=== PATIENT | female | born 1985 | race Caucasian/White ===

== ENCOUNTER 2023-04-07 09:56 | Outpatient (OUT) | payer OTHER, SELFPAY ==
[2023-04-07 11:02] LABS: Anion Gap 13.4; BUN Creatinine Ratio 9.9; Carbon Dioxide 24.7 mmol/L (21.0-32.0); Chloride 103 mmol/L (98-107); Estimated GFR (African America >60 (>=60); Estimated GFR (Non-African Ame >60 (>=60); Free T3 2.96 pg/mL (2.18-3.98); Glucose 131 mg/dL (74-106); Potassium 4.1 mmol/L (3.5-5.1); Sodium 137 mmol/L (136-145); Thyroid Stimulating Hormone 2.016 uIU/mL (0.358-3.740)
[2023-04-07 12:05] LABS: Free T4 0.93 ng/dL (0.76-1.46)
[2023-04-13 00:08] LABS: Metanephrine, Pl 24.5 pg/mL (0.0-88.0); Normetanephrine, Pl 54.8 pg/mL (0.0-210.1)
== END 2023-04-07 09:57 ==
PROVIDERS: PCP Nurse Practitioner Family; Visit Provider Internal Medicine
DX: E05.90 Thyrotoxicosis, unspecified without thyrotoxic crisis or storm (principal); R94.6 Abnormal results of thyroid function studies; R61 Generalized hyperhidrosis; R53.83 Other fatigue
CPT/HCPCS: 36415; 80048; 83519; 83835; 84439; 84443; 84481

== ENCOUNTER 2023-04-08 09:46 | Outpatient (REF) | payer OTHER, SELFPAY ==
[2023-04-08 12:29] LABS: Creatinine Urine Random 36.05 mg/dL (20.00-300.00)
[2023-04-08 12:38] LABS: Creatinine 24 Hour Urine 558.78 mg/24 hr (800.00-1800.00); Total Volume 24 Hour Urine 1550 mL/24hr
== END 2023-04-08 09:47 ==
LOC: LAB 09:46
PROVIDERS: PCP Nurse Practitioner Family; Visit Provider Nurse Practitioner Family
DX: E05.90 Thyrotoxicosis, unspecified without thyrotoxic crisis or storm (principal); R94.6 Abnormal results of thyroid function studies; R61 Generalized hyperhidrosis; R53.83 Other fatigue
CPT/HCPCS: 36415; 82570; 83497

== ENCOUNTER 2023-07-05 19:48 | Emergency (ER) | payer OTHER, SELFPAY ==
[2023-07-05 19:52] VITALS: BP 129/81; PULSE 79; RESP 16; TEMP 36.7; O2SAT 98; BMI 35.9
--- NOTE | 2023-07-05 20:07 | ECG_ITS ---
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
--- NOTE | 2023-07-05 20:08 | ED_ITS ---
HPI - General Adult General Chief complaint: Extremity Injury, Upper Stated complaint: upper pain Time Seen by Provider: 07/05/23 19:52 Source: patient Mode of arrival: walk-in History of Present Illness HPI narrative: patient is a 38-year-old female who presents to the emergency department for the evaluation of discomfort in the left upper and lateral breast. She states she noticed after getting out of the bathtub tonight that the skin to the left upper and outer breast felt like a wire and she feels the skin is puckered of the breast. She has not had any redness, swelling, drainage. No fevers or vomiting. She states the pain extends through the breast, onto the muscle of the chest. 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 no medications taken prior to arrival. She denies any significant pain. Related Data Previous Rx's Medication Instructions Recorded ketorolac 10 mg tablet 10 mg PO TID PRN pain #10 tabs 07/05/23 Allergies Allergy/AdvReac Type Severity Reaction Status Date / Time adhesive tape Allergy Severe Verified 07/05/23 19:58 Review of Systems ROS Constitutional Denies: fever or chills Ears, nose, mouth, and throat Denies: throat pain Cardiovascular Denies: chest pain Respiratory Denies: shortness of breath or cough Gastrointestinal Denies: nausea or vomiting Musculoskeletal Denies: neck pain Integumentary/Breast Denies: rash Endocrine Denies: excessive urination Hematologic/Lymphatic Denies: easy bruising Exam Narrative Exam Narrative: Gen.: Awake, alert, in no distress Head: Normocephalic, atraumatic ENT: Moist mucous membranes Respiratory: No respiratory distress; left breast examined with no erythema, induration. No palpable masses or visible puckering of the skin. No tenderness to palpation, no rashes or color change noted under the left breast on the chest wall. Extremities: Moves extremities equally Psych: Normal mood and affect Neuro: No focal neuro deficit Skin: Warm, dry, intact Constitutional Vital Signs, click to edit/add: Last Vital Signs Temp 98.0 F 07/05/23 19:52 Pulse 79 07/05/23 19:52 Resp 16 07/05/23 19:52 BP 129/81 07/05/23 19:52 Pulse Ox 98 07/05/23 19:52 O2 Del Method Room Air 07/05/23 19:52 Course Vital Signs Vital signs: Vital Signs Temperature 98.0 F 07/05/23 19:52 Pulse Rate 79 07/05/23 19:52 Respiratory Rate 16 07/05/23 19:52 Blood Pressure 129/81 07/05/23 19:52 Pulse Oximetry 98 07/05/23 19:52 Oxygen Delivery Method Room Air 07/05/23 19:52 Temperature 98.0 F 07/05/23 19:52 Pulse Rate 79 07/05/23 19:52 Respiratory Rate 16 07/05/23 19:52 Blood Pressure 129/81 07/05/23 19:52 Pulse Oximetry 98 07/05/23 19:52 Oxygen Delivery Method Room Air 07/05/23 19:52 Medical Decision Making MDM Narrative Medical decision making narrative: patient with unremarkable EKG and lab work. Examination of breast tissue with no evidence of puckering or mastitis at this time. As patient was diagnosed with mondor's disease in the past similarly, I will start her on anti-inflammatories in case she has developed a superficial thrombophlebitis. She was made aware that if she continues to have abnormal sensation or puckering of the left breast, she needs close follow-up with her PCP her mechanical unit repairer to have a mammogram performed. Return to the Emergency Room if symptoms change or worsen Medical Records Medical records reviewed: Yes I reviewed the patient's medical records Lab Data Lab results reviewed: Yes I reviewed the patient's lab results Labs: Lab Results 07/05/23 Range/Units 20:14 WBC 9.5 (4.0-11.0) 10^3/uL RBC 4.77 (4.20-5.40) 10^6/uL Hgb 13.9 (12.0-16.0) g/dL Hct 41.0 (36.0-48.0) % MCV 86.0 (81.0-99.0) fL MCH 29.1 (26.7-34.0) pg MCHC 33.9 (29.9-35.2) g/dL RDW 12.8 (11.0-15.0) % Plt Count 224 (150-450) 10^3/uL MPV 10.5 (9.5-13.5) fL Neut % (Auto) 51.9 (43.0-75.0) % Lymph % (Auto) 40.5 (20.5-60.0) % [place] % (Auto) 5.9 (1.7-12.0) % Eos % (Auto) 1.1 (0.9-7.0) % Baso % (Auto) 0.4 (0.2-2.0) % Neut # (Auto) 4.9 (1.4-6.5) 10^3/uL Lymph # (Auto) 3.8 (1.2-3.8) 10^3/uL [place] # (Auto) 0.6 (0.3-0.8) 10^3/uL Eos # (Auto) 0.1 (0.0-0.7) 10^3/uL Baso # (Auto) 0.0 (0.0-0.1) 10^3/uL Abs Immat Gran (auto) 0.02 (0.00-0.03) 10^3/uL Imm/Tot Granulo (auto) 0.2 (0.0-0.5) % Sodium 140 (136-145) mmol/L Potassium 3.7 (3.5-5.1) mmol/L Chloride 104 (98-107) mmol/L Carbon Dioxide 24.0 (21.0-32.0) mmol/L Anion Gap 15.7 BUN 12.0 (7.0-18.0) mg/dL Creatinine 0.84 (0.55-1.02) mg/dL Est GFR ( Amer) >60 (>=60) Est GFR (Non-Af Amer) >60 (>=60) BUN/Creatinine Ratio 14.3 Glucose 115 H (74-106) mg/dL Calcium 9.4 (8.5-10.1) mg/dL Total Bilirubin 0.3 (0.2-1.0) mg/dL AST 14 L (15-37) U/L ALT 34 (14-59) U/L Alkaline Phosphatase 90 (46-116) U/L Troponin I High Sens <4.0 L (4.0-51.3) pg/mL Total Protein 7.2 (6.4-8.2) g/dL Albumin 3.8 (3.4-5.0) g/dL Globulin 3.4 g/dL Albumin/Globulin Ratio 1.1 ECG Data Attestation: I personally reviewed and interpreted this ECG as follows: (normal sinus rhythm at a rate of seventy-eight, no acute ST elevation or ectopy. EKG reviewed by attending physician) Discharge Plan Discharge Chief Complaint: Extremity Injury, Upper Clinical Impression: Breast pain, left Patient Disposition: Home, Self-Care Time of Disposition Decision: 21:06 Condition: Good Prescriptions / Home Meds: New ketorolac 10 mg tablet 10 mg PO TID PRN (Reason: pain) Qty: 10 0RF Additional Instructions: Take antiinflammatories and follow up with your PCP or mechanical unit repairer Stand Alone Forms: Portal Instructions Referrals: CONCHITA ORTIZ [Primary Care Provider] - 1 week Discharge Date/Time: 07/05/23 21:18
--- NOTE | 2023-07-05 20:09 | PC.NURSE ---
pt presents to ED because pt states 10 years ago she had something called mondors but was at the time so they didn't do anything to treat it. pt states that today she felt a wire like feeling across the left side of the left breast, and pt states it looks similar to when she had mondors. pt doesn't have yearly mammograms done. no bruising, swelling, or redness noted to the left breast.
[2023-07-05 20:25] LABS: Basophils Percent Auto 0.4 % (0.2-2.0); Eosinophils Absolute Auto 0.1 10^3/uL (0.0-0.7); Eosinophils Percent Auto 1.1 % (0.9-7.0); Hemoglobin 13.9 g/dL (12.0-16.0); Immature Granulocytes Abs Auto 0.02 10^3/uL (0.00-0.03); Immature Granulocytes Pct Auto 0.2 % (0.0-0.5); Lymphocytes Absolute Auto 3.8 10^3/uL (1.2-3.8); Lymphocytes Percent Auto 40.5 % (20.5-60.0); Mean Corpuscular HGB Conc 33.9 g/dL (29.9-35.2); Mean Corpuscular Hemoglobin 29.1 pg (26.7-34.0); Mean Platelet Volume 10.5 fL (9.5-13.5); Monocytes Absolute Auto 0.6 10^3/uL (0.3-0.8); Monocytes Percent Auto 5.9 % (1.7-12.0); Neutrophils Absolute Auto 4.9 10^3/uL (1.4-6.5); Neutrophils Percent Auto 51.9 % (43.0-75.0); Platelet Count 224 10^3/uL (150-450); Red Blood Count 4.77 10^6/uL (4.20-5.40); Red Cell Distribution Width 12.8 % (11.0-15.0); White Blood Count 9.5 10^3/uL (4.0-11.0)
[2023-07-05 20:52] LABS: Alanine Aminotransferase 34 U/L (14-59); Albumin Globulin Ratio 1.1; Albumin Level 3.8 g/dL (3.4-5.0); Alkaline Phosphatase 90 U/L (46-116); Anion Gap 15.7; Aspartate Amino Transferase 14 U/L (15-37); BUN Creatinine Ratio 14.3; Bilirubin Total 0.3 mg/dL (0.2-1.0); Calcium 9.4 mg/dL (8.5-10.1); Chloride 104 mmol/L (98-107); Estimated GFR (African America >60 (>=60); Estimated GFR (Non-African Ame >60 (>=60); Globulin 3.4 g/dL; Glucose 115 mg/dL (74-106); Potassium 3.7 mmol/L (3.5-5.1); Sodium 140 mmol/L (136-145); Total Protein 7.2 g/dL (6.4-8.2); Troponin I High Sensitivity <4.0 pg/mL (4.0-51.3)
== END 2023-07-05 21:18 | disposition home or self-care (01) ==
PROVIDERS: Physician Assistant; Emergency Provider Internal Medicine; PCP Nurse Practitioner Family
DX: N64.4 Mastodynia (principal); Z90.710 Acquired absence of both cervix and uterus; I80.8 Phlebitis and thrombophlebitis of other sites
CPT/HCPCS: 36415; 80053; 84484; 85025; 93005; 99284

== ENCOUNTER 2023-07-11 08:56 | Outpatient (OUT) | payer OTHER, SELFPAY ==
--- NOTE | 2023-07-11 09:08 | US_ITS ---
Patient: NOBLE CASTILLO Exam Date: 07/11/2023 : 1985 Gender:F Ordering : CONCHITA ORTIZ Admission #: [id number] Family : Order #: [id number] CLICK HERE TO VIEW EXAM RADIOLOGY REPORT PROCEDURE: US BREAST LT LIMITED COMPARISON: None. INDICATIONS: Mass Of Upper Outer Quadrant Of Left Breast N63.21 TECHNIQUE: Breast ultrasound was performed, with evaluation focusing only on specific areas of concern. FINDINGS: DIAGNOSTIC CATEGORY 0--INCOMPLETE: NEED ADDITIONAL IMAGING EVALUATION. Ultrasound of the left breast demonstrates normal fibroglandular tissue. Identified in the lower outer quadrant just below the skin surface is a 2.0 x 0.2 cm oval irregular area of hypo echogenicity without definitive color flow. This could represent a dilated duct. Bilateral diagnostic mammogram is recommended for further evaluation RECOMMENDATIONS: ADDITIONAL MAMMOGRAPHIC VIEWS REQUIRED: BILATERAL BREASTS - diagnostic mammogram PLEASE NOTE: A NORMAL ULTRASOUND EXAMINATION DOES NOT EXCLUDE THE POSSIBILITY OF BREAST CANCER. A CLINICALLY SUSPICIOUS PALPABLE LUMP SHOULD BE BIOPSIED. Dictated by: Kit Samuels MD on 07/11/2023 at 10:41 Approved by: Kit Samuels MD on 07/11/2023 at 10:43
== END 2023-07-11 08:57 | disposition home or self-care (01) ==
LOC: US 08:56
PROVIDERS: PCP Nurse Practitioner Family; Visit Provider Nurse Practitioner Family
DX: N63.21 Unspecified lump in the left breast, upper outer quadrant (principal)
CPT/HCPCS: 76642

== ENCOUNTER 2023-07-13 10:45 | Outpatient (OUT) | payer OTHER, SELFPAY ==
--- NOTE | 2023-07-13 | MM_ITS ---
Patient: NOBLE CASTILLO Exam Date: 07/13/2023 : 1985 Gender:F Ordering : CONCHITA ORTIZ Admission #: [id number] Family : Order #: [id number] CLICK HERE TO VIEW EXAM RADIOLOGY REPORT PROCEDURE: MM TOMOSYNTHESIS DIAGNOSTIC BI COMPARISON: US BREAST LT LIMITED, 07/11/2023. INDICATIONS: Breast Mass Calculator Name NCI Breast Cancer Risk Assessment Tool 5 Year Breast Cancer Risk 0.40% Lifetime Breast Cancer Risk 9.20% Personal Breast Cancer No Personal Ovarian Cancer No Treatments None Family Cancers Mother with cervical cancer at age 35; Mother with lung cancer at age 53; Aunt-maternal with cervical cancer at age ~35. LOCATION: The [facility] BREAST COMPOSITION: Scattered areas fibroglandular density. FINDINGS: DIAGNOSTIC CATEGORY 2--BENIGN FINDING: Scattered benign-appearing calcifications are present. Scattered benign-appearing lymph nodes are present. RIGHT BREAST: No significant suspicious finding. LEFT BREAST: No significant suspicious finding. No mammographic abnormality to correspond to the patient's palpable abnormality demarcated with a triangle marker lower outer quadrant, anterior breast. Previous ultrasound demonstrated no abnormality in this region. Further evaluation should be based on clinical and physical exam. RECOMMENDATIONS: CLINICAL EVALUATION. PLEASE NOTE: A NORMAL MAMMOGRAM DOES NOT EXCLUDE THE POSSIBILITY OF BREAST CANCER. A CLINICALLY SUSPICIOUS PALPABLE LUMP SHOULD BE BIOPSIED. Dictated by: Kit Samuels MD on 07/13/2023 at 11:29 Approved by: Kit Samuels MD on 07/13/2023 at 11:36
== END 2023-07-13 10:46 | disposition home or self-care (01) ==
LOC: MAMMO 10:45
PROVIDERS: PCP Nurse Practitioner Family; Visit Provider Nurse Practitioner Family
DX: N63.21 Unspecified lump in the left breast, upper outer quadrant (principal)
CPT/HCPCS: 77066; G0279

== ENCOUNTER 2023-07-23 15:36 | Emergency (ER) | payer OTHER, SELFPAY ==
[2023-07-23 15:41] VITALS: BP 127/74; PULSE 74; RESP 16; TEMP 36.6; O2SAT 97; BMI 36.0
--- NOTE | 2023-07-23 15:49 | ED.FEMALEGU1 ---
HPI - Female Genitourinary General Chief complaint: Urogenital-Female Stated complaint: YEAST INFECTION Time Seen by Provider: 07/23/23 15:36 Source: patient Mode of arrival: walk-in History of Present Illness HPI Narrative: patient is a 38-year-old female who presents to the emergency department for yeast infection. She states that she finished doxycycline earlier this week and developed irritation and discharge of the vaginal area. She has had similar yeast infections in the past. She states typically clears up with Monistat, she has tried this twice without improvement. She is not concern for STD exposure. She denies fevers, chills, nausea, vomiting, abdominal pain. No urinary symptoms. Related Data Previous Rx's Medication Instructions Recorded ketorolac 10 mg tablet 10 mg PO TID PRN pain #10 tabs 07/05/23 fluconazole 150 mg tablet 150 mg PO DAILY 2 days #2 tabs 07/23/23 (Diflucan) Allergies Allergy/AdvReac Type Severity Reaction Status Date / Time adhesive tape Allergy Severe Verified 07/05/23 19:58 Review of Systems ROS Constitutional Denies: fever or chills Cardiovascular Denies: chest pain Respiratory Denies: shortness of breath or cough Gastrointestinal Denies: abdominal pain, nausea or vomiting Musculoskeletal Denies: back pain Integumentary/Breast Denies: rash Hematologic/Lymphatic Denies: easy bruising Exam Narrative Exam Narrative: Gen.: Awake, alert, in no distress Head: Normocephalic, atraumatic ENT: Moist mucous membranes Respiratory: No respiratory distress Gastrointestinal: Abdomen is soft, nondistended and nontender to palpation Extremities: Moves extremities equally Psych: Normal mood and affect Neuro: No focal neuro deficit Skin: Warm, dry, intact Constitutional Vital Signs, click to edit/add: Last Vital Signs Temp 97.8 F 07/23/23 15:41 Pulse 74 07/23/23 15:41 Resp 16 07/23/23 15:41 BP 127/74 07/23/23 15:41 Pulse Ox 97 07/23/23 15:41 O2 Del Method Room Air 07/23/23 15:41 Course Vital Signs Vital signs: Vital Signs Temperature 97.8 F 07/23/23 15:41 Pulse Rate 74 07/23/23 15:41 Respiratory Rate 16 07/23/23 15:41 Blood Pressure 127/74 07/23/23 15:41 Pulse Oximetry 97 07/23/23 15:41 Oxygen Delivery Method Room Air 07/23/23 15:41 Temperature 97.8 F 07/23/23 15:41 Pulse Rate 74 07/23/23 15:41 Respiratory Rate 16 07/23/23 15:41 Blood Pressure 127/74 07/23/23 15:41 Pulse Oximetry 97 07/23/23 15:41 Oxygen Delivery Method Room Air 07/23/23 15:41 MDM - Female Genitourinary MDM Narrative Medical decision making narrative: patient treated based on clinical history, Diflucan given in the Emergency Room patient will be prescribed an additional two days of Diflucan. Follow-up with PCP and return to the Emergency Room if symptoms change or worsen Medical Records Attestation: I reviewed the patient's medical records. Discharge Plan Discharge Chief Complaint: Urogenital-Female Clinical Impression: Candidiasis of vagina Patient Disposition: Home, Self-Care Time of Disposition Decision: 15:48 Condition: Good Prescriptions / Home Meds: New fluconazole [Diflucan] 150 mg tablet 150 mg PO DAILY 2 Days Qty: 2 0RF Rx Instructions: administer on day 1 of therapy No Action ketorolac 10 mg tablet 10 mg PO TID PRN (Reason: pain) Qty: 10 0RF Instructions: Yeast Infection (ED) Stand Alone Forms: Portal Instructions Referrals: CONCHITA ORTIZ [Primary Care Provider] - 1 week
[2023-07-23] MEDS: FLUCONAZOLE 150 MG TABLET PO (15:56)
[2023-07-23 16:01] VITALS: BP 109/70; PULSE 76; RESP 16; O2SAT 99
== END 2023-07-23 16:04 | disposition home or self-care (01) ==
PROVIDERS: Emergency Provider Emergency Medicine; PCP Nurse Practitioner Family
DX: B37.31 Acute candidiasis of vulva and vagina (principal)
CPT/HCPCS: 99283

== ENCOUNTER 2023-09-28 10:21 | Outpatient (OUT) | payer OTHER, SELFPAY ==
--- NOTE | 2023-09-28 | XR_ITS ---
The [address] [address] Patient Name: NOBLE CASTILLO MRN: [facility]:[id number] date: 1985 Sex: F Assigned Patient Location: [facility] Current Patient Location: Accession/Order Number: [id number] Exam Date: 09/28/2023 10:28 Report Date: 09/30/2023 09:58 At the request of: FABIENNE WALL Procedure: XR foot AIDA min 3V STUDY: XR foot AIDA min 3V, [id number] HISTORY: BILATERAL FOOT PAIN COMPARISON: Bilateral foot x-rays 07/07/2022. FINDINGS: Right foot: No acute fracture, dislocation, or suspicious osseous lesion. 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 First metatarsophalangeal angle (normal less than or equal to 15 degrees) -18 degrees Calcaneal pitch angle (normal 20-30 degrees): -21 degrees (previously 13 degrees on 07/07/2022). Left foot: No acute fracture, dislocation, or suspicious osseous lesion. Left foot podiatric hardware is intact and similar alignment compared with 07/07/2021. Lucency at the bone hardware interface involving a transmetatarsal screw extending across the bases of the first and second metatarsal is similar. There is complete bony bridging at the calcaneal arthrodesis. Increased bony bridging at the first tarsometatarsal joint (difficult to tell if the ankylosis is complete). Moderate osteophytosis at the dorsal talonavicular joint, mildly worse. Moderate Achilles insertional enthesopathy, similar. First metatarsophalangeal angle (normal less than or equal to 15 degrees) -28 degrees Calcaneal pitch angle (normal 20-30 degrees): -20 degrees IMPRESSION: 1. Similar appearance of the left foot hardware. 2. Increased bony bridging at the fused left first tarsometatarsal joint. 3. Left sided hallux valgus and a borderline pes planus. 4. Mild right-sided hallux valgus and borderline pes planus. The calcaneal pitch angle of the right foot is substantially improved compared with 07/07/2022. 5. 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 6. Mildly worsening osteophytosis at the left dorsal talonavicular joint. Electronically authenticated by: LIBBY GERONIMO Date: 09/30/2023 09:58
== END 2023-09-28 10:22 | disposition home or self-care (01) ==
LOC: RAD 10:21
PROVIDERS: PCP Nurse Practitioner Family; Visit Provider Podiatrist Foot & Ankle Surgery
DX: M79.671 Pain in right foot (principal); M79.672 Pain in left foot
CPT/HCPCS: 73630

== ENCOUNTER 2023-10-12 08:15 | Outpatient (OUT) | payer OTHER, SELFPAY ==
--- NOTE | 2023-10-12 08:23 | MR_ITS ---
[address] [address] Patient Name: NOBLE CASTILLO MRN: [facility]:[id number] date: 1985 Sex: F Assigned Patient Location: MRI Current Patient Location: MRI Accession/Order Number: [id number] Exam Date: 10/12/2023 08:34 Report Date: 10/12/2023 12:58 At the request of: FABIENNE WALL Procedure: MR ankle RT wo con EXAM: MR ankle RT wo con HISTORY: Peroneal Tendinitis. Chronic right lateral ankle pain with new onset of lateral ankle swelling. COMPARISON: Foot x-rays from 09/28/2023. TECHNIQUE: Multiplanar and multisequence imaging of the right ankle was performed without contrast. FINDINGS: No acute fracture or dislocation is evident. The distal tibia and fibula are intact. There is no OCD lesion involving the talar dome. No calcaneal stress fracture is evident. There is an irregular broadened articulation at the middle facet of the subtalar joint medially. 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 There is bone marrow edema in the adjacent talus and to lesser extent calcaneus suspicious for reactive edema or mild stress response. Mild degenerative change involves the calcaneocuboid joint and talonavicular joint with joint space narrowing and mild spurring. The tarsometatarsal alignment is grossly anatomic. No focal tear of the Lisfranc ligament is identified. The Achilles tendon is intact with a normal insertion onto the calcaneus posteriorly. There is flattening and fraying of the retromalleolar portion of the peroneus brevis tendon with a suspected short segment split tear seen at the distal tip of the fibula seen on oblique fat-saturated proton density images 9 and 10. The peroneus longus is intact. Flexor and extensor tendons appear intact including the posterior tibialis tendon. A small amount of fluid tracks along the posterior tibialis tendon. No acute ligament tear is evident. There is no cystic or solid mass in the region of the tarsal tunnel. There is no acute abnormality involving the plantar fascia. MR/MR ankle RT wo con IMPRESSION: 1. There is flattening and fraying of the retromalleolar portion of the peroneus brevis with a suspected short segment split tear of the peroneus brevis at the level of the distal tip of the fibula seen two of the axial oblique fat-saturated proton density images. 2. 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 3. No acute fracture or talar OCD lesion. 4. No acute ligament tear. 5. A small amount of fluid tracks along the posterior tibialis tendon suggesting mild tenosynovitis. Electronically authenticated by: GERALDINE CHAUHAN Date: 10/12/2023 12:58
== END 2023-10-12 08:16 | disposition home or self-care (01) ==
LOC: MRI 08:15
PROVIDERS: PCP Nurse Practitioner Family; Visit Provider Podiatrist Foot & Ankle Surgery
DX: M76.71 Peroneal tendinitis, right leg (principal); M19.071 Primary osteoarthritis, right ankle and foot
CPT/HCPCS: 73721

== ENCOUNTER 2023-10-26 20:19 | Outpatient (REF) | payer OTHER, SELFPAY ==
--- OUTSIDE RECORDS SUMMARY | 2023-10-26 20:23 | XMS_ITS | CCD ---
Author Name Unknown Address [address] [place] [address] Organization [facility] Care Team Providers Care Senior Caregiver Name Role Phone Eric ([facility])Kit Attending Provider Dewayne James Attending Provider Ame Ortiz Primary Care Provider Costa Armando Attending Provider Christiana Martel Unavailable Sera Lares Unavailable Ame Ortiz Unavailable KRISTIN Ortiz Attending Provider NO FAMILY, PHYSICIAN Primary Care Provider Unava ilable Debra Celestin Unavailable Marleni Jordan Unavailable NO FAMILY, PHYSICIAN Primary Care Provider Unava ilable KRISTIN Ortiz Attending Provider [phone] DO Lambert Gavin Attending Provider [phone] KRISTIN Ortiz Primary Care Provider NO FAMILY, PHYSICIAN Primary Care Provider Unava ilable KRISTIN Ortiz Attending Provider KRISTIN Ortiz Primary Care Provider DO Lambert Gavin Attending Provider [phone] MD Alexis Lincoln Attending Provider Ame Ortiz Attending Unavailable Ame Ortiz Admitting Unavailable Alexis Lincoln Admitting Unavailable Alexis Lincoln Attending Unavailable Nik, Ame Primary Care Unavailable Lambert Gavin Admitting UnavailLambert Adams Attending Unavailabl e Nik, Ame Primary Care Unavailable CONOR BEAL Primary Care Physician AME ORTIZ Attending Unavailable NIK, AME Admitting Unavailable JANICE Mantilla, FARHEEN Attending Unavailable JANICE Mantilla, FARHEEN Admitting Unavailable Donald Cannon Consulting Unavailable NIK, AME Primary Care Unavailable JANICE ., FARHEEN Consulting Unavailable MISC, DR GUERRERO Admitting Unavailable MISC, DR GUERRERO Consulting Unavailable NIK, AME Primary Care Unavailable MISC, DR GUERRERO Attending Unavailable NIK, AME Admitting Unavailable NIK, AME Primary Care Unavailable NIK, AME Consulting Unavailable NIK, AME Attending Unavailable NADERER, DR CONOR Medina Primary Care Unavailable HIGHLANDER, FABIENNE Mahajan Attending Unavailable JORGE L, DR RAFAEL Mattson Consulting Unavailable HIGHLANDERFABIENNE Admitting Unavailable HIGHLANDER, FABIENNE Mahajan Consulting Unavailable NIK, AME Primary Care Unavailable HIGHLANDER, FABIENNE Mahajan Admitting Unavailable HIGHLANDER, FABIENNE Mahajan Attending Unavailable JORGE L, DR RAFAEL Mattson Consulting Unavailable HIGHLANDER, FABIENNE Mahajan Consulting Unavailable BRITNI GRANT Admitting Unavailable NADERER, DR CONOR Medina Primary Care Unavailable BRITNI GRANT Attending Unavailable NIK, AME Primary Care Unavailable HIGHLANDER, FABIENNE Mahajan Admitting Unavailable HIGHLANDER, FABIENNE Mahajan Attending Unavailable Cong Cobian Admitting Unavailable Nik, Ame Primary Care Unavailable Cong Cobian Attending Unavailable Nik, Ame Primary Care Unavailable Nik, Ame Primary Care Unavailable Abhi Finney Attending Unavailable Abhi Finney Admitting Unavailable Nik, Ame Primary Care Unavailable Ml Chisholm Unavailable Unavailable Unavailable Unavailable Allergies Allergy Classification Reported Allergen(s) Allergy Type Date of Onset Reaction(s) Facility (6 sources) Adhesive Tape; 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: [Adhesive tape] Allergy to substance 4 Rash/itching [facility] (4 sources) paper tape Allergy to substance 1 Rash/itching [facility] (16 sources) Codeine; 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: [codeine] Drug Allergy Unknown (qualifier value) [facility] (13 sources) Povidone-Iodine ; 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: [povidone iodine topical] Drug Allergy Unknown (qualifier value) [facility] (13 sources) bandaids Propensity to adverse reactions rash [facility] [employer] Other (13 sources) Polyester Propensity to adverse reactions rash [facility] [employer] Other (5 sources) Povidone-Iodine ; 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: [Betadine] Drug Allergy 2 itchy rash [facility] Rep[facility] (2 sources) Adhesive bandage; 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: [Adhesive Bandage] Drug allergy Unknown (qualifier value) [facility] (2 sources) Codeine Drug Allergy 2 [facility] Repository (1 source) Adhesive Tape; 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: [Tape] Propensity to adverse reactions to drug (disorder) [facility] Repository Medications Current Medications Medication Drug Class(es) Dates Sig (Normalized) Sig (Original) Fioricet (1 source) Barbiturate, Central Nervous System Stimulant, Methylxanthine Start: 04-16-2019 Fioricet Oral, q4hr, Refill(s) 0, Headache Start Date: 04/16/19 Status: Ordered Marquita Allergy 180 MG (8 sources) take 1 tablet by mouth once daily Marquita Allergy 180 MG 1 tablet Swallow whole with water; do not take with fruit juices. Orally Once a day Active Kaopectate Reformulated May 2006 (1 source) Bismuth Start: 04-16-2019 take 524 mg by mouth four times daily Kaopectate 524 mg, Oral, QID, Refills(s) 0, Prophylaxis Start Date: 04/16/19 Status: Ordered cariprazine 3 mg oral capsule (17 sources) Atypical Antipsychotic Start: 11-25-2020 take 1 capsule by mouth once daily at bedtime Cariprazine (Vraylar) 3 mg Capsule Active 3 MG PO Daily at bedtime November 25, 2020 12:00am take 1 capsule by [facility] every twenty-four hours Vraylar 4.5 MG 1 capsule Orally Once a day Active Vraylar Active [employer] oral tablet (1 source) Start: 04-16-2019 take 1 tablet by mouth once daily [employer] oral tablet 1 tab(s), Oral, Daily, Refill(s) 0, Prophylaxis Start Date: 04/16/19 Status: Ordered fexofenadine hydrochloride 180 mg oral tablet (1 source) Histamine-1 Receptor Antagonist take 1 tablet by mouth once daily Marquita Allergy 180 MG 1 tablet Swallow whole with water; do not take with fruit juices. Orally Once a day Active hydrOXYzine (1 source) Antihistamine Start: 04-16-2019 hydrOXYzine Oral, TID, Refills(s) 0, Anxiety Start Date: 04/16/19 Status: Ordered ibuprofen 600 mg oral tablet (12 sources) Nonsteroidal Anti-inflammatory Drug Start: 11-27-2020 take 600 mg by mouth every six hours Ibuprofen Active 600 MG PO Q6H November 27, 2020 12:00am take 1 tablet by jerri th three times daily at mealtime as needed Ibuprofen 400 MG 1 tablet with food or m ilk as needed Orally Three times a day Not-Taking/PRN lamoTRIgine 150 mg oral tablet (16 sources) Mood Stabilizer, Anti-epileptic Agent Start: 11-25-2020 take 150 mg by mouth twice daily Lamotrigine Active 150 MG PO Twice daily November 25, 2020 12:00am take 1 tablet by jerri th every twenty-four hours LaMICtal 100 MG 1 tablet Orally Once a day Active take 1 tablet by jerri th every twenty-four hours lamoTRIgine 50 MG 1 tablet Orally Once a day Active take 1 tablet by jerri th every twenty-four hours lamoTRIgine 200 MG 1 tablet Orally Once a day Active Cymtquhedd-Pihoufo-Kkvmsrhej in (Folinic-Plus) 4-50-2 mg tablet (4 sources) Start: 11-25-2020 take 1 tablet by mouth once daily Ccnuxyprzs-Ridspah-Uvnczsweico (Folinic-Plus) 4-50-2 mg tablet Active 1 TAB PO Daily November 25, 2020 10:32am Start: 11-25-2020 take 1 tablet by jerri th once daily Gxkltpaddd-Gdciwkc-Qemoravmhmv (Folinic- Plus) 4-50-2 mg tablet Active 1 TAB PO Daily November 25, 2020 12:00am Start: 11-25-2020 take 1 tablet by jerri th once daily Gmugsnqkvn-Vufatyd-Tnrpeoaxurj (Folinic- Plus) 4-50-2 mg tablet Active 1 TAB PO Daily November 25, 2020 1:00am magnesium citrate (1 source) Start: 04-16-2019 take 400 mg by mouth once daily magnesium citrate 400 mg, Oral, Daily, Refill(s) 0, Prophylaxis Start Date: 04/16/19 Status: Ordered meloxicam 15 mg oral tablet (1 source) Nonsteroidal Anti-inflammatory Drug take 1 tablet by mouth every twenty-four hours Meloxicam 15 MG 1 tablet Orally Once a day Active nitroglycerin 0.004 mg/mg rectal ointment (1 source) Nitrate Vasodilator Start: 06-28-2019 Rectiv 0.4% rectal ointment 1 suraj, Rectal, q12hr, 30 gram, Refill(s) 0, [facility] [facility]. Start Date: 06/28/19 Status: Ordered Anthony-3 (1 source) Start: 04-16-2019 Anthony-3 Oral, Daily, Refill(s) 0, Prophylaxis Start Date: 04/16/19 Status: Ordered Anthony-3 Fatty Acids (Fish Oil Concentrate) 1,000 mg Capsule (4 sources) Start: 11-25-2020 take 1 capsule by mouth once daily Anthony-3 Fatty Acids (Fish Oil Concentrate) 1,000 mg Capsule Active 1000 MG PO Daily November 25, 2020 10:35am Start: 11-25-2020 take 1 capsule by [facility] once daily Anthony-3 Fatty Acids (Fish Oil Concentrate) 1,000 mg Capsule Active 1000 MG PO Daily November 25, 2020 12:00am Start: 11-25-2020 take 1 capsule by [facility] once daily Anthony-3 Fatty Acids (Fish Oil Concentrate) 1,000 mg Capsule Active 1000 MG PO Daily November 25, 2020 1:00am ondansetron 4 mg oral tablet (3 sources) Serotonin-3 Receptor Antagonist Start: 07-10-2022 take 1 tablet by mouth every eight hours as needed Zofran ODT 4 MG 1 tablet on the tongue and allow to dissolve Orally every 8 hrs as needed for 4 days Jul, Active Probiotic (13 sources) Probiotic Active Probiotic Formula (Bacillus Coagulans) (1 source) Start: 04-16-2019 take 1 capsule by mouth once daily Probiotic Formula (Bacillus Coagulans) 1 cap(s), Oral, Daily, Refill(s) 0, Prophylaxis Start Date: 04/16/19 Status: Ordered rizatriptan 10 mg disintegrating oral tablet (18 sources) Serotonin-1b and Serotonin-1d Receptor Agonist Start: 04-16-2019 take 1 tablet by mouth once daily Rizatriptan Benzoate 10 MG 1 tablet Orally Once a day may repeat once 2 hours later Jan, Active sertraline 100 mg oral tablet (17 sources) Serotonin Reuptake Inhibitor Start: 11-25-2020 take 100 mg by mouth once daily in the morning Sertraline Active 100 MG PO Every morning November 25, 2020 12:00am take [address] [facility] every twenty-four hours Sertraline HCl 100 MG 2 tablets Orally Once a day Active Sertraline HCl A ctive topiramate 25 mg oral tablet (1 source) Start: 04-16-2019 take 1 tablet by mouth twice daily Topamax 25 mg Tab 25 mg = 1 tab(s), Oral, BID, Refills(s) 0, Migraine headache Start Date: 04/16/19 Status: Ordered traMADol hydrochloride 50 mg oral tablet (3 sources) Opioid Agonist Start: 11-27-2020 take 50 mg by mouth every six hours Tramadol Active 50 MG PO Q6H 20 5 November 27, 2020 12:00am traZODone hydrochloride 50 mg oral tablet (4 sources) Serotonin Reuptake Inhibitor Start: 11-25-2020 take 50 mg by mouth once daily at bedtime Trazodone Active 50 MG PO Daily at bedtime November 25, 2020 12:00am Tri Femynor (1 source) Start: 04-16-2019 take 1 tablet by mouth once daily Tri Femynor 1 tab(s), Oral, Daily, Refill(s) 0, control/menstrual regulation Start Date: 04/16/19 Status: Ordered Vitamin D3-Vitamin K2 (Dosoquin) 5,500-200 unit-mcg Tablet (4 sources) Start: 11-25-2020 take 1 tablet by mouth once daily Vitamin D3-Vitamin K2 (Dosoquin) 5,500-200 unit-mcg Tablet Active 1 TAB PO Daily November 25, 2020 10:35am Start: 11-25-2020 take 1 tablet by jerri th once daily Vitamin D3-Vitamin K2 (Dosoquin) 5,500-200 unit-mcg Tablet Active 1 TAB PO Daily November 25, 2020 12:00am Start: 11-25-2020 take 1 tablet by jerri th once daily Vitamin D3-Vitamin K2 (Dosoquin) 5,500-200 unit-mcg Tablet Active 1 TAB PO Daily November 25, 2020 1:00am Completed/Discontinued Medications Medication Drug Class(es) Dates Sig (Normalized) Sig (Original) [id number] 200 actuat albuterol 0.09 mg/actuat metered dose inhaler (4 sources) beta2-Adrenergic Agonist Start: 08-22-2021 take 2 puff(s) by inhalation every four to six hours as needed Albuterol Sulfate HFA 108 (90 Base) MCG/ACT 2 puffs as needed Inhalation every 4-6 hours for 14 days Jul, Not-Taking Start: 08-22-2021 take 2 puff(s) by in halation every four to six hours as needed Albuterol Sulfate HFA 108 (90 Base) MCG/ACT 2 puffs as needed Inhalation every 4-6 hours for 14 days Jul, Not-Taking amoxicillin 875 mg / clavulanate 125 mg oral tablet (2 sources) Penicillin-class Antibacterial Start: 08-10-2023 take 1 tablet by mouth every twelve hours Amoxicillin-Pot Clavulanate 875-125 MG 1 tablet Orally every 12 hrs for 10 day(s) Jul, Not-Taking/PRN benzonatate 100 mg oral capsule (4 sources) Non-narcotic Antitussive Start: 08-22-2021 take 1 capsule by mouth three times daily as needed Tessalon Perles 100 MG 1 capsule as needed Orally Three times a day for 7 days Jul, Not-Taking cefuroxime 500 mg oral tablet (5 sources) Cephalosporin Antibacterial Start: 05-24-2022 take 1 tablet by mouth every twelve hours Cefuroxime Axetil 500 MG 1 tablet Orally every 12 hrs for 7 days Apr, Not-Taking cholecalciferol 0.025 mg oral tablet (1 source) Vitamin D Start: 04-16-2019 take 1 tablet by mouth once daily cholecalciferol 1000 intl units oral tablet 1,000 International_Unit = 1 tab(s), Oral, Daily, # 30 tab(s), Refills(s) 0, Prophylaxis Start Date: 04/16/19 Status: Ordered Glucometer Device (5 sources) Start: 09-02-2022 Glucometer Device as directed as directed as directed for as directed Aug, Not-Taking/PRN Start: 09-02-2022 Glucometer Dev ice as directed as directed as directed for as directed Aug, Not-Taking Start: 09-02-2022 Glucometer Dev ice as directed as directed as directed for as directed Aug, Active methylPREDNISolone 4 mg oral tablet (9 sources) Corticosteroid Start: 05-24-2022 methylPREDNISo lone 4 MG as directed Orally Once a day for 6 days Apr, Not-Taking Start: 08-22-2021 Medrol (Wali) 4 MG as directed Orally for daily dose take half with breakfast half with dinner for 6 days Jul, Not-Taking phenazopyridine hydrochloride 200 mg oral tablet (5 sources) Start: 05-24-2022 take 1 tablet by mouth every eight hours Pyridium 200 MG 1 tablet after meals Orally Three times a day for 2 day(s) Apr, Not-Taking predniSONE 20 mg oral tablet (5 sources) Start: 08-10-2023 take 1 tablet by mouth every twelve hours predniSONE 20 MG 1 tablet Orally bid for 5 day(s) Jul, Not-Taking/PRN predniSONE Activ e 1 ml promethazine hydrochloride 25 mg/ml injection (7 sources) Phenothiazine Start: 07-10-2022 Promethazine H Cl Jul, 25 mg Toradol 30 mg/ml (7 sources) Start: 07-10-2022 Toradol 30 mg/ ml Jul, 60 mg triamcinolone acetonide 1 mg/ml topical cream (14 sources) Corticosteroid Start: 05-24-2022 Triamcinolone Acetonide 0.1 % 1 application to affected area Externally Twice a day for 5 days Apr, Not-Taking take 1 spray(s) nasal route once daily Nasacort Allergy 24HR 55 MCG/ACT 1 spray in each nostril Nasally Once a day Active take 1 spray(s) nasal route once daily Nasacort Allergy 24HR 55 MCG/ACT 1 spray in each nostril Nasally Once a day Active Problems Active Problems Problem Classification Problem Date Documented Da te Episodic/Chronic Anxiety disorders (6 sources) Anxiety; 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: [Anxiety disorder, unspecified] Onset: 2 Chronic Calculus of urinary tract (1 source) Kidney stone 04-16-2019 Episodic Conditions associated with dizziness or vertigo (1 source) Dizziness and giddiness Episodic Disorders of lipid metabolism (3 sources) Hypertriglyceridemia; 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: [Pure hyperglyceridemia] Chronic Disorders of teeth and jaw (1 source) Unspecified temporomandibular joint disorder, unspecified side Episodic Esophageal disorders (6 sources) Gastroesophageal reflux disease; 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: [Gastro-esophageal reflux disease without esophagitis] Onset: 2 Chronic Headache; including migraine (20 sources) Migraine aura without headache ; 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: [Migraine with aura, not intractable, without status migrainosus] Onset: 2 Resolved: 2 Chronic Malaise and fatigue (15 sources) Fatigue; 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: [Chronic fatigue, unspecified] Onset: 2 Chronic Mood disorders (13 sources) Bipolar disorder; 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: [Bipolar disorder, unspecified] Onset: 2 Chronic Nutritional deficiencies (15 sources) Vitamin D deficiency; 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: [Vitamin D deficiency, unspecified] Onset: 2 Chronic Osteoarthritis (4 sources) Primary osteoarthritis, right ankle and foot; 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: [PRIMARY OSTEOARTHRITIS RT ANK FOOT] Onset: 3 Chronic Other endocrine disorders (13 sources) Polycystic ovary syndrome; 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: [Polycystic ovarian syndrome] Chronic Other endocrine disorders (5 sources) Polycystic ovarian syndrome; 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: [POLYCYSTIC OVARIAN SYNDROME] Onset: 2 Chronic Other endocrine disorders (1 source) Hypoglycemia 04-16-2019 Chronic Other gastrointestinal disorders (4 sources) Irritable bowel syndrome; 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: [Irritable bowel syndrome without diarrhea] Chronic Other gastrointestinal disorders (2 sources) Irritable bowel syndrome without diarrhea; 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: [IRRITABLE BOWEL SYND W/O DIARRHEA] Onset: 2 Chronic Other gastrointestinal disorders (1 source) Heartburn 04-16-2019 Episodic Other nervous system disorders (3 sources) Acute postoperative pain; 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: [Other acute postprocedural pain] 11-27-2020 Episodic Other nutritional; endocrine; and metabolic disorders (4 sources) Lactose intolerance; 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: [Lactose intolerance, unspecified] Chronic Other nutritional; endocrine; and metabolic disorders (4 sources) Obesity; 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: [Obesity, unspecified] Chronic Other nutritional; endocrine; and metabolic disorders (2 sources) Obesity, unspecified; 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: [OBESITY UNSPECIFIED] Onset: 2 Chronic Other nutritional; endocrine; and metabolic disorders (2 sources) Lactose intolerance, unspecified; 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: [LACTOSE INTOLERANCE UNSPECIFIED] Onset: 2 Chronic Other nutritional; endocrine; and metabolic disorders (5 sources) H/O: endocrine disorder; 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: [Personal history of other endocrine, nutritional and metabolic disease] Episodic Other upper respiratory infections (1 source) Acute sinusitis, unspecified Episodic Unclassified (2 sources) LOW BACK PAIN, UNSPECIFIED; 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: [LOW BACK PAIN, UNSPECIFIED] Onset: 2 Past or Other Problems Problem Classification Problem Date Documented Date Episodic/Chronic Allergic reactions (1 source) Dermatitis, unspecified Onset: 05-24-2022 Resolved: 05-24-2022 Episodic E Codes: Natural/environment (1 source) Exposure to other specified factors, initial encounter; 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: [EXPOSURE OTHER SPEC FACTORS INITIAL] Onset: 10-26-2022 Episodic Genitourinary symptoms and ill-defined conditions (2 sources) Dysuria; 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: [Dysuria] Onset: 05-24-2022 Resolved: 05-24-2022 Episodic Immunizations and screening for infectious disease (1 source) Contact with and (suspected) exposure to other viral communicable diseases Onset: 08-22-2021 Resolved: 08-22-2021 Episodic Other aftercare (1 source) assisted (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; 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: [JAIL CURRENT USE OF ASPIRIN] Onset: 10-26-2022 Episodic Other aftercare (1 source) Other technician terminal and repeater (current) drug therapy; 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: [OTH JAIL CURRENT DRUG THERAPY] Onset: 10-26-2022 Episodic Other connective tissue disease (1 source) Pain in left finger(s) Onset: 10-02-2021 Resolved: 10-02-2021 Episodic Other connective tissue disease (4 sources) Pain in left foot; 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: [PAIN IN LEFT FOOT] Onset: 07-07-2022 Episodic Other connective tissue disease (1 source) Pain in right foot; 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: [PAIN IN RIGHT FOOT] Onset: 07-12-2022 Episodic Other non-traumatic joint disorders (1 source) Pain in right ankle and joints of right foot; 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: [PAIN IN RIGHT ANKLE] Onset: 07-12-2022 Episodic Other non-traumatic joint disorders (1 source) Pain in left ankle and joints of left foot; 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: [PAIN IN LEFT ANKLE] Onset: 07-12-2022 Episodic Other nutritional; endocrine; and metabolic disorders (2 sources) Personal history of other endocrine, nutritional and metabolic disease; 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: [PERS HX OTH ENDOCRN NUTRIT AND METAB DZ] Onset: 09-16-2022 Episodic Otitis media and related conditions (1 source) Otitis media, unspecified, right ear Onset: 05-24-2022 Resolved: 05-24-2022 Episodic Sprains and strains (2 sources) Sprain of interphalangeal joint of left index finger, initial encounter; 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: [Strain of muscle, fascia and tendon of lower back, initial encounter] Onset: 10-02-2021 Resolved: 10-02-2021 Episodic Unclassified (1 source) LOW BACK PAIN, UNSPECIFIED; 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: [LOW BACK PAIN, UNSPECIFIED] Onset: 10-23-2022 Urinary tract infections (1 source) Acute cystitis with hematuria Onset: 05-24-2022 Resolved: 05-24-2022 Episodic Viral infection (1 source) COVID-19 Onset: 08-22-2021 Resolved: 08-22-2021 Results Test Name Value Interpretation Reference Range Facility Nicotine Metabolite, Urine L Con 04-19-2023 Cotinine LC Negative Invalid Interpretation Code [id number] [facility] Comment on above: Result Comment: Perf ormed At: [facility] [address] [place], [place] [id number] Mark Puentes PhD Ph:[phone] Performed By: #### 1 [id number] ####[facility] (DEFAULT)[address] [place] [address] Lab - Toxicology Resultson 0 04-18-2023 Lab - Toxicology Results [id number]. [id number] Normal [facility] CT ANKLE RT WO CONon 023 CT ANKLE RT WO CON EXAMINATION: CT ANKL E RT WO CON HISTORY: Idiopathic osteoarthritis ; chronic right ankle pain COMPARISON: XR ankle bilateral 07/07/2022 TECHNIQUE: Multi-planar CT images were created without IV contrast. Dose reduction techniques were achieved by using automated exposure control and/or adjustment of mA and/or kV according to patient size and/or use of iterative reconstruction technique. FINDINGS: BONES: Joint space narrowing with mtrk-vx-pnzp articulation involving the medial aspect of the talocalcaneal joint. SOFT TISSUES: Negative. No visible soft tissue swelling. EFFUSION: None visible. OTHER: Negative. IMPRESSION: 1. Pes planus. 2. Dcjr-cx-wfvz articulation between the articular surfaces of the medial talocalcaneal joint. 3. Uniform, normal spacing of the tibiotalar joint. Electronically authenticated by: RAFAEL COATS Date: 2023-02-02 09:25 Normal [facility] Coding Summary.on 01-21-2023 Coding Summary. CD:[id number] W w+PGhlYWQ+GJ6UVSLmC31 ftYBrnN1lT0HOQDrGUqvu HTKIVThGHgYdxkHzXO4sj XNjZXJu IC8+CZ1lSPTuGkvxyXChm 2J3iVF4H52ucc9gAXkyrN Q6ZFUfOpAujnkks3ikxGx 6IDcuNmluOyBt MCJszT35QJI9iZ32Xw81c TZxlFVaf2irxEf0DeGjZC OtSKC0gGxdNPips9DyUUR xT63tnLTtr5L4 WOScqBihtKDfDaTcsGE1o T7sEPxwgoskx4cvxlofGb j1ql71tYRrc3C0nTS6C1F slzW4LACkeVCw ExcxgJIVrR5ogtgsg5xik iweHiOjTYSfLHg4KBe5EB CrfModPqAvZD12TBG1OST zpdDeE9OaGWNv wTxbOnC5o8H7Fq6UF4UKF hekC8SMEWJBBCqbtCQ+PC 89uc88B0UtGpehHwh3SOM eDEU4cIL4lF0s HMSuDUspp1N9zJE2P2Gom bPxxh5ce1nsSKSnMAgeJ6 2prPQwp8S6DDNwrWS2YHB sqKrhDoKykV78 Oyc+MNQtiDzjf2PyNewcs 7tgl9gwtBr1XktkOVSsah OasXecODH6j0RmBq2xRAF foBI7lTR8bM8h UwKjNpZ9RAsdD818SvDkq LOpEdoeU20aW2XjmFT+PH QfZst9HWEanHyyZA8xE8E hZGRpbmctbGVm oAbjLB5gACIbpcyyRGKbq S4xFFPhO8b6RyNwWcL4BS gtY7JpFFTjlxfnOc50gJ3 zPtOrLuC3CCes T8CbeqU1UDYvmSYaMFswB BS4G03tz1F6BULhNIAoWF V7wQB9qF6rbTpdwklieKA mdDsgdmVydGlj WKplDDjqJ887HCQviZumL kNvZGluZyBEYXRlOiAgMD MvMjQvMjAyMzwvdGQ+PHR rLHF3iFfyPPEe xDCbQHfaDz3adAcjjPfcK E6tSCUlynygULJzrG0gUC QqxRPkuEcjRS6aFXUevqs hl150CrAeURQ8 DISpmAVnS5IzwR9vVpZfU CNiGPSnX4WqxZVsRImoN7 33HUogCuU7SRYbruVsW9Q sLWFsaWduOiB0 n4V5Ke8Co0PclwgeI5Qly ORsMrZsAmhoYTx7V1UpMm wvdHI+CV17GEIgJY01BCp 8WVA0rXxyICzc PHNzL7WbtG6vTrUhCUVqE GRkOyc+PHRhYmxlIHdpZH RoPScxMDAlJyBzdHlsZT0 vVs6tLVXoRDZy nBiinNSpTwUlv1goWCTuZ OzdZN7gaCbaW2QaaVF0SP Qac4e7Of02B03nD2XphBS +RNPioSO8jXK1 yG5wLtQzPwA6VKfdH297Z uMnxITdChaxu3fdv9wigU q9BcF7KJCzhwBeyKtiSJR 2h3UgDl62E93k IHdpZHRoPSIxNSUiIHZhb Dfgvj3xmW6bXl6+PGNvbC W4wWF0eE5iOwIlGeG3SWp fX352HvYiyVGe Izxba2mbq4gwpJa4UrMiU CCuohDxnEkqXDL2o6BhEp 79I4RppJjkl3DqBvk3im1 5nQDye4X3uPS1 L8GnMRIjpesdnBZduRglW E5aAFUiebqqEDQowR9eUX JhV1a4AaZdYoW0PLzuD2K snaK1GZIoaYKm ZYCrnPUIxD9eawcvg2kvr vnbDpZoQZSyJXd5GVp0YC QhpBwmToXuGKN8GzT9VGI 0uIZshK3hpBhe tvgoaN5dPiq+FMS9zNDgw BRVXI0fMxflkQG+PHRkIH J8cYonYZkoFWFxzH2pZIQ hE0w4UyDcZqU2 WHukZ0TdsfH1XWDvaZLrY DCbwOWWcQ7ifrkdc9yiyn bgXkYpMZCmJXt0BGv4TJE saWduOiBsZWZ0 PpE2YGO2wDKhlM2ehNkxb rclqB8hLho+QmlydGggRG I1EKq3Q8NnYlf2MJUygGn vCO6tkLCeBEvf Ks9dzWcpfGcnIS4gGULyi cdwk204UkYkv1maZNAeeB OyBKlnXTE6J42op9V8WGL kEZMzOGF1sLR6 nG1fxEeghsgaaZEkkFevg vPpcYdkXImoUQinE122CE FusCpiKcIeROv0O7FeDld 0FDVuaTtaYO6p wZAtCPztQj0giAwebIetO L8zLXWlhqujl757CtZwm6 roTZQbfTAbHKayWNX1D16 dt0Q8FJJdFPEj BTR6zNQ6kE5vbHnunensq GVmdDsgdmVydGljYWwtYW neL686XCXwfCxtMjJqhEr 1X5LgIyn5SBZx uMjuAY8nmWMaJPkfTn4bq WxmhCqzBP2mIEUkmtjqd1 28HvZkv9qhUFYpiBScHAq gUYU7E34zm0C5 HAAqEKJfXQD3rJR7lH1ft GlnbjogbGVmdDsgdmVydG mxPGepLJvqX084HEMmjYj nPlBhdGllbnQg LOpkVGf6H8FgJojooCT+P E81DOYwWE59uNWswMJqf9 fzcTo4ClYgEERcFDO9gFi jRGmkr8VnQHLk N71nrIOzv9N7RXBaiOfci WKjKbBjuJA7zN7zJRqgjo ixh7fcrjdkSapyn0ubcu2 4hE46R50aFLgl ZHRoPSIzMCUiIHZhbGlnb m2cvC2wQl9+GNOhzFW4zW S8cX4uZPKeVoC0XNcqC91 9InRvcCIvPjxj z1vno2qubPx8XjM3CWJef hEsiPziDJJ9w7ZwCv35Z8 9sIHdpZHRoPSIyMCUiIHZ duAjybi8ixX1h Ii8+THDsnUE0oMA6fE1zS iOcVcY4CJprY111NfCotT YbDpnbC24cL8MmgJJ+PHR zYgo3WTLsdDvk OC5ugJCyQLssEw0uCRP6C mWeXvBqUYgnD4IkSXDoph vgbzebqLQ0OPAoLTJwwY4 1So5wsWtrTLCl fGNBsE1oynwxv6kcyuavF cVyZOUpQNd2MKt7LLAqiI zaNyCaNRL2KdS1IFK6nDH jrB1gzArsajfa tE7lY4AcDHRnncbbFb12k Q7oWmXuDaY6OHofDmv+GUERRERO 4JKadtVUlQAFORII4FQI9 1PI47pBFdb3Q2 wWJ9K7TcEBIpubtdwdkeo NE5DYTeNDOjvF06iWXhUD fhBc9ig0K3u653ETSwAUA lcT83Qn0juQbt TFWkzCOIuI7dmswmq5gak pgnPuHlNBDyTOd2ZNs4ZR BjoQrhAuXgSWZ1JsG1KXI 5cFDfvR7xeCyo qijidX9gHvi+MDYvMDUvM Xp9CszsrQU+BEAxVCB7vQ ptANxvVDOvvW8jCQZdO9j 8LmQxViZ9JVcv M9NwUMPtbnymHn94iC3aU oLiXaU0BAieN6QhfmV2TR VbeYGaIPimNFI6M74wl0M 2MJLuDURxMRJ4 tJT3pZ8rmCifssxktRIip DsgdmVydGljYWwtYWxpZ2 48XYRgzWboObB6PEhzKFC lDC73VS05hDMn k4H3zVQ8W5NvFYSjhhyau dytuZE5EDLvWACsjY86wP WvBBkmZu9oe9X1b367BLJ oZPHzjX93Ql1c zWqlXAIqhSSKhN8lzuzxd 0atxjnlOdDlKJPkLDp9RN z4CKCzpWbyNtShUWT7VgK 3UVQ7kURctH3j vNnlquhweT5lWsn+RmVtY WuxJR51WV28rTZuz1J4pZ X9A1QvFZNbeeqmipalqLM 9BJHeFKHyhN97 dPNzMLrjBo6rf1U8n241W POkZKMsrD85My6lbXypIN UipDCXnA3ncezha5ezxmm gIzAwMDAwMDt0 LVz8VWKmoKypGnNsZVG7E tY8SRI6dPShuS0cbOspup zswW6oEuy+YOSoSGLrh4T qj9MtDO35WY64 E5YlPmnbcZYcyXM+PHRhY mxlIHdpZHRoPScxMDAlJy AdkDheML6kBl0jXIHuOKW vbGxhcHNlOiBj p4xlALQsRWmpNM7rzQohR 7DsmGE1NIGnv2s8Zy56G1 0vG5RnnRF+VATxgDR3iSI 3iV4bQdDpXhE0 CMpfT425XcCplPWxJbsxa 2ngf7raiPm8HbPeHRPqvh GnuLqsTCO6j5CvEj93C17 sIHdpZHRoPSIy KVBfIBXokOtpiw7ftK7qC i8+UQUolUX2cRC8pK5cEy PlRqI4NYpkZ555AoRcxQH vXajoH57iL8Go dXA+ZJGmLmz1LLNcvBieF B8kzZCjJOuiFo8vRMO6Ps GeDdFoVVlqP1QgYXAlmdr bpuwunXV5YILz XYTjdZ77Zx1dfNoxRf6pR QTiMCQ7VDJwiKOqQ3RfuH 0bHiAbEUNcZCEcC6AtmUI lZPriD803NIct HsS9FAPfjvRsP5OvLHJsa PplRpC2m8C4Ca2AlAbpmP AkOR5iFsIgKSv1E9JsTcu 5PKEjxShtJH4w oASnSRofJk5qjRguaXmzG A7yUXJivlglg571YpGfq3 roUBCrbGCzLSsjSUJ4R96 co6N5JKLbARGw KDO1ySJ2xP3cuFwmnankz GVmdDsgdmVydGljYWwtYW dsV456WDNcnXmpVeQKUja 8W3DgHko1TBQe gFfkXM7xlVUrYTkzZb6oi IgbbLgiNG8jISPqektmw5 97QaYhd3xrAONksNBzFBs dAHV1A07xc1A1 DIPyWOXyTWH9jFW0yW2uc GlnbjogbGVmdDsgdmVydG byMKopAQzlE624CRRxfJj aVd3ROzu1A9Tl Rnz3EECufXgzER2gvHAxB VnhFg0peLoutNopHP6mFP Mpiyijn705UvFyu9mrSXE wcHQgVGltZXM7 M34el2I8ZPJdZSJwKOY5l OU0mN6jpRwopwnriPErnQ ydquHuqIbbLJihEMypS91 6IHRvcDsnPlBh eWVyOjwvdGQ+WF55tl34T 6AbVfmyVew6PYNeLIM6pV N8dG8sXQVpYXyvv0Q1iLB 7A4PodmBgks0r y6ciWPRj (more content not included)... Normal [facility] FSH and LHon 01-19-2023 Follitropin Qn 4.6 m[IU]/mL Invalid Interpretation Code [facility] Comment on above: Result Comment: Adul t Female: Follicular phase 3.5 - 12.5 Ovulation phase 4.7 - 21.5 Luteal phase 1.7 - 7.7 Postmenopausal 25.8 - 134.8 Performed at: [address] [id number] PhD Pancho Higgins Performed By: #### 1 5349230, 76923951, 7782190, 9190060, 4360551, 808450103, 1825330, 9501907, 8765298, 63572606 ####[address] [place] [address] Lutropin Qn 12.1 m[IU]/mL Invalid Interpretation Code [facility] Comment on above: Result Comment: Adul t Female: Follicular phase 2.4 - 12.6 Ovulation phase 14.0 - 95.6 Luteal phase 1.0 - 11.4 Postmenopausal 7.7 - 58.5 Performed By: #### 1 3846620, 99696679, 8425208, 4420112, 4588758, 468915021, 7353142, 5173788, 1954115, 84614916 ####[facility] [address] [place] [address] Auto DiffOrdered By: SYSTEM SYSTEM on 01-17-2023 Basophils/100 WBC (Bld) 0.5 % Normal 0.0-2.0 [facility] Comment on above: Order Comment: Order Added by Discern Expert. Performed By: #### 1 2614920, 48893345, 6519155, 6105519, 2753988, 019394292, 2083049, 8532194, 9602122, 42799775 #### [facility] Laboratory [address] [place] [address] Basophils/Leukocytes Auto (Bld) [Pure # fraction] 0.1 E9/L Normal 0.0-0.2 [facility] Comment on above: Order Comment: Order Added by Discern Expert. Performed By: #### 1 6707537, 20853388, 7696625, 9934192, 1002530, 302596681, 3608278, 6511834, 8120715, 88459599 #### [facility] Laboratory [address] [place] [address] Eosinophils/100 WBC (Bld) 0.5 % Normal 0.0-8.0 [facility] Comment on above: Order Comment: Order Added by Discern Expert. Performed By: #### 1 3883180, 03135003, 3522960, 2000925, 1023412, 234769545, 0301089, 5308315, 8117147, 53762063 #### [facility] Laboratory [address] [place] [address] Eosinophils/Leukocyt es Auto (Bld) [Pure # fraction] 0.1 E9/L Normal 0.0-0.5 [facility] Comment on above: Order Comment: Order Added by Discern Expert. Performed By: #### 1 5529737, 27863256, 1592969, 6330569, 0649404, 831045455, 0858878, 8234157, 5136466, 59065842 #### [facility] [address] [place] [address] Lymphocytes/100 WBC (Bld) 24.6 % Normal 14.0-50.0 [facility] Comment on above: Order Comment: Order Added by Discern Expert. Performed By: #### 1 9047720, 15518112, 4808036, 9289280, 6378694, 374592956, 7279919, 9908637, 3730139, 04041493 #### [facility] Laboratory [address] [place] [address] Lymphocytes/Leukocyt es Auto (Bld) [Pure # fraction] 3.6 E9/L Normal 1.0-4.0 [facility] Comment on above: Order Comment: Order Added by Discern Expert. Performed By: #### 1 6412433, 47694153, 0382057, 0866626, 0029510, 488393465, 1102369, 1865789, 5585199, 35969023 #### [facility] Laboratory [address] [place] [address] Monocytes/100 WBC (Bld) 6.6 % Normal 4.0-14.0 [facility] Comment on above: Order Comment: Order Added by Discern Expert. Performed By: #### 1 0448924, 76788761, 5137418, 2917341, 0718099, 334550427, 3144148, 2422147, 6792480, 91089150 #### [facility] Laboratory [address] [place] [address] Monocytes/Leukocytes Auto (Bld) [Pure # fraction] 1.0 E9/L Normal 0.2-1.0 [facility] Comment on above: Order Comment: Order Added by Discern Expert. Performed By: #### 1 1811530, 99113782, 3050109, 6050672, 6689779, 250416236, 1334963, 0128564, 3631527, 04628373 #### [facility] [address] [place] [address] Neutrophils/100 WBC (Bld) 67.8 % Normal 36.0-75.0 [facility] Comment on above: Order Comment: Order Added by Discern Expert. Performed By: #### 1 9634608, 97387900, 3313485, 9148282, 3542783, 653018919, 7405334, 3565816, 4504371, 53669737 #### [facility] [address] [place] [address] Neutrophils/Leukocyt es Auto (Bld) [Pure # fraction] 10.0 E9/L High 2.0-7.5 [facility] Comment on above: Order Comment: Order Added by Discern Expert. Performed By: #### 1 3787581, 64298295, 1115508, 6390787, 3449782, 287071102, 1184496, 0655563, 3881482, 09164313 #### [facility] [address] [place] [address] CBC w/ Auto DiffOrdered By: Jojo Mueller on 01-17-2023 Erythrocyte distribution width (RBC) [Ratio] 13.8 % Normal 10.9-14.2 [facility] Comment on above: Performed By: #### 1 9321216, 60146808, 6027440, 7547377, 2152719, 767667671, 2220861, 7456275, 6848349, 06027072 #### [facility] [address] [place] [address] Hematocrit (Bld) [Volume fraction] 46.0 % Normal 34.0-46.0 [facility] Comment on above: Performed By: #### 1 7861041, 21614765, 1048489, 9692517, 5882668, 760367616, 8752850, 1682852, 3855534, 64542150 #### [facility] [address] [place] [address] Hemoglobin (Bld) [Mass/Vol] 14.9 g/dL Normal 12.0-16.0 [facility] Comment on above: Performed By: #### 1 9845589, 53573041, 3945354, 8537272, 0431296, 267448308, 0739754, 6988060, 4417136, 55317431 #### [facility] [address] [place] [address] MCH (RBC) [Entitic mass] 28.1 pg Normal 27.0-34.0 [facility] Comment on above: Performed By: #### 1 2210837, 18213161, 0962089, 1424105, 4453773, 669336436, 6978654, 1010691, 4327556, 76505478 #### [facility] [address] [place] [address] MCHC (RBC) [Mass/Vol] 32.4 g/dL Normal 31.4-36.0 [facility] Comment on above: Performed By: #### 1 6850988, 89443966, 6737494, 9856694, 1102450, 889918789, 9432878, 0265530, 9099094, 38046429 #### [facility] [address] [place] [address] MCV (RBC) [Entitic vol] 86.6 fL Normal 80.0-100.0 [facility] Comment on above: Performed By: #### 1 1881025, 63952661, 7507263, 2850622, 4460941, 931653911, 2655245, 8616854, 6313791, 35439721 #### [facility] [address] [place] [address] Platelet mean volume (Bld) [Entitic vol] 9.5 fL Normal 6.4-10.8 [facility] Comment on above: Performed By: #### 1 6163291, 92159075, 9284041, 8680310, 2952613, 289265358, 8061871, 8914962, 0266104, 16417436 #### [facility] [address] [place] [address] Platelets (Bld) [#/Vol] 298.0 E9/L Normal 150.0-500.0 [facility] Comment on above: Performed By: #### 1 7453968, 06643624, 3024976, 8366130, 7258825, 157021013, 0589181, 5608090, 2818993, 51172864 #### [facility] [address] [id number] RBC (Bld) [#/Vol] 5.3 E12/L Normal 4.3-5.9 [facility] Comment on above: Performed By: #### 1 0707502, 05710971, 3511483, 3546797, 5375666, 559123334, 8686146, 9694437, 0414494, 69531582 #### [facility] [address] [id number] WBC corrected for nucl RBC Auto (Bld) [#/Vol] 14.8 E9/L High 4.0-11.0 [facility] Comment on above: Performed By: #### 1 2190464, 68290858, 3343544, 8592316, 0417821, 183682116, 8275540, 4692105, 7888453, 63321102 #### [facility] [address] [place] [address] CHEMISTRYOrdered By: SYSTEM SYSTEM on 01-17-2023 Albumin/Globulin [Mass ratio] 1.4 {ratio} Normal 1.1 - 2.2 [facility] ALP [Catalytic activity/Vol] 84 [iU]/d Normal 21 - 98 Int._Unit/L [facility] ALT No additional P-5'-P [Catalytic activity/Vol] 20 [iU]/d Normal 6 - 46 Int._Unit/L [facility] AST [Catalytic activity/Vol] 15 [iU]/d Normal 5 - 43 Int._Unit/L [facility] GFR/1.73 sq M.predicted among blacks MDRD (S/P/Bld) [Vol rate/Area] mL/min/1.73 m2 Normal >=59mL/min/1 .73 m2 [facility] Chem S GFR/1.73 sq M.predicted among non-blacks MDRD (S/P/Bld) [Vol rate/Area] mL/min/1.73 m2 Normal >=59mL/min/1 .73 m2 [facility] Chem S T4 [Mass/Vol] 10.0 ug/dL High 4.6 - 9.1 mcg/dL [facility] Rem[facility] Urea nitrogen/Creatinine [Mass ratio] 14 mg/mg Normal 10 - 20 [facility] CMPOrdered By: SYSTEM SYSTEM on 01-17-2023 Albumin [Mass/Vol] 4.3 g/dL Normal 3.3-5.0 [facility] R emisol Comment on above: Performed By: #### 1 2219147, 25766436, 0732408, 5038041, 8486265, 378585952, 9532921, 8154286, 7238290, 17301250 #### [facility] Laboratory [address] [place] [address] Anion gap [Moles/Vol] 12 mmol/L Normal 6-16 [facility] Comment on above: Performed By: #### 1 7122115, 35961021, 7560471, 8309231, 2088710, 478863136, 4642465, 3485613, 6776479, 56841168 #### [facility] Laboratory [address] [place] [address] Bilirubin [Mass/Vol] 0.6 mg/dL Normal 0.0-1.1 [facility] Comment on above: Performed By: #### 1 1981600, 23181266, 0471980, 1500717, 7839303, 732596516, 6050854, 6638065, 4292478, 30299707 #### [facility] Laboratory [address] [place] [address] Calcium [Mass/Vol] 9.6 mg/dL Normal 8.9-11.1 [facility] em[facility] Comment on above: Performed By: #### 1 0792201, 85692433, 1709965, 9924797, 8948901, 675452692, 6844832, 0667827, 6138963, 00157057 #### [facility] [address] [place] [address] Chloride [Moles/Vol] 101 mmol/L Normal 101-111 [facility] Comment on above: Performed By: #### 1 9669546, 03277479, 4736376, 9921509, 0145525, 606473207, 1796193, 9927623, 8914131, 54703274 #### [facility] [address] [place] [address] CO2 [Moles/Vol] 25 mmol/L Normal 21-31 [facility] bobbi Comment on above: Performed By: #### 1 9320896, 90862570, 4025463, 9578425, 1941510, 517706148, 7322971, 4922913, 4685390, 72972307 #### [facility] [address] [place] [address] Creatinine [Mass/Vol] 0.7 mg/dL Normal 0.5-1.3 [facility] Comment on above: Performed By: #### 1 8781550, 27253579, 2744772, 3475188, 9506173, 879628567, 2486195, 7027723, 0417539, 88516120 #### [facility] [address] [place] [address] Globulin (S) [Mass/Vol] 3.1 g/dL Normal 1.4-4.0 [facility] Comment on above: Performed By: #### 1 1977614, 94307002, 1051904, 4144761, 3180889, 066682235, 6370495, 4993106, 5771995, 25530175 #### [facility] [address] [place] [address] Glucose [Mass/Vol] 82 mg/dL Normal 55-199 [facility] R emisol Comment on above: Result Comment: If t his glucose result represents a fasting glucose, interpretation should refer to the following reference range: 55-99 mg/dL Performed By: #### 1 8223154, 15106826, 8895920, 6880572, 3236850, 147114419, 7691011, 4973579, 9984851, 60485023 #### [facility] [address] [place] [address] Potassium [Moles/Vol] 4.3 mmol/L Normal 3.5-5.3 [facility] Rem[facility] Comment on above: Performed By: #### 1 5076442, 50009538, 0953409, 0299088, 7932505, 925889738, 8860534, 9822279, 5800016, 82911326 #### [facility] [address] [place] [address] Protein [Mass/Vol] 7.4 g/dL Normal 6.0-7.8 [facility] emisol Comment on above: Performed By: #### 1 1728090, 22050156, 5467536, 3792871, 2684277, 241945147, 4287249, 9255218, 5662393, 60722159 #### [facility] [address] [place] [address] Sodium [Moles/Vol] 134 mmol/L Low 135-145 [facility] em[facility] Comment on above: Performed By: #### 1 3106908, 45154360, 1224049, 9122499, 4979315, 609899057, 8895174, 4496734, 0786222, 57518315 #### [facility] [address] [place] [address] Urea nitrogen [Mass/Vol] 10 mg/dL Normal 5-21 [facility] Comment on above: Performed By: #### 1 1675680, 99555695, 3857951, 6026882, 4255374, 197062956, 3987204, 3335565, 5481088, 34630432 #### [facility] Laboratory [address] [place] [address] CMPon 01-17-2023 Albumin/Globulin (S) [Mass conc ratio] 1.4 Normal 1.1-2.2 [facility] Comment on above: Performed By: #### 1 8922855, 72204869, 8604190, 0796094, 7744866, 821745299, 2494609, 1088182, 9313308, 61287831 #### [facility] Laboratory [address] [place] [address] ALP [Catalytic activity/Vol] 84 Int._Unit/L Normal 21-98 [facility] Comment on above: Performed By: #### 1 0272059, 42481640, 6966315, 2084557, 6968382, 738187002, 9039669, 3898797, 7645696, 06370650 #### [facility] Laboratory [address] [place] [address] ALT No additional P-5'-P [Catalytic activity/Vol] 20 Int._Unit/L Normal 6-46 [facility] Comment on above: Performed By: #### 1 6430874, 87052367, 0158427, 6010848, 4519355, 536754967, 3386544, 0796227, 3641901, 04965481 #### [facility] Laboratory [address] [place] [address] AST [Catalytic activity/Vol] 15 Int._Unit/L Normal 5-43 [facility] Comment on above: Performed By: #### 1 1274574, 09346938, 6555648, 9244475, 2795215, 052562350, 7784641, 8882345, 0280933, 34258337 #### [facility] Laboratory [address] [place] [address] Urea nitrogen/Creatinine [Mass ratio] 14 No Units Normal 10-20 [facility] Comment on above: Performed By: #### 1 0072489, 27322756, 2197811, 3123584, 9416506, 156956224, 4712592, 0291205, 5280612, 34659368 #### [facility] [address] [place] [address] Free A4Bbslfdf By: SYSTEM SY STEM on 01-17-2023 Free T4 [Mass/Vol] 1.02 ng/dL Normal 0.58-1.64 [facility] em[facility] Comment on above: Performed By: #### 1 2118546, 99548568, 4676218, 4118690, 3879362, 074183861, 1887173, 1677113, 9424703, 99190158 #### [facility] [address] [place] [address] Lipid PanelOrdered By: Funky Moves SYSTEM on 01-17-2023 Cholesterol [Mass/Vol] 171 mg/dL Normal 120-200 [facility] Comment on above: Performed By: #### 1 5108749, 59682212, 3268927, 4479777, 6726930, 896791667, 2287226, 9763107, 4598937, 44922805 #### [facility] [address] [place] [address] Cholesterol in HDL [Mass/Vol] 60 mg/dL Invalid Interpretation Code [facility] Comment on above: Result Comment: HDL > or equal to 60 mg/dL: Low cardiovascular risk HDL < 40 mg/dL : High cardiovascular risk Performed By: #### 1 6254358, 00332145, 9787416, 9714340, 1308190, 663072871, 5456594, 8792009, 7076184, 09212705 #### [facility] [address] [place] [address] Cholesterol in LDL [Mass/Vol] 52 mg/dL Normal <=129 [facility] Comment on above: Performed By: #### 1 1211370, 93591258, 9495495, 7745387, 7585131, 712509558, 4627771, 2721019, 8093190, 47082653 #### [facility] Laboratory [address] [place] [address] Cholesterol in VLDL [Mass/Vol] 63 mg/dL High 7-40 [facility] Comment on above: Performed By: #### 1 2083095, 16251877, 1898997, 3199589, 9104231, 694156124, 7319312, 6462114, 0414100, 26921645 #### [facility] Laboratory [address] [place] [address] Triglyceride [Mass/Vol] 316 mg/dL High <=149 [facility] Comment on above: Performed By: #### 1 7867772, 74762841, 3930399, 4035851, 6940315, 430818932, 1488195, 6788103, 2462450, 13614134 #### [facility] Laboratory [address] [place] [address] Physician Orderon 01-17-2023 Physician Order [id number]# 1.00CD:127 Normal [facility] T4 & TSHon 01-17-2023 T4 [Mass/Vol] 10.0 microgram/dL High 4.6-9.1 [facility] Comment on above: Performed By: #### 1 2174626, 43712664, 4647024, 8191082, 9233849, 193961782, 1796424, 8046025, 3001624, 14320778 #### [facility] Laboratory [address] [place] [address] T4 & TSHOrdered By: SYSTEM S YSTEM on 01-17-2023 TSH Qn 3.76 m[IU]/L Normal 0.34-5.60 [facility] Comment on above: Performed By: #### 1 8227504, 22297489, 5550582, 2912971, 6172894, 138833155, 2981962, 9965867, 5653311, 31069179 #### [facility] Laboratory [address] [place] [address] Vit E36Ycaxhjd By: SYSTEM SY STEM on 01-17-2023 Cobalamin (Vitamin B12) [Mass/Vol] 272 pg/mL Normal 50-1500 [facility] Comment on above: Performed By: #### 1 2869729, 00554585, 9141312, 7385651, 8881737, 626554393, 3972729, 0884592, 7913932, 52947351 #### [facility] Laboratory [address] [place] [address] Vitamin D 25 HydroxyOrdered By: SYSTEM SYSTEM on 01-17-2023 25-hydroxyvitamin D3 [Mass/Vol] 30.1 ng/mL Normal 30.0-100.0 [facility] Comment on above: Result Comment: Vit rizvi D deficiency has been defined as a level of serum 25-OH vitamin D less than 20 ng/mL (1,2) by the Johnson of Medicine and an Endocrine Society practice guideline. The Endocrine Society further defined vitamin D insufficiency as a level between 21 and 29 ng/mL (2). 1. IOM (Johnson of Medicine). 2010. Dietary reference intakes for calcium and D. [place]: The National Academies Press. 2. Jacquie MF, Hemanth [place], Bo-David INGRAM, et al. Evaluation, treatment, and prevention of vitamin D deficiency: an Endocrine Society clinical practice guideline. JCEM. 2010; 96 (7):1911-30. Performed By: #### 1 5280107, 77818376, 4261407, [id number], [id number], [id number], 5203857, 2884836, 8182708, [id number] ####[facility] [address] [place] [address] eGFRon 01-17-2023 GFR/1.73 sq M.predicted among blacks MDRD (S/P/Bld) [Vol rate/Area] mL/min/{1.73_m2} Normal >=59 [facility] [place] Comment on above: Order Comment: Order added by Discern Expert. Result Comment: eGFR is race adjusted. AA=. Performed By: #### 1 [id number], [id number], [id number], 3246098, 6398984, [id number], 3126545, 8309346, 2473824, [id number] #### [facility] [address] [place] [address] GFR/1.73 sq M.predicted among non-blacks MDRD (S/P/Bld) [Vol rate/Area] mL/min/{1.73_m2} Normal >=59 [facility] [place] Comment on above: Order Comment: Order added by Discern Expert. Result Comment: [employer] Install[employer] hunter kidney disease could be indicated at eGFR's of less than 60 mL/min/1.73m2. Kidney failure is indicated at less than 15 mL/min/1.73m2. Performed By: #### 1 [id number], [id number], 2596613, 1200004, 4327851, [id number], 4340496, 6510229, 0539258, [id number] #### [facility] [address] [place] [address] Coding Summaryon 12-21-2022 Coding Summary HTMLBase 64 EtfbywtkQVp0xTc+PGhlY WQ+LB4OAFGuA03cjJRcbF 8MP4wFCC9AOMNYMQVODG6 EDJ2shTJ1LWbdC4ZrttUa QyrecAMwQN42RTk2OOP2o XgpJPosvD8ptQYrM1b0Wn UfEA51fF56QIvjKFIeCoX 3LjZpbjsgbWFy M6ptWoQscBLvMwv+PHRhY mxlIHdpZHRoPScxMDAlJy YqtNzuDH0qAp6eKMPgEHG vbGxhcHNlOiBj f3piZFVbLFjkPB9cgGvmL 2IopDK3IWSks9r1Kw39pY I+TLQsASI5bFxpTTweq97 6UkWio5ryEXI8 fKWlKKihOFQ0A28hn6Y6O TGrKMPoNBC5hHO2pI1jnT yevpbaR6WetHYpHcZ1KBF 1zPZkwM1jrSeg bictfM3fRss+E67KLE0CY XXMOY6CTby2U7RlKkqwwK I+DT82JDKoZZ25vCBfcZK ju1abnEh0KvHs TBYoBDW1wQtzIIsfq0NqQ XIcZ86htASvd5Z7JTJvyZ wvuNSbSdXgzKX7dK8lYGh uwvlao3xymten Azkkm1mpvi66uF54Z48fC ZdtNLWgDAE2ODDdXYDidF radf4bkH2tQo2+MYonv6c zg3ovuDi4FqOj JTLqbjIqqNexLIH6z4IpI i27L8GrdWekv3FqBtt5cl 26rNRqf1B9mMG0JRmtADE fuO1vEGkvCzX3 BTDbHfXopN29iQJlTXjbB m5auUdklGoyXL3dLLZtoy koCKGmxQ7zKBVxoWSftWb iPP4iGUHexamy g274OsJfYVE9GPLdvHIuV 5IwoZ4rCrZeESCgZRFpW7 MohMGqHVshZ859FHjfYgV 1IBIqssFyX0Hc QAEpuXqkRsH4p2L6Pu1Rt 1OhsdwgKJH5BFcoECJpDk VcCmGlAuD9H7FnMjx9HVC uyWnlTA7hI8Yk CUNdswsdhjkgmKY3XRExJ KFxxR44vRVoLSinZr6zx7 L2x165PWTmDENnzM36Pa1 udDogMTBwdCBU wS6hiwvsp6mwgyipNjTeC WPnXUb6XDk5UBKvyEpfUn MjIQG2SfI9FCY3wXXknA8 vzBwbqcvbrF2v Oyc+T99saY9vZTL2OFW5w qkgKNGtxpPsNR76AP98F7 RyPjwvdGFibGU+PGRpdiB joHafME0mEsQz t7qbx9UmUTfxK2BbEKKjU MykWte2NEGtINV1xMT6sZ 7sUQOlAErlg0C6tCH0J6Q eswCpfn6dh6wp EINdYVajB99zwOZcu1E4W TNzqJJ4QFIatCwzFyKxcX 93Oyc+QZMhxIelm6SpCuv ln3jlf7sclWw8 EqWfFULgfpEziSugQZD8p 2HbHd17R58kUUlpGZNmBL QpKOKnOAAtkDgnhg9ubS7 wIi8+PGNvbCB3 dEI0gX6aGNYaGkG8YWfsH 814QhTnxRXuNuqph5jxu1 hbzZo2TqKiAVHxrvSuoIa vBJK3v8FoTu33 T65lLTdsEYAlBOOjEYIqY JQtuTjuex3lhD6qFo9+PC 8bn7jfqx73dA60uFT+PHR gWIW0qDcpUWea VEFxlW2lTZfePnT3MEUwP sOesQ13uSTnHXmxLo3suD srfFmoIU0bGVAwnqjac64 0KsYmt6jqMFQe pXNeXXbeQPQ9E12qa4Z3I JWzXJXuAFU8cMN9mG4amK lnbjogbGVmdDsgdmVydGl dAXthNZftU231 IHRvcDsnPlBhdGllbnQgT qJsMPb7O6KrHhv4XLTzwJ dtHP4fxIGsGVtlEu8toCf tuUqcKC9cRTHc bjjle406ZlYii7yrJPZqm NAlMXfqXGV2Q60xs9T5BB ZcRWObAKZ9qUZ5vV5xzZs nbjogbGVmdDsg myPjuEeeNUpsZJlgT402S HRvcDsnPkJpcnRoIERhdG V9RD05CA17bAYvu8K3pFY 1K5RvFMDbgtgp ttvaoCY7QXXlQWSdqM68X a2soSucYj8pFWAqLVW1VX NqkTSsD8ZduN1sNlGhKOS mLGZcR6XvvBZh BKicA429KEhrUcP6EBTck vMrH2ByVAHrmSdqUtR8z5 F5Nk0BK5O2RR68DM46mJE hi9A3xTY7Z2Yw RCYnlzudqxtsaXM7CPAdM WJkvR59Me2vxYopTo2iCU MzOJV3IXZynXRxX3HnpQ0 yOiAjMDAwMDAw P2PozZChGFteY186UPdpZ sG6AFKkrhYdA1JkEHQegC hqHxR8q8D7Tg8EALw3EB6 3JQ22hRRyh0Z9 bHM2S1LvEDIihjjtjddwp FE5HEYtJRLlhD05Gu9ocR dtYt7nHIKiEYK3YFZclQV gC3AqgN1wEoJr GQPrLYHhX6AhuULzQGyxL 117ZNxkZyO9ELWnxlXsL0 BoXBOswDjgHjM3o1K4Hu9 BEIXmUO51IBH0 fXW0OU53LK56M5SuSbpza GFibGU+PHRhYmxlIHdpZH RoPScxMDAlJyBzdHlsZT0 aXl8sRPWdTIEm pPpsjSVtMcOez9gnUKOiN ZjxIV8lgUzjP0AtyDC0GV Ewd1v7Cm47U81iI2RdfOB +QWEkfGP7dKC3 oO1dJlBeBpS7RFvcW462T jQgjWQcGwbfn0fns1blgY u1ZjW7IBZleqUwvLzvUOB 1t8GsTw49P60v IHdpZHRoPSIxNSUiIHZhb Kjckp5tzW4tKa2+PGNvbC H6jTB1uO3nZtChFcV4KFd qZ286SvTejWPv Fxmjo4hzv5ojoSl9SvPpS EYflkDjbJfkIEW8x3EsWz 89Q7WysKtdk8TeXuo9uw7 0rKBzq4A9yMG8 S6YxWBGmlabdtIDmmNkrV W2tUAVikmwcWDDzcY3rKO RnA4j1VcOrWxU8NGnpI6W kujQ3VXVrpDCj FJlyIAQ7R62dt6R3MQOgQ WVgSLI6mAW9iQ3fuUaoiz ogbGVmdDsgdmVydGljYWw mCBjeZ024JDWl vZirSRDjnT2eVAZheRHjk CqgTE9lCCBfmnkrMwmHFI 5HLCBLUklTVElOQSBFTEF RJyK5G9WmSly5 UUBphYjoGR1rsEIuRUxuT q9qrPxljOqsWZ0xGKOvri rxYLTxuS6xPFZeiWOsiJx pSE8iCLYbqvgq r818DxIxKLF0VAAzbTQyW 1SgrO8qSqBkBRDvZBHgY6 LrbHIsQCpvM086AFioPgR 4IYKzeyThM0Ni QVPssMffHqH7x3Q4Zz2zV x0nZA1aZLs0MF93KP01xV Djp2K9wKD1G5IrETGuagb ovbwkiNK5HEQg EMFygF65sXZbPZnyYw6fa 5X9h874YVTwSUWsxM83Dy 6rzVjeSTJsyFXZrS2rdza er8duzbspMfTq KMXfHMj3DFt2CBVehNcbH iGnYKD2UwR9OBO0uTArxM 4sqQklhygqoL0nWly+MzY cLDOkoaJ5X8Bh Bjb0OMUqrInwFA1rkODrF JtbVa6uuYopbQosBZ8qJF NtauxdTLEeeP1bFVDyaZC nfTjtWX1jJNBi nxlwm651DxTjMCV4TRTpw EUpW3XvaM4kOjWpBOGnWY ZqK0KwhGSiVJmyE061QZd fQsQ4TQObddPn L9FqSBLvjBsqEhY6c6F4J x0LWD6MAXO9L4CsXql7QG BecTgjVL8avVHdRMozNg2 ggClpsMhgJP2q BPPppdisGVLubZ9zXTPgg APtcKerFH9dKACfcfgij8 95DaUpSUU4USLcgWIrA5X xwL5lXmDyZAGt VEElN7CkeQRfSFsuD017F GvjRrE5UWXifqUkA6MmIW EfpVnbSpF4v8R0Sl0ELMj vdGQ+MT93so42 F8UwXhifNtt8OTYqLWO7v GZ8hC6zMFBeWYxfq8M0zV B2E2TnwcTsut6qi5jmXLJ zZPzlY50zpOIo l3K0LLQprSH3FHAouZxqI vKagP04Ost+PGNvbGdyb3 EeHkrwz2yvn0hgjQb7CcQ wJSIgdmFsaWdu SVK4v6ZpLw64M68ePMsuO HRoPSIzMCUiIHZhbGlnbj 4noN7fHo0+ZJUkeAO2tUH 9dX9oYxDbZxC0 UOhlX392YuYmoDOpXmumt 0tbw2uuqRp6MfZwCXJtam KseIooJIT4m7NkWz01N3B iaDqhm9NxUbj7 kz94dAJgi5U6lZR8W3ZoH VOqoxofvQHhdBppDH1pQO LwblbhSZXqbJ3zOLAvK9u 9EwGuArS3QNxr R7FyraI1NOPgwOWgZQChc PJZgV8fjljxa8ehceyuDf HnUAPiPFk7DBn5DTUguIy eHfVpWKE8RmR3 PKW4dEAjyE9tmEyiteyjb G9wOyc+IZf9e2inuUQbPF 1ojOK9WX65PG63yHVjo7A 5dPD7M6ByQCYx koyhwbqqjRO2HIVkMXSlb E59Hb4itGpmPm0jSRTdGR T4KCLpiMIzQ4OnwN1bLtL zOIRpAOVoW3Io rMAeFGpmV789BZobYjM8P SHttfAjG8OaJXQeoZwfOs F7e6R4Pg9ZFV71BF90IQ0 3cYBbp3O5aLU1 G0TbPZAnfjkitefusIB6I UEbFKApdL17Rf7dmNifUu 8pCBIiETR6SATpeTBcR1X wsN3fDuSqVFRv ADRuQ5MgvVIrUYmaJ353K XnlCbY6HTJnfhUsL3BcFQ UfnCypVyD8v6F8Fa1TMs2 7LU28AK84rUGy c4C3hVD8Z9AmKQTcozlac srgfJJ8HFXaXMQayS40Wn 9nrIdsBf5bMSQuNDB5FEG xhPFzL3IpvR2c TvEtYWMhFTHyO4AylHDqN JssM224YGnrJzT4XZLlwm EeJ8JwQBNfuOgwNxD8n1N 4Ig1PVPvrelo4 A2DtMlsqbYP+WL65SLLyT M45dLVahCHnr7iwfCh2Kr BzEFPzMCT0eLuvGLadd9P sRSByF94gwDDn c2U (more content not included)... Normal [facility] ED Clinical Summaryon 2022 ED Clinical Summary [facility] ? Urgent Care [address] [place], [place] [id number] Clinical Summary PERSON INFORMATION Name: NOBLE SANTIAGO Age: 37 Years Sex: FEMALE : 1985 MRN: Acct#: Visit Reason: UC - Sinus Pain or Congestion; UC - Ear Pain; LT EAR PAIN Arrival: 12/16/2022 11:36:50 Discharge: 12/16/2022 12:00:00 LOS: 000 00:24 Check In: 12/16/2022 11:36:50 Checkout: 12/16/2022 12:00:00 Address: [address] [place] [id number] PCP: Ame Ortiz CNP PROVIDER INFORMATION Provider Role Assigned Unassigned Sandra Dinh ADJUSTER LEADER Nurse 12/16/2022 11:39:08 Cong Cobian PA-C ED PA 12/16/2022 11:41:06 VITALS INFORMATION Vital Sign Triage Latest Temperature Tympanic Temperature Temporal Artery Pulse Rate O2 Sat 98 % 98 % Respiratory Rate Blood Pressure /78 mmHg /78 mmHg MEDICAL INFORMATION Medications Given: Allergy Information: Tape; Betadine; codeine PHYSICIAN DOCUMENTATION DISCHARGE INFORMATION: Discharge Disposition: Home Discharge Location: Home PATIENT EDUCATION INFORMATION Instructions: Otitis Media, Adult, Felh-kl-Sdna Follow-Up: With: Address: When: Ame Ortiz [address] [place], [place] [id number] Business (1) Within 1 week Comments: Please follow-up with , call the office schedule an appointment to be seen in a week or sooner for continued care, taking amoxicillin as prescribed, take ftoy-rjl-voqrquv ibuprofen Tylenol as needed for pain and fever, drink plenty water stay hydrated, and return back to the urgent care center for any worsening symptoms, concerns, or complications. DIAGNOSIS: 1:Left otitis media Patient Understands: Yes - Patient/family/caregi regina verbalizes understanding of instructions given Comment: Normal [facility] ED Patient Summaryon 023 ED Patient Summary [facility] ? Urgent Care [address] [place], [place] [id number] PATIENT DISCHARGE INSTRUCTIONS Patient Information Name: NOBLE SANTIAGO Age: 37 Years Date of : 1985 Reason For Visit: UC - Sinus Pain or Congestion; UC - Ear Pain; LT EAR PAIN Arrival Time: 12/16/2022 11:36:50 Primary Care Physician: Ame Ortiz CNP Attending Physician: Cong Cobian PA-C Comment: Patient Education With: Address: When: Ame Ortiz [address] [place], [place] [phone] [employer]iki (9) Within 1 week Comments: Please follow-up with , call the office schedule an appointment to be seen in a week or sooner for continued care, taking amoxicillin as prescribed, take vecl-ldc-gvsenip ibuprofen Tylenol as needed for pain and fever, drink plenty water stay hydrated, and return back to the urgent care center for any worsening symptoms, concerns, or complications. Otitis Media, Adult Otitis media is a condition in which the middle ear is red and swollen (inflamed) and full of fluid. The middle ear is the part of the ear that contains bones for hearing as well as air that helps send sounds to the brain. The condition usually goes away on its own. What are the causes? This condition is caused by a blockage in the eustachian tube. This tube connects the middle ear to the back of the nose. It normally allows air into the middle ear. The blockage is caused by fluid or swelling. Problems that can cause blockage include: ? A cold or infection that affects the nose, mouth, or throat. ? Allergies. ? An irritant, such as tobacco smoke. ? Adenoids that have become large. The adenoids are soft tissue located in the back of the throat, behind the nose and the roof of the mouth. ? Growth or swelling in the upper part of the throat, just behind the nose (nasopharynx). ? Damage to the ear caused by a change in pressure. This is called barotrauma. What increases the risk? You are more likely to develop this condition if you: ? Smoke or are exposed to tobacco smoke. ? Have an opening in the roof of your mouth (cleft palate). ? Have acid reflux. ? Have problems in your body's defense system (immune system). What are the signs or symptoms? Symptoms of this condition include: ? Ear pain. ? Fever. ? Problems with hearing. ? Being tired. ? Fluid leaking from the ear. ? Ringing in the ear. How is this treated? This condition can go away on its own within 3?5 days. But if the condition is caused by germs (bacteria) and does not go away on its own, or if it keeps coming back, your doctor may: ? Give you antibiotic medicines. ? Give you medicines for pain. Follow these instructions at home: ? Take tsjl-qgs-wranqqp and prescription medicines only as told by your doctor. ? If you were prescribed an antibiotic medicine, take it as told by your doctor. Do not stop taking it even if you start to feel better. ? Keep all follow-up visits. Contact a doctor if: ? You have bleeding from your nose. ? There is a lump on your neck. ? You are not feeling better in 5 days. ? You feel worse instead of better. Get help right away if: ? You have pain that is not helped with medicine. ? You have swelling, redness, or pain around your ear. ? You get a stiff neck. ? You cannot move part of your face (paralysis). ? You notice that the bone behind your ear hurts when you touch it. ? You get a very bad headache. Summary ? Otitis media means that the middle ear is red, swollen, and full of fluid. ? This condition usually goes away on its own. ? If the problem does not go away, treatment may be needed. You may be given medicines to treat the infection or to treat your pain. ? If you were prescribed an antibiotic medicine, take it as told by your doctor. Do not stop taking it even if you start to feel better. ? Keep all follow-up visits. This information is not intended to replace advice given to you by your health care provider. Make sure you discuss any questions you have with your health care provider. Document Revised: 01/25/2022 Document Reviewed: 01/25/2022 [employer] Patient Education ? 2021 RUN. Medication Information: The exam and treatment you received today in the [facility] Emergency Department were for an urgent problem and are not intended as complete care. It is important for you to follow up with a doctor, nurse practitioner, or physician?s salon shampoo assistant for ongoing care. If your symptoms become worse or you do not improve as expected and you are unable to reach your usual health care provider, you should return to the Emergency Department, we are available 24 hours a day. For those patients who have received Radiology results, the interpretation of your X-ray as given to you by our Emergency Department physician is only a preliminary report. The Radiologist will (more content not included)... Normal [facility] Urgent Care [place] 023 Urgent Care Record [facility] ? Urgent Care [address] [id number] PATIENT DISCHARGE INSTRUCTIONS Patient Information Name: NOBLE SANTIAGO Age: 37 Years Date of : 1985 Reason For Visit: UC - Sinus Pain or Congestion; UC - Ear Pain; LT EAR PAIN Arrival Time: 12/16/2022 11:36:50 Primary Care Physician: Ame Ortiz CNP Attending Physician: Cong Cobian PA-C Comment: Visit Diagnosis: Diagnoses This Visit Left otitis media (H66.92) UC - Ear Pain ([id number]) UC - Sinus Pain or Congestion ([id number]) If you received any narcotics, sedation, or any other medication that causes drowsiness for the next 24 hours, unless otherwise directed: ? Do not drive a car. ? Do not operate machinery such as power tools, lawn mowers, drills, sewing machines, or stoves ? Avoid alcoholic beverages and drugs for allergies, nerves, or sleep ? Do not make important personal or business decisions or sign any legal documents With: Address: When: Ame Ortiz [address] [place] [address] Business (1) Within 1 week Comments: Please follow-up with , call the office schedule an appointment to be seen in a week or sooner for continued care, taking amoxicillin as prescribed, take jpbe-puw-lgfzdgq ibuprofen Tylenol as needed for pain and fever, drink plenty water stay hydrated, and return back to the urgent care center for any worsening symptoms, concerns, or complications. Medication Information: The exam and treatment you received today in the [facility] Urgent Care were for an urgent problem and are not intended as complete care. It is important for you to follow up with a doctor, nurse practitioner, or physician?s salon shampoo assistant for ongoing care. If your symptoms become worse or you do not improve as expected and you are unable to reach your usual health care provider, you should return to the Emergency Department, we are available 24 hours a day. For those patients who have received Radiology results, the interpretation of your X-ray as given to you by our Urgent Care physician is only a preliminary report. The Radiologist will review your films and if there is a change in the diagnosis you will be notified by phone. Please make sure you have provided a working phone number so we can reach you if necessary. In the event that you had a lab culture while you were a patient in the Urgent Care, you will be notified by phone if there is a need to change your antibiotic. Please make sure you have provided a working phone number so we can reach you if necessary. [facility] has provided you with a complete list of medications post discharge. Please inform your track superintendent/provider of your visit and for further instruction on these medications. Any specific questions regarding your chronic medications and dosages should be discussed with your primary care physician(s) and/or pharmacist. New Medications [id number], [address], [place] [id number], [phone] amoxicillin (amoxicillin 500 mg oral capsule) 1 cap(s) Oral 3 times a day for 7 Days. Refills: 0. Medications to Continue That Have Not Changed Other Medications bifidobacterium-lacto bacillus (Probiotic Formula oral capsule) tab(s) Oral every day. cholecalciferol (Vitamin D3 1000 intl units oral capsule) 1 cap(s) Oral every day. lamoTRIgine (lamoTRIgine 25 mg oral tablet) 1 tab(s) Oral 2 times a day. propranolol (propranolol 80 mg oral capsule, extended release) 1 cap(s) Oral every day. take 1 capsule by mouth once daily. rizatriptan (Maxalt-THREAD CHECKER 10 mg oral tablet, disintegrating) 1 tab(s) Oral every day as needed for migraine headache. may repeat dose every 2 hours up to a maximum of 30 mg in 24 hours. sertraline (sertraline 100 mg oral tablet) 2 tab(s) Oral every day. Visit Information Allergies: Substance Reaction Symptoms Type Comments Betadine Rash Drug codeine Vomiting Drug Tape Rash Drug Vital Signs: Vitals and Measurements this Visit (last charted value for your 12/16/2022 visit) Vital Signs This Visit Temperature Temporal: 36.7 DegC Peripheral Pulse Rate: 76 bpm Respiratory Rate: 16 br/min Systolic Blood Pressure: 118 mmHg Diastolic Blood Pressure: 78 mmHg SpO2: 98 % Oxygen Therapy: Room air Blood Pressure Method: Manual Measurements This Visit Height/Length Measured: 162.56 cm Weight Measured: 90.72 kg Body Mass Index: 34.33 kg/m2 BSA Measured: 2.02 m2 Problems List: Problem Onset Comments IBS (irritable bowel syndrome) Patient Education Otitis Media, Adult Otitis media is a condition in which the middle ear is red and swollen (inflamed) and full of fluid. The middle ear is the part of the ear that contains bones for hearing as well as air that helps send sounds to the brain. The condition (more content not included)... Normal [facility] ER URINE PROFILEon 2 Bilirubin Ql (U) Negative Normal NEGATIVE [facility] Comment on above: Performed By: #### E RUR #### [facility] [address] [place] [address] Dr. Phnog Thayer Clarity (U) CLEAR Normal CLEAR [facility] Comment on above: Performed By: #### E RUR #### [facility] [address] [place] [address] Dr. Phong Thayer Color (U) LT. YELLOW Normal YELLOW [facility] Comment on above: Performed By: #### E RUR #### [facility] [address] [place] [address] Dr. Phong Thayer ERUAHD A micrscopic examination will be performed if indicated. Normal [facility] Comment on above: Performed By: #### E RUR #### [facility] [address] [place] [address] Dr. Phong Thayer Glucose Ql (U) Negative Normal NEGATIVE [facility] Comment on above: Performed By: #### E RUR #### [facility] [address] [place] [address] Dr. Phong Thayer Hemoglobin Ql (U) Negative Normal NEGATIVE [facility] Comment on above: Performed By: #### E RUR #### [facility] [address] [place] [address] Dr. Phong Thayer Ketones Ql (U) Negative Normal NEGATIVE [facility] Comment on above: Performed By: #### E RUR #### [facility] [address] [place] [address] Dr. Phong Thayer LEUKOCYTES Negative Normal NEGATIVE [facility] Comment on above: Performed By: #### E RUR #### [facility] [address] [place] [address] Dr. Phong Thayer Nitrite Ql (U) Negative Normal NEGATIVE [facility] Comment on above: Performed By: #### E RUR #### [facility] [address] [place] [address] Dr. Phong Thayer pH (U) 6.5 [pH] Normal 5-9 [facility] Comment on above: Performed By: #### E RUR #### [facility] [address] [place] [address] Dr. Phong Thayer SPEC GRAVITY 1.015 Normal 1.005-<=1.02 5 [facility] Comment on above: Performed By: #### E RUR #### [facility] [address] [place] [address] Dr. Phong Thayer UA PROTEIN Negative Normal NEGATIVE/ TRACE [facility] Comment on above: Performed By: #### E RUR #### [facility] [address] [place] [address] Dr. Phong Thayer UR MICRO IND NOT INDICATED Normal [facility] Comment on above: Performed By: #### E RUR #### [facility] [address] [place] [address] Dr. Phong Thayer Urobilinogen Qn (U) 0.2 {Gilma'U}/dL Normal 0.2 - 1. 0 [facility] Comment on above: Performed By: #### E RUR #### [facility] [address] [place] [address] Dr. Phong Thayer XR LSPINE 2_3 VIEWSon 2021 XR LSPINE 2_3 VIEWS IMAGES REVIEWED: XR LSPINE 2_3 VIEWS COMPARISON: None available. CLINICAL INDICATION: Pain FINDINGS/IMPRESSION: 1. Nonspecific lucency involving the left L4 transverse process on the frontal view. Given no history of injury may simply relate to superimposition of structures as opposed to nondisplaced fracture. 2. Otherwise the lumbar spine appears intact. No vertebral body height loss. 3. No significant degenerative change. No spondylolisthesis. Electronically authenticated by: DONALD CANNON Date: 2022-10-23 16:28 Normal [facility] MR head/brain wo/w conon MR head/brain wo/w con [facility] Main [place] [address] [place] [address] MRI Report Signed Patient: Noble Santiago MR#: [id number] : 1985 Acct:[id number] Age/Sex: 37 / F ADM Date: 10/13/22 Loc: MR Room: Type: [facility] Attending Dr: Lambert Gavin DO Copies to: Akira Gavin DO Ordering Provider: Akira Gavin DO Date of Service: 10/13/22 MR/MR head/brain wo/w con: R27.0 MR head/brain wo/w con 10/13/2022 5:08 PM SIGN AND SYMPTOMS: Tremor in right hand with worsening headaches and memory loss, dizziness PROTOCOL: Multiplanar multisequence MR images of the brain were obtained with and without IV contrast CONTRAST: 19 mL of intravenous ProHance COMPARISON: None. FINDINGS: Extra axial spaces: Age appropriate. Hemorrhage: None. Ventricular system: Within normal limits. Basal cisterns: Within normal limits and not effaced. Cerebral parenchyma: Normal in signal. Midline shift: None.. Cerebellum: Within normal limits. Brainstem: Within normal limits. OTHER: Calvarium: Normal marrow signal. Vascular system: Satisfactory flow voids within the anterior and posterior circulation. Visualized Paranasal sinuses: The posterior thickening is noted in the maxillary sinuses. Visualized Orbits: Within normal limits. Visualized upper cervical spine: Within normal limits. Sella and skull base: Within normal limits. MR/MR head/brain wo/w con IMPRESSION: No acute intracranial pathology or abnormal postcontrast enhancement. Impression dictated by: Yovani Arita M.D.10/14/2022 12:25 PM Dictation Location: [place] [address] Transcribed By: [facility] 10/14/22 1225 Dictated By: Yovnai Arita II, MD 10/14/221215 Signed By: 10/14/22 1225 [facility] Coding Summaryon 10-01-2022 Coding Summary HTMLBase 64 VotwavzkPEi8rAq+PGhlY WQ+FF3IWXFwW80ewOGppK 2OB0mNSB9ULTTZPKIEWO0 LIB5txWE3DJbyU0HaxrIg BybapMNeZU47ZEd8UZU1j EvqMLmxwX5wqVLuB8o0Pa YfRY14bB16SDshYQNsFbQ 3LjZpbjsgbWFy E0ydQcIdbPCkVjn+PHRhY mxlIHdpZHRoPScxMDAlJy TceIqxDL9pLa8iDMLzBBH vbGxhcHNlOiBj b7spMIMpJKvqYP1icSszL 7GklUM8ROIme1n3Tr58tS I+NYZuQXW9sNcaPRmyv30 4ZnCvk6ceUIU2 pGAoMDslPWG8D46nv2U2N NQvXXVnBDF2kGJ8wF3kgM feomoxL9UqdMJqAmU5RLR 2qKDxsM0laBna ieokcW1fLug+F95KNU1KR YZNUZ3GKru3A6XaCcpamN I+GN73YOBaHT84bEDqvKY ub4kbvSf8KjOh ONWmKOZ6pFeoBBewh5QbJ YNoL46gpFYqp4E2HQEsxA hxzOWaQxQzcLQ3kL9pEGx nrbsud9tdpbfv Wtgho4bymd84aR26L70dP YivVQFvHNL3UIAcPGHnyS krqx3dpI1qGw5+JJcqr6e dv9teqYi3HeMc LWDwedKboFgkBZX0f7KfH u94X8JrfWurk5QwYti9qi 22pIOeu2Z6lVC1ERnzLTO mzT2vBHyiVmE9 DQRvNjUxwO78vTGxPOzbJ e4bbRyruIsrQJ1yQGZygw ygIYCpiL7vIKXcbADfyLt tYP9bNDPaavwn o022AvXxDNH5LNTtcSTpF 1DocK7wNtHdMALgUJClV3 YpjWEsQFwwT926RQcsQeI 4LFEolhSiP6Yw DLIwbFvcVlM8j1O3Qz4Cp 0HvntzdHAE3PYefTJJpZf EcRdVxUuQ8Z2JaPgp2KWI rkIxiGU3tO5Fn LVWuwrmneljrbUB4GVUvE HAuzT02hTSaIHjcDp1ta1 D0g924VEOcGXAhsQ23Mn4 udDogMTBwdCBU mS0btysfb1iztfcfLcSaF PZlMFp7XQd9HGGmtJrjSw JrKLB5UtY1BDL6mZQkiR7 fnHfudsuwkG4g Oyc+Z71aiB7zKMD1HDV3o luoCHEjdgEhTN17OR75K1 RyPjwvdGFibGU+PGRpdiB hkRjxKI8nXrBo t8pkb5HoPQjsW4GoEUAoB MpdZsx7JUEgMLJ0nRI6xA 6iDEZjJMqks5J1kGI7Z7Z afqTadr8sk6zt SAKmQLuzT01wrLRvr7K5C MQbeNL9FKZihMfyBcXkjL 93Oyc+HNTfaUbgv6UlZbx ne7zmg6uwsJm3 JtDeTDEnbvPvvTveZSW9i 0AwXy68G70lVAmeVEOfXC ZqFFWqHRVccHutzb9cwE6 wIi8+PGNvbCB3 cDC6pE0xLUDzQgZ6MXlzA 472UoIutEPiXsxys0hru1 thyQm4MaYvGINpajAokKb uAFB2h8CjFv81 C79rFPboGAKrABKuUZXxE EFnrHawga9tqB4hMm6+PC 3xj7qbfg50xB93kRZ+PHR pUFH0mOwvJXur CLBqoF4mWHdbMnP3JXSjZ qFvmC21kQLmWNqpUu1lsB sscYblJX6uBEPlxpybx84 2JnGax1urXNBx oVCeHDgmZCS3F02le8Y8C FPgIMHxNFZ0kEK9lJ2ftJ lnbjogbGVmdDsgdmVydGl uFJksWVmkA351 IHRvcDsnPlBhdGllbnQgT vKpGVi9F8TjNxn7DUMgcO eoRV5ioEYoKOriEa4spOh tyXxkMO8eWHGd ysysk830OsArl7bsPMGrl IAmSNolBSG5I43qu5F9MY OgZDYiQZG3bRX0dD0gaOi nbjogbGVmdDsg peNhwArlBMilCBstA005X HRvcDsnPkJpcnRoIERhdG G8MC57CO75qQYci1W1qSU 9F5UmJCNdrntg vobbeDW5VHKtSYAffD97L s8hqRxfKu6uKDQiUSW4MY ZwcSOtV0FjnE6cJcTkVDL zLMUpA3UniLIz TNxhN427TNszItU8QFKqa nJcZ1FvQOPycTpmIuX5h7 H7Ol3PU7Y9ND95PL60kAL ot9U6cOF9N9Xs XBOfqpdfynxrtHP8RHMeB IGitL42Hi9zyLnsYm9hHZ WbEJR5DGBkoNIsE7QxxT5 yOiAjMDAwMDAw Z2CouLSuCXceU782KZsrV yN2HBBkqnKrT1WtZFFxxS fkDcH8h3C9Li9VBKw3FW0 2HI00oUQzb2A6 dKZ4I3CsLNIrppmgxphud NY1EPEwXGQjcB29Yt6nqA xuKf6aAORpMIP6ZRXauZV jT6AytG7gJfPw LGYaLWYyW6HuyDObVSodH 084UKumIpG0ILDbmpQnL5 LbNRXgjWsiZfV7w9Q1Qv0 APHEpLW17ROU8 dLM6SI95EW75P4ZdNjybo GFibGU+PHRhYmxlIHdpZH RoPScxMDAlJyBzdHlsZT0 gVj7yWQHtBWMj uQujcEUcDpIsc4bvUXEfG VbiXK9kySeyO4BnjEC9VY Vnn3f2Bi27L34lJ7RtiFS +BUHrhOT4nKP8 fA7gRnSnKdG4USwpP646Y hGvaMPuBxcdn3vwx6wmwY t0WfL7OTMggdLqjGggGJJ 5f3TjPm47Y57l IHdpZHRoPSIxNSUiIHZhb Niabw2ysI5eCc0+PGNvbC S5yTD6oP5tRoRrUpT3MEd wI714YgHxkMEa Iqobb7pel7szfUt8EvVgN SRzboJcnLusSNB0j7JlJi 97F0YkmTfhu8QjQlf1il6 3hALza3E3cGV0 M4JgTWSgfyphjQOzzRluL E9gBLOpgthcEKDtoK9hOY OrY0e1ToJgHdF7ETvxD0M qfyZ7LDQhwMNx KLqmIYY5L27ni5W5PACgF EPbCCB2oXM8qH5qhAbtzi ogbGVmdDsgdmVydGljYWw uAFkuP224OENq lQggJYSieG0tEIQvhSMcn JhtLW2pVUReznmzHqxCUE 5HLCBLUklTVElOQSBFTEF HWhD9D9WcIdn9 UUTdiWdcVA2zhGLkRPlvO d4clBtpuKghYB7kBJWwny zmSFIkeV9wHBYpxXJhyDc rRD0pJSNzgmxv w820YnLiFOZ9TGVroROrY 1NlsZ5kLnYySCNsUBUmH7 RbcIJfXExrM808KNqhErR 5JGWsonLlX7Qc AJWqlXvbCjN8o4O9Jh1vM g3rTL7wSRt6NV68MQ45fD Ogx1F0cVD8X2WaOTSxzdw buzmpbNU8VFDk FOTkxQ09sXXxMXnpKp9cl 1N9f639YBGlDZKowZ65Ey 4cgJcxBKSbqAQYxF6nshp ag5csqkmcOjIz JQMlWHa3BZi8HKJecHdmT mHaOXW7LhJ9INN7tQFsyU 4qpVjbbcgzhR5uQpg+MzY aEOSwllT2Y9Fy Dqp9OOGjnNcvOQ6orQLbP XhiMz1ijQekaAmcCE4gKR IqijbgGYBdyS1rVMNcjDQ kmBdeXB4vOKEo eiegp996RiOzIAZ9ABXcj WArA7ShjS5sBvRzMRRoUM PiX1DlmYJhARlgZ440DTl lOnT8THKnslUt C6DpISIbmMdqRhU1l7A1I z8NML4BJCA8O0IiBew2NT VwpZtgKH7ocAToLNlqNt5 srHfyuMqeCT3c PBDrhejsRSQwqC7eXUMjs JOcpKlvKR3wTILfswdeg2 50TsDxCFN3RWFocGQvL4W odG5sWdJxLVEq DQJdG5QwoDAhJPxbJ015O IhsWxF1QSHwfcVkD8ErSM JgbLgsSjP9j4U8Ur5TWTc vdGQ+JH26kv18 A7WyRpmsWvh0CFOwWDS9u DO6tJ2dFVNvDQqan6C0lM N3C8KooaFwwp9jh2xbJCC gGSvvU71gqXKb g3I6MSAzzJL6TIOfpSrlG xCabW03Mtg+PGNvbGdyb3 JmIhmrh1jql9yisUw3EzK wJSIgdmFsaWdu RFJ4r8FsSy31F11rZZrtK HRoPSIzMCUiIHZhbGlnbj 3gvH5zPo2+QZKhtDR6pLD 3zT5sFjUsQlF1 QWvzA853YkGhbDQuSiven 6dvz9jiyNc6WaXlGEKcqc XqmJgkBNS0y4YeDt51L8P diZdoh2UiThm6 jb00cLVfy3T8qCH4J5EcR KPzoqawtUEwaLeuZC2wJG VtqlzsWZYqiO5lSGQbE4b 3TmPdJvX8PSme L3VkhhW3WXJqjHAbVQEyi FBNxZ9kegelh9ezbuwiFg OvPZHmNZn7SOm0RBTqfUq fLfHhGXL9CpS1 YAD6aSRjdA1xmJhgaugrz G9wOyc+SHn2d3hufQJkYC 9pfMD0TV66HO18uNEcr5I 2pSJ5O0BvJXXq euocbjwbbPM0RBKuQEOqt C32Sa9dwAhtNd0sFADyRE Y2UTHvfMKzY1QdqP1nPhL hBXFmCBEhY7Mz fYPfMHwiR746HYljLxC7A QWvvtMoQ7NnEQLjkVyrIf E3n9Z8Zb7GAD60AE20UD2 6vVQqu9O6lKF1 N1LtKRSopjxapwiskKN5S AUyUKRvqR85Nd2xwGabJt 0qXMBlHKC8MZZxvLErO1V ecV3uGyNsYWVk AEFyR3AyeSEtTZiaC967S LljUhV3WRSogmNxB6MkNI KspJymXnN7s2P1Ik5DHn4 4HM65QZ04wEWn q0F8mWC7C0PqXYOlcxbau xupnIX7NUFwLGKwyE03Be 8tcXqjJn2pYMHtKWZ5QHR yfWKaU4CgaT6w AqMaXISaUVQlI3EdyAWjG BbeQ455VQvnIrA8OIDtxq YhP1AoCOVtuPlzDfG7b4S 0Xg2WWOusqxo0 A7LzJgzigYI+FD08MBSeS V31tBSphDOmz6cegXl3Nh WvRCJlTGU8cZgiHNkbr3S dUOVbG81ejMIz c2U (more content not included)... [facility] Outside Recordson 09-30-2022 Outside Records [id number]. [id number] [facility] ED Clinical Summaryon 2021 ED Clinical Summary [facility] ? Urgent Care [address] [place] [id number] Clinical Summary PERSON INFORMATION Name: NOBLE SANTIAGO Age: 37 Years Sex: FEMALE : 1985 MRN: Acct#: Visit Reason: Medical screening exam; ADULT [employer]CHOOL PH[employer] Arrival: 09/29/2022 10:32:28 Discharge: 09/29/2022 11:15:00 LOS: 000 00:43 Check In: 09/29/2022 10:32:28 Checkout: 09/29/2022 11:15:00 Address: [address] [place] [address] PCP: Ame Ortiz CNP PROVIDER INFORMATION Provider Role Assigned Unassigned Abhi Finney PA-C ED PA 09/29/2022 10:34:44 Sera Cvaazos ED Nurse 09/29/2022 10:59:52 VITALS INFORMATION Vital Sign Triage Latest Temperature Tympanic Temperature Temporal Artery Pulse Rate O2 Sat Respiratory Rate Blood Pressure /58 mmHg /58 mmHg MEDICAL INFORMATION Medications Given: Allergy Information: Tape; Betadine; codeine PHYSICIAN DOCUMENTATION DISCHARGE INFORMATION: Discharge Disposition: Home Discharge Location: Home PATIENT EDUCATION INFORMATION Instructions: Follow-Up: DIAGNOSIS: Patient Understands: Yes - Patient/family/caregi regina verbalizes understanding of instructions given Comment: [facility] ED Patient Summaryon 022 ED Patient Summary [facility] ? Urgent Care [address] [place] [address] PATIENT DISCHARGE INSTRUCTIONS Patient Information Name: NOBLE SANTIAGO Age: 37 Years Date of : 1985 Reason For Visit: Medical screening exam; ADULT SCHOOL PHYSICAL Arrival Time: 09/29/2022 10:32:28 Primary Care Physician: Ame Ortiz CNP Attending Physician: Abhi Finney PA-C Comment: Patient Education Medication Information: The exam and treatment you received today in the [facility] Emergency Department were for an urgent problem and are not intended as complete care. It is important for you to follow up with a doctor, nurse practitioner, or physician?s salon shampoo assistant for ongoing care. If your symptoms become worse or you do not improve as expected and you are unable to reach your usual health care provider, you should return to the Emergency Department, we are available 24 hours a day. For those patients who have received Radiology results, the interpretation of your X-ray as given to you by our Emergency Department physician is only a preliminary report. The Radiologist will review your films and if there is a change in the diagnosis you will be notified by phone. Please make sure you have provided a working phone number so we can reach you if necessary. In the event that you had a lab culture while you were a patient in the Emergency Department, you will be notified by phone if there is a need to change your antibiotic. Please make sure you have provided a working phone number so we can reach you if necessary. [facility] Emergency Department has provided you with a complete list of medications post discharge. Please inform your track superintendent/provider of your visit and for further instruction on these medications. Any specific questions regarding your chronic medications and dosages should be discussed with your primary care physician(s) and/or pharmacist. Medications to Continue That Have Not Changed Other Medications APAP/butalbital/caffe ine/codeine (Fioricet with Codeine 50 mg-300 mg-40 mg-30 mg oral capsule) 1 cap(s) Oral Every 4 hours as needed for headache. ARIPiprazole (Abilify 5 mg oral tablet) 1 tab(s) Oral every day. bifidobacterium-lacto bacillus (Probiotic Formula oral capsule) tab(s) Oral every day. cariprazine (Vraylar 4.5 mg oral capsule) 1 cap(s) Oral every day. cholecalciferol (Vitamin D3 1000 intl units oral capsule) 1 cap(s) Oral every day. mupirocin topical (mupirocin 2% topical ointment) 1 suraj Topical 3 times a day as needed dry nasal passages. omeprazole (PriLOSEC 40 mg oral delayed release capsule) 1 cap(s) Oral every day. rizatriptan (Maxalt-THREAD CHECKER 10 mg oral tablet, disintegrating) 1 tab(s) Oral every day as needed for migraine headache. may repeat dose every 2 hours up to a maximum of 30 mg in 24 hours. sertraline (sertraline 100 mg oral tablet) 2 tab(s) Oral every day. topiramate (topiramate 25 mg oral capsule, extended release) 1 cap(s) Oral 2 times a day. Visit Information Visit Diagnosis: Diagnoses This Visit Medical screening exam ([id number]) If you received any narcotics, sedation, or any other medication that causes drowsiness for the next 24 hours, unless otherwise directed: ? Do not drive a car. ? Do not operate machinery such as power tools, lawn mowers, drills, sewing machines, or stoves ? Avoid alcoholic beverages and drugs for allergies, nerves, or sleep ? Do not make important personal or business decisions or sign any legal documents Reason for Visit: here for physical Allergies: Substance Reaction Symptoms Type Comments Betadine Rash Drug codeine Vomiting Drug Tape Rash Drug Vital Signs: Vitals and Measurements this Visit (last charted value for your 09/29/2022 visit) Vital Signs This Visit Temperature Tympanic: 36.7 DegC Peripheral Pulse Rate: 76 bpm Respiratory Rate: 16 br/min Systolic Blood Pressure: 112 mmHg Diastolic Blood Pressure: 58 mmHg Blood Pressure Method: Manual Measurements This Visit Weight Measured: 92.1 kg Problems List: Problem Onset Comments Hypoglycemia IBS (irritable bowel syndrome) Major Tests and Procedures: The following procedures and tests were performed during your ED visit. Laboratory Radiology Cardiology Viruses or Bacteria What?s got you sick? Antibiotics only treat bacterial infections. Viral illnesses cannot be treated with antibiotics. When an antibiotic is not prescribed, ask your healthcare professional for tips on how to relieve symptoms and feel better. Usual Cause Illness Viruses Bacteria Antibiotic Needed Cold/Runny Nose NO Bronchitis/Chest Cold (in otherwise healthy children and adults) NO Whooping Cough Yes Flu NO Strep Throat Yes Sore Throat (except strep) NO Fluid in the middle ear (otitis media with effusion) NO Urinary Tract Infection Yes Antibiotics Aren?t Always the Ans (more content not included)... 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 She is cleared for work. Exam is normal. See scanned document. GENERAL: Awake, alert and oriented to person, place and situation. Well nourished, well developed, non toxic, NAD. Moves around the department freely. EYES: Pupils equal, round and react to light. EOMI. ENMT: Ears: TM's and external canals with normal inspection bilaterally. Nose: normal inspection. Mouth: oral mucosa is pink and still moist. Throat: normal inspection. NECK: No bony TTP, normal range of motion, no meningismus, trachea is midline. No anterior or posterior lymphadenopathy. CARDIOVASCULAR: Regular rate and rhythm. +S1 +S2. No murmurs or rubs. RESPIRATORY: Clear to auscultation bilaterally without rales, rhonchi or wheeze. ABDOMEN: Soft, completely non tender, abdomen is non distended, without rebound tenderness, guarding or peritoneal signs. Bowel sounds present times 4 quadrants and normoactive. No bruits. No masses. No CVA TTP. BACK: There is no bony TTP, no scoliosis, full ROM without difficulty. EXTREMITIES: No cyanosis, clubbing or edema. Good muscle tone, moves all extremities fully. Squat normal. SKIN: Normal inspection, no visualized rash. NEUROLOGIC: Light touch sensation in tact, strength 5/5 in bilateral upper and lower extremities. Normal reflexes. Steady gait. Normal mentation. No focal neurological deficits appreciated. PSYCHIATRIC: Mood and affect appropriate. Health Status Allergies: Allergic Reactions (Selected) Severity Not Documented Betadine- Rash. Codeine- Vomiting. Tape- Rash.. Medications: (Selected) Documented Medications Documented Abilify 5 mg oral tablet: 5 mg = 1 tab(s), PO, Daily, 30 tab(s), 0 Refill(s) Fioricet with Codeine 50 mg-300 mg-40 mg-30 mg oral capsule: 1 cap(s), PO, q4hr, PRN: for headache, 0 Refill(s) .5/30 oral tablet: 1 tab(s), PO, Daily, 28 tab(s), 0 Refill(s) Maxalt-THREAD CHECKER 10 mg oral tablet, disintegratin mg = 1 tab(s), PO, Daily, may repeat dose every 2 hours up to a maximum of 30 mg in 24 hours, PRN: for migraine headache, 6 tab(s), 0 Refill(s) PriLOSEC 40 mg oral delayed release capsule: 40 mg = 1 cap(s), PO, Daily, 30 cap(s), 0 Refill(s) Probiotic Formula oral capsule: tab(s), PO, Daily, 0 Refill(s) Vitamin D3 1000 intl units oral capsule: 1,000 International_Unit = 1 cap(s), PO, Daily, 75 cap(s), 0 Refill(s) mupirocin 2% topical ointment: 1 suraj, TOP, TID, PRN: dry nasal passages, 15 gm, 0 Refill(s) sertraline 50 mg oral tablet: 50 mg = 1 tab(s), PO, Daily, 30 tab(s), 0 Refill(s) topiramate 25 mg oral capsule, extended release: 25 mg = 1 cap(s), PO, BID, 7 cap(s), 0 Refill(s). Past Medical/ Family/ Social History Medical history: No active or resolved past medical history items have been selected or recorded.. Surgical history: Diagnostic laparoscopy ([id number]) on 07/24/2019 at 34 Years. Tonsillectomy and adenoidectomy ([id number]). Lump ([id number]). Comments: 07/16/2019 11:30 Arabella Day RN left axilla Cholecystectomy ([id number]). Keloid of skin ([id number]). Comments: 07/16/2019 11:31 Arabella Day RN left ear Foot ([id number]). Comments: 07/16/2019 11:32 Arabella Day RN titanium implant left ankle Dilatation and curettage ([id number]). Tooth extraction, multiple ([id number]). Comments: 07/16/2019 11:33 Arabella Day RN wisdom Sinus ([id number]). Comments: 07/16/2019 11:33 Arabella Day RN x2 Colonoscopy ([id number]). Esophagogastroduodeno scopy ([id number]).. Family history: No family history items have been selected or recorded.. Social history: Social & Psychosocial Habits Alcohol 07/16/2019 Alcohol Use: Never Substance Abuse 07/16/2019 Substance use: Past Type: Marijuana Comment: at age 16 - 07/16/2019 11:47 Arabella Willoughby RN Tobacco 07/16/2019 Smoking tobacco use: Never (less than 100 in l . Problem list: Active Problems (2) Hypoglycemia IBS (irritable bowel syndrome) . [Electronically Signed on: 09/29/2022 11:09 EST] Abhi Finney PA-C [Verified on: 09/29/2022 11:09 EST] Abhi Finney PA-C Normal [facility] Urgent Care [place] 022 Urgent Care Record [facility] ? Urgent Care [address] [place] [address] PATIENT DISCHARGE INSTRUCTIONS Patient Information Name: NOBLE SANTIAGO Age: 37 Years Date of : 1985 Reason For Visit: Medical screening exam; ADULT SCHOOL PHYSICAL Arrival Time: 09/29/2022 10:32:28 Primary Care Physician: Ame Ortiz CNP Attending Physician: Abhi Finney PA-C Comment: Visit Diagnosis: Diagnoses This Visit Medical screening exam ([id number]) If you received any narcotics, sedation, or any other medication that causes drowsiness for the next 24 hours, unless otherwise directed: ? Do not drive a car. ? Do not operate machinery such as power tools, lawn mowers, drills, sewing machines, or stoves ? Avoid alcoholic beverages and drugs for allergies, nerves, or sleep ? Do not make important personal or business decisions or sign any legal documents Medication Information: The exam and treatment you received today in the [facility] Urgent Care were for an urgent problem and are not intended as complete care. It is important for you to follow up with a doctor, nurse practitioner, or physician?s salon shampoo assistant for ongoing care. If your symptoms become worse or you do not improve as expected and you are unable to reach your usual health care provider, you should return to the Emergency Department, we are available 24 hours a day. For those patients who have received Radiology results, the interpretation of your X-ray as given to you by our Urgent Care physician is only a preliminary report. The Radiologist will review your films and if there is a change in the diagnosis you will be notified by phone. Please make sure you have provided a working phone number so we can reach you if necessary. In the event that you had a lab culture while you were a patient in the Urgent Care, you will be notified by phone if there is a need to change your antibiotic. Please make sure you have provided a working phone number so we can reach you if necessary. [facility] Urgent Care has provided you with a complete list of medications post discharge. Please inform your track superintendent/provider of your visit and for further instruction on these medications. Any specific questions regarding your chronic medications and dosages should be discussed with your primary care physician(s) and/or pharmacist. Medications to Continue That Have Not Changed Other Medications APAP/butalbital/caffe ine/codeine (Fioricet with Codeine 50 mg-300 mg-40 mg-30 mg oral capsule) 1 cap(s) Oral Every 4 hours as needed for headache. ARIPiprazole (Abilify 5 mg oral tablet) 1 tab(s) Oral every day. bifidobacterium-lacto bacillus (Probiotic Formula oral capsule) tab(s) Oral every day. cholecalciferol (Vitamin D3 1000 intl units oral capsule) 1 cap(s) Oral every day. ethinyl estradiol-norethindro ne (Junel Fe 1.5/30 oral tablet) 1 tab(s) Oral every day. mupirocin topical (mupirocin 2% topical ointment) 1 suraj Topical 3 times a day as needed dry nasal passages. omeprazole (PriLOSEC 40 mg oral delayed release capsule) 1 cap(s) Oral every day. rizatriptan (Maxalt-THREAD CHECKER 10 mg oral tablet, disintegrating) 1 tab(s) Oral every day as needed for migraine headache. may repeat dose every 2 hours up to a maximum of 30 mg in 24 hours. sertraline (sertraline 50 mg oral tablet) 1 tab(s) Oral every day. topiramate (topiramate 25 mg oral capsule, extended release) 1 cap(s) Oral 2 times a day. Visit Information Allergies: Substance Reaction Symptoms Type Comments Betadine Rash Drug codeine Vomiting Drug Tape Rash Drug Vital Signs: Vitals and Measurements this Visit (last charted value for your 09/29/2022 visit) No vitals and measurements documented Problems List: Problem Onset Comments Hypoglycemia IBS (irritable bowel syndrome) Patient Education Viruses or Bacteria What?s got you sick? Antibiotics only treat bacterial infections. Viral illnesses cannot be treated with antibiotics. When an antibiotic is not prescribed, ask your healthcare professional for tips on how to relieve symptoms and feel better. Usual Cause Illness Viruses Bacteria Antibiotic Needed Cold/Runny Nose NO Bronchitis/Chest Cold (in otherwise healthy children and adults) NO Whooping Cough Yes Flu NO Strep Throat Yes Sore Throat (except strep) NO Fluid in the middle ear (otitis media with effusion) NO Urinary Tract Infection Yes Antibiotics Aren?t Always the Answer www.cdc.gov/getsmart GET SMART Know When Antibiotics Work U.S. Department of Health and Human Services Centers for Disease Control and Prevention July 2014 Normal [facility] T3, TOTAL (TRIIODOTHYRONINE) on 09-16-2022 T3, TOTAL 132 ng/dL Normal 71-180 [facility] Comment on above: Performed By: #### T 3TOTAL ####[facility] [address] [place], [place] [address]JfDr. Phong Thayer CBC AUTO DIFFon 09-15-2022 BASO # 0.0 103/ul Normal 0.0-0.1 [facility] Comment on above: Performed By: #### C BC #### [facility] [address] [place], [place] [address] Dr. Phong Thayer Basophils/100 WBC (Bld) 0.3 % Normal 0.2-2.0 [facility] Comment on above: Performed By: #### C BC #### [facility] [address] [place] [address] Dr. Phong Thayer EO # 0.1 103/ul Normal 0.0-0.7 [facility] Comment on above: Performed By: #### C BC #### [facility] [address] [place] [address] Dr. Phong Thayer Eosinophils/100 WBC (Bld) 0.8 % Critically low 0.9-7.0 [facility] Comment on above: Performed By: #### C BC #### [facility] [address] [place] [address] Dr. Phong Thayer Erythrocyte distribution width (RBC) [Ratio] 12.5 % Normal 11.0-15.0 [facility] Comment on above: Performed By: #### C BC #### [facility] [address] [place] [address] Dr. Phong Thayer Hematocrit (Bld) [Volume fraction] 42.2 % Normal 36.0-48.0 [facility] Comment on above: Performed By: #### C BC #### [facility] [address] [place] [address] Dr. Phong Thayer Hemoglobin (Bld) [Mass/Vol] 14.3 g/dL Normal 12.0-16.0 [facility] Comment on above: Performed By: #### C BC #### [facility] [address] [place] [address] Dr. Phong Thayer IG # 0.01 10e3/ul Normal 0.00-0.03 [facility] Comment on above: Performed By: #### C BC #### [facility] [address] [place] [address] Dr. Phong Thayer IG % 0.1 % Normal 0.0-0.5 [facility] Comment on above: Performed By: #### C BC #### [facility] [address] [place] [address] Dr. Phong Thayer LYMPH # 2.5 103/ul Normal 1.2-3.8 [facility] Comment on above: Performed By: #### C BC #### [facility] [address] [place] [address] Dr. Phong Thayer Lymphocytes/100 WBC (Bld) 33.7 % Normal 20.5-60.0 [facility] Comment on above: Performed By: #### C BC #### [facility] [address] [place] [address] Dr. Phong Thayer MANUAL DIFF REQ NO Normal [facility] Comment on above: Performed By: #### C BC #### [facility] [address] [place] [address] Dr. Phong Thayer MCH (RBC) [Entitic mass] 29.1 pg Normal 26.7-34.0 [facility] Comment on above: Performed By: #### C BC #### [facility] [address] [place] [address] Dr. Phong Thayer MCHC (RBC) [Mass/Vol] 33.9 g/dL Normal 29.9-35.2 [facility] Comment on above: Performed By: #### C BC #### [facility] [address] [place] [address] Dr. Phong Thayer MCV (RBC) [Entitic vol] 85.9 fL Normal 81.0-99.0 [facility] Comment on above: Performed By: #### C BC #### [facility] [address] [place] [address] Dr. Phong Thayer MONO # 0.4 103/ul Normal 0.3-0.8 [facility] Comment on above: Performed By: #### C BC #### [facility] [address] [place] [address] Dr. Phong Thayer Monocytes/100 WBC (Bld) 5.3 % Normal 1.7-12.0 [facility] Comment on above: Performed By: #### C BC #### [facility] [address] [place] [address] Dr. Phong Thayer NEUT # 4.5 103/ul Normal 1.4-6.5 [facility] Comment on above: Performed By: #### C BC #### [facility] [address] [place] [address] [address] Phong Thayer Neutrophils/100 WBC (Bld) 59.8 % Normal 43.0-75.0 [facility] Comment on above: Performed By: #### C BC #### [facility] [address] [place] [address] [address] Phong Thayer Platelet mean volume (Bld) [Entitic vol] 10.2 fL Normal 9.5-13.5 [facility] Comment on above: Performed By: #### C BC #### [facility] [address] [place] [address] [address] Phong Thayer PLT 227 103/ul Normal 150-450 [facility] Comment on above: Performed By: #### C BC #### [facility] [address] [place] [address] Dr. Phong Thayer RBC 4.91 106/ul Normal 4.20-5.40 [facility] Comment on above: Performed By: #### C BC #### [facility] [address] [place] [address] [address] Phong Thayer WBC 7.5 103/ul Normal 4.0-11.0 [facility] Comment on above: Performed By: #### C BC #### [facility] [address] [place] [address] Dr. Phong Thayer FREE THYROXINE INDEX T7on FTI 2.37 Normal 1.30-4.50 [facility] Comment on above: Performed By: #### T SH, T4, T7, CMP #### [facility] [address] [place] [address] [address] Phong Thayer T3U 32.0 % Normal 30.0-39.0 [facility] Comment on above: Performed By: #### T SH, T4, T7, CMP #### [facility] [address] [place] [address] [address] Phong Thayer LIPID PROFILEon 09-15-2022 CHOL-HDL RATIO NORM SEE BELOW Normal [facility] Comment on above: Result Comment: 3.3 - 4.4 LOW RISK 4.4 - 7.1 AVERAGE RISK 7.1 - 11.0 MODERATE RISK >11.0 HIGH RISK Performed By: #### L IPID ####[facility] [address] [place], [place] [address]Ee. Phong Thayer Cholesterol [Mass/Vol] 163 mg/dL Normal <=200 [facility] Comment on above: Performed By: #### L IPID ####[facility] [address] [place], [place] [address]Cy. Phong Thayer Cholesterol in HDL [Mass/Vol] 57 mg/dL Normal 40-60 [facility] Comment on above: Performed By: #### L IPID ####[facility] [address] [place], [place] [address]Kb. Phong Thaeyr Cholesterol in LDL [Mass/Vol] 69.8 mg/dL Normal [facility] Comment on above: Performed By: #### L IPID ####[facility] [id number] [id number]. Phong Thayer Cholesterol.total/Ch olesterol in HDL [Mass ratio] 2.9 {ratio} Normal [facility] Comment on above: Performed By: #### L IPID ####[facility] [address] [place], [place] [address]Jk. Phong Thayer HDL NORMAL > or = 60 mg/dl - LO W CARDIOVASCULAR RISK <40 mg/dl - HIGH CARDIOVASCULAR RISK Normal [facility] Comment on above: Performed By: #### L IPID ####[facility] [address] [place], [place] [address]Qt. Phong Thayer LDL CALC NORMAL SEE BELOW Normal [facility] Comment on above: Result Comment: <100 mg/dl OPTIMAL 100 - 129 mg/dl NEAR OR ABOVE OPTIMAL 130 - 159 mg/dl BORDERLINE HIGH 160 - 189 mg/dl HIGH >190 mg/dl VERY HIGH Performed By: #### L IPID ####[facility] [address] [place], [place] [address]Vr. Phong Thayer Triglyceride [Mass/Vol] 181 mg/dL Critically high <=150 [facility] Comment on above: Performed By: #### L IPID ####[facility] [address] [place] [address] [address]Dr. Phong Thayer VLDL CALC 36.2 mg/dL Normal [facility] Comment on above: Performed By: #### L IPID ####[facility] [address] [id number]. Phong Thayer PROF 14(COMP METB)on 022 Albumin [Mass/Vol] 3.6 g/dL Normal 3.4-5.0 [facility] Comment on above: Performed By: #### T SH, T4, T7, CMP #### [facility] [address] [address] [address] Phong Thayer Albumin/Globulin [Mass ratio] 1.0 {ratio} Normal [facility] Comment on above: Performed By: #### T SH, T4, T7, CMP #### [facility] [address] [address] [address] Phong Thayer ALP [Catalytic activity/Vol] 90 U/L Normal 46-116 [facility] Comment on above: Performed By: #### T SH, T4, T7, CMP #### [facility] [address] [address] [address] Phong Thayer ALT [Catalytic activity/Vol] 27 U/L Normal 14-59 [facility] Comment on above: Performed By: #### T SH, T4, T7, CMP #### [facility] [address] [address] [address] Phong Thayer Anion gap [Moles/Vol] 14.2 mmol/L Normal [facility] Comment on above: Performed By: #### T SH, T4, T7, CMP #### [facility] [address] [address] [address] Phong Thayer AST [Catalytic activity/Vol] 13 U/L Critically low 15-37 [facility] Comment on above: Performed By: #### T SH, T4, T7, CMP #### [facility] [address] [address] [address] Phong Thayer Bilirubin [Mass/Vol] 0.2 mg/dL Normal 0.2-1.0 [facility] Comment on above: Performed By: #### T SH, T4, T7, CMP #### [facility] [address] [place] [address] Dr. Phong Thayer Calcium [Mass/Vol] 9.0 mg/dL Normal 8.5-10.1 [facility] Comment on above: Performed By: #### T SH, T4, T7, CMP #### [facility] [address] [place] [address] Dr. Phong Thayer Chloride [Moles/Vol] 103 mmol/L Normal 98-107 [facility] Comment on above: Performed By: #### T SH, T4, T7, CMP #### [facility] [address] [place] [address] Dr. Phong Thayer CO2 [Moles/Vol] 23.9 mmol/L Normal 21.0-32.0 [facility] [place] [facility] Comment on above: Performed By: #### T SH, T4, T7, CMP #### [facility] [address] [place] [address] Dr. Phong Thayer Creatinine [Mass/Vol] 0.76 mg/dL Normal 0.55-1.02 [facility] Comment on above: Performed By: #### T SH, T4, T7, CMP #### [facility] [address] [place] [address] Dr. Phong Thayer EGFR-AF EAST [place] >60 Normal >=60 [facility] [place] [facility] Comment on above: Performed By: #### T SH, T4, T7, CMP #### [facility] [address] [place] [address] Dr. Phong Thayer EGFR-NON AF [place] >60 Normal >=60 [facility] Comment on above: Performed By: #### T SH, T4, T7, CMP #### [facility] [address] [place] [address] Dr. Phong Thayer Globulin (S) [Mass/Vol] 3.6 g/dL Normal [facility] Comment on above: Performed By: #### T SH, T4, T7, CMP #### [facility] [address] [place] [address] Dr. Phong Thayer Glucose [Mass/Vol] 95 mg/dL Normal 74-106 [facility] Comment on above: Performed By: #### T SH, T4, T7, CMP #### [facility] [address] [place] [address] Dr. Phong Thayer Potassium [Moles/Vol] 4.1 mmol/L Normal 3.5-5.1 [facility] Comment on above: Performed By: #### T SH, T4, T7, CMP #### [facility] [address] [place] [address] Dr. Phong Thayer Protein [Mass/Vol] 7.2 g/dL Normal 6.4-8.2 [facility] Comment on above: Performed By: #### T SH, T4, T7, CMP #### [facility] [address] [place] [address] Dr. Phong Thayer Sodium [Moles/Vol] 137 mmol/L Normal 136-145 [facility] Comment on above: Performed By: #### T SH, T4, T7, CMP #### [facility] [address] [place] [address] Dr. Phong Thayer Urea nitrogen [Mass/Vol] 13.0 mg/dL Normal 7.0-18.0 [facility] Comment on above: Performed By: #### T SH, T4, T7, CMP #### [facility] [address] [place] [address] Dr. Phong Thayer Urea nitrogen/Creatinine [Mass ratio] 17.1 mg/mg Normal [facility] Comment on above: Performed By: #### T SH, T4, T7, CMP #### [facility] [address] [place] [address] Dr. Phong Thayer T4on 09-15-2022 T4 [Mass/Vol] 7.40 ug/dL Normal 4.80-13.90 [facility] Comment on above: Performed By: #### T SH, T4, T7, CMP #### [facility] [address] [address] [address] Phong Thayer TSHon 09-15-2022 TSH 2.515 uIU/mL Normal 0.358-3.740 [facility] Comment on above: Performed By: #### T SH, T4, T7, CMP #### [facility] [address] [address] [address] Phong Thayer VITAMIN B12on 09-15-2022 Cobalamin (Vitamin B12) [Mass/Vol] 423.0 pg/mL Normal 193.0-986.0 [facility] Comment on above: Performed By: #### V ITCLAIRE, VITB12 ####[facility] [address] [place] [address] [address]DrAnnalee Thayer VITAMIN D 25 OHon 09-15-2022 VIT D 25-OH 28.3 ng/mL Normal [facility] Comment on above: Performed By: #### V ITCLAIRE, VITB12 ####[facility] [address] [address]Dr. Phong Thayer VIT D RANGES SEE BELOW Normal [facility] Comment on above: Result Comment: <20 ng/mL Vit D deficient 20 - <30 ng/mL Vit D insufficient 30 - 100 ng/mL Vit D sufficient >100 ng/mL Potential Toxicity Performed By: #### V ITAD, VITB12 ####[facility] [address] [place] [address]DrAnnalee Thayer A1C HEMOGLOBINon 09-02-2022 HbA1c (Bld) [Mass fraction] 5.1 % [employer] Other HbA1c (Bld) [Mass fraction]o n 09-02-2022 A1C HEMOGLOBIN [employer] [facility] Other [facility] - Reference Lab Resultso n 07-19-2022 Lab - Reference Lab Results [id number]#1.0 0OTGTIFF [facility] T-Spoton 07-16-2022 T-Spot See Report Normal [facility] Comment on above: Performed By: #### 5 [id number], [id number], [id number] ####[facility] (DEFAULT)[address] [place] [address] HBSab Qnt LCon 07-14-2022 Hep B Surf Ab Quant LC 301.3 mIU/mL Invalid Interpretation Code Immunity>9.9 [facility] Comment on above: Result Comment: Stat us of Immunity Anti-HBs Level Inconsistent with Immunity 0.0 - 9.9 Consistent with Immunity >9.9 Performed At: [address] [id number] Pancho Higgins PhD Ph:[phone] Performed By: #### 5 [id number], [id number] ####[facility] (DEFAULT)[address] [place] [address] Lab - Toxicology Resultson 0 07-14-2022 Lab - Toxicology Results [id number]#1.0 0OTGTIFF Normal [facility] Measles/Mumps/Rubella Immuni ty LCon 07-14-2022 Mumps Abs, IgG LC 38.4 AU/mL Invalid Interpretation Code Immune >10.9 [facility] Comment on above: Result Comment: Nega tive <9.0 Equivocal 9.0 - 10.9 Positive >10.9 A positive result generally indicates past exposure to Mumps virus or previous vaccination. Performed At: [facility] [address] [place], [place] [id number] Pancho Higgins PhD Ph:[phone] Performed By: #### 5 [id number], [id number] ####[facility] (DEFAULT)[address] [place] [address] Rubella Antibodies, IgG LC 5.78 index Invalid Interpretation Code Immune >0.99 [facility] Comment on above: Result Comment: Non- immune <0.90 Equivocal 0.90 - 0.99 Immune >0.99 Performed By: #### 5 [id number], [id number], [id number] ####[facility] (DEFAULT)[address] [place] [address] Rubeola Ab, IgG, EIA LC 72.4 AU/mL Invalid Interpretation Code Immune >16.4 [facility] Comment on above: Result Comment: Nega tive <13.5 Equivocal 13.5 - 16.4 Positive >16.4 Presence of antibodies to Rubeola is presumptive evidence of immunity except when acute infection is suspected. Performed By: #### 5 [id number], [id number], [id number] ####[facility] (DEFAULT)[address] [place] [address] Nicotine Metabolite, Urine L Con 07-14-2022 Cotinine LC Negative Invalid Interpretation Code [id number] [facility] Comment on above: Result Comment: Perf ormed At: [facility] [address] [place], [place] [id number] Mark Puentes PhD Ph:[phone] Performed By: #### 1 [id number] ####[facility] (DEFAULT)[address] [place] [address] XR FOOT AIDA MIN 3 VIEWSon XR FOOT AIDA MIN 3 VIEWS EXAMINATION: XR ANKLE AIDA MIN 3 VIEWS, XR FOOT AIDA MIN 3 VIEWS HISTORY: Bilateral ankle joint pain ; bilateral foot pain COMPARISON: Left foot 09/15/2021, bilateral feet and ankles 01/22/2021 FINDINGS: RIGHT FINDINGS: BONES: Slight valgus deviation. Uniform spacing of the ankle joint. No fracture, dislocation, bone lesion. Flattening of the plantar arch. SOFT TISSUES: No visible soft tissue swelling. OTHER: Negative. LEFT FINDINGS: BONES: Slight valgus deviation. Uniform spacing of the ankle joint. Prior anterior and posterior calcaneal osteotomy. Mechanical fusion of the first tarsal-metatarsal joint via plate and screws. Spacer placement within the first tarsal-metatarsal joint space. Fusion of the base of the first and second metatarsals. SOFT TISSUES: No visible soft tissue swelling. OTHER: Negative. IMPRESSION: RIGHT CONCLUSION: 1. Mild valgus deformity of the ankle joint and flattening of the plantar arch. LEFT CONCLUSION: 1. Stable surgical changes without evidence of hardware failure or change in alignment. Electronically authenticated by: RAFAEL COATS Date: 2022-07-07 13:58 Normal [facility] Urine culture routineOrdered By: AME ORTIZ on 05-27-2022 Bacteria identified Cx Nom (U) Staphylococcus saprophyticus [facility] Urinalysis - AUTOMATEDon Appearance (U) clear [employer] Other Bilirubin Ql (U) Negative [employer] Other Color (U) lt. yellow [employer] Other Glucose Ql (U) Negative [employer] Other Hemoglobin Ql (U) moderate [employer] Other Ketones Ql (U) Negative [employer] Other Leukocyte esterase Test strip Ql (U) small [employer] Other Nitrite Ql (U) Negative [employer] Other pH (U) 6.0 [pH] [employer] Other Protein Ql (U) Negative [employer] Other Specific gravity (U) [Rel density] 1.010 [employer] Other Urobilinogen (U) [Mass/Vol] 0.2 mg/dL [employer] Other Urinalysis - AUTOMATED [employer] Other Urine Cultureon 05-24-2022 Bacteria identified Cx Nom (U) Reason for Exam Dysuria Urine ORGANISM: Staphylococcus saprophyticus (O:STASAP) [place] Count >100,000 Aerobic SAAD Charge (PC45) ---- SUSCEPTIBILITY --- ORGANISM: O:STASAP ANTIBIOTIC INTERPRETATION SAAD Amoxacillin/K Clavulanate R <4/2 Ampicillin R <2 Ampicillin/Sulbactam R <8/4 Cefazolin R <8 Ceftriaxone R >32 Ciprofloxacin S <1 Daptomycin S <1 Levofloxacin S <1 Linezolid S <2 Nitrofurantoin S <32 Oxacillin R >2 Penicillin R 2 Rifampin S <1 Tetracycline S <4 Trimethoprim/Sulfamet hoxazole S <0.5/9.5 Vancomycin S 1 S = SUSCEPTIBLE I = INTERMEDIATE R = RESISTANT BLANK = DATA NOT AVAILABLE, OR DRUG NOT ADVISABLE OR TESTED R* = RESISTANCE DUE TO EXTENDED SPECTRUM BETA-LACTAMASES ESBL = EXTENDED SPECTRUM BETA-LACTAMASE TFG = THYMIDINE-DEPENDENT STRAIN OFELIA = BETA-LACTAMASE POSITIVE IB = INDUCIBLE BETA-LACTAMASE. APPEARS IN PLACE OF 'S' WITH SPECIES KNOWN TO POSSESS INDUCIBLE BETA-LACTAMASES. POTENTIALLY THEY MAY BECOME RESISTANT TO ALL B-LACTAM DRUGS. PERFORMED BY: [facility] [address] [facility] [place] [id number] PATHOLOGIST GAS ANALYST TABITHA KONG M.D. Normal [facility] Comment on above: Performed By: #### C UU #### [facility] [address] Bacteria identified Cx Nom (U) [employer] Other XR hand LT min 3V*on 021 XR hand LT min 3V* [facility] [employer] [facility] [employer] Other XR hand LT min 3V* [facility] [employer] Other XR hand LT min 3V* [address] [facility] [employer] Other XR hand LT min 3V* [place] [address] [employer] [facility] [employer] Other XR hand LT min 3V* XRay Report [employer] Other XR hand LT min 3V* Signed [employer] Other XR hand LT min 3V* Patient: Noble Santiago MR#: [id number] [employer] Other XR hand LT min 3V* 7804 [employer] Other XR hand LT min 3V* : 1985 Acct:[id number] [employer] Other XR hand LT min 3V* Age/Sex: 36 / F ADM Date: 10/02/21 [employer] Other XR hand LT min 3V* Loc: XDUCLY [facility]: [facility] [employer] Other XR hand LT min 3V* Attending Dr: Sera ALFORD [employer] Other XR hand LT min 3V* Ordering Provider: PRASHANTH Jordan [employer] Other XR hand LT min 3V* Date of Service: 10/02/21 [employer] Other XR hand LT min 3V* XR/XR hand LT min 3V*: Finger pain, left [employer] Other XR hand LT min 3V* Copies to: PRASHANTH Jordan [employer] Other XR hand LT min 3V* 3 viewsLEFT hand plain film [employer] Other XR hand LT min 3V* COMPARISON:None N [facility] [employer] Other XR hand LT min 3V* HISTORY:LEFT hand injury [employer] Other XR hand LT min 3V* No fracture, dislocation or focal soft tissue abnormality seen. [employer] Other XR hand LT min 3V* XR/XR hand LT min 3V* [employer] Other XR hand LT min 3V* IMPRESSION:No acute findings [employer] Other XR hand LT min 3V* Impression dictated by: Fuad Swain M.D.10/02/2021 6:01 PM [employer] Other XR hand LT min 3V* Dictation Location: [id number] [employer] Other XR hand LT min 3V* Transcribed By: PWS 10/02/21 1801 [employer] Other XR hand LT min 3V* Dictated By: Fuad Swain DO 10/02/21 1759 [employer] Other XR hand LT min 3V* Signed By: [employer] Other XR hand LT min 3V* 10/02/21 180 [facility] [employer] Other Automated basophil %on 11-25 Basophils/100 WBC (Bld) 1.0 % [facility] Automated basophil counton 0 11-25-2020 Basophils (Bld) [#/Vol] 0.1 10*3/uL 0.0-0.2 [facility] Automated blood lymphocyte c ount (number/volume)on 11-25-2020 Lymphocytes (Bld) [#/Vol] 2.2 10*3/uL 1.00-4.8 [facility] Automated blood lymphocyte c ount as percentage of total leukocyteson 11-25-2020 Lymphocytes/100 WBC (Bld) 29.2 % [facility] Automated blood monocyte cou nton 11-25-2020 Monocytes (Bld) [#/Vol] 0.4 10*3/uL 0.0-0.8 [facility] Automated blood platelet cou nt (count/volume)on 11-25-2020 Platelets (Bld) [#/Vol] 247 10*3/uL 150-450 [facility] Automated blood platelet ton n volume measurementon 11-25-2020 Platelet mean volume (Bld) [Entitic vol] 8.8 fL 6.3-10.7 [facility] Automated eosinophil %on Eosinophils/100 WBC (Bld) 1.1 % [facility] Automated eosinophil counton 11-25-2020 Eosinophils (Bld) [#/Vol] 0.1 10*3/uL 0.0-0.45 [facility] Automated erythrocyte distri bution width ratioon 11-25-2020 Erythrocyte distribution width (RBC) [Ratio] 13.3 % 11.9-15.3 [facility] Automated erythrocyte mean c orpuscular hemoglobin (mass per erythrocyte)on 11-25-2020 MCH (RBC) [Entitic mass] 29.2 pg 24.7-34.3 [facility] Automated erythrocyte mean c orpuscular hemoglobin concentration measurement (mass/volon 11-25-2020 MCHC (RBC) [Mass/Vol] 33.6 g/dL 32.0-35.0 [facility] Automated erythrocyte mean c orpuscular volumeon 11-25-2020 MCV (RBC) [Entitic vol] 87.0 fL 80-100 [facility] Automated monocyte %on 11-25 Monocytes/100 WBC (Bld) 5.4 % [facility] Automated neutrophil %on Neutrophils/100 WBC (Bld) 63.3 % [facility] Blood erythrocytes automated count (number/volume)on 11-25-2020 RBC (Bld) [#/Vol] 4.64 10*6/uL 3.60-5.00 [facility] Blood hemoglobin measurement (mass/volume)on 11-25-2020 Hemoglobin (Bld) [Mass/Vol] 13.6 g/dL 11.8-15.4 [facility] Blood leukocytes automated c ount (number/volume)on 11-25-2020 WBC (Bld) [#/Vol] 7.7 10*3/uL 3.8-11.6 [facility] Blood neutrophil count by au tomated method (number/volume)on 11-25-2020 Neutrophils (Bld) [#/Vol] 4.9 10*3/uL 1.8-7.7 [facility] COVID-19 Positive/Negativeon 11-25-2020 COVID-19 Positive/Negative Negative Negative [facility] Comment on above: Testing for SARS-CoV -2 by RT-PCRThis test was developed and its performance characteristics determined by [employer] ([employer]) and validated at the [facility]. This test has not been FDA cleared or approved. This test has been authorized by FDA under an Emergency Use Authorization (EUA). This test has been validated in accordance with the FDA's Guidance Document (Policy for Diagnostics Testing in Laboratories Certified to Perform High Complexity Testing under CLIA prior to Emergency Use Authorization for Coronavirus Disease-2019 during the Public Health Emergency) issued on January 31, 2020. This test is only authorized for the duration of time the declaration that circumstances exist justifying the authorization of the emergency use of in vitro diagnostic tests for detection of SARS-CoV-2 virus and/or diagnosis of COVID-19 infection under section 564(b)(1) of the Act, 21 U.S.C. 360bbb-3(b)(1), unless the authorization is terminated or revoked sooner. Estimated glomerular filtrat ion rate (GFR) non- Americanon 11-25-2020 GFR/1.73 sq M predicted among non-blacks MDRD (S/P/Bld) [Vol rate/Area] mL/min/{1.73_m2} [facility] Hematocrit [Volume Fraction] of Blood by Automated counton 11-25-2020 Hematocrit (Bld) [Volume fraction] 40.4 % 34.0-46.4 [facility] Otheron 11-25-2020 Coronavirus 2019 PCR Interp N/A [facility] GFR/1.73 sq M.predicted MDRD (S/P/Bld) [Vol rate/Area] mL/min/{1.73_m2} [facility] Comment on above: GFR estimated refere nce range: According to KDOQI guidelines, <60 ml/min/1.73m2 is sufficient to diagnose a patient with chronic kidney disease. Nucleated RBC/100 WBC (Bld) [Ratio] 0.0 % 0-0.5 [facility] Pharmacy Creatinine Clearance (Chem N/A [facility] Serum or plasma calcium eleni urement (mass/volume)on 11-25-2020 Calcium [Mass/Vol] 9.3 mg/dL 8.2-10.2 [facility] Serum or plasma chloride ton surement (moles/volume)on 11-25-2020 Chloride [Moles/Vol] 104 mmol/L 95-114 [facility] Serum or plasma creatinine m easurement with calculation of estimated glomerular filtron 11-25-2020 Creatinine [Mass/Vol] 0.76 mg/dL 0.44-1.03 [facility] Serum or plasma glucose eleni urement (mass/volume)on 11-25-2020 Glucose [Mass/Vol] 96 mg/dL 70-100 [facility] Comment on above: ADA recommended refe rence rangeRandom Glucose Reference Range is dependent on time and content of last meal. Glucose of more than 200 mg/dL in a nonstressed, ambulatory subject supports the diagnosis of Diabetes Mellitus. Serum or plasma potassium me asurement (moles/volume)on 11-25-2020 Potassium [Moles/Vol] 4.1 mmol/L 3.5-5.1 [facility] Serum or plasma sodium measu rement (moles/volume)on 11-25-2020 Sodium [Moles/Vol] 138 mmol/L 136-146 [facility] Serum or plasma total carbon dioxide measurement (moles/volume)on 11-25-2020 CO2 [Moles/Vol] 24.6 mmol/L 22.0-30.0 [facility] Serum or plasma urea nitroge n measurement (mass/volume)on 11-25-2020 Urea nitrogen [Mass/Vol] 6 mg/dL 07-23 [facility] COVID-19 SOFIAon 10-27-2020 COVID-19 MINERVA Negative Negative [facility] Comment on above: This is a duplicate test result based off of the [facility]erva SARS Antigen (LIZ) test performed within the Microbiology department. Otheron 10-27-2020 SARS Antigen (LFIA) [facility] Albumin [Mass/volume] in Ser um or Plasmaon 09-12-2020 Albumin [Mass/Vol] 3.9 g/dL 3.2-5.5 [facility] Cholesterol [Mass/volume] in Serum or Plasmaon 09-12-2020 Cholesterol [Mass/Vol] 175 mg/dL 140-200 [facility] Comment on above: Chol less than 200 m g/dl low riskChol 201-239 mg/dl borderline riskChol 240 mg/dl and greater high risk Cholesterol in LDL [Mass/vol ume] in Serum or Plasma by calculationon 09-12-2020 Cholesterol in LDL [Mass/Vol] 74 mg/dL 0-100 [facility] Comment on above: LDL ATP III CLASSIFI CATIONLDL less than 100 mg/dL OptimalLDL 100-129 mg/dL Near or above optimalLDL 130-159 mg/dL Borderline highLDL 160-189 mg/dL HighLDL greater than 189 mg/dL Very high Cholesterol in VLDL [Mass/vo lume] in Serum or Plasma by calculationon 09-12-2020 Cholesterol in VLDL [Mass/Vol] 44 mg/dL [facility] Estimated glomerular filtrat ion rate (GFR) non- Americanon 09-12-2020 GFR/1.73 sq M predicted among non-blacks MDRD (S/P/Bld) [Vol rate/Area] mL/min/{1.73_m2} [facility] Metabolic Panelon 09-12-2020 Glucose [Mass/Vol] 81 mg/dL 70-100 [facility] Otheron 09-12-2020 GFR/1.73 sq M.predicted MDRD (S/P/Bld) [Vol rate/Area] mL/min/{1.73_m2} [facility] Comment on above: GFR estimated refere nce range: According to KDOQI guidelines, <60 ml/min/1.73m2 is sufficient to diagnose a patient with chronic kidney disease. Pharmacy Creatinine Clearance (Chem N/A [facility] Protein [Mass/volume] in Ser um or Plasmaon 09-12-2020 Protein [Mass/Vol] 6.5 g/dL 6.1-7.9 [facility] Serum globulin measurement b y calculation (mass/volume)on 09-12-2020 Globulin (S) [Mass/Vol] 2.6 g/dL [facility] Serum or plasma alanine rizvi otransferase measurement without P-5'-P (enzymatic activion 09-12-2020 ALT No additional P-5'-P [Catalytic activity/Vol] 22 U/L 10-60 [facility] Serum or plasma albumin/glob ulin mass ratioon 09-12-2020 Albumin/Globulin [Mass ratio] 1.5 {ratio} [facility] Serum or plasma alkaline katherine sphatase measurement (enzymatic activity/volume)on 09-12-2020 ALP [Catalytic activity/Vol] 76 U/L 32-92 [facility] Serum or plasma aspartate am inotransferase measurement (enzymatic activity/volume)on 09-12-2020 AST [Catalytic activity/Vol] 18 U/L 10-42 [facility] Serum or plasma calcium eleni urement (mass/volume)on 09-12-2020 Calcium [Mass/Vol] 9.3 mg/dL 8.2-10.2 [facility] Serum or plasma chloride ton surement (moles/volume)on 09-12-2020 Chloride [Moles/Vol] 101 mmol/L 95-114 [facility] Serum or plasma creatinine m easurement with calculation of estimated glomerular filtron 09-12-2020 Creatinine [Mass/Vol] 0.67 mg/dL 0.44-1.03 [facility] Serum or plasma high density lipoprotein (HDL) cholesterol measurementon 09-12-2020 Cholesterol in HDL [Mass/Vol] 57 mg/dL 35-85 [facility] Comment on above: HDL CHOL ATP-III CLA SSIFICATION Cardiovascular RiskHDL > or equal to 60 mg/dL LOWHDL < 40 mg/dL HIGH Serum or plasma potassium me asurement (moles/volume)on 09-12-2020 Potassium [Moles/Vol] 3.9 mmol/L 3.5-5.1 [facility] Serum or plasma sodium measu rement (moles/volume)on 09-12-2020 Sodium [Moles/Vol] 136 mmol/L 136-146 [facility] Serum or plasma total biliru bin measurement (mass/volume)on 09-12-2020 Bilirubin [Mass/Vol] 0.5 mg/dL 0.3-1.2 [facility] Serum or plasma total carbon dioxide measurement (moles/volume)on 09-12-2020 CO2 [Moles/Vol] 23.4 mmol/L 22.0-30.0 [facility] Serum or plasma total choles terol/high density lipoprotein (HDL) cholesterol mass yany 09-12-2020 Cholesterol.total/Ch olesterol in HDL [Mass ratio] 3.1 {ratio} [facility] Serum or plasma urea nitroge n measurement (mass/volume)on 09-12-2020 Urea nitrogen [Mass/Vol] 7 mg/dL 9-23 [facility] Triglyceride [Mass/volume] i n Serum or Plasmaon 09-12-2020 Triglyceride [Mass/Vol] 220 mg/dL 35-149 [facility] Comment on above: TRIG ATP III CLASSIF ICATIONTRIG less than 150 mg/dL NormalTRIG 150-199 mg/dL Borderline highTRIG 200-500 mg/dL High TRIG greater than 500 mg/dL Very highStandard traceable to the Center for Disease Conrtrol and Prevention (CDC) test method. Vital Signs Date Time Vital Sign Value Performing Clinician Facility 10-17-2023 16:30-0500 Body height 162.56 cm Ml Chisholm Other [facility] Other 10-17-2023 16:30-0500 Body mass index (BMI) [Ratio] 34.67 kg/m2 Ml Chisholm Other [facility] Other 10-17-2023 16:30-0500 Body weight 91.63 kg Ml Chisholm Other [facility] Other 10-17-2023 16:30-0500 Diastolic blood pressure 71 mm[Hg] Ml Chisholm Other [facility] Other 10-17-2023 16:30-0500 Respiratory rate 18 /min Ml Chisholm Other [facility] Other 10-17-2023 16:30-0500 SaO2% (BldA) [Mass fraction] 96 % Ml Chisholm Other [facility] Other 10-17-2023 16:30-0500 Systolic blood pressure 112 mm[Hg] Ml Chisholm Other [facility] Other 08-10-2023 11:55-0400 Body height 162.56 cm Sera Lares Other [facility] Other 08-10-2023 11:55-0400 Body mass index (BMI) [Ratio] 37.24 kg/m2 Sera Lares Other [facility] Other 08-10-2023 11:55-0400 Body temperature 97.7 [degF] Sera Lares Other [facility] Other 08-10-2023 11:55-0400 Body weight 98.43 kg Sera Lares Other [facility] Other 08-10-2023 11:55-0400 Respiratory rate 18 /min Sera Lares Other [facility] Other 08-10-2023 11:55-0400 SaO2% (BldA) [Mass fraction] 98 % Sera Lares Other [facility] Other 09-08-2022 10:30-0500 Body height 162.56 cm Marleni Jordan Other [facility] Other 09-08-2022 10:30-0500 Body mass index (BMI) [Ratio] 34.93 kg/m2 Marleni Syler Other [facility] Other 09-08-2022 10:30-0500 Body weight 92.31 kg Marleniher Syler Other [facility] Other 09-08-2022 10:30-0500 Diastolic blood pressure 77 mm[Hg] Marleni Syler Other [facility] Other 09-08-2022 10:30-0500 Respiratory rate 18 /min Marleni Missler Other [facility] Other 09-08-2022 10:30-0500 SaO2% (BldA) [Mass fraction] 96 % Marleni Missler Other [facility] Other 09-08-2022 10:30-0500 Systolic blood pressure 117 mm[Hg] Marleni Missler Other [facility] Other 09-02-2022 15:00-0400 Body height 162.56 cm Ame Patelault Other [facility] Other 09-02-2022 15:00-0400 Body mass index (BMI) [Ratio] 34.5 kg/m2 Ame Nik Other [facility] Other 09-02-2022 15:00-0400 Body temperature 98.6 [degF] Ame Patelault Other [facility] Other 09-02-2022 15:00-0400 Body weight 91.17 kg Ame Patelault Other [facility] Other 09-02-2022 15:00-0400 Diastolic blood pressure 82 mm[Hg] Ame Nik Other [facility] Other 09-02-2022 15:00-0400 Respiratory rate 18 /min Ame iNk Other [facility] Other 09-02-2022 15:00-0400 SaO2% (BldA) [Mass fraction] 86 % Ame Nik Other [facility] Other 09-02-2022 15:00-0400 Systolic blood pressure 129 mm[Hg] Ame Ortiz Other [facility] Other 07-10-2022 12:10-0400 Body height 162.56 cm Ame Ortiz Other [facility] Other 07-10-2022 12:10-0400 Body mass index (BMI) [Ratio] 33.91 kg/m2 Ame Ortiz Other [facility] Other 07-10-2022 12:10-0400 Body temperature 98.6 [degF] Ame Ortiz Other [facility] Other 07-10-2022 12:10-0400 Body weight 89.63 kg Ame Ortiz Other [facility] Other 07-10-2022 12:10-0400 Diastolic blood pressure 81 mm[Hg] Ame Ortiz Other [facility] Other 07-10-2022 12:10-0400 Respiratory rate 18 /min Ame Ortiz Other [facility] Other 07-10-2022 12:10-0400 SaO2% (BldA) [Mass fraction] 98 % Ame Ortiz Other [facility] Other 07-10-2022 12:10-0400 Systolic blood pressure 132 mm[Hg] Ame Patelault Other [facility] Other 05-24-2022 17:00-0400 Body height 162.56 cm Ame Patelault Other [facility] Other 05-24-2022 17:00-0400 Body mass index (BMI) [Ratio] 34.67 kg/m2 Ame Ortiz Other [facility] Other 05-24-2022 17:00-0400 Body temperature 98 [degF] Ame Ortiz Other [facility] Other 05-24-2022 17:00-0400 Body weight 91.63 kg Ame Ortiz Other [facility] Other 05-24-2022 17:00-0400 Diastolic blood pressure 70 mm[Hg] Ame Ortiz Other [facility] Other 05-24-2022 17:00-0400 Respiratory rate 18 /min Ame Ortiz Other [facility] Other 05-24-2022 17:00-0400 SaO2% (BldA) [Mass fraction] 99 % Ame Ortiz Other [facility] Other 05-24-2022 17:00-0400 Systolic blood pressure 122 mm[Hg] Ame Ortiz Other [facility] Other 10-02-2021 18:20-0500 Body height 162.56 cm Sera Lares Other [facility] Other 10-02-2021 18:20-0500 Body mass index (BMI) [Ratio] 35.01 kg/m2 Sera Luda Other [facility] Other 10-02-2021 18:20-0500 Body temperature 98.2 [degF] Sera Lares Other [facility] Other 10-02-2021 18:20-0500 Body weight 92.53 kg Sera Lares Other [facility] Other 10-02-2021 18:20-0500 Diastolic blood pressure 81 mm[Hg] Sera Smallwoodmond Other [facility] Other 10-02-2021 18:20-0500 Respiratory rate 18 /min Sera Lares Other [facility] Other 10-02-2021 18:20-0500 SaO2% (BldA) [Mass fraction] 99 % Sera Lares Other [facility] Other 10-02-2021 18:20-0500 Systolic blood pressure 118 mm[Hg] Sera Lares Other [facility] Other 08-22-2021 15:15-0400 Body height 162.56 cm Christiana Jazmynenty Other [facility] Other 08-22-2021 15:15-0400 Body mass index (BMI) [Ratio] 34.33 kg/m2 Christiana Ginty Other [facility] Other 08-22-2021 15:15-0400 Body weight 90.72 kg Christiana Ginty Other [facility] Other Encounters Encounter Date Encounter Type Care Provider Facility Start: 10-17-2023 End: 10-17-2023 ambulatory Ml Chisholm Other [facility] Other Start: 10-17-2023 Office outpatient visit 15 minutes Ml Chisholm [facility] Start: 08-10-2023 End: 08-10-2023 ambulatory Sera Luda Other [facility] Other Start: 08-10-2023 Office outpatient visit 15 minutes Sera Luda [facility] Start: 04-16-2023 End: 04-17-2023 ambulatory Ame Nik Facility:[facility] Start: 02-02-2023 End: 02-03-2023 ambulatory AME NIK Facility: Start: 01-26-2023 ambulatory AME NIK Facil ity:[facility] Start: 01-17-2023 End: 01-18-2023 ambulatory AME ORTIZ [facility] Start: 01-17-2023 End: 01-17-2023 Lab Drop off AME ORTIZ [facility] Start: 12-16-2022 End: 12-16-2022 ambulatory Cong Cobian Facility:[facility] Start: 10-31-2022 End: 10-31-2022 ambulatory Alexis Lincoln Facility:[facility] Start: 10-31-2022 End: 10-31-2022 ambulatory PHYSICIAN NO [facility] Work Phone: Start: 10-31-2022 End: 10-31-2022 Patient encounter procedure PHYSICIAN NO [facility]-Self Pay Exercise Program Start: 10-23-2022 End: 10-23-2022 ambulatory FARHEEN CAMACHO . Facility:[facility] Start: 10-13-2022 End: 10-13-2022 ambulatory Lambert Gavin Facility:[facility] Start: 10-13-2022 End: 10-13-2022 Patient encounter procedure PHYSICIAN NO [facility]-MRI [facility] [place] Work Phone: Start: 10-13-2022 Registered Recurring PHYSICIAN AMBIKA GODDARD MOODY [facility]-Weight Management Work Phone: Start: 10-12-2022 End: 10-12-2022 ambulatory PHYSICIAN NO [facility] Work Phone: Start: 10-12-2022 End: 10-12-2022 Patient encounter procedure PHYSICIAN NO [facility] [place] Start: 10-11-2022 Registered Recurring PHYSICIAN AMBIKA [facility]Weight Management Start: 10-11-2022 End: 10-11-2022 ambulatory Marleni Jordan Other [facility] Other Start: 10-11-2022 Telephone encounter Marleni Jordan [facility] Start: 09-29-2022 End: 09-29-2022 ambulatory Abhi Finney Facility:[facility] Start: 09-15-2022 End: 09-16-[address] DOCTOR LANDEROS Facility: Start: 09-08-2022 End: 09-08-2022 ambulatory Marleni Jordan Other [facility] Other Start: 09-08-2022 Nutrition therapy Marleni [facility] Start: 09-02-2022 End: 09-02-2022 ambulatory Ame Ortiz Other [facility] Other Start: 09-02-2022 Office outpatient visit 15 minutes Ame Ortiz [facility] [place] Start: 08-02-2022 End: 08-02-2022 ambulatory Debra Celestin Other [facility] Other Start: 08-02-2022 Telephone encounter Debra Celestin [facility] Start: 07-14-2022 End: 07-14-2022 ambulatory Ame Ortiz Facility:[facility] Start: 07-10-2022 End: 07-10-2022 ambulatory Ame Ortiz Other [facility] Other Start: 07-10-2022 Office outpatient visit 15 minutes Ame Nik [facility] Start: 07-07-2022 End: 07-08-[address] CONOR BEAL Facility:[facility] Start: 06-26-2022 End: 06-26-2022 ambulatory Ame Patelault Other [facility] Other Start: 06-26-2022 Telephone encounter Amepatrick Garcial t [facility] Start: 05-24-2022 End: 05-24-2022 Departed Referred [employer] Ame Patelault Work Phone: [facility]Lab [facility] [place] Start: 05-24-2022 End: 05-24-2022 ambulatory Ame Nik [facility] Other Start: 05-24-2022 Office outpatient visit 15 minutes Ame Nik [facility] Start: 05-19-2022 End: 05-19-2022 ambulatory Ame Patelault Other [facility] Other Start: 05-19-2022 Telephone encounter Ame Brezaydal t [facility] Start: 05-11-2022 ambulatory BRITNI RUDY Facilit y:[facility] Start: 12-11-2021 End: 12-11-2021 ambulatory Ame Patelault Other [facility] Other Start: 12-11-2021 Telephone encounter Amepatrick Garcial t [facility] Start: 10-02-2021 End: 10-02-2021 ambulatory Sera Lares Other [facility] Other Start: 10-02-2021 Office outpatient visit 15 minutes Sera Luda [facility] Start: 08-22-2021 End: 08-22-2021 ambulatory Christiana Zuñigay Other [facility] Other Start: 08-22-2021 Office outpatient visit 15 minutes Christiana Martel [facility] Start: 11-25-2020 End: 11-25-2020 Patient encounter procedure Kit Reyes ([facility]) -Pre-Surgical Testing Start: 10-27-2020 End: 10-27-2020 Patient encounter procedure Kit Reyes ([facility]) -[place] COVID Testing Start: 09-12-2020 End: 09-12-2020 Departed Referred Kit Reyes ([facility]) -Corporate Health [address] Procedures Date Procedure Procedure Detail Performing Clinician Start: 10-13-2022 MRI of head PHYSICIAN NO FAMILY Start: 10-27-2020 SARS Antigen (LFIA) Nirmal sydney Reyes ([facility]) Cholecystectomy AME HI Dilation and curettage NAA ORTIZ Nasal sinus structur e (body structure) AME ORTIZ Tonsillectomy AME LEE Urine culture [employer] Sil Ortiz Work Phone: wisdom teeth AME GARCIA LT Immunizations Immunization Date Immunization Notes Care Provider Chaim kumar 11-22-2021 COVID-19 Vaccine Moderna - Documentation Purposes Only Ame Ortiz Other [facility] Other Payers Date Payer Category Payer Private Health Insurance 2022 Unknown 2022 Self-pay [id number] 1985 Unknown [id number] 2.16.8 [id number] 1986 Unknown [id number] 2.16.84 [id number] 1986 Unknown [id number] 2.16.84 [id number] 1986 Unknown [id number] 2.16.84 [id number] 1986 Unknown [id number] 2.16.84 [id number] 1986 Unknown [id number] 2.16.84 [id number] 1986 Unknown [id number] 2.16.84 [id number] 1986 Unknown [id number] 2.16.84 [id number] 1986 Unknown [id number] 2.16.8 [id number] 1986 Unknown [id number] 2.16.84 [id number] 1959 Private Health Insurance [facility] [id number] Private Health Insurance [facility] [id number] Unknown [id number] Unknown [id number] Unknown [id number] Social History Date Type Detail Facility Start: 06-28-2019 End: 11-25-2020 Tobacco smoking status PAIS Never smoked tobacco (finding) [facility] Start: 1985 Sex Assigned At Female [facility] Sex Assigned At [facility] Tobacco smoking status Never [facility] Medical Equipment Procedure Code Equipment Code Equipment Origin al Text Equipment Identifier Dates Test Strips as directed Start: 09-02-2022 Goals Date Patient Goal Desired Activity /State Clinical Notes 08-22-2021 to 10-17-2023 Note Date & Type Note Facility 10-17-2023 Evaluation note Encounter Date Diagnosis Assessment Notes Sep, 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 warm compresses to affected area. otc tylenol prn. immediate eval if warning s/s, such as inability to open/close mouth or pain associated with fevers. otherwise f/u c dentistry for further eval and mgmt, discussed possibility of mouth guard for possible teeth grinding while sleeping. questions and concerns were addressed [facility] Other 10-11-2023 Evaluation note* Encounter Date Diagnosis Assessment Notes Treatment Notes Treatment Clinical Notes Jul, Acute sinusitis, recurrence not specified, unspecified location (ICD-10 - J01.90) Drink plenty fluids, get plenty of rest. Take the amoxicillin with clavulanate and the prednisone as prescribed until gone. Continue to use your Flonase inhaler as prescribed. Take Tylenol or Motrin as needed for aches pains or fevers. You may continue to use the Mucinex and/or Sudafed for nasal congestion. Follow-up with your family physician if no improvement in 2 to 3 days [facility] Other 03-20-2023 Evaluation + Plan note Diagnostic Tests Pending * FSH and LH 01/17/23 [facility]02-16-2023 NotePatient Education Materials Follows: Otitis Media, Adult Otitis media is a condition in which the middle ear is red and swollen (inflamed) and full of fluid. The middle ear is the part of the ear that contains bones for hearing as well as air that helps send sounds to the brain. The condition usually goes away on its own. What are the causes? This condition is caused by a blockage in the eustachian tube. This tube connects the middle ear tothe back of the nose. It normally allows air into the middle ear. The blockage is caused by fluid or swelling. Problems that can cause blockage include: ? A cold or infection that affects the nose, mouth, or throat. ? Allergies. ? An irritant, such as tobacco smoke. ? Adenoids that have become large. The adenoids are soft tissue located in the back of the throat, behind the nose and the roof of the mouth. ? Growth or swelling in the upper part of the throat, just behind the nose (nasopharynx). ? Damage to the ear caused by a change in pressure. This is called barotrauma. What increases the risk? You are more likely to develop this condition if you: ? Smoke or are exposed to tobacco smoke. ? Have an opening in the roof of your mouth (cleft palate). ? Have acid reflux. ? Have problems in your body's defense system (immune system). What are the signs or symptoms? Symptoms of this condition include: ? Ear pain. ? Fever. ? Problems with hearing. ? Being tired. ? Fluid leaking from the ear. ? Ringing in the ear. How is this treated? This condition can go away on its own within 3?5 days. But if the condition is caused by germs (bacteria) and does not go away on its own, or if it keeps coming back, your doctor may: ? Give you antibiotic medicines. ? Give you medicines for pain. Follow these instructions at home: ? Take pyeu-vmi-gqcciow and prescription medicines only as told by your doctor. ? If you were prescribed an antibiotic medicine, take it as told by your doctor. Do not stop takingit even if you start to feel better. ? Keep all follow-up visits. Contact a doctor if: ? You have bleeding from your nose. ? There is a lump on your neck. ? You are not feeling better in 5 days. ? You feel worse instead of better. Get help right away if: ? You have pain that is not helped with medicine. ? You have swelling, redness, or pain around your ear. ? You get a stiff neck. ? You cannot move part of your face (paralysis). ? You notice that the bone behind your ear hurts when you touch it. ? You get a very bad headache. Summary ? Otitis media means that the middle ear is red, swollen, and full of fluid. ? This condition usually goes away on its own. ? If the problem does not go away, treatment may be needed. You may be given medicines to treat theinfection or to treat your pain. ? If you were prescribed an antibiotic medicine, take it as told by your doctor. Do not stop takingit even if you start to feel better. ? Keep all follow-up visits. This information is not intended to replace advice given to you by your health care provider. Make sure you discuss any questions you have with your health care provider. Document Revised: 01/25/2022 Document Reviewed: 01/25/2022 [employer] Patient Education ? 2021 RUN.[facility] [id number] Note Patient Education Materials Follows:[facility] [id number] Evaluation note * Encounter Date Diagnosis Assessment Notes Treatment Notes Treatment Clinical Notes Aug, Obesity (ICD-10 - E66.9) Findings consistent with obesity. Patient understands that this increases risk of multiple comorbidities associated with weight gain especially if there is a genetic component. Discussed importance of adopting a healthier lifestyle including better diet choices as well as incorporating some type of activity and exercise In order to decrease or eliminate risk of impending diseases associated with excessive weight.. Treat with weight loss Aug, PCOS (polycystic ovarian syndrome) (ICD-10 - E28.2) Patient has history of PCOS which does increase her risk for metabolic syndrome .Treat with long-term healthy lifestyle changes, behavioral changes, healthy nutritional changes, increase activity and exercise and achieve long-term weight loss goals patient understands that metabolic syndrome increases the risk of diabetes and heart disease. Patient has significant apple shape abdominal obesity Aug, Chronic fatigue (ICD-10 - R53.82) Patient's fatigue is likely multifactorial. encouraged good sleep hygiene by going to bed at approximately the same time each night and similar waking hours each day, not eating too close to bedtime, avoid excessive fluids and eating shortly before bed, turning off blue light on phone/computers, silencing notifications, etc. Aug, Vitamin D deficiency (ICD-10 - E55.9) Patient has a history of vitamin D deficiency. We will check levels and address as needed. This can be a factor in both mood and energy regulation. Aug, Migraine aura without headache (ICD-10 - G43.109) Patient has history of migraines. We could consider adding medication such as Topamax if needed in addition to initial weight loss medications. Aug, Bipolar disorder (ICD-10 - F31.9) PHQ-9 is positive for minimal depression 3 entering the program. Patient states mood is stable overall today and denies any significant mood swings or depressive thoughts. We would use extreme caution or avoid medications for weight loss including Qsymia, phentermine due to possibility of worsening depression. Discussed this with patient when evaluating for appropriate medication. Aug, GERD (gastroesophageal reflux disease) (ICD-10 - K21.9) Patient states that her GERD symptoms are unrelated to food and will often come on at random. Patient does suffer from GERD likely related to increased weight especially central obesity. Treat with weight loss and dietary changes. With weight loss patient could achieve complete relief from GERD symptoms due to increased intraabdominal pressure with the goal of being weaned off of medication. Patient to work closely with dietitian to help make healthy dietary choices and avoid reflux inducing foods. Briefly discussed these including avoiding citrus, high fat dairy, high fat meats and beverages including alcohol and coffee. Aug, Depression (ICD-10 - F32.9) Aug, IBS (irritable bowel syndrome) (ICD-10 - K58.9) Patient states she often has diarrhea due to her irritable bowel syndrome. We discussed when adding medication such as a GLP-1 she could be experiencing constipation. Patient notes to inform provider of any adverse effects that are intolerable. Aug, Lactose intolerance (ICD-10 - E73.9) Aug, Anxiety (ICD-10 - F41.9) Due to patient's underlying anxiety would likely avoid or use extreme caution with any products containing phentermine. She has been on such a medication before and did have stomach upset [facility] Other 11-03-2022 Evaluation note* Encounter Date Diagnosis Assessment Notes Treatment Notes Treatment Clinical Notes Aug, Dizziness (ICD-10 - R42) Aug, History of reactive hypoglycemia (ICD-10 - Z86.39) Start with keeping journal of symptoms. Take blood sugars when you experience symptoms. [facility] Other 09-10-2022 Evaluation note* Encounter Date Diagnosis Assessment Notes Treatment Notes Treatment Clinical Notes Jul, Intractable migraine without aura and without status migrainosus (ICD-10 - G43.019) Take medication as directed. Stay away from known triggers. Follow up with primary care provider or neurology if symptoms persist. Phenergan and Toradol Im given in office. Explained medication will cause drowsiness. [facility] Other 08-27-2022 Evaluation note* Encounter Date Diagnosis Assessment Notes Treatment Notes Treatment Clinical Notes May, Migraine aura without headache (ICD-10 - G43.109) [facility] [facility] Other 07-25-2022 Evaluation note* Encounter Date Diagnosis Assessment Notes Treatment Notes Treatment Clinical Notes Apr, Dysuria (ICD-10 - R30.0) Apr, Right acute otitis media (ICD-10 - H66.91) Ear infections are often a secondary infection caused from an URI, the flu or allergies. Take medication as directed. Complete all doses, even if you feel better. Tylenol or ibuprofen can help with pain. Warm pack to area for comfort helps as well. Follow up with primary care provider if no improvement of symptoms. Apr, Acute cystitis with hematuria (ICD-10 - N30.01) Ceftin will treat UTI Take medication as directed. Urine analysis shows abnormalities today in office. Urine culture will be sent to lab. Will call with results if resistance present to antibiotic. Increase fluid intake. Follow hygiene guidelines such as wiping front to back, avoid using perfumed lotions, bath beads, bubble bath. Prevention tips inlcude urinating after sexual intercourse. Apr, Acute eczema (ICD-10 - L30.9) Ezcema is a common skin condition. Using thick creams such as Eucerin cream can help prevent breakouts. When breaks occur of the skin there is increase risks of infections, both bacterial and fungal. Use medication as directed Apr, Migraine aura without headache (ICD-10 - G43.109) Continue medication as needed [employer] Other 12-03-2021 Evaluation note* Encounter Date Diagnosis Assessment Notes Treatment Notes Treatment Clinical Notes Sep, Finger pain, left (ICD-10 - M79.645) Sep, Sprain of interphalangeal joint of left index finger, initial encounter (ICD-10 - S63.631A) Keep your fingers amarjit taped for the next 5 to 7 days for comfort and compression. Take ibuprofen 600 mg up to 3 times a day with food as needed for pain and swelling. Ice and elevate your finger is much as possible. Follow-up with your family physician if no improvement in 5 to 7 days [employer] Other 10-23-2021 Evaluation note* Encounter Date Diagnosis Assessment Notes Treatment Notes Treatment Clinical Notes Jul, Contact with and (suspected) exposure to other viral communicable diseases (ICD-10 - Z20.828) Jul, COVID-19 (ICD-10 - U07.1) Rapid COVID test performed in office today. Advised patient that test was positive. Instructed patient to isolate per CDC guidelines for 10 days from symptom onset. May return to work/activities outside home after isolation period as long as symptoms are improving and has been afebrile for 24 hours without use of antipyretic. Advised patient that health dept. will be in contact as results are reported to them. Advised patient that treatment of COVID is with viral supportive care. Will send in rx of Medrol. Advised patient to take medication as directed, finish entire course, take with food and plenty of water, reviewed side effects. May use Tessalon Perles and Albuterol Inhaler as needed. Tylenol as needed for body aches/fever. Increase fluids and rest. Encouraged use of cool mist humidifier. Follow-up with PCP to advise of positive result and further management need. Immediate eval for SOB, difficulty, chest pain, fevers that do not break with antipyretic or any other concerning symptoms as reviewed on patient education handout. Patient verbalizes understanding and is agreeable to treatment plan. Patient left in stable condition Jul, Other Additional time spent conducting pre-visit phone call, screening for symptoms, instructions on social distancing, application and removal of PPE, and cleaning of examination room, equipment and supplies was preformed. Patient education given for testing methodology and results. Patient care instructions given in writting by [facility] At Home document [employer] Other Evaluation noteNo InformationNort [employer] Other Evaluation noteNo assessment information available [facility] Work Phone: History general Narrative - Reported* Type Description Date Medical History bipolar depression Medical History hx stomach ulcers Medical History migraine headaches Surgical History T&A 1997 Surgical History [place] Teeth 2004 Surgical History Keloid Scar from ear 2005 Surgical History Lap Saima 2007 Surgical History D&C 2011 Surgical History Mass removed from left breast 2 014 Surgical History sinus surgery Surgical History colonoscopy 04/18 Surgical History laproscopy and uterine ablation 07/19 Surgical History left side achiles tendon cut wi th implant Surgical History two sinus surgerys Surgical History hysterectomy Hospitalization History See Above [employer] Other Hisstsq general Narrative - Reported* Type Description Date Medical History bipolar depression Medical History hx stomach ulcers Medical History migraine headaches Medical History IBS Medical History chronic depression Medical History anxiety Medical History Gestational diabetes - yes Medical History PCOS Medical History Esophageal reflux Medical History fatigue Medical History lactose intolerance Medical History obesity Surgical History T&A 1998 Surgical History [place] Teeth 2005 Surgical History Keloid Scar from ear 2006 Surgical History Lap Saima 2008 Surgical History D&C 2011 Surgical History Mass removed from left breast 2 014 Surgical History sinus surgery x 2 Surgical History colonoscopy 04/18 Surgical History laproscopy and uterine ablation 07/19 Surgical History left side achiles tendon cut wi th implant Surgical History two sinus surgerys Surgical History hysterectomy Surgical History Left flat foot reconstruction 2 021 Hospitalization History See Above [employer] Other [facility] general Narrative - Reported* Type Description Date Medical History bipolar depression Medical History hx stomach ulcers Medical History migraine headaches Medical History IBS Medical History chronic depression Medical History anxiety Medical History Gestational diabetes - yes Medical History PCOS Medical History Esophageal reflux Medical History fatigue Medical History lactose intolerance Medical History obesity Surgical History T&A 1998 Surgical History [place] Teeth 2005 Surgical History Keloid Scar from ear 2006 Surgical History Lap Saima 2008 Surgical History D&C 2011 Surgical History Mass removed from left breast 2 014 Surgical History sinus surgery x 2 Surgical History colonoscopy 04/18 Surgical History laproscopy and uterine ablation 07/19 Surgical History left side achiles tendon cut wi th implant Surgical History hysterectomy Surgical History Left flat foot reconstruction 2 021 Hospitalization History See Above [employer] Other Hospital course Narrative No data available for this section [facility] No data available for this section [facility] No data available for this section [facility] Advance Directives Advance Directive Response Recorded Date/ Time Advance Directives No April 08 0 6:58am Advance Directive Response Recorded Date/ Time Advance Directives No April 08 0 7:58am Chief Complaint and Reason for Visit Chief [facility] Dysmenorrhea,Dyspareunia,Abnormal Uterine Bleeding Chief Complaint Dysuria R30.0 Chief Complaint Obesity R27.0 Chief Complaint Obesity R27.0 exercise Assessments No Assessments Information Available Family History Relationship Condition Age at Onset Recorded Date/T nahid Not Specified Malignant neoplasm of lung Unknown Myocardial infarction Unknown father Chronic obstructive pulmonary disease Unk nown Hypertension Unknown Depression Unknown sister Hypothyroidism Unknown Summary Purpose Additional Source Comments REASON FOR VISIT (unrecogniz ed section and content) #18 SILVER VAN, COUGH, BLOOD IN MUCUS, CHILLSINJURY LEFT INDEX FINGERNo InformationNo InformationFOLLOW UP MEDICATIONclinicalDARK BARBOUR C, N/V, H/AWMN ReferralISSUES OF DIZZINESS CHECK UPInitial [facility] exercise with [place] E[place] INFECTIONEAR INFECTION LEFT EAR Care Teams (unrecognized sec tion and content) Team Status: Inactive Member Role Status Dates KRISTIN Mercedes Attending Provider Active PHYSICIAN NO FAMILY Primary Care Provider Active Team Status: Active Member Role Status Dates PHYSICIAN NO FAMILY Primary Care Provider Active Team Status: Inactive Member Role Status Dates Lambert Gavin DO Attending Provider Active KRISTIN Mercedes Primary Care Provider Active Team Status: Active Member Role Status Dates PHYSICIAN NO FAMILY Primary Care Provider Active KRISTIN Mercedes Attending Provider Active Team Status: Active Member Role Status Dates KRISTIN Mercedes Primary Care Provider Active Team Status: Inactive Member Role Status Dates KRISTIN Mercedes Primary Care Provider Active Alexis Lincoln MD Attending Provider Active Team Status: Inactive Member Role Status Dates KRISTIN Mercedes Primary Care Provider Active Lambert Gavin DO Attending Provider Active Goals (unrecognized section and content) Goals may be documented in a n alternate section INFORMATION SOURCE (unrecogn ized section and content) DATE CREATED AUTHOR 12/17/2022 [facility] DATE CREATED AUTHOR AUTHOR'S ORGANIZ ATION 01/22/2023 [facility] DATE CREATED AUTHOR AUTHOR'S ORGANIZ ATION 02/12/2023 [facility] DATE CREATED AUTHOR AUTHOR'S ORGANIZ ATION 04/20/2023 [facility] FOR RECORDS PERTAINING TO PATIENTS WHO ARE OR HAVE BEEN ENROLLED IN A CHEMICAL DEPENDENCY/SUBSTANCEABUSE PROGRAM, SOME INFORMATION MAY BE OMITTED. This clinical summary was aggregated from multiple sources. Caution should be exercised in using it in the provision of clinical care. This summary normalizes information from multiple sources, and as a consequence, information in this document may materially change the coding, format and clinical context of patient data. In addition, data may be omitted in some cases. CLINICAL DECISIONS SHOULD BE BASED ON THE PRIMARY CLINICAL RECORDS. [facility]. provides no warranty or guarantee of the accuracy or completeness of information in this document.
[2023-11-01 14:08] LABS: Age Gdln ACOG Testing Note (.); HPV Aptima Negative (Negative); IGP, Aptima HPV, rfx 16/18,45 Note (.)
== END 2023-10-26 20:20 | disposition home or self-care (01) ==
LOC: LAB 20:19
PROVIDERS: PCP Nurse Practitioner Family; Visit Provider Obstetrics & Gynecology
DX: Z01.419 Encounter for gynecological examination (general) (routine) without abnormal findings (principal)
CPT/HCPCS: 87624; G0145

== ENCOUNTER 2023-11-28 09:00 | Outpatient (OUT) | payer OTHER, SELFPAY ==
--- OUTSIDE RECORDS SUMMARY | 2023-11-28 09:06 | XMS_ITS | CCD ---
Author Name Unknown Address [facility] [place] [address] Organization [facility] Care Team Providers Care Automated Weaver Name Role Phone Eric ([facility])Kit Attending Provider Dewayne James Attending Provider Ame Ortiz Primary Care Provider Costa Armando Attending Provider [phone] Christiana Martel Unavailable Sera Lares Unavailable Ame Ortiz Unavailable KRISTIN Ortiz Attending Provider NO FAMILY, PHYSICIAN Primary Care Provider Unava ilable Debra Celestin Unavailable Marleni Jordan Unavailable NO FAMILY, PHYSICIAN Primary Care Provider Unava ilable KRISTIN Ortiz Attending Provider DO Lambert Gavin Attending Provider KRISTIN Ortiz Primary Care Provider NO FAMILY, PHYSICIAN Primary Care Provider Unava ilable KRISTIN Ortiz Attending Provider [phone] KRISTIN Ortiz Primary Care Provider DO Lambert Gavin Attending Provider MD Alexis Lincoln Attending Provider Ame Ortiz Attending Unavailable Ame Ortiz Admitting Unavailable Alexis Lincoln Admitting Unavailable Alexis Lincoln Attending Unavailable Nik, Ame Primary Care Unavailable Lambert Gavin Admitting Unavailguy e Lambert Gavin Attending Unavailabl e Nik, Ame Primary Care Unavailable CONOR BEAL Primary Care Physician AME ORTIZ Attending Unavailable NIK, AME Admitting Unavailable JANICE Mantilla, FARHEEN Attending Unavailable JANICE Mantilla, FARHEEN Admitting Unavailable Donald Cannon Consulting Unavailable NIK, AME Primary Care Unavailable JANICE Mantilla, FARHEEN Consulting Unavailable MISC, DR GUERRERO Admitting Unavailable MISC, DR GUERRERO Consulting Unavailable NIK, AME Primary Care Unavailable MISC, DR GUERRERO Attending Unavailable NIK, AME Admitting Unavailable NIK, AME Primary Care Unavailable NIK, AME Consulting Unavailable NIK, AME Attending Unavailable NADERER, DR CONOR Medina Primary Care Unavailable HIGHLANDER, FABIENNE Mahajan Attending Unavailable JORGE L, DR RAFAEL Mattson Consulting Unavailable HIGHLFABIENNE BOUCHER Admitting Unavailable HIGHLANDER, FABIENNE Mahajan Consulting Unavailable NIK, AME Primary Care Unavailable HIGHLANDER, FABIENNE Mahajan Admitting Unavailable HIGHLANDER, FABIENNE Mahajan Attending Unavailable JORGE L, DR RAFAEL Mattson Consulting Unavailable HIGHLANDER, FABIENNE Mahajan Consulting Unavailable BRITNI GRANT Admitting Unavailable NADERER, DR CONOR Medina Primary Care Unavailable BRITNI GRANT Attending Unavailable NIK, AME Primary Care Unavailable HIGHLSANDER, FABIENNE Mahajan Admitting Unavailable HIGHLSANDER, FABIENNE Mahajan Attending Unavailable Cong Cobian Admitting Unavailable Nik, Ame Primary Care Unavailable Cong Cobian Attending Unavailable Nik, Ame Primary Care Unavailable Nik, Ame Primary Care Unavailable Abhi Finney Attending Unavailable Abhi Finney Admitting Unavailable Nik, Ame Primary Care Unavailable Ml Chisholm Unavailable LUIS EDUARDO SERRATO Attending Unavailable CHELSEA COE Attending Unavail le Unavailable Unavailable Unavailable Allergies Allergy Classification Reported Allergen(s) Allergy Type Date of Onset Reaction(s) Facility (6 sources) Adhesive Tape; 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: [Adhesive tape] Allergy to substance 4 Rash/itching [facility] (4 sources) paper tape Allergy to substance 1 Rash/itching [facility] (16 sources) Codeine; 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: [codeine] Drug Allergy Unknown (qualifier value) [facility] (13 sources) Povidone-Iodine ; 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: [povidone iodine topical] Drug Allergy Unknown (qualifier value) [facility] (13 sources) bandaids Propensity to adverse reactions rash [facility] [employer] Other (13 sources) Polyester Propensity to adverse reactions rash [facility] [employer] Other (5 sources) Povidone-Iodine ; 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: [Betadine] Drug Allergy 2 itchy rash [facility] Repository (2 sources) Adhesive bandage; 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: [Adhesive Bandage] Drug allergy Unknown (qualifier value) [facility] (2 sources) Codeine Drug Allergy 2 [facility] Repository (1 source) Adhesive Tape; 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: [Tape] Propensity to adverse reactions to drug (disorder) [facility] Repository Medications Current Medications Medication Drug Class(es) [...] 25, 2020 12:00am take 1 capsule by az ut every twenty-four hours Vraylar 4.5 MG 1 [...] 1 tablet Orally Once a day Active Axitxcvjaf-Alpkdnw-Qvssxuhku in (Folinic-Plus) 4-50-2 mg tablet (4 sources) Start: 11-25-2020 take 1 tablet by mouth once daily Idbpvmbpoz-Enemxbe-Dfzthbksehe (Folinic-Plus) 4-50-2 mg tablet Active 1 TAB PO Daily November 25, 2020 10:32am Start: 11-25-2020 take 1 tablet by jerri th once daily Lzhfatnudu-Dtlrcfu-Hvasrqqtsct (Folinic- Plus) 4-50-2 mg tablet Active 1 TAB PO Daily November 25, 2020 12:00am Start: 11-25-2020 [facility] Htfzfzxgnk-Qljohbd-Jkmbpvfdtyw (Folinic- Plus) 4-50-2 mg tablet Active 1 [...] 30 gram, Refill(s) 0, [facility]. Start Date: 06/28/19 Status: Ordered Hailey-3 (1 source) Start: 04-16-2019 Hailey-3 Oral, Daily, Refill(s) 0, Prophylaxis Start Date: 04/16/19 Status: Ordered Hailey-3 Fatty Acids (Fish Oil Concentrate) 1,000 mg Capsule (4 sources) Start: 11-25-2020 take 1 capsule by mouth once daily Hailey-3 Fatty Acids (Fish Oil Concentrate) 1,000 mg Capsule Active 1000 MG PO Daily November 25, 2020 10:35am Start: 11-25-2020 take 1 capsule by [facility] once daily Hailey-3 Fatty Acids (Fish Oil Concentrate) 1,000 mg Capsule Active 1000 MG PO Daily November 25, 2020 12:00am Start: 11-25-2020 take 1 capsule by [facility] once daily Hailey-3 Fatty Acids (Fish Oil Concentrate) 1,000 mg Capsule Active 1000 MG PO Daily November 25, 2020 1:00am ondansetron 4 mg oral tablet (3 sources) Serotonin-3 Receptor Antagonist Start: 07-10-2022 take 1 tablet by mouth every eight hours as needed Zofran ODT 4 MG 1 tablet on the tongue and allow to dissolve Orally every 8 hrs as needed for 4 days 10 Sep, 2022 Active Probiotic (13 sources) Probiotic Active Probiotic [...] 2020 12:00am take 2 tablets by mo uth every twenty-four hours Sertraline HCl 100 MG [...] Drug Class(es) Dates Sig (Normalized) Sig (Original) [id number] 200 actuat albuterol 0.09 mg/actuat metered dose [...] Resolved: 08-22-2021 Episodic Other aftercare (1 source) emt intermediate (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; 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: [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] Onset: 10-26-2022 Episodic Other aftercare (1 source) Other emt intermediate (current) drug therapy; 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: [OTH 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 00OTGTIFF [facility] CT ANKLE RT WO CONon 023 CT [...] technique. FINDINGS: BONES: Joint space narrowing with qeeu-oc-fqao articulation involving the medial aspect of the talocalcaneal joint. SOFT TISSUES: Negative. No visible soft tissue swelling. EFFUSION: None visible. OTHER: Negative. IMPRESSION: 1. Pes planus. 2. Syyi-dr-riwa articulation between the articular surfaces of the medial talocalcaneal joint. 3. Uniform, normal spacing of the tibiotalar joint. Electronically authenticated by: RAFAEL COATS Date: 2023-02-02 09:25 Normal [facility] Coding Summary.on 01-21-2023 Coding Summary. CD:[id number] W w+PGhlYWQ+CE0VSMCvB04 jeCJszH3hO4PXOIsHPuzk CCJYEUzUEdLffmReXV0sv XNjZXJu IC8+CM1sFBRvKmmduRUyu 8M9oVH4A11ejj4nEAotbD R4IKZgEsQppdhcy6krsAn 6IDcuNmluOyBt YUSreL79NGE3zF30Yu53h UHmzMDwl2yplZf0RjXpAM NnJMR2gDjyEOvlh0LxCUJ mZ48hlZPql6L3 DIUhxDeczPKzHdLihFK0c E2yAEcqcpbkm5fvkeigPt j8zh56gJVul7X9dQS2H4T jsqH1MFHxaVPs JqivxYCDqH7ukrapt8goc dwjXbHrDQSzNNd7CKa7PZ WsqOjcRrSrUM43VUN0RHX rndPwF3LsWMSq uQulPeS4f6M5Oo7RE9WML lwhN4VAUMRXOFmnpCC+PC 71op82T4RkFlciPtz9ZUO mIKQ7eBA7yP6e GCHyQRwhr7E7cJL9D6Tlt kVnfn4zo2ukFZOmRYqlY7 7axKAye5T9BRXkaDD4JCL yiMsvYsXceR52 Oyc+LQPbqFhyy8WoNiczy 6ays0gnhIw9YaoyNGSmzl KnoVetTHE2f5HrRp0iRQO rtOG1kIL1gV1n GcTuHhI4WBvyB314TqSzt FKhVgefV54gM6PpuBC+PH BdItq5CZCctVpmBS4xV2D hZGRpbmctbGVm jXfbSU5zZPXmmpslOXAnk N9zWIStZ4d2EyWcIzQ9BJ noB3AfOUNrkbrgQi66fA6 nRuXbQvS5EKzt T6UldyG6GUSqzJSePOhqY NS5V38sy9U9IWThVEHqFF F6iTC1tD8ddNahpebshWX mdDsgdmVydGlj DWxoBThiX681OBDhfHpqB kNvZGluZyBEYXRlOiAgMD MvMjQvMjAyMzwvdGQ+PHR iXTX5kYtsVZZd oMLuQLdgMo7byYlsgVixB P8nQNVwrafvCHDiqF9pJD SjxKGuaHscVP5dBAWjhnp ma367QcRuBIM1 JGMzxCErZ4HofS2oUzZvA QMyYIDkB3IrgRVdKRffT4 79QAvdUtF1HVXynxFxD4V sLWFsaWduOiB0 d2L0Hy9Ww9PnqroqK5Kyj EGzAiFgFggeGEq1J1AuRr wvdHI+DR05NRZuNC97DYy 1NDB6aRcrPZjc WVMiD1RpqZ6hHqKtQKXkS GRkOyc+PHRhYmxlIHdpZH RoPScxMDAlJyBzdHlsZT0 lZi1dFVMqMZPs yBzveMGnSvWcu1rsUBKuN KtiKE6jwVluE0AxoAT6GB Eyn6u4Om60W99zF5NirNF +VKDryFV9sZL3 hM9nQcFxYiQ6ORmxQ483C tIvmXXsTtyln0nqf4gtbE o0TtL5MXMogzWpuEtlSGT 2d9HfWg93V45d IHdpZHRoPSIxNSUiIHZhb Oqqoe7sjX7lAd1+PGNvbC Y2dUZ8eZ9yQpGgFgM6IPj rZ232NeWogCUe Endan5pdf3zbhXo9RtJhC EVsffGovAnwYGA3o9DzDf 52T5MnvPioq6SmOal9gr5 9iQQyg0C1iRY9 T2QhUUAvqermjPXxbAwyX D8jFIMwwibmXJRvgD1nJL SoR9h0UwDgRhR0ZYalD7Q yjqZ8OCIckAYh GAXljFNHtJ5nhtmzb3nxe tvdDsMoZBWuZYo8NYj5VB XhpMcwGiHkLVM9LuN6SQW 4cCLteH0zmTlw bxobzP4dXsm+OLV2vPDwx FYBKN7cCffhmWZ+PHRkIH W6aAerRKblCRRjhC9vDBP bQ9l2MyByJoH7 EVhkI9PxzxU3CXNsdEYjS ICvnYPOxY2lebfrv6yxnh xlNoAbIFUeNRx1HTe6VQT saWduOiBsZWZ0 VkU4KAC4tUPqpY9yhSnuz zrspD2xVxz+QmlydGggRG R7IYn7H2VhMot9QJTbpKq rTB4vxCXnLEkd Qw1bmAtspSntBO5iUYBgf fzzf743WtLev9laZRSuoM KyDCsrNWW9T57dr7J3UWG sPWIjYJL0iXS4 aX9mgQbdvguqkJIxdUwlc uZtbXdiMIgfGMhvV587JS AmgFppAkLrZSl7U9SgBuc 0NBPfnYnaRJ2t gGMmZXcwVo6oyIrkbXfyE G9iRDJmhvnrr495PtDeu1 hyUZPpiACqPWgaZCV9Q50 kg9I8YSCcPYQe WPA3dQJ9zX0eqQmoczdub GVmdDsgdmVydGljYWwtYW roF824XREgnWnyKaIssYl 2P2IiCfl9EPLq xYydVU3mbAZoRYawCj2xn ZvmbIkzHK1rQKRxwsdtf4 22CpJgs5vpAJTueJHbJBq xZPV3I94hw2Z9 NCNkHSNiNDV4sVU1yJ2db GlnbjogbGVmdDsgdmVydG bdVMgdRUauR556PQXmuNq nPlBhdGllbnQg TNuxVYz8I5XvPhprjQM+P N48HWUnGF28pCMicIGhy5 umaPd7GtRcHZJqDPW1kKl zEYbya0ZdBYCt N11azBTun7X8VIWbuMeic AApNoPanUK6qR3bBPqckw gel0sihopgJgljb9esqu6 9zG42T79cFAki ZHRoPSIzMCUiIHZhbGlnb g9vuZ0cRz3+KGCjlOH9dM H7hN3jYBRdQrS9MAamC34 9InRvcCIvPjxj c5xns0agwUh0YxN4KNRdd tEowGhrRPV9t3XvSu20H7 9sIHdpZHRoPSIyMCUiIHZ pkVfhka2prP0b Ii8+ROXjuET4xDN3fX8fK gSbUmB0SOlcB944AcAfvZ HhAnjbS15sE2FpqVO+PHR oBek1CBVjzMes QD5fcWGcIJvpYn5aDIV3C dUiYvNvEQbxD7ZdAERdcc vhhcvdzDR2QSDsNDOgaN5 2Pv2zkWzsNKFu uZDQcM2ynkimg3wxjojiA wCtSWPhTSd3CFp9FUGubD quIlUkKEX9HyA5PJZ7qVO ksQ7hoLcsnrhh tU6qI3PxWMOxglpeDu99m R7iByDuWoM2IBgiHnw+GUERRERO 1SKfagDYtETBMLCR0GMP4 8GH50yFJjq2F1 kMG5A1LoUDNhdeipnlahc JE4AUAcHTGlxL21lTHkJZ reCr7pf6L4m579YQEoTLD ddT81Hh1vhEbq OPKwkQUPgU8kbtoxy0rld triCjVoJBNhRIx9OZc2PL KvhBafGsDoCNR2QrC2KXL 8uJDqfQ8hxQxv hkjwtA3nIhc+MDYvMDUvM Jb5AqgbvPJ+RSSjGMH1kJ vqKFeuKGYirS8dFNPpQ9f 8FaUvVqW9UKws F1JiNWZsixjnZi42pP9kR mNmKfG2FTdaC1CsklQ5CQ RysDEzUTmsGFR8Z03dj6Z 7KOAwEMIiNDZ0 eQD2pV5jwTlwerszgBBln DsgdmVydGljYWwtYWxpZ2 91UVAhdVowQoQ0PKynMMC iYV60ZY02nIHr q5I4eUN2L6EzBZAzpovcg proyQT6YWDnQNRbpY49zQ WmEZooNw9yt3X1t303WYG mYKIlpP26Lz6x hXgvFREhyYCCmF4leeybg 4rfctqlYkAfLHAqGAh7OI x1KDAtfKvbWlVgMGA4XgW 5BNG5iHGvzT2a pMhlodharB9wDdj+RmVtY LkoEU09RR57oDVpp1G6sY E5V4RePWBygrtudxvolIS 6FIHrUQEszL06 mJQsWKbyFl4ru1T4c509N EZjYARoiN26Ud3qoQjiEX FbxQBQtP1kobiyp7pcqgt gIzAwMDAwMDt0 NLc9RMEueWcwZcStTXK6S nW4ENL3kPVeiG8pqMpmxp guwW5tOtm+YVAjYPEki2E dh9IqCR33EB36 Q1FkSrawyFHnaTH+PHRhY mxlIHdpZHRoPScxMDAlJy TaySvvGC5fWr4xACIgZOQ vbGxhcHNlOiBj d5vjBUZiVInnVS8ilPviT 0EenAR7RYRil4i0Fc30C7 7qJ5YznTT+SIUflAW0cUY 6rS4kWoOnXzG2 RQlzG398IaYkyKUcCoeud 7bon7gyaMp1YqAoHPUwfo XjzXquAFK3y8TcJq17X90 sIHdpZHRoPSIy IFQxYBEqeRkdmu3msR2rD i8+FIInbBL9uVD8wF6aJe NxHeQ0SZeaJ171ArWbqMV jNsxfI72tN0Ia dXA+MIGnRif5WIAviBetJ H8veZDrNSuuOk0gKBX7Eg TxVoIyGFrpE9QiQIQmzny dkhzjkHK5SHYk ZOMmeP72Qb1mdTmeVw2rU VHcWAX6MFPmyUWzX0HieP 8pEyZxJBGyOJDoC2TblZS sNWfuE146OQvf DqI9YDWcsmFxD0IdIXVnm TvlTsI7q9Q9Fv6JpUdecQ IkUG4vTgHcLDl8B1ElNox 7PXWpqDtdPF3c pYFrWCduQk9wzUzloTbdF C8sXBAzfedmr802SxDab3 mpHWEspSFwGEgfKIN5W12 nw1U7DMMaCVAi PHC4iSX5gU9njWyobwktv GVmdDsgdmVydGljYWwtYW mnO951NZIorHnzEmKDQcz 7G4YkZit5FROo uUqsDE8gkBYvKRyyVb2wu GaaoBzhIC8vEGHoaoavz2 83WgBgu0ggWZAxmIJdKWx pWQH3T45ym8F8 TPDkFJCqAOB1dMF7dO3yu GlnbjogbGVmdDsgdmVydG qpTWlfCHpnZ330NZNrzUs pIh7JIjr0M7Jf Efo4GNAbsPmkIR3slRNeK UqtWd7rnUrwhRyiVZ8kIA Sfbbypi582LjFep6tiMDX wcHQgVGltZXM7 R33he4P5ARJnMUCuLGG0n ZS2xE5lmJubirtktFKykD qlusHvmAswHRffHIoaO72 6IHRvcDsnPlBh eWVyOjwvdGQ+SN69sl43I 8PvXskmXff6YVYxTYE8eW P3gY1fNGXtCEwqc7M3fHA 0U5DpniUlko8j w4mgOOPz (more content not included)... Normal [facility] 01-19-2023 Follitropin Qn 4.6 m[IU]/mL Invalid Interpretation Code [facility] Comment on above: Result Comment: Adul t Female: Follicular phase 3.5 - 12.5 Ovulation phase 4.7 - 21.5 Luteal phase 1.7 - 7.7 Postmenopausal 25.8 - 134.8 Performed at: [address] [id number] PhD Pancho Higgins Performed By: #### 1 [id number], [id number], 2152409, 4762032, 8183522, 694739734, 8740490, 0119686, 2879695, 15623806 ####[facility] [id number] [place] [address] Lutropin Qn 12.1 m[IU]/mL Invalid Interpretation Code [facility] Comment on above: Result Comment: Adul t Female: Follicular phase 2.4 - 12.6 Ovulation phase 14.0 - 95.6 Luteal phase 1.0 - 11.4 Postmenopausal 7.7 - 58.5 Performed By: #### 1 [id number], 25170604, 7720951, 0080038, 2823997, 466152084, 0161896, 7395119, 8543826, 38620408 ####[facility] [id number] [place] [address] Auto DiffOrdered By: SYSTEM SYSTEM on 01-17-2023 Basophils/100 WBC (Bld) 0.5 % Normal 0.0-2.0 [facility] Comment on above: Order Comment: Order Added by Discern Expert. Performed By: #### 1 [id number], 88716432, 4113388, 7186580, 2065830, 408372959, 6860658, 8236382, 4099791, 13303345 #### [facility] [address] [place] [address] Basophils/Leukocytes Auto (Bld) [Pure # fraction] 0.1 E9/L Normal 0.0-0.2 [facility] Comment on above: Order Comment: Order Added by Discern Expert. Performed By: #### 1 6386715, 50331435, 9230845, 8895219, 3055702, 933682592, 1145985, 4026856, 8984204, 11978885 #### [facility] [address] [place] [address] Eosinophils/100 WBC (Bld) 0.5 % Normal 0.0-8.0 [facility] Comment on above: Order Comment: Order Added by Discern Expert. Performed By: #### 1 3812855, 87022998, 8532062, 9048601, 1484238, 458361247, 4136989, 2005544, 9600766, 12267666 #### [facility] [address] [place] [address] Eosinophils/Leukocyt es Auto (Bld) [Pure # fraction] 0.1 E9/L Normal 0.0-0.5 [facility] Comment on above: Order Comment: Order Added by Discern Expert. Performed By: #### 1 7487613, 12730788, 6342991, 1935369, 5054759, 862922338, 2925125, 2614195, 2748982, 06216671 #### [facility] [address] [place] [address] Lymphocytes/100 WBC (Bld) 24.6 % Normal 14.0-50.0 [facility] Comment on above: Order Comment: Order Added by Discern Expert. Performed By: #### 1 [id number], 44581159, 2821048, 7793214, 6407394, 621061400, 6139394, 9535216, 4196060, 96182622 #### [facility] [address] [place] [address] Lymphocytes/Leukocyt es Auto (Bld) [Pure # fraction] 3.6 E9/L Normal 1.0-4.0 [facility] Comment on above: Order Comment: Order Added by Discern Expert. Performed By: #### 1 5413363, 25692719, 0288356, 0768316, 4110902, 954735330, 6930083, 0392216, 3665945, 33084352 #### [facility] [address] [place] [address] Monocytes/100 WBC (Bld) 6.6 % Normal 4.0-14.0 [facility] Comment on above: Order Comment: Order Added by Discern Expert. Performed By: #### 1 1449800, 53140993, 5743227, 3224394, 7402003, 637464193, 8192457, 3858033, 9129309, 71496528 #### [facility] [address] [place] [address] Monocytes/Leukocytes Auto (Bld) [Pure # fraction] 1.0 E9/L Normal 0.2-1.0 [facility] Comment on above: Order Comment: Order Added by Discern Expert. Performed By: #### 1 9857567, 40802683, 4386774, 9134516, 2359098, 062965097, 8318885, 0311123, 1498261, 49346673 #### [facility] [address] [place] [address] Neutrophils/100 WBC (Bld) 67.8 % Normal 36.0-75.0 [facility] Comment on above: Order Comment: Order Added by Discern Expert. Performed By: #### 1 8464588, 71397074, 4853132, 9456375, 0695911, 495426897, 9352742, 2611973, 6714758, 14349660 #### [facility] [address] [place] [address] Neutrophils/Leukocyt es Auto (Bld) [Pure # fraction] 10.0 E9/L High 2.0-7.5 [facility] Comment on above: Order Comment: Order Added by Discern Expert. Performed By: #### 1 7012287, 94715916, 5764571, 3096087, 8258901, 854170201, 1652095, 7201673, 5471571, 42675515 #### [facility] [address] [place] [address] CBC w/ Auto DiffOrdered By: Jojo Mueller on 01-17-2023 Erythrocyte distribution width (RBC) [Ratio] 13.8 % Normal 10.9-14.2 [facility] Comment on above: Performed By: #### 1 7568617, 37613656, 5216772, 3119573, 3909048, 265906039, 2766325, 9366894, 9152325, 96763104 #### [facility] [address] [place] [address] Hematocrit (Bld) [Volume fraction] 46.0 % Normal 34.0-46.0 [facility] S Comment on above: Performed By: #### 1 2455172, 99237698, 8788386, 6162974, 7196825, 058183172, 0085904, 8421404, 7030214, 33804969 #### [facility] [address] [place] [address] Hemoglobin (Bld) [Mass/Vol] 14.9 g/dL Normal 12.0-16.0 [facility] Comment on above: Performed By: #### 1 0636084, 23193514, 1511060, 3264826, 3310882, 214906427, 7809377, 4595019, 0001498, 59536973 #### [facility] [address] [place] [address] MCH (RBC) [Entitic mass] 28.1 pg Normal 27.0-34.0 [facility] Comment on above: Performed By: #### 1 0600007, 32017078, 6129579, 7432687, 2280858, 294303837, 7059699, 8481217, 5798428, 91225769 #### [facility] [address] [place] [address] MCHC (RBC) [Mass/Vol] 32.4 g/dL Normal 31.4-36.0 [facility] Comment on above: Performed By: #### 1 8138376, 50872566, 4005673, 2401737, 7517753, 453884027, 9172328, 0293430, 1741555, 85287800 #### [facility] [address] [place] [address] MCV (RBC) [Entitic vol] 86.6 fL Normal 80.0-100.0 [facility] Comment on above: Performed By: #### 1 0417765, 18173575, 3803939, 6749269, 3475462, 639238552, 5244971, 1975459, 7200561, 45348226 #### [facility] [address] [place] [address] Platelet mean volume (Bld) [Entitic vol] 9.5 fL Normal 6.4-10.8 [facility] Comment on above: Performed By: #### 1 9283455, 61973262, 9794594, 4196811, 0581599, 648297806, 3255326, 6148845, 6218075, 29504694 #### [place] [facility] [address] [place] [address] Platelets (Bld) [#/Vol] 298.0 E9/L Normal 150.0-500.0 [facility] Comment on above: Performed By: #### 1 6030262, 08335805, 2357737, 1498231, 0184819, 550449863, 4005528, 4855095, 2347887, 01610401 #### [place] [facility] [address] [place] [id number] RBC (Bld) [#/Vol] 5.3 E12/L Normal 4.3-5.9 [facility] [place] [facility] Comment on above: Performed By: #### 1 6302975, 17004074, 9656960, 9095644, 7519552, 931944260, 5557670, 1953308, 6892407, 74139532 #### [place] [facility] [address] [place] [address] WBC corrected for nucl RBC Auto (Bld) [#/Vol] 14.8 E9/L High 4.0-11.0 [facility] Comment on above: Performed By: #### 1 5246450, 89473465, 3748304, 7713433, 8495557, 446820212, 3392885, 6167977, 7561935, 73319253 #### [place] [facility] [address] [place] [address] CHEMISTRYOrdered By: SYSTEM SYSTEM on 01-17-2023 Albumin/Globulin [...] 01-17-2023 Albumin [Mass/Vol] 4.3 g/dL Normal 3.3-5.0 [facility] [place] R emisol Comment on above: Performed By: #### 1 3607574, 49628397, 5366421, 4239107, 3949904, 568499274, 8557730, 0386713, 6021810, 17440282 #### [place] [facility] [address] [place] [address] Anion gap [Moles/Vol] 12 mmol/L Normal 6-16 [facility] Comment on above: Performed By: #### 1 4851069, 62516679, 2302746, 4188984, 8622175, 194193626, 9204357, 4105276, 1042812, 15106422 #### [place] [facility] [address] [place] [address] Bilirubin [Mass/Vol] 0.6 mg/dL Normal 0.0-1.1 [facility] Comment on above: Performed By: #### 1 0383976, 68607781, 8944862, 0567534, 4433218, 344390919, 3764441, 3009764, 4304287, 21123176 #### [place] [facility] [address] [place] [address] Calcium [Mass/Vol] 9.6 mg/dL Normal 8.9-11.1 [facility] [place] R emisol Comment on above: Performed By: #### 1 1015892, 66540917, 2000030, 7587061, 2101313, 238703380, 8216035, 6100224, 8353677, 24272441 #### [place] [facility] [address] [place] [address] Chloride [Moles/Vol] 101 mmol/L Normal 101-111 [facility] Remisol Comment on above: Performed By: #### 1 4670899, 27837576, 8699050, 3273519, 5296191, 870000921, 9450724, 1857478, 7380526, 91285966 #### [place] [facility] [address] [place] [address] CO2 [Moles/Vol] 25 mmol/L Normal 21-31 FT Jone bobbi Comment on above: Performed By: #### 1 5106342, 27929995, 9386767, 3285640, 3652720, 764689938, 5396408, 1600650, 0740665, 36445232 #### [place] [facility] [address] [place] [address] Creatinine [Mass/Vol] 0.7 mg/dL Normal 0.5-1.3 [facility] Remisol Comment on above: Performed By: #### 1 2009936, 58687358, 0829822, 6147303, 8594152, 257969763, 6133512, 7818538, 8562605, 14534606 #### [facility] [address] [place] [address] Globulin (S) [Mass/Vol] 3.1 g/dL Normal 1.4-4.0 [facility] Remisol Comment on above: Performed By: #### 1 4779956, 09445308, 2354751, 2479614, 9425237, 275809579, 9310764, 9310906, 8415122, 91585520 #### [place] [facility] [address] [place] [address] Glucose [Mass/Vol] 82 mg/dL Normal 55-199 [facility] [place] R emisol Comment on above: Result Comment: If t his glucose result represents a fasting glucose, interpretation should refer to the following reference range: 55-99 mg/dL Performed By: #### 1 2417441, 37041787, 0646535, 6796751, 8673211, 152548115, 5755027, 2144089, 8712119, 79173489 #### [facility] [address] [place] [address] Potassium [Moles/Vol] 4.3 mmol/L Normal 3.5-5.3 [facility] [place] Remisol Comment on above: Performed By: #### 1 3622602, 34547750, 4079346, 8714889, 2310097, 757893116, 0743477, 9934668, 6176271, 80566264 #### [place] [facility] [address] [place] [address] Protein [Mass/Vol] 7.4 g/dL Normal 6.0-7.8 [facility] [place] R emisol Comment on above: Performed By: #### 1 6545367, 84891539, 1416702, 9609873, 7918281, 108383535, 0942703, 1683579, 6454658, 81424796 #### [place] [facility] [address] [place] [address] Sodium [Moles/Vol] 134 mmol/L Low 135-145 FT R emisol Comment on above: Performed By: #### 1 [id number], 70693110, 7008215, 7748923, 9037036, 904904301, 6243945, 4042362, 5645959, 18612268 #### [facility] [address] [place] [address] Urea nitrogen [Mass/Vol] 10 mg/dL Normal 5-21 [facility] Comment on above: Performed By: #### 1 7080653, 04503600, 8382448, 3167312, 0645927, 023927225, 2424244, 3711385, 7719239, 74474497 #### [facility] [address] [place] [address] CMPon 01-17-2023 Albumin/Globulin (S) [Mass conc ratio] 1.4 Normal 1.1-2.2 [facility] Comment on above: Performed By: #### 1 1989624, 17085442, 3159827, 0279131, 5998753, 763835121, 0206554, 3386145, 0443570, 01818642 #### [facility] [address] [place] [address] ALP [Catalytic activity/Vol] 84 Int._Unit/L Normal 21-98 [facility] Comment on above: Performed By: #### 1 0403661, 34922343, 6705010, 0240891, 5315711, 108318991, 7995127, 0832298, 8535118, 18004696 #### [facility] [address] [place] [address] ALT No additional P-5'-P [Catalytic activity/Vol] 20 Int._Unit/L Normal 6-46 [facility] Comment on above: Performed By: #### 1 9069377, 49662909, 6436520, 5305576, 6990370, 927113942, 5791517, 4123059, 7213326, 74536590 #### [facility] [address] [place] [address] AST [Catalytic activity/Vol] 15 Int._Unit/L Normal 5-43 [facility] Comment on above: Performed By: #### 1 0066675, 69808551, 9751293, 5320876, 9639825, 613175704, 2403841, 5176753, 6828882, 43532471 #### [facility] [address] [place] [address] Urea nitrogen/Creatinine [Mass ratio] 14 No Units Normal 10-20 [facility] Comment on above: Performed By: #### 1 9942250, 01216673, 2232187, 4323863, 1239164, 682580180, 6383372, 5100058, 2665072, 09885830 #### [facility] [address] [place] [address] Free A5Jcfumhb By: SYSTEM [employer] STEM on 01-17-2023 Free T4 [Mass/Vol] 1.02 ng/dL Normal 0.58-1.64 [facility] R emisol Comment on above: Performed By: #### 1 6664009, 75122707, 4700639, 0819607, 6404302, 065256667, 7737368, 8751565, 0532116, 88096989 #### [facility] [address] [place] [address] Lipid PanelOrdered By: [email or web address] SYSTEM on 01-17-2023 Cholesterol [Mass/Vol] 171 mg/dL Normal 120-200 [facility] Remisol Comment on above: Performed By: #### 1 3500209, 84413077, 1712145, 5335438, 4776015, 455381974, 9748191, 0223793, 6828459, 75377242 #### [facility] [address] [place] [address] Cholesterol in HDL [Mass/Vol] 60 mg/dL Invalid Interpretation Code [facility] Remisol Comment on above: Result Comment: HDL > or equal to 60 mg/dL: Low cardiovascular risk HDL < 40 mg/dL : High cardiovascular risk Performed By: #### 1 3118615, 55097113, 0919109, 3840874, 3197432, 140237596, 9335491, 1465067, 8494708, 54069390 #### [facility] [address] [place] [address] Cholesterol in LDL [Mass/Vol] 52 mg/dL Normal <=129 [facility] Remisol Comment on above: Performed By: #### 1 3258817, 73424827, 0575174, 0901452, 7923103, 709875490, 8086135, 3677217, 4985446, 12036108 #### [facility] [address] [place] [address] Cholesterol in VLDL [Mass/Vol] 63 mg/dL High 7-40 [facility]isol Comment on above: Performed By: #### 1 0842721, 21753837, 9799336, 1506602, 8893811, 365941083, 3571623, 5656691, 9185677, 84705098 #### [facility] [address] [place] [address] Triglyceride [Mass/Vol] 316 mg/dL High <=149 [facility] Remisol Comment on above: Performed By: #### 1 0497915, 84940482, 6224836, 9428415, 8474694, 425386227, 8135735, 4010264, 6303183, 32247780 #### [facility] [address] [place] [address] Physician Orderon 01-17-2023 Physician Order [id number]# 1.00CD:127 Normal [facility] T4 & TSHon 01-17-2023 T4 [Mass/Vol] 10.0 microgram/dL High 4.6-9.1 [facility] Comment on above: Performed By: #### 1 1747909, 56931372, 2488517, 9847371, 2469848, 525393119, 0957306, 7367449, 6625845, 31440170 #### [facility] [address] [place] [address] T4 & TSHOrdered By: SYSTEM S YSTEM on 01-17-2023 TSH Qn 3.76 m[IU]/L Normal 0.34-5.60 [facility] Remisol Comment on above: Performed By: #### 1 3294266, 68296913, 7188818, 0587516, 6777061, 446294947, 4065577, 2702839, 7360611, 01170117 #### [facility] [address] [place] [address] Vit L50Gwmcaln By: SYSTEM [employer] STEM on 01-17-2023 Cobalamin (Vitamin B12) [Mass/Vol] 272 pg/mL Normal 50-1500 [facility] Remisol Comment on above: Performed By: #### 1 8585097, 29390654, 1042254, 9875812, 8133163, 924908180, 4363893, 4133744, 4576578, 90885166 #### [facility] [address] [place] [address] Vitamin D 25 HydroxyOrdered By: SYSTEM SYSTEM on 01-17-2023 25-hydroxyvitamin D3 [Mass/Vol] 30.1 ng/mL Normal 30.0-100.0 [facility] Remisol Comment on above: Result Comment: Vit rizvi D deficiency has been defined as a level of serum 25-OH vitamin D less than 20 ng/mL (1,2) by the [place] of Medicine and an Endocrine Society practice guideline. The Endocrine Society further defined vitamin D insufficiency as a level between 21 and 29 ng/mL (2). 1. IOM ([place] of Medicine). 2010. Dietary reference intakes for calcium and D. [place]: The National Academies Press. 2. Jacquie MF, Hemanth NC, Barby INGRAM, et al. Evaluation, treatment, and prevention of vitamin D deficiency: an Endocrine Society clinical practice guideline. JCEM. 2010; 96 (7):1911-30. Performed By: #### 1 8993998, 90870222, 4501316, 7191318, 6407029, 897692579, 8290236, 3774606, 3099790, 75821457 ####[facility] [address] [place] [address] eGFRon 01-17-2023 GFR/1.73 sq M.predicted among blacks MDRD (S/P/Bld) [Vol rate/Area] mL/min/{1.73_m2} Normal >=59 [facility] Comment on above: Order Comment: Order added by Discern Expert. Result Comment: eGFR is race adjusted. AA=. Performed By: #### 1 2870439, 12930657, 2683028, 1559148, 7176146, 441656909, 8445574, 3087130, 1115191, 54517558 #### [facility] [address] [place] [address] GFR/1.73 sq M.predicted among non-blacks MDRD (S/P/Bld) [Vol rate/Area] mL/min/{1.73_m2} Normal >=59 [facility] Comment on above: Order Comment: Order added by Discern Expert. Result Comment: [employer] hunter kidney disease could be indicated at eGFR's of less than 60 mL/min/1.73m2. Kidney failure is indicated at less than 15 mL/min/1.73m2. Performed By: #### 1 3425065, 51539577, 6970296, 9207428, 4414865, 952174059, 6047760, 6219948, 4903875, 79785719 #### [facility] [address] [place] [address] Coding Summaryon 12-21-2022 Coding Summary HTMLBase 64 BokxgzrtYAs4vWw+PGhlY WQ+QF9GNEBwH50mcELsuH 1AW5uUCZ7UFTBGNZQYIK0 BKS0eoKQ5WBxuH3VxkdOl XbnqjFVlBZ80FHb2FZO0d NysTZfcrY2emXIlQ8p0Ll JxJD66wL98OOrwSHAfOdP 3LjZpbjsgbWFy C5cqVnBzbFWqNzj+PHRhY mxlIHdpZHRoPScxMDAlJy ZswApbHQ6jFh0kMXEjNWQ vbGxhcHNlOiBj u4koGWShJKzzBM7lbZxtR 7HseWL9AJVsf5c8Lr61cG I+QLUcUBV1fHgzXBmej58 7MiRuw4weBKQ4 aDFqGYuuIXF6L99ww9T7B UWqVRRtQCT1fYQ6xE3xwD dnpamzC9UjuBNtWrW5TGY 0cSRsoL6mmEkk ltctrE9pLkj+T22RUN4FL YKQAB9ASyz2K4PhUeijmF I+WL51MHOwUO77uLNifPP pf7nruYq3QmQt QSHlYIJ2zOyzXDkgg2NjU OKkW43vrDXtj1P3MEIuaW novPKrXeUdyVS8gV6iTJj wmpjhp8ykjlee Vsbsd3mobs39vN94A11cJ BvnXFVvYDW4KYBkLFUimU cxjg0cqP9xVv2+NUrky0q nr2niqKx1EjZn XXGzzwSvxHwaFQY4v5SaL x34V4EpoHbsp3JjIcc2pk 30oZHdb7I4nLQ1TRxwPQU dhU4pTSbrIoS5 VBDvKcIlgT45sHJrYOatH t7ugZwugVbbLH8dPODmnu hpYARdjU2aPLDupVEdgAd mMH4eUNFwhslz s707OlKjKIP8ZYHbuMKpQ 8ZizW9mDoSvCLTtDFPmP2 FnePRhHUgfB125PJsbYjZ 4PPToxlOaE4Yr GHUcmLnzLcS2w5U5Rb9Cf 7PfwntfURU0SWklMNLaVi MyCbJkIzN0P0YgBty9OSJ xpEjyTU7uX8Qa IJAiwftvdejkdBW5HJBfM PRfpU28qDOyRWqaVp2ye6 X2r105GYUqBIUkvI15Jl4 udDogMTBwdCBU yN0emstru7mzpugpDrXsY IOdONc2TUg3YKPhvXznEf UtSQZ7VwC1FDK0mHRbvH1 lvEnwzubuyJ4c Oyc+Y02ykE6mUBO3IPM3p aeaYQWcymWoIX48WP34E4 RyPjwvdGFibGU+PGRpdiB tnAzsPB6aGfOu c6gxt8UfACvrL7HgGISwS HeaBsf1IOAhIUN4tAY8fV 4tOMPmLJwoz8U9aID0J8U ujkChoq4fo6wd NDErZGmmX51hcIAwa2W7G HEggPZ8ZGBgsVgnDdHknT 93Oyc+YGPnkLprd0UmWvs hi7ohg9vbiZe7 EiXoDXQmtuPenBjrFPV4c 5MxIp15Y22pTCtfNOLoNE JsIJFiQKXttYlkti3dsF4 wIi8+PGNvbCB3 dBK2nJ4rCYXrPkI6ZJlrN 492UwSzqQMgCkjql0voc7 elkCn1HrYtQTIgibBqvJy dCCH1p4SgLu95 R29dBTntUVOaCNSrBHMxU OOjaQebjp3vnZ9zJp1+PC 9cq5qfti56bS90sZJ+PHR rKBJ6jRnaXSrz RLYxdL6zGPajWxA0ZFCyX gBviU74qKKpAQioQl1rkU bkrFdoQA5vPLUawpycv67 4AfBci4vsOZDw eZNhRQjnSHU9T45yb1V3R VRhSEIkLGR4oGG1wA0opZ lnbjogbGVmdDsgdmVydGl pRMduZSnnS055 IHRvcDsnPlBhdGllbnQgT lMtPKm4Y2HcBot7GBUjeH kpIA2jhJDfNFkqLz8daNa apPpuNP6yEZWa jiqoy002QrIio8vfJGRmz MOnIYgjGRW9T94be0F8ZV GmFNHqLVT3dRQ1uE1fkSu nbjogbGVmdDsg vaLeoSbhTDydWCkvT508L HRvcDsnPkJpcnRoIERhdG G8DV50XJ63dKFpk9C7nWU 3T8JiHMGpxywy rifyoNE8GHSoPHFhqL77B m7ltAzwOk2gVGRbAUG2OV XjpRWkU0NlrD9lFkKzIYH cXAUtD6JptDZh OEhsM530OTdnEwQ5NRWxv dHjH6HpLNLkjBjfOsD7t1 S1Rd6UN0O6QX03OE70xJY ns2H6uUD2V4Ht TFQlctizttiplWL1HTUsN GDvrJ43Jt6sbZiwJl8yHW JfVPD6KQNklMJwN4RmhI4 yOiAjMDAwMDAw U3OnjORhHTohK774VXhnJ fS0KZYgoiWqA5PiURFssC icHwL1k0T0Sm0VHHd9IT4 0JW98uHYhv8Q1 zDT5B0GkVVAzfxotgexmd RY7PNJdPSPekZ40Gq1hzT dkYz6iAEVjWUC4LVSjiZL eM2QjkL0vBiUy XVVbUCNgM3WzxTVvYHxsK 284LCrsZgT9PJAqgrMfS2 PfMWNciEnuFsX2k1O9Ff8 EXFNgCI92BFI7 eCE3IE97PM59T5KaTbfmm GFibGU+PHRhYmxlIHdpZH RoPScxMDAlJyBzdHlsZT0 wFf4eBGRyVDAg rNxpvEShKoRai8ypFWFcH LiuZE1zaYqpT7HgcDX7WR Mrz0p5Ny25U63lU5QnuZG +PRDjfJT4qXX8 tB6rOnUwGrX9QOadU431D dQjxPUmYucyj0sfa1txsE n5LvS9VOHspgLbiYolORW 7n1KhMt81S02j IHdpZHRoPSIxNSUiIHZhb Xlncg2hsL4cIy5+PGNvbC T1yVF8bL1zYuHvKpZ2CYh oY754YeBdaLZq Bjehd8ayt4hybZl6KcUbK WZsjwKwdSibMEX8z6WyHq 42A6GtuNjdm0YfIol8ap3 9qRZrk2S3tCS0 Q6DmMWUyxhdlwGXrsIqcI L4uRTLmctyqMPWwmS0nKP BzY1e5KkJzUwW6ESdeE6B cnbR3ZRSutHDv ORzbYAQ9C15wu1Q8QQPfI KSuYSQ2oWS7kA7kfJifwt ogbGVmdDsgdmVydGljYWw iEUieM921ZMBi vJqtVJRplY0sYKSqxPPsg PqxQI1hZHQppngjQnjOGK 5HLCBLUklTVElOQSBFTEF CCqM7B3DpLgh5 RPTjwJtaHB8hjXGxYUaaZ s7oaOfuoSdyXK2uPGYouj btJVSwtM0jGASiaIDlhCu fSU1sEGFrdclh g443LqXfIOQ3JRUkcZUfG 9HgcA6cJvKuIJXvIVOfS9 CkjJSzNBsfP969MPpmNzJ 9KRBzelBfQ0Mq OZEvbRsyDfP9l5P1Nd7zN w9vEV8bKWi1TH09GX82eP Htf5A0uGQ9E4HpTHCogao nflownYX9CIXi VIVdgC96fAXcTVwsRb7ml 6S5v240HSXyJQQnzN67Dq 2dhOmlMNHylETYsA2wurk ps1sszttxFrAh WNYhZTv4NKj4XACnkFyuW bWzOFO7UrE0ZTC7mEOigU 8rpWcjtbzghP7nNss+MzY dURYasxL2A0Td Tok9TWKpiRrhYD3eiSKrM IjfLc2ylCbwvYkqFS2iTJ VgoicrMPUcbJ2wDRGitSI qqEujFT7oLTYo znnqh784LlZbFUS2THDea HGoR4RpyK1oWrNuTFIbQD BjJ6WisFQwEOmgM646UNs cJsV6GXYjtnEf U8CjQGNbqAtzUfW4z3F6V j1ODZ8PWNX5W3XsAwi3EM LbxUubAH4suJUxKTmyMl7 vkQvokZzbRU2z EPTyizkwJLMrfS1eHUFkr HGokJuiOB2tNFQdfhbme7 87IwIaUDU2QCRwsXDbI6G yhQ9vIoIeIGQq BODzX3OguBUgDPhgP630Q KdzJkM5BFMospFvX7IoBR NwtOmzEiQ3g6Y5St2UFHa vdGQ+VP06qa53 Y5TtXupvYkx7RVBiHPB9x PA7yP7lJFYaONgup9U3kJ N0N2LemtBjrs3ak3vqQWK rBCvmH05owQXv a4H0ZWBlaVU8HHSftDimM uNywL97Fdk+PGNvbGdyb3 HtHmvoi5gge2phhZo8MqK wJSIgdmFsaWdu PAI2o8TiQc46I05fRDmjA HRoPSIzMCUiIHZhbGlnbj 2lbW6oYn9+KCBqsGF4sEB 0bB5kLtReYmD5 FLowC824PlEvgYJnIfaui 7nrb2xxiLr1QgSgFPVejq NcpGqqDDM4n7TjXu02R0H ihYihs0ZgYdp9 ls96qNCqv5F9nQV6P7EqU KMpuvkubBWtnEldYU0pGC ZhlxsaJAWceI8mQHLzP7y 3ScQdWhR8DKwn L8EskiB3XUQehGGiCQBbg XUJgH5mjurlz0vpxasmMf GiCSHkYNa6STa0VZOfpFv kGhUcADR8SmF0 OWN1kHKfaJ1txYpriqtdf G9wOyc+JTb9u4ehzHNbMY 8xxVS3ND63KI80gTNca5J 6pNL3F3AfGQSm rzpwetlirDN6TOIbZMZxh C75Dn0qeFknKc3rVTQfVH Z3XQUjlCKvY9GclI5nEgM pYETnWGHbU3Mo mKEjXMmbA608FJpbKiS1W OFjufMtR4DaUTHjfBopNo O6w4Q2Rq5AKY43DX66PL1 0pFIrx9G5iZK6 Y3NjGNAvtxlfgcxxnGH7A TXbTJBcpF83Oy9uxQwkDq 7eFLGzYIG1LYDmlPVqX0R veI8kDwXnJPLx IZSkH5KnzUTmKQjiM617V QfrEjF0XKVrguGtK9RfXM HcjSanNoH4o8C9Qf7LQf7 7HG58ZG17fYEz m7G0qBH3A1XlMNJzklezl kijgLC9ACUoUJOvpG40Lu 6tcMryCq5pPUXaZFT2MVC nyAAmO6CdaM5q PvMeSOVkWCNcO3TptSUsP UafQ450JFiaNsX1XTRmmr PmE0CoRPFsyBthMdD4a4P 6Lo0RXEysmkb1 U0MbUvjouVG+II64IRNpU O02bLTugLTcd8jxnKe5Fs PpYFJlYZG0gKplJTfep5E sJFXyQ04orBTq c2U (more content not included)... Normal [facility] ED Clinical Summaryon 2022 ED Clinical Summary [facility] ? [facility] Care [address] [place], [place] [id number] Clinical Summary PERSON INFORMATION Name: NOBLE SANTIAGO Age: 37 Years Sex: FEMALE : 1985 MRN: Acct#: Visit Reason: UC - Sinus Pain or Congestion; UC - Ear Pain; LT EAR PAIN Arrival: 12/16/2022 11:36:50 Discharge: 12/16/2022 12:00:00 LOS: 000 00:24 Check In: 12/16/2022 11:36:50 Checkout: 12/16/2022 12:00:00 Address: [address] [place] [address] PCP: Ame Ortiz CNP PROVIDER INFORMATION Provider Role Assigned Unassigned Sandra Dinh MINIBUS DRIVER Nurse 12/16/2022 11:39:08 Cong Cobian PA-C ED PA 12/16/2022 11:41:06 VITALS INFORMATION Vital Sign Triage Latest Temperature Tympanic Temperature Temporal Artery Pulse Rate O2 Sat 98 % 98 % Respiratory Rate Blood Pressure /78 mmHg /78 mmHg MEDICAL INFORMATION Medications Given: Allergy Information: Tape; Betadine; codeine PHYSICIAN DOCUMENTATION DISCHARGE INFORMATION: Discharge Disposition: Home Discharge Location: Home PATIENT EDUCATION INFORMATION Instructions: Otitis Media, Adult, Paof-wn-Kwbo Follow-Up: With: Address: When: Ame Ortiz [address] [place], [place] [id number] Business (1) Within 1 week Comments: Please follow-up with , call the office schedule an appointment to be seen in a week or sooner for continued care, taking amoxicillin as prescribed, take yfru-com-xdklqfw ibuprofen Tylenol as needed for pain and fever, drink plenty water stay hydrated, and return back to the urgent care center for any worsening symptoms, concerns, or complications. DIAGNOSIS: 1:Left otitis media Patient Understands: Yes - Patient/family/caregi regina verbalizes understanding of instructions given Comment: Normal [facility] ED Patient Summaryon 023 ED Patient Summary [facility] Care [address] [place] [address] [id number] PATIENT DISCHARGE INSTRUCTIONS Patient Information Name: NOBLE SANTIAGO Age: 37 Years Date of : 1985 Reason For Visit: UC - Sinus Pain or Congestion; UC - Ear Pain; LT EAR PAIN Arrival Time: 12/16/2022 11:36:50 Primary Care Physician: Ame Ortiz CNP Attending Physician: Cong Cobian PA-C Comment: Patient Education With: Address: When: Ame Ortiz [address] [place], [place] [id number] Business (1) Within 1 week Comments: Please follow-up with , call the office schedule an appointment to be seen in a week or sooner for continued care, taking amoxicillin as prescribed, take gdqs-qkh-uunkxef ibuprofen Tylenol as needed for pain and [...] Follow these instructions at home: ? Take gibk-zbp-mpmpejr and prescription medicines only as told by [...] provider. Document Revised: 01/25/2022 Document Reviewed: 01/25/2022 [employer] Patient Education ? 2021 [employer] Medication Information: The exam and treatment you received today in the [facility] were for an urgent problem and are not intended as complete care. It is important for you to follow up with a doctor, nurse practitioner, or physician?s tax assistant for ongoing care. If your symptoms [...] Radiologist will (more content not included)... Normal [facility] Rec[facility] 023 Urgent Care Record [facility] ? [facility]gent Care [address] [id number] PATIENT DISCHARGE INSTRUCTIONS Patient Information Name: NOBLE SANTIAGO Age: 37 Years Date of : 1985 [facility]: [id number] Reason For Visit: UC - Sinus Pain or Congestion; UC - Ear Pain; LT EAR PAIN Arrival Time: 12/16/2022 11:36:50 Primary Care Physician: Ame Ortiz CNP Attending Physician: Cong Cobian PA-C Comment: Visit Diagnosis: Diagnoses This Visit Left otitis media (H66.92) UC - Ear Pain ([id number]) UC - Sinus Pain or Congestion ([id number]) If you received any narcotics, sedation, or [...] documents With: Address: When: Ame Ortiz [address] [place] [address] Business (1) Within 1 week Comments: Please follow-up with , call the office schedule an appointment to be seen in a week or sooner for continued care, taking amoxicillin as prescribed, take gvrm-tcp-tmumeqh ibuprofen Tylenol as needed for pain and fever, drink plenty water stay hydrated, and return back to the urgent care center for any worsening symptoms, concerns, or complications. Medication Information: The exam and treatment you received today in the [facility] were for an urgent problem and are not intended as complete care. It is important for you to follow up with a doctor, nurse practitioner, or physician?s tax assistant for ongoing care. If your symptoms [...] so we can reach you if necessary. [facility] has provided you with a complete list of medications post discharge. Please inform your production sorter/provider of your visit and for further instruction on these medications. Any specific questions regarding your chronic medications and dosages should be discussed with your primary care physician(s) and/or pharmacist. New Medications [id number], [address], [place] [id number], [phone] amoxicillin (amoxicillin 500 mg oral capsule) 1 [...] 1 capsule by mouth once daily. rizatriptan (Maxalt-SENIOR ANALYST 10 mg oral tablet, disintegrating) 1 tab(s) [...] The condition (more content not included)... Normal [facility] ER URINE PROFILEon 2 Bilirubin Ql (U) Negative Normal NEGATIVE [facility] Comment on above: Performed By: #### E RUR #### [facility] [address] [place] [address] Dr. Phong Thayer Clarity (U) CLEAR Normal CLEAR [facility] Comment on above: Performed By: #### E RUR #### [facility] [address] [place] [address] Dr. Phong Thayer Color (U) LT. YELLOW Normal YELLOW [facility] Comment on above: Performed By: #### E RUR #### [facility] [address] [place] [address] Dr. Phong MONTILLA A micrscopic examination will be performed if indicated. Normal [facility] Comment on above: Performed By: #### E RUR #### [facility] [address] [place] [address] Dr. Phong Thayer Glucose Ql (U) Negative Normal NEGATIVE [facility] Comment on above: Performed By: #### E RUR #### [facility] [address] [place] [address] Dr. Phong Thayer Hemoglobin Ql (U) Negative Normal NEGATIVE [facility] Comment on above: Performed By: #### E RUR #### [facility] [address] [place] [address] Dr. Phong Thayer Ketones Ql (U) Negative Normal NEGATIVE [facility] Comment on above: Performed By: #### E RUR #### [facility] [address] [place] [address] Dr. Phong Thayer LEUKOCYTES Negative Normal NEGATIVE [facility] Comment on above: Performed By: #### E RUR #### [facility] [address] [place] [address] Dr. Phong Thayer Nitrite Ql (U) Negative Normal NEGATIVE [facility] Comment on above: Performed By: #### E RUR #### [facility] [address] [place] [address] Dr. Phong Thayer pH (U) 6.5 [pH] Normal 5-9 [facility] Comment on above: Performed By: #### E RUR #### [facility] [address] [place] [address] Dr. Phong Thayer SPEC GRAVITY 1.015 Normal 1.005-<=1.02 5 [facility] Comment on above: Performed By: #### E RUR #### [facility] [address] [place] [address] Dr. Phong Thayer UA PROTEIN Negative Normal NEGATIVE/ TRACE [facility] Comment on above: Performed By: #### E RUR #### [facility] [address] [place] [address] Dr. Phong Thayer UR MICRO IND NOT INDICATED Normal [facility] Comment on above: Performed By: #### E RUR #### [facility] [address] [place] [address] Dr. Phong Thayer Urobilinogen Qn (U) 0.2 {Gilma'U}/dL Normal 0.2 - 1. 0 [facility] Comment on above: Performed By: #### E RUR #### [facility] [address] [place] [address] Dr. Phong Thayer XR LSPINE 2_3 VIEWSon [...] by: DONALD CANNON Date: 2022-10-23 16:28 Normal [facility] MR head/brain wo/w conon MR head/brain wo/w con [facility] Main [place] [address] [place] [address] MRI Report Signed Patient: Noble Santiago MR#: [id number] : 1985 Acct:[id number] Age/Sex: 37 / F ADM Date: 10/13/22 Loc: MR Room: Type: [facility] CLI Attending Dr: Lambert Gavin DO Copies to: [...] Yovani Arita M.D.10/14/2022 12:25 PM Dictation Location: [place] [address] Transcribed By: [facility] 10/14/22 1225 Dictated By: Yovani Arita II, MD 10/14/22 1216 Signed By: 10/14/22 1225 Normal [facility] Coding Summaryon 10-01-2022 Coding Summary HTMLBase 64 AranztscKCo3zAx+PGhlY WQ+AK3ASNJsA49rxMQmaL 4AC6wILH1GMBZOPQFVMP4 MQB1vzQE7YDlrU4QnfxBb YqmixBBfBU45ITv7NDB6b ZohAMirlE9ujOZoQ9n8Uw KmYZ35tT48KMqkJIQkYcA 3LjZpbjsgbWFy L3jsXtOdjZPtLfm+PHRhY mxlIHdpZHRoPScxMDAlJy AquZexWZ1dFd2kTFLfMXF vbGxhcHNlOiBj x3hyJGFkXXblDX9hlBcuW 8XrkSI0CKXql8q3Zb02tK I+CCXnXHJ8yFllIYlwq92 2AkMja3ikMXF3 gFDfQLafDVB0G40zm5X7Z GIhCVEdZVM3cOA5lO1xtH dfwmvnF0DptWCkQtZ5ESS 9oKZhnQ9diIlf snbhlB8wMii+D84MXU3NI XZBIC0HXbd5Y3BtIusulL I+RV09MVHtKS35bMHwhVH io6vuvEg5BvGn TRCoRRP7xPqdRGnea7NkR WPtI07wfSKuy0E6HHNrlG kuaCZgWbLuvSM2xJ4dNXp ozmdbo3xhhues Elnhc4hysp59mZ89E60nG TgyTLGgNMK8NPIfSWUatN svbi8ffJ9dMo7+DSugg7i zz6xdoNo1BbUg PXCzrwBicUyvUIE4h2QdG r04Q4OtmRtud7PoBhp7pn 43lGPxk7N6bVJ5XZmnPJX fkK8cCHkxEvQ7 PGHxGeLysX90gIOtAYhoK o1nwUfsvSkfKZ2aCJPiza rcMYKkwR1kEDXafBUjqQx dST1bPZDcociv o873ZwUtFXE1ZJVxdVNhH 7XagW0zEzDfXULnHNBxE2 OstNPnWTiwA684XVnfXwP 9JEFwaoVgV0Go WROspDzyBuH3q7H0Km5Je 5RkssyaUFA6UFisNBEwBl RsLkKjHaI9E2IfWxg4CIT dnCynSH5yW4Pw ROFcnhqckqhykDY7TMCyV RPcdC19dNAsUOvlHr6ex9 V0w248KTZsVQQgiL61Om8 udDogMTBwdCBU pI5qiyovl3ruqurcDjUtM ITlBJu0LDb9ERClwJvyJh AhVAS1FjT1PYD0eIAdxD9 beXhscqphyT0l Oyc+R87tiC5cIIF1ZYJ5q xsqIMDqkoWpTY66CM68T2 RyPjwvdGFibGU+PGRpdiB oqUeuFC4bZiVl m4uvr4EpUSwnZ9DwEACeK XmpDkx7UEFzBPZ1uDY9bC 1uDDZjYKjny6J3aHY8E1O hrtVlho2hi5us RAEhUFhrX20ylZRhr8M5X JMzfSA8XFClsFbiCmZomM 93Oyc+EZAdxHigd3AkRmd lq9jou7osdEw1 KiOwSJBwspVboFgwLJJ3p 4ChWt00D50bDZjfFUFvHC IuKPZeCAYxbIbhxh7ncR8 wIi8+PGNvbCB3 vQC7dB9pFKQxQrW4MBkkY 984VyCgmJZnTfxjz6png5 vouNr3CzIfCTOdmiIlnSz fQPK6f1KyLk79 W76lFSppGJXtOSCmJPAgY GVmkKgbrj2laQ3vYj7+PC 9fj2wbsn89tO23mUM+PHR dSZD1wXdbIIkl XBPubU4uTVipQmX4SSEkJ mJkeW64pVAhRQdjDv6sdO ogfQqtMG4qYMAhojsrr93 5OlGwp0qgAPVv yKVmOSunTOB4X23vk6Z1J ZArXLYgHGC0hUU5rV1twJ lnbjogbGVmdDsgdmVydGl cGRydGQymQ708 IHRvcDsnPlBhdGllbnQgT pGiDKn7B3IoRtq2UYBkkC goRE6poCJxVMmgSf5vwAl gcDisZC4qLKDj nhuze550KyFce6glYVRla OHcKYwcSFV4R71dp1Z3QZ QsIAQtBIB5iMY4wU2ofFe nbjogbGVmdDsg guItnZisPComZWarG442B HRvcDsnPkJpcnRoIERhdG U8LW95FG54bSEgb4Y9tVQ 0P3QuYQCpurwj qsrtuUG4NSCrGLXxrD16W d5koCpkPj2gNWWxXGG2ZH WbtNMxJ1BkhX2bLsWiHTP uYYTwN2LayPPx PVfsU167YHiqDwR2PZZgw rAqJ7SbDFXixEquPtJ4w0 V3Sn8KZ3G4RI90RM89sNW gw9F6cBF4E7Gx HEAjcmpdsyawkMD5NHZaP YIxgS69Wg9kuKxuSx6aJJ NnUGB7MQXhcNAxU4QbiH6 yOiAjMDAwMDAw N0ShqQCtYUgbZ422YPonM zO7LTVfrcZjG2NaBFGovI btCeB9f4P8Ac8QYAw5ZP2 2AU10gQQma8N3 aDX3X7UuQMJhhqvzyvemx SB3HIZeZWUedK55Xe5buZ jxBq1jNMAtVQW1MHUihEC nF6WbkG0oUkSd FHTcDNCiG6JkkSNuHDtnK 967JGawWjK4LLTgfiJtV1 DfWIMvjAlcWuH0d0X7Xw7 BFVQkRB57VPN3 kVF3ZS57GA04D7AxWvqsf GFibGU+PHRhYmxlIHdpZH RoPScxMDAlJyBzdHlsZT0 sTw5rUPFbVUJv aLvfhNGsZjVar5ubPOXqG NoxGA0ghZykI3XxiBL7CV Nzf0p2Yr92A29vD9TnwYU +BTCjrWD1hRR4 jO3wFcIqYuP3IUtqJ753U qIytRRzJvlal3uew2zlzA i5JkS2FUWpiuOskZruRQE 0k3VwKu53O34l IHdpZHRoPSIxNSUiIHZhb Xjdrd6clB6bXp7+PGNvbC Z9yNA1vZ7gYqXoOdL8IRy sZ042LeRmvROl Fpzne0grf7tytFi3HrCtX VIujjHbtZouJAY0b4IuTq 17S1CvvNogx4MoBzc5pa9 0sGOjf2H0vXD0 F9PmRVPimsthsFUfbRcaM L3aTNLapxebVHBueY3nBK VjD3e0GsLuIyC3LVlcU9C sroR7XXDbbCCc BDyjELV1K15dn5M6IZJtK EShUOU2hRG8hV8qsYmmck ogbGVmdDsgdmVydGljYWw uBRspW649VHPm eQazJAHgxW5ePSUbbMYfj OxgPQ5zJXEryfbqTivEZK 5HLCBLUklTVElOQSBFTEF GLyN8C2XtAlz8 YICkrQsmIT2rqLMrMKwiN o6mgBnemYpmBV4qIKIfny apBDOysN1rTNUsxUDftOq lEZ8eKAHdbvlj e330PiOpAQQ1JZMkzQNmJ 9YdkY8tVdOjFLSiCGYdY8 KwpBJgYQshH048SAurAkM 7QHRyvjDgF9Xd MXZkpGwyPzW6v2U6Uj4aR s9qXF6oDPm7QC88OG11pI Zbq3N0pIE8R2GwOOCnfak dsuhkgRR0ATHd WDPewC22wEGpPTdsRj4kv 7Y0t483EFAvCNUygY79Kd 1jdQmqUJXewGFGoD6blvg af8bzzorpBcZx IKSuAGl1SOf9HEPfkZjaW tJbVZP2RbT1KDR0pHIlyG 6oaYwkuxdkcR2aJmp+MzY eFUOhdtD2K6Tg Vzb1ERXloLcoAM3afOBiJ RgeBe2kaWaazApoVX1pUH VmdlhtKMSskL0vGHFrtRU bbRhdID6eHDAh rhmjw503HtBdROF4UKGzu LToK9XziW6xQfBpNJJkDV QrY1JfrZWkDQcdB097GXh nAvA6TDRgnoZa E8HyGGYckDhtVdT7t6Y2R r8PLG0NEGI4W4GxNhw6KN TceNbmJN0znXPrOVgpGd7 iuYdldNhpJK9l TVDevilmQVWieN4aRTTty JIlvMvbLB5zFYFguqlms7 74TsNzTAE8YQIncYLgB6J lhE1kKdDgNRRq ZNPyR6XljYSyDOhfJ429L EfiXiT8IVAirdEmI6KdGT NztDqgKlX2s2Z2Nj9BSVg vdGQ+RG99tx92 G1VwQibwOmo1GKAiBZT7x RY6uG0oDRCiPHdwx9K7uF A3Z3LgqfGewz5lv6ofSUL mIBrfI19gkULg p7U9URWkfNX2BFUdvNfwI kZzmF71Erm+PGNvbGdyb3 XiIunzn2lmg4iasPk7CuN wJSIgdmFsaWdu UCZ8u6LqSp50B96aZJfiZ HRoPSIzMCUiIHZhbGlnbj 1ltV5wGt3+SNMgbJG3vOY 3oO2wXyLaHzS5 GAqfM003LtSuxWUdBgzbc 2sha7drfLa0UuRgABZuyg IrpBrcNUG8f9KbBh45M4L bfYboj2PmBas0 ll75yJGez7Q0gIC5A7XrN QWkxzclmXUgsIqfQX2rFN XzwbspACNpbB4mZVZrR2d 8TmWtFkY8PGnc W9DytbO8JXJnsGToPLHyl YHMzM4tdmdxg0qylswbUj VxJCDmKBj9XQi0BSLbkQe uAhTwDEV2WzR1 TXW0wUOroN3kiPrelnwnd G9wOyc+OEo6g9bfeLYwGX 1rbKU5BN92SM54tUHtz5G 8kPR8B1RrENAg edswlsmesES5RXDeUEEzn U40Nd1mwZppUm4hVNDaMM I3MGVvqXTbS2EemF6nVhA bBHGfCEGgO6Ke hPRkFMlxO801GIytXhH7K YZqbgOxI1CjKVPlsWguAn D3n1S4Ir5BGP28AM62WG5 8bZTjg4Y3zEK1 Q6TuSTUavxovvmqivES3E EJyFHDbbE21Cb1fyZwoXq 8oVNDvGOF3XVSjmRAhY3Z uxU6qSlXxTXTa DQAoC8BggXErQKdoB797U MteCdG5ACPxxiOaX1BdNQ KxiXjcXnH2w4R9Ta5YYk7 0MT30FZ31vRUh a0T5iMD6D6TpCMBorfiqk copjRZ4LPVwMGKwcD30Ig 1whVqcGc5qEURiAIT2VDC qsFTlF6JlgQ9t DeZjHSAzRSAqX3WjdIMqW SuhN387CQbgKpQ7DHYdca LpZ2AyGLYliNvbVhZ5j7I 1Vk3CDDxxzsf8 G6DmYuywwPZ+TK83YKDxA O86nKFndHNab6nscSk1Yo WiNQEkAAY3uRkfNJemr8B sBQDzN94siKFt c2U (more content not included)... [facility] Outside Recordson 09-30-2022 Outside Records [id number] [facility] ED Clinical Summaryon 2021 ED Clinical Summary [facility] [address] [place] [id number] Clinical Summary PERSON INFORMATION Name: NOBLE SANTIAGO Age: 37 Years Sex: FEMALE : 1985 MRN: Acct#: Visit Reason: Medical screening exam; ADULT SCHOOL PHYSICAL Arrival: 09/29/2022 10:32:28 Discharge: 09/29/2022 11:15:00 LOS: 000 00:43 Check In: 09/29/2022 10:32:28 Checkout: 09/29/2022 11:15:00 Address: [address] [place] [address] PCP: Ame Ortiz CNP PROVIDER INFORMATION Provider Role Assigned Unassigned Abhi Finney PA-C ED PA 09/29/2022 10:34:44 Sera Cavazos ED Nurse 09/29/2022 10:59:52 VITALS INFORMATION Vital [...] regina verbalizes understanding of instructions given Comment: [facility] ED Patient Summaryon 022 ED Patient Summary [facility] ? [facility] Care [address] [place] [address] PATIENT DISCHARGE INSTRUCTIONS Patient Information Name: NOBLE SANTIAGO Age: 37 Years Date of : 1985 Reason For Visit: Medical screening exam; ADULT SCHOOL PHYSICAL Arrival Time: 09/29/2022 10:32:28 Primary Care Physician: Ame Ortiz CNP Attending Physician: Abhi Finney PA-C Comment: Patient Education Medication Information: The exam and treatment you received today in the [facility] were for an urgent problem and are not intended as complete care. It is important for you to follow up with a doctor, nurse practitioner, or physician?s tax assistant for ongoing care. If your symptoms [...] so we can reach you if necessary. [facility] has provided you with a complete list of medications post discharge. Please inform your production sorter/provider of your visit and for further instruction [...] capsule) 1 cap(s) Oral every day. rizatriptan (Maxalt-SENIOR ANALYST 10 mg oral tablet, disintegrating) 1 tab(s) [...] Diagnosis: Diagnoses This Visit Medical screening exam ([id number]) If you received any narcotics, sedation, or [...] the Ans (more content not included)... Normal [facility]gent [facility] Note- Provideron 09-29-2022 Urgent Care [...] PO, q4hr, PRN: for headache, 0 Refill(s) Junel Fe 1.5/30 oral tablet: 1 tab(s), PO, Daily, 28 tab(s), 0 Refill(s) Maxalt-SENIOR ANALYST 10 mg oral tablet, disintegratin mg = [...] selected or recorded.. Surgical history: Diagnostic laparoscopy ([id number]) on 07/24/2019 at 34 Years. Tonsillectomy and adenoidectomy ([id number]). Lump ([id number]). Comments: 07/16/2019 11:30 Arabella Day RN left axilla Cholecystectomy ([id number]). Keloid of skin ([id number]). Comments: 07/16/2019 11:31 Arabella Day RN left ear Foot ([id number]). Comments: 07/16/2019 11:32 Arabella Day RN titanium implant left ankle Dilatation and curettage ([id number]). Tooth extraction, multiple ([id number]). Comments: 07/16/2019 11:33 Arabella Day RN wisdom Sinus ([id number]). Comments: 07/16/2019 11:33 Arabella Day RN x2 Colonoscopy ([id number]). Esophagogastroduodeno scopy ([id number]).. Family history: No family history items have been selected or recorded.. Social history: Social & Psychosocial Habits Alcohol 07/16/2019 Alcohol Use: Never Substance Abuse 07/16/2019 Substance use: Past Type: Marijuana Comment: at age 16 - 07/16/2019 11:47 - Arabella Penn RN Tobacco 07/16/2019 Smoking tobacco use: Never (less than 100 in l . Problem list: Active Problems (2) Hypoglycemia IBS (irritable bowel syndrome) . [Electronically Signed on: 09/29/2022 11:09 EST] Abhi Finney PA-C [Verified on: 09/29/2022 11:09 EST] Abhi Finney PA-C [facility] [place] 022 Urgent Care Record [facility] ? Urgent Care [address] [place] [address] PATIENT DISCHARGE INSTRUCTIONS Patient Information Name: NOBLE SANTIAGO Age: 37 Years Date of : 1985 Reason For Visit: Medical screening exam; ADULT SCHOOL PHYSICAL Arrival Time: 09/29/2022 10:32:28 Primary Care Physician: Ame Ortiz CNP Attending Physician: Abhi Finney PA-C Comment: Visit Diagnosis: Diagnoses This Visit Medical screening exam ([id number]) If you received any narcotics, sedation, or [...] and treatment you received today in the [facility] were for an urgent problem and are not intended as complete care. It is important for you to follow up with a doctor, nurse practitioner, or physician?s tax assistant for ongoing care. If your symptoms [...] so we can reach you if necessary. [facility] has provided you with a complete list of medications post discharge. Please inform your production sorter/provider of your visit and for further instruction [...] capsule) 1 cap(s) Oral every day. rizatriptan (Maxalt-SENIOR ANALYST 10 mg oral tablet, disintegrating) 1 tab(s) [...] Disease Control and Prevention July 2014 Normal [facility] T3, TOTAL (TRIIODOTHYRONINE) on 09-16-2022 T3, TOTAL 132 ng/dL Normal 71-180 [facility] Comment on above: Performed By: #### T 3TOTAL ####[facility] [address] [place], [place] [address]XgAnnalee Thayer CBC AUTO DIFFon 09-15-2022 BASO # 0.0 103/ul Normal 0.0-0.1 [facility] Comment on above: Performed By: #### C BC #### [facility] Laboratory [address] [place] [address] Dr. Phong Thayer Basophils/100 WBC (Bld) 0.3 % Normal 0.2-2.0 [facility] Comment on above: Performed By: #### C BC #### [facility] Laboratory [address] [place] [address] Dr. Phong Thayer EO # 0.1 103/ul Normal 0.0-0.7 [facility] Comment on above: Performed By: #### C BC #### [facility] [address] [place] [address] Dr. Phong Thayer Eosinophils/100 WBC (Bld) 0.8 % Critically low 0.9-7.0 [facility] Comment on above: Performed By: #### C BC #### [facility] [address] [place] [address] Dr. Phong Thayer Erythrocyte distribution width (RBC) [Ratio] 12.5 % Normal 11.0-15.0 [facility] Comment on above: Performed By: #### C BC #### [facility] [address] [place] [address] Dr. Phong Thayer Hematocrit (Bld) [Volume fraction] 42.2 % Normal 36.0-48.0 [facility] Comment on above: Performed By: #### C BC #### [facility] [address] [place] [address] Dr. Phong Thayer Hemoglobin (Bld) [Mass/Vol] 14.3 g/dL Normal 12.0-16.0 [facility] Comment on above: Performed By: #### C BC #### [facility] [address] [place] [address] Dr. Phong Thayer IG # 0.01 10e3/ul Normal 0.00-0.03 [facility] Comment on above: Performed By: #### C BC #### [facility] [address] [place] [address] Dr. Phong Thayer IG % 0.1 % Normal 0.0-0.5 [facility] Comment on above: Performed By: #### C BC #### [facility] Laboratory [address] [address] [address] Phong Thayer LYMPH # 2.5 103/ul Normal 1.2-3.8 [facility] Comment on above: Performed By: #### C BC #### [facility] [address] [place] [address] Dr. Phong Thayer Lymphocytes/100 WBC (Bld) 33.7 % Normal 20.5-60.0 [facility] Comment on above: Performed By: #### C BC #### [facility] [address] [place] [address] Dr. Phong Thayer MANUAL DIFF REQ NO Normal [facility] Comment on above: Performed By: #### C BC #### [facility] [address] [place] [address] Dr. Phong Thayer MCH (RBC) [Entitic mass] 29.1 pg Normal 26.7-34.0 [facility] Comment on above: Performed By: #### C BC #### [facility] [address] [place] [address] Dr. Phong Thayer MCHC (RBC) [Mass/Vol] 33.9 g/dL Normal 29.9-35.2 [facility] Comment on above: Performed By: #### C BC #### [facility] [address] [place] [address] Dr. Phong Thayer MCV (RBC) [Entitic vol] 85.9 fL Normal 81.0-99.0 [facility] Comment on above: Performed By: #### C BC #### [facility] [address] [place] [address] Dr. Phong Thayer MONO # 0.4 103/ul Normal 0.3-0.8 [facility] Comment on above: Performed By: #### C BC #### [facility] [address] [place] [address] Dr. Phong Thayer Monocytes/100 WBC (Bld) 5.3 % Normal 1.7-12.0 [facility] Comment on above: Performed By: #### C BC #### [facility] Laboratory [address] [place], [place] [id number] Dr. Phong Thayer NEUT # 4.5 103/ul Normal 1.4-6.5 [facility] Comment on above: Performed By: #### C BC #### [facility] [address] [place] [address] Dr. Phong Thayer Neutrophils/100 WBC (Bld) 59.8 % Normal 43.0-75.0 [facility] Comment on above: Performed By: #### C BC #### [facility] [address] [place] [address] Dr. Phong Thayer Platelet mean volume (Bld) [Entitic vol] 10.2 fL Normal 9.5-13.5 [facility] Comment on above: Performed By: #### C BC #### [facility] [address] [place] [address] Dr. Phong Thayer PLT 227 103/ul Normal 150-450 [facility] Comment on above: Performed By: #### C BC #### [facility] [address] [place] [address] Dr. Phong Thayer RBC 4.91 106/ul Normal 4.20-5.40 [facility] Comment on above: Performed By: #### C BC #### [facility] [address] [place] [address] Dr. Phong Thayer WBC 7.5 103/ul Normal 4.0-11.0 [facility] Comment on above: Performed By: #### C BC #### [facility] [address] [place] [address] Dr. Phong Thayer FREE THYROXINE INDEX T7on FTI 2.37 Normal 1.30-4.50 [facility] Comment on above: Performed By: #### T SH, T4, T7, CMP #### [facility] [address] [place] [address] Dr. Phong Thayer T3U 32.0 % Normal 30.0-39.0 [facility] Comment on above: Performed By: #### T SH, T4, T7, CMP #### [facility] [address] [place] [address] Dr. Phong Thayer LIPID PROFILEon 09-15-2022 CHOL-HDL RATIO NORM SEE BELOW Normal [facility] Comment on above: Result Comment: 3.3 - 4.4 LOW RISK 4.4 - 7.1 AVERAGE RISK 7.1 - 11.0 MODERATE RISK >11.0 HIGH RISK Performed By: #### L IPID ####[facility] [address] [place], [place] [address]Ks. Phong Thayer Cholesterol [Mass/Vol] 163 mg/dL Normal <=200 [facility] Comment on above: Performed By: #### L IPID ####[facility] [id number] [place] [id number] Thayer Cholesterol in HDL [Mass/Vol] 57 mg/dL Normal 40-60 [facility] Comment on above: Performed By: #### L IPID ####[facility] [id number] [place] [id number] Thayer Cholesterol in LDL [Mass/Vol] 69.8 mg/dL Normal [facility] Comment on above: Performed By: #### L IPID ####[facility] [address] [place], [place] [address]Ij. Phong Thayer Cholesterol.total/Ch olesterol in HDL [Mass ratio] 2.9 {ratio} Normal [facility] Comment on above: Performed By: #### L IPID ####[facility] [address] [place], [place] [address]Tg. Phong Thayer HDL NORMAL > or = 60 mg/dl - LO W CARDIOVASCULAR RISK <40 mg/dl - HIGH CARDIOVASCULAR RISK Normal [facility] Comment on above: Performed By: #### L IPID ####[facility] [address] [place], [place] [address]Br. Phong Thayer LDL CALC NORMAL SEE BELOW Normal [facility] Comment on above: Result Comment: <100 mg/dl OPTIMAL 100 - 129 mg/dl NEAR OR ABOVE OPTIMAL 130 - 159 mg/dl BORDERLINE HIGH 160 - 189 mg/dl HIGH >190 mg/dl VERY HIGH Performed By: #### L IPID ####[facility] [id number] [place] [id number]. Phong Thayer Triglyceride [Mass/Vol] 181 mg/dL Critically high <=150 [facility] Comment on above: Performed By: #### L IPID ####[facility] [address] [place] [id number]. Phong Thayer VLDL CALC 36.2 mg/dL Normal [facility] Comment on above: Performed By: #### L IPID ####[facility] [id number] [place] [id number]. Phong Thayer PROF 14(COMP METB)on 022 Albumin [Mass/Vol] 3.6 g/dL Normal 3.4-5.0 [facility] Comment on above: Performed By: #### T SH, T4, T7, CMP #### [facility] [address] [address] [address] Phong Thayer Albumin/Globulin [Mass ratio] 1.0 {ratio} Normal [facility] Comment on above: Performed By: #### T SH, T4, T7, CMP #### [facility] [address] [address] [address] Phong Thayer ALP [Catalytic activity/Vol] 90 U/L Normal 46-116 [facility] Comment on above: Performed By: #### T SH, T4, T7, CMP #### [facility] [address] [address] [address] Phong Thayer ALT [Catalytic activity/Vol] 27 U/L Normal 14-59 [facility] Comment on above: Performed By: #### T SH, T4, T7, CMP #### [facility] [address] [address] [address] Phong Thayer Anion gap [Moles/Vol] 14.2 mmol/L Normal [facility] Comment on above: Performed By: #### T SH, T4, T7, CMP #### [facility] [address] [address] [address] Phong Thayer AST [Catalytic activity/Vol] 13 U/L Critically low 15-37 [facility] Comment on above: Performed By: #### T SH, T4, T7, CMP #### [facility] [address] [place] [address] Dr. Phong Thayer Bilirubin [Mass/Vol] 0.2 mg/dL Normal 0.2-1.0 [facility] Comment on above: Performed By: #### T SH, T4, T7, CMP #### [facility] [address] [place] [address] Dr. Phong Thayer Calcium [Mass/Vol] 9.0 mg/dL Normal 8.5-10.1 [facility] Comment on above: Performed By: #### T SH, T4, T7, CMP #### [facility] [address] [place] [address] Dr. Phong Thayer Chloride [Moles/Vol] 103 mmol/L Normal 98-107 [facility] Comment on above: Performed By: #### T SH, T4, T7, CMP #### [facility] [address] [place] [address] Dr. Phong Thayer CO2 [Moles/Vol] 23.9 mmol/L Normal 21.0-32.0 [facility] Comment on above: Performed By: #### T SH, T4, T7, CMP #### [facility] [address] [place] [address] Dr. Phong Thayer Creatinine [Mass/Vol] 0.76 mg/dL Normal 0.55-1.02 [facility] Comment on above: Performed By: #### T SH, T4, T7, CMP #### [facility] [address] [place] [address] Dr. Phong Thayer EGFR-AF LATVIAN >60 Normal >=60 [facility] Comment on above: Performed By: #### T SH, T4, T7, CMP #### [facility] [address] [place] [address] Dr. Phong Thayer EGFR-NON AF LATVIAN >60 Normal >=60 [facility] Comment on above: Performed By: #### T SH, T4, T7, CMP #### [facility] [address] [place] [address] Dr. Phong Thayer Globulin (S) [Mass/Vol] 3.6 g/dL Normal [facility] Comment on above: Performed By: #### T SH, T4, T7, CMP #### [facility] [address] [address] [address] Phong Thayer Glucose [Mass/Vol] 95 mg/dL Normal 74-106 [facility] Comment on above: Performed By: #### T SH, T4, T7, CMP #### [facility] [address] [address] [address] Phong Thayer Potassium [Moles/Vol] 4.1 mmol/L Normal 3.5-5.1 [facility] Comment on above: Performed By: #### T SH, T4, T7, CMP #### [facility] [address] [place] [address] Dr. Phong Thayer Protein [Mass/Vol] 7.2 g/dL Normal 6.4-8.2 [facility] Comment on above: Performed By: #### T SH, T4, T7, CMP #### [facility] [address] [place] [address] Dr. Phong Thayer Sodium [Moles/Vol] 137 mmol/L Normal 136-145 [facility] Comment on above: Performed By: #### T SH, T4, T7, CMP #### [facility] [address] [place] [address] Dr. Phong Thayer Urea nitrogen [Mass/Vol] 13.0 mg/dL Normal 7.0-18.0 [facility] Comment on above: Performed By: #### T SH, T4, T7, CMP #### [facility] [address] [place] [address] Dr. Phong Thayer Urea nitrogen/Creatinine [Mass ratio] 17.1 mg/mg Normal [facility] Comment on above: Performed By: #### T SH, T4, T7, CMP #### [facility] [address] [place] [address] Dr. Phong Thayer T4on 09-15-2022 T4 [Mass/Vol] 7.40 ug/dL Normal 4.80-13.90 [facility] Comment on above: Performed By: #### T SH, T4, T7, CMP #### [facility] [address] [place], [place] [address] Dr. Phong Thayer TSHon 09-15-2022 TSH 2.515 uIU/mL Normal 0.358-3.740 [facility] Comment on above: Performed By: #### T SH, T4, T7, CMP #### [facility] [address] [id number] [address] Phong Thayer VITAMIN B12on 09-15-2022 Cobalamin (Vitamin B12) [Mass/Vol] 423.0 pg/mL Normal 193.0-986.0 [facility] Comment on above: Performed By: #### V GERALD VITB12 ####[facility] [address] [place] [address]DrAnnalee Thayer VITAMIN D 25 OHon 09-15-2022 VIT D 25-OH 28.3 ng/mL Normal [facility] Comment on above: Performed By: #### Kristine DUARTE, VITB12 ####[facility] [id number] [id number] Thayer VIT D RANGES SEE BELOW Normal [facility] Comment on above: Result Comment: <20 ng/mL Vit D deficient 20 - <30 ng/mL Vit D insufficient 30 - 100 ng/mL Vit D sufficient >100 ng/mL Potential Toxicity Performed By: #### V ITCLAIRE, [id number] ####[facility] [id number] [address]DrAnnalee Thayer A1C HEMOGLOBINon 09-02-2022 HbA1c (Bld) [Mass fraction] 5.1 % [email or web address] Other HbA1c (Bld) [Mass fraction]o n 09-02-2022 A1C HEMOGLOBIN [employer] [facility] [employer] Other Lab - Reference Lab Resultso n 07-19-2022 Lab - Reference Lab Results [id number] 0OTGTIFF Normal [facility] T-Spoton 07-16-2022 T-Spot See Report Normal [facility] Comment on above: Performed By: #### 5 [id number] ####[facility] (DEFAULT)[address] [place] [address] HBSab Qnt on 07-14-2022 Hep B Surf Ab Quant LC 301.3 mIU/mL Invalid Interpretation Code Immunity>9.9 [facility] Comment on above: Result Comment: Stat us of Immunity Anti-HBs Level Inconsistent with Immunity 0.0 - 9.9 Consistent with Immunity >9.9 Performed At: [address] [id number] Pancho Higgins PhD Ph:[phone] Performed By: #### 5 [id number] ####[facility] (DEFAULT)[address] [place] [address] Lab - Toxicology Resultson 0 07-14-2022 Lab - Toxicology Results [id number]#1.0 0OTGTIFF Normal [facility] Measles/Mumps/Rubella Immuni ty on 07-14-2022 Mumps Abs, IgG LC 38.4 AU/mL Invalid Interpretation Code Immune >10.9 [facility] Comment on above: Result Comment: Nega tive <9.0 Equivocal 9.0 - 10.9 Positive >10.9 A positive result generally indicates past exposure to Mumps virus or previous vaccination. Performed At: [address] [id number] Pancho Higgins PhD Ph:[phone] Performed By: #### 5 [id number] ####[facility] (DEFAULT)[address] [place] [address] Rubella Antibodies, IgG LC 5.78 index Invalid Interpretation Code Immune >0.99 [facility] Comment on above: Result Comment: Non- immune <0.90 Equivocal 0.90 - 0.99 Immune >0.99 Performed By: #### 5 [id number] ####[facility] (DEFAULT)[address] [place] [address] Rubeola Ab, IgG, EIA LC 72.4 AU/mL Invalid Interpretation Code Immune >16.4 [facility] Comment on above: Result Comment: Nega tive <13.5 Equivocal 13.5 - 16.4 Positive >16.4 Presence of antibodies to Rubeola is presumptive evidence of immunity except when acute infection is suspected. Performed By: #### 5 [id number], [id number], [id number] ####[facility] (DEFAULT)[address] [place] [address] Nicotine Metabolite, Urine L Con 07-14-2022 Cotinine LC Negative Invalid Interpretation Code Mjeond=034 [facility] Comment on above: Result Comment: Perf ormed At: [facility] [address] [place], [place] [id number] Mark Puentes PhD Ph:[phone] Performed By: #### 1 [id number] ####[facility] (DEFAULT)[address] [place] [address] XR FOOT AIDA MIN 3 VIEWSon XR [...] by: RAFAEL COATS Date: 2022-07-07 13:58 Normal [facility] Urine culture routineOrdered By: AME ORTIZ on 05-27-2022 Bacteria identified Cx Nom (U) Staphylococcus saprophyticus [facility] Urinalysis - AUTOMATEDon Appearance (U) clear [employer] Other Bilirubin Ql (U) Negative [employer] Other Color (U) lt. yellow [email or web address] Other Glucose Ql (U) Negative [employer] Other Hemoglobin Ql (U) moderate [employer] Other Ketones Ql (U) Negative [employer] Other Leukocyte esterase Test strip Ql (U) small [email or web address] Other Nitrite Ql (U) Negative [employer] Other pH (U) 6.0 [pH] [email or web address] Other Protein Ql (U) Negative [employer] Other Specific gravity (U) [Rel density] 1.010 [email or web address] Other Urobilinogen (U) [Mass/Vol] 0.2 mg/dL [email or web address] Other Urinalysis - AUTOMATED [email or web address] Other Urine Cultureon 05-24-2022 Bacteria identified Cx Nom (U) Reason for Exam Dysuria Urine ORGANISM: Staphylococcus saprophyticus (O:STASAP) [place] Count >100,000 Aerobic SAAD Charge (PC45) ---- [...] RESISTANT TO ALL B-LACTAM DRUGS. PERFORMED BY: [facility] [address] [id number] PATHOLOGIST CAR JOCKEY TABITHA KONG M.D. Normal [facility] Comment on above: Performed By: #### C UU #### [facility] [address] Bacteria identified Cx Nom (U) [email or web address] Other XR hand LT min 3V*on 021 XR hand LT min 3V* [facility] [employer] [facility] [employer] Other XR hand LT min 3V* [facility] [place] [employer] [facility] [employer] Other XR hand LT min 3V* [address] [facility] [email or web address] Other XR hand LT min 3V* [place] [address] [email or web address] Other XR hand LT min 3V* XRay Report [email or web address] Other XR hand LT min 3V* Signed [email or web address] Other XR hand LT min 3V* Patient: Noble Santiago MR#: [id number] [email or web address] Other XR hand LT min 3V* 7804 [email or web address] Other XR hand LT min 3V* : 1985 Acct:[id number] [email or web address] Other XR hand LT min 3V* Age/Sex: 36 / F ADM Date: 10/02/21 [email or web address] Other XR hand LT min 3V* Loc: XDUCLY Room: Type: REG CLI [email or web address] Other XR hand LT min 3V* Attending Dr: Sera ALFORD [email or web address] Other XR hand LT min 3V* Ordering Provider: PRASHANTH Jordan [email or web address] Other XR hand LT min 3V* Date of Service: 10/02/21 [email or web address] Other XR hand LT min 3V* XR/XR hand LT min 3V*: Finger pain, left [email or web address] Other XR hand LT min 3V* Copies to: PRASHANTH Jordan [email or web address] Other XR hand LT min 3V* 3 viewsLEFT hand plain film [email or web address] Other XR hand LT min 3V* COMPARISON:None N [facility] [employer] Other XR hand LT min 3V* HISTORY:LEFT hand injury [email or web address] Other XR hand LT min 3V* No fracture, dislocation or focal soft tissue abnormality seen. [email or web address] Other XR hand LT min 3V* XR/XR hand LT min 3V* [email or web address] Other XR hand LT min 3V* IMPRESSION:No acute findings [email or web address] Other XR hand LT min 3V* Impression dictated by: Fuad Swain M.D.10/02/2021 6:01 PM [email or web address] Other XR hand LT min 3V* Dictation Location: [facility]--03 [email or web address] Other XR hand LT min 3V* Transcribed By: PWS 10/02/21 1801 [email or web address] Other XR hand LT min 3V* Dictated By: Fuad Swain DO 10/02/21 1759 [email or web address] Other XR hand LT min 3V* Signed By: [email or web address] Other XR hand LT min 3V* 10/02/[address] [place] [address] [employer] Other Automated basophil %on 11-25 Basophils/100 WBC (Bld) 1.0 % [facility] Automated basophil counton 0 11-25-2020 Basophils (Bld) [#/Vol] 0.1 10*3/uL 0.0-0.2 [facility] Automated blood lymphocyte c ount (number/volume)on 11-25-2020 Lymphocytes (Bld) [#/Vol] 2.2 10*3/uL 1.00-4.8 [facility] Automated blood lymphocyte c ount as percentage of total leukocyteson 11-25-2020 Lymphocytes/100 WBC (Bld) 29.2 % [facility] Automated blood monocyte cou nton 11-25-2020 Monocytes (Bld) [#/Vol] 0.4 10*3/uL 0.0-0.8 [facility] Automated blood platelet cou nt (count/volume)on 11-25-2020 Platelets (Bld) [#/Vol] 247 10*3/uL 150-450 [facility] Automated blood platelet ton n volume measurementon 11-25-2020 Platelet mean volume (Bld) [Entitic vol] 8.8 fL 6.3-10.7 [facility] Automated eosinophil %on Eosinophils/100 WBC (Bld) 1.1 % [facility] Automated eosinophil counton 11-25-2020 Eosinophils (Bld) [#/Vol] 0.1 10*3/uL 0.0-0.45 [facility] Automated erythrocyte distri bution width ratioon 11-25-2020 Erythrocyte distribution width (RBC) [Ratio] 13.3 % 11.9-15.3 [facility] Automated erythrocyte mean c orpuscular hemoglobin (mass per erythrocyte)on 11-25-2020 MCH (RBC) [Entitic mass] 29.2 pg 24.7-34.3 [facility] Automated erythrocyte mean c orpuscular hemoglobin concentration measurement (mass/volon 11-25-2020 MCHC (RBC) [Mass/Vol] 33.6 g/dL 32.0-35.0 [facility] Automated erythrocyte mean c orpuscular volumeon 11-25-2020 MCV (RBC) [Entitic vol] 87.0 fL 80-100 [facility] Automated monocyte %on 11-25 Monocytes/100 WBC (Bld) 5.4 % [facility] Automated neutrophil %on Neutrophils/100 WBC (Bld) 63.3 % [facility] Blood erythrocytes automated count (number/volume)on 11-25-2020 RBC (Bld) [#/Vol] 4.64 10*6/uL 3.60-5.00 [facility] Blood hemoglobin measurement (mass/volume)on 11-25-2020 Hemoglobin (Bld) [Mass/Vol] 13.6 g/dL 11.8-15.4 [facility] Blood leukocytes automated c ount (number/volume)on 11-25-2020 WBC (Bld) [#/Vol] 7.7 10*3/uL 3.8-11.6 [facility] Blood neutrophil count by au tomated method (number/volume)on 11-25-2020 Neutrophils (Bld) [#/Vol] 4.9 10*3/uL 1.8-7.7 [facility] COVID-19 Positive/Negativeon 11-25-2020 COVID-19 Positive/Negative Negative Negative [facility] Comment on above: Testing for SARS-CoV -2 by RT-PCRThis test was developed and its performance characteristics determined by [employer] (BD) and validated at the [facility]. This test has not been [...] among non-blacks MDRD (S/P/Bld) [Vol rate/Area] mL/min/{1.73_m2} [facility] Hematocrit [Volume Fraction] of Blood by Automated counton 11-25-2020 Hematocrit (Bld) [Volume fraction] 40.4 % 34.0-46.4 [facility] Otheron 11-25-2020 Coronavirus 2019 PCR Interp N/A [facility] GFR/1.73 sq M.predicted MDRD (S/P/Bld) [Vol rate/Area] mL/min/{1.73_m2} [facility] Comment on above: GFR estimated refere nce range: According to KDOQI guidelines, <60 ml/min/1.73m2 is sufficient to diagnose a patient with chronic kidney disease. Nucleated RBC/100 WBC (Bld) [Ratio] 0.0 % 0-0.5 [facility] Creatinine Clearance (Chem N/A [facility] Serum or plasma calcium eleni urement (mass/volume)on 11-25-2020 Calcium [Mass/Vol] 9.3 mg/dL 8.2-10.2 [facility] Serum or plasma chloride ton surement (moles/volume)on 11-25-2020 Chloride [Moles/Vol] 104 mmol/L 95-114 [facility] Serum or plasma creatinine m easurement with calculation of estimated glomerular filtron 11-25-2020 Creatinine [Mass/Vol] 0.76 mg/dL 0.44-1.03 [facility] Serum or plasma glucose eleni urement (mass/volume)on 11-25-2020 Glucose [Mass/Vol] 96 mg/dL 70-100 [facility] Comment on above: ADA recommended refe rence rangeRandom Glucose Reference Range is dependent on time and content of last meal. Glucose of more than 200 mg/dL in a nonstressed, ambulatory subject supports the diagnosis of Diabetes Mellitus. Serum or plasma potassium me asurement (moles/volume)on 11-25-2020 Potassium [Moles/Vol] 4.1 mmol/L 3.5-5.1 [facility] Serum or plasma sodium measu rement (moles/volume)on 11-25-2020 Sodium [Moles/Vol] 138 mmol/L 136-146 [facility] Serum or plasma total carbon dioxide measurement (moles/volume)on 11-25-2020 CO2 [Moles/Vol] 24.6 mmol/L 22.0-30.0 [facility] Serum or plasma urea nitroge n measurement (mass/volume)on 11-25-2020 Urea nitrogen [Mass/Vol] 6 mg/dL 9-23 [facility] COVID-19 SOFIAon 10-27-2020 COVID-19 MINERVA Negative Negative [facility] Comment on above: This is a duplicate test result based off of the Minerva SARS Antigen (LIZ) test performed within the Microbiology department. Otheron 10-27-2020 SARS Antigen (LFIA) [facility] Albumin [Mass/volume] in Ser um or Plasmaon 09-12-2020 Albumin [Mass/Vol] 3.9 g/dL 3.2-5.5 [facility] Cholesterol [Mass/volume] in Serum or Plasmaon 09-12-2020 Cholesterol [Mass/Vol] 175 mg/dL 140-200 [facility] Comment on above: Chol less than 200 m g/dl low riskChol 201-239 mg/dl borderline riskChol 240 mg/dl and greater high risk Cholesterol in LDL [Mass/vol ume] in Serum or Plasma by calculationon 09-12-2020 Cholesterol in LDL [Mass/Vol] 74 mg/dL 0-100 [facility] Comment on above: LDL ATP III CLASSIFI CATIONLDL less than 100 mg/dL OptimalLDL 100-129 mg/dL Near or above optimalLDL 130-159 mg/dL Borderline highLDL 160-189 mg/dL HighLDL greater than 189 mg/dL Very high Cholesterol in VLDL [Mass/vo lume] in Serum or Plasma by calculationon 09-12-2020 Cholesterol in VLDL [Mass/Vol] 44 mg/dL [facility] Estimated glomerular filtrat ion rate (GFR) non- Americanon 09-12-2020 GFR/1.73 sq M predicted among non-blacks MDRD (S/P/Bld) [Vol rate/Area] mL/min/{1.73_m2} [facility] Metabolic Panelon 09-12-2020 Glucose [Mass/Vol] 81 mg/dL 70-100 [facility] Otheron 09-12-2020 GFR/1.73 sq M.predicted MDRD (S/P/Bld) [Vol rate/Area] mL/min/{1.73_m2} [facility] Comment on above: GFR estimated refere nce range: According to KDOQI guidelines, <60 ml/min/1.73m2 is sufficient to diagnose a patient with chronic kidney disease. Pharmacy Creatinine Clearance (Chem N/A [facility] Protein [Mass/volume] in Ser um or Plasmaon 09-12-2020 Protein [Mass/Vol] 6.5 g/dL 6.1-7.9 [facility] Serum globulin measurement b y calculation (mass/volume)on 09-12-2020 Globulin (S) [Mass/Vol] 2.6 g/dL [facility] Serum or plasma alanine rizvi otransferase measurement without P-5'-P (enzymatic activion 09-12-2020 ALT No additional P-5'-P [Catalytic activity/Vol] 22 U/L 10-60 [facility] Serum or plasma albumin/glob ulin mass ratioon 09-12-2020 Albumin/Globulin [Mass ratio] 1.5 {ratio} [facility] Serum or plasma alkaline katherine sphatase measurement (enzymatic activity/volume)on 09-12-2020 ALP [Catalytic activity/Vol] 76 U/L 32-92 [facility] Serum or plasma aspartate am inotransferase measurement (enzymatic activity/volume)on 09-12-2020 AST [Catalytic activity/Vol] 18 U/L 10-42 [facility] Serum or plasma calcium eleni urement (mass/volume)on 09-12-2020 Calcium [Mass/Vol] 9.3 mg/dL 8.2-10.2 [facility] Serum or plasma chloride ton surement (moles/volume)on 09-12-2020 Chloride [Moles/Vol] 101 mmol/L 95-114 [facility] Serum or plasma creatinine m easurement with calculation of estimated glomerular filtron 09-12-2020 Creatinine [Mass/Vol] 0.67 mg/dL 0.44-1.03 [facility] Serum or plasma high density lipoprotein (HDL) cholesterol measurementon 09-12-2020 Cholesterol in HDL [Mass/Vol] 57 mg/dL 35-85 [facility] Comment on above: HDL CHOL ATP-III CLA SSIFICATION Cardiovascular RiskHDL > or equal to 60 mg/dL LOWHDL < 40 mg/dL HIGH Serum or plasma potassium me asurement (moles/volume)on 09-12-2020 Potassium [Moles/Vol] 3.9 mmol/L 3.5-5.1 [facility] Serum or plasma sodium measu rement (moles/volume)on 09-12-2020 Sodium [Moles/Vol] 136 mmol/L 136-146 [facility] Serum or plasma total biliru bin measurement (mass/volume)on 09-12-2020 Bilirubin [Mass/Vol] 0.5 mg/dL 0.3-1.2 [facility] Serum or plasma total carbon dioxide measurement (moles/volume)on 09-12-2020 CO2 [Moles/Vol] 23.4 mmol/L 22.0-30.0 [facility] Serum or plasma total choles terol/high density lipoprotein (HDL) cholesterol mass yany 09-12-2020 Cholesterol.total/Ch olesterol in HDL [Mass ratio] 3.1 {ratio} [facility] Serum or plasma urea nitroge n measurement (mass/volume)on 09-12-2020 Urea nitrogen [Mass/Vol] 7 mg/dL 07-23 [facility] Triglyceride [Mass/volume] i n Serum or Plasmaon 09-12-2020 Triglyceride [Mass/Vol] 220 mg/dL 35-149 [facility] Comment on above: TRIG ATP III CLASSIF ICATIONTRIG less than 150 mg/dL NormalTRIG 150-199 mg/dL Borderline highTRIG 200-500 mg/dL High TRIG greater than 500 mg/dL Very highStandard traceable to the Center for Disease Conrtrol and Prevention (CDC) test method. Vital Signs Date Time Vital Sign Value Performing Clinician Facility 10-17-2023 16:30-0500 Body height 162.56 cm Ml Chisholm Other [email or web address] Other 10-17-2023 16:30-0500 Body mass index (BMI) [Ratio] 34.67 kg/m2 Ml Chisholm Other [email or web address] Other 10-17-2023 16:30-0500 Body weight 91.63 kg Ml Chisholm Other [email or web address] Other 10-17-2023 16:30-0500 Diastolic blood pressure 71 mm[Hg] Ml Chisholm Other [email or web address] Other 10-17-2023 16:30-0500 Respiratory rate 18 /min Ml Chisholm Other [email or web address] Other 10-17-2023 16:30-0500 SaO2% (BldA) [Mass fraction] 96 % Ml Chisholm Other [email or web address] Other 10-17-2023 16:30-0500 Systolic blood pressure 112 mm[Hg] Ml Chisholm Other [email or web address] Other 08-10-2023 11:55-0400 Body height 162.56 cm Sera Lares Other [email or web address] Other 08-10-2023 11:55-0400 Body mass index (BMI) [Ratio] 37.24 kg/m2 Sera Lares Other [email or web address] Other 08-10-2023 11:55-0400 Body temperature 97.7 [degF] Sera Lares Other [email or web address] Other 08-10-2023 11:55-0400 Body weight 98.43 kg Sera Lares Other [email or web address] Other 08-10-2023 11:55-0400 Respiratory rate 18 /min Sera Lares Other [email or web address] Other 08-10-2023 11:55-0400 SaO2% (BldA) [Mass fraction] 98 % Sera Lares Other [email or web address] Other 09-08-2022 10:30-0500 Body height 162.56 cm Marleni Jordan Other [email or web address] Other 09-08-2022 10:30-0500 Body mass index (BMI) [Ratio] 34.93 kg/m2 Marleni Missler Other [email or web address] Other 09-08-2022 10:30-0500 Body weight 92.31 kg Marleni Missler Other [email or web address] Other 09-08-2022 10:30-0500 Diastolic blood pressure 77 mm[Hg] Marleni Missler Other [email or web address] Other 09-08-2022 10:30-0500 Respiratory rate 18 /min Marleni Missler Other [email or web address] Other 09-08-2022 10:30-0500 SaO2% (BldA) [Mass fraction] 96 % Marleni Missler Other [email or web address] Other 09-08-2022 10:30-0500 Systolic blood pressure 117 mm[Hg] Marleni Missler Other [email or web address] Other 09-02-2022 15:00-0400 Body height 162.56 cm Ame Patelault Other [email or web address] Other 09-02-2022 15:00-0400 Body mass index (BMI) [Ratio] 34.5 kg/m2 Ame Nik Other [email or web address] Other 09-02-2022 15:00-0400 Body temperature 98.6 [degF] Ame Nik Other [email or web address] Other 09-02-2022 15:00-0400 Body weight 91.17 kg Ame Nik Other [email or web address] Other 09-02-2022 15:00-0400 Diastolic blood pressure 82 mm[Hg] Ame Nik Other [email or web address] Other 09-02-2022 15:00-0400 Respiratory rate 18 /min Ame Nik Other [email or web address] Other 09-02-2022 15:00-0400 SaO2% (BldA) [Mass fraction] 86 % Ame Ortiz Other [email or web address] Other 09-02-2022 15:00-0400 Systolic blood pressure 129 mm[Hg] Ame Ortiz Other [email or web address] Other 07-10-2022 12:10-0400 Body height 162.56 cm Ame Ortiz Other [email or web address] Other 07-10-2022 12:10-0400 Body mass index (BMI) [Ratio] 33.91 kg/m2 Ame Ortiz Other [email or web address] Other 07-10-2022 12:10-0400 Body temperature 98.6 [degF] Ame Ortiz Other [email or web address] Other 07-10-2022 12:10-0400 Body weight 89.63 kg Ame Ortiz Other [email or web address] Other 07-10-2022 12:10-0400 Diastolic blood pressure 81 mm[Hg] Ame Ortiz Other [email or web address] Other 07-10-2022 12:10-0400 Respiratory rate 18 /min Ame Ortiz Other [email or web address] Other 07-10-2022 12:10-0400 SaO2% (BldA) [Mass fraction] 98 % Ame Ortiz Other [email or web address] Other 07-10-2022 12:10-0400 Systolic blood pressure 132 mm[Hg] Ame Ortiz Other [email or web address] Other 05-24-2022 17:00-0400 Body height 162.56 cm Ame Ortiz Other [email or web address] Other 05-24-2022 17:00-0400 Body mass index (BMI) [Ratio] 34.67 kg/m2 Ame Ortiz Other [email or web address] Other 05-24-2022 17:00-0400 Body temperature 98 [degF] Ame Ortiz Other [email or web address] Other 05-24-2022 17:00-0400 Body weight 91.63 kg Ame Ortiz Other [email or web address] Other 05-24-2022 17:00-0400 Diastolic blood pressure 70 mm[Hg] Ame Ortiz Other [email or web address] Other 05-24-2022 17:00-0400 Respiratory rate 18 /min Ame Ortiz Other [email or web address] Other 05-24-2022 17:00-0400 SaO2% (BldA) [Mass fraction] 99 % Ame Ortiz Other [email or web address] Other 05-24-2022 17:00-0400 Systolic blood pressure 122 mm[Hg] Ame Ortiz Other [email or web address] Other 10-02-2021 18:20-0500 Body height 162.56 cm Sera Lares Other [email or web address] Other 10-02-2021 18:20-0500 Body mass index (BMI) [Ratio] 35.01 kg/m2 Sera Lares Other [email or web address] Other 10-02-2021 18:20-0500 Body temperature 98.2 [degF] Sera Lares Other [email or web address] Other 10-02-2021 18:20-0500 Body weight 92.53 kg Sera Lares Other [email or web address] Other 10-02-2021 18:20-0500 Diastolic blood pressure 81 mm[Hg] Sera Lares Other [email or web address] Other 10-02-2021 18:20-0500 Respiratory rate 18 /min Sera Lares Other [email or web address] Other 10-02-2021 18:20-0500 SaO2% (BldA) [Mass fraction] 99 % Sera Lares Other [email or web address] Other 10-02-2021 18:20-0500 Systolic blood pressure 118 mm[Hg] Sera Lares Other [email or web address] Other 08-22-2021 15:15-0400 Body height 162.56 cm Christiana Ginty Other [email or web address] Other 08-22-2021 15:15-0400 Body mass index (BMI) [Ratio] 34.33 kg/m2 Christiana Ginty Other [email or web address] Other 08-22-2021 15:15-0400 Body weight 90.72 kg Christiana Ginty Other [email or web address] Other Encounters Encounter Date Encounter Type Care Provider Facility Start: 11-16-2023 End: 11-16-2023 ambulatory CHELSEA Urias Available Start: 10-26-2023 End: 10-26-2023 ambulatory LUIS EDUARDO NARANJOO Not Available Start: 10-17-2023 End: 10-17-2023 ambulatory Ml Chisholm Other [email or web address] Other Start: 10-17-2023 Office outpatient visit 15 minutes Ml Chisholm [facility] Start: 08-10-2023 End: 08-10-2023 ambulatory Sera Smallwoodmond Other [email or web address] Other Start: 08-10-2023 Office outpatient visit 15 minutes Sera Luda [facility] Start: 04-16-2023 End: 04-17-2023 ambulatory Ame Ortiz Facility:[facility] Start: 02-02-2023 End: 02-03-2023 ambulatory AME ORTIZ Facility: Start: 01-26-2023 ambulatory AME ORTIZ Facil ity:[facility] Start: 01-17-2023 End: 01-18-2023 ambulatory AME ORTIZ Facility:[facility] Start: 01-17-2023 End: 01-17-2023 Lab Drop off AME ORTIZ [facility] Start: 12-16-2022 End: 12-16-2022 ambulatory Cong Cboian Facility:[facility] Start: 10-31-2022 End: 10-31-2022 ambulatory Alexis Lincoln Facility:[facility] Start: 10-31-2022 End: 10-31-2022 ambulatory PHYSICIAN NO [facility] Work Phone: Start: 10-31-2022 End: 10-31-2022 Patient encounter procedure PHYSICIAN NO [facility]-Self [facility] Exercise [facility] Start: 10-23-2022 End: 10-23-2022 ambulatory FARHEEN CAMACHO . Facility:[facility] Start: 10-13-2022 End: 10-13-2022 ambulatory Lambert Gavin Facility:[facility] Start: 10-13-2022 End: 10-13-2022 Patient encounter procedure PHYSICIAN NO [facility] [place] Work Phone: Start: 10-13-2022 Registered Recurring PHYSICIAN NO [facility] Work Phone: Start: 10-12-2022 End: 10-12-2022 ambulatory PHYSICIAN NO [facility] Work Phone: Start: 10-12-2022 End: 10-12-2022 Patient encounter procedure PHYSICIAN NO [facility] [place] Start: 10-11-2022 Registered Recurring PHYSICIAN NO NIT[facility] Start: 10-11-2022 End: 10-11-2022 ambulatory Marleni Jordan Other [email or web address] Other Start: 10-11-2022 Telephone encounter Marleni Jordan [facility] Start: 09-29-2022 End: 09-29-2022 ambulatory Abhi Finney Facility:[facility] Start: 09-15-2022 End: 09-16-[address] DOCTOR LANDEROS Facility: Start: 09-08-2022 End: 09-08-2022 ambulatory Marleni Jordan Other [email or web address] Other Start: 09-08-2022 Nutrition therapy Marleni Jordan [facility] Start: 09-02-2022 End: 09-02-2022 ambulatory Ame Ortiz Other [email or web address] Other Start: 09-02-2022 Office outpatient visit 15 minutes Ame Ortiz [facility] Start: 08-02-2022 End: 08-02-2022 ambulatory Debra Celestin Other [email or web address] Other Start: 08-02-2022 Telephone encounter Debra Celestin [facility] Start: 07-14-2022 End: 07-14-2022 ambulatory Ame Nik Facility:[facility] Start: 07-10-2022 End: 07-10-2022 ambulatory Amepatrick Ortiz Other [email or web address] Other Start: 07-10-2022 Office outpatient visit 15 minutes Mae Nik [facility] Start: 07-07-2022 End: 07-08-[address] CONOR BEAL Facility: Start: 06-26-2022 End: 06-26-2022 ambulatory Amepatrick Ortiz Other [email or web address] Other Start: 06-26-2022 Telephone encounter Ame Breaul t [facility] Start: 05-24-2022 End: 05-24-2022 Departed Referred CONTINUOUS IMPROVEMENT COORDINATOR-C Ame Nik Work Phone: [facility] [place] Start: 05-24-2022 End: 05-24-2022 ambulatory Ame Patelault [email or web address] Other Start: 05-24-2022 Office outpatient visit 15 minutes Ame Nik [facility] Start: 05-19-2022 End: 05-19-2022 ambulatory Ame Nik Other [email or web address] Other Start: 05-19-2022 Telephone encounter Ame Breaul t [facility] Start: 05-11-2022 ambulatory BRITNISHREE GRANT Facilit y:[email or web address] Start: 12-11-2021 End: 12-11-2021 ambulatory Ame Nik Other [email or web address] Other Start: 12-11-2021 Telephone encounter Ame Breaul t [facility] Start: 10-02-2021 End: 10-02-2021 ambulatory Sear Lares Other [email or web address] Other Start: 10-02-2021 Office outpatient visit 15 minutes Sera Lares [facility] Start: 08-22-2021 End: 08-22-2021 ambulatory Christiana Martel Other [email or web address] Other Start: 08-22-2021 Office outpatient visit 15 minutes Christiana Martel [facility] Start: 11-25-2020 End: 11-25-2020 Patient encounter procedure Kit Reyes ([facility]) -Pre-Surgical Testing Start: 10-27-2020 End: 10-27-2020 Patient encounter procedure Kit Reyes ([facility]) -[place] COVID Testing Start: 09-12-2020 End: 09-12-2020 Departed Referred Kit Reyes ([facility]) -[facility] [address] Procedures Date Procedure Procedure Detail Performing Clinician Start: 10-13-2022 MRI of head PHYSICIAN NO FAMILY Start: 10-27-2020 SARS Antigen (LFIA) Nirmal sydney Reyes ([facility]) Cholecystectomy AME HI Dilation and curettage NAA ORTIZ Nasal sinus structur e (body structure) AME ORTIZ Tonsillectomy AME LEE Urine culture CONTINUOUS IMPROVEMENT COORDINATOR-C Sil Ortiz Work Phone: wisdom teeth AME WARNER LT Immunizations Immunization Date Immunization Notes Care Provider Nitza kumar 11-22-2021 COVID-19 Vaccine Moderna - Documentation Purposes Only Ame Ortiz Other [email or web address] Other Payers Date Payer Category Payer Private Health Insurance 2022 Unknown 2022 Self-pay [id number] 1985 Unknown [id number] 2.16.8 [id number] 1985 Unknown [id number] 2.16.84 0.1.314918.3.579.2.593 1986 Unknown [id number] 2.16.84 0.1.984289.3.579.2.593 1986 Unknown [id number] 2.16.84 0.1.617251.3.579.2.593 1986 Unknown [id number] 2.16.84 0.1.271185.3.579.2.593 1986 Unknown [id number] 2.16.84 0.1.317329.3.579.2.593 1986 Unknown [id number] 2.16.84 0.1.270435.3.579.2.593 1986 Unknown [id number] 2.16.84 0.1.173680.3.579.2.593 1986 Unknown [id number] 2.16.8 40.1.669854.3.579.2.718 1986 Unknown [id number] 2.16.84 0.1.963502.3.579.2.718 1985 Unknown [id number] 2.16.84 0.1.332159.3.579.2.1259 1985 Unknown [id number] 2.16.840 .1.726662.3.579.2.1259 1959 Private Health Insurance [id number] Private Health Insurance [id number] [id number] Unknown [id number] Unknown [id number] Unknown [id number] Social History Date Type Detail Facility Start: 06-28-2019 End: 11-25-2020 Tobacco smoking status NHIS Never smoked tobacco (finding) [facility] Start: 1985 Sex Assigned At Female F [facility] Sex Assigned At [facility] Tobacco smoking status Never [facility] Medical Equipment Procedure Code Equipment Code Equipment [...] while sleeping. questions and concerns were addressed [email or web address] Other 10-11-2023 Evaluation note* Encounter Date Diagnosis [...] no improvement in 2 to 3 days [email or web address] Other 03-20-2023 Evaluation + Plan note Diagnostic Tests Pending * FSH and LH 01/17/[address] [facility]02-16-2023 NotePatient Education Materials Follows: Otitis Media, Adult [...] Follow these instructions at home: ? Take pcfr-ith-shpbuem and prescription medicines only as told by [...] provider. Document Revised: 01/25/2022 Document Reviewed: 01/25/2022 [employer] Patient Education ? 2021 [employer] [id number] Note Patient Education Materials Follows:Uk [id number] Evaluation note * Encounter Date Diagnosis Assessment [...] medication before and did have stomach upset [email or web address] Other 11-03-2022 Evaluation note* Encounter Date Diagnosis Assessment Notes Treatment Notes Treatment Clinical Notes Aug, Dizziness (ICD-10 - R42) Aug, History of reactive hypoglycemia (ICD-10 - Z86.39) Start with keeping journal of symptoms. Take blood sugars when you experience symptoms. [email or web address] Other 09-10-2022 Evaluation note* Encounter Date Diagnosis Assessment Notes Treatment Notes Treatment Clinical Notes Jul, Intractable migraine without aura and without status migrainosus (ICD-10 - G43.019) Take medication as directed. Stay away from known triggers. Follow up with primary care provider or neurology if symptoms persist. Phenergan and Toradol Im given in office. Explained medication will cause drowsiness. [email or web address] Other 08-27-2022 Evaluation note* Encounter Date Diagnosis Assessment Notes Treatment Notes Treatment Clinical Notes May, Migraine aura without headache (ICD-10 - G43.109) [email or web address] Other 07-25-2022 Evaluation note* Encounter Date Diagnosis [...] (ICD-10 - G43.109) Continue medication as needed [email or web address] Other 12-03-2021 Evaluation note* Encounter Date Diagnosis [...] no improvement in 5 to 7 days [email or web address] Other 10-23-2021 Evaluation note* Encounter Date Diagnosis [...] Patient care instructions given in writting by [facility] At Home document [email or web address] Other Evaluation noteNo InformationNort [employer] Other Evaluation noteNo assessment information available [facility] Work Phone: Hisvnxm general Narrative - Reported* Type Description Date Medical History bipolar depression Medical History hx stomach ulcers Medical History migraine headaches Surgical History T&A 1997 Surgical History [place] Teeth 2005 Surgical History Keloid Scar from [...] Surgical History hysterectomy Hospitalization History See Above [email or web address] Other Hisqhfn general Narrative - Reported* Type Description Date Medical History bipolar depression Medical History hx stomach ulcers Medical History migraine headaches Medical History IBS Medical History chronic depression Medical History anxiety Medical History Gestational diabetes - yes Medical History PCOS Medical History Esophageal reflux Medical History fatigue Medical History lactose intolerance Medical History obesity Surgical History T&A 1997 Surgical History [place] Teeth 2005 Surgical History Keloid Scar from [...] reconstruction 2 021 Hospitalization History See Above [email or web address] Other Hislxll general Narrative - Reported* Type Description Date Medical History bipolar depression Medical History hx stomach ulcers Medical History migraine headaches Medical History IBS Medical History chronic depression Medical History anxiety Medical History Gestational diabetes - yes Medical History PCOS Medical History Esophageal reflux Medical History fatigue Medical History lactose intolerance Medical History obesity Surgical History T&A 1998 Surgical History [place] Teeth 2005 Surgical History Keloid Scar from ear 2006 Surgical History Lap Saima 2008 Surgical History D&C 2012 Surgical History Mass removed from left breast 2 014 Surgical History sinus surgery x 2 Surgical History colonoscopy 04/18 Surgical History laproscopy and uterine ablation 07/19 Surgical History left side achiles tendon cut wi th implant Surgical History hysterectomy Surgical History Left flat foot reconstruction 2 021 Hospitalization History See Above [email or web address] Other Hospital course Narrative No data available for this section [facility] No data available for this section [facility] No data available for this section [facility] Advance Directives No Advanced Directives Records Found Advance Directive Response Recorded Date/ Time Advance Directives No April 08 0 6:58am Advance Directive Response Recorded Date/ Time Advance Directives No April 08 0 7:58am Chief Complaint and Reason for Visit Chief [facility] Dysmenorrhea,Dyspareunia,Abnormal Uterine Bleeding Chief Complaint Dysuria R30.0 Chief Complaint Obesity R27.0 Chief Complaint Obesity R27.0 exercise Assessments No Assessments Information Available Family History No Family History Records Found Relationship Condition Age at Onset Recorded Date/T nahid Not Specified Malignant neoplasm of lung Unknown Myocardial infarction Unknown father Chronic obstructive pulmonary disease Unk nown Hypertension Unknown Depression Unknown sister Hypothyroidism Unknown Summary Purpose Additional Source Comments REASON FOR VISIT (unrecogniz ed section and content) #18 SILVER VAN, COUGH, BLOOD IN MUCUS, CHILLSINJURY LEFT INDEX FINGERNo InformationNo InformationFOLLOW UP MEDICATIONclinicalDARK BARBOUR [facility], N/V, H/AWMN ReferralISSUES OF DIZZINESS CHECK UPInitial WMNHM exercise with [place] EAR INFECTIONEAR INFECTION LEFT EAR Care Teams (unrecognized sec tion and content) Team Status: Inactive Member Role Status KRISTIN Foster Attending Provider Active PHYSICIAN NO FAMILY Primary Care Provider Active Team Status: Active Member Role Status Dates PHYSICIAN NO FAMILY Primary Care Provider Active Team Status: Inactive Member Role Status Herson Gavin DO Attending Provider Active KRISTIN Mercedes [...] Team Status: Inactive Member Role Status Dates Ame Nik , CONTINUOUS IMPROVEMENT COORDINATOR-C Primary Care Provider Active Lambert Gavin DO Attending Provider Active Goals (unrecognized section and content) Goals may be documented in a n alternate section INFORMATION SOURCE (unrecogn ized section and content) DATE CREATED AUTHOR 12/17/2022 [facility] DATE CREATED AUTHOR AUTHOR'S ORGANIZ ATION 01/22/2023 [facility] DATE CREATED AUTHOR AUTHOR'S ORGANIZ ATION 02/12/2023 [facility] DATE CREATED AUTHOR AUTHOR'S ORGANIZ ATION [facility]2023 [facility] DATE CREATED AUTHOR AUTHOR'S ORGANIZ ATION 11/17/2023 [facility] FOR RECORDS PERTAINING TO PATIENTS WHO ARE [...] BE BASED ON THE PRIMARY CLINICAL RECORDS. [facility] [employer] [facility]. provides no warranty or guarantee of the accuracy or completeness of information in this document.
--- NOTE | 2023-11-28 09:58 | PM.PRESUREVA ---
History of Present Illness History of Present Illness Chief complaint: primary osteoarthritis right ankle and foot, varus Narrative: Patient presents for preadmission testing. The patient reports chronic right foot and ankle pain. She states she had two prior surgeries on her right foot in the past and continues to have significant right ankle and foot pain. The patient states she has lateral pain which is constant, worse with ambulation and long periods of standing, better with meloxicam. She denies numbness, tingling, weakness, or any other complaints. Review of Systems ROS Narrative REVIEW OF SYSTEMS: Negative except as stated in HPI, ten or more systems reviewed. Constitutional: No fever , chills, weakness ENT: No sore throat or epistaxis Cardiovascular: No edema, chest pain, palpitations, or activity intolerance Respiratory: No shortness of breath, cough, or wheezing Gastrointestinal: No abdominal pain, constipation, diarrhea, or vomiting Genitourinary: No dysuria or hematuria Neurological: No numbness, tingling, weakness, or headache Psychiatric: No mood changes [facility] Medical History (Updated 11/28/23 @ 09:36 by Tina Chen NP) Stress incontinence ?N39.3 - Stress incontinence (female) (male) (ICD-10) Hallux valgus ?M20.10 - Hallux valgus (acquired), unspecified foot (ICD-10) Strain of right peroneal muscle or tendon ?S86.311A - Strain of muscle(s) and tendon(s) of peroneal muscle group at lower leg level, right leg, initial encounter (ICD-10) 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 - Congenital deformity of feet, unspecified, unspecified foot (ICD-10) 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 - Other congenital varus deformities of feet, unspecified foot (ICD-10) Equinus contracture of right ankle ?M24.571 - Contracture, right ankle (ICD-10) Osteoarthritis of right ankle and foot ?M19.071 - Primary osteoarthritis, right ankle and foot (ICD-10) Eversion deformity of right foot ?M21.071 - Valgus deformity, not elsewhere classified, right ankle (ICD-10) Posterior tibial tendon dysfunction ?M76.829 - Posterior tibial tendinitis, unspecified leg (ICD-10) Insomnia ?G47.00 - Insomnia, unspecified (ICD-10) Depression ?F32.A - Depression, unspecified (ICD-10) Anxiety ?F41.9 - Anxiety disorder, unspecified (ICD-10) COVID-19 ?U07.1 - COVID-19 (ICD-10) Migraine ?G43.909 - Migraine, unspecified, not intractable, without status migrainosus (ICD-10) Kidney stones ?N20.0 - Calculus of kidney (ICD-10) Seasonal allergies ?J30.2 - Other seasonal allergic rhinitis (ICD-10) Heartburn ?R12 - Heartburn (ICD-10) IBS (irritable bowel syndrome) ?K58.9 - Irritable bowel syndrome without diarrhea (ICD-10) Encounter for removal of skin lesion ?L98.9 - Disorder of the skin and subcutaneous tissue, unspecified (ICD-10) Surgical History (Updated 11/28/23 @ 09:29 by Tina Chen NP) History of wisdom tooth extraction ?K08.409 - Partial loss of teeth, unspecified cause, unspecified class (ICD-10) History of colonoscopy ?Z98.890 - Other specified postprocedural states (ICD-10) History of esophagogastroduodenoscopy (EGD) ?Z98.890 - Other specified postprocedural states (ICD-10) H/O sinus surgery ?Z98.890 - Other specified postprocedural states (ICD-10) History of nasal septoplasty ?Z98.890 - Other specified postprocedural states (ICD-10) H/O lumpectomy ?Z98.890 - Other specified postprocedural states (ICD-10) History of endometrial ablation ?Z98.890 - Other specified postprocedural states (ICD-10) History of dilation and curettage ?Z98.890 - Other specified postprocedural states (ICD-10) History of cholecystectomy ?Z90.49 - Acquired absence of other specified parts of digestive tract (ICD-10) History of tonsillectomy ?Z90.89 - Acquired absence of other organs (ICD-10) History of hysterectomy ?Z90.710 - Acquired absence of both cervix and uterus (ICD-10) History of foot surgery (2019) ?Z98.890 - Other specified postprocedural states (ICD-10) History of foot surgery (03/02/21) ?Z98.890 - Other specified postprocedural states (ICD-10) Family History (Updated 11/28/23 @ 09:29 by Tina Chen NP) Other Family history of cervical cancer Family history of diabetes mellitus Family history of hypertension Family history of lung cancer Family history of myocardial infarction Family history of ovarian cancer Social History (Updated 11/28/23 @ 09:20 by Tina Chen NP) Within the past year, how often did you have a drink containing alcohol: never Score interpretation: A score less than 3 is consistent with normal alcohol consumption. 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 @ [employer] Highest level of school completed/degree received: Associate degree: occupational, technical, vocational program Meds Home Medications and Allergies Home Medications Medication Instructions Recorded Confirmed Type Lactobacillus acidophilus 100 mmu cells PO DAILY 11/28/23 11/28/23 History (Acidophilus capsule) cariprazine 3 mg capsule (Vraylar) 3 mg PO DAILY 11/28/23 11/28/23 History cetirizine 10 mg tablet 10 mg PO DAILY PRN allergy symptoms 11/28/23 11/28/23 History lamotrigine 100 mg tablet 100 mg PO DAILY 11/28/23 11/28/23 History meloxicam 15 mg tablet 15 mg PO DAILY 11/28/23 11/28/23 History propranolol 160 mg capsule,24 160 mg PO Q24H 11/28/23 11/28/23 History hr,extended release rizatriptan 10 mg tablet 10 mg PO DAILY PRN migraine 11/28/23 11/28/23 History headache sertraline 100 mg tablet 100 mg PO BID 11/28/23 11/28/23 History trazodone 50 mg tablet 100 mg PO QPM PRN sleep 11/28/23 11/28/23 History Allergies Allergy/AdvReac Type Severity Reaction Status Date / Time adhesive tape Allergy Severe Verified 11/28/23 09:14 povidone-iodine Allergy Rash Verified 11/28/23 09:14 [From Betadine] codeine AdvReac Vomiting Verified 11/28/23 09:14 Exam Narrative Exam Narrative: Constitutional: Awake, alert, comfortable, well-appearing, nontoxic, interactive, vital signs as charted Head: Normocephalic, atraumatic Neck: Supple, normal appearance, normal range of motion, no meningeal signs, no lymphadenopathy Respiratory: No respiratory distress, breath sounds clear Cardiovascular: Regular rate and rhythm, strong and regular heart tones Musculoskeletal: Diffuse right lateral ankle tenderness with palpation, limited range of motion due to pain, good capillary refill, sensation intact Skin: No rashes or induration, no lesions, only visible skin inspected Neuro: No neurological deficits, normal sensation Psychiatric: Oriented ?3, normal affect Assessment and Plan Assessment and Plan (1) Hallux valgus: (2) Strain of right peroneal muscle or tendon: (3) Congenital deformity of feet: (4) Varus deformity of foot: (5) Equinus contracture of right ankle: (6) Osteoarthritis of right ankle and foot: (7) Eversion deformity of right foot: (8) Posterior tibial tendon dysfunction: Plan Right STJ fusion, excision of tarsal coalition, osteotomies, bone graft, soft tissue balancing, peroneal tendon repair, stress exam, lateral ankle stabilization, posterior tibial tendon debridement versus repair scheduled with Dr. Guerra 12/08/2023.
== END 2023-11-28 09:01 | disposition home or self-care (01) ==
LOC: PST 09:01
PROVIDERS: PCP Nurse Practitioner Family; Visit Provider Podiatrist Foot & Ankle Surgery
DX: Z01.818 Encounter for other preprocedural examination (principal); M19.071 Primary osteoarthritis, right ankle and foot; M21.171 Varus deformity, not elsewhere classified, right ankle
CPT/HCPCS: G0463

== ENCOUNTER 2023-12-08 06:19 | Day surgery (SDC) | payer OTHER, SELFPAY ==
[2023-11-28 09:51] VITALS: BP 112/79; PULSE 68; RESP 20; TEMP 36.2; O2SAT 97; BMI 36.3
[2023-12-08] VITALS (11 sets, daily range): BP systolic 95–150; BP diastolic 57–88; PULSE 80–95; RESP 10–18; TEMP 36.1–36.8; O2SAT 91–97; BMI 39.0
--- NOTE | 2023-12-08 | FL_ITS ---
[place] [id number] Patient Name: NOBLE CASTILLO MRN: [facility]:[id number] date: 1985 Sex: F Assigned Patient Location: [place] Current Patient Location: Accession/Order Number: [id number] Exam Date: 12/08/2023 08:30 Report Date: 12/12/2023 09:20 At the request of: FABIENNE WALL Procedure: FL fluoroscopy <1hr NON-READ EXAM: FL fluoroscopy <1hr NON-READ HISTORY: TECHNIQUE: FINDINGS: Please see Operative Report. Electronically authenticated by: RADIOLOGIST NO Date: 12/12/2023 09:20
--- OUTSIDE RECORDS SUMMARY | 2023-12-08 06:21 | XMS_ITS | CCD ---
Author Name Unknown Address [facility] [place] [address] Organization [facility] Care Team Providers Care Hand Carver Name Role Phone Eric ([facility])Kit Attending Provider Dewayne James Attending Provider [phone] Ame Ortiz Primary Care Provider [phone] Costa Armando Attending Provider Christiana Martel Unavailable Sera Lares Unavailable Ame Ortiz Unavailable KRISTIN Ortiz Attending Provider NO FAMILY, PHYSICIAN Primary Care Provider Unava ilable Debra Celestin Unavailable Marleni Jordan Unavailable NO FAMILY, PHYSICIAN Primary Care Provider Unava ilable KRISTIN Ortiz Attending Provider DO Lambert Gavin Attending Provider [phone] KRISTIN Ortiz Primary Care Provider NO FAMILY, PHYSICIAN Primary Care Provider Unava ilable KRISTIN Ortiz Attending Provider KRISTIN Ortiz Primary Care Provider DO aLmbert Gavin Attending Provider [phone] MD Alexis Lincoln Attending Provider [phone] Ame Ortiz Attending Unavailable Ame Ortiz Admitting [...] [Adhesive tape] Allergy to substance 4 Rash/itching [facility] (4 sources) paper tape Allergy to substance 1 Rash/itching [facility] (16 sources) Codeine; 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: [codeine] Drug Allergy Unknown (qualifier value) [facility] (13 sources) Povidone-Iodine ; 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: [povidone iodine topical] Drug Allergy Unknown (qualifier value) [facility] (13 sources) bandaids Propensity to adverse reactions rash [facility] [employer] Other (13 sources) Polyester Propensity to adverse reactions rash [facility] [employer] Other (5 sources) Povidone-Iodine ; 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: [Betadine] Drug Allergy 2 itchy rash [facility] Repository (2 sources) Adhesive bandage; 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: [Adhesive Bandage] Drug allergy Unknown (qualifier value) [facility] (2 sources) Codeine Drug Allergy 2 Repository (1 source) Adhesive Tape; 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: [Tape] Propensity to adverse reactions to drug (disorder) [facility] Repository Medications Current Medications Medication Drug Class(es) [...] 25, 2020 12:00am take 1 capsule by ri ut every twenty-four hours Vraylar 4.5 MG [...] 1 tablet Orally Once a day Active Lngmjwpnbn-Tjvlxas-Lojjgddvk in (Folinic-Plus) 4-50-2 mg tablet (4 sources) Start: 11-25-2020 take 1 tablet by mouth once daily Shebacesmk-Mwliste-Kdmralzjjom (Folinic-Plus) 4-50-2 mg tablet Active 1 TAB PO Daily November 25, 2020 10:32am Start: 11-25-2020 take 1 tablet by jerri th once daily Qqeolgfodf-Ejrgwau-Wxkilteslvt (Folinic- Plus) 4-50-2 mg tablet Active 1 TAB PO Daily November 25, 2020 12:00am Start: 11-25-2020 take 1 tablet by [facility] once daily Pjzqjrhoxc-Txfpkft-Nsjanyailci (Folinic- Plus) 4-50-2 mg tablet Active 1 [...] 30 gram, Refill(s) 0, [facility] [address] [facility]. Start Date: 06/28/19 Status: Ordered Biloxi-3 (1 source) Start: 04-16-2019 Biloxi-3 Oral, Daily, Refill(s) 0, Prophylaxis Start Date: 04/16/19 Status: Ordered Biloxi-3 Fatty Acids (Fish Oil Concentrate) 1,000 mg Capsule (4 sources) Start: 11-25-2020 take 1 capsule by mouth once daily Biloxi-3 Fatty Acids (Fish Oil Concentrate) 1,000 mg Capsule Active 1000 MG PO Daily November 25, 2020 10:35am Start: 11-25-2020 take 1 capsule by [facility] once daily Biloxi-3 Fatty Acids (Fish Oil Concentrate) 1,000 mg Capsule Active 1000 MG PO Daily November 25, 2020 12:00am Start: 11-25-2020 take 1 capsule by [facility] once daily Biloxi-3 Fatty Acids (Fish Oil Concentrate) 1,000 mg [...] Drug Class(es) Dates Sig (Normalized) Sig (Original) [id number] actuat albuterol 0.09 mg/actuat metered dose [...] Resolved: 08-22-2021 Episodic Other aftercare (1 source) intermediate designer (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; 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: [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 USE OF ASPIRIN] Onset: 10-26-2022 Episodic Other aftercare (1 source) Other intermediate designer (current) drug therapy; 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: [OTH 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 CURRENT DRUG THERAPY] Onset: 10-26-2022 Episodic Other [...] 04-19-2023 Cotinine LC Negative Invalid Interpretation Code Hnwqmg=069 [facility] Comment on above: Result Comment: Perf ormed At: [facility] [place] [address] [place], [place] [phone] Mark Puentes PhD Ph:[phone] Performed By: #### 1 [id number] ####[facility] (DEFAULT)[address] [place] [address] Lab - Toxicology Resultson 0 04-18-2023 Lab - Toxicology Results [id number]. [id number] [facility] CT ANKLE RT WO CONon 023 [...] technique. FINDINGS: BONES: Joint space narrowing with kary-nf-oxal articulation involving the medial aspect of the talocalcaneal joint. SOFT TISSUES: Negative. No visible soft tissue swelling. EFFUSION: None visible. OTHER: Negative. IMPRESSION: 1. Pes planus. 2. Plot-gu-moeg articulation between the articular surfaces of the medial talocalcaneal joint. 3. Uniform, normal spacing of the tibiotalar joint. Electronically authenticated by: RAFAEL COATS Date: 2023-02-02 09:25 Normal Coding Summary.on 01-21-2023 Coding Summary. CD:[id number] W w+PGhlYWQ+ZO2GDRJfF79 qfQIjlC1fQ9YSFFvFQmzy QXSZQNqHVeRrpeOhXZ2rh XNjZXJu IC8+KC4pYELpLmpffTEad 0E3aKQ6W47umc7zDGzfrI B2UQYzDoLiinwxq4gyiIa 6IDcuNmluOyBt FJOezV55CBV3fQ05Ai20x MMjrAFyu1oeoDj4SfMpNP ItMIV7rXquPRmgw4KvWQX dL59fnYAnm5Q8 XSNnkIrxkUWnMgGpiFN8d Y9aLWhxjgaez7ctckflBu x7fg45qEVwx2I7mLJ2O3Y dnbB6VAHsfLUg SdufbQTDiI1iqvyua8pnb kprNcUdDJStQKu7WUw8AR StvHxpGuWaGJ65OVI3IEJ xmbMpK7PqIXSd uUtvHbI3p9U3Eo2PK1NFA wyhK1LJEHBCGVquxCW+PC 74sk38W7IsMzctCkh0ZBU vGOZ6kRK9bW7g YABzJSkxi6K0jNG5I5Neu xGbpu5hf7rsLMUaUFuaL7 2nuJUji1I2BBObwCK8WFQ gkGvwSkObhL41 Oyc+UXLypCokq1LeKqwve 4lfi1orzPq3XjpcVVDkln YggCdbTAK6f9IdRg9oLFM yjFL6nMU7jU6i HtIlEyZ5PAgzV275ZeBib VDbKwcqG99nL0MrzDI+PH CqKdt5RCDfzQxoSG9hO2H hZGRpbmctbGVm oYneWA8rSBJyddfsMWUyf Q2zTBJfP3r7JeQvHtZ5VH ejY8IiISBicqldWu19mC1 zUrNrGdQ8RNqj Z4DtxuP8HWIemYPnHDrwT NF3J33ob0W1GKTaAZYrIY V0mSS0rM8osThgmpzgtBR mdDsgdmVydGlj MUnrSTmqP662IEWdfUwgS kNvZGluZyBEYXRlOiAgMD MvMjQvMjAyMzwvdGQ+PHR mEEU4zXdwMUTd gPFfBKamHo4nnYcztLguA C7tMJDgkrppOHCiaO9wFS XmuWQsmQaoXZ2kZQBvnci sz120JtGbDCP2 DNKzdHPrB6MwbW7eAlLaD TGrEXJnP5McmVSdAQyxO9 90AMowUiD4EZWbnvMbS7V sLWFsaWduOiB0 o4W8Ad6If4AojaifA0Wdr MVfWoVrDllySJm5U2IfQs wvdHI+NB24MLZhSB51JPy 2GDJ7gEqgAMdy YAYaK2HkoO3oYxKsZUAsH GRkOyc+PHRhYmxlIHdpZH RoPScxMDAlJyBzdHlsZT0 eWi1lZTMsFQTs gHpluYHmHfYqn7zzCSDhC QrvFW0tuVmrB5VcoWO8RM Rex4p4Dz54Y88hF7ExyEA +XRLyqUH5qJK4 gB5qPiUxFlS2ODwuO144Z cDqgXAdZdiwf3teb0jhaC x6GzU0RBQshpUzuAfxDMO 2t2VdVg51E11k IHdpZHRoPSIxNSUiIHZhb Jeuan3jnB2jZh9+PGNvbC E1sRR5aM0cDaPaUlY0EQx sR184CoNoqSNa Zhdwj9bbi0rmaGg5CsPaG UGlpfMbgOkrOXN0d9AcGg 02F6PcaKhov3XzBtu2ep6 0fSGrg5M6oOI3 K1FhLEElbqardKAlnPkpM Y3vAIMfsasaJCVlfC7mFB QbV5n8PjXiQhO2GLvxE6U zzyZ9UUIrqDVz DORdiOQVaI4xxfybj1xzt ghaCzKxXAJbIWe5MAv3UU LtnYczXpTvUXK4RiW3QRP 5oGRwfG9qsOdf gbmwuY8aTyq+DTJ3eMNky IRNDX4fYyhzzFC+PHRkIH W0wCybOWphPWJbeD4pUZP wY4h4DaWoOtA8 YIheY1IwvnX7RXRipFQyA JDbfOGIfV8jzrcsw9utqv tcMeDdKYCpHIv0ANt7NBQ saWduOiBsZWZ0 FfP3XNC7yWKliD1bdDehz eiubH9zIxk+QmlydGggRG S6IRy7D8UkDnb1WHWscJf eQK7fmJVyUZrl Eq4amFssoTriIN1tUWZdj ceti039EhSpp6yaKOHmnR WsHZhnNZP9G38ns8Z4OHO nMSDvMQG9gFD7 mY2dyIjuevcqqIYqkXvbf hDooZudUYxgBEekD431HE MneXruPnDnHGb5O2NuSug 9UEBbxDryGM6q eQIhPKlnAp5amToepLmrJ Z4pAGTnycwlm713YgQmn0 zqKAGelAWxCHneWND2L69 ke3A4ZULlEYDi GJE6vZB7oV0zyBzbidgzn GVmdDsgdmVydGljYWwtYW llJ777WFFfqKdtDlIxfPv 8F8JdOnr3NPWq lCczFL6puRUuALsdYg4vd MneoZlhLM1uVAExsepzu8 39BdSxf8nuXAEhmOHiAJv aGUQ0Q25wu5E9 OHEtJBUaDXL9eTQ1zL6qv GlnbjogbGVmdDsgdmVydG xvKZnzNStzK203CFUrwAp nPlBhdGllbnQg DEplSTl8L8SrEwazmJB+P I63VKKmZP88mQXxiSLja6 ksnRh4XcYiXJUnMCJ7aPl kAWskr8SnUUFn I30aaVMvg8O5PLTfmWmuw NYoTrMnhZN1wH9kKZribp woj2ktwuxhJxfzf1iuuq3 9nV52R40gQXvm ZHRoPSIzMCUiIHZhbGlnb x8wtH1ePa5+ZBJhzIL9pZ Q3wL6tMNFeKyQ8ODhjM54 9InRvcCIvPjxj u6clz2bfjSj0DgG0KZSup nLlnOtzGEL4u5RlJy33W0 9sIHdpZHRoPSIyMCUiIHZ xiDugrs8dqK9o Ii8+ACTzrSS1sDG3hF3uG tHaBrE6GJkwG198IrDsqG WeLrpiD61bD1WnvVV+PHR pWtd5RTZnjCsi NJ0bnDVdGNfiFu1mZWZ6Q fTnRmYtDIufK5UzOFIldk joovsfjJX7GCGrZWRxeM1 7Vm2aqEybEACg eNTUjF3nbpswi6mdavhqY xJxTXHlYCo7UUo3COCnaH quRiNiEMB9OoR1LKN2tLA vhN5rdQoqralm pE8xV4TvRADanhaeEx91h U1wHsEqGcE4XVpjXoh+GUERRERO 4SKkomYGySGFTUPY7TUY7 4JH14hUJye9C0 jQH4L4TuGLLybcvtenjbg MR3UXFnPXBhpN41oBFsJD keBe6bg0R2e179KNCeKGU wpA81Xe1qkMyk LMKrfTBTuK2hwyxxj4tuw gznBbDyPIGwFFg1MCo3QY NzjVzwLjZiRXQ2BdW5XEE 6mGVimM8ttJxz croaxT3gZhl+MDYvMDUvM Vp1AsjvmNV+ACBpZCW6nK ehFWkgNARhsU7cILUkO1n 0TlTxXdW0ZLcp F6BaZYOkmmzfHc35lN9kQ pJdGvT8EXrnE0EbyjM9VH DxaEOwTTyuCUX3W16zh5N 1CBGgRTMiKGP5 cNX3nH9ntPibeolcuQBns DsgdmVydGljYWwtYWxpZ2 00MWXujCqwYiI6QRmtLIU xPR65CR59hIYq x3Z2cGP6P7TzNDZgytsoz ktpaSN1KHGjYFHxvC29tZ NuIOygGk3ty6Y6n415CRM bBJOxxX14Fx1c uXxoKMWfuJEGjC4qnfrcj 0uhbnkgPfLcAUNrFFc8MI w8PHJqxKuaWaExFKP3PtZ 2XUB1jSDmbG4v yWdmvdtofO3bTau+RmVtY PdmOJ87FX16vABcc9R3pX O0J8LqMJSugwmcumwrcHF 8IBZwLWUhpX52 jZAzHThfNn7ia7B1z921W BIyQSUvrD60Ad4szQbbQX UnuIVVqX7xrzshf3tdxgn gIzAwMDAwMDt0 UOy4PIIwyStcJuWjGCP2X wQ9HGZ2aEPziB4epCbvdv pugI9qLts+RLNuATYzk7H ga1ZqXV46QJ83 B1TqFpzicCNfxDI+PHRhY mxlIHdpZHRoPScxMDAlJy PmdLigFV0vYn0yAOUwSBM vbGxhcHNlOiBj r0dwAJPwMIxePQ2qgWgvG 0CvzFU6ZFTsp2u7Kv19R2 0eP8BkeSE+KUDpdVU2qQR 2cE4tSrGrAyZ2 YDxyJ639ZxKqkDYgWmvvv 0vqz0cexAk9TqPmTAWbry XobTohGDD4h8WjLe02Q10 sIHdpZHRoPSIy KTAqVZFkxNmzyt7ekS3mL i8+BYNsbGH9aWZ7iY7sQn KmByH8PPnzD142OeWjtOL oIkqrG77sC1Bu dXA+ILByIia2IDVvpZwqU G2bzHNqYAkcIa3wDIY6Vc MgQhLrYDjmI1RhMXZrmzv kxgejeTJ9RTNb BDDqmA13Jp4zfUnmQq5lF VYwCJJ3XDHqiOUdI2JvoD 7lJlOdLHLiCTSoF7IrgKU hDKhyY985XQuq KeX6IIMyprWbQ4WtOXUfc ChzKkH6i9Y1If2ZwLqsmK KdYM0kHvWxPUx6C5CiIne 7QFOcbEtlOW2x gEXpYImlSl8jwViarSebD E7jDLMwdgqyr469GaCgm1 ppSFLyxBSlIBchVAD2F44 hb7A0OMXzYYUk FMD7jIH2gQ6xfKtrnzcpm GVmdDsgdmVydGljYWwtYW dmC012NGVaaZldRsJPUig 0W0ObZle3YAMg fGmgKJ9efPJyLWtbYq2xg QwkhNwyHS5wEMRadtyhm0 42GuAuw1oqIAPwiMCtHXb qGHM8S83sz9W2 ETZbGDJeOSI8zEC6xX4kc GlnbjogbGVmdDsgdmVydG wrPQpdVGekO612MUTlwNs nZi3DJls4W0Yl Art5HNBspEnpDY8jzPGqK LjtLi8vyWvdwDrzKC9oBY Krnbukz586RsUon3cuMWN wcHQgVGltZXM7 Z47yv1U4XHLyCQQlATL5s UZ4aS5stGklkehwgVWsaU trtjJrtTztRPlsSQfzT61 6IHRvcDsnPlBh eWVyOjwvdGQ+MX57fq13G 5RhYdkbRnd3WDNlQII0fZ X3eV0nLBUhZEdni6E4dDL 4I1IatxDqrx8a d2shOHHe (more content not included)... Normal [facility] 01-19-2023 Follitropin Qn 4.6 m[IU]/mL Invalid Interpretation Code [facility] Comment on above: Result Comment: Adul t Female: Follicular phase 3.5 - 12.5 Ovulation phase 4.7 - 21.5 Luteal phase 1.7 - 7.7 Postmenopausal 25.8 - 134.8 Performed at: [address] [id number] PhD Pancho Higgins Performed By: #### 1 [id number], 43867699, 5796487, 3331025, 9344639, 045197601, 5185429, 1624266, 0687776, 45183556 ####[facility] [address] [place] [address] Lutropin Qn 12.1 m[IU]/mL Invalid Interpretation Code [facility] Comment on above: Result Comment: Adul t Female: Follicular phase 2.4 - 12.6 Ovulation phase 14.0 - 95.6 Luteal phase 1.0 - 11.4 Postmenopausal 7.7 - 58.5 Performed By: #### 1 [id number], 29396425, 5308160, 0172339, 1191743, 063538476, 8886191, 3394789, 0247698, 27386133 ####[facility] [address] [place] [address] Auto DiffOrdered By: SYSTEM SYSTEM on 01-17-2023 Basophils/100 WBC (Bld) 0.5 % Normal 0.0-2.0 [facility] Comment on above: Order Comment: Order Added by Discern Expert. Performed By: #### 1 6386912, 80924050, 1077240, 3952389, 7559627, 365280716, 5422999, 1156688, 2118918, 82206523 #### [facility] [address] [place] [address] Basophils/Leukocytes Auto (Bld) [Pure # fraction] 0.1 E9/L Normal 0.0-0.2 [facility] Comment on above: Order Comment: Order Added by Discern Expert. Performed By: #### 1 0508161, 06031960, 6127568, 5170017, 2389017, 122773361, 9057612, 6203577, 4508417, 61548370 #### [facility] [address] [place] [address] Eosinophils/100 WBC (Bld) 0.5 % Normal 0.0-8.0 [facility] Comment on above: Order Comment: Order Added by Discern Expert. Performed By: #### 1 8420040, 39996917, 8417323, 5995992, 7173815, 062002985, 1593229, 0962852, 2180955, 71396270 #### [facility] [address] [place] [address] Eosinophils/Leukocyt es Auto (Bld) [Pure # fraction] 0.1 E9/L Normal 0.0-0.5 [facility] Comment on above: Order Comment: Order Added by Discern Expert. Performed By: #### 1 3646027, 61989357, 9097844, 2515663, 0906624, 231788987, 9668561, 9720542, 7951070, 58319292 #### [facility] [address] [place] [address] Lymphocytes/100 WBC (Bld) 24.6 % Normal 14.0-50.0 [facility] Comment on above: Order Comment: Order Added by Discern Expert. Performed By: #### 1 9498422, 06415482, 0977864, 9218265, 1621553, 205729673, 1096889, 3919858, 6793402, 86402423 #### [facility] [address] [place] [address] Lymphocytes/Leukocyt es Auto (Bld) [Pure # fraction] 3.6 E9/L Normal 1.0-4.0 [facility] Comment on above: Order Comment: Order Added by Discern Expert. Performed By: #### 1 5961851, 55669320, 5009409, 2398160, 9879600, 253574179, 5094659, 6192709, 0624718, 60180684 #### [facility] [address] [place] [address] Monocytes/100 WBC (Bld) 6.6 % Normal 4.0-14.0 [facility] Comment on above: Order Comment: Order Added by Discern Expert. Performed By: #### 1 9670937, 50957816, 0862839, 1547927, 5866297, 463539916, 3986139, 7930376, 3021743, 69262380 #### [facility] [address] [place] [address] Monocytes/Leukocytes Auto (Bld) [Pure # fraction] 1.0 E9/L Normal 0.2-1.0 [facility] Comment on above: Order Comment: Order Added by Discern Expert. Performed By: #### 1 3421313, 12485334, 4579380, 9935548, 8148805, 612864694, 2597957, 0634741, 2765146, 17020041 #### [facility] [address] [place] [address] Neutrophils/100 WBC (Bld) 67.8 % Normal 36.0-75.0 [employer] [facility] Comment on above: Order Comment: Order Added by Discern Expert. Performed By: #### 1 9681860, 17543880, 9177330, 9843781, 1396446, 192876476, 1002557, 9503472, 2564011, 23990624 #### [facility] [address] [place] [address] Neutrophils/Leukocyt es Auto (Bld) [Pure # fraction] 10.0 E9/L High 2.0-7.5 [employer] [facility] Comment on above: Order Comment: Order Added by Discern Expert. Performed By: #### 1 2278971, 88921813, 0534329, 2557838, 2394818, 060995699, 5063154, 4352768, 8583679, 35302848 #### [facility] [address] [place] [address] CBC w/ Auto DiffOrdered By: Jojo Mueller on 01-17-2023 Erythrocyte distribution width (RBC) [Ratio] 13.8 % Normal 10.9-14.2 [employer] [facility] Comment on above: Performed By: #### 1 6124888, 80404543, 7092033, 7758057, 5303990, 148914499, 2546174, 7199334, 4829804, 53670768 #### [facility] [address] [place] [address] Hematocrit (Bld) [Volume fraction] 46.0 % Normal 34.0-46.0 [employer] [facility] S Comment on above: Performed By: #### 1 9565316, 77523252, 6658723, 7221720, 3620902, 937524263, 9575870, 7836054, 8967317, 16560318 #### [facility] [address] [place] [address] Hemoglobin (Bld) [Mass/Vol] 14.9 g/dL Normal 12.0-16.0 [employer] [facility] Comment on above: Performed By: #### 1 7834766, 72555257, 1413510, 1736699, 9039116, 277964601, 5832655, 9134104, 2748811, 67122295 #### [facility] [address] [place] [address] MCH (RBC) [Entitic mass] 28.1 pg Normal 27.0-34.0 [employer] [facility] Comment on above: Performed By: #### 1 8711950, 94295493, 1631332, 5851414, 0299391, 407760095, 4818928, 8881003, 5255478, 65690424 #### [facility] [address] [place] [address] MCHC (RBC) [Mass/Vol] 32.4 g/dL Normal 31.4-36.0 [employer] [facility] Comment on above: Performed By: #### 1 9745645, 68351598, 3179186, 9726524, 0191147, 497968094, 2683560, 0315968, 3026208, 92116857 #### [facility] [address] [place] [address] MCV (RBC) [Entitic vol] 86.6 fL Normal 80.0-100.0 [employer] [facility] Comment on above: Performed By: #### 1 7898029, 04631225, 0184447, 4951447, 8098095, 917702472, 5488683, 4687777, 1980708, 64784822 #### [facility] [address] [place] [address] Platelet mean volume (Bld) [Entitic vol] 9.5 fL Normal 6.4-10.8 [facility] Comment on above: Performed By: #### 1 3223702, 01863969, 9452133, 2624745, 7421922, 677474255, 5537866, 8165811, 1408522, 20067681 #### [facility] [address] [place] [address] Platelets (Bld) [#/Vol] 298.0 E9/L Normal 150.0-500.0 [facility] Comment on above: Performed By: #### 1 8174767, 57409652, 4619305, 4064808, 5812626, 154086346, 4177639, 2302682, 6294437, 09590491 #### [facility] [address] [place] [address] RBC (Bld) [#/Vol] 5.3 E12/L Normal 4.3-5.9 [employer] [facility] Comment on above: Performed By: #### 1 8644971, 20260939, 2446724, 8799098, 0763630, 975397349, 6204282, 1992070, 0492306, 40048520 #### [facility] [address] [place] [address] WBC corrected for nucl RBC Auto (Bld) [#/Vol] 14.8 E9/L High 4.0-11.0 [facility] Comment on above: Performed By: #### 1 1147369, 32788875, 1911620, 8225397, 1872357, 536315862, 9855406, 1680331, 7747638, 94813246 #### [facility] [address] [place] [address] CHEMISTRYOrdered By: SYSTEM SYSTEM on 01-17-2023 Albumin/Globulin [...] 01-17-2023 Albumin [Mass/Vol] 4.3 g/dL Normal 3.3-5.0 [employer] [facility] R emisol Comment on above: Performed By: #### 1 2712750, 80998779, 3241725, 6470504, 9092892, 410346133, 6545892, 6272691, 5671498, 15903078 #### [facility] [address] [place] [address] Anion gap [Moles/Vol] 12 mmol/L Normal 6-16 [facility] Comment on above: Performed By: #### 1 8383491, 70671618, 0598609, 3790568, 8196440, 666771166, 6046872, 5547089, 4485723, 34858100 #### [facility] [address] [place] [address] Bilirubin [Mass/Vol] 0.6 mg/dL Normal 0.0-1.1 [facility] Comment on above: Performed By: #### 1 3838072, 62593005, 8239113, 9823553, 0875915, 019959331, 9589263, 6735065, 8295613, 31977360 #### [facility] [address] [place] [address] Calcium [Mass/Vol] 9.6 mg/dL Normal 8.9-11.1 [employer] R emisol Comment on above: Performed By: #### 1 [id number], 26079105, 3668937, 2830267, 5069294, 247894398, 6326628, 4454673, 6253568, 95441419 #### [facility] [address] [place] [address] Chloride [Moles/Vol] 101 mmol/L Normal 101-111 [facility] Comment on above: Performed By: #### 1 6588517, 34813441, 0110027, 4053752, 5155407, 232710853, 9131748, 1326348, 2473594, 16915367 #### [facility] [address] [place] [address] CO2 [Moles/Vol] 25 mmol/L Normal 21-31 [facility] bobbi Comment on above: Performed By: #### 1 4313592, 00266996, 0206631, 6459134, 1022566, 863492633, 4591038, 6750339, 4747092, 16711662 #### [facility] [address] [place] [address] Creatinine [Mass/Vol] 0.7 mg/dL Normal 0.5-1.3 [facility] Comment on above: Performed By: #### 1 1879278, 82954966, 7569770, 1435790, 0698981, 984731871, 8476699, 9390699, 9891603, 50795906 #### [facility] [address] [place] [address] Globulin (S) [Mass/Vol] 3.1 g/dL Normal 1.4-4.0 [facility] Comment on above: Performed By: #### 1 5424944, 68145285, 8279609, 4183027, 4700125, 185409954, 3322382, 8891117, 5800119, 68870182 #### [facility] [address] [place] [address] Glucose [Mass/Vol] 82 mg/dL Normal 55-199 [employer] R emisol Comment on above: Result Comment: If t his glucose result represents a fasting glucose, interpretation should refer to the following reference range: 55-99 mg/dL Performed By: #### 1 6889470, 60797644, 7458900, 3323129, 0666349, 363961133, 7511144, 9731873, 0193220, 70063008 #### [facility] [address] [place] [address] Potassium [Moles/Vol] 4.3 mmol/L Normal 3.5-5.3 [employer] Remisol Comment on above: Performed By: #### 1 8177007, 88114572, 1022779, 7704779, 2748997, 800598394, 8740502, 7511482, 0781700, 80305711 #### [facility] [address] [place] [address] Protein [Mass/Vol] 7.4 g/dL Normal 6.0-7.8 [employer] R emisol Comment on above: Performed By: #### 1 7172849, 04678799, 3392505, 6967015, 3563208, 931413826, 7754077, 6514550, 1656732, 68585929 #### [facility] [address] [place] [address] Sodium [Moles/Vol] 134 mmol/L Low 135-145 [facility] R emisol Comment on above: Performed By: #### 1 2307343, 55885891, 1385558, 3299811, 4512944, 499280565, 8488409, 2592819, 7365420, 72231135 #### [facility] [address] [place] [address] Urea nitrogen [Mass/Vol] 10 mg/dL Normal 5-21 [facility] Remisol Comment on above: Performed By: #### 1 4566576, 75664664, 8286485, 9172360, 8450490, 705061768, 5611508, 7629193, 4655406, 78975411 #### [facility] [address] [place] [address] CMPon 01-17-2023 Albumin/Globulin (S) [Mass conc ratio] 1.4 Normal 1.1-2.2 [facility] Comment on above: Performed By: #### 1 2254406, 32835983, 7819424, 6613308, 0714597, 131473957, 6313814, 6800040, 9910730, 32074375 #### [facility] [address] [place] [address] ALP [Catalytic activity/Vol] 84 Int._Unit/L Normal 21-98 [facility] Comment on above: Performed By: #### 1 5201354, 71979296, 2311605, 8077339, 1751319, 362359379, 7624931, 3039004, 8734482, 12616828 #### [facility] [address] [place] [address] ALT No additional P-5'-P [Catalytic activity/Vol] 20 Int._Unit/L Normal 6-46 [facility] Comment on above: Performed By: #### 1 0824128, 35537887, 8675252, 3424939, 5498165, 416376214, 3696653, 6381140, 5016447, 39733762 #### [facility] [address] [place] [address] AST [Catalytic activity/Vol] 15 Int._Unit/L Normal 5-43 [facility] Comment on above: Performed By: #### 1 5480239, 44508768, 5008218, 0254607, 5278718, 746940696, 8046686, 2211221, 3439385, 82089201 #### [facility] [address] [place] [address] Urea nitrogen/Creatinine [Mass ratio] 14 No Units Normal 10-20 [facility] Comment on above: Performed By: #### 1 3770816, 68312470, 1271809, 7903463, 8189832, 064098723, 5269571, 9189054, 0958638, 25716320 #### [facility] [address] [place] [address] Free G8Cxhnszz By: SYSTEM [employer] on 01-17-2023 Free T4 [Mass/Vol] 1.02 ng/dL Normal 0.58-1.64 [employer] R emisol Comment on above: Performed By: #### 1 6838264, 77562194, 3358820, 0322285, 5196831, 517808140, 2781654, 3325782, 6538768, 69871074 #### [facility] [address] [place] [address] Lipid PanelOrdered By: [employer] on 01-17-2023 Cholesterol [Mass/Vol] 171 mg/dL Normal 120-200 [facility] Remisol Comment on above: Performed By: #### 1 [id number], 91320742, 3155026, 8053252, 5997460, 580771344, 9073178, 4181859, 9831484, 23379086 #### [facility] [address] [place] [address] Cholesterol in HDL [Mass/Vol] 60 mg/dL Invalid Interpretation Code [facility] Comment on above: Result Comment: HDL > or equal to 60 mg/dL: Low cardiovascular risk HDL < 40 mg/dL : High cardiovascular risk Performed By: #### 1 7772507, 05545078, 5600765, 7281999, 2817548, 845929808, 2512923, 6763569, 1790990, 22850654 #### [facility] [address] [place] [address] Cholesterol in LDL [Mass/Vol] 52 mg/dL Normal <=129 [facility] Remisol Comment on above: Performed By: #### 1 2020725, 43794709, 3021590, 2113352, 7949370, 589019241, 5229691, 5003727, 7377713, 60447767 #### [facility] [address] [place] [address] Cholesterol in VLDL [Mass/Vol] 63 mg/dL High 7-40 [facility] Comment on above: Performed By: #### 1 9778743, 99484296, 7385569, 6611352, 9052214, 990164640, 8249723, 3512082, 8649785, 64551948 #### [facility] [address] [place] [address] Triglyceride [Mass/Vol] 316 mg/dL High <=149 [facility] Comment on above: Performed By: #### 1 6127032, 71451191, 8843825, 3896018, 5401444, 715408935, 1830447, 9556196, 5317787, 07031051 #### [facility] [address] [place] [address] Physician Orderon 01-17-2023 Physician Order [id number]# 1.00CD:127 Normal [facility] T4 & TSHon 01-17-2023 T4 [Mass/Vol] 10.0 microgram/dL High 4.6-9.1 [facility] Comment on above: Performed By: #### 1 1303223, 59829880, 3931779, 9234435, 8575131, 156987594, 1819890, 8256282, 8442644, 29565194 #### [facility] [address] [place] [address] T4 & TSHOrdered By: SYSTEM S YSTEM on 01-17-2023 TSH Qn 3.76 m[IU]/L Normal 0.34-5.60 [facility] Comment on above: Performed By: #### 1 3287991, 59747812, 4490296, 7712812, 8121809, 411225725, 8839906, 5770835, 8885608, 94301962 #### [facility] [address] [place] [address] Vit V80Fbuccha By: SYSTEM [employer] STEM on 01-17-2023 Cobalamin (Vitamin B12) [Mass/Vol] 272 pg/mL Normal 50-1500 [facility] Remisol Comment on above: Performed By: #### 1 8311156, 10218887, 6073798, 1936354, 4367695, 855441807, 3008027, 9631783, 9965079, 77873121 #### [facility] [address] [place] [address] Vitamin D 25 HydroxyOrdered By: SYSTEM SYSTEM on 01-17-2023 25-hydroxyvitamin D3 [Mass/Vol] 30.1 ng/mL Normal 30.0-100.0 [facility] Remisol Comment on above: Result Comment: Vit rizvi D deficiency has been defined as a level of serum 25-OH vitamin D less than 20 ng/mL (1,2) by the Harmans of Medicine and an Endocrine Society practice guideline. The Endocrine Society further defined vitamin D insufficiency as a level between 21 and 29 ng/mL (2). 1. IOM (Harmans of Medicine). 2010. Dietary reference intakes for calcium and D. [place]: The National Academies Press. 2. Jacquie MF, Hemanth NC, Barby INGRAM, et al. Evaluation, treatment, and prevention of vitamin D deficiency: an Endocrine Society clinical practice guideline. JCEM. 2010; 96 (7):1911-30. Performed By: #### 1 6402679, 08221379, 0483568, 7242253, 6296996, 317252020, 1375720, 5044108, 3819890, 53556504 ####[facility] [address] [place] [address] eGFRon 01-17-2023 GFR/1.73 sq M.predicted among blacks MDRD (S/P/Bld) [Vol rate/Area] mL/min/{1.73_m2} Normal >=59 [facility] Comment on above: Order Comment: Order added by Discern Expert. Result Comment: eGFR is race adjusted. AA=. Performed By: #### 1 6860961, 93954581, 2842841, 0211440, 8714677, 003030349, 1900226, 0689645, 5157541, 99137240 #### [facility] [address] [place] [address] GFR/1.73 sq M.predicted among non-blacks MDRD (S/P/Bld) [Vol rate/Area] mL/min/{1.73_m2} Normal >=59 [facility] Comment on above: Order Comment: Order added by Discern Expert. Result Comment: Biometric Technician hunter kidney disease could be indicated at eGFR's of less than 60 mL/min/1.73m2. Kidney failure is indicated at less than 15 mL/min/1.73m2. Performed By: #### 1 6961490, 92100721, 9315666, 4788597, 7514235, 719826155, 2514749, 1845108, 7391393, 39492793 #### [facility] [address] [place] [address] Coding Summaryon 12-21-2022 Coding Summary HTMLBase 64 GreapliuADn3hEo+PGhlY WQ+AS4IPQKzR41zoILpwZ 3CM2hMGS4GNHDWFWYXGG9 RJX8uqGJ8VHszN2BthlLv YtecsTJrAV92RHt9PWI0i BroFQakiY9pgGAlT8n2Ll UrZU56eO90FKreOWTuObY 3LjZpbjsgbWFy Q4dgHwImeBAnCjb+PHRhY mxlIHdpZHRoPScxMDAlJy MuaWucDD8qCl6xXYUkEEJ vbGxhcHNlOiBj l4qoUWTkXRazFD0znKdvU 8YqjDT0VOSdi9x7Uf98yW I+ZYAgTZD1sXezSNpml72 6KfCpd4hrXKT0 uMBjMGkrUWY9K31xj9N1I JZfWOTxPBR5kJU9tF6qkV cyaoaoS8YeqBBnUgO5CTS 6nUEhvL5vkPgp lweynZ5dTyy+D95YDY8ZB UYMCD8LFxh2O5UoMrrznO I+GX38OMLnHX79oHQknOF bv4brvMm1RbGd BOUjLPV4yTthWThje8FoP ZZlB02uqINuz7W7RWOvlI zmkSLwCjFlrTP4nN9tVVl qsileb6sbhumo Ppmea3oidt11oW67A26wS IcsPJNjRLV9XSSaYGPquU cldn4aaA4pHm9+SAyiy1t ft2eyoIr5LqDn KROcbkVfgZrlDEP7m3VrY q72E0ZqgJilg6JgTvw3ut 79cOUuo8Z4kYD9NAahRCO nfX1tWTwlNhP9 IMVvDgWtyD53lNPnGHykW x2ioGyuzGyiLE6nRXBfvs cvODAjlZ7tOSPmcKTpgZe mEZ6iBKXsjzkb s891YdFvONW7PLBxqSZeO 8XbbY5xMySjCRIsSNCwH6 WltFGwSGcqR955XDgyFkV 5NYTzmiIcC4Xh XNPyaUdhBiT9i6E8Rj0Cb 7WakbupDRI8MYxrBDSzNg QpBrYiCwO2V6HnWrh9YLA wyPajTI0cQ0Ee WMInldygfwicmFP3WZOmD OXgvU94yOWcTZtxQu9hk2 W1b749QNKwFIJnsA32Ro7 udDogMTBwdCBU yU8efxsim4jbpcqjYoFcW RUqQGc5LRw4OKNgrJqoBo FdDWS7LtI9OVH7lKTllK0 jdCygptiskJ6w Oyc+U84xzB5oVSP2ANS8j danAQQwdlEzOO79VB66Y0 RyPjwvdGFibGU+PGRpdiB ajNkkLR9cZhBw w5anr7MfYBskC1ZhFHBuQ ZypLwj4RWNhXDN3bWH8cU 2bEULxXSmsb2G2cIF7Z4K qgtYxjr8zd5sa RMBeMNiaS99xgCKbd9C4J SMsnKH8VAXwdYirUkAvaW 93Oyc+HNHdzZzil1SwAzm yf6lrv0kklSf3 DkCkWSZrimIcsOdbOTL6n 4NuAu68R45xITuzSZItAY XsEAZoTZEomGolpr0dhW0 wIi8+PGNvbCB3 oVF9cR9nSSYkXqR6BBfqX 013DqLhqRKnPafml7brk0 ivhUp0NhEfMXZsimDedPn pGNW4y7YlHt18 O74tSJgnQPJeGOSmMEAeA DVurQtcob0aaM4mJw9+PC 2yz2wctv75pX47sIK+PHR bLXD3ySgdMRly PMGojF2zOLdnRaJ2XAJhL bZphF55nQOdJBsnRd6zxJ evyXxeTN2pMACaxyggb40 1UgCrd1saVUIr mMRfXIifMNI4L78al6A8M VNjZCXeYTC1xEL8gX4kuX lnbjogbGVmdDsgdmVydGl tZHzqLKqlH322 IHRvcDsnPlBhdGllbnQgT tIxALc7Y4SrCub7ZIVmjM slNE4wxGCvZYlkDa8ezQj lyHboIK5kKFVo pbnzx205SdRwc0stYIKze JWuAApxQKA0L78rj1A4RR JvAORlEEI9pBK3dQ1tuGo nbjogbGVmdDsg dzNziZpqPHrpHWbfH962C HRvcDsnPkJpcnRoIERhdG N9LG34FA19zDMzv1W6eGF 1N8TkXHRmosgy tknxzNW4IMEpJGPawE10J h6xvMxfPq9vHCGaMBS7MX JhrYCvY5EvuW8sZmByYYG qVDHgL1PxxYVo GInhN122HZzyEkO4OPYva nPaJ8YaRTKimDrbNwM1i9 K5Yq3JG2P1XA62OR03mFH lf7S6ePN7H5Fs HQXpmzwpxirqlNG3XYPhW QHaiP53Af9wsUxdXx6lNU DdARL9ZNIxhKAiS8IjeP3 yOiAjMDAwMDAw U1OflDTaQVhrE362NZkvZ oQ0PCKeozJnG8OoZLXsnM ipEsS8d8L3Pg0IFOn2RT8 0RS44dRDmd7W9 kUD5S6LoKQJpxddopdhnz NX1VFGwQDWycR22Ov9evK bgGk1vOPGsPCG7RBCyxPD aJ9UeoB5gHtMc BQUnMVHxM4YfnQCuGGakC 808TNlpGqM6FJPhfgFfU6 UlRDXkzAkiCfQ6q7U2Xi2 HJKWsNG12FDQ2 iPX6PC57GB38H9WdDecio GFibGU+PHRhYmxlIHdpZH RoPScxMDAlJyBzdHlsZT0 rNs8mUYYpNUXt nYmhqOZhVlDui0enLJPvO XtpXP0ujBsqU7DtwFL7OA Xwo9z8Uu74C51kV6LvcRF +TFVhxKF9pKR1 eE0hGoDtGkM7XLsnP830S kYrvCEfPvmvg9lxn3ydgJ e1NlR9YRNxapZupValDAE 7g7YrWp64Z59k IHdpZHRoPSIxNSUiIHZhb Yengy6yuP4hVl3+PGNvbC S6vDU8kO9sWjLlWjI3UKa cR361BrOdjNZt Ykymn3asc1rcdBs7UlClN LRjhgXdvOnkKNG8c2LcAp 65P4IrhLdtf0OnZkp7cf1 8bYHmh9M1fVC6 X3SwWBHhyjukvFNvtFcrH G4qOTBnwqunUDCzfG6wVF HfC1t8DkBuRlO5ZHakR2N mhuT7FSYklXYi EVdyEKO6A01ws3K7EHPaZ YAlDKA1hIR2cU1xiSsddl ogbGVmdDsgdmVydGljYWw dGFszQ285PHOa cJrlIJRmoE3rEVAkxHSyv CycJX9yRWBfcfjmQboXCY 5HLCBLUklTVElOQSBFTEF BLzJ4U5QrXtl7 ZYKqdGswST1nuCVePYmkW z4hrVhpfWyvMZ7mRSHxsd lgOJFcvB5cBYZfdSLhlIx dLF0iHLGyrnjq w894GpSrQLW1VMOuzXSzG 0EasB2qXqIqRSEgWLZcJ5 OhlRKxGSfrP869ZBsuTeY 4VKIcmoKiS9Ea LDHuuZkkUtQ9u2X8Ce1nW r4cHV0vYVr4SM57GM26qJ Cfb1I5mVR9D9AxPXZsrlt wyeszpOJ2MTGe BFVzzO07sCDeWZuzJi8py 3A1d397YGUwYIFlyQ88Gl 6tsOtpSPHzhAPBrS9ngyi yt8bihzwcFpOl ZHGmJMd0LLg3QZPywSncF mKsENY7RoM8FQK8cPRyhK 5xiQhzlylnfG1yTal+MzY fQZIgpnR2E5Uf Snm5ZQFpjSupCT7rsPBpI YwnBr2tsUrrjOxwUR9fVG QcrzjmXWKmoO1tJMBijXZ kwQsbVU4iHHTc idroy252SdQzPSE2UWAoc OXtB0MdvB3qUoAiPQWwFV KsH0ZweTMrCCdaI494FEm cFrG3ULBglyAm U2AzCSBweLnrXsY3l7Q3W q8HHM0POHV4D7WfCsq4YN ZglUblRJ3woZSoGOxaHu7 ylCdfjHccER4h BIItdjarWDXijN8lJBEtn NJsiMkpKC3vUSWnsjpek5 73SwZfPLM6PGJmvTXeO4I jiJ0rPuGnUHSh KVQsH7JjqRFoQOpiN733N PadBkI4MUOnerLhC4PiSF KhcUvxCcX8t1L7Dv3ZGXf vdGQ+RU61cx15 N2LbZuwxCtv4ZSBpRXT3t KK6eC1gOOPqGSyfu8F5dS Q0Z8WwoyVnns5is8clDEP bSXlxC66paKOm r0E7KERizFZ9CQXfxUsiL wVbuM07Cvj+PGNvbGdyb3 KhCfxbt1qcp6lgkNy5EbS wJSIgdmFsaWdu ZHT6x4OlKx87P91gBLcuX HRoPSIzMCUiIHZhbGlnbj 6sgT2rOe5+UGOhvNR9oHK 9uH3rDnZlHxD8 FLhtJ745PuOuxUHbIatam 4kdu0zluMh3JgFlCWBsij AkrQawNVY8c5ZoLf06X5G liDqja4YeRyo6 ny89aSKku0S7zTR8T4RsS MLfqeqzoOSrhWycTB5tTV DpijhkDSMutI8bYLFhH7q 7LiVaPvK7MZgr G6SunvG6KVOafRWlPOIhr EUMcI3dysxxj9uyvyaqVg DlRHZiKHh2IAm3LYWuyFx zMyLxPZF8RcK7 ZRE5uHJpvY6hfNpjctlxn G9wOyc+GNi6m2ijvKGzRF 8jyIT6QO87BW64sXHpu5G 1sHB6W5EeGOAo tpbxjjuyxMC3LEAzIPUum N21Ka8iyAoaUg4bNOBoFQ L7GIAebLKyZ2FlgP5mYmP pIDAoVSVpY3Ou jESoLLklQ408WXttZcZ4I LHdalUcT0PjNOOlbJgqHu L1k7E0Ca8MGY91FA43WO5 6pNOrt1Q7nMV6 P9AoRVNlvnnsoefjjEW9N PDiYFVvdD31Ro4yfCylKr 9pJEOaXJO6FCAoqJYbG8I erO3zDaPcVAUp OZFlV6OjwACzPZfqM356Q XylUbW0PUAzmhGuQ3VwJF JwzEvgEiE3i0G2Vz8MGg7 9EN15RF06eEUb r7A0kRJ7W8GaDSZwfdkcs jtncIA2MTJsUADncS59Ti 8ltZfrHy9aYDBuYOR8UOC xoHSmT0HgcR0t NuWjESZwCCRyX6CqyUWyC LdmA587RNsbCwM8ULOgoc WoW5DmGVOxxEntXeF6y3P 6Qb2WAFrqtlx8 F0KfUvtgiFJ+LI62YJXoR X10wVHevFIwz0qvmJo6Yc WtKMRiBAQ7uLpfNBbsr8N ySZFpX62ffZGj c2U (more content not included)... Normal [facility] ED Clinical Summaryon 2022 ED Clinical Summary [facility] ? Urgent Care [address] [place], [place] [id number] Clinical Summary PERSON INFORMATION Name: NOBLE SANTIAGO Age: 37 Years Sex: FEMALE : 1985 MRN: Acct#: Visit Reason: UC - Sinus Pain or Congestion; UC - Ear Pain; LT EAR PAIN Arrival: 12/16/2022 11:36:50 Discharge: 12/16/2022 12:00:00 LOS: 000 00:24 Check In: 12/16/2022 11:36:50 Checkout: 12/16/2022 12:00:00 Address: [address] [place] [id number] PCP: Ame Ortiz CNP PROVIDER INFORMATION Provider Role Assigned Unassigned Sandra Dinh ASSOCIATE SPA DIRECTOR Nurse 12/16/2022 11:39:08 Cong Cobian PA-C ED PA 12/16/2022 11:41:06 VITALS INFORMATION Vital Sign Triage Latest Temperature Tympanic Temperature Temporal Artery Pulse Rate O2 Sat 98 % 98 % Respiratory Rate Blood Pressure /78 mmHg /78 mmHg MEDICAL INFORMATION Medications Given: Allergy Information: Tape; Betadine; codeine PHYSICIAN DOCUMENTATION DISCHARGE INFORMATION: Discharge Disposition: Home Discharge Location: Home PATIENT EDUCATION INFORMATION Instructions: Otitis Media, Adult, Zqpt-yq-Enea Follow-Up: With: Address: When: Ame Ortiz [address] [place], [place] [id number] Business (1) Within 1 week Comments: Please follow-up with , call the office schedule an appointment to be seen in a week or sooner for continued care, taking amoxicillin as prescribed, take kocj-noq-auasgmx ibuprofen Tylenol as needed for pain and fever, drink plenty water stay hydrated, and return back to the urgent care center for any worsening symptoms, concerns, or complications. DIAGNOSIS: 1:Left otitis media Patient Understands: Yes - Patient/family/caregi regina verbalizes understanding of instructions given Comment: Normal [facility] ED Patient Summaryon 023 ED Patient Summary [facility] ? Urgent Care [address] [place] [id number] PATIENT DISCHARGE INSTRUCTIONS Patient Information Name: NOBLE SANTIAGO Age: 37 Years Date of : 1985 Reason For Visit: UC - Sinus Pain or Congestion; UC - Ear Pain; LT EAR PAIN Arrival Time: 12/16/2022 11:36:50 Primary Care Physician: Ame Ortiz CNP Attending Physician: Cong Cobian PA-C Comment: Patient Education With: Address: When: Ame Ortiz [address] [place], [place] [phone] Business (1) Within 1 week Comments: Please follow-up with , call the office schedule an appointment to be seen in a week or sooner for continued care, taking amoxicillin as prescribed, take vhio-ycz-gdospcr ibuprofen Tylenol as needed for pain and [...] Follow these instructions at home: ? Take ecnn-dme-osbblmi and prescription medicines only as told by [...] provider. Document Revised: 01/25/2022 Document Reviewed: 01/25/2022 [employer] Patient Education ? 2021 [employer] Medication Information: The exam and treatment you received today in the [facility] Emergency Department were for an urgent problem and are not intended as complete care. It is important for you to follow up with a doctor, nurse practitioner, or physician?s clinical assistant professor for ongoing care. If your symptoms become [...] Radiologist will (more content not included)... Normal [facility] Urgent Care Recordon 023 Urgent Care Record [facility] ? Urgent Care [address] [id number] PATIENT DISCHARGE INSTRUCTIONS Patient Information Name: NOBLE SANTIAGO Age: 37 Years Date of : 1985 [facility]: [id number] Reason For Visit: UC - Sinus Pain or Congestion; UC - Ear Pain; LT EAR PAIN Arrival Time: 12/16/2022 11:36:50 Primary Care Physician: Ame Ortiz CNP Attending Physician: Cong Cboian PA-C Comment: Visit Diagnosis: Diagnoses This Visit Left otitis media (H66.92) UC - Ear Pain ([id number]) UC - Sinus Pain or Congestion ([id number]) If you received any narcotics, sedation, or [...] documents With: Address: When: Ame Ortiz [address] [place] [address] Business (1) Within 1 week Comments: Please follow-up with , call the office schedule an appointment to be seen in a week or sooner for continued care, taking amoxicillin as prescribed, take zbwa-xuf-bztqpid ibuprofen Tylenol as needed for pain and fever, drink plenty water stay hydrated, and return back to the urgent care center for any worsening symptoms, concerns, or complications. Medication Information: The exam and treatment you received today in the [facility] Care were for an urgent problem and are not intended as complete care. It is important for you to follow up with a doctor, nurse practitioner, or physician?s clinical assistant professor for ongoing care. If your symptoms become [...] so we can reach you if necessary. [facility] Urgent Care has provided you with a complete list of medications post discharge. Please inform your primary care nurse practitioner/provider of your visit and for further instruction on these medications. Any specific questions regarding your chronic medications and dosages should be discussed with your primary care physician(s) and/or pharmacist. New Medications [id number], [address], [place] [id number], [phone] amoxicillin (amoxicillin 500 mg oral capsule) 1 [...] 1 capsule by mouth once daily. rizatriptan (Maxalt-ACETYLENE OPERATOR 10 mg oral tablet, disintegrating) 1 tab(s) [...] The condition (more content not included)... Normal [facility] ER URINE PROFILEon 2 Bilirubin Ql (U) Negative Normal NEGATIVE [facility] Comment on above: Performed By: #### E RUR #### [facility] [address] [place] [address] Dr. Phong Thayer Clarity (U) CLEAR Normal CLEAR Comment on above: Performed By: #### E RUR #### [facility] [address] [place] [address] Dr. Phong Thayer Color (U) LT. YELLOW Normal YELLOW Comment on above: Performed By: #### E RUR #### [facility] [address] [place] [address] Dr. Phong MONTILLA A micrscopic examination will be performed if indicated. Normal Comment on above: Performed By: #### E RUR #### [facility] [address] [place] [address] Dr. Phong Thayer Glucose Ql (U) Negative Normal NEGATIVE [facility] Comment on above: Performed By: #### E RUR #### [facility] [address] [place] [address] Dr. Phong Thaeyr Hemoglobin Ql (U) Negative Normal NEGATIVE [facility] Comment on above: Performed By: #### E RUR #### [facility] [address] [place] [address] Dr. Phong Thayer Ketones Ql (U) Negative Normal NEGATIVE [facility] Comment on above: Performed By: #### E RUR #### [facility] [address] [place] [address] Dr. Phong Thayer LEUKOCYTES Negative Normal NEGATIVE Comment on above: Performed By: #### E RUR #### [facility] [address] [place] [address] Dr. Phong Thayer Nitrite Ql (U) Negative Normal NEGATIVE [facility] Comment on above: Performed By: #### E RUR #### [facility] [address] [place] [address] Dr. Phong Thayer pH (U) 6.5 [pH] Normal 5-9 [facility] Comment on above: Performed By: #### E RUR #### [facility] [address] [place] [address] Dr. Phong Thayer SPEC GRAVITY 1.015 Normal 1.005-<=1.02 5 Comment on above: Performed By: #### E RUR #### [facility] [address] [place] [address] Dr. Phong Thayer UA PROTEIN Negative Normal NEGATIVE/ TRACE [facility] Comment on above: Performed By: #### E RUR #### [facility] [address] [place] [address] Dr. Phong Thayer UR MICRO IND NOT INDICATED Normal [facility] Comment on above: Performed By: #### E RUR #### [facility] [address] [place] [address] Dr. Phong Thayer Urobilinogen Qn (U) 0.2 {Gilma'U}/dL Normal 0.2 - 1. 0 Comment on above: Performed By: #### E RUR #### [facility] [address] [place] [address] Dr. Phong Thayer XR LSPINE 2_3 VIEWSon [...] by: DONALD CANNON Date: 2022-10-23 16:28 Normal MR head/brain wo/w conon MR head/brain wo/w con [facility] Main [employer] [address] [place] [address] MRI Report Signed Patient: Noble Santiago MR#: [id number] : 1985 Acct:[id number] Age/Sex: 37 / F ADM Date: 10/13/22 Loc: MR Room: Type: [facility] CLI Attending Dr: Lambert Gavin DO Copies [...] Yovani Arita M.D.10/14/2022 12:25 PM Dictation Location: [place] [address] Transcribed By: [facility] 10/14/22 1225 Dictated By: Yovani Arita II, MD 10/14/22 1216 Signed By: 10/14/22 1225 Normal [facility] Coding Summaryon 10-01-2022 Coding Summary HTMLBase 64 NhetvyfpJBq5qHl+PGhlY WQ+ER6STYYpA32fxYAavN 4FS0oNNB6NDAQQXCEMMQ1 OWK4otVN2BXyrC1AidyDo UocacAFtSK49WBi7ZJT1u MjaSBxlrL9loJYiS6k5Qu XaUQ73zB97HRmpQIItJaH 3LjZpbjsgbWFy Z4baEtPkoWMrZpj+PHRhY mxlIHdpZHRoPScxMDAlJy YskKbtCO3iKu9uRJJkPQP vbGxhcHNlOiBj w2hiCKSxFPtsAZ1kbTacW 3KbsEF4VEIzv9q9Pb47gL I+HYXeLYD1aJzoOLfgd10 9ZaZue3dpIBD2 dIHvDMntZRU5C12pr0N5R SQpQFAwAIU1rSH4hL0sgQ pzresqH1KcsLQeCyG2WTO 5pSGpsV9wcEph pabxnJ1pMtx+H82QQZ9VO AQCVT6WIet6L6TaJdmdhQ I+RH26XBNuKO33iROieXZ nx5slgJe9FaUj OYQiXMQ4jRuaEKaum7IfS RErA02yhACqy3P6HQIksH fgyFRuJbQcnZO9nL9fFMg gtklvq8pnndst Dpedo6mnyv36cO28W19dV LswNFXjGLA2XVMdLLXoyU ecfx1znS6cVl6+DVynp4s df8abrVq0SbOt ZOTxqbDizXrlZHX5n2ZtY b13I3EfnUrsh1XvMzr9ca 06sGUgp0L1wPV0BVgdRLG vdD6zPRmlOeL4 SRRrBsLigK41mEEhAIvrR a2vdTyftKrhFC7pNKDrqw skQPRjnV8wGKHmyXZacVh tFK7uXCGbgyua j409XzMpJVR2VSPtnJRgH 8PuxG7mVxJbOBFlFGIsH8 PphSPgGSxcK541COwyUbE 4GKYsojFhH9Tu HZVltQpdEdC9t9M2Tb5Cj 7FvwngbLPF8CNqiECWaQr EgGfMqNcA8I6YyEvw3TIB vhJngBD9sJ5Lu DXQefwodezkumQL0EHNmK KVdhO32kXBdJSblAu6et9 E0k923OPUxPOIuxH39Ot1 udDogMTBwdCBU oT7otuzjj2oeyzybCrMgK SXkNJh4YEn9QVJnwAmpHx UzPYC5UqU4KLB3qEBezZ0 hgUgfdjlpnP9c Oyc+A40yyX2cMTC2TIK9a biuICLkuhHhEL28NF94A4 RyPjwvdGFibGU+PGRpdiB opGrtBH0eIyDe r6ucs2RdNZsnE6EwLNZpF NugHes7BMVcNEC8yJZ2rL 2bSFBwTDrqr1P3fQI6T8Z qwcKwab3pc0kn DFOwBAnpJ90hnYIhy8O3Y QOyuYT0QNVcxZqhWlLvnO 93Oyc+KKVgiHjmz5XvNrv ax7poo8ftxOc3 JeKaBWRnfiOcvPytUXV3p 7QdRx26Y42rDXpgWALlXT VcJIAzHRRiwDhcbt6ekD2 wIi8+PGNvbCB3 pAG7zW9wDXNgEmC4CBifA 990RuLjzMJqTierv2vpg3 veiAg7XnInQLHxwvCpvVc zCIB3r6IpIy87 U09oAIjnFZLiEPSpZJVnN SBfyIhtnr9huF9dCj7+PC 5yc1kygq69eV17gTU+PHR fVNG3lTraFSqe SXVkaA7wLBauFqF8QHMrH wWjrQ28jEChRJejUu9lcL ecgXfzCP5kDKUtwpmlj71 8LwIii9hdIWFo vWGqMEneKGU1P39bi0O8D DZjKLXjYTI2sRV2gU9irG lnbjogbGVmdDsgdmVydGl oOTtxYDzhD829 IHRvcDsnPlBhdGllbnQgT qXuVYl8I8OtZxv7XJJzjX gpAJ2hiYSnRRzxBi0miXs qoFqbQU5bQGZs ofdik586HhWeu3tfEPGhl TEoDBabEBL8O97ib9A9LG PcWJJnCNR1bEX4xN8vgJo nbjogbGVmdDsg vcGwyAldLHyfGXmsI357S HRvcDsnPkJpcnRoIERhdG Q8BF51NM39jWOpc8W8rCO 1A0NgMTFhvely ofuznMC0ZVFdJNOwlS69I z9mtItdJh6jUCTiFFU8VF GtlYSuS2QvhQ2lKlYfNPB pRUUpQ5SycAQi HZrjS340UWhrUtW2HFLyn hUcV3FkWLUbsGbeUgQ5n5 N9Yx2GS3P1YI75ZI22fIE ah8B5bDY1V7Gl BUSbudbyvkssaMO6PUSiT NBflY83Oa2xzKwoPr5yDR ElUGP2ILYvhBWdY1GtvW2 yOiAjMDAwMDAw R2HoaQAvACzeI752SPvgD qM0PDHndnZvO6AvALRakT clUeS0u5Q1Aj2MDMs1OW7 8OE48wAFey2W9 pMR2V5LzJLGqxyzodovzd ME6FQOlGYKiqV55Ls3qgE fgPa8zVLUgUIT4AWWcoKW uN6AwxX9jHxQp RFIjVOVtS4EmcMEiEEnuW 959AVueYfG6ZTTkucDiQ5 BfASTcvOojQjL7v6Z6Uw3 ZAIPuQZ62LXO5 jDA8PI17LC45I1GdPelmi GFibGU+PHRhYmxlIHdpZH RoPScxMDAlJyBzdHlsZT0 yQw2iFNAdIVFn zWphaUYyAeZjr6ezNCHwH EioYZ2iaNrfY1FgyDV8TD Pre2e6Fs60S48aQ0JqpDJ +VMTwnDB3sPG7 vU9mZfMwLoK7PHvzI391Q lKbfVEkXyuaf6mhk2trhB i9YaF7JXAcbmJimOzlKNR 4e5VkLg90Q92n IHdpZHRoPSIxNSUiIHZhb Zbjsv6lxH4nIj0+PGNvbC I8gPH7bH1iUuTiLfV8RTn rY375MmDkcXEt Vduoy0yec9vhmYl6FoScA NVzkgOcgDzwIVF8w5TaLk 43Y6QrbXnis7WgImg8xd4 5lBKay3N1jPO7 K2LgKCRxzbiwjMPnnVtmB O3zSDNkpplpJVFkzE6yND AbJ9n2ScWcNwR2TLyxE3B zdiK4FTJafHFe RYmeTHR1Q54tu2Q1LYHrJ DMiQUS3lVB4rH5swBtvnc ogbGVmdDsgdmVydGljYWw aRVvrK133KCHe aHbmLEQniW3xENTqhIHns VuhTU1sGXKkeavyDbhDUA 5HLCBLUklTVElOQSBFTEF JGjC1L3GhKrg4 PUUunGzoHT4hwNVaVTeoC z7xgRdwcFvjNB2iJTIbeu ifJWXrkD7lTAEhjSQuwLb xFN8qLNXbepwm y752BgPnRNN9QSYlrGIiW 5SczK6wHxSlUXVgQADlN6 UicRIwSZojI833VXqiZfU 0HTEhcjPhC1Fw JCVecPocMgE4m1T8Nn8fP c7gEN0mIMs7HW28BR94mC Jln4Q1xQN2F8GpRNEsviq zfrdkaSC0GUZf NECwlX91qIStVOwkDb4os 2Z9b552AHNbMGKbcR33Vs 4evJnsMYCboZDPoW9pfpk yk4vjlfdhRwHc UURoSHy2QKd8LHAdaDdeY aZwOTR4ZwC5LRT3tQAdoA 2njDkibjiebZ3yQnb+MzY pTUQnacN0L3Oq Zsa5UNVqySzhPZ1wvNQmC JdnFl3sgPfdhXpyNK6eYX NhpcklKAXjjY8vQCIhqTB laWbjTL1uVWAu kfplq159YaXpVXH1YDSdg XHaN6AfmS2dYbJiYHQoPS HrI3XaxCOcUUhgE491RGl tYcC4ZXQlugVo B1EuCFGkdXquFgG0w0Q0S x2BAJ0FTEA8C8HxTqo6OJ YbiDfzCY3mkKYtHEurAz1 ysWvcyYvtXY4d MFGnfihsOVOweF6sKCGqx ZElbUhvAA0qRYHnnzqyu2 69ByKmFJW3FWYaqSGdP1X beF6aJgNjFTCq QSKkW4CcmYWzEYlvM775M VxtWoY3QMLgeiUhK1YyFU ItpJpdBxO7u3X9Ie0JVDc vdGQ+HQ32fh97 R8OoNcsrRxq2PFMeBEX2a OH2hD0uYEDrBUjsk6L3eO T3S7PlawIupc0ug7reTFU pTYxcB84jtMPm m7U1RYBxoZJ9PNEsuUbwA uMrkQ41Tiw+PGNvbGdyb3 OeZgtna1tls8xxcLx2MqS wJSIgdmFsaWdu SRV5w2RmFh91Z34kICmpV HRoPSIzMCUiIHZhbGlnbj 3tyD2sMl3+OQBljCK9bFZ 9xE9aTcUlFnO6 ULehW468KrRmvVVzOcycr 5pxk2hsfVp8KsClRAHhfr IheVnfTZR9h8FzYb16I9H ziFuxj9TkLlv6 ev34pKEph2D1aUJ0P9IuK HQhjtxkqIUawUlpBG6nNI DblrjxSFFqqU1kPKNxV5q 9EcTsZsR2XXdz F7CpbeD5NBHdpVTnCKSya LPMqZ5rtchkg8fwhojfFo MoNXCgRCg6RFz1YEXtxSa lIzBfNLE6RrH3 DDK8qEVuaT5cgKldnhore G9wOyc+IEg1a1abfZSsCW 0rsLZ0LO69EX87fJVkd8E 6iNT4Y3RkKMZa bgyvxjjizTR7EVNrXCYag I53Ff7iqZbbVq8kCNQxTQ E5SIWbfSEmZ6TprE0wXhS gSHSzQSQkR9Dt cMAlZIsrD532XNljCyY2D IIrjiItV7OnVCPbxFobJe B5b2B1Ec4IPB29BE55CW5 3aLWwz4J1gSL0 M0NsLKBzyfymdfjnbZF4T AJrUBUfoV59Ds1qdUdcRw 8ePKZpKNR6WIYzdNOvR3Z ssP4kMeOkYBKc YWUjH1WksXFhKKhtE503G PlbSnX5WTCeiqEbU1CkDP HxnNgiFbV3y8B3Hj1THv4 0UG19IH01uXAg g0V2rOF0Y3IeANJwfngfa cczvHB6TITrPTEcsF22Nn 2gbGepFa9eITMmIUB6VUN quBDwD1NbxZ2y QcZiOLHyCYZkA4FazOQeD BvrZ108VVejTnR0MAJpdx OhE3LbXICfmMutZwU3q3W 6Kk0GUJffzbb2 X2ZoVcbcuHX+JZ54AEQmO X48aINxkDExf6oyaHb3Mg OeXPExPSV3yBtvEUnul1Z [id number] (more content not included)... [facility] Outside Recordson 09-30-2022 Outside Records [id number]. 00OTGTIFF [facility] ED Clinical Summaryon 2021 ED Clinical Summary [facility] ? Urgent Care [address] [place] [address] Clinical Summary PERSON INFORMATION Name: NOBLE SANTIAGO Age: 37 Years Sex: FEMALE : 1985 MRN: Acct#: Visit Reason: Medical screening exam; ADULT SCHOOL PHYSICAL Arrival: 09/29/2022 10:32:28 Discharge: 09/29/2022 11:15:00 LOS: 000 00:43 Check In: 09/29/2022 10:32:28 Checkout: 09/29/2022 11:15:00 Address: [address] [place] [address] PCP: Ame Ortiz CNP PROVIDER INFORMATION Provider [...] verbalizes understanding of instructions given Comment: [facility] ED Patient Summaryon 022 ED Patient Summary [facility] ? Urgent Care [address] [place] [address] PATIENT DISCHARGE INSTRUCTIONS Patient Information Name: NOBLE SANTIAGO Age: 37 Years Date of : 1985 Reason For Visit: Medical screening exam; ADULT SCHOOL PHYSICAL Arrival Time: 09/29/2022 10:32:28 Primary Care Physician: Ame Ortiz CNP Attending Physician: Abhi Finney PA-C Comment: Patient Education Medication Information: The exam and treatment you received today in the [facility] Emergency Department were for an urgent problem and are not intended as complete care. It is important for you to follow up with a doctor, nurse practitioner, or physician?s clinical assistant professor for ongoing care. If your symptoms become [...] so we can reach you if necessary. [facility] Emergency Department has provided you with a complete list of medications post discharge. Please inform your primary care nurse practitioner/provider of your visit and for further instruction [...] capsule) 1 cap(s) Oral every day. rizatriptan (Maxalt-ACETYLENE OPERATOR 10 mg oral tablet, disintegrating) 1 tab(s) [...] Diagnosis: Diagnoses This Visit Medical screening exam ([id number]) If you received any narcotics, sedation, or [...] the Ans (more content not included)... Normal [facility] Urgent Care Note- Provideron 09-29-2022 Urgent Care [...] tab(s), PO, Daily, 28 tab(s), 0 Refill(s) Maxalt-ACETYLENE OPERATOR 10 mg oral tablet, disintegratin mg = [...] selected or recorded.. Surgical history: Diagnostic laparoscopy ([id number]) on 07/24/2019 at 34 Years. Tonsillectomy and adenoidectomy ([id number]). Lump ([id number]). Comments: 07/16/2019 11:30 Arabella Day RN left axilla Cholecystectomy ([id number]). Keloid of skin (50163470). Comments: 07/16/2019 11:31 Arabella Day RN left ear Foot ([id number]). Comments: 07/16/2019 11:32 Arabella Day RN titanium implant left ankle Dilatation and curettage ([id number]). Tooth extraction, multiple ([id number]). Comments: 07/16/2019 11:33 Arabella Day RN wisdom Sinus ([id number]). Comments: 07/16/2019 11:33 Arabella Day RN x2 Colonoscopy ([id number]). Esophagogastroduodeno scopy ([id number]).. Family history: No family history items have [...] on: 09/29/2022 11:09 EST] Abhi Finney PA-C [facility] Urgent Care Recordon 022 Urgent Care Record [facility] ? Urgent Care [address] [place] [address] PATIENT DISCHARGE INSTRUCTIONS Patient Information Name: NOBLE SANTIAGO Age: 37 Years Date of : 1985 Reason For Visit: Medical screening exam; ADULT SCHOOL PHYSICAL Arrival Time: 09/29/2022 10:32:28 Primary Care Physician: Ame Ortiz CNP Attending Physician: Abhi Finney PA-C Comment: Visit Diagnosis: Diagnoses This Visit Medical screening exam ([id number]) If you received any narcotics, sedation, or [...] and treatment you received today in the [facility] Urgent Care were for an urgent problem and are not intended as complete care. It is important for you to follow up with a doctor, nurse practitioner, or physician?s clinical assistant professor for ongoing care. If your symptoms become [...] so we can reach you if necessary. [facility] Urgent Care has provided you with a complete list of medications post discharge. Please inform your primary care nurse practitioner/provider of your visit and for further instruction [...] capsule) 1 cap(s) Oral every day. rizatriptan (Maxalt-ACETYLENE OPERATOR 10 mg oral tablet, disintegrating) 1 tab(s) [...] Disease Control and Prevention July 2014 Normal [facility] T3, TOTAL (TRIIODOTHYRONINE) on 09-16-2022 T3, TOTAL 132 ng/dL Normal 71-180 Comment on above: Performed By: #### T 3TOTAL ####[facility] [address] [place], [place] [address]OnAnnalee Thayer CBC AUTO DIFFon 09-15-2022 BASO # 0.0 103/ul Normal 0.0-0.1 Comment on above: Performed By: #### C BC #### [facility] [address] [place] [address] Dr. Phong Thayer Basophils/100 WBC (Bld) 0.3 % Normal 0.2-2.0 Comment on above: Performed By: #### C BC #### [facility] [address] [place] [address] Dr. Phong Thayer EO # 0.1 103/ul Normal 0.0-0.7 [facility] Comment on above: Performed By: #### C BC #### [facility] [address] [place] [address] Dr. Phong Thayer Eosinophils/100 WBC (Bld) 0.8 % Critically low 0.9-7.0 Comment on above: Performed By: #### C BC #### [facility] [address] [place] [address] Dr. Phong Thayer Erythrocyte distribution width (RBC) [Ratio] 12.5 % Normal 11.0-15.0 Comment on above: Performed By: #### C BC #### [facility] [address] [place] [address] Dr. Phong Thayer Hematocrit (Bld) [Volume fraction] 42.2 % Normal 36.0-48.0 Comment on above: Performed By: #### C BC #### [facility] [address] [place] [address] Dr. Phong Thayer Hemoglobin (Bld) [Mass/Vol] 14.3 g/dL Normal 12.0-16.0 [facility] Comment on above: Performed By: #### C BC #### [facility] [address] [place] [address] Dr. Phong Thayer IG # 0.01 10e3/ul Normal 0.00-0.03 [facility] Comment on above: Performed By: #### C BC #### [facility] [address] [place] [address] Dr. Phong Thayer IG % 0.1 % Normal 0.0-0.5 [facility] Comment on above: Performed By: #### C BC #### [facility] [address] [address] [address] Phong Thayer LYMPH # 2.5 103/ul Normal 1.2-3.8 [facility] Comment on above: Performed By: #### C BC #### [facility] [address] [place] [address] Dr. Phong Thayer Lymphocytes/100 WBC (Bld) 33.7 % Normal 20.5-60.0 [facility] Comment on above: Performed By: #### C BC #### [facility] [address] [place] [address] Dr. Phong Thayer MANUAL DIFF REQ NO Normal [facility] Comment on above: Performed By: #### C BC #### [facility] [address] [place] [address] Dr. Phong Thayer MCH (RBC) [Entitic mass] 29.1 pg Normal 26.7-34.0 Comment on above: Performed By: #### C BC #### [facility] [address] [place] [address] Dr. Phong Thayre MCHC (RBC) [Mass/Vol] 33.9 g/dL Normal 29.9-35.2 [facility] Comment on above: Performed By: #### C BC #### [facility] [address] [place] [address] Dr. Phong Thayer MCV (RBC) [Entitic vol] 85.9 fL Normal 81.0-99.0 [facility] Comment on above: Performed By: #### C BC #### [facility] [address] [place] [address] Dr. Phong Thayer MONO # 0.4 103/ul Normal 0.3-0.8 [facility] Comment on above: Performed By: #### C BC #### [facility] [address] [place] [address] Dr. Phong Thayer Monocytes/100 WBC (Bld) 5.3 % Normal 1.7-12.0 Comment on above: Performed By: #### C BC #### [facility] [address] [place], [place] [address] Dr. Phong Thayer NEUT # 4.5 103/ul Normal 1.4-6.5 Comment on above: Performed By: #### C BC #### [facility] [address] [place] [address] Dr. Phong Thayer Neutrophils/100 WBC (Bld) 59.8 % Normal 43.0-75.0 Comment on above: Performed By: #### C BC #### [facility] [address] [place] [address] Dr. Phong Thayer Platelet mean volume (Bld) [Entitic vol] 10.2 fL Normal 9.5-13.5 [facility] Comment on above: Performed By: #### C BC #### [facility] [address] [place] [address] Dr. Phong Thayer PLT 227 103/ul Normal 150-450 [facility] Comment on above: Performed By: #### C BC #### [facility] [address] [place] [address] Dr. Phong Thayer RBC 4.91 106/ul Normal 4.20-5.40 [facility] Comment on above: Performed By: #### C BC #### [facility] [address] [place] [address] Dr. Phong Thayer WBC 7.5 103/ul Normal 4.0-11.0 Comment on above: Performed By: #### C BC #### [facility] [address] [place] [address] Dr. Phong Thayer FREE THYROXINE INDEX T7on FTI 2.37 Normal 1.30-4.50 [facility] Comment on above: Performed By: #### T SH, T4, T7, CMP #### [facility] [address] [place] [address] Dr. Phong Thayer T3U 32.0 % Normal 30.0-39.0 [facility] Comment on above: Performed By: #### T SH, T4, T7, CMP #### [facility] [address] [place] [address] Dr. Phong Thayer LIPID PROFILEon 09-15-2022 CHOL-HDL RATIO NORM SEE BELOW Normal [facility] Comment on above: Result Comment: 3.3 - 4.4 LOW RISK 4.4 - 7.1 AVERAGE RISK 7.1 - 11.0 MODERATE RISK >11.0 HIGH RISK Performed By: #### L IPID ####[facility] [address] [place], [place] [address]Rf. Phong Thayer Cholesterol [Mass/Vol] 163 mg/dL Normal <=200 Comment on above: Performed By: #### L IPID ####[facility] [address] [id number] Thayer Cholesterol in HDL [Mass/Vol] 57 mg/dL Normal 40-60 Comment on above: Performed By: #### L IPID ####[facility] [address] [place] [id number] Thayer Cholesterol in LDL [Mass/Vol] 69.8 mg/dL Normal Comment on above: Performed By: #### L IPID ####[facility] [address] [place], [place] [address]Ad. Phong Thayer Cholesterol.total/Ch olesterol in HDL [Mass ratio] 2.9 {ratio} Normal Comment on above: Performed By: #### L IPID ####[facility] [address] [place], [place] [address]Lf. Phong Thayer HDL NORMAL > or = 60 mg/dl - LO W CARDIOVASCULAR RISK <40 mg/dl - HIGH CARDIOVASCULAR RISK Normal Comment on above: Performed By: #### L IPID ####[facility] [address] [place], [place] [address]Xo. Phong Thayer LDL CALC NORMAL SEE BELOW Normal [facility] Comment on above: Result Comment: <100 mg/dl OPTIMAL 100 - 129 mg/dl NEAR OR ABOVE OPTIMAL 130 - 159 mg/dl BORDERLINE HIGH 160 - 189 mg/dl HIGH >190 mg/dl VERY HIGH Performed By: #### L IPID ####[facility] [address] [place] [id number]. Phong Thayer Triglyceride [Mass/Vol] 181 mg/dL Critically high <=150 Comment on above: Performed By: #### L IPID ####[facility] [address] [place] [id number]. Phong Thayer VLDL CALC 36.2 mg/dL Normal Comment on above: Performed By: #### L IPID ####[facility] [address] [place] [id number]. Phong Thayer PROF 14(COMP METB)on 022 Albumin [Mass/Vol] 3.6 g/dL Normal 3.4-5.0 [facility] Comment on above: Performed By: #### T SH, T4, T7, CMP #### [facility] [address] [address] [address] Phong Thayer Albumin/Globulin [Mass ratio] 1.0 {ratio} Normal Comment on above: Performed By: #### T SH, T4, T7, CMP #### [facility] [address] [address] [address] Phong Thayer ALP [Catalytic activity/Vol] 90 U/L Normal 46-116 Comment on above: Performed By: #### T SH, T4, T7, CMP #### [facility] [address] [address] [address] Phong Thayer ALT [Catalytic activity/Vol] 27 U/L Normal 14-59 [facility] Comment on above: Performed By: #### T SH, T4, T7, CMP #### [facility] [address] [address] [address] Phong Thayer Anion gap [Moles/Vol] 14.2 mmol/L Normal Comment on above: Performed By: #### T SH, T4, T7, CMP #### [facility] [address] [address] [address] Phong Thayer AST [Catalytic activity/Vol] 13 U/L Critically low 15-37 Comment on above: Performed By: #### T SH, T4, T7, CMP #### [facility] [address] [place] [address] Dr. Phong Thayer Bilirubin [Mass/Vol] 0.2 mg/dL Normal 0.2-1.0 Comment on above: Performed By: #### T SH, T4, T7, CMP #### [facility] [address] [place] [address] Dr. Phong Thayer Calcium [Mass/Vol] 9.0 mg/dL Normal 8.5-10.1 [facility] Comment on above: Performed By: #### T SH, T4, T7, CMP #### [facility] [address] [place] [address] Dr. Phong Thayer Chloride [Moles/Vol] 103 mmol/L Normal 98-107 Comment on above: Performed By: #### T SH, T4, T7, CMP #### [facility] [address] [place] [address] Dr. Phong Thayer CO2 [Moles/Vol] 23.9 mmol/L Normal 21.0-32.0 [facility] Comment on above: Performed By: #### T SH, T4, T7, CMP #### [facility] [address] [place] [address] Dr. Phong Thayer Creatinine [Mass/Vol] 0.76 mg/dL Normal 0.55-1.02 Comment on above: Performed By: #### T SH, T4, T7, CMP #### [facility] [address] [place] [address] Dr. Phong Thayer EGFR-AF JORDANIAN >60 Normal >=60 [facility] Comment on above: Performed By: #### T SH, T4, T7, CMP #### [facility] [address] [place] [address] Dr. Phong Thayer EGFR-NON AF JORDANIAN >60 Normal >=60 Comment on above: Performed By: #### T SH, T4, T7, CMP #### [facility] [address] [place] [address] Dr. Phong Thayer Globulin (S) [Mass/Vol] 3.6 g/dL Normal Comment on above: Performed By: #### T SH, T4, T7, CMP #### [facility] [address] [address] [address] Phong Thayer Glucose [Mass/Vol] 95 mg/dL Normal 74-106 [facility] Comment on above: Performed By: #### T SH, T4, T7, CMP #### [facility] [address] [address] [address] Phong Thayer Potassium [Moles/Vol] 4.1 mmol/L Normal 3.5-5.1 Comment on above: Performed By: #### T SH, T4, T7, CMP #### [facility] [address] [place] [address] Dr. Phong Thayer Protein [Mass/Vol] 7.2 g/dL Normal 6.4-8.2 [facility] Comment on above: Performed By: #### T SH, T4, T7, CMP #### [facility] [address] [place] [address] Dr. Phong Thayer Sodium [Moles/Vol] 137 mmol/L Normal 136-145 [facility] Comment on above: Performed By: #### T SH, T4, T7, CMP #### [facility] [address] [place] [address] Dr. Phong Thayer Urea nitrogen [Mass/Vol] 13.0 mg/dL Normal 7.0-18.0 [facility] Comment on above: Performed By: #### T SH, T4, T7, CMP #### [facility] [address] [place] [address] Dr. Phong Thayer Urea nitrogen/Creatinine [Mass ratio] 17.1 mg/mg Normal [facility] Comment on above: Performed By: #### T SH, T4, T7, CMP #### [facility] [address] [place] [address] Dr. Phong Thayer T4on 09-15-2022 T4 [Mass/Vol] 7.40 ug/dL Normal 4.80-13.90 [facility] Comment on above: Performed By: #### T SH, T4, T7, CMP #### [facility] [address] [place], [place] [address] Dr. Phong Thayer TSHon 09-15-2022 TSH 2.515 uIU/mL Normal 0.358-3.740 [facility] Comment on above: Performed By: #### T SH, T4, T7, CMP #### [facility] [address] [id number] [address] Phong Thayer VITAMIN B12on 09-15-2022 Cobalamin (Vitamin B12) [Mass/Vol] 423.0 pg/mL Normal 193.0-986.0 Comment on above: Performed By: #### V GERALD VITB12 ####[facility] [address] [place] [address]DrAnnalee Thayer VITAMIN D 25 OHon 09-15-2022 VIT D 25-OH 28.3 ng/mL Normal Comment on above: Performed By: #### Kristine DUARTE, VITB12 ####[facility] [address] [place] [address]DrAnnalee Thayer VIT D RANGES SEE BELOW Normal Comment on above: Result Comment: <20 ng/mL Vit D deficient 20 - <30 ng/mL Vit D insufficient 30 - 100 ng/mL Vit D sufficient >100 ng/mL Potential Toxicity Performed By: #### V ITCLAIRE, VITB12 ####[facility] [address] [place] [address]DrAnnalee Thayer A1C HEMOGLOBINon 09-02-2022 HbA1c (Bld) [Mass fraction] 5.1 % [employer] Other HbA1c (Bld) [Mass fraction]o n 09-02-2022 A1C HEMOGLOBIN [employer] [facility] [employer] Other Lab - Reference Lab Resultso n 07-19-2022 Lab - Reference Lab Results [id number]#1.0 0OTGTIFF Normal [facility] T-Spoton 07-16-2022 T-Spot See Report Normal [facility] Comment on above: Performed By: #### 5 [id number], [id number], [id number] ####[facility] (DEFAULT)[address] [place] [address] HBSab Qnt on 07-14-2022 Hep B Surf Ab Quant LC 301.3 mIU/mL Invalid Interpretation Code Immunity>9.9 [facility] Comment on above: Result Comment: Stat us of Immunity Anti-HBs Level Inconsistent with Immunity 0.0 - 9.9 Consistent with Immunity >9.9 Performed At: [address] [id number] Pancho Higgins PhD Ph:[phone] Performed By: #### 5 [id number], [id number], [id number] ####[facility] (DEFAULT)[address] [place] [address] Lab - Toxicology Resultson 0 07-14-2022 Lab - Toxicology Results [id number]#1.0 0OTGTIFF Normal [facility] Measles/Mumps/Rubella Immuni ty on 07-14-2022 Mumps Abs, IgG LC 38.4 AU/mL Invalid Interpretation Code Immune >10.9 [facility] Comment on above: Result Comment: Nega tive <9.0 Equivocal 9.0 - 10.9 Positive >10.9 A positive result generally indicates past exposure to Mumps virus or previous vaccination. Performed At: [address] [id number] Pancho Higgins PhD Ph:[phone] Performed By: #### 5 [id number], [id number], [id number] ####[facility] (DEFAULT)[address] [place] [address] Rubella Antibodies, IgG LC 5.78 index Invalid Interpretation Code Immune >0.99 [facility] Comment on above: Result Comment: Non- immune <0.90 Equivocal 0.90 - 0.99 Immune >0.99 Performed By: #### 5 [id number], [id number], [id number] ####[facility] (DEFAULT)[address] [place] [address] Rubeola Ab, IgG, EIA LC 72.4 AU/mL Invalid Interpretation Code Immune >16.4 [facility] Comment on above: Result Comment: Nega tive <13.5 Equivocal 13.5 - 16.4 Positive >16.4 Presence of antibodies to Rubeola is presumptive evidence of immunity except when acute infection is suspected. Performed By: #### 5 [id number], [id number], [id number] ####[facility] (DEFAULT)[address] [place] [address] Nicotine Metabolite, Urine L Con 07-14-2022 Cotinine LC Negative Invalid Interpretation Code [id number] [facility] Comment on above: Result Comment: Perf ormed At: [facility] [address] [place], [place] [id number] Mark Puentes PhD Ph:[phone] Performed By: #### 1 [id number] ####[facility] (DEFAULT)[address] [place] [address] XR FOOT AIDA MIN 3 VIEWSon XR [...] by: RAFAEL COATS Date: 2022-07-07 13:58 Normal Urine culture routineOrdered By: AME ORTIZ on 05-27-2022 Bacteria identified Cx Nom (U) Staphylococcus saprophyticus [facility] Urinalysis - AUTOMATEDon Appearance (U) clear [employer] Other Bilirubin Ql (U) Negative [employer] Other Color (U) lt. yellow [employer] Other Glucose Ql (U) Negative [employer] Other Hemoglobin Ql (U) moderate [employer] Other Ketones Ql (U) Negative [employer] Other Leukocyte esterase Test strip Ql (U) small [employer] Other Nitrite Ql (U) Negative [employer] Other pH (U) 6.0 [pH] [employer] Other Protein Ql (U) Negative [employer] Other Specific gravity (U) [Rel density] 1.010 [employer] Other Urobilinogen (U) [Mass/Vol] 0.2 mg/dL [employer] Other Urinalysis - AUTOMATED [employer] Other Urine Cultureon 05-24-2022 Bacteria identified Cx Nom (U) Reason for Exam Dysuria Urine ORGANISM: Staphylococcus saprophyticus (O:STASAP) [place] Count >100,000 Aerobic SAAD Charge (PC45) ---- [...] RESISTANT TO ALL B-LACTAM DRUGS. PERFORMED BY: [facility] [address] [id number] PATHOLOGIST ACADEMIC GUIDANCE SPECIALIST TABITHA KONG M.D. Normal [facility] Comment on above: Performed By: #### C UU #### [facility] [address] Bacteria identified Cx Nom (U) [employer] Other XR hand LT min 3V*on 021 XR hand LT min 3V* [facility] [employer] [facility] [employer] Other XR hand LT min 3V* [facility] [address] [employer] [facility] [employer] Other XR hand LT min 3V* [address] [facility] [employer] Other XR hand LT min 3V* [place] [address] [employer] Other XR hand LT min 3V* XRay Report [employer] Other XR hand LT min 3V* Signed [employer] Other XR hand LT min 3V* Patient: Noble Santiago MR#: [id number] [employer] Other XR hand LT min 3V* 7804 [employer] Other XR hand LT min 3V* : 1985 Acct:[id number] [employer] Other XR hand LT min 3V* Age/Sex: 36 / F ADM Date: 10/02/21 [employer] Other XR hand LT min 3V* Loc: XDUCLY Room: Type: REG CLI [employer] Other XR hand LT min 3V* Attending Dr: Sera ALFORD [employer] Other XR hand LT min 3V* Ordering Provider: PRASHANTH Jordan [employer] Other XR hand LT min 3V* Date of Service: 10/02/21 [employer] Other XR hand LT min 3V* XR/XR hand LT min 3V*: Finger pain, left [employer] Other XR hand LT min 3V* Copies to: PRASHANTH Jordan [employer] Other XR hand LT min 3V* 3 viewsLEFT hand plain film [employer] Other XR hand LT min 3V* COMPARISON:None N [facility] [employer] Other XR hand LT min 3V* HISTORY:LEFT hand injury [employer] Other XR hand LT min 3V* No fracture, dislocation or focal soft tissue abnormality seen. [employer] Other XR hand LT min 3V* XR/XR hand LT min 3V* [employer] Other XR hand LT min 3V* IMPRESSION:No acute findings [employer] Other XR hand LT min 3V* Impression dictated by: Fuda Swain M.D.10/02/2021 6:01 PM [employer] Other XR hand LT min 3V* Dictation Location: [facility]--03 [employer] Other XR hand LT min 3V* Transcribed By: PWS 10/02/21 1801 [employer] Other XR hand LT min 3V* Dictated By: Fuad Swain DO 10/02/21 1759 [employer] Other XR hand LT min 3V* Signed By: [employer] Other XR hand LT min 3V* 10/02/[address] [place] [address] [employer] Other Automated basophil %on 11-25 Basophils/100 WBC (Bld) 1.0 % [facility] Automated basophil counton 0 11-25-2020 Basophils (Bld) [#/Vol] 0.1 10*3/uL 0.0-0.2 [facility] [facility] Autom[facility] blood lymphocyte c ount (number/volume)on 11-25-2020 Lymphocytes (Bld) [#/Vol] 2.2 10*3/uL 1.00-4.8 [facility] Automated blood lymphocyte c ount as percentage of total leukocyteson 11-25-2020 Lymphocytes/100 WBC (Bld) 29.2 % [facility] Automated blood monocyte cou nton 11-25-2020 Monocytes (Bld) [#/Vol] 0.4 10*3/uL 0.0-0.8 [facility] Automated blood platelet cou nt (count/volume)on 11-25-2020 Platelets (Bld) [#/Vol] 247 10*3/uL 150-450 [facility] Automated blood platelet ton n volume measurementon 11-25-2020 Platelet mean volume (Bld) [Entitic vol] 8.8 fL 6.3-10.7 [facility] Automated eosinophil %on Eosinophils/100 WBC (Bld) 1.1 % [facility] Automated eosinophil counton 11-25-2020 Eosinophils (Bld) [#/Vol] 0.1 10*3/uL 0.0-0.45 [facility] Automated erythrocyte distri bution width ratioon 11-25-2020 Erythrocyte distribution width (RBC) [Ratio] 13.3 % 11.9-15.3 [facility] Automated erythrocyte mean c orpuscular hemoglobin (mass per erythrocyte)on 11-25-2020 MCH (RBC) [Entitic mass] 29.2 pg 24.7-34.3 [facility] Automated erythrocyte mean c orpuscular hemoglobin concentration measurement (mass/volon 11-25-2020 MCHC (RBC) [Mass/Vol] 33.6 g/dL 32.0-35.0 [facility] Automated erythrocyte mean c orpuscular volumeon 11-25-2020 MCV (RBC) [Entitic vol] 87.0 fL 80-100 [facility] Automated monocyte %on 11-25 Monocytes/100 WBC (Bld) 5.4 % [facility] Automated neutrophil %on Neutrophils/100 WBC (Bld) 63.3 % [facility] Blood erythrocytes automated count (number/volume)on 11-25-2020 RBC (Bld) [#/Vol] 4.64 10*6/uL 3.60-5.00 [facility] Blood hemoglobin measurement (mass/volume)on 11-25-2020 Hemoglobin (Bld) [Mass/Vol] 13.6 g/dL 11.8-15.4 [facility] Blood leukocytes automated c ount (number/volume)on 11-25-2020 WBC (Bld) [#/Vol] 7.7 10*3/uL 3.8-11.6 [facility] Blood neutrophil count by au tomated method (number/volume)on 11-25-2020 Neutrophils (Bld) [#/Vol] 4.9 10*3/uL 1.8-7.7 [facility] COVID-19 Positive/Negativeon 11-25-2020 COVID-19 Positive/Negative Negative Negative [facility] Comment on above: Testing for SARS-CoV -2 by RT-PCRThis test was developed and its performance characteristics determined by [employer] ([employer]) and validated at the [facility]. This test has not been FDA cleared [...] among non-blacks MDRD (S/P/Bld) [Vol rate/Area] mL/min/{1.73_m2} [facility] Hematocrit [Volume Fraction] of Blood by Automated counton 11-25-2020 Hematocrit (Bld) [Volume fraction] 40.4 % 34.0-46.4 [facility] Otheron 11-25-2020 Coronavirus 2019 PCR Interp N/A [facility] GFR/1.73 sq M.predicted MDRD (S/P/Bld) [Vol rate/Area] mL/min/{1.73_m2} [facility] Comment on above: GFR estimated refere nce range: According to KDOQI guidelines, <60 ml/min/1.73m2 is sufficient to diagnose a patient with chronic kidney disease. Nucleated RBC/100 WBC (Bld) [Ratio] 0.0 % 0-0.5 [facility] Pharmacy Creatinine Clearance (Chem N/A [facility] Serum or plasma calcium eleni urement (mass/volume)on 11-25-2020 Calcium [Mass/Vol] 9.3 mg/dL 8.2-10.2 [facility] Serum or plasma chloride ton surement (moles/volume)on 11-25-2020 Chloride [Moles/Vol] 104 mmol/L 95-114 [facility] Serum or plasma creatinine m easurement with calculation of estimated glomerular filtron 11-25-2020 Creatinine [Mass/Vol] 0.76 mg/dL 0.44-1.03 [facility] Serum or plasma glucose eleni urement (mass/volume)on 11-25-2020 Glucose [Mass/Vol] 96 mg/dL 70-100 [facility] Comment on above: ADA recommended refe rence rangeRandom Glucose Reference Range is dependent on time and content of last meal. Glucose of more than 200 mg/dL in a nonstressed, ambulatory subject supports the diagnosis of Diabetes Mellitus. Serum or plasma potassium me asurement (moles/volume)on 11-25-2020 Potassium [Moles/Vol] 4.1 mmol/L 3.5-5.1 [facility] Serum or plasma sodium measu rement (moles/volume)on 11-25-2020 Sodium [Moles/Vol] 138 mmol/L 136-146 [facility] Serum or plasma total carbon dioxide measurement (moles/volume)on 11-25-2020 CO2 [Moles/Vol] 24.6 mmol/L 22.0-30.0 [facility] Serum or plasma urea nitroge n measurement (mass/volume)on 11-25-2020 Urea nitrogen [Mass/Vol] 6 mg/dL 9-23 [facility] COVID-19 SOFIAon 10-27-2020 COVID-19 MINERVA Negative Negative [facility] Comment on above: This is a duplicate test result based off of the Minerva SARS Antigen (LIZ) test performed within the Microbiology department. Otheron 10-27-2020 SARS Antigen (LFIA) [facility] Albumin [Mass/volume] in Ser um or Plasmaon 09-12-2020 Albumin [Mass/Vol] 3.9 g/dL 3.2-5.5 [facility] Cholesterol [Mass/volume] in Serum or Plasmaon 09-12-2020 Cholesterol [Mass/Vol] 175 mg/dL 140-200 [facility] Comment on above: Chol less than 200 m g/dl low riskChol 201-239 mg/dl borderline riskChol 240 mg/dl and greater high risk Cholesterol in LDL [Mass/vol ume] in Serum or Plasma by calculationon 09-12-2020 Cholesterol in LDL [Mass/Vol] 74 mg/dL 0-100 [facility] Comment on above: LDL ATP III CLASSIFI CATIONLDL less than 100 mg/dL OptimalLDL 100-129 mg/dL Near or above optimalLDL 130-159 mg/dL Borderline highLDL 160-189 mg/dL HighLDL greater than 189 mg/dL Very high Cholesterol in VLDL [Mass/vo lume] in Serum or Plasma by calculationon 09-12-2020 Cholesterol in VLDL [Mass/Vol] 44 mg/dL [facility] Estimated glomerular filtrat ion rate (GFR) non- Americanon 09-12-2020 GFR/1.73 sq M predicted among non-blacks MDRD (S/P/Bld) [Vol rate/Area] mL/min/{1.73_m2} [facility] Metabolic Panelon 09-12-2020 Glucose [Mass/Vol] 81 mg/dL 70-100 [facility] Otheron 09-12-2020 GFR/1.73 sq M.predicted MDRD (S/P/Bld) [Vol rate/Area] mL/min/{1.73_m2} [facility] Comment on above: GFR estimated refere nce range: According to KDOQI guidelines, <60 ml/min/1.73m2 is sufficient to diagnose a patient with chronic kidney disease. Pharmacy Creatinine Clearance (Chem N/A [facility] Protein [Mass/volume] in Ser um or Plasmaon 09-12-2020 Protein [Mass/Vol] 6.5 g/dL 6.1-7.9 [facility] Serum globulin measurement b y calculation (mass/volume)on 09-12-2020 Globulin (S) [Mass/Vol] 2.6 g/dL [facility] Serum or plasma alanine rizvi otransferase measurement without P-5'-P (enzymatic activion 09-12-2020 ALT No additional P-5'-P [Catalytic activity/Vol] 22 U/L 10-60 [facility] Serum or plasma albumin/glob ulin mass ratioon 09-12-2020 Albumin/Globulin [Mass ratio] 1.5 {ratio} [facility] Serum or plasma alkaline katherine sphatase measurement (enzymatic activity/volume)on 09-12-2020 ALP [Catalytic activity/Vol] 76 U/L 32-92 [facility] Serum or plasma aspartate am inotransferase measurement (enzymatic activity/volume)on 09-12-2020 AST [Catalytic activity/Vol] 18 U/L 10-42 [facility] Serum or plasma calcium eleni urement (mass/volume)on 09-12-2020 Calcium [Mass/Vol] 9.3 mg/dL 8.2-10.2 [facility] Serum or plasma chloride ton surement (moles/volume)on 09-12-2020 Chloride [Moles/Vol] 101 mmol/L 95-114 [facility] Serum or plasma creatinine m easurement with calculation of estimated glomerular filtron 09-12-2020 Creatinine [Mass/Vol] 0.67 mg/dL 0.44-1.03 [facility] Serum or plasma high density lipoprotein (HDL) cholesterol measurementon 09-12-2020 Cholesterol in HDL [Mass/Vol] 57 mg/dL 35-85 [facility] Comment on above: HDL CHOL ATP-III CLA SSIFICATION Cardiovascular RiskHDL > or equal to 60 mg/dL LOWHDL < 40 mg/dL HIGH Serum or plasma potassium me asurement (moles/volume)on 09-12-2020 Potassium [Moles/Vol] 3.9 mmol/L 3.5-5.1 [facility] Serum or plasma sodium measu rement (moles/volume)on 09-12-2020 Sodium [Moles/Vol] 136 mmol/L 136-146 [facility] Serum or plasma total biliru bin measurement (mass/volume)on 09-12-2020 Bilirubin [Mass/Vol] 0.5 mg/dL 0.3-1.2 [facility] Serum or plasma total carbon dioxide measurement (moles/volume)on 09-12-2020 CO2 [Moles/Vol] 23.4 mmol/L 22.0-30.0 [facility] Serum or plasma total choles terol/high density lipoprotein (HDL) cholesterol mass yany 09-12-2020 Cholesterol.total/Ch olesterol in HDL [Mass ratio] 3.1 {ratio} [facility] Serum or plasma urea nitroge n measurement (mass/volume)on 09-12-2020 Urea nitrogen [Mass/Vol] 7 mg/dL 07-23 [facility] Triglyceride [Mass/volume] i n Serum or Plasmaon 09-12-2020 Triglyceride [Mass/Vol] 220 mg/dL 35-149 [facility] Comment on above: TRIG ATP III CLASSIF ICATIONTRIG less than 150 mg/dL NormalTRIG 150-199 mg/dL Borderline highTRIG 200-500 mg/dL High TRIG greater than 500 mg/dL Very highStandard traceable to the Center for Disease Conrtrol and Prevention (CDC) test method. Vital Signs Date Time Vital Sign Value Performing Clinician Facility 10-17-2023 16:30-0500 Body height 162.56 cm Ml Chisholm Other [facility] Other 10-17-2023 16:30-0500 Body mass index (BMI) [Ratio] 34.67 kg/m2 Ml Chisholm Other [facility] Other 10-17-2023 16:30-0500 Body weight 91.63 kg Ml Chisholm Other [facility] Other 10-17-2023 16:30-0500 Diastolic blood pressure 71 mm[Hg] Ml Chisholm Other [facility] Other 10-17-2023 16:30-0500 Respiratory rate 18 /min Ml Chisholm Other [facility] Other 10-17-2023 16:30-0500 SaO2% (BldA) [Mass fraction] 96 % Ml Chisholm Other [facility] Other 10-17-2023 16:30-0500 Systolic blood pressure 112 mm[Hg] Ml Chisholm Other [facility] Other 08-10-2023 11:55-0400 Body height 162.56 cm Sera Lares Other [facility] Other 08-10-2023 11:55-0400 Body mass index (BMI) [Ratio] 37.24 kg/m2 Sera Lares Other [facility] Other 08-10-2023 11:55-0400 Body temperature 97.7 [degF] Sera Lares Other [facility] Other 08-10-2023 11:55-0400 Body weight 98.43 kg Sera Lares Other [facility] Other 08-10-2023 11:55-0400 Respiratory rate 18 /min Sera Lares Other [facility] Other 08-10-2023 11:55-0400 SaO2% (BldA) [Mass fraction] 98 % Sera Lares Other [facility] Other 09-08-2022 10:30-0500 Body height 162.56 cm Marleni Jordan Other [facility] Other 09-08-2022 10:30-0500 Body mass index (BMI) [Ratio] 34.93 kg/m2 Marleni Missler Other [facility] Other 09-08-2022 10:30-0500 Body weight 92.31 kg Marleni Missler Other [facility] Other 09-08-2022 10:30-0500 Diastolic blood pressure 77 mm[Hg] Marleni Missler Other [facility] Other 09-08-2022 10:30-0500 Respiratory rate 18 /min Marleni Missler Other [facility] Other 09-08-2022 10:30-0500 SaO2% (BldA) [Mass fraction] 96 % Marleni Missler Other [facility] Other 09-08-2022 10:30-0500 Systolic blood pressure 117 mm[Hg] Marleni Missler Other [facility] Other 09-02-2022 15:00-0400 Body height 162.56 cm Ame Patelault Other [facility] Other 09-02-2022 15:00-0400 Body mass index (BMI) [Ratio] 34.5 kg/m2 Ame Nik Other [facility] Other 09-02-2022 15:00-0400 Body temperature 98.6 [degF] Ame Nik Other [facility] Other 09-02-2022 15:00-0400 Body weight 91.17 kg Ame Nik Other [facility] Other 09-02-2022 15:00-0400 Diastolic blood pressure 82 mm[Hg] Ame Nik Other [facility] Other 09-02-2022 15:00-0400 Respiratory rate 18 /min Ame Nik Other [facility] Other 09-02-2022 15:00-0400 SaO2% (BldA) [Mass fraction] 86 % Ame Ortiz Other [facility] Other 09-02-2022 15:00-0400 Systolic blood pressure 129 mm[Hg] Ame Ortiz Other [facility] Other 07-10-2022 12:10-0400 Body height 162.56 cm Ame Ortiz Other [facility] Other 07-10-2022 12:10-0400 Body mass index (BMI) [Ratio] 33.91 kg/m2 Ame Ortiz Other [facility] Other 07-10-2022 12:10-0400 Body temperature 98.6 [degF] Ame Ortiz Other [facility] Other 07-10-2022 12:10-0400 Body weight 89.63 kg Ame Ortiz Other [facility] Other 07-10-2022 12:10-0400 Diastolic blood pressure 81 mm[Hg] Ame Ortiz Other [facility] Other 07-10-2022 12:10-0400 Respiratory rate 18 /min Ame Ortiz Other [facility] Other 07-10-2022 12:10-0400 SaO2% (BldA) [Mass fraction] 98 % Ame Ortiz Other [facility] Other 07-10-2022 12:10-0400 Systolic blood pressure 132 mm[Hg] Ame Ortiz Other [facility] Other 05-24-2022 17:00-0400 Body height 162.56 cm Ame Ortiz Other [facility] Other 05-24-2022 17:00-0400 Body mass index (BMI) [Ratio] 34.67 kg/m2 Ame Ortiz Other [facility] Other 05-24-2022 17:00-0400 Body temperature 98 [degF] Ame Ortiz Other [facility] Other 05-24-2022 17:00-0400 Body weight 91.63 kg Ame Ortiz Other [facility] Other 05-24-2022 17:00-0400 Diastolic blood pressure 70 mm[Hg] Ame Ortiz Other [facility] Other 05-24-2022 17:00-0400 Respiratory rate 18 /min Ame Ortiz Other [facility] Other 05-24-2022 17:00-0400 SaO2% (BldA) [Mass fraction] 99 % Ame Ortiz Other [facility] Other 05-24-2022 17:00-0400 Systolic blood pressure 122 mm[Hg] Ame Ortiz Other [facility] Other 10-02-2021 18:20-0500 Body height 162.56 cm Sera Lares Other [facility] Other 10-02-2021 18:20-0500 Body mass index (BMI) [Ratio] 35.01 kg/m2 Sera Lares Other [facility] Other 10-02-2021 18:20-0500 Body temperature 98.2 [degF] Sera Lares Other [facility] Other 10-02-2021 18:20-0500 Body weight 92.53 kg Sera Lares Other [facility] Other 10-02-2021 18:20-0500 Diastolic blood pressure 81 mm[Hg] Sera Lares Other [facility] Other 10-02-2021 18:20-0500 Respiratory rate 18 /min Sera Lares Other [facility] Other 10-02-2021 18:20-0500 SaO2% (BldA) [Mass fraction] 99 % Sera Lares Other [facility] Other 10-02-2021 18:20-0500 Systolic blood pressure 118 mm[Hg] Sera Lares Other [facility] Other 08-22-2021 15:15-0400 Body height 162.56 cm Christiana Ginty Other [facility] Other 08-22-2021 15:15-0400 Body mass index (BMI) [Ratio] 34.33 kg/m2 Christiana Ginty Other [facility] Other 08-22-2021 15:15-0400 Body weight 90.72 kg Christiana Ginty Other [facility] Other Encounters Encounter Date Encounter Type Care Provider Facility Start: 11-16-2023 End: 11-16-2023 ambulatory CHELSEA Urias Available Start: 10-26-2023 End: 10-26-2023 ambulatory LUIS EDUARDO NARANJOO Not Available Start: 10-17-2023 End: 10-17-2023 ambulatory Ml Chisholm Other [facility] Other Start: 10-17-2023 Office outpatient visit 15 minutes Ml Chisholm [facility] Start: 08-10-2023 End: 08-10-2023 ambulatory Sera Smallwoodmond Other [facility] Other Start: 08-10-2023 Office outpatient visit 15 minutes Sera Luda [facility] Start: 04-16-2023 End: 04-17-2023 ambulatory Ame Ortiz Facility:[facility] Start: 02-02-2023 End: 02-03-2023 ambulatory AME ORTIZ Facility: Start: 01-26-2023 ambulatory AME ORTIZ Facil ity:[facility] Start: 01-17-2023 End: 01-18-2023 ambulatory AME ORTIZ Facility:[facility] Start: 01-17-2023 End: 01-17-2023 Lab Drop off AME ORTIZ [facility] Start: 12-16-2022 End: 12-16-2022 ambulatory Cong Cobian Facility:[facility] Start: 10-31-2022 End: 10-31-2022 ambulatory Alexis Lincoln Facility:[facility] Start: 10-31-2022 End: 10-31-2022 ambulatory PHYSICIAN NO [facility] Work Phone: Start: 10-31-2022 End: 10-31-2022 Patient encounter procedure PHYSICIAN NO [facility]-Self Pay Exercise Program Start: 10-23-2022 End: 10-23-2022 ambulatory FARHEEN CAMACHO . Facility:[facility] Start: 10-13-2022 End: 10-13-2022 ambulatory Lambert Gavin Facility:[facility] Start: 10-13-2022 End: 10-13-2022 Patient encounter procedure PHYSICIAN NO [facility]-MRI [facility] [place] Work Phone: Start: 10-13-2022 Registered Recurring PHYSICIAN NO [facility]-Weight Management Work Phone: Start: 10-12-2022 End: 10-12-2022 ambulatory PHYSICIAN NO [facility] Work Phone: Start: 10-12-2022 End: 10-12-2022 Patient encounter procedure PHYSICIAN NO [facility] [place] Start: 10-11-2022 Registered Recurring PHYSICIAN NO NITZA [facility]-Weight Management Start: 10-11-2022 End: 10-11-2022 ambulatory Marleni Jordan Other [facility] Other Start: 10-11-2022 Telephone encounter Marleni Jordan [facility] Start: 09-29-2022 End: 09-29-2022 ambulatory Abhi Finney Facility:[facility] Start: 09-15-2022 End: 09-16-[address] DOCTOR LANDEROS Facility: Start: 09-08-2022 End: 09-08-2022 ambulatory Marleni Jordan Other [facility] Other Start: 09-08-2022 Nutrition therapy Marleni Jordan [facility] Start: 09-02-2022 End: 09-02-2022 ambulatory Ame Ortiz Other [facility] Other Start: 09-02-2022 Office outpatient visit 15 minutes Ame Ortiz [facility] Start: 08-02-2022 End: 08-02-2022 ambulatory Debra Celestin Other [facility] Other Start: 08-02-2022 Telephone encounter Debra Celestin [facility] Start: 07-14-2022 End: 07-14-2022 ambulatory Ame Nik Facility:[facility] Start: 07-10-2022 End: 07-10-2022 ambulatory Amepatrick Ortiz Other [facility] Other Start: 07-10-2022 Office outpatient visit 15 minutes Ame Nik [facility] Start: 07-07-2022 End: 07-08-[address] CONOR BEAL Facility: Start: 06-26-2022 End: 06-26-2022 ambulatory Amepatrick Ortiz Other [facility] Other Start: 06-26-2022 Telephone encounter Ame Breaul t [facility] Start: 05-24-2022 End: 05-24-2022 Departed Referred OFFICE ENGINEER-C Ame Nik Work Phone: [facility]Lab [facility] [place] Start: 05-24-2022 End: 05-24-2022 ambulatory Ame Patelault [facility] Other Start: 05-24-2022 Office outpatient visit 15 minutes Ame Nik [facility] Start: 05-19-2022 End: 05-19-2022 ambulatory Ame Nik Other [facility] Other Start: 05-19-2022 Telephone encounter Ame Breaul t [facility] Start: 05-11-2022 ambulatory BRITNISHREE GRANT Facilit y:[facility] Start: 12-11-2021 End: 12-11-2021 ambulatory Ame Nik Other [facility] Other Start: 12-11-2021 Telephone encounter Ame Breaul t [facility] Start: 10-02-2021 End: 10-02-2021 ambulatory Sera Lares Other [facility] Other Start: 10-02-2021 Office outpatient visit 15 minutes Sera Lares [facility] Start: 08-22-2021 End: 08-22-2021 ambulatory Christiana Martel Other [facility] Other Start: 08-22-2021 Office outpatient visit 15 minutes Christiana Martel [facility] Start: 11-25-2020 End: 11-25-2020 Patient encounter procedure Kit Reyes ([facility]) -Pre-Surgical Testing Start: 10-27-2020 End: 10-27-2020 Patient encounter procedure Kit Reyes ([facility]) -[place] COVID Testing Start: 09-12-2020 End: 09-12-2020 Departed Referred Kit Reyes ([facility]) -[facility] RT 250 Procedures Date Procedure Procedure Detail Performing Clinician Start: 10-13-2022 MRI of head PHYSICIAN NO FAMILY Start: 10-27-2020 SARS Antigen (LFIA) Nirmal sydney Reyes ([facility]) Cholecystectomy AME HI Dilation and curettage NAA ORTIZ Nasal sinus structur e (body structure) AME ORTIZ Tonsillectomy AME LEE Urine culture OFFICE ENGINEER-C Sil Ortiz Work Phone: wisdom teeth AME WARNER LT Immunizations Immunization Date Immunization Notes Care Provider Nitza kumar 11-22-2021 COVID-19 Vaccine Moderna - Documentation Purposes Only Ame Ortiz Other [facility] Other Payers Date Payer Category Payer Private Health Insurance 2022 Unknown 2022 Self-pay [id number] 1986 Unknown [id number] 2.16.8 [id number] 1986 Unknown [id number] 2.16.84 [id number] 1986 Unknown [id number] 2.16.84 [id number] 1986 Unknown [id number] 2.16.84 [id number] 1986 Unknown [id number] 2.16.84 [id number] 1986 Unknown [id number] 2.16.84 [id number] 1986 Unknown [id number] 2.16.84 [id number] 1986 Unknown [id number] 2.16.84 [id number] 1986 Unknown [id number] 2.16.8 [id number] 1986 Unknown [id number] 2.16.84 [id number] 1985 Unknown [id number] 2.16.84 [id number] 1985 Unknown [id number] 2.16.840 .[id number] 1959 Private Health Insurance [id number] Private Health Insurance [id number] Unknown [id number] Unknown [id number] Unknown [id number] Social History Date Type Detail Facility Start: 06-28-2019 End: 11-25-2020 Tobacco smoking status NHIS Never smoked tobacco (finding) [facility] Start: 1985 Sex Assigned At Female F [facility] Sex Assigned At [facility] Tobacco smoking status Never Dwighte [facility] Medical Equipment Procedure Code Equipment Code Equipment [...] while sleeping. questions and concerns were addressed [facility] Other 10-11-2023 Evaluation note* Encounter Date Diagnosis [...] no improvement in 2 to 3 days [facility] Other 03-20-2023 Evaluation + Plan note Diagnostic Tests Pending * FSH and LH 01/17/23 [facility]02-16-2023 NotePatient Education Materials Follows: Otitis Media, [...] Follow these instructions at home: ? Take [id number] and prescription medicines only as told by [...] provider. Document Revised: 01/25/2022 Document Reviewed: 01/25/2022 [employer] Patient Education ? 2021 [id number] Note Patient Education Materials Follows:[id number] Evaluation note * Encounter Date Diagnosis Assessment [...] medication before and did have stomach upset [facility] Other 11-03-2022 Evaluation note* Encounter Date Diagnosis Assessment Notes Treatment Notes Treatment Clinical Notes Aug, Dizziness (ICD-10 - R42) Aug, History of reactive hypoglycemia (ICD-10 - Z86.39) Start with keeping journal of symptoms. Take blood sugars when you experience symptoms. [facility] Other 09-10-2022 Evaluation note* Encounter Date Diagnosis Assessment Notes Treatment Notes Treatment Clinical Notes Jul, Intractable migraine without aura and without status migrainosus (ICD-10 - G43.019) Take medication as directed. Stay away from known triggers. Follow up with primary care provider or neurology if symptoms persist. Phenergan and Toradol Im given in office. Explained medication will cause drowsiness. [facility] Other 08-27-2022 Evaluation note* Encounter Date Diagnosis Assessment Notes Treatment Notes Treatment Clinical Notes May, Migraine aura without headache (ICD-10 - G43.109) [facility] Other 07-25-2022 Evaluation note* Encounter Date Diagnosis [...] (ICD-10 - G43.109) Continue medication as needed [facility] Other 12-03-2021 Evaluation note* Encounter Date Diagnosis [...] no improvement in 5 to 7 days [facility] Other 10-23-2021 Evaluation note* Encounter Date Diagnosis [...] Patient care instructions given in writting by [facility] Care At Home document [employer] Other Evaluation noteNo InformationNort KAL Other Evaluation noteNo assessment information available [facility] Work Phone: [employer] general Narrative - Reported* Type Description Date Medical History bipolar depression Medical History hx stomach ulcers Medical History migraine headaches Surgical History T&A 1997 Surgical History [place] Teeth 2005 Surgical History Keloid Scar from [...] Surgical History hysterectomy Hospitalization History See Above [employer] Other Hiszmnl general Narrative - Reported* Type Description Date Medical History bipolar depression Medical History hx stomach ulcers Medical History migraine headaches Medical History IBS Medical History chronic depression Medical History anxiety Medical History Gestational diabetes - yes Medical History PCOS Medical History Esophageal reflux Medical History fatigue Medical History lactose intolerance Medical History obesity Surgical History T&A 1997 Surgical History [place] Teeth 2005 Surgical History Keloid Scar from [...] reconstruction 2 021 Hospitalization History See Above [employer] Other Hiswjhm general Narrative - Reported* Type Description Date Medical History bipolar depression Medical History hx stomach ulcers Medical History migraine headaches Medical History IBS Medical History chronic depression Medical History anxiety Medical History Gestational diabetes - yes Medical History PCOS Medical History Esophageal reflux Medical History fatigue Medical History lactose intolerance Medical History obesity Surgical History T&A 1998 Surgical History [place] Teeth 2005 Surgical History Keloid Scar from [...] reconstruction 2 021 Hospitalization History See Above [employer] Other Hospital course Narrative No data available for this section [facility] No data available for this section [facility] No data available for this section [facility] Advance Directives No Advanced Directives Records Found Advance Directive Response Recorded Date/ Time Advance Directives No April 08 0 6:58am Advance Directive Response Recorded Date/ Time Advance Directives No April 08 0 7:58am Chief Complaint and Reason for Visit [facility] Dysmenorrhea,Dyspareunia,Abnormal Uterine Bleeding Chief Complaint [...] Member Role Status Dates Ame Nik , OFFICE ENGINEER-C Primary Care Provider Active Lambert Gavin DO Attending Provider Active Goals (unrecognized section and content) Goals may be documented in a n alternate section INFORMATION SOURCE (unrecogn ized section and content) DATE CREATED AUTHOR 12/17/2022 [facility] DATE CREATED AUTHOR AUTHOR'S ORGANIZ ATION 01/22/2023 [facility] DATE CREATED AUTHOR AUTHOR'S ORGANIZ ATION 02/12/2023 [facility] DATE CREATED AUTHOR AUTHOR'S ORGANIZ ATION 04/20/2023 [facility] DATE CREATED AUTHOR AUTHOR'S ORGANIZ ATION 11/17/2023 [facility] FOR RECORDS PERTAINING TO PATIENTS WHO ARE [...] BE BASED ON THE PRIMARY CLINICAL RECORDS. [facility] [employer] [facility]. provides no warranty or guarantee of the accuracy or completeness of information in this document.
[2023-12-08 06:32] LABS: Basophils Percent Auto 0.4 % (0.2-2.0); Eosinophils Absolute Auto 0.1 10^3/uL (0.0-0.7); Eosinophils Percent Auto 1.1 % (0.9-7.0); Hematocrit 41.6 % (36.0-48.0); Hemoglobin 13.9 g/dL (12.0-16.0); Immature Granulocytes Abs Auto 0.01 10^3/uL (0.00-0.03); Immature Granulocytes Pct Auto 0.1 % (0.0-0.5); Lymphocytes Absolute Auto 3.5 10^3/uL (1.2-3.8); Mean Corpuscular HGB Conc 33.4 g/dL (29.9-35.2); Mean Corpuscular Volume 86.7 fL (81.0-99.0); Mean Platelet Volume 10.6 fL (9.5-13.5); Monocytes Absolute Auto 0.6 10^3/uL (0.3-0.8); Monocytes Percent Auto 5.5 % (1.7-12.0); Neutrophils Absolute Auto 5.7 10^3/uL (1.4-6.5); Neutrophils Percent Auto 57.9 % (43.0-75.0); Platelet Count 256 10^3/uL (150-450); Red Cell Distribution Width 12.4 % (11.0-15.0); White Blood Count 9.9 10^3/uL (4.0-11.0)
[2023-12-08] MEDS: ACETAMINOPHEN 500 MG TABLET 1000 MG PO ×2 (06:42→19:49)
[2023-12-08] MEDS: CELECOXIB 200 MG CAPSULE PO (06:42)
[2023-12-08] MEDS: PREGABALIN 75 MG CAPSULE PO ×2 (06:42→22:29)
[2023-12-08] MEDS: FAMOTIDINE 20 MG TABLET PO (06:42)
[2023-12-08 06:47] LABS: Glucometer 109 mg/dL (74-106)
[2023-12-08] MEDS: LACTATED RINGER'S SOLUTION 1,000 ML 50 ML IV ×3 (07:04→14:31)
--- NOTE | 2023-12-08 07:57 | PC.NURSE ---
Patient was consented per Dr. Carlson for block. Timeout was performed. Patient positioned with O2 placed along with monitors. Patient was medicated per Dr. Carlson. Bedside ultrasound was used to locate nerve per Dr. Carlson. Block was completed and patient tolerated very well. Vitals pre were bp 113/75 Pulse 75 Pulse Ox 98% Respirations 18. Post procedure vitals BP 90/48 Pulse 76 Pulse Ox 96% Respirations 12. Patient remains on the monitor until she is taken to OR.
[2023-12-08] MEDS: CEFAZOLIN SODIUM/DEXTROSE,ISO 2 GM/50 ML PIGGYBACK IV ×2 (08:01→16:52)
[2023-12-08] MEDS: THROMBI-GEL SIZE 40 HEMOSTAT 1 EACH TOPICAL (10:15)
--- NOTE | 2023-12-08 11:48 | P.ORON_ITS ---
Brief Operative Note Date of procedure: 12/08/23 Pre-op diagnosis: Right PTTD, DJD, varus FF, Valgus RF, equinus, possible ankle instablility Post-op diagnosis: other (Right posterior tibial tendon dysfunction, subtalar joint arthritis, forefoot varus, rearfoot valgus, equinus, peroneal tendinitis) Procedure: PROCEDURES PERFORMED: right subtalar joint fusion, medial displacement calcaneal osteotomy, cotton osteotomy, posterior tibial tendon repair, peroneal tendon synovectomy, gastrocnemius recession, application of short leg splint and stress examination under intraoperative fluoroscopy INDICATION FOR PROCEDURE: patient is a 38-year-old female well known to my practice who previously underwent left foot reconstruction for a similar issue however 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 She initially was treated nonoperatively for posterior tibial tendon dysfunction with physical therapy, bracing, stretching, shoe and activity modification without help. She has been very happy with the outcome of her left foot and wish to proceed with surgical reconstruction. I explained that although findings were similar slightly different given the arthrosis of the subtalar joint therefore fusion was indicated in addition to osteotomies and soft tissue repairs and releases. Patient understood the potential risks and benefits of surgical treatment and all questions were answered to her satisfaction. INTRAOPERATIVE FINDINGS: ankle joint dorsiflexion was limited to neutral but not past the knee flexed and extended. Hindfoot varus semi-reducible with arthrosis of the subtalar joint associated with middle facet coalition. Bone quality is within normal limits. Flexible forefoot varus was noted. Posterior tibial tendon with chronic tears, scar and adhesions. Peroneal tendons were without tear but did have surrounding synovitis. Ankle collateral ligaments were within normal limits and notably stable under stress examination PROCEDURE IN DETAIL: Patient was identified in pre op and consent was reviewed. Correct side and site were identified and marked. Pre-op antibiotics were started. Patient was brought to OR suite and place on table in a supine position. General anesthesia was administered. Tourniquet applied. Operative extremity was prepped and draped in usual sterile fashion. Formal time-out was performed and the foot/ankle were exsanguinated and tourniquet inflated. A longitudinal incision over the medial aspect of the calf two finger breadths posterior to the posterior aspect of tibia was performed. Combination sharp and blunt dissection with all bleeders being coagulated gained access to the gastrocnemius aponeurosis. Once the aponeurosis was isolated a speculum was inserted from the medial to lateral position just superficial to the aponeurosis. The speculum allowed full visualization of the aponeurosis and the foot was held in maximal dorsiflexed position. A fifteen blade was used to transversely incise the gastrocnemius fascia to two separate location (one proximal and one distal) followed by release of the soleus fascia. 10 degrees of ankle joint dorsiflexion was obtained. The area was flushed with copious sterile saline and skin was closed in layers. An incision from fibular malleolus to the cuboid was undertaken. Combination of sharp and blunt dissection gained access to the sinus tarsi. All bleeders were tied off or cauterized. EDB muscle was reflected and tagged for later approximation. Sinus tarsectomy was then performed. [employer] distractor was used to access the subtalar joint which was prepped with curettes, osteotomes, rongeurs and with 2.0 mm drill.The posterior and the middle facet were thoroughly prepped. Bone allograft (sparc) was packed into the joint. Guidewire was placed through a stab incision over the talar neck and was directed from the talar neck across the subtalar joint and into the calcaneus. Fluoroscopy confirmed proper placement. A 5.5 mm cannulated headless screw was placed accordingly and under fluoroscopic guidance. C-arm was used to identify safe incision placement over the lateral calcaneus anterior to the Achilles and plantar fascial attachments. Sharp and blunt dissection to the lateral calcaneus was performed. Sural nerve was not visualized but protected. A saw was used to create an osteotomy in line with the incision and the osteotomy was finished with an osteotome on medial cortex. A lamina spreaders was placed inside the osteotomy to stretch soft tissues. A 2 cm incision was placed over the posterior aspect of the calcaneus and two guidewires were drilled into the tuberosity but not across the osteotomy. The l carmelita spreaders were removed and with the foot plantarflexed and the knee bent the tuberosity was translated medially. I held the tuberosity in the corrected position while my department assistant advanced the previously placed guidewires. Fluoroscopic guidance was then checked to ensure proper placement of the guidewires. A 6.5 mm headless compression screw was placed over one of the wires across the osteotomy and subtalar joint into the talar body. Guide wires were then removed. A shelf of overhanging bone at the osteotomy site was smoothed with a rongeur and rasp. Fluoroscopy was used to identify the medial cuneiform. A longitudinal incision medial to the extensor hallucis longus tendon was performed. Combination sharp and blunt dissection gained access to the midportion of the medial cuneiform. C are was taken to identify the proximal and distal articular surfaces. A saw was used to perform an osteotomy from dorsal to plantar. K wires were placed on each side and the osteotomy in a distractor was placed over the K wires. Distraction was performed until forefoot varus and reduced. The amount of distracted was measured with ruler and trials for Cotton wedges. A 6 mm Cotton wedge was placed into the osteotomy. Distractor and K wires were removed after confirmation of wedge placement on fluoroscopy. the subtalar joint incision was then extended proximally over the fibular malleolus and a combination sharp and blunt dissection gained access to the peroneal tendons. The brevis was debrided of all synovitis and low lying muscle belly sharply. No tendon tear was noted. The tendon sheath was then repaired with absorbable suture after the surgical site was irrigated with copious saline. The subtalar joint incision and calcaneal osteotomy incision were then closed in layers and the tourniquet was deflated with a prompt hyperemic response. While the foot reperfused cotton incision was also closed in layers. After twenty minutes of reperfusion the tourniquet was then reinflated. Incision was placed over the posterior tibial tendon within the tarsal tunnel and comminution sharp blunt dissection gained access to the posterior tibial tendon sheath which was incised revealing thickened, scarred and adhesed posterior tibial tendon. Chronic tears and scar were debrided excisionally which is passed back table and sent as specimen. The posterior tibial tendon was then repaired with absorbable suture and the tendon sheath was also reapproximated. Surgical site was irrigated copiously and the incision was closed in layers. ankle joint was then stressed in varus, valgus and anterior drawer and was notably stable therefore no lateral ankle stabilization was performed. The tourniquet was dropped with a prompt hyperemic response.A dry sterile dressing consisting of Xeroform on the incisions followed by 4 x 4 gauze, ABDs, and Kerlix were applied. Multiple layers of cast padding were then applied to ensure all bony prominences were well-padded. A plaster posterior splint was then applied which was held in place by Musa wraps. Capillary refill time to all digits was evaluated and had appropriate response. Patient tolerated the procedure and anesthesia well transferred to the recovery room with vital signs stable and brisk capillary refill to digits. POSTOPERATIVE PLAN: Transfer to med/surg under hospitalist's care NWB operative foot/ankle Ice and elevation Harriett-op antibiotics, multimodal pain medication and DVT prophylaxis ordered Consults: physical therapy & health social work professor Estimated LOS 1-2 nights Will follow *NWB x 6-8 weeks Implants: Vilex screws [id number] Cotton wedge Sparc bone allograft Surgeon: Philip Guerra Crime Scene Evidence Technician: Brock Gama Estimated blood loss (mL): 50 Pathology: other (posterior tibial tendon) Condition: stable Disposition: observation
[2023-12-08 13:04] LABS: Glucometer 128 mg/dL (74-106)
--- NOTE | 2023-12-08 13:30 | XR_ITS ---
The [address] [address] Patient Name: NOBLE CASTILLO MRN: [id number] date: 1985 Sex: F Assigned Patient Location: [facility] Current Patient Location: [place] Accession/Order Number: [id number] Exam Date: 12/08/2023 13:15 Report Date: 12/08/2023 13:56 At the request of: ROGELIO LANDRY Procedure: XR foot RT min 3V PROCEDURE: XR ankle RT min 3V, XR foot RT min 3V COMPARISON: 09/28/2023 HISTORY: Postop x-ray FINDINGS: BONES:Postsurgical changes with posterior calcaneal osteotomy and subtalar fusion transfixed with 2 cannulated screws. Osteotomy and wedged spacer placement medial cuneiform. SOFT TISSUES:Postsurgical soft tissue swelling and subcutaneous emphysema EFFUSION:None visible. OTHER: Negative. XR/XR foot RT min 3V IMPRESSION: Postsurgical changes Electronically authenticated by: EZIO FOLEY Date: 12/08/2023 13:56
--- NOTE | 2023-12-08 13:30 | XR_ITS ---
The [address] [address] Patient Name: NOBLE CASTILLO MRN: [id number] date: 1985 Sex: F Assigned Patient Location: [facility] Current Patient Location: [place] Accession/Order Number: [id number] Exam Date: 12/08/2023 13:15 Report Date: 12/08/2023 13:56 At the request of: ROGELIO LANDRY Procedure: XR ankle RT min 3V PROCEDURE: XR ankle RT min 3V, XR foot RT min 3V COMPARISON: 09/28/2023 HISTORY: Postop x-ray FINDINGS: BONES:Postsurgical changes with posterior calcaneal osteotomy and subtalar fusion transfixed with 2 cannulated screws. Osteotomy and wedged spacer placement medial cuneiform. SOFT TISSUES:Postsurgical soft tissue swelling and subcutaneous emphysema EFFUSION:None visible. OTHER: Negative. XR/XR ankle RT min 3V IMPRESSION: Postsurgical changes Electronically authenticated by: EZIO FOLEY Date: 12/08/2023 13:56
[2023-12-08] MEDS: OXYCODONE HCL 5 MG TABLET PO (17:35)
[2023-12-08] MEDS: ENOXAPARIN SODIUM 40 MG/0.4 ML SYRINGE SUBQ (22:28)
[2023-12-08] MEDS: SERTRALINE HCL 100 MG TABLET PO (22:29)
[2023-12-09] MEDS: CEFAZOLIN SODIUM/DEXTROSE,ISO 2 GM/50 ML PIGGYBACK IV ×2 (00:10→07:49)
[2023-12-09] MEDS: OXYCODONE HCL 5 MG TABLET PO (00:12)
[2023-12-09 05:16] VITALS: BP 112/66; PULSE 97; RESP 18; TEMP 36.6; O2SAT 92
[2023-12-09] MEDS: ACETAMINOPHEN 500 MG TABLET 1000 MG PO (07:49)
[2023-12-09] MEDS: OXYCODONE HCL 15 MG TABLET PO (07:49)
--- NOTE | 2023-12-09 08:46 | CM.NOTE ---
Rounds made with Dr. Gutierrez. Potential plan for discharge later today.
--- NOTE | 2023-12-09 09:05 | PM.PN ---
Progress Note: Subjective Subjective Interval history: Patient seen at bedside this a.m. resting comfortably. POD #1 s/pRight subtalar joint fusion, excision of tarsal coalition, calcaneal osteotomy, cotton osteotomy, gastroc recession, stress exam under anesthesia, posterior tibial tendon debridement and repair DOS 12/08/2023. Denied any acute events overnight. States she did have some increase in pain this morning along the medial ankle however controlled with p.o. meds at this time. Denied any other acute lower extremity complaints at time of visit and denied any constitutional symptoms. Exam Narrative Exam Narrative: RLE dressing left CDI. CFT intact to digits. Skin temperature warm and symmetric without focal increase proximal distal to dressing. No erythema or ecchymosis approximately. Light touch and active range of motion of digits is decreased secondary to block. No open lesions proximal or distal to dressing. Compartment soft compressible, no pain with calf or thigh compression. Constitutional Vital Signs, click to edit/add: Last Vital Signs Temp 97.8 F 12/09/23 05:16 Pulse 97 H 12/09/23 05:16 Resp 18 12/09/23 05:16 BP 112/66 12/09/23 05:16 Pulse Ox 92 L 12/09/23 05:16 O2 Del Method Room Air 12/09/23 05:16 Progress Note: A&P Assessment and Plan (1) Osteoarthritis of right ankle and foot: (2) Equinus contracture of right ankle: (3) Eversion deformity of right foot: (4) Posterior tibial tendon dysfunction: (5) Postoperative pain: Plan Patient examined and evaluated. All findings discussed with patient all questions answered to patient's satisfaction. Pertinent labs and imaging reviewed. RLE splint to be left CDI until follow-up. Maintain strict nonweightbearing to right lower extremity. Please use crutches walker or knee scooter for assistance. PT on board. Postop home-going meds sent to pharmacy. Stable to AL home from podiatry's perspective given pain control on oral medications. She will follow-up with Dr. Guerra's office in 1 week. Rest per primary, please call with questions or concerns. Urinary Catheter Management Urinary Catheter Management Urethral: Cath placed during this visit: no
[2023-12-09] MEDS: LAMOTRIGINE 100 MG TABLET PO (09:20)
[2023-12-09] MEDS: PREGABALIN 75 MG CAPSULE PO (09:20)
[2023-12-09] MEDS: ENOXAPARIN SODIUM 40 MG/0.4 ML SYRINGE SUBQ (09:20)
[2023-12-09] MEDS: MELOXICAM 7.5 MG TABLET 15 MG PO (09:21)
[2023-12-09] MEDS: L. ACIDOPHILUS/L.BULGARICUS 1 PACKET GRAN.PACK PO (09:21)
[2023-12-09] MEDS: SERTRALINE HCL 100 MG TABLET PO (09:21)
--- NOTE | 2023-12-09 09:57 | P.HP_ITS ---
<Statement entered by James Gutierrez MD - 12/09/23 17:10> This documentation has been reviewed and approved. Patient seen and examined this morning. No complaints. Good pain control. Discussed her anxiety medications at some length and seems like they were corrected in the chart. Likely discharge home later today. Agree with input and diagnoses provided by nurse practitioner H&P: HPI History of Present Illness Chief complaint: SURGICAL OUTPATIENT Narrative: 12/09/23 0607 This is a 38-year-old female patient with a past medical history as outlined below including depression, migraine headaches, and chronic right ankle deformities and instability; who underwent right ankle surgical repair yesterday per Dr Guerra and was admitted to observation overnight for postoperative monitoring and pain management. Please see Dr Guerra's operative note and outpatient documentation for the patient's medical course leading to this surgical intervention. At the time of my exam the patient is resting comfortably in bed. She reports that her pain is adequately controlled and she denies any nausea and vomiting postoperatively. She reports that she is comfortable using the knee scooter and is ready to be discharged. Her exam is unremarkable. As podiatry confirms that discharge is indicated she will be discharged home in stable condition. All postoperative medications including pain and nausea management have already been prescribed by the podiatry service. She should follow-up with Dr Guerra as previously scheduled next week and maintain nonweightbearing status of the right lower extremity for 6 to 8 weeks. Review of Systems ROS Status of ROS 10 or more systems reviewed and unremark able except as noted in history and below [facility] Medical History (Updated 12/09/23 @ 09:51 by Marleni Butler NP) Stress incontinence ?N39.3 - Stress incontinence (female) (male) (ICD-10) Hallux valgus ?M20.10 - Hallux valgus (acquired), unspecified foot (ICD-10) Strain of right peroneal muscle or tendon ?S86.311A - Strain of muscle(s) and tendon(s) of peroneal muscle group at lower leg level, right leg, initial encounter (ICD-10) 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 - Congenital deformity of feet, unspecified, unspecified foot (ICD- 10) 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 - Other congenital varus deformities of feet, unspecified foot (ICD- 10) Equinus contracture of right ankle ?M24.571 - Contracture, right ankle (ICD-10) Osteoarthritis of right ankle and foot ?M19.071 - Primary osteoarthritis, right ankle and foot (ICD-10) Eversion deformity of right foot ?M21.071 - Valgus deformity, not elsewhere classified, right ankle (ICD-10) Posterior tibial tendon dysfunction ?M76.829 - Posterior tibial tendinitis, unspecified leg (ICD-10) Insomnia ?G47.00 - Insomnia, unspecified (ICD-10) Depression ?F32.A - Depression, unspecified (ICD-10) Anxiety ?F41.9 - Anxiety disorder, unspecified (ICD-10) COVID-19 ?U07.1 - COVID-19 (ICD-10) Migraine ?G43.909 - Migraine, unspecified, not intractable, without status migrainosus (ICD-10) Kidney stones ?N20.0 - Calculus of kidney (ICD-10) Seasonal allergies ?J30.2 - Other seasonal allergic rhinitis (ICD-10) Heartburn ?R12 - Heartburn (ICD-10) IBS (irritable bowel syndrome) ?K58.9 - Irritable bowel syndrome without diarrhea (ICD-10) Encounter for removal of skin lesion ?L98.9 - Disorder of the skin and subcutaneous tissue, unspecified (ICD-10) Surgical History (Updated 12/09/23 @ 09:51 by Marleni Butler NP) History of wisdom tooth extraction ?K08.409 - Partial loss of teeth, unspecified cause, unspecified class (ICD- 10) History of colonoscopy ?Z98.890 - Other specified postprocedural states (ICD-10) History of esophagogastroduodenoscopy (EGD) ?Z98.890 - Other specified postprocedural states (ICD-10) H/O sinus surgery ?Z98.890 - Other specified postprocedural states (ICD-10) History of nasal septoplasty ?Z98.890 - Other specified postprocedural states (ICD-10) H/O lumpectomy ?Z98.890 - Other specified postprocedural states (ICD-10) History of endometrial ablation ?Z98.890 - Other specified postprocedural states (ICD-10) History of dilation and curettage ?Z98.890 - Other specified postprocedural states (ICD-10) History of cholecystectomy ?Z90.49 - Acquired absence of other specified parts of digestive tract (ICD- 10) History of tonsillectomy ?Z90.89 - Acquired absence of other organs (ICD-10) History of hysterectomy ?Z90.710 - Acquired absence of both cervix and uterus (ICD-10) History of foot surgery (2018) ?Z98.890 - Other specified postprocedural states (ICD-10) History of foot surgery (03/02/21) ?Z98.890 - Other specified postprocedural states (ICD-10) Family History (Updated 11/28/23 @ 09:29 by Tina Chen NP) Other Family history of cervical cancer Family history of diabetes mellitus Family history of hypertension Family history of lung cancer Family history of myocardial infarction Family history of ovarian cancer Social History (Updated 11/28/23 @ 09:20 by Tina Chen NP) Within the past year, how often did you have a drink containing alcohol: never Score interpretation: A score less than 3 is consistent with normal alcohol consumption. 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 @ [employer] Highest level of school completed/degree received: Associate degree: occupational, technical, vocational program Meds Home Medications and Allergies Home Medications Medication Instructions Recorded Confirmed Type Lactobacillus acidophilus 100 mmu cells PO DAILY 11/28/23 12/08/23 History (Acidophilus capsule) cariprazine 3 mg capsule (Vraylar) 3 mg PO DAILY 11/28/23 12/08/23 History cetirizine 10 mg tablet 10 mg PO DAILY PRN allergy symptoms 11/28/23 12/08/23 History lamotrigine 100 mg tablet 100 mg PO DAILY 11/28/23 12/08/23 History meloxicam 15 mg tablet 15 mg PO DAILY 11/28/23 12/08/23 History propranolol 160 mg capsule,24 160 mg PO Q24H 11/28/23 12/08/23 History hr,extended release rizatriptan 10 mg tablet 10 mg PO DAILY PRN migraine 11/28/23 12/08/23 History headache sertraline 100 mg tablet 100 mg PO BID 11/28/23 12/08/23 History trazodone 50 mg tablet 100 mg PO QPM PRN sleep 11/28/23 12/08/23 History alendronate 70 mg tablet (Fosamax) 70 mg PO QWEEK 12 weeks #12 tabs 12/09/23 Rx aspirin 81 mg tablet,delayed 81 mg PO BID 30 days #60 tabs 12/09/23 Rx release (Adult Low Dose Aspirin) cefadroxil 500 mg capsule 500 mg PO BID 7 days #14 caps 12/09/23 Rx cholecalciferol (vitamin D3) 125 125 mcg PO DAILY 90 days #90 caps 12/09/23 Rx mcg (5,000 unit) capsule ondansetron 4 mg disintegrating 4 mg PO Q8H PRN nausea and 12/09/23 Rx tablet vomiting 5 days #15 tabs oxycodone-acetaminophen 5 mg-325 1 tab PO Q6H PRN pain 7 days #28 12/09/23 Rx mg tablet (Percocet) tabs sennosides 8.6 mg tablet (Senna 8.6 mg PO DAILY PRN constipation 7 12/09/23 Rx Laxative) days #7 tabs tizanidine 2 mg tablet 2 mg PO TID PRN muscle spasticity 12/09/23 Rx 7 days #21 tabs Allergies Allergy/AdvReac Type Severity Reaction Status Date / Time adhesive tape Allergy Severe Verified 11/28/23 09:14 povidone-iodine Allergy Rash Verified 11/28/23 09:14 [From Betadine] codeine AdvReac Vomiting Verified 11/28/23 09:14 Exam Constitutional Vital Signs, click to edit/add: Last Vital Signs Temp 97.8 F 12/09/23 05:16 Pulse 97 H 12/09/23 05:16 Resp 18 12/09/23 05:16 BP 112/66 12/09/23 05:16 Pulse Ox 92 L 12/09/23 05:16 O2 Del Method Room Air 12/09/23 05:16 Common normals: no apparent distress, oriented x3, alert and well nourished General appearance: cooperative Orientation/consciousness: Yes awake HENMT Common normals: normocephalic, head/scalp atraumatic, hearing grossly normal bilaterally, external nose normal and moist oral mucous membranes Eye Common normals: PERRL, EOMs intact bilaterally, conjunctivae normal and no scleral icterus Alignment: alignment normal Eyelid: eyelids normal Chest Common normals: inspection of chest normal Chest: symmetrical chest wall rise Respiratory Common normals: normal respiratory effort, no retractions, no use of accessory muscles and clear to auscultation bilaterally Effort & inspection: able to speak in complete sentences Cardio Common normals: no JVD, regular rate, regular rhythm, S1 normal heart sound, S2 normal heart sound, no gallops, no clicks, no murmurs, no rub and peripheral pulses 2+ throughout GI Common normals: Normal to inspection, nondistended, normoactive bowel sounds present, soft to palpation, non-tender, no hepatosplenomegaly, no masses and no bruits Bladder/kidney exam: bladder normal to palpation Back & Pelvis Common normals: thoracic and lumbar spine normal to inspection Extremity Common normals: normal capillary refill and no pedal edema General: normal exam except as noted; no clubbing and no cyanosis Right lower extremity: lower leg (Post op splint in place w/ mild foot swelling noted. Warm, good cap refill) Neuro [place] Coma Scale: GCS not evaluated Common normals: CN's II-XII intact bilaterally, moves all extremities and no focal motor deficits Speech: speech normal Sensory exam: other (R foot numb s/p intra-op nerve block) Psych Common normals: mental status grossly normal, thought process normal, affect normal and activity/motor behavior normal Results Pulse Oximetry Attestation: I have reviewed the pertinent pulse oximetry results. Imaging R Ankle XR: Radiologist's impression: FINDINGS: BONES:Postsurgical changes with posterior calcaneal osteotomy and subtalar fusion transfixed with 2 cannulated screws. Osteotomy and wedged spacer placement medial cuneiform. SOFT TISSUES:Postsurgical soft tissue swelling and subcutaneous emphysema EFFUSION:None visible. OTHER: Negative. R Foot XR: Radiologist's impression: FINDINGS: BONES:Postsurgical changes with posterior calcaneal osteotomy and subtalar fusion transfixed with 2 cannulated screws. Osteotomy and wedged spacer placement medial cuneiform. SOFT TISSUES:Postsurgical soft tissue swelling and subcutaneous emphysema EFFUSION:None visible. OTHER: Negative. Assessment and Plan Assessment and Plan (1) S/P surgical manipulation of ankle joint: Assessment and Plan: ACUTE * Adm observation for post op monitoring and pain management * POD #1 - Right subtalar joint fusion, medial displacement calcaneal osteotomy, cotton osteotomy, posterior tibial tendon repair, peroneal tendon synovectomy, gastrocnemius recession, application of short leg splint and stress examination under intraoperative fluoroscopy per Dr Guerra, 12/08/23 * Post op course unremarkable w/ adequate pain control and no other acute complaints noted * DC home * All post op antibiotics, pain & nausea management, WB status and PT orders deferred to the podiatry service (2) Osteoarthritis of right ankle and foot: Assessment and Plan: CHRONIC * See #1 (3) Equinus contracture of right ankle: Assessment and Plan: CHRONIC * See #1 (4) Eversion deformity of right foot: Assessment and Plan: CHRONIC * See #1 (5) Posterior tibial tendon dysfunction: Assessment and Plan: CHRONIC * See #1 (6) Migraine: Assessment and Plan: CHRONIC * Continue home propranolol and triptan (7) Depression: Assessment and Plan: CHRONIC * Continue home lamotrigine, Vraylar, and Sertraline Urinary Catheter Management Urinary Catheter Management Urethral: Cath placed during this visit: no
== END 2023-12-09 11:25 | disposition home or self-care (01) ==
LOC: SURGOUT 06:19 → MS 13:03
PROVIDERS: Podiatrist Foot & Ankle Surgery; Admitting Provider Family Medicine; PCP Nurse Practitioner Family; Visit Provider Nurse Practitioner
PROC: (CPT 1470; principal; 2023-12-08 07:30)
DX: M19.071 Primary osteoarthritis, right ankle and foot (principal); M21.171 Varus deformity, not elsewhere classified, right ankle; F32.A Depression, unspecified; F41.9 Anxiety disorder, unspecified; Z86.16 Personal history of COVID-19; Z87.442 Personal history of urinary calculi; G47.00 Insomnia, unspecified; J30.2 Other seasonal allergic rhinitis; R12 Heartburn; Z90.49 Acquired absence of other specified parts of digestive tract; Z90.710 Acquired absence of both cervix and uterus; M21.071 Valgus deformity, not elsewhere classified, right ankle; M76.821 Posterior tibial tendinitis, right leg; M25.871 Other specified joint disorders, right ankle and foot; M24.571 Contracture, right ankle; S86.311D Strain of muscle(s) and tendon(s) of peroneal muscle group at lower leg level, right leg, subsequent encounter; M20.11 Hallux valgus (acquired), right foot
CPT/HCPCS: 27658; 27687; 28086; 28300; 28304; 28725; 36415; 64445; 73610; 73630; 76000; 82948; 85025; 88304; 96365; 96366; 96372; C1713; J0690; J1100; J1170; J1650; J1885; J2250; J2405; J2704; J2795; J3010

== ENCOUNTER 2023-12-28 09:17 | Outpatient (OUT) | payer OTHER, SELFPAY ==
--- NOTE | 2023-12-28 | XR_ITS ---
The [address] [address] Patient Name: NOBLE CASTILLO MRN: [id number] date: 1985 Sex: F Assigned Patient Location: Current Patient Location: Accession/Order Number: [id number] Exam Date: 12/28/2023 09:22 Report Date: 12/28/2023 10:33 At the request of: FABIENNE WALL Procedure: XR foot RT min 3V PROCEDURE: XR foot RT min 3V COMPARISON: 12/08/2023 HISTORY: RIGHT FOOT PAIN FINDINGS: BONES:Stable subtalar fusion with 2 cannulated screws. Stable posterior calcaneal osteotomy. Stable transverse osteotomy and wedged spacer placement medial cuneiform SOFT TISSUES:Moderate diffuse soft tissue swelling EFFUSION:None visible. OTHER: Negative. XR/XR foot RT min 3V IMPRESSION: Stable postsurgical changes Electronically authenticated by: EZIO FOLEY Date: 12/28/2023 10:33
== END 2023-12-28 09:18 | disposition home or self-care (01) ==
LOC: EC 09:17
PROVIDERS: PCP Nurse Practitioner Family; Visit Provider Podiatrist Foot & Ankle Surgery
DX: M79.671 Pain in right foot (principal); Z98.890 Other specified postprocedural states
CPT/HCPCS: 73630

== ENCOUNTER 2024-01-18 09:49 | Outpatient (OUT) | payer OTHER, SELFPAY ==
--- NOTE | 2024-01-18 | XR_ITS ---
The [address] [address] Patient Name: NOBLE CASTILLO MRN: [id number] date: 1985 Sex: F Assigned Patient Location: Current Patient Location: Accession/Order Number: [id number] Exam Date: 01/18/2024 09:51 Report Date: 01/18/2024 13:31 At the request of: FABIENNE WALL Procedure: XR foot RT min 3V PROCEDURE: XR foot RT min 3V COMPARISON: 12/28/2023 HISTORY: RIGHT FOOT PAIN FINDINGS: BONES:Stable posterior calcaneal osteotomy with subtalar fusion. Stable transverse osteotomy and wedged spacer placement medial cuneiform. No acute fracture, dislocation or mechanical failure. SOFT TISSUES:Mild diffuse soft tissue swelling EFFUSION:None visible. OTHER: Negative. XR/XR foot RT min 3V IMPRESSION: Stable postsurgical changes Electronically authenticated by: EZIO FOLEY Date: 01/18/2024 13:31
== END 2024-01-18 09:50 | disposition home or self-care (01) ==
LOC: EC 09:50
PROVIDERS: PCP Nurse Practitioner Family; Visit Provider Podiatrist Foot & Ankle Surgery
DX: M79.671 Pain in right foot (principal); Z98.890 Other specified postprocedural states
CPT/HCPCS: 73630

== ENCOUNTER 2024-02-08 10:20 | Outpatient (OUT) | payer OTHER, SELFPAY ==
--- NOTE | 2024-02-08 | XR_ITS ---
The [address] [address] Patient Name: NOBLE CASTILLO MRN: [id number] date: 1985 Sex: F Assigned Patient Location: Current Patient Location: Accession/Order Number: [id number] Exam Date: 02/08/2024 10:22 Report Date: 02/08/2024 12:49 At the request of: FABIENNE WALL Procedure: XR foot RT min 3V PROCEDURE: XR foot RT min 3V COMPARISON: 01/18/2024 HISTORY: RIGHT FOOT PAIN FINDINGS: BONES:Stable posterior calcaneal osteotomy with subtalar fusion. Stable osteotomy and wedged spacer placement medial cuneiform. No acute fracture or dislocation. No mechanical failure SOFT TISSUES:Negative. No visible soft tissue swelling. EFFUSION:None visible. OTHER: Negative. XR/XR foot RT min 3V IMPRESSION: Stable postsurgical changes Electronically authenticated by: EZIO FOLEY Date: 02/08/2024 12:49
== END 2024-02-08 10:21 | disposition home or self-care (01) ==
LOC: EC 10:20
PROVIDERS: PCP Nurse Practitioner Family; Visit Provider Podiatrist Foot & Ankle Surgery
DX: M79.671 Pain in right foot (principal); Z98.890 Other specified postprocedural states
CPT/HCPCS: 73630

== ENCOUNTER 2024-04-11 08:52 | Outpatient (OUT) | payer OTHER, SELFPAY ==
--- NOTE | 2024-04-11 | XR_ITS ---
The [address] [address] Patient Name: NOBLE CASTILLO MRN: [id number] date: 1985 Sex: F Assigned Patient Location: Current Patient Location: Accession/Order Number: [id number] Exam Date: 04/11/2024 08:55 Report Date: 04/11/2024 13:03 At the request of: FABIENNE WALL Procedure: XR foot RT min 3V PROCEDURE: XR foot RT min 3V COMPARISON: 02/08/2024 HISTORY: RIGHT FOOT PAIN FINDINGS: BONES:Stable posterior calcaneal osteotomy. Stable subtalar fusion. Stable transverse osteotomy and wedged spacer placement medial cuneiform. No acute fracture, dislocation or mechanical failure. Mild permeative pattern of the bones suggests developing osteopenia SOFT TISSUES:Soft tissue swelling EFFUSION:None visible. OTHER: Negative. XR/XR foot RT min 3V IMPRESSION: Stable postsurgical changes Electronically authenticated by: EZIO FOLEY Date: 04/11/2024 13:03
--- OUTSIDE RECORDS SUMMARY | 2024-04-11 09:00 | XMS_ITS | CCD ---
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 Name Role Phone Eric ([facility])Kit Attending Provider Dewayne James Attending Provider [phone] Ame Ortiz Primary Care Provider Cotsa Armando Attending Provider [phone] Christiana Martel Unavailable Sera Lares Unavailable Ame Ortiz Unavailable KRISTIN Ortiz Attending Provider NO FAMILY, PHYSICIAN Primary Care Provider Unava ilable Debra Celestin Unavailable Marleni Jordan Unavailable NO FAMILY, PHYSICIAN Primary Care Provider Unava ilable KRISTIN Ortiz Attending Provider [phone] DO Lambert Gavin Attending Provider KRISTIN Ortiz Primary Care Provider NO FAMILY, PHYSICIAN Primary Care Provider Unava ilable KRISTIN Ortiz Attending Provider KRISTIN Ortiz Primary Care Provider DO Lambert Gavin Attending Provider MD Alexis Lincoln Attending Provider CONOR BEAL Primary Care Physician FARHEEN STRATTON Attending Unavailable FARHEEN STRATTON Admitting Unavailable Donald Cannon Consulting Unavailable AME ORTIZ Primary Care Unavailable FARHEEN STRATTON Consulting Unavailable MISC, DR GUERRERO Admitting Unavailable MISC, DR GUERRERO Consulting Unavailable NIK, AME Primary Care Unavailable MISC, DR GUERRERO Attending Unavailable NIK, AME Admitting Unavailable NIK, AME Primary Care Unavailable NIK, AME Consulting Unavailable NIK, AME Attending Unavailable NADERER, DR CONOR Medina Primary Care Unavailable HIGHLANDER, FABIENNE Mahajan Attending Unavailable ZIEBER, DR RAFAEL Mattson Consulting Unavailable HIGHLANDER, FABIENNE Mahajan Admitting Unavailable HIGHLANDER, FABIENNE Mahajan Consulting Unavailable NIK, AME Primary Care Unavailable HIGHLANDER, FABIENNE Mahajan Admitting Unavailable HIGHLANDER, FABIENNE Mahajan Attending Unavailable ZIEBTIERNEY, DR RAFAEL Mattson Consulting Unavailable HIGHLANDER, FABIENNE [...] Ame Primary Care Unavailable Ml Chisholm Unavailable KRISTIN Ortiz [facility] Primary Care Provider [facility], [facility] Mahajan Attending Provider [phone] Nik, Ame Primary Care Unavailable Charlie, Fabienne Mahajan Attending Unavailable Fabienne Guerra Admitting Unavailable Nik CORROSION PREVENTION METAL SPRAYER-Irish [facility] Primary Care Provider [facility], [facility] Mahajan Attending Provider LUIS EDUARDO SERRATO Attending Unavailable CHELSEA COE Attending Unavailab CHELSEA Sheikh Attending Unavailab CHELSEA Sheikh Attending Unavailab LUIS EDUARDO Fung Attending Unavailable Lester Mcelroy Attending Unavailable Lester Mcelroy Admitting Unavailable NIK, AME Primary Care Unavailable Lester Mcelroy Attending Unavailable NIK, AME Primary Care Unavailable Lester Mcelroy Attending Unavailable Lester Mcelroy Admitting Unavailable AME ORTIZ Primary Care Unavailable AME ORTIZ Primary Care Physician Unavailable Unavailable Unavailable Allergies Allergy Classification Reported Allergen(s) Allergy Type Date of Onset Reaction(s) Facility Opioid Agonists (2 sources) Codeine; 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: [codeine] Drug Allergy Unknown (qualifier value) [facility] Povidone-Iodine (2 sources) Povidone-Iodine ; 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: [povidone iodine topical] Drug Allergy Unknown (qualifier value) [facility] (8 sources) Adhesive Tape; 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: [Adhesive tape] Allergy to substance 4 Rash/itching [facility] (6 sources) paper tape Allergy to substance 1 Rash/itching [facility] (18 sources) Codeine; 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: [codeine] Drug Allergy 3 Unknown (qualifier value) [facility] (15 sources) Povidone-Iodine ; 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: [povidone iodine topical] Drug Allergy 3 Unknown (qualifier value) [facility] (13 sources) bandaids Propensity to adverse reactions [employer] Other (15 sources) Polyester Propensity to adverse reactions 3 [facility] (5 sources) Povidone-Iodine ; 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: [Betadine] Drug Allergy 2 itchy rash [facility] (4 sources) Adhesive bandage; 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: [Adhesive Bandage] Drug allergy Unknown (qualifier value) [facility] (2 sources) Codeine Drug Allergy 2 [facility] (1 source) Adhesive Tape; 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: [Tape] Propensity to adverse reactions to drug (disorder) [facility] (2 sources) Adhesive agent Allergy to substance 3 [facility] Medications Current Medications Medication Drug Class(es) Dates [...] Status: Ordered cariprazine 3 mg oral capsule (20 sources) Atypical Antipsychotic Start: 04-09-2024 take 1 mg by mouth once daily Vraylar 3 mg oral capsule mg cap(s), Oral, Daily, Refills(s) 0 Start Date: 04/09/24 Status: Ordered Start: 11-25-2020 take 1 capsule by mo uth once daily Cariprazine (Vraylar) 3 mg capsule Active 3 MG PO Daily February 26, 2024 12:00am take 1 capsule by mo uth every twenty-four hours Vraylar 4.5 MG 1 capsule Orally Once a day Active Vraylar Active [facility] oral tablet (3 sources) Start: 04-16-2019 take 1 tablet by mouth once daily [facility] oral tablet 1 tab(s), Oral, Daily, Refill(s) 0, Prophylaxis Start Date: 04/16/19 Status: Ordered colesevelam hydrochloride 625 mg oral tablet (2 sources) Bile Acid Sequestrant Start: 04-09-2024 take 3 tablets by mouth twice daily Welchol 625 mg Tab 1,875 mg = 3 tab(s), Oral, BID, # 540 tab(s), Refills(s) 0, Pharmacy: [facility]/pharmacy #[id number], 162, cm, 04/09/24 13:38:00 EDT, Height/Length Dosing, 99.2, kg, 04/09/24 13:38:00 EDT, Weight Dosing Start Date: 04/09/24 Status: Ordered fexofenadine hydrochloride 180 mg oral tablet (1 source) Histamine-1 Receptor Antagonist take 1 tablet by mouth once daily Marquita Allergy 180 MG 1 tablet Swallow whole with water; do not take with fruit juices. Orally Once a day Active hydrOXYzine (3 sources) Antihistamine Start: 04-16-2019 hydrOXYzine Oral, TID, Refills(s) 0, Anxiety Start Date: 04/16/19 Status: Ordered ibuprofen 600 mg oral tablet (14 sources) Nonsteroidal Anti-inflammatory Drug Start: 11-27-2020 take 600 mg by mouth every six hours Ibuprofen Active 600 MG PO Q6H 30 November 27, 2020 1:00am take 1 tablet by jerri th three times daily at mealtime as needed Ibuprofen 400 MG 1 tablet with food or m ilk as needed Orally Three times a day Not-Taking/PRN lamoTRIgine 150 mg oral tablet (20 sources) Mood Stabilizer, Anti-epileptic Agent Start: 04-09-2024 take 1 mg by mouth twice daily Lamictal 150 mg Tab mg tab(s), Oral, BID, Refills(s) 0 Start Date: 04/09/24 Status: Ordered Start: 02-26-2024 take 1 tablet by jerri th once daily Lamotrigine (Lamictal) 150 mg tablet Active 150 MG PO Daily February 26, 2024 12:00am Start: 11-25-2020 take 150 mg by mouth twice daily Lamotrigine Active 150 MG PO Twice daily November 25, 2020 1:00am take 1 tablet by jerri th every twenty-four hours LaMICtal 100 MG 1 tablet Orally Once a day Active take 1 tablet by jerri th every twenty-four hours lamoTRIgine 50 MG 1 tablet Orally Once a day Active take 1 tablet by jerri th every twenty-four hours lamoTRIgine 200 MG 1 tablet Orally Once a day Active Pkixldjllq-Xqewagj-Wtydmflrh in (Folinic-Plus) 4-50-2 mg tablet (6 sources) Start: 11-25-2020 take 1 tablet by mouth once daily Azvgjhpyna-Vvxrbpa-Moqbrkyqdun (Folinic-Plus) 4-50-2 mg tablet Active 1 TAB PO Daily November 25, 2020 10:32am Start: 11-25-2020 take 1 tablet by jerri th once daily Lykbpjhpgv-Qvthzpl-Tykcbmlyznk (Folinic- Plus) 4-50-2 mg tablet Active 1 TAB PO Daily November 25, 2020 12:00am Start: 11-25-2020 take 1 tablet by jerri th once daily Vdzaivtczx-Qljuywm-Vdqebpkqrmx (Folinic- Plus) 4-50-2 mg tablet Active 1 TAB PO Daily November 25, 2020 1:00am loperamide hydrochloride 2 mg oral tablet (2 sources) Opioid Agonist Start: 04-09-2024 Immodium A-D 2 mg Tab mg tab(s), Oral, q4hr, Refills(s) 0 Start Date: 04/09/24 Status: Ordered magnesium citrate (1 source) Start: 04-16-2019 take [...] 30 gram, Refill(s) 0, [facility] [facility] [address] Start Date: 06/28/19 Status: Ordered [place]-3 (1 source) Start: 04-16-2019 [place]-3 Oral, Daily, Refill(s) 0, Prophylaxis Start Date: 04/16/19 Status: Ordered [place]-3 Fatty Acids (Fish Oil Concentrate) 1,000 mg Capsule (6 sources) Start: 11-25-2020 take 1 capsule by mouth once daily [place]-3 Fatty Acids (Fish Oil Concentrate) 1,000 mg Capsule Active 1000 MG PO Daily November 25, 2020 10:35am Start: 11-25-2020 take 1 capsule by mo ut once daily [place]-3 Fatty Acids (Fish Oil Concentrate) 1,000 mg Capsule Active 1000 MG PO Daily November 25, 2020 12:00am Start: 11-25-2020 take 1 capsule by mo uth once daily [place]-3 Fatty Acids (Fish Oil Concentrate) 1,000 mg Capsule Active 1000 MG PO Daily November 25, 2020 1:00am ondansetron 4 mg oral tablet (3 sources) Serotonin-3 Receptor Antagonist Start: 07-10-2022 take 1 tablet by mouth every eight hours as needed Zofran ODT 4 MG 1 tablet on the tongue and allow to dissolve Orally every 8 hrs as needed for 4 days Jul, Active pantoprazole 40 mg delayed release oral tablet (2 sources) Proton Pump Inhibitor Start: 04-09-2024 take 1 mg by mouth once daily Protonix 40 mg Tab-DR mg tab(s), Oral, Daily, Refills(s) 0 Start Date: 04/09/24 Status: Ordered Probiotic (13 sources) Probiotic Active Probiotic Formula (Bacillus Coagulans) (3 sources) Start: 04-16-2019 take 1 capsule by mouth once daily Probiotic Formula (Bacillus Coagulans) 1 cap(s), Oral, Daily, Refill(s) 0, Prophylaxis Start Date: 04/16/19 Status: Ordered Propranolol (3 sources) beta-Adrenergic Gricel Start: 04-09-2024 propranolol 160 mg, Refills(s) 0 Start Date: 04/09/24 Status: Ordered Start: 02-26-2024 take 160 mg by mouth once maria del rosario y Propranolol Active 160 MG PO Daily February 26, 2024 12:00am rizatriptan 10 mg oral tablet (20 sources) Serotonin-1b and Serotonin-1d Receptor Agonist Start: 02-26-2024 take 3 tablets by mouth every twenty-four hours Rizatriptan (Maxalt) 10 mg tablet Active 10 MG PO EVERY 2-4 HOURS February 26, 2024 12:00am do not exceed 3 doses per 24 hrs Start: 04-16-2019 take 1 tablet by jerri once daily rizatriptan 10 mg Dis Tab 10 mg = 1 tab(s), Oral, Daily, Refills(s) 0, Prophylaxis Start Date: 04/16/19 Status: Ordered Zoloft (20 sources) Serotonin Reuptake Inhibitor Start: 04-09-2024 Zoloft Oral, Daily, Refills(s) 0 Start Date: 04/09/24 Status: Ordered Start: 11-25-2020 take 1 tablet by jerri th once daily Sertraline (Zoloft) 100 mg tablet Active 100 MG PO Daily February 26, 2024 12:00am take 2 tablets by mo [facility] every twenty-four hours Sertraline HCl 100 MG 2 tablets Orally Once a day Active Sertraline HCl A ctive topiramate 25 mg oral tablet (1 source) Start: 04-16-2019 take 1 tablet by mouth twice daily Topamax 25 mg Tab 25 mg = 1 tab(s), Oral, BID, Refills(s) 0, Migraine headache Start Date: 04/16/19 Status: Ordered traMADol hydrochloride 50 mg oral tablet (5 sources) Opioid Agonist Start: 11-27-2020 take 50 mg by mouth every six hours Tramadol Active 50 MG PO Q6H 20 November 27, 2020 1:00am traZODone hydrochloride 50 mg oral tablet (6 sources) Serotonin Reuptake Inhibitor Start: 11-25-2020 take 50 mg by mouth once daily at bedtime Trazodone Active 50 MG PO Daily at bedtime November 25, 2020 1:00am Tri Femynor (1 source) Start: 04-16-2019 take 1 tablet by mouth once daily Tri Femynor 1 tab(s), Oral, Daily, Refill(s) 0, control/menstrual regulation Start Date: 04/16/19 Status: Ordered Vitamin D3-Vitamin K2 (Dosoquin) 5,500-200 unit-mcg Tablet (6 sources) Start: 11-25-2020 take 1 tablet by [...] Drug Class(es) Dates Sig (Normalized) Sig (Original) [id number] 200 actuat albuterol 0.09 mg/actuat metered dose [...] Apr, Not-Taking cholecalciferol 0.025 mg oral tablet (3 sources) Vitamin D Start: 04-16-2019 take 1 tablet by mouth once daily cholecalciferol 1000 intl units oral tablet 1,000 International_Unit = 1 tab(s), Oral, Daily, # 30 tab(s), Refills(s) 0, Prophylaxis Start Date: 04/16/19 Status: Ordered Start: 04-16-2019 take 1 tablet by jerri once daily cholecalciferol 1000 intl units oral tablet 1,000 International_Unit = 1 tab(s), Oral, Daily, # 30 tab(s), Refills(s) 0, Prophylaxis Start Date: 04/16/19 Status: Ordered Glucometer Device (5 sources) Start: 09-02-2022 Glucometer Dev ice as directed [...] Classification Problem Date Documented Da te Episodic/Chronic Abdominal pain (3 sources) Lower abdominal pain; 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: [Lower abdominal pain, unspecified] Onset: 4 Episodic Anxiety disorders (6 sources) Anxiety; 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: [Anxiety disorder, unspecified] Onset: 2 Chronic Calculus of urinary tract (3 sources) Kidney stone 04-16-2019 Episodic Conditions associated with dizziness or vertigo (1 source) Dizziness and giddiness Episodic Disorders of lipid metabolism (4 sources) Hypertriglyceridemia; 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: [Pure hyperglyceridemia] 02-26-2024 Chronic Disorders of teeth and jaw (1 source) Unspecified temporomandibular joint disorder, unspecified side Episodic Esophageal disorders (11 sources) Gastroesophageal reflux disease; 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: [Gastro-esophageal reflux disease without esophagitis] Onset: 2 Chronic Gastroduodenal ulcer (except hemorrhage) (3 sources) Gastric ulcer; 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: [Gastric ulcer, unspecified as acute or chronic, without hemorrhage or perforation] Onset: 4 Chronic Headache; including migraine (20 sources) Migraine aura without headache ; 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: [Migraine with aura, not intractable, without status migrainosus] Onset: 2 Resolved: 2 Chronic Malaise and fatigue (16 sources) Fatigue; 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: [Chronic fatigue, unspecified] Onset: 2 Chronic Mood disorders (18 sources) Bipolar disorder; 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: [Bipolar disorder, unspecified] Onset: 2 Chronic Noninfectious gastroenteritis (3 sources) Noninfectious enteritis; 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: [Noninfective gastroenteritis and colitis, unspecified] Onset: 4 Episodic Nutritional deficiencies (15 sources) Vitamin D deficiency; [...] SYNDROME] Onset: 2 Chronic Other endocrine disorders (3 sources) Hypoglycemia 04-16-2019 Chronic Other gastrointestinal disorders (4 sources) Irritable bowel syndrome; 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: [Irritable bowel syndrome without diarrhea] Chronic Other gastrointestinal disorders (2 sources) Irritable bowel syndrome without diarrhea; 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: [IRRITABLE BOWEL SYND W/O DIARRHEA] Onset: 2 Chronic Other gastrointestinal disorders (3 sources) Heartburn 04-16-2019 Episodic Other nervous system disorders (5 sources) Acute postoperative pain; 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: [Other acute [...] infections (1 source) Acute sinusitis, unspecified Episodic Residual codes; unclassified (1 source) Acquired absence of organ; 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: [Acquired absence of other specified parts of digestive tract] Onset: 4 Episodic Unclassified (2 sources) LOW BACK PAIN, UNSPECIFIED; 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: [LOW BACK PAIN, UNSPECIFIED] Onset: 2 Past or Other Problems Problem Classification Problem Date Documented Date Episodic/Chronic Allergic reactions (1 source) Dermatitis, unspecified Onset: 05-24-2022 Resolved: 05-24-2022 Episodic E Codes: Natural/environment (1 source) Exposure to other specified factors, initial encounter; 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: [EXPOSURE OTHER SPEC FACTORS INITIAL] Onset: 10-26-2022 Episodic Genitourinary symptoms and ill-defined conditions (1 source) Dysuria Onset: 05-24-2022 Resolved: 05-24-2022 Episodic Immunizations and screening for infectious disease (1 source) Contact with and (suspected) exposure to other viral communicable diseases Onset: 08-22-2021 Resolved: 08-22-2021 Episodic Other aftercare (1 source) shelter (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; 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: [WATER SKI ASSEMBLER CURRENT USE OF ASPIRIN] Onset: 10-26-2022 Episodic Other aftercare (1 source) Other termite control representative (current) drug therapy; 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: [OTH HALF-WAY CURRENT DRUG THERAPY] Onset: 10-26-2022 Episodic Other [...] Test Name Value Interpretation Reference Range Facility Ambulatory Visit Summaryon 0 04-09-2024 Ambulatory Visit Summary NOBLE SANTIAGO :1985 Visit Date:04/09/2024 Ambulatory Visit Instructions Your Diagnosis Chronic diarrhea S/P cholecystectomy Chronic GERD Lower abdominal pain Gastric erosion Your Care Team Attending Physician - Navi MACK, Lester Godoy Primary Care Physician - CONOR BEAL MD This Is Your Medications List colesevelam (Welchol 625 mg Tab) Contact prescribing physician if questions or concerns bacillus coagulans-inulin (Probiotic Formula (Bacillus Coagulans)) cariprazine (Vraylar 3 mg oral capsule) cholecalciferol (cholecalciferol 1000 intl units oral tablet) hydrOXYzine lamotrigine (Lamictal 150 mg Tab) loperamide (Immodium A-D 2 mg Tab) multivitamin with minerals ([facility] oral tablet) pantoprazole (Protonix 40 mg Tab-DR) propranolol rizatriptan (rizatriptan 10 mg Dis Tab) sertraline (Zoloft) Procedures Performed Foot (12/01/2023), Cholecystectomy, Dilation and curettage, Nasal sinus, Tonsillectomy, wisdom teeth. Discharge Vitals Heart Rate (Peripheral) 61 Respiratory Rate 16 Blood Pressure 122/84 Height 162 cm Height 64 in Weight 99.2 kg Weight 218.24 lb BMI 37.8 What to do next You Need to Complete the Following C-Reactive Protein, Blood, Routine collect, 04/09/24, Order for future visit, Lab Collect, Chronic diarrhea Invalid Interpretation Code Chronic GERD [facility] CHEMISTRYOrdered By: SYSTEM SYSTEM on 04-09-2024 CRP [Mass/Vol] 1.3 mg/dL Normal <=1.9mg/dL Remisol Ch em TSH Qn 3.27 m[IU]/L Normal 0.34 - 5.60 mcIU/mL Remisol Chem CRPon 04-09-2024 CRP [Mass/Vol] 1.3 mg/dL Normal <=1.9 [facility] Comment on above: Performed By: #### 2 [id number] #### [facility] [address] [place] [address] Consent for Treatmenton 03-31 Consent for Treatment [id number] Normal [facility] Gastroenterology Office/Clin ic Noteon 04-09-2024 Gastroenterology Office/Clinic Note Chief Complaint ibs w constipation and diarrhea GERD HPI Staff Patient is a 39 year old female who was referred by Floresita Ortiz CNP for IBS w/ constipation & diarrhea. constipation and diarrhea, yellow, foamy diarrhea GERD, PCP put her on protonix, helping fecal incontinence Dr Wiggins Assessment/Plan: 06/28/2019 Assessment/Plan 1. Gastric erosions (K25.9: Gastric ulcer, unspecified as acute or chronic, without hemorrhage or perforation) negative HP 2. 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 EGD/ Dr Wiggins: 04/26/2019 1. Normal esophagus, Z line at 40 cm 2. Severe antral erosions, random biopsies obtained to rule out H. pylori 3. Normal duodenum Colonoscopy: 1. Normal terminal ileum. 2. Normal colonic mucosa, random biopsies obtained from ascending colon and rectum Pathology: A: STOMACH, BIOPSY: ? ANTRAL AND BODY MUCOSA CONSISTENT WITH MILD REACTIVE GASTROPATHY. B: RECTUM, BIOPSY: ? COLONIC MUCOSA WITHIN NORMAL LIMITS. C: ASCENDING COLON, BIOPSY: ? COLONIC MUCOSA WITHIN NORMAL LIMITS. History of Present Illness I have reviewed HPI staff note, most recent labs and imaging, more than 30 minutes spent reviewing the chart, during encounter, placing orders and counseling the patient. Pt with worse GERD acid reflux is new. Protonix is helping a lot pt has been burping acid and it is burning her throat belching x 2 months ago pt gained some weight bowel movements are diarrhea or constipation. usually diarrhea taking laxities give her diarrhea goes 6-8 times a day some urgency yellow and foamy gallbladder removed in 2008- on Imodium was put on ?questran and made her high probiotics helped a little low abd pain - better with BMs pt belches a lot pt was taking lots of nasids before foot surgery recently Review of Systems PHQ Score Initial Depression Screen Score: 0 SCORE All systems reviewed, negative except as mentioned above Physical Exam Vitals & Measurements HR: 61(Peripheral) RR: 16 BP: 122/84 HT: 64 in HT: 162 cm WT: 99.2 kg WT: 218.24 lb BMI: 37.8 General: alert, no acute distress HEENT: atraumatic normocephalic Cardiovascular: regular rate and rhythm, normal peripheral perfusion Respiratory: Lungs CTA, respirations non labored Extremities: no deformity, no trauma Abdomen: Benign, soft, nontender nondistended Assessment/Plan 1. Chronic diarrhea (K52.9: Noninfective gastroenteritis and colitis, unspecified) Ordered: C-Reactive Protein Calprotectin, Fecal Celiac Disease Comprehensive Clostridium Difficile PCR Enteric Panel by PCR IgA, Quant. O & P Exam, Routine Pancreatic Elastase, Fecal Thyroid Stimulating Hormone 2. S/P cholecystectomy (Z90.49: Acquired absence of other specified parts of digestive tract) Ordered: C-Reactive Protein IgA, Quant. 3. Chronic GERD (K21.9: Gastro-esophageal reflux disease without esophagitis) Ordered: C-Reactive Protein IgA, Quant. 4. Lower abdominal pain (R10.30: Lower abdominal pain, unspecified) Ordered: C-Reactive Protein IgA, Quant. 5. Gastric erosion (K25.9: Gastric ulcer, unspecified as acute or chronic, without hemorrhage or perforation) Orders: colesevelam, 1,875 mg = 3 tab(s), Oral, BID, # 540 tab(s), Refills(s) 0, Pharmacy: [facility]/pharmacy #[id number], 162, cm, 04/09/24 13:38:00 EDT, Height/Length Dosing, 99.2, kg, 04/09/24 13:38:00 EDT, Weight Dosing Continue Protonix. Could potentially increase to twice a day if needed Advised the patient to lose 10% of current weight Start WelChol advised to titrate if needed Check stool studies for C. difficile, stool culture, ova and parasites, stool calprotectin, and stool elastase Check celiac panel Might benefit from repeat EGD given history of gastric erosions Follow-up No qualifying data available Problem List/Past Medical History Ongoing Chronic diarrhea Chronic GERD Depression Gastric erosion Heartburn Hypoglycemia Kidney stone Lower abdominal pain Migraine S/P cholecystectomy Historical No qualifying data Procedure/Surgical History Foot (12/01/2023), Cholecystectomy, Dilation and curettage, Nasal sinus, Tonsillectomy, wisdom teeth. Medications [facility]rum [facility] oral tablet, 1 tab(s), Oral, Daily cholecalciferol 1000 intl units oral tablet, 1000 International_Unit= 1 tab(s), Oral, Daily hydrOXYzine, Oral, TID Immodium A-D 2 mg Tab, Oral, q4hr Lamictal 150 mg Tab, Oral, BID Probiotic Formula (Bacillus Coagulans), 1 cap(s), Oral, Daily propranolol, 160 mg Protonix 40 mg Tab-DR, Oral, Daily rizatriptan 10 mg Dis Tab, 10 mg= 1 tab(s), Oral, Daily Vraylar 3 mg oral capsule, Oral, Daily Welchol 625 mg Tab, 1875 mg= 3 tab(s), Oral, BID Zoloft, Oral, Daily Allergies Adhesive Bandage (Unknown) Betadine (Unknown) codeine (Unknown) Social History Alcohol - Denies Alcohol Use, (more content not included)... Normal [facility] Comment on above: Result Comment: Elec tronically Signed By: Navi MACK, Lester Escobedo.br\Date and Time Signed: 04/09/24 14:24 EDT Angel 12-08-2023 L Specimen: [id number] Received: 12/09/23 Status: TANA Req Num: [id number] Spec Type: Surgical Subm Dr: Fabienne Guerra DPM, MS Tissues: A Tendon/Sheath (RT POST TIBIAL TEND) Procedures: HE, Gross/Micro L3 Age/ Patient Sex Location Account Attending Physician Noble Santiago 38/F LABELL [id number] Fabienne Guerra DPM, MS SPEC NUM: [id number] RECD: 12/09/23 STATUS: TANA JOON NUM: [id number] SHEREE: 12/08/[address]: Fabienne Guerra DPM, MS ENTERED: 12/09/23 [facility] DR: Gregory,Lab SPEC TYPE: Surgical DEPT: JEANNIE QUINTERO ORDERED: HE, Gross/Micro L3 ORDERED: HE, Gross/Micro L3 Pathological Diagnosis Right posterior tibial tendon synovitis: Fibrofatty and fibroconnective tissue, unremarkable. Clinical Information Primary osteoarthritis, right ankle and foot, varus deformity of right ankle Gross Description Received in formalin labeled with the patient's name, date of and right posterior tibial tendon synovitis is a 2.2 x 1.5 x 0.8 cm aggregate of yellow-barbour, rubbery tissue. Entirely submitted in one cassette labeled A1. CPT Codes 35358 -------- -------- Specimen: [id number] Received: 12/09/23 Status: TANA Jara Num: [id number] Spec Type: Surgical Subm Dr: Fabienne Guerra,GER, MS Tissues: A Tendon/Sheath (RT POST TIBIAL TEND) Procedures: Slade JASSO/Latesha L3 -------- Patient: Noble Santiago [id number] (Continued) -------- Signed (signature on file) Toney Chandra MD 12/12/23 3834 [facility] Nicotine Metabolite, Urine L Con 04-19-2023 Cotinine LC Negative Invalid Interpretation Code [id number] [facility] Comment on above: Result Comment: Perf ormed At: [facility] [place] [address] [place], [place] [id number] Mark Puentes PhD Ph:[phone] Performed By: #### 1 [id number] ####[facility] (DEFAULT)[address] [id number] Lab - Toxicology Resultson 0 04-18-2023 Lab - Toxicology Results [id number]. [id number] Normal [facility] CT ANKLE RT WO CONon 023 CT [...] technique. FINDINGS: BONES: Joint space narrowing with totj-qf-ksln articulation involving the medial aspect of the talocalcaneal joint. SOFT TISSUES: Negative. No visible soft tissue swelling. EFFUSION: None visible. OTHER: Negative. IMPRESSION: 1. Pes planus. 2. Ebdh-db-zrtx articulation between the articular surfaces of the medial talocalcaneal joint. 3. Uniform, normal spacing of the tibiotalar joint. Electronically authenticated by: RAFAEL COATS Date: 2023-02-02 09:25 Normal [facility] CHEMISTRYOrdered By: SYSTEM SYSTEM on 01-17-2023 25-hydroxyvitamin D3 [Mass/Vol] 30.1 ng/mL Normal 30.0 - 100.0 ng/mL [facility] Albumin [Mass/Vol] 4.3 g/dL Normal 3.3 - 5.0 gm/dL [facility] Albumin/Globulin [Mass ratio] 1.4 {ratio} Normal 1.1 - 2.2 [facility] ALP [Catalytic activity/Vol] 84 [iU]/d Normal 21 - 98 Int._Unit/L [facility] ALT No additional P-5'-P [Catalytic activity/Vol] 20 [iU]/d Normal 6 - 46 Int._Unit/L [facility] Anion gap [Moles/Vol] 12 mmol/L Normal 6 - 16 mEq/L [facility] AST [Catalytic activity/Vol] 15 [iU]/d Normal 5 - 43 Int._Unit/L [facility] Bilirubin [Mass/Vol] 0.6 mg/dL Normal 0.0 - 1 .1 mg/dL [facility] Calcium [Mass/Vol] 9.6 mg/dL Normal 8.9 - 11. 1 mg/dL [facility] Chloride [Moles/Vol] 101 mmol/L Normal 101 - 1 11 mmol/L [facility] Cholesterol [Mass/Vol] 171 mg/dL Normal 120 - 200 mg/dL [facility] Cholesterol in HDL [Mass/Vol] 60 mg/dL Invalid Interpretation Code [facility] Cholesterol in LDL [Mass/Vol] 52 mg/dL Normal <=129mg/dL [facility] Cholesterol in VLDL [Mass/Vol] 63 mg/dL High 7 - 40 mg/dL [facility] CO2 [Moles/Vol] 25 mmol/L Normal 21 - 31 mmol/L [facility] Cobalamin (Vitamin B12) [Mass/Vol] 272 pg/mL Normal 50 - 1500 pg/mL [facility] Creatinine [Mass/Vol] 0.7 mg/dL Normal 0.5 - 1.3 mg/dL [facility] Free T4 [Mass/Vol] 1.02 ng/dL Normal 0.58 - 1. 64 ng/dL [facility] GFR/1.73 sq M.predicted among blacks MDRD (S/P/Bld) [Vol rate/Area] mL/min/1.73 m2 Normal >=59mL/min/1 .73 m2 [facility] Chem S GFR/1.73 sq M.predicted among non-blacks MDRD (S/P/Bld) [Vol rate/Area] mL/min/1.73 m2 Normal >=59mL/min/1 .73 m2 [facility] S Globulin (S) [Mass/Vol] 3.1 g/dL Normal 1.4 - 4.0 gm/dL [facility] Glucose [Mass/Vol] 82 mg/dL Normal 55 - 199 mg/dL [facility] Potassium [Moles/Vol] 4.3 mmol/L Normal 3.5 - 5.3 mmol/L [facility] Protein [Mass/Vol] 7.4 g/dL Normal 6.0 - 7.8 gm/dL [facility] Sodium [Moles/Vol] 134 mmol/L Low 135 - 145 mmol/L [facility] T4 [Mass/Vol] 10.0 ug/dL High 4.6 - 9.1 mcg/dL [facility] Triglyceride [Mass/Vol] 316 mg/dL High <=149mg/dL [facility] TSH Qn 3.76 m[IU]/L Normal 0.34 - 5.60 mcIU/mL [facility] Urea nitrogen [Mass/Vol] 10 mg/dL Normal 5 - 21 mg/dL [facility] Urea nitrogen/Creatinine [Mass ratio] 14 mg/mg Normal 10 - 20 [facility] HEMATOLOGYOrdered By: SYSTEM SYSTEM on 01-17-2023 Basophils/100 WBC (Bld) 0.5 % Normal 0.0 - 2.0 % [facility] Basophils/Leukocytes Auto (Bld) [Pure # fraction] 0.1 E9/L Normal 0.0 - 0.2 E9/L [facility] Eosinophils/100 WBC (Bld) 0.5 % Normal 0.0 - 8.0 % [facility] Eosinophils/Leukocyt es Auto (Bld) [Pure # fraction] 0.1 E9/L Normal 0.0 - 0.5 E9/L [facility] Lymphocytes/100 WBC (Bld) 24.6 % Normal 14.0 - 50.0 % [facility] Lymphocytes/Leukocyt es Auto (Bld) [Pure # fraction] 3.6 E9/L Normal 1.0 - 4.0 E9/L [facility] Monocytes/100 WBC (Bld) 6.6 % Normal 4.0 - 14.0 % [facility] Monocytes/Leukocytes Auto (Bld) [Pure # fraction] 1.0 E9/L Normal 0.2 - 1.0 E9/L [facility] Neutrophils/100 WBC (Bld) 67.8 % Normal 36.0 - 75.0 % [facility] Neutrophils/Leukocyt es Auto (Bld) [Pure # fraction] 10.0 E9/L High 2.0 - 7.5 E9/L [facility] HEMATOLOGYOrdered By: Jojo Mueller on 01-17-2023 Erythrocyte distribution width (RBC) [Ratio] 13.8 % Normal 10.9 - 14.2 % [facility] Hematocrit (Bld) [Volume fraction] 46.0 % Normal 34.0 - 46.0 % [facility] Hemoglobin (Bld) [Mass/Vol] 14.9 g/dL Normal 12.0 - 16.0 gm/dL [facility] MCH (RBC) [Entitic mass] 28.1 pg Normal 27.0 - 34.0 pg [facility] MCHC (RBC) [Mass/Vol] 32.4 g/dL Normal 31.4 - 36.0 gm/dL [facility] MCV (RBC) [Entitic vol] 86.6 fL Normal 80.0 - 100.0 fL [facility] Platelet mean volume (Bld) [Entitic vol] 9.5 fL Normal 6.4 - 10.8 fL [facility] Platelets (Bld) [#/Vol] 298.0 E9/L Normal 150.0 - 500.0 E9/L [facility] RBC (Bld) [#/Vol] 5.3 E12/L Normal 4.3 - 5.9 E12/L [facility] WBC corrected for nucl RBC Auto (Bld) [#/Vol] 14.8 E9/L High 4.0 - 11.0 E9/L [facility] Coding Summaryon 12-21-2022 Coding Summary [facility] WuemdhjeBMx6qRl+PGhlY WQ+YT9TLKJpX84irNAfdW 4QF2zVIL7BMVSBORWUKN4 MHA0jpEL1OAmlR6TdngVg SmwdfVFpWK31QGn4HQP0d NzoAZqcbS2orGIhW9w3Et FhBH52wJ22QOmoPSSwOtF 3LjZpbjsgbWFy D8mrZkOndEZrTou+PHRhY mxlIHdpZHRoPScxMDAlJy WqrIddYS3bNo4oKSSkEED vbGxhcHNlOiBj x3taCDHqUWycPI0nqVeaY 2OmhTB5RAKpg6k7Pp56bB I+WKShGEM1hRckYHbke41 8WgSwq0hoFNF6 wOMlCZskLJW8I79sc9G5I GYfIJJkMBR5vOW0lZ3kmB uwiyldO4PumJRcHfB2WTL 7xLIvlU0vyJzu gttojW5yIjo+J83WKB7WF QTOTQ0GTym2O2UlSpvonF I+GQ86PUWtDR39xDPsuXY sl4xewYw9BtVl JQEzYBU8fTmiOOwoe4DsD QUpN57ruTSlt5O7PCTspA tffTYkLoNlcTR4nU6mOZh mseewk8aypsgo Uptbr0nuxj63jO84K79wQ EtuWHWzNGA4IESdHFYvdB vcir2xbG2fXk0+YYmoo3h da3ufgZq5WhZd MICfdgBsyLpzTBG6w2JjL v84W7OmbHpsy8MzQru5jg 01aAHgm7V4jUL1GZbnSXH fyG5uBGcsGmB2 XCCoItModU21mBWvRTpgR a7nlLtsoMseHZ1xRVPudx byWWDktQ4wHBZicAXbwGa aIL9hOYEbudwf h521HtQjKEU4XPGzxIIiK 3KqnD3sXjMvDSFzDOOyP9 FhvRQtZRtaH495PHesUyJ 6YJXvczDgR1Hn VAImkKxlBlR7r7F6Vd7Dy 4WaxshuCLE6PJkuTMIsHy YaHiQmWlP5I0DrWrr8GHC ltQeiCP0bL0Zo BUDkgqpndcvkrRI9ASStW XOgeN12iDXyFLqfKg0pq8 L8t528VECwCBYtqM00Jd1 udDogMTBwdCBU oF3kjdomu2adfeduPwZnI ZWeQUy0LOx7SLHofCqwUl YjLJA8SdW3ZNI4jKVmzD2 xlZdkeunstE2h Oyc+M42xiC6qJZM8XFS1y dgmRIJputVlOU41TK85I7 RyPjwvdGFibGU+PGRpdiB hmDfhGL1wBnCu b9ido6CbACksC2KjBOHtV LriBqh5PUQzTNL0sME8aG 7kFYUsLKkcy6T2jSQ8Y5H lnhTzkz9az2pm DJKcXVcyR73afVHkp2C0X VMztGA7OQGjgAkwIbZclK 93Oyc+CGWblPjsv6RzIzw dd7exp1eddOb8 JeSkZUTzaaXetOrrFJA7j 3VbNh93L98bYMitZJWtPC IdCNOgETQocHqjxo7cbR9 wIi8+PGNvbCB3 yHP4oP1nQPZdHnT1HHinN 915XzJmlVIrZcizy8azb8 mxqOa1MsNqSSLrszCvgFs cPOR7k9VvUi04 U85mLWapXSFwZZJtLRSrC VKlvAfrjl4sqQ1iVs9+PC 2da4brzs72bP70jYQ+PHR sGHD1fGykWVpn VRUahM0qVHfaZuX0NPBdE eWnrE64kYSiGTfrMc8heN ueoXtjZP8kAYChpaadz02 3DlIpg0csRNPu mWZxBHcrTUC8E68we6R7F VUdOVNeRFF9gCN2dR5hlJ lnbjogbGVmdDsgdmVydGl rCZglAIkkP651 IHRvcDsnPlBhdGllbnQgT kEnVAi4Z6YcFin8ATBftB nxMR7slYQaFTxyWd2ugFq jeKolIG6tYSDt xedar927VhXho1czANAkn DJlLPriHIE3X56uu1O2NB JzWJNaNDN7wQN6qX8mhYc nbjogbGVmdDsg ibRinJszPLndFIldM057G HRvcDsnPkJpcnRoIERhdG W1QO77AQ52tHNfr5I1jRT 3M6RgVLWdinlz irynhXJ4FUIiYHAphQ92A w5cxVdvYj1mYTKuAXC4MU LplQRzZ5BedV4vFfDnXPC cEITkL7JvmUSq SJvrP859KPkuPnX8MAEpo fVmH9JkDXYptMlpWnM2u2 K1Vv0VS5Z7EO25BS11sWR pr9F0uSH8N9Rl VSKetfyvlqzoaVU9IRCtP NGqtP61Te5ntOpxCr4hYG ZqISI9CDMojWFyY3DyvP5 yOiAjMDAwMDAw K9DfsADpTSpgY642PKgyH wG8CMAwkgPoJ7IbWAKngO ezMqN3m0S1Cu9EZVd7VJ7 1NZ22uCBfo1D3 rZJ4D2NgIMNdcrzsfmcux MK6QEMfZDCrwB69Wo7pkQ ugIz0zRXOwUWI1PZQtlGC rY1BojO1lXfBz IPBmINVjI9XmtMQpOMigV 147LSywLpX6IUNgjjSkO6 EeINMjhLwjRbV6s1O7Vs2 XXUDmGU18PLM3 yMR2LS67MW03B7UgWhcbc GFibGU+PHRhYmxlIHdpZH RoPScxMDAlJyBzdHlsZT0 yOl8bZDIdUAPu mWlrsBDmTjOrj8bcCTVeZ UtyKM5teVquH1UpqPC1SK Fxb7h4Nd49M63dD2FkmUZ +EWQwrPB9oOO8 qR8sGtUjWeI3QQkkH417F uXldGOzPlwdo3eqx5zkkB j5BzY3BJGgbqUvlZizRBR 0b8PdHk47X65w IHdpZHRoPSIxNSUiIHZhb Ijfoy1tuH8vOl6+PGNvbC T2cZZ5lF2lVsXjUzO1GBn pR645OgTdwBUq Ugvjp9kcm4yrwQq8MiQuF IYzcpQmqEtfRZV1x6GtBa 45F4KhpLrfh4QiWds9jq9 7oMEeh0K4uUH8 U5WdFXQvajkiiQPffRubE S6uVXOiylunNNEomM4dBL AyC8o7QxBdZnA4XJlmU7P vrhF5KRZrdJXe KZraAUJ4L67nf6S9KYQgD RXkEED9qRA4mW5woIeagt ogbGVmdDsgdmVydGljYWw mYQblO147SOEi iHwaRESjxY7hRPDryZDue QyyKQ6fRFBocasaJqyYYF 5HLCBLUklTVElOQSBFTEF XLgA1H5BcLoe2 OFNruWhsNM0leJYxGNvkU y6lwJzrwTdsLH7sLFQeye npQVKytL1lBVKgfBGmxQz uWK9sMXJeyrot s773KdBzJKW0DPAepQZlD 9VvdP8yXcLxOYFeSMHaZ9 IwvTTnCCklR576MOknTeU 8CCQnosIhO9Ln JEZrzIpyTqE7d3E9Sg4nA k4mWR9nGIi6OR50XJ11gQ Qcm1L9rOH7K0EzNZUgkau tevxkjQB1LWWe ORIynM67tJJwDFjuTe0fr 8W1w207UDTlYLQisA67Ti 2oaAslBXBceVSMoO9zroz nj7pvavaeGvMy RJLjRUs4GKm6LTJseTrtO mGjGEL1GnI5MUK5iTFocA 9fiRxwtkovyD0yLst+MzY yEROjizC0A3Yz Nln5QIOxpJvvVK6ptFAxH TefBn5eyZiduRfaEL7wPO WwlfbaFBJwqA1wAGGsxZV wtCyzEN0eSMTy knzms085JpRbVIT9SFSoe YPhU8IavA6jCoOdJMDxBT BdC4AhfMHdOWdfW634WLx tHiK0XTYcmzIj G0HiJZKvmNczIsX7i9C3Y u6ZTK0FRAY9T1AkUwo2OU SemYtzWW8ueDYtHSnuYo9 cxQfkrJazUO4j NYHabwxjEXIlxP0xDIQhx YJjmMmuEJ7eXPOjaxwow2 24ZvXbQBG1TTBnoLDhZ7O akH9iVaBzYJJn NUXnE6SljXGkXXwgJ905L RteIjJ5JCQspxLmI3CoWJ DgcNvxUrU6b0P0As9GCPz vdGQ+SJ80nf29 F7XiQfhuHwi4CZOmGCG2z LL0lN9fWJKzTNxdz3X6iP U4C7HldfWvtw8id6cnAFK tSNdlL43zsGXk l3B9PWLaeXM6SVAplXilW iWaqJ50Czq+PGNvbGdyb3 TkOwlkj6jce1okdRf1QuI wJSIgdmFsaWdu EPX0d2XxXg06V53nXLinG HRoPSIzMCUiIHZhbGlnbj 2jnI5qSc9+IXMwuYM5jHM 7eX3aQwVaGsA5 JTxcM845IgAqqZHoTypil 1bul9rqlKq6GuAyQONvge YwdAlyBUM4p8UqNi76Y6Z zqDwsq2QuEwl1 nl06aRJhm0I8mWJ4M3ZzL MZguobmnKQngFyyHM4lSI CgjghzGFScqX5aZJJaF5l 1KtUzAuU8JBqz C4EcobV5NWHqyQRsHDTnz ZWZuI3ftrokd3xzgstsEk JuIXDlDUh1CRz0IXGagEl lKhHoTJZ1IlP5 NYN6zVNteM8kqHhegebhk G9wOyc+ESd6k2izuMMqFZ 3zvTD2IH34MA33wXTmu7N 2zRK6R0DoLALj cbxogolbjGS8ZIQmQFWni F96Hs1hgOfpIa7zWYVwHT B4AUHqaJGqM5BjmD4tWrU zZNUzZNMeW9Sk dPBaTBelZ322QTxtFgM5I OMtieGzI4UoBGVhzKioTt V1p7E8Lc4UHL23WC64WN9 8yZVfh9O1bHV7 N1DjAJDrobzyoqwpwNX4Y FExDDMpxU35Zu2itZquEh 9mFJGmHCC7NLXhhFOeE1H hhX1aZuQaLDRj RQYqL4KthKSiGZunZ914S UuvMdM1QQOnnlGaI9GwRB QarJxgBwK8c2D4Kd5MLl7 9TO86GT10pAKq e3W5hKB9M3QwFLJackhit uowrWF6HSPqOSStfZ39Sf 8qtQkuGy1lXCWiDRX2EQB twNGeR4LydF4p HtWxGLUzNUCtF0TfaSQuN XllN728BGhvNrV4OQVhpm AqJ5StJSIbeCrzGkW8o0P 0Jf6IZQjfnev0 O2JpAuikaAK+YK62PMDiC M14yCItrOXqy2swdSu3Un AoSNGcCMF2mZasFYkbt8Z dLKPvK24psDXj c2U (more content not included)... Normal [facility] ED Clinical Summaryon 2022 ED Clinical Summary [facility] [address] [place] [id number] Clinical Summary PERSON INFORMATION Name: NOBLE SANTIAGO Age: 37 Years Sex: FEMALE : 1985 MRN: Acct#: Visit Reason: UC - Sinus Pain or Congestion; UC - Ear Pain; LT EAR PAIN Arrival: 12/16/2022 11:36:50 Discharge: 12/16/2022 12:00:00 LOS: 000 00:24 Check In: 12/16/2022 11:36:50 Checkout: 12/16/2022 12:00:00 Address: [address] [place] [address] PCP: Ame Ortiz CNP PROVIDER INFORMATION Provider Role Assigned Unassigned Sandra Dinh INTEGRATION SOLUTION ARCHITECT Nurse 12/16/2022 11:39:08 Cong Cobian PA-C ED PA 12/16/2022 11:41:06 VITALS INFORMATION Vital Sign Triage Latest Temperature Tympanic Temperature Temporal Artery Pulse Rate O2 Sat 98 % 98 % Respiratory Rate Blood Pressure /78 mmHg /78 mmHg MEDICAL INFORMATION Medications Given: Allergy Information: Tape; Betadine; codeine PHYSICIAN DOCUMENTATION DISCHARGE INFORMATION: Discharge Disposition: Home Discharge Location: Home PATIENT EDUCATION INFORMATION Instructions: Otitis Media, Adult, Skij-mx-Fxwh Follow-Up: With: Address: When: Ame Ortiz [address] [place], [place] [phone] Business (1) Within 1 week Comments: Please follow-up with , call the office schedule an appointment to be seen in a week or sooner for continued care, taking amoxicillin as prescribed, take nnqt-cpp-utenxif ibuprofen Tylenol as needed for pain and fever, drink plenty water stay hydrated, and return back to the urgent care center for any worsening symptoms, concerns, or complications. DIAGNOSIS: 1:Left otitis media Patient Understands: Yes - Patient/family/caregi regina verbalizes understanding of instructions given Comment: Normal [facility] ED Patient Summaryon 023 ED Patient Summary [facility] [address] [place], [place] [id number] PATIENT DISCHARGE INSTRUCTIONS Patient Information Name: NOBLE SANTIAGO Age: 37 Years Date of : 1985 Reason For Visit: UC - Sinus Pain or Congestion; UC - Ear Pain; LT EAR PAIN Arrival Time: 12/16/2022 11:36:50 Primary Care Physician: Ame Ortiz CNP Attending Physician: Cong Cobian PA-C Comment: Patient Education With: Address: When: Ame Ortiz [address], [place] [id number] [facility] (1) Within 1 week Comments: Please follow-up with , call the office schedule an appointment to be seen in a week or sooner for continued care, taking amoxicillin as prescribed, take kukv-mrh-gvfixix ibuprofen Tylenol as needed for pain and [...] Follow these instructions at home: ? Take qpmh-lwi-zdvtzgj and prescription medicines only as told by [...] provider. Document Revised: 01/25/2022 Document Reviewed: 01/25/2022 [employer] Patient Education ? 2021 [employer] Medication Information: The exam and treatment you received today in the [facility] Emergency Department were for an urgent problem and are not intended as complete care. It is important for you to follow up with a doctor, nurse practitioner, or physician?s customer service assistant for ongoing care. If your symptoms [...] Radiologist will (more content not included)... Normal [facility] 023 Urgent Care Record [facility] Care [address] [place], [place] [id number] PATIENT DISCHARGE INSTRUCTIONS Patient Information Name: NOBLE SANTIAGO Age: 37 Years Date of : 1985 [facility]: [id number] Reason For Visit: UC - Sinus Pain or Congestion; UC - Ear Pain; LT EAR PAIN Arrival Time: 12/16/2022 11:36:50 Primary Care Physician: Ame Ortiz CNP Attending Physician: Cong Cobian PA-C Comment: Visit Diagnosis: Diagnoses This Visit Left otitis media (H66.92) UC - Ear Pain ([id number]) UC - Sinus Pain or Congestion ([id number]) If you received any narcotics, sedation, or [...] legal documents With: Address: When: Ame Ortiz [facility] [place] [id number] Business (1) Within 1 week Comments: Please follow-up with , call the office schedule an appointment to be seen in a week or sooner for continued care, taking amoxicillin as prescribed, take devk-dbt-zsxtdwq ibuprofen Tylenol as needed for pain and fever, drink plenty water stay hydrated, and return back to the urgent care center for any worsening symptoms, concerns, or complications. Medication Information: The exam and treatment you received today in the [facility] were for an urgent problem and are not intended as complete care. It is important for you to follow up with a doctor, nurse practitioner, or physician?s customer service assistant for ongoing care. If your symptoms [...] so we can reach you if necessary. [facility] has provided you with a complete list of medications post discharge. Please inform your oil well service operator helper/provider of your visit and for further instruction on these medications. Any specific questions regarding your chronic medications and dosages should be discussed with your primary care physician(s) and/or pharmacist. New Medications [id number], [address], [place] [id number], [phone] amoxicillin (amoxicillin 500 mg oral capsule) 1 [...] 1 capsule by mouth once daily. rizatriptan (Maxalt-HYDRAULIC AUTO JACK MECHANIC 10 mg oral tablet, disintegrating) 1 tab(s) [...] The condition (more content not included)... Normal [facility] ER URINE PROFILEon 2 Bilirubin Ql (U) Negative Normal NEGATIVE [facility] Comment on above: Performed By: #### E RUR #### [facility] [address] [place] [address] Dr. Phong Thayer Clarity (U) CLEAR Normal CLEAR [facility] Comment on above: Performed By: #### E RUR #### [facility] [address] [place] [address] Dr. Phong Thayer Color (U) LT. YELLOW Normal YELLOW [facility] Comment on above: Performed By: #### E RUR #### [facility] [address] [place] [address] Dr. Phong MONTILLA A micrscopic examination will be performed if indicated. Normal [facility] Comment on above: Performed By: #### E RUR #### [facility] [address] [place] [address] Dr. Phong Thayer Glucose Ql (U) Negative Normal NEGATIVE [facility] Comment on above: Performed By: #### E RUR #### [facility] [address] [place] [address] Dr. Phong Thayer Hemoglobin Ql (U) Negative Normal NEGATIVE [facility] Comment on above: Performed By: #### E RUR #### [facility] [address] [place] [address] Dr. Phong Thayer Ketones Ql (U) Negative Normal NEGATIVE [facility] Comment on above: Performed By: #### E RUR #### [facility] [address] [place] [address] Dr. Phong Thayer LEUKOCYTES Negative Normal NEGATIVE [facility] Comment on above: Performed By: #### E RUR #### [facility] [address] [place] [address] Dr. Phong Thayer Nitrite Ql (U) Negative Normal NEGATIVE [facility] Comment on above: Performed By: #### E RUR #### [facility] [address] [place] [address] Dr. Phong Thayer pH (U) 6.5 [pH] Normal 5-9 [facility] Comment on above: Performed By: #### E RUR #### [facility] [address] [place] [address] Dr. Phong Thayer SPEC GRAVITY 1.015 Normal 1.005-<=1.02 5 [facility] Comment on above: Performed By: #### E RUR #### [facility] [address] [place] [address] Dr. Phong Thayer UA PROTEIN Negative Normal NEGATIVE/ TRACE [facility] Comment on above: Performed By: #### E RUR #### [facility] [address] [place] [address] Dr. Phong Thayer UR MICRO IND NOT INDICATED Normal [facility] Comment on above: Performed By: #### E RUR #### [facility] [address] [place] [address] Dr. Phong Thayer Urobilinogen Qn (U) 0.2 {Gilma'U}/dL Normal 0.2 - 1. 0 [facility] Comment on above: Performed By: #### E RUR #### [facility] [address] [place] [address] Dr. Phong Thayer XR LSPINE 2_3 VIEWSon [...] DONALD CANNON Date: 2022-10-23 16:28 Normal [facility] Coding Summaryon 10-01-2022 Coding Summary [employer] 64 OowbrtuuRRi4rDw+PGhlY WQ+KC8UQDIiA53qiGOrgU 8IN2dDEB5CDDERGVNVJT3 HFH2ulDO1RVdnD0EeufHt IkjnwPReYC13XBp2OOO0f VvnJEgulY7fxLGfA3f4Hj VnJJ87cN21ZTnsQDFaXzV 3LjZpbjsgbWFy F5ixXrKsrJSsKay+PHRhY mxlIHdpZHRoPScxMDAlJy MalAfcFA6dEz5qTQYrAMN vbGxhcHNlOiBj k3xvWOOvDZhsAW5tmOrwP 5JzrJN4VEGyw2r0Ju21qQ I+SOFrWTD6gYdzCAzoi91 6NcPzx5rkHRX8 hURcSAukGBS9D55ag8G5R QOeEQJmKQG9dMP0lH0skY jmdmezS0ZwrKAgRlP8GPO 9eYWkcQ2ouJgy aztgdA5pRns+J41WAJ2XA WVUDF6ZJrn9F4OjWpfegO I+EY31KAKiHH82yIJezYU ov7kaoJk7BbAi LVXmPIH7qQhfIUjtg4LnO GSxX41jpIAbl4V4VIYyjG eawPRhAeKycMH1sT4rQBl qxssrl1zkiwkx Zyxld7krsj91bA55V62jO VguVNGmYIK7QWPuZDRqcN tcmz8csN5vRu3+BCmem9i bw5oltTz6QmXf VXGullNazNklBTG3w2JlR c10G8TqvWgvp1RmAdg2xh 84kFOgx9W2oUB0QBypSMN vqC3eTCwoExL3 RFKgCtKmsQ78yJZyUJedO g4ouWknsIicTJ7tSYMdah bvEIViuU5fYPZmmDZqrMv iNG4gDODxdvua g858LeCcIJR2BTNssBUmW 1YmuY1qUnYqSMVuEAFmH8 AyxDDsJXviA575MNbwKhT 6OWTwouQwD4No JBRxgGvbEuF0a9N1Ym7Gs 8FtkdlbCMR7KLyrNEErKn HkWiPeRpK0G6KoIkq2XBB baGhcJZ5pV0Bz ALUmswozjdyjrEP6GBTpZ GXzbV69vOFbWUuqKv5qx3 W9f708UFScTAEncN67Yu4 udDogMTBwdCBU vG5arryze7obzvmaOrFsA DTzFZh0PHj5OFHapYttUu WqTYQ2JqT8TWW4lDEuaT6 xlWpwhvawoE1r Oyc+J86ugD5yHHC1VEV3r ltnIBPbcmAnJX76JF51I5 RyPjwvdGFibGU+PGRpdiB riScfMZ1uHvXr k5jrl1VeEMdrR2LiZDDyA BrqWpb7GUVmFXY1aOS0gK 4jCIYrMFocv9B9pAR2V2C cvgWshd1wm1vq NBWlIFihP02ndEFas8V7G YNwlRN9XUDcpArjAtWwfC 93Oyc+ABKlkJkyh4LzAdl hf4hci8atmDp6 VbHbTVRlnrFwtAgkXDJ7k 2UhZa82C97vKVqoDJQyCX ItYGVkYBBrfZwbya1loV7 wIi8+PGNvbCB3 iGN7aX6qOQFyKtG8VWdnA 551AnDkoCEtNahoc8utp4 grgEj6IlSwYYThjkSiwLc aHXJ4k6KuGu10 V31sTQrgRANrKRFbQWGbE DEteFjtfq9isO5sKe3+PC 7yq1gzxe32yP38tFR+PHR lZOC1mAdfDTzp URJbdW9kAXbmRqU9CYEiN oOkeF48zCUyGJvjJl1qiB knjClsJR7oVGTblvjim75 4SjBgn0mtEBWp sNYnUUxhCHC8V17yt9D6U WPoPBLrOOM0gOD0uY7ibX lnbjogbGVmdDsgdmVydGl aVWpfZRvyY771 IHRvcDsnPlBhdGllbnQgT uShNKt1L5DcPht6YAMwdA vcMA5paJGbRUauIy8wsYh iaXufNL7eZARk ckotc573EiPct3hlZTHla TWeKYvrIQK8R06ki9D6YH RgTIJpUWQ6zGC0hH1peKz nbjogbGVmdDsg hkSnxVrnFEfmSBswB395B HRvcDsnPkJpcnRoIERhdG N2LR63HA53cWLtp0G3lJB 4Z8TdOGZyzyfu alzwdTJ7FBQiRIQyiV29W d7rlMegAj6zOGYbDAV8DW HnbKPnU1QhnV7tTcGzGWM xEUNyC2KniYZx IGuaM155CRigWvJ2YOMsh iUzT2ZqOUFcvSrwIzH4k5 P0Ay9QO3S7YS68WS59vCI ms7Z7xJW7P2Ae IYHpsogxrvnvbBT7PLRaZ HJgnN74Lu6ebDaxOg0wYQ PkROW0IODjqFJtX6VveV9 yOiAjMDAwMDAw E7GouWGkEUzjM257LWugN pW9KPXcyaDrR6CjRDEcrB lyAdV3y1U0La3OWBv5ES9 4XS22sUBcz1C5 eRL1Z3SbZSUioeeeuyzho AM5ECKrEMLomJ18Qm2ugM ggEo9wQGTiOCU7WZHyuVF fC8UgqR3mIwWx SWHdMVCeH4WsjWMdYNwrO 052ZDrpXbK8HYUelrSxI3 WmMYUypJjtIaZ8u0A3Hp2 JQNNpRN91NNK8 sPJ0EI21RM76X5VnNjgje GFibGU+PHRhYmxlIHdpZH RoPScxMDAlJyBzdHlsZT0 oQx9mNOPdDOWu yTqvmKSgJdYdo4ufOSUrP JzpOZ5jhYvrJ2MctHP7GE Kue1d2Gn76D01zC0FmzUW +KIXeiME3jSE4 rU4xYdTqKkC4EYswH542I iWvhWEoSkitc6mpd0rxlW f4TkT6SPEmybUijAjcXTY 1y7WgAd61D35m IHdpZHRoPSIxNSUiIHZhb Ldzcc5ifF7zKi0+PGNvbC K5oSC8jI2nUtDkRxK7EEs cY278YvAepQJl Qesda4coy0ggrJs8PrKiE WLxmrAuuHdtGEG4y0EuQc 92V5HyhZodw9OdOse5nq2 7rLEnv2Q6pEP2 Y0CbNDBrkwiaqGVdpSgsE X1wAVAqpxruBBSiyY1wBO XjF4a9UqOgUcG8CYxsU3O plfB6UHVvvMKe QHgdBNB9A03cb4L1OXVvZ QYnDLP8wQA4nL5omAjzwu ogbGVmdDsgdmVydGljYWw zHDjeP340HYWu kAanMGOtyD5kKKEwwYZdg TocKS5xVAIdjkraXeqYAG 5HLCBLUklTVElOQSBFTEF ABlB8Q6EdJvm1 CRMeqNtwWT1aiNPmNJwiE n7enIxckUauDT1eIRAeqh zwEQQorG4yDOKtqCUboVf oPW8mAVMdvror b034ApHkBUX5MCCbcFFbN 0JupO9qFfOnODVjPIWfP1 AgxAOhPLzhX696QDlpZrB 0GYNvpkAcL0Fc PKHatUqmDrF8z3S3Ct0fG j2qQJ6rBEx4TZ08BA28eZ Dey8W5yBS0S3XmPJVpite imclphLQ2QBDh AVMfnP73lCKjQFiwFh2sv 7U2g910SYMoZMQdsR96Af 0cdBtjNSEqxNIQfL8mddp kx4qhxhenGbPr SMYgVQb2DMe4MIIxbGxqD rRbVDD6TyH8CWH2aVWitF 9omLynxeedmT8cJau+MzY sNJPdjdZ1F8Ia Cuv6VNMusKwhVQ0hyVBaB VkjLc0mgKrcmNqtKK0mEJ NlbhwuUSFxuZ9vUQRuoLV lrAtwVT0kBEOc talrn942IfGwZFC0OQLfm IRkM8ZtjL8pRgLaHJQrXV AgD0PvoGIoVZwuA205UIw xJtI7SQZjktBm T0UvPOWsdCisJjP4a2P3N c5XKZ8NPBO8K0FlFtq6KO NrwDbcYN1awOClTBwwKq9 jfQxxrNqvTH9x PBPbxwzhSOJxiI6kIPQjh QQnzBrmPC8cDQZmovuam5 32CdEwOZS7HIZcbXTeH4B mcO2iMpSnZMNp AGDsQ8WbxEKcIOnyJ918L RujOyA9MABwzbZaS9OhTU JpnLaoBsW0m5G9Ex0PYZc vdGQ+DY97kj64 M4FgPeqvYwg4WEUoQRM9l WG7nW2iUUAtJPxuu6H9pC P9N5NwsaAiqn5hn0teLFT oLIkpU11khMQl q3N4UVSaoRR6GBRfqPlkS yWgoT88Cjd+PGNvbGdyb3 CoYngwy5nqg1wnsEb9VhT wJSIgdmFsaWdu AOI4e4DrKi17B99yLRvsZ HRoPSIzMCUiIHZhbGlnbj 3tvA3cCh7+WYWotRW6eFN 0aV5jNnItEmY3 OHnlN589XxEwwQUvTimoy 1yew8kxnKk2HzWoGNGasx MiuGxcIVV1c9XjDq48P4V adWnux6UqBxj8 oe81pNRtu0A6yKK7I3VjB KZzufariHSpjNgpEY1mUU VqxqfgCMWfwZ4vLODnA0f 6KvXxWdW6MVxm Z0XzlyU9DEMjhTTwJPLwj RMNhK9uvhhsm9siadkmDr VuGRUcLJc7SNr5QIZudDp mBdSkUSC8PiA6 JLY7kAUjxZ8pfGohwluqs G9wOyc+KBk0z4ahtIGwPY 9guLH2TL55PP25sIAmv7A 5aKA8T8YpXDNp obuagdpsaWZ7GNRhTPXnc E46Yw7yiDblVf9qICFjCI X0SUNvlAObN5YrxZ4kXgY aUCPmJXZgE0Sx nDXjPCuuO882XZlfGqZ6L FKoyqErU3KcLRPntIyuXo G7l3Q1Jx8KLD78OF33PD7 6kHEkq1Y4nVU2 G4PeNTGnahxacxirbVX7Z EAhUJZbjI49Fm5grQfbEk 9pZRWaGHP2RRAosEHeB5R laB4uJyXiRGKj ORTxB6MbrCBoOLnyC551T VqqOyW6IPGrzqGnV5UdVM FtfKnxWcS3n2Z4Lv5FFq8 5YW76OL34pHVs e0F4kOL1I8UuPFBprkviq nwevCD7GKLtJVPvhF55Tj 1cyBmpPv1qHDYbQFI8JUH exOVsE8EeoB4i IaMbPKIkVMJsY7YepTCzM RlkZ461IVsfSzB4RYHusn CpF3KoLXPosXtgDzG1s7N 1Yp7QNWkpnfl8 G1XrGxdbaVU+HR41YHUvW P40lTArwXFau7fefEu7Ia XaJZUaPJD7vFviIYscn7X kITOuI31xiBEv c2U (more content not included)... [facility] Outside Recordson 09-30-2022 Outside Records [id number]. [id number] [facility] ED Clinical Summaryon 2021 ED Clinical Summary [facility] Ur[facility] Care [address] [place] [address] Clinical Summary PERSON INFORMATION Name: NOBLE SANTIAGO Age: 37 Years Sex: FEMALE : 1985 MRN: Acct#: Visit Reason: Medical screening exam; ADULT SCHOOL PHYSICAL Arrival: 09/29/2022 10:32:28 Discharge: 09/29/2022 11:15:00 LOS: 000 00:43 Check In: 09/29/2022 10:32:28 Checkout: 09/29/2022 11:15:00 Address: [address] [place] [address] PCP: Ame Ortiz CNP PROVIDER INFORMATION Provider [...] regina verbalizes understanding of instructions given Comment: [facility] ED Patient Summaryon 022 ED Patient Summary [facility] ? Urgent Care [address] [place] [address] PATIENT DISCHARGE INSTRUCTIONS Patient Information Name: NOBLE SANTIAGO Age: 37 Years Date of : 1985 Reason For Visit: Medical screening exam; ADULT SCHOOL PHYSICAL Arrival Time: 09/29/2022 10:32:28 Primary Care Physician: Ame Ortiz CNP Attending Physician: Abhi Finney PA-C Comment: Patient Education Medication Information: The exam and treatment you received today in the [facility] Emergency Department were for an urgent problem and are not intended as complete care. It is important for you to follow up with a doctor, nurse practitioner, or physician?s customer service assistant for ongoing care. If your symptoms [...] so we can reach you if necessary. [facility] Emergency Department has provided you with a complete list of medications post discharge. 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 rizatriptan (Maxalt-HYDRAULIC AUTO JACK MECHANIC 10 mg oral tablet, disintegrating) 1 tab(s) [...] Diagnosis: Diagnoses This Visit Medical screening exam ([id number]) If you received any narcotics, sedation, or [...] the Ans (more content not included)... Normal [facility] Note- Provideron 09-29-2022 Urgent Care [...] tab(s), PO, Daily, 28 tab(s), 0 Refill(s) Maxalt-HYDRAULIC AUTO JACK MECHANIC 10 mg oral tablet, disintegratin mg = [...] selected or recorded.. Surgical history: Diagnostic laparoscopy ([id number]) on 07/24/2019 at 34 Years. Tonsillectomy and adenoidectomy ([id number]). Lump ([id number]). Comments: 07/16/2019 11:30 Arabella Day RN left axilla Cholecystectomy ([id number]). Keloid of skin (03749084). Comments: 07/16/2019 11:31 Arabella Day RN left ear Foot ([id number]). Comments: 07/16/2019 11:32 Arabella Day RN titanium implant left ankle Dilatation and curettage ([id number]). Tooth extraction, multiple ([id number]). Comments: 07/16/2019 11:33 Arabella Day RN wisdom Sinus ([id number]). Comments: 07/16/2019 11:33 Arabella Day RN x2 Colonoscopy ([id number]). Esophagogastroduodeno scopy ([id number]).. Family history: No family history items have [...] 09/29/2022 11:09 EST] Abhi Finney PA-C Normal [facility] Recordon 022 Urgent Care Record [facility] Ur[facility] Care [address] [place] [address] PATIENT DISCHARGE INSTRUCTIONS Patient Information Name: NOBLE SANTIAGO Age: 37 Years Date of : 1985 Reason For Visit: Medical screening exam; ADULT SCHOOL PHYSICAL Arrival Time: 09/29/2022 10:32:28 Primary Care Physician: Ame Ortiz CNP Attending Physician: Abhi Finney PA-C Comment: Visit Diagnosis: Diagnoses This Visit Medical screening exam ([id number]) If you received any narcotics, sedation, or [...] and treatment you received today in the [facility] Urgent Care were for an urgent problem and are not intended as complete care. It is important for you to follow up with a doctor, nurse practitioner, or physician?s customer service assistant for ongoing care. If your symptoms [...] so we can reach you if necessary. [facility] has provided you with a complete list of medications post discharge. 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 ethinyl estradiol-norethindro ne ( oral tablet) 1 tab(s) Oral every day. mupirocin topical (mupirocin 2% topical ointment) 1 suraj Topical 3 times a day as needed dry nasal passages. omeprazole (PriLOSEC 40 mg oral delayed release capsule) 1 cap(s) Oral every day. rizatriptan (Maxalt-HYDRAULIC AUTO JACK MECHANIC 10 mg oral tablet, disintegrating) 1 tab(s) [...] Disease Control and Prevention July 2014 Normal [facility] T3, TOTAL (TRIIODOTHYRONINE) on 09-16-2022 T3, TOTAL 132 ng/dL Normal 71-180 [facility] Comment on above: Performed By: #### T 3TOTAL ####[facility] [address] [place] [id number]. Phong Thayer CBC AUTO DIFFon 09-15-2022 BASO # 0.0 103/ul Normal 0.0-0.1 [facility] Comment on above: Performed By: #### C BC #### [facility] [address] [address] [address] Phong Thayer Basophils/100 WBC (Bld) 0.3 % Normal 0.2-2.0 [facility] Comment on above: Performed By: #### C BC #### [facility] [address] [address] [address] Phong Thayer EO # 0.1 103/ul Normal 0.0-0.7 [facility] Comment on above: Performed By: #### C BC #### [facility] [address] [address] [address] Phong Thayer Eosinophils/100 WBC (Bld) 0.8 % Critically low 0.9-7.0 [facility] Comment on above: Performed By: #### C BC #### [facility] [address] [address] [address] Phong Thayer Erythrocyte distribution width (RBC) [Ratio] 12.5 % Normal 11.0-15.0 [facility] Comment on above: Performed By: #### C BC #### [facility] [address] [place] [address] Dr. Phong Thayer Hematocrit (Bld) [Volume fraction] 42.2 % Normal 36.0-48.0 [facility] Comment on above: Performed By: #### C BC #### [facility] [address] [address] [address] Phong Thayer Hemoglobin (Bld) [Mass/Vol] 14.3 g/dL Normal 12.0-16.0 [facility] Comment on above: Performed By: #### C BC #### [facility] [address] [address] [address] Phong Thayer IG # 0.01 10e3/ul Normal 0.00-0.03 [facility] Comment on above: Performed By: #### C BC #### [facility] [address] [place] [address] Dr. Phong Thayer IG % 0.1 % Normal 0.0-0.5 [facility] Comment on above: Performed By: #### C BC #### [facility] [address] [place] [address] Dr. Phong Thayer LYMPH # 2.5 103/ul Normal 1.2-3.8 [facility] Comment on above: Performed By: #### C BC #### [facility] [address] [place] [address] Dr. Phong Thayer Lymphocytes/100 WBC (Bld) 33.7 % Normal 20.5-60.0 [facility] Comment on above: Performed By: #### C BC #### [facility] [address] [place] [address] Dr. Phogn Thayer MANUAL DIFF REQ NO Normal [facility] Comment on above: Performed By: #### C BC #### [facility] [address] [place] [address] Dr. Phong Thayer MCH (RBC) [Entitic mass] 29.1 pg Normal 26.7-34.0 [facility] Comment on above: Performed By: #### C BC #### [facility] [address] [place] [address] Dr. Phong Thayer MCHC (RBC) [Mass/Vol] 33.9 g/dL Normal 29.9-35.2 [facility] Comment on above: Performed By: #### C BC #### [facility] [address] [place] [address] Dr. Phong Thayer MCV (RBC) [Entitic vol] 85.9 fL Normal 81.0-99.0 [facility] Comment on above: Performed By: #### C BC #### [facility] [address] [place] [address] Dr. Phong Thayer MONO # 0.4 103/ul Normal 0.3-0.8 [facility] Comment on above: Performed By: #### C BC #### [facility] [address] [place] [address] Dr. Phong Thayer Monocytes/100 WBC (Bld) 5.3 % Normal 1.7-12.0 [facility] Comment on above: Performed By: #### C BC #### [facility] [address] [place] [address] Dr. Phong Thayer NEUT # 4.5 103/ul Normal 1.4-6.5 [facility] Comment on above: Performed By: #### C BC #### [facility] [address] [place] [address] Dr. Phong Thayer Neutrophils/100 WBC (Bld) 59.8 % Normal 43.0-75.0 [facility] Comment on above: Performed By: #### C BC #### [facility] [address] [place] [address] Dr. Phong Thayer Platelet mean volume (Bld) [Entitic vol] 10.2 fL Normal 9.5-13.5 [facility] Comment on above: Performed By: #### C BC #### [facility] [address] [place] [address] Dr. Phong Thayer PLT 227 103/ul Normal 150-450 [facility] Comment on above: Performed By: #### C BC #### [facility] [address] [place] [address] Dr. Phong Thayer RBC 4.91 106/ul Normal 4.20-5.40 [facility] Comment on above: Performed By: #### C BC #### [facility] [address] [place] [address] Dr. Phong Thayer WBC 7.5 103/ul Normal 4.0-11.0 [facility] Comment on above: Performed By: #### C BC #### [facility] [address] [place] [address] Dr. Phong Thayer FREE THYROXINE INDEX T7on FTI 2.37 Normal 1.30-4.50 [facility] Comment on above: Performed By: #### T SH, T4, T7, CMP #### [facility] [address] [place] [address] Dr. Phong Thayer T3U 32.0 % Normal 30.0-39.0 [facility] Comment on above: Performed By: #### T SH, T4, T7, CMP #### [facility] [address] [place], [place] [address] Dr. Phong Thayer LIPID PROFILEon 09-15-2022 CHOL-HDL RATIO NORM SEE BELOW Normal [facility] Comment on above: Result Comment: 3.3 - 4.4 LOW RISK 4.4 - 7.1 AVERAGE RISK 7.1 - 11.0 MODERATE RISK >11.0 HIGH RISK Performed By: #### L IPID ####[facility] [address] [place], [place] [address]BcAnnalee Thayer Cholesterol [Mass/Vol] 163 mg/dL Normal <=200 [facility] Comment on above: Performed By: #### L IPID ####[facility] [address] [place], [place] [address]AdAnnalee Thayer Cholesterol in HDL [Mass/Vol] 57 mg/dL Normal 40-60 [facility] Comment on above: Performed By: #### L IPID ####[facility] [address] [place], [place] [address]UlAnnalee Thayer Cholesterol in LDL [Mass/Vol] 69.8 mg/dL Normal [facility] Comment on above: Performed By: #### L IPID ####[facility] [address] [place], [place] [address]DrAnnalee Thayer Cholesterol.total/Ch olesterol in HDL [Mass ratio] 2.9 {ratio} Normal [facility] Comment on above: Performed By: #### L IPID ####[facility] [address] [place], [place] [address]AdAnnalee Thayer HDL NORMAL > or = 60 mg/dl - LO W CARDIOVASCULAR RISK <40 mg/dl - HIGH CARDIOVASCULAR RISK Normal [facility] Comment on above: Performed By: #### L IPID ####[facility] [address] [place], [place] [address]NiAnnalee Thayer LDL CALC NORMAL SEE BELOW Normal [facility] Comment on above: Result Comment: <100 mg/dl OPTIMAL 100 - 129 mg/dl NEAR OR ABOVE OPTIMAL 130 - 159 mg/dl BORDERLINE HIGH 160 - 189 mg/dl HIGH >190 mg/dl VERY HIGH Performed By: #### L IPID ####[facility] [address] [place] [address]Dr. Phong Thayer Triglyceride [Mass/Vol] 181 mg/dL Critically high <=150 [facility] Comment on above: Performed By: #### L IPID ####[facility] [address] [place] [address]DrAnnalee Thayer VLDL CALC 36.2 mg/dL Normal [facility] Comment on above: Performed By: #### L IPID ####[facility] [address] [place] [address]DrAnnalee Thayer PROF 14(COMP METB)on 022 Albumin [Mass/Vol] 3.6 g/dL Normal 3.4-5.0 [facility] Comment on above: Performed By: #### T SH, T4, T7, CMP #### [facility] [address] [place] [address] [address] Phong Thayer Albumin/Globulin [Mass ratio] 1.0 {ratio} Normal [facility] Comment on above: Performed By: #### T SH, T4, T7, CMP #### [facility] [address] [address] [address] Phong Thayer ALP [Catalytic activity/Vol] 90 U/L Normal 46-116 [facility] Comment on above: Performed By: #### T SH, T4, T7, CMP #### [facility] [address] [place] [address] [address] Phong Thayer ALT [Catalytic activity/Vol] 27 U/L Normal 14-59 [facility] Comment on above: Performed By: #### T SH, T4, T7, CMP #### [facility] [address] [place] [address] [address] Phong Thayer Anion gap [Moles/Vol] 14.2 mmol/L Normal [facility] Comment on above: Performed By: #### T SH, T4, T7, CMP #### [facility] [address] [place] [address] Dr. Phong Thayer AST [Catalytic activity/Vol] 13 U/L Critically low 15-37 [facility] Comment on above: Performed By: #### T SH, T4, T7, CMP #### [facility] [address] [place] [address] Dr. Phong Thayer Bilirubin [Mass/Vol] 0.2 mg/dL Normal 0.2-1.0 [facility] Comment on above: Performed By: #### T SH, T4, T7, CMP #### [facility] [address] [place] [address] Dr. Phong Thayer Calcium [Mass/Vol] 9.0 mg/dL Normal 8.5-10.1 [facility] Comment on above: Performed By: #### T SH, T4, T7, CMP #### [facility] [address] [place] [address] Dr. Phong Thayer Chloride [Moles/Vol] 103 mmol/L Normal 98-107 [facility] Comment on above: Performed By: #### T SH, T4, T7, CMP #### [facility] [address] [place] [address] Dr. Phong Thayer CO2 [Moles/Vol] 23.9 mmol/L Normal 21.0-32.0 [facility] Comment on above: Performed By: #### T SH, T4, T7, CMP #### [facility] [address] [place] [address] Dr. Phong Thayer Creatinine [Mass/Vol] 0.76 mg/dL Normal 0.55-1.02 [facility] Comment on above: Performed By: #### T SH, T4, T7, CMP #### [facility] [address] [place] [address] Dr. Phong Thayer EGFR-AF CONGOLESE >60 Normal >=60 [facility] Comment on above: Performed By: #### T SH, T4, T7, CMP #### [facility] [address] [place] [address] Dr. Phong Thayer EGFR-NON AF CONGOLESE >60 Normal >=60 [facility] Comment on above: Performed By: #### T SH, T4, T7, CMP #### [facility] [address] [address] [address] Phong Thayer Globulin (S) [Mass/Vol] 3.6 g/dL Normal [facility] Comment on above: Performed By: #### T SH, T4, T7, CMP #### [facility] [address] [place] [address] [address] Phong Thayer Glucose [Mass/Vol] 95 mg/dL Normal 74-106 [facility] Comment on above: Performed By: #### T SH, T4, T7, CMP #### [facility] [address] [place] [address] Dr. Phong Thayer Potassium [Moles/Vol] 4.1 mmol/L Normal 3.5-5.1 [facility] Comment on above: Performed By: #### T SH, T4, T7, CMP #### [facility] [address] [place] [address] Dr. Phong Thayer Protein [Mass/Vol] 7.2 g/dL Normal 6.4-8.2 [facility] Comment on above: Performed By: #### T SH, T4, T7, CMP #### [facility] [address] [place] [address] Dr. Phong Thayer Sodium [Moles/Vol] 137 mmol/L Normal 136-145 [facility] Comment on above: Performed By: #### T SH, T4, T7, CMP #### [facility] [address] [place] [address] Dr. Phong Thayer Urea nitrogen [Mass/Vol] 13.0 mg/dL Normal 7.0-18.0 [facility] Comment on above: Performed By: #### T SH, T4, T7, CMP #### [facility] [address] [place] [address] Dr. Phong Thayer Urea nitrogen/Creatinine [Mass ratio] 17.1 mg/mg Normal [facility] Comment on above: Performed By: #### T SH, T4, T7, CMP #### [facility] [address] [place], [place] [address] Dr. Phong Thayer T4on 09-15-2022 T4 [Mass/Vol] 7.40 ug/dL Normal 4.80-13.90 [facility] Comment on above: Performed By: #### T SH, T4, T7, CMP #### [facility] [address] [id number] Phong Thayer TSHon 09-15-2022 TSH 2.515 uIU/mL Normal 0.358-3.740 [facility] Comment on above: Performed By: #### T SH, T4, T7, CMP #### [facility] [address] [address] [address] Phong Thayer VITAMIN B12on 09-15-2022 Cobalamin (Vitamin B12) [Mass/Vol] 423.0 pg/mL Normal 193.0-986.0 [facility] Comment on above: Performed By: #### V ITCLAIRE VITB12 ####[facility] [address] [place] [address]DrAnnalee Thayer VITAMIN D 25 OHon 09-15-2022 VIT D 25-OH 28.3 ng/mL Normal [facility] Comment on above: Performed By: #### V ITCLAIRE, VITB12 ####[facility] [address] [place] [address]DrAnnalee Thayer VIT D RANGES SEE BELOW Normal [facility] Comment on above: Result Comment: <20 ng/mL Vit D deficient 20 - <30 ng/mL Vit D insufficient 30 - 100 ng/mL Vit D sufficient >100 ng/mL Potential Toxicity Performed By: #### V ITCLAIRE, VITB12 ####[facility] [address] [place] [address]Dr. Phong Thayer A1C HEMOGLOBINon 09-02-2022 HbA1c (Bld) [Mass fraction] 5.1 % [employer] Other HbA1c (Bld) [Mass fraction]o n 09-02-2022 A1C HEMOGLOBIN [facility] [employer] Other Lab - Reference Lab Resultso n 07-19-2022 Lab - Reference Lab Results [id number] 0OTGTIFF [facility] T-Spoton 07-16-2022 T-Spot See Report Normal [facility] Comment on above: Performed By: #### 5 [id number], [id number], [id number] ####[facility] (DEFAULT)[address] [place] [address] HBSab Qnt LCon 07-14-2022 Hep B Surf Ab Quant LC 301.3 mIU/mL Invalid Interpretation Code Immunity>9.9 [facility] Comment on above: Result Comment: Stat us of Immunity Anti-HBs Level Inconsistent with Immunity 0.0 - 9.9 Consistent with Immunity >9.9 Performed At: [facility] [id number] Pancho Higgins PhD Ph:[phone] Performed By: #### 5 [id number], [id number], [id number] ####[facility] (DEFAULT)[address] [place] [address] Lab - Toxicology Resultson 0 07-14-2022 Lab - Toxicology Results [id number] 0OTGTIFF [facility] Measles/Mumps/Rubella Immuni ty LCon 07-14-2022 Mumps Abs, IgG LC 38.4 AU/mL Invalid Interpretation Code Immune >10.9 [facility] Comment on above: Result Comment: Nega tive <9.0 Equivocal 9.0 - 10.9 Positive >10.9 A positive result generally indicates past exposure to Mumps virus or previous vaccination. Performed At: [address] [id number] Pancho Higgins PhD Ph:[phone] Performed By: #### 5 [id number], [id number], [id number] ####[facility] (DEFAULT)[address] [place] [address] Rubella Antibodies, IgG LC 5.78 index Invalid Interpretation Code Immune >0.99 [facility] Comment on above: Result Comment: Non- immune <0.90 Equivocal 0.90 - 0.99 Immune >0.99 Performed By: #### 5 [id number], [id number], [id number] ####[facility] (DEFAULT)[address] [place] [address] Rubeola Ab, IgG, EIA LC 72.4 AU/mL Invalid Interpretation Code Immune >16.4 [facility] Comment on above: Result Comment: Nega tive <13.5 Equivocal 13.5 - 16.4 Positive >16.4 Presence of antibodies to Rubeola is presumptive evidence of immunity except when acute infection is suspected. Performed By: #### 5 [id number], [id number], [id number] ####[facility] (DEFAULT)[address] [place] [address] Nicotine Metabolite, Urine L Con 07-14-2022 Cotinine LC Negative Invalid Interpretation Code Ourupj=121 [facility] Comment on above: Result Comment: Perf ormed At: [facility] [address] [facility], [place] [id number] Mark Puentes PhD Ph:[phone] Performed By: #### 1 [id number] ####[facility] (DEFAULT)[address] [place] [address] XR FOOT AIDA MIN 3 VIEWSon XR [...] by: RAFAEL COATS Date: 2022-07-07 13:58 Normal [facility] Urine culture routineOrdered By: AME ORTIZ on 05-27-2022 Bacteria identified Cx Nom (U) Staphylococcus saprophyticus [facility] Urinalysis - AUTOMATEDon Appearance (U) clear [email or web address] Other Bilirubin Ql (U) Negative [employer] Other Color (U) lt. yellow [employer] Other Glucose Ql (U) Negative [email or web address] Other Hemoglobin Ql (U) moderate [employer] Other Ketones Ql (U) Negative [email or web address] Other Leukocyte esterase Test strip Ql (U) small [employer] Other Nitrite Ql (U) Negative [email or web address] Other pH (U) 6.0 [pH] [employer] Other Protein Ql (U) Negative [email or web address] Other Specific gravity (U) [Rel density] 1.010 [employer] Other Urobilinogen (U) [Mass/Vol] 0.2 mg/dL [employer] Other Urinalysis - AUTOMATED [employer] Other Urine Cultureon 05-24-2022 Bacteria identified Cx Nom (U) [employer] Other XR hand LT min 3V*on 12-03-2 021 XR hand LT min 3V* [facility] [employer] Other XR hand LT min 3V* [facility] [employer] Other XR hand LT min 3V* [address] [facility] [employer] Other XR hand LT min 3V* CLAUDIA Owens [address] [employer] Other XR hand LT min 3V* XRay Report [employer] Other XR hand LT min 3V* Signed [employer] Other XR hand LT min 3V* Patient: Noble Santiago MR#: [id number] [employer] Other XR hand LT min 3V* 7804 [employer] Other XR hand LT min 3V* : 1985 Acct:[id number] [employer] Other XR hand LT min 3V* Age/Sex: 36 / F ADM Date: 10/02/21 [employer] Other XR hand LT min 3V* Loc: XDUCLY Room: Type: REG CLI [employer] Other XR hand LT min 3V* Attending Dr: Sera ALFORD [employer] Other XR hand LT min 3V* Ordering Provider: PRASHANTH Jordan [employer] Other XR hand LT min 3V* Date of Service: 10/02/21 [employer] Other XR hand LT min 3V* XR/XR hand LT min 3V*: Finger pain, left [employer] Other XR hand LT min 3V* Copies to: PRASHANTH Jordan [employer] Other XR hand LT min 3V* 3 viewsLEFT hand plain film [employer] Other XR hand LT min 3V* COMPARISON:None N [facility] [employer] Other XR hand LT min 3V* HISTORY:LEFT hand injury [employer] Other XR hand LT min 3V* No fracture, dislocation or focal soft tissue abnormality seen. [employer] Other XR hand LT min 3V* XR/XR hand LT min 3V* [employer] Other XR hand LT min 3V* IMPRESSION:No acute findings [employer] Other XR hand LT min 3V* Impression dictated by: Fuad Swain M.D.10/02/2021 6:01 PM [employer] Other XR hand LT min 3V* Dictation Location: [place] [address] [employer] Other XR hand LT min 3V* Transcribed By: PWS 10/02/21 180 [employer] Other XR hand LT min 3V* Dictated By: Fuad Swain DO 10/02/21 1759 [employer] Other XR hand LT min 3V* Signed By: [employer] Other XR hand LT min 3V* 10/02/21 1801 Nor [employer] Other Automated basophil %on 11-25 Basophils/100 WBC (Bld) 1.0 % [facility] [facility] Automated basophil counton 0 11-25-2020 Basophils (Bld) [#/Vol] 0.1 10*3/uL 0.0-0.2 [facility] Automated blood lymphocyte c ount (number/volume)on 11-25-2020 Lymphocytes (Bld) [#/Vol] 2.2 10*3/uL 1.00-4.8 [facility] Automated blood lymphocyte c ount as percentage of total leukocyteson 11-25-2020 Lymphocytes/100 WBC (Bld) 29.2 % [facility] Automated blood monocyte cou nton 11-25-2020 Monocytes (Bld) [#/Vol] 0.4 10*3/uL 0.0-0.8 [facility] Automated blood platelet cou nt (count/volume)on 11-25-2020 Platelets (Bld) [#/Vol] 247 10*3/uL 150-450 [facility] Automated blood platelet ton n volume measurementon 11-25-2020 Platelet mean volume (Bld) [Entitic vol] 8.8 fL 6.3-10.7 [facility] Automated eosinophil %on Eosinophils/100 WBC (Bld) 1.1 % [facility] Automated eosinophil counton 11-25-2020 Eosinophils (Bld) [#/Vol] 0.1 10*3/uL 0.0-0.45 [facility] Automated erythrocyte distri bution width ratioon 11-25-2020 Erythrocyte distribution width (RBC) [Ratio] 13.3 % 11.9-15.3 [facility] Automated erythrocyte mean c orpuscular hemoglobin (mass per erythrocyte)on 11-25-2020 MCH (RBC) [Entitic mass] 29.2 pg 24.7-34.3 [facility] Automated erythrocyte mean c orpuscular hemoglobin concentration measurement (mass/volon 11-25-2020 MCHC (RBC) [Mass/Vol] 33.6 g/dL 32.0-35.0 [facility] Automated erythrocyte mean c orpuscular volumeon 11-25-2020 MCV (RBC) [Entitic vol] 87.0 fL 80-100 [facility] Automated monocyte %on 11-25 Monocytes/100 WBC (Bld) 5.4 % [facility] Automated neutrophil %on Neutrophils/100 WBC (Bld) 63.3 % [facility] Blood erythrocytes automated count (number/volume)on 11-25-2020 RBC (Bld) [#/Vol] 4.64 10*6/uL 3.60-5.00 [facility] Blood hemoglobin measurement (mass/volume)on 11-25-2020 Hemoglobin (Bld) [Mass/Vol] 13.6 g/dL 11.8-15.4 [facility] Blood leukocytes automated c ount (number/volume)on 11-25-2020 WBC (Bld) [#/Vol] 7.7 10*3/uL 3.8-11.6 [facility] Blood neutrophil count by au tomated method (number/volume)on 11-25-2020 Neutrophils (Bld) [#/Vol] 4.9 10*3/uL 1.8-7.7 [facility] COVID-19 Positive/Negativeon 11-25-2020 COVID-19 Positive/Negative Negative Negative [facility] Comment on above: Testing for SARS-CoV -2 by RT-PCRThis test was developed and its performance characteristics determined by [employer] ([employer]) and validated at the [facility]. This test has not been FDA [...] among non-blacks MDRD (S/P/Bld) [Vol rate/Area] mL/min/{1.73_m2} [facility] Hematocrit [Volume Fraction] of Blood by Automated counton 11-25-2020 Hematocrit (Bld) [Volume fraction] 40.4 % 34.0-46.4 [facility] Otheron 11-25-2020 Coronavirus 2019 PCR Interp N/A [facility] GFR/1.73 sq M.predicted MDRD (S/P/Bld) [Vol rate/Area] mL/min/{1.73_m2} [facility] Comment on above: GFR estimated refere nce range: According to KDOQI guidelines, <60 ml/min/1.73m2 is sufficient to diagnose a patient with chronic kidney disease. Nucleated RBC/100 WBC (Bld) [Ratio] 0.0 % 0-0.5 [facility] Pharmacy Creatinine Clearance (Chem N/A [facility] Serum or plasma calcium eleni urement (mass/volume)on 11-25-2020 Calcium [Mass/Vol] 9.3 mg/dL 8.2-10.2 [facility] Serum or plasma chloride ton surement (moles/volume)on 11-25-2020 Chloride [Moles/Vol] 104 mmol/L 95-114 [facility] Serum or plasma creatinine m easurement with calculation of estimated glomerular filtron 11-25-2020 Creatinine [Mass/Vol] 0.76 mg/dL 0.44-1.03 [facility] Serum or plasma glucose eleni urement (mass/volume)on 11-25-2020 Glucose [Mass/Vol] 96 mg/dL 70-100 [facility] Comment on above: ADA recommended refe rence rangeRandom Glucose Reference Range is dependent on time and content of last meal. Glucose of more than 200 mg/dL in a nonstressed, ambulatory subject supports the diagnosis of Diabetes Mellitus. Serum or plasma potassium me asurement (moles/volume)on 11-25-2020 Potassium [Moles/Vol] 4.1 mmol/L 3.5-5.1 [facility] Serum or plasma sodium measu rement (moles/volume)on 11-25-2020 Sodium [Moles/Vol] 138 mmol/L 136-146 [facility] Serum or plasma total carbon dioxide measurement (moles/volume)on 11-25-2020 CO2 [Moles/Vol] 24.6 mmol/L 22.0-30.0 [facility] Serum or plasma urea nitroge n measurement (mass/volume)on 11-25-2020 Urea nitrogen [Mass/Vol] 6 mg/dL 07-23 [facility] COVID-19 SOFIAon 10-27-2020 COVID-19 MINERVA Negative Negative [facility] Comment on above: This is a duplicate test result based off of the [facility]erva SARS Antigen (LIZ) test performed within the Microbiology department. Otheron 10-27-2020 SARS Antigen (LFIA) [facility] Albumin [Mass/volume] in Ser um or Plasmaon 09-12-2020 Albumin [Mass/Vol] 3.9 g/dL 3.2-5.5 [facility] Cholesterol [Mass/volume] in Serum or Plasmaon 09-12-2020 Cholesterol [Mass/Vol] 175 mg/dL 140-200 [facility] Comment on above: Chol less than 200 m g/dl low riskChol 201-239 mg/dl borderline riskChol 240 mg/dl and greater high risk Cholesterol in LDL [Mass/vol ume] in Serum or Plasma by calculationon 09-12-2020 Cholesterol in LDL [Mass/Vol] 74 mg/dL 0-100 [facility] Comment on above: LDL ATP III CLASSIFI CATIONLDL less than 100 mg/dL OptimalLDL 100-129 mg/dL Near or above optimalLDL 130-159 mg/dL Borderline highLDL 160-189 mg/dL HighLDL greater than 189 mg/dL Very high Cholesterol in VLDL [Mass/vo lume] in Serum or Plasma by calculationon 09-12-2020 Cholesterol in VLDL [Mass/Vol] 44 mg/dL [facility] Estimated glomerular filtrat ion rate (GFR) non- Americanon 09-12-2020 GFR/1.73 sq M predicted among non-blacks MDRD (S/P/Bld) [Vol rate/Area] mL/min/{1.73_m2} [facility] Metabolic Panelon 09-12-2020 Glucose [Mass/Vol] 81 mg/dL 70-100 [facility] Otheron 09-12-2020 GFR/1.73 sq M.predicted MDRD (S/P/Bld) [Vol rate/Area] mL/min/{1.73_m2} [facility] Comment on above: GFR estimated refere nce range: According to KDOQI guidelines, <60 ml/min/1.73m2 is sufficient to diagnose a patient with chronic kidney disease. Pharmacy Creatinine Clearance (Chem N/A [facility] Protein [Mass/volume] in Ser um or Plasmaon 09-12-2020 Protein [Mass/Vol] 6.5 g/dL 6.1-7.9 [facility] Serum globulin measurement b y calculation (mass/volume)on 09-12-2020 Globulin (S) [Mass/Vol] 2.6 g/dL [facility] Serum or plasma alanine rizvi otransferase measurement without P-5'-P (enzymatic activion 09-12-2020 ALT No additional P-5'-P [Catalytic activity/Vol] 22 U/L 10-60 [facility] Serum or plasma albumin/glob ulin mass ratioon 09-12-2020 Albumin/Globulin [Mass ratio] 1.5 {ratio} [facility] Serum or plasma alkaline katherine sphatase measurement (enzymatic activity/volume)on 09-12-2020 ALP [Catalytic activity/Vol] 76 U/L 32-92 [facility] Serum or plasma aspartate am inotransferase measurement (enzymatic activity/volume)on 09-12-2020 AST [Catalytic activity/Vol] 18 U/L 10-42 [facility] Serum or plasma calcium eleni urement (mass/volume)on 09-12-2020 Calcium [Mass/Vol] 9.3 mg/dL 8.2-10.2 [facility] Serum or plasma chloride ton surement (moles/volume)on 09-12-2020 Chloride [Moles/Vol] 101 mmol/L 95-114 [facility] Serum or plasma creatinine m easurement with calculation of estimated glomerular filtron 09-12-2020 Creatinine [Mass/Vol] 0.67 mg/dL 0.44-1.03 [facility] Serum or plasma high density lipoprotein (HDL) cholesterol measurementon 09-12-2020 Cholesterol in HDL [Mass/Vol] 57 mg/dL 35-85 [facility] Comment on above: HDL CHOL ATP-III CLA SSIFICATION Cardiovascular RiskHDL > or equal to 60 mg/dL LOWHDL < 40 mg/dL HIGH Serum or plasma potassium me asurement (moles/volume)on 09-12-2020 Potassium [Moles/Vol] 3.9 mmol/L 3.5-5.1 [facility] Serum or plasma sodium measu rement (moles/volume)on 09-12-2020 Sodium [Moles/Vol] 136 mmol/L 136-146 [facility] Serum or plasma total biliru bin measurement (mass/volume)on 09-12-2020 Bilirubin [Mass/Vol] 0.5 mg/dL 0.3-1.2 [facility] Serum or plasma total carbon dioxide measurement (moles/volume)on 09-12-2020 CO2 [Moles/Vol] 23.4 mmol/L 22.0-30.0 [facility] Serum or plasma total choles terol/high density lipoprotein (HDL) cholesterol mass yany 09-12-2020 Cholesterol.total/Ch olesterol in HDL [Mass ratio] 3.1 {ratio} [facility] Serum or plasma urea nitroge n measurement (mass/volume)on 09-12-2020 Urea nitrogen [Mass/Vol] 7 mg/dL 9-23 [facility] Triglyceride [Mass/volume] i n Serum or Plasmaon 09-12-2020 Triglyceride [Mass/Vol] 220 mg/dL 35-149 [facility] Comment on above: TRIG ATP III CLASSIF ICATIONTRIG less than 150 mg/dL NormalTRIG 150-199 mg/dL Borderline highTRIG 200-500 mg/dL High TRIG greater than 500 mg/dL Very highStandard traceable to the Center for Disease Conrtrol and Prevention (CDC) test method. Vital Signs Date Time Vital Sign Value Performing Clinician Facility 04-09-2024 13:31-0400 Blood Pressure Location Lester Mcelroy [facility] 04-09-2024 13:31-0400 Diastolic blood pressure 84 mm[Hg] Lester Mcelroy [facility] 04-09-2024 13:31-0400 Heart rate 61 /min Lester Mcelroy [facility] 04-09-2024 13:31-0400 Respiratory rate 16 /min Lester Mcelroy [facility] 04-09-2024 13:31-0400 Systolic blood pressure 122 mm[Hg] Lester Burdengermaine [facility] 02-26-2024 14:18-0400 Body height 172.72 cm [facility] 02-26-2024 14:18-0400 Body mass index (BMI) [Ratio] 33.1 kg/m2 [facility] 02-26-2024 14:18-0400 Body temperature 98.2 [degF] [facility] 02-26-2024 14:18-0400 Body weight 98.99 kg [facility] 02-26-2024 14:18-0400 Diastolic blood pressure 76 mm[Hg] [facility] 02-26-2024 14:18-0400 Heart rate 68 /min [facility] 02-26-2024 14:18-0400 Respiratory rate 18 /min [facility] 02-26-2024 14:18-0400 SaO2% (BldA) [Mass fraction] 98 % [facility] 02-26-2024 14:18-0400 Systolic blood pressure 120 mm[Hg] [facility] 10-17-2023 16:30-0500 Body height 162.56 cm Ml Chisholm Other [employer] Other 10-17-2023 16:30-0500 Body mass index (BMI) [Ratio] 34.67 kg/m2 Ml Chisholm Other [employer] Other 10-17-2023 16:30-0500 Body weight 91.63 kg Ml Chisholm Other [employer] Other 10-17-2023 16:30-0500 Diastolic blood pressure 71 mm[Hg] Ml Chisholm Other [employer] Other 10-17-2023 16:30-0500 Respiratory rate 18 /min Ml Chisholm Other [employer] Other 10-17-2023 16:30-0500 SaO2% (BldA) [Mass fraction] 96 % Ml Chisholm Other [employer] Other 10-17-2023 16:30-0500 Systolic blood pressure 112 mm[Hg] Ml Chisholm Other [employer] Other 08-10-2023 11:55-0400 Body height 162.56 cm Sera Smallwoodmond Other [employer] Other 08-10-2023 11:55-0400 Body mass index (BMI) [Ratio] 37.24 kg/m2 Sera Luda Other [employer] Other 08-10-2023 11:55-0400 Body temperature 97.7 [degF] Sera Luda Other [employer] Other 08-10-2023 11:55-0400 Body weight 98.43 kg Sera Luda Other [employer] Other 08-10-2023 11:55-0400 Respiratory rate 18 /min Sera Luda Other [employer] Other 08-10-2023 11:55-0400 SaO2% (BldA) [Mass fraction] 98 % Sera Luda Other [employer] Other 09-08-2022 10:30-0500 Body height 162.56 cm Marleni Missler Other [employer] Other 09-08-2022 10:30-0500 Body mass index (BMI) [Ratio] 34.93 kg/m2 Marleni Missler Other [employer] Other 09-08-2022 10:30-0500 Body weight 92.31 kg Marleni Missler Other [employer] Other 09-08-2022 10:30-0500 Diastolic blood pressure 77 mm[Hg] Marleni Missler Other [employer] Other 09-08-2022 10:30-0500 Respiratory rate 18 /min Marleni Missler Other [employer] Other 09-08-2022 10:30-0500 SaO2% (BldA) [Mass fraction] 96 % Marleni Missler Other [employer] Other 09-08-2022 10:30-0500 Systolic blood pressure 117 mm[Hg] Marleni Missler Other [employer] Other 09-02-2022 15:00-0400 Body height 162.56 cm Ame Ortiz Other [employer] Other 09-02-2022 15:00-0400 Body mass index (BMI) [Ratio] 34.5 kg/m2 Ame Ortiz Other [employer] Other 09-02-2022 15:00-0400 Body temperature 98.6 [degF] Ame Ortiz Other [employer] Other 09-02-2022 15:00-0400 Body weight 91.17 kg Ame Ortiz Other [employer] Other 09-02-2022 15:00-0400 Diastolic blood pressure 82 mm[Hg] Ame Ortiz Other [employer] Other 09-02-2022 15:00-0400 Respiratory rate 18 /min Ame Ortiz Other [employer] Other 09-02-2022 15:00-0400 SaO2% (BldA) [Mass fraction] 86 % Ame Ortiz Other [employer] Other 09-02-2022 15:00-0400 Systolic blood pressure 129 mm[Hg] Ame Ortiz Other [employer] Other 07-10-2022 12:10-0400 Body height 162.56 cm Ame Ortiz Other [employer] Other 07-10-2022 12:10-0400 Body mass index (BMI) [Ratio] 33.91 kg/m2 Ame Ortiz Other [employer] Other 07-10-2022 12:10-0400 Body temperature 98.6 [degF] Ame Ortiz Other [employer] Other 07-10-2022 12:10-0400 Body weight 89.63 kg Ame Ortiz Other [employer] Other 07-10-2022 12:10-0400 Diastolic blood pressure 81 mm[Hg] Ame Ortiz Other [employer] Other 07-10-2022 12:10-0400 Respiratory rate 18 /min Ame Ortiz Other [employer] Other 07-10-2022 12:10-0400 SaO2% (BldA) [Mass fraction] 98 % Ame Ortiz Other [employer] Other 07-10-2022 12:10-0400 Systolic blood pressure 132 mm[Hg] Ame Ortiz Other [employer] Other 05-24-2022 17:00-0400 Body height 162.56 cm Ame Ortiz Other [employer] Other 05-24-2022 17:00-0400 Body mass index (BMI) [Ratio] 34.67 kg/m2 Ame Ortiz Other [employer] Other 05-24-2022 17:00-0400 Body temperature 98 [degF] Ame Ortiz Other [employer] Other 05-24-2022 17:00-0400 Body weight 91.63 kg Ame Ortiz Other [employer] Other 05-24-2022 17:00-0400 Diastolic blood pressure 70 mm[Hg] Ame Patelault Other [employer] Other 05-24-2022 17:00-0400 Respiratory rate 18 /min Ame Patelault Other [employer] Other 05-24-2022 17:00-0400 SaO2% (BldA) [Mass fraction] 99 % Ame Ortiz Other [employer] Other 05-24-2022 17:00-0400 Systolic blood pressure 122 mm[Hg] Ame Patelault Other [employer] Other 10-02-2021 18:20-0500 Body height 162.56 cm Sera Luda Other [employer] Other 10-02-2021 18:20-0500 Body mass index (BMI) [Ratio] 35.01 kg/m2 Sera Luda Other [employer] Other 10-02-2021 18:20-0500 Body temperature 98.2 [degF] Sera Luda Other [employer] Other 10-02-2021 18:20-0500 Body weight 92.53 kg Sera Luda Other [employer] Other 10-02-2021 18:20-0500 Diastolic blood pressure 81 mm[Hg] Sera Luda Other [employer] Other 10-02-2021 18:20-0500 Respiratory rate 18 /min Sera Luda Other [employer] Other 10-02-2021 18:20-0500 SaO2% (BldA) [Mass fraction] 99 % Sera Luda Other [employer] Other 10-02-2021 18:20-0500 Systolic blood pressure 118 mm[Hg] Sera Luda Other [employer] Other 08-22-2021 15:15-0400 Body height 162.56 cm Christiana Jazmynenty Other [employer] Other 08-22-2021 15:15-0400 Body mass index (BMI) [Ratio] 34.33 kg/m2 Christiana Ginty Other [employer] Other 08-22-2021 15:15-0400 Body weight 90.72 kg Christiana Ginty Other [employer] Other Encounters Encounter Date Encounter Type Care Provider Facility Start: 04-09-2024 End: 04-09-2024 ambulatory Lester Mcelroy Facility:[facility] Start: 04-09-2024 End: 04-09-2024 Patient encounter procedure Lester Mcelroy [facility] Start: 04-09-2024 End: 04-09-2024 ambulatory Lester Mcelroy Facility:[facility] Start: 04-09-2024 End: 04-09-2024 Patient encounter procedure Lester Mcelroy [facility] Start: 03-15-2024 End: 03-15-2024 ambulatory LUIS EDUARDO AMA Not Available Start: 02-26-2024 End: 02-26-2024 ambulatory CORROSION PREVENTION METAL [employer]ER-C [facility] Work Phone: Start: 02-26-2024 End: 02-26-2024 Patient encounter procedure CORROSION PREVENTION METAL SPRAYER-C Ame [facility] Work Phone: Start: 02-23-2024 End: 02-23-2024 ambulatory CHELSEA M ANDREA-NOSSEK Not Available Start: 01-26-2024 End: 01-26-2024 ambulatory CHELSEA Ribeiro ADNREA-NOSSEK Not Available Start: 12-08-2023 End: 12-08-2023 ambulatory Ame Ortiz Facility:[facility] Start: 12-08-2023 End: 12-08-2023 ambulatory CORROSION PREVENTION METAL SPRAYER-C Ame Ortiz [facility] Work Phone: Start: 12-08-2023 End: 12-08-2023 Departed Referred CORROSION PREVENTION METAL SPRAYER-C Ame Ortiz [facility]-LAB [facility] Start: 11-16-2023 End: 11-16-2023 ambulatory CHELSEA Ribeiro ANDREA-NOSSEK Not Available Start: 10-26-2023 End: 10-26-2023 ambulatory LUIS EDUARDO SERRATO Not Available Start: 10-17-2023 End: 10-17-2023 ambulatory Ml Chisholm Other [employer] Other Start: 10-17-2023 Office outpatient visit 15 minutes Ml Chisholm [facility] Start: 10-17-2023 End: 10-17-2023 Patient encounter procedure CORROSION PREVENTION METAL SPRAYER-C mAe Ortiz [facility] Work Phone: Start: 08-10-2023 End: 08-10-2023 ambulatory Sera Lares Other [employer] Other Start: 08-10-2023 Office outpatient visit 15 minutes Sera Lares [facility] Start: 04-16-2023 End: 04-17-2023 ambulatory Ame Ortiz Facility:[facility] Start: 02-02-2023 End: 02-03-2023 ambulatory AME ORTIZ Facility: Start: 01-26-2023 ambulatory AME ORTIZ Facil ity:[facility] Start: 01-17-2023 End: 01-17-2023 Lab Drop off AME ORTIZ [facility] Start: 12-16-2022 End: 12-16-2022 ambulatory Cong Cobian Facility:[facility] Start: 10-31-2022 End: 10-31-2022 ambulatory PHYSICIAN NO [facility] Work Phone: Start: 10-31-2022 End: 10-31-2022 Patient encounter procedure PHYSICIAN NO [facility]-Self Pay Exercise Program Start: 10-23-2022 End: 10-23-2022 ambulatory FARHEEN CAMACHO . Facility:[facility] Start: 10-13-2022 End: 10-13-2022 Patient encounter procedure PHYSICIAN NO [facility]-MRI [facility] [place] Work Phone: Start: 10-13-2022 Registered Recurring PHYSICIAN NO NITZA [facility]Weight Management Work Phone: Start: 10-12-2022 End: 10-12-2022 ambulatory PHYSICIAN NO [facility] Work Phone: Start: 10-12-2022 End: 10-12-2022 Patient encounter procedure PHYSICIAN NO [facility] [place] Start: 10-11-2022 Registered Recurring PHYSICIAN NO [facility]Weight [facility] Start: 10-11-2022 End: 10-11-2022 ambulatory Marleni Jordan Other [employer] Other Start: 10-11-2022 Telephone encounter Marleni [facility] Start: 09-29-2022 End: 09-29-2022 ambulatory Abhi Madeline Finney Facility:[facility] Start: 09-15-2022 End: 09-16-[address] DOCTOR LANDEROS Facility: Start: 09-08-2022 End: 09-08-2022 ambulatory Marleni Jordan Other [employer] Other Start: 09-08-2022 Nutrition therapy Marleni [facility] Start: 09-02-2022 End: 09-02-2022 ambulatory Ame Ortiz Other [employer] Other Start: 09-02-2022 Office outpatient visit 15 minutes Ame Ortiz [facility] Start: 08-02-2022 End: 08-02-2022 ambulatory Debra Celestin Other [employer] Other Start: 08-02-2022 Telephone encounter Debra Celestin [facility] Start: 07-14-2022 End: 07-14-2022 ambulatory Ame Ortiz Facility:[facility] Start: 07-10-2022 End: 07-10-2022 ambulatory Ame Ortiz Other [employer] Other Start: 07-10-2022 Office outpatient visit 15 minutes Ame Ortiz [facility] Start: 07-07-2022 End: 07-08-[address] CONOR BEAL Facility: Start: 06-26-2022 End: 06-26-2022 ambulatory Ame Ortiz Other [employer] Other Start: 06-26-2022 Telephone encounter Ame browning [facility] [place] Start: 05-24-2022 End: 05-24-2022 Departed Referred CORROSION PREVENTION METAL SPRAYER-C Ame Ortiz Work Phone: [facility] [place] Start: 05-24-2022 End: 05-24-2022 ambulatory Ame Ortiz Other [employer] Other Start: 05-24-2022 Office outpatient visit 15 minutes Ame Ortiz [facility] Start: 05-19-2022 End: 05-19-2022 ambulatory Ame Ortiz Other [employer] Other Start: 05-19-2022 Telephone encounter Amepatrick Garcial t [facility] Start: 05-11-2022 ambulatory BRITNI GRANT Facilit y:[facility] Start: 12-11-2021 End: 12-11-2021 ambulatory Ame Nik Other [employer] Other Start: 12-11-2021 Telephone encounter Amepatrick Garcial t [facility] Start: 10-02-2021 End: 10-02-2021 ambulatory Sera Luda Other [employer] Other Start: 10-02-2021 Office outpatient visit 15 minutes Sera Luda [facility] Start: 08-22-2021 End: 08-22-2021 ambulatory Christiana Ginty Other [employer] Other Start: 08-22-2021 Office outpatient visit 15 minutes Christiana Ginty [facility] Start: 11-25-2020 End: 11-25-2020 Patient encounter procedure Kit Reyes ([facility]) -Pre-Surgical Testing Start: 10-27-2020 End: 10-27-2020 Patient encounter procedure Kit Reyes ([facility]) -[place] COVID Testing Start: 09-12-2020 End: 09-12-2020 Departed Referred Kit Reyes ([facility]) -[facility] RT 250 Procedures Date Procedure Procedure Detail Performing Clinician Start: 12-01-2023 ft (qualifier value) Bertram Mcelroy Comment on above: flat foot Start: 10-13-2022 MRI of head PHYSICIAN NO FAMILY Start: 10-27-2020 SARS Antigen (LFIA) Nirmal Reyes ([facility]) Cholecystectomy AME HI Dilation and curettage NAA ORTIZ History of cholecystectomy S/P cholecyste ctomy Lester Mcelroy Nasal sinus structur e (body structure) AME ORTIZ Tonsillectomy AME MCCLURE ULT Urine culture CORROSION PREVENTION METAL SPRAYER-C Sil Ortiz Work Phone: wisdom teeth AME GARCIA Immunizations Immunization Date Immunization Notes Care Provider Fa cili 08-04-2022 influenza virus vaccine, unspecified formulation Mohamad Mouchli [facility] 07-13-2022 SARS-CoV-2 (COVID-19 ) mRNA-[id number] vaccine Mohamad Mouchli [facility] 11-22-2021 COVID-19 Vaccine Moderna - Documentation Purposes Only Ame Ortiz Other [facility] 08-13-2020 influenza virus vaccine, unspecified formulation Mohamad Mouchli [facility] 08-07-2020 influenza virus vaccine, unspecified formulation Mohamad Mouchli [facility] 08-09-2019 hepatitis B vaccine, adult dosage Mohamad Mouchli [facility] 08-05-2019 influenza virus vaccine, unspecified formulation Mohamad Mouchli [facility] 03-15-2019 hepatitis B vaccine, adult dosage Mohamad Mouchli [facility] 03-15-2019 varicella virus vaccine Moha mad Mouchli [facility] 02-08-2019 hepatitis B vaccine, adult dosage Mohamad Mouchli [facility] 02-08-2019 tetanus toxoid, redu emmett diphtheria toxoid, and acellular pertussis vaccine, adsorbed Mohamad Mouchli [facility] 02-08-2019 varicella virus vaccine Leo Mcelroy [facility] 01-07-2019 influenza virus vaccine, unspecified formulation Lester Mcelroy [facility] Payers Date Payer Category Payer Unknown 2022 Self-pay [id number] 1985 Unknown [id number] 2.16.84 0.1.280703.3.579.2.593 1986 Unknown [id number] 2.16.84 0.1.453756.3.579.2.593 1986 Unknown [id number] 2.16.84 0.1.192161.3.579.2.593 1986 Unknown [id number] 2.16.84 0.1.189999.3.579.2.593 1986 Unknown [id number] 2.16.84 0.1.322334.3.579.2.593 1986 Unknown [id number] 2.16.84 0.1.335537.3.579.2.593 1986 Unknown [id number] 2.16.84 0.1.274400.3.579.2.593 1986 Unknown [id number] 2.16.8 40.1.504872.3.579.2.718 1986 Unknown [id number] 2.16.84 0.1.310457.3.579.2.718 1986 Unknown [id number] 2.16.84 0.1.605789.3.579.2.1259 1986 Unknown [id number] 2.16.84 0.1.255131.3.579.2.1259 1986 Unknown [id number] 2.16.84 0.1.411300.3.579.2.1259 1986 Unknown [id number] 2.16.8 40.1.695440.3.579.2.727 1986 Unknown [id number] 2.16.8 40.1.274680.3.579.2.727 1985 Unknown [id number] 2.16.84 0.1.486855.3.579.2.1259 1985 Unknown [id number] 2.16.840 .1.052640.3.579.2.1259 1959 Private Health Insurance [id number] Private Health Insurance [id number] 2.16.840.1.131519.19 Unknown [id number] Unknown [id number] Unknown [id number] Social History Date Type Detail Facility Start: 11-25-2020 End: 04-09-2024 Tobacco smoking status NHIS Never smoked tobacco (finding) [facility] Start: 1985 Sex Assigned At Female F [facility] Sex Assigned At [facility] Medical Equipment Procedure Code Equipment Code Equipment Origin al Text Equipment Identifier Dates Test Strips as directed Start: 09-02-2022 Goals Date Patient Goal Desired Activity /State Functional Status Date Assessment Result Facility 04-09-2024 Functional Status N/A [facility] Clinical Notes 08-22-2021 to 04-09-2024 LaboratoryLaboratory Note Date & Type Note Facility 04-09-2024 Evaluation + Plan note Future Scheduled TestsPancreatic Elastase, Fecal 04/09/24Calprotectin, Fecal 04/09/24O & P Exam, Routine 04/09/24Clostridium Difficile PCR 04/09/24Enteric Panel by PCR 04/09/24 [facility] 04-09-2024 Evaluation + Plan note Diagnostic Tests PendingCeliac Disease Comprehensive 04/09/24 Future Scheduled TestsPancreatic Elastase, Fecal 04/09/24Calprotectin, Fecal 04/09/24O & P Exam, Routine 04/09/24Clostridium Difficile PCR 04/09/24Enteric Panel by PCR 04/09/24 [facility] 10-17-2023 Evaluation note Encounter Date Diagnosis Assessment [...] while sleeping. questions and concerns were addressed [employer] Other 10-11-2023 Evaluation note* Encounter Date Diagnosis [...] no improvement in 2 to 3 days [employer] Other 03-20-2023 Evaluation + Plan note Diagnostic Tests Pending * FSH and LH 01/17/23 [facility]02-16-2023 NotePatient Education Materials Follows: Otitis Media, Adult [...] Follow these instructions at home: ? Take kbgp-ulq-umojvyz and prescription medicines only as told by [...] provider. Document Revised: 01/25/2022 Document Reviewed: 01/25/2022 [employer] Patient Education ? 2021 [employer].[id number] Note Patient Education Materials Follows:[id number] Evaluation note * Encounter Date Diagnosis Assessment [...] medication before and did have stomach upset [employer] Other 11-03-2022 Evaluation note* Encounter Date Diagnosis Assessment Notes Treatment Notes Treatment Clinical Notes Aug, Dizziness (ICD-10 - R42) Aug, History of reactive hypoglycemia (ICD-10 - Z86.39) Start with keeping journal of symptoms. Take blood sugars when you experience symptoms. [employer] Other 09-10-2022 Evaluation note* Encounter Date Diagnosis Assessment Notes Treatment Notes Treatment Clinical Notes Jul, Intractable migraine without aura and without status migrainosus (ICD-10 - G43.019) Take medication as directed. Stay away from known triggers. Follow up with primary care provider or neurology if symptoms persist. Phenergan and Toradol Im given in office. Explained medication will cause drowsiness. [employer] Other 08-27-2022 Evaluation note* Encounter Date Diagnosis Assessment Notes Treatment Notes Treatment Clinical Notes May, Migraine aura without headache (ICD-10 - G43.109) [employer] Other 07-25-2022 Evaluation note* Encounter Date Diagnosis [...] (ICD-10 - G43.109) Continue medication as needed [employer] Other 12-03-2021 Evaluation note* Encounter Date Diagnosis [...] no improvement in 5 to 7 days [employer] Other 10-23-2021 Evaluation note* Encounter Date Diagnosis [...] Patient care instructions given in writting by [facility] Care At Home document [employer] Other Evaluation noteNo InformationNort [employer] Other Evaluation noteNo assessment information available [facility] Work Phone: Hisvzqj general Narrative - Reported* Type Description Date Medical History bipolar depression Medical History hx stomach ulcers Medical History migraine headaches Surgical History T&A 1998 Surgical History [place] Teeth 2005 Surgical History Keloid Scar from [...] Surgical History hysterectomy Hospitalization History See Above [employer] Other Hisbbvt general Narrative - Reported* Type Description Date Medical History bipolar depression Medical History hx stomach ulcers Medical History migraine headaches Medical History IBS Medical History chronic depression Medical History anxiety Medical History Gestational diabetes - yes Medical History PCOS Medical History Esophageal reflux Medical History fatigue Medical History lactose intolerance Medical History obesity Surgical History T&A 1997 Surgical History [place] Teeth 2005 Surgical History Keloid Scar from [...] reconstruction 2 021 Hospitalization History See Above [employer] Other Hislmaz general Narrative - Reported* Type Description Date Medical History bipolar depression Medical History hx stomach ulcers Medical History migraine headaches Medical History IBS Medical History chronic depression Medical History anxiety Medical History Gestational diabetes - yes Medical History PCOS Medical History Esophageal reflux Medical History fatigue Medical History lactose intolerance Medical History obesity Surgical History T&A 1997 Surgical History [place] Teeth 2005 Surgical History Keloid Scar from [...] reconstruction 2 021 Hospitalization History See Above [employer] Other Hospital course Narrative No data available for this section [facility] No data available for this section [facility] No data available for this section [facility] Advance Directives Advance Directive Response Recorded Date/ Time Advance Directives No April 08 0 6:58am Advance Directive Response Recorded Date/ Time Advance Directives No April 08 0 7:58am Chief Complaint and Reason for Visit Chief Complaint [facility] hc[facility] exposure Dysmenorrhea,Dyspareunia,Abnormal Uterine Bleeding Chief Complaint Dysuria R30.0 Chief Complaint Obesity R27.0 Chief Complaint Obesity R27.0 exercise Chief Complaint Ear Infection Left E ar Unknown Chief Complaint Unknown Left ear pain Assessments No Assessments Information Available Family History Relationship Condition Age at Onset Recorded Date/T nahid Not Specified Malignant neoplasm of lung Unknown Myocardial infarction Unknown father Chronic obstructive pulmonary disease Unk nown Hypertension Unknown Depression Unknown sister Hypothyroidism Unknown Relationship Condition Age at Onset Recorded Date/T nahid Not Specified Malignant neoplasm of lung Unknown Myocardial infarction Unknown father Chronic obstructive pulmonary disease Unk nown Hypertension Unknown Depression Unknown sister Hypothyroidism Unknown father Unknown Heart disease Unknown Not Specified Family history of other condition Unknow n Unknown Malignant neoplasm Unknown Summary Purpose Additional Source Comments REASON FOR VISIT (unrecogniz ed section and content) #18 SILVER VAN, COUGH, BLOOD IN MUCUS, CHILLSINJURY LEFT INDEX FINGERNo InformationNo InformationFOLLOW UP MEDICATIONclinicalDARK BARBOUR [facility], N/V, H/AWMN ReferralISSUES OF DIZZINESS CHECK UPInitial WM[facility]M exercise with [place] EAR INFECTIONEAR INFECTION LEFT EAR Care Teams (unrecognized sec tion and content) Personnel Name: AME ORTIZ CNP Address: Address: [address] [place] [id number] Team Status: Inactive Member Role Status Dates [...] Team Status: Active Member Role Status Dates Ame Patelault , [employer]ION METAL SPRAYER-C Primary Care Provider Active Team Status: Inactive Member Role Status Dates Ame Nik , [employer] METAL SPRAYER-C Primary Care Provider Active Alexis Lincoln MD Attending Provider Active Team Status: Inactive Member Role Status Dates Ame Patelault , [employer] METAL SPRAYER-C Primary Care Provider Active Lambert Gavin DO Attending Provider Active Team Status: Inactive Member Role Status Dates Ml Chisholm NP Attending Provider Active Start: October 17, 2023 End: October 17, 2023 Team Status: Inactive Member Role Status Dates Ame Ortiz , [employer] METAL SPRAYER-C Primary Care Provider Active Start: December 08, 2023 End: December 08, 2023 Fabienne Guerra DPM MS Attending Provider Active Start: December 08, 2023 End: December 08, 2023 Team Status: Active Member Role Status Dates Ame Patelmeme [employer] METAL SPRAYER-BC Primary Care Provider Activ e Team Status: Inactive Member Role Status Dates Sera Lares NP-C Attending Provider Active S tart: February 26, 2024 End: February 26, 2024 Ame Ortiz , [employer] METAL SPRAYER-BC Primary Care Provider Activ e Start: February 26, 2024 End: February 26, 2024 Goals (unrecognized section and content) Goals may be documented in a n alternate section INFORMATION SOURCE (unrecogn ized section and content) DATE CREATED AUTHOR [facility]/12/2023 [facility] DATE CREATED AUTHOR AUTHOR'S ORGANIZ ATION 04/20/2023 [facility] DATE CREATED AUTHOR AUTHOR'S ORGANIZ ATION 12/14/2023 [facility] DATE CREATED AUTHOR AUTHOR'S ORGANIZ ATION 03/17/2024 [facility] DATE CREATED AUTHOR AUTHOR'S ORGANIZ ATION 04/10/2024 [facility] FOR RECORDS PERTAINING TO PATIENTS WHO [...] BE BASED ON THE PRIMARY CLINICAL RECORDS. [facility]. provides no warranty or guarantee of the accuracy or completeness of information in this document.
== END 2024-04-11 08:53 | disposition home or self-care (01) ==
PROVIDERS: PCP Nurse Practitioner Family; Visit Provider Podiatrist Foot & Ankle Surgery
DX: M21.071 Valgus deformity, not elsewhere classified, right ankle (principal); Z98.890 Other specified postprocedural states
CPT/HCPCS: 73630

== ENCOUNTER 2024-06-14 12:42 | Outpatient (OUT) | payer OTHER, SELFPAY ==
--- NOTE | 2024-06-14 | FL_ITS ---
The [address] [address] Patient Name: NOBLE CASTILLO MRN: [id number] date: 1985 Sex: F Assigned Patient Location: [place] Current Patient Location: [place] Accession/Order Number: [id number] Exam Date: 06/14/2024 13:15 Report Date: 06/14/2024 14:01 At the request of: CONCHITA ORTIZ Procedure: FL modified barium swallow EXAMINATION: FL modified barium swallow HISTORY: food getting stuck, choking sensation COMPARISON: No relevant comparison available. TECHNIQUE: A swallowing evaluation was performed with fluoroscopy in the usual manner. Standard level fluoroscopic mode of operation utilized. FINDINGS: ORAL PHASE: Normal deglutition. PHARYNGEAL PHASE: Normal swallowing. ASPIRATION: None. STRUCTURE: Normal. No visible obstruction, stricture, or dilatation. OTHER: Negative. FL/FL modified barium swallow IMPRESSION: 1. Normal swallowing function. 2. Episodes of gagging due to texture of pudding and when swallowing barium tablet. Patient describes this as frequently happening with food, brushing teeth, liquids, etc. No appreciable structural abnormality. Consider review of patient medications for possible side effect and consider ENT evaluation. Electronically authenticated by: RAFAEL COATS Date: 06/14/2024 14:01
--- OUTSIDE RECORDS SUMMARY | 2024-06-14 12:50 | XMS_ITS | CCD ---
Author Organization [facility] Care Team Providers Care Front Services Agent Name Role Phone Eric ([facility])Kit Attending Provider Dewayne James Attending Provider [phone] Ame Ortiz Primary Care Provider [phone] Costa Armando Attending Provider Christiana Martel Unavailable Sera Lares Unavailable Ame Ortiz Unavailable KRISTIN Ortiz Attending Provider NO FAMILY, PHYSICIAN Primary Care Provider Unava ilable Debra Celestin Unavailable Marleni Jordan Unavailable NO FAMILY, PHYSICIAN Primary Care Provider Unava ilable KRISTIN Ortiz Attending Provider [phone] DO Lambert Gavin Attending Provider KRISTIN Otriz Primary Care Provider NO FAMILY, PHYSICIAN Primary Care Provider Unava ilable KRISTIN Ortiz Attending Provider [phone] KRISTIN Ortiz Primary Care Provider DO Lambert [...] Care Unavailable Ml Chisholm Unavailable KRISTIN Ortiz Ame Primary Care Provider U [facility] Charlie, GER Mahajan Attending Provider [phone] Ame Ortiz Primary Care Unavailable Charlie, Fabienne Mahajan Attending Unavailable Fabienne Guerra Admitting Unavailable KRISTIN Ortiz [facility] Primary Care Provider U [facility], GER Mahajan Attending Provider AME ORTIZ Primary Care Physician Lester Mcelroy Attending Unavailable NIK, AME Primary Care Unavailable Lester Mcelroy Admitting Unavailable Lester Mcelroy Attending Unavailable NIK, AME Primary Care Unavailable Lester Mcelroy Admitting Unavailable NIK, AME Primary Care Unavailable Lester Mcelroy Admitting Unavailable Lester Mcelroy Attending Unavailable Lester Mcelroy Attending Unavailable NIK, AME Primary Care Unavailable Lester Mcelroy Attending Unavailable Lester Mcelroy Admitting Unavailable AME ORTIZ Primary Care Unavailable LUIS EDUARDO SERRATO Attending Unavailable ANDREA-NOSSEK, CHELSEA M Attending Unavailab le ANDREA-NOSSEK, CHELSEA M Attending Unavailab le ANDREA-NOSSEK, CHELSEA M Attending Unavailab LUIS EDUARDO Fung Attending Unavailable ANDREA-NOSSEK, CHELSEA M Attending Unavailab le MCCORD, ISAAK Attending Unavailable MCCORD, ISAAK Attending Unavailable MCCORD, ISAAK Attending Unavailable ANDREA-NOSSEK, CHELSEA M Attending Unavailab le Unavailable Unavailable Unavailable Allergies Allergy Classification Reported Allergen(s) Allergy Type Date of Onset Reaction(s) Facility Opioid Agonists (3 sources) Codeine; 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: [codeine] Drug Allergy Unknown (qualifier value) [facility] Povidone-Iodine (3 sources) Povidone-Iodine ; 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: [povidone iodine topical] Drug Allergy Unknown (qualifier value) [facility] (8 sources) Adhesive Tape; 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: [Adhesive tape] Allergy to substance 4 Rash/itching [facility] (6 sources) paper tape Allergy to substance 1 Rash/itching [facility] (19 sources) Codeine; 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: [codeine] Drug Allergy 3 Unknown (qualifier value) [facility] (15 sources) Povidone-Iodine ; 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: [povidone iodine topical] Drug Allergy 3 Unknown (qualifier value) [facility] (13 sources) bandaids Propensity to adverse reactions rash [facility] (15 sources) Polyester Propensity to adverse reactions 3 rash [facility] (6 sources) Povidone-Iodine ; 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: [Betadine] Drug Allergy 2 itchy rash [facility] (6 sources) Adhesive bandage; 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: [Adhesive Bandage] Drug allergy Unknown (qualifier value) [facility] (2 sources) Codeine Drug Allergy 2 [facility] (1 source) Adhesive Tape; 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: [Tape] Propensity to adverse reactions to drug (disorder) [facility] Repository (2 sources) Adhesive agent Allergy to substance 3 [facility] Medications Current Medications Medication Drug Class(es) Dates [...] Start: 11-25-2020 take 1 capsule by mo [facility] once daily Cariprazine (Vraylar) 3 mg capsule Active 3 MG PO Daily February 26, 2024 12:00am take 1 capsule by [facility] every twenty-four hours Vraylar 4.5 MG 1 capsule Orally Once a day Active Vraylar Active [facility] oral tablet (4 sources) Start: 04-16-2019 take 1 tablet by mouth once daily [facility] oral tablet 1 tab(s), Oral, Daily, Refill(s) 0, Prophylaxis Start Date: 04/16/19 Status: Ordered colesevelam hydrochloride 625 mg oral tablet (3 sources) Bile Acid Sequestrant Start: 04-09-2024 take 3 tablets by mouth twice daily Welchol 625 mg Tab 1,875 mg = 3 tab(s), Oral, BID, # 540 tab(s), Refills(s) 0, Pharmacy: [facility]/pharmacy #[id number], 162, cm, 04/09/24 13:38:00 EDT, Height/Length Dosing, 99.2, kg, 04/09/24 13:38:00 EDT, Weight Dosing Start Date: 04/09/24 Status: Ordered fexofenadine hydrochloride 180 mg oral tablet (1 source) Histamine-1 Receptor Antagonist take 1 tablet by mouth once daily Marquita Allergy 180 MG 1 tablet Swallow whole with water; do not take with fruit juices. Orally Once a day Active hydrOXYzine (4 sources) Antihistamine Start: 04-16-2019 hydrOXYzine Oral, TID, Refills(s) 0, Anxiety Start Date: 04/16/19 Status: Ordered ibuprofen 600 mg oral tablet (14 sources) Nonsteroidal Anti-inflammatory Drug Start: 11-27-2020 take 600 mg by mouth every six hours Ibuprofen Active 600 MG PO Q6H November 27, 2020 1:00am take 1 tablet [...] 1 tablet Orally Once a day Active Ldxadgglws-Ptdqqfb-Qaetkmeum in (Folinic-Plus) 4-50-2 mg tablet (6 sources) Start: 11-25-2020 take 1 tablet by mouth once daily Eutmzlpklz-Amvsbng-Xuwmcdcaqan (Folinic-Plus) 4-50-2 mg tablet Active 1 TAB PO Daily November 25, 2020 10:32am Start: 11-25-2020 take 1 tablet by jerri th once daily Rfdtvuvwrc-Qtssgxh-Gabjvfubrww (Folinic- Plus) 4-50-2 mg tablet Active 1 TAB PO Daily November 25, 2020 12:00am Start: 11-25-2020 take 1 tablet by jerri th once daily Qwfhwukufx-Crozhao-Ibyqgioqycn (Folinic- Plus) 4-50-2 mg tablet Active 1 TAB PO Daily November 25, 2020 1:00am loperamide hydrochloride 2 mg oral tablet (3 sources) Opioid Agonist Start: 04-09-2024 Immodium A-D [...] 30 gram, Refill(s) 0, [facility]. Start Date: 06/28/19 Status: Ordered [place]-3 (1 source) Start: 04-16-2019 [place]-3 Oral, Daily, Refill(s) 0, Prophylaxis Start Date: 04/16/19 Status: Ordered [place]-3 Fatty Acids (Fish Oil Concentrate) 1,000 mg Capsule (6 sources) Start: 11-25-2020 take 1 capsule by mouth once daily [place]-3 Fatty Acids (Fish Oil Concentrate) 1,000 mg Capsule Active 1000 MG PO Daily November 25, 2020 10:35am Start: 11-25-2020 take 1 capsule by [facility] once daily [place]-3 Fatty Acids (Fish Oil Concentrate) 1,000 mg Capsule Active 1000 MG PO Daily November 25, 2020 12:00am Start: 11-25-2020 take 1 capsule by [facility] once daily [place]-3 Fatty Acids (Fish Oil Concentrate) 1,000 mg [...] pantoprazole 40 mg delayed release oral tablet (3 sources) Proton Pump Inhibitor Start: 04-09-2024 take 1 mg by mouth once daily Protonix 40 mg Tab-DR mg tab(s), Oral, Daily, Refills(s) 0 Start Date: 04/09/24 Status: Ordered Probiotic (13 sources) Probiotic Active Probiotic Formula (Bacillus Coagulans) (4 sources) Start: 04-16-2019 take 1 capsule by mouth once daily Probiotic Formula (Bacillus Coagulans) 1 cap(s), Oral, Daily, Refill(s) 0, Prophylaxis Start Date: 04/16/19 Status: Ordered Propranolol (4 sources) beta-Adrenergic Gricel Start: 04-09-2024 propranolol 160 [...] hrs Start: 04-16-2019 [facility] rizatriptan 10 mg Dis Tab [...] 2024 12:00am take 2 tablets by mo [facility] [...] Drug Class(es) Dates Sig (Normalized) Sig (Original) [id number] 200 actuat albuterol 0.09 mg/actuat metered dose [...] Apr, Not-Taking cholecalciferol 0.025 mg oral tablet (4 sources) Vitamin D Start: 04-16-2019 take 1 [...] Date Documented Da te Episodic/Chronic Abdominal pain (4 sources) Lower abdominal pain; 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: [Lower abdominal pain, unspecified] Onset: 4 Episodic Anxiety disorders (6 sources) Anxiety; 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: [Anxiety disorder, unspecified] Onset: 2 Chronic Calculus of urinary tract (4 sources) Kidney stone 04-16-2019 Episodic Conditions associated with dizziness or vertigo (1 source) Dizziness and giddiness Episodic Disorders of lipid metabolism (4 sources) Hypertriglyceridemia; 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: [Pure hyperglyceridemia] 02-26-2024 Chronic Disorders of teeth and jaw (1 source) Unspecified temporomandibular joint disorder, unspecified side Episodic Esophageal disorders (12 sources) Gastroesophageal reflux disease; 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: [Gastro-esophageal reflux disease without esophagitis] Onset: 2 Chronic Gastroduodenal ulcer (except hemorrhage) (4 sources) Gastric ulcer; 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: [Gastric ulcer, unspecified as acute or chronic, without hemorrhage or perforation] Onset: 4 Chronic Headache; including migraine (20 sources) Migraine aura without headache ; 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: [Migraine with aura, not intractable, without status migrainosus] Onset: 2 Resolved: 2 Chronic Malaise and fatigue (16 sources) Fatigue; 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: [Chronic fatigue, unspecified] Onset: 2 Chronic Mood disorders (19 sources) Bipolar disorder; 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: [Bipolar disorder, unspecified] Onset: 2 Chronic Noninfectious gastroenteritis (4 sources) Noninfectious enteritis; 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: [Noninfective gastroenteritis and [...] SYNDROME] Onset: 2 Chronic Other endocrine disorders (4 sources) Hypoglycemia 04-16-2019 Chronic Other gastrointestinal disorders (4 sources) Irritable bowel syndrome; 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: [Irritable bowel syndrome without diarrhea] Chronic Other gastrointestinal disorders (2 sources) Irritable bowel syndrome without diarrhea; 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: [IRRITABLE BOWEL SYND W/O DIARRHEA] Onset: 2 Chronic Other gastrointestinal disorders (4 sources) Heartburn 04-16-2019 Episodic Other nervous system [...] Resolved: 08-22-2021 Episodic Other aftercare (1 source) 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 It is important that you return our call regarding your medication question upon receiving this letter. Also, at the time of your call, please provide us with your current information. Thank you for your prompt attention to this matter. Sincerely, [facility] [phone] Normal [facility] Coding Summary.on 04-21-2024 Coding Summary. [id number]+PG h lYWQ+ZI0IEDDvE84ydGNm eA2bQ0CTZTuCBvxkITWKW QsKJpLcrgXhVV9pvVYuAT Ju IC8+FJ4hUQEyTkgygXWsm 5P8pWZ3V57bet0oOCoiuF J0SDIaIpNadbogw0dbxKd 6IDcuNmluOyBt EBUxqL36HKF0uO99Td37f NRpuBBlf8hloUd2HhRhGG QhHZZ0zEzsBJmba1YjRJO aK22euVAlf3C6 OKAwyQornFCzWtSukQN1j X8iCGmgasckq2ttyywcHw d4wz25bRBjl2L6mTG4O4F jzhZ9VYAjoUEb MtkjbSJTtP1jxzcua6tgl goiTkUpMRAuHDs2KPy8LC SrxDnfBlRwRN03RZW8MMK vqsJiQ6DvZKFo yQtoMtA3i8V5Yz3IN1ZRF wcwD5TDQPJVKGpqbBG+PC 79ld88L4KvUukaEzs8GGN dYRA0vAX1eU0c XLMiVMyex0G8wUB4C9Uws lHwmo1wi6pvUJIiKRlyX3 8umOOym0Y2BOUfbHK0BMC wbIupBcQcsT57 Oyc+CDScdJqzk4YyEbzwn 6lwx0wafUi1UcyyJIXcfm WoyRalKUZ0l1SsGy4nSSR yfAP3vEK2sO2g LlExCqY9TKheI633UpMrk XGkEwckW52qZ7KbkZB+PH WxAui2PQUdoDcjLF2fR4V hZGRpbmctbGVm cQtlIL0nFUTccsvtZHOle L5rRIJlE9c0EePgQcQ9GS ijG1WlETYsklmkKy32uY6 sJbYfYmJ7YUlq N8HzhtI5EGYurMVlRDtdX UA8X39rw3Y4NAEfQKSfXP W3tYE0zE1jvXfmtzxjtPI mdDsgdmVydGlj UOqpIBcpW633MDZndEmvT kNvZGluZyBEYXRlOiAgMD YvMjIvMjAyNDwvdGQ+PHR cMBO8fBruMMWt yZXnKXykKr6isYstjStvY F2cEDGcgahnUCDocT4sUC GxbQGidLjpKM4lMLSwteh op438OhFcPBK2 CQTzwHWtP8RivF0bXbMrO XSfBGSgI6QffACwVTgiP7 06MWqnVxL6EUTstpVbO2H sLWFsaWduOiB0 m8L2Vp2Ol6GihkbnU4Ann XXxSfGaRdnoVUv5F3TnOm wvdHI+ZA45BDYoMS25QSo 1LMS1dMxoDAjw LXXbX2QvvT2nMaNsSXAqX GRkOyc+PHRhYmxlIHdpZH RoPScxMDAlJyBzdHlsZT0 nYq4pRYAfPPOr dLlhdKRpZiInq4jfJPBdR BsySN6doXjdA3YpfUA9FM Aqj7r4Ka75Y48fO4QdcLR +ZWWavHU0fUT8 iQ0tUoXjGmA3GXjdG490K jDryKIyPmood7fep1enoG r7AnI6NRLlpuGyfPdrCCY 1y0VzEv34L62q IHdpZHRoPSIxNSUiIHZhb Puvos4ebH3uUq8+PGNvbC B7cKK4oO3yTnKqUuE5PWi zS525GmDksJVh Aepgx4lej1ufnAq2XyPrB UKgitMuiAhdDLU0e0WfUq 40J0RsqWsnt1QjPob0zv3 9dCQyd2C2uIS4 Q3PdDEIwrkgcfVIxnIbsE E1pCDRcddrvUAIlkK1kUA QhC5o5MwVzVrR4FJksA3B kegA4XGLeeOVc KKLmbMLOsH8rznvel7cvs zebKoEjVRImMHa7OFa8CW WlsQanYvCzKZT1YlT5GHU 8qPBcbI3xsGlr hrnzeX9yMyu+OCH0nBFzc ADBZH2cUmwonZU+PHRkIH N7rUkqKHapUQLaxN9fDRC rM4v6IdFeRyW9 BNwiZ1WjylV8WAGmqELdR MDjwLDWfP7xqjwju7bhqd nrVoOeNIYdTGr7DHq9FWV saWduOiBsZWZ0 SmK4OMH2tODcnP9rsOszm boqsF8iAbg+QmlydGggRG O6ARz0P8YbBwu3CUOhqUi jCI2fqUSiWJyl Tb1ucBqceGkuQH7dDESdu hhvx315EcOrz7vtYIBsfI LlDGbdHHE9R68fx0K2GML hFYVeHZA2sEA9 dQ1wcHwwezzjiZOaoUxil dHygUueTGyhSUquQ581OF ZgqVvqRrUsXTe0C7EsQhf 6VHFdzHmgER3t yKBqYCthAc5fjZjzcAvlJ C0zVNSoqjozd630NkLet4 muDQRhqZUtGCvtAFJ3K90 ax2V0QFRwRJUz XBR6mXO7xD1rpQujyfsal GVmdDsgdmVydGljYWwtYW kkI890VUBgwBwyAqDonRw 9G2GmMkf6IKPv hZhhLY5xjCOyYYzzSg1gd MbuaSbyCT1vAHNxsohbh1 11GxJjx5kcRTTwkXSvVGt iHGR7U71md8H6 FJFpYUPbBCE6wFW4lW8zo GlnbjogbGVmdDsgdmVydG hdZUggFFohZ010JDPftLi nPlBhdGllbnQg WOfpWNg4T4GzRykahQD+P C76LLEjKN89iUAomVSlb0 ifxWo9SjVwMDDiEOT3hPm pCJcmh6TwTZDy Z67pcOMvh2R5DEAzcYsvn YPmMuYfqZN7kH6kSObvcd xha7ossxpySlcvg1wale9 1kF80L70sOQjm ZHRoPSIzMCUiIHZhbGlnb w1umW7cGz4+LVItcFB7zD L4kS2tGVTrYfZ6JJdtQ21 9InRvcCIvPjxj m4yuz7hgxTj6RkM6XZZyg kWaoCbtZBQ0w9DaQo72T1 9sIHdpZHRoPSIyMCUiIHZ rjIpyjn1meE6j Ii8+ANSfsQG8hOA5jI5sJ kKpJqW5UXmqZ514AgGexO OhIahwU43lN6GocOX+PHR aWmf9ZVOpjWng PC2skZTfNNuwPn5tOFV3I dSgOxSnKVfhD6MxTKZnge mdolmmiJT9CDGbVSRoeL2 6We0ksPteLCJi nYCMbN5uayddr8zpbgxtV iZhSPUdRCs6GKf0EXSrfN duCfKeHWL1ElO1YBW2uEJ pkR0fpTnnlgzn sX4kL1McJNJbawmuEn63o F7tFpUhRoZ1SKvjNzz+GUERRERO 2CCqpqREoZBVHKZB0VNK8 0EA46qIYvx6H2 jUN1C2QhQTVpdtnniketu XQ3IPYdOOOrdY14mQSrHR rnUt8ne5U1w696IXShRPU sjE66Gq6rpTqz WAJvgNCZhC8evmtni4tgo fvvBaGcRQWlRAr3OJb8PQ DrkFlhZwDuVLP9SiO8ETS 6rJZctI3bbOtm uowpkO4nZjd+MDYvMDUvM Tt7MtmonPT+OUQoJCF6qV sxNUjlAWYfbO2kQKYdH6z 8EsXtVdO9WIoy O7RpIGYdlwckKp69eE7pV nFvSxZ6TCuvQ9ZlpfA6YO XlbYTmUEgtFTU4D39eu9P 3SZBcZHPvBGN0 gFJ7wX3heTjekojspVEpq DsgdmVydGljYWwtYWxpZ2 81OJDbgYmzHpW1NRkwRZB zNZ97MJ04lTSk r3Y7eUC5N7XeCALsknmnd wkhgSI0XXTxPJSzkZ07xL IyKHfdIx4rs2F3g071CUN hRZJvjR47Tw1z gUpqAEAknKRLdP7xbribz 4rzgklwVwZeFEKgETb7JW w1TWFnaVuyQrWgJTV3VmS 9REH6bIWcxD3v zUxibjodzW9hVwd+RmVtY XnzWF01NP50nXXdv6N7rE Y7C7ZmULKutzdpxwzdeED 6QOHzDGKaxH87 fFExKIdpNa1cm5N7z060C UAuHFMoyT60Ox0rhHjyXO QqdERMkX6kvipku0zrtbg gIzAwMDAwMDt0 UVg1ACQewLaaGwBkYLB0G kE4KNH8aEKeaF9aiJivut iihS0aXzh+ARIkZDLbk5V db9UcMK05GL68 R7BkRbotmGOraYO+PHRhY mxlIHdpZHRoPScxMDAlJy TglNcyNN1iRn0sJQTcGSJ vbGxhcHNlOiBj z3scCANsHZhfAE9hxVpeX 0IgjZF0QFKxk0v8Ge90M8 2nZ3AbfGP+CADczSK9lLV 8lB7nMmLrLiH6 LFbtJ728UiQrhIXcArvor 8mww2ojnLu9QaOwYUUuuv JlnBneVXS0v4FqTp23B16 sIHdpZHRoPSIy VMKnNYFiuYgujg3kdE1fZ i8+RVNuvWV1wEV4yA4hUn FfBxG9ZWonL299ZvFcqEY rTsptR82jZ8Kp dXA+CHKnGoz3DBXurXrbZ E9dzEWkUXpxFb3uCJI6Vf AcAdBrPGjjK7SzLTFdqtm lsrfdhGQ0ZNVu UKTekU90Bm9jqKgcLl0yF LIdKLA4EZKbdDZzF1BvuU 3zHcYlRYCwEEBfE3GrmHS tUYcdU884TTdh GtS0LKRgvsJlW3NjMREib FxhPlS4h6Q1Zw5LqTbxwH SzGP1ySrFsUGf7K5QdGcv 3DETdhUabUY8t mKChILqsVt9ewDxrrFpuE L3rNQOsslknc672WrVbw8 dkGKEvbLOjZZpuOJG3I95 zc4X6YTMcUJJu UOV3pSK5fH0fgLcwfripi GVmdDsgdmVydGljYWwtYW ugT402FWObwBqpAcHKFpw 6V7QwOhd4KAFk hSzoBI5upYMaZHxdWx6gl CrvuUrrIP2qQYVcrwkhg6 56CxHha2osVBWnrFZyCEr vQVJ3Y14gn9N6 VGZkBPKwLXW9mUW9yI0bp GlnbjogbGVmdDsgdmVydG jxFDrlTXwaT570DRNzgVd bVt1OXtj8J9Xh Vyl0FXDpuCylYK2mrSTvF JkhAz0ugOnxjBgfNL1pVQ Ewbebpk565WjFsh7cvKST wcHQgVGltZXM7 M04ih7A5KSHvNFFkZJN4w JA6uW5zqBwnrkquvOXuxJ djvkMsfXrtTBwfOAvqX36 6IHRvcDsnPlBh eWVyOjwvdGQ+GC35fm80F 8TdDvpvQpa8OKAnZFQ0iR E2zU7uKCXsDJlud5D6qAO 1H8GeirSkhi3w t3czQGPhJWnqI (more content not included)... Normal [facility] Calprotectin, Fecalon 2023 Calprotectin (Stl) [Mass/Mass] 29 mcg/gm Invalid Interpretation Code 0-120 [facility] Comment on above: Result Comment: Conc entration Interpretation Follow-Up < 5 - 50 ug/g Normal None >50 -120 ug/g Borderline Re-evaluate in 4-6 weeks >120 ug/g Abnormal Repeat as clinically indicated Performed at: [address] [id number] MD Parmjit Connor Performed By: #### 1 [id number] #### [facility] [address] [place] [id number] O & P EXAM, ROUTINE, REFLEXo n 04-17-2024 Ova and parasites identified Concentration Nom (Stl) Comment Invalid Interpretation Code [facility] Comment on above: Result Comment: No o va, cysts, or parasites seen. One negative specimen does not rule out the possibility of a parasitic infection. Performed at: [address] [id number] PhD Pancho Higgins Performed By: #### 3 [id number] #### [facility] [address] [place] [address] O & P Exam, Routineon 2023 Ova and parasites identified LM Nom (Unsp spec) Final report Invalid Interpretation Code [facility] Comment on above: Result Comment: Thes e results were obtained using wet preparation(s) and trichrome stained smear. This test does not include testing for Cryptosporidium parvum, Cyclospora, or Microsporidia. Performed at: [address] [id number] PhD Pancho Higgins Performed By: #### 1 [id number] #### [facility] [address] [place] [address] Pancreatic Elastase, Fecalon 04-17-2024 Elastase.pancreatic (Stl) [Mass/Mass] >800 Invalid Interpretation Code >200 [facility] Comment on above: Result Comment: Florecita re Pancreatic Insufficiency: <100 Moderate Pancreatic Insufficiency: 100 - 200 Normal: >200 Performed at: [address] [id number] MD Parmjit Connor Performed By: #### 1 [id number] #### [facility] [address] [place] [address] Enteric Panel by PCRon 04-12 C. coli+jejuni+upsalien sis DNA MARYELLEN+non-probe Ql (Stl) Not detected Normal [facility] Comment on above: Result Comment: Test ing was performed utilizing reverse fur weigher (RT), polymerase chain reaction (PCR), and array hybridization to detect specific gastrointestinal microbial nucleic acid gene sequences associated with the following pathogenic bacteria and viruses:Campylobacter Group (composed of C. coli, C. jejuni, and C. vinay), Salmonella species, Shigella species (including S. dysenteriae, S. boydii, S. sonnei and S. flexneri), Vibrio Group (composed of V. cholera and V. parahaemolyticus), Yersinia enterocolitica, Norovirus GI/GII, and Rotavirus A. In addition, EPdetects Shiga toxin 1 gene and Shiga toxin 2 gene virulence markers. Shiga toxin producing E. coli (STEC) typically harbor one or both genes that encode for Shiga toxins 1 and 2. Campylobacter group, Salmonella species, Shigella species, Vibrio group, Rotavirus A, Shiga Toxin 1, Shiga Toxin 2, Norovirus GI/GII, and Yersinia enterocolitica were tested by Verigene nulcleic acid test. Performed By: #### 1 [id number] #### [facility] [address] [place] [address] E. coli stx1+stx2 genes MARYELLEN+non-probe Ql (Stl) Negative Normal [facility] Comment on above: Performed By: #### 1 [id number] #### [facility] [address] [place] [address] Enteric Panel by PCR Negative Normal [facility] Enteric Panel Intrl QC Pass Normal [facility] Comment on above: Result Comment: Test ing was performed utilizing reverse fur weigher (RT), polymerase chain reaction (PCR), and array hybridization to detect specific gastrointestinal microbial nucleic acid gene sequences associated with the following pathogenic bacteria and viruses:Campylobacter Group (composed of C. coli, C. jejuni, and C. vinay), Salmonella species, Shigella species (including S. dysenteriae, S. boydii, S. sonnei and S. flexneri), Vibrio Group (composed of V. cholera and V. parahaemolyticus), Yersinia enterocolitica, Norovirus GI/GII, and Rotavirus A. In addition, EPdetects Shiga toxin 1 gene and Shiga toxin 2 gene virulence markers. Shiga toxin producing E. coli (STEC) typically harbor one or both genes that encode for Shiga toxins 1 and 2. Performed By: #### 1 [id number] #### [facility] [address] [place] [address] Norovirus genogroup I+II RNA MARYELLEN+non-probe Ql (Stl) Not detected Normal [facility] Comment on above: Performed By: #### 1 [id number] #### [facility] [address] [place] [address] Rotavirus A RNA MARYELLEN+non-probe Ql (Stl) Not detected Normal [facility] Comment on above: Performed By: #### 1 [id number] #### [facility] [address] [place] [address] S. enterica+bongori DNA MARYELLEN+non-probe Ql (Stl) Not detected Normal [facility] Comment on above: Result Comment: This test result should be correlated with clinical presentations and medical history by a healthcare provider to determine its clinical significance. Performed By: #### 1 [id number] #### [facility] [address] [place] [address] Shigella species+EIEC invasion plasmid antigen H ipaH gene MARYELLEN+non-probe Ql (Stl) Not detected Normal [facility] Comment on above: Performed By: #### 1 [id number] #### [facility] [address] [place] [address] V. cholerae+parahaemoly ticus+vulnificus DNA MARYELLEN+non-probe Ql (Stl) Not detected Normal [facility] Comment on above: Performed By: #### 1 [id number] #### [facility] [address] [place] [address] Y. enterocolitica DNA MARYELLEN+non-probe Ql (Stl) Not detected Normal [facility] Comment on above: Performed By: #### 1 [id number] #### [facility] [address] [place] [address] CDiff PCRon 04-11-2024 C. difficile toxin A+B Ql (Stl) YES Normal [facility] Comment on above: Performed By: #### 3 [id number] #### [facility] [address] [place] [address] CDiff PCR Unable to perform test due to consistency of stool. C. Difficile testing will only be performed on diarrheal (unformed) stool unless ileus due to C. difficile is expected. Reference: Clinical Practice Guidelines for Clostridium difficile Infection in Adults, Infection and Hospital Epidemiology February 2010, Vol 31, No 5. Normal [facility] Celiac Disease Comprehensive on 04-11-2024 Endomysium IgA Ql (S) Negative Invalid Interpretation Code Negative [facility] Comment on above: Performed By: #### 1 [id number] #### [facility] [address] [place] [address] Gliadin peptide IgA Qn (S) 7 unit(s) Invalid Interpretation Code 0-19 [facility] Comment on above: Result Comment: Nega tive 0 - 19 Weak Positive 20 - 30 Moderate to Strong Positive >30 Performed By: #### 1 [id number] #### [facility] [address] [place] [address] Gliadin peptide IgG Qn (S) 2 unit(s) Invalid Interpretation Code 0-19 [facility] Comment on above: Result Comment: Nega tive 0 - 19 Weak Positive 20 - 30 Moderate to Strong Positive >30 Performed By: #### 1 [id number] #### [facility] [address] [place] [address] IgA [Mass/Vol] 286 mg/dL Invalid Interpretation Code 87-352 [facility] Comment on above: Result Comment: Perf ormed at: [facility] [address] [id number] PhD Pancho Higgins Performed By: #### 1 [id number] #### [facility] [address] [place], [place] [address] tTG IgA Qn (S) <2 Invalid Interpretation Code 0-3 [facility] Comment on above: Result Comment: Nega tive 0 - 3 Weak Positive 4 - 10 Positive >10 Tissue Transglutaminase (tTG) has been identified as the endomysial antigen. Studies have demonstr- ated that endomysial IgA antibodies have over 99% specificity for gluten sensitive enteropathy. Performed By: #### 1 [id number] #### [facility] [address] [place] [address] tTG IgG Qn (S) <2 Invalid Interpretation Code 0-5 [facility] Comment on above: Result Comment: Nega tive 0 - 5 Weak Positive 6 - 9 Positive >9 Performed By: #### 1 [id number] #### [facility] [address] [place] [address] Ambulatory Visit Summaryon 0 04-09-2024 Ambulatory Visit Summary NOBLE CASTILLO :1985 Visit Date:04/09/2024 Ambulatory Visit Instructions Your [...] Chronic diarrhea Invalid Interpretation Code Chronic GERD [facility] CHEMISTRYOrdered By: SYSTEM SYSTEM on 04-09-2024 CRP [Mass/Vol] 1.3 mg/dL Normal <=1.9mg/dL Remisol Ch em TSH Qn 3.27 m[IU]/L Normal 0.34 - 5.60 mcIU/mL Remisol Chem CRPon 04-09-2024 CRP [Mass/Vol] 1.3 mg/dL Normal <=1.9 [facility] Comment on above: Performed By: #### 2 [id number] #### [facility] [address] [place] [address] Consent for Treatmenton 03-31 Consent for Treatment [id number] Normal [facility] Gastroenterology Office/Clin ic Noteon 04-09-2024 Gastroenterology Office/Clinic [...] gram, Refill(s) 0, [facility] EGD/ Dr Wiggins: 04/26/2019 1. Normal esophagus, [...] BID, # 540 tab(s), Refills(s) 0, Pharmacy: [facility]/pharmacy #[id number], 162, cm, 04/09/24 13:38:00 EDT, Height/Length [...] Alcohol Use, (more content not included)... Normal [facility] Comment on above: Result Comment: Elec tronically Signed By: Navi MACK, Lester Godoy\.br\Date and Time Signed: 04/09/24 14:24 EDT Angel 12-08-2023 L Specimen: [id number] Received: 12/09/23 Status: TANA Jara Num: [id number] Spec Type: Surgical Subm Dr: Fabienne Guerra DPM, MS Tissues: A Tendon/Sheath (RT POST TIBIAL TEND) Procedures: HE, Gross/Micro L3 Age/ Patient Sex Location Account Attending Physician Noble Castillo 38/F LABELL [id number] Fabienne Guerra DPM, MS SPEC NUM: [id number] RECD: 12/09/23 STATUS: TANA JARA NUM: [id number] SHEREE: 12/08/[address]: Fabienne Guerra DPM, MS ENTERED: 12/09/[address] [facility] [address]: Gregory,Lab SPEC TYPE: Surgical DEPT: JEANNIE [...] in one cassette labeled A1. CPT Codes 05376 -------- -------- Specimen: [id number] Received: 12/09/23 Status: TANA Marek Num: [id number] Spec Type: Surgical Subm Dr: Fabienne Guerra,GER, MS Tissues: A Tendon/Sheath (RT POST TIBIAL TEND) Procedures: Slade JASSO/Latesha L3 -------- Patient: Noble Castillo [id number] (Continued) -------- Signed (signature on file) Toney Chandra MD 12/12/23 225[address] [facility] Nicotine Metabolite, Urine L Con 04-19-2023 Cotinine LC Negative Invalid Interpretation Code Wxdwzp=102 [facility] Comment on above: Result Comment: Perf ormed At: [facility] [place] [address] [place], [place] [id number] Mark Puentes PhD Ph:[phone] Performed By: #### 1 [id number] ####[facility] (DEFAULT)[address] [place] [address] Lab - Toxicology Resultson 0 04-18-2023 Lab - Toxicology Results [id number]. [id number] Normal [facility] CT ANKLE RT WO CONon 023 [...] technique. FINDINGS: BONES: Joint space narrowing with qgkk-gg-zeab articulation involving the medial aspect of the talocalcaneal joint. SOFT TISSUES: Negative. No visible soft tissue swelling. EFFUSION: None visible. OTHER: Negative. IMPRESSION: 1. Pes planus. 2. Gmym-ec-lupp articulation between the articular surfaces of the medial talocalcaneal joint. 3. Uniform, normal spacing of the tibiotalar joint. Electronically authenticated by: RAFAEL COATS Date: 2023-02-02 09:25 Normal [facility] CHEMISTRYOrdered By: SYSTEM SYSTEM on 01-17-2023 25-hydroxyvitamin [...] Normal >=59mL/min/1 .73 m2 [facility] Chem S Globulin (S) [Mass/Vol] 3.1 g/dL [...] [facility] HemeAutoSS Coding Summaryon 12-21-2022 Coding Summary HTMLBase 64 IwdoivbjZUl6nGj+PGhlY WQ+QW5OMRDxM19wuWCuvS 9BM8uXEV9GTLXLTNAVVW5 HIP7epZW1BDuuK4FavvLb NjohqUEeAS24QNj4PXB7s JyoUMzjyY4oeGDuB3p4Jl UuOO55uV21VKdjPBHvAjA 3LjZpbjsgbWFy M9shQzHoxVNnEza+PHRhY mxlIHdpZHRoPScxMDAlJy CqoIeyYC8lFr1dTAHrEDY vbGxhcHNlOiBj h5ezVYMvAHzpND3vbWsxF 5XnkAZ8NTWsb4j2Ik33uN I+BCDoHNP8zRpmLMgrd95 7OmAzu5ayNQU5 xBPtAUrbUPE4I65dg8G8Q QSfTLYhRRX4gCS8iE0jaY agiaxeL2RhhYXuIfP1DUY 6wUGsxK6rfXrx gscrvY0jRky+T30PAB5XK VOVPO9YNgf3H1TdWvkbgO I+VB41JRPmMP30xKIzeEX lw7bomSp7ViWk QEYhGKZ2oPcnHLhek9AgF DWyO02zjGLrk5W6PUGhyL yamCStZiYenRX0gZ7fAJx utkpuc4cyefsx Twjax5vyga24qJ44R81lC YxcAHMpEXB9DGQcORWchZ kctf1lfF9vAr7+ZEwtk1x cr8hdgMp1RoOx ARMohkDgjNszXQU5s2EyC l39P8GjbQlls5SdJyl2uq 58uCHck1Z6tCR2HRiwEHR xdX9iLFxbApW1 NYOlGmTtoO74iYUoIWhpS k8jzFkkgPxxMF7yGYThyt oyAEMqrZ4nLUYanEKkfVa bPN0oQETcbzdq a146PaYtSAZ5QHPcaATjC 7UwiZ2qXvVjVGTlBHRzE8 FpbNRrIOozJ455LMnwPmS 5CYWnfbLvF8Tf BIOugNigLuM5d4M1Vp0Ew 5UagotcQLW8BSceJNPaYg NgJsDzObG2Y8EoLps5ILD svFawCQ3gP1Ux JADitdvuwusnyHL3TTPoG FOueD54fITpYHgeTi7ih8 G4v460RDLlFASflW70Sj2 udDogMTBwdCBU vG0julwfo6kqzbfeBpIaB DUcDRt4TBw9UDCujFpyJa QsLXF7UnW6HWI7kDCawK1 ndMmjwkqqtR3z Oyc+Q72fqW0iUQQ5NNT8b fhuKLSjazGxUE06DX52S8 RyPjwvdGFibGU+PGRpdiB seLtlTA8aNzOg w0cho5WiONudH8JcSCOmP EvbPmq0GSCpZPX2kRO3iT 7cOQDvYCfzr7K0cXJ9H8V jtaYskw5pq5bg HJDfQFsaH47mkNIgn5J7B PNcpTO4FLAsjQauCeBbwJ 93Oyc+VERvgDrfz0YkJem fv8ihq0wyeQi9 HmYhETSmycJvuSbmTKW9r 2DsDx09R83hZGtdNEFwWP GeUAVpCHYlqPujpn5vwQ7 wIi8+PGNvbCB3 wME1qR2cALYhMaW2UJipY 955MhScwWKaUyxcw6ils4 uvdRp0PhKtAHMfgtJjhNh qISP5d6MbAx70 I57sPTtmQINnQTXpTCRnC CCxxGpjya6kzI8cUl3+PC 6ct7xzgr02lQ11aYR+PHR sWTH3oBllDXow CGQkrQ9lOYkvBmU6UFNxK fAkjI11vFRkBBjcGs0vgO tdnApdJF4eVJYwyarlx46 4SrNgv1ycIZYb zRLuYKbrFZU2P72ma7L5T DYdACFbRLR8uPM3iJ8uqF lnbjogbGVmdDsgdmVydGl lAMujLLgmD188 IHRvcDsnPlBhdGllbnQgT cTsETq9M2OpQyt6GJPxnV caHN4cqCKhVFreUt2vyJz lmOpiPE7nTJQa ochrn852SqSev2hqJITfn KDxBLtaZGF8G23tv0S1XY AnTYRvNLR7fXE0yG9rjTo nbjogbGVmdDsg vvBzsLawIUdyTEpyP493N HRvcDsnPkJpcnRoIERhdG B6CG03CQ42nUFnc6D4jKP 6Q9TzVUVqhaeh vafopFL9SRJmTIVlaI89W o4dpOarIp7aZHGuEQG4AS ZkdVSrY0PpqX6hEjBcWGG tVBFwN8EpsZNl WVefN108NSinVtH6RTNuk kLsM2RdMUVzfHlbQvL2s5 T1Bm3KM1C4BC06CM16fIU gu2O0yUD2L5Yf UBRjqzdgviqzsIH3TYXmQ ZApbG84By2soVslPg1bYR QcJPM0QQXiuELuD3RfgI2 yOiAjMDAwMDAw M8BvxWNsMVotE152MQndJ yQ9OPZnjdLkP0TzJZKpbR ooJrQ4f9E5It2DDKo5NW2 8FG78xGGci4A0 jDK4N9SaWXYnbotdlvpjf DM5YAUlVXGbkG03In9dkO ilQo4dNWIkYOG9EAGjfMD gA9SejS4iLoOs FAHaCXAgY0RieQZpSMwcO 502MUrdQfA6MRAtgmLvB3 OcJSZnfTrmKzL0z1O2Mm9 QYTVwNJ40ZGN0 wNK7IE22TJ55P9KhLlzwi GFibGU+PHRhYmxlIHdpZH RoPScxMDAlJyBzdHlsZT0 wPa4zFMDfZPTh iMdwmKLbRsSac5glVGMhM AoeJK3khWcuK9ElnDD9TH Imw4e1Tv38Z67wC3MjdYL +EICsuKH8zNM0 pU9wJtXrAiK1NRvdS791Z dPzwQXjCakys7bko1rjhF t4TxC0CYLxasWllMgvXWD 4l0BiZz46J79y IHdpZHRoPSIxNSUiIHZhb Ffjbv2rjC0yMg6+PGNvbC O0oIN6kL4wPlBxUwV3DUa jB331XuXxcCAf Aoczf6fio0mzqJl9YmCyI MEjtdOtjNcyNXJ6h7NsCs 23O1ZgiKyon2HqPqu4qa1 4lRYtt4F4tFL5 M7DuDEPgnfoowKXdnBklQ Q8mJDVptrzcWZAprG8rOC PmT1x3VzYyFeD1WYmgM3Q wyxD9AKZaiDHt ECdhOLU9S23xn1E5DHEnZ LLiSRS3lSC7hT1wnYpjjn ogbGVmdDsgdmVydGljYWw hYCibR300JXYo vFcbCPNiaS0yXFOfbSSvl YgaPZ4hKTFevibhQtzOGV 5HLCBLUklTVElOQSBFTEF EMcY4L9EcAsq5 WJPgfPeoGS2eoCQzYWjnR q5kdYlycRlvPR9zEDBrdu ljFYThvQ4gEPWzxQNraDa iIH6cNUFwxvwi f016JgTqQYD2YRLhnGJwF 0VckM6jVnFqIQDuISEzO8 MmvXNdXAmeB256WKcfIkX 2SNGybxLpZ2Tv YXLvhTeqIvN4c2C2Fg4dO p7rVE1wVPq5HW37OQ44hD Jca0U3vUL5D9DtXATujri qdiazcBY7BUVm ENPpiA43zUYjXKxoLr5sm 3N8f048INYbWORgfT43Le 2noWgeDKSumFAHdQ9uexw vw4ilewugFpXh ADDfCBf3LTn5WMKxxBenG mToELV4CqD2WKZ8gDQxtV 3atFylbzhmhB9fRxv+MzY oNRHipqW1S0Ia Xuf0GQFjgZsvXJ1lnFJjH RavBi9ivTgtpHjePQ6qUA EsfbgrBHLfkH2sZORpwPJ lqOngAO0xLAKc egcxj034WlKoTJY0PMMls DBwK2XwoA7jScMwVMJdDN EvU7KwnQKcLUsfA102QOc kKmX1QVFdifRi G4BxOBRucOfoZgZ5d6D4C v0BOY8UBIZ8W2HeKea0CK KqxQghBG6paETyTUjdPq3 gbQpqwJwhVD2f KZErxjkqTUDkjF0jPDQcd ETxaSakCM9vXBFcikpju0 08DjEpGCN9VIDxcFJpN5E fiI7xQlXgIBEo OTYwF2FjzYFiAOcgD634A TplSgR2PEKjvdKuR6GdMI UnfIfmDoS2i9P4Jf3DVKf vdGQ+WM43id32 D0MaVgzvCjk2NRJrFMD6v WX9rF8zADPqKNijy5Q2uT G5F2FtkdPzbu5hg9bcAYF hHTovW87qwUQg f5U3ZOAqfDZ1RYUlgJgrM pNxvQ87Isz+PGNvbGdyb3 LlCfzvd5sjn4damWs6RyL wJSIgdmFsaWdu NYC4u1IuDn33L73eAYbcU HRoPSIzMCUiIHZhbGlnbj 6smQ1lWf4+XVGoaOY0cUX 3cA4nKbFrMaH8 YBveV922FfVmhNQsYpajp 3tly4mywKl5ToUcUZEsdy DucJtaZHP8u0LyIw01K0H osWruj8OtQwe6 zy45pQXmq6B6lXB8P4MbD NVoynsljVBafAitAZ3nQZ JqipuxGUDnaE9tEJRyG2i 5PrJaBsB8AHwo O9UgddA7CNJueTGxOCYdu QMPpA0yzpccn6ycxqsnWx SxZEQnXEo7PRt4ONHinVf jAvZlUBR7AmZ3 YVI6uJAwuM4zeFliikahv G9wOyc+CNm3a1kyuFVmDS 4seHT3XE94DG14tIOjx6I 0qAF6O8QlZHXc cwasonpyeBV1LEBmJNNll S42Eo2egOxhCm4fYXKgQO U1XAUczNUwP0PnoQ5hYkA wITPxFTEbG3Nb eIKqNBnaZ808SAjlDxX5J KZffiQbP8JwKSSwsExbSy C7j3O8Nt2NFX69ML94LD9 5aGDhp1U8cEH0 Z0AwVVOudcmhepdiiDI7O WOqXPTpjQ99Ql5vxSjlXn 9jJMRaGYM5ZMQbkQWoH6Q crR1bUaPaYPAq EPBgX0WcgHXtBRdmW910O DixElO7YVFiglOtC9YkBO VubJebSoO4p6N9Cg5QNo1 7VV10CO85aWWl f8U6xWK6J4DcHNGjjrksg pammKS0BGQgBWHogL46Oa 9irXefUz5zZKZzKDS3VPE qwLXyI2YiyR7q MhQxQEGeJHEbL4EnwPRxA FxcZ439MXtwAuO4PJFyfk WwC4JkOBEzhDidNiE6w9H 2Fu6FCEhtclo1 L5KcXmgysFK+PL84WONwQ D62sZRmaPZif9lmoYq4Fj MyHJDyOSQ6fUnuWPguj7D lZTMqQ40uqSPj c2U (more content not included)... [facility] ED Clinical Summaryon 2022 ED Clinical Summary [facility] ? Urgent Care [address] [place] [address] Clinical Summary PERSON INFORMATION Name: NOBLE CASTILLO Age: 37 Years Sex: FEMALE : 1985 MRN: Acct#: Visit Reason: UC - Sinus Pain or Congestion; UC - Ear Pain; LT EAR PAIN Arrival: 12/16/2022 11:36:50 Discharge: 12/16/2022 12:00:00 LOS: 000 00:24 Check In: 12/16/2022 11:36:50 Checkout: 12/16/2022 12:00:00 Address: [address] [place] [id number] PCP: Ame Ortiz CNP PROVIDER INFORMATION Provider Role Assigned Unassigned Sandra Dinh [employer] Nurse 12/16/2022 11:39:08 Cong Cobian PA-C ED PA 12/16/2022 11:41:06 VITALS INFORMATION Vital Sign Triage Latest Temperature Tympanic Temperature Temporal Artery Pulse Rate O2 Sat 98 % 98 % Respiratory Rate Blood Pressure /78 mmHg /78 mmHg MEDICAL INFORMATION Medications Given: Allergy Information: Tape; Betadine; codeine PHYSICIAN DOCUMENTATION DISCHARGE INFORMATION: Discharge Disposition: Home Discharge Location: Home PATIENT EDUCATION INFORMATION Instructions: Otitis Media, Adult, Nlle-st-Bpxk Follow-Up: With: Address: When: Ame Ortiz [address] [place], [place] [id number] Business (1) Within 1 week Comments: Please follow-up with , call the office schedule an appointment to be seen in a week or sooner for continued care, taking amoxicillin as prescribed, take smnj-chb-ffbnwkj ibuprofen Tylenol as needed for pain and fever, drink plenty water stay hydrated, and return back to the urgent care center for any worsening symptoms, concerns, or complications. DIAGNOSIS: 1:Left otitis media Patient Understands: Yes - Patient/family/caregi regina verbalizes understanding of instructions given Comment: Normal [facility] ED Patient Summaryon 023 ED Patient Summary [facility] ? Urgent Care [address] [place] [address] [id number] PATIENT DISCHARGE INSTRUCTIONS Patient Information Name: NOBLE CASTILLO Age: 37 Years Date of : 1985 [facility]: [id number] Reason For Visit: UC - Sinus Pain or Congestion; UC - Ear Pain; LT EAR PAIN Arrival Time: 12/16/2022 11:36:50 Primary Care Physician: Ame Ortiz CNP Attending Physician: Cong Cobian PA-C Comment: Patient Education With: Address: When: Ame Ortiz [address] [place] [address] [employer] Within 1 week Comments: Please follow-up with , call the office schedule an appointment to be seen in a week or sooner for continued care, taking amoxicillin as prescribed, take snfg-jvj-mwzwwgz ibuprofen Tylenol as needed for pain and [...] Follow these instructions at home: ? Take ceeh-kxq-hllshvc and prescription medicines only as told by [...] provider. Document Revised: 01/25/2022 Document Reviewed: 01/25/2022 [employer] Patient Education ? 2021 [employer] Medication Information: The exam and treatment you received today in the [facility] Emergency Department were for an urgent problem and are not intended as complete care. It is important for you to follow up with a doctor, nurse practitioner, or physician?s assistant cross country coach for ongoing care. If your symptoms become [...] Radiologist will (more content not included)... Normal [facility] Urgent Care [place] 023 Urgent Care Record [facility] ? Urgent Care [address] [place] [address] PATIENT DISCHARGE INSTRUCTIONS Patient Information Name: NOBLE CASTILLO Age: 37 Years Date of : 1985 [facility]: [id number] Reason For Visit: UC - Sinus Pain or Congestion; UC - Ear Pain; LT EAR PAIN Arrival Time: 12/16/2022 11:36:50 Primary Care Physician: Ame Ortiz CNP Attending Physician: Cong Cobian PA-C Comment: Visit Diagnosis: Diagnoses This Visit Left otitis media (H66.92) UC - Ear Pain ([id number]) UC - Sinus Pain or Congestion ([id number]) If you received any narcotics, sedation, or [...] documents With: Address: When: Ame Ortiz [address] [place] [address] Business (1) Within 1 week Comments: Please follow-up with , call the office schedule an appointment to be seen in a week or sooner for continued care, taking amoxicillin as prescribed, take iyxr-vsl-lgfvcoq ibuprofen Tylenol as needed for pain and fever, drink plenty water stay hydrated, and return back to the urgent care center for any worsening symptoms, concerns, or complications. Medication Information: The exam and treatment you received today in the [facility] Urgent Care were for an urgent problem and are not intended as complete care. It is important for you to follow up with a doctor, nurse practitioner, or physician?s assistant cross country coach for ongoing care. If your symptoms become [...] so we can reach you if necessary. [facility] has provided you with a complete list of medications post discharge. Please inform your supervisor line department/provider of your visit and for further instruction on these medications. Any specific questions regarding your chronic medications and dosages should be discussed with your primary care physician(s) and/or pharmacist. New Medications [id number], [address] [place] [id number], [phone] amoxicillin (amoxicillin 500 mg oral capsule) 1 [...] 1 capsule by mouth once daily. rizatriptan (Maxalt-[employer]DER 10 mg oral tablet, disintegrating) 1 tab(s) [...] The condition (more content not included)... Normal [facility] ER URINE PROFILEon 2 Bilirubin Ql (U) Negative Normal NEGATIVE [facility] Comment on above: Performed By: #### E RUR #### [facility] [address] [place] [address] Dr. Phong Thayer Clarity (U) CLEAR Normal CLEAR [facility] Comment on above: Performed By: #### E RUR #### [facility] [address] [place] [address] Dr. Phong Thayer Color (U) LT. YELLOW Normal YELLOW [facility] Comment on above: Performed By: #### E RUR #### [facility] [address] [place] [address] Dr. Phong MONTILLA A micrscopic examination will be performed if indicated. Normal [facility] Comment on above: Performed By: #### E RUR #### [facility] [address] [place] [address] Dr. Phong Thayer Glucose Ql (U) Negative Normal NEGATIVE [facility] Comment on above: Performed By: #### E RUR #### [facility] [address] [place] [address] Dr. Phong Thayer Hemoglobin Ql (U) Negative Normal NEGATIVE [facility] Comment on above: Performed By: #### E RUR #### [facility] [address] [place] [address] Dr. Phong Thayer Ketones Ql (U) Negative Normal NEGATIVE [facility] Comment on above: Performed By: #### E RUR #### [facility] [address] [place] [address] Dr. Phong Thayer LEUKOCYTES Negative Normal NEGATIVE [facility] Comment on above: Performed By: #### E RUR #### [facility] [address] [place] [address] Dr. Phong Thayer Nitrite Ql (U) Negative Normal NEGATIVE [facility] Comment on above: Performed By: #### E RUR #### [facility] [address] [place] [address] Dr. Phong Thayer pH (U) 6.5 [pH] Normal 5-9 [facility] Comment on above: Performed By: #### E RUR #### [facility] [address] [place] [address] Dr. Phong Thayer SPEC GRAVITY 1.015 Normal 1.005-<=1.02 5 [facility] Comment on above: Performed By: #### E RUR #### [facility] [address] [place] [address] Dr. Phong Thayer UA PROTEIN Negative Normal NEGATIVE/ TRACE [facility] Comment on above: Performed By: #### E RUR #### [facility] [address] [place] [address] Dr. Phong Thayer UR MICRO IND NOT INDICATED Normal [facility] Comment on above: Performed By: #### E RUR #### [facility] [address] [place] [address] Dr. Phong Thayer Urobilinogen Qn (U) 0.2 {Gilma'U}/dL Normal 0.2 - 1. 0 [facility] Comment on above: Performed By: #### E RUR #### [facility] [address] [place] [address] Dr. Phong Thayer XR LSPINE 2_3 VIEWSon [...] DONALD CANNON Date: 2022-10-23 16:28 Normal [facility] Coding Summaryon 10-01-2022 Coding Summary HTMLBase 64 KylqbeusTQb1sOb+PGhlY WQ+PX1QHOItZ81fjMZsdV 4BZ9uXNG8NEMTBVAPZNA4 SBH0zhOK6LUgtV7FjnlKd EvvueICjZJ10FGu8PYP9y SufCNukqM3wtACqR3s5Xa CgVN88rA66QNoyJTIeEbC 3LjZpbjsgbWFy I2wkNePykJDlEvz+PHRhY mxlIHdpZHRoPScxMDAlJy KidUmwBC5mTy2hZWBmQSZ vbGxhcHNlOiBj m7upONIaBElwXC2oiCznJ 4HlsPT1YDHxb3d1Um68pM I+MMDgPNY6hYuvTXguf16 1WpGsg6vdNCA7 xOWhDCifOPA6Y12uj4E6V SVqUCIwHRW6wQI9iC3azS jnqthfX5CvxVLrNgR2KDJ 8uGMvjE7ibYbm swwbyV6jBwn+E20KSR6OI LBGBO5EYwk2W8NjDpqdbK I+TR97POHxAU03aDFgjYT es5cfqZi3MyNv MTSrZFI4xGqzTNpgq8GnM SPnE12xnFQtw8L0SSClzR lrmRLdJmDnyWB9vX7wVRc hxbijv8xxskif Lpvji1wrnp91fZ90G14fK JkxZJYaNVN7ROVdDCSckF acuf4jmG0pFg8+YMvpx3q aj3uzyHr5VgDv AQPtloFpjHobPWV5p8YdC l68R1KhwXuvc0ClOfh8yp 67wLWnz1Z0lBJ6JUweNFD joF9jUTieOtK5 ZQJwJaVelX33pYQwJJlyE x8btFybzPvhIZ6pGOQjki puUBPsmN9zKPLirEOysQd lRP6yGLLqmwjb b585CgQfYTB1XGTwlNSwZ 6DtfG9hFeUoKPYhXGUzD9 EutLJwTMahV577BGaiLyX 7CYCstvTxT9Ku DRHadOsvBmB7c7C4Hy0Sa 6UpihknXCT4DKtuFJGkCd QdOnLmInQ0M5TsFpw6MBZ psRllXA8wA7Nc VXCqdaaeuzqlcTE8PPKwQ KGrcQ33jZMcDJgmZr8ty2 G4y468OXRsAZZdaI26Be3 udDogMTBwdCBU bM8oshnhv5wifkfyFeXoX SQzYIa7TLr5VESeyJgnHn KxLBZ9OzJ7BRQ9jJLzhU0 beTdsjozdvB8n Oyc+X60dtW9gJFK8RDX8m urbPMLtfgReLX06GB90L5 RyPjwvdGFibGU+PGRpdiB kgUunKF7eGdTv c1axu0PhJTkjB8EoQQHgL JbjPyo5ZENtUHA1jRI8sH 5lNTVbKOmzs1Z6uGP3Y5M kvfHbin9hw7nu ZLDuKBvpK07nhTJwg8E5E ERlpDL7LEGlwYxoWtHckD 93Oyc+LUUgwIrnm5XbRnd hs0aka5fyvJj6 MlZxLMWplfHheNovCQW4w 7HgGd41D40cQFonIAWxXE WaCWUwKKRryUmjjg4mrM0 wIi8+PGNvbCB3 wAU8eL8aMCVtUtA2YRhlW 980NvYimULrBzczn6ztn9 nrjFl0ArJdKIZvkkUuhZu cRZC4u4VpHu67 R79hLLhfPEIlXYCsMVAlP YHjcSehaw5ddF2hRi3+PC 7xs3youx41yB76kXN+PHR iAUC0dFrkLMyv UUCqlF9sIAzsKtU0BVEwR cCsuJ66kPLxRPtwYk0pbD somEuhMR0zQTLldgdcg42 7RhXcf1ciOXJc gGEgCAcaRNJ9W11rq1R4Q JZyRKUqCYN5nCH9yU1psU lnbjogbGVmdDsgdmVydGl fEZtjHUyzP241 IHRvcDsnPlBhdGllbnQgT wUsOHp4J3CxLpz9PRFkcZ ejZG4huXHxAVdqVg3wpPs ixPdbQH9gIAMk ypcnf381YkMga0sxEHPoi MZnORujTPC8P85bj9B5LB XhQAMrEDO9uRP7mS6iuRy nbjogbGVmdDsg arVhrJbiNLwyFFcoC258X HRvcDsnPkJpcnRoIERhdG D9VN67OY01pTJbg8X5zQE 5G0UlZJQsriny dkaisJS0HAOlEOXagV02M m4cxMkpJj1cULKdGAD8LU BvvDPjY0WoxO4iTlYbJOC wLJCfP4UzlKLf DDbbW983XSnjIfC7ZKFvy nYjZ4ZtLVWrbRfuVjR7b5 N6Ch5KE8P9MM17VU66sTU of1O7tHF4U4Rg PYXqglnujcelhKX2NRReO DRqqB12Xs9fmEciPy5nUN GjFTN3WGFszROqL5UtoY6 yOiAjMDAwMDAw P2FmtSFyAImqT344PIksE jF9NATwwqJgK9WeHFYnuZ tsDdF5t2X9Ag4DDJw7QK9 5NW85iAYyk4X8 dBB2O8VuSOBvwtzkpplqj EZ3ACSlQDIstL20Pw6mkY szJp1qTQYzOKV5JJGavMR vQ7SbzX0cUzRa QGKsUPLoS1BwsSUkGFiyY 166MZrvYaI7IQYcfjFiW9 KkGGJvpXagWoN0p5B8Mm9 FDAAeHH79MOX5 ePL9DJ26BS54O2EhVscxi GFibGU+PHRhYmxlIHdpZH RoPScxMDAlJyBzdHlsZT0 gSz5vFCTbTQGo pYrsmVXeOqBil3mxYMJrR HmyLR0tlBmiI8ZsiTA9ZT Pqc6e0Nq94S80bK3VmfUZ +BTKodPZ2oUW0 tJ3sEvPiQsT6TCjcS254I zUllZGbNgeis1upx1gfpS u2XyD9YNCvecZpkIgjWFJ 0h0VcJj65L94u IHdpZHRoPSIxNSUiIHZhb Pnwmw9tpT8uQc4+PGNvbC T7mTD7cW0eVdQtGkY7TEu xU066GzWckSWz Kzjnq5mnv8pcwTa7BsWjH LSgdbShaNdrAUN0o3TmCe 50C0UftRofu5TdTek7tv0 0mFSjy8R0aAS3 K2BrKLLmjzzywSPbpGbzO N2mBSFtbwduPWKlgA3kYW QqX5p0QyAbPkB1OHvrM6A ehsW3EPLsrMFp MDvgZQY2U00nq7V6COTxY GOwOYC6uPY0uD4obQqdhu ogbGVmdDsgdmVydGljYWw qDLryE072NAMn jWtqXVPzyM3vBLEeoHZoq ImiKX0kDMQxpbabSoxFXX 5HLCBLUklTVElOQSBFTEF ZJaZ2P9FcBdf4 ZZWfoZboRX4olEVvSIjiU v4nhElhjLyoNF5jPOCxls vkQYNsfB3zGVHjtGGehHa tTB3uWXIwgalz q809GcNhMOA3VDNucTVvF 8PvsM1sDeMkQBIgMUSrX2 VlaXYyGSxyX383KGuvRxI 9AFHiyvWeM3Az CIOgsIjpQdI1b8S1Qc3jZ w0dWZ2eSXy8UL28YA75aC Scs2W7bWJ1Z9ZlJMZhwwk mwltqbIA4OJQs EBPkoO22uMIrTFrcVs8ix 9V1u001LBStRHRfjS66Sf 6uzVxrWUHerMEXkT7gtdw la8hnitsmQvNp YUCjRKq7LBd0BNAgeJedQ nLwOUW3BhB7GQG7yCHjyC 3tqDmzsdikcA8mXys+MzY kFNFajgV1I4Ea Ysl9XEKjzUieXZ9ldAYtA VxnKy7neIchnOraTS5rYN LljkzbBXOiyD3hYZGkbMD mbSuiLT7eBMKx vyyfg577ZdZvLTI0RLGnw SZaE1NosI2nVzEiSEUtYP ReY5XhiSWyQRxzE532GEs pAbQ3EVTwahQl Z3IqBGBehKmkEnA3a4G4Q p0SYQ2OROG7D5AmFrz0IW RfuCheQB8akHIeIFqoRh5 uxKrohHviJN3b DDSthrxjPWZwuS1rUGAad MSwkNgmZT6uDUHfcodxh3 91VdElJOS1JAKqgBPaN1V jiB5eKmHfUHGs ZLCkI2UzfZQrKXofU333C LpgNkR1SUTwqcNmH7OfMZ IqdJufWrT7w1Q5Dh3STKi vdGQ+ZK63wh30 P1EmBqhhIge1QUVeCHA0y ZC2qJ9hAOQoSOitp4A3gG J9Q6WicwEpmv4qu8ewKRJ vXOxfN04buINb n8X0HQYwiYR4ZBSmtEyqS fCslV09Pdq+PGNvbGdyb3 CqGqvty7jmi8oxoMb0KlZ wJSIgdmFsaWdu DHY2f4GyKl90I54uXEmmN HRoPSIzMCUiIHZhbGlnbj 3suJ0mWn5+EUWvtWP1xGS 7kB8oZqTfKkP0 EFqvJ139GcIwmUReDtftm 9peh3cacQo5NkJwVVVxvg HmcMgzBYL0o0XmXk98Q9C hxAzoh8BvTdd5 lc19hYObk2E6yEL9H3BdO VBjdnpulRSkbQaqMC4tNQ IkjoliDINhlK3pPYXpP8d 0IeWhJmF9ZVuh L2HazzM9CTQczDWhVKIhl YBFrJ8nbyilj3rxjhmnKv AlYQXtIXl0DQz1ERDofAv sQxErEBZ8FkP4 XZO7pAIinD4zyObjfeqzk G9wOyc+QFy5d0doxWTqAY 4fsQW1FK83XZ87bGSau4D 3jQX0X3IlNCYa ufkfezjmbWA9GIVyVAXrh J73Qt6qmHbhKj1tCUQvXS Y0EZLgnWTvK9YegB5vZwE wYONiNEQqC1Qz sFUsDCwxB784GRsdYrO5B YZglbBvC2EhLFPsxLmiHm A0c1F7Xk8KFK59JN48OQ5 5gSLwz4Q5vPR9 X8UuSRLraxzfugpuvZH3E RAkHNPawM80Ph3rtQfaYn 7iHSLfXED1VGSzzVBuN9P dxX4bMhSkLGMo YISbD5JqyMUwMQxpB559X TtyHcV8YSLclxNcQ9YuMC RnhEnrEzZ4r4J5Wa7TOu5 6LG68NH03tYUk l7S9bNX5Y3XwSEKypnnyl gkveIF4OUHcNXKwmH16Vj 8fmMcfGn5fFDOuNVT9HNV drUGqY1GpyX5f XaVtRVUhXBPoS0RjpJVmT HfjB545WVlyKaL6YGBdvc OfB9HtGSPxnKshZlS3j8Q 5Fy1QJPjocay2 U8YiBnyexZE+AC27BKLnE S83eVZzmVZpy5rrgHt0Ig AqWWNpXNA9kEzoAIzzm2O cUDGhL94ipDHk c2U (more content not included)... [facility] Outside Recordson 09-30-2022 Outside Records [id number] [facility] ED Clinical Summaryon 2021 ED Clinical Summary [facility] ? Urgent Care [address] [place], [place] [id number] Clinical Summary PERSON INFORMATION Name: NOBLE CASTILLO Age: 37 Years Sex: FEMALE : 1985 MRN: Acct#: Visit Reason: Medical screening exam; [employer] Arrival: 09/29/2022 10:32:28 Discharge: 09/29/2022 11:15:00 LOS: 000 00:43 Check In: 09/29/2022 10:32:28 Checkout: 09/29/2022 11:15:00 Address: [address] [place] [id number] PCP: Ame Ortiz CNP PROVIDER INFORMATION Provider [...] verbalizes understanding of instructions given Comment: Normal [facility] ED Patient Summaryon 022 ED Patient Summary [facility] ? Urgent Care [address] [place] [address] PATIENT DISCHARGE INSTRUCTIONS Patient Information Name: NOBLE CASTILLO Age: 37 Years Date of : 1985 Reason For Visit: Medical screening exam; ADULT SCHOOL PHYSICAL Arrival Time: 09/29/2022 10:32:28 Primary Care Physician: Ame Ortiz CNP Attending Physician: Abhi Finney PA-C Comment: Patient Education Medication Information: The exam and treatment you received today in the [facility] Emergency Department were for an urgent problem and are not intended as complete care. It is important for you to follow up with a doctor, nurse practitioner, or physician?s assistant cross country coach for ongoing care. If your symptoms become [...] so we can reach you if necessary. [facility] Emergency Department has provided you with a complete list of medications post discharge. Please inform your supervisor line department/provider of your visit and for further instruction [...] capsule) 1 cap(s) Oral every day. rizatriptan (Maxalt-CONCRETE FENCE BUILDER 10 mg oral tablet, disintegrating) 1 tab(s) [...] Diagnosis: Diagnoses This Visit Medical screening exam ([id number]) If you received any narcotics, sedation, or [...] the Ans (more content not included)... Normal [facility] Urgent Care Note- Provideron 09-29-2022 Urgent Care Note- Provider Patient: NOBLE CASTILLO Age: 37 years Sex: FEMALE : 1985 [...] tab(s), PO, Daily, 28 tab(s), 0 Refill(s) Maxalt-CONCRETE FENCE BUILDER 10 mg oral tablet, disintegratin mg = [...] selected or recorded.. Surgical history: Diagnostic laparoscopy ([id number]) on 07/24/2019 at 34 Years. Tonsillectomy and adenoidectomy ([id number]). Lump ([id number]). Comments: 07/16/2019 11:30 Arabella Day RN left axilla Cholecystectomy ([id number]). Keloid of skin (04790857). Comments: 07/16/2019 11:31 Arabella Day RN left ear Foot ([id number]). Comments: 07/16/2019 11:32 Arabella Day RN titanium implant left ankle Dilatation and curettage ([id number]). Tooth extraction, multiple ([id number]). Comments: 07/16/2019 11:33 Arabella Day RN wisdom Sinus ([id number]). Comments: 07/16/2019 11:33 Arabella Day RN x2 Colonoscopy ([id number]). Esophagogastroduodeno scopy ([id number]).. Family history: No family history items have [...] 09/29/2022 11:09 EST] Abhi Finney PA-C Normal [facility] Urgent Care Rec[place] 022 Urgent Care Record [facility] ? Urgent Care [address] [place] [address] PATIENT DISCHARGE INSTRUCTIONS Patient Information Name: NOBLE CASTILLO Age: 37 Years Date of : 1985 Reason For Visit: Medical screening exam; ADULT SCHOOL PHYSICAL Arrival Time: 09/29/2022 10:32:28 Primary Care Physician: Ame Ortiz CNP Attending Physician: Abhi Finney PA-C Comment: Visit Diagnosis: Diagnoses This Visit Medical screening exam ([id number]) If you received any narcotics, sedation, or [...] and treatment you received today in the [facility] Urgent Care were for an urgent problem and are not intended as complete care. It is important for you to follow up with a doctor, nurse practitioner, or physician?s assistant cross country coach for ongoing care. If your symptoms become [...] so we can reach you if necessary. [facility] Urgent Care has provided you with a complete list of medications post discharge. Please inform your supervisor line department/provider of your visit and for further instruction [...] capsule) 1 cap(s) Oral every day. rizatriptan (Maxalt-CONCRETE FENCE BUILDER 10 mg oral tablet, disintegrating) 1 tab(s) [...] Disease Control and Prevention July 2014 Normal [facility] T3, TOTAL (TRIIODOTHYRONINE) on 09-16-2022 T3, TOTAL 132 ng/dL Normal 71-180 [facility] Comment on above: Performed By: #### T 3TOTAL ####[facility] [address] [address]Dr. Phong Thayer CBC AUTO DIFFon 09-15-2022 BASO # 0.0 103/ul Normal 0.0-0.1 [facility] Comment on above: Performed By: #### C BC #### [facility] Laboratory [address] [address] [address] Phong Thayer Basophils/100 WBC (Bld) 0.3 % Normal 0.2-2.0 [facility] Comment on above: Performed By: #### C BC #### [facility] Laboratory [address] [address] [address] Phong Thayer EO # 0.1 103/ul Normal 0.0-0.7 [facility] Comment on above: Performed By: #### C BC #### [facility] Laboratory [address] [address] [address] Phong Thayer Eosinophils/100 WBC (Bld) 0.8 % Critically low 0.9-7.0 [facility] Comment on above: Performed By: #### C BC #### [facility] Laboratory [address] [address] [address] Phong Thayer Erythrocyte distribution width (RBC) [Ratio] 12.5 % Normal 11.0-15.0 [facility] Comment on above: Performed By: #### C BC #### [facility] Laboratory [address] [address] [address] Phong Thayer Hematocrit (Bld) [Volume fraction] 42.2 % Normal 36.0-48.0 [facility] Comment on above: Performed By: #### C BC #### [facility] Laboratory [address] [place] [address] Dr. Phong Thayer Hemoglobin (Bld) [Mass/Vol] 14.3 g/dL Normal 12.0-16.0 [facility] Comment on above: Performed By: #### C BC #### [facility] Laboratory [address] [place] [address] Dr. Phong Thayer IG # 0.01 10e3/ul Normal 0.00-0.03 [facility] Comment on above: Performed By: #### C BC #### [facility] Laboratory [address] [place] [address] Dr. Phong Thayer IG % 0.1 % Normal 0.0-0.5 [facility] Comment on above: Performed By: #### C BC #### [facility] Laboratory [address] [place] [address] Dr. Phong Thayer LYMPH # 2.5 103/ul Normal 1.2-3.8 [facility] Comment on above: Performed By: #### C BC #### [facility] Laboratory [address] [place] [address] Dr. Phong Thayer Lymphocytes/100 WBC (Bld) 33.7 % Normal 20.5-60.0 [facility] Comment on above: Performed By: #### C BC #### [facility] Laboratory [address] [place] [address] Dr. Phong Thayer MANUAL DIFF REQ NO Normal [facility] Comment on above: Performed By: #### C BC #### [facility] Laboratory [address] [place] [address] Dr. Phong Thayer MCH (RBC) [Entitic mass] 29.1 pg Normal 26.7-34.0 [facility] Comment on above: Performed By: #### C BC #### [facility] Laboratory [address] [place] [address] Dr. Phong Thayer MCHC (RBC) [Mass/Vol] 33.9 g/dL Normal 29.9-35.2 [facility] Comment on above: Performed By: #### C BC #### [facility] Laboratory [address] [place] [address] Dr. Phong Thayer MCV (RBC) [Entitic vol] 85.9 fL Normal 81.0-99.0 [facility] Comment on above: Performed By: #### C BC #### [facility] [address] [place] [address] Dr. Phong Thayer MONO # 0.4 103/ul Normal 0.3-0.8 [facility] Comment on above: Performed By: #### C BC #### [facility] [address] [place] [address] Dr. Phong Thayer Monocytes/100 WBC (Bld) 5.3 % Normal 1.7-12.0 [facility] Comment on above: Performed By: #### C BC #### [facility] Laboratory [address] [place] [address] Dr. Phong Thayer NEUT # 4.5 103/ul Normal 1.4-6.5 [facility] Comment on above: Performed By: #### C BC #### [facility] Laboratory [address] [place] [address] Dr. Phong Thayer Neutrophils/100 WBC (Bld) 59.8 % Normal 43.0-75.0 [facility] Comment on above: Performed By: #### C BC #### [facility] Laboratory [address] [place] [address] Dr. Phong Thayer Platelet mean volume (Bld) [Entitic vol] 10.2 fL Normal 9.5-13.5 [facility] Comment on above: Performed By: #### C BC #### [facility] [address] [place] [address] Dr. Phong Thayer PLT 227 103/ul Normal 150-450 [facility] Comment on above: Performed By: #### C BC #### [facility] [address] [place] [address] Dr. Phong Thayer RBC 4.91 106/ul Normal 4.20-5.40 [facility] Comment on above: Performed By: #### C BC #### [facility] [address] [place] [address] Dr. Phong Thayer WBC 7.5 103/ul Normal 4.0-11.0 [facility] Comment on above: Performed By: #### C BC #### [facility] Laboratory [address] [address] [address] Phong Thayer FREE THYROXINE INDEX T7on FTI 2.37 Normal 1.30-4.50 [facility] Comment on above: Performed By: #### T SH, T4, T7, CMP #### [facility] Laboratory [id number] Phong Thayer T3U 32.0 % Normal 30.0-39.0 [facility] Comment on above: Performed By: #### T SH, T4, T7, CMP #### [facility] Laboratory [address] [address] [address] Phong Thayer LIPID PROFILEon 09-15-2022 CHOL-HDL RATIO NORM SEE BELOW Normal [facility] Comment on above: Result Comment: 3.3 - 4.4 LOW RISK 4.4 - 7.1 AVERAGE RISK 7.1 - 11.0 MODERATE RISK >11.0 HIGH RISK Performed By: #### L IPID ####[facility] [address] [id number] Thayer Cholesterol [Mass/Vol] 163 mg/dL Normal <=200 [facility] Comment on above: Performed By: #### L IPID ####[facility] [address] [id number] Thayer Cholesterol in HDL [Mass/Vol] 57 mg/dL Normal 40-60 [facility] Comment on above: Performed By: #### L IPID ####[facility] [address] [place], [place] [address]TdAnnalee Thayer Cholesterol in LDL [Mass/Vol] 69.8 mg/dL Normal [facility] Comment on above: Performed By: #### L IPID ####[facility] [address] [place], [place] [address]VqAnnalee Thayer Cholesterol.total/Ch olesterol in HDL [Mass ratio] 2.9 {ratio} Normal [facility] Comment on above: Performed By: #### L IPID ####[facility] [address] [address]Dr. Phong Thayer HDL NORMAL > or = 60 mg/dl - LO W CARDIOVASCULAR RISK <40 mg/dl - HIGH CARDIOVASCULAR RISK Normal [facility] Comment on above: Performed By: #### L IPID ####[facility] [address] [address]Dr. Phong Thayer LDL CALC NORMAL SEE BELOW Normal [facility] Comment on above: Result Comment: <100 mg/dl OPTIMAL 100 - 129 mg/dl NEAR OR ABOVE OPTIMAL 130 - 159 mg/dl BORDERLINE HIGH 160 - 189 mg/dl HIGH >190 mg/dl VERY HIGH Performed By: #### L IPID ####[facility] [address] [address]DrAnnalee Thayer Triglyceride [Mass/Vol] 181 mg/dL Critically high <=150 [facility] Comment on above: Performed By: #### L IPID ####[facility] [address] [address]DrAnnalee Thayer VLDL CALC 36.2 mg/dL Normal [facility] Comment on above: Performed By: #### L IPID ####[facility] [address] [address]DrAnnalee Thayer PROF 14(COMP METB)on 022 Albumin [Mass/Vol] 3.6 g/dL Normal 3.4-5.0 [facility] Comment on above: Performed By: #### T SH, T4, T7, CMP #### [facility] Laboratory [address] [address] [address] Phong Thayer Albumin/Globulin [Mass ratio] 1.0 {ratio} Normal [facility] Comment on above: Performed By: #### T SH, T4, T7, CMP #### [facility] Laboratory [address] [address] [address] Phong Thayer ALP [Catalytic activity/Vol] 90 U/L Normal 46-116 [facility] Comment on above: Performed By: #### T SH, T4, T7, CMP #### [facility] [address] [address] [address] Phong Thayer ALT [Catalytic activity/Vol] 27 U/L Normal 14-59 [facility] Comment on above: Performed By: #### T SH, T4, T7, CMP #### [facility] [address] [address] [address] Phong Thayer Anion gap [Moles/Vol] 14.2 mmol/L Normal [facility] Comment on above: Performed By: #### T SH, T4, T7, CMP #### [facility] [address] [address] [address] Phong Thayer AST [Catalytic activity/Vol] 13 U/L Critically low 15-37 [facility] Comment on above: Performed By: #### T SH, T4, T7, CMP #### [facility] Laboratory [address] [place] [address] Dr. Phong Thayer Bilirubin [Mass/Vol] 0.2 mg/dL Normal 0.2-1.0 [facility] Comment on above: Performed By: #### T SH, T4, T7, CMP #### [facility] Laboratory [address] [address] [address] Phong Thayer Calcium [Mass/Vol] 9.0 mg/dL Normal 8.5-10.1 [facility] Comment on above: Performed By: #### T SH, T4, T7, CMP #### [facility] Laboratory [address] [address] [address] Phong Thayer Chloride [Moles/Vol] 103 mmol/L Normal 98-107 [facility] Comment on above: Performed By: #### T SH, T4, T7, CMP #### [facility] [address] [address] [address] Phong Thayer CO2 [Moles/Vol] 23.9 mmol/L Normal 21.0-32.0 [facility] Comment on above: Performed By: #### T SH, T4, T7, CMP #### [facility] Laboratory [address] [address] [address] Phong Thayer Creatinine [Mass/Vol] 0.76 mg/dL Normal 0.55-1.02 [facility] Comment on above: Performed By: #### T SH, T4, T7, CMP #### [facility] Laboratory [address] [place] [address] Dr. Phong Thayer EGFR-AF CITIZ[place] >60 Normal >=60 [facility] Comment on above: Performed By: #### T SH, T4, T7, CMP #### [facility] Laboratory [address] [place] [address] Dr. Phong Thayer EGFR-NON AF CITIZEN OF [place] >60 Normal >=60 [facility] Comment on above: Performed By: #### T SH, T4, T7, CMP #### [facility] Laboratory [address] [place] [address] Dr. Phong Thayer Globulin (S) [Mass/Vol] 3.6 g/dL Normal [facility] Comment on above: Performed By: #### T SH, T4, T7, CMP #### [facility] Laboratory [address] [place] [address] Dr. Phong Tahyer Glucose [Mass/Vol] 95 mg/dL Normal 74-106 [facility] Comment on above: Performed By: #### T SH, T4, T7, CMP #### [facility] [address] [place] [address] Dr. Phong Thayer Potassium [Moles/Vol] 4.1 mmol/L Normal 3.5-5.1 [facility] Comment on above: Performed By: #### T SH, T4, T7, CMP #### [facility] Laboratory [address] [place] [address] Dr. Phong Thayer Protein [Mass/Vol] 7.2 g/dL Normal 6.4-8.2 [facility] Comment on above: Performed By: #### T SH, T4, T7, CMP #### [facility] [address] [place] [address] Dr. Phong Thayer Sodium [Moles/Vol] 137 mmol/L Normal 136-145 [facility] Comment on above: Performed By: #### T SH, T4, T7, CMP #### [facility] Laboratory [address] [address] [address] Phong Thayer Urea nitrogen [Mass/Vol] 13.0 mg/dL Normal 7.0-18.0 [facility] Comment on above: Performed By: #### T SH, T4, T7, CMP #### [facility] Laboratory [address] [id number] Phong Thayer Urea nitrogen/Creatinine [Mass ratio] 17.1 mg/mg Normal [facility] Comment on above: Performed By: #### T SH, T4, T7, CMP #### [facility] Laboratory [address] [address] [address] Phong Thayer T4on 09-15-2022 T4 [Mass/Vol] 7.40 ug/dL Normal 4.80-13.90 [facility] Comment on above: Performed By: #### T SH, T4, T7, CMP #### [facility] Laboratory [address] [address] [address] Phong Thayer TSHon 09-15-2022 TSH 2.515 uIU/mL Normal 0.358-3.740 [facility] Comment on above: Performed By: #### T SH, T4, T7, CMP #### [facility] Laboratory [address] [address] [address] Phong Thayer VITAMIN B12on 09-15-2022 Cobalamin (Vitamin B12) [Mass/Vol] 423.0 pg/mL Normal 193.0-986.0 [facility] Comment on above: Performed By: #### V ITCLAIRE, VITB12 ####[facility] [address] [id number]. Phong Thayer VITAMIN D 25 OHon 09-15-2022 VIT D 25-OH 28.3 ng/mL Normal [facility] Comment on above: Performed By: #### V ITAD, VITB12 ####[facility] [address] [id number]. Phong Thayer VIT D RANGES SEE BELOW Normal [facility] Comment on above: Result Comment: <20 ng/mL Vit D deficient 20 - <30 ng/mL Vit D insufficient 30 - 100 ng/mL Vit D sufficient >100 ng/mL Potential Toxicity Performed By: #### V ITAD, VITB12 ####[facility] [address] [place], [place] [address]IzAnnalee Thayer A1C HEMOGLOBINon 09-02-2022 HbA1c (Bld) [Mass fraction] 5.1 % [employer] Other HbA1c (Bld) [Mass fraction]o n 09-02-2022 A1C HEMOGLOBIN [facility] Other Lab - Reference Lab Resultso n 07-19-2022 Lab - Reference Lab Results [id number]#1.0 0OTGTIFF [facility] T-Spoton 07-16-2022 T-Spot See Report [facility] Comment on above: Performed By: #### 5 [id number], [id number], [id number] ####[facility] (DEFAULT)[address] [place] [address] HBSab Qnt LCon 07-14-2022 Hep B Surf Ab Quant LC 301.3 mIU/mL Invalid Interpretation Code Immunity>9.9 [facility] Comment on above: Result Comment: Stat us of Immunity Anti-HBs Level Inconsistent with Immunity 0.0 - 9.9 Consistent with Immunity >9.9 Performed At: [facility] [id number] Pancho Higgins PhD Ph:[phone] Performed By: #### 5 [id number], [id number], [id number] ####[facility] (DEFAULT)[address] [place] [address] Lab - Toxicology Resultson 0 07-14-2022 Lab - Toxicology Results [id number]#1.0 0OTGTIFF [facility] Measles/Mumps/Rubella Immuni ty LCon 07-14-2022 Mumps Abs, IgG LC 38.4 AU/mL Invalid Interpretation Code Immune >10.9 [facility] Comment on above: Result Comment: Nega tive <9.0 Equivocal 9.0 - 10.9 Positive >10.9 A positive result generally indicates past exposure to Mumps virus or previous vaccination. Performed At: [address] [id number] Pancho Higgins PhD Ph:[phone] Performed By: #### 5 [id number], [id number], [id number] ####[facility] (DEFAULT)[address] [place] [address] Rubella Antibodies, IgG LC 5.78 index Invalid Interpretation Code Immune >0.99 [facility] Comment on above: Result Comment: Non- immune <0.90 Equivocal 0.90 - 0.99 Immune >0.99 Performed By: #### 5 [id number], [id number], [id number] ####[facility] (DEFAULT)[address] [place] [address] Rubeola Ab, IgG, EIA LC 72.4 AU/mL Invalid Interpretation Code Immune >16.4 [facility] Comment on above: Result Comment: Nega tive <13.5 Equivocal 13.5 - 16.4 Positive >16.4 Presence of antibodies to Rubeola is presumptive evidence of immunity except when acute infection is suspected. Performed By: #### 5 [id number], [id number], [id number] ####[facility] (DEFAULT)[address] [place] [address] Nicotine Metabolite, Urine L Con 07-14-2022 Cotinine LC Negative Invalid Interpretation Code [id number] [facility] Comment on above: Result Comment: Perf ormed At: [facility] [place] [address] [place], [place] [id number] Mark Puentes PhD Ph:[phone] Performed By: #### 1 [id number] ####[facility] (DEFAULT)[address] [place] [address] XR FOOT AIDA MIN 3 VIEWSon XR [...] by: RAFAEL COATS Date: 2022-07-07 13:58 Normal [facility] Urine culture routineOrdered By: AME ORTIZ on 05-27-2022 Bacteria identified Cx Nom (U) Staphylococcus saprophyticus [facility] Urinalysis - AUTOMATEDon Appearance (U) clear [employer] Other Bilirubin Ql (U) Negative [employer] Other Color (U) lt. yellow [employer] Other Glucose Ql (U) Negative [employer] Other Hemoglobin Ql (U) moderate [employer] Other Ketones Ql (U) Negative [employer] Other Leukocyte esterase Test strip Ql (U) small [employer] Other Nitrite Ql (U) Negative [employer] Other pH (U) 6.0 [pH] [employer] Other Protein Ql (U) Negative [employer] Other Specific gravity (U) [Rel density] 1.010 [employer] Other Urobilinogen (U) [Mass/Vol] 0.2 mg/dL [employer] Other Urinalysis - AUTOMATED [employer] Other Urine Cultureon 05-24-2022 Bacteria identified Cx Nom (U) [employer] Other XR hand LT min 3V*on 021 XR hand LT min 3V* [facility] [employer] Other XR hand LT min 3V* [facility] [employer] Other XR hand LT min 3V* [address] [place] [address] [employer] Other XR hand LT min 3V* [place] [address] [employer] Other XR hand LT min 3V* XRay Report [employer] Other XR hand LT min 3V* Signed [employer] Other XR hand LT min 3V* Patient: Noble Castillo MR#: [id number] [employer] Other XR hand LT min 3V* 7804 [employer] Other XR hand LT min 3V* : 1985 Acct:[id number] [employer] Other XR hand LT min 3V* Age/Sex: 36 / F ADM Date: 10/02/21 [employer] Other XR hand LT min 3V* Loc: XDUCLY Room: Type: REG CLI [employer] Other XR hand LT min 3V* Attending Dr: Sera ALFORD [employer] Other XR hand LT min 3V* Ordering Provider: PRASHANTH Jordan [employer] Other XR hand LT min 3V* Date of Service: 10/02/21 [employer] Other XR hand LT min 3V* XR/XR hand LT min 3V*: Finger pain, left [employer] Other XR hand LT min 3V* Copies to: Sera Lares ADVERTISING ANALYST-C [employer] Other XR hand LT min 3V* 3 viewsLEFT hand plain film [employer] Other XR hand LT min 3V* COMPARISON:None [facility] [employer] Other XR hand LT min 3V* HISTORY:LEFT hand injury [employer] Other XR hand LT min 3V* No fracture, dislocation or focal soft tissue abnormality seen. [employer] Other XR hand LT min 3V* XR/XR hand LT min 3V* [employer] Other XR hand LT min 3V* IMPRESSION:No acute findings [employer] Other XR hand LT min 3V* Impression dictated by: Fuad Swain M.D.10/02/2021 6:01 PM [employer] Other XR hand LT min 3V* Dictation Location: [facility]--03 [employer] Other XR hand LT min 3V* Transcribed By: NUZHAT 10/02/21 180 [employer] Other XR hand LT min 3V* Dictated By: Fuad Swain DO 10/02/21 1759 [employer] Other XR hand LT min 3V* Signed By: [employer] Other XR hand LT min 3V* 10/02/21 180 [facility] [employer] Other Automated basophil %on 11-25 Basophils/100 WBC (Bld) 1.0 % [facility] Automated basophil counton 0 11-25-2020 Basophils (Bld) [#/Vol] 0.1 10*3/uL 0.0-0.2 [facility] Automated blood lymphocyte c ount (number/volume)on 11-25-2020 Lymphocytes (Bld) [#/Vol] 2.2 10*3/uL 1.00-4.8 [facility] Automated blood lymphocyte c ount as percentage of total leukocyteson 11-25-2020 Lymphocytes/100 WBC (Bld) 29.2 % [facility] Automated blood monocyte cou nton 11-25-2020 Monocytes (Bld) [#/Vol] 0.4 10*3/uL 0.0-0.8 [facility] Automated blood platelet cou nt (count/volume)on 11-25-2020 Platelets (Bld) [#/Vol] 247 10*3/uL 150-450 [facility] Automated blood platelet ton n volume measurementon 11-25-2020 Platelet mean volume (Bld) [Entitic vol] 8.8 fL 6.3-10.7 [facility] Automated eosinophil %on Eosinophils/100 WBC (Bld) 1.1 % [facility] Automated eosinophil counton 11-25-2020 Eosinophils (Bld) [#/Vol] 0.1 10*3/uL 0.0-0.45 [facility] Automated erythrocyte distri bution width ratioon 11-25-2020 Erythrocyte distribution width (RBC) [Ratio] 13.3 % 11.9-15.3 [facility] Automated erythrocyte mean c orpuscular hemoglobin (mass per erythrocyte)on 11-25-2020 MCH (RBC) [Entitic mass] 29.2 pg 24.7-34.3 [facility] Automated erythrocyte mean c orpuscular hemoglobin concentration measurement (mass/volon 11-25-2020 MCHC (RBC) [Mass/Vol] 33.6 g/dL 32.0-35.0 [facility] Automated erythrocyte mean c orpuscular volumeon 11-25-2020 MCV (RBC) [Entitic vol] 87.0 fL 80-100 [facility] Automated monocyte %on 11-25 Monocytes/100 WBC (Bld) 5.4 % [facility] Automated neutrophil %on Neutrophils/100 WBC (Bld) 63.3 % [facility] Blood erythrocytes automated count (number/volume)on 11-25-2020 RBC (Bld) [#/Vol] 4.64 10*6/uL 3.60-5.00 [facility] Blood hemoglobin measurement (mass/volume)on 11-25-2020 Hemoglobin (Bld) [Mass/Vol] 13.6 g/dL 11.8-15.4 [facility] Blood leukocytes automated c ount (number/volume)on 11-25-2020 WBC (Bld) [#/Vol] 7.7 10*3/uL 3.8-11.6 [facility] Blood neutrophil count by au tomated method (number/volume)on 11-25-2020 Neutrophils (Bld) [#/Vol] 4.9 10*3/uL 1.8-7.7 [facility] COVID-19 Positive/Negativeon 11-25-2020 COVID-19 Positive/Negative Negative Negative [facility] Comment on above: Testing for SARS-CoV -2 by RT-PCRThis test was developed and its performance characteristics determined by [employer] ([employer]) and validated at the [facility]. This test has not been FDA [...] among non-blacks MDRD (S/P/Bld) [Vol rate/Area] mL/min/{1.73_m2} [facility] Hematocrit [Volume Fraction] of Blood by Automated counton 11-25-2020 Hematocrit (Bld) [Volume fraction] 40.4 % 34.0-46.4 [facility] Otheron 11-25-2020 Coronavirus 2019 PCR Interp N/A [facility] GFR/1.73 sq M.predicted MDRD (S/P/Bld) [Vol rate/Area] mL/min/{1.73_m2} [facility] Comment on above: GFR estimated refere nce range: According to KDOQI guidelines, <60 ml/min/1.73m2 is sufficient to diagnose a patient with chronic kidney disease. Nucleated RBC/100 WBC (Bld) [Ratio] 0.0 % 0-0.5 [facility] Pharmacy Creatinine Clearance (Chem N/A [facility] Serum or plasma calcium eleni urement (mass/volume)on 11-25-2020 Calcium [Mass/Vol] 9.3 mg/dL 8.2-10.2 [facility] Serum or plasma chloride ton surement (moles/volume)on 11-25-2020 Chloride [Moles/Vol] 104 mmol/L 95-114 [facility] Serum or plasma creatinine m easurement with calculation of estimated glomerular filtron 11-25-2020 Creatinine [Mass/Vol] 0.76 mg/dL 0.44-1.03 [facility] Serum or plasma glucose eleni urement (mass/volume)on 11-25-2020 Glucose [Mass/Vol] 96 mg/dL 70-100 [facility] Comment on above: ADA recommended refe rence rangeRandom Glucose Reference Range is dependent on time and content of last meal. Glucose of more than 200 mg/dL in a nonstressed, ambulatory subject supports the diagnosis of Diabetes Mellitus. Serum or plasma potassium me asurement (moles/volume)on 11-25-2020 Potassium [Moles/Vol] 4.1 mmol/L 3.5-5.1 [facility] Serum or plasma sodium measu rement (moles/volume)on 11-25-2020 Sodium [Moles/Vol] 138 mmol/L 136-146 [facility] Serum or plasma total carbon dioxide measurement (moles/volume)on 11-25-2020 CO2 [Moles/Vol] 24.6 mmol/L 22.0-30.0 [facility] Serum or plasma urea nitroge n measurement (mass/volume)on 11-25-2020 Urea nitrogen [Mass/Vol] 6 mg/dL 07-23 [facility] COVID-19 SOFIAon 10-27-2020 COVID-19 MINERVA Negative Negative [facility] Comment on above: This is a duplicate test result based off of the Minerva SARS Antigen (LIZ) test performed within the Microbiology department. Otheron 10-27-2020 SARS Antigen (LFIA) [facility] Albumin [Mass/volume] in Ser um or Plasmaon 09-12-2020 Albumin [Mass/Vol] 3.9 g/dL 3.2-5.5 [facility] Cholesterol [Mass/volume] in Serum or Plasmaon 09-12-2020 Cholesterol [Mass/Vol] 175 mg/dL 140-200 [facility] Comment on above: Chol less than 200 m g/dl low riskChol 201-239 mg/dl borderline riskChol 240 mg/dl and greater high risk Cholesterol in LDL [Mass/vol ume] in Serum or Plasma by calculationon 09-12-2020 Cholesterol in LDL [Mass/Vol] 74 mg/dL 0-100 [facility] Comment on above: LDL ATP III CLASSIFI CATIONLDL less than 100 mg/dL OptimalLDL 100-129 mg/dL Near or above optimalLDL 130-159 mg/dL Borderline highLDL 160-189 mg/dL HighLDL greater than 189 mg/dL Very high Cholesterol in VLDL [Mass/vo lume] in Serum or Plasma by calculationon 09-12-2020 Cholesterol in VLDL [Mass/Vol] 44 mg/dL [facility] Estimated glomerular filtrat ion rate (GFR) non- Americanon 09-12-2020 GFR/1.73 sq M predicted among non-blacks MDRD (S/P/Bld) [Vol rate/Area] mL/min/{1.73_m2} [facility] Metabolic Panelon 09-12-2020 Glucose [Mass/Vol] 81 mg/dL 70-100 [facility] Otheron 09-12-2020 GFR/1.73 sq M.predicted MDRD (S/P/Bld) [Vol rate/Area] mL/min/{1.73_m2} [facility] Comment on above: GFR estimated refere nce range: According to KDOQI guidelines, <60 ml/min/1.73m2 is sufficient to diagnose a patient with chronic kidney disease. Pharmacy Creatinine Clearance (Chem N/A [facility] Protein [Mass/volume] in Ser um or Plasmaon 09-12-2020 Protein [Mass/Vol] 6.5 g/dL 6.1-7.9 [facility] Serum globulin measurement b y calculation (mass/volume)on 09-12-2020 Globulin (S) [Mass/Vol] 2.6 g/dL [facility] Serum or plasma alanine rizvi otransferase measurement without P-5'-P (enzymatic activion 09-12-2020 ALT No additional P-5'-P [Catalytic activity/Vol] 22 U/L 10-60 [facility] Serum or plasma albumin/glob ulin mass ratioon 09-12-2020 Albumin/Globulin [Mass ratio] 1.5 {ratio} [facility] Serum or plasma alkaline katherine sphatase measurement (enzymatic activity/volume)on 09-12-2020 ALP [Catalytic activity/Vol] 76 U/L 32-92 [facility] Serum or plasma aspartate am inotransferase measurement (enzymatic activity/volume)on 09-12-2020 AST [Catalytic activity/Vol] 18 U/L 10-42 [facility] Serum or plasma calcium eleni urement (mass/volume)on 09-12-2020 Calcium [Mass/Vol] 9.3 mg/dL 8.2-10.2 [facility] Serum or plasma chloride ton surement (moles/volume)on 09-12-2020 Chloride [Moles/Vol] 101 mmol/L 95-114 [facility] Serum or plasma creatinine m easurement with calculation of estimated glomerular filtron 09-12-2020 Creatinine [Mass/Vol] 0.67 mg/dL 0.44-1.03 [facility] Serum or plasma high density lipoprotein (HDL) cholesterol measurementon 09-12-2020 Cholesterol in HDL [Mass/Vol] 57 mg/dL 35-85 [facility] Comment on above: HDL CHOL ATP-III CLA SSIFICATION Cardiovascular RiskHDL > or equal to 60 mg/dL LOWHDL < 40 mg/dL HIGH Serum or plasma potassium me asurement (moles/volume)on 09-12-2020 Potassium [Moles/Vol] 3.9 mmol/L 3.5-5.1 [facility] Serum or plasma sodium measu rement (moles/volume)on 09-12-2020 Sodium [Moles/Vol] 136 mmol/L 136-146 [facility] Serum or plasma total biliru bin measurement (mass/volume)on 09-12-2020 Bilirubin [Mass/Vol] 0.5 mg/dL 0.3-1.2 [facility] Serum or plasma total carbon dioxide measurement (moles/volume)on 09-12-2020 CO2 [Moles/Vol] 23.4 mmol/L 22.0-30.0 [facility] Serum or plasma total choles terol/high density lipoprotein (HDL) cholesterol mass yany 09-12-2020 Cholesterol.total/Ch olesterol in HDL [Mass ratio] 3.1 {ratio} [facility] Serum or plasma urea nitroge n measurement (mass/volume)on 09-12-2020 Urea nitrogen [Mass/Vol] 7 mg/dL 9- [facility] Triglyceride [Mass/volume] i n Serum or Plasmaon 09-12-2020 Triglyceride [Mass/Vol] 220 mg/dL 35-149 [facility] Comment on above: TRIG ATP III CLASSIF ICATIONTRIG less than 150 mg/dL NormalTRIG 150-199 mg/dL Borderline highTRIG 200-500 mg/dL High TRIG greater than 500 mg/dL Very highStandard traceable to the Center for Disease Conrtrol and Prevention (CDC) test method. Vital Signs Date Time Vital Sign Value Performing Clinician Facility 04-09-2024 13:31-0400 Blood Pressure Location Lester Mcelroy [facility] 04-09-2024 13:31-0400 Diastolic blood pressure 84 mm[Hg] Lester Dominguezli [facility] 04-09-2024 13:31-0400 Heart rate 61 /min Mohjolantad Bertramuchli [facility] 04-09-2024 13:31-0400 Respiratory rate 16 /min Jeannetted Angelicali [facility] 04-09-2024 13:31-0400 Systolic blood pressure 122 mm[Hg] Lester Dominguezli [facility] 02-26-2024 14:18-0400 Body height 172.72 cm [facility] 02-26-2024 14:18-0400 Body mass index (BMI) [Ratio] 33.1 kg/m2 [facility] 02-26-2024 14:18-0400 Body temperature 98.2 [degF] [facility] 02-26-2024 14:18-0400 Body weight 98.99 kg [facility] 02-26-2024 14:18-0400 Diastolic blood pressure 76 mm[Hg] [facility] 02-26-2024 14:18-0400 Heart rate 68 /min [facility] 02-26-2024 14:18-0400 Respiratory rate 18 /min [facility] 02-26-2024 14:18-0400 SaO2% (BldA) [Mass fraction] 98 % [facility] 02-26-2024 14:18-0400 Systolic blood pressure 120 mm[Hg] [facility] 10-17-2023 16:30-0500 Body height 162.56 cm Ml Chisholm Other [employer] Other 10-17-2023 16:30-0500 Body mass index (BMI) [Ratio] 34.67 kg/m2 Ml Chisholm Other [employer] Other 10-17-2023 16:30-0500 Body weight 91.63 kg Ml Chisholm Other [employer] Other 10-17-2023 16:30-0500 Diastolic blood pressure 71 mm[Hg] Ml Chisholm Other [employer] Other 10-17-2023 16:30-0500 Respiratory rate 18 /min Ml Chisholm Other [employer] Other 10-17-2023 16:30-0500 SaO2% (BldA) [Mass fraction] 96 % Ml Chisholm Other [employer] Other 10-17-2023 16:30-0500 Systolic blood pressure 112 mm[Hg] Ml Chisholm Other [employer] Other 08-10-2023 11:55-0400 Body height 162.56 cm Sera Lares Other [employer] Other 08-10-2023 11:55-0400 Body mass index (BMI) [Ratio] 37.24 kg/m2 Sera Lares Other [employer] Other 08-10-2023 11:55-0400 Body temperature 97.7 [degF] Sera Lares Other [employer] Other 08-10-2023 11:55-0400 Body weight 98.43 kg Sera Lares Other [employer] Other 08-10-2023 11:55-0400 Respiratory rate 18 /min Sera Lares Other [employer] Other 08-10-2023 11:55-0400 SaO2% (BldA) [Mass fraction] 98 % Sera Lares Other [employer] Other 09-08-2022 10:30-0500 Body height 162.56 cm Marleni Missler Other [employer] Other 09-08-2022 10:30-0500 Body mass index (BMI) [Ratio] 34.93 kg/m2 Marleni Missler Other [employer] Other 09-08-2022 10:30-0500 Body weight 92.31 kg Marleni Missler Other [employer] Other 09-08-2022 10:30-0500 Diastolic blood pressure 77 mm[Hg] Marleni Missler Other [employer] Other 09-08-2022 10:30-0500 Respiratory rate 18 /min Marleni Missler Other [employer] Other 09-08-2022 10:30-0500 SaO2% (BldA) [Mass fraction] 96 % Marleni Missler Other [employer] Other 09-08-2022 10:30-0500 Systolic blood pressure 117 mm[Hg] Marleni Missler Other [employer] Other 09-02-2022 15:00-0400 Body height 162.56 cm Ame Ortiz Other [employer] Other 09-02-2022 15:00-0400 Body mass index (BMI) [Ratio] 34.5 kg/m2 Ame Ortiz Other [employer] Other 09-02-2022 15:00-0400 Body temperature 98.6 [degF] Ame Ortiz Other [employer] Other 09-02-2022 15:00-0400 Body weight 91.17 kg Ame Ortiz Other [employer] Other 09-02-2022 15:00-0400 Diastolic blood pressure 82 mm[Hg] Ame Patelault Other [employer] Other 09-02-2022 15:00-0400 Respiratory rate 18 /min Ame Ortiz Other [employer] Other 09-02-2022 15:00-0400 SaO2% (BldA) [Mass fraction] 86 % Ame Ortiz Other [employer] Other 09-02-2022 15:00-0400 Systolic blood pressure 129 mm[Hg] Ame Patelault Other [employer] Other 07-10-2022 12:10-0400 Body height 162.56 cm Ame Patelault Other [employer] Other 07-10-2022 12:10-0400 Body mass index (BMI) [Ratio] 33.91 kg/m2 Ame Ortiz Other [employer] Other 07-10-2022 12:10-0400 Body temperature 98.6 [degF] Ame Ortiz Other [employer] Other 07-10-2022 12:10-0400 Body weight 89.63 kg Ame Ortiz Other [employer] Other 07-10-2022 12:10-0400 Diastolic blood pressure 81 mm[Hg] Ame Ortiz Other [employer] Other 07-10-2022 12:10-0400 Respiratory rate 18 /min Ame Ortiz Other [employer] Other 07-10-2022 12:10-0400 SaO2% (BldA) [Mass fraction] 98 % Ame Ortiz Other [employer] Other 07-10-2022 12:10-0400 Systolic blood pressure 132 mm[Hg] Ame Ortiz Other [employer] Other 05-24-2022 17:00-0400 Body height 162.56 cm Ame Ortiz Other [employer] Other 05-24-2022 17:00-0400 Body mass index (BMI) [Ratio] 34.67 kg/m2 Ame Ortiz Other [employer] Other 05-24-2022 17:00-0400 Body temperature 98 [degF] Ame Ortiz Other [employer] Other 05-24-2022 17:00-0400 Body weight 91.63 kg Ame Ortiz Other [employer] Other 05-24-2022 17:00-0400 Diastolic blood pressure 70 mm[Hg] Ame Ortiz Other [employer] Other 05-24-2022 17:00-0400 Respiratory rate 18 /min Ame Ortiz Other [employer] Other 05-24-2022 17:00-0400 SaO2% (BldA) [Mass fraction] 99 % Ame Ortiz Other [employer] Other 05-24-2022 17:00-0400 Systolic blood pressure 122 mm[Hg] Ame Ortiz Other [employer] Other 10-02-2021 18:20-0500 Body height 162.56 cm Sera Smallwoodmond Other [employer] Other 10-02-2021 18:20-0500 Body mass index (BMI) [Ratio] 35.01 kg/m2 Sera Smallwoodmond Other [employer] Other 10-02-2021 18:20-0500 Body temperature 98.2 [degF] Sera Smallwoodmond Other [employer] Other 10-02-2021 18:20-0500 Body weight 92.53 kg Sera Smallwoodmond Other [employer] Other 10-02-2021 18:20-0500 Diastolic blood pressure 81 mm[Hg] Sera Luda Other [employer] Other 10-02-2021 18:20-0500 Respiratory rate 18 /min Sera Lares Other [employer] Other 10-02-2021 18:20-0500 SaO2% (BldA) [Mass fraction] 99 % Sera Lares Other [employer] Other 10-02-2021 18:20-0500 Systolic blood pressure 118 mm[Hg] Sera Lares Other [employer] Other 08-22-2021 15:15-0400 Body height 162.56 cm Christiana Ginty Other [employer] Other 08-22-2021 15:15-0400 Body mass index (BMI) [Ratio] 34.33 kg/m2 Christiana Ginty Other [employer] Other 08-22-2021 15:15-0400 Body weight 90.72 kg Christiana Ginty Other [employer] Other Encounters Encounter Date Encounter Type Care Provider Facility Start: 06-04-2024 End: 06-04-2024 ambulatory CHELSEA M ANDREA-NOSSEK Not Available Start: 05-23-2024 End: 05-23-2024 ambulatory ISAAK MCCORD Not Available Start: 05-16-2024 End: 05-16-2024 ambulatory ISAAK MCCORD Not Available Start: 05-11-2024 End: 05-11-2024 ambulatory ISAAK MCCORD Not Available Start: 04-25-2024 End: 04-25-2024 ambulatory CHELSEA M ANDREA-NOSSEK Not Available Start: 04-11-2024 End: 04-11-2024 ambulatory Lester Mcelroy [place] [place]: 04-11-2024 End: 04-11-2024 Lab Drop off Lester Mcelroy [facility] Start: 04-09-2024 End: 04-09-2024 ambulatory Lester Mcelroy [place] [place]: 04-09-2024 End: 04-09-2024 Patient encounter procedure Lester Mcelroy [facility] Start: 04-09-2024 End: 04-09-2024 ambulatory Lester Mcelroy Facility:[facility] Start: 04-09-2024 End: 04-09-2024 Patient encounter procedure Lester Mcelroy [facility] Start: 03-15-2024 End: 03-15-2024 ambulatory LUIS EDUARDO SERRATO Not Available Start: 02-26-2024 End: 02-26-2024 ambulatory TREATMENT COORDINATOR-C Ame [facility] Work Phone: Start: 02-26-2024 End: 02-26-2024 Patient encounter procedure TREATMENT COORDINATOR-C Ame Ort[facility] Work Phone: Start: 02-23-2024 End: 02-23-2024 ambulatory CHELSEA M ANDREA-NOSSEK Not Available Start: 01-26-2024 End: 01-26-2024 ambulatory CHELSEA M ANDREA-NOSSEK Not Available Start: 12-08-2023 End: 12-08-2023 ambulatory Ame Ortiz Facility:[facility] Start: 12-08-2023 End: 12-08-2023 ambulatory TREATMENT COORDINATOR-C Ame [facility] Work Phone: Start: 12-08-2023 End: 12-08-2023 Departed Referred TREATMENT COORDINATOR-C Ame [facility] Start: 11-16-2023 End: 11-16-2023 ambulatory CHELSEA M ANDREAMORGANMANUEL Not Available Start: 10-26-2023 End: 10-26-2023 ambulatory LUIS EDUARDO SERRATO Not Available Start: 10-17-2023 End: 10-17-2023 ambulatory Ml Chisholm Other [employer] Other Start: 10-17-2023 Office outpatient visit 15 minutes Ml Chisholm [facility] Start: 10-17-2023 End: 10-17-2023 Patient encounter procedure TREATMENT COORDINATOR-C Ame Ortiz [facility] Work Phone: Start: 08-10-2023 End: 08-10-2023 ambulatory Sera Lares Other [employer] Other Start: 08-10-2023 Office outpatient visit 15 minutes Sera Lares [facility] Start: 04-16-2023 End: 04-17-2023 ambulatory Ame Ortiz Facility:[facility] Start: 02-02-2023 End: 02-03-2023 ambulatory AME ORTIZ Facility: Start: 01-26-2023 ambulatory AME ORTIZ Facil ity:[facility] Start: 01-17-2023 End: 01-17-2023 Lab Drop off AME ORTIZ [facility] Start: 12-16-2022 End: 12-16-2022 ambulatory Cong Cobian Facility:[facility] Start: 10-31-2022 End: 10-31-2022 ambulatory PHYSICIAN NO [facility] Work Phone: Start: 10-31-2022 End: 10-31-2022 Patient encounter procedure PHYSICIAN NO [facility]-Self [facility] Start: 10-23-2022 End: 10-23-2022 ambulatory FARHEEN CAMACHO . Facility:[facility] Start: 10-13-2022 End: 10-13-2022 Patient encounter procedure PHYSICIAN NO [facility] [place] Work Phone: Start: 10-13-2022 Registered Recurring PHYSICIAN NO NITZA [facility] Work Phone: Start: 10-12-2022 End: 10-12-2022 ambulatory PHYSICIAN NO [facility] Work Phone: Start: 10-12-2022 End: 10-12-2022 Patient encounter procedure PHYSICIAN NO [facility] [place] Start: 10-11-2022 Registered Recurring PHYSICIAN NO NITZA [facility] Start: 10-11-2022 End: 10-11-2022 ambulatory Marleni Jordan Other [employer] Other Start: 10-11-2022 Telephone encounter Marleni [facility] Start: 09-29-2022 End: 09-29-2022 ambulatory Abhi Finney Facility:[facility] Start: 09-15-2022 End: 09-16-[address] DOCTOR LANDEROS Facility: Start: 09-08-2022 End: 09-08-2022 ambulatory Marleni Jordan Other [employer] Other Start: 09-08-2022 Nutrition therapy Marleni Jordan [facility] Start: 09-02-2022 End: 09-02-2022 ambulatory Ame Ortiz Other [employer] Other Start: 09-02-2022 Office outpatient visit 15 minutes Ame Ortiz [facility] Start: 08-02-2022 End: 08-02-2022 ambulatory Debra Celestin Other [employer] Other Start: 08-02-2022 Telephone encounter Debra Celestin [facility] Start: 07-14-2022 End: 07-14-2022 ambulatory Ame Ortiz Facility:[facility] Start: 07-10-2022 End: 07-10-2022 ambulatory Ame Patelault Other [employer] Other Start: 07-10-2022 Office outpatient visit 15 minutes Ame Nik [facility] Start: 07-07-2022 End: 07-08-[address] CONOR BEAL Facility:[facility] Start: 06-26-2022 End: 06-26-2022 ambulatory Ame Patelault Other [employer] Other Start: 06-26-2022 Telephone encounter Ame Brezaydal t [facility] Start: 05-24-2022 End: 05-24-2022 Departed Referred TREATMENT COORDINATOR-C Ame Nik Work Phone: [facility] [place] Start: 05-24-2022 End: 05-24-2022 ambulatory Ame Nik Other [employer] Other Start: 05-24-2022 Office outpatient visit 15 minutes Ame Nik [facility] Start: 05-19-2022 End: 05-19-2022 ambulatory Ame Nik Other [employer] Other Start: 05-19-2022 Telephone encounter Ame Radhal t [facility] Start: 05-11-2022 ambulatory BRITNI GRANT Facilit y:[facility] Start: 12-11-2021 End: 12-11-2021 ambulatory Ame Patelault Other [employer] Other Start: 12-11-2021 Telephone encounter Ame Breaul t [facility] Start: 10-02-2021 End: 10-02-2021 ambulatory Sera Lares Other [employer] Other Start: 10-02-2021 Office outpatient visit 15 minutes Sera Luda [facility] Start: 08-22-2021 End: 08-22-2021 ambulatory Christiana Martel Other [employer] Other Start: 08-22-2021 Office outpatient visit 15 minutes Christiana Samanogracieroel [facility] Start: 11-25-2020 End: 11-25-2020 Patient encounter procedure Kit Reyes ([facility]) -Pre-Surgical Testing Start: 10-27-2020 End: 10-27-2020 Patient encounter procedure Kit Reyes ([facility]) -[place] COVID Testing Start: 09-12-2020 End: 09-12-2020 Departed Referred Kit Reyes ([facility]) -[facility] RT 250 Procedures Date Procedure Procedure Detail Performing Clinician Start: 12-01-2023 ft (qualifier value) Bertram Mcelroy Comment on above: flat foot Start: 10-13-2022 MRI of head PHYSICIAN NO FAMILY Start: 10-27-2020 SARS Antigen (LFIA) Nirmal sydney Reyes ([facility]) Cholecystectomy AME HI Dilation and curettage NAA ORTIZ History of cholecystectomy S/P cholecyste ctomy Lester Mcelroy Nasal sinus structur e (body structure) AME ORTIZ Tonsillectomy AME LEE Urine culture TREATMENT COORDINATOR-C Sil Ortiz Work Phone: wisdom teeth AMEPATRICK WARNER LT Immunizations Immunization Date Immunization Notes Care Provider Nitza kumar 08-04-2022 influenza virus vaccine, unspecified formulation Lester Mcelroy [facility] 07-13-2022 SARS-CoV-2 (COVID-19 ) mRNA-1273 vaccine Lester Mcelroy [facility] 11-22-2021 COVID-19 Vaccine Moderna - Documentation Purposes Only Ame Ortiz Other [facility] 08-13-2020 influenza virus vaccine, unspecified formulation Mohamad Mouchli [facility] 08-07-2020 influenza virus vaccine, unspecified formulation Mohamad Mouchli [facility] 08-09-2019 hepatitis B vaccine, adult dosage Mohamad Mouchli [facility] 08-05-2019 influenza virus vaccine, unspecified formulation Mohamad Mouchli [facility] 03-15-2019 hepatitis B vaccine, adult dosage Mohamad Mouchli [facility] 03-15-2019 varicella virus vaccine Moha mad Mouchli [facility] 02-08-2019 hepatitis B vaccine, adult dosage Mohamad Mouchli [facility] 02-08-2019 tetanus toxoid, redu emmett diphtheria toxoid, and acellular pertussis vaccine, adsorbed Mohamad Mouchli [facility] 02-08-2019 varicella virus vaccine Moha mad Mouchli [facility] 01-07-2019 influenza virus vaccine, unspecified formulation Mohamad Mouchli [facility] Payers Date Payer Category Payer Unknown 2022 Self-pay [id number] 1986 Unknown [id number] 2.16.84 0.1.266389.3.579.2.593 1986 Unknown [id number] 2.16.84 0.1.081097.3.579.2.593 1986 Unknown [id number] 2.16.84 0.1.644300.3.579.2.593 1986 Unknown [id number] 2.16.84 0.1.061626.3.579.2.593 1986 Unknown [id number] 2.16.84 0.1.920610.3.579.2.593 1986 Unknown [id number] 2.16.84 0.1.894809.3.579.2.593 1986 Unknown [id number] 2.16.84 0.1.610289.3.579.2.593 1986 Unknown [id number] 2.16.8 40.1.275182.3.579.2.718 1986 Unknown [id number] 2.16.84 0.1.094322.3.579.2.718 1986 Unknown [id number] 2.16.8 40.1.759679.3.579.2.727 1986 Unknown [id number] 2.16.8 40.1.886857.3.579.2.727 1986 Unknown [id number] 2.16.8 40.1.144381.3.579.2.727 1986 Unknown [id number] 2.16.84 0.1.575034.3.579.2.1259 1986 Unknown [id number] 2.16.84 0.1.267972.3.579.2.1259 1986 Unknown [id number] 2.16.84 0.1.917765.3.579.2.1259 1986 Unknown [id number] 2.16.84 0.1.703500.3.579.2.1259 1986 Unknown [id number] 2.16.84 0.1.318956.3.579.2.1259 1986 Unknown [id number] 2.16.84 0.1.618135.3.579.2.9 1986 Unknown [id number] 2.16.84 0.1.070758.3.579.2.9 1986 Unknown [id number] 2.16.84 0.1.865156.3.579.2.9 1985 Unknown [id number] 2.16.84 0.1.281314.3.579.2.9 1985 Unknown [id number] 2.16.840 .1.038206.3.579.2.1259 1959 Private Health Insurance [id number] Private Health Insurance [id number] 2.16.840.1.944004.19 Unknown [id number] Unknown [id number] Unknown [id number] Social History Date Type Detail Facility Start: 11-25-2020 End: 04-09-2024 Tobacco smoking status NHIS Never smoked tobacco (finding) [facility] Start: 1985 Sex Assigned At Female F [facility] Sex Assigned At [facility] Tobacco smoking status Never [facility] Medical Equipment Procedure Code Equipment Code Equipment Origin al Text Equipment Identifier Dates Test Strips as directed Start: 09-02-2022 Goals Date Patient Goal Desired Activity /State Functional Status Date Assessment Result Facility 04-09-2024 Functional Status N/A [facility] Clinical Notes 08-22-2021 to 04-11-2024 LaboratoryLaboratory Note Date & Type Note Facility 04-11-2024 Evaluation + Plan note Diagnostic Tests PendingCalprotectin, Fecal 04/11/24Enteric Panel by PCR 04/11/24O & P Exam, Routine 04/11/24Pancreatic Elastase, Fecal 04/11/[address] [facility] 04-09-2024 Evaluation + Plan note Future Scheduled TestsPancreatic Elastase, Fecal 04/09/24Calprotectin, Fecal 04/09/24O & P Exam, Routine 04/09/24Clostridium Difficile PCR 04/09/24Enteric Panel by PCR 04/09/24 [facility] 04-09-2024 Evaluation + Plan note Diagnostic Tests PendingCeliac Disease Comprehensive 04/09/24 Future Scheduled TestsPancreatic Elastase, Fecal 04/09/24Calprotectin, Fecal 04/09/24O & P Exam, Routine 04/09/24Clostridium Difficile PCR 04/09/24Enteric Panel by PCR 04/09/[address] [facility] 10-17-2023 Evaluation note Encounter Date Diagnosis Assessment [...] while sleeping. questions and concerns were addressed [facility] 10-11-2023 Evaluation note* Encounter Date Diagnosis [...] no improvement in 2 to 3 days [facility] 03-20-2023 Evaluation + Plan note Diagnostic Tests Pending * FSH and LH 01/17/[address] [facility]02-16-2023 NotePatient Education Materials Follows: Otitis Media, Adult [...] Follow these instructions at home: ? Take [id number] and prescription medicines only as told by [...] provider. Document Revised: 01/25/2022 Document Reviewed: 01/25/2022 indico Patient Education ? 2021 [facility] [id number] Note Patient Education Materials Follows:[facility] [id number] Evaluation note * Encounter Date Diagnosis Assessment [...] medication before and did have stomach upset [facility] 11-03-2022 Evaluation note* Encounter Date Diagnosis Assessment Notes Treatment Notes Treatment Clinical Notes Aug, Dizziness (ICD-10 - R42) Aug, History of reactive hypoglycemia (ICD-10 - Z86.39) Start with keeping journal of symptoms. Take blood sugars when you experience symptoms. [facility] Other 09-10-2022 Evaluation note* Encounter Date Diagnosis Assessment Notes Treatment Notes Treatment Clinical Notes Jul, Intractable migraine without aura and without status migrainosus (ICD-10 - G43.019) Take medication as directed. Stay away from known triggers. Follow up with primary care provider or neurology if symptoms persist. Phenergan and Toradol Im given in office. Explained medication will cause drowsiness. [facility] Other 08-27-2022 Evaluation note* Encounter Date Diagnosis Assessment Notes Treatment Notes Treatment Clinical Notes May, Migraine aura without headache (ICD-10 - G43.109) [facility] 07-25-2022 Evaluation note* Encounter Date Diagnosis [...] (ICD-10 - G43.109) Continue medication as needed [facility] 12-03-2021 Evaluation note* Encounter Date Diagnosis [...] no improvement in 5 to 7 days [facility] Other 10-23-2021 Evaluation note* Encounter Date Diagnosis [...] Patient care instructions given in writting by [facility] Care At Home document [facility] Other Evaluation noteNo InformationNort [employer] Other Evaluation noteNo assessment information available [facility] Work Phone: [facility] Narrative - Reported* Type Description Date Medical History bipolar depression Medical History hx stomach ulcers Medical History migraine headaches Surgical History T&A 1998 Surgical History [place] 2005 Surgical History Keloid Scar from [...] Surgical History hysterectomy Hospitalization History See Above [facility] Other [facility] Narrative - Reported* Type Description Date Medical History bipolar depression Medical History hx stomach ulcers Medical History migraine headaches Medical History IBS Medical History chronic depression Medical History anxiety Medical History Gestational diabetes - yes Medical History PCOS Medical History Esophageal reflux Medical History fatigue Medical History lactose intolerance Medical History obesity Surgical History T&A 1998 Surgical History [place] 2005 Surgical History Keloid Scar from [...] reconstruction 2 021 Hospitalization History See Above [facility] Other [facility] Narrative - Reported* Type Description Date Medical History bipolar depression Medical History hx stomach ulcers Medical History migraine headaches Medical History IBS Medical History chronic depression Medical History anxiety Medical History Gestational diabetes - yes Medical History PCOS Medical History Esophageal reflux Medical History fatigue Medical History lactose intolerance Medical History obesity Surgical History T&A 1998 Surgical History [place] 2005 Surgical History Keloid Scar from [...] reconstruction 2 021 Hospitalization History See Above [facility] Other Hospital course Narrative No data available for this section [facility] No data available for this section [facility] No data available for this section [facility] Advance Directives No Advanced Directives Records Found Advance Directive Response Recorded Date/ Time Advance Directives No April 08 0 6:58am Advance Directive Response Recorded Date/ Time Advance Directives No April 08 0 7:58am Chief Complaint and Reason for Visit Chief [facility] [place] [place] [place] Dysmenorrhea,Dyspareunia,Abnormal Uterine Bleeding Chief [...] Dates Lambert Gavin DO Attending Provider Active Ame Nik , TREATMENT COORDINATOR-C Primary Care Provider Active Team Status: Active Member Role Status Dates PHYSICIAN NO FAMILY Primary Care Provider Active Ame Nik , TREATMENT COORDINATOR-C Attending Provider Active Team Status: Active Member Role Status Dates Ame Patelault , TREATMENT COORDINATOR-C Primary Care Provider Active Team Status: Inactive Member Role Status Dates Ame Nik TREATMENT COORDINATOR-C Primary Care Provider Active Alexis Lincoln MD Attending Provider Active Team Status: Inactive Member Role Status Dates Ame Nik , TREATMENT COORDINATOR-C Primary Care Provider Active Lambert Gavin DO Attending Provider Active Team Status: Inactive Member Role Status Dates Ml Chisholm NP Attending Provider Active Start: October 17, 2023 End: October 17, 2023 Team Status: Inactive Member Role Status Dates Ame Patelault , TREATMENT COORDINATOR-C Primary Care Provider Active Start: December 08, 2023 End: December 08, 2023 Fabienne Guerra DPM MS Attending Provider Active Start: December 08, 2023 End: December 08, 2023 Team Status: Active Member Role Status Dates Ame Nik , TREATMENT COORDINATOR-BC Primary Care Provider Activ e Team Status: Inactive Member Role Status Dates Sera Lares NP-C Attending Provider Active S tart: February 26, 2024 End: February 26, 2024 Ame Patelault , TREATMENT COORDINATOR-BC Primary Care Provider Activ e Start: February 26, 2024 End: February 26, 2024 Goals (unrecognized section and content) Goals may be documented in a n alternate section INFORMATION SOURCE (unrecogn ized section and content) DATE CREATED AUTHOR 02/12/2023 [facility] DATE CREATED AUTHOR AUTHOR'S ORGANIZ ATION 04/20/2023 [facility] DATE CREATED AUTHOR AUTHOR'S ORGANIZ ATION 12/14/2023 [facility] DATE CREATED AUTHOR AUTHOR'S ORGANIZ ATION 04/12/2024 [facility] DATE CREATED AUTHOR AUTHOR'S ORGANIZ ATION 04/13/2024 [facility] DATE CREATED AUTHOR AUTHOR'S ORGANIZ ATION 04/18/2024 [facility] DATE CREATED AUTHOR AUTHOR'S ORGANIZ ATION 04/19/2024 [facility] DATE CREATED AUTHOR AUTHOR'S ORGANIZ ATION 04/21/2024 [facility] DATE CREATED AUTHOR AUTHOR'S ORGANIZ ATION 04/25/2024 [facility] DATE CREATED AUTHOR AUTHOR'S ORGANIZ ATION 06/06/2024 [facility] EPIC FOR RECORDS PERTAINING TO PATIENTS WHO ARE [...] BE BASED ON THE PRIMARY CLINICAL RECORDS. [facility] [employer] provides no warranty or guarantee of the accuracy or completeness of information in this document.
== END 2024-06-14 12:43 | disposition home or self-care (01) ==
LOC: FL 12:43
PROVIDERS: PCP Nurse Practitioner Family; Visit Provider Nurse Practitioner Family
DX: R13.10 Dysphagia, unspecified (principal)
CPT/HCPCS: 74230; 92611

== ENCOUNTER 2024-06-15 18:05 | Emergency (ER) | payer OTHER, SELFPAY ==
[2024-06-15 18:09] VITALS: BP 114/77; PULSE 77; TEMP 36.8; O2SAT 98; BMI 34.1
--- OUTSIDE RECORDS SUMMARY | 2024-06-15 18:19 | XMS_ITS | CCD ---
Author Organization [facility] Care Team Providers Care Etl Application Developer Name Role Phone Eric ([facility])Kit Attending Provider Dewayne James Attending Provider [phone] Ame Ortiz Primary Care Provider Costa Armando Attending Provider Christiana Martel Unavailable Sera Lares Unavailable Ame Ortiz Unavailable KRISTIN Ortiz Attending Provider NO FAMILY, PHYSICIAN Primary Care Provider Unava ilable Debra Celestin Unavailable Marleni Jordan Unavailable NO FAMILY, PHYSICIAN Primary Care Provider Unava ilable KRISTIN Ortiz Attending Provider [phone] DO Lambert Gavin Attending Provider KRISTIN Ortiz Primary Care Provider NO FAMILY, PHYSICIAN Primary Care Provider Unava ilable KRISTIN Ortiz Attending Provider KRISTIN Ortiz Primary Care Provider DO Lambert Gavin Attending Provider [phone] MD Alexis Lincoln Attending Provider CONOR BEAL [...] KRISTIN Ortiz Ame Primary Care Provider [facility] Charlie, GER Mahajan Attending Provider Ame Ortiz Primary Care Unavailable Charlie, Fabienne Mahajan Attending Unavailable Fabienne Guerra Admitting Unavailable KRISTIN Ortiz [facility] Primary Care Provider U [facility], GER Mahajan Attending Provider [phone] AME ORTIZ Primary Care Physician Lester Mcelroy [...] le ANDREA-NOSSEK, CHELSEA M Attending Unavailab le AMALUIS EDUARDO Chavez Attending Unavailable ANDREA-NOSSEK, CHELSEA M Attending Unavailab le MCCORD, ISAAK Attending Unavailable MCCORD, ISAAK Attending Unavailable MCCORD, ISAAK Attending Unavailable ANDREA-NOSSEK, CHELSEA M Attending Unavailab le MCCORD, ISAAK Attending Unavailable Unavailable Unavailable Unavailable Allergies Allergy Classification Reported Allergen(s) Allergy Type Date of Onset Reaction(s) Facility Opioid Agonists (3 sources) Codeine; 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: [codeine] Drug Allergy Unknown (qualifier value) [facility] Povidone-Iodine (3 sources) Povidone-Iodine ; 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: [povidone iodine topical] Drug Allergy Unknown (qualifier value) [facility] (8 sources) Adhesive Tape; 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: [Adhesive tape] Allergy to substance 4 Rash/itching [facility] (6 sources) paper tape Allergy to substance 1 Rash/itching [facility] (19 sources) Codeine; 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: [codeine] Drug Allergy 3 Unknown (qualifier value) [facility] (15 sources) Povidone-Iodine ; 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: [povidone iodine topical] Drug Allergy 3 Unknown (qualifier value) [facility] (13 sources) bandaids Propensity to adverse reactions rash [employer] Other (15 sources) Polyester Propensity to adverse reactions [address] [facility] (6 sources) Povidone-Iodine ; 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: [Betadine] Drug Allergy 2 itchy rash [facility] (6 sources) Adhesive bandage; 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: [Adhesive Bandage] Drug allergy Unknown (qualifier value) [facility] (2 sources) Codeine Drug Allergy 2 [facility] (1 source) Adhesive Tape; 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: [Tape] Propensity to adverse reactions to drug (disorder) [facility] Repository (2 sources) Adhesive agent Allergy to substance 3 [facility] Medications Current Medications Medication Drug Class(es) Dates [...] Ordered Start: 11-25-2020 take 1 capsule by [facility] once daily Cariprazine (Vraylar) 3 mg capsule Active 3 MG PO Daily February 26, 2024 12:00am take 1 capsule by [facility] every twenty-four hours Vraylar 4.5 MG 1 [...] BID, # 540 tab(s), Refills(s) 0, Pharmacy: [facility]/pharmacy #[id number], 162, cm, 04/09/24 13:38:00 EDT, Height/Length [...] 1 tablet Orally Once a day Active Crxfwptgvj-Nlftrxv-Uuwpllfvf in (Folinic-Plus) 4-50-2 mg tablet (6 sources) Start: 11-25-2020 take 1 tablet by mouth once daily Abtpdaqmdl-Mlcrevu-Nqxleafmjib (Folinic-Plus) 4-50-2 mg tablet Active 1 TAB PO Daily November 25, 2020 10:32am Start: 11-25-2020 take 1 tablet by jerri th once daily Gakyzablky-Iaybvrb-Njalqqdzvgq (Folinic- Plus) 4-50-2 mg tablet Active 1 TAB PO Daily November 25, 2020 12:00am Start: 11-25-2020 take 1 tablet by jerri th once daily Rnnivoneld-Snwuhau-Fqitgxphavw (Folinic- Plus) 4-50-2 mg tablet Active 1 [...] 30 gram, Refill(s) 0, [facility] [address] [facility]. Start Date: 06/28/19 Status: Ordered Lincoln-3 (1 source) Start: 04-16-2019 Lincoln-3 Oral, Daily, Refill(s) 0, Prophylaxis Start Date: 04/16/19 Status: Ordered Lincoln-3 Fatty Acids (Fish Oil Concentrate) 1,000 mg Capsule (6 sources) Start: 11-25-2020 take 1 capsule by mouth once daily Lincoln-3 Fatty Acids (Fish Oil Concentrate) 1,000 mg Capsule Active 1000 MG PO Daily November 25, 2020 10:35am Start: 11-25-2020 take 1 capsule by [facility] once daily Lincoln-3 Fatty Acids (Fish Oil Concentrate) 1,000 mg Capsule Active 1000 MG PO Daily November 25, 2020 12:00am Start: 11-25-2020 take 1 capsule by [facility] once daily Lincoln-3 Fatty Acids (Fish Oil Concentrate) 1,000 mg [...] hrs Start: 04-16-2019 take 1 tablet by [facility] once daily rizatriptan 10 mg Dis Tab [...] Drug Class(es) Dates Sig (Normalized) Sig (Original) [id number] 200 actuat albuterol 0.09 mg/actuat metered dose [...] Resolved: 08-22-2021 Episodic Other aftercare (1 source) 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 It is important that you return our call regarding your medication question upon receiving this letter. Also, at the time of your call, please provide us with your current information. Thank you for your prompt attention to this matter. Sincerely, [facility] [phone] [facility] Coding Summary.on 04-21-2024 Coding Summary. NDYKAfov47QOq0dYs+PG h lYWQ+FZ2NTZXhR63iwQPk rC5kJ9JSYIkQErlxTRKTY HqLJiCaukAnZF4ufAJgBC Ju IC8+PC4sAVRmLeprsLBxw 9Q7bOH3I88ues5yNBgntC U8UBOvYmAgxggkm3fvaHe 6IDcuNmluOyBt YXYdeZ91ERO1kF42Zg70v ZHmrVQwk6hdfYl4MsNzPB QaNCI7hHzhBRgql2RfHTS vL85gzRQtq1D1 AOMtmCyqtIVwChVaiJW4l G2pHZnmgadpb6wasiwqNn p9vj43aSVzy3L1yPX9Z6K gzjT6AMHpjUCx CroosRHTkK6oghjni2ypw ldnVlDnZBKmIHj8DAg3IS FjpNxvFrHrYL91SHM9DJH qteXpB4FoMFGu tPckGwU5h7E2Gl8BL3JVC ufhX6DVCNZEYKyiaVI+PC 25sv60T2YtTpthWrv5AQX aUQK8lBM4rZ1j BWAgERbcn6T3bIB4D6Rpq eBhol7dq5ssHVUhTNmgS6 9kpKYvm8R9REYxeQH3OGE atIevSbRbsD60 Oyc+ULVozGzro2BqVszsf 6wbd9tbsCw2AhbrKQFtkf GjpGodWHQ0y8AzKs1tENV xkOU1bLX3iE6g VyRrEhZ4ULtaL817JlSqn TPuFowwP91fH4PfyDQ+PH PwJdv6UIXtgFqqUD1wV6L hZGRpbmctbGVm kVluJE8xABUlnpxqJBSph P3xGHQlH2x8BhPhIpV9BC hfW2ToTUNphicpKt07vC9 kWlWeGlK1EIqp C7QitdC5TQTjnIEsFAetB KE9K83sm7N4WOLePYLmJG T8aLR9oH2xjFqhlxhitTN mdDsgdmVydGlj TLqqRFedE853YTQulImuY kNvZGluZyBEYXRlOiAgMD YvMjIvMjAyNDwvdGQ+PHR jQUI1fAqjWIAz cIJoXAdhJa6wfSobdIjzH S7fXPNcuhepAOTbuL3qUK UpbQPmgDukTP2fTMGpdgm lb999MvIaDAV6 JOKiwBAlF1AamB7vPiKuL RKkJRYjB9LmiPApHDumV0 00CKymXzK7IEPwdvPyR4Z sLWFsaWduOiB0 h7R3Ck6Wi9RdovevO1Rys XTlTjAzVmzkFTv8F5DxJh wvdHI+HE69IYJcFP25OOt 7ZEM2nYqpVUzv QRTsF3YstP4eHnZkRAIvM GRkOyc+PHRhYmxlIHdpZH RoPScxMDAlJyBzdHlsZT0 iEa2jANVgUEAt oTnwmVFxMmAwj0caLHErA MwcOA4sjOxpX2EjsWS4KX Sba6d1Co29P16rK6EgaXQ +KZSnbBQ5iWF2 wU8zPzKeJbN2ZPolL417J zEvnWVkUnula6kjn6vduF x7RnP0GKUljfGtkNotNSX 7f0RtYf80C83b IHdpZHRoPSIxNSUiIHZhb Seqbx5alX1yDs3+PGNvbC L9qSO9xK4xZeSdZvM4YEn gL708RzHckYGz Bqjqe8uvd7ewyAf2GxDvI CEsckGamAlfRWT6r5IhFg 86F7LuqXvux3UtSkt2mb0 8cLJuw5G6sKM4 N9RhZQWyzcojlIKxjCunQ O5uEIOoxgdwSQMgiQ4vRN VvH8p9GfSfWxU2NEsuJ6K fgtE9CHRclHTb DWVywMMWtX5pmbbbe6mwi nvpKzLrWFKeBIr6ESh4KA BgvCtkHyMfUZW5YzM3FPZ 7zKKqnB0wdPea adpnoN8jJpz+RRF2yXInt AOBFT1cWusjjCJ+PHRkIH U8zMhvJKtkGPTygX7vUXR oZ6n2MqOxMfA2 ITxzP9XnzvE9QGOotWMuP UXlwQWPuC2eqrwyg5ullf uzQkUwRFEdQOn3QQm5QTC saWduOiBsZWZ0 OdC3PLX7tXZkeF2wzYcmz ugfoV1gZoh+QmlydGggRG K2KDq2I1WwHql4LAJuuCo yHF4ovZTpQJnh Mm3dhHbhePspPT9xFNWdx vrln406DsGri7ecWGQerL RmSMsoWHD5C41ak6N9VLP mBJKuICQ2kZF8 vJ0ruXoarmzeuKLmyGbhj vXakHitCIuzIWsnD896EI RzxZxxOuRlXOc3J3ZnQfw 6OKKzfAyoIZ7x nDNcGYgyLf2bmMgguAppB R3rWQWkslbsg058FiJsa9 riLFWjnEDsBDxhAMZ8Z47 aa8P0LYHtGGBe GHS4sSE9qK7vvZvndwbvo GVmdDsgdmVydGljYWwtYW bfV698MIUodTvwDxFwoCe 8D9ZsJdd5PJCd jXghPX4yuAZyMBooBh2io AoxtGcdUS2qILCsejjib1 33XaNxj7ppFQVnfJLcFOz zEXR7C07eu3Y6 MWNyVKOsTYB5qZP1gA3tj GlnbjogbGVmdDsgdmVydG bgXQtqZNonJ033SZFhjYe nPlBhdGllbnQg BJshTTt4S8EyLdxyoWH+P J70ZHCuBW92lMFuxNYeg9 lnuMy3QfFoDYFhCFY6oJt zORyau2UfJXBj L18xcBHsv2X8UJCbgYoga NKwFqUtsZD4hD5zGGqvjp paw5jgdllcOwhte5koxi4 5mW04V66uPCkr ZHRoPSIzMCUiIHZhbGlnb d8tpZ3zDi4+VZInwVR4uA L1tQ2zMWVdZvE6LAkbM23 9InRvcCIvPjxj y6rzu2dpwCo0YmM8XIKvr jKeeIpoJNR3x5GhFd88U6 9sIHdpZHRoPSIyMCUiIHZ tmZgwar7utL5n Ii8+QLImnYL6aNW5wU4oB jOmDyT2LXysX037OgPefD TdXupnL03oY7BdlBS+PHR qTgf8SNBbfYnq ZX0oxVNmCMtlYo5lYAF7U zQcWnSuDKlhQ4JvOMXrsn hinoyzyCD7QHPfWOKkiP2 1Co3jgXexWEEc jRWQvS9fzglah9pvgclcU cXbWTTiDMk8UOt3RIVcyD lyDxJwHSM1LoH7XHV9vLY jfV5ixXtdmays yV8tG3DxZKWbxsfhYq80e T0eTsOpMuU3BGvpGsu+GUERRERO 7QBkktJTuSDKCDIA4UMO0 8YE90rGSju3G8 fAJ6Z4HaGMDdylqihjbmh CB4GNFcLUAnrX59wEOvPO bkGl9gp5M8b047PGIrONX qbF30Qc0myRrg ZDNhmCQZnG1diwtjl5iij wvoCgBdATXsHPw3GPe1ET ScyCpvQsJaBIV4KbU0XVK 8qQYxcR1fzEte ndeecZ5qBkw+MDYvMDUvM Nh6YykicHK+ANCqNWY1dT qbBRhiPFLtgO0wPNQiJ4w 4OnEtAkS2VBvf K9PiIMRcanciUv15uI7jD tMzMxO1QDkwP1FysdR9AB OuaUTdHIpjIPD7X61dv9F 8GKSaZCPxSJP8 pLJ2nY8wwHyaddfzmKClq DsgdmVydGljYWwtYWxpZ2 42QAOogCjgQqH7IMgjBOH lSG72XX18xPLz f0F3eRI3H8XbVKKjhmgby lrzcQS9YWGxOVWbpT19qZ LjEAltNl3rw2S2k911PYI gUVOidP65Qv6i jWpgRXBhkVVFnZ1ejumbe 0aiqecgYxWlWAEfPGv0YR f6ZIMshCzzWoDpVTX7NaU 2QYF3pWWscV8t rFgxjaktxF7fBvy+RmVtY MggKN13TG90vSSpv4B6vF M7M9WtTYWhfqnpsrmlnGP 0LRKlMBBhuT08 wGIcBTzdDz9ja1Y3x804K XCnYBLruN48Ij7uiXfyZE YbcTRJdE8beavox5tvbtk gIzAwMDAwMDt0 XEu7BPAmpSpzZiGqEGQ2G lW8IOG3rKVehO0nfNasth mamJ5cFxt+MBQlYFOyu5Z jh9BqTC98JR92 O3BwAdvrvYFneLS+PHRhY mxlIHdpZHRoPScxMDAlJy UksFbqDF9mSk9eGIGlJKS vbGxhcHNlOiBj i0paOOBrSVidQR4uiSuyR 9LkhEK6TWYlg8y8Fg05E4 2gK3SfuRJ+NXNxtLB7gSL 9zD4gQdTqKqM5 HNdgB942DoMenVUoAvrdw 2dsn9yxuMb5AwNkYLAqpd GflAlcFWE7k2IgCm35N14 sIHdpZHRoPSIy YNWwYGGvbJqnhr1bxV0lZ i8+PJKkkHI1pTB2uY7wAd CwDjO5VGtrN416EaKupEG hKuxtS44wX0Hf dXA+KWEbHlx7GDMhpWybF W7skOMfLAuoPi9nZUE5Xl AvNzFhLQqiG0VcFZUqntx pfkbamBQ4SDCu GVDmwK71Lf2moWkeTh4nZ IYeSTE6CWCunBPqQ2YsnY 5rAbKfOYMrRKAfS9RioRZ uUOybI935XKmc DgC5SESbooYkJ9GuJNQzg IgxBpT0v7N1Ru6OlMebyD CuOI4lUbSeZNo2G2LhHcq 5JPJseOefEW5x hGUoXZroEl4raCstePcnA C2fRKZbiqupd906EqTld3 uyXWZdtQTeTSrtXYM9V58 ly6U4GVKlSVIc EKH8dNV3kJ3abTarjaeic GVmdDsgdmVydGljYWwtYW kyN867IVGrpZkgOcAJSyn 0H8GfHhm0NXXi rOvmBS3hgTCbYVzzCg9xi EjzhOiuDV7bYAQttzrej6 18VqLfi1ztZGYrkSIvMHa iVZH8J97cs6S1 GTVtZLGpYMX2dCZ0tX0au GlnbjogbGVmdDsgdmVydG esXBdiALapU112JTOqhTw tBd9LNzv7L1Li Kjk4BORfkAijVW4ljVYnT HkmSn7hnMljxXnmUZ3cIG Fbastux571JaCxb1zwBZU wcHQgVGltZXM7 I39xo4Z8VWHhFKKmPYK9u VR7uE2gmDlgwbgjhNGjwD yovcXbkImsGIwgBYcsJ53 6IHRvcDsnPlBh eWVyOjwvdGQ+NV37jg03D 3BuWyocEtf9TPQmGPJ1kQ Q3pE2fMNCoIPqjd3N4oCJ 4B6NhxsAxqq3w h9hoCTRlJJhqE (more content not included)... Normal [facility] Calprotectin, Fecalon 2023 Calprotectin (Stl) [Mass/Mass] 29 mcg/gm Invalid Interpretation Code 0-120 [facility] Comment on above: Result Comment: Conc entration Interpretation Follow-Up < 5 - 50 ug/g Normal None >50 -120 ug/g Borderline Re-evaluate in 4-6 weeks >120 ug/g Abnormal Repeat as clinically indicated Performed at: [address] [id number] MD Parmjit Connor Performed By: #### 1 [id number] #### [facility] [address] [place] [id number] O & P EXAM, ROUTINE, REFLEXo n 04-17-2024 Ova and parasites identified Concentration Nom (Stl) Comment Invalid Interpretation Code [facility] Comment on above: Result Comment: No o va, cysts, or parasites seen. One negative specimen does not rule out the possibility of a parasitic infection. Performed at: [address] [id number] PhD Pancho Higgins Performed By: #### 3 [id number] #### [facility] [address] [place] [address] O & P Exam, Routineon 2023 Ova and parasites identified LM Nom (Unsp spec) Final report Invalid Interpretation Code [facility] Comment on above: Result Comment: Thes e results were obtained using wet preparation(s) and trichrome stained smear. This test does not include testing for Cryptosporidium parvum, Cyclospora, or Microsporidia. Performed at: [address] [id number] PhD Pancho Higgins Performed By: #### 1 [id number] #### [facility] [address] [place] [address] Pancreatic Elastase, Fecalon 04-17-2024 Elastase.pancreatic (Stl) [Mass/Mass] >800 Invalid Interpretation Code >200 [facility] Comment on above: Result Comment: Florecita re Pancreatic Insufficiency: <100 Moderate Pancreatic Insufficiency: 100 - 200 Normal: >200 Performed at: [address] [id number] MD Parmjit Connor Performed By: #### 1 [id number] #### [facility] [address] [place] [address] Enteric Panel by PCRon 04-12 C. coli+jejuni+upsalien sis DNA MARYELLEN+non-probe Ql (Stl) Not detected Normal [facility] Comment on above: Result Comment: Test ing was performed utilizing reverse sculpture conservator (RT), polymerase chain reaction (PCR), and array [...] nulcleic acid test. Performed By: #### 1 [id number] #### [facility] [address] [place] [address] E. coli stx1+stx2 genes MARYELLEN+non-probe Ql (Stl) Negative Normal [facility] Comment on above: Performed By: #### 1 [id number] #### [facility] [address] [place] [address] Enteric Panel by PCR Negative Normal [facility] Enteric Panel Intrl QC Pass Normal [facility] Comment on above: Result Comment: Test ing was performed utilizing reverse sculpture conservator (RT), polymerase chain reaction (PCR), and array [...] 1 and 2. Performed By: #### 1 [id number] #### [facility] [address] [place] [address] Norovirus genogroup I+II RNA MARYELLEN+non-probe Ql (Stl) Not detected Normal [facility] Comment on above: Performed By: #### 1 [id number] #### [facility] [address] [place] [address] Rotavirus A RNA MARYELLEN+non-probe Ql (Stl) Not detected Normal [facility] Comment on above: Performed By: #### 1 [id number] #### [facility] [address] [place] [address] S. enterica+bongori DNA MARYELLEN+non-probe Ql (Stl) Not detected Normal [facility] Comment on above: Result Comment: This test result should be correlated with clinical presentations and medical history by a healthcare provider to determine its clinical significance. Performed By: #### 1 [id number] #### [facility] [address] [place] [address] Shigella species+EIEC invasion plasmid antigen H ipaH gene MARYELLEN+non-probe Ql (Stl) Not detected Normal [facility] Comment on above: Performed By: #### 1 [id number] #### [facility] [address] [place] [address] V. cholerae+parahaemoly ticus+vulnificus DNA MARYELLEN+non-probe Ql (Stl) Not detected Normal [facility] Comment on above: Performed By: #### 1 [id number] #### [facility] [address] [place] [address] Y. enterocolitica DNA MARYELLEN+non-probe Ql (Stl) Not detected Normal [facility] Comment on above: Performed By: #### 1 [id number] #### [facility] [address] [place] [address] CDiff PCRon 04-11-2024 C. difficile toxin A+B Ql (Stl) YES Normal [facility] Comment on above: Performed By: #### 3 [id number] #### [facility] [address] [place] [address] CDiff PCR Unable to perform test due to consistency of stool. C. Difficile testing will only be performed on diarrheal (unformed) stool unless ileus due to C. difficile is expected. Reference: Clinical Practice Guidelines for Clostridium difficile Infection in Adults, Infection and Hospital Epidemiology February 2010, Vol 31, No 5. Normal [facility] Celiac Disease Comprehensive on 04-11-2024 Endomysium IgA Ql (S) Negative Invalid Interpretation Code Negative [facility] Comment on above: Performed By: #### 1 [id number] #### [facility] [address] [place] [address] Gliadin peptide IgA Qn (S) 7 unit(s) Invalid Interpretation Code 0-19 [facility] Comment on above: Result Comment: Nega tive 0 - 19 Weak Positive 20 - 30 Moderate to Strong Positive >30 Performed By: #### 1 [id number] #### [facility] [address] [place] [address] Gliadin peptide IgG Qn (S) 2 unit(s) Invalid Interpretation Code 0-19 [facility] Comment on above: Result Comment: Nega tive 0 - 19 Weak Positive 20 - 30 Moderate to Strong Positive >30 Performed By: #### 1 [id number] #### [facility] [address] [place] [address] IgA [Mass/Vol] 286 mg/dL Invalid Interpretation Code 87-352 [facility] Comment on above: Result Comment: Perf ormed at: [facility] [address] [id number] PhD Pancho Higgins Performed By: #### 1 [id number] #### [facility] [address] [place] [address] tTG IgA Qn (S) <2 Invalid Interpretation Code 0-3 [facility] Comment on above: Result Comment: Nega tive 0 - 3 Weak Positive 4 - 10 Positive >10 Tissue Transglutaminase (tTG) has been identified as the endomysial antigen. Studies have demonstr- ated that endomysial IgA antibodies have over 99% specificity for gluten sensitive enteropathy. Performed By: #### 1 [id number] #### [facility] [address] [place] [address] tTG IgG Qn (S) <2 Invalid Interpretation Code 0-5 [facility] Comment on above: Result Comment: Nega tive 0 - 5 Weak Positive 6 - 9 Positive >9 Performed By: #### 1 [id number] #### [facility] [address] [place] [address] Ambulatory Visit Summaryon 0 04-09-2024 Ambulatory Visit Summary NOBLE CASTILLO :1985 Visit Date:04/09/2024 Ambulatory Visit Instructions Your Diagnosis Chronic diarrhea S/P cholecystectomy Chronic GERD Lower abdominal pain Gastric erosion Your Care Team Attending Physician - Navi MACK, Lestre Godoy Primary Care Physician - CONOR BEAL [...] Chronic diarrhea Invalid Interpretation Code Chronic GERD [facility] CHEMISTRYOrdered By: SYSTEM SYSTEM on 04-09-2024 CRP [Mass/Vol] 1.3 mg/dL Normal <=1.9mg/dL Remisol Ch em TSH Qn 3.27 m[IU]/L Normal 0.34 - 5.60 mcIU/mL Remisol Chem CRPon 04-09-2024 CRP [Mass/Vol] 1.3 mg/dL Normal <=1.9 [facility] Comment on above: Performed By: #### 2 [id number] #### [facility] [address] [place] [address] Consent for Treatmenton 03-31 Consent for Treatment [id number] Normal [facility] Gastroenterology Office/Clin ic Noteon 04-09-2024 Gastroenterology Office/Clinic Note Chief Complaint ibs w constipation and diarrhea GERD HPI Staff Patient is a 39 year old female who was referred by Floresita Ortzi CNP for IBS w/ constipation & diarrhea. [...] BID, # 540 tab(s), Refills(s) 0, Pharmacy: [facility]/pharmacy #[id number], 162, cm, 04/09/24 13:38:00 EDT, Height/Length [...] Alcohol Use, (more content not included)... Normal [facility] Comment on above: Result Comment: Elec tronically Signed By: Navi MACK, Lester Godoy\.br\Date and Time Signed: 04/09/24 14:24 EDT Angel 12-08-2023 L Specimen: [id number] Received: 12/09/23 Status: TANA Jara Num: [id number] Spec Type: Surgical Subm Dr: Fabienne Guerra DPM, MS Tissues: A Tendon/Sheath (RT POST TIBIAL TEND) Procedures: HE, Gross/Micro L3 Age/ Patient Sex Location Account Attending Physician Noble Castillo 38/F [facility] [id number] Fabienne Guerra DPM, MS SPEC NUM: [id number] RECD: 12/09/23 STATUS: TANA JARA NUM: [id number] SHEREE: 12/08/[address]: Fabienne Guerra DPM, MS ENTERED: 12/09/23 [facility] DR: Gregory,Lab SPEC TYPE: Surgical DEPT: JEANNIE [...] in one cassette labeled A1. CPT Codes 82854 -------- -------- Specimen: [id number] Received: 12/09/23 Status: TANA Marek Num: [id number] Spec Type: Surgical Subm Dr: Fabienne Guerra,DPQuintin, MS Tissues: A Tendon/Sheath (RT POST TIBIAL TEND) Procedures: Slade JASSO/Latesha L3 -------- Patient: Noble Castillo [id number] (Continued) -------- Signed (signature on file) Toney Chandra MD 12/12/23 2258 [facility] Nicotine Metabolite, Urine L Con 04-19-2023 Cotinine LC Negative Invalid Interpretation Code [id number] [facility] Comment on above: Result Comment: Perf ormed At: [facility] [place] [address] [place], [place] [id number] Mark Puentes PhD Ph:[phone] Performed By: #### 1 [id number] ####[facility] (DEFAULT)[address] [place] [address] Lab - Toxicology Resultson 0 04-18-2023 Lab - Toxicology Results [id number]. 00OTGTIFF Normal [facility] CT ANKLE RT WO CONon [...] technique. FINDINGS: BONES: Joint space narrowing with zdpf-xk-zuqh articulation involving the medial aspect of the talocalcaneal joint. SOFT TISSUES: Negative. No visible soft tissue swelling. EFFUSION: None visible. OTHER: Negative. IMPRESSION: 1. Pes planus. 2. Mhxx-gq-vknx articulation between the articular surfaces of the medial talocalcaneal joint. 3. Uniform, normal spacing of the tibiotalar joint. Electronically authenticated by: RAFAEL COATS Date: 2023-02-02 09:25 Normal [facility] CHEMISTRYOrdered By: SYSTEM SYSTEM on 01-17-2023 [...] 1.0 E9/L Normal 0.2 - 1.0 E9/L [facility] Neutrophils/100 WBC (Bld) 67.8 % Normal 36.0 - 75.0 % [facility] Neutrophils/Leukocyt es Auto (Bld) [Pure # fraction] 10.0 E9/L High 2.0 - 7.5 E9/L [facility] HEMATOLOGYOrdered By: Jojo Mueller on 01-17-2023 Erythrocyte distribution width (RBC) [Ratio] 13.8 % Normal 10.9 - 14.2 % [facility] Hematocrit (Bld) [Volume fraction] 46.0 % Normal 34.0 - 46.0 % [facility] Hemoglobin (Bld) [Mass/Vol] 14.9 g/dL Normal 12.0 - 16.0 gm/dL [facility] MCH (RBC) [Entitic mass] 28.1 pg Normal 27.0 - 34.0 pg [facility] MCHC (RBC) [Mass/Vol] 32.4 g/dL Normal 31.4 - 36.0 gm/dL [facility] MCV (RBC) [Entitic vol] 86.6 fL Normal 80.0 - 100.0 fL [facility] Platelet mean volume (Bld) [Entitic vol] 9.5 fL Normal 6.4 - 10.8 fL [facility] Platelets (Bld) [#/Vol] 298.0 E9/L Normal 150.0 - 500.0 E9/L [facility] RBC (Bld) [#/Vol] 5.3 E12/L Normal 4.3 - 5.9 E12/L [facility] WBC corrected for nucl RBC Auto (Bld) [#/Vol] 14.8 E9/L High 4.0 - 11.0 E9/L [facility] Coding Summaryon 12-21-2022 Coding Summary HTMLBase 64 UkuoxkoxFLz7fFk+PGhlY WQ+QE1GDCVaU38ymHYnzK 7FU5gPGS5YZWCWGQUJZL5 MHV4tyFT9RYoiW8QppiTs AdywpBMpBB23XQo3IFO7f CizJPflpD4jpENwX6e2Gm IiTM59hO22RWhsYUGhIgG 3LjZpbjsgbWFy N6jtTdXiwPYeLbf+PHRhY mxlIHdpZHRoPScxMDAlJy UxpZenQN0cOe4yKVWwHKL vbGxhcHNlOiBj t4zyNDOyKJczGX3dpDwwX 3UhqKT8LZAhr1j4Yl29pL I+YYBwEIL5lSzmBXlqb44 1AoWmz1ppUJI8 kIThSAlyCJL0C13qa3Y2K WVfHDRdIXO1pSA8lS3dpQ pogbncK1GzaBQbClG7FIF 4fZIfuF4cgQbo tgxkbV2bOha+D12YNA8SX RHWBC6QNvb9W3NmAglruV I+MM72JAPmKK79uUNwiUW er5nhqVt7NcNw LEQaKYC3vGpzTSqud1BvP VExQ70moGEiw9H9ZPCicH ejyYOcApOzeQV1bF5mQGm spuhap3yhdoql Jzzni2sdgl73mJ28F67zB PukFEEvYPK7ZCOvJULkzK dxxd7adL9iTp1+SRrol3g ep3udyTx9FsJs FLXebqQsnIrjEUO4m2QbN q43Z8YqvHxln6HmCxm5yp 79lITra6L5uCA0JHhaZLS kwW5xBIxkIgR5 QHMxMaArrP40rALgIAnzV w9aeCjkzSeyAI2bFNCqzf rrQZZnuQ1oIUZxqHHfoZb zAB9rOEUredaq v306EhOxQDR6DYSizOFrY 6KemT1oLcEqPYDpQXOuV9 ChaVFvQAtkO768MKasGyD 7LXEtrgFrZ7Rq KHHaoHdoGkW0w9N6Mf5Aj 8IzqsygPAH6BCocYPZmQz EiAlLuVkG0L2IaJvk5QGH xlAgbII8wD4Ag RVQepcaqrhogiRQ5KDRlC SEtcL52dPRcJUdvNv0mv2 M7i293SULpFWSpfH01Rk7 udDogMTBwdCBU xT6ugyxbw4rqlyczGnGxP EXzNBf6YFy8GNSsuWxaLl DaUVV8IqK8GMX2gMEbzX0 spJwcszyllJ9b Oyc+W11alD8sBJM9NSE8q lpdRAOtnmEiKK50FG70Z5 RyPjwvdGFibGU+PGRpdiB yfRinQQ9pSuSz o4tve8YcRMhbG4PjJYVzB EpbSyn9LPPaWLJ9bGX6tB 1wJOZqBBmaa4I7nTA4M9T iqqTuid0po8wx DTBxAMroB51xjPQao6T3L WVaqGO6OLNepMmrVpIitC 93Oyc+JKVawIuoh6IvDet ff6zmh3pjaOh0 DtJrRCOstaAqqVnnAGN3p 6ZiRy97I94lHDucOPRqKV DlJYMiDKOtvTavuh4ghW1 wIi8+PGNvbCB3 sAV2tX6mZJZwZmW5QDmrT 429HoGhjCJuJvesv3hge8 jmmGo0HmYiUJIzkdEpgDb vVPX2u2AyXr67 E91oYJxlLDHvZBQuVGXoC ZVygEwcuz5zqN9oZb8+PC 5pt8fkrp22gI37yPE+PHR oGHB6sWcrTXar IRAfqW1hJDmeGaX1VSXnW aDdbU92cZTtUPqsYj7beW pnqLxtMH1cLSCtgsvgw05 8SgNto2wfTHTt zGOoZQncDHQ6C21ff0V2E AQgNHBzHYI3bYH6iS3zzT lnbjogbGVmdDsgdmVydGl xFFeiDVrnI327 IHRvcDsnPlBhdGllbnQgT vRcBNp1J8VeVwj6VHVozU zbLG2bgSDvQZndHv2woWg rtRsaFF2rABFx pnlqh496QnQjc2rqXZAxz STiMHlqSMH6X36xb1A4HW CnJGHkNYC2mDG5lU0pnLf nbjogbGVmdDsg ktNbpTtmORqvVGowU751K HRvcDsnPkJpcnRoIERhdG Y2LL06LU74nFDfn9E5pZM 6Z2UcWSCbiksy cryqmLQ3XXEfNHKioQ33G i4mmDbjNi2mDUUwUIG8LU KtpNBcG3QdfA7rUdCjACS dVPFfZ9MpgBTw MLxnQ645JLdiFoO0HVMmi iSgE6IjTNDoyXekYhW7z0 U0Fg1TA3U5YZ23VF78uPB po0Z7wYG8U1Fb YHQbklxfyuowtKU9MJOtS UWxqV67Na9otQbgUo3zZR VrZER7YTEajLHoS1MklZ9 yOiAjMDAwMDAw O4ScmHAiWOogL799PIvnJ mE2HUTjetYmK5KcNYBufD orLiW2x0I3Kx5IKRm5MV4 9WP77oMTye7E8 lSV4K0MqDRXfadgrqxzwl UF5IPKnRFTfaA36Qt5fuY yaVf8yJAMuBST7TVGixMF sG3RlkR1jVcWu AAUdPOHhQ1PblWSiEDatS 113YLldNzW7RJDgliTaZ1 AaABNgvRoxGzV1e9S9Aa7 OYSLfPD90AZJ4 bIE0AX66QK00Y2VyZwili GFibGU+PHRhYmxlIHdpZH RoPScxMDAlJyBzdHlsZT0 xQn9tHPMiYUZl bIvvxIWhZiJzr4fgSZDwS IczID7bsEnkH4TjhAT9WY Hiq3a6Fr86T91kW6NepVB +XIUusQG6tAE3 yL9fQuIiDmI2XWevO352R iCfoDQhTxnfx6lvx8bhlQ o2CvB4CWAmmyGrwCssJND 5k0MiGi69T41i IHdpZHRoPSIxNSUiIHZhb Neokt4tyD1eIf5+PGNvbC B0cSF8uQ1rMwXdSeV7QIq jB954FlDjgPVi Xirgj7dpp3kddWt6AkVrT PIevgNklScuSZN9j5CtVu 23G9OanRkxi1LzKbj1mi3 8mFAlx7T5aZM7 B2JzUMGnbwcomMAwkAmhB W8iLSSshuhuODIuoD2hKL OjB7o2AqQbNgM7NUogN2S unxM4CHDouDWv EZznDIT5I78gc7G8POEdF CYvXAM0fAY3aX4jbYkwec ogbGVmdDsgdmVydGljYWw bTWajC986RLGx vXadMKOmqL0mDLYjdGWbn WspVU9vPUBxwyhwQnrWCE 5HLCBLUklTVElOQSBFTEF WQsU8O6SuBrp0 FMIryAqoGD3aeRWzLOayA s8cgWltjAzoFC1kCKLceh htAXHzqP8iMSSfrKEwsPw rPN7gHGMtqwzm x514EkHpPSJ2NOKxeWSbL 3NtlZ6xToPbNCZsLSLgR9 WnjMHoDCizZ433WGnmYxG 9ONCoftPcV2Jf OYXkrEdwTmQ9l2O4Xu5dA r9cMH9uJTi0XI91GZ36fG Utv5G6iYP0A7PcIXBvmdg ybmwklKJ0HJFw HSRohR33iLVlWAzgSm7wu 5L1o364UPRuQSPbbQ87Nk 2glRzxOQPdqEYLmU1ptft sn0ppprlpUgRj TWAcRAc5AMz0DXMyqEtoG vQkNYH2AoV6SUU2jFHqfK 8mvXtdwfmuxO9jJxy+MzY cDLBcvsN0R5Qj Xes7EMBaeAeyUA0twVVhD VtaNy8doVlxvIqyUH6tAU IcrxoxXOCunG3eNQMocAL crIqwCI1wSZCe dhpdb971HzFuAFM2OACcn GLfL0OfzC9xTmDsKDBgJF XgQ7NatVHpCCpxD376MRp mMaE8NAMvffMg R9WoOUZjiXksFzY3o0X4D h2NGN3QTPH1Z9KgKby2PT DuvJihWH8ywJOsPZheCu3 emKzfmGtxLN9o UXMfcqarTLNgbY2lGMJfj ATyaLyyHC3pDSFmkyxep3 07YqIwOST1VASllAPoB2V okJ6nSkGcYDEj LTNhQ8TtjGHbQUwlR359W UfaXlI0SZYehqLkG9JgMU OleUavHuC9l1B3Gz6BHAu vdGQ+FE41yr51 O7BpTdszWjw8SWLaIZH8t IM5cF4ySALqVMndg4I1eS M1G1VutmKmco6vg0ifCVF kVPfuO58dlSId p9X1WOSxrUD3YSBljJxhS eZpvR10Vtv+PGNvbGdyb3 HcDedkw8jdf1vklJy2UyS wJSIgdmFsaWdu RJP2c3TtRb91F87oOViuG HRoPSIzMCUiIHZhbGlnbj 5tcA6zZe2+TVXfmZH5xIM 2cZ7xKrXcKqW1 DPgeG254XpYixFOyBalfw 0jsq0xtzCr2DbTzXQRjgc JyeEltCTR0d7TtMc72H8B euWakb2OyOqk3 sq68mEZjr0V1pAW7O8BnU CTxaysecZPdyPmvMG8kQS TsvsbqDHPzkY3xDFNoG2h 1JyNbZxC8DWwu V5EcakA7VAOanOGbZFDnu SVUvH5sifztq7qsbwdqQi QqEGMcXCz7ZUs4CQUicGd qXqHmALA8HwJ9 MPX6dPKirV1mbPgwkfplj G9wOyc+UUe9k6kotDCzKJ 5cuZD2AJ70IK95jJMai8R 8gWS0W4XbBIVl zlrrjabncQF4QWEvCLSmt I97Jg3emOnhWv1eAVQkGP Z9LUZryJPqG3AfiF3vZcW wBAQoTTItH3Tc lJUlRIxvK121XEkmKdW9B PBumeRhJ1RhKEDdkCxlJt S7o9N4Fs9HVJ65TC10HB1 1yBZft6I4kUG8 V1TsLJTocskmikdbvZM1T YLgWYQycO42Nf3fcGocVr 2kNYEzTMC9FSLzjJPdZ1K gtR2nWhMcXWHa NKHaC7NcuEZnTQroE808M GhnDaV3GFUjtrVeC8VkIT PwiLqaMwT1o3K1Ct5XXc6 9XZ77OG71nOPt n3S4jZW3P1HlXXUmosehz wykhBV9AOBaBIQvfD02Zg 0pxOuqQa4nVMYrYEP0IJC zqURaH8ArmF7q FxFqEJRxATEpL4ZjsQRnA PgxD976FCdeLfU6SNYsfi JaB6HsXTZidZtfAdT5j7X 0Hx2OGJsogbb0 E6SeDbeizIV+GX70DRHrN M23wKOirQTou1ygaSu0Xt HbMVOeREF3qAmfJTqac5C eIYDsS39edFXv c2U (more content not included)... [facility] ED Clinical Summaryon 2022 ED Clinical Summary [facility] ? Urgent Care [address] [place] [id number] Clinical Summary PERSON INFORMATION Name: NOBLE CASTILLO Age: 37 Years Sex: FEMALE : 1985 MRN: Acct#: Visit Reason: UC - Sinus Pain or Congestion; UC - Ear Pain; LT EAR PAIN Arrival: 12/16/2022 11:36:50 Discharge: 12/16/2022 12:00:00 LOS: 000 00:24 Check In: 12/16/2022 11:36:50 Checkout: 12/16/2022 12:00:00 Address: [address] [place] [address] PCP: Ame Ortiz CNP PROVIDER INFORMATION Provider Role Assigned Unassigned Sandra Dinh SPECIAL SYSTEMS TECHNICIAN Nurse 12/16/2022 11:39:08 Cong Cobian PA-C ED PA 12/16/2022 11:41:06 VITALS INFORMATION Vital Sign Triage Latest Temperature Tympanic Temperature Temporal Artery Pulse Rate O2 Sat 98 % 98 % Respiratory Rate Blood Pressure /78 mmHg /78 mmHg MEDICAL INFORMATION Medications Given: Allergy Information: Tape; Betadine; codeine PHYSICIAN DOCUMENTATION DISCHARGE INFORMATION: Discharge Disposition: Home Discharge Location: Home PATIENT EDUCATION INFORMATION Instructions: Otitis Media, Adult, [id number]-[id number] Follow-Up: With: Address: When: Ame Ortiz [address] [place] [address] Business (1) Within 1 week Comments: Please follow-up with , call the office schedule an appointment to be seen in a week or sooner for continued care, taking amoxicillin as prescribed, take [id number]-[id number] ibuprofen Tylenol as needed for pain and fever, drink plenty water stay hydrated, and return back to the urgent care center for any worsening symptoms, concerns, or complications. DIAGNOSIS: 1:Left otitis media Patient Understands: Yes - Patient/family/caregi regina verbalizes understanding of instructions given Comment: [facility] ED Patient Summaryon 023 ED Patient Summary [facility] ? Urgent Care [address] [place] [address] PATIENT DISCHARGE INSTRUCTIONS Patient Information Name: NOBLE CASTILLO Age: 37 Years Date of : 1985 [facility]: [id number] Reason For Visit: UC - Sinus Pain or Congestion; UC - Ear Pain; LT EAR PAIN Arrival Time: 12/16/2022 11:36:50 Primary Care Physician: Ame Ortiz CNP Attending Physician: Cong Cobian PA-C Comment: Patient Education With: Address: When: Ame Ortiz [address] [place] [address] [email or web address] Within 1 week Comments: Please follow-up with , call the office schedule an appointment to be seen in a week or sooner for continued care, taking amoxicillin as prescribed, take krqz-qgh-nzgpdtt ibuprofen Tylenol as needed for pain and [...] Follow these instructions at home: ? Take jbvk-xkm-mwjdcyi and prescription medicines only as told by [...] provider. Document Revised: 01/25/2022 Document Reviewed: 01/25/2022 [employer] Patient Education ? 2021 [employer] Medication Information: The exam and treatment you received today in the [facility] Emergency Department were for an urgent problem and are not intended as complete care. It is important for you to follow up with a doctor, nurse practitioner, or physician?s equity sales assistant for ongoing care. If your symptoms [...] Radiologist will (more content not included)... Normal [facility] 023 Urgent Care Record [facility] ? Urgent Care [address] [place] [address] PATIENT DISCHARGE INSTRUCTIONS Patient Information Name: NOBLE CASTILLO Age: 37 Years Date of : 1985 Reason For Visit: UC - Sinus Pain or Congestion; UC - Ear Pain; LT EAR PAIN Arrival Time: 12/16/2022 11:36:50 Primary Care Physician: Ame Ortiz CNP Attending Physician: Cong Cobian PA-C Comment: Visit Diagnosis: Diagnoses This Visit Left otitis media (H66.92) UC - Ear Pain ([id number]) UC - Sinus Pain or Congestion ([id number]) If you received any narcotics, sedation, or [...] documents With: Address: When: Ame Ortiz [address] [place] [address] Business (1) Within 1 week Comments: Please follow-up with , call the office schedule an appointment to be seen in a week or sooner for continued care, taking amoxicillin as prescribed, take txvg-lnm-mshdyhb ibuprofen Tylenol as needed for pain and fever, drink plenty water stay hydrated, and return back to the urgent care center for any worsening symptoms, concerns, or complications. Medication Information: The exam and treatment you received today in the [facility] Urgent Care were for an urgent problem and are not intended as complete care. It is important for you to follow up with a doctor, nurse practitioner, or physician?s equity sales assistant for ongoing care. If your symptoms [...] so we can reach you if necessary. [facility] has provided you with a complete list of medications post discharge. Please inform your plastics plater/provider of your visit and for further instruction on these medications. Any specific questions regarding your chronic medications and dosages should be discussed with your primary care physician(s) and/or pharmacist. New Medications [id number], [address] [place] [id number], [phone] amoxicillin (amoxicillin 500 mg oral capsule) 1 [...] 1 capsule by mouth once daily. rizatriptan ([employer]DATA CENTER ENGINEER 10 mg oral tablet, disintegrating) 1 tab(s) [...] The condition (more content not included)... Normal [facility] ER URINE PROFILEon 2 Bilirubin Ql (U) Negative Normal NEGATIVE [facility] Comment on above: Performed By: #### E RUR #### [facility] [address] [place] [address] Dr. Phong Thayer Clarity (U) CLEAR Normal CLEAR [facility] Comment on above: Performed By: #### E RUR #### [facility] [address] [place] [address] Dr. Phong Thayer Color (U) LT. YELLOW Normal YELLOW [facility] Comment on above: Performed By: #### E RUR #### [facility] [address] [place] [address] Dr. Phong MONTILLA A micrscopic examination will be performed if indicated. Normal [facility] Comment on above: Performed By: #### E RUR #### [facility] [address] [place] [address] Dr. Phong Thayer Glucose Ql (U) Negative Normal NEGATIVE [facility] Comment on above: Performed By: #### E RUR #### [facility] [address] [place] [address] Dr. Phong Thayer Hemoglobin Ql (U) Negative Normal NEGATIVE [facility] Comment on above: Performed By: #### E RUR #### [facility] [address] [place] [address] Dr. Phong Thayer Ketones Ql (U) Negative Normal NEGATIVE [facility] Comment on above: Performed By: #### E RUR #### [facility] [address] [place] [address] Dr. Phong Thayer LEUKOCYTES Negative Normal NEGATIVE [facility] Comment on above: Performed By: #### E RUR #### [facility] [address] [place] [address] Dr. Phong Thayer Nitrite Ql (U) Negative Normal NEGATIVE [facility] Comment on above: Performed By: #### E RUR #### [facility] [address] [place] [address] Dr. Phong Thayer pH (U) 6.5 [pH] Normal 5-9 [facility] Comment on above: Performed By: #### E RUR #### [facility] [address] [place] [address] Dr. Phong Thayer SPEC GRAVITY 1.015 Normal 1.005-<=1.02 5 [facility] Comment on above: Performed By: #### E RUR #### [facility] [address] [place] [address] Dr. Phong Thayer UA PROTEIN Negative Normal NEGATIVE/ TRACE [facility] Comment on above: Performed By: #### E RUR #### [facility] [address] [place] [address] Dr. Phong Thayer UR MICRO IND NOT INDICATED Normal [facility] Comment on above: Performed By: #### E RUR #### [facility] [address] [place] [address] Dr. Phong Thayer Urobilinogen Qn (U) 0.2 {Gilma'U}/dL Normal 0.2 - 1. 0 [facility] Comment on above: Performed By: #### E RUR #### [facility] [address] [place] [address] Dr. Phong Thayer XR LSPINE 2_3 VIEWSon [...] by: DONALD CANNON Date: 2022-10-23 16:28 Normal [facility] Coding Summaryon 10-01-2022 Coding Summary HTMLBase 64 XllmlpsqMPa5yOx+PGhlY WQ+JC9OBFWqG70apOMtwS 9TY3tWTN3MLLYMTEMFFC0 HPQ2xzIN4RTdaS2KfkmBu MglwrFDyUM14BVn9KHA3s HzxXOjbfA3mmOQtV6n1Vo KbAF42lP47DOsiNXYpBcT 3LjZpbjsgbWFy D4mcLlBacZPcRbp+PHRhY mxlIHdpZHRoPScxMDAlJy NdnNbrGS5uMc1dFKSaKPU vbGxhcHNlOiBj s3ysOQAzQOomTA0hyYyrO 0FkfEG8UAYbk2u7Dp03iV I+SVNgQTQ6aIetHDvsa97 9CnZva7uxIZG0 sLXfLHwxWOI2B47sf1G1J UBmZAPyMIL1lWY6pC4tdD kejfmjJ7CpeKVvGwR0JJD 1iCOupM0ndXwp iisznZ7nVyk+X98OOY0NT ZOTJR0AZgc8W8EmEbhamK I+OY45KJRuVX34tYEknCV ei3sfwEi3QzHm ICIxYHM3iWbfUEsoz0ScY ZXvP06sfDPqa4R4MJImwV scyWVdHaAblOM0cL9cEGc bhvopo5ezerxi Fvjle1rlph91rT08N38tJ QtsGRPjOJT2OMYeYHKynD nyac4mhH4nYd5+RTchw7t lu6fabFy8IePj UFWsftYipNzuFZZ2i4OlS c30E5RbhTcdp4XkPsg7js 28jRCtt3A7oPR5YYohVTN zqN6kBMolLwP9 ZSGzGoZwhS86fCNdWAmsN f9udGdrwYoxSY3oJYPiub bmKPAbuV1pMRPriVPaaNc jEE9jXONxsuxb f078NrNxGZK1NQWmiKNoD 8WnnU9kLnMxWWPoXLIgX3 KnhCRxPVlrZ693BTtpPjG 8JWRokmAgQ1Uo FTGaxWayXvQ6a9W9Zs8Zr 9HirzudTOZ4YJisUYJqNn UxMgSiDiY6Y8PjQfe1XND pwAfvYS8aX5Gv SNLufukhwvijpWR2VJWhP UNvgA13yPIkREvgKa6gz2 F4l302YESpQXKhlQ55Bn5 udDogMTBwdCBU vF0tqdmko4bxjnhhGrPqI QNiMKr2ERl7OSQbtGowZi HwHGX1WaW1FCY8oSMzuK4 kgNngcmmuaB2w Oyc+V09eeW4wAGO0CJV8o efwHEKmbgViQR70MF54O9 RyPjwvdGFibGU+PGRpdiB kqOxoYW9bZdHe i1mha8CiQDdyN6QyPQQyQ AwnMsd0TDIsAUY1cPW2fS 1dXIDzFYyrp8A3aWA3V8T mmeQnqt6dp3pu ECDhEQsuR57ekDKyn2J6J CMfaKW5WFPkzFshZnXuxZ 93Oyc+JAUexVvps6TwRqp nd3fmo4gngRd5 RwBkOYCurcZgxIwrSDP8h 1XaFm95N96uRZlyXNCmEK WaQWLvSFCvfIdnww5glM3 wIi8+PGNvbCB3 yBY6zM3vBAHbEcR1XOtiR 184GdPxjSTeLckyt8sbe5 ienVc6AcOtLVXtdaVqyTt zPCW6u0RkCu10 A49sCBqyKRZoFLMfHTRpP BDxlHtaud3tpH8bFb6+PC 2qq8wxwm19hC42vWR+PHR kYWT2sCmgQQwe QTNntD8rTXtlHgJ5BTHbR jUzrF54aFMpHIwaQw9etK yqjMehZD3rPWVnemtqv22 3HmPwa2zfMVYy bIAjPJagQWN1A15tk4S4Q BHbBFStQNV8dLS4uI4fwV lnbjogbGVmdDsgdmVydGl rPQfiBJqdH545 IHRvcDsnPlBhdGllbnQgT xGaFKt4O4IfQlf4GNHyxM dlXI9xzCHfKFziDe9fgAh uxFkrQQ8yBXCk ijhxq179NfPul7nuXXNur EFeRTsuBKM2I53ep7D5TM PrEDWuNPP9gMM8lA0jdOo nbjogbGVmdDsg kdEqpHazEElwFVcdD779I HRvcDsnPkJpcnRoIERhdG Z4IA76MQ58zBRtu8A0tPW 8Z9KjQEHxtjzq encwxHW0XBGsMGNzzG04E l9lcVmeLi6nDOAhETI3SC GehXDaO7UucU5sOlKxNQI qTERyT5YdtQZl KGrwA187KWnlRdC2JQYpl gReU7WdOPSxuNyrOnT9o1 I2Zh1XL2X2FQ68ZT27wGQ en3Q6rJP4D4Wd MIYqphsbguzksBI6DYCzY HDnyN83Sj8goYbrJk2jFP VvAIL8TSLjvHUvP5IigL2 yOiAjMDAwMDAw S2SreESyKZvnR230JXukT dL1GDCgdeHqK7GePSGanZ yiVqR2u3F1Cj4KZIk0US9 0RZ80nBYlt7Q0 eIG2D5EkPVXovpdttwawq QR5YGVrJQZqnG96Ut1qeI pkPe9iUYAgOSM3NWDrnVM eZ8PhvQ2zKnFx OWNbAFDvH8DtoYNiTLegJ 930SHaxJmN2JAAavoSlT5 PzDMXmbIajNvN4z3P1Nw5 KMWPpDS01TKY6 bXT3XI67OR87Q7YvVwvmb GFibGU+PHRhYmxlIHdpZH RoPScxMDAlJyBzdHlsZT0 aZc9bOYQgKGUt yQrlqARvChKld8hhXNWjO VytDS1vqCflU6ZrdYX9TL Zzi6l3Lg72H58gU8BhrOY +OUCumZA0fPC3 pB0kJvJzThK2ZFztR542J yKcbMUdVqssq7qml0btcU q4CvE3PGIsbcQedVqiEGU 4m4XvOd91W68d IHdpZHRoPSIxNSUiIHZhb Gjvic9oaS9nTj2+PGNvbC P6rVA7wC8qZfFmNoC3QAx eI963AvAuuICt Pehlz6lgg4gfjKk9OkJxH NLvrhArvZtlNXD7p3IcOg 85N6BwaFlzp6JvWsp3uz0 0gAZxd4Y3cZA7 Z3GxEUMhtlskpUHgkUuzD X9tECLoxtagKWBjrS3eTN JdG3f0PnFkXnE1PMnbT8S plpN4AXAuvVVj MWkhZPR6J52uv2N8XYNvP JJeRHU2aQR7nU3stLorqe ogbGVmdDsgdmVydGljYWw lYWeoZ635DUOf rBmnGFEkqF9wQOIhgBPob NujZB8xYOAlsfojOhvIUV 5HLCBLUklTVElOQSBFTEF OQxT6S5McCqe6 KEXspMpeUM8hsNKtXKbsO h5cuAancCmjDR6hWEKjrj ggPCLhvQ5qPSSpcNObkUr nDE6tJMWtphwd n010JgNoPKP7YPHadDVzK 2NmgE0aJrAmMURhZIYgP2 GwiOHqCAigR154XQjhUzJ 8LKKgnpSvE5Se XLBzbEivVzK0k1T0Ng2pZ z3yNH0vCFb8TU31GX91wI Qqp9R7yEJ7A0RlQFZadhj ipkbepFA1RDJo KJUluR17jCAsWDqnGl7rp 3I6w431MTUsMHCjqP31Ii 9xfWxsJAVutEVAyR0oxai wj8zjxeghIzJz DSWjFBc4UYn3NBUqgLybA jRbPTD2TsF2TBG4dMShvM 6niHrhucxccH0nEyt+MzY iLSYrllM7J3Yt Syl8DHGfnMdwJK2huRSbV GxfLz2pgOiavJtlAI6eDZ KnwfdfRWCkoU5gMIGbvWT ptLnhXK4tSUXe acime872MeFwZAS3EESda DSwH6GodQ2sZdXzEXXmCY GvF0CcgCQhHUlmE295EGy yWlY8VXAqkzNx G3BoKPCjdQpqDeK2i5M7B m6PJQ9ACNN2D0KbRme3VF IkyDkxWY5aeVWfXUyaAl1 mbMtgrPvbCN5e XWOjuowsWPLmdN7qAOCtv NWvhZnbON3gXYZbhfdlg4 41JzScGZH6PRNzqKKmR8E ebT9xRaAuFPQb KUTnD0AkcAEjQJfmS630H BzfDwC2NCMvahAyA3NvNO OhrDztAuI6r9D5Uy7FBNy vdGQ+NS47cq17 C2XtSmbkDpm9TSQoJKW3j BY5uY0lVUBeOZejr8O4jC P6X0MoztRazb0cb8emMEA bHKciV53etJRh m4R6WSKjsDH8XYZjoRwfR eCszV32Est+PGNvbGdyb3 YmOyfyn3mty4igfTo1LgE wJSIgdmFsaWdu YTB6q5MqZx37C72aRYoqJ HRoPSIzMCUiIHZhbGlnbj 7qwZ3hAa2+OQQcdRR0uBO 6lL4wLtXrJlC2 JJviY892FwAhrPJvTlqap 3zpl1qqkTk7TzOiYXKygt XhyQfbRIZ4d7AgDi12X3C ysIidb6HsHku7 pm75nCJtm2H5mXG7W3AoZ FToqyvjpVTcqFkqHH7eZP XhicieXQQeeO6mCNWeT5u 5FwVpEeT9JOrg U1EaotS4BOMuwPHfJSCop MGRdT2zenhzu0dxuhdwAm EnCKEwTIo8ERb6ZVJknZd lFmLmYNF9KbE9 VDG0gOClmR4xjRswarqzi G9wOyc+XZj4n6mheBDzCY 0mrYQ9BV07SM15jWCsx2E 8hQI8R9HnOHWr iwbvhhikcBE5HDZhEKNtl M94Li8cxXsqMf0gFKAkVJ X3JMRerALaG7XgnZ7xVbB yHJTzWAPpT2Nq xSYrOOhqW090EUcdGkY6K OPspiGbL6JuFWCdiYkwCs V4u6V7La2OON29XE28LQ9 4aCIzo1E4jZB8 V7XeDAIiknajjcdurCO2J KEaOAHnrG46Pv5iyTbdZh 0wTNPdWZI9HAWnfMLjK9Z avB9qRhTnRZUs NBIpT8IyvTFzYEkaN700I NcnCbQ6MIKtqxDwJ8IlUC WivDvsIuJ5w2M6Jc0HWf2 0MK86ED69qVZl s5U9qTP9B5HhZQCaaopwn gpwvKU2EYOlRAAzpO80Ab 3wwQwgGw4fWWAzDTS2YXV alWKmV3LtwL8h AgXrPDQfRJHwY6QjlKTjW CvmP037GXlnIcI4ARVqnq IeN9JiJJWehUasBtQ4k9F 3Mm6EFFjysir0 H0DhSuxmlBV+WS59CEZdE N54hTYirTZga4hnuVw0Dl CgQNIiSVJ1zFmbPNvcw0C dMNTgK27rxVAb c2U (more content not included)... [facility] Outside Recordson 09-30-2022 Outside Records [id number]. 00OTGTIFF [facility] ED Clinical Summaryon 2021 ED Clinical Summary [facility] ? Urgent Care [address] [place], [place] [id number] Clinical Summary PERSON INFORMATION Name: NOBLE CASTILLO Age: 37 Years Sex: FEMALE : 1985 MRN: Acct#: Visit Reason: Medical screening exam; [employer] Arrival: 09/29/2022 10:32:28 Discharge: 09/29/2022 11:15:00 LOS: 000 00:43 Check In: 09/29/2022 10:32:28 Checkout: 09/29/2022 11:15:00 Address: [address] [place] [id number] PCP: Ame Ortiz CNP PROVIDER INFORMATION Provider [...] verbalizes understanding of instructions given Comment: Normal [facility] ED Patient Summaryon 022 ED Patient Summary [facility] ? Urgent Care [address] [place] [address] PATIENT DISCHARGE INSTRUCTIONS Patient Information Name: NOBLE CASTILLO Age: 37 Years Date of : 1985 Reason For Visit: Medical screening exam; [employer]ULT [employer] Arrival Time: 09/29/2022 10:32:28 Primary Care Physician: Ame Ortiz CNP Attending Physician: Abhi Finney PA-C Comment: Patient Education Medication Information: The exam and treatment you received today in the [facility] Emergency Department were for an urgent problem and are not intended as complete care. It is important for you to follow up with a doctor, nurse practitioner, or physician?s equity sales assistant for ongoing care. If your symptoms [...] so we can reach you if necessary. [facility] Emergency Department has provided you with a complete list of medications post discharge. Please inform your plastics plater/provider of your visit and for further instruction [...] capsule) 1 cap(s) Oral every day. rizatriptan (Maxalt-DATA CENTER ENGINEER 10 mg oral tablet, disintegrating) 1 tab(s) [...] Diagnosis: Diagnoses This Visit Medical screening exam ([id number]) If you received any narcotics, sedation, or [...] the Ans (more content not included)... Normal [facility] Urgent Care Note- Provideron 09-29-2022 [...] tab(s), PO, Daily, 28 tab(s), 0 Refill(s) Maxalt-DATA CENTER ENGINEER 10 mg oral tablet, disintegratin mg = [...] selected or recorded.. Surgical history: Diagnostic laparoscopy ([id number]) on 07/24/2019 at 34 Years. Tonsillectomy and adenoidectomy ([id number]). Lump ([id number]). Comments: 07/16/2019 11:30 Arabella Day RN left axilla Cholecystectomy ([id number]). 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 Comments: 07/16/2019 11:31 Arabella Day RN left ear Foot ([id number]). Comments: 07/16/2019 11:32 Arabella Day RN titanium implant left ankle Dilatation and curettage ([id number]). Tooth extraction, multiple ([id number]). Comments: 07/16/2019 11:33 Arabella Day RN wisdom Sinus ([id number]). Comments: 07/16/2019 11:33 Arabella Day RN x2 Colonoscopy ([id number]). Esophagogastroduodeno scopy ([id number]).. Family history: No family history items have [...] 09/29/2022 11:09 EST] Abhi Finney PA-C Normal [facility] Care [place] 022 Urgent Care Record [facility] ? Urgent Care [address] [place] [address] PATIENT DISCHARGE INSTRUCTIONS Patient Information Name: NOBLE CASTILLO Age: 37 Years Date of : 1985 Reason For Visit: Medical screening exam; [employer] Arrival Time: 09/29/2022 10:32:28 Primary Care Physician: Ame Ortiz CNP Attending Physician: Abhi Fniney PA-C Comment: Visit Diagnosis: Diagnoses This Visit Medical screening exam ([id number]) If you received any narcotics, sedation, or [...] and treatment you received today in the [facility] Urgent Care were for an urgent problem and are not intended as complete care. It is important for you to follow up with a doctor, nurse practitioner, or physician?s equity sales assistant for ongoing care. If your symptoms [...] so we can reach you if necessary. [facility] has provided you with a complete list of medications post discharge. Please inform your plastics plater/provider of your visit and for further instruction [...] capsule) 1 cap(s) Oral every day. rizatriptan (Maxalt-DATA CENTER ENGINEER 10 mg oral tablet, disintegrating) 1 tab(s) [...] Disease Control and Prevention July 2014 Normal [facility] T3, TOTAL (TRIIODOTHYRONINE) on 09-16-2022 T3, TOTAL 132 ng/dL Normal 71-180 [facility] Comment on above: Performed By: #### T 3TOTAL ####[facility] [id number] [place], [place] [address]ExDr. Phong Thayer CBC AUTO DIFFon 09-15-2022 BASO # 0.0 103/ul Normal 0.0-0.1 [facility] Comment on above: Performed By: #### C BC #### [facility] [address] [address] [address] Phong Thayer Basophils/100 WBC (Bld) 0.3 % Normal 0.2-2.0 [facility] Comment on above: Performed By: #### C BC #### [facility] [address] [address] [address] Phong Thayer EO # 0.1 103/ul Normal 0.0-0.7 [facility] Comment on above: Performed By: #### C BC #### [facility] [address] [address] [address] Phong Thayer Eosinophils/100 WBC (Bld) 0.8 % Critically low 0.9-7.0 [facility] Comment on above: Performed By: #### C BC #### [facility] [address] [address] [address] Phong Thayer Erythrocyte distribution width (RBC) [Ratio] 12.5 % Normal 11.0-15.0 [facility] Comment on above: Performed By: #### C BC #### [facility] [address] [address] [address] Phong Thayer Hematocrit (Bld) [Volume fraction] 42.2 % Normal 36.0-48.0 [facility] Comment on above: Performed By: #### C BC #### [facility] [address] [place] [address] Dr. Phong Thayer Hemoglobin (Bld) [Mass/Vol] 14.3 g/dL Normal 12.0-16.0 [facility] Comment on above: Performed By: #### C BC #### [facility] [address] [place] [address] Dr. Phong Thayer IG # 0.01 10e3/ul Normal 0.00-0.03 [facility] Comment on above: Performed By: #### C BC #### [facility] [address] [place] [address] Dr. Phong Thayer IG % 0.1 % Normal 0.0-0.5 [facility] Comment on above: Performed By: #### C BC #### [facility] [address] [place] [address] Dr. Phong Thayer LYMPH # 2.5 103/ul Normal 1.2-3.8 [facility] Comment on above: Performed By: #### C BC #### [facility] [address] [place] [address] Dr. Phong Thayer Lymphocytes/100 WBC (Bld) 33.7 % Normal 20.5-60.0 [facility] Comment on above: Performed By: #### C BC #### [facility] [address] [place] [address] Dr. Phong Thayer MANUAL DIFF REQ NO Normal [facility] Comment on above: Performed By: #### C BC #### [facility] [address] [place] [address] Dr. Phong Thayer MCH (RBC) [Entitic mass] 29.1 pg Normal 26.7-34.0 [facility] Comment on above: Performed By: #### C BC #### [facility] [address] [place] [address] Dr. Phong Thayer MCHC (RBC) [Mass/Vol] 33.9 g/dL Normal 29.9-35.2 [facility] Comment on above: Performed By: #### C BC #### [facility] [address] [address] [address] Phong Thayer MCV (RBC) [Entitic vol] 85.9 fL Normal 81.0-99.0 [facility] Comment on above: Performed By: #### C BC #### [facility] [address] [address] [address] Phong Thayer MONO # 0.4 103/ul Normal 0.3-0.8 [facility] Comment on above: Performed By: #### C BC #### [facility] [address] [place] [address] Dr. Phong Thayer Monocytes/100 WBC (Bld) 5.3 % Normal 1.7-12.0 [facility] Comment on above: Performed By: #### C BC #### [facility] [address] [place] [address] Dr. Phong Thayer NEUT # 4.5 103/ul Normal 1.4-6.5 [facility] Comment on above: Performed By: #### C BC #### [facility] [address] [place] [address] Dr. Phong Thayer Neutrophils/100 WBC (Bld) 59.8 % Normal 43.0-75.0 [facility] Comment on above: Performed By: #### C BC #### [facility] [address] [place] [address] Dr. Phong Thayer Platelet mean volume (Bld) [Entitic vol] 10.2 fL Normal 9.5-13.5 [facility] Comment on above: Performed By: #### C BC #### [facility] [address] [place] [address] Dr. Phong Thayer PLT 227 103/ul Normal 150-450 [facility] Comment on above: Performed By: #### C BC #### [facility] [address] [place] [address] Dr. Phong Thayer RBC 4.91 106/ul Normal 4.20-5.40 [facility] Comment on above: Performed By: #### C BC #### [facility] [address] [place] [address] Dr. Phong Thayer WBC 7.5 103/ul Normal 4.0-11.0 [facility] Comment on above: Performed By: #### C BC #### [facility] [address] [address] [address] Phong Thayer FREE THYROXINE INDEX T7on FTI 2.37 Normal 1.30-4.50 [facility] Comment on above: Performed By: #### T SH, T4, T7, CMP #### [facility] [address] [address] [address] Phong Thayer T3U 32.0 % Normal 30.0-39.0 [facility] Comment on above: Performed By: #### T SH, T4, T7, CMP #### [facility] [address] [address] [address] Phong Thayer LIPID PROFILEon 09-15-2022 CHOL-HDL RATIO NORM SEE BELOW Normal [facility] Comment on above: Result Comment: 3.3 - 4.4 LOW RISK 4.4 - 7.1 AVERAGE RISK 7.1 - 11.0 MODERATE RISK >11.0 HIGH RISK Performed By: #### L IPID ####[facility] [address] [address]DrAnnalee Thayer Cholesterol [Mass/Vol] 163 mg/dL Normal <=200 [facility] Comment on above: Performed By: #### L IPID ####[facility] [address] [id number] Thayer Cholesterol in HDL [Mass/Vol] 57 mg/dL Normal 40-60 [facility] Comment on above: Performed By: #### L IPID ####[facility] [address] [id number] Thayer Cholesterol in LDL [Mass/Vol] 69.8 mg/dL Normal [facility] Comment on above: Performed By: #### L IPID ####[facility] [address] [id number] Thayer Cholesterol.total/Ch olesterol in HDL [Mass ratio] 2.9 {ratio} Normal [facility] Comment on above: Performed By: #### L IPID ####[facility] [address] [address]Dr. Phong Thayer HDL NORMAL > or = 60 mg/dl - LO W CARDIOVASCULAR RISK <40 mg/dl - HIGH CARDIOVASCULAR RISK Normal [facility] Comment on above: Performed By: #### L IPID ####[facility] [address] [address]Dr. Phong Thayer LDL CALC NORMAL SEE BELOW Normal [facility] Comment on above: Result Comment: <100 mg/dl OPTIMAL 100 - 129 mg/dl NEAR OR ABOVE OPTIMAL 130 - 159 mg/dl BORDERLINE HIGH 160 - 189 mg/dl HIGH >190 mg/dl VERY HIGH Performed By: #### L IPID ####[facility] [address] [address]DrAnnalee Thayer Triglyceride [Mass/Vol] 181 mg/dL Critically high <=150 [facility] Comment on above: Performed By: #### L IPID ####[facility] [address] [address]DrAnnalee Thayer VLDL CALC 36.2 mg/dL Normal [facility] Comment on above: Performed By: #### L IPID ####[facility] [address] [address]DrAnnalee Thayer PROF 14(COMP METB)on 022 Albumin [Mass/Vol] 3.6 g/dL Normal 3.4-5.0 [facility] Comment on above: Performed By: #### T SH, T4, T7, CMP #### [facility] [address] [address] [address] Phong Thayer Albumin/Globulin [Mass ratio] 1.0 {ratio} Normal [facility] Comment on above: Performed By: #### T SH, T4, T7, CMP #### [facility] [address] [address] [address] Phong Thayer ALP [Catalytic activity/Vol] 90 U/L Normal 46-116 [facility] Comment on above: Performed By: #### T SH, T4, T7, CMP #### [facility] [address] [place] [address] Dr. Phong Thayer ALT [Catalytic activity/Vol] 27 U/L Normal 14-59 [facility] Comment on above: Performed By: #### T SH, T4, T7, CMP #### [facility] [address] [place] [address] Dr. Phong Thayer Anion gap [Moles/Vol] 14.2 mmol/L Normal [facility] Comment on above: Performed By: #### T SH, T4, T7, CMP #### [facility] [address] [place] [address] Dr. Phong Thayer AST [Catalytic activity/Vol] 13 U/L Critically low 15-37 [facility] Comment on above: Performed By: #### T SH, T4, T7, CMP #### [facility] [address] [place] [address] Dr. Phong Thayer Bilirubin [Mass/Vol] 0.2 mg/dL Normal 0.2-1.0 [facility] Comment on above: Performed By: #### T SH, T4, T7, CMP #### [facility] [address] [place] [address] Dr. Phong Thayer Calcium [Mass/Vol] 9.0 mg/dL Normal 8.5-10.1 [facility] Comment on above: Performed By: #### T SH, T4, T7, CMP #### [facility] [address] [place] [address] Dr. Phong Thayer Chloride [Moles/Vol] 103 mmol/L Normal 98-107 [facility] Comment on above: Performed By: #### T SH, T4, T7, CMP #### [facility] [address] [place] [address] Dr. Phong Thayer CO2 [Moles/Vol] 23.9 mmol/L Normal 21.0-32.0 [facility] Comment on above: Performed By: #### T SH, T4, T7, CMP #### [facility] [address] [place] [address] Dr. Phong Thayer Creatinine [Mass/Vol] 0.76 mg/dL Normal 0.55-1.02 [facility] Comment on above: Performed By: #### T SH, T4, T7, CMP #### [facility] [address] [address] [address] Phong Thayer EGFR-AF BARBADIAN >60 Normal >=60 [facility] Comment on above: Performed By: #### T SH, T4, T7, CMP #### [facility] [address] [address] [address] Phong Thayer EGFR-NON AF BARBADIAN >60 Normal >=60 [facility] Comment on above: Performed By: #### T SH, T4, T7, CMP #### [facility] [address] [place] [address] Dr. Phong Thayer Globulin (S) [Mass/Vol] 3.6 g/dL Normal [facility] Comment on above: Performed By: #### T SH, T4, T7, CMP #### [facility] [address] [place] [address] Dr. Phong Thayer Glucose [Mass/Vol] 95 mg/dL Normal 74-106 [facility] Comment on above: Performed By: #### T SH, T4, T7, CMP #### [facility] [address] [place] [address] Dr. Phong Thayer Potassium [Moles/Vol] 4.1 mmol/L Normal 3.5-5.1 [facility] Comment on above: Performed By: #### T SH, T4, T7, CMP #### [facility] [address] [place] [address] Dr. Phong Thayer Protein [Mass/Vol] 7.2 g/dL Normal 6.4-8.2 [facility] Comment on above: Performed By: #### T SH, T4, T7, CMP #### [facility] [address] [place] [address] Dr. Phong Thayer Sodium [Moles/Vol] 137 mmol/L Normal 136-145 [facility] Comment on above: Performed By: #### T SH, T4, T7, CMP #### [facility] [address] [address] [address] Phong Thayer Urea nitrogen [Mass/Vol] 13.0 mg/dL Normal 7.0-18.0 [facility] Comment on above: Performed By: #### T SH, T4, T7, CMP #### [facility] [address] [address] [address] Phong Thayer Urea nitrogen/Creatinine [Mass ratio] 17.1 mg/mg Normal [facility] Comment on above: Performed By: #### T SH, T4, T7, CMP #### [facility] [address] [address] [address] Phong Thayer T4on 09-15-2022 T4 [Mass/Vol] 7.40 ug/dL Normal 4.80-13.90 [facility] Comment on above: Performed By: #### T SH, T4, T7, CMP #### [facility] [address] [address] [address] Phong Thayer TSHon 09-15-2022 TSH 2.515 uIU/mL Normal 0.358-3.740 [facility] Comment on above: Performed By: #### T SH, T4, T7, CMP #### [facility] [address] [address] [address] Phong Thayer VITAMIN B12on 09-15-2022 Cobalamin (Vitamin B12) [Mass/Vol] 423.0 pg/mL Normal 193.0-986.0 [facility] Comment on above: Performed By: #### V GERALD VITB12 ####[facility] [address] [id number]. Phong Thayer VITAMIN D 25 OHon 09-15-2022 VIT D 25-OH 28.3 ng/mL Normal [facility] Comment on above: Performed By: #### V ITCLAIRE, VITB12 ####[facility] [address] [id number]. Phong Thayer VIT D RANGES SEE BELOW Normal [facility] Comment on above: Result Comment: <20 ng/mL Vit D deficient 20 - <30 ng/mL Vit D insufficient 30 - 100 ng/mL Vit D sufficient >100 ng/mL Potential Toxicity Performed By: #### V ITAD, VITB12 ####[facility] [address] [place], [place] [address]AqAnnalee Thayer A1C HEMOGLOBINon 09-02-2022 HbA1c (Bld) [Mass fraction] 5.1 % ncyclo [facility] [employer] Other HbA1c (Bld) [Mass fraction]o n 09-02-2022 A1C HEMOGLOBIN [facility] [employer] Other Lab - Reference Lab Resultso n 07-19-2022 Lab - Reference Lab Results [id number]#[id number] 0OTGTIFF [facility] T-Spoton 07-16-2022 T-Spot See Report [facility] Comment on above: Performed By: #### 5 [id number], [id number] ####[facility] (DEFAULT)[address] [place] [address] HBSab Qnt LCon 07-14-2022 Hep B Surf Ab Quant LC 301.3 mIU/mL Invalid Interpretation Code Immunity>9.9 [facility] Comment on above: Result Comment: Stat us of Immunity Anti-HBs Level Inconsistent with Immunity 0.0 - 9.9 Consistent with Immunity >9.9 Performed At: [facility] [address] [id number] Pancho Higgins PhD Ph:[phone] Performed By: #### 5 [id number], [id number], [id number] ####[facility] (DEFAULT)[address] [place] [address] Lab - Toxicology Resultson 0 07-14-2022 Lab - Toxicology Results [id number]#[id number] 0OTGTIFF [facility] Measles/Mumps/Rubella Immuni ty LCon 09-14-2022 Mumps Abs, IgG LC 38.4 AU/mL Invalid Interpretation Code Immune >10.9 [facility] Comment on above: Result Comment: Nega tive <9.0 Equivocal 9.0 - 10.9 Positive >10.9 A positive result generally indicates past exposure to Mumps virus or previous vaccination. Performed At: [facility] [id number] Pancho Higgins PhD Ph:[phone] Performed By: #### 5 [id number], [id number], [id number] ####[facility] (DEFAULT)[address] [place] [address] Rubella Antibodies, IgG LC 5.78 index Invalid Interpretation Code Immune >0.99 [facility] Comment on above: Result Comment: Non- immune <0.90 Equivocal 0.90 - 0.99 Immune >0.99 Performed By: #### 5 [id number], [id number], [id number] ####[facility] (DEFAULT)[address] [place] [address] Rubeola Ab, IgG, EIA LC 72.4 AU/mL Invalid Interpretation Code Immune >16.4 [facility] Comment on above: Result Comment: Nega tive <13.5 Equivocal 13.5 - 16.4 Positive >16.4 Presence of antibodies to Rubeola is presumptive evidence of immunity except when acute infection is suspected. Performed By: #### 5 [id number], [id number], [id number] ####[facility] (DEFAULT)[address] [place] [address] Nicotine Metabolite, Urine L Con 07-14-2022 Cotinine LC Negative Invalid Interpretation Code [id number] [facility] Comment on above: Result Comment: Perf ormed At: [facility] [place] [address] [place], [place] [id number] Mark Puentes PhD Ph:[phone] Performed By: #### 1 [id number] ####[facility] (DEFAULT)[address] [place] [address] XR FOOT AIDA MIN 3 VIEWSon XR [...] by: RAFAEL COATS Date: 2022-07-07 13:58 Normal [facility] Urine culture routineOrdered By: AME ORTIZ on 05-27-2022 Bacteria identified Cx Nom (U) Staphylococcus saprophyticus [facility] Urinalysis - AUTOMATEDon Appearance (U) clear [employer] Other Bilirubin Ql (U) Negative [employer] Other Color (U) lt. yellow [employer] Other Glucose Ql (U) Negative [employer] Other Hemoglobin Ql (U) moderate [employer] Other Ketones Ql (U) Negative [employer] Other Leukocyte esterase Test strip Ql (U) small [employer] Other Nitrite Ql (U) Negative [employer] Other pH (U) 6.0 [pH] [employer] Other Protein Ql (U) Negative [employer] Other Specific gravity (U) [Rel density] 1.010 [employer] Other Urobilinogen (U) [Mass/Vol] 0.2 mg/dL [employer] Other Urinalysis - AUTOMATED [employer] Other Urine Cultureon 05-24-2022 Bacteria identified Cx Nom (U) [employer] Other XR hand LT min 3V*on 021 XR hand LT min 3V* [facility] [employer] Other XR hand LT min 3V* [facility] [employer] Other XR hand LT min 3V* [address] [place] [address] [employer] Other XR hand LT min 3V* [place] [address] [employer] Other XR hand LT min 3V* XRay Report [employer] Other XR hand LT min 3V* Signed [employer] Other XR hand LT min 3V* Patient: Noble Castillo MR#: [id number] [employer] Other XR hand LT min 3V* 7804 [employer] Other XR hand LT min 3V* : 1985 Acct:[id number] [employer] Other XR hand LT min 3V* Age/Sex: 36 / F ADM Date: 10/02/21 [employer] Other XR hand LT min 3V* Loc: XDUCLY Room: Type: REG CLI [employer] Other XR hand LT min 3V* Attending Dr: Sera ALFORD [employer] Other XR hand LT min 3V* Ordering Provider: JOVITA JordanC [employer] Other XR hand LT min 3V* Date of Service: 10/02/21 [employer] Other XR hand LT min 3V* XR/XR hand LT min 3V*: Finger pain, left [employer] Other XR hand LT min 3V* Copies to: PRASHANTH Jordan [employer] Other XR hand LT min 3V* 3 viewsLEFT hand plain film [employer] Other XR hand LT min 3V* COMPARISON:None N [facility] [email or web address] Other XR hand LT min 3V* HISTORY:LEFT hand injury [employer] Other XR hand LT min 3V* No fracture, dislocation or focal soft tissue abnormality seen. [employer] Other XR hand LT min 3V* XR/XR hand LT min 3V* [employer] Other XR hand LT min 3V* IMPRESSION:No acute findings [employer] Other XR hand LT min 3V* Impression dictated by: Fuad Swain M.D.10/02/2021 6:01 PM [employer] Other XR hand LT min 3V* Dictation Location: [facility]--03 [employer] Other XR hand LT min 3V* Transcribed By: NUZHAT 10/02/21 [facility] [employer] Other XR hand LT min 3V* Dictated By: Fuad Swain DO 10/02/21 [facility] [employer] Other XR hand LT min 3V* Signed By: [employer] Other XR hand LT min 3V* 10/02/21 [facility] [email or web address] Other Automated basophil %on 11-25 Basophils/100 WBC (Bld) 1.0 % [facility] Automated basophil counton 0 11-25-2020 Basophils (Bld) [#/Vol] 0.1 10*3/uL 0.0-0.2 [facility] Automated blood lymphocyte c ount (number/volume)on 11-25-2020 Lymphocytes (Bld) [#/Vol] 2.2 10*3/uL 1.00-4.8 [facility] Automated blood lymphocyte c ount as percentage of total leukocyteson 11-25-2020 Lymphocytes/100 WBC (Bld) 29.2 % [facility] Automated blood monocyte cou nton 11-25-2020 Monocytes (Bld) [#/Vol] 0.4 10*3/uL 0.0-0.8 [facility] Automated blood platelet cou nt (count/volume)on 11-25-2020 Platelets (Bld) [#/Vol] 247 10*3/uL 150-450 [facility] Automated blood platelet ton n volume measurementon 11-25-2020 Platelet mean volume (Bld) [Entitic vol] 8.8 fL 6.3-10.7 [facility] Automated eosinophil %on Eosinophils/100 WBC (Bld) 1.1 % [facility] Automated eosinophil counton 11-25-2020 Eosinophils (Bld) [#/Vol] 0.1 10*3/uL 0.0-0.45 [facility] Automated erythrocyte distri bution width ratioon 11-25-2020 Erythrocyte distribution width (RBC) [Ratio] 13.3 % 11.9-15.3 [facility] Automated erythrocyte mean c orpuscular hemoglobin (mass per erythrocyte)on 11-25-2020 MCH (RBC) [Entitic mass] 29.2 pg 24.7-34.3 [facility] Automated erythrocyte mean c orpuscular hemoglobin concentration measurement (mass/volon 11-25-2020 MCHC (RBC) [Mass/Vol] 33.6 g/dL 32.0-35.0 [facility] Automated erythrocyte mean c orpuscular volumeon 11-25-2020 MCV (RBC) [Entitic vol] 87.0 fL 80-100 [facility] Automated monocyte %on 11-25 Monocytes/100 WBC (Bld) 5.4 % [facility] Automated neutrophil %on Neutrophils/100 WBC (Bld) 63.3 % [facility] Blood erythrocytes automated count (number/volume)on 11-25-2020 RBC (Bld) [#/Vol] 4.64 10*6/uL 3.60-5.00 [facility] Blood hemoglobin measurement (mass/volume)on 11-25-2020 Hemoglobin (Bld) [Mass/Vol] 13.6 g/dL 11.8-15.4 [facility] Blood leukocytes automated c ount (number/volume)on 11-25-2020 WBC (Bld) [#/Vol] 7.7 10*3/uL 3.8-11.6 [facility] Blood neutrophil count by au tomated method (number/volume)on 11-25-2020 Neutrophils (Bld) [#/Vol] 4.9 10*3/uL 1.8-7.7 [facility] COVID-19 Positive/Negativeon 11-25-2020 COVID-19 Positive/Negative Negative Negative [facility] Comment on above: Testing for SARS-CoV -2 by RT-PCRThis test was developed and its performance characteristics determined by [employer] ([employer] and validated at the [facility]. This test has not been FDA [...] among non-blacks MDRD (S/P/Bld) [Vol rate/Area] mL/min/{1.73_m2} [facility] Hematocrit [Volume Fraction] of Blood by Automated counton 11-25-2020 Hematocrit (Bld) [Volume fraction] 40.4 % 34.0-46.4 [facility] Otheron 11-25-2020 Coronavirus 2019 PCR Interp N/A [facility] GFR/1.73 sq M.predicted MDRD (S/P/Bld) [Vol rate/Area] mL/min/{1.73_m2} [facility] Comment on above: GFR estimated refere nce range: According to KDOQI guidelines, <60 ml/min/1.73m2 is sufficient to diagnose a patient with chronic kidney disease. Nucleated RBC/100 WBC (Bld) [Ratio] 0.0 % 0-0.5 [facility] Creatinine Clearance (Chem N/A [facility] Serum or plasma calcium eleni urement (mass/volume)on 11-25-2020 Calcium [Mass/Vol] 9.3 mg/dL 8.2-10.2 [facility] Serum or plasma chloride ton surement (moles/volume)on 11-25-2020 Chloride [Moles/Vol] 104 mmol/L 95-114 [facility] Serum or plasma creatinine m easurement with calculation of estimated glomerular filtron 11-25-2020 Creatinine [Mass/Vol] 0.76 mg/dL 0.44-1.03 [facility] Serum or plasma glucose eleni urement (mass/volume)on 11-25-2020 Glucose [Mass/Vol] 96 mg/dL 70-100 [facility] Comment on above: ADA recommended refe rence rangeRandom Glucose Reference Range is dependent on time and content of last meal. Glucose of more than 200 mg/dL in a nonstressed, ambulatory subject supports the diagnosis of Diabetes Mellitus. Serum or plasma potassium me asurement (moles/volume)on 11-25-2020 Potassium [Moles/Vol] 4.1 mmol/L 3.5-5.1 [facility] Serum or plasma sodium measu rement (moles/volume)on 11-25-2020 Sodium [Moles/Vol] 138 mmol/L 136-146 [facility] Serum or plasma total carbon dioxide measurement (moles/volume)on 11-25-2020 CO2 [Moles/Vol] 24.6 mmol/L 22.0-30.0 [facility] Serum or plasma urea nitroge n measurement (mass/volume)on 11-25-2020 Urea nitrogen [Mass/Vol] 6 mg/dL 07-23 [facility] COVID-19 SOFIAon 10-27-2020 COVID-19 MINERVA Negative Negative [facility] Comment on above: This is a duplicate test result based off of the Minerva SARS Antigen (LIZ) test performed within the Microbiology department. Otheron 10-27-2020 SARS Antigen (LFIA) [facility] Albumin [Mass/volume] in Ser um or Plasmaon 09-12-2020 Albumin [Mass/Vol] 3.9 g/dL 3.2-5.5 [facility] Cholesterol [Mass/volume] in Serum or Plasmaon 09-12-2020 Cholesterol [Mass/Vol] 175 mg/dL 140-200 [facility] Comment on above: Chol less than 200 m g/dl low riskChol 201-239 mg/dl borderline riskChol 240 mg/dl and greater high risk Cholesterol in LDL [Mass/vol ume] in Serum or Plasma by calculationon 09-12-2020 Cholesterol in LDL [Mass/Vol] 74 mg/dL 0-100 [facility] Comment on above: LDL ATP III CLASSIFI CATIONLDL less than 100 mg/dL OptimalLDL 100-129 mg/dL Near or above optimalLDL 130-159 mg/dL Borderline highLDL 160-189 mg/dL HighLDL greater than 189 mg/dL Very high Cholesterol in VLDL [Mass/vo lume] in Serum or Plasma by calculationon 09-12-2020 Cholesterol in VLDL [Mass/Vol] 44 mg/dL [facility] Estimated glomerular filtrat ion rate (GFR) non- Americanon 09-12-2020 GFR/1.73 sq M predicted among non-blacks MDRD (S/P/Bld) [Vol rate/Area] mL/min/{1.73_m2} [facility] Metabolic Panelon 09-12-2020 Glucose [Mass/Vol] 81 mg/dL 70-100 [facility] Otheron 09-12-2020 GFR/1.73 sq M.predicted MDRD (S/P/Bld) [Vol rate/Area] mL/min/{1.73_m2} [facility] Comment on above: GFR estimated refere nce range: According to KDOQI guidelines, <60 ml/min/1.73m2 is sufficient to diagnose a patient with chronic kidney disease. Pharmacy Creatinine Clearance (Chem N/A [facility] Protein [Mass/volume] in Ser um or Plasmaon 09-12-2020 Protein [Mass/Vol] 6.5 g/dL 6.1-7.9 [facility] Serum globulin measurement b y calculation (mass/volume)on 09-12-2020 Globulin (S) [Mass/Vol] 2.6 g/dL [facility] Serum or plasma alanine rizvi otransferase measurement without P-5'-P (enzymatic activion 09-12-2020 ALT No additional P-5'-P [Catalytic activity/Vol] 22 U/L 10-60 [facility] Serum or plasma albumin/glob ulin mass ratioon 09-12-2020 Albumin/Globulin [Mass ratio] 1.5 {ratio} [facility] Serum or plasma alkaline katherine sphatase measurement (enzymatic activity/volume)on 09-12-2020 ALP [Catalytic activity/Vol] 76 U/L 32-92 [facility] Serum or plasma aspartate am inotransferase measurement (enzymatic activity/volume)on 09-12-2020 AST [Catalytic activity/Vol] 18 U/L 10-42 [facility] Serum or plasma calcium eleni urement (mass/volume)on 09-12-2020 Calcium [Mass/Vol] 9.3 mg/dL 8.2-10.2 [facility] Serum or plasma chloride ton surement (moles/volume)on 09-12-2020 Chloride [Moles/Vol] 101 mmol/L 95-114 [facility] Serum or plasma creatinine m easurement with calculation of estimated glomerular filtron 09-12-2020 Creatinine [Mass/Vol] 0.67 mg/dL 0.44-1.03 [facility] Serum or plasma high density lipoprotein (HDL) cholesterol measurementon 09-12-2020 Cholesterol in HDL [Mass/Vol] 57 mg/dL 35-85 [facility] Comment on above: HDL CHOL ATP-III CLA SSIFICATION Cardiovascular RiskHDL > or equal to 60 mg/dL LOWHDL < 40 mg/dL HIGH Serum or plasma potassium me asurement (moles/volume)on 09-12-2020 Potassium [Moles/Vol] 3.9 mmol/L 3.5-5.1 [facility] Serum or plasma sodium measu rement (moles/volume)on 09-12-2020 Sodium [Moles/Vol] 136 mmol/L 136-146 [facility] Serum or plasma total biliru bin measurement (mass/volume)on 09-12-2020 Bilirubin [Mass/Vol] 0.5 mg/dL 0.3-1.2 [facility] Serum or plasma total carbon dioxide measurement (moles/volume)on 09-12-2020 CO2 [Moles/Vol] 23.4 mmol/L 22.0-30.0 [facility] Serum or plasma total choles terol/high density lipoprotein (HDL) cholesterol mass yany 09-12-2020 Cholesterol.total/Ch olesterol in HDL [Mass ratio] 3.1 {ratio} [facility] Serum or plasma urea nitroge n measurement (mass/volume)on 09-12-2020 Urea nitrogen [Mass/Vol] 7 mg/dL - [facility] Triglyceride [Mass/volume] i n Serum or Plasmaon 09-12-2020 Triglyceride [Mass/Vol] 220 mg/dL 35-149 [facility] Comment on above: TRIG ATP III CLASSIF ICATIONTRIG less than 150 mg/dL NormalTRIG 150-199 mg/dL Borderline highTRIG 200-500 mg/dL High TRIG greater than 500 mg/dL Very highStandard traceable to the Center for Disease Conrtrol and Prevention (CDC) test method. Vital Signs Date Time Vital Sign Value Performing Clinician Facility 04-09-2024 13:31-0400 Blood Pressure Location Lester Mcelroy [facility] 04-09-2024 13:31-0400 Diastolic blood pressure 84 mm[Hg] Lester Dominguezshira [facility] 04-09-2024 13:31-0400 Heart rate 61 /min Lester Dominguezli [facility] 04-09-2024 13:31-0400 Respiratory rate 16 /min Lester Dominguezshira [facility] 04-09-2024 13:31-0400 Systolic blood pressure 122 mm[Hg] Lester Dominguezshira [facility] 02-26-2024 14:18-0400 Body height 172.72 cm [facility] 02-26-2024 14:18-0400 Body mass index (BMI) [Ratio] 33.1 kg/m2 [facility] 02-26-2024 14:18-0400 Body temperature 98.2 [degF] [facility] 02-26-2024 14:18-0400 Body weight 98.99 kg [facility] 02-26-2024 14:18-0400 Diastolic blood pressure 76 mm[Hg] [facility] 02-26-2024 14:18-0400 Heart rate 68 /min [facility] 02-26-2024 14:18-0400 Respiratory rate 18 /min [facility] 02-26-2024 14:18-0400 SaO2% (BldA) [Mass fraction] 98 % [facility] 02-26-2024 14:18-0400 Systolic blood pressure 120 mm[Hg] [facility] 10-17-2023 16:30-0500 Body height 162.56 cm Ml Chisholm Other [facility] Other 10-17-2023 16:30-0500 Body mass index (BMI) [Ratio] 34.67 kg/m2 Ml Chisholm Other [facility] Other 10-17-2023 16:30-0500 Body weight 91.63 kg Ml Chisholm Other [facility] Other 10-17-2023 16:30-0500 Diastolic blood pressure 71 mm[Hg] Ml Chisholm Other [facility] Other 10-17-2023 16:30-0500 Respiratory rate 18 /min Ml Chisholm Other [facility] Other 10-17-2023 16:30-0500 SaO2% (BldA) [Mass fraction] 96 % Ml Chisholm Other [facility] Other 10-17-2023 16:30-0500 Systolic blood pressure 112 mm[Hg] Ml Chisholm Other [facility] Other 08-10-2023 11:55-0400 Body height 162.56 cm Sera Lares Other [facility] Other 08-10-2023 11:55-0400 Body mass index (BMI) [Ratio] 37.24 kg/m2 Sera Lares Other [facility] Other 08-10-2023 11:55-0400 Body temperature 97.7 [degF] Sera Lares Other [facility] Other 08-10-2023 11:55-0400 Body weight 98.43 kg Sera Lares Other [facility] Other 08-10-2023 11:55-0400 Respiratory rate 18 /min Sera Lares Other [facility] Other 08-10-2023 11:55-0400 SaO2% (BldA) [Mass fraction] 98 % Sera Lares Other [facility] Other 09-08-2022 10:30-0500 Body height 162.56 cm Marleni Missler Other [facility] Other 09-08-2022 10:30-0500 Body mass index (BMI) [Ratio] 34.93 kg/m2 Marleni Missler Other [facility] Other 09-08-2022 10:30-0500 Body weight 92.31 kg Marleni Missler Other [facility] Other 09-08-2022 10:30-0500 Diastolic blood pressure 77 mm[Hg] Marleni Missler Other [facility] Other 09-08-2022 10:30-0500 Respiratory rate 18 /min Marleni Missler Other [facility] Other 09-08-2022 10:30-0500 SaO2% (BldA) [Mass fraction] 96 % Marleni Missler Other [facility] Other 09-08-2022 10:30-0500 Systolic blood pressure 117 mm[Hg] Marleni Missler Other [facility] Other 09-02-2022 15:00-0400 Body height 162.56 cm Ame Ortiz Other [facility] Other 09-02-2022 15:00-0400 Body mass index (BMI) [Ratio] 34.5 kg/m2 Ame Ortiz Other [facility] Other 09-02-2022 15:00-0400 Body temperature 98.6 [degF] Ame Ortiz Other [facility] Other 09-02-2022 15:00-0400 Body weight 91.17 kg Ame Ortiz Other [facility] Other 09-02-2022 15:00-0400 Diastolic blood pressure 82 mm[Hg] Ame Ortiz Other [facility] Other 09-02-2022 15:00-0400 Respiratory rate 18 /min Ame Ortiz Other [facility] Other 09-02-2022 15:00-0400 SaO2% (BldA) [Mass fraction] 86 % Ame Ortiz Other [facility] Other 09-02-2022 15:00-0400 Systolic blood pressure 129 mm[Hg] Ame Ortiz Other [facility] Other 07-10-2022 12:10-0400 Body height 162.56 cm Ame Ortiz Other [facility] Other 07-10-2022 12:10-0400 Body mass index (BMI) [Ratio] 33.91 kg/m2 Ame Nik Other [facility] Other 07-10-2022 12:10-0400 Body temperature 98.6 [degF] Ame Ortiz Other [facility] Other 07-10-2022 12:10-0400 Body weight 89.63 kg Ame Ortiz Other [facility] Other 07-10-2022 12:10-0400 Diastolic blood pressure 81 mm[Hg] Ame Ortiz Other [facility] Other 07-10-2022 12:10-0400 Respiratory rate 18 /min Ame Ortiz Other [facility] Other 07-10-2022 12:10-0400 SaO2% (BldA) [Mass fraction] 98 % Ame Ortiz Other [facility] Other 07-10-2022 12:10-0400 Systolic blood pressure 132 mm[Hg] Ame Ortiz Other [facility] Other 05-24-2022 17:00-0400 Body height 162.56 cm Ame Ortiz Other [facility] Other 05-24-2022 17:00-0400 Body mass index (BMI) [Ratio] 34.67 kg/m2 Ame Ortiz Other [facility] Other 05-24-2022 17:00-0400 Body temperature 98 [degF] Ame Ortiz Other [facility] Other 05-24-2022 17:00-0400 Body weight 91.63 kg Ame Ortiz Other [facility] Other 05-24-2022 17:00-0400 Diastolic blood pressure 70 mm[Hg] Ame Ortiz Other [facility] Other 05-24-2022 17:00-0400 Respiratory rate 18 /min Ame Ortiz Other [facility] Other 05-24-2022 17:00-0400 SaO2% (BldA) [Mass fraction] 99 % Ame Ortiz Other [facility] Other 05-24-2022 17:00-0400 Systolic blood pressure 122 mm[Hg] Ame Ortiz Other [facility] Other 10-02-2021 18:20-0500 Body height 162.56 cm Sera Smallwoodmond Other [facility] Other 10-02-2021 18:20-0500 Body mass index (BMI) [Ratio] 35.01 kg/m2 Sera Luda Other [facility] Other 10-02-2021 18:20-0500 Body temperature 98.2 [degF] Sera Luda Other [facility] Other 10-02-2021 18:20-0500 Body weight 92.53 kg Sera Smallwoodmond Other [facility] Other 10-02-2021 18:20-0500 Diastolic blood pressure 81 mm[Hg] Sera Luda Other [facility] Other 10-02-2021 18:20-0500 Respiratory rate 18 /min Sera Lares Other [facility] Other 10-02-2021 18:20-0500 SaO2% (BldA) [Mass fraction] 99 % Sera Lares Other [facility] Other 10-02-2021 18:20-0500 Systolic blood pressure 118 mm[Hg] Sera Lares Other [facility] Other 08-22-2021 15:15-0400 Body height 162.56 cm Christiana Ginty Other [facility] Other 08-22-2021 15:15-0400 Body mass index (BMI) [Ratio] 34.33 kg/m2 Christiana Ginty Other [facility] Other 08-22-2021 15:15-0400 Body weight 90.72 kg Christiana Ginty Other [facility] Other Encounters Encounter Date Encounter Type Care Provider Facility Start: 06-13-2024 End: 06-13-2024 ambulatory ISAAK MCCORD Not Available Start: 06-04-2024 End: 06-04-2024 ambulatory CHELSEA M ANDREA-NOSSEK Not Available Start: 05-23-2024 End: 05-23-2024 ambulatory ISAAK MCCORD Not Available Start: 05-16-2024 End: 05-16-2024 ambulatory ISAAK MCCORD Not Available Start: 05-11-2024 End: 05-11-2024 ambulatory ISAAK MCCORD Not Available Start: 04-25-2024 End: 04-25-2024 ambulatory CHELSEA M ANDREA-NOSSEK Not Available Start: 04-11-2024 End: 04-11-2024 ambulatory Lester Mcelroy Facility[place] Start: 04-11-2024 End: 04-11-2024 Lab Drop off Lester Mcelroy [facility] Start: 04-09-2024 End: 04-09-2024 ambulatory Lester Mcelroy Facility[place] Start: 04-09-2024 End: 04-09-2024 Patient encounter procedure Lester Mcelroy [facility] Start: 04-09-2024 End: 04-09-2024 ambulatory Lester Mcelroy Facility:[facility] Start: 04-09-2024 End: 04-09-2024 Patient encounter procedure Lester Mcelroy [facility] Start: 03-15-2024 End: 03-15-2024 ambulatory LUIS EDUARDO AMA Not Available Start: 02-26-2024 End: 02-26-2024 ambulatory PSYCHOLOGISTS-C [facility] Work Phone: Start: 02-26-2024 End: 02-26-2024 Patient encounter procedure PSYCHOLOGISTS-C Ame Nik Replaced By [facility] Work Phone: Start: 02-23-2024 End: 02-23-2024 ambulatory CHELSEA M ANDREA-NOSSEK Not Available Start: 01-26-2024 End: 01-26-2024 ambulatory CHELSEA M ANDREA-NOSSEK Not Available Start: 12-08-2023 End: 12-08-2023 ambulatory Ame Ortiz Facility:[facility] Start: 12-08-2023 End: 12-08-2023 ambulatory PSYCHOLOGISTS[facility]C Ame [facility] Work Phone: Start: 12-08-2023 End: 12-08-2023 Departed Referred PSYCHOLOGISTS-C Ame [facility] Start: 11-16-2023 End: 11-16-2023 ambulatory CHELSEA Ribeiro ANDREARAGHAVAustin Not Available Start: 10-26-2023 End: 10-26-2023 ambulatory LUIS EDUARDO SERRATO Not Available Start: 10-17-2023 End: 10-17-2023 ambulatory Ml Chisholm Other [facility] [employer] Other Start: 10-17-2023 Office outpatient visit 15 minutes Ml Chisholm [facility] Start: 10-17-2023 End: 10-17-2023 Patient encounter procedure PS[facility]OLOGISTS[facility] Ame Ortiz Replaced By [facility] Work Phone: Start: 08-10-2023 End: 08-10-2023 ambulatory Sera Lares Other [facility] [employer] Other Start: 08-10-2023 Office outpatient visit 15 minutes Sera Luda [facility] Start: 04-16-2023 End: 04-17-2023 ambulatory Ame Ortiz Facility:[facility] Start: 02-02-2023 End: 02-03-2023 ambulatory AME ORTIZ Facility: Start: 01-26-2023 ambulatory AME ORTIZ Facil ity:[facility] Start: 01-17-2023 End: 01-17-2023 Lab Drop off AME OTRIZ [facility] Start: 12-16-2022 End: 12-16-2022 ambulatory Cong Cobian Facility:[facility] Start: 10-31-2022 End: 10-31-2022 ambulatory PHYSICIAN AMBIKA [facility] Work Phone: Start: 10-31-2022 End: 10-31-2022 Patient encounter procedure PHYSICIAN NO [facility]-Self Pay Exercise Program Start: 10-23-2022 End: 10-23-2022 ambulatory FARHEEN CAMACHO . Facility:[facility] Start: 10-13-2022 End: 10-13-2022 Patient encounter procedure PHYSICIAN NO [facility] [place] Work Phone: Start: 10-13-2022 Registered Recurring PHYSICIAN NO [facility] Work Phone: Start: 10-12-2022 End: 10-12-2022 ambulatory PHYSICIAN NO [facility] Work Phone: Start: 10-12-2022 End: 10-12-2022 Patient encounter procedure PHYSICIAN NO [facility] [place] Start: 10-11-2022 Registered Recurring PHYSICIAN NO [facility] Start: 10-11-2022 End: 10-11-2022 ambulatory Marleni Jordan Other [facility] Other Start: 10-11-2022 Telephone encounter Marleni Jordan Replaced By [facility] Start: 09-29-2022 End: 09-29-2022 ambulatory Abhi Finney Facility:[facility] Start: 09-15-2022 End: 09-16-[address] DOCTOR LANDEROS Facility: Start: 09-08-2022 End: 09-08-2022 ambulatory Marleni Jordan Other [facility] [employer] Other Start: 09-08-2022 Nutrition therapy Marleniher Jordan [facility] Start: 09-02-2022 End: 09-02-2022 ambulatory Ame Ortiz Other [facility] [employer] Other Start: 09-02-2022 Office outpatient visit 15 minutes Ame Ortiz [facility] Start: 08-02-2022 End: 08-02-2022 ambulatory Debra Celestin Other [facility] [employer] Other Start: 08-02-2022 Telephone encounter Debra Celestin [facility] Start: 07-14-2022 End: 07-14-2022 ambulatory Ame Paetlault Facility:[facility] Start: 07-10-2022 End: 07-10-2022 ambulatory Amepatrick Ortiz Other [facility] [employer] Other Start: 07-10-2022 Office outpatient visit 15 minutes Ame Nik [facility] Start: 07-07-2022 End: 07-08-[address] CONOR BEAL Facility: Start: 06-26-2022 End: 06-26-2022 ambulatory Ame Nik Other [facility] [employer] Other Start: 06-26-2022 Telephone encounter Ame Brezaydal t [facility] [place] Start: 05-24-2022 End: 05-24-2022 Departed Referred PSYCHOLOGISTS-C Ame Nik Work Phone: [facility] [place] Start: 05-24-2022 End: 05-24-2022 ambulatory Ame Patelault Other [facility] [employer] Other Start: 05-24-2022 Office outpatient visit 15 minutes Ame Nik [facility] Start: 05-19-2022 End: 05-19-2022 ambulatory Ame Nik Other [facility] [employer] Other Start: 05-19-2022 Telephone encounter Ame Breaul t [facility] Start: 05-11-2022 ambulatory BRITNI GRANT Facilit y:[facility] Start: 12-11-2021 End: 12-11-2021 ambulatory Ame Nik Other [facility] [employer] Other Start: 12-11-2021 Telephone encounter Ame Breaul t [facility] Start: 10-02-2021 End: 10-02-2021 ambulatory Sera Lares Other [facility] [employer] Other Start: 10-02-2021 Office outpatient visit 15 minutes Sera Luda [facility] Start: 08-22-2021 End: 08-22-2021 ambulatory Christiana Martel Other [facility] [employer] Other Start: 08-22-2021 Office outpatient visit 15 minutes Christiana Martel [facility] Start: 11-25-2020 End: 11-25-2020 Patient encounter procedure Kit Reyes ([facility]) -Pre-Surgical Testing Start: 10-27-2020 End: 10-27-2020 Patient encounter procedure Kit Reyes ([facility]) -[place] COVID Testing Start: 09-12-2020 End: 09-12-2020 Departed Referred Kit Reyes ([facility]) -[employer] [facility] [address] Procedures Date Procedure Procedure [...] AME ORTIZ Tonsillectomy AME LEE Urine culture [facility]OLOGISTS-C Sil Ortiz Work Phone: wisdom teeth AME WARNER LT Immunizations Immunization Date Immunization Notes Care Provider Fa cilibrianna 08-04-2022 influenza virus vaccine, unspecified formulation Lester Mcelroy [facility] 07-13-2022 SARS-CoV-2 (COVID-19 ) mRNA-5921 vaccine Mohamad Mouchli [facility] 11-22-2021 COVID-19 Vaccine Moderna - Documentation Purposes Only Ame Nik Other [facility] 08-13-2020 influenza virus vaccine, unspecified formulation Mohamad Mouchli [facility] 08-07-2020 influenza virus vaccine, unspecified formulation Mohamad Mouchli [facility] 08-09-2019 hepatitis B vaccine, adult dosage Mohamad Mouchli [facility] 08-05-2019 influenza virus vaccine, unspecified formulation Mohamad Mouchli [facility] 03-15-2019 hepatitis B vaccine, adult dosage Mohamad Mouchli [facility] 03-15-2019 varicella virus vaccine Moha mad Mouchli [facility] 02-08-2019 hepatitis B vaccine, adult dosage Mohamad Mouchli [facility] 02-08-2019 tetanus toxoid, redu emmett diphtheria toxoid, and acellular pertussis vaccine, adsorbed Mohamad Mouchli [facility] 02-08-2019 varicella virus vaccine Moha mad Mouchli [facility] 01-07-2019 influenza virus vaccine, unspecified formulation Mohamad Mouchli [facility] Payers Date Payer Category Payer Unknown 2022 Self-pay [id number] 1985 Unknown [id number] 2.16.84 0.1.085831.3.579.2.593 1986 Unknown [id number] 2.16.84 0.1.056612.3.579.2.593 1986 Unknown [id number] 2.16.84 0.1.261479.3.579.2.593 1986 Unknown [id number] 2.16.84 0.1.700423.3.579.2.593 1986 Unknown [id number] 2.16.84 0.1.799344.3.579.2.593 1986 Unknown [id number] 2.16.84 0.1.328055.3.579.2.593 1986 Unknown [id number] 2.16.84 0.1.455074.3.579.2.593 1986 Unknown [id number] 2.16.8 40.1.568963.3.579.2.718 1986 Unknown [id number] 2.16.84 0.1.458860.3.579.2.718 1986 Unknown [id number] 2.16.8 40.1.447300.3.579.2.727 1986 Unknown [id number] 2.16.8 40.1.559303.3.579.2.727 1986 Unknown [id number] 2.16.8 40.1.459994.3.579.2.727 1986 Unknown [id number] 2.16.84 0.1.476244.3.579.2.1259 1986 Unknown [id number] 2.16.84 0.1.102246.3.579.2.1259 1986 Unknown [id number] 2.16.84 0.1.453876.3.579.2.1259 1986 Unknown [id number] 2.16.84 0.1.861088.3.579.2.1259 1986 Unknown [id number] 2.16.84 0.1.804784.3.579.2.9 1986 Unknown [id number] 2.16.84 0.1.924265.3.579.2.9 1986 Unknown [id number] 2.16.84 0.1.623163.3.579.2.9 1986 Unknown [id number] 2.16.84 0.1.184851.3.579.2.9 1986 Unknown [id number] 2.16.84 0.1.023725.3.579.2.9 1985 Unknown [id number] 2.16.84 0.1.634851.3.579.2.9 1985 Unknown [id number] 2.16.840 .1.040366.3.579.2.1259 1959 Private Health Insurance [facility] [id number] Private Health Insurance [facility] [id number] 2.16.840.1.096557.19 Unknown [id number] Unknown [id number] Unknown [id number] Social History Date Type Detail Facility Start: 11-25-2020 End: 04-09-2024 Tobacco smoking status SCIS Never smoked tobacco (finding) [facility] Start: 1985 Sex Assigned At Female F [facility] Sex Assigned At [facility] Tobacco smoking status Never Dw[facility]e [facility] Medical Equipment Procedure Code Equipment Code Equipment Origin al Text Equipment Identifier Dates Test Strips as directed Start: 09-02-2022 Goals Date Patient Goal Desired Activity /State Functional Status Date Assessment Result Facility 04-09-2024 Functional Status N/A [facility] Clinical Notes 08-22-2021 to 04-11-2024 LaboratoryLaboratory Note Date & Type Note Facility 04-11-2024 Evaluation + Plan note Diagnostic Tests PendingCalprotectin, Fecal 04/11/24Enteric Panel by PCR 04/11/24O & P Exam, Routine 04/11/24Pancreatic Elastase, Fecal 04/11/24 [facility] 04-09-2024 Evaluation + Plan note Future Scheduled TestsPancreatic Elastase, Fecal 04/09/24Calprotectin, Fecal 04/09/24O & P Exam, Routine 04/09/24Clostridium Difficile PCR 04/09/24Enteric Panel by PCR 04/09/24 [facility] 04-09-2024 Evaluation + Plan note Diagnostic Tests PendingCeliac Disease Comprehensive 04/09/24 Future Scheduled TestsPancreatic Elastase, Fecal 04/09/24Calprotectin, Fecal 04/09/24O & P Exam, Routine 04/09/24Clostridium Difficile PCR 04/09/24Enteric Panel by PCR 04/09/24 [facility] 10-17-2023 Evaluation note Encounter Date Diagnosis Assessment [...] while sleeping. questions and concerns were addressed [facility] Other 10-11-2023 Evaluation note* Encounter Date Diagnosis [...] no improvement in 2 to 3 days [facility] Other 03-20-2023 Evaluation + Plan note Diagnostic Tests Pending * FSH and LH 01/17/23 [facility]02-16-2023 NotePatient Education Materials Follows: Otitis Media, Adult [...] Follow these instructions at home: ? Take [id number] and prescription medicines only as told by [...] provider. Document Revised: 01/25/2022 Document Reviewed: 01/25/2022 Whistle Patient Education ? 2021 [employer].[facility] [id number] Note Patient Education Materials Follows:[facility] [id number] Evaluation note * Encounter Date Diagnosis Assessment [...] medication before and did have stomach upset [facility] Other 11-03-2022 Evaluation note* Encounter Date Diagnosis Assessment Notes Treatment Notes Treatment Clinical Notes Aug, Dizziness (ICD-10 - R42) Aug, History of reactive hypoglycemia (ICD-10 - Z86.39) Start with keeping journal of symptoms. Take blood sugars when you experience symptoms. [facility] Other 09-10-2022 Evaluation note* Encounter Date Diagnosis Assessment Notes Treatment Notes Treatment Clinical Notes Jul, Intractable migraine without aura and without status migrainosus (ICD-10 - G43.019) Take medication as directed. Stay away from known triggers. Follow up with primary care provider or neurology if symptoms persist. Phenergan and Toradol Im given in office. Explained medication will cause drowsiness. [facility] Other 08-27-2022 Evaluation note* Encounter Date Diagnosis Assessment Notes Treatment Notes Treatment Clinical Notes May, Migraine aura without headache (ICD-10 - G43.109) [facility] Other 07-25-2022 Evaluation note* Encounter Date Diagnosis [...] (ICD-10 - G43.109) Continue medication as needed [facility] Other 12-03-2021 Evaluation note* Encounter Date Diagnosis [...] no improvement in 5 to 7 days [facility] Other 10-23-2021 Evaluation note* Encounter Date Diagnosis [...] Patient care instructions given in writting by [facility] Care At Home document [employer] Other Evaluation noteNo [email or web address] Other Evaluation noteNo assessment information available [facility] Work Phone: [facility] Narrative - Reported* Type Description Date Medical History bipolar depression Medical History hx stomach ulcers Medical History migraine headaches Surgical History T&A 1997 Surgical History [facility] 2005 Surgical History Keloid Scar from ear 2005 Surgical History Lap Saima 2008 Surgical History D&C 2011 Surgical History Mass removed from left breast 2 014 Surgical History sinus surgery Surgical History colonoscopy 04/18 Surgical History laproscopy and uterine ablation 07/19 Surgical History left side achiles tendon cut wi th implant Surgical History two sinus surgerys Surgical History hysterectomy Hospitalization History See Above [employer] Other [facility] general Narrative - Reported* Type Description Date Medical History bipolar depression Medical History hx stomach ulcers Medical History migraine headaches Medical History IBS Medical History chronic depression Medical History anxiety Medical History Gestational diabetes - yes Medical History PCOS Medical History Esophageal reflux Medical History fatigue Medical History lactose intolerance Medical History obesity Surgical History T&A 1997 Surgical History [facility] 2004 Surgical History Keloid Scar from [...] reconstruction 2 021 Hospitalization History See Above [employer] Other [facility]wy[facility] general Narrative - Reported* Type Description Date Medical History bipolar depression Medical History hx stomach ulcers Medical History migraine headaches Medical History IBS Medical History chronic depression Medical History anxiety Medical History Gestational diabetes - yes Medical History PCOS Medical History Esophageal reflux Medical History fatigue Medical History lactose intolerance Medical History obesity Surgical History T&A 1997 Surgical History [facility] 2004 Surgical History Keloid Scar from ear 2006 [...] reconstruction 2 021 Hospitalization History See Above [employer] Other Hospital course Narrative No data available for this section [facility] No data available for this section [facility] No data available for this section [facility] Advance Directives No Advanced Directives Records Found Advance Directive Response Recorded Date/ Time Advance Directives No April 08 0 6:58am Advance Directive Response Recorded Date/ Time Advance Directives No April 08 0 7:58am Chief Complaint and Reason for Visit [facility] Dysmenorrhea,Dyspareunia,Abnormal Uterine Bleeding Chief Complaint [...] Inactive Member Role Status Dates Ame Ortiz PSYCHOLOGISTS-C Attending Provider Active PHYSICIAN NO FAMILY Primary Care Provider Active Team Status: Active Member Role Status Dates PHYSICIAN NO FAMILY Primary Care Provider Active Team Status: Inactive Member Role Status Dates Lambert Gavin , Attending Provider Active Ame Ortiz , PSYCHOLOGISTS-C Primary Care Provider Active Team Status: Active Member Role Status Dates PHYSICIAN NO FAMILY Primary Care Provider Active Ame Ortiz PSYCHOLOGISTS-C Attending Provider Active Team Status: Active Member Role Status Dates Ame Ortiz , PSYCHOLOGISTS-C Primary Care Provider Active Team Status: Inactive Member Role Status Dates Ame Ortiz , PSYCHOLOGISTS-C Primary Care Provider Active Alexis Lincoln MD Attending Provider Active Team Status: Inactive Member Role Status Dates Ame Ortiz , PSYCHOLOGISTS-C Primary Care Provider Active Lambert Gavin , DO Attending Provider Active Team Status: Inactive Member Role Status Dates Ml Chisholm NP Attending Provider Active Start: October 17, 2023 End: October 17, 2023 Team Status: Inactive Member Role Status Dates Ame Nik , PSYCHOLOGISTS-C Primary Care Provider Active Start: December 08, 2023 End: December 08, 2023 Fabienne Guerra DPM MS Attending Provider Active Start: December 08, 2023 End: December 08, 2023 Team Status: Active Member Role Status Dates LYDIA MercedesP-BC Primary Care Provider Activ e Team Status: Inactive Member Role Status Dates Sera Lares NP-C Attending Provider Active S tart: February 26, 2024 End: February 26, 2024 LYDIA MercedesP-BC Primary Care Provider Activ e Start: February 26, 2024 End: February 26, 2024 Goals (unrecognized section and content) Goals may be documented in a n alternate section INFORMATION SOURCE (unrecogn ized section and content) DATE CREATED AUTHOR 02/12/2023 [facility] DATE CREATED AUTHOR AUTHOR'S ORGANIZ ATION 04/20/2023 [facility] DATE CREATED AUTHOR AUTHOR'S ORGANIZ ATION 12/14/2023 [facility] DATE CREATED AUTHOR AUTHOR'S ORGANIZ ATION 04/12/2024 [facility] DATE CREATED AUTHOR AUTHOR'S ORGANIZ ATION 04/13/2024 [facility] DATE CREATED AUTHOR AUTHOR'S ORGANIZ ATION 04/18/2024 [facility] DATE CREATED AUTHOR AUTHOR'S ORGANIZ ATION 04/19/2024 [facility] DATE CREATED AUTHOR AUTHOR'S ORGANIZ ATION 04/21/2024 [facility] DATE CREATED AUTHOR AUTHOR'S ORGANIZ ATION 04/25/2024 [facility] DATE CREATED AUTHOR AUTHOR'S ORGANIZ ATION 06/14/2024 [facility] FOR RECORDS PERTAINING TO PATIENTS [...] BE BASED ON THE PRIMARY CLINICAL RECORDS. [facility] [employer] provides no warranty or guarantee of the accuracy or completeness of information in this document.
--- NOTE | 2024-06-15 18:28 | ED.GENADUL1 ---
HPI HPI - General Adult General Chief complaint: Headache Stated complaint: HEADACHE Time Seen by Provider: 06/15/24 18:27 Source: patient Mode of arrival: walk-in History of Present Illness HPI narrative: Patient is a 39-year-old female presents to the ER with concerns of an intractable migraine. She reports waking up with symptoms this morning at 7, typical of her previous migraines starting on the left side of her face, left forehead. Patient states she has had 2 sinus surgeries, no recent illness or fever but believes her sinuses contribute to her migraine symptoms. She is treated by a local neurologist on multiple medications and she has taken Maxalt x 2 today without relief. She has had some nausea and also took Zofran, but is not feeling much better. She denies any visual disturbance, she denies any syncope or fever. She is without any chest pain or shortness of breath. She reports classic symptoms such as photophobia and phonophobia wearing sunglasses with some relief. Patient appears in no distress sitting up at the bedside. Location: Reports head Severity: moderate Quality: Reports aching Pain Consistency: Reports constant Relieving factors: Reports none Exacerbating factors: Reports other Associated symptoms: Reports nausea/vomiting Related Data Home Medications ?Medication ?Instructions ?Recorded ?Confirmed Lactobacillus acidophilus 100 mmu cells PO DAILY 11/28/23 12/08/23 (Acidophilus capsule) cariprazine 3 mg capsule (Vraylar) 3 mg PO DAILY 11/28/23 12/08/23 cetirizine 10 mg tablet 10 mg PO DAILY PRN allergy symptoms 11/28/23 12/08/23 lamotrigine 100 mg tablet 100 mg PO DAILY 11/28/23 12/08/23 meloxicam 15 mg tablet 15 mg PO DAILY 11/28/23 12/08/23 propranolol 160 mg capsule,24 160 mg PO Q24H 11/28/23 12/08/23 hr,extended release rizatriptan 10 mg tablet 10 mg PO DAILY PRN migraine 11/28/23 12/08/23 headache sertraline 100 mg tablet 100 mg PO BID 11/28/23 12/08/23 trazodone 50 mg tablet 100 mg PO QPM PRN sleep 11/28/23 12/08/23 Previous Rx's ?Medication ?Instructions ?Recorded alendronate 70 mg tablet (Fosamax) 70 mg PO QWEEK 12 weeks #12 tabs 12/09/23 aspirin 81 mg tablet,delayed 81 mg PO BID 30 days #60 tabs 12/09/23 release (Adult Low Dose Aspirin) cefadroxil 500 mg capsule 500 mg PO BID 7 days #14 caps 12/09/23 cholecalciferol (vitamin D3) 125 125 mcg PO DAILY 90 days #90 caps 12/09/23 mcg (5,000 unit) capsule ondansetron 4 mg disintegrating 4 mg PO Q8H PRN nausea and 12/09/23 tablet vomiting 5 days #15 tabs oxycodone-acetaminophen 5 mg-325 1 tab PO Q6H PRN pain 7 days #28 12/09/23 mg tablet (Percocet) tabs sennosides 8.6 mg tablet (Senna 8.6 mg PO DAILY PRN constipation 7 12/09/23 Laxative) days #7 tabs tizanidine 2 mg tablet 2 mg PO TID PRN muscle spasticity 12/09/23 7 days #21 tabs ondansetron HCl 4 mg tablet 4 mg PO Q6H PRN nausea and 06/15/24 vomiting #12 tabs Allergies Allergy/AdvReac Type Severity Reaction Status Date / Time adhesive tape Allergy Severe Verified 11/28/23 09:14 povidone-iodine Allergy Rash Verified 11/28/23 09:14 [From Betadine] codeine AdvReac Vomiting Verified 11/28/23 09:14 Opioid HPI Opioid Management Most Recent Opioid Data: Last Pain Scale 9 06/15/24 18:42 Last Pain Intensity 8 12/09/23 08:14 Last MAR Pain Assessment 06/15/24 18:42 Review of Systems ROS Constitutional Denies: fever or chills Eyes Denies: change in vision Ears, nose, mouth, and throat Denies: throat pain or neck pain Cardiovascular Denies: chest pain or palpitations Respiratory Denies: shortness of breath or cough Gastrointestinal Reports: nausea and vomiting; Denies: abdominal pain Genitourinary Denies: painful urination or urinary frequency Musculoskeletal Denies: back pain or neck pain Integumentary/Breast Denies: rash, itching or redness Neurological Denies: headache or numbness in extremities Psychiatric Denies: anxiety Endocrine Denies: excessive urination [facility] Medical History (Updated 06/15/24 @ 18:41 by JESICA Masters) Stress incontinence ?N39.3 - Stress incontinence (female) (male) (ICD-10) Hallux valgus ?M20.10 - Hallux valgus (acquired), unspecified foot (ICD-10) Strain of right peroneal muscle or tendon ?S86.311A - Strain of muscle(s) and tendon(s) of peroneal muscle group at lower leg level, right leg, initial encounter (ICD-10) 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 - Congenital deformity of feet, unspecified, unspecified foot (ICD-10) 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 - Other congenital varus deformities of feet, unspecified foot (ICD-10) Equinus contracture of right ankle ?M24.571 - Contracture, right ankle (ICD-10) Osteoarthritis of right ankle and foot ?M19.071 - Primary osteoarthritis, right ankle and foot (ICD-10) Eversion deformity of right foot ?M21.071 - Valgus deformity, not elsewhere classified, right ankle (ICD-10) Posterior tibial tendon dysfunction ?M76.829 - Posterior tibial tendinitis, unspecified leg (ICD-10) Insomnia ?G47.00 - Insomnia, unspecified (ICD-10) Depression ?F32.A - Depression, unspecified (ICD-10) Anxiety ?F41.9 - Anxiety disorder, unspecified (ICD-10) COVID-19 ?U07.1 - COVID-19 (ICD-10) Migraine ?G43.909 - Migraine, unspecified, not intractable, without status migrainosus (ICD-10) Kidney stones ?N20.0 - Calculus of kidney (ICD-10) Seasonal allergies ?J30.2 - Other seasonal allergic rhinitis (ICD-10) Heartburn ?R12 - Heartburn (ICD-10) IBS (irritable bowel syndrome) ?K58.9 - Irritable bowel syndrome without diarrhea (ICD-10) Encounter for removal of skin lesion ?L98.9 - Disorder of the skin and subcutaneous tissue, unspecified (ICD-10) Surgical History (Updated 12/09/23 @ 09:51 by Marleni Butler NP) History of wisdom tooth extraction ?K08.409 - Partial loss of teeth, unspecified cause, unspecified class (ICD-10) History of colonoscopy ?Z98.890 - Other specified postprocedural states (ICD-10) History of esophagogastroduodenoscopy (EGD) ?Z98.890 - Other specified postprocedural states (ICD-10) H/O sinus surgery ?Z98.890 - Other specified postprocedural states (ICD-10) History of nasal septoplasty ?Z98.890 - Other specified postprocedural states (ICD-10) H/O lumpectomy ?Z98.890 - Other specified postprocedural states (ICD-10) History of endometrial ablation ?Z98.890 - Other specified postprocedural states (ICD-10) History of dilation and curettage ?Z98.890 - Other specified postprocedural states (ICD-10) History of cholecystectomy ?Z90.49 - Acquired absence of other specified parts of digestive tract (ICD-10) History of tonsillectomy ?Z90.89 - Acquired absence of other organs (ICD-10) History of hysterectomy ?Z90.710 - Acquired absence of both cervix and uterus (ICD-10) History of foot surgery (2018) ?Z98.890 - Other specified postprocedural states (ICD-10) History of foot surgery (03/02/21) ?Z98.890 - Other specified postprocedural states (ICD-10) Family History (Updated 11/28/23 @ 09:29 by Tina Chen NP) Other Family history of cervical cancer Family history of diabetes mellitus Family history of hypertension Family history of lung cancer Family history of myocardial infarction Family history of ovarian cancer Social History (Updated 11/28/23 @ 09:20 by Tina Chen NP) Within the past year, how often did you have a drink containing alcohol: never Score interpretation: A score less than 3 is consistent with normal alcohol consumption. 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 The patient is not hypoxic. General: The patient appears well and in no apparent distress. Patient is resting comfortably on cart. Skin: Warm, dry, no pallor noted. The patient has no evidence of rash, petechiae, or purpura noted. Head: Normocephalic, atraumatic, no temporal arterial tenderness Neck: Supple, trachea mid-line, no tenderness, no lymphadenopathy. No meningeal signs. No nuchal rigidity. Eye: Pupils are equal, round and reactive to light, EOMI Ears, Nose, Mouth, and Throat: Oral mucosa is moist, TMs are clear bilaterally, no hemotympanum noted. Cardiovascular: Regular Rate and Rhythm Respiratory: Patient is in no distress, no accessory muscle use, lungs are clear to auscultation, no wheezing, rales or rhonchi Back: non-tender, no CVA tenderness Musculoskeletal: normal ROM, no tenderness, no swelling, normal strength 5/5. Normal pulses to radial 2+ bilaterally and 2+ at DP and PT bilaterally and symmetrically. GI: Normal bowel sounds, no tenderness to palpation, no masses appreciated. No rebound, guarding, or rigidity noted. Neurological: A&O x4, The patient is not ataxic. The patient has normal speech. The patient has normal coordination. . Normal motor and sensory observed. Psychiatric: Cooperative Constitutional Vital Signs, click to edit/add: Last Vital Signs Temp 98.3 F 06/15/24 18:09 Pulse 77 06/15/24 18:09 Resp 16 06/15/24 18:09 BP 114/77 06/15/24 18:09 Pulse Ox 98 06/15/24 18:09 O2 Del Method Room Air 06/15/24 18:09 Course Vital Signs Vital signs: Vital Signs Temperature 98.3 F 06/15/24 18:09 Pulse Rate 77 06/15/24 18:09 Respiratory Rate 16 06/15/24 18:09 Blood Pressure 114/77 06/15/24 18:09 Pulse Oximetry 98 06/15/24 18:09 Oxygen Delivery Method Room Air 06/15/24 18:09 Temperature 98.3 F 06/15/24 18:09 Pulse Rate 77 06/15/24 18:09 Respiratory Rate 16 06/15/24 18:09 Blood Pressure 114/77 06/15/24 18:09 Pulse Oximetry 98 06/15/24 18:09 Oxygen Delivery Method Room Air 06/15/24 18:09 Medical Decision Making MDM Narrative Medical decision making narrative: Discussed patient's presentation, migrainous symptoms with history of chronic migraines. Patient notes that there is nothing abnormal about her current symptoms other than length of time and not getting relief. Patient states she has had trouble with finding medication to help with her symptoms. She denies any fevers or chills. She has no temporal tenderness or TMJ tenderness. We discussed IV fluids, IV medications but that she would need to get a ride home as she would not be able to drive with concerns of sedation. 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 She is treated here with IM Toradol, denies chance of with prior hysterectomy. She is also given 1 g of Tylenol. She is sent home with a prescription of Zofran but will take Benadryl 50 mg, Phenergan 25 mg and Flexeril 10 mg this evening when she gets home. She will not take her current muscle relaxant. Patient agreeable to treatment plan and may return to the ER if symptoms worsen or new symptoms develop. Patient will not drive when she takes her medications at home and will not be in charge of supervising small children. The patient is to followup with primary care physician/ Neurology: In next 2-3 days or to return to the emergency department should any of the signs or symptoms worsen or new symptoms develop. Patient had questions answered. The patient agrees with the following Diagnosis and Treatment plan and the patient will be discharged home. Discharge Plan Discharge Stand Alone Forms: Portal Instructions Chief Complaint: Headache Clinical Impression: Migraine Patient Disposition: Home, Self-Care Time of Disposition Decision: 18:41 Condition: Good Prescriptions / Home Meds: New ondansetron HCl 4 mg tablet 4 mg PO Q6H PRN (Reason: nausea and vomiting) Qty: 12 0RF No Action Vraylar 3 mg capsule 3 mg PO DAILY Acidophilus Capsule 100 mmu cells PO DAILY lamotrigine 100 mg tablet 100 mg PO DAILY meloxicam 15 mg tablet 15 mg PO DAILY propranolol 160 mg capsule,extended release 24 hr 160 mg PO Q24H rizatriptan 10 mg tablet 10 mg PO DAILY PRN (Reason: migraine headache) sertraline 100 mg tablet 100 mg PO BID trazodone 50 mg tablet 100 mg PO QPM PRN (Reason: sleep) cetirizine 10 mg tablet 10 mg PO DAILY PRN (Reason: allergy symptoms) aspirin [Adult Low Dose Aspirin] 81 mg tablet,delayed release (DR/EC) 81 mg PO BID 30 Days Qty: 60 0RF cefadroxil 500 mg capsule 500 mg PO BID 7 Days Qty: 14 0RF cholecalciferol (vitamin D3) 125 mcg (5,000 unit) capsule 125 mcg PO DAILY 90 Days Qty: 90 0RF alendronate [Fosamax] 70 mg tablet 70 mg PO QWEEK 84 Days Qty: 12 0RF oxycodone-acetaminophen [Percocet] 5-325 mg tablet 1 tab PO Q6H PRN (Reason: pain) 7 Days Qty: 28 0RF ondansetron 4 mg tablet,disintegrating 4 mg PO Q8H PRN (Reason: nausea and vomiting) 5 Days Qty: 15 0RF sennosides [Senna Laxative] 8.6 mg tablet 8.6 mg PO DAILY PRN (Reason: constipation) 7 Days Qty: 7 0RF tizanidine 2 mg tablet 2 mg PO TID PRN (Reason: muscle spasticity) 7 Days Qty: 21 0RF Print Language: Lebanese Instructions: Migraine Headache (ED) Referrals: Vickie Mcmahon DO [Physician] - As soon as possible CONCHITA ORTIZ [Primary Care Provider] - 1 week
[2024-06-15] MEDS: ACETAMINOPHEN 500 MG TABLET 1000 MG PO (18:42)
[2024-06-15] MEDS: KETOROLAC TROMETHAMINE 60 MG/2 ML VIAL IM (18:42)
[2024-06-15] MEDS: DIPHENHYDRAMINE HCL 25 MG CAPSULE 50 MG PO (18:53)
[2024-06-15] MEDS: PROMETHAZINE HCL 25 MG TABLET PO (18:53)
[2024-06-15] MEDS: CYCLOBENZAPRINE HCL 10 MG TABLET PO (18:53)
== END 2024-06-15 18:56 | disposition home or self-care (01) ==
PROVIDERS: Emergency Provider Emergency Medicine Emergency Medical Services; PCP Nurse Practitioner Family
DX: G43.909 Migraine, unspecified, not intractable, without status migrainosus (principal); Z90.710 Acquired absence of both cervix and uterus
CPT/HCPCS: 99283; J1885; Q0169

== ENCOUNTER 2024-09-04 15:50 | Outpatient (OUT) | payer OTHER, SELFPAY ==
--- NOTE | 2024-09-04 | XR_ITS ---
[address] [address] Patient Name: NOBLE CASTILLO MRN: [facility]:[id number] date: 1985 Sex: F Assigned Patient Location: [facility] Current Patient Location: Accession/Order Number: [id number] Exam Date: 09/04/2024 16:02 Report Date: 09/05/2024 06:56 At the request of: FABIENNE WALL Procedure: XR ankle AIDA min 3V EXAMINATION: XR foot IADA min 3V, XR ankle AIDA min 3V HISTORY: BILATERAL FOOT PAIN COMPARISON: No relevant comparison available. FINDINGS: RIGHT FINDINGS: BONES: Stable posterior calcaneal osteotomy with subtalar fusion. Wedge spacer placement medial cuneiform. Mild hallux valgus. Degenerative changes with marginal osteophyte formation SOFT TISSUES: Negative. No visible soft tissue swelling. OTHER: Negative. LEFT FINDINGS: BONES: Stable posterior calcaneal osteotomy with bony fusion. Fusion of the first tarsometatarsal joint with a medial plate and screws. One of the screws extends into the second metatarsal. Degenerative changes with marginal osteophyte formation most significant in the hindfoot and talonavicular joints SOFT TISSUES: Negative. No visible soft tissue swelling. OTHER: Negative. XR/XR ankle AIDA min 3V IMPRESSION: Bilateral stable degenerative and postsurgical changes with no mechanical failure Electronically authenticated by: EZIO FOLEY Date: 09/05/2024 06:56
--- NOTE | 2024-09-04 | XR_ITS ---
[address] [address] Patient Name: NOBLE CASTILLO MRN: [facility]:[id number] date: 1985 Sex: F Assigned Patient Location: [facility] Current Patient Location: Accession/Order Number: [id number] Exam Date: 09/04/2024 16:02 Report Date: 09/05/2024 06:56 At the request of: FABIENNE WALL Procedure: XR foot AIDA min 3V EXAMINATION: XR foot AIDA min 3V, XR ankle AIDA min 3V HISTORY: BILATERAL FOOT PAIN COMPARISON: No relevant comparison available. FINDINGS: RIGHT FINDINGS: BONES: Stable posterior calcaneal osteotomy with subtalar fusion. Wedge spacer placement medial cuneiform. Mild hallux valgus. Degenerative changes with marginal osteophyte formation SOFT TISSUES: Negative. No visible soft tissue swelling. OTHER: Negative. LEFT FINDINGS: BONES: Stable posterior calcaneal osteotomy with bony fusion. Fusion of the first tarsometatarsal joint with a medial plate and screws. One of the screws extends into the second metatarsal. Degenerative changes with marginal osteophyte formation most significant in the hindfoot and talonavicular joints SOFT TISSUES: Negative. No visible soft tissue swelling. OTHER: Negative. XR/XR foot AIDA min 3V IMPRESSION: Bilateral stable degenerative and postsurgical changes with no mechanical failure Electronically authenticated by: EZIO FOLEY Date: 09/05/2024 06:56
== END 2024-09-04 15:51 | disposition home or self-care (01) ==
LOC: RAD 15:50
PROVIDERS: PCP Nurse Practitioner Family; Visit Provider Podiatrist Foot & Ankle Surgery
DX: M25.571 Pain in right ankle and joints of right foot (principal); M25.572 Pain in left ankle and joints of left foot; M79.671 Pain in right foot; M79.672 Pain in left foot; M24.674 Ankylosis, right foot; M20.11 Hallux valgus (acquired), right foot; M24.675 Ankylosis, left foot; Z98.890 Other specified postprocedural states
CPT/HCPCS: 73610; 73630

== ENCOUNTER 2024-10-05 16:36 | Outpatient (RCR) | payer OTHER, SELFPAY | END 2024-10-30 14:25 | disposition home or self-care (01) | LOC: PT 16:36 | PROVIDERS: PCP Nurse Practitioner Family; Visit Provider Podiatrist Foot & Ankle Surgery | DX: S86.811D Strain of other muscle(s) and tendon(s) at lower leg level, right leg, subsequent encounter (principal); M76.821 Posterior tibial tendinitis, right leg; M76.822 Posterior tibial tendinitis, left leg; M79.672 Pain in left foot; M79.671 Pain in right foot; M25.571 Pain in right ankle and joints of right foot; M25.572 Pain in left ankle and joints of left foot | CPT/HCPCS: 97110; 97140; 97163 ==

== ENCOUNTER 2024-10-29 17:27 | Emergency (ER) | payer OTHER, SELFPAY ==
[2024-10-29 17:31] VITALS: BP 120/74; PULSE 80; TEMP 36.7; O2SAT 99; BMI 32.6
--- NOTE | 2024-10-29 18:00 | XR_ITS ---
[address] [address] Patient Name: NOBLE CASTILLO MRN: [facility]:[id number] date: 1985 Sex: F Assigned Patient Location: ER Current Patient Location: Accession/Order Number: [id number] Exam Date: 10/29/2024 17:52 Report Date: 10/29/2024 21:16 At the request of: BURKE AMADOR Procedure: XR foot RT min 3V EXAM: XR foot RT min 3V HISTORY: pain COMPARISON: 04/11/2024 FINDINGS/IMPRESSION: 1. No acute fracture or dislocation. 2. Mild degeneration of the interphalangeal joints. 3. Subtalar joint fusion screws. Unchanged osteotomy and spacer at the medial cuneiform bone. 4. Mild degeneration of the mid foot. 5. Small ankle joint effusion. Electronically authenticated by: RADHA GONZALEZ Date: 10/29/2024 21:16
--- NOTE | 2024-10-29 18:00 | XR_ITS ---
[address] [address] Patient Name: NOBLE CASTILLO MRN: [facility]:[id number] date: 1985 Sex: F Assigned Patient Location: ER Current Patient Location: Accession/Order Number: [id number] Exam Date: 10/29/2024 17:52 Report Date: 10/29/2024 21:17 At the request of: BURKE AMADOR Procedure: XR ankle RT min 3V EXAM: XR ankle RT min 3V HISTORY: pain COMPARISON: None. FINDINGS/IMPRESSION: 1. No acute fracture or dislocation. 2. Subtalar joint fusion screws. 3. Ankle mortise is maintained. 4. Subcutaneous soft tissue edema about the ankle. Electronically authenticated by: RADHA GONZALEZ Date: 10/29/2024 21:17
--- NOTE | 2024-10-29 19:49 | PC.NURSE ---
this patient complains of right ankle swelling, and burning sensation onset 1 week ago. this patient denies any recent falls, injury, or trauma to cause this ankle swelling
--- NOTE | 2024-10-29 19:58 | ED_ITS ---
HPI HPI - Extremity Injury (Lower) General Chief Complaint: Extremity Injury, Lower Stated Complaint: ankle pain Time Seen by Provider: 10/29/24 19:36 Source: patient Mode of arrival: walk-in History of Present Illness HPI Narrative: 39-year-old female presents to the emergency department with complaint of right foot pain. Locating to the outside, he will aspect of her foot. Notes associated swelling. Patient with history of extensive surgery on this foot in December to help correct flatfoot. Pain has been progressively worsening over the past 5 days. Called her foot and ankle specialist and was advised to present to the emergency department for evaluation and treatment. Quality:?Hurts Severity:?Moderate Timing:?As above, constant, worsening Context: Normal setting and activity? Modifying factors:?Pain worse with ambulating, palpation Associated symptoms: Swelling Related Data Home Medications ?Medication ?Instructions ?Recorded ?Confirmed Lactobacillus acidophilus 100 mmu cells PO DAILY 11/28/23 12/08/23 (Acidophilus capsule) cariprazine 3 mg capsule (Vraylar) 3 mg PO DAILY 11/28/23 12/08/23 cetirizine 10 mg tablet 10 mg PO DAILY PRN allergy symptoms 11/28/23 12/08/23 lamotrigine 100 mg tablet 100 mg PO DAILY 11/28/23 12/08/23 meloxicam 15 mg tablet 15 mg PO DAILY 11/28/23 12/08/23 propranolol 160 mg capsule,24 160 mg PO Q24H 11/28/23 12/08/23 hr,extended release rizatriptan 10 mg tablet 10 mg PO DAILY PRN migraine 11/28/23 12/08/23 headache sertraline 100 mg tablet 100 mg PO BID 11/28/23 12/08/23 trazodone 50 mg tablet 100 mg PO QPM PRN sleep 11/28/23 12/08/23 Previous Rx's ?Medication ?Instructions ?Recorded alendronate 70 mg tablet (Fosamax) 70 mg PO QWEEK 12 weeks #12 tabs 12/09/23 aspirin 81 mg tablet,delayed 81 mg PO BID 30 days #60 tabs 12/09/23 release (Adult Low Dose Aspirin) cefadroxil 500 mg capsule 500 mg PO BID 7 days #14 caps 12/09/23 cholecalciferol (vitamin D3) 125 125 mcg PO DAILY 90 days #90 caps 12/09/23 mcg (5,000 unit) capsule ondansetron 4 mg disintegrating 4 mg PO Q8H PRN nausea and 12/09/23 tablet vomiting 5 days #15 tabs oxycodone-acetaminophen 5 mg-325 1 tab PO Q6H PRN pain 7 days #28 12/09/23 mg tablet (Percocet) tabs sennosides 8.6 mg tablet (Senna 8.6 mg PO DAILY PRN constipation 7 12/09/23 Laxative) days #7 tabs tizanidine 2 mg tablet 2 mg PO TID PRN muscle spasticity 12/09/23 7 days #21 tabs ondansetron HCl 4 mg tablet 4 mg PO Q6H PRN nausea and 06/15/24 vomiting #12 tabs hydrocodone 5 mg-acetaminophen 325 1 tab PO Q8H PRN pain 3 days #8 10/29/24 mg tablet tabs prednisone 20 mg tablet 20 mg PO DAILY 5 days #5 tabs 10/29/24 Allergies Allergy/AdvReac Type Severity Reaction Status Date / Time adhesive tape Allergy Severe Verified 11/28/23 09:14 povidone-iodine (From Allergy Rash Verified 11/28/23 09:14 Betadine) codeine AdvReac Vomiting Verified 11/28/23 09:14 Opioid HPI Opioid Management Most Recent Pain and Opioid Data: Last Pain Scale 9 06/15/24 18:42 06/15/24 Last Pain Intensity 8 12/09/23 08:14 12/09/23 Review of Systems ROS Narrative CONST: Denies activity change, weakness MS: + arthralgias.? 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 - Congenital deformity of feet, unspecified, unspecified foot (ICD- 10) 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 - Other congenital varus deformities of feet, unspecified foot (ICD- 10) Equinus contracture of right ankle ?M24.571 - Contracture, right ankle (ICD-10) Osteoarthritis of right ankle and foot ?M19.071 - Primary osteoarthritis, right ankle and foot (ICD-10) Eversion deformity of right foot ?M21.071 - Valgus deformity, not elsewhere classified, right ankle (ICD-10) Posterior tibial tendon dysfunction ?M76.829 - Posterior tibial tendinitis, unspecified leg (ICD-10) Insomnia ?G47.00 - Insomnia, unspecified (ICD-10) Depression ?F32.A - Depression, unspecified (ICD-10) Anxiety ?F41.9 - Anxiety disorder, unspecified (ICD-10) COVID-19 ?U07.1 - COVID-19 (ICD-10) Migraine ?G43.909 - Migraine, unspecified, not intractable, without status migrainosus (ICD-10) Kidney stones ?N20.0 - Calculus of kidney (ICD-10) Seasonal allergies ?J30.2 - Other seasonal allergic rhinitis (ICD-10) Heartburn ?R12 - Heartburn (ICD-10) IBS (irritable bowel syndrome) ?K58.9 - Irritable bowel syndrome without diarrhea (ICD-10) Encounter for removal of skin lesion ?L98.9 - Disorder of the skin and subcutaneous tissue, unspecified (ICD-10) Surgical History (Updated 12/09/23 @ 09:51 by Marleni Butler NP) History of wisdom tooth extraction ?K08.409 - Partial loss of teeth, unspecified cause, unspecified class (ICD- 10) History of colonoscopy ?Z98.890 - Other specified postprocedural states (ICD-10) History of esophagogastroduodenoscopy (EGD) ?Z98.890 - Other specified postprocedural states (ICD-10) H/O sinus surgery ?Z98.890 - Other specified postprocedural states (ICD-10) History of nasal septoplasty ?Z98.890 - Other specified postprocedural states (ICD-10) H/O lumpectomy ?Z98.890 - Other specified postprocedural states (ICD-10) History of endometrial ablation ?Z98.890 - Other specified postprocedural states (ICD-10) History of dilation and curettage ?Z98.890 - Other specified postprocedural states (ICD-10) History of cholecystectomy ?Z90.49 - Acquired absence of other specified parts of digestive tract (ICD- 10) History of tonsillectomy ?Z90.89 - Acquired absence of other organs (ICD-10) History of hysterectomy ?Z90.710 - Acquired absence of both cervix and uterus (ICD-10) History of foot surgery (2018) ?Z98.890 - Other specified postprocedural states (ICD-10) History of foot surgery (03/02/21) ?Z98.890 - Other specified postprocedural states (ICD-10) Family History (Updated 11/28/23 @ 09:29 by Tina Chen NP) Other Family history of cervical cancer Family history of diabetes mellitus Family history of hypertension Family history of lung cancer Family history of myocardial infarction Family history of ovarian cancer Social History (Updated 11/28/23 @ 09:20 by Tina Chen NP) Within the past year, how often did you have a drink containing alcohol: never Score interpretation: A score less than 3 is consistent with normal alcohol consumption. 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 HENT: normocephalic, atraumatic. CV: 2+ palpable left DP pulse MS: Right foot and ankle: +tenderness, swelling to the lateral heel aspect of her foot with extension over the lateral malleolus. Tenderness is minimal.? Well healed scarring from prior surgery present. No tenderness to the remainder of the foot, medial malleolus, posterior process.? No ecchymosis, discoloration, crepitus, deformity, instability, warmth.? Active ROM is full with do rsiflexion, plantarflexion Strength 5/5 NEURO: Sensory intact throughout and distal to the injury SKIN: intact, warm, dry.? No wound PSYCHIATRIC: normal mood, affect Constitutional Vital Signs, click to edit/add: Last Vital Signs Temp 98.1 F 10/29/24 17:31 Pulse 80 10/29/24 17:31 Resp 18 10/29/24 17:31 BP 120/74 10/29/24 17:31 Pulse Ox 99 10/29/24 17:31 O2 Del Method Room Air 10/29/24 17:31 Course Vital Signs Vital signs: Vital Signs Temperature 98.1 F 10/29/24 17:31 Pulse Rate 80 10/29/24 17:31 Respiratory Rate 18 10/29/24 17:31 Blood Pressure 120/74 10/29/24 17:31 Pulse Oximetry 99 10/29/24 17:31 Oxygen Delivery Method Room Air 10/29/24 17:31 Temperature 98.1 F 10/29/24 17:31 Pulse Rate 80 10/29/24 17:31 Respiratory Rate 18 10/29/24 17:31 Blood Pressure 120/74 10/29/24 17:31 Pulse Oximetry 99 10/29/24 17:31 Oxygen Delivery Method Room Air 10/29/24 17:31 MDM - Extremity Injury (Lower) MDM Narrative Medical decision making narrative: This is a pleasant 39-year-old female who presents to the emergency department for evaluation of right foot and ankle On arrival, afebrile, vital signs stable. On exam, nontoxic, well appearing patient, in no apparent distress. She has mild tenderness, swelling over the lateral aspect of her ankle and foot. Range of motion full. Neurovascularly intact Right foot and ankle x-ray imaging, per my read reveals no acute fracture, dislocation, or other acute abnormality Favor nonspecific foot and ankle pain status post surgery Fracture, dislocation less likely based on imaging History and Record Review Additional records reviewed: No prior records Management Independent interpretation: As above Disposition ? The patient was discharged. Prescriptions sent to pharmacy: [place] and prednisone. Patient states prednisone has helped with inflammation in her foot in the past Patient was given crutches Patient advised rest, ice, elevation, compression Plan: Patient will be discharged to home. Condition at time of disposition: stable ? Advised to follow up with her foot and ankle specialist . Advised to return for any worsening and/or development of new, concerning signs or symptoms PLEASE NOTE: Portions of the medical record may have been produced using electronic gear milling machine set up operator and may contain errors with respect to translation of words which may not have been identified prior to finalization of the chart. Lab Data Attestation: I reviewed the patient's lab results. ECG Data Attestation: I personally reviewed and interpreted this ECG as follows: (no fx, dislocation, or other acute abnormality) Discharge Plan Discharge Chief Complaint: Extremity Injury, Lower Clinical Impression: Acute pain of right foot, Acute right ankle pain Patient Disposition: Home, Self-Care Time of Disposition Decision: 20:06 Condition: Good Mode of Transportation: Private Vehicle Prescriptions / Home Meds: New hydrocodone-acetaminophen 5-325 mg tablet 1 tab PO Q8H PRN (Reason: pain) 3 Days Qty: 8 0RF prednisone 20 mg tablet 20 mg PO DAILY 5 Days Qty: 5 0RF No Action ondansetron HCl 4 mg tablet 4 mg PO Q6H PRN (Reason: nausea and vomiting) Qty: 12 0RF Vraylar 3 mg capsule 3 mg PO DAILY Acidophilus Capsule 100 mmu cells PO DAILY lamotrigine 100 mg tablet 100 mg PO DAILY meloxicam 15 mg tablet 15 mg PO DAILY propranolol 160 mg capsule,extended release 24 hr 160 mg PO Q24H rizatriptan 10 mg tablet 10 mg PO DAILY PRN (Reason: migraine headache) sertraline 100 mg tablet 100 mg PO BID trazodone 50 mg tablet 100 mg PO QPM PRN (Reason: sleep) cetirizine 10 mg tablet 10 mg PO DAILY PRN (Reason: allergy symptoms) aspirin [Adult Low Dose Aspirin] 81 mg tablet,delayed release (DR/EC) 81 mg PO BID 30 Days Qty: 60 0RF cefadroxil 500 mg capsule 500 mg PO BID 7 Days Qty: 14 0RF cholecalciferol (vitamin D3) 125 mcg (5,000 unit) capsule 125 mcg PO DAILY 90 Days Qty: 90 0RF alendronate [Fosamax] 70 mg tablet 70 mg PO QWEEK 84 Days Qty: 12 0RF oxycodone-acetaminophen [Percocet] 5-325 mg tablet 1 tab PO Q6H PRN (Reason: pain) 7 Days Qty: 28 0RF ondansetron 4 mg tablet,disintegrating 4 mg PO Q8H PRN (Reason: nausea and vomiting) 5 Days Qty: 15 0RF sennosides [Senna Laxative] 8.6 mg tablet 8.6 mg PO DAILY PRN (Reason: constipation) 7 Days Qty: 7 0RF tizanidine 2 mg tablet 2 mg PO TID PRN (Reason: muscle spasticity) 7 Days Qty: 21 0RF Print Language: Estonian Instructions: Arthralgia (ED) Referrals: Philip Guerra DPM [Physician] - 10/30/24 Discharge Date/Time: 10/29/24 20:18
--- NOTE | 2024-10-29 20:08 | PC.NURSE ---
i applied a akiko wrap to this patient's right ankle. this patient voices that she a pair of crutches at home. this patient voices no conerns
--- NOTE | 2024-10-29 20:14 | PC.NURSE ---
i gave this patient verbal and written discharge orders along with 2 e-scripts, this patient voices yes to understanding these. at time of discharge this patient voices no concerns and shows no signs of distress. i did offer to get this patient at time of discharge but this patient declined. i also told this patient not drive a automobile, go to work, operate any machinery while taking the pain medication
== END 2024-10-29 20:18 | disposition home or self-care (01) ==
PROVIDERS: Emergency Provider Emergency Medicine; PCP Nurse Practitioner Family
DX: M79.671 Pain in right foot (principal); M25.571 Pain in right ankle and joints of right foot; Z90.49 Acquired absence of other specified parts of digestive tract; Z90.710 Acquired absence of both cervix and uterus
CPT/HCPCS: 73610; 73630; 99284

== ENCOUNTER 2024-10-31 10:43 | Outpatient (RCR) | payer OTHER, SELFPAY | END 2024-11-01 08:36 | disposition home or self-care (01) | LOC: PT 10:43 | PROVIDERS: PCP Nurse Practitioner Family; Visit Provider Podiatrist Foot & Ankle Surgery | DX: S86.811D Strain of other muscle(s) and tendon(s) at lower leg level, right leg, subsequent encounter (principal) ==

== ENCOUNTER 2024-11-09 12:21 | Outpatient (OUT) | payer OTHER, SELFPAY ==
--- NOTE | 2024-11-09 12:24 | MR_ITS ---
[place] [id number] Patient Name: NOBLE CASTILLO MRN: [facility]:[id number] date: 1985 Sex: F Assigned Patient Location: MRI Current Patient Location: MRI Accession/Order Number: [id number] Exam Date: 11/09/2024 12:35 Report Date: 11/09/2024 16:27 At the request of: FABIENNE WALL Procedure: MR ankle RT wo con EXAM: MR ankle RT wo con HISTORY: posterior tibial tendonitis M76.821 COMPARISON: 10/12/2023 TECHNIQUE: MRI images obtained with multiple sequences. MRI of the right ankle without contrast. Sequences obtained by standard department protocol. FINDINGS: Achilles tendon is intact. Plantar fascia is intact. Screw fixation of the subtalar joint with surrounding susceptibility artifact. No apparent hardware complication by this modality. Normal alignment of the ankle joint. Small ankle joint effusion. Extensor and peroneal tendons are intact. There is thickening of the tibialis posterior tendon, may represent tendinosis. The flexor digitorum longus and flexor hallucis longus tendons are intact. Anterior and posterior syndesmotic ligaments are intact. Anterior talofibular, posterior talofibular and calcaneofibular ligaments are intact. Deltoid ligament fibers are intact. No abnormal signal of the plantar musculature. No acute fractures. MR/MR ankle RT wo con IMPRESSION: 1. There is thickening of the tibialis posterior tendon, may represent tendinosis. 2. Screw fixation of the subtalar joint with surrounding susceptibility artifact. No apparent hardware complication by this modality. 3. No acute ligamentous abnormality Electronically authenticated by: RADHA GONZALEZ Date: 11/09/2024 16:27
--- OUTSIDE RECORDS SUMMARY | 2024-11-09 12:39 | XMS_ITS | CCD ---
Author Organization [facility] Care Team Providers Care Hand Fabric Cutter Name Role Phone Eric ([facility])Kit Attending Provider Dewayne James Attending Provider Ame Zaragoza Primary Care Provider [phone] Costa Armando Attending Provider Christiana Martel Unavailable Sera Lares Unavailable Ame Zaragoza Unavailable KRISTIN Zaragoza Attending Provider NO FAMILY, PHYSICIAN Primary Care Provider Unava ilable Debra Celestin Unavailable tatiana Marleni Unavailable NO FAMILY, PHYSICIAN Primary Care Provider Unava ilable KRISTIN Zaragoza Attending Provider [phone] DO Lambert Gavin Attending Provider KRISTIN Zaragoza Primary Care Provider NO FAMILY, PHYSICIAN Primary Care Provider Unava ilable KRISTIN Zaragoza Attending Provider KRISTIN Zaragoza Primary Care Provider DO Lambert Gavin Attending Provider MD Alexis Lincoln Attending Provider [phone] CONOR BEAL Primary Care Physician FARHEEN STRATTON Attending Unavailable FARHEEN STRATTON Admitting Unavailable Donald Cannon Consulting Unavailable NIK, AME Primary Care Unavailable FARHEEN STRATTON Consulting Unavailable MISC, DR GUERRERO Admitting Unavailable MISC, DR GUERRERO Consulting Unavailable NIK, AME Primary Care Unavailable MISC, DR GUERRERO Attending Unavailable NIK, AME Admitting Unavailable NIK, AME Primary Care Unavailable NIK, AME Consulting Unavailable NIK, AME Attending Unavailable NADERER, DR CONOR Medina Primary Care Unavailable HIGHLANDER, FABIENNE Mahajan Attending Unavailable ZIEBTIERNEY, [...] Admitting Unavailable Nik, Ame Primary Care Unavailable Cnog Cobian Attending Unavailable Nik, Ame Primary Care Unavailable Nik, Ame Primary Care Unavailable Abhi Finney Attending Unavailable Abhi Finney Admitting Unavailable Nik, Ame Primary Care Unavailable Ml Chisholm Unavailable KRISTIN Zaragoza Ame Primary Care Provider [facility] G[facility] Guerra Attending Provider Ame Zaragoza Primary Care Unavailable Charlie, Fabienne Mahajan Attending Unavailable Fabienne Guerra Admitting Unavailable KRISTIN Zaragoza [facility] Mahajan Attending Provider [phone] AME ZARAGOZA Primary Care Physician Lester Mcelroy Attending Unavailable NIK, AME Primary Care Unavailable Lester Mcelroy Admitting Unavailable Lester Mcelroy Attending Unavailable NIK, AME Primary Care Unavailable Lester Mcelroy Admitting Unavailable NIK, AME Primary Care Unavailable Lester Mcelroy Admitting Unavailable Lester Mcelroy Attending Unavailable Lester Mcelroy Attending Unavailable AME ZARAGOZA Primary Care Unavailable Lester Mcelroy Attending Unavailable Lester Mcelroy Admitting Unavailable AME ZARAGOZA Primary Care Unavailable Unallocated MD, Noms Provider Primary Care Provi concepción Unallocated MD, Noms Provider Primary Care Provi concepción Akira Gavin DO Unavailable MINERVA-NOSSEK CHELSEA Quintin Attending Unavailab le MINERVA-NOSSEK, CHELSEA M Attending Unavailab le MINERVA-NOSSEK, CHELSEA M Attending Unavailab le LUIS EDUARDO SERRATO Attending Unavailable MINERVA-NOSSEK, CHELSEA M Attending Unavailab le BERGER, ISAAK Attending Unavailable BERGER, ISAAK Attending Unavailable BERGER, ISAAK Attending Unavailable MINERVA-NOSSEK, CHELSEA M Attending Unavailab le BERGER, ISAAK Attending Unavailable BERGER, ISAAK Attending Unavailable BERGER, ISAAK Attending Unavailable ERICKA AGUILAR Attending Unavailable MINERVA-NOSSEK, CHELSEA M Attending Unavailab le MINERVA-NOSSEK, CHELSEA M Attending Unavailab CHRISTINE Bruner Attending Unavailable Unavailable Unavailable Unavailable Allergies Allergy Classification Reported Allergen(s) Allergy Type Date of Onset Reaction(s) Facility Opioid Agonists (3 sources) Codeine; 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: [codeine] Drug Allergy Unknown (qualifier value) [facility] Povidone-Iodine (3 sources) Povidone-Iodine ; 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: [povidone iodine topical] Drug Allergy Unknown (qualifier value) [facility] (9 sources) Adhesive Tape; 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: [Adhesive tape] Allergy to substance 4 Rash/itching [facility] Comment on above: states anything [place]ic [place] causes itching/rash (7 sources) paper tape Allergy to substance 1 Rash/itching [facility] (20 sources) Codeine; 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: [codeine] Drug Allergy 8 Unknown (qualifier value), GI intolerance, Unknown [facility] (20 sources) Povidone-Iodine ; 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: [povidone iodine topical] Drug Allergy 8 Unknown (qualifier value), Rash, Itching [facility] (13 sources) bandaids Propensity to adverse reactions rash [employer] Other (16 sources) Polyester Propensity to adverse reactions 3 [facility] (6 sources) Povidone-Iodine ; 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: [Betadine] Drug Allergy 2 itchy rash [facility] (6 sources) Adhesive bandage; 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: [Adhesive Bandage] Drug allergy Unknown (qualifier value) [facility] (2 sources) Codeine Drug Allergy 2 [facility] (1 source) Adhesive Tape; 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: [Tape] Propensity to adverse reactions to drug (disorder) [facility] (3 sources) Adhesive agent Allergy to substance 3 [facility] (17 sources) Wound Dressing Adhesive Drug Allergy 0 Rash, Unknown [facility] Medications Current Medications Medication Drug Class(es) Dates Sig (Normalized) Sig (Original) Fioricet (1 source) Barbiturate, Central Nervous System Stimulant, Methylxanthine Start: 04-16-2019 Fioricet Oral, q4hr, Refill(s) 0, Headache Start Date: 04/16/19 Status: Ordered ajovi (1 source) Start: 09-19-2024 ajovi Active SUBCUT every week September 19, 2024 12:00am alendronic acid 70 mg oral tablet (3 sources) Bisphosphonate Start: 12-09-2023 take 1 tablet by mouth every week alendronate (Fosamax) 70 MG tablet Take 70 mg by mouth 1 (one) time per week 12/09/2023 Active Marquita Allergy 180 MG (8 sources) take [...] Prophylaxis Start Date: 04/16/19 Status: Ordered cariprazine 1.5 mg oral capsule (20 sources) Atypical Antipsychotic Start: 08-09-2024 End: 12-06-2024 take 1 capsule by mouth once daily Cariprazine HCl (Vraylar) 1.5 MG capsule Indications: Bipolar II disorder, most recent episode major depressive (CMS/HCC) Take 1.5 mg by mouth Daily 30 capsule 1 11/06/2024 12/06/2024 Active Start: 11-25-2020 End: 09-19-2024 take 1 capsule by mouth once daily at bedtime Cariprazine (Vraylar) 3 mg capsule Active 1.5 MG PO Daily at bedtime September 19, 2024 4:39pm take 1 capsule by [facility] every twenty-four hours Vraylar 4.5 MG 1 capsule Orally Once a day Active Vraylar Active [facility] oral tablet (4 sources) Start: 04-16-2019 take 1 tablet by mouth once daily [facility] oral tablet 1 tab(s), Oral, Daily, Refill(s) 0, Prophylaxis Start Date: 04/16/19 Status: Ordered cetirizine hydrochloride 10 mg oral tablet (17 sources) Histamine-1 Receptor Antagonist take 1 tablet by mouth once daily cetirizine (ZyrTEC) 10 MG tablet Take 10 mg by mouth Daily Active colesevelam hydrochloride 625 mg oral tablet (3 sources) Bile Acid Sequestrant Start: 04-09-2024 take 3 tablets by mouth twice daily Welchol 625 mg Tab 1,875 mg = 3 tab(s), Oral, BID, # 540 tab(s), Refills(s) 0, Pharmacy: [facility]/pharmacy #[id number], 162, cm, 04/09/24 13:38:00 EDT, Height/Length Dosing, 99.2, kg, 04/09/24 13:38:00 EDT, Weight Dosing Start Date: 04/09/24 Status: Ordered fexofenadine hydrochloride 180 mg oral tablet (1 source) Histamine-1 Receptor Antagonist take 1 tablet by mouth once daily Marquita Allergy 180 MG 1 tablet Swallow whole with water; do not take with fruit juices. Orally Once a day Active fluticasone propionate 0.05 mg/actuat metered dose nasal spray (13 sources) Corticosteroid Start: 02-26-2024 take 2 spray(s) nasal route once daily fluticasone (Flonase) 50 MCG/ACT nasal spray Administer 2 sprays into each nostril Daily 02/26/2024 Active Start: 02-26-2024 End: 09-19-2024 take 1 spray(s) nasal route once daily Fluticasone Propionate 50 mcg/actuation spray,suspension Discontinued 2 SPRAY INTRANASAL Daily February 25, 2024 11:00pm September 19, 2024 4:39pm administer into each nostril 1.5 ml fremanezumab-vfrm 150 mg/ml auto-injector (12 sources) Start: 07-17-2024 End: 01-13-2025 fremanezumab (Ajovy) 225 MG/1.5ML auto-injector Indications: Chronic migraine without aura without status migrainosus, not intractable (CMS/HCC) Inject 1 pen (225 mg) under the skin every 30 (thirty) days 1.5 mL 5 07/17/2024 01/13/2025 Active hydrOXYzine (20 sources) Antihistamine Start: 04-16-2019 hydrOXYzine Or al, TID, Refills(s) 0, Anxiety Start Date: 04/16/19 Status: Ordered take 1 capsule by mo uth every eight hours as needed for anxiety hydrOXYzine pamoate (Vistaril) 50 MG capsule Take 50 mg by mouth every 8 (eight) hours if needed for anxiety (take 1 tablet Q8h as needed). Active ibuprofen 600 mg oral tablet (15 sources) Nonsteroidal Anti-inflammatory Drug Start: 11-27-2020 take 1 tablet by mouth every six hours as needed for pain Ibuprofen 600 mg tablet Active 600 MG PO Q6H as needed for pain November 27, 2020 12:00am take 1 tablet by jerri th three times daily at mealtime as needed Ibuprofen 400 MG 1 tablet with food or m ilk as needed Orally Three times a day Not-Taking/PRN lamoTRIgine 150 mg oral tablet (20 sources) Mood Stabilizer, Anti-epileptic Agent Start: 02-26-2024 End: 12-04-2024 take 1 tablet by mouth once daily lamoTRIgine (LaMICtal) 150 MG tablet Indications: Bipolar II disorder, most recent episode major depressive (CMS/HCC) Take 1 tablet (150 mg) by mouth Daily 90 tablet 09/05/2024 12/04/2024 Active Start: 11-25-2020 End: 09-19-2024 take 1 mg by mouth twice daily Lamictal 150 mg Tab mg tab(s), Oral, BID, Refills(s) 0 Start Date: 04/09/24 Status: Ordered take 1 tablet by jerri th every twenty-four hours LaMICtal 100 MG 1 tablet Orally Once a day Active take 1 tablet by jerri th every twenty-four hours lamoTRIgine 50 MG 1 tablet Orally Once a day Active take 1 tablet by jerri th every twenty-four hours lamoTRIgine 200 MG 1 tablet Orally Once a day Active Amqgxozgsx-Yhgrfxz-Dmqkhhxno in (Folinic-Plus) 4-50-2 mg tablet (7 sources) Start: 11-25-2020 take 1 tablet by mouth once daily Shrkrujeha-Tuvxubn-Nfujeyxptry (Folinic-Plus) 4-50-2 mg tablet Active 1 TAB PO Daily November 25, 2020 10:32am Start: 11-25-2020 End: 09-19-2024 take 1 tablet by mouth once daily Arzgssgvsf-Dsmagaw-Aupgbcxtmub (Folinic- Plus) 4-50-2 mg tablet Discontinued 1 TAB PO Daily November 25, 2020 12:00am September 19, 2024 4:40pm Start: 11-25-2020 take 1 tablet by jerri th once daily Ohkawcvfwh-Rcefpxj-Osqqtouewft (Folinic- Plus) 4-50-2 mg tablet Active 1 TAB PO Daily November 25, 2020 12:00am Start: 11-25-2020 take 1 tablet by jerri th once daily Wzliqawjaq-Fpmimtk-Wcwcylczybt (Folinic- Plus) 4-50-2 mg tablet Active 1 [...] Status: Ordered meloxicam 15 mg oral tablet (7 sources) Nonsteroidal Anti-inflammatory Drug Start: 09-04-2024 take 1 tablet by mouth once daily meloxicam (Mobic) 15 MG tablet Take 15 mg by mouth Daily 09/04/2024 Active take 1 tablet by [facility] every twenty-four hours Meloxicam 15 MG 1 tablet Orally Once a day Active nitroglycerin 0.004 mg/mg rectal ointment (1 source) Nitrate Vasodilator Start: 06-28-2019 Rectiv 0.4% rectal ointment 1 suraj, Rectal, q12hr, 30 gram, Refill(s) 0, [facility] [facility]. Start Date: 06/28/19 Status: Ordered [place]-3 (1 source) Start: 04-16-2019 [place]-3 Oral, Daily, Refill(s) 0, Prophylaxis Start Date: 04/16/19 Status: Ordered [place]-3 Fatty Acids (Fish Oil Concentrate) 1,000 mg Capsule (7 sources) Start: 11-25-2020 take 1 capsule by mouth once daily [place]-3 Fatty Acids (Fish Oil Concentrate) 1,000 mg Capsule Active 1000 MG PO Daily November 25, 2020 10:35am Start: 11-25-2020 End: 09-19-2024 take 1 capsule by mouth once daily [place]-3 Fatty Acids (Fish Oil Concentrate) 1,000 mg Capsule Discontinued 1000 MG PO Daily November 25, 2020 12:00am September 19, 2024 4:40pm Start: 11-25-2020 take 1 capsule by [facility] once daily [place]-3 Fatty Acids (Fish Oil Concentrate) 1,000 mg Capsule Active 1000 MG PO Daily November 25, 2020 12:00am Start: 11-25-2020 take 1 capsule by [facility] once daily [place]-3 Fatty Acids (Fish Oil Concentrate) 1,000 mg [...] 4 days Jul, Active pantoprazole 40 mg oral granules (20 sources) Proton Pump Inhibitor Start: 09-19-2024 take 40 mg by mouth once daily Pantoprazole (Protonix) [address] for susp in packet Active 40 MG PO Daily September 19, 2024 12:00am Start: 04-09-2024 take 1 tablet by jerri th before mealtime Protonix 40 MG EC tablet Take 40 mg by mouth in the morning. Take before meals. 04/09/2024 Active predniSONE 20 mg oral tablet (14 sources) Start: 10-29-2024 take 1 tablet by mouth once daily predniSONE (Deltasone) 20 MG tablet Take 20 mg by mouth Daily 10/29/2024 Active Start: 09-04-2024 take 1 tablet by jerri th in the morning predniSONE (Deltasone) 10 MG tablet Take 10 mg by mouth in the morning and 10 mg before bedtime. 09/04/2024 Active Start: 08-10-2023 take 1 tablet by jerri th every twelve hours predniSONE 20 MG 1 tablet Orally bid for 5 day(s) Jul, Not-Taking/PRN predniSONE Activ e Probiotic (13 sources) Probiotic Active Probiotic Formula (Bacillus Coagulans) (4 sources) Start: 9 take 1 capsule by mouth once daily Probiotic Formula (Bacillus Coagulans) 1 cap(s), Oral, Daily, Refill(s) 0, Prophylaxis Start Date: 04/16/19 Status: Ordered 24 hr propranolol hydrochloride 120 mg extended release oral capsule (20 sources) beta-Adrenergic Gricel Start: take 1 capsule by mouth once daily propranolol LA (Inderal LA) 120 MG 24 hr capsule Indications: Chronic migraine without aura without status migrainosus, not intractable (CMS/HCC) , Tremor Take 1 capsule (120 mg) by mouth Daily Do not crush, chew, or split. 30 capsule 1 11/01/2024 Active Start: 04-09-2024 propranolol 16 0 mg, Refills(s) 0 Start Date: 04/09/24 Status: Ordered Start: 02-26-2024 End: 11-01-2024 take 1 capsule by mouth once daily propranolol LA (Inderal LA) 160 MG 24 hr capsule Indications: Tremor of right hand TAKE 1 CAPSULE BY MOUTH EVERY DAY 90 capsule 08/06/2024 11/01/2024 Discontinued (Therapy completed) 1 mg dose 1.5 ml semaglutide 1.34 mg/ml pen injector (18 sources) Start: 09-19-2024 inject 1 mg by subcutaneous injection every week Semaglutide 1 mg/dose (2 mg/1.5 mL) pen injector Active 1 MG SUBCUT every week September 19, 2024 12:00am inject 0.5 mg by sub cutaneous injection every week semaglutide (Ozempic) 2 MG/1.5ML solutio n pen-injector Inject 0.5 mg under the skin 1 (one) time per week Active sertraline 100 mg oral tablet (20 sources) Serotonin Reuptake Inhibitor Start: 04-25-2024 End: 12-04-2024 take 1.5 tablets by mouth once daily sertraline (Zoloft) 100 MG tablet Indications: Bipolar II disorder, most recent episode major depressive (CMS/HCC) Take 1.5 tablets (150 mg) by mouth Daily 135 tablet 09/05/2024 12/04/2024 Active Start: 04-09-2024 Zoloft Oral, D aily, Refills(s) 0 Start Date: 04/09/24 Status: Ordered Start: 11-25-2020 End: 09-19-2024 take 1 tablet by mouth once daily Sertraline (Zoloft) 100 mg tablet Discontinued 100 MG PO Daily February 25, 2024 11:00pm September 19, 2024 4:40pm take 2 tablets by [facility] every twenty-four hours Sertraline HCl 100 MG 2 tablets Orally Once a day Active Sertraline HCl A ctive topiramate 25 mg oral tablet (1 source) Start: 04-16-2019 take 1 tablet by mouth twice daily Topamax 25 mg Tab 25 mg = 1 tab(s), Oral, BID, Refills(s) 0, Migraine headache Start Date: 04/16/19 Status: Ordered traMADol hydrochloride 50 mg oral tablet (6 sources) Opioid Agonist Start: 11-27-2020 take 1 tablet by mouth every six hours as needed for pain Tramadol 50 mg tablet Active 50 MG PO Q6H as needed for pain 19 03November 27, 2020 12:00am traZODone hydrochloride 50 mg oral tablet (20 sources) Serotonin Reuptake Inhibitor Start: 11-17-2023 End: 12-04-2024 take 2 tablets by mouth at bedtime traZODone (Desyrel) 50 MG tablet Indications: Insomnia, unspecified type Take 2 tablets (100 mg) by mouth at bedtime 180 tablet 09/05/2024 12/04/2024 Active Start: 11-25-2020 take 1 tablet by jerri th once daily at bedtime as needed Trazodone 50 mg tablet Active 50 MG PO Daily at bedtime as needed for Insomnia November 25, 2020 12:00am Tri Femynor (1 source) Start: 04-16-2019 take 1 tablet by mouth once daily Tri Femynor 1 tab(s), Oral, Daily, Refill(s) 0, control/menstrual regulation Start Date: 04/16/19 Status: Ordered Vitamin D3-Vitamin K2 (Dosoquin) 5,500-200 unit-mcg Tablet (7 sources) Start: 11-25-2020 take 1 tablet by mouth once daily Vitamin D3-Vitamin K2 (Dosoquin) 5,500-200 unit-mcg Tablet Active 1 TAB PO Daily November 25, 2020 10:35am Start: 11-25-2020 End: 09-19-2024 take 1 tablet by mouth once daily Vitamin D3-Vitamin K2 (Dosoquin) 5,500-200 unit-mcg Tablet Discontinued 1 TAB PO Daily November 25, 2020 12:00am September 19, 2024 4:39pm Start: 11-25-2020 take 1 tablet by jerri th once daily Vitamin D3-Vitamin K2 (Dosoquin) 5,500-200 unit-mcg Tablet Active 1 TAB PO Daily November 25, 2020 12:00am Start: 11-25-2020 take 1 tablet by jerri th once daily Vitamin D3-Vitamin K2 (Dosoquin) 5,500-200 unit-mcg Tablet Active 1 TAB PO Daily November 25, 2020 1:00am Completed/Discontinued Medications Medication Drug Class(es) Dates Sig (Normalized) Sig (Original) [id number] 200 actuat albuterol 0.09 mg/actuat metered dose [...] hours for 14 days Jul, Not-Taking amoxicillin 500 mg oral capsule (1 source) Penicillin-class Antibacterial Start: 02-26-2024 End: 09-19-2024 take 1 capsule by mouth three times daily Amoxicillin 500 mg capsule Discontinued 500 MG PO Three times daily 20 05February 25, 2024 11:00pm September 19, 2024 4:39pm amoxicillin 875 mg / clavulanate 125 mg [...] Start: 04-16-2019 take 1 tablet by jerri th once daily cholecalciferol 1000 intl units oral [...] a day for 2 day(s) Apr, Not-Taking 1 ml promethazine hydrochloride 25 mg/ml injection (7 sources) Phenothiazine Start: 07-10-2022 Promethazine HCl Jul, 25 mg rizatriptan 10 mg oral tablet (20 sources) Serotonin-1b and Serotonin-1d Receptor Agonist Start: 02-26-2024 End: 09-19-2024 take 3 tablets by mouth every twenty-four hours as needed Rizatriptan (Maxalt) 10 mg tablet Discontinued 10 MG PO EVERY 2-4 HOURS as needed February 25, 2024 11:00pm September 19, 2024 4:40pm do not exceed 3 doses per 24 hrs Start: 04-16-2019 rizatriptan ML T (Maxalt-CASKET ASSEMBLER METAL) 10 MG disintegrating tablet dissolve 1 tablet by mouth once daily MAY REPEAT ONCE, 2 HOURS LATER. *10 DAY SUPPLY 04/16/2019 Active Toradol 30 mg/ml (7 sources) Start: 07-10-2022 [...] [Lower abdominal pain, unspecified] Onset: 4 Episodic Adjustment disorders (17 sources) Adjustment disorder with mixed anxiety and depressed mood; 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: [Adjustment disorder with mixed anxiety and depressed mood] Onset: 4 05-11-2024 Chronic Anxiety disorders (20 sources) Anxiety; 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: [Anxiety disorder, unspecified] Onset: 2 Chronic Calculus of urinary tract (4 sources) Kidney stone 04-16-2019 Episodic Conditions associated with dizziness or vertigo (1 source) Dizziness and giddiness Episodic Disorders of lipid metabolism (5 sources) Hypertriglyceridemia; 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: [Pure hyperglyceridemia] 02-26-2024 Chronic Disorders of teeth and jaw (1 source) Unspecified temporomandibular joint disorder, unspecified side Episodic Esophageal disorders (14 sources) Gastroesophageal reflux disease; 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: [Gastro-esophageal reflux disease without esophagitis] Onset: 2 Chronic Gastroduodenal ulcer (except hemorrhage) (4 sources) Gastric ulcer; 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: [Gastric ulcer, unspecified as acute or chronic, without hemorrhage or perforation] Onset: 4 Chronic Headache; including migraine (20 sources) Migraine aura without headache ; 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: [Migraine with aura, not intractable, without status migrainosus] Onset: 2 Resolved: 2 Chronic Malaise and fatigue (17 sources) Fatigue; 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: [Chronic fatigue, unspecified] Onset: 2 Chronic Mood disorders (20 sources) Bipolar disorder; 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: [Bipolar disorder, unspecified] [...] Heartburn 04-16-2019 Episodic Other nervous system disorders (6 sources) Acute postoperative pain; 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: [Other acute postprocedural pain] 11-27-2020 Episodic Comment on above: Problem List clean-u p per request of Phys. EHR Cmte Other nutritional; endocrine; and metabolic disorders (4 [...] parts of digestive tract] Onset: 4 Episodic Residual codes; unclassified (2 sources) Insomnia; 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: [Insomnia, unspecified] 09-05-2024 Episodic Unclassified (2 sources) LOW BACK PAIN, UNSPECIFIED; 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: [LOW BACK PAIN, UNSPECIFIED] Onset: 2 Past or Other Problems Problem Classification Problem Date Documented Date Episodic/Chronic Administrative/social admission (19 sources) Family problems; 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: [Problems in relationship with spouse or partner] Onset: 05-11-2024 05-11-2024 Episodic Allergic reactions (1 source) Dermatitis, unspecified Onset: [...] Resolved: 08-22-2021 Episodic Other aftercare (1 source) extermination inspector (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; 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: [INTERMEDIATE CURRENT USE OF ASPIRIN] Onset: 10-26-2022 Episodic Other aftercare (1 source) Other skilled nursing (current) drug therapy; 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: [OTH BOBBIN HAULER CURRENT DRUG THERAPY] Onset: 10-26-2022 Episodic Other connective tissue disease (1 source) Pain in left finger(s) Onset: 10-02-2021 Resolved: 10-02-2021 Episodic Other connective tissue disease (4 sources) Pain in left foot; 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: [PAIN IN LEFT FOOT] Onset: 07-07-2022 Episodic Other connective tissue disease (1 source) Pain in right foot; 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: [PAIN IN RIGHT FOOT] Onset: 07-12-2022 Episodic Other nervous system disorders (17 sources) Finding of hand region; 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: [Tremor, unspecified] Onset: 02-28-2023 02-28-2023 Episodic Other nervous system disorders (13 sources) Ataxia; 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: [Ataxia, unspecified] Onset: 07-17-2024 07-17-2024 Episodic Other nervous system disorders (17 sources) Tremor; 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: [Tremor, unspecified] Onset: 07-17-2024 07-17-2024 Episodic Other non-traumatic joint disorders (1 source) [...] Provider Letter April 24, 2024 NOBLE CASTILLO [address] [place] [id number] : 1985 Dear Jessica, We have been trying to reach you with no success. It is important that you return our call regarding your medication question upon receiving this letter. Also, at the time of your call, please provide us with your current information. Thank you for your prompt attention to this matter. Sincerely, [facility] [phone] [facility] Coding Summary.on 04-21-2024 Coding Summary. [id number]+PG h lYWQ+OW6CLIMmN21qfBZa bO0mS8DWRHmFDxoeKGANS GhCGpVyekHlLW5odAPxUW Ju IC8+QK1yXEGsApxbhXFzw 9Z8fDW3H24woi4wLUnkwT N7DVWeCmGplobjo8yvvFh 6IDcuNmluOyBt DLOvfE20HOU4cL43Er88l LWnkNXqm8muoIy6RbDgZY FqOHR8aOscUTodb7CuTJR uX85vqWHqw6H2 ZAJpwQcrhWLhWpDijPR8c V5kWPoccehxe5caalwhNx p3kc63zXCsy0E2eCF8V8L tnhE7DZMfpMEf MombnMAWqB0djnafo0ggu aorDdSeSIObTVk4GKu6LF OziSyaJoLsDC25HXD4LVY rtoMkI9IuRSSh jXgyJbU1y2D0Db5VM0SWO qsyO8HRKKPFAGzexUS+PC 13if83L5UsBtdlVno2GNV jOGJ0sGM6cV8h SQWsPZpou3X1gCZ5O1Kqm gDklz1ba7ipVBRnXZosU9 7wbUZvm7F7KCSwrMI8MKW pcFfeDqGdmM41 Oyc+MJTeaVior5IuPyilz 6vti1qqaXe9DsbiGAWebw EsjPivOHM9b7JvAg2nXTB zgDE5nHB5fM6m OoUtZfJ1SFgrH246JoZpw FHlQqttL12gV1FgxLK+PH QwFwl3SXZqbOtvVH8gX1K hZGRpbmctbGVm mVrmKP3bKFAjbmeoIHVmn S1yVCJxT2p9WkZsZeM8TB afO0TqANXunvpdNi17nW2 vQlDeFiB5BJrw V2JppbO0IKWptHWeQYstF GM0I37jr0C2XHBaYICwVK W3vKU0vS5ttHkbrajnfHM mdDsgdmVydGlj ONjbIYimA894KUQfnDfcQ kNvZGluZyBEYXRlOiAgMD YvMjIvMjAyNDwvdGQ+PHR iHLA8dMnhMMKt yZLvGWpmJs2kmOlllKucW W2cGFYnaovsCBBetR7gXG OdmDDvgYhoME7rLXZjoqu re644SoBrMNW0 UJOqkAOfC4MxiX0dJjTdI YByCQDrE9PdaNVtNHwuL6 99UIjiFyT0SBIxzrXwA7N sLWFsaWduOiB0 k0X5Ac4Wr4OdektoA1Rxu NJwSdKvFujaVPd6I0ApFh wvdHI+WZ43QIDzZF81PRw 2SLY8pWvzBChe SHQoV0QxjP8nIfJzOPKfH GRkOyc+PHRhYmxlIHdpZH RoPScxMDAlJyBzdHlsZT0 gTi6nCFAnQCKi bZuhmMCpRfXgb7ejAONcN BkuVV5iyNkeH9LhsOJ9XK Vcv8c8Il21O80zN8FqjLO +HCDynES8rEY8 zB1oCoEkPkU1CQarW698L yCjtDFmCoulk2kob4cpzA k0ChV8ZZMyifWfqAetAFK 4u7CiLl02L27c IHdpZHRoPSIxNSUiIHZhb Btmkr3eqC4xHz4+PGNvbC H7oRF2fZ7bUhBjXaH5QXa aY281IkDgqVNs Tpvuo8bhx3zqgDy9NdMlQ AYebaLzmMbcFLP6a8CrAw 78A3VyiGuqu5GyNno6ot2 8rIAod1H7cJS1 W9JvLYGeiycmdTPqxDujO Y6lMPAbecbdKOAzxO6vLF FcC8i7WwXpMxH2ZPgsP5C neoM9HAAdcVWy YGUfvBEBsL8fahfiq9jmg ijlNtOsEUDxWEh4FHc5BP WvpHbtOuMaUEO8QpK2YZR 9xLUgoR7ztSeh zkcacC2jDvr+XUH9yVQwb EQHTN0oPrrbuDE+PHRkIH J6fNqfRArmACNicY0pCGL oG3h7DtVjOaI3 NEipS6CfyzM4QYEnnMGoE VWmnPEVlF8gbnnjo6semf jrLjZiUNXxERk9XSj3QWU saWduOiBsZWZ0 LeQ2ZWP3fGJteV6hnLjov scbfS8mZix+QmlydGggRG C7CCe6Z4MxBcr8SCFdmKy mXN3ufDBsKRxw Cb4qaAaxpXbpUS5zTZNkr zydz587FuSnc2ihNTQpnD BwGNgzPWU0A62th5W3VXE zHIMcWQS4kCZ7 bR3gxZgyiaohaNVxjQodk qWcoYhlZBxuIMevY801JO SelOkpApExHQm5O0BnYxf 2PORngAhqXW0v wZFmDMxwXn5cdAfrxQloD D3gAEZruocrb723BrMyg0 vdNAKkaPOcWCesIVB6I35 sj7N5PXGuSELi SNB7kPT5bQ4auDrjlwjsd GVmdDsgdmVydGljYWwtYW bnU857EOPprNkqXuKybWd 4J9TrVkb8LPPj tFhdOK9tiGKgJAmhVc6fg LdpcGnpIE9lWFGwwwdkt0 01NyDig6tdBJNcoZPmYVe fSRD4U64kh3Q3 XZGzTQSzSHC0sEK7yL2qj GlnbjogbGVmdDsgdmVydG yaZCqiMOylT555SOYwuFi nPlBhdGllbnQg KMhqTYj4H2TjSiufsLK+P E55KEYnVT94vIDiwFJng4 crcXd7ZxTuKMBnDWW5tKv nTIdir4BoLPWf J43qmIRpi2E9PWBdlEoxl BTuUuLntEQ0bN2qQPfdni phe2lfyhlyCphzs1mjhw0 5dV19N18mTPji ZHRoPSIzMCUiIHZhbGlnb a5ftZ7cSu0+MVKthER8gI Q8oZ4dFXVuSuM8XZdcI37 9InRvcCIvPjxj l7hwn1urlHb9EcL4YQGox sYhdUswZFP2q0WbGh55H8 9sIHdpZHRoPSIyMCUiIHZ xmUzuvy4eoO6w Ii8+AQKhxER9wND3wM6nJ zKxHpQ0IEdsC176QpFksF GkEopkS57qO0EqrHC+PHR pEgt2BAZynVez VR4mkFPzOHlkMe4xGAO0F rPiBvEgLWwgW3MqBHBsff oruuuypQN2TRUxSCUvfQ0 2Wx7jcCthRBJn bJARkT8hhukxl0dljuwrV nAdZUXnKLb8ZDr9EPJzcE yqYcZaKQO4MgF7YIJ0gYO tpJ4sbVcyjoac iG1cR3XoOGZgrtmxJe76j H5tOcOyBcH7RCbnYzk+GUERRERO 9RJwucEGuTVGTCJZ6XDD4 1KS65jOJzb1V1 yKU7J3RkVEGvuzqapmyqk PN7LPEvIFRtmL20eIYoKR dtCr4ka4R9w884QIExIMX xrC75Cw5rqGhe GNXnsYGBgK4hswfor0qyp yefVsIiZWNrEDk4CYo9HX XzfEtsXsNxKOF2KtS9LXH 2cCVaxU5qdZsk xexbcR1jBuv+MDYvMDUvM Kk4TxtrnGZ+HOTiGAH1wA niDOccPHIafK6lKIKcT4z 7TcTzGgS4ZZlh B7NaNCChrfthIi65gN8mA aIkVzP2JZcrA3DkoqL1QG BjwLVgIHdxLZG9Q72dk2U 0JPArETSqAUN7 kGX0lB7vaMbpkfezbPOrj DsgdmVydGljYWwtYWxpZ2 14ZSZkoHuwKzZ0OScxZOY kFI58GP18uMBa y8W3kFA9C9MuSZUhojmpz njkaHW8QTYyNVOapT40mF OgMFyyAe9fn9U8t097NSF oEOVntR04Gr8s mUlgOPRisXOAqB5pyvxpi 9smdjbzDxLxOZDbAJn4PL f7BCRybCmlMjBdXLM4SxF 3UCZ6bLVtgI0v bEqdfmqriA1xYuv+RmVtY JkhHU61MU11mNWkw7B1vT M3W6MtVCGkdzdfgncueQO 0QIVgAIOrnE63 tOEgATofXo1ah6D6d548I OUxZDHreF93Rl9oyGqhWQ VnlDWOqH7brbzyu8yqnxu gIzAwMDAwMDt0 PLy5EJZmyTupCmItTRY9D tB2JUM0eREeoG0teGrxcv ghuM0pRcl+CKWmBOPvi4P tr4TePS06BB69 H9IjIusimVXekPO+PHRhY mxlIHdpZHRoPScxMDAlJy XhiZkxFE9rIr6iKNPhZTI vbGxhcHNlOiBj d2sfPABoSGagZE5gfAcwE 2UilXY5NMCpu6r5Ct04V7 7nO5WawTK+XOBmkCS3wMJ 4hW6hYvJeJmQ0 PToaM450AqGppTNwKbpku 8gsc9kjsQc4TgKwFVTgif TvhThyNMM8n5CqJl38G27 sIHdpZHRoPSIy EWNmAPBoqMznlx5euO5hA i8+BZIxbUM5yIR6uV2rCx LxZeC0BXztP268XfWtwPB aOaanR70nO4Ff dXA+AJIjCjn9EIUfeLepY M3qnMHvSJvwVp8bLZO7Be DsApZaIMyvE2HaQETilfz kjwflwIX1DKGy LLQvaN68Dg1xhBmpGd9zO SKnFOL5JXHbwXVsC0SesT 3kAvXeBOJbDTYjO2KveIE dTTkuG466DTjj SvY5YUOdzrKmR3EzMZZzf UshYoT6v6F1Ya2QcUbtkH OfUR0xAuFmGWz9X3IySnc 6VEUqeEjnDD6i eGNnVJgiZr8cxHzwcJuhA O8cLVEtdqame528AoNnt8 aeYCFyyDBiZFktGEK5D95 pm4K3KVPkZVNf TRU7mQI6jE8elXgavdqpp GVmdDsgdmVydGljYWwtYW euI260VUDgfMypPzBMLbm 8T2RtXyr5ELUc eHckPY1pfFNrQFgjBi5fw HvviMxiYC8bZMNmifleg9 32KfOef3juOKYirEGnZSt gLNL2H56or8A5 GOTeRFGbEHX8uDV4jJ1di GlnbjogbGVmdDsgdmVydG oyDDfwMHvcP389BRNrmRu gAo4HLjk3S1Cd Fkm9TEMehObmAL2qbKZjV UqmNl9pxEdgtLihTZ3qPJ Wgrsqfq212BmMpo1sbGJK wcHQgVGltZXM7 P33wd4E2EWFuFNKpLOY2r BQ5iD5gbSalqwxjfKXlsP amxfZroZghELwdAJknW46 6IHRvcDsnPlBh eWVyOjwvdGQ+SI66mh40A 2LbNcjfQsc2SVGgUEE3xK B5kU6nOKCvDFvzx5O6eLB 0D6IbvaRsbt9s n6dfYNEcQFlsI (more content not included)... Normal [facility] Calprotectin, Fecalon 2023 Calprotectin (Stl) [Mass/Mass] 29 mcg/gm Invalid Interpretation Code 0-[address] [facility] Comment on above: Result Comment: Conc entration Interpretation Follow-Up < 5 - 50 ug/g Normal None >50 -120 ug/g Borderline Re-evaluate in 4-6 weeks >120 ug/g Abnormal Repeat as clinically indicated Performed at: [id number] [place], [place] [id number] MD Parmjit Connor Performed By: #### 1 [id number] #### [facility] [address] [place] [address] O & P EXAM, ROUTINE, REFLEXo n 04-17-2024 Ova and parasites identified Concentration Nom (Stl) Comment Invalid Interpretation Code [facility] Comment on above: Result Comment: No o va, cysts, or parasites seen. One negative specimen does not rule out the possibility of a parasitic infection. Performed at: [address] [id number] PhD Pancho Higgins Performed By: #### 3 [id number] #### [facility] [address] [place] [address] O & P Exam, Routineon 2023 Ova and parasites identified LM Nom (Unsp spec) Final report Invalid Interpretation Code [facility] Comment on above: Result Comment: Thes e results were obtained using wet preparation(s) and trichrome stained smear. This test does not include testing for Cryptosporidium parvum, Cyclospora, or Microsporidia. Performed at: [address] [id number] PhD Pancho Higgins Performed By: #### 1 [id number] #### [facility] [address] [place] [address] Pancreatic Elastase, Fecalon 04-17-2024 Elastase.pancreatic (Stl) [Mass/Mass] >800 Invalid Interpretation Code >[address] [facility] Comment on above: Result Comment: Florecita re Pancreatic Insufficiency: <100 Moderate Pancreatic Insufficiency: 100 - 200 Normal: >200 Performed at: [facility] [address] [place] [id number] MD Parmjit Connor Performed By: #### 1 [id number] #### [facility] [address] [place] [address] Enteric Panel by PCRon 04-12 C. coli+jejuni+upsalien sis DNA MARYELLEN+non-probe Ql (Stl) Not detected Normal [facility] Comment on above: Result Comment: Test ing was performed utilizing reverse daytime babysitter (RT), polymerase chain reaction (PCR), and array [...] nulcleic acid test. Performed By: #### 1 [id number] #### [facility] [address] [place] [address] E. coli stx1+stx2 genes MARYELLEN+non-probe Ql (Stl) Negative Normal [facility] Comment on above: Performed By: #### 1 [id number] #### [facility] [address] [place] [address] Enteric Panel by PCR Negative Normal [facility] Enteric Panel Intrl QC Pass Normal [facility] Comment on above: Result Comment: Test ing was performed utilizing reverse daytime babysitter (RT), polymerase chain reaction (PCR), and array [...] 1 and 2. Performed By: #### 1 [id number] #### [facility] [address] [place] [address] Norovirus genogroup I+II RNA MARYELLEN+non-probe Ql (Stl) Not detected Normal [facility] Comment on above: Performed By: #### 1 [id number] #### [facility] [address] [place] [address] Rotavirus A RNA MARYELLEN+non-probe Ql (Stl) Not detected Normal [facility] Comment on above: Performed By: #### 1 [id number] #### [facility] [id number] S. enterica+bongori DNA MARYELLEN+non-probe Ql (Stl) Not detected Normal [facility] Comment on above: Result Comment: This test result should be correlated with clinical presentations and medical history by a healthcare provider to determine its clinical significance. Performed By: #### 1 [id number] #### [facility] [address] [place] [address] Shigella species+EIEC invasion plasmid antigen H ipaH gene MARYELLEN+non-probe Ql (Stl) Not detected Normal [facility] Comment on above: Performed By: #### 1 [id number] #### [facility] [address] [place] [address] V. cholerae+parahaemoly ticus+vulnificus DNA MARYELLEN+non-probe Ql (Stl) Not detected Normal [facility] Comment on above: Performed By: #### 1 [id number] #### [facility] [address] [place] [address] Y. enterocolitica DNA MARYELLEN+non-probe Ql (Stl) Not detected Normal [facility] Comment on above: Performed By: #### 1 [id number] #### [facility] [address] [place] [address] CDiff PCRon 04-11-2024 C. difficile toxin A+B Ql (Stl) YES Normal [facility] Comment on above: Performed By: #### 3 [id number] #### [facility] [address] [place] [address] CDiff PCR Unable to perform test due to consistency of stool. C. Difficile testing will only be performed on diarrheal (unformed) stool unless ileus due to C. difficile is expected. Reference: Clinical Practice Guidelines for Clostridium difficile Infection in Adults, Infection and Hospital Epidemiology February 2010, Vol 31, No 5. Normal [facility] Celiac Disease Comprehensive on 04-11-2024 Endomysium IgA Ql (S) Negative Invalid Interpretation Code Negative [facility] Comment on above: Performed By: #### 1 [id number] #### [facility] [address] [place] [address] Gliadin peptide IgA Qn (S) 7 unit(s) Invalid Interpretation Code [address] [facility] Comment on above: Result Comment: Nega tive 0 - 19 Weak Positive 20 - 30 Moderate to Strong Positive >30 Performed By: #### 1 [id number] #### [facility] [address] [place] [address] Gliadin peptide IgG Qn (S) 2 unit(s) Invalid Interpretation Code 0- [facility] Comment on above: Result Comment: Nega tive 0 - 19 Weak Positive 20 - 30 Moderate to Strong Positive >30 Performed By: #### 1 [id number] #### [facility] [address] [place] [address] IgA [Mass/Vol] 286 mg/dL Invalid Interpretation Code [address] [facility] Comment on above: Result Comment: Perf ormed at: [facility] [address] [id number] PhD Pancho Higgins Performed By: #### 1 [id number] #### [facility] [address] [place] [address] tTG IgA Qn (S) <2 Invalid Interpretation Code 0-[address] [facility] Comment on above: Result Comment: Nega tive 0 - 3 Weak Positive 4 - 10 Positive >10 Tissue Transglutaminase (tTG) has been identified as the endomysial antigen. Studies have demonstr- ated that endomysial IgA antibodies have over 99% specificity for gluten sensitive enteropathy. Performed By: #### 1 [id number] #### [facility] [address] [place] [address] tTG IgG Qn (S) <2 Invalid Interpretation Code 0-[address] [facility] Comment on above: Result Comment: Nega tive 0 - 5 Weak Positive 6 - 9 Positive >9 Performed By: #### 1 [id number] #### [facility] [address] [place] [address] Ambulatory Visit Summaryon 0 04-09-2024 Ambulatory Visit Summary NOBLE CASTILLO :1985 Visit Date:04/09/2024 Ambulatory Visit Instructions Your Diagnosis Chronic diarrhea S/P cholecystectomy Chronic GERD Lower abdominal pain Gastric erosion Your Care Team Attending Physician - Navi MACK, Lester Godoy Primary Care Physician - CONOR BAEL MD This Is Your Medications List colesevelam [...] Chronic diarrhea Invalid Interpretation Code Chronic GERD [facility] CHEMISTRYOrdered By: SYSTEM SYSTEM on 04-09-2024 CRP [Mass/Vol] 1.3 mg/dL Normal <=1.9mg/dL Remisol Ch em TSH Qn 3.27 m[IU]/L Normal 0.34 - 5.60 mcIU/mL Remisol Chem CRPon 04-09-2024 CRP [Mass/Vol] 1.3 mg/dL Normal <=1.9 [facility] Comment on above: Performed By: #### 2 [id number] #### [facility] [address] [place] [address] Consent for Treatmenton 03-31 Consent for Treatment [id number] .[id number] Normal [facility] Gastroenterology Office/Clin ic Noteon 04-09-2024 Gastroenterology Office/Clinic Note Chief Complaint ibs w constipation and diarrhea GERD HPI Staff Patient is a 39 year old female who was referred by Floresita Zaragoza CNP for IBS w/ constipation & diarrhea. [...] BID, # 540 tab(s), Refills(s) 0, Pharmacy: [facility]/pharmacy #[id number], 162, cm, 04/09/24 13:38:00 EDT, Height/Length [...] Alcohol Use, (more content not included)... Normal [facility] Comment on above: Result Comment: Elec tronically Signed By: Navi MACK, Lester Escobedo.br\Date and Time Signed: 04/09/24 14:24 EDT Angel 12-08-2023 L Specimen: [id number] Received: 12/09/23 Status: TANA Dupree Num: [id number] Spec Type: Surgical Subm Dr: Fabienne Guerra DPM, MS Tissues: A Tendon/Sheath (RT POST TIBIAL TEND) Procedures: HE, Gross/Micro L3 Age/ Patient Sex Location Account Attending Physician Noble Castillo 38/F [facility] [id number] Fabienne Guerra DPM, MS SPEC NUM: [id number] RECD: 12/09/23 STATUS: TANA DUPREE NUM: [id number] SHEREE: 12/08/[address]: Fabienne Guerra DPM, MS ENTERED: 12/09/[address]: Joi,Lab SPEC TYPE: Surgical DEPT: JEANNIE QUINTERO ORDERED: [...] x 1.5 x 0.8 cm aggregate of yellow-deutsch, rubbery tissue. Entirely submitted in one cassette labeled A1. CPT Codes 50161 -------- -------- Specimen: [id number] Received: 12/09/23-1325 Status: TANA Dupree Num: [id number] Spec Type: Surgical Subm Dr: Fabienne Guerra,DPM, MS Tissues: A Tendon/Sheath (RT POST TIBIAL TEND) Procedures: ROMERO, Slade/Latesha L3 -------- Patient: Noble Castillo [id number] (Continued) -------- Signed (signature on file) Toney Chandra MD 12/12/23 225[address] [facility] Nicotine Metabolite, Urine L Con 04-19-2023 Cotinine LC Negative Invalid Interpretation Code [id number] [facility] Comment on above: Result Comment: Perf ormed At: [facility] [place] [address] [facility], [place] [id number] Mark Puentes PhD Ph:[phone] Performed By: #### 1 [id number] ####[facility] (DEFAULT)[address] [place] [address] Lab - Toxicology Resultson 0 04-18-2023 Lab - Toxicology Results [id number]. [id number] Normal [facility] CT ANKLE RT WO CONon 023 [...] technique. FINDINGS: BONES: Joint space narrowing with lgcc-xo-[id number] articulation involving the medial aspect of the talocalcaneal joint. SOFT TISSUES: Negative. No visible soft tissue swelling. EFFUSION: None visible. OTHER: Negative. IMPRESSION: 1. Pes planus. 2. Mlay-kt-ffsr articulation between the articular surfaces of the medial talocalcaneal joint. 3. Uniform, normal spacing of the tibiotalar joint. Electronically authenticated by: RAFAEL COATS Date: 2023-02-02 09:25 Normal [facility] CHEMISTRYOrdered By: SYSTEM SYSTEM on 01-17-2023 [...] Coding Summaryon 12-21-2022 Coding Summary HTMLBase 64 CakklllaGVn7mLg+PGhlY WQ+XM0RZSXqA69xcCKixO 7XC8bRQU1ROQJQXXSKOT9 YLP4rgEW1RSqhN8JvkqSi UlbibXSqGO10EMr6NHB6t JwvTUrneM2jpUFhC9k9Ie DiBA14hS90ZHmhWKClIgE 3LjZpbjsgbWFy V5gqVcPqjKYdIpi+PHRhY mxlIHdpZHRoPScxMDAlJy NhmJwqZM3wZs9zRFIsKZU vbGxhcHNlOiBj p5ekAOHyHAouPV4epKohT 1AwfDF6KWNsd1q5Lb52xH I+DCFvGFY4lCnfWUkfr07 3GsHor5vfDAL8 mBMjVHclAVM0S77yo6L3B JCaUUItFMQ5eWJ6fV3mrM chelimH4FgnRMgQaX6RNT 6rUJoxE4vsHve kluvyD0zEhq+H06RPI4RR ZKSYM1JDdl6Z4PxGwomdS I+LJ28DTGsYN68fMHpvQU td5cziPm5KqYw RMNiWPZ9aUhyPVkxv4NsD CFpQ52rsZQut5E0RPJweU lcfNGtOmRqjZI0eP7aLMy wnfseu4kxuvnq Aifgi7qhfb27yQ90K18eW XjiRUZmUAI0HOQvZLLuiO yyfe7gqX9lSz0+UWskv2h bj9isiTz7UuAf IJMcaxXrwUejURS3o1CcL c01K8YzmJwjy3AvDic7dr 85fEPqz8U3qLR9USmeEIW ocZ2xYArtWrE8 QLCtGhQjkS23lTXvQHrrZ f4wyFzogZxtDZ8zWJJign fwKMVwsK8aASXorSGuiXk oJN8wTTVdlznt r336WvLwRKC7SUXgwJEmC 3CprQ3vPbMeNFFxNTVfL1 WwqTSsBYqjA770IFrxQyM 7XYOcghAjT5Sx GPEshZvdKkN0g0O3Kk6Ry 8DazxkoVHG0LMxkUQQnNg OfAiBwMqK7S2QlQmn6SFI jxWymPO7kK1Sf NQWbkdpbkhhzkPZ5CRVtV SChpV30eQWgAJtdRy9vo9 E3s338CMVmKKBstV73Ak5 udDogMTBwdCBU sC6bkgykt9zrdzumQiNiR XZsHQp0GPf6QAMclMrxRb RcGWX0DaB1CDT0wPBfoH6 zsOnjecgsbL3s Oyc+M25vpV8bRFN9MFA7v yxuTPGugjXeAZ79UK22E5 RyPjwvdGFibGU+PGRpdiB pyMmfYW4rFvWi f5gmt3RoWTrrA2GwSRWlU InjZxw4XISfQMD9qYC7xM 7vJRNuUWtmx8H9bEW5M2G hukXzer0bk0yo BNDzFIdyM21gvICxh0F5F SMdtZF7YGGggYvdFuNuiL 93Oyc+ENUxyGcam3XnBph po9vuv8rnlGl2 YnDiOESftrLbdZppJER4r 3YbPa50W70sTXccASJrFD EbZNVnARGqhYczgj7kpH1 wIi8+PGNvbCB3 dZG8bJ4dXRUvLwB1SKotT 642DnWavNUfOocra6ngj5 bjhBo6RpMgTXSssrFbeSc vZEN2k0XqSv08 G47sOIbfUJSnNXUsHWWyK VMvaCglnx9wnA8yIz3+PC 0ok7qmde70qT45yEE+PHR dRYU8gSriHUon NBRzbJ2eBAcwQhO2SSPuA iUixX39pCQaAEipBt9gpT mwbBzvGA0iOGGjmrtlt88 9ReGbp1zaDSRi bHLwKHygGNY5T32qw2F9P JAcDOOdADB2gUV4kL6qvW lnbjogbGVmdDsgdmVydGl cBHddJQsfM046 IHRvcDsnPlBhdGllbnQgT mJfMAx7R4DsOfx6JVMlfP zyBU7fkAHyNPsaZo8xjWr xqUtnSX5mHOMz julnp680VnPwe0mmNEKwy JNzKDihJXP8Q31fo6L1HK SrUZSzFPD2iUZ7wY0pbIc nbjogbGVmdDsg ozQdnYwhLFgdLKfnI245N HRvcDsnPkJpcnRoIERhdG E2IZ13DX59aGRak1D6dSN 0V8OnIMJzsplx dbozeAN5VDDlLZIjxG51F p0wpYflQm9uQLVnQFW1KB XzpRMkB7MtnI0dDkCoGUO pAXRcW4EdmCMt CJamK834AJflUxY3PNZji cMxI4SgVNOnnYpyJaT9p0 X0Ud5IU2C3ST54JP45bWK df3L3sSF6J8Wz TRUmzbeblpdtdLH0FCAjE LVmnQ51Ln3vwXzgUr1wOO YbLSE1WJDrqXNpV7HcuJ1 yOiAjMDAwMDAw T5XatTZeYUecQ936KBbkV lG1BIMiliSwH1TgEXKkuB efCqE1w3R4Ys2TZBr9AB6 4TE31sMPww6E0 zKB0F0CjDRAknveyitqao PI6YJIkOEDjcQ09Rt6ynO oiTa3yDDUeTQO2LPXyeNV qW0PmwE6vXlQr MLUaKPIvL7YhhIPwYDmkE 443ASbbZbM7ZAWslcWcE9 RyPPDbfPhxZeL2m2U1Vo6 JQRIcVR89OHJ1 iLZ7CB30WH38F7RxWhtwv GFibGU+PHRhYmxlIHdpZH RoPScxMDAlJyBzdHlsZT0 fVy8uRHBjDSPx vFjujMCsNsYwf3yqZUZqW HmfCR2ufAfkV5LjbNR5HY Jmr2c9Ip28Q14tJ6PfsSX +VFGvcKX2bZQ8 wF3dFbBuUyQ3CRszP306L fLasYIcFstxh6xin1qkgT y9HpM9EXAbqnBqfLbvVHR 6x8KrYb86M63c IHdpZHRoPSIxNSUiIHZhb Keoxn8rrT9uJy9+PGNvbC P9hTH5iU8yShQkJrB9DGk nN312OiTjuMWu Puhwe4xbz6gmzHn6SqDkJ GLgagGriXpvQEA8x7QvKs 26A9CmiWxee6OrYmf1aq5 5kDUfn0W9kOV0 Q8PiLBIqxyplyGRgoFvgH C2dIPFduzumBCHlyX2hIQ XrQ2y2GyPiWyR4AHvkP4K debA4NAPcjNRm ZMbnCLS9M53kk7G0WSNsF NHvOTO0hSD3cH1mvBfncn ogbGVmdDsgdmVydGljYWw bJJfxN476PWRh eWhvJZXecY3lFZSwzXBik FiqHC6vSAEzplefJtzFXO 5HLCBLUklTVElOQSBFTEF GAjW9K2YhUus1 BHJkcTyoUB3qhQNxFKhdI w2gnTfcsHhaNZ1zTMQeha woTFRstH7nMFYriLBptVx jIE6tHUPugoet i177PrGlKFS9GBJzqBQhD 6LlbG2sHdCkQNNiCDPkO1 BvbVOxDJztV421DXzuOfI 1QXFihvZnA2Ui PCEzhVmrGlP1r8V4Nr1uE l3mKL3gAJw1JN93KR82cF Vbr2B4mTB8Y4YuQJAnaek aoscrkUH6NIJb QXSzrV67rAZfEOifUl1jb 3G7h450GFZeAQZvxA96At 8kgQprGJHytGFAaF4nmjy fq9aasotrFlJx VYTwZBu2WLy1NJJnqAgwS bCeTNZ9AlB5NVV6aKIwbA 3caSoujwhtuF1jXkj+MzY oUIAathQ0Q1Xu Qze0CURakKzyKR3uhEImM VkyAl4xnItbrYjiAT0iYX FaxhzqIFOssV4rYZHmyBH gfCbdEF9mHZDu kkgfj128PzCcKCV2MMEon ERkN7BlxC1lSwHxLOImRP CsP1HatYLgQMhfJ748SYl sOjS0HHQrguFq G8SlANMfiMzaNvU0b5E7M h3FWC6CHEB1E6EcLar8WA RcgBncOO3awSVpCGgeYs7 jzLymeWbdQZ0k WBKysisuVUSjzB9pZIIrb HRlrJgfAU8oUNTyvuwth9 92FwIfEUY4UXClwZVyF4R gjU3qEdRpWLOs AAFqC4TieHBsEYrnL555I BlbKkO3LEOkjtAzS9VyDE RzwMucIcU6c9C0Xr1GBGk vdGQ+QU30tg54 C5LsYlcnUkg1LQMkOPD4i SQ2cR5hMXNlEFxni5G5tK D5B9TfbeEysl5dl5udOZM uXNrfX32iuRTc r7K0ZUXldOG5DKRklOxrM uAeeM20Bcm+PGNvbGdyb3 TvHbevb2lby4wfpWm2IbG wJSIgdmFsaWdu WSG2b5AgDw01F76tGKdrL HRoPSIzMCUiIHZhbGlnbj 7zdW3bBv7+VNYiuAW9tSE 9jC1jGqYbRaO0 HUyeP771CrZfdMOnOxbsk 7ymp2nroQk6GpRyCHCjrr FkiDwnGXH9y3CwGy82E4B wqQlmg8VyAtn3 ut26lVMdb9G0hAA2K6RoY HMaowqvaGBisHthUE7kGW IxqiwkCMXsrD9oKLFeG8l 5RlBdXdW1ORzx T0GcveJ0ISHkpHKbUGYqs EHAmN4iyxsqs2cmduymSf TtJZFrKWx3ORy3IEZlkPp qHwHjEST9VuS3 WRI7yPDwfA2hnXohdavrz G9wOyc+DDe0t1rpeUQdTQ 5beXJ7DU95PR30iTSpe9U 0oCK8D3YdFGHo opgwnmqwhNU8EPHnMAWud J77Kr5tnHupCa4oYMHrXS H5LOLblBKyJ3PtbH5kOtC hRBGiIEKzD2Vo pCCxACtfF668YFztPqP8Q MKgdxIvN0TpKMZrkKpgWk L3l6P0Lv1ZSY19QD74SU6 7rDZxk4P8uGT4 T6QcWNUjqtezninttOU5W SYrIOPbrG66Re7yvCkxOz 4eLEXzWNP6CMZtjKAlH0G jsU0gByVdUIDg KEPtS6VpdNUgEJfdY094Y LdtPiN3CFYukfYwQ8VdEC RoaZeaWeU2e1V2Zn5GBw8 1TS24YL22iFHu i9O5uFW9I0OkXAUgjazul mwbnCO5DBFdHDJfmG34Zp 6pvKyoSf1eRGGnOBQ0NFZ ovDIbU8RzcG0h TwWzENWoRKNyJ8MsmIPcU ZbtK848XIezXoW6YZBfrw IwB5SnUGInzWqtVjL1u1M 9Uh7AXZxdppt7 I6UcYgdltAQ+UR46DNEyD K43aNXfiTGxr1qkxVl3Dg ZmOQIiDAL0qDzsXLbxc5C tYSToM60ypSRp c2U (more content not included)... Normal [facility] ED Clinical Summaryon 2022 ED Clinical Summary [facility] ? [facility] Care [address] [place], [place] [id number] Clinical Summary PERSON INFORMATION Name: NOBLE CASTILLO Age: 37 Years Sex: FEMALE : 1985 MRN: Acct#: Visit Reason: UC - Sinus Pain or Congestion; UC - Ear Pain; LT EAR PAIN Arrival: 12/16/2022 11:36:50 Discharge: 12/16/2022 12:00:00 LOS: 000 00:24 Check In: 12/16/2022 11:36:50 Checkout: 12/16/2022 12:00:00 Address: [address] [place] [id number] PCP: Ame Zaragoza CNP PROVIDER INFORMATION Provider Role Assigned Unassigned Sandra Dinh SAFETY SPECIALIST Nurse 12/16/2022 11:39:08 Cong Cobian PA-C ED PA 12/16/2022 11:41:06 VITALS INFORMATION Vital Sign Triage Latest Temperature Tympanic Temperature Temporal Artery Pulse Rate O2 Sat 98 % 98 % Respiratory Rate Blood Pressure /78 mmHg /78 mmHg MEDICAL INFORMATION Medications Given: Allergy Information: Tape; Betadine; codeine PHYSICIAN DOCUMENTATION DISCHARGE INFORMATION: Discharge Disposition: Home Discharge Location: Home PATIENT EDUCATION INFORMATION Instructions: Otitis Media, Adult, Rdwa-tr-Cekx Follow-Up: With: Address: When: Ame Zaragoza [address] [place], [place] [id number] Business (1) Within 1 week Comments: Please follow-up with , call the office schedule an appointment to be seen in a week or sooner for continued care, taking amoxicillin as prescribed, take caye-cnb-colxjgw ibuprofen Tylenol as needed for pain and fever, drink plenty water stay hydrated, and return back to the urgent care center for any worsening symptoms, concerns, or complications. DIAGNOSIS: 1:Left otitis media Patient Understands: Yes - Patient/family/caregi regina verbalizes understanding of instructions given Comment: Normal [facility] ED Patient Summaryon 023 ED Patient Summary [facility] ? Urgent Care [address] [place] [address] PATIENT DISCHARGE INSTRUCTIONS Patient Information Name: NOBLE CASTILLO Age: 37 Years Date of : 1985 Reason For Visit: UC - Sinus Pain or Congestion; UC - Ear Pain; LT EAR PAIN Arrival Time: 12/16/2022 11:36:50 Primary Care Physician: Ame Zaragoza CNP Attending Physician: Cong Cobian PA-C Comment: Patient Education With: Address: When: Ame Zaragoza [address] [place], [place] [id number] Linki (1) Within 1 week Comments: Please follow-up with , call the office schedule an appointment to be seen in a week or sooner for continued care, taking amoxicillin as prescribed, take ppjp-qfm-uelrmdh ibuprofen Tylenol as needed for pain and [...] Follow these instructions at home: ? Take lkwt-yop-offzntk and prescription medicines only as told by [...] provider. Document Revised: 01/25/2022 Document Reviewed: 01/25/2022 [employer] Patient Education ? 2021 [employer]. Medication Information: The exam and treatment you received today in the [facility] Emergency Department were for an urgent problem and are not intended as complete care. It is important for you to follow up with a doctor, nurse practitioner, or physician?s assistant site manager for ongoing care. If your symptoms become [...] will (more content not included)... Normal [facility] 023 Urgent Care Record [facility] ? Urgent Care [address] [place] [address] PATIENT DISCHARGE INSTRUCTIONS Patient Information Name: NBOLE CASTILLO Age: 37 Years Date of : 1985 Reason For Visit: UC - Sinus Pain or Congestion; UC - Ear Pain; LT EAR PAIN Arrival Time: 12/16/2022 11:36:50 Primary Care Physician: Ame Zaragoza CNP Attending Physician: Cong Cobian PA-C Comment: Visit Diagnosis: Diagnoses This Visit Left otitis media (H66.92) UC - Ear Pain ([id number]) UC - Sinus Pain or Congestion ([id number]) If you received any narcotics, sedation, or [...] any legal documents With: Address: When: Ame Zaragoza [address] [place] [id number] Business (1 Within 1 week Comments: Please follow-up with , call the office schedule an appointment to be seen in a week or sooner for continued care, taking amoxicillin as prescribed, take rurg-nxe-ksbyuyw ibuprofen Tylenol as needed for pain and fever, drink plenty water stay hydrated, and return back to the urgent care center for any worsening symptoms, concerns, or complications. Medication Information: The exam and treatment you received today in the [facility] were for an urgent problem and are not intended as complete care. It is important for you to follow up with a doctor, nurse practitioner, or physician?s assistant site manager for ongoing care. If your symptoms become [...] we can reach you if necessary. [facility] has provided you with a complete list of medications post discharge. Please inform your district manager primary care sales/provider of your visit and for further instruction on these medications. Any specific questions regarding your chronic medications and dosages should be discussed with your primary care physician(s) and/or pharmacist. New Medications [id number], [address], [place] [id number], [phone] amoxicillin (amoxicillin 500 mg oral capsule) 1 [...] 1 capsule by mouth once daily. rizatriptan (Maxalt-CASKET ASSEMBLER METAL 10 mg oral tablet, disintegrating) 1 tab(s) [...] condition (more content not included)... Normal [facility] ER URINE PROFILEon 2 Bilirubin Ql (U) Negative Normal NEGATIVE [facility] Comment on above: Performed By: #### E RUR #### [facility] [address] [place] [address] Dr. Phong Thayer Clarity (U) CLEAR Normal CLEAR [facility] Comment on above: Performed By: #### E RUR #### [facility] [address] [place] [address] Dr. Phong Thayer Color (U) LT. YELLOW Normal YELLOW [facility] Comment on above: Performed By: #### E RUR #### [facility] [address] [place] [address] Dr. Phong MONTILLA A micrscopic examination will be performed if indicated. Normal [facility] Comment on above: Performed By: #### E RUR #### [facility] [address] [place] [address] Dr. Phong Thayer Glucose Ql (U) Negative Normal NEGATIVE [facility] Comment on above: Performed By: #### E RUR #### [facility] [address] [place] [address] Dr. Phong Thayer Hemoglobin Ql (U) Negative Normal NEGATIVE [facility] Comment on above: Performed By: #### E RUR #### [facility] [address] [place] [address] Dr. Phong Thayer Ketones Ql (U) Negative Normal NEGATIVE [facility] Comment on above: Performed By: #### E RUR #### [facility] [address] [place] [address] Dr. Phong Thayer LEUKOCYTES Negative Normal NEGATIVE [facility] Comment on above: Performed By: #### E RUR #### [facility] [address] [place] [address] Dr. Phong Thayer Nitrite Ql (U) Negative Normal NEGATIVE [facility] Comment on above: Performed By: #### E RUR #### [facility] [address] [address] [address] Phong Thayer pH (U) 6.5 [pH] Normal 5-9 [facility] Comment on above: Performed By: #### E RUR #### [facility] [address] [address] [address] Phong Thayer SPEC GRAVITY 1.015 Normal 1.005-<=1.02 5 [facility] Comment on above: Performed By: #### E RUR #### [facility] [address] [place] [address] Dr. Phong Thayer UA PROTEIN Negative Normal NEGATIVE/ TRACE [facility] Comment on above: Performed By: #### E RUR #### [facility] [address] [place] [address] Dr. Phong Thayer UR MICRO IND NOT INDICATED Normal [facility] Comment on above: Performed By: #### E RUR #### [facility] [address] [place] [address] Dr. Phong Thayer Urobilinogen Qn (U) 0.2 {Gilma'U}/dL Normal 0.2 - 1. 0 [facility] Comment on above: Performed By: #### E RUR #### [facility] [address] [place] [address] Dr. Phong Thayer XR LSPINE 2_3 VIEWSon [...] DONALD CANNON Date: 2022-10-23 16:28 Normal [facility] Coding Summaryon 10-01-2022 Coding Summary HTMLBase 64 LndzkrzdRUn4eUu+PGhlY WQ+PY0ANRVjD16wtJDbeT 0ZC4gRZU1UIFNRJIDQXV9 QFU4nxIC4EZhxZ7UfbfFm ReaypUXjLJ41YSf5XXD8x JoiFYxamD3ecFXbA9z7Nr PbQX91mV96MWfxDXLsUtQ 3LjZpbjsgbWFy M6frHuIipURiGdc+PHRhY mxlIHdpZHRoPScxMDAlJy XteXxxKU7jJk5fCFYkENV vbGxhcHNlOiBj t0urJEXuQHooJN9kzXbiA 6ZsdHV3DJTpo8q7Vr41qC I+QJYsBTU0dBcpEAvci42 1DfUvo9zzDED3 fKXuOKkxEGX0X47cu8K5X SSoSMUtEZD4uZH2vX5qkM elleuqR5AhdSMaDxQ5JGK 5lOIwnW4xkObn hhffzK6zRgs+Y11GGB9DH YCOUT9VKgz9K4KzVglioW I+DY63YOPlWD12fNShrOT mf1unvNq6LiIp LBUeVHF2aZngBMahq4QgP OSoY64spRVwu9U9QJAkjW kgdKDcCeUjrRS2uC6pNPw qstccq5hzxpjc Mcekn0wdxy10tY00M66tC WwjRGWqZLM3PLJwJWQztK bilz5kiJ9hNu7+AHodu4m uo8vwtWd7PcMj BATigcWzfVlcMEI6v7QxZ b17J3YmnOuba6HsDta3ch 67nHAsv0C3xLD9JPkcATZ srX7nSKzfCqZ7 QXLeSoCcoV11uUMfXWwrX s5bvPovwZdtPX2yVPDshp mmOEZflU4wYBEcfPCcqMs pPC6zJAEehmnc x859EuUgSNM2MGTboKUcP 5GykQ0oTbFkVABcMOUqD8 TgxFRiWFeqR539PAbcFdU 8MRXvwdRmZ0Wy QURvbQppVyY9r3H6Zi6Nd 1ZycsnqOJJ5BHquFXEoBm VrBvGfZvI1I9ExYeh8RMU haHnjZJ4cR8Pi YJEzahpxwbcbzLH9QQSyD IJkiB23vHMnNMdoMd9av8 R0i504CTOiEYUvrV94Xd6 udDogMTBwdCBU yH2rxytkb8dmynziGcMvU BNnIVc8RXa3TIVykCfmPt WiEFA6NxS9CJJ9uHFtlF3 osSahaunddH8c Oyc+C01guU8tBGO0ZOR6e ywbOFSvugXdUW10XH91V7 RyPjwvdGFibGU+PGRpdiB tkRbvXE8uMkZj i5orw8BgWKvhF5JmBXFhS NxrZdf4NAAjWRY3sYV3pN 6sFXQwABrag7J9sMU2F4A okaOsgv9av4tn TZYzNKfuP20ozLPjl3Q5D JJfsAI2HMZztNxoWlCboI 93Oyc+HKHuoSbae9VhYsg zd0ovp4njbHy3 OnPmRJUphwGenFiaKAQ8q 2XfTn41S26mINdxFLEkJS QzLQVeJPCedDlwqo5mcH6 wIi8+PGNvbCB3 qPI4qK7pLCJcMaP2UDhxI 401QwIluBDeYcgar2fkt2 gbgBm8EiIyPKRjhtRchFn sYRT7n8JiDe41 D60pVSpmVLBxDVAtIVTcL KBbxBxlxq2gvU8aCi6+PC 6zk8aubq08zB89wBH+PHR vUKB0iWtmNYyh UASeaU8iSRluSmB4FPPaX dCjoE99iWHeWEfcTj2zrR cpwYjvVI3uOJRkhchwz35 6BmJug2loSXMk iYVbBXrgDBN8W11bt9P3H NHtPWQuHMN7xQR2jK3ivJ lnbjogbGVmdDsgdmVydGl vHOxaUCsfV582 IHRvcDsnPlBhdGllbnQgT aCeFHn1D5ZjIyh7QRJrfR cmTC1tiAZjWSgqQr1foIx seBptOM1vLRKq frdwc214WvHpr4vcTUKoo AEnEXbfZUK9W85gc8B0HQ AkHFTxYEB1vYI9qK7rjMs nbjogbGVmdDsg yuHacGgqVNnbIOqeE032L HRvcDsnPkJpcnRoIERhdG R0HW38QX18sAAlf8K7bOU 3W8BoGTGqtqae opejxCP9AKNySBXxtU68U e3bgKnbMq3mBMCgYHR1YA NnaUHdA9EogO7yTfRtLBQ qIBHjU2FmeZJi KHjwE847FLyiYdY4WJIct xDmJ1KhMWHtpYriAsW6z4 X6Wf0LM2Q1ES48BG10pUU yp9D8vSJ0I4Hk DAJhsgisehcvtPT1ENLiW CMsrQ43Hz0onPupZr9qWX YaIFL1OSJrqYGeP6ZgfG4 yOiAjMDAwMDAw H2HljMWuCMegK141BXuaZ kI9HQStpsXaB4MgSCBizP guHaK1b3Q7Gj6HTZy3EA2 9GE63vMFwv6M6 rOY1P9IiCRTqdygogvrrz JH4DUZnUAYvvS24Md8hwR wcXg5aGMLpIKC4HMYjePB uF3ZsdM4wBtBz VIFqQYNlN0OjtAHtVCxzW 290RNtjTjC0BBUhytRkT2 WeNLOtyFdwDlG3h7S3Xx8 SCCFvGD41YSI4 wAH2YU92AS58N7DeGfovg GFibGU+PHRhYmxlIHdpZH RoPScxMDAlJyBzdHlsZT0 dYi9gXVTcUWHn vAcxmPWwOtCyi1xcQYVfH ZhhRF7fnNgeA4TwaWT1WJ Ugx7c7Gg77T54sE7KulFD +UNUmzEK7zWS0 oY6kTfNsJaX1HYnsD590L kLvyEBsOmvhv9low9eqsT s8ZeS7DVZgpsHdaRzwEWE 4v8ZfSw63M81a IHdpZHRoPSIxNSUiIHZhb Jtjob4lhM5kJh5+PGNvbC P2gBV2iR4mOfYwGeN0JWp eZ994TeNujGAn Ztgjh4qlw3lzhTm9WpBvE AUphfSgfOpfVLO7z2UdJr 07E6OcnEuxs0DdRno5kt0 7mSIba5X6pEC4 C7HhXQNpneopcISyqAvrM V7yPGLctoniIEBhfZ8mEG VrE5v7LjNuBmV6NKkfA4E bavF4JFKuaVAa NGppGNK5V24an3A3TTRgQ OVjQIZ8bVZ2gF6qyYeaie ogbGVmdDsgdmVydGljYWw cMUrvC016VGEf lMncOAFbiG6pKECacOEbm SgeFB0bLIWgrewfSurZQD 5HLCBLUklTVElOQSBFTEF WBuB8I1DcSku5 EKHquUksCE1ktRClGYgoP t0xhPbzvYimYC1vAXUhzg zlWWCdnB4qSSLnsQPwbDf rHM4eNVWbaxnn z323SoHjJID8DJBhxIKmK 3ObjM7hLkZeMVGaPGHvB3 WshXIiCJvyN286DMekFiL 3QEFckgRiT3Gh ZNBytBahDwJ5t5P7Ta9uS w6hGX9uJKj0PG90UR45oP Cfu4A9yFK4D5EgGXKdyqd ofvoriBX0QJYb YUYypO13cQIpKEruQd4yb 5B5x807YDKaBDKhhK93Xc 6ggSsuOGTveIWIhE9uioo li4fxkobwOzBo DRWiWQy7EDx7SIOleRhpM kSnDOU4LpQ7ZAZ6dQUkhS 7jfQtlxdxtpP3gMwq+MzY nILUmyyG3Y7Yq Kxi0VXJthWmyHN7smHZwN CwnFz9xmJhdsNorGS1gBT BwapnxAXBztL1uBEPtbCL ymEdpOH3zOYJp xpsvz507RmEpEDW0KTWfy VXzU7BjuE3zEhCtYFYlDR EnV5EctVChXKtrT178CVd qCxX5CDTfkgUn D5QuMLGqwIkwBjG3u9A2C w0JRV3JRFI4Q5OhHng4HX NnrTkwSY5gtCYuJSzdOt3 jtAxfbDoaLM2e FFPwmfuvFHLgiA3ySEKpw PDvjRfvVL5tXIVvwhhmc6 47XpHwCSF5ILBjsBTsX8B ymX8wCvLpILZe AOOsM5MafWMhOJmvX744M LnsNhL0BSWqjxWdL2CgFY DsjFjcMzS3c3N0Jx6GFSl vdGQ+YC49mc52 J1ZrCphoEcs4SPZfZVY3s BM6jN0hHAEjPAljb3E3uH H8C4DtkuCplf5ab1rwWYD tWResY32cmMLr n1N9LLLriCM5FAGsxPefM tYojW26Lkv+PGNvbGdyb3 ViYibku6qgy0deeGj2FjV wJSIgdmFsaWdu ACD5x8LpOn48D28cRSktC HRoPSIzMCUiIHZhbGlnbj 8hgP3cXv3+ZDNfkTL0rIK 0jY0tOsNzUmD4 CVgnE186WwEsxDXwTugbq 1rgy2fizBt9KeDwOZBfgf BwaRdpWWD3q4AjVc60U2L rmRfzl4MnXtf1 wb65gRTpt7Z5nFD2Z3BeX GLqqgfkrJHuzJjnRM6oUI WxgteyLQEpvF7qLFAkH8g 2FmOnPoX5MWbp Z7MprrN3NWPhcQJhSBGat UFKdJ0akhbob1zmgtgcQn SkYEMfRLm1ATv7LEZpmUr vQjCpJHB1TkW8 AAA9lDIliX6uaWfkeyfka G9wOyc+BJj5l8yvnXSnDZ 2vkGJ7IX51KY98bNNqs7J 7bWG8R1IoLUYo vvsqhqrldAX9DCAqVTZvm A35Yh3zjPqnVr2pKSLhJD Q9NTFmkKTkP3WwcR2hFbR sDNKsBJWqM3Do rWOqCJwcI592MUogTtJ2H KHkzkYaD9QpPFMspImcWa H3v1P8Sb0WGV88CH19QH8 1gOVsx5J9uPD3 E5EaVKEdoxqzntccoRX5E NUwRYAadS37Dt2hvYatPq 7hKSPzIYM8JSUxmFKuZ9Y ihJ8gXlMyDIOs OGZiZ8JucQAbNQmaX161W WriIkA6SPYpibBfL4GhPG RbtSohDxU2p1Y8Mv7XGq2 8HI98CW30rBNz j8O6eCK7S4QkLWQudqonp aavqUX8EGMlQSBjqN68Nj 8kzZwwUi6aHOVjYKF5OVV vpKLcI1UvzQ4n XwSjVETzZKYqN8AjnWTkJ AjgE550WIigBrR3IHPder PeM7NoCHShuJooSiB2z1D 8Dq5FOMjsjpv0 F3WfEqzpkWY+YV30TIHbI Y34pOVnmPBnp7dntUt4If NkITJwTQK2oJjjVDozl4H cOMWnY46jnGJk c2U (more content not included)... [facility] Outside Recordson 09-30-2022 Outside Records [id number]. [id number] [facility] ED Clinical Summaryon 2021 ED Clinical Summary [facility] [address] [place] [id number] Clinical Summary PERSON INFORMATION Name: NOBLE CASTILLO Age: 37 Years Sex: FEMALE : 1985 MRN: Acct#: Visit Reason: Medical screening exam; [employer] Arrival: 09/29/2022 10:32:28 Discharge: 09/29/2022 11:15:00 LOS: 000 00:43 Check In: 09/29/2022 10:32:28 Checkout: 09/29/2022 11:15:00 Address: [address] [place] [address] PCP: Ame Zaragoza CNP PROVIDER INFORMATION Provider Role Assigned Unassigned [...] regina verbalizes understanding of instructions given Comment: [facility] ED Patient Summaryon 022 ED Patient Summary [facility] [address] [place] [address] PATIENT DISCHARGE INSTRUCTIONS Patient Information Name: NOBLE CASTILLO Age: 37 Years Date of : 1985 Reason For Visit: Medical screening exam; [employer] Arrival Time: 09/29/2022 10:32:28 Primary Care Physician: Ame Zaragoza CNP Attending Physician: Abhi Finney PA-C Comment: Patient Education Medication Information: The exam and treatment you received today in the [facility] were for an urgent problem and are not intended as complete care. It is important for you to follow up with a doctor, nurse practitioner, or physician?s assistant site manager for ongoing care. If your symptoms become [...] we can reach you if necessary. [facility] has provided you with a complete list of medications post discharge. Please inform your district manager primary care sales/provider of your visit and for further instruction [...] capsule) 1 cap(s) Oral every day. rizatriptan (Maxalt-CASKET ASSEMBLER METAL 10 mg oral tablet, disintegrating) 1 tab(s) [...] Diagnosis: Diagnoses This Visit Medical screening exam ([id number]) If you received any narcotics, sedation, or [...] Ans (more content not included)... Normal [facility] Note- Provideron 09-29-2022 Urgent Care [...] tab(s), PO, Daily, 28 tab(s), 0 Refill(s) Maxalt-CASKET ASSEMBLER METAL 10 mg oral tablet, disintegratin mg = [...] selected or recorded.. Surgical history: Diagnostic laparoscopy ([id number]) on 07/24/2019 at 34 Years. Tonsillectomy and adenoidectomy ([id number]). Lump ([id number]). Comments: 07/16/2019 11:30 Arabella Day RN left axilla Cholecystectomy ([id number]). 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 Comments: 07/16/2019 11:31 Arabella Day RN left ear Foot ([id number]). Comments: 07/16/2019 11:32 Arabella Day RN titanium implant left ankle Dilatation and curettage ([id number]). Tooth extraction, multiple ([id number]). Comments: 07/16/2019 11:33 Arabella Day RN wisdom Sinus ([id number]). Comments: 07/16/2019 11:33 Arabella Day RN x2 Colonoscopy ([id number]). Esophagogastroduodeno scopy ([id number]).. Family history: No family history items have [...] 11:09 EST] Abhi Finney PA-C Normal [facility] Recordon 022 Urgent Care Record [facility] [address] [place] [address] PATIENT DISCHARGE INSTRUCTIONS Patient Information Name: NOBLE CASTILLO Age: 37 Years Date of : 1985 Reason For Visit: Medical screening exam; [employer] Arrival Time: 09/29/2022 10:32:28 Primary Care Physician: Ame Zaragoza CNP Attending Physician: Abhi Finney PA-C Comment: Visit Diagnosis: Diagnoses This Visit Medical screening exam ([id number]) If you received any narcotics, sedation, or [...] and treatment you received today in the [facility] were for an urgent problem and are not intended as complete care. It is important for you to follow up with a doctor, nurse practitioner, or physician?s assistant site manager for ongoing care. If your symptoms become [...] we can reach you if necessary. [facility] has provided you with a complete list of medications post discharge. Please inform your district manager primary care sales/provider of your visit and for further instruction [...] capsule) 1 cap(s) Oral every day. rizatriptan (Maxalt-CASKET ASSEMBLER METAL 10 mg oral tablet, disintegrating) 1 tab(s) [...] Control and Prevention July 2014 Normal [facility] T3, TOTAL (TRIIODOTHYRONINE) on 09-16-2022 T3, TOTAL 132 ng/dL Normal 71-180 [facility] Comment on above: Performed By: #### T 3TOTAL ####[facility] [address] [place], [place] [address]ZsDr. Phong Thayer CBC AUTO DIFFon 09-15-2022 BASO # 0.0 103/ul Normal 0.0-0.1 [facility] Comment on above: Performed By: #### C BC #### [facility] [address] [place], [place] [address] Dr. Phong Thayer Basophils/100 WBC (Bld) 0.3 % Normal 0.2-2.0 [facility] Comment on above: Performed By: #### C BC #### [facility] [address] [place] [address] Dr. Phong Thayer EO # 0.1 103/ul Normal 0.0-0.7 [facility] Comment on above: Performed By: #### C BC #### [facility] [address] [place] [address] Dr. Phong Thayer Eosinophils/100 WBC (Bld) 0.8 % Critically low 0.9-7.0 [facility] Comment on above: Performed By: #### C BC #### [facility] [address] [place] [address] Dr. Phong Thayer Erythrocyte distribution width (RBC) [Ratio] 12.5 % Normal 11.0-15.0 [facility] Comment on above: Performed By: #### C BC #### [facility] [address] [place] [address] Dr. Phong Thayer Hematocrit (Bld) [Volume fraction] 42.2 % Normal 36.0-48.0 [facility] Comment on above: Performed By: #### C BC #### [facility] [address] [place] [address] Dr. Phong Thayer Hemoglobin (Bld) [Mass/Vol] 14.3 g/dL Normal 12.0-16.0 [facility] Comment on above: Performed By: #### C BC #### [facility] [address] [place] [address] Dr. Phong Thayer IG # 0.01 10e3/ul Normal 0.00-0.03 [facility] Comment on above: Performed By: #### C BC #### [facility] [address] [place] [address] Dr. Phong Thaeyr IG % 0.1 % Normal 0.0-0.5 [facility] Comment on above: Performed By: #### C BC #### [facility] [address] [place] [address] Dr. Phong Thayer LYMPH # 2.5 103/ul Normal 1.2-3.8 [facility] Comment on above: Performed By: #### C BC #### [facility] [address] [place] [address] Dr. Phong Thayer Lymphocytes/100 WBC (Bld) 33.7 % Normal 20.5-60.0 [facility] Comment on above: Performed By: #### C BC #### [facility] [address] [place] [address] Dr. Phong Thayer MANUAL DIFF REQ NO Normal [facility] Comment on above: Performed By: #### C BC #### [facility] [address] [place] [address] Dr. Phong Thayer MCH (RBC) [Entitic mass] 29.1 pg Normal 26.7-34.0 [facility] Comment on above: Performed By: #### C BC #### [facility] [address] [place] [address] Dr. Phong Thayer MCHC (RBC) [Mass/Vol] 33.9 g/dL Normal 29.9-35.2 [facility] Comment on above: Performed By: #### C BC #### [facility] [address] [place] [address] Dr. Phong Thayer MCV (RBC) [Entitic vol] 85.9 fL Normal 81.0-99.0 [facility] Comment on above: Performed By: #### C BC #### [facility] [address] [place] [address] Dr. Phong Thayer MONO # 0.4 103/ul Normal 0.3-0.8 [facility] Comment on above: Performed By: #### C BC #### [facility] [address] [place] [address] Dr. Phong Thayer Monocytes/100 WBC (Bld) 5.3 % Normal 1.7-12.0 [facility] Comment on above: Performed By: #### C BC #### [facility] [address] [place] [address] Dr. Phong Thayer NEUT # 4.5 103/ul Normal 1.4-6.5 [facility] Comment on above: Performed By: #### C BC #### [facility] [address] [address] [address] Phong Thayer Neutrophils/100 WBC (Bld) 59.8 % Normal 43.0-75.0 [facility] Comment on above: Performed By: #### C BC #### [facility] [address] [address] [address] Phong Thayer Platelet mean volume (Bld) [Entitic vol] 10.2 fL Normal 9.5-13.5 [facility] Comment on above: Performed By: #### C BC #### [facility] [address] [address] [address] Phong Thayer PLT 227 103/ul Normal 150-450 [facility] Comment on above: Performed By: #### C BC #### [facility] [address] [place] [address] Dr. Phong Thayer RBC 4.91 106/ul Normal 4.20-5.40 [facility] Comment on above: Performed By: #### C BC #### [facility] [address] [address] [address] Phong Thayer WBC 7.5 103/ul Normal 4.0-11.0 [facility] Comment on above: Performed By: #### C BC #### [facility] [address] [place] [address] Dr. Phong Thayer FREE THYROXINE INDEX T7on FTI 2.37 Normal 1.30-4.50 [facility] Comment on above: Performed By: #### T SH, T4, T7, CMP #### [facility] [address] [address] [address] Phong Thayer T3U 32.0 % Normal 30.0-39.0 [facility] Comment on above: Performed By: #### T SH, T4, T7, CMP #### [facility] [address] [address] [address] Phong Thayer LIPID PROFILEon 09-15-2022 CHOL-HDL RATIO NORM SEE BELOW Normal [facility] Comment on above: Result Comment: 3.3 - 4.4 LOW RISK 4.4 - 7.1 AVERAGE RISK 7.1 - 11.0 MODERATE RISK >11.0 HIGH RISK Performed By: #### L IPID ####[facility] [address] [place], [place] [address]Ms. Phong Thayer Cholesterol [Mass/Vol] 163 mg/dL Normal <=200 [facility] Comment on above: Performed By: #### L IPID ####[facility] [address] [place], [place] [address]Qe. Phong Thayer Cholesterol in HDL [Mass/Vol] 57 mg/dL Normal 40-60 [facility] Comment on above: Performed By: #### L IPID ####[facility] [address] [place], [place] [address]Pj. Phong Thayer Cholesterol in LDL [Mass/Vol] 69.8 mg/dL Normal [facility] Comment on above: Performed By: #### L IPID ####[facility] [address] [place] [id number]. Phong Thayer Cholesterol.total/Ch olesterol in HDL [Mass ratio] 2.9 {ratio} Normal [facility] Comment on above: Performed By: #### L IPID ####[facility] [address] [place], [place] [address]Eo. Phong Thayer HDL NORMAL > or = 60 mg/dl - LO W CARDIOVASCULAR RISK <40 mg/dl - HIGH CARDIOVASCULAR RISK Normal [facility] Comment on above: Performed By: #### L IPID ####[facility] [address] [place], [place] [address]Oo. Phong Thayer LDL CALC NORMAL SEE BELOW Normal [facility] Comment on above: Result Comment: <100 mg/dl OPTIMAL 100 - 129 mg/dl NEAR OR ABOVE OPTIMAL 130 - 159 mg/dl BORDERLINE HIGH 160 - 189 mg/dl HIGH >190 mg/dl VERY HIGH Performed By: #### L IPID ####[facility] [address] [place], [place] [address]Vv. Phong Tahyer Triglyceride [Mass/Vol] 181 mg/dL Critically high <=150 [facility] Comment on above: Performed By: #### L IPID ####[facility] [address] [place] [address]Dr. Phong Thayer VLDL CALC 36.2 mg/dL Normal [facility] Comment on above: Performed By: #### L IPID ####[facility] [address] [place] [address]Dr. Phong Thayer PROF 14(COMP METB)on 022 Albumin [Mass/Vol] 3.6 g/dL Normal 3.4-5.0 [facility] Comment on above: Performed By: #### T SH, T4, T7, CMP #### [facility] [address] [place] [address] [address] Phong Thayer Albumin/Globulin [Mass ratio] 1.0 {ratio} Normal [facility] Comment on above: Performed By: #### T SH, T4, T7, CMP #### [facility] [address] [address] [address] Phong Thayer ALP [Catalytic activity/Vol] 90 U/L Normal 46-116 [facility] Comment on above: Performed By: #### T SH, T4, T7, CMP #### [facility] [address] [address] [address] Phong Thayer ALT [Catalytic activity/Vol] 27 U/L Normal 14-59 [facility] Comment on above: Performed By: #### T SH, T4, T7, CMP #### [facility] [address] [address] [address] Phong Thayer Anion gap [Moles/Vol] 14.2 mmol/L Normal [facility] Comment on above: Performed By: #### T SH, T4, T7, CMP #### [facility] [address] [address] [address] Phong Thayer AST [Catalytic activity/Vol] 13 U/L Critically low 15-37 [facility] Comment on above: Performed By: #### T SH, T4, T7, CMP #### [facility] [address] [address] [address] Phong Thayer Bilirubin [Mass/Vol] 0.2 mg/dL Normal 0.2-1.0 [facility] Comment on above: Performed By: #### T SH, T4, T7, CMP #### [facility] [address] [place] [address] Dr. Phong Thayer Calcium [Mass/Vol] 9.0 mg/dL Normal 8.5-10.1 [facility] Comment on above: Performed By: #### T SH, T4, T7, CMP #### [facility] [address] [place] [address] Dr. Phong Thayer Chloride [Moles/Vol] 103 mmol/L Normal 98-107 [facility] Comment on above: Performed By: #### T SH, T4, T7, CMP #### [facility] [address] [place] [address] Dr. Phong Thayer CO2 [Moles/Vol] 23.9 mmol/L Normal 21.0-32.0 [facility] Comment on above: Performed By: #### T SH, T4, T7, CMP #### [facility] [address] [place] [address] Dr. Phong Thayer Creatinine [Mass/Vol] 0.76 mg/dL Normal 0.55-1.02 [facility] Comment on above: Performed By: #### T SH, T4, T7, CMP #### [facility] [address] [place] [address] Dr. Phong Thayer EGFR-AF RWANDAN >60 Normal >=60 [facility] Comment on above: Performed By: #### T SH, T4, T7, CMP #### [facility] [address] [place] [address] Dr. Phong Thayer EGFR-NON AF RWANDAN >60 Normal >=60 [facility] Comment on above: Performed By: #### T SH, T4, T7, CMP #### [facility] [address] [place] [address] Dr. Phong Thayer Globulin (S) [Mass/Vol] 3.6 g/dL Normal [facility] Comment on above: Performed By: #### T SH, T4, T7, CMP #### [facility] [address] [place] [address] Dr. Phong Thayer Glucose [Mass/Vol] 95 mg/dL Normal 74-106 [facility] Comment on above: Performed By: #### T SH, T4, T7, CMP #### [facility] [address] [place] [address] Dr. Phong Thayer Potassium [Moles/Vol] 4.1 mmol/L Normal 3.5-5.1 [facility] Comment on above: Performed By: #### T SH, T4, T7, CMP #### [facility] [address] [place] [address] Dr. Phong Thayer Protein [Mass/Vol] 7.2 g/dL Normal 6.4-8.2 [facility] Comment on above: Performed By: #### T SH, T4, T7, CMP #### [facility] [address] [place] [address] Dr. Phong Thayer Sodium [Moles/Vol] 137 mmol/L Normal 136-145 [facility] Comment on above: Performed By: #### T SH, T4, T7, CMP #### [facility] [address] [place] [address] Dr. Phong Thayer Urea nitrogen [Mass/Vol] 13.0 mg/dL Normal 7.0-18.0 [facility] Comment on above: Performed By: #### T SH, T4, T7, CMP #### [facility] [address] [place] [address] Dr. Phong Thayer Urea nitrogen/Creatinine [Mass ratio] 17.1 mg/mg Normal [facility] Comment on above: Performed By: #### T SH, T4, T7, CMP #### [facility] [address] [place] [address] Dr. Phong Thayer T4on 09-15-2022 T4 [Mass/Vol] 7.40 ug/dL Normal 4.80-13.90 [facility] Comment on above: Performed By: #### T SH, T4, T7, CMP #### [facility] [address] [address] [address] Phong Thayer TSHon 09-15-2022 TSH 2.515 uIU/mL Normal 0.358-3.740 [facility] Comment on above: Performed By: #### T SH, T4, T7, CMP #### [facility] [address] [address] [address] Phong Thayer VITAMIN B12on 09-15-2022 Cobalamin (Vitamin B12) [Mass/Vol] 423.0 pg/mL Normal 193.0-986.0 [facility] Comment on above: Performed By: #### V ITCLAIRE, VITB12 ####[facility] [address] [address]DrAnnalee Thayer VITAMIN D 25 OHon 09-15-2022 VIT D 25-OH 28.3 ng/mL Normal [facility] Comment on above: Performed By: #### V ITCLAIRE, VITB12 ####[facility] [address] [address]Dr. Phong Thayer VIT D RANGES SEE BELOW Normal [facility] Comment on above: Result Comment: <20 ng/mL Vit D deficient 20 - <30 ng/mL Vit D insufficient 30 - 100 ng/mL Vit D sufficient >100 ng/mL Potential Toxicity Performed By: #### V ITAD, VITB12 ####[facility] [address] [address]DrAnnalee Thayer A1C HEMOGLOBINon 09-02-2022 HbA1c (Bld) [Mass fraction] 5.1 % [employer] Other HbA1c (Bld) [Mass fraction]o n 09-02-2022 A1C HEMOGLOBIN [email or web address] [facility] Lab Resultso n 07-19-2022 Lab - Reference Lab Results [id number]#[id number] [facility] T-Spoton 07-16-2022 T-Spot See Report Normal [facility] Comment on above: Performed By: #### 5 [id number], [id number], [id number] ####[facility] (DEFAULT)[address] [place] [address] HBSab Qnt LCon 07-14-2022 Hep B Surf Ab Quant LC 301.3 mIU/mL Invalid Interpretation Code Immunity>9.9 [facility] Comment on above: Result Comment: Stat us of Immunity Anti-HBs Level Inconsistent with Immunity 0.0 - 9.9 Consistent with Immunity >9.9 Performed At: [address] [id number] Pancho Higgins PhD Ph:[phone] Performed By: #### 5 [id number], [id number] ####[facility] (DEFAULT)[address] [place] [address] Lab - Toxicology Resultson 0 07-14-2022 Lab - Toxicology Results [id number]#[id number] 0OTGTIFF Normal [facility] Measles/Mumps/Rubella Immuni ty LCon 07-14-2022 Mumps Abs, IgG LC 38.4 AU/mL Invalid Interpretation Code Immune >10.9 [facility] Comment on above: Result Comment: Nega tive <9.0 Equivocal 9.0 - 10.9 Positive >10.9 A positive result generally indicates past exposure to Mumps virus or previous vaccination. Performed At: [facility] [address] [place], [place] [id number] Pancho Higgins PhD Ph:[phone] Performed By: #### 5 [id number], [id number] ####[facility] (DEFAULT)[address] [place] [address] Rubella Antibodies, IgG LC 5.78 index Invalid Interpretation Code Immune >0.99 [facility] Comment on above: Result Comment: Non- immune <0.90 Equivocal 0.90 - 0.99 Immune >0.99 Performed By: #### 5 [id number], [id number], [id number] ####[facility] (DEFAULT)[address] [place] [address] Rubeola Ab, IgG, EIA LC 72.4 AU/mL Invalid Interpretation Code Immune >16.4 [facility] Comment on above: Result Comment: Nega tive <13.5 Equivocal 13.5 - 16.4 Positive >16.4 Presence of antibodies to Rubeola is presumptive evidence of immunity except when acute infection is suspected. Performed By: #### 5 [id number], [id number], [id number] ####[facility] (DEFAULT)[address] [place] [address] Nicotine Metabolite, Urine L Con 07-14-2022 Cotinine LC Negative Invalid Interpretation Code [id number] [facility] Comment on above: Result Comment: Perf ormed At: [facility] [address] [place], [place] [id number] Mark Puentes PhD Ph:[phone] Performed By: #### 1 [id number] ####[facility] (DEFAULT)[address] [place] [address] XR FOOT AIDA MIN 3 VIEWSon XR [...] COATS Date: 2022-07-07 13:58 Normal [facility] Urine culture routineOrdered By: AME ZARAGOZA on 05-27-2022 Bacteria identified Cx Nom (U) Staphylococcus saprophyticus [facility] Urinalysis - AUTOMATEDon Appearance (U) clear [employer] Other Bilirubin Ql (U) Negative [employer] Other Color (U) lt. yellow [employer] Other Glucose Ql (U) Negative [employer] Other Hemoglobin Ql (U) moderate [employer] Other Ketones Ql (U) Negative [employer] Other Leukocyte esterase Test strip Ql (U) small [employer] Other Nitrite Ql (U) Negative [employer] Other pH (U) 6.0 [pH] [employer] Other Protein Ql (U) Negative [employer] Other Specific gravity (U) [Rel density] 1.010 [employer] Other Urobilinogen (U) [Mass/Vol] 0.2 mg/dL [employer] Other Urinalysis - AUTOMATED [employer] Other Urine Cultureon 05-24-2022 Bacteria identified Cx Nom (U) [employer] Other XR hand LT min 3V*on 021 XR hand LT min 3V* [facility] [employer] Other XR hand LT min 3V* [facility] [employer] Other XR hand LT min 3V* [address] [place] [address] [employer] Other XR hand LT min 3V* [place] [address] [employer] Other XR hand LT min 3V* XRay Report [employer] Other XR hand LT min 3V* Signed [employer] Other XR hand LT min 3V* Patient: Noble Castillo MR#: [id number] [employer] Other XR hand LT min 3V* 7804 [employer] Other XR hand LT min 3V* : 1985 Acct:[id number] [employer] Other XR hand LT min 3V* Age/Sex: 36 / F ADM Date: 10/02/21 [employer] Other XR hand LT min 3V* Loc: XDUCLY Room: Type: REG CLI [employer] Other XR hand LT min 3V* Attending Dr: Sera ALFORD [employer] Other XR hand LT min 3V* Ordering Provider: PRASHANTH Jordan [employer] Other XR hand LT min 3V* Date of Service: 10/02/21 [employer] Other XR hand LT min 3V* XR/XR hand LT min 3V*: Finger pain, left [employer] Other XR hand LT min 3V* Copies to: PRASHANTH Jordan [employer] Other XR hand LT min 3V* 3 viewsLEFT hand plain film [employer] Other XR hand LT min 3V* COMPARISON:None N Discera Other XR hand LT min 3V* HISTORY:LEFT hand injury [employer] Other XR hand LT min 3V* No fracture, dislocation or focal soft tissue abnormality seen. [employer] Other XR hand LT min 3V* XR/XR hand LT min 3V* [employer] Other XR hand LT min 3V* IMPRESSION:No acute findings [employer] Other XR hand LT min 3V* Impression dictated by: Fuad Swain M.D.10/02/2021 6:01 PM [employer] Other XR hand LT min 3V* Dictation Location: [place] [address] [employer] Other XR hand LT min 3V* Transcribed By: PWS 10/02/21 1801 [employer] Other XR hand LT min 3V* Dictated By: Fuad Swain DO 10/02/21 1759 [employer] Other XR hand LT min 3V* Signed By: [employer] Other XR hand LT min 3V* 10/02/21 1801 [employer] Other Automated basophil %on 11-25 Basophils/100 WBC (Bld) 1.0 % [facility] Automated basophil counton 0 11-25-2020 Basophils (Bld) [#/Vol] 0.1 10*3/uL 0.0-0.2 [facility] Automated blood lymphocyte c ount (number/volume)on 11-25-2020 Lymphocytes (Bld) [#/Vol] 2.2 10*3/uL 1.00-4.8 [facility] Automated blood lymphocyte c ount as percentage of total leukocyteson 11-25-2020 Lymphocytes/100 WBC (Bld) 29.2 % [facility] Automated blood monocyte cou nton 11-25-2020 Monocytes (Bld) [#/Vol] 0.4 10*3/uL 0.0-0.8 [facility] Automated blood platelet cou nt (count/volume)on 11-25-2020 Platelets (Bld) [#/Vol] 247 10*3/uL 150-450 [facility] Automated blood platelet ton n volume measurementon 11-25-2020 Platelet mean volume (Bld) [Entitic vol] 8.8 fL 6.3-10.7 [facility] Automated eosinophil %on Eosinophils/100 WBC (Bld) 1.1 % [facility] Automated eosinophil counton 11-25-2020 Eosinophils (Bld) [#/Vol] 0.1 10*3/uL 0.0-0.45 [facility] Automated erythrocyte distri bution width ratioon 11-25-2020 Erythrocyte distribution width (RBC) [Ratio] 13.3 % 11.9-15.3 [facility] Automated erythrocyte mean c orpuscular hemoglobin (mass per erythrocyte)on 11-25-2020 MCH (RBC) [Entitic mass] 29.2 pg 24.7-34.3 [facility] Automated erythrocyte mean c orpuscular hemoglobin concentration measurement (mass/volon 11-25-2020 MCHC (RBC) [Mass/Vol] 33.6 g/dL 32.0-35.0 [facility] Automated erythrocyte mean c orpuscular volumeon 11-25-2020 MCV (RBC) [Entitic vol] 87.0 fL 80-100 [facility] Automated monocyte %on 11-25 Monocytes/100 WBC (Bld) 5.4 % [facility] Automated neutrophil %on Neutrophils/100 WBC (Bld) 63.3 % [facility] Blood erythrocytes automated count (number/volume)on 11-25-2020 RBC (Bld) [#/Vol] 4.64 10*6/uL 3.60-5.00 [facility] Blood hemoglobin measurement (mass/volume)on 11-25-2020 Hemoglobin (Bld) [Mass/Vol] 13.6 g/dL 11.8-15.4 [facility] Blood leukocytes automated c ount (number/volume)on 11-25-2020 WBC (Bld) [#/Vol] 7.7 10*3/uL 3.8-11.6 [facility] Blood neutrophil count by au tomated method (number/volume)on 11-25-2020 Neutrophils (Bld) [#/Vol] 4.9 10*3/uL 1.8-7.7 [facility] COVID-19 Positive/Negativeon 11-25-2020 COVID-19 Positive/Negative Negative Negative [facility] Comment on above: Testing for SARS-CoV -2 by RT-PCRThis test was developed and its performance characteristics determined by [employer] and validated at the [facility]. This test has not been [...] among non-blacks MDRD (S/P/Bld) [Vol rate/Area] mL/min/{1.73_m2} [facility] Hematocrit [Volume Fraction] of Blood by Automated counton 11-25-2020 Hematocrit (Bld) [Volume fraction] 40.4 % 34.0-46.4 [facility] Otheron 11-25-2020 Coronavirus 2019 PCR Interp N/A [facility] GFR/1.73 sq M.predicted MDRD (S/P/Bld) [Vol rate/Area] mL/min/{1.73_m2} [facility] Comment on above: GFR estimated refere nce range: According to KDOQI guidelines, <60 ml/min/1.73m2 is sufficient to diagnose a patient with chronic kidney disease. Nucleated RBC/100 WBC (Bld) [Ratio] 0.0 % 0-0.5 [facility] Creatinine Clearance (Chem N/A [facility] Serum or plasma calcium eleni urement (mass/volume)on 11-25-2020 Calcium [Mass/Vol] 9.3 mg/dL 8.2-10.2 [facility] Serum or plasma chloride ton surement (moles/volume)on 11-25-2020 Chloride [Moles/Vol] 104 mmol/L 95-114 [facility] Serum or plasma creatinine m easurement with calculation of estimated glomerular filtron 11-25-2020 Creatinine [Mass/Vol] 0.76 mg/dL 0.44-1.03 [facility] Serum or plasma glucose eleni urement (mass/volume)on 11-25-2020 Glucose [Mass/Vol] 96 mg/dL 70-100 [facility] Comment on above: ADA recommended refe rence rangeRandom Glucose Reference Range is dependent on time and content of last meal. Glucose of more than 200 mg/dL in a nonstressed, ambulatory subject supports the diagnosis of Diabetes Mellitus. Serum or plasma potassium me asurement (moles/volume)on 11-25-2020 Potassium [Moles/Vol] 4.1 mmol/L 3.5-5.1 [facility] Serum or plasma sodium measu rement (moles/volume)on 11-25-2020 Sodium [Moles/Vol] 138 mmol/L 136-146 [facility] Serum or plasma total carbon dioxide measurement (moles/volume)on 11-25-2020 CO2 [Moles/Vol] 24.6 mmol/L 22.0-30.0 [facility] Serum or plasma urea nitroge n measurement (mass/volume)on 11-25-2020 Urea nitrogen [Mass/Vol] 6 mg/dL 9-23 [facility] COVID-19 SOFIAon 10-27-2020 COVID-19 MINERVA Negative Negative [facility] Comment on above: This is a duplicate test result based off of the Minerva SARS Antigen (LIZ) test performed within the Microbiology department. Otheron 10-27-2020 SARS Antigen (LFIA) [facility] Albumin [Mass/volume] in Ser um or Plasmaon 09-12-2020 Albumin [Mass/Vol] 3.9 g/dL 3.2-5.5 [facility] Cholesterol [Mass/volume] in Serum or Plasmaon 09-12-2020 Cholesterol [Mass/Vol] 175 mg/dL 140-200 [facility] Comment on above: Chol less than 200 m g/dl low riskChol 201-239 mg/dl borderline riskChol 240 mg/dl and greater high risk Cholesterol in LDL [Mass/vol ume] in Serum or Plasma by calculationon 09-12-2020 Cholesterol in LDL [Mass/Vol] 74 mg/dL 0-100 [facility] Comment on above: LDL ATP III CLASSIFI CATIONLDL less than 100 mg/dL OptimalLDL 100-129 mg/dL Near or above optimalLDL 130-159 mg/dL Borderline highLDL 160-189 mg/dL HighLDL greater than 189 mg/dL Very high Cholesterol in VLDL [Mass/vo lume] in Serum or Plasma by calculationon 09-12-2020 Cholesterol in VLDL [Mass/Vol] 44 mg/dL [facility] Estimated glomerular filtrat ion rate (GFR) non- Americanon 09-12-2020 GFR/1.73 sq M predicted among non-blacks MDRD (S/P/Bld) [Vol rate/Area] mL/min/{1.73_m2} [facility] Metabolic Panelon 09-12-2020 Glucose [Mass/Vol] 81 mg/dL 70-100 [facility] Otheron 09-12-2020 GFR/1.73 sq M.predicted MDRD (S/P/Bld) [Vol rate/Area] mL/min/{1.73_m2} [facility] Comment on above: GFR estimated refere nce range: According to KDOQI guidelines, <60 ml/min/1.73m2 is sufficient to diagnose a patient with chronic kidney disease. Pharmacy Creatinine Clearance (Chem N/A [facility] Protein [Mass/volume] in Ser um or Plasmaon 09-12-2020 Protein [Mass/Vol] 6.5 g/dL 6.1-7.9 [facility] Serum globulin measurement b y calculation (mass/volume)on 09-12-2020 Globulin (S) [Mass/Vol] 2.6 g/dL [facility] Serum or plasma alanine rizvi otransferase measurement without P-5'-P (enzymatic activion 09-12-2020 ALT No additional P-5'-P [Catalytic activity/Vol] 22 U/L 1060 [facility] Serum or plasma albumin/glob ulin mass ratioon 09-12-2020 Albumin/Globulin [Mass ratio] 1.5 {ratio} [facility] Serum or plasma alkaline katherine sphatase measurement (enzymatic activity/volume)on 09-12-2020 ALP [Catalytic activity/Vol] 76 U/L 32-92 [facility] Serum or plasma aspartate am inotransferase measurement (enzymatic activity/volume)on 09-12-2020 AST [Catalytic activity/Vol] 18 U/L 10-42 [facility] Serum or plasma calcium eleni urement (mass/volume)on 09-12-2020 Calcium [Mass/Vol] 9.3 mg/dL 8.2-10.2 [facility] Serum or plasma chloride ton surement (moles/volume)on 09-12-2020 Chloride [Moles/Vol] 101 mmol/L 95-114 [facility] Serum or plasma creatinine m easurement with calculation of estimated glomerular filtron 09-12-2020 Creatinine [Mass/Vol] 0.67 mg/dL 0.44-1.03 [facility] Serum or plasma high density lipoprotein (HDL) cholesterol measurementon 09-12-2020 Cholesterol in HDL [Mass/Vol] 57 mg/dL 35-85 [facility] Comment on above: HDL CHOL ATP-III CLA SSIFICATION Cardiovascular RiskHDL > or equal to 60 mg/dL LOWHDL < 40 mg/dL HIGH Serum or plasma potassium me asurement (moles/volume)on 09-12-2020 Potassium [Moles/Vol] 3.9 mmol/L 3.5-5.1 [facility] Serum or plasma sodium measu rement (moles/volume)on 09-12-2020 Sodium [Moles/Vol] 136 mmol/L 136-146 [facility] Serum or plasma total biliru bin measurement (mass/volume)on 09-12-2020 Bilirubin [Mass/Vol] 0.5 mg/dL 0.3-1.2 [facility] Serum or plasma total carbon dioxide measurement (moles/volume)on 09-12-2020 CO2 [Moles/Vol] 23.4 mmol/L 22.0-30.0 [facility] Serum or plasma total choles terol/high density lipoprotein (HDL) cholesterol mass yany 09-12-2020 Cholesterol.total/Ch olesterol in HDL [Mass ratio] 3.1 {ratio} [facility] Serum or plasma urea nitroge n measurement (mass/volume)on 09-12-2020 Urea nitrogen [Mass/Vol] 7 mg/dL 9-23 [facility] Triglyceride [Mass/volume] i n Serum or Plasmaon 09-12-2020 Triglyceride [Mass/Vol] 220 mg/dL 35-149 [facility] Comment on above: TRIG ATP III CLASSIF ICATIONTRIG less than 150 mg/dL NormalTRIG 150-199 mg/dL Borderline highTRIG 200-500 mg/dL High TRIG greater than 500 mg/dL Very highStandard traceable to the Center for Disease Conrtrol and Prevention (CDC) test method. Vital Signs Date Time Vital Sign Value Performing Clinician Facility 11-01-2024 16:30-0500 Body mass index (BMI) [Ratio] 33.99 kg/m2 Christine Helton BILLBOARD MECHANIC Work Phone: [facility] 11-01-2024 16:30-0500 Body weight 89.81 kg Christine Helton BILLBOARD MECHANIC Work Phone: [facility] 11-01-2024 16:30-0500 Diastolic blood pressure 73 mm[Hg] Christine Helton BILLBOARD MECHANIC Work Phone: [facility] 11-01-2024 16:30-0500 Heart rate 90 /min Christine Helton BILLBOARD MECHANIC Work Phone: [facility] 11-01-2024 16:30-0500 Systolic blood pressure 126 mm[Hg] Christine Helton BILLBOARD MECHANIC Work Phone: [facility] 09-19-2024 16:38-0500 Body height 172.72 cm [facility] 09-19-2024 16:38-0500 Body mass index (BMI) [Ratio] 30.2 kg/m2 [facility] 09-19-2024 16:38-0500 Body temperature 98.1 [degF] [facility] 09-19-2024 16:38-0500 Body weight 90.03 kg [facility] 09-19-2024 16:38-0500 Diastolic blood pressure 76 mm[Hg] [facility] 09-19-2024 16:38-0500 Heart rate 85 /min [facility] 09-19-2024 16:38-0500 SaO2% (BldA) [Mass fraction] 96 % [facility] 09-19-2024 16:38-0500 Systolic blood pressure 118 mm[Hg] [facility] 09-05-2024 16:28-0500 Body mass index (BMI) [Ratio] 34.16 kg/m2 Chelsea Minerva-Nossek ADMINISTRATIVE LIBRARY ASSISTANT-[employer]OMING HOUSE INSPECTOR Work Phone: [facility] 09-05-2024 16:28-0500 Body weight 90.27 kg Chelsea Minerva-Nossek ADMINISTRATIVE LIBRARY ASSISTANT-ROOMING HOUSE INSPECTOR Work Phone: [facility] 09-05-2024 16:28-0500 Diastolic blood pressure 72 mm[Hg] Chelsea Minerva-Nossek ADMINISTRATIVE LIBRARY ASSISTANT-ROOMING HOUSE INSPECTOR Work Phone: [facility] 09-05-2024 16:28-0500 Heart rate 78 /min Chelsea Minerva-Nossek ADMINISTRATIVE LIBRARY ASSISTANT-ROOMING HOUSE INSPECTOR Work Phone: [facility] 09-05-2024 16:28-0500 Systolic blood pressure 108 mm[Hg] Chelsea Minerva-Nossek ADMINISTRATIVE LIBRARY ASSISTANT-ROOMING HOUSE INSPECTOR Work Phone: [facility] 08-09-2024 08:57-0400 Body mass index (BMI) [Ratio] 34.67 kg/m2 Chelsea Minerva-Nossek ADMINISTRATIVE LIBRARY ASSISTANT-ROOMING HOUSE INSPECTOR Work Phone: [facility] 08-09-2024 08:57-0400 Body weight 91.63 kg Chelsea Minerva-Nossek ADMINISTRATIVE LIBRARY ASSISTANT-ROOMING HOUSE INSPECTOR Work Phone: [facility] 08-09-2024 08:57-0400 Diastolic blood pressure 78 mm[Hg] Chelsea Palma-Idalmissek ADMINISTRATIVE LIBRARY ASSISTANT-ROOMING HOUSE INSPECTOR Work Phone: [facility] 08-09-2024 08:57-0400 Heart rate 82 /min Chelsea Palma-Nossek ADMINISTRATIVE LIBRARY ASSISTANT-ROOMING HOUSE INSPECTOR Work Phone: [facility] 08-09-2024 08:57-0400 Systolic blood pressure 100 mm[Hg] Chelsea Palma-Idalmissek ADMINISTRATIVE LIBRARY ASSISTANT-ROOMING HOUSE INSPECTOR Work Phone: [facility] 07-17-2024 08:25-0400 Body height 162.6 cm Ericka Aguilar BILLBOARD MECHANIC Work Phone: [facility] 07-17-2024 08:25-0400 Body mass index (BMI) [Ratio] 35.39 kg/m2 Ericka Aguilar BILLBOARD MECHANIC Work Phone: [facility] 07-17-2024 08:25-0400 Body weight 93.53 kg Ericka Aguilar BILLBOARD MECHANIC Work Phone: [facility] 07-17-2024 08:25-0400 Diastolic blood pressure 76 mm[Hg] Ericka Aguilar BILLBOARD MECHANIC Work Phone: [facility] 07-17-2024 08:25-0400 Heart rate 85 /min Ericka Aguilar BILLBOARD MECHANIC Work Phone: [facility] 07-17-2024 08:25-0400 SaO2% (BldA) [Mass fraction] 97 % Ericka Aguilar BILLBOARD MECHANIC Work Phone: [facility] 07-17-2024 08:25-0400 Systolic blood pressure 128 mm[Hg] Ericka Aguilar BILLBOARD MECHANIC Work Phone: [facility] 04-09-2024 13:31-0400 Blood Pressure Location Lester Mcelroy [facility] 04-09-2024 13:31-0400 Diastolic blood pressure 84 mm[Hg] Lester Mcelroy [facility] 04-09-2024 13:31-0400 Heart rate 61 /min Lester Mcelroy [facility] 04-09-2024 13:31-0400 Respiratory rate 16 /min Lester Dominguezshira [facility] 04-09-2024 13:31-0400 Systolic blood pressure 122 mm[Hg] Jeannettekristyn Angelicashira [facility] 02-26-2024 14:18-0400 Body height 172.72 cm [facility] 02-26-2024 14:18-0400 Body mass index (BMI) [Ratio] 33.1 kg/m2 [facility] 02-26-2024 14:18-0400 Body temperature 98.2 [degF] [facility] 02-26-2024 14:18-0400 Body weight 98.99 kg [facility] 02-26-2024 14:18-0400 Diastolic blood pressure 76 mm[Hg] [facility] 02-26-2024 14:18-0400 Heart rate 68 /min [facility] 02-26-2024 14:18-0400 Respiratory rate 18 /min [facility] 02-26-2024 14:18-0400 SaO2% (BldA) [Mass fraction] 98 % [facility] 02-26-2024 14:18-0400 Systolic blood pressure 120 mm[Hg] [facility] 10-17-2023 16:30-0500 Body height 162.56 cm Ml Chisholm Other [employer] Other 10-17-2023 16:30-0500 Body mass index (BMI) [Ratio] 34.67 kg/m2 Ml Chisholm Other [employer] Other 10-17-2023 16:30-0500 Body weight 91.63 kg Ml Chisholm Other [employer] Other 10-17-2023 16:30-0500 Diastolic blood pressure 71 mm[Hg] Ml Chisholm Other [employer] Other 10-17-2023 16:30-0500 Respiratory rate 18 /min Ml Chisholm Other [employer] Other 10-17-2023 16:30-0500 SaO2% (BldA) [Mass fraction] 96 % [facility]l Chisholm Other [place] [employer] Other 10-17-2023 16:30-0500 Systolic blood pressure 112 mm[Hg] Ml Chisholm Other [place] [employer] Other 08-10-2023 11:55-0400 Body height 162.56 cm Sera Luda Other [place] [employer] Other 08-10-2023 11:55-0400 Body mass index (BMI) [Ratio] 37.24 kg/m2 Sera Lares Other [place] [employer] Other 08-10-2023 11:55-0400 Body temperature 97.7 [degF] Sera Luda Other [place] [employer] Other 08-10-2023 11:55-0400 Body weight 98.43 kg Sera Lares Other [place] [employer] Other 08-10-2023 11:55-0400 Respiratory rate 18 /min Sera Lares Other [place] [employer] Other 08-10-2023 11:55-0400 SaO2% (BldA) [Mass fraction] 98 % Sera Lares Other [place] [employer] Other 09-08-2022 10:30-0500 Body height 162.56 cm Marleni Missler Other [place] [employer] Other 09-08-2022 10:30-0500 Body mass index (BMI) [Ratio] 34.93 kg/m2 Marleni Missler Other [place] [employer] Other 09-08-2022 10:30-0500 Body weight 92.31 kg Marleni Missler Other [place] [employer] Other 09-08-2022 10:30-0500 Diastolic blood pressure 77 mm[Hg] Marleni Missler Other [place] [employer] Other 09-08-2022 10:30-0500 Respiratory rate 18 /min Marleni Missler Other [place] [employer] Other 09-08-2022 10:30-0500 SaO2% (BldA) [Mass fraction] 96 % Marleni Missler Other [place] [employer] Other 09-08-2022 10:30-0500 Systolic blood pressure 117 mm[Hg] Marleni Missler Other [place] [employer] Other 09-02-2022 15:00-0400 Body height 162.56 cm Ame Zaragoza Other [place] [employer] Other 09-02-2022 15:00-0400 Body mass index (BMI) [Ratio] 34.5 kg/m2 Ame Zaragoza Other [place] [employer] Other 09-02-2022 15:00-0400 Body temperature 98.6 [degF] Ame Zaragoza Other [place] [employer] Other 09-02-2022 15:00-0400 Body weight 91.17 kg Ame Zaragoza Other [place] [employer] Other 09-02-2022 15:00-0400 Diastolic blood pressure 82 mm[Hg] Ame Zaragoza Other [place] [employer] Other 09-02-2022 15:00-0400 Respiratory rate 18 /min Ame Zaragoza Other [place] [employer] Other 09-02-2022 15:00-0400 SaO2% (BldA) [Mass fraction] 86 % Ame Zaragoza Other [place] [employer] Other 09-02-2022 15:00-0400 Systolic blood pressure 129 mm[Hg] Ame Zaragoza Other [place] [employer] Other 07-10-2022 12:10-0400 Body height 162.56 cm Ame Zaragoza Other [place] [employer] Other 07-10-2022 12:10-0400 Body mass index (BMI) [Ratio] 33.91 kg/m2 Ame Zaragoza Other [place] [employer] Other 07-10-2022 12:10-0400 Body temperature 98.6 [degF] Ame Greyault Other [place] [employer] Other 07-10-2022 12:10-0400 Body weight 89.63 kg Ame Zaragoza Other [place] [employer] Other 07-10-2022 12:10-0400 Diastolic blood pressure 81 mm[Hg] Ame Zaragoza Other [place] [employer] Other 07-10-2022 12:10-0400 Respiratory rate 18 /min Ame Zaragoza Other [place] [employer] Other 07-10-2022 12:10-0400 SaO2% (BldA) [Mass fraction] 98 % Ame Zaragoza Other [place] [employer] Other 07-10-2022 12:10-0400 Systolic blood pressure 132 mm[Hg] Ame Zaragoza Other [place] [employer] Other 05-24-2022 17:00-0400 Body height 162.56 cm Ame Zaragoza Other [place] [employer] Other 05-24-2022 17:00-0400 Body mass index (BMI) [Ratio] 34.67 kg/m2 Ame Zaragoza Other [place] [employer] Other 05-24-2022 17:00-0400 Body temperature 98 [degF] Ame Greyault Other [place] [employer] Other 05-24-2022 17:00-0400 Body weight 91.63 kg Ame Zaragoza Other [place] [employer] Other 05-24-2022 17:00-0400 Diastolic blood pressure 70 mm[Hg] Ame Zaragoza Other [place] [employer] Other 05-24-2022 17:00-0400 Respiratory rate 18 /min Ame Zaragoza Other [place] [employer] Other 05-24-2022 17:00-0400 SaO2% (BldA) [Mass fraction] 99 % Ame Zaragoza Other [place] [employer] Other 05-24-2022 17:00-0400 Systolic blood pressure 122 mm[Hg] Ame Zaragoza Other [place] [employer] Other 10-02-2021 18:20-0500 Body height 162.56 cm Sera Lares Other [place] [employer] Other 10-02-2021 18:20-0500 Body mass index (BMI) [Ratio] 35.01 kg/m2 Sera Lares Other [place] [employer] Other 10-02-2021 18:20-0500 Body temperature 98.2 [degF] Sera Lares Other [place] [employer] Other 10-02-2021 18:20-0500 Body weight 92.53 kg Sera Lares Other [place] [employer] Other 10-02-2021 18:20-0500 Diastolic blood pressure 81 mm[Hg] Sera Lares Other [place] [employer] Other 10-02-2021 18:20-0500 Respiratory rate 18 /min Sera Lares Other [place] [employer] Other 10-02-2021 18:20-0500 SaO2% (BldA) [Mass fraction] 99 % Sera Lares Other [place] [employer] Other 10-02-2021 18:20-0500 Systolic blood pressure 118 mm[Hg] Sera Lares Other [place] [employer] Other 08-22-2021 15:15-0400 Body height 162.56 cm Christiana Ginty Other [place] [employer] Other 08-22-2021 15:15-0400 Body mass index (BMI) [Ratio] 34.33 kg/m2 Christiana Ginty Other [place] [employer] Other 08-22-2021 15:15-0400 Body weight 90.72 kg Christiana Ginty Other [place] [employer] Other Encounters Encounter Date Encounter Type Care Provider Facility Start: 11-06-2024 End: 11-06-2024 Refill Chelsea Virk ADMINISTRATIVE LIBRARY ASSISTANT-[facility] Work Phone: [facility] Comment on above: Bipolar II disorder, most recent episode major depressive (CMS/HCC) Start: 11-01-2024 End: 11-01-2024 ambulatory CHRISTINE HELTON Not Available Start: 11-01-2024 End: 11-01-2024 Office outpatient visit 25 minutes Christine Helton BILLBOARD MECHANIC Work Phone: [employer] [facility] Comment on above: Chronic migraine wit hout aura without status migrainosus, not intractable (CMS/HCC) (Primary Dx); Tremor Start: 11-01-2024 End: 11-01-2024 Bamboo flowsheet Christine Helton BILLBOARD MECHANIC Work Phone: [address] Start: 11-01-2024 End: 11-01-2024 Bamboo flowsheet Christine Helton BILLBOARD MECHANIC Work Phone: [employer] [address] Start: 09-19-2024 End: 09-19-2024 ambulatory [facility] Work Phone: Start: 09-19-2024 End: 09-19-2024 Patient encounter procedure [facility] [place] Work Phone: Start: 09-05-2024 End: 09-05-2024 ambulatory CHELSEA Ribeiro MINERVA-NOSSEK Not Available Start: 09-05-2024 End: 09-05-2024 Office outpatient visit 15 minutes Chelsea Ribeiro Minerva-Nossek ADMINISTRATIVE LIBRARY ASSISTANT-ROOMING HOUSE INSPECTOR Work Phone: [facility] Comment on above: Bipolar II disorder, most recent episode major depressive (CMS/HCC); Insomnia, unspecified type Start: 09-05-2024 End: 09-05-2024 Bamboo flowsheet Chelsea Ribeiro Minerva-Nossek ADMINISTRATIVE LIBRARY ASSISTANT-ROOMING HOUSE INSPECTOR Work Phone: [facility] Start: 09-05-2024 End: 09-05-2024 Bamboo flowsheet Chelsea Ribeiro Minerva-Nossek ADMINISTRATIVE LIBRARY ASSISTANT-ROOMING HOUSE INSPECTOR Work Phone: [facility] Start: 08-09-2024 End: 08-09-2024 Bamboo flowsheet Chelsea Ribeiro Minerva-Nossek ADMINISTRATIVE LIBRARY ASSISTANT-ROOMING HOUSE INSPECTOR Work Phone: [facility] Start: 08-09-2024 End: 08-09-2024 Bamboo flowsheet Chelsea Ribeiro Minerva-Nossek ADMINISTRATIVE LIBRARY ASSISTANT-ROOMING HOUSE INSPECTOR Work Phone: [facility] Start: 08-09-2024 End: 08-09-2024 Office outpatient visit 25 minutes Chelsea Ribeiro Minerva-Nossek ADMINISTRATIVE LIBRARY ASSISTANT-ROOMING HOUSE INSPECTOR Work Phone: [facility] Comment on above: Bipolar II disorder, most recent episode major depressive (CMS/HCC); Generalized anxiety disorder (CMS/HCC) Start: 08-09-2024 End: 08-09-2024 ambulatory CHELSEA Ribeiro MINERVA-NOSSEK Not Available Start: 07-17-2024 End: 07-17-2024 Bamboo flowsheet Ericka Aguilar BILLBOARD MECHANIC [facility] Start: 07-17-2024 End: 07-17-2024 Bamboo flowsheet Ericka Aguilar BILLBOARD MECHANIC Work Phone: [address] Start: 07-17-2024 End: 07-17-2024 Telephone encounter Ericka Aguilar BILLBOARD MECHANIC [facility] Start: 07-17-2024 End: 07-17-2024 Office outpatient visit 25 minutes Ericka Aguilar BILLBOARD MECHANIC [facility] Comment on above: Chronic migraine wit hout aura without status migrainosus, not intractable (CMS/HCC) (Primary Dx); Tremor Start: 07-17-2024 End: 07-17-2024 ambulatory ERICKA AGUILAR Not Available Start: 07-13-2024 End: 07-13-2024 ambulatory ISAAK BERGER Not Available Start: 07-13-2024 End: 07-13-2024 Bamboo flowsheet Isaak Berger BLAST FURNACE OPERATOR [facility] Start: 07-13-2024 End: 07-13-2024 Bamboo flowsheet Isaak Berger BLAST FURNACE OPERATOR [facility] Start: 07-04-2024 End: 07-04-2024 Bamboo flowsheet Isaak Berger BLAST FURNACE OPERATOR [facility] Start: 07-04-2024 End: 07-04-2024 Bamboo flowsheet Isaak Berger BLAST FURNACE OPERATOR [facility] Start: 07-04-2024 End: 07-04-2024 ambulatory ISAAK BERGER Not Available Start: 06-13-2024 End: 06-13-2024 ambulatory ISAAK BERGER Not Available Start: 06-04-2024 End: 06-04-2024 ambulatory CHELSEA M MINERVA-MILI Not Available Start: 05-23-2024 End: 05-23-2024 ambulatory ISAAK BERGER Not Available Start: 05-16-2024 End: 05-16-2024 ambulatory ISAAK BERGER Not Available Start: 05-11-2024 End: 05-11-2024 ambulatory ISAAK BERGER Not Available Start: 04-25-2024 End: 04-25-2024 ambulatory CHELSEA M MINERVA-NOSSEK Not Available Start: 04-11-2024 End: 04-11-2024 ambulatory Lester Mcelroy Facility:[facility] Start: 04-11-2024 End: 04-11-2024 Lab Drop off Lester Mcelroy [facility] Start: 04-09-2024 End: 04-09-2024 ambulatory Lester Mcelroy Facility:[facility] Start: 04-09-2024 End: 04-09-2024 Patient encounter procedure Lester Mcelroy [facility] Start: 04-09-2024 End: 04-09-2024 ambulatory Lester Mcelroy Facility:[facility] Start: 04-09-2024 End: 04-09-2024 Patient encounter procedure Lester Mcelroy [facility] Start: 03-15-2024 End: 03-15-2024 ambulatory LUIS DEUARDO SERRATO Not Available Start: 02-26-2024 End: 02-26-2024 ambulatory REGULATORY TECHNICIAN-C Ame Nik [facility] Work Phone: Start: 02-26-2024 End: 02-26-2024 Patient encounter procedure REGULATORY TECHNICIAN-C Ame Zaragoza [facility] [place] Work Phone: Start: 02-23-2024 End: 02-23-2024 ambulatory CHELSEA M MINERVA-NOSSEK Not Available Start: 01-26-2024 End: 01-26-2024 ambulatory CHELSEA M MINERVA-NOSSEK Not Available Start: 12-08-2023 End: 12-08-2023 ambulatory Ame Zaragoza Facility:[facility] Start: 12-08-2023 End: 12-08-2023 ambulatory REGULATORY TECHNICIAN-C Ame Zaragoza [facility] Work Phone: Start: 12-08-2023 End: 12-08-2023 Departed Referred REGULATORY TECHNICIAN-C Ame Zaragoza [facility] Start: 11-16-2023 End: 11-16-2023 ambulatory CHELSEA Ribeiro MINERVA-MILI Not Available Start: 10-17-2023 End: 10-17-2023 ambulatory Ml Chisholm Other [place] [employer] Other Start: 10-17-2023 Office outpatient vi sit 15 minutes Ml Chisholm [facility] Start: 10-17-2023 End: 10-17-2023 Patient encounter procedure REGULATORY TECHNICIAN-C Ame Zaragoza [facility] [place] Work Phone: Start: 08-10-2023 End: 08-10-2023 ambulatory Sera Lares Other [place] [employer] Other Start: 08-10-2023 Office outpatient vi sit 15 minutes Sera Luda [facility] Start: 04-16-2023 End: 04-17-2023 ambulatory Ame Zaragoza Facility:[facility] Start: 02-02-2023 End: 02-03-2023 ambulatory AME NIK Facility:[facility] Start: 01-26-2023 ambulatory AME GREYAULT Facil ity:[facility] Start: 01-17-2023 End: 01-17-2023 Lab Drop off AME Riley NIK [facility] Start: 12-16-2022 End: 12-16-2022 ambulatory Cong Cobian Facility:[facility] Start: 10-31-2022 End: 10-31-2022 ambulatory PHYSICIAN NO FAMILY [facility] Work Phone: Start: 10-31-2022 End: 10-31-2022 Patient encounter procedure PHYSICIAN NO FAMILY [facility]-Self Pay Exercise Program Start: 10-23-2022 End: 10-23-2022 ambulatory FARHEEN CAMACHO . Facility: Start: 10-13-2022 End: 10-13-2022 Patient encounter procedure PHYSICIAN NO [facility] [place] Work Phone: Start: 10-13-2022 Registered Recurring PHYSICIAN NO [facility] Work Phone: Start: 10-12-2022 End: 10-12-2022 ambulatory PHYSICIAN NO [facility] Work Phone: Start: 10-12-2022 End: 10-12-2022 Patient encounter procedure PHYSICIAN NO [facility] [place] Start: 10-11-2022 Registered Recurring PHYSICIAN NO [facility]-Weight Management Start: 10-11-2022 End: 10-11-2022 ambulatory Marleni Jordan Other [place] [employer] Other Start: 10-11-2022 Telephone encounter Marleni Jordan [facility] Start: 09-29-2022 End: 09-29-2022 ambulatory Abhi Finney Facility:[facility] Start: 09-15-2022 End: 09-16-[address] DOCTOR LANDEROS Facility: Start: 09-08-2022 End: 09-08-2022 ambulatory Marleni Jordan Other [place] [employer] Other Start: 09-08-2022 Nutrition therapy Marleni [facility] Start: 09-02-2022 End: 09-02-2022 ambulatory Ame Zaragoza Other [place] [employer] Other Start: 09-02-2022 Office outpatient vi sit 15 minutes Ame Zaragoza [facility] [place] Start: 08-02-2022 End: 08-02-2022 ambulatory Debra Celestin Other [place] [employer] Other Start: 08-02-2022 Telephone encounter Debra Raoulnam Trinh [facility] Start: 07-14-2022 End: 07-14-2022 ambulatory Ame Zaragoza Facility:[facility] Start: 07-10-2022 End: 07-10-2022 ambulatory Amepatrick Zaragoza Other [place] [employer] Other Start: 07-10-2022 Office outpatient vi sit 15 minutes Amepatrick Zaragoza [facility] Start: 07-07-2022 End: 07-08-[address] CONRO BEAL Facility: Start: 06-26-2022 End: 06-26-2022 ambulatory Amepatrick Zaragoza Other [place] [employer] Other Start: 06-26-2022 Telephone encounter Ame browning [facility] [place] Start: 05-24-2022 End: 05-24-2022 Departed Referred REGULATORY TECHNICIAN-C Ame Zaragoza Work Phone: [facility] [place] Start: 05-24-2022 End: 05-24-2022 ambulatory Ame Zaragoza Other [place] [employer] Other Start: 05-24-2022 Office outpatient vi sit 15 minutes Amepatrick Zaragoza [facility] [place] Start: 05-19-2022 End: 05-19-2022 ambulatory Amepatrick Zaragoza Other [place] [employer] Other Start: 05-19-2022 Telephone encounter Ame browning [facility] Start: 05-11-2022 ambulatory BRITNI GRANT Facilit y:[facility] Start: 12-11-2021 End: 12-11-2021 ambulatory Amepatrick Zaragoza Other [place] [employer] Other Start: 12-11-2021 Telephone encounter Ame browning [facility] Start: 10-02-2021 End: 10-02-2021 ambulatory Sera Lares Other [place] [employer] Other Start: 10-02-2021 Office outpatient vi sit 15 minutes Sera Luda [facility] Start: 08-22-2021 End: 08-22-2021 ambulatory Christiana Martel Other [place] [employer] Other Start: 08-22-2021 Office outpatient vi sit 15 minutes Christiana Jzamynenty [facility] Start: 11-25-2020 End: 11-25-2020 Patient encounter procedure Kit Reyes ([facility]) -Pre-Surgical Testing Start: 10-27-2020 End: 10-27-2020 Patient encounter procedure Kit Reyes ([facility]) -[place] COVID Testing Start: 09-12-2020 End: 09-12-2020 Departed Referred Kit Reyes ([facility]) -[facility] [address] Procedures Date Procedure Procedure Detail Performing Clinician Start: 07-13-2024 End: 07-13-2024 Family psychotherapy w/o patient present 50 mins Marital/partner relational problem Isaak Berger BLAST FURNACE OPERATOR Comment on above: Marital/partner rela tional problem; Bipolar II disorder, most recent episode major depressive (CMS/HCC); Generalized anxiety disorder (CMS/HCC) Start: 07-04-2024 End: 07-04-2024 Psychotherapy w/patient 60 minutes Marital/partner relational problem Isaak Berger BLAST FURNACE OPERATOR Comment on above: Marital/partner rela tional problem; Bipolar II disorder, most recent episode major depressive (CMS/HCC) Start: 12-01-2023 ft (qualifier value) Mo armen Mcelroy Comment on above: flat foot Start: 10-13-2022 MRI of head PHYSICIAN NO FAMILY Start: 10-27-2020 SARS Antigen (LFIA) Nirmal sydney Reyes ([facility]) Cholecystectomy AME HI Dilation and curettage NAA ZARAGOZA History of cholecystectomy S/P cholecystectomy Lester Mcelroy Nasal sinus structur e (body structure) AME ZARAGOZA Tonsillectomy AME LEE Urine culture REGULATORY TECHNICIAN-C Sil Zaragoza Work Phone: wisdom teeth AME WARNER LT Plan of Treatment Date Care Activity Detail Author Start: 01-03-2025 End: 01-03-2025 Patient encounter procedure [facility] [place] [facility] Start: 12-04-2024 End: 12-04-2024 Patient encounter procedure 12/04/2024 3:00 PM EST Office Visit [facility] [address] [place] [id number] Yue Perez PA [address] [place] [address] [facility] Start: 11-22-2024 End: 11-22-2024 Telemedicine consultation with patient 11/22/2024 3:30 PM EST Telemedicine [facility] [address] [place] [address] Chelsea Virk, [facility] [address] [place] [address] [facility] Start: 11-06-2024 End: 11-06-2024 Patient encounter procedure 11/06/2024 4:30 PM EST Office Visit [facility] [address] [place] [address] Chelsea Virk, ADMINISTRATIVE LIBRARY ASSISTANT-ROOMING HOUSE INSPECTOR [address] [place] [address] [facility] Start: 09-12-2024 End: 09-12-2024 Patient encounter procedure 09/12/2024 8:40 AM EST Office Visit [facility] [place] [address] [place] [address] Ericka Aguilar, BILLBOARD MECHANIC [address] [place] [id number] [facility] Start: 09-05-2024 End: 09-05-2024 Patient encounter procedure 09/05/2024 4:00 PM EST Office Visit [facility] [address] [place] [address] Chelsea Virk, ADMINISTRATIVE LIBRARY ASSISTANT-ROOMING HOUSE INSPECTOR [address] [place] [address] [facility] Start: 08-09-2024 End: 08-09-2024 Patient encounter procedure 08/09/2024 9:00 AM EDT Office Visit [facility] [address] [place] [id number] Chelsea Virk, ADMINISTRATIVE LIBRARY ASSISTANT-[facility] [address] [place] [address] Arrived [facility] Comment on above: Arrived Start: 08-01-2024 End: 08-01-2024 Patient encounter procedure 08/01/2024 9:00 AM EDT Office Visit [facility] [address] [place] [address] Chelsea Virk, ADMINISTRATIVE LIBRARY ASSISTANT-ROOMING HOUSE INSPECTOR [address] [place] [address] [facility] Start: 07-17-2024 End: 07-17-2024 Patient encounter procedure [facility] Comment on above: Chronic migraine wit hout aura without status migrainosus, not intractable (CMS/HCC) (Primary Dx); Tremor Start: 07-13-2024 End: 07-13-2024 Social Work [facility] Comment on above: Arrived Start: 07-11-2024 End: 09-11-2024 Patient encounter procedure 07/11/2024 9:00 AM EDT Office Visit [facility] [place] [address] [place] [address] Ericka Aguilar NP [address] [place] [address] [facility] [place] [address] Start: 07-04-2024 End: 07-04-2024 Social Work 07/04/2024 8:00 AM EDT Social Work [facility] [address] [place] [address] Isaak Berger LSW Arrived [facility] Comment on above: Arrived Start: 07-01-2024 Influenza vaccination Influenza Vacc ine (#1) [facility] Immunizations Immunization Date Immunization Notes Care Provider Chaim roman 08-04-2022 influenza virus vaccine, unspecified formulation Mohamad Mouchli [facility] 07-13-2022 SARS-CoV-2 (COVID-19 ) mRNA-1273 vaccine Mohamad Mouchli [facility] 11-22-2021 COVID-19 Vaccine Moderna - Documentation Purposes Only Ame Zaragoza Other [facility] 08-13-2020 influenza virus vaccine, unspecified formulation Mohamad Mouchli [facility] 08-07-2020 influenza virus vaccine, unspecified formulation Mohamad Mouchli [facility] 08-09-2019 hepatitis B vaccine, adult dosage Mohamad Mouchli [facility] 08-05-2019 influenza virus vaccine, unspecified formulation Mohamad Mouchli [facility] 03-15-2019 hepatitis B vaccine, adult dosage Mohamad Mouchli [facility] 03-15-2019 varicella virus vaccine Moha mad Mouchli [facility] 02-08-2019 hepatitis B vaccine, adult dosage Lester Mcelroy [facility] 02-08-2019 tetanus toxoid, redu emmett diphtheria toxoid, and acellular pertussis vaccine, adsorbed Lester Mcelroy [facility] 02-08-2019 varicella virus vaccine Leo Mcelroy [facility] 01-07-2019 influenza virus vaccine, unspecified formulation Lester Mcelroy [facility] Payers Date Payer Category Payer Unknown 2022 Self-pay [id number] 2021 [facility] Care O (unspecified) [id number] 1986 Unknown [id number] 2.16.84 0.1.655057.3.579.2.593 1986 Unknown [id number] 2.16.84 0.1.510676.3.579.2.593 1986 Unknown [id number] 2.16.84 0.1.264253.3.579.2.593 1986 Unknown [id number] 2.16.84 0.1.416145.3.579.2.593 1986 Unknown [id number] 2.16.84 0.1.045682.3.579.2.593 1986 Unknown [id number] 2.16.84 0.1.694379.3.579.2.593 1986 Unknown [id number] 2.16.84 0.1.603424.3.579.2.593 1986 Unknown [id number] 2.16.840.1.787515.3.579.2.718 1986 Unknown [id number] 2.16.84 0.1.374116.3.579.2. 1986 Unknown [id number] 2.16.840.1.213308.3.579.2. 1986 Unknown [id number] 2.16840.1.998087.3.579.2. 1986 Unknown [id number] 2.16.840.1.513424.3.579.2. 1986 Unknown [id number] 2.840.1.014066.3.579.2.1258 1986 Unknown [id number] 2.840.1.788006.3.579.2.1258 1986 Unknown [id number] 2.840.1.488541.3.579.2.1258 1986 Unknown [id number] 2.840.1.738943.3.579.2.1258 1986 Unknown [id number] 2.840.1.671224.3.579.2.1258 1986 Unknown [id number] 2.840.1.936110.3.579.2.1258 1986 Unknown [id number] 2.840.1.620594.3.579.2.1258 1986 Unknown [id number] 2.16840.1.490751.3.579.2.1258 1986 Unknown [id number] 2.16840.1.750428.3.579.2.1258 1986 Unknown [id number] 2.16840.1.221447.3.579.2.1258 1986 Unknown [id number] 2.16840.1.047999.3.579.2.1258 1986 Unknown [id number] 2.16.840.1.838026.3.579.2.1259 1986 Unknown [id number] 2.16.840.1.836772.3.579.2.1259 1986 Unknown [id number] 2.16.840.1.814006.3.579.2.1259 1986 Unknown [id number] 2.16.840.1.466745.3.579.2.1259 1985 Unknown [id number] 2.16.840.1.826266.3.579.2.1259 1959 Private Health Insurance [id number] Private Health Insurance [id number] Unknown [id number] Unknown [id number] Social History Date Type Detail Facility Start: 11-25-2020 End: 03-22-2023 Tobacco smoking status MNIS Never smoked tobacco (finding) [facility] Start: 1985 Sex Assigned At Female F [facility] Start: 07-17-2024 End: 09-05-2024 Sex Assigned At [facility] Tobacco smoking status Never [facility] Start: 03-22-2023 Tobacco use and exposure Smokeless tobacco non-user [facility] Start: 07-17-2024 End: 11-01-2024 Alcoholic beverage intake Lifetime non-drinker (finding) [facility] Start: 07-17-2024 End: 09-05-2024 History of Social function [facility] Start: 03-19-2023 Education 21 [facility] Start: 03-19-2023 Alcohol Comment caffeine intak e: 1-2 cups per day [facility] Start: 1985 Sex assigned at Not on file [facility] Start: 09-19-2024 Sex Female (finding) [facility] Medical Equipment Procedure Code Equipment Code Equipment Origin al Text Equipment Identifier Dates Test Strips as directed Start: 09-02-2022 Goals Date Patient Goal Desired Activity /State Functional Status Date Assessment Result Facility 04-09-2024 Functional Status N/A [facility] Clinical Notes 08-22-2021 to 11-06-2024 Telephone Encounter - Danyelle Gates - 11/06/2024 3:35 PM ESTTelephone Encounter - Danyelle Gates - 11/06/2024 3:35 PM ESTChristien Helton NP - 11/01/2024 4:20 PM ESTPatient InstructionsLaboratory Note Date & Type Note Facility 11-06-2024 Telephone encounter Note Patient left a voicemail needing a refill on Vraylar 1.5 mg sent to [facility] pharmacy. Patient has a follow up on 11/22. [facility] 11-06-2024 Miscellaneous Notes Patient left a voicemail needing a refill on Vraylar 1.5 mg sent to [facility] pharmacy. Patient has a follow up on 11/22. documented in this encounter [facility] 11-01-2024 History of Presen t illness Narrative Images from the original note were not included. Chief Complaint Patient presents with Migraine Tremors Subjective Noble Castillo is a 39 y.o. female. The patient presents today for follow up to migraine and tremor. She was started on Ajovy which was very helpful, admits to greater than a 50% reduction in her migraine frequency. States that she is currently experiencing about 3 migraines per month. These start near her nose and wrap around the left side of her face. They are associated with nausea, vomiting, and increased sensitivity to light and sound. She states rizatriptan typically aborts her headache within 30 to 40 minutes of use. She admits that her Vraylar was recently decreased by psychiatry and this has caused near resolution in her tremor. With the improvement in her symptoms she is wondering if her propranolol can be decreased/discontinued. She does admit to a sensitive gag reflex and admits that pills can induce this. Admits to previous swallow study that was unremarkable. She denies any further concerns. Review of Systems Constitutional: Negative for appetite change, fatigue and fever. Eyes: Negative for pain and visual disturbance. Respiratory: Negative for cough, shortness of breath and wheezing. Cardiovascular: Negative for chest pain, palpitations and leg swelling. Gastrointestinal: Negative for abdominal pain, constipation, diarrhea and nausea. Musculoskeletal: Negative for arthralgias, gait problem and myalgias. Neurological: Positive for tremors and headaches. Negative for dizziness and numbness. Psychiatric/Behavioral: Negative for hallucinations and suicidal ideas. Past Medical History: Diagnosis Date Anxiety Chronic otitis media both ears Depression with anxiety Hyperthyroidism (CMS/HCC) IBS (irritable bowel syndrome) Migraines (CMS/HCC) PCOS (polycystic ovarian syndrome) Seasonal allergies Past Surgical History: Procedure Laterality Date BREAST LUMPECTOMY BREAST LUMPECTOMY CHOLECYSTECTOMY 2007 DILATION AND CURETTAGE ENDOMETRIAL ABLATION 07/2019 with diagnostic laparoscopy EXTERNAL EAR SURGERY FOOT SURGERY Left 02/2021 reconstruction KELOID EXCISION Left ear LAPAROSCOPIC HYSTERECTOMY 10/2020 with BS NASAL ENDOSCOPY W/ PAMELA SINUPLASTY NASAL SINUS SURGERY 2014 OTHER SURGICAL HISTORY Gastrocnemius Recession PELVIC LAPAROSCOPY SINUS SURGERY 07/2018 TONSILLECTOMY TOTAL ABDOMINAL HYSTERECTOMY WISDOM TOOTH EXTRACTION WISDOM TOOTH EXTRACTION Family History Problem Relation Name Age of Onset Heart disease Mother Lung cancer Mother Alcohol abuse Father Ed Hypertension Father Ed Heart disease Father Ed Depression Father Ed Mental illness Father Ed Alcohol abuse Brother Uterine cancer Mother's Sister Diabetes Father's Brother Heart disease Maternal Grandmother Stroke Maternal Grandfather Anxiety disorder Other Cancer Other Depression Other Heart attack Other Heart disease Other Hypertension Other Thyroid disease Other Social History Tobacco Use Smoking status: Never Smokeless tobacco: Never Substance Use Topics Alcohol use: Never Comment: caffeine intake: 1-2 cups per day Allergies: Codeine, Povidone-iodine, and Wound dressing adhesive Vitals: 11/01/24 1630 BP: 126/73 Pulse: 90 Body mass index is 33.99 kg/m . weight: 198 lb Neurologic exam: Mental status: Well nourished, well developed and in no acute distress. Grossly oriented to person, place and time. Recent and remote memory are intact. Speech is clear and fluent without aphasia. Attention and concentration are normal. Fund of knowledge is appropriate for level of education. Cranial nerves: CN II: Visual acuity is normal. Visual queen full to confrontation. CN III, IV, : Pupils are equal, round, and reactive to light. Extraocular movements intact. No ptosis present. CN V: Facial sensation is normal. CN VII: Full and symmetric facial movement. CN VIII: Hearing is intact. CN IX and X: Palate elevates symmetrically. CN XI: Shoulder shrug is normal bilaterally. CN XII: Tongue is midline without atrophy or fasciculation. Motor: RUE strength deltoid , biceps , triceps , wrist extensors , wrist flexor , and log truck driver strength 5/5. LUE strength deltoid , biceps , triceps , wrist extensors , wrist flexor , and log truck driver strength 5/5. RLE strength iliopsoas, quadriceps, tibialis anterior, plantar flexion, and dorsiflexion strength 5/5. LLE strength iliopsoas, quadriceps, tibialis anterior, plantar flexion, and dorsiflexion strength 5/5. Tone is normal. Bulk is normal No rest, postural, or action tremor observed throughout the exam. Sensory: Sensation is intact to light touch throughout distal extremities. Reflexes: RUE biceps reflex 2+ , brachioradialis reflex 2+. LUE biceps reflex 2+ , brachioradialis reflex 2+. RLE Knee reflex 1+. LLE Knee reflex 1+. Price's sign negative. Coordination: Wyxdlv-cu-aflt testing normal. Rapid alternating movements are normal. Gait: Normal. Review and summary of old records: MRI brain w and w/o contrast on 10/14/2022: No acute intracranial pathology or postcontrast enhancement. Assessment/Plan Diagnoses and all orders for this visit: Chronic migraine without aura without status migrainosus, not intractable (CMS/HCC) It is my impression that the patient has chronic migraine without aura. She has tried topiramate, verapamil, sertraline, and trazodone in the past without success for migraine management. MRI of the brain on 10/14/22 was unremarkable for secondary headache cause. Propranolol ER has provided benefit, however, the was continuing to report 2 to 3 migraines per week. The patient has had greater than a 50% reduction in her migraine days since starting treatment with CGRP inhibition, Ajovy. Currently experiencing about 3 breakthrough migraines per month which are amendable to naratriptan in less than 40 minutes. PLAN: - Continue Ajovy 225 mg subcutaneous once every 30 days for migraine prevention. I counseled the patient on potential side effects including injection site reaction and allergic reaction. I educated the patient on rotating injection sites. She verbalizes understanding and wishes to proceed. A sample of Ajovy was provided to the patient today - Decrease propranolol ER to 120 mg by mouth once a day (if no worsening of symptoms will plan to discontinue at follow up) - Continue rizatriptan 10 mg as needed for migraine (ordered by PCP). Take no more than 2 doses in 24 hours - Recommended adequate hydration, sleep hygiene, regular exercise as tolerated and avoidance of triggers. - Recommended migraine diary for review at follow up Tremor The patient reports an intermittent postural and intention tremor of the right hand. This is not apparent on clinical exam today. Suspicious for essential tremor versus side effect from Vraylar. The patient presents today and states that with recent Vraylar reduction this is seemingly resolved. PLAN: - Decrease propranolol as above (if no worsening of symptoms will plan to discontinue at follow up) - Continue close follow up with psychiatry. I will defer management of psychiatric medications to her psychiatrist Follow up in 1-2 months or sooner if symptoms worsen, fail to improve, or should a new neurological concern arise. Pt has been fully educated on their diagnosis, treatment options, follow up plan, and return instructions documented in this encounter [facility] 09-05-2024 History of Presen t illness Narrative Images from the original note were not included. Noble Castillo is a 39 y.o. female presents for Medication Management.Arrived 30 min late. HPI: Patient is here for medication follow up. Patient has improved since last appt. Not sweating as much, and no tremors. Mood is reported as not depressed. Anxiety is under control. Sleeping well without trazodone. Medication compliant. No reported side effects. Denies abuse of substances. Medical problems since last visit. Pulled a calf muscle. Psychosocial stressors include getting used to new job. 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 . SUBJECTIVE: PAST MEDICAL HISTORY: Past Medical History: Diagnosis Date Anxiety Chronic otitis media both ears Depression with anxiety Hyperthyroidism (CMS/HCC) IBS (irritable bowel syndrome) Migraines (CMS/HCC) PCOS (polycystic ovarian syndrome) Seasonal allergies ALLERGIES: Allergies Allergen Reactions Codeine GI intolerance and Unknown Povidone-Iodine Rash and Itching Other Reaction(s): itchy rash Wound Dressing Adhesive Rash and Unknown Other Reaction(s): rash, blisters SURGICAL HISTORY: Past Surgical History: Procedure Laterality Date BREAST LUMPECTOMY BREAST LUMPECTOMY CHOLECYSTECTOMY 2008 DILATION AND CURETTAGE ENDOMETRIAL ABLATION 07/2019 with diagnostic laparoscopy EXTERNAL EAR SURGERY FOOT SURGERY Left 02/2021 reconstruction KELOID EXCISION Left ear LAPAROSCOPIC HYSTERECTOMY 10/2020 with BS NASAL ENDOSCOPY W/ BALLON SINUPLASTY NASAL SINUS SURGERY 2014 OTHER SURGICAL HISTORY Gastrocnemius Recession PELVIC LAPAROSCOPY SINUS SURGERY 07/2018 TONSILLECTOMY TOTAL ABDOMINAL HYSTERECTOMY WISDOM TOOTH EXTRACTION WISDOM TOOTH EXTRACTION FAMILY HISTORY: Family History Problem Relation Name Age of Onset Heart disease Mother Lung cancer Mother Alcohol abuse Father Ed Hypertension Father Ed Heart disease Father Ed Depression Father Ed Mental illness Father Ed Alcohol abuse Brother Uterine cancer Mother's Sister Diabetes Father's Brother Heart disease Maternal Grandmother Stroke Maternal Grandfather Anxiety disorder Other Cancer Other Depression Other Heart attack Other Heart disease Other Hypertension Other Thyroid disease Other SOCIAL HISTORY: Social History Tobacco Use Smoking status: Never Smokeless tobacco: Never Vaping Use Vaping status: Never Used Substance Use Topics Alcohol use: Never Comment: caffeine intake: 1-2 cups per day Drug use: Never Depression: Not at risk (08/09/2024) PHQ-2 PHQ-2 Score: 0 REVIEW OF SYMPTOMS - MENTAL STATUS EXAM Appearance Appearance: Casual dress, normal grooming and hygiene Attitude Attitude: Cooperative, conversant, engaged, and with good eye contact. Behavior Cooperative, conversant, engaged, and with good eye contact. Speech Normal, clear, regular rate, rhythm and volume Affect full affect appropriate with mood Mood euthymic Thought Process Organized and Clear Thought Content No Suicidal Ideation and No Homicidal ideation Perception No perceptual abnormalities noted Orientation Appropriate to age, Person, Place, and Time Memory/Concentration Short term intact and skilled nursing intact Insight/Judgement Good OBJECTIVE: Visit Vitals OB Status Hysterectomy Smoking Status Never Lab Results Component Value Date TSH 1.85 06/15/2024 Lab Results Component Value Date GLU 90 06/15/2024 CALCIUM 9.3 06/15/2024 NA 141 06/15/2024 K 4.1 06/15/2024 CO2 26 06/15/2024 CL 108 06/15/2024 BUN 8 06/15/2024 CREATININE 0.81 06/15/2024 Lab Results Component Value Date WBC 7.3 06/15/2024 HGB 14.5 06/15/2024 HCT 42.7 06/15/2024 MCV 85.7 06/15/2024 PLT 271 06/15/2024 Lab Results Component Value Date CHOL 152 06/15/2024 Lab Results Component Value Date HDL 44 (L) 06/15/2024 Lab Results Component Value Date LDLCALC 76 06/15/2024 Lab Results Component Value Date TRIG 234 (H) 06/15/2024 ASSESSMENT AND PLAN: Assessment/Plan Bipolar II disorder, most recent episode major depressive (CMS/HCC) Generalized anxiety disorder (CMS/HCC) Psych Medication List Lowered vraylar and sx have mostly gone away. Discussed sx subsided -no tremors will leave at current dose And consider changing to caplyta in future. Trazodone 100mg po at bedtime prn Lamictal 150 daily Sertraline 150mg po daily -encouraged to eat with med Vistaril 50mg po q8 hrs Patient was seen Face to Face, Reviewed chart documents and documentation, Visit time : 25min F/U 2 months documented in this encounter [facility] 08-09-2024 History of Presen t illness Narrative Images from the original note were not included. Noble Castillo is a 39 y.o. female presents for Medication Management. HPI: Patient is here for medication follow up. I have some weird things going on. She is having difficulty swallowing pills in am and dry throat and when try to swallow then vomits. Also having night sweats and tremor -used to be on right now on left. Lowering the vraylar helped in past. Saw neuro and said may be vraylor. Mood is reported as good. Anxiety is improving. Was situational. Sleeping 9 hours. Medication compliant. Reported side effects. Night sweating and tremor. Trouble swallowing. Denies abuse of substances. In Sept had swallowing study. No new Medical problems since last visit. Psychosocial stressors include peer at work. 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 SUBJECTIVE: PAST MEDICAL HISTORY: Past Medical History: Diagnosis Date Anxiety Chronic otitis media both ears Depression with anxiety Hyperthyroidism (CMS/HCC) IBS (irritable bowel syndrome) Migraines (CMS/HCC) PCOS (polycystic ovarian syndrome) Seasonal allergies ALLERGIES: Allergies Allergen Reactions Codeine GI intolerance and Unknown Povidone-Iodine Rash and Itching Other Reaction(s): itchy rash Wound Dressing Adhesive Rash and Unknown Other Reaction(s): rash, blisters SURGICAL HISTORY: Past Surgical History: Procedure Laterality Date BREAST LUMPECTOMY BREAST LUMPECTOMY CHOLECYSTECTOMY 2007 DILATION AND CURETTAGE ENDOMETRIAL ABLATION 07/2019 with diagnostic laparoscopy EXTERNAL EAR SURGERY FOOT SURGERY Left 02/2021 reconstruction KELOID EXCISION Left ear LAPAROSCOPIC HYSTERECTOMY 10/2020 with BS NASAL ENDOSCOPY W/ TAMMION SINUPLASTY NASAL SINUS SURGERY 2014 OTHER SURGICAL HISTORY Gastrocnemius Recession PELVIC LAPAROSCOPY SINUS SURGERY 07/2018 TONSILLECTOMY TOTAL ABDOMINAL HYSTERECTOMY WISDOM TOOTH EXTRACTION WISDOM TOOTH EXTRACTION FAMILY HISTORY: Family History Problem Relation Name Age of Onset Heart disease Mother Lung cancer Mother Alcohol abuse Father Ed Hypertension Father Ed Heart disease Father Ed Depression Father Ed Mental illness Father Ed Alcohol abuse Brother Uterine cancer Mother's Sister Diabetes Father's Brother Heart disease Maternal Grandmother Stroke Maternal Grandfather Anxiety disorder Other Cancer Other Depression Other Heart attack Other Heart disease Other Hypertension Other Thyroid disease Other SOCIAL HISTORY: Social History Tobacco Use Smoking status: Never Smokeless tobacco: Never Vaping Use Vaping status: Never Used Substance Use Topics Alcohol use: Never Comment: caffeine intake: 1-2 cups per day Drug use: Never Depression: Not at risk (08/09/2024) PHQ-2 PHQ-2 Score: 0 REVIEW OF SYMPTOMS - MENTAL STATUS EXAM Appearance Appearance: Casual dress, normal grooming and hygiene Attitude Attitude: Cooperative, conversant, engaged, and with good eye contact. Behavior Cooperative, conversant, engaged, and with good eye contact. Speech Normal, clear, regular rate, rhythm and volume Affect full affect appropriate with mood Mood euthymic Thought Process Organized and Clear Thought Content No Suicidal Ideation and No Homicidal ideation Perception No perceptual abnormalities noted Orientation Appropriate to age, Person, Place, and Time Memory/Concentration Short term intact and skilled nursing intact Insight/Judgement Good OBJECTIVE: Visit Vitals BP 100/78 (BP Location: Right arm, Patient Position: Sitting) Pulse 82 Wt 202 lb BMI 34.67 kg/m OB Status Hysterectomy Smoking Status Never BSA 2.03 m Lab Results Component Value Date TSH 1.85 06/15/2024 Lab Results Component Value Date GLU 90 06/15/2024 CALCIUM 9.3 06/15/2024 NA 141 06/15/2024 K 4.1 06/15/2024 CO2 26 06/15/2024 CL 108 06/15/2024 BUN 8 06/15/2024 CREATININE 0.81 06/15/2024 Lab Results Component Value Date WBC 7.3 06/15/2024 HGB 14.5 06/15/2024 HCT 42.7 06/15/2024 MCV 85.7 06/15/2024 PLT 271 06/15/2024 Lab Results Component Value Date CHOL 152 06/15/2024 Lab Results Component Value Date HDL 44 (L) 06/15/2024 Lab Results Component Value Date LDLCALC 76 06/15/2024 Lab Results Component Value Date TRIG 234 (H) 06/15/2024 ASSESSMENT AND PLAN: Assessment/Plan Assess/Plan SmartLinks: Diagnoses and all orders for this visit: Bipolar II disorder, most recent episode major depressive (CMS/HCC) Generalized anxiety disorder (CMS/HCC) Psych Medication List Will attempt to lower vraylar to see if sx subside or go away. And consider changing to caplyta Trazodone 100mg po at bedtime prn Lamictal 150 daily Sertraline 150mg po daily -encouraged to eat with med Vraylar 3mg po every day Vistaril 50mg po q8 hrs Reviewed labs. Patient was seen Face to Face, Reviewed chart documents and documentation, Visit time : 35min F/U- 4 weeks documented in this encounter [facility] 07-17-2024 Telephone encounter Note Acknowledged, thank you. [facility] 07-17-2024 Miscellaneous Notes Acknowledged, thank you. Yes, it is in media under ED Report 06 15 24 Are you able to request records from the patient's emergency department visits at [facility] for me to review please? documented in this encounter [facility] 07-17-2024 Telephone encounter Note Yes, it is in media under ED Report 06 15 24 [facility] 07-17-2024 Telephone encounter Note Are you able to request records from the patient's emergency department visits at [facility] for me to review please? [facility] 07-17-2024 History of Presen t illness Narrative Images from the original note were not included. Ericka Aguilar NP Chief Complaint Patient presents with Migraine Tremors Subjective Noble Castillo is a 39 y.o. female. HPI The patient presents today for follow up. She was most recently evaluated in our office in 03/2023. At the prior neurology appointment, propranolol dose was increased. The patient is taking propranolol ER 160 mg by mouth once a day. She denies any apparent side effects. The patient has had approximately 2 to 3 migraines per week recently. These start near her nose and wrap around the left side of her face. She describes them as pressure. They are associated with nausea, vomiting, and increased sensitivity to light and sound. They are not accompanied by visual disturbance, numbness, paresthesias, or weakness. They are not preceded by aura. They are aggravated by physical activity and relieved by laying in a dark, quiet room. If taken at the onset of migraine, the patient states rizatriptan typically aborts her headache within 30 to 40 minutes of use. She has also tried [id number] medications and essential oils for her symptoms with minimal relief. The patient has been to [facility] ([facility]) Emergency Department 3 times within the past year for migraines which were not relieved by rizatriptan. She states [facility] did not complete imaging at any of these visits. They gave her medications (such as Tylenol, antiemetics, and Benadryl) to relieve her migraines and discharged her home. The patient continues to have an intermittent tremor. This affects her right hand only. It occurs less than daily. It primarily occurs when her arm is outstretched and holding an object. The patient notes her tremor worsened in the past when her Vraylar dose was increased to 4.5 mg once a day. It has improved since the dose was reduced back to 3 mg once a day. She follows with psychiatry in [place], [place]. She states her psychiatrist attempted to take her off of Vraylar once in the past, this led to a manic episode. She denies any further concerns. Review of Systems Constitutional: Negative for appetite change, chills, fatigue, fever and unexpected weight change. HENT: Negative for drooling, trouble swallowing and voice change. Eyes: Negative for visual change, double vision or loss of vision Respiratory: Negative for cough, shortness of breath and wheezing. Cardiovascular: Negative for chest pain and palpitations. Gastrointestinal: Negative for abdominal pain and blood in stool. Musculoskeletal: Negative for arthralgias, gait problem and myalgias. Neurological: Positive for tremors and headaches (associated with nausea, vomiting, photophobia, and phonophobia). Negative for dizziness, seizures, syncope, facial asymmetry, speech difficulty, weakness, light-headedness and numbness. Negative for shuffling gait Psychiatric/Behavioral: Negative for confusion, hallucinations and suicidal ideas. The patient is not nervous/anxious. Medication List cetirizine 10 MG tablet; Commonly known as: ZyrTEC fluticasone 50 MCG/ACT nasal spray; Commonly known as: Flonase lamoTRIgine 150 MG tablet; Commonly known as: LaMICtal; Take 1 tablet (150 mg) by mouth Daily propranolol LA 160 MG 24 hr capsule; Commonly known as: Inderal LA; Take 1 capsule (160 mg) by mouth Daily Protonix 40 MG EC tablet; Generic drug: pantoprazole rizatriptan CASKET ASSEMBLER METAL 10 MG disintegrating tablet; Commonly known as: Maxalt-CASKET ASSEMBLER METAL semaglutide 2 MG/1.5ML solution pen-injector; Commonly known as: Ozempic sertraline 100 MG tablet; Commonly known as: Zoloft; Take 1.5 tablets (150 mg) by mouth Daily Vraylar 3 MG capsule; Generic drug: Cariprazine HCl; Take 3 mg by mouth Daily Past Medical History: Diagnosis Date Anxiety Chronic otitis media both ears Depression with anxiety Hyperthyroidism (CMS/HCC) IBS (irritable bowel syndrome) Migraines (CMS/HCC) PCOS (polycystic ovarian syndrome) Seasonal allergies Past Surgical History: Procedure Laterality Date BREAST LUMPECTOMY BREAST LUMPECTOMY CHOLECYSTECTOMY 2007 DILATION AND CURETTAGE ENDOMETRIAL ABLATION 07/2019 with diagnostic laparoscopy EXTERNAL EAR SURGERY FOOT SURGERY Left 02/2021 reconstruction KELOID EXCISION Left ear LAPAROSCOPIC HYSTERECTOMY 10/2020 with BS NASAL ENDOSCOPY W/ [place]ALLON SINUPLASTY NASAL SINUS SURGERY 2014 OTHER SURGICAL HISTORY Gastrocnemius Recession PELVIC LAPAROSCOPY SINUS SURGERY 07/2018 TONSILLECTOMY TOTAL ABDOMINAL HYSTERECTOMY WISDOM TOOTH EXTRACTION WISDOM TOOTH EXTRACTION Family History Problem Relation Name Age of Onset Heart disease Mother Lung cancer Mother Alcohol abuse Father Ed Hypertension Father Ed Heart disease Father Ed Depression Father Ed Mental illness Father Ed Alcohol abuse Brother Uterine cancer Mother's Sister Diabetes Father's Brother Heart disease Maternal Grandmother Stroke Maternal Grandfather Anxiety disorder Other Cancer Other Depression Other Heart attack Other Heart disease Other Hypertension Other Thyroid disease Other Social History Tobacco Use Smoking status: Never Smokeless tobacco: Never Substance Use Topics Alcohol use: Never Comment: caffeine intake: 1-2 cups per day Allergies: Codeine, Povidone-iodine, and Wound dressing adhesive Vitals: 07/17/24 0825 BP: 128/76 Pulse: 85 SpO2: 97% Body mass index is 35.39 kg/m . weight: 206 lb 3.2 oz Neurologic exam: Mental status: Awake and alert with unlabored respirations. Oriented to person, place and time. Recent and remote memory are intact. Speech is clear and fluent without aphasia. Attention and concentration are normal. Fund of knowledge is appropriate for level of education. Cranial nerves: CN II: Visual acuity is normal. Visual uqeen full to confrontation. CN III, IV, : Pupils are equal, round, and reactive to light. Extraocular movements intact. No ptosis present. CN V: Facial sensation is normal. CN VII: Full and symmetric facial movement. CN VIII: Hearing is normal to finger rub bilaterally. CN IX and X: Palate elevates symmetrically. CN XI: Shoulder shrug is normal bilaterally. CN XII: Tongue is midline without atrophy or fasciculation. Motor: RUE strength deltoid , biceps , triceps , wrist extensors , wrist flexor , and log truck driver strength 5/5. LUE strength deltoid , biceps , triceps , wrist extensors , wrist flexor , and log truck driver strength 5/5. RLE strength iliopsoas, quadriceps, tibialis anterior, plantar flexion, and dorsiflexion strength 5/5. LLE strength iliopsoas, quadriceps, tibialis anterior, plantar flexion, and dorsiflexion strength 5/5. Mildly increased tone in the bilateral upper extremities with activation. Tone is otherwise normal. No rest, postural, or action tremor observed throughout the exam. Sensory: Sensation is intact to light touch throughout all four extremities. Sensation is intact to temperature in all extremities. Reflexes: RUE biceps reflex 2+ , brachioradialis reflex 2+. LUE biceps reflex 2+ , brachioradialis reflex 2+. RLE Knee reflex 1+. LLE Knee reflex 1+. Coordination: Hjosna-zi-xjby testing normal. Rapid alternating movements are normal. No bradykinesia. Gait: Normal. Review and summary of old records: MRI brain w and w/o contrast on 10/14/2022: No acute intracranial pathology or postcontrast enhancement. Assessment/Plan Diagnoses and all orders for this visit: Chronic migraine without aura without status migrainosus, not intractable (CMS/HCC) It is my impression that the patient has chronic migraine without aura. She has tried topiramate, Calan SR, sertraline, and trazodone in the past without success for migraine management. Propranolol ER has provided benefit, however, the patient continues to have 2 to 3 migraines per week recently. I believe she is a good candidate for a CGRP inhibitor to help improve migraine control. MRI of the brain on 10/14/22 was unremarkable for secondary headache cause. PLAN: - Start Ajovy 225 mg subcutaneous once every 30 days for migraine prevention. I counseled the patient on potential side effects including injection site reaction and allergic reaction. I educated the patient on rotating injection sites. She verbalizes understanding and wishes to proceed. A sample of Ajovy was provided to the patient today - Continue propranolol ER 160 mg by mouth once a day (may provide benefit for both migraine prevention and tremor) - Continue rizatriptan 10 mg as needed for migraine (ordered by PCP). Take no more than 2 doses in 24 hours - Adequate hydration, sleep hygiene, and regular physical activity as tolerated Tremor The patient reports an intermittent postural and intention tremor of the right hand. This is not apparent on clinical exam today. I suspect this may represent essential tremor or a medication side effect from Vraylar or sertraline. PLAN: - Continue propranolol ER as detailed above - I encouraged the patient to discuss potential dose reduction of Vraylar and/or sertraline with her psychiatrist. We discussed that reduction of these medications may help improve her tremor, but I will defer management of psychiatric medications to her psychiatrist Diagnosis and treatment options discussed in detail. All questions answered. The patient verbalizes understanding and is agreeable to the plan. Discussion in layman's terms. Follow up in the office within 1 to 2 months; sooner if needed for new or worsening symptoms. Ericka Aguilar NP [facility] Advanced Neurology documented in this encounter [facility] 07-17-2024 Instructions Ericka Aguilar NP - 07/17/2024 8:20 AM EDT - Start Ajovy 225 mg subcutaneous once every 30 days for migraine prevention documented in this encounter [facility] 04-11-2024 Evaluation + Plan note Diagnostic Tests PendingCalprotectin, Fecal 04/11/24Enteric Panel by PCR 04/11/24O & P Exam, Routine 04/11/24Pancreatic Elastase, Fecal 04/11/24 [facility] 04-09-2024 Evaluation + Plan note Future Scheduled TestsPancreatic Elastase, Fecal 04/09/24Calprotectin, Fecal 04/09/24O & P Exam, Routine 04/09/24Clostridium Difficile PCR 04/09/24Enteric Panel by PCR 04/09/24 [facility] 04-09-2024 Evaluation + Plan note Diagnostic Tests PendingCeliac Disease Comprehensive 04/09/24 Future Scheduled TestsPancreatic Elastase, Fecal 04/09/24Calprotectin, Fecal 04/09/24O & P Exam, Routine 04/09/24Clostridium Difficile PCR 04/09/24Enteric Panel by PCR 04/09/24 [facility] 10-17-2023 Evaluation note Encounter Date [...] while sleeping. questions and concerns were addressed [employer] Other 10-11-2023 Evaluation note* Encounter Date Diagnosis [...] no improvement in 2 to 3 days [employer] Other 03-20-2023 Evaluation + Plan note Diagnostic Tests Pending * FSH and LH 01/17/23 [facility]02-16-2023 NotePatient Education Materials Follows: Otitis [...] Follow these instructions at home: ? Take qjmb-[id number]-juytbqx and prescription medicines only as told by [...] provider. Document Revised: 01/25/2022 Document Reviewed: 01/25/2022 [employer] Patient Education ? 2021 [employer].[facility] [id number] Note Patient Education Materials Follows:[id number] Evaluation note * Encounter Date Diagnosis Assessment [...] medication before and did have stomach upset [employer] Other 11-03-2022 Evaluation note* Encounter Date Diagnosis Assessment Notes Treatment Notes Treatment Clinical Notes Aug, Dizziness (ICD-10 - R42) Aug, History of reactive hypoglycemia (ICD-10 - Z86.39) Start with keeping journal of symptoms. Take blood sugars when you experience symptoms. [employer] Other 09-10-2022 Evaluation note* Encounter Date Diagnosis Assessment Notes Treatment Notes Treatment Clinical Notes Jul, Intractable migraine without aura and without status migrainosus (ICD-10 - G43.019) Take medication as directed. Stay away from known triggers. Follow up with primary care provider or neurology if symptoms persist. Phenergan and Toradol Im given in office. Explained medication will cause drowsiness. [employer] Other 08-27-2022 Evaluation note* Encounter Date Diagnosis Assessment Notes Treatment Notes Treatment Clinical Notes May, Migraine aura without headache (ICD-10 - G43.109) [employer] Other 07-25-2022 Evaluation note* Encounter Date Diagnosis [...] (ICD-10 - G43.109) Continue medication as needed [employer] Other 12-03-2021 Evaluation note* Encounter Date Diagnosis [...] no improvement in 5 to 7 days [employer] Other 10-23-2021 Evaluation note* Encounter Date Diagnosis [...] care instructions given in writting by [facility] At Home document [employer] Other Evaluation noteNo InformationNort [employer]For Other Evaluation noteNo assessment information available [facility] Work Phone: Evaluation note* Diagnosis Bipolar II disorder, most recent episode major depressive (CMS/HCC) Other bipolar disorders Generalized anxiety disorder (CMS/HCC) Generalized anxiety disorder [facility] Diagnosis Bipolar II disorder, most recent episode major depressive (CMS/HCC) Other bipolar disorders Insomnia, unspecified type [facility] Diagnosis Marital/partner relational problem Counseling for marital and partner problems, unspecified Bipolar II disorder, most recent episode major depressive (CMS/HCC) Other bipolar disorders Generalized anxiety disorder (CMS/HCC) Generalized anxiety disorder [facility] Diagnosis Chronic migraine without aura without status migrainosus, not intractable (CMS/HCC)- Primary Tremor Abnormal involuntary movements [facility] Diagnosis Marital/partner relational problem Counseling for marital and partner problems, unspecified Bipolar II disorder, most recent episode major depressive (CMS/HCC) Other bipolar disorders [facility] Diagnosis Chronic migraine without aura without status migrainosus, not intractable (CMS/HCC)- Primary Tremor Abnormal involuntary movements [facility] Diagnosis Bipolar II disorder, most recent episode major depressive (CMS/HCC) Other bipolar disorders [facility] Narrative - Reported* Type Description Date Medical History bipolar depression Medical History hx stomach ulcers Medical History migraine headaches Surgical History T&A 1997 Surgical History [place] Teeth 2004 Surgical History Keloid Scar from [...] Surgical History hysterectomy Hospitalization History See Above [employer] Other Hisrxao general Narrative - Reported* Type Description Date Medical History bipolar depression Medical History hx stomach ulcers Medical History migraine headaches Medical History IBS Medical History chronic depression Medical History anxiety Medical History Gestational diabetes - yes Medical History PCOS Medical History Esophageal reflux Medical History fatigue Medical History lactose intolerance Medical History obesity Surgical History T&A 1998 Surgical History [place] Teeth 2005 Surgical History Keloid Scar from ear 2006 Surgical History Lap Saima 2007 Surgical History [...] reconstruction 2 021 Hospitalization History See Above [employer] Other Histyxn general Narrative - Reported* Type Description Date Medical History bipolar depression Medical History hx stomach ulcers Medical History migraine headaches Medical History IBS Medical History chronic depression Medical History anxiety Medical History Gestational diabetes - yes Medical History PCOS Medical History Esophageal reflux Medical History fatigue Medical History lactose intolerance Medical History obesity Surgical History T&A 1997 Surgical History [place] 2004 Surgical History Keloid Scar from [...] reconstruction 2 021 Hospitalization History See Above [employer] Other Hospital course Narrative No data available for this section [facility] No data available for this section [facility] No data available for this section [facility] Advance Directives Advance Directive Response Recorded Date/ Time Advance Directives No April 08 0 6:58am Advance Directive Response Recorded Date/ Time Advance Directives No April 08 0 7:58am Chief Complaint and Reason for Visit Chief [facility] Dysmenorrhea,Dyspareunia,Abnormal Uterine Bleeding Chief Complaint Dysuria R30.0 Chief Complaint Obesity R27.0 Chief Complaint Obesity R27.0 exercise Chief Complaint Ear Infection Left E ar Unknown Chief Complaint Unknown Left ear pain Chief Complaint Admit Date Ear pain September 19, 2024 4:35pm Assessments No Assessments Information Available Family History [...] condition Unknow n Unknown Malignant neoplasm Unknown Relationship Condition Age at Onset Recorded Date/T nahid mother Malignant neoplasm of lung Unknown Myocardial infarction Unknown father Chronic obstructive pulmonary disease Unk nown Hypertension Unknown Depression Unknown sister Hypothyroidism Unknown father Unknown Heart disease Unknown mother Family history of other condition Unknown Unknown Malignant neoplasm Unknown Summary Purpose Additional Source Comments REASON FOR VISIT (unrecogniz ed section and content) Reason Comments Med Management Follow-up Tremors are worsenin g now appearing in the left and left foot. Reports she is having hard time swallowing pills, had barium swallow test-normal. States when she swallows pills they get stuck causing gag reflex and vomits. The morning is worse. So has been taking the AM in the afternoon. Has spoke to Neuro about this- they told her that the tremors could be related to the possibly the vraylar or Zoloft. Reason Comments Med Management Follow-up Reason Comments Marital therapy Reason Comments Migraine Tremors Reason Onset Date Comments Med Refill 11/06/2024 Care Teams (unrecognized sec tion and content) [...] Member Role Status Dates Ame Nik , REGULATORY TECHNICIAN-C Primary Care Provider Active Lambert Gavin DO Attending Provider Active Team Status: Inactive Member Role Status Dates Ml Chisholm NP Attending Provider Active Start: October 17, 2023 End: October 17, 2023 Team Status: Inactive Member Role Status Dates Ame Zaragoza REGULATORY TECHNICIAN-C Primary Care Provider Active Start: December 08, 2023 End: December 08, 2023 Fabienne Guerra DPM MS Attending Provider Active Start: December 08, 2023 End: December 08, 2023 Team Status: Active Member Role Status Dates Ame Zaragoza [facility] Primary Care Provider Activ e Team Status: Inactive Member Role Status Dates Sera Lares NP-C Attending Provider Active S tart: February 26, 2024 End: February 26, 2024 Ame Zaragoza [facility] Primary Care Provider Activ e Start: February 26, 2024 End: February 26, 2024 Hand Fabric Cutter Relationship Specialty Start Date End Date Unallocated, Mickey Pulido MD [address] [place] [address] PCP - General Family Medicine 05/11/24 Hand Fabric Cutter Relationship Specialty Start Date End Date Unallocated, Mickey Pulido MD [address] [facility] [place] [address] PCP - General Family Medicine 05/11/24 Hand Fabric Cutter Relationship Specialty Start Date End Date Unallocated, Mickey Pulido MD [address] [place] [address] PCP - General Family Medicine 05/11/24 Team Status: Inactive Member Role Status Dates Ame Zaragoza [facility] Primary Care Provider Activ e Start: September 19, 2024 End: September 19, 2024 Taisha Tejada APRN Attending Provider Active S tart: September 19, 2024 End: September 19, 2024 Hand Fabric Cutter Relationship Specialty Start Date End Date Unallocated, [place] [address] PCP - General Family Medicine 05/11/24 Hand Fabric Cutter Relationship Specialty Start Date End Date Unallocated, Mickey Pulido MD [address] [place] [address] PCP - General Family Medicine 05/11/24 Hand Fabric Cutter Relationship Specialty Start Date End Date Unallocated, Mickey Pulido MD [address] [place] [address] PCP - General Family Medicine 05/11/24 Hand Fabric Cutter Relationship Specialty Start Date End Date Unallocated, Mickey Pulido MD [address] [place] [address] PCP - General Family Medicine 05/11/24 Hand Fabric Cutter Relationship Specialty Start Date End Date Unallocated, Mickey Pulido MD [address] [place] [address] PCP - General Family Medicine 05/11/24 Hand Fabric Cutter Relationship Specialty Start Date End Date Unallocated, Mickey Pulido MD [address] [place] [address] PCP - General Family Medicine 05/11/24 Akira Gavin DO [address] [id number] Referring Physician Neurology 11/01/24 Hand Fabric Cutter Relationship Specialty Start Date End Date Unallocated, Mickey Pulido MD [address] [place] [address] PCP - General Family Medicine 05/11/24 Akira Gavin DO [address] [address] Referring Physician Neurology 11/01/24 Hand Fabric Cutter Relationship Specialty Start Date End Date Unallocated, Mickey Pulido MD [address] [place] [address] PCP - General Family Medicine 05/11/24 Akira Gavin DO [address] [address] Referring Physician Neurology 11/01/24 Goals (unrecognized section and content) Goals may be documented in a n alternate section INFORMATION SOURCE (unrecogn ized section and content) DATE CREATED AUTHOR 02/12/2023 [facility] DATE CREATED AUTHOR AUTHOR'S ORGANIZ ATION 04/20/2023 [facility] DATE CREATED AUTHOR AUTHOR'S ORGANIZ ATION 12/14/2023 [facility] DATE CREATED AUTHOR AUTHOR'S ORGANIZ ATION 04/12/2024 [facility] DATE CREATED AUTHOR AUTHOR'S ORGANIZ ATION 04/13/2024 [facility] DATE CREATED AUTHOR AUTHOR'S ORGANIZ ATION 04/18/2024 [facility] DATE CREATED AUTHOR AUTHOR'S ORGANIZ ATION 04/19/2024 [facility] DATE CREATED AUTHOR AUTHOR'S ORGANIZ ATION 04/21/2024 [facility] DATE CREATED AUTHOR AUTHOR'S ORGANIZ ATION 04/25/2024 [facility] DATE CREATED AUTHOR AUTHOR'S ORGANIZ ATION 11/09/2024 [facility] d[facility] Specialists EPIC FOR RECORDS PERTAINING TO [...] BE BASED ON THE PRIMARY CLINICAL RECORDS. [facility] [employer] [facility]. provides no warranty or guarantee of the accuracy or completeness of information in this document.
== END 2024-11-09 12:22 | disposition home or self-care (01) ==
LOC: MRI 12:21
PROVIDERS: PCP Nurse Practitioner Family; Visit Provider Podiatrist Foot & Ankle Surgery
DX: M76.821 Posterior tibial tendinitis, right leg (principal)
CPT/HCPCS: 73721

== ENCOUNTER 2024-12-10 11:51 | Emergency (ER) | payer OTHER, SELFPAY ==
[2024-12-10 12:01] VITALS: BP 121/77; PULSE 82; TEMP 36.6; O2SAT 100; BMI 36.0
--- NOTE | 2024-12-10 12:08 | XR_ITS ---
[address] [address] Patient Name: NOBLE CASTILLO MRN: [id number] date: 1985 Sex: F Assigned Patient Location: ER Current Patient Location: ER Accession/Order Number: [id number] Exam Date: 12/10/2024 12:12 Report Date: 12/10/2024 12:49 At the request of: BURKE AMADOR Procedure: XR chest 2V EXAMINATION: XR chest 2V HISTORY: sob COMPARISON: No relevant comparison available. TECHNIQUE: PA and lateral FINDINGS: LUNGS: No significant pulmonary parenchymal abnormalities. VASCULATURE: No increased pulmonary vasculature. PLEURA: No pneumothorax, effusion, or pleural thickening. CARDIAC: No cardiomegaly or cardiac silhouette abnormality. MEDIASTINUM: No visible mass or adenopathy. BONES: No fracture or visible bone lesion. OTHER: Negative. XR/XR chest 2V IMPRESSION: No acute cardiopulmonary process Electronically authenticated by: EZIO FOLEY Date: 12/10/2024 12:49
--- OUTSIDE RECORDS SUMMARY | 2024-12-10 12:10 | XMS_ITS | CCD ---
Author Organization [facility] Care Team Providers Care Ignition Specialist Name Role Phone Eric ([facility])Kit Attending Provider Dewayne James Attending Provider [phone] Ame Zaragoza Primary Care Provider [phone] Costa Armando Attending Provider [phone] Christiana Martel Unavailable Sera Lares Unavailable Ame Zaragoza Unavailable KRISTIN Zaragoza Attending Provider NO FAMILY, PHYSICIAN Primary Care Provider Unava ilable Debra Celestin Unavailable tatiana Marleni Unavailable NO FAMILY, PHYSICIAN Primary Care Provider Unava ilable KRISTIN Zaragoza Attending Provider DO Lambert Gavin Attending Provider KRISTIN Zaragoza Primary Care Provider NO FAMILY, PHYSICIAN Primary Care Provider Unava ilable KRISTIN Zaragoza Attending Provider KRISTIN Zaragoza Primary Care Provider DO Lambert Gavin Attending Provider MD Alexis Lincoln Attending Provider [phone] CONOR BEAL Primary Care Physician FARHEEN STRATTON [...] KRISTIN Zaragoza Ame Primary Care Provider U [facility] GER Guerra Attending Provider Ame Zaragoza Primary Care Unavailable Charlie, Fabienne Mahajan Attending Unavailable Fabienne Guerra Admitting Unavailable KRISTIN Zaragoza [facility] Mahajan Attending Provider AME ZARAGOZA Primary Care Physician Lester Mcelroy [...] Care Provi concepción Akira Gavin DO Unavailable [phone] Minerva-Nossek PROJECT BUYER-BLACKSMITH HAMMER OPERATOR, Chelsea M Unavailable MINERVA-NOSSEK, CHELSEA M Attending Unavailab le MINERVA-NOSSEK, HCELSEA M Attending Unavailab le MINERVA-NOSSEK, CHELSEA M Attending Unavailab le AMALUIS EDUARDO Attending Unavailable MINERVA-NOSSEK, CHELSEA M Attending Unavailab [...] Drug Allergy Unknown (qualifier value) [facility] Povidone-Iodine (3 sources) Povidone-Iodine ; 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: [povidone iodine topical] Drug Allergy Unknown (qualifier value) [facility] (9 sources) Adhesive Tape; 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: [Adhesive tape] Allergy to substance 4 Rash/itching [facility] Comment on above: states anything stic ky causes itching/rash (7 sources) paper tape Allergy to substance 1 Rash/itching [facility] (20 sources) Codeine; 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: [codeine] Drug Allergy 8 Unknown (qualifier value), GI intolerance, Unknown [facility] (20 sources) Povidone-Iodine ; 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: [povidone iodine topical] Drug Allergy 8 Unknown (qualifier value), Rash, Itching [facility] (13 sources) bandaids Propensity to adverse reactions rash [employer] Other (16 sources) Polyester Propensity to adverse reactions 3 [facility] (6 sources) Povidone-Iodine ; 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: [Betadine] Drug Allergy 2 itchy rash [facility] (6 sources) Adhesive bandage; 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: [Adhesive Bandage] Drug allergy Unknown (qualifier value) [facility] (2 sources) Codeine Drug Allergy 2 [facility] (1 source) Adhesive Tape; 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: [Tape] Propensity to adverse reactions to drug (disorder) [facility] (3 sources) Adhesive agent Allergy to substance 3 [facility] (19 sources) Wound Dressing Adhesive Drug Allergy 0 Rash, Unknown [facility] Medications Current Medications Medication Drug Class(es) Dates Sig (Normalized) Sig (Original) Fioricet (1 source) Barbiturate, Central Nervous System Stimulant, Methylxanthine Start: 04-16-2019 Fioricet Oral, q4hr, Refill(s) 0, Headache Start Date: 04/16/19 Status: Ordered ajovi (1 source) Start: 09-19-2024 ajovi Active SUBCUT every week September 19, 2024 12:00am Marquita Allergy 180 MG (8 sources) take [...] 19, 2024 4:39pm take 1 capsule by [facility] every twenty-four hours Vraylar 4.5 MG 1 capsule Orally Once a day Active Vraylar Active Centrum [facility]'s oral tablet (4 sources) Start: 04-16-2019 take 1 tablet by mouth once daily Centrum [facility]'s oral tablet 1 tab(s), Oral, Daily, Refill(s) 0, Prophylaxis Start Date: 04/16/19 Status: Ordered cetirizine hydrochloride 10 mg oral tablet (19 sources) Histamine-1 Receptor Antagonist take 1 tablet by mouth once daily cetirizine (ZyrTEC) 10 MG tablet Take 10 mg by mouth Daily Active colesevelam hydrochloride 625 mg oral tablet (3 sources) Bile Acid Sequestrant Start: 04-09-2024 take 3 tablets by mouth twice daily Welchol 625 mg Tab 1,875 mg = 3 tab(s), Oral, BID, # 540 tab(s), Refills(s) 0, Pharmacy: [facility]/pharmacy #[id number], 162, cm, 04/09/24 13:38:00 EDT, Height/Length [...] propionate 0.05 mg/actuat metered dose nasal spray (15 sources) Corticosteroid Start: 02-26-2024 take 2 spray(s) [...] nostril 1.5 ml fremanezumab-vfrm 150 mg/ml auto-injector (14 sources) Start: 07-17-2024 End: 01-13-2025 fremanezumab (Ajovy) 225 MG/1.5ML auto-injector Indications: Chronic migraine without aura without status migrainosus, not intractable (CMS/HCC) Inject 1 pen (225 mg) under the skin every 30 (thirty) days 1.5 mL 5 07/17/2024 01/13/2025 Active hydrOXYzine (20 sources) Antihistamine Start: 04-16-2019 hydrOXYzine Or al, TID, Refills(s) 0, Anxiety Start Date: 04/16/19 Status: Ordered take 1 capsule by [facility] every eight hours as needed for anxiety [...] 2020 12:00am take 1 tablet by jerri three times daily at mealtime as needed [...] 1 tablet Orally Once a day Active Ehvtsnklfb-Iynztiw-Huwsiaplm in (Folinic-Plus) 4-50-2 mg tablet (7 sources) Start: 11-25-2020 take 1 tablet by mouth once daily Fccfmemqmb-Zsviaww-Chhkdcxwpqs (Folinic-Plus) 4-50-2 mg tablet Active 1 TAB PO Daily November 25, 2020 10:32am Start: 11-25-2020 End: 09-19-2024 take 1 tablet by mouth once daily Ipmtaeisad-Rxynxjc-Fmamwgzknvb (Folinic- Plus) 4-50-2 mg tablet Discontinued 1 TAB PO Daily November 25, 2020 12:00am September 19, 2024 4:40pm Start: 11-25-2020 take 1 tablet by jerri th once daily Cvdlawsabx-Mdgzmta-Dpmgctpntvb (Folinic- Plus) 4-50-2 mg tablet Active 1 TAB PO Daily November 25, 2020 12:00am Start: 11-25-2020 take 1 tablet by jerri th once daily Iqkmmeaqwr-Mijjjqf-Tmdfgmmcmpf (Folinic- Plus) 4-50-2 mg tablet Active 1 [...] Status: Ordered meloxicam 15 mg oral tablet (9 sources) Nonsteroidal Anti-inflammatory Drug Start: 09-04-2024 take 1 tablet by mouth once daily meloxicam (Mobic) 15 MG tablet Take 15 mg by mouth Daily 09/04/2024 Active take 1 tablet by [facility] every twenty-four hours Meloxicam 15 MG 1 tablet Orally Once a day Active nitroglycerin 0.004 mg/mg rectal ointment (1 source) Nitrate Vasodilator Start: 06-28-2019 Rectiv 0.4% rectal ointment 1 suraj, Rectal, q12hr, 30 gram, Refill(s) 0, [facility] Start Date: 06/28/19 Status: Ordered Laurens-3 (1 source) Start: 04-16-2019 Laurens-3 Oral, Daily, Refill(s) 0, Prophylaxis Start Date: 04/16/19 Status: Ordered Laurens-3 Fatty Acids (Fish Oil Concentrate) 1,000 mg Capsule (7 sources) Start: 11-25-2020 take 1 capsule by mouth once daily Laurens-3 Fatty Acids (Fish Oil Concentrate) 1,000 mg Capsule Active 1000 MG PO Daily November 25, 2020 10:35am Start: 11-25-2020 End: 09-19-2024 take 1 capsule by mouth once daily Laurens-3 Fatty Acids (Fish Oil Concentrate) 1,000 mg Capsule Discontinued 1000 MG PO Daily November 25, 2020 12:00am September 19, 2024 4:40pm Start: 11-25-2020 take 1 capsule by [facility] once daily Laurens-3 Fatty Acids (Fish Oil Concentrate) 1,000 mg Capsule Active 1000 MG PO Daily November 25, 2020 12:00am Start: 11-25-2020 take 1 capsule by [facility] once daily Laurens-3 Fatty Acids (Fish Oil Concentrate) 1,000 mg [...] 04/09/2024 Active predniSONE 20 mg oral tablet (18 sources) Start: 10-29-2024 take 1 tablet by [...] 1.5 ml semaglutide 1.34 mg/ml pen injector (20 sources) Start: 09-19-2024 inject 1 mg by [...] 19, 2024 4:40pm take 2 tablets by [facility] every twenty-four hours Sertraline HCl 100 MG [...] Drug Class(es) Dates Sig (Normalized) Sig (Original) [id number] 200 actuat albuterol 0.09 mg/actuat metered dose [...] 4-6 hours for 14 days Jul, Not-Taking alendronic acid 70 mg oral tablet (5 sources) Bisphosphonate Start: 12-09-2023 End: 11-22-2024 take 1 tablet by mouth every week alendronate (Fosamax) 70 MG tablet Take 70 mg by mouth 1 (one) time per week 12/09/2023 11/22/2024 Discontinued (Therapy completed) amoxicillin 500 mg oral capsule (1 source) [...] 24 hrs Start: 04-16-2019 rizatriptan ML T (Maxalt-AIR BRAKES INSPECTOR) 10 MG disintegrating tablet dissolve 1 tablet [...] tract] Onset: 4 Episodic Residual codes; unclassified (4 sources) Insomnia; 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: [Insomnia, unspecified] 09-05-2024 Episodic Unclassified (2 sources) LOW BACK PAIN, UNSPECIFIED; 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: [LOW BACK PAIN, UNSPECIFIED] Onset: Past or Other Problems Problem Classification Problem Date Documented Date Episodic/Chronic Administrative/social admission (20 sources) Family problems; 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: [Problems in relationship [...] Resolved: 08-22-2021 Episodic Other aftercare (1 source) bed bug exterminator (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; 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: [SKILLED NURSING CURRENT USE OF ASPIRIN] Onset: 10-26-2022 Episodic Other aftercare (1 source) Other senior living (current) drug therapy; 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: [OTH FIRE OFFICER CURRENT DRUG THERAPY] Onset: 10-26-2022 Episodic Other connective tissue disease (1 source) Pain in left finger(s) Onset: 10-02-2021 Resolved: 10-02-2021 Episodic Other connective tissue disease (4 sources) Pain in left foot; 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: [PAIN IN LEFT FOOT] Onset: 07-07-2022 Episodic Other connective tissue disease (1 source) Pain in right foot; 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: [PAIN IN RIGHT FOOT] Onset: 07-12-2022 Episodic Other nervous system disorders (19 sources) Finding of hand region; 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: [Tremor, unspecified] Onset: 02-28-2023 02-28-2023 Episodic Other nervous system disorders (15 sources) Ataxia; 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: [Ataxia, unspecified] Onset: 07-17-2024 07-17-2024 Episodic Other nervous system disorders (19 sources) Tremor; 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: [Tremor, unspecified] Onset: 07-17-2024 [...] Provider Letter April 24, 2024 NOBLE CASTILLO [address] [place] [phone] : 1985 Dear Jessica, We have been trying to reach you with no success. It is important that you return our call regarding your medication question upon receiving this letter. Also, at the time of your call, please provide us with your current information. Thank you for your prompt attention to this matter. Sincerely, [facility] [phone] [facility] Coding Summary.on 04-21-2024 Coding Summary. ACOQKxjs24VFb2uLu+PG h lYWQ+SM8GCZWtQ05tnANk uO4gG9MYXBtEJiuqJTWOG LwJBkZlhyXrOZ9sxKOqGI Ju IC8+KF5kGPJzWngjsLVdp 8F1tUP1W43ljc0eQZlbmR J8GWIpXoVixwndv6pdvQp 6IDcuNmluOyBt GRCecV83XRW6bV65Xd49b PFybIOul0yqiZx6JiPpKS PtMMH7hCttZLlvi5KeJND lT72sjYXqu3D6 NHJotHpymGIcCbNyyGR6k B3uQOwutcquz1uoovcnEi v9jo08dROdx3F2pWY9T1P tjzT1RAXxrBJz MjvzrAQSpF4xasjvx2jei gnbCqGdDZKnATr7JZh9DO MwpUchHrLlEF08KRR4TEW izzAiH1ThLIPn nLadYvF9z7O2Oy8XW2NCK uxoS6REUVVABEavnVK+PC 40rc53N6RoFiceSsa7FOU jSWF2eDX8vY3a GXUpINoip0J8pPL3C0Bki pFzmc1tf1doTQMoRBkfZ1 1ibSKof7W8NQGnqAS7TUS hxHfySbHbkA70 Oyc+VALudTegj7UnAhtal 5bwi1hmdFx2ZxonRHNafp CfhQwiGBE4g4ZjZy1mBDI nyRQ6eNY0wV6q MpOtBwG3NKaaD949OkOlg BJbLpcaD05mH3GfmMP+PH VdSox1NXIykJowOS7sO8Y hZGRpbmctbGVm tQgrYA6iBWNszooyGAZuh W4wBKTiH7y7BqHiFsY7AJ ltM1VxDHLnsjqcBv68jT9 oJsOjMjS2JJax N7GaotS3AJUrfJVdZEgiQ ED2F50al6P3PCKlWVDnNO D3nJW4aM9ezNdgpmlmtWS mdDsgdmVydGlj VLfrBTnaI941EFVucVtyT kNvZGluZyBEYXRlOiAgMD YvMjIvMjAyNDwvdGQ+PHR qYDY0oVqkTBIw uLXhMNeyCi9sxPlatRpkH B7kQNUpfcesPVZdxF3jWT VsoAQuxZhsNX2oVWHtsda jm746SwQtNVX2 FSVvvUIiJ0MovQ1fNrGxU DEqVBGvS5KeyWVaOGhvY9 97BIluEjC3PPVbdlDqM5B sLWFsaWduOiB0 x3V8Ub5Ei4QalkgmE7Arc FEjUqIlYlcsSIa7Q4GaZf wvdHI+HN20NAUfQY66LYz 6JWJ6pNbnCYxq GONnK9EwdA5sSpUeKQUuS GRkOyc+PHRhYmxlIHdpZH RoPScxMDAlJyBzdHlsZT0 zAs3wSFJqUSEp hHmqrHZcYtRim5ghBBHjW NdeQS0wdSjzY9KofSY6JW Rsj0e2Ng31M60qL9AefKT +OMGrgRT2iNE2 aL6dUkTwZeI3FPkiJ280L fZqsZDzJnxff1xta5vjiW f6TjI7FCBigrHkpByzAWT 8m5XiRu13R85q IHdpZHRoPSIxNSUiIHZhb Eedan2jnN9sCb7+PGNvbC W2kMX7gA7wZoLiSmW8ASu yI801GdRxzPPk Jxrfi5rac1phcXp3SiHrV LUsdkXupJmiRZR5v9RiTh 41U3ImvVqbb1HqFvn8ic9 3bBAkp9N5zAG9 O5EbXOPkewfnaCQpsHnwK G2uFHSwvmycQAShsX3cBR HmY2p8JeFnLzT7FRqvG8C wdoK3OGToqIZb FOIrtHNUkB2dcwwoc7uiy ddySkVzPYYbEEq1KCt7FX TxkXkuNaFtEQZ5GnQ8MTE 5zGIfeF1gcQli hndpsZ0rUth+WPO2kZIgr MDVHX4yDloruJF+PHRkIH J2yRawEDcdVTFcaN0oJVX yJ0i2XeAySpB3 CSqqN8KbpeR0CUUvaJSnH GYvsPZZoF5gxbbkk1fvjj kaJjNjBRSyVKi2CMw2GUE saWduOiBsZWZ0 ObA9GEZ5bIHvrZ0ltHpdx klsoJ5gHor+QmlydGggRG H7HLx7C8PoBbo1QCEigGy aRT9izLCiWVbt Df7biGuklMotYJ2fKQKax inpy795KuPwz1ngOORhdS CgZAjsHGF8R94ci8E8TUU qGSYqQUX1dXR9 hF6qlIaadmjnhQVtjGrlv jIxeMfbVYuwYTfyH115QE PpsEiiRqDbAQu8K2RnRxu 5OTDquCxwAN0v pYMfORcyFm1gnXaxkNrsF F6jXGSfrgmbd855MlVes5 fvKXOysYJjLXlaDJE2R39 wr6Q4BVHiPVFi YCH4eHJ6iT2hrBbjzigbr GVmdDsgdmVydGljYWwtYW wiI748WBBniHqoOxWorOg 8R6SpArc6OBLm aJkhJJ4vyTLjTFogPb6bg YrddYgzJR3iJDMktqdot6 77EuLrv6dcTZWbiVNyYOq yIHO9Z21ts7P0 RNTbUWUiTUK9jLS5eO3iu GlnbjogbGVmdDsgdmVydG oiLQveCFtqF693DNVxeGx nPlBhdGllbnQg IFblDIw9U3JxKwlieJD+P D43DMZnLP29vJIgeOKqn9 mxdKy2NgCiEHOvLQY4eLk cUCejc9TuVSYz Y57hpDDvy0T4CXQbjJawb UWaOqHjkFC5zJ1qDHkmtv amd2yquifrBcmwv3uqdn4 1zV81K79yEGzw ZHRoPSIzMCUiIHZhbGlnb s9hjL0cDm1+EWSrkNF0hR H4xY7pMBLoQlC2YImwS11 9InRvcCIvPjxj w6rcq4mmpEi3GdP4FBHtq gUneWaqNRB6c8TsFe73A4 9sIHdpZHRoPSIyMCUiIHZ ojJesmj5ulM9q Ii8+EIXghNX8yQP3aV2wK rSpRaQ1PWjnR011JzZbbF RpStenA08fI7DxtXO+PHR xWav2MXVhfYlp OH6tvVBcASybGo8iMVC8G rTzJtOfNAecV0VwNDBsda imigsjlED6XPFmNNRkqV5 6Vh3htSyjGMOj hQMNzK4lzccph4tszlviH yYaPGCdAYy9JOy4YEFzbG syMeKsUHZ3YxQ9LAX3bVN vsT9mrIwwwbfb tY1fI0IkIXLcnkapRo53m E2iWfLkQzF2UTegZmf+GUERRERO 7EWwvgSTwFZEVCRY6ALJ3 7ZM97fNXja2Z0 jLE2S6QfJGIwaagwzyfte EX7PAGeTALrbW75fXRxQP vnOm0gp4J8c199XKPjCHS qbA21Bf6xvSdn QGBknQWZzH5wmlvmc2las ddpOoKfCQQiMJo7NUe3FA FfbFniIoDkQPN9SnB8JBV 0mMRhsQ1ubXnt qhwknD6nHbi+MDYvMDUvM Zr3XppjvEE+HNIuDWJ1iU nqODskWEQyoD9hUGKfP9z 4NwHgLxV0AKwf Y7CjWFUthazsJp47nZ0aQ iLhHaN0TKroN2SkroH6NI MnsSMnGCclMMR6A92zb8S 9ITHfCLRfHYE0 tVF1aI4csXtyiiycyKIfo DsgdmVydGljYWwtYWxpZ2 06YIGbsQdyAoJ3HPouRJN cLV88MT92kSYy k6Y2lKC6Q2MvEZNyeipul sotqIN7UPTvYFZuzW63eB GzQMeeQw5ky8Y2q828LIP gKBDwxM11Yt2t hThsXKCytBRUkJ7ybdsir 5tjguniYtUaPXInMCk3KA d4FLAlwDweAlCvRCP4AaJ 4BNQ1oJObmO2m iZmzhtuudD5bRsr+RmVtY VyqCO71EZ16eQLnh4G1yY F5O0HeYWEtetoytgyesOX 0SMPkMHJowS24 fMJuBOflAm3gl6W1w880C FUlEYUvsW81Wk8hsFlfUQ ZtxRJQxY4kxuotw6waguj gIzAwMDAwMDt0 RQd9TSMosOuwHbWkPZO1A eC9QKB4cSPsgZ7knIbawr bmaJ1vWjp+RAAyFRHgf1T oy6CoPT51WK07 R6KzGhllvAKxyVZ+PHRhY mxlIHdpZHRoPScxMDAlJy TzvBxhVQ7sEb6eWEMxREF vbGxhcHNlOiBj u8nnAZLhTVbbOT6rcPboE 1FxePC5VQBkc3k3Eo13V1 5zJ0SfbAK+ZSKggPU7fYN 7kU9rJjErMhN6 IWfqZ547NxGshSScRswnx 5xih2nfkHl1RyWeJYDliu BgxZahMGA3d6OeUr82R73 sIHdpZHRoPSIy WLXrVJOkvTzjyl8ckK9nK i8+ZCJtrSN0vEX3sY1jOq TvXzY8AMeiG121ZpCfgPM zAeysX24bP3Nv dXA+VWTvKtw4IKIivAgrO K2uwOOzYMmpJh1qCLG1Yo NwJlXzWItwO8RrMPEhmif eordtpOJ5TPXu GSZxdR93Fm2kuCpxXo7tL WIpLOV7BGGnlOHvQ4NjiT 9uDkVvXAZxGOYqI0BksFR qEXgzD977AXod NvB9XJMlxbCrZ8LqQXMay JhpDqO5n8R4Qs6OyFvwxN TcPM2wKiEfULg7F6OgCtr 3UUTvdFqlVX2f aFWzJFhuKw0bvPzddRcfH R0cBOWhubrig867UaZst3 rdDTMpqGWmKAeuVAO8L78 ih8J1TNRfUFLh GZM0eNG9cM3rqQoksuknh GVmdDsgdmVydGljYWwtYW tiY615VWPydCzcLsOGKfb 4L8GsIbt9UWYm fOpeZA2caTWdATjxWr2eb GblvZlaNL2eGYHtkjari4 76AbYnu5jsXLAuwJBlHDe hOYA0J80ns9A3 FKSsVRMfMWU0rMI2gH8dl GlnbjogbGVmdDsgdmVydG ltARvxFBdkD722ZCYwoXo wZo6JNvp8Z9Cm Wnf6EXOhdPuySN1kzNRuB DtrIz2bwChubEdnVH1rQY Okgddmb694FlOxo7qrFMY wcHQgVGltZXM7 N24yh1P9LPBkXTHzKIL0o RW3qO3tgBiuspjiuMYosR pllvGbkCaxGQzxHMitZ91 6IHRvcDsnPlBh eWVyOjwvdGQ+MR42qt80E 3TeZnhsJsb5PYJsYRS2cA S8rE6wVZEpCVuzb9H7pUF 9M0UrrtIvps9l h5opGRSmGHgxX (more content not included)... Normal [facility] Calprotectin, Fecalon 2023 Calprotectin (Stl) [Mass/Mass] 29 mcg/gm Invalid Interpretation Code 0-120 [facility] Comment on above: Result Comment: Conc entration Interpretation Follow-Up < 5 - 50 ug/g Normal None >50 -120 ug/g Borderline Re-evaluate in 4-6 weeks >120 ug/g Abnormal Repeat as clinically indicated Performed at: [id number] [place], [place] [id number] MD Parmjit Connor Performed By: #### 1 [id number] #### [facility] [address] [place] [address] O & P EXAM, ROUTINE, REFLEXo n 04-17-2024 Ova and parasites identified Concentration Nom (Stl) Comment Invalid Interpretation Code [facility] Comment on above: Result Comment: No o va, cysts, or parasites seen. One negative specimen does not rule out the possibility of a parasitic infection. Performed at: [address] [id number] PhD Pancho Higgins Performed By: #### 3 [id number] #### [facility] [address] [place] [address] O & P Exam, Routineon 2023 Ova and parasites identified LM Nom (Unsp spec) Final report Invalid Interpretation Code [facility] Comment on above: Result Comment: Thes e results were obtained using wet preparation(s) and trichrome stained smear. This test does not include testing for Cryptosporidium parvum, Cyclospora, or Microsporidia. Performed at: [address] [id number] PhD Pancho Higgins Performed By: #### 1 [id number] #### [facility] [address] [place] [address] Pancreatic Elastase, Fecalon 04-17-2024 Elastase.pancreatic (Stl) [Mass/Mass] >800 Invalid Interpretation Code >200 [facility] Comment on above: Result Comment: Florecita winters Pancreatic Insufficiency: <100 Moderate Pancreatic Insufficiency: 100 - 200 Normal: >200 Performed at: [address] [id number] MD Parmjit Connor Performed By: #### 1 [id number] #### [facility] [address] [place] [address] Enteric Panel by PCRon 04-12 C. coli+jejuni+upsalien sis DNA MARYELLEN+non-probe Ql (Stl) Not detected Normal [facility] Comment on above: Result Comment: Test ing was performed utilizing reverse ornamental bronze worker (RT), polymerase chain reaction (PCR), and array [...] nulcleic acid test. Performed By: #### 1 [id number] #### [facility] [address] [place] [address] E. coli stx1+stx2 genes MARYELLEN+non-probe Ql (Stl) Negative Normal [facility] Comment on above: Performed By: #### 1 [id number] #### [facility] [address] [place] [address] Enteric Panel by PCR Negative Normal [facility] Enteric Panel Intrl QC Pass Normal [facility] Comment on above: Result Comment: Test ing was performed utilizing reverse ornamental bronze worker (RT), polymerase chain reaction (PCR), and array [...] 1 and 2. Performed By: #### 1 [id number] #### [facility] [address] [place] [address] Norovirus genogroup I+II RNA MARYELLEN+non-probe Ql (Stl) Not detected Normal [facility] Comment on above: Performed By: #### 1 [id number] #### [facility] [address] [place] [address] Rotavirus A RNA MARYELLEN+non-probe Ql (Stl) Not detected Normal [facility] Comment on above: Performed By: #### 1 [id number] #### [facility] [address] [place] [address] S. enterica+bongori DNA MARYELLEN+non-probe Ql (Stl) Not detected Normal [facility] Comment on above: Result Comment: This test result should be correlated with clinical presentations and medical history by a healthcare provider to determine its clinical significance. Performed By: #### 1 [id number] #### [facility] [address] [place] [address] Shigella species+EIEC invasion plasmid antigen H ipaH gene MARYELLEN+non-probe Ql (Stl) Not detected Normal [facility] Comment on above: Performed By: #### 1 [id number] #### [facility] [address] [place] [address] V. cholerae+parahaemoly ticus+vulnificus DNA MARYELLEN+non-probe Ql (Stl) Not detected Normal [facility] Comment on above: Performed By: #### 1 [id number] #### [facility] [address] [place] [address] Y. enterocolitica DNA MARYELLEN+non-probe Ql (Stl) Not detected Normal [facility] Comment on above: Performed By: #### 1 [id number] #### [facility] [address] [place] [address] CDiff PCRon 04-11-2024 C. difficile toxin A+B Ql (Stl) YES Normal [facility] Comment on above: Performed By: #### 3 [id number] #### [facility] [address] [place] [address] CDiff PCR Unable to perform test due to consistency of stool. C. Difficile testing will only be performed on diarrheal (unformed) stool unless ileus due to C. difficile is expected. Reference: Clinical Practice Guidelines for Clostridium difficile Infection in Adults, Infection and Hospital Epidemiology February 2010, Vol 31, No 5. Normal [facility] Celiac Disease Comprehensive on 04-11-2024 Endomysium IgA Ql (S) Negative Invalid Interpretation Code Negative [facility] Comment on above: Performed By: #### 1 [id number] #### [facility] [address] [place] [id number] Gliadin peptide IgA Qn (S) 7 unit(s) Invalid Interpretation Code 0- [facility] Comment on above: Result Comment: Nega tive 0 - 19 Weak Positive 20 - 30 Moderate to Strong Positive >30 Performed By: #### 1 [id number] #### [facility] [address] [place] [id number] Gliadin peptide IgG Qn (S) 2 unit(s) Invalid Interpretation Code 0- [facility] Comment on above: Result Comment: Nega tive 0 - 19 Weak Positive 20 - 30 Moderate to Strong Positive >30 Performed By: #### 1 [id number] #### [facility] [address] [place] [address] IgA [Mass/Vol] 286 mg/dL Invalid Interpretation Code 30-352 [facility] Comment on above: Result Comment: Perf ormed at: [facility] [address] [place] [address] [id number] PhD Pancho Higgins Performed By: #### 1 [id number] #### [facility] [address] [place] [address] tTG IgA Qn (S) <2 Invalid Interpretation Code 0-3 [facility] Comment on above: Result Comment: Nega tive 0 - 3 Weak Positive 4 - 10 Positive >10 Tissue Transglutaminase (tTG) has been identified as the endomysial antigen. Studies have demonstr- ated that endomysial IgA antibodies have over 99% specificity for gluten sensitive enteropathy. Performed By: #### 1 [id number] #### [facility] [address] [place] [address] tTG IgG Qn (S) <2 Invalid Interpretation Code 0-5 [facility] Comment on above: Result Comment: Nega tive 0 - 5 Weak Positive 6 - 9 Positive >9 Performed By: #### 1 [id number] #### [facility] [address] [place] [address] Ambulatory Visit Summaryon 0 04-09-2024 Ambulatory Visit [...] Chronic diarrhea Invalid Interpretation Code Chronic GERD [facility] CHEMISTRYOrdered By: SYSTEM SYSTEM on 04-09-2024 CRP [Mass/Vol] 1.3 mg/dL Normal <=1.9mg/dL Remisol Ch em TSH Qn 3.27 m[IU]/L Normal 0.34 - 5.60 mcIU/mL Remisol Chem CRPon 04-09-2024 CRP [Mass/Vol] 1.3 mg/dL Normal <=1.9 [facility] Comment on above: Performed By: #### 2 [id number] #### [facility] [address] [place] [address] Consent for Treatmenton 03-31 Consent for Treatment [id number] Normal [facility] Gastroenterology Office/Clin ic Noteon 04-09-2024 [...] 30 gram, Refill(s) 0, [facility] [facility] EGD/ Dr Wiggins: 04/26/2019 1. Normal esophagus, [...] BID, # 540 tab(s), Refills(s) 0, Pharmacy: [facility]/pharmacy #[id number], 162, cm, 04/09/24 13:38:00 EDT, Height/Length [...] Alcohol Use, (more content not included)... Normal [facility] Comment on above: Result Comment: Elec tronically Signed By: Navi MACK, Lester Escobedo.bridgett\Date and Time Signed: 04/09/24 14:24 EDT Angel 12-08-2023 L Specimen: [id number] Received: 12/09/23 Status: SOUT Req Num: [id number] Spec Type: Surgical Subm Dr: Fabienne Guerra DPM, MS Tissues: A Tendon/Sheath (RT POST TIBIAL TEND) Procedures: HE, Gross/Micro L3 Age/ Patient Sex Location Account Attending Physician Noble Castillo 38/F LABE[facility] [id number] Fabienne Guerra DPM, MS SPEC NUM: [id number] RECD: 12/09/23 STATUS: TANA DUPREE NUM: [id number] SHEREE: 12/08/[address]: Fabienne Guerra DPM, MS ENTERED: 12/09/23 [facility] DR: Joi,Laura SPEC TYPE: Surgical DEPT: JEANNIE QUINTERO ORDERED: [...] in one cassette labeled A1. CPT Codes 30238 -------- -------- Specimen: [id number] Received: 12/09/23-1325 Status: TANA Dupree Num: [id number] Spec Type: Surgical Subm Dr: Fabienne Guerra,GER, MS Tissues: A Tendon/Sheath (RT POST TIBIAL TEND) Procedures: Slade JASSO/Latesha L3 -------- Patient: Noble Castillo [id number] (Continued) -------- Signed (signature on file) Toney Chandra MD 12/12/23 2258 [facility] Nicotine Metabolite, Urine L Con 04-19-2023 Cotinine LC Negative Invalid Interpretation Code Pjwwpt=153 [facility] Comment on above: Result Comment: Perf ormed At: [facility] [place] [address] [facility] [place], [place] [id number] Mark Puentes PhD Ph:[phone] Performed By: #### 1 [id number] ####[facility] (DEFAULT)[address] [place] [address] Lab - Toxicology Resultson 0 04-18-2023 Lab - Toxicology Results [id number]. 00OTGTIFF Normal [facility] CT ANKLE RT WO CONon 023 [...] technique. FINDINGS: BONES: Joint space narrowing with trnd-zu-lqrg articulation involving the medial aspect of the talocalcaneal joint. SOFT TISSUES: Negative. No visible soft tissue swelling. EFFUSION: None visible. OTHER: Negative. IMPRESSION: 1. Pes planus. 2. Gheh-sv-cxwf articulation between the articular surfaces of the medial talocalcaneal joint. 3. Uniform, normal spacing of the tibiotalar joint. Electronically authenticated by: RAFAEL COATS Date: 2023-02-02 09:25 Normal [facility] CHEMISTRYOrdered By: SYSTEM SYSTEM on 01-17-2023 [...] Coding Summaryon 12-21-2022 Coding Summary HTMLBase 64 TfxybgmnRXf2lHe+PGhlY WQ+NT4BWHIpY24lkSBxkJ 3YW5wGLM0FLWJDOJLWTM6 UFC5mkGZ0FHzvW5VdsdMo SqlvuHKdVE07SGy1KGY0a NjiNFwvnV6irFYdI6o2Kw DuFU50cE92NTczTEQqFxQ 3LjZpbjsgbWFy S0eeIyIlmFHwYio+PHRhY mxlIHdpZHRoPScxMDAlJy KlxKfsBS0sQq7hWFTmAKT vbGxhcHNlOiBj c4tsTTQjBDaeBL9tpChrC 4RhiYO1NNLhn9i2Hg32dG I+CJAuNRO9bGbaWPrlt86 3FxVwf1fqILF4 yZAlQLkdHOR7N98mx0W7N NRuDTNpGNG4kEJ4wT6ayD rcklgvK5XgxRCtSzR4QBQ 0gCXejU5ssNbu gszaxN0mYqx+T25LZD7EL IWYNR4WSib8I9QpOdxbqY I+RR79MRXoSW16rBLahSC qp9qisGq8MmLn BVDvDGA3vYrzHFkwe2NlJ IBdZ97qqWVig1J9ZKRlqP bazHVkPrGjiRS0mA1iBEo mxaeek3bvsxjt Piavb2wdzj60nM38R04rW EjxAIPkGHO5VGSyYWWdbN vbkj3hoE7zTo2+VQtws8i vq1uufIk6PkLa OSFiovOinOedQRP2f4VcK s77L5RgbWdqu3XvPkl5xe 97uYLyt6U8cFJ2SOqiTJC zeT1tHAagWxK8 KBGyKtEodD02oDZxBZcsW s4srYnyeRpkSY1iTYFkab uwCYApcB2dTCKypDFucIe bPF4qWYQyzdhv k995OaCzEHJ4NNMeiCRgD 8HceG8aOlHuUQZqCJDlW3 BylGZoMCzvP498APwiQuT 9UFVtpyWuE6Wv QFLuuYjkHuP1e4R3Yk0Oj 5UlsfeeGAK0QWbnFXTwEw IqAaLnIcN9J7KzQgx1VMS nlGoiHI4oI6Lx JSYoyvrpxlgqhDV0WPZiU FPkbX72bCUzZJdcOl7xc8 V2e591CHHmBXAghO86Cy1 udDogMTBwdCBU rR6jktjbl4gdiwfjReJkK LLhOIs6MSe9GLYktIjaSn HaRGZ2SaM4FDB5rTTvnJ2 ecNttwhdkvR9c Oyc+V72ynQ4gNCQ9MWH6v kivWZCfxiDlUR08KK76V6 RyPjwvdGFibGU+PGRpdiB kuKldCV3nVzIg m0nhy8UzZIuuU1NjCIIfS AnyTcx2HSNuZOB9sTK6gC 9vBWBfXKidh8E4sSU5H0G vpdKyqy6gv1kf KWHkXRlsU80wlRVky9A9X IPhtLM8LNVrhUacQwZdtT 93Oyc+ARNtyDazg9BcDyo by9jri2qxbNl7 UdRhZZCxllXwbSpiFCH1s 5RxEu55U47wSQxbIZZoZE OvPBHaDYTroWwmpq7ocR1 wIi8+PGNvbCB3 wMN0pR0nQZZeDiK4CHhvU 962ExJxdARxOujlf5xsg9 dnoTs3EoUrXLCffcZhsEf sBSN0a6HqAm51 T56fFWptDNMpYUUkHBUqA WZdwKdjba5eaB0rCf9+PC 7ry2ilji10hG36pNV+PHR fDWA3hSmdSZzc GCBltW1yUAegVaD9AFBlN eRddW39oTDnPBgyBc2gdD keyUgyLF8aHATtkmdon05 6WrOip0alOIKl nFPaQFpcDBP1W74ul2K2G UKhPFZuKCY1sHL3lM3jcH lnbjogbGVmdDsgdmVydGl nZOrxBSnzF124 IHRvcDsnPlBhdGllbnQgT cAbQMk0M1SdAmm1NGEfsM gtZR5gvGFpXXzqYu2nfXh puSyeWX9zYYVq ymksm431EwRqf7ebYKYxs XSlRStyKJM4L47rn3D6AW QrFWUhZJH2uRG2aV0gvPt nbjogbGVmdDsg rfRpgVdyEKtaNIxwN786M HRvcDsnPkJpcnRoIERhdG K4CW17ZF71kGLtb5R3aHN 4E9VzGLIodhgd wnsbnQY3UPBxGXItfJ42X d4abSplTj8cXOCmQPY4ZL IduSJwQ7TooW5iFgVqEZR mCFMzA3WrgUKv UBduF642ZTqvGeH4WVRbu tPgR7XsROOqcVgdDgC8u9 R6Xx3EI1C1FX22FQ21lZR uc2J7mBX5C2Fg XQYttftyzdrxaKU2IUQhN LPkpU56Jy8wePxzUn3zOU DaPOT8MONeuQAeX3WctP0 yOiAjMDAwMDAw Y9UurSNrYRmkC692PIhxU vP0IDQhtiBuH6EyFHUccB fiStM2p3S6No0EHWu7OI2 5GN84wVEkh4P8 oPW3U7AgKTRpwzmhckqpr ZW4VKPxWWTyzC67Sz1klT ibIz4gUOCmQBP3KWLdzGV dK6IdtA8cJgZa FCYqHSOeG8HeoSQtBSsdP 840KJxdZwP1BXNzmiRyV5 KdGQAdeKtgIyY1q6N3Jt8 OZKIfPD24WUN9 mLN2LR59KE01K7FxJlnjm GFibGU+PHRhYmxlIHdpZH RoPScxMDAlJyBzdHlsZT0 vSy7kKJLzNWGf vHifiLRyOhUsc0qcOOLpL IzgIV3qnKfdL1ArfTJ2FL Shk5x0Nc59G32tJ4NzuLR +TBPtfBS9yQE4 nK8aUjOsPrX5PEynH070Y mTssMVyDgftp5pex7pbmJ a9WeZ0JLTkoqYzkEhzJPU 9s5MpHk18L90d IHdpZHRoPSIxNSUiIHZhb Eaifg6aoL0kQe7+PGNvbC N1aMY3vS5zZwOuBeC3HCv lA567FbAsdSNh Aupuz8eob9klwSa0PcItQ KMnemSimNqrQDX1f3DdCd 02O4JliRkme4HsGcj9wt5 0mVDvq6D0aVY4 V6ZsNHDlvdsemLUkrBneD G1xSRDgkgoaPKEhrI2lFK HyI2k0TlCmOpE7YJjxA4C yriN6GSZtqDZn NOssUHE0D11br3Z1ZPEhM RNtJHG2lWH9kU7adBxihg ogbGVmdDsgdmVydGljYWw mMBfeF188LFKm oAtdIUQscC4rFBScwXIkm BbtPW1rIVHdfcbwNviKVF 5HLCBLUklTVElOQSBFTEF FGfA2F1YvBth4 IZGcfDsuDC2wrSBaDBjiE d9trQdwoOweQI6bRXAwyd dsESDxdL1uWOTmjHOalAi yAH9nRXFlfvse n288DjPxMYH4QEQdbLBeN 2WzhS0hEtAvYXJlFRLrS7 FozGVuDUtjL119PBbgVpD 8GYRdhdNqV6Dy FNNfeYceAbN9w2O8Cv3fE j3aXW9uCJz5HS55QL37vT Oif9L6eOG8Q6YnUTHqrng xuoedcKX2ZNTc KNAsbP61mELzRDjoId5ck 3G1g180LNVaHODpmS73Mx 9irFdzWQHqbIUXoC0qbge yn9ynnpqrBdSt CARpWBr6GCa0YDFytRxeI oHrUCW6BoW5VSW5eWQezU 2djGwhilcywS8zOku+MzY pMLYjbcS4K3Hi Ynt2BPKoyBmeBI6juFTtZ AblGr1tbUflpYxjUK3qNE IhosewNATivC4cAFOskHR pmIckLO9rOMFb dyxrr459PuJxMPK9REAqj IQfU4ZlsN8iAiQeAZMqFV PzZ9FvaEKlLXppD033PPr wGnA6WRIryaJs A7OhDCNupDhjRuG9v9A9A p8PME8BDBW4M0OtIgc8AO AwsTwwOC0rdWEaORjyHu3 asHzkvCxoXJ1x QSLxxjxrBIUayB5nRGHjy DRsfKpoAP8wWQSaxhqbd3 36CcJcFYP8EBBngNWtX0W xhT9yUhMyDOYl RUUmG5SinUKySOkkB349Y BssVkK7HYHwnoQxP1RtJS XuiDwkZuN8d1X7Rx6RAUv vdGQ+BZ45we11 A8FvYiwmYwz3BZCvZJS8y ZQ8gZ7hNVUaAJrnz2D2dM W3T8ZuguAwfm9lm8ldSRM yTPdfN72oxSDx s9N3ADAbkSZ5DTMtqHfhN dGnrX94Ivu+PGNvbGdyb3 GgNrxqt7xqs0azsNm3EiB wJSIgdmFsaWdu SSL8r9SuOn46T68sLZbtR HRoPSIzMCUiIHZhbGlnbj 7fzL4xSs5+WBNswXR3eNI 4lU9zAoEeAgS1 BXcvX294JmXwcXMiTrptu 4tfq6cpnJs7BgBfEPXmqc PulQvnTPU9i1DkAb39R3M vyUugj9PuSqv1 yd43sHJcu1X7uXL3R0XqN QGramimsRZyiKkaAF3vOC EkzfrjGUFpbF0bUQSpL6n 2EgDpAmI4TXeb B6FftsM1HNVmyHItWQAmz VDRrQ5yqwvjk9zofgtaZw IyXHVjUBy6BPi0EANwiHb jYkVrKSL0PvI9 NQP2mZWimL2chKropjlkt G9wOyc+KDe7s8aegPJyOD 6dzJW4ZY09HZ01eGUfj3Z 3vVR8W4ThUZWy uibnbrrhwMQ2XXWiAEGly R83Nc4gkAncDq2oIXNdJE I0RNLuqVKaM9LtmO0zTcT pJMWlQYBfZ7Ml rBAjVMeeU966ZXncMmV8M PPsofSyD4VfNQKijDhtCr M3m7Z5Jp6JNH99HH87KX5 8uZDpz0Q5rCQ2 G5ViJOEfnmukpxekoNI4M YDvHSZwkR17Jo0ysZwrAi 3fGGOvNHQ7WUKxwCBaO6Y nyG4cZjQxOAYa MRGnB6DgmNGcMVgdM812N QmcQqO0SWRtuyQtQ0OqHL AekZxyPdH1t5M1Bq2SYk6 2EW58ZZ33uDAt o9E0zMT2S2XsQDMvintnv lyziEV7PMXqTAYiqI37Lu 6sfTseUw6yQFGyHGS8QQK vkMQtY5XxcJ3l FfDiAGIlESUeH2JsiSXdY PstF518TSrlQaS0FKPako AxU7YbZQMvbWfeRcF9f3P 3Zt7GCIuexrw7 N6EgFwnsrKT+GS69OKIvZ U49iXPwdLDft7uobPd9Og QhESEfLNL3xQylHOezr5M sJKYgI87lmVYq c2U (more content not included)... Normal [facility] ED Clinical Summaryon 2022 ED Clinical Summary [facility] ? Urgent Care [address] [place], [place] [id number] Clinical Summary PERSON INFORMATION Name: NOBLE CASTILLO Age: 37 Years Sex: FEMALE : 1985 MRN: Acct#: Visit Reason: UC - Sinus Pain or Congestion; UC - Ear Pain; LT EAR PAIN Arrival: 12/16/2022 11:36:50 Discharge: 12/16/2022 12:00:00 LOS: 000 00:24 Check In: 12/16/2022 11:36:50 Checkout: 12/16/2022 12:00:00 Address: [address] [place] [address] PCP: Ame Zaragoza CNP PROVIDER INFORMATION Provider Role Assigned Unassigned Sandra Dinh RELAY DISPATCHER Nurse 12/16/2022 11:39:08 Cong Cobian PA-C ED PA 12/16/2022 11:41:06 VITALS INFORMATION Vital Sign Triage Latest Temperature Tympanic Temperature Temporal Artery Pulse Rate O2 Sat 98 % 98 % Respiratory Rate Blood Pressure /78 mmHg /78 mmHg MEDICAL INFORMATION Medications Given: Allergy Information: Tape; Betadine; codeine PHYSICIAN DOCUMENTATION DISCHARGE INFORMATION: Discharge Disposition: Home Discharge Location: Home PATIENT EDUCATION INFORMATION Instructions: Otitis Media, Adult, Zjog-wx-Khjq Follow-Up: With: Address: When: Ame Zaragoza [address] [place], [place] [id number] Business (1) Within 1 week Comments: Please follow-up with , call the office schedule an appointment to be seen in a week or sooner for continued care, taking amoxicillin as prescribed, take edro-zez-rrbgiuk ibuprofen Tylenol as needed for pain and fever, drink plenty water stay hydrated, and return back to the urgent care center for any worsening symptoms, concerns, or complications. DIAGNOSIS: 1:Left otitis media Patient Understands: Yes - Patient/family/caregi regina verbalizes understanding of instructions given Comment: Normal [facility] ED Patient Summaryon 023 ED Patient Summary [facility] ? Urgent Care [address] [place], [place] [id number] PATIENT DISCHARGE INSTRUCTIONS Patient Information Name: NOBLE CASTILLO Age: 37 Years Date of : 1985 [facility]: [id number] Reason For Visit: UC - Sinus Pain or Congestion; UC - Ear Pain; LT EAR PAIN Arrival Time: 12/16/2022 11:36:50 Primary Care Physician: Ame Zaragoza CNP Attending Physician: Cong Cobian PA-C Comment: Patient Education With: Address: When: Ame Zaragoza [address] [place], [place] [phone] Business (1) Within 1 week Comments: Please follow-up with , call the office schedule an appointment to be seen in a week or sooner for continued care, taking amoxicillin as prescribed, take tjrt-bxy-bbmwyrw ibuprofen Tylenol as needed for pain and [...] Follow these instructions at home: ? Take dzmx-wxh-yrvrqbz and prescription medicines only as told by [...] provider. Document Revised: 01/25/2022 Document Reviewed: 01/25/2022 [employer] Patient Education ? 2021 [employer]. Medication Information: The exam and treatment you received today in the [facility] Emergency Department were for an urgent problem and are not intended as complete care. It is important for you to follow up with a doctor, nurse practitioner, or physician?s office clerk assistant for ongoing care. If your symptoms [...] Radiologist will (more content not included)... Normal [facility] Recordon 023 Urgent Care Record [facility] ? Urgent Care [address] [place] [address] PATIENT DISCHARGE INSTRUCTIONS Patient Information Name: NOBLE CASTILLO Age: 37 Years Date of : 1985 [facility]: [id number] Reason For Visit: UC - Sinus Pain or Congestion; UC - Ear Pain; LT EAR PAIN Arrival Time: 12/16/2022 11:36:50 Primary Care Physician: Ame Zaragoza CNP Attending Physician: Cong Cobian PA-C Comment: Visit Diagnosis: Diagnoses This Visit Left otitis media (H66.92) UC - Ear Pain ([id number]) UC - Sinus Pain or Congestion ([id number]) If you received any narcotics, sedation, or [...] documents With: Address: When: Ame Zaragoza [address] [place] [address] Business (1) Within 1 week Comments: Please follow-up with , call the office schedule an appointment to be seen in a week or sooner for continued care, taking amoxicillin as prescribed, take tedt-dpm-qtlwfbp ibuprofen Tylenol as needed for pain and fever, drink plenty water stay hydrated, and return back to the urgent care center for any worsening symptoms, concerns, or complications. Medication Information: The exam and treatment you received today in the [facility] Urgent Care were for an urgent problem and are not intended as complete care. It is important for you to follow up with a doctor, nurse practitioner, or physician?s office clerk assistant for ongoing care. If your symptoms [...] so we can reach you if necessary. [facility] has provided you with a complete list of medications post discharge. Please inform your operating cost clerk/provider of your visit and for further instruction on these medications. Any specific questions regarding your chronic medications and dosages should be discussed with your primary care physician(s) and/or pharmacist. New Medications [id number], [address], [place] [id number], [phone] amoxicillin (amoxicillin 500 mg oral capsule) 1 [...] 1 capsule by mouth once daily. rizatriptan (Maxalt-AIR BRAKES INSPECTOR 10 mg oral tablet, disintegrating) 1 tab(s) [...] The condition (more content not included)... Normal [facility] ER URINE PROFILEon 2 Bilirubin Ql (U) Negative Normal NEGATIVE [facility] Comment on above: Performed By: #### E RUR #### [facility] [address] [place] [address] Dr. Phong Thayer Clarity (U) CLEAR Normal CLEAR [facility] Comment on above: Performed By: #### E RUR #### [facility] [address] [place] [address] Dr. Phong Thayer Color (U) LT. YELLOW Normal YELLOW [facility] Comment on above: Performed By: #### E RUR #### [facility] [address] [place] [address] Dr. Phong Thayer ERUAHD A micrscopic examination will be performed if indicated. Normal [facility] Comment on above: Performed By: #### E RUR #### [facility] [address] [place] [address] Dr. Phong Thayer Glucose Ql (U) Negative Normal NEGATIVE [facility] Comment on above: Performed By: #### E RUR #### [facility] [address] [place] [address] Dr. Phong Thayer Hemoglobin Ql (U) Negative Normal NEGATIVE [facility] Comment on above: Performed By: #### E RUR #### [facility] [address] [place] [address] Dr. Phong Thayer Ketones Ql (U) Negative Normal NEGATIVE [facility] Comment on above: Performed By: #### E RUR #### [facility] [address] [place] [address] Dr. Phong Thayer LEUKOCYTES Negative Normal NEGATIVE [facility] Comment on above: Performed By: #### E RUR #### [facility] [address] [place] [address] Dr. Phong Thayer Nitrite Ql (U) Negative Normal NEGATIVE [facility] Comment on above: Performed By: #### E RUR #### [facility] [address] [place] [address] Dr. Phong Thayer pH (U) 6.5 [pH] Normal 5-9 [facility] Comment on above: Performed By: #### E RUR #### [facility] [address] [place] [address] Dr. Phong Thayer SPEC GRAVITY 1.015 Normal 1.005-<=1.02 5 [facility] Comment on above: Performed By: #### E RUR #### [facility] [address] [place] [address] Dr. Phong Thayer UA PROTEIN Negative Normal NEGATIVE/ TRACE [facility] Comment on above: Performed By: #### E RUR #### [facility] [address] [place] [address] Dr. Phong Thayer UR MICRO IND NOT INDICATED Normal [facility] Comment on above: Performed By: #### E RUR #### [facility] [address] [place] [address] Dr. Phong Thayer Urobilinogen Qn (U) 0.2 {Gilma'U}/dL Normal 0.2 - 1. 0 [facility] Comment on above: Performed By: #### E RUR #### [facility] [address] [place] [address] Dr. Phong Thayer XR LSPINE 2_3 VIEWSon [...] DONALD CANNON Date: 2022-10-23 16:28 Normal The [facility] Coding Summaryon 10-01-2022 Coding Summary HTMLBase 64 QivtnsvtQCq4dLu+PGhlY WQ+MR0GAVPwN98blRCvmW 0DS7wKMF0OIETWGVKCNP8 VJC2ipQT5RRhiK9AbvnJw XzynuENpZS03RPf7CHF4o MrfMLuhiC1geQItD8o2Ri VbYN45gC36EKqwUSIcYfE 3LjZpbjsgbWFy H4euQpHlzLIvCca+PHRhY mxlIHdpZHRoPScxMDAlJy XfaDgaSK5ePt0uPIExLKY vbGxhcHNlOiBj m9icEWYnBUlzKZ7vgFobH 4UlkAM3JNAim5w4Jn98gJ I+VCPvASB1xPfoHOame58 4XmRwr8bhJZR0 cOLzPQbcUNH6X50gw2F4H UIqEUDcSOK3gZQ5pT9acN tgqyujQ7BdlPEzVrA5JTX 2xQRbwK1ivKsi drritJ3lBqu+J14ZNU6PU ACUJC3DPrs2H3LaFvqwkG I+OD28FHDcJU13oMSxuYJ rh9qxkXq1GsUw ASUhRJC9yPqmFFdoh7IhB PNhP55jrRAwl8A0ESUscL bryQZdTpWcyWV4bL9kWUw ovtfzl2jrvxud Rwrjt1mkrm66tR97Y20jX QcuSKRmBNJ6MAByXQXgdI cwvo0vxH5mMt6+NKqoz4y yh2zeaBr1KuUd VBYtsgRjeEsaHQI6s7GxG x97N9AmwWums6QnJqb1vf 68sUPpu2D7oVT6NBpyQIQ hqF6kTVmtUrU5 SCWkRgUzrY55bAWqIKjfV o4udAixlEcrWU3mRVBrdf tfUQIvsF6iPARywBJimOl gJI0vECHjeyqi m562HkVbSEZ8EZBfoJYiO 6LilZ9aRcGgVFHtYUHnV4 PpgOAyCAdmA686TEuoFiQ 0MVNfolQcT3Ou GQXayXevJcQ0h7X5Cu5At 0IzzkbjHIA8QLeaLQQxKy DpFpSrLsH8I0KxApb2JAZ pdUmeTW9aD8Ga TJJmephizgjscQA8DULpB DFwjW77qAKnRBdvYk0eb3 Z2j093JXSjQHJovV98Gb1 udDogMTBwdCBU vX5bzuoxu4zdncjxRwKlK MKcTDn6SNa5HVXabBinVk HySKP8QnW7NXP8wISzmE4 kxAzhtxjgxP2l Oyc+W15ziV4uCLC5UAF3a htsAPHaeyWdKA77WB69L2 RyPjwvdGFibGU+PGRpdiB asEhpSY3lInSn r6dkx7XkTQnrS9LzQVWfA LwdZpa7QCWfOAK6hNG4pT 8hHQEiUTibc1M6mXQ8Q1G zknPwwy7jb6kz ZPOwIMstI12kaHMwz1E7O JLhzBY9YNLtjNvsOwTyxO 93Oyc+CMApaWffm6XtQfy fw8pkb4xeoTr0 DrMwRLUkseVffXznSPK8h 9VdDv06M35bZGepBCSeDW MgHLDtKZCkkEylvx4nlG5 wIi8+PGNvbCB3 fYD7yR5tXTToGsY2NTvlL 572IoQouORyYkgjx4zjt4 nvxQm8ZvSaOCMvpuIaeUy rJDT1l7LoTw20 B51tMUnoCKYyGYSyHQMrK CEioRqjry5lmL7xZt9+PC 7ri8daej80qX72mIH+PHR iBUJ5cMuvDPuf XGWhvY5wLOunGrZ7YYTrZ hNkcC05cGDnEUmpMk3jvZ offYrkWL6oJFZqkgtpa46 3AcPqr8ncNXCp gRArEXpjBTQ5L74jn4E1K YKpLEZzYTW6xHJ9vM8cyA lnbjogbGVmdDsgdmVydGl hASvwOVorX312 IHRvcDsnPlBhdGllbnQgT mRtHEs9H9VgHuh6VQGbfO acAV5ikUGsUKwmWp4ibKn tuOruEY5mTFAe ryreo588YaYcf8iqAWJpj TBvKGetBNN5N37xr0S4VD LvOKImQJI7yCV1xN4xhLk nbjogbGVmdDsg umDwpEhvGNyiBVonE324H HRvcDsnPkJpcnRoIERhdG Y5CC12RM45hGGuo9J7fDQ 9E9LhUSIouvix jkyzwMA2KXDlZXUlqY12L s7spLslPt0sRKElHUW4MY BxnXKkW8FisM6ySgKxYVQ iBFUfQ0KrtFMc YCwqW582BUchObB6KVRyc wZjR8TgMLVydVagWwO3o1 B5Kd9ZM8U2TE50WJ79fFQ hq2I2jQC1B4Gk CANjsxaywntmkJN3MNYmR GCuyD74Pe1boRbuJt5fCZ NxGYQ7JMKkfNZoL1BonV5 yOiAjMDAwMDAw M2CesZQjYEcjB662CRetM vD5UAUsdnHgE1HvRRNbgN ruSyG8w2C8Pq4ZUJx8YV3 8XX10dMMrs0T8 eTV3O8JkGBIezusperall IA7THAoWIIplD04Oz0irQ dwLc6aWGZmVTN6QJDlwYF pX2CjxH6vXhHx SORsWKSzE5VlsYJgNZryJ 033QInwTdX5YRPdrqMrG4 WfRDBryEydXxE9i5Z5Gp2 GCPZiZF01MTG2 aUU3RM08QY18Y2SwArbqp GFibGU+PHRhYmxlIHdpZH RoPScxMDAlJyBzdHlsZT0 oLz1iCAJoHRTv hUfruQLgEbLgr4qwJXCiI DssTC0zrYlyO4PszEZ8VA Yqc0r9Ng05P84qA0UcaQF +LBZfaPJ8mTH4 tC0aOoNvPpN0JIqnJ222H uRfhGGrXsaww0rlc1ixeK v8GgS3KEMwdyErxRplSTT 7e2TjAd02R00a IHdpZHRoPSIxNSUiIHZhb Ofmzp9gvT7vJf6+PGNvbC E0yQB8gC0xQkVmDgN1RPd kG848CzIxcFNx Nrqeo9ndc2ogdSs1PmVcJ ZUyzjHboXxtGMU7t0YuFq 06A5RmvKtuz3MwEft6sy1 3dHFqc0I3hBT7 R9RmPHEdbytekMOhsJpaE Y6tXIHxzdljDVOrsF8bDP TjN1p8MxNcMmB5IZuaC7R uuvW9JENcmSAn MDjaFEV7E51df1E4ALJdH WOgGDH5dNY4nD7ohBdefr ogbGVmdDsgdmVydGljYWw eVRjzD252LEKn ySegSMNhlL2bIRQjaKNrk PzvWA0yLTKnfmcjSbtCLL 5HLCBLUklTVElOQSBFTEF VNfS0O5RrFyq7 XVCkzDvfEH6jwTTvGFidX e3clXcqvTptQU5kITGjhn pnECKqdD9dSZLmbGPpeLr gUO7dBOOepmed n119JtCjHXE2NVGzfYJxP 1GxkM1kUpZvCLUcQMIrU0 HjtDOsJCvjM074CLmlWsL 2QFGoukYfA7Gn BEJtiVpmQeN5y2B8Fm8rN w9wYT1uBMv1JC05UD46sF Zho8N8uHZ8P0SdNVIibpx eghgppMK2ZKIx GVStgH57vCElZTndIm4hp 8X1d710OURcJHBttQ49Pb 8fpDgrAEQraPNZfQ2taon nv2giyfzcYoKn QZSfQJs2YPc8PULfhHcvB tYfGML6GiJ7DRN6vGElpI 6rvKkntjayzF6fFsn+MzY zBMVsyvU9K6At Wai5TFFwjNqwIE3jmCYjV MpoHi6biRajgAvmMZ1rHW DyvdfiHLMemH3pAHQgwPO kvNyjKS5nIOVh iywss796ReIzCAB3OZLdn PSbK2WszX2mLsBxOGXiDC EmF9ExhLYgMQjsY240JPi jOjB3BNPiykVv W7UvXBKlzFveEyF0j0A8B r0YPH0SVRL3X1XqFmu0IY CyyMuePP7qeBDiTUyhKt7 opGehmYszXO9m CLHjbktkVDVxyC3gLAVaq YVhhIjfAB2oVGCarfdzw7 50LeCsVCH9PWVfoAEfQ7E lxV5pOpQmUMZj YWYlI2RpcIOjCArcW289O NssNlY2JJRaizWbK0CzMV VuyIscWxC9b6X1Wg6VXMu vdGQ+KG44zr29 F9ObKqjuWzy5DHZnCBO4c EE0qF9qOOKtXVdbe3D6wV V3M7PyrpHfej0fw7zcAJR jGWwrW97gpHQj g5D6GGQvpDD3VJPzkZsrA vNtvQ67Zmo+PGNvbGdyb3 UqQvcml2jnz8bihRx0RxF wJSIgdmFsaWdu LJS9m6YcMf49I21zIIfjG HRoPSIzMCUiIHZhbGlnbj 9prS2fUe0+CQNxrCK8pCE 2uQ3mBhBkXbU2 KCocW218WpEngYJqCpkqw 4yed5tsbOh7QlJhDWYqef EabElwOBO4i6LoGp42Q0U rsWanb3SgKff1 wo32pKKoo7Q0hFU8B9VqJ MTqvyczsGHhpMomAV2fIA TplhuxUUYobM7kZZQyU8q 1MsRnKgC3WWms T3KkxvW9KFKcbMQdUODwn QYYyY0bzmdzy0sznhojEn WmKUZxKZn1BYt4DFNprUi nOdToSGZ7HrH6 DEA9mUOtzT6fsMimyasok G9wOyc+ZSp9e9ujcGBgHK 3zpJJ4NZ60UY59lJZyq8S 8iUA2A5XdYYFt xhogbgxttLU3XEEuLOWlm C15Jb0psWueKe7rCPPbMK M3SHOjrUYvR0GvrO9sJnN hRURoBLTqJ2Qz aRRlFCynV298ZEclXtA8A JUqozUcI6JrJYIprUwhJb J7j5W4Xk6MGO35QO95AF6 8aNUif0Q5iBC2 V2LcYVKwslhbmmuryCI0D QKnRXVrlP14Tt4rvOhcJd 8qHRUrBEB2FSJmpLIxO4S naX9nNdRkWWXy EBUcO0ObtECgDKanP507Z YxxAgI8YSAenxOnR0VqTF GshPfpUkV4l5A8Ng8CJh8 4GN78DD35hAVo t2Q9qDP3P6FxAHLonfode wipzXC2RTFrCFBcqU71Xp 3qlBdoQh0cOJAyJDT7FHK crTYkV7MqkS0a MmSgDZIiHSMsI3MfcMNyI ZiyV247YQjbHqD7SLWgkn FsB5TgRIDfvOthOcX4e6Z 0Kx2YTBlmzbm0 R4MdTtzloTW+QN08YKJnG F93cTYunTOoe3tohYp2St VvBBBpEJY5tKkySGoun3Y fXABjC13puIDb c2U (more content not included)... [facility] Outside Recordson 09-30-2022 Outside Records [id number]. [id number] [facility] ED Clinical Summaryon 2021 ED Clinical Summary [facility] ? Urgent Care [address] [place] [address] [id number] Clinical Summary PERSON INFORMATION Name: NOBLE CASTILLO Age: 37 Years Sex: FEMALE : 1985 MRN: Acct#: Visit Reason: Medical screening exam; [employer]ULT [employer] Arrival: 09/29/2022 10:32:28 Discharge: 09/29/2022 11:15:00 LOS: 000 00:43 Check In: 09/29/2022 10:32:28 Checkout: 09/29/2022 11:15:00 Address: [address] [place] [address] PCP: Ame Zaragoza CNP PROVIDER INFORMATION Provider [...] regina verbalizes understanding of instructions given Comment: [facility] ED Patient Summaryon 022 ED Patient Summary [facility] ? Urgent Care [address] [place] [id number] PATIENT DISCHARGE INSTRUCTIONS Patient Information Name: NOBLE CASTILLO Age: 37 Years Date of : 1985 [facility]: [id number] Reason For Visit: Medical screening exam; [employer] Arrival Time: 09/29/2022 10:32:28 Primary Care Physician: Ame Zaragoza CNP Attending Physician: Abhi Finney PA-C Comment: Patient Education Medication Information: The exam and treatment you received today in the [facility] Emergency Department were for an urgent problem and are not intended as complete care. It is important for you to follow up with a doctor, nurse practitioner, or physician?s office clerk assistant for ongoing care. If your symptoms [...] so we can reach you if necessary. [facility] Emergency Department has provided you with a complete list of medications post discharge. Please inform your operating cost clerk/provider of your visit and for further instruction [...] capsule) 1 cap(s) Oral every day. rizatriptan (Maxalt-AIR BRAKES INSPECTOR 10 mg oral tablet, disintegrating) 1 tab(s) [...] Diagnosis: Diagnoses This Visit Medical screening exam ([id number]) If you received any narcotics, sedation, or any other medication that causes drowsiness for the next 24 hours, unless otherwise directed: ? Do not drive a car. ? Do not operate machinery such as power tools, Jumon mowers, drills, sewing machines, or stoves ? [...] the Ans (more content not included)... Normal [facility] Urgent Care Note- Provideron 09-29-2022 Urgent [...] tab(s), PO, Daily, 28 tab(s), 0 Refill(s) Maxalt-AIR BRAKES INSPECTOR 10 mg oral tablet, disintegratin mg = [...] selected or recorded.. Surgical history: Diagnostic laparoscopy ([id number]) on 07/24/2019 at 34 Years. Tonsillectomy and adenoidectomy ([id number]). Lump ([id number]). Comments: 07/16/2019 11:30 Arabella Day RN left axilla Cholecystectomy ([id number]). Keloid of skin ([id number]). Comments: 07/16/2019 11:31 Arabella Day RN left ear Foot ([id number]). Comments: 07/16/2019 11:32 Arabella Day RN titanium implant left ankle Dilatation and curettage ([id number]). Tooth extraction, multiple ([id number]). Comments: 07/16/2019 11:33 Arabella Day RN wisdom Sinus ([id number]). Comments: 07/16/2019 11:33 Arabella Day RN x2 Colonoscopy ([id number]). Esophagogastroduodeno scopy ([id number]).. Family history: No family history items have [...] 09/29/2022 11:09 EST] Abhi Finney PA-C Normal [facility] Recordon 022 Urgent Care Record [facility] ? Urgent Care [address] [place] [address] PATIENT DISCHARGE INSTRUCTIONS Patient Information Name: NOBLE CASTILLO Age: 37 Years Date of : 1985 Reason For Visit: Medical screening exam; [employer]ULT [employer]OL PHYSICAL Arrival Time: 09/29/2022 10:32:28 Primary Care Physician: Ame Zaragoza CNP Attending Physician: Abhi Finney PA-C Comment: Visit Diagnosis: Diagnoses This Visit Medical screening exam ([id number]) If you received any narcotics, sedation, or [...] and treatment you received today in the [facility] were for an urgent problem and are not intended as complete care. It is important for you to follow up with a doctor, nurse practitioner, or physician?s office clerk assistant for ongoing care. If your symptoms [...] so we can reach you if necessary. [facility] has provided you with a complete list of medications post discharge. Please inform your operating cost clerk/provider of your visit and for further instruction [...] capsule) 1 cap(s) Oral every day. rizatriptan (Maxalt-AIR BRAKES INSPECTOR 10 mg oral tablet, disintegrating) 1 tab(s) [...] Disease Control and Prevention July 2014 Normal [facility] T3, TOTAL (TRIIODOTHYRONINE) on 09-16-2022 T3, TOTAL 132 ng/dL Normal 71-180 [facility] Comment on above: Performed By: #### T 3TOTAL ####[facility] [address] [place], [place] [address]Jl. Sherijose Thayer CBC AUTO DIFFon 09-15-2022 BASO # 0.0 103/ul Normal 0.0-0.1 [facility] Comment on above: Performed By: #### C BC #### [facility] [address] [address] [address] Phong Thayer Basophils/100 WBC (Bld) 0.3 % Normal 0.2-2.0 [facility] Comment on above: Performed By: #### C BC #### [facility] [address] [address] [address] Phong Thayer EO # 0.1 103/ul Normal 0.0-0.7 [facility] Comment on above: Performed By: #### C BC #### [facility] [address] [place] [address] Dr. Phong Thayer Eosinophils/100 WBC (Bld) 0.8 % Critically low 0.9-7.0 [facility] Comment on above: Performed By: #### C BC #### [facility] [address] [place] [address] Dr. Phong Thayer Erythrocyte distribution width (RBC) [Ratio] 12.5 % Normal 11.0-15.0 [facility] Comment on above: Performed By: #### C BC #### [facility] [address] [place] [address] Dr. Phong Thayer Hematocrit (Bld) [Volume fraction] 42.2 % Normal 36.0-48.0 [facility] Comment on above: Performed By: #### C BC #### [facility] [address] [place] [address] Dr. Phong Thayer Hemoglobin (Bld) [Mass/Vol] 14.3 g/dL Normal 12.0-16.0 [facility] Comment on above: Performed By: #### C BC #### [facility] [address] [place] [address] Dr. Phong Thayer IG # 0.01 10e3/ul Normal 0.00-0.03 [facility] Comment on above: Performed By: #### C BC #### [facility] [address] [place] [address] Dr. Phong Thayer IG % 0.1 % Normal 0.0-0.5 [facility] Comment on above: Performed By: #### C BC #### [facility] [address] [place] [address] Dr. Phong Thayer LYMPH # 2.5 103/ul Normal 1.2-3.8 [facility] Comment on above: Performed By: #### C BC #### [facility] [address] [place] [address] Dr. Phong Thayer Lymphocytes/100 WBC (Bld) 33.7 % Normal 20.5-60.0 [facility] Comment on above: Performed By: #### C BC #### [facility] [address] [place] [address] Dr. Phong Thayer MANUAL DIFF REQ NO Normal [facility] Comment on above: Performed By: #### C BC #### [facility] [address] [place] [address] Dr. Phong Thayer MCH (RBC) [Entitic mass] 29.1 pg Normal 26.7-34.0 [facility] Comment on above: Performed By: #### C BC #### [facility] [address] [place] [address] Dr. Phong Thayer MCHC (RBC) [Mass/Vol] 33.9 g/dL Normal 29.9-35.2 [facility] Comment on above: Performed By: #### C BC #### [facility] [address] [place] [address] Dr. Phong Thayer MCV (RBC) [Entitic vol] 85.9 fL Normal 81.0-99.0 [facility] Comment on above: Performed By: #### C BC #### [facility] [address] [place] [address] Dr. Phong Thayer MONO # 0.4 103/ul Normal 0.3-0.8 [facility] Comment on above: Performed By: #### C BC #### [facility] [address] [place] [address] Dr. Phong Thayer Monocytes/100 WBC (Bld) 5.3 % Normal 1.7-12.0 [facility] Comment on above: Performed By: #### C BC #### [facility] [address] [place] [address] Dr. Phong Thayer NEUT # 4.5 103/ul Normal 1.4-6.5 [facility] Comment on above: Performed By: #### C BC #### [facility] [address] [place] [address] Dr. Phong Thayer Neutrophils/100 WBC (Bld) 59.8 % Normal 43.0-75.0 [facility] Comment on above: Performed By: #### C BC #### [facility] [address] [place] [address] Dr. Phong Thayer Platelet mean volume (Bld) [Entitic vol] 10.2 fL Normal 9.5-13.5 [facility] Comment on above: Performed By: #### C BC #### [facility] [address] [place] [address] Dr. Phong Thayer PLT 227 103/ul Normal 150-450 [facility] Comment on above: Performed By: #### C BC #### [facility] [address] [place] [address] Dr. Phong Thayer RBC 4.91 106/ul Normal 4.20-5.40 [facility] Comment on above: Performed By: #### C BC #### [facility] [address] [place] [address] Dr. Phong Thayer WBC 7.5 103/ul Normal 4.0-11.0 [facility] Comment on above: Performed By: #### C BC #### [facility] [address] [place] [address] Dr. Phong Thayer FREE THYROXINE INDEX T7on FTI 2.37 Normal 1.30-4.50 [facility] Comment on above: Performed By: #### T SH, T4, T7, CMP #### [facility] [address] [place] [address] Dr. Phong Thayer T3U 32.0 % Normal 30.0-39.0 [facility] Comment on above: Performed By: #### T SH, T4, T7, CMP #### [facility] [address] [place], [place] [address] Dr. Phong Thayer LIPID PROFILEon 09-15-2022 CHOL-HDL RATIO NORM SEE BELOW Normal [facility] Comment on above: Result Comment: 3.3 - 4.4 LOW RISK 4.4 - 7.1 AVERAGE RISK 7.1 - 11.0 MODERATE RISK >11.0 HIGH RISK Performed By: #### L IPID ####[facility] [address] [place], [place] [address]Pb. Phong Thayer Cholesterol [Mass/Vol] 163 mg/dL Normal <=200 [facility] Comment on above: Performed By: #### L IPID ####[facility] [address] [place], [place] [address]LzAnnalee Thayer Cholesterol in HDL [Mass/Vol] 57 mg/dL Normal 40-60 [facility] Comment on above: Performed By: #### L IPID ####[facility] [address] [id number]. Phong Thayer Cholesterol in LDL [Mass/Vol] 69.8 mg/dL Normal [facility] Comment on above: Performed By: #### L IPID ####[facility] [address] [place], [place] [address]Za. Phong Thayer Cholesterol.total/Ch olesterol in HDL [Mass ratio] 2.9 {ratio} Normal [facility] Comment on above: Performed By: #### L IPID ####[facility] [address] [id number]. Phong Thayer HDL NORMAL > or = 60 mg/dl - LO W CARDIOVASCULAR RISK <40 mg/dl - HIGH CARDIOVASCULAR RISK Normal [facility] Comment on above: Performed By: #### L IPID ####[facility] [address] [id number]. Phong Thayer LDL CALC NORMAL SEE BELOW Normal [facility] Comment on above: Result Comment: <100 mg/dl OPTIMAL 100 - 129 mg/dl NEAR OR ABOVE OPTIMAL 130 - 159 mg/dl BORDERLINE HIGH 160 - 189 mg/dl HIGH >190 mg/dl VERY HIGH Performed By: #### L IPID ####[facility] [address] [place], [place] [address]DyDr. Phong Thayer Triglyceride [Mass/Vol] 181 mg/dL Critically high <=150 [facility] Comment on above: Performed By: #### L IPID ####[facility] [address] [place], [place] [address]SeDr. Phong Thayer VLDL CALC 36.2 mg/dL Normal [facility] Comment on above: Performed By: #### L IPID ####[facility] [address] [place], [place] [address]UkAnnalee Thayer PROF 14(COMP METB)on 022 Albumin [Mass/Vol] 3.6 g/dL Normal 3.4-5.0 [facility] Comment on above: Performed By: #### T SH, T4, T7, CMP #### [facility] [address] [address] [address] Phong Thayer Albumin/Globulin [Mass ratio] 1.0 {ratio} Normal [facility] Comment on above: Performed By: #### T SH, T4, T7, CMP #### [facility] [address] [address] [address] Phong Thayer ALP [Catalytic activity/Vol] 90 U/L Normal 46-116 [facility] Comment on above: Performed By: #### T SH, T4, T7, CMP #### [facility] [address] [address] [address] Phong Thayer ALT [Catalytic activity/Vol] 27 U/L Normal 14-59 [facility] Comment on above: Performed By: #### T SH, T4, T7, CMP #### [facility] [address] [address] [address] Phong Thayer Anion gap [Moles/Vol] 14.2 mmol/L Normal [facility] Comment on above: Performed By: #### T SH, T4, T7, CMP #### [facility] [address] [address] [address] Phong Thayer AST [Catalytic activity/Vol] 13 U/L Critically low 15-37 [facility] Comment on above: Performed By: #### T SH, T4, T7, CMP #### [facility] [address] [address] [address] Phong Thayer Bilirubin [Mass/Vol] 0.2 mg/dL Normal 0.2-1.0 [facility] Comment on above: Performed By: #### T SH, T4, T7, CMP #### [facility] [address] [place] [address] Dr. Phong Thayer Calcium [Mass/Vol] 9.0 mg/dL Normal 8.5-10.1 [facility] Comment on above: Performed By: #### T SH, T4, T7, CMP #### [facility] [address] [place] [address] Dr. Phong Thayer Chloride [Moles/Vol] 103 mmol/L Normal 98-107 [facility] Comment on above: Performed By: #### T SH, T4, T7, CMP #### [facility] [address] [place] [address] Dr. Phong Thayer CO2 [Moles/Vol] 23.9 mmol/L Normal 21.0-32.0 [facility] Comment on above: Performed By: #### T SH, T4, T7, CMP #### [facility] [address] [place] [address] Dr. Phong Thayer Creatinine [Mass/Vol] 0.76 mg/dL Normal 0.55-1.02 [facility] Comment on above: Performed By: #### T SH, T4, T7, CMP #### [facility] [address] [place] [address] Dr. Phong Thayer EGFR-AF MALIAN >60 Normal >=60 [facility] Comment on above: Performed By: #### T SH, T4, T7, CMP #### [facility] [address] [place] [address] Dr. Phong Thayer EGFR-NON AF MALIAN >60 Normal >=60 [facility] Comment on above: Performed By: #### T SH, T4, T7, CMP #### [facility] [address] [place] [address] Dr. Phong Thayer Globulin (S) [Mass/Vol] 3.6 g/dL Normal [facility] Comment on above: Performed By: #### T SH, T4, T7, CMP #### [facility] [address] [address] [address] Phong Thayer Glucose [Mass/Vol] 95 mg/dL Normal 74-106 [facility] Comment on above: Performed By: #### T SH, T4, T7, CMP #### [facility] [address] [place] [address] Dr. Phong Thayer Potassium [Moles/Vol] 4.1 mmol/L Normal 3.5-5.1 [facility] Comment on above: Performed By: #### T SH, T4, T7, CMP #### [facility] [address] [place] [address] Dr. Phong Thayer Protein [Mass/Vol] 7.2 g/dL Normal 6.4-8.2 [facility] Comment on above: Performed By: #### T SH, T4, T7, CMP #### [facility] [address] [place] [address] Dr. Phong Thayer Sodium [Moles/Vol] 137 mmol/L Normal 136-145 [facility] Comment on above: Performed By: #### T SH, T4, T7, CMP #### [facility] [address] [place] [address] Dr. Phong Thayer Urea nitrogen [Mass/Vol] 13.0 mg/dL Normal 7.0-18.0 [facility] Comment on above: Performed By: #### T SH, T4, T7, CMP #### [facility] [address] [place] [address] Dr. Phong Thayer Urea nitrogen/Creatinine [Mass ratio] 17.1 mg/mg Normal [facility] Comment on above: Performed By: #### T SH, T4, T7, CMP #### [facility] [address] [place] [address] Dr. Phong Thayer T4on 09-15-2022 T4 [Mass/Vol] 7.40 ug/dL Normal 4.80-13.90 [facility] Comment on above: Performed By: #### T SH, T4, T7, CMP #### [facility] [address] [place], [place] [address] Dr. Phong Thayer TSHon 09-15-2022 TSH 2.515 uIU/mL Normal 0.358-3.740 [facility] Comment on above: Performed By: #### T SH, T4, T7, CMP #### [facility] [address] [place], [place] [address] Dr. Phong Thayer VITAMIN B12on 09-15-2022 Cobalamin (Vitamin B12) [Mass/Vol] 423.0 pg/mL Normal 193.0-986.0 [facility] Comment on above: Performed By: #### V ITCLAIRE, VITB12 ####[facility] [address] [id number] Thayer VITAMIN D 25 OHon 09-15-2022 VIT D 25-OH 28.3 ng/mL Normal [facility] Comment on above: Performed By: #### V ITCLAIRE, VITB12 ####[facility] [address] [id number] Thayer VIT D RANGES SEE BELOW Normal [facility] Comment on above: Result Comment: <20 ng/mL Vit D deficient 20 - <30 ng/mL Vit D insufficient 30 - 100 ng/mL Vit D sufficient >100 ng/mL Potential Toxicity Performed By: #### V ITAD, VITB12 ####[facility] [address] [id number] Thayer A1C HEMOGLOBINon 09-02-2022 HbA1c (Bld) [Mass fraction] 5.1 % [employer] Other HbA1c (Bld) [Mass fraction]o n 09-02-2022 A1C HEMOGLOBIN [facility] [employer] Other Lab - Reference Lab Resultso n 07-19-2022 Lab - Reference Lab Results [id number] 0OTGTIFF [facility] T-Spoton 07-16-2022 T-Spot See Report [facility] Comment on above: Performed By: #### 5 [id number], [id number] ####[facility] (DEFAULT)[address] [place] [address] HBSab Qnt LCon 07-14-2022 Hep B Surf Ab Quant LC 301.3 mIU/mL Invalid Interpretation Code Immunity>9.9 [facility] Comment on above: Result Comment: Stat us of Immunity Anti-HBs Level Inconsistent with Immunity 0.0 - 9.9 Consistent with Immunity >9.9 Performed At: [address] [id number] Pancho Higgins PhD Ph:[phone] Performed By: #### 5 [id number], [id number], [id number] ####[facility] (DEFAULT)[address] [place] [address] Lab - Toxicology Resultson 0 07-14-2022 Lab - Toxicology Results [id number] 0OTGTIFF [facility] Measles/Mumps/Rubella Immuni ty LCon 07-14-2022 Mumps Abs, IgG LC 38.4 AU/mL Invalid Interpretation Code Immune >10.9 [facility] Comment on above: Result Comment: Nega tive <9.0 Equivocal 9.0 - 10.9 Positive >10.9 A positive result generally indicates past exposure to Mumps virus or previous vaccination. Performed At: [address] [id number] Pancho Higgins PhD Ph:[phone] Performed By: #### 5 [id number], [id number], [id number] ####[facility] (DEFAULT)[address] [place] [address] Rubella Antibodies, IgG LC 5.78 index Invalid Interpretation Code Immune >0.99 [facility] Comment on above: Result Comment: Non- immune <0.90 Equivocal 0.90 - 0.99 Immune >0.99 Performed By: #### 5 [id number], [id number] ####[facility] (DEFAULT)[address] [place] [address] Rubeola Ab, IgG, EIA LC 72.4 AU/mL Invalid Interpretation Code Immune >16.4 [facility] Comment on above: Result Comment: Nega tive <13.5 Equivocal 13.5 - 16.4 Positive >16.4 Presence of antibodies to Rubeola is presumptive evidence of immunity except when acute infection is suspected. Performed By: #### 5 [id number], [id number], [id number] ####[facility] (DEFAULT)[address] [place] [address] Nicotine Metabolite, Urine L Con 07-14-2022 Cotinine LC Negative Invalid Interpretation Code Limpde=958 [facility] Comment on above: Result Comment: Perf ormed At: [facility] RTP [address] [facility], [place] [id number] Mark Puentes PhD Ph:[phone] Performed By: #### 1 [id number] ####[facility] (DEFAULT)[address] [place] [address] XR FOOT AIDA MIN 3 VIEWSon XR [...] by: RAFAEL COATS Date: 2022-07-07 13:58 Normal [facility] Urine culture routineOrdered By: AME ZARAGOZA on 05-27-2022 Bacteria identified Cx Nom (U) Staphylococcus saprophyticus [facility] Urinalysis - AUTOMATEDon Appearance (U) clear [employer] Other Bilirubin Ql (U) Negative [employer] Other Color (U) lt. yellow [employer] Other Glucose Ql (U) Negative [employer] Other Hemoglobin Ql (U) moderate [employer] Other Ketones Ql (U) Negative [employer] Other Leukocyte esterase Test strip Ql (U) small [employer] Other Nitrite Ql (U) Negative [employer] Other pH (U) 6.0 [pH] [employer] Other Protein Ql (U) Negative [employer] Other Specific gravity (U) [Rel density] 1.010 [employer] Other Urobilinogen (U) [Mass/Vol] 0.2 mg/dL [employer] Other Urinalysis - AUTOMATED [employer] Other Urine Cultureon 05-24-2022 Bacteria identified Cx Nom (U) [employer] Other XR hand LT min 3V*on 021 XR hand LT min 3V* [facility] [employer] Other XR hand LT min 3V* [facility] [employer] Other XR hand LT min 3V* [address] [employer] Other XR hand LT min 3V* CLAUDIA Owens [address] [employer] Other XR hand LT min 3V* XRay Report [employer] Other XR hand LT min 3V* Signed [employer] Other XR hand LT min 3V* Patient: Noble Castillo MR#: [id number] [employer] Other XR hand LT min 3V* 7804 [employer] Other XR hand LT min 3V* : 1985 Acct:[id number] [employer] Other XR hand LT min 3V* Age/Sex: 36 / F ADM Date: 10/02/21 [employer] Other XR hand LT min 3V* Loc: XDUCLY Room: Type: REG CLI [employer] Other XR hand LT min 3V* Attending Dr: Sera ALFORD [employer] Other XR hand LT min 3V* Ordering Provider: PRASHANTH Jordan [employer] Other XR hand LT min 3V* Date of Service: 10/02/21 [employer] Other XR hand LT min 3V* XR/XR hand LT min 3V*: Finger pain, left [employer] Other XR hand LT min 3V* Copies to: PRASHANTH Jordan [employer] Other XR hand LT min 3V* 3 viewsLEFT hand plain film [employer] Other XR hand LT min 3V* COMPARISON:None [facility] [employer] Other XR hand LT min 3V* HISTORY:LEFT hand injury [employer] Other XR hand LT min 3V* No fracture, dislocation or focal soft tissue abnormality seen. [employer] Other XR hand LT min 3V* XR/XR hand LT min 3V* [employer] Other XR hand LT min 3V* IMPRESSION:No acute findings [employer] Other XR hand LT min 3V* Impression dictated by: Fuad Swain M.D.10/02/2021 6:01 PM [employer] Other XR hand LT min 3V* Dictation Location: [place] [address] [employer] Other XR hand LT min 3V* Transcribed By: NUZHAT 10/02/21 1801 [employer] Other XR hand LT min 3V* Dictated By: Fuad Swain DO 10/02/21 1759 [employer] Other XR hand LT min 3V* Signed By: [employer] Other XR hand LT min 3V* 10/02/21 1801 [facility] [employer] Other Automated basophil %on 11-25 Basophils/100 WBC (Bld) 1.0 % [facility] Automated basophil counton 0 11-25-2020 Basophils (Bld) [#/Vol] 0.1 10*3/uL 0.0-0.2 [facility] Automated blood lymphocyte c ount (number/volume)on 11-25-2020 Lymphocytes (Bld) [#/Vol] 2.2 10*3/uL 1.00-4.8 [facility] Automated blood lymphocyte c ount as percentage of total leukocyteson 11-25-2020 Lymphocytes/100 WBC (Bld) 29.2 % [facility] Automated blood monocyte cou nton 11-25-2020 Monocytes (Bld) [#/Vol] 0.4 10*3/uL 0.0-0.8 [facility] Automated blood platelet cou nt (count/volume)on 11-25-2020 Platelets (Bld) [#/Vol] 247 10*3/uL 150-450 [facility] Automated blood platelet ton n volume measurementon 11-25-2020 Platelet mean volume (Bld) [Entitic vol] 8.8 fL 6.3-10.7 [facility] Automated eosinophil %on Eosinophils/100 WBC (Bld) 1.1 % [facility] Automated eosinophil counton 11-25-2020 Eosinophils (Bld) [#/Vol] 0.1 10*3/uL 0.0-0.45 [facility] Automated erythrocyte distri bution width ratioon 11-25-2020 Erythrocyte distribution width (RBC) [Ratio] 13.3 % 11.9-15.3 [facility] Automated erythrocyte mean c orpuscular hemoglobin (mass per erythrocyte)on 11-25-2020 MCH (RBC) [Entitic mass] 29.2 pg 24.7-34.3 [facility] Automated erythrocyte mean c orpuscular hemoglobin concentration measurement (mass/volon 11-25-2020 MCHC (RBC) [Mass/Vol] 33.6 g/dL 32.0-35.0 [facility] Automated erythrocyte mean c orpuscular volumeon 11-25-2020 MCV (RBC) [Entitic vol] 87.0 fL 80-100 [facility] Automated monocyte %on 11-25 Monocytes/100 WBC (Bld) 5.4 % [facility] Automated neutrophil %on Neutrophils/100 WBC (Bld) 63.3 % [facility] Blood erythrocytes automated count (number/volume)on 11-25-2020 RBC (Bld) [#/Vol] 4.64 10*6/uL 3.60-5.00 [facility] Blood hemoglobin measurement (mass/volume)on 11-25-2020 Hemoglobin (Bld) [Mass/Vol] 13.6 g/dL 11.8-15.4 [facility] Blood leukocytes automated c ount (number/volume)on 11-25-2020 WBC (Bld) [#/Vol] 7.7 10*3/uL 3.8-11.6 [facility] Blood neutrophil count by au tomated method (number/volume)on 11-25-2020 Neutrophils (Bld) [#/Vol] 4.9 10*3/uL 1.8-7.7 [facility] COVID-19 Positive/Negativeon 11-25-2020 COVID-19 Positive/Negative Negative Negative [facility] Comment on above: Testing for SARS-CoV -2 by RT-PCRThis test was developed and its performance characteristics determined by [employer] ([employer]) and validated at the [facility]. This test has not been FDA cleared [...] among non-blacks MDRD (S/P/Bld) [Vol rate/Area] mL/min/{1.73_m2} [facility] Hematocrit [Volume Fraction] of Blood by Automated counton 11-25-2020 Hematocrit (Bld) [Volume fraction] 40.4 % 34.0-46.4 [facility] Otheron 11-25-2020 Coronavirus 2019 PCR Interp N/A [facility] GFR/1.73 sq M.predicted MDRD (S/P/Bld) [Vol rate/Area] mL/min/{1.73_m2} [facility] Comment on above: GFR estimated refere nce range: According to KDOQI guidelines, <60 ml/min/1.73m2 is sufficient to diagnose a patient with chronic kidney disease. Nucleated RBC/100 WBC (Bld) [Ratio] 0.0 % 0-0.5 [facility] Pharmacy Creatinine Clearance (Chem N/A [facility] Serum or plasma calcium eleni urement (mass/volume)on 11-25-2020 Calcium [Mass/Vol] 9.3 mg/dL 8.2-10.2 [facility] Serum or plasma chloride ton surement (moles/volume)on 11-25-2020 Chloride [Moles/Vol] 104 mmol/L 95-114 [facility] Serum or plasma creatinine m easurement with calculation of estimated glomerular filtron 11-25-2020 Creatinine [Mass/Vol] 0.76 mg/dL 0.44-1.03 [facility] Serum or plasma glucose eleni urement (mass/volume)on 11-25-2020 Glucose [Mass/Vol] 96 mg/dL 70-100 [facility] Comment on above: ADA recommended refe rence rangeRandom Glucose Reference Range is dependent on time and content of last meal. Glucose of more than 200 mg/dL in a nonstressed, ambulatory subject supports the diagnosis of Diabetes Mellitus. Serum or plasma potassium me asurement (moles/volume)on 11-25-2020 Potassium [Moles/Vol] 4.1 mmol/L 3.5-5.1 [facility] Serum or plasma sodium measu rement (moles/volume)on 11-25-2020 Sodium [Moles/Vol] 138 mmol/L 136-146 [facility] Serum or plasma total carbon dioxide measurement (moles/volume)on 11-25-2020 CO2 [Moles/Vol] 24.6 mmol/L 22.0-30.0 [facility] Serum or plasma urea nitroge n measurement (mass/volume)on 11-25-2020 Urea nitrogen [Mass/Vol] 6 mg/dL 9- [facility] COVID-19 SOFIAon 10-27-2020 COVID-19 MINERVA Negative Negative [facility] Comment on above: This is a duplicate test result based off of the Minerva SARS Antigen (LIZ) test performed within the Microbiology department. Otheron 10-27-2020 SARS Antigen (LFIA) [facility] Albumin [Mass/volume] in Ser um or Plasmaon 09-12-2020 Albumin [Mass/Vol] 3.9 g/dL 3.2-5.5 [facility] Cholesterol [Mass/volume] in Serum or Plasmaon 09-12-2020 Cholesterol [Mass/Vol] 175 mg/dL 140-200 [facility] Comment on above: Chol less than 200 m g/dl low riskChol 201-239 mg/dl borderline riskChol 240 mg/dl and greater high risk Cholesterol in LDL [Mass/vol ume] in Serum or Plasma by calculationon 09-12-2020 Cholesterol in LDL [Mass/Vol] 74 mg/dL 0-100 [facility] Comment on above: LDL ATP III CLASSIFI CATIONLDL less than 100 mg/dL OptimalLDL 100-129 mg/dL Near or above optimalLDL 130-159 mg/dL Borderline highLDL 160-189 mg/dL HighLDL greater than 189 mg/dL Very high Cholesterol in VLDL [Mass/vo lume] in Serum or Plasma by calculationon 09-12-2020 Cholesterol in VLDL [Mass/Vol] 44 mg/dL [facility] Estimated glomerular filtrat ion rate (GFR) non- Americanon 09-12-2020 GFR/1.73 sq M predicted among non-blacks MDRD (S/P/Bld) [Vol rate/Area] mL/min/{1.73_m2} [facility] Metabolic Panelon 09-12-2020 Glucose [Mass/Vol] 81 mg/dL 70-100 [facility] Otheron 09-12-2020 GFR/1.73 sq M.predicted MDRD (S/P/Bld) [Vol rate/Area] mL/min/{1.73_m2} [facility] Comment on above: GFR estimated refere nce range: According to KDOQI guidelines, <60 ml/min/1.73m2 is sufficient to diagnose a patient with chronic kidney disease. Pharmacy Creatinine Clearance (Chem N/A [facility] Protein [Mass/volume] in Ser um or Plasmaon 09-12-2020 Protein [Mass/Vol] 6.5 g/dL 6.1-7.9 [facility] Serum globulin measurement b y calculation (mass/volume)on 09-12-2020 Globulin (S) [Mass/Vol] 2.6 g/dL [facility] Serum or plasma alanine rizvi otransferase measurement without P-5'-P (enzymatic activion 09-12-2020 ALT No additional P-5'-P [Catalytic activity/Vol] 22 U/L 1060 [facility] Serum or plasma albumin/glob ulin mass ratioon 09-12-2020 Albumin/Globulin [Mass ratio] 1.5 {ratio} [facility] Serum or plasma alkaline katherine sphatase measurement (enzymatic activity/volume)on 09-12-2020 ALP [Catalytic activity/Vol] 76 U/L 32-92 [facility] Serum or plasma aspartate am inotransferase measurement (enzymatic activity/volume)on 09-12-2020 AST [Catalytic activity/Vol] 18 U/L 10-42 [facility] Serum or plasma calcium eleni urement (mass/volume)on 09-12-2020 Calcium [Mass/Vol] 9.3 mg/dL 8.2-10.2 [facility] Serum or plasma chloride ton surement (moles/volume)on 09-12-2020 Chloride [Moles/Vol] 101 mmol/L 95-114 [facility] Serum or plasma creatinine m easurement with calculation of estimated glomerular filtron 09-12-2020 Creatinine [Mass/Vol] 0.67 mg/dL 0.44-1.03 [facility] Serum or plasma high density lipoprotein (HDL) cholesterol measurementon 09-12-2020 Cholesterol in HDL [Mass/Vol] 57 mg/dL 35-85 [facility] Comment on above: HDL CHOL ATP-III CLA SSIFICATION Cardiovascular RiskHDL > or equal to 60 mg/dL LOWHDL < 40 mg/dL HIGH Serum or plasma potassium me asurement (moles/volume)on 09-12-2020 Potassium [Moles/Vol] 3.9 mmol/L 3.5-5.1 [facility] Serum or plasma sodium measu rement (moles/volume)on 09-12-2020 Sodium [Moles/Vol] 136 mmol/L 136-146 [facility] Serum or plasma total biliru bin measurement (mass/volume)on 09-12-2020 Bilirubin [Mass/Vol] 0.5 mg/dL 0.3-1.2 [facility] Serum or plasma total carbon dioxide measurement (moles/volume)on 09-12-2020 CO2 [Moles/Vol] 23.4 mmol/L 22.0-30.0 [facility] Serum or plasma total choles terol/high density lipoprotein (HDL) cholesterol mass yany 09-12-2020 Cholesterol.total/Ch olesterol in HDL [Mass ratio] 3.1 {ratio} [facility] Serum or plasma urea nitroge n measurement (mass/volume)on 09-12-2020 Urea nitrogen [Mass/Vol] 7 mg/dL 07-23 [facility] Triglyceride [Mass/volume] i n Serum or Plasmaon 09-12-2020 Triglyceride [Mass/Vol] 220 mg/dL 35-149 [facility] Comment on above: TRIG ATP III CLASSIF ICATIONTRIG less than 150 mg/dL NormalTRIG 150-199 mg/dL Borderline highTRIG 200-500 mg/dL High TRIG greater than 500 mg/dL Very highStandard traceable to the Center for Disease Conrtrol and Prevention (CDC) test method. Vital Signs Date Time Vital Sign Value Performing Clinician Facility 11-22-2024 16:39-0500 Body mass index (BMI) [Ratio] 33.99 kg/m2 Chelsea Carolin PROJECT BUYER-BLACKSMITH HAMMER OPERATOR Work Phone: [facility] 11-22-2024 16:39-0500 Body weight 89.81 kg Chelsea Minerva-Nossek PROJECT BUYER-BLACKSMITH HAMMER OPERATOR Work Phone: [facility] 11-22-2024 16:39-0500 Diastolic blood pressure 80 mm[Hg] Chelsea Minerva-Idalmissek PROJECT BUYER-BLACKSMITH HAMMER OPERATOR Work Phone: [facility] 11-22-2024 16:39-0500 Heart rate 78 /min Chelsea Palma-Nossek PROJECT BUYER-BLACKSMITH HAMMER OPERATOR Work Phone: [facility] 11-22-2024 16:39-0500 Systolic blood pressure 128 mm[Hg] Chelsea Virk PROJECT BUYER-BLACKSMITH HAMMER OPERATOR Work Phone: [facility] 11-01-2024 16:30-0500 Body mass index (BMI) [Ratio] 33.99 kg/m2 Christine Helton GUARD MANAGER Work Phone: [facility] 11-01-2024 16:30-0500 Body weight 89.81 kg Christine Helton GUARD MANAGER Work Phone: [facility] 11-01-2024 16:30-0500 Diastolic blood pressure 73 mm[Hg] Christine Helton GUARD MANAGER Work Phone: [facility] 11-01-2024 16:30-0500 Heart rate 90 /min Christine Helton GUARD MANAGER Work Phone: [facility] 11-01-2024 16:30-0500 Systolic blood pressure 126 mm[Hg] Christine Helton GUARD MANAGER Work Phone: [facility] 09-19-2024 16:38-0500 Body height 172.72 cm [facility] 09-19-2024 16:38-0500 Body mass index (BMI) [Ratio] 30.2 kg/m2 [facility] 09-19-2024 16:38-0500 Body temperature 98.1 [degF] [facility] 09-19-2024 16:38-0500 Body weight 90.03 kg [facility] 09-19-2024 16:38-0500 Diastolic blood pressure 76 mm[Hg] [facility] 09-19-2024 16:38-0500 Heart rate 85 /min [facility] 09-19-2024 16:38-0500 SaO2% (BldA) [Mass fraction] 96 % [facility] 09-19-2024 16:38-0500 Systolic blood pressure 118 mm[Hg] [facility] 09-05-2024 16:28-0500 Body mass index (BMI) [Ratio] 34.16 kg/m2 Chelsea Virk PROJECT BUYER-BLACKSMITH HAMMER OPERATOR Work Phone: [facility] 09-05-2024 16:28-0500 Body weight 90.27 kg Chelsea Minerva-Nossek PROJECT BUYER-BLACKSMITH HAMMER OPERATOR Work Phone: [facility] 09-05-2024 16:28-0500 Diastolic blood pressure 72 mm[Hg] Chelsea Minerva-Nossek PROJECT BUYER-BLACKSMITH HAMMER OPERATOR Work Phone: [facility] 09-05-2024 16:28-0500 Heart rate 78 /min Chelsea Minerva-Nossek PROJECT BUYER-BLACKSMITH HAMMER OPERATOR Work Phone: [facility] 09-05-2024 16:28-0500 Systolic blood pressure 108 mm[Hg] Chelsea Minerva-Nossek PROJECT BUYER-BLACKSMITH HAMMER OPERATOR Work Phone: [facility] 08-09-2024 08:57-0400 Body mass index (BMI) [Ratio] 34.67 kg/m2 Chelsea Minerva-Nossek PROJECT BUYER-BLACKSMITH HAMMER OPERATOR Work Phone: [facility] 08-09-2024 08:57-0400 Body weight 91.63 kg Chelsea Minerva-Nossek PROJECT BUYER-BLACKSMITH HAMMER OPERATOR Work Phone: [facility] 08-09-2024 08:57-0400 Diastolic blood pressure 78 mm[Hg] Chelsea Minerva-Nossek PROJECT BUYER-BLACKSMITH HAMMER OPERATOR Work Phone: [facility] 08-09-2024 08:57-0400 Heart rate 82 /min Chelsea Minerva-Nossek PROJECT BUYER-BLACKSMITH HAMMER OPERATOR Work Phone: [facility] 08-09-2024 08:57-0400 Systolic blood pressure 100 mm[Hg] Chelsea Imnerva-Nossek PROJECT BUYER-BLACKSMITH HAMMER OPERATOR Work Phone: [facility] 07-17-2024 08:25-0400 Body height 162.6 cm Ericka Aguilar GUARD MANAGER Work Phone: [facility] 07-17-2024 08:25-0400 Body mass index (BMI) [Ratio] 35.39 kg/m2 Ericka Aguilar GUARD MANAGER Work Phone: [facility] 07-17-2024 08:25-0400 Body weight 93.53 kg Ericka Aguilar GUARD MANAGER Work Phone: [facility] 07-17-2024 08:25-0400 Diastolic blood pressure 76 mm[Hg] Ericka Aguilar GUARD MANAGER Work Phone: [facility] 07-17-2024 08:25-0400 Heart rate 85 /min Ericka Aguilar GUARD MANAGER Work Phone: [facility] 07-17-2024 08:25-0400 SaO2% (BldA) [Mass fraction] 97 % Ericka Aguilar GUARD MANAGER Work Phone: [facility] 07-17-2024 08:25-0400 Systolic blood pressure 128 mm[Hg] Ericka Aguilar GUARD MANAGER Work Phone: [facility] 04-09-2024 13:31-0400 Blood Pressure Location Lester Mcelroy [facility] 04-09-2024 13:31-0400 Diastolic blood pressure 84 mm[Hg] Jeannetted Mowaleli [facility] 04-09-2024 13:31-0400 Heart rate 61 /min Mohjolantad Navi [facility] 04-09-2024 13:31-0400 Respiratory rate 16 /min Lester Mcelroy [facility] 04-09-2024 13:31-0400 Systolic blood pressure 122 mm[Hg] Jeannetted Bertramuchli [facility] 02-26-2024 14:18-0400 Body height 172.72 cm [facility] 02-26-2024 14:18-0400 Body mass index (BMI) [Ratio] 33.1 kg/m2 [facility] 02-26-2024 14:18-0400 Body temperature 98.2 [degF] [facility] 02-26-2024 14:18-0400 Body weight 98.99 kg [facility] 02-26-2024 14:18-0400 Diastolic blood pressure 76 mm[Hg] [facility] 02-26-2024 14:18-0400 Heart rate 68 /min [facility] 02-26-2024 14:18-0400 Respiratory rate 18 /min [facility] 02-26-2024 14:18-0400 SaO2% (BldA) [Mass fraction] 98 % [facility] 02-26-2024 14:18-0400 Systolic blood pressure 120 mm[Hg] [facility] 10-17-2023 16:30-0500 Body height 162.56 cm Ml Chisholm Other [facility] Other 10-17-2023 16:30-0500 Body mass index (BMI) [Ratio] 34.67 kg/m2 Ml Chisholm Other [facility] [employer] Other 10-17-2023 16:30-0500 Body weight 91.63 kg Ml Chisholm Other [facility] Other 10-17-2023 16:30-0500 Diastolic blood pressure 71 mm[Hg] Ml Chisholm Other [employer] [employer] Other 10-17-2023 16:30-0500 Respiratory rate 18 /min Ml Chisholm Other [facility] [employer] Other 10-17-2023 16:30-0500 SaO2% (BldA) [Mass fraction] 96 % Ml Chisholm Other [facility] [employer] Other 10-17-2023 16:30-0500 Systolic blood pressure 112 mm[Hg] Ml Chishlom Other [facility] Other 08-10-2023 11:55-0400 Body height 162.56 cm Sera Lares Other [employer] [employer] Other 08-10-2023 11:55-0400 Body mass index (BMI) [Ratio] 37.24 kg/m2 Sera Lares Other [facility] Other 08-10-2023 11:55-0400 Body temperature 97.7 [degF] Sera Lares Other [facility] Other 08-10-2023 11:55-0400 Body weight 98.43 kg Sera Lares Other [facility] Other 08-10-2023 11:55-0400 Respiratory rate 18 /min Sera Lares Other [facility] Other 08-10-2023 11:55-0400 SaO2% (BldA) [Mass fraction] 98 % Sera Lares Other [facility] Other 09-08-2022 10:30-0500 Body height 162.56 cm Marleni Missler Other [facility] Other 09-08-2022 10:30-0500 Body mass index (BMI) [Ratio] 34.93 kg/m2 Marleni Missler Other [facility] Other 09-08-2022 10:30-0500 Body weight 92.31 kg Marleni Missler Other [facility] Other 09-08-2022 10:30-0500 Diastolic blood pressure 77 mm[Hg] Marleni Missler Other [facility] [employer] Other 09-08-2022 10:30-0500 Respiratory rate 18 /min Marleni Missler Other [facility] [employer] Other 09-08-2022 10:30-0500 SaO2% (BldA) [Mass fraction] 96 % Marleni Missler Other [facility] Other 09-08-2022 10:30-0500 Systolic blood pressure 117 mm[Hg] Marleni Missler Other [facility] Other 09-02-2022 15:00-0400 Body height 162.56 cm Ame Patelault Other [employer] [employer] Other 09-02-2022 15:00-0400 Body mass index (BMI) [Ratio] 34.5 kg/m2 Ame Patelault Other [facility] Other 09-02-2022 15:00-0400 Body temperature 98.6 [degF] Ame Nik Other [facility] Other 09-02-2022 15:00-0400 Body weight 91.17 kg Ame Nik Other [facility] Other 09-02-2022 15:00-0400 Diastolic blood pressure 82 mm[Hg] Ame Nik Other [facility] Other 09-02-2022 15:00-0400 Respiratory rate 18 /min Ame Zaragoza Other [facility] Other 09-02-2022 15:00-0400 SaO2% (BldA) [Mass fraction] 86 % Ame Zaragoza Other [facility] Other 09-02-2022 15:00-0400 Systolic blood pressure 129 mm[Hg] Ame Zaragoza Other [facility] Other 07-10-2022 12:10-0400 Body height 162.56 cm Ame Zaragoza Other [facility] Other 07-10-2022 12:10-0400 Body mass index (BMI) [Ratio] 33.91 kg/m2 Ame Zaragoza Other [facility] Other 07-10-2022 12:10-0400 Body temperature 98.6 [degF] Ame Zaragoza Other [facility] Other 07-10-2022 12:10-0400 Body weight 89.63 kg Ame Zaragoza Other [facility] Other 07-10-2022 12:10-0400 Diastolic blood pressure 81 mm[Hg] Ame Zaragoza Other [facility] Other 07-10-2022 12:10-0400 Respiratory rate 18 /min Ame Zaragoza Other [facility] Other 07-10-2022 12:10-0400 SaO2% (BldA) [Mass fraction] 98 % Ame Zaragoza Other [facility] Other 07-10-2022 12:10-0400 Systolic blood pressure 132 mm[Hg] Ame Zaragoza Other [facility] Other 05-24-2022 17:00-0400 Body height 162.56 cm Ame Zaragoza Other [facility] Other 05-24-2022 17:00-0400 Body mass index (BMI) [Ratio] 34.67 kg/m2 Ame Zaragoza Other [facility] Other 05-24-2022 17:00-0400 Body temperature 98 [degF] Ame Zaragoza Other [facility] Other 05-24-2022 17:00-0400 Body weight 91.63 kg Ame Zaragoza Other [facility] Other 05-24-2022 17:00-0400 Diastolic blood pressure 70 mm[Hg] Ame Zaragoza Other [facility] Other 05-24-2022 17:00-0400 Respiratory rate 18 /min Ame Zaragoza Other [facility] Other 05-24-2022 17:00-0400 SaO2% (BldA) [Mass fraction] 99 % Ame Zaragoza Other [facility] Other 05-24-2022 17:00-0400 Systolic blood pressure 122 mm[Hg] Ame Patelault Other [facility] Other 10-02-2021 18:20-0500 Body height 162.56 cm Sera Lares Other [facility] Other 10-02-2021 18:20-0500 Body mass index (BMI) [Ratio] 35.01 kg/m2 Serasheila Lares Other [facility] Other 10-02-2021 18:20-0500 Body temperature 98.2 [degF] Sera Smallwoodmond Other [facility] Other 10-02-2021 18:20-0500 Body weight 92.53 kg Sera Luda Other [facility] Other 10-02-2021 18:20-0500 Diastolic blood pressure 81 mm[Hg] Sera Smallwoodmond Other [facility] Other 10-02-2021 18:20-0500 Respiratory rate 18 /min Sera Smallwoodmond Other [facility] Other 10-02-2021 18:20-0500 SaO2% (BldA) [Mass fraction] 99 % Sera Smallwoodmond Other [facility] Other 10-02-2021 18:20-0500 Systolic blood pressure 118 mm[Hg] Sera Smallwoodmond Other [facility] Other 08-22-2021 15:15-0400 Body height 162.56 cm Christiana Ginty Other [facility] Other 08-22-2021 15:15-0400 Body mass index (BMI) [Ratio] 34.33 kg/m2 Christiana Ginty Other [facility] Other 08-22-2021 15:15-0400 Body weight 90.72 kg Christiana Ginty Other [facility] Other Encounters Encounter Date Encounter Type Care Provider Facility Start: 11-22-2024 End: 11-22-2024 ambulatory CHELSEA Ribeiro CAROLIN Not Available Start: 11-22-2024 End: 11-22-2024 Office outpatient visit 25 minutes Chelsea Ribeiro MinervaLv PROJECT BUYER-BLACKSMITH HAMMER OPERATOR Work Phone: [facility] Comment on above: Bipolar II disorder, most recent episode major depressive (CMS/HCC); Insomnia, unspecified type; Generalized anxiety disorder (CMS/HCC) Start: 11-06-2024 End: 11-06-2024 Refill Chelsea Ribeiro Minerva-Nossek PROJECT BUYER-BLACKSMITH HAMMER OPERATOR Work Phone: [facility] Comment on above: Bipolar II disorder, most recent episode major depressive (CMS/HCC) Start: 11-01-2024 End: 11-01-2024 ambulatory CHRISTINE HELTON Not Available Start: 11-01-2024 End: 11-01-2024 Office outpatient visit 25 minutes Christine Helton GUARD MANAGER Work Phone: [facility] Comment on above: Chronic migraine wit hout aura without status migrainosus, not intractable (CMS/HCC) (Primary Dx); Tremor Start: 11-01-2024 End: 11-01-2024 Bamboo flowsheet Christine Helton GUARD MANAGER Work Phone: [facility] [address] Start: 11-01-2024 End: 11-01-2024 Bamboo flowsheet Christine Helton GUARD MANAGER Work Phone: [facility] [address] Start: 09-19-2024 End: 09-19-2024 ambulatory [facility] Work Phone: Start: 09-19-2024 End: 09-19-2024 Patient encounter procedure [facility] Work Phone: Start: 09-05-2024 End: 09-05-2024 ambulatory CHELSEA Ribeiro PARTHNOSSEK Not Available Start: 09-05-2024 End: 09-05-2024 Office outpatient visit 15 minutes Chelsea Ribeiro Minerva-Nossek PROJECT BUYER-BLACKSMITH HAMMER OPERATOR Work Phone: [facility] Comment on above: Bipolar II disorder, most recent episode major depressive (CMS/HCC); Insomnia, unspecified type Start: 09-05-2024 End: 09-05-2024 Bamboo flowsheet Chelsea Ribeiro Minerva-Nossek PROJECT BUYER-BLACKSMITH HAMMER OPERATOR Work Phone: [facility] Start: 09-05-2024 End: 09-05-2024 Bamboo flowsheet Chelsea Ribeiro Minerva-Nossek PROJECT BUYER-BLACKSMITH HAMMER OPERATOR Work Phone: [facility] Start: 08-09-2024 End: 08-09-2024 Bamboo flowsheet Chelsea Ribeiro Minerva-Nossek PROJECT BUYER-BLACKSMITH HAMMER OPERATOR Work Phone: [facility] Start: 08-09-2024 End: 08-09-2024 Bamboo flowsheet Chelsea Ribeiro Minerva-Nossek PROJECT BUYER-BLACKSMITH HAMMER OPERATOR Work Phone: [facility] Start: 08-09-2024 End: 08-09-2024 Office outpatient visit 25 minutes Chelsea Ribeiro Minerva-Nossek PROJECT BUYER-BLACKSMITH HAMMER OPERATOR Work Phone: [facility] Comment on above: Bipolar II disorder, most recent episode major depressive (CMS/HCC); Generalized anxiety disorder (CMS/HCC) Start: 08-09-2024 End: 08-09-2024 ambulatory CHELSEA Ribeiro MINERVA-NOSSEK Not Available Start: 07-17-2024 End: 07-17-2024 Bamboo flowsheet Ericka Jeff GUARD MANAGER Work Phone: [facility] [address] Start: 07-17-2024 End: 07-17-2024 Bamboo flowsheet Ericka Jeff GUARD MANAGER Work Phone: [facility] [address] Start: 07-17-2024 End: 07-17-2024 Telephone encounter Ericka Aguilar GUARD MANAGER Work Phone: [facility] Start: 07-17-2024 End: 07-17-2024 Office outpatient visit 25 minutes Ericka Aguilar GUARD MANAGER Work Phone: [facility] Comment on above: Chronic migraine wit hout aura without status migrainosus, not intractable (CMS/HCC) (Primary Dx); Tremor Start: 07-17-2024 End: 07-17-2024 ambulatory ERICKA AGUILAR Not Available Start: 07-13-2024 End: 07-13-2024 ambulatory ISAAK BERGER Not Available Start: 07-13-2024 End: 07-13-2024 Bamboo flowsheet Isaak Berger [employer] [facility] Start: 07-13-2024 End: 07-13-2024 Bamboo flowsheet Isaak Berger [employer] [facility] Start: 07-04-2024 End: 07-04-2024 Bamboo flowsheet Isaak Berger [employer] [facility] Start: 07-04-2024 End: 07-04-2024 Bamboo flowsheet Isaak Berger [employer] [facility] Start: 07-04-2024 End: 07-04-2024 ambulatory ISAAK BERGER Not Available Start: 06-13-2024 End: 06-13-2024 ambulatory ISAAK BERGER Not Available Start: 06-04-2024 End: 06-04-2024 ambulatory CHELSEA M MINERVA-NOSSEK Not Available Start: 05-23-2024 End: 05-23-2024 ambulatory ISAAK BERGER Not Available Start: 05-16-2024 End: 05-16-2024 ambulatory ISAAK BERGER Not Available Start: 05-11-2024 End: 05-11-2024 ambulatory ISAAK BERGER Not Available Start: 04-25-2024 End: 04-25-2024 ambulatory CHELSEA M MINERVA-NOSSEK Not Available Start: 04-11-2024 End: 04-11-2024 ambulatory Lester Mcelroy Facility:[facility] Start: 04-11-2024 End: 04-11-2024 Lab Drop off Lester Mcelroy [facility] Start: 04-09-2024 End: 04-09-2024 ambulatory Lester Mcelroy Facility:[facility] Start: 04-09-2024 End: 04-09-2024 Patient encounter procedure Lester Mcelroy [facility] Start: 04-09-2024 End: 04-09-2024 ambulatory Lester Mcelroy Facility:[facility] Start: 04-09-2024 End: 04-09-2024 Patient encounter procedure Lester Mcelroy [facility] Start: 03-15-2024 End: 03-15-2024 ambulatory LUIS EDUARDO SERRATO Not Available Start: 02-26-2024 End: 02-26-2024 ambulatory CALL OUT OPERATOR-C Ame [facility] Work Phone: Start: 02-26-2024 End: 02-26-2024 Patient encounter procedure CALL OUT OPERATOR-C Ame [facility] Work Phone: Start: 02-23-2024 End: 02-23-2024 ambulatory CHELSEA Quintin MINERVA-NOSSEK Not Available Start: 01-26-2024 End: 01-26-2024 ambulatory CHELSEA M MINERVA-NOSSEK Not Available Start: 12-08-2023 End: 12-08-2023 ambulatory Ame Zaragoza Facility:[facility] Start: 12-08-2023 End: 12-08-2023 ambulatory CALL OUT OPERATOR-C Ame [facility] Work Phone: Start: 12-08-2023 End: 12-08-2023 Departed Referred CALL OUT OPERATOR-C Ame [facility] Start: 10-17-2023 End: 10-17-2023 ambulatory Ml Chisholm Other [employer] Other Start: 10-17-2023 Office outpatient vi sit 15 minutes Ml Chisholm [facility] Start: 10-17-2023 End: 10-17-2023 Patient encounter procedure CALL OUT OPERATOR-C Ame [facility] Work Phone: Start: 08-10-2023 End: 08-10-2023 ambulatory Sera Lares Other [employer] Other Start: 08-10-2023 Office outpatient vi sit 15 minutes Sera Smallwoodmond [facility] Start: 04-16-2023 End: 04-17-2023 ambulatory Ame Nik Facility:[facility] Start: 02-02-2023 End: 02-03-2023 ambulatory AME ZARAGOZA Facility: Start: 01-26-2023 ambulatory AME NIK Facil ity:[facility] Start: 01-17-2023 End: 01-17-2023 Lab Drop off AME Riley NIK [facility] Start: 12-16-2022 End: 12-16-2022 ambulatory Cong Cobian Facility:[facility] Start: 10-31-2022 End: 10-31-2022 ambulatory PHYSICIAN NO [facility] Work Phone: Start: 10-31-2022 End: 10-31-2022 Patient encounter procedure PHYSICIAN NO [facility]-Self Pay Exercise Program Start: 10-23-2022 End: 10-23-2022 ambulatory FARHEEN CAMACHO . Facility:[facility] Start: 10-13-2022 End: 10-13-2022 Patient encounter procedure PHYSICIAN NO [facility]-MRI [facility] [place] Work Phone: Start: 10-13-2022 Registered Recurring PHYSICIAN NO [facility]Weight [facility] Work Phone: Start: 10-12-2022 End: 10-12-2022 ambulatory PHYSICIAN NO [facility] Work Phone: Start: 10-12-2022 End: 10-12-2022 Patient encounter procedure PHYSICIAN NO [facility] [place] Start: 10-11-2022 Registered Recurring PHYSICIAN AMBIKA GODDARD [facility]-Weight Management Start: 10-11-2022 End: 10-11-2022 ambulatory Marleni Jordan Other [employer] Other Start: 10-11-2022 Telephone encounter [facility]i [facility] Start: 09-29-2022 End: 09-29-2022 ambulatory Abhi Finney Facility:[facility] Start: 09-15-2022 End: 09-16-[address] DOCTOR LANDEROS Facility: Start: 09-08-2022 End: 09-08-2022 ambulatory Marleni Jordan Other [employer] Other Start: 09-08-2022 Nutrition therapy Marleni Jordan [facility] Start: 09-02-2022 End: 09-02-2022 ambulatory Ame Zaragoza Other [employer] Other Start: 09-02-2022 Office outpatient vi sit 15 minutes Ame Zaragoza [facility] Start: 08-02-2022 End: 08-02-2022 ambulatory Debra Celestin Other [employer] Other Start: 08-02-2022 Telephone encounter Debra Celestin [facility] Start: 07-14-2022 End: 07-14-2022 ambulatory Ame Zaragoza Facility:[facility] Start: 07-10-2022 End: 07-10-2022 ambulatory Ame Zaragoza Other [employer] Other Start: 07-10-2022 Office outpatient vi sit 15 minutes Ame Zaragoza [facility] Start: 07-07-2022 End: 07-08-[address] CONOR BEAL Facility:[facility] Start: 06-26-2022 End: 06-26-2022 ambulatory Ame Patelault Other [employer] Other Start: 06-26-2022 Telephone encounter Ame Breaul t [facility] [place] Start: 05-24-2022 End: 05-24-2022 Departed Referred CALL OUT OPERATOR-C Ame Nik Work Phone: [facility] [place] Start: 05-24-2022 End: 05-24-2022 ambulatory Ame Nik Other [employer] Other Start: 05-24-2022 Office outpatient vi sit 15 minutes Ame Nik [facility] Start: 05-19-2022 End: 05-19-2022 ambulatory Ame Nik Other [employer] Other Start: 05-19-2022 Telephone encounter Ame Breaul t [facility] Start: 05-11-2022 ambulatory BRITNISHREE GRANT Facilit y:[facility] Start: 12-11-2021 End: 12-11-2021 ambulatory Ame Patelault Other [employer] Other Start: 12-11-2021 Telephone encounter Ame Breaul t [facility] Start: 10-02-2021 End: 10-02-2021 ambulatory Sera Lares Other [employer] Other Start: 10-02-2021 Office outpatient vi sit 15 minutes Sera Luda [facility] Start: 08-22-2021 End: 08-22-2021 ambulatory Christiana Zuñigay Other [employer] Other Start: 08-22-2021 Office outpatient vi sit 15 minutes Christiana Ginty [facility] Start: 11-25-2020 End: 11-25-2020 Patient encounter procedure Kit Reyes ([facility]) -Pre-Surgical Testing Start: 10-27-2020 End: 10-27-2020 Patient encounter procedure Kit Reyes ([facility]) -[place] COVID Testing Start: 09-12-2020 End: 09-12-2020 Departed Referred Kit Reyes ([facility]) -Corporate Health RT 250 Procedures Date Procedure Procedure Detail Performing Clinician Start: 07-13-2024 End: 07-13-2024 Family psychotherapy w/o patient present 50 mins Marital/partner relational problem Isaak Berger [employer] Comment on above: Marital/partner rela tional problem; Bipolar II disorder, most recent episode major depressive (CMS/HCC); Generalized anxiety disorder (CMS/HCC) Start: 07-04-2024 End: 07-04-2024 Psychotherapy w/patient 60 minutes Marital/partner relational problem Isaak Berger [employer] Comment on above: Marital/partner rela tional problem; Bipolar II disorder, most recent episode major depressive (CMS/HCC) Start: 12-01-2023 ft (qualifier value) Mo armen Mcelroy Comment on above: flat foot Start: 10-13-2022 MRI of head PHYSICIAN NO FAMILY Start: 10-27-2020 SARS Antigen (LFIA) Nirmal sydney Reyes ([facility]) Cholecystectomy AME HI Dilation and curettage NAA ZARAGOZA History of cholecystectomy S/P cholecystectomy Lester Mcelroy Nasal sinus structur e (body structure) AME ZARAGOZA Tonsillectomy AME LEE Urine culture CALL OUT OPERATOR-C Sil Zaragoza Work Phone: wisdom teeth AME WARNER LT Plan of Treatment Date Care Activity Detail Author Start: 01-03-2025 End: 01-03-2025 Patient encounter procedure [facility] [place] [facility] Start: 12-13-2024 End: 12-13-2024 Patient encounter procedure 12/13/2024 4:30 PM EST Office Visit [facility] [address] [place] [address] Chelsea Virk, PROJECT BUYER-BLACKSMITH HAMMER OPERATOR [address] [place] [address] [facility] Start: 12-04-2024 End: 12-04-2024 Patient encounter procedure 12/04/2024 3:00 PM EST Office Visit [facility] [address] [place] [id number] Yue Perez PA [address] [place] [address] [facility] Start: 11-22-2024 End: 11-22-2024 Telemedicine consultation with patient 11/22/2024 3:30 PM EST Telemedicine [facility] [address] [place] [address] Chelsea Virk, PROJECT BUYER-BLACKSMITH HAMMER OPERATOR [address] [place] [address] [facility] Start: 11-06-2024 End: 11-06-2024 Patient encounter procedure 11/06/2024 4:30 PM EST Office Visit [facility] [address] [place] [address] Chelsea Virk, PROJECT BUYER-BLACKSMITH HAMMER OPERATOR [address] [place] [address] [facility] Start: 09-12-2024 End: 09-12-2024 Patient encounter procedure 09/12/2024 8:40 AM EST Office Visit [facility] [place] [address] [place] [phone] Ericka Aguilar, GUARD MANAGER [address] [place] [address] [facility] [place] [address] Start: 09-05-2024 End: 09-05-2024 Patient encounter procedure 09/05/2024 4:00 PM EST Office Visit [facility] [address] [place] [address] Minerva-Chelsea Vogel M, PROJECT BUYER-BLACKSMITH HAMMER OPERATOR [address] [place] [address] [facility] Start: 08-09-2024 End: 08-09-2024 Patient encounter procedure 08/09/2024 9:00 AM EDT Office Visit [facility] [address] [place] [address] Minerva-Chelsea Vogel M, PROJECT BUYER-BLACKSMITH HAMMER OPERATOR [address] [place] [address] Arrived [facility] Comment on above: Arrived Start: 08-01-2024 End: 08-01-2024 Patient encounter procedure 08/01/2024 9:00 AM EDT Office Visit [facility] [address] [place] [address] Chelsea Virk, PROJECT BUYER-BLACKSMITH HAMMER OPERATOR [address] [place] [address] [facility] Start: 07-17-2024 End: 07-17-2024 Patient encounter procedure [facility] [place] [address] [facility] Comment on above: Chronic migraine wit hout aura without status migrainosus, not intractable (CMS/HCC) (Primary Dx); Tremor Start: 07-13-2024 End: 07-13-2024 Social Work [facility] Comment on above: Arrived Start: 07-11-2024 End: 07-11-2024 Patient encounter procedure 07/11/2024 9:00 AM EDT Office Visit [facility] [place] [address] [place] [address] Ericka Aguilar, GUARD MANAGER [address] [place] [address] [facility] [place] [address] [facility] Start: 07-04-2024 End: 07-04-2024 Social Work 07/04/2024 8:00 AM EDT Social Work [facility] [address] [place] [address] Isaak Berger LSW Arrived [facility] Comment on above: Arrived Start: 07-01-2024 Influenza vaccination Influenza Vacc ine (#1) [facility] Immunizations Immunization Date Immunization Notes Care Provider Fa cili 08-04-2022 influenza virus vaccine, unspecified formulation Mohamad Mouchli [facility] 07-13-2022 SARS-CoV-2 (COVID-19 ) mRNA-1273 vaccine Mohamad Mouchli [facility] 11-22-2021 COVID-19 Vaccine Moderna - Documentation Purposes Only Ame Zaragoza Other [facility] 08-13-2020 influenza virus vaccine, unspecified formulation Mohamad Mouchli [facility] 08-07-2020 influenza virus vaccine, unspecified formulation Mohamad Mouchli [facility] 08-09-2019 hepatitis B vaccine, adult dosage Mohamad Mouchli [facility] 08-05-2019 influenza virus vaccine, unspecified formulation Mohamad Mouchli [facility] 03-15-2019 hepatitis B vaccine, adult dosage Mohamad Mouchli [facility] 03-15-2019 varicella virus vaccine Moha mad Mouchli [facility] 02-08-2019 hepatitis B vaccine, adult dosage Mohamad Mouchli [facility] 02-08-2019 tetanus toxoid, redu emmett diphtheria toxoid, and acellular pertussis vaccine, adsorbed Lester Mcelroy [facility] 02-08-2019 varicella virus vaccine Leo Mcelroy [facility] 01-07-2019 influenza virus vaccine, unspecified formulation Lester Mcelroy [facility] Payers Date Payer Category Payer Unknown 2022 Self-pay [id number] 2021 Managed Care HMO (unspecified) [id number] 1986 Unknown [id number] 2.16.84 0.1.458189.3.579.2.593 1986 Unknown [id number] 2.16.84 0.1.714914.3.579.2.593 1986 Unknown [id number] 2.16.84 0.1.816931.3.579.2.593 1986 Unknown [id number] 2.16.84 0.1.711381.3.579.2.593 1986 Unknown [id number] 2.16.84 0.1.700237.3.579.2.593 1986 Unknown [id number] 2.16.84 0.1.145953.3.579.2.593 1986 Unknown [id number] 2.16.84 0.1.728103.3.579.2.593 1986 Unknown [id number] 2.16.840.1.229734.3.579.2.718 1986 Unknown [id number] 2.16.84 0.1.254815.3.579.2.718 1986 Unknown [id number] 2.16.840.1.317127.3.579.2. 1986 Unknown [id number] 2.16.840.1.074535.3.579.2. 1986 Unknown [id number] 2.16.840.1.918248.3.579.2. 1986 Unknown [id number] 2.16.840.1.586349.3.579.2.1258 1986 Unknown [id number] 2.16.840.1.123254.3.579.2.1258 1986 Unknown [id number] 2.16840.1.234748.3.579.2.1258 1986 Unknown [id number] 2.840.1.771569.3.579.2.1258 1986 Unknown [id number] 2.16.840.1.888550.3.579.2.1258 1986 Unknown [id number] 2.16840.1.342768.3.579.2.1258 1986 Unknown [id number] 2.16840.1.625919.3.579.2.1258 1986 Unknown [id number] 2.840.1.268548.3.579.2.1258 1986 Unknown [id number] 2.16.840.1.174549.3.579.2.1258 1986 Unknown [id number] 2.16.840.1.179833.3.579.2.1258 1986 Unknown [id number] 2.16840.1.526953.3.579.2.1258 1986 Unknown [id number] 2.16.840.1.391829.3.579.2.1258 1986 Unknown [id number] 2.16.840.1.255998.3.579.2.1259 1986 Unknown [id number] 2.16.840.1.565036.3.579.2.1259 1986 Unknown [id number] 2.16.840.1.163997.3.579.2.1259 1986 Unknown [id number] 2.16.840.1.324673.3.579.2.1259 1959 Private Health Insurance [id number] Private Health Insurance [id number] 2.16.840.1.051750.19 Unknown [id number] Unknown [id number] Unknown [id number] Social History Date Type Detail Facility Start: 11-25-2020 End: 03-22-2023 Tobacco smoking status NHIS Never smoked tobacco (finding) [facility] Start: 1985 [facility]igned At [facility] Start: 07-17-2024 End: 11-22-2024 Sex Assigned At [facility] Tobacco smoking status Never [facility] Start: 03-22-2023 Tobacco use and exposure Smokeless tobacco non-user [facility] Start: 07-17-2024 End: 11-22-2024 Alcoholic beverage intake Lifetime non-drinker (finding) [facility] Start: 07-17-2024 End: 11-22-2024 History of Social function [facility] Start: 03-19-2023 Education 21 [facility] Start: 03-19-2023 Alcohol Comment caffeine intak e: 1-2 cups per day [facility] Start: 1985 Sex assigned at Not on file [facility] Start: 09-19-2024 Sex Female (finding) [facility] Medical Equipment Procedure Code Equipment Code Equipment Origin al Text Equipment Identifier Dates Test Strips as directed Start: 09-02-2022 Goals Date Patient Goal Desired Activity /State Functional Status Date Assessment Result Facility 04-09-2024 Functional Status N/A [facility] Clinical Notes 08-22-2021 to 11-22-2024 Chelsea Virk, PROJECT BUYER-BLACKSMITH HAMMER OPERATOR - 11/22/2024 4:30 PM ESTTelephone Encounter - Danyelle Yajaira - 11/06/2024 3:35 PM ESTTelephone Encounter - Danyelle Yajaira - 11/06/2024 3:35 PM ESTPatient Instructions Note Date & Type Note Facility 11-22-2024 History of Presen t illness Narrative Images from the original note were not included. Noble Castillo is a 39 y.o. female presents for Medication Management. HPI: Patient is here for medication follow up Patient has decompensated since last appt. Mood is reported as depressed. Cycles of Sad Happy - sad and irritable. Anxiety 4 (10worst). Had two nights of no sleep and now sleeping to much. Medication compliant. Side effects from vraylar no longer since lowered. Now on lower dose but mood has deteriorated. No longer night sweats, no longer gagging and puking. No neruological sx tremors Denies abuse of substances. Medical problems since last visit. has to have a foot surgery. Denies Psychosocial stressors . SUBJECTIVE: PAST MEDICAL HISTORY: Past Medical [...] Drug use: Never Depression: Not at risk (09/05/2024) PHQ-2 PHQ-2 Score: 0 REVIEW OF SYMPTOMS - MENTAL STATUS EXAM Appearance Appearance: Casual dress, normal grooming and hygiene Attitude Attitude: Cooperative, conversant, engaged, and with good eye contact. Behavior Cooperative, conversant, engaged, and with good eye contact. Speech Normal, clear, regular rate, rhythm and volume Affect Sad/tearful Mood Depressed Thought Process Organized and Clear Thought Content No Suicidal Ideation and No Homicidal ideation Perception No perceptual abnormalities noted Orientation Appropriate to age, Person, Place, and Time Memory/Concentration Short term intact and senior living intact Insight/Judgement Good OBJECTIVE: Visit Vitals OB [...] -no tremors will leave at current dose -now depression. Would like to go off vraylar - take every other day for 4 days. Then start Change to caplyta - 2 weeks 10.5 1 week of 21mg Trazodone 100mg po at bedtime prn Lamictal 150 daily Sertraline 150mg po daily -encouraged to eat with med Vistaril 50mg po q8 hrs Has been on latuda -sedating, Patient was seen Face to Face, Reviewed chart documents and documentation, Visit time : 32 min Follow up 3 weeks assess effectiveness of caplyta documented in this encounter [facility] 11-06-2024 Telephone encounter Note Patient left a voicemail needing a refill on Vraylar 1.5 mg sent to [facility] pharmacy. Patient has a follow up on 11/22. [facility] 11-06-2024 Miscellaneous Notes Patient left a voicemail needing a refill on Vraylar 1.5 mg sent to [facility] pharmacy. Patient has a follow up on 11/22. documented in this encounter [facility] 11-01-2024 History of Presen t illness Narrative [...] wrist extensors , wrist flexor , and hardwood faller strength 5/5. LUE strength deltoid , biceps , triceps , wrist extensors , wrist flexor , and hardwood faller strength 5/5. RLE strength iliopsoas, quadriceps, tibialis [...] Knee reflex 1+. Price's sign negative. Coordination: Zookpr-dy-ytkk testing normal. Rapid alternating movements are normal. [...] and return instructions documented in this encounter [facility] 09-05-2024 History of Presen t illness Narrative [...] used to new job. Working in [employer] . SUBJECTIVE: PAST MEDICAL HISTORY: Past Medical [...] and Time Memory/Concentration Short term intact and termite treater helper intact Insight/Judgement Good OBJECTIVE: Visit Vitals OB [...] F/U 2 months documented in this encounter [facility] 08-09-2024 History of Presen t illness Narrative [...] and Time Memory/Concentration Short term intact and senior living intact Insight/Judgement Good OBJECTIVE: Visit Vitals BP [...] F/U- 4 weeks documented in this encounter [facility] 07-17-2024 Telephone encounter Note Acknowledged, thank you. [facility] 07-17-2024 Miscellaneous Notes Acknowledged, thank you. Yes, it is in media under ED Report 06 15 24 Are you able to request records from the patient's emergency department visits at [facility] for me to review please? documented in this encounter [facility] 07-17-2024 Telephone encounter Note Yes, it is in media under ED Report 06 15 24 [facility] 07-17-2024 Telephone encounter Note Are you able to request records from the patient's emergency department visits at [facility] for me to review please? [facility] 07-17-2024 History of Presen t illness Narrative [...] minutes of use. She has also tried tkvo-lje-nkfxdzc medications and essential oils for her symptoms with minimal relief. The patient has been to [facility] ([facility]) Emergency Department 3 times within the past year for migraines which were not relieved by rizatriptan. She states [facility] did not complete imaging at any of [...] a day. She follows with psychiatry in [place], [place]. She states her psychiatrist attempted to [...] MG EC tablet; Generic drug: pantoprazole rizatriptan AIR BRAKES INSPECTOR 10 MG disintegrating tablet; Commonly known as: Maxalt-AIR BRAKES INSPECTOR semaglutide 2 MG/1.5ML solution pen-injector; Commonly known [...] wrist extensors , wrist flexor , and hardwood faller strength 5/5. LUE strength deltoid , biceps , triceps , wrist extensors , wrist flexor , and hardwood faller strength 5/5. RLE strength iliopsoas, quadriceps, tibialis [...] reflex 1+. LLE Knee reflex 1+. Coordination: Qlyofg-vn-xiux testing normal. Rapid alternating movements are normal. [...] new or worsening symptoms. Ericka Aguilar NP [facility] Advanced Neurology documented in this encounter [facility] 07-17-2024 Instructions Ericka Aguilar NP - 07/17/2024 8:20 AM EDT - Start Ajovy 225 mg subcutaneous once every 30 days for migraine prevention documented in this encounter [facility] 04-11-2024 Evaluation + Plan note Diagnostic Tests PendingCalprotectin, Fecal 04/11/24Enteric Panel by PCR 04/11/24O & P Exam, Routine 04/11/24Pancreatic Elastase, Fecal 04/11/24 [facility] 04-09-2024 Evaluation + Plan note Future Scheduled TestsPancreatic Elastase, Fecal 04/09/24Calprotectin, Fecal 04/09/24O & P Exam, Routine 04/09/24Clostridium Difficile PCR 04/09/24Enteric Panel by PCR 04/09/24 [facility] 04-09-2024 Evaluation + Plan note Diagnostic Tests PendingCeliac Disease Comprehensive 04/09/24 Future Scheduled TestsPancreatic Elastase, Fecal 04/09/24Calprotectin, Fecal 04/09/24O & P Exam, Routine 04/09/24Clostridium Difficile PCR 04/09/24Enteric Panel by PCR 04/09/24 [facility] 10-17-2023 Evaluation note Encounter Date [...] while sleeping. questions and concerns were addressed [employer] Other 10-11-2023 Evaluation note* Encounter Date Diagnosis [...] no improvement in 2 to 3 days [facility] [employer] Other 03-20-2023 Evaluation + Plan note Diagnostic Tests Pending * FSH and LH 01/17/23 [facility]02-16-2023 NotePatient Education Materials Follows: Otitis [...] Follow these instructions at home: ? Take lxog-pfr-dfvdpgd and prescription medicines only as told by [...] provider. Document Revised: 01/25/2022 Document Reviewed: 01/25/2022 [employer] Patient Education ? 2021 [id number] Note Patient Education Materials [facility] Evaluation note * Encounter Date Diagnosis Assessment [...] medication before and did have stomach upset [employer] Other 11-03-2022 Evaluation note* Encounter Date Diagnosis Assessment Notes Treatment Notes Treatment Clinical Notes Aug, Dizziness (ICD-10 - R42) Aug, History of reactive hypoglycemia (ICD-10 - Z86.39) Start with keeping journal of symptoms. Take blood sugars when you experience symptoms. [employer] [employer] Other 09-10-2022 Evaluation note* Encounter Date Diagnosis Assessment Notes Treatment Notes Treatment Clinical Notes Jul, Intractable migraine without aura and without status migrainosus (ICD-10 - G43.019) Take medication as directed. Stay away from known triggers. Follow up with primary care provider or neurology if symptoms persist. Phenergan and Toradol Im given in office. Explained medication will cause drowsiness. [employer] Other 08-27-2022 Evaluation note* Encounter Date Diagnosis Assessment Notes Treatment Notes Treatment Clinical Notes May, Migraine aura without headache (ICD-10 - G43.109) [employer] Other 07-25-2022 Evaluation note* Encounter Date Diagnosis [...] (ICD-10 - G43.109) Continue medication as needed [employer] [employer] Other 12-03-2021 Evaluation note* Encounter Date Diagnosis [...] no improvement in 5 to 7 days [employer] [employer] Other 10-23-2021 Evaluation note* Encounter Date Diagnosis [...] writting by [facility] Care At Home document [place] [employer] Other Evaluation noteNo InformationNortEdge[facility] [employer] Other Evaluation noteNo assessment information available [facility] Work Phone: Evaluation note* Diagnosis Bipolar II [...] (CMS/HCC) Other bipolar disorders Insomnia, unspecified type Generalized anxiety disorder (CMS/HCC) Generalized anxiety disorder [facility] N[facility] - Reported* Type Description Date Medical History bipolar depression Medical History hx stomach ulcers Medical History migraine headaches Surgical History T&A 1997 Surgical History Nebo Teeth 2005 Surgical History Keloid Scar from [...] Surgical History hysterectomy Hospitalization History See Above [place] [employer] Other [facility] general Narrative - Reported* Type Description Date Medical History bipolar depression Medical History hx stomach ulcers Medical History migraine headaches Medical History IBS Medical History chronic depression Medical History anxiety Medical History Gestational diabetes - yes Medical History PCOS Medical History Esophageal reflux Medical History fatigue Medical History lactose intolerance Medical History obesity Surgical History T&A 1997 Surgical History Nebo Teeth 2005 Surgical History Keloid Scar from [...] reconstruction 2 021 Hospitalization History See Above [place] [employer] Other [facility] general Narrative - Reported* Type Description Date Medical History bipolar depression Medical History hx stomach ulcers Medical History migraine headaches Medical History IBS Medical History chronic depression Medical History anxiety Medical History Gestational diabetes - yes Medical History PCOS Medical History Esophageal reflux Medical History fatigue Medical History lactose intolerance Medical History obesity Surgical History T&A 1998 Surgical History Nebo Teeth 2005 Surgical History Keloid Scar from [...] reconstruction 2 021 Hospitalization History See Above [place] [employer] Other Hospital course Narrative No data available for this section [facility] No data available for this section [facility] No data available for this section [facility] Advance Directives No Advanced Directives Records Found Advance Directive Response Recorded Date/ Time Advance Directives No April 08 0 6:58am Advance Directive Response Recorded Date/ Time Advance Directives No April 08 0 7:58am Chief Complaint and Reason for Visit Chief Complaint New [facility] [place] hcw exposure Dysmenorrhea,Dyspareunia,Abnormal Uterine [...] and content) Reason Comments Med Management Follow-up Specialty Diagnoses / Procedures Referred By Contact Referred To Contact Psychiatry / Behavioral Health Diagnoses med mgmt Procedures [place] OFFICE/OUTPATIENT ESTABLISHED LOW MDM [facility] [address] [facility] [address] [place] [address] Phone: tel: fax: Chelsea Virk, PRO[employer]-[facility] [address] [facility] [address] [place] [address] Phone: tel: fax: Referral ID Status Reason Start Date Expiration Date Visits Re quested Visits Authorized [id number] Closed 10/11/2024 04/09/2025 1 1 Reason Comments Med Management Follow-up Tremors are [...] possibly the vraylar or Zoloft. Reason Comments Marital therapy Reason Comments Migraine [...] Dates Lambert Gavin DO Attending Provider Active MINA Mercedes-Irish Primary Care Provider Active Team Status: Active Member Role Status Dates PHYSICIAN NO FAMILY Primary Care Provider Active KRISTIN Mercedes Attending Provider Active Team Status: Active Member Role Status Dates MINA Mercedes-Irish Primary Care Provider Active Team Status: Inactive [...] Dates KRISTIN Mercedes Primary Care Provider Active Start: December 08, 2023 End: December 08, 2023 Fabienne Guerra DPM MS Attending Provider Active Start: December 08, 2023 End: December 08, 2023 Team Status: Active Member Role Status Dates SADI Mercedes Primary Care Provider Activ e Team Status: Inactive Member Role Status Dates Sera Lares NP-C Attending Provider Active S tart: February 26, 2024 End: February 26, 2024 SADI Mercedes Primary Care Provider Activ e Start: February 26, 2024 End: February 26, 2024 Ignition Specialist Relationship Specialty Start Date End Date Unallocated, [place] Provider, [facility] [place] [address] PCP - General Family Medicine 05/11/24 Ignition Specialist Relationship Specialty Start Date End Date Unallocated, [place] [address] PCP - General Family Medicine 05/11/24 Ignition Specialist Relationship Specialty Start Date End Date Unallocated, [place] [address] PCP - General Family Medicine 05/11/24 Team Status: Inactive Member Role Status Dates Ame Zaragoza [facility]- Primary Care Provider Activ e Start: September 19, 2024 End: September 19, 2024 Taisha Tejada APRN Attending Provider Active S tart: September 19, 2024 End: September 19, 2024 Ignition Specialist Relationship Specialty Start Date End Date Unallocated, [place] [address] PCP - General Family Medicine 05/11/24 Ignition Specialist Relationship Specialty Start Date End Date Unallocated, [place] [address] PCP - General Family Medicine 05/11/24 Ignition Specialist Relationship Specialty Start Date End Date Unallocated, [place] [address] PCP - General Family Medicine 05/11/24 Ignition Specialist Relationship Specialty Start Date End Date Unallocated, [place] [address] PCP - General Family Medicine 05/11/24 Ignition Specialist Relationship Specialty Start Date End Date Unallocated, [place] [address] PCP - General Family Medicine 05/11/24 Ignition Specialist Relationship Specialty Start Date End Date Unallocated, [place] [address] PCP - General Family Medicine 05/11/24 Akira Gavin DO [address] [address] Referring Physician Neurology 11/01/24 Ignition Specialist Relationship Specialty Start Date End Date Unallocated, Vanessa Pulido MD [address] [place] [id number] PCP - General Family Medicine 05/11/24 Akira Gavin DO [address] [address] Referring Physician Neurology 11/01/24 Ignition Specialist Relationship Specialty Start Date End Date Unallocated, Vanessa Pulido MD [address] [place] [address] PCP - General Family Medicine 05/11/24 Akira Gavin DO [address] [address] Referring Physician Neurology 11/01/24 Ignition Specialist Relationship Specialty Start Date End Date Unallocated, Vanessa Pulido MD [address] [place] [id number] PCP - General Family Medicine 05/11/24 Akira Gavin DO [address] [address] Referring Physician Neurology 11/01/24 Chelsea Virk, PROJECT BU[employer]ER-[employer] [address] [place] [address] [place] [address] Nurse Practitioner Psychiatry 11/16/24 Goals (unrecognized section and content) Goals may be documented in a n alternate section INFORMATION SOURCE (unrecogn ized section and content) DATE CREATED AUTHOR 02/12/2023 [facility] DATE CREATED AUTHOR AUTHOR'S ORGANIZ ATION 04/20/2023 [facility] DATE CREATED AUTHOR AUTHOR'S ORGANIZ ATION 12/14/2023 [facility] DATE CREATED AUTHOR AUTHOR'S ORGANIZ ATION [...] CREATED AUTHOR AUTHOR'S ORGANIZ ATION 04/25/2024 [facility] DATE CREATED AUTHOR AUTHOR'S ORGANIZ ATION 11/24/2024 [facility] dicri Specialists [facility] FOR RECORDS PERTAINING TO PATIENTS WHO [...] BE BASED ON THE PRIMARY CLINICAL RECORDS. [facility] [employer] [facility]. provides no warranty or guarantee of the accuracy or completeness of information in this document.
--- NOTE | 2024-12-10 14:47 | ED_ITS ---
HPI - SOB/Dyspnea General Chief Complaint: Shortness of Breath/Dyspnea Stated Complaint: SOB Time Seen by Provider: 12/10/24 12:07 Source: patient Mode of arrival: walk-in Limitations: no limitations History of Present Illness HPI Narrative: The patient is a 39-year-old female who apparently was diagnosed with possible viral illness last week, exactly 8 days ago she was prescribed prednisone and Z- Wali that she is finishing up, she mentioned that she have no history of asthma or COPD and she does not use any inhalers She does feel tightness in her chest and that mostly what brought her here, no cough no nausea no vomiting no other concerns, this is a chest pressure that she is mentioning it there all the time according to her for the last 7 days The patient apparently mentioned that she was feeling sick for the last 7 days and she was called to go to work today and because there is no replacement for her but she felt tight and she left work to come here Related Data Home Medications ?Medication ?Instructions ?Recorded ?Confirmed Lactobacillus acidophilus 100 mmu cells PO DAILY 11/28/23 12/08/23 (Acidophilus capsule) cariprazine 3 mg capsule (Vraylar) 3 mg PO DAILY 11/28/23 12/08/23 cetirizine 10 mg tablet 10 mg PO DAILY PRN allergy symptoms 11/28/23 12/08/23 lamotrigine 100 mg tablet 100 mg PO DAILY 11/28/23 12/08/23 meloxicam 15 mg tablet 15 mg PO DAILY 11/28/23 12/08/23 propranolol 160 mg capsule,24 160 mg PO Q24H 11/28/23 12/08/23 hr,extended release rizatriptan 10 mg tablet 10 mg PO DAILY PRN migraine 11/28/23 12/08/23 headache sertraline 100 mg tablet 100 mg PO BID 11/28/23 12/08/23 trazodone 50 mg tablet 100 mg PO QPM PRN sleep 11/28/23 12/08/23 Previous Rx's ?Medication ?Instructions ?Recorded alendronate 70 mg tablet (Fosamax) 70 mg PO QWEEK 12 weeks #12 tabs 12/09/23 aspirin 81 mg tablet,delayed 81 mg PO BID 30 days #60 tabs 12/09/23 release (Adult Low Dose Aspirin) cefadroxil 500 mg capsule 500 mg PO BID 7 days #14 caps 12/09/23 cholecalciferol (vitamin D3) 125 125 mcg PO DAILY 90 days #90 caps 12/09/23 mcg (5,000 unit) capsule ondansetron 4 mg disintegrating 4 mg PO Q8H PRN nausea and 12/09/23 tablet vomiting 5 days #15 tabs oxycodone-acetaminophen 5 mg-325 1 tab PO Q6H PRN pain 7 days #28 12/09/23 mg tablet (Percocet) tabs sennosides 8.6 mg tablet (Senna 8.6 mg PO DAILY PRN constipation 7 12/09/23 Laxative) days #7 tabs tizanidine 2 mg tablet 2 mg PO TID PRN muscle spasticity 12/09/23 7 days #21 tabs ondansetron HCl 4 mg tablet 4 mg PO Q6H PRN nausea and 06/15/24 vomiting #12 tabs hydrocodone 5 mg-acetaminophen 325 1 tab PO Q8H PRN pain 3 days #8 10/29/24 mg tablet tabs prednisone 20 mg tablet 20 mg PO DAILY 5 days #5 tabs 10/29/24 Allergies Allergy/AdvReac Type Severity Reaction Status Date / Time adhesive tape Allergy Severe Rash Verified 12/10/24 12:01 povidone-iodine (From Allergy Rash Verified 12/10/24 12:01 Betadine) codeine AdvReac Vomiting Verified 12/10/24 12:01 Review of Systems ROS Status of ROS 10 or more systems reviewed and unremark able except as noted in history and below [facility] Medical History (Updated 12/10/24 @ 13:34 by Becky Teran MD) Stress incontinence ?N39.3 - Stress incontinence (female) (male) (ICD-10) Hallux valgus ?M20.10 - Hallux valgus (acquired), unspecified foot (ICD-10) Strain of right peroneal muscle or tendon ?S86.311A - Strain of muscle(s) and tendon(s) of peroneal muscle group at lower leg level, right leg, initial encounter (ICD-10) 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 - Congenital deformity of feet, unspecified, unspecified foot (ICD- 10) 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 - Other congenital varus deformities of feet, unspecified foot (ICD- 10) Equinus contracture of right ankle ?M24.571 - Contracture, right ankle (ICD-10) Osteoarthritis of right ankle and foot ?M19.071 - Primary osteoarthritis, right ankle and foot (ICD-10) Eversion deformity of right foot ?M21.071 - Valgus deformity, not elsewhere classified, right ankle (ICD-10) Posterior tibial tendon dysfunction ?M76.829 - Posterior tibial tendinitis, unspecified leg (ICD-10) Insomnia ?G47.00 - Insomnia, unspecified (ICD-10) Depression ?F32.A - Depression, unspecified (ICD-10) Anxiety ?F41.9 - Anxiety disorder, unspecified (ICD-10) COVID-19 ?U07.1 - COVID-19 (ICD-10) Migraine ?G43.909 - Migraine, unspecified, not intractable, without status migrainosus (ICD-10) Kidney stones ?N20.0 - Calculus of kidney (ICD-10) Seasonal allergies ?J30.2 - Other seasonal allergic rhinitis (ICD-10) Heartburn ?R12 - Heartburn (ICD-10) IBS (irritable bowel syndrome) ?K58.9 - Irritable bowel syndrome without diarrhea (ICD-10) Encounter for removal of skin lesion ?L98.9 - Disorder of the skin and subcutaneous tissue, unspecified (ICD-10) Surgical History (Updated 12/09/23 @ 09:51 by Marleni Butler NP) History of wisdom tooth extraction ?K08.409 - Partial loss of teeth, unspecified cause, unspecified class (ICD- 10) History of colonoscopy ?Z98.890 - Other specified postprocedural states (ICD-10) History of esophagogastroduodenoscopy (EGD) ?Z98.890 - Other specified postprocedural states (ICD-10) H/O sinus surgery ?Z98.890 - Other specified postprocedural states (ICD-10) History of nasal septoplasty ?Z98.890 - Other specified postprocedural states (ICD-10) H/O lumpectomy ?Z98.890 - Other specified postprocedural states (ICD-10) History of endometrial ablation ?Z98.890 - Other specified postprocedural states (ICD-10) History of dilation and curettage ?Z98.890 - Other specified postprocedural states (ICD-10) History of cholecystectomy ?Z90.49 - Acquired absence of other specified parts of digestive tract (ICD- 10) History of tonsillectomy ?Z90.89 - Acquired absence of other organs (ICD-10) History of hysterectomy ?Z90.710 - Acquired absence of both cervix and uterus (ICD-10) History of foot surgery (2018) ?Z98.890 - Other specified postprocedural states (ICD-10) History of foot surgery (03/02/21) ?Z98.890 - Other specified postprocedural states (ICD-10) Family History (Updated 11/28/23 @ 09:29 by Tina Chen NP) Other Family history of cervical cancer Family history of diabetes mellitus Family history of hypertension Family history of lung cancer Family history of myocardial infarction Family history of ovarian cancer Social History (Updated 11/28/23 @ 09:20 by Tina Chen NP) Within the past year, how often did you have a drink containing alcohol: never Score interpretation: A score less than 3 is consistent with normal alcohol consumption. 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 General: Well-appearing and in no apparent distress. Skin: Warm, dry, no pallor noted. No rash. Head: Normocephalic, atraumatic. Neck: Supple, non-tender. Eye: Pupils are equal, round and EOMI. No scleral icterus. Ears, Nose, Mouth, and Throat: TM are clear, no nasal mucosal hypertrophy. Oral mucosa is moist, no posterior oropharynx erythema, uvula is mid-line Cardiovascular: Regular Rate and Rhythm without murmur, gallop or rub. Respiratory: No accessory muscle use or respiratory distress. Lungs are clear to auscultation, no wheezing, rales or rhonchi Chest Wall: no tenderness Back: No midline thoracic or lumbar vertebral tenderness. No CVA tenderness Musculoskeletal: normal ROM, no calf or popliteal tenderness, no lower extremity edema/swelling GI: Abdomen is soft, non-distended. Normal bowel sounds. No masses appreciated. No tenderness to palpation. No rebound, guarding, or rigidity noted. Constitutional Vital Signs, click to edit/add: Last Vital Signs Temp 97.9 F 12/10/24 12:01 Pulse 82 12/10/24 12:01 Resp 20 12/10/24 12:01 BP 121/77 12/10/24 12:01 Pulse Ox 100 12/10/24 12:01 Course Vital Signs Vital signs: Vital Signs Temperature 97.9 F 12/10/24 12:01 Pulse Rate 82 12/10/24 12:01 Respiratory Rate 20 12/10/24 12:01 Blood Pressure 121/77 12/10/24 12:01 Pulse Oximetry 100 12/10/24 12:01 Temperature 97.9 F 12/10/24 12:01 Pulse Rate 82 12/10/24 12:01 Respiratory Rate 20 12/10/24 12:01 Blood Pressure 121/77 12/10/24 12:01 Pulse Oximetry 100 12/10/24 12:01 MDM - SOB/Dyspnea MDM Narrative Medical decision making narrative: The patient chest x-ray did not show any acute pathology I did explain to the patient that right now she does not have any pneumonia and that was her main concern, I also explained to her that her tightness in the chest although present is not showing with any wheezing on examination her heart rate was normal and her oxygenation was normal. I offered the patient more workup with blood and EKG if needed although the patient presentation right now does not seem to be cardiac The patient requested to rest today and tomorrow and I did give her a work excuse I did explain to the patient right now that in case of any new symptoms or any continuous symptoms and if she wants us to do a workup for this that she can come back to us as it seemed that the patient mostly needed some work excuse to have more rest for the next 2 days When I offered her the blood workup she said no she does not want it and she was just worried about pneumonia The patient is to follow up with primary care physician in next 2-3 days or to return to the emergency department should any of the signs or symptoms worsen or new symptoms develop. The patient agrees with the following Diagnosis and Treatment plan and the patient will be discharged home. Discharge Plan Discharge Chief Complaint: Shortness of Breath/Dyspnea Clinical Impression: Dyspnea Patient Disposition: Home, Self-Care Time of Disposition Decision: 13:33 Condition: Good Prescriptions / Home Meds: No Action ondansetron HCl 4 mg tablet 4 mg PO Q6H PRN (Reason: nausea and vomiting) Qty: 12 0RF Vraylar 3 mg capsule 3 mg PO DAILY Acidophilus Capsule 100 mmu cells PO DAILY lamotrigine 100 mg tablet 100 mg PO DAILY meloxicam 15 mg tablet 15 mg PO DAILY propranolol 160 mg capsule,extended release 24 hr 160 mg PO Q24H rizatriptan 10 mg tablet 10 mg PO DAILY PRN (Reason: migraine headache) sertraline 100 mg tablet 100 mg PO BID trazodone 50 mg tablet 100 mg PO QPM PRN (Reason: sleep) cetirizine 10 mg tablet 10 mg PO DAILY PRN (Reason: allergy symptoms) aspirin [Adult Low Dose Aspirin] 81 mg tablet,delayed release (DR/EC) 81 mg PO BID 30 Days Qty: 60 0RF cefadroxil 500 mg capsule 500 mg PO BID 7 Days Qty: 14 0RF cholecalciferol (vitamin D3) 125 mcg (5,000 unit) capsule 125 mcg PO DAILY 90 Days Qty: 90 0RF alendronate [Fosamax] 70 mg tablet 70 mg PO QWEEK 84 Days Qty: 12 0RF oxycodone-acetaminophen [Percocet] 5-325 mg tablet 1 tab PO Q6H PRN (Reason: pain) 7 Days Qty: 28 0RF ondansetron 4 mg tablet,disintegrating 4 mg PO Q8H PRN (Reason: nausea and vomiting) 5 Days Qty: 15 0RF sennosides [Senna Laxative] 8.6 mg tablet 8.6 mg PO DAILY PRN (Reason: constipation) 7 Days Qty: 7 0RF tizanidine 2 mg tablet 2 mg PO TID PRN (Reason: muscle spasticity) 7 Days Qty: 21 0RF hydrocodone-acetaminophen 5-325 mg tablet 1 tab PO Q8H PRN (Reason: pain) 3 Days Qty: 8 0RF prednisone 20 mg tablet 20 mg PO DAILY 5 Days Qty: 5 0RF Print Language: Bulgarian Instructions: Dyspnea (ED) Referrals: CONCHITA ORTIZ [Primary Care Provider] - 1 week Discharge Date/Time: 12/10/24 13:39
== END 2024-12-10 13:39 | disposition home or self-care (01) ==
PROVIDERS: Emergency Provider Emergency Medicine; PCP Nurse Practitioner Family
DX: R06.00 Dyspnea, unspecified (principal); R07.89 Other chest pain; Z90.49 Acquired absence of other specified parts of digestive tract; Z90.710 Acquired absence of both cervix and uterus
CPT/HCPCS: 71046; 99283

== ENCOUNTER 2024-12-26 14:20 | Outpatient (REF) | payer OTHER, SELFPAY ==
[2024-12-29 10:08] LABS: Age Gdln ACOG Testing Note (.); HPV Aptima Negative (Negative); IGP, Aptima HPV, rfx 16/18,45 Note (.)
== END 2024-12-26 14:21 | disposition home or self-care (01) ==
LOC: LAB 14:20
PROVIDERS: PCP Nurse Practitioner Family; Visit Provider Physician Assistant
DX: Z01.419 Encounter for gynecological examination (general) (routine) without abnormal findings (principal)
CPT/HCPCS: 87624; 88175

== ENCOUNTER 2025-01-08 15:48 | Outpatient (OUT) | payer OTHER, SELFPAY ==
--- OUTSIDE RECORDS SUMMARY | 2025-01-08 16:00 | XMS_ITS | CCD ---
Author Organization [facility] Care Team Providers Care Music Education Adjunct Professor Name Role Phone Eric ([facility])Kit Attending Provider Dewayne Jaems Attending Provider [phone] Ame Zaragoza Primary Care Provider Costa Armando Attending Provider Christiana Martel Unavailable Sera Lares Unavailable Ame Zaragoza Unavailable KRISTIN Zaragoza Attending Provider NO FAMILY, PHYSICIAN Primary Care Provider Unava ilable Debra Celestin Unavailable Marleni Jordan Unavailable NO FAMILY, PHYSICIAN Primary Care Provider Unava ilable KRISTIN Zaragoza Attending Provider DO Lambert Gavin Attending Provider [phone] KRISTIN Zaragoza Primary Care Provider NO FAMILY, PHYSICIAN Primary Care Provider Unava ilable KRISTIN Zaragoza Attending Provider KRISTIN Zaragoza Primary Care Provider DO Lambert Gavin Attending Provider MD Alexis Lincoln Attending Provider CONOR BEAL Primary Care Physician [phone] FARHEEN STRATTON Attending Unavailable FARHEEN STRATTON Admitting Unavailable Donald Cannon Consulting Unavailable AME ZARAGOZA Primary Care Unavailable FARHEEN STRATTON Consulting Unavailable [...] KRISTIN Zaragoza Ame Primary Care Provider U [facility] Charlie, GER Mahajan Attending Provider Ame Zaragoza Primary Care Unavailable Charlie, Fabienne Mahajan Attending Unavailable Fabienne Guerra Admitting Unavailable KRISTIN Zaragoza [facility] Primary Care Provider U [facility], GER Mahajan Attending Provider AME ZARAGOZA Primary [...] Care Provi concepción Akira Gavin DO Unavailable Minerva-Nossek STEEL ENGRAVER-TOWER DRAGLINE OPERATOR, Chelsea M Unavailable Unavailable Primary Care Provider UnavailGERALDINE Gonsalves Attending Unavailable SELF Referring Unavailable GERALDINE BOLAÑOS Referring Unavailable MINERVA-NOSSEK, CHELSEA M Attending Unavailab le MINERVA-NOSSEK, CHELSEA M Attending Unavailab YUE Farah Attending Unavailable BERGER, ISAAK Attending Unavailable BERGER, [...] 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: [codeine] Drug Allergy Unknown (qualifier value) [facility] Povidone-Iodine (3 sources) Povidone-Iodine ; 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: [povidone iodine topical] Drug Allergy Unknown (qualifier value) [facility] (9 sources) Adhesive Tape; 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: [Adhesive tape] Allergy to substance 4 Rash/itching [facility] Comment on above: states anything stic [place] causes itching/rash (7 sources) paper tape Allergy to substance 1 Rash/itching [facility] (20 sources) Codeine; 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: [codeine] Drug Allergy 8 Unknown (qualifier value), GI intolerance, Unknown [facility] (20 sources) Povidone-Iodine ; 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: [povidone iodine topical] Drug Allergy 8 Unknown (qualifier value), Rash, Itching [facility] (13 sources) bandaids Propensity to adverse reactions rash [employer] Other (16 sources) Polyester Propensity to adverse reactions 3 rash [facility] (6 sources) Povidone-Iodine ; 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: [Betadine] Drug Allergy 2 itchy rash [facility] (6 sources) Adhesive bandage; 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: [Adhesive Bandage] Drug allergy Unknown (qualifier value) [facility] (2 sources) Codeine Drug Allergy 2 [facility] (1 source) Adhesive Tape; 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: [Tape] Propensity to adverse reactions to drug (disorder) [facility] (6 sources) Adhesive agent Allergy to substance 0 Rash [facility] (20 sources) Wound Dressing Adhesive Drug Allergy 0 [...] 19, 2024 4:39pm take 1 capsule by mo ut every twenty-four hours Vraylar 4.5 MG 1 capsule Orally Once a day Active Vraylar Active [facility] oral tablet (4 sources) Start: 04-16-2019 take 1 tablet by mouth once daily [facility] oral tablet 1 tab(s), Oral, Daily, Refill(s) 0, Prophylaxis Start Date: 04/16/19 Status: Ordered cetirizine hydrochloride 10 mg oral tablet (20 sources) Histamine-1 Receptor Antagonist End: 12-26-2024 take 1 tablet by mouth once daily cetirizine (ZyrTEC) 10 MG tablet Take 10 mg by mouth Daily 12/26/2024 Discontinued (Other) colesevelam hydrochloride 625 mg oral tablet (3 sources) Bile Acid Sequestrant Start: 04-09-2024 take 3 tablets by mouth twice daily Welchol 625 mg Tab 1,875 mg = 3 tab(s), Oral, BID, # 540 tab(s), Refills(s) 0, Pharmacy: [facility]/pharmacy #[id number], 162, cm, 04/09/24 13:38:00 EDT, [...] propionate 0.05 mg/actuat metered dose nasal spray (20 sources) Corticosteroid Start: 02-26-2024 End: 12-26-2024 take 2 spray(s) nasal route once daily fluticasone (Flonase) 50 MCG/ACT nasal spray Administer 2 sprays into each nostril Daily 02/26/2024 12/26/2024 Discontinued (Other) Start: 02-26-2024 End: 09-19-2024 take 1 spray(s) nasal route once daily Fluticasone Propionate 50 mcg/actuation spray,suspension Discontinued 2 SPRAY INTRANASAL Daily February 25, 2024 11:00pm September 19, 2024 4:39pm administer into each nostril 1.5 ml fremanezumab-vfrm 150 mg/ml auto-injector (20 sources) Start: 07-17-2024 End: 01-13-2025 fremanezumab (Ajovy) 225 MG/1.5ML auto-injector Indications: Chronic migraine without aura without status migrainosus, not intractable (CMS/HCC) Inject 1 pen (225 mg) under the skin every 30 (thirty) days 1.5 mL 5 07/17/2024 01/13/2025 Active inject 225 mg by sub cutaneous injection every month AJOVY AUTOINJECTOR 225 mg/1.5 mL auto-injector Inject 225 mg subcutaneously once every month. Active hydrOXYzine (20 sources) Antihistamine Start: 04-16-2019 hydrOXYzine Or al, TID, Refills(s) 0, Anxiety Start Date: 04/16/19 Status: Ordered End: 12-26-2024 take 1 capsule by mouth every eight hours as needed for anxiety hydrOXYzine pamoate (Vistaril) 50 MG capsule Take 50 mg by mouth every 8 (eight) hours if needed for anxiety (take 1 tablet Q8h as needed). 12/26/2024 Discontinued (Other) ibuprofen 600 mg oral tablet (15 sources) [...] Mood Stabilizer, Anti-epileptic Agent Start: 02-26-2024 End: 03-18-2025 take 1 tablet by mouth once daily lamoTRIgine (LaMICtal) 150 MG tablet Indications: Bipolar II disorder, most recent episode major depressive (CMS/HCC) Take 1 tablet (150 mg) by mouth Daily 90 tablet 12/18/2024 03/18/2025 Active Start: 11-25-2020 End: 09-19-2024 take 1 [...] 1 tablet Orally Once a day Active Mmdfinxsty-Rriensf-Kofitmooj in (Folinic-Plus) 4-50-2 mg tablet (7 sources) Start: 11-25-2020 take 1 tablet by mouth once daily Psntzhgbde-Jwvhsis-Guesqxsrocu (Folinic-Plus) 4-50-2 mg tablet Active 1 TAB PO Daily November 25, 2020 10:32am Start: 11-25-2020 End: 09-19-2024 take 1 tablet by mouth once daily Aqgovkcnlv-Gxbelvv-Wgubqxtkygi (Folinic- Plus) 4-50-2 mg tablet Discontinued 1 TAB PO Daily November 25, 2020 12:00am September 19, 2024 4:40pm Start: 11-25-2020 take 1 tablet by jerri th once daily Pjucjcekck-Anyhrph-Paypuickjxk (Folinic- Plus) 4-50-2 mg tablet Active 1 TAB PO Daily November 25, 2020 12:00am Start: 11-25-2020 take 1 tablet by jerri th once daily Kohqclmgyj-Ydewfdt-Xabzkhzonmr (Folinic- Plus) 4-50-2 mg tablet Active 1 [...] Status: Ordered meloxicam 15 mg oral tablet (15 sources) Nonsteroidal Anti-inflammatory Drug Start: 09-04-2024 End: 12-26-2024 take 1 tablet by mouth once daily meloxicam (Mobic) 15 MG tablet Take 15 mg by mouth Daily 09/04/2024 12/26/2024 Discontinued (Other) take 1 tablet by jerri every twenty-four hours Meloxicam 15 MG 1 tablet Orally Once a day Active nitroglycerin 0.004 mg/mg rectal ointment (1 source) Nitrate Vasodilator Start: 06-28-2019 Rectiv 0.4% rectal ointment 1 suraj, Rectal, q12hr, 30 gram, Refill(s) 0, [facility] Start Date: 06/28/19 Status: Ordered [place]-3 (1 source) Start: 04-16-2019 [place]-3 Oral, Daily, Refill(s) 0, Prophylaxis Start Date: 04/16/19 Status: Ordered [place]-3 Fatty Acids (Fish Oil Concentrate) 1,000 mg Capsule (7 sources) Start: 11-25-2020 take 1 capsule by mouth once daily [place]-3 Fatty Acids (Fish Oil Concentrate) 1,000 mg Capsule Active 1000 MG PO Daily November 25, 2020 10:35am Start: 11-25-2020 End: 09-19-2024 take 1 capsule by mouth once daily [place]-3 Fatty Acids (Fish Oil Concentrate) 1,000 mg Capsule Discontinued 1000 MG PO Daily November 25, 2020 12:00am September 19, 2024 4:40pm Start: 11-25-2020 take 1 capsule by mo [facility] once daily [place]-3 Fatty Acids (Fish Oil Concentrate) 1,000 mg Capsule Active 1000 MG PO Daily November 25, 2020 12:00am Start: 11-25-2020 take 1 capsule by mo [facility] once daily [place]-3 Fatty Acids (Fish Oil Concentrate) 1,000 mg [...] Daily September 19, 2024 12:00am Start: 04-09-2024 End: 12-26-2024 take 1 tablet by mouth before mealtime Protonix 40 MG EC tablet Take 40 mg by mouth in the morning. Take before meals. 04/09/2024 12/26/2024 Discontinued (Other) predniSONE 20 mg oral tablet (20 sources) Start: 10-29-2024 End: 12-26-2024 take 1 tablet by mouth once daily predniSONE (Deltasone) 20 MG tablet Take 20 mg by mouth Daily 10/29/2024 12/26/2024 Discontinued (Other) Start: 09-04-2024 End: 12-26-2024 take 1 tablet by mouth in the morning predniSONE (Deltasone) 10 MG tablet Take 10 mg by mouth in the morning and 10 mg before bedtime. 09/04/2024 12/26/2024 Discontinued (Other) Start: 08-10-2023 [facility] predniSONE 20 MG 1 tablet Orally bid for 5 day(s) Jul, Not-Taking/PRN predniSONE Activ e Probiotic (13 sources) Probiotic Active Probiotic Formula (Bacillus Coagulans) (4 sources) Start: take 1 capsule by mouth once daily Probiotic Formula (Bacillus Coagulans) 1 cap(s), Oral, Daily, Refill(s) 0, Prophylaxis Start Date: 04/16/19 Status: Ordered 24 hr propranolol hydrochloride 120 mg extended release oral capsule (20 sources) beta-Adrenergic Gricel Start: End: take 1 capsule by mouth once daily propranolol LA (Inderal LA) 120 MG 24 hr capsule Indications: Chronic migraine without aura without status migrainosus, not intractable (CMS/HCC) , Tremor Take 1 capsule (120 mg) by mouth Daily Do not crush, chew, or split. 30 capsule 1 11/01/2024 12/26/2024 Discontinued (Other) Start: 04-09-2024 propranolol 16 0 mg, Refills(s) [...] SUBCUT every week September 19, 2024 12:00am End: 12-26-2024 inject 0.5 mg by subcutaneous injection every week semaglutide (Ozempic) 2 MG/1.5ML solution pen-injector Inject 0.5 mg under the skin 1 (one) time per week 12/26/2024 Discontinued (Other) sertraline 100 mg oral tablet (20 sources) Serotonin Reuptake Inhibitor Start: 04-25-2024 End: 03-18-2025 take 1.5 tablets by mouth once daily sertraline (Zoloft) 100 MG tablet Indications: Bipolar II disorder, most recent episode major depressive (CMS/HCC) Take 1.5 tablets (150 mg) by mouth Daily 135 tablet 12/18/2024 03/18/2025 Active Start: 04-09-2024 Zoloft Oral, D aily, Refills(s) 0 Start Date: 04/09/24 Status: Ordered Start: 09-29-2022 End: 03-18-2025 sertraline (ZOLOFT) 100 mg t ablet Take 150 mg by mouth once daily. 09/29/2022 03/18/2025 Active Start: 11-25-2020 End: 09-19-2024 take 1 tablet by mouth once daily Sertraline (Zoloft) 100 mg tablet Discontinued 100 MG PO Daily February 25, 2024 11:00pm September 19, 2024 4:40pm take 2 tablets by mo [facility] every twenty-four hours Sertraline HCl 100 MG 2 tablets Orally Once a day Active Sertraline HCl A ctive SUMAtriptan 25 mg oral tablet (3 sources) Serotonin-1b and Serotonin-1d Receptor Agonist SUMAtriptan (IMITREX ) 25 mg tablet Take 25 mg by mouth as needed for migraine headache (see administration instructions). Active topiramate 25 mg oral tablet (1 source) Start: 04-16-20 take 1 tablet by mouth twice daily Topamax 25 mg Tab 25 mg = 1 tab(s), Oral, BID, Refills(s) 0, Migraine headache Start Date: 04/16/19 Status: Ordered traMADol hydrochloride 50 mg oral tablet (6 sources) Opioid Agonist Start: 11-27-19 take 1 tablet by mouth every six hours as needed for pain Tramadol 50 mg tablet Active 50 MG PO Q6H as needed for pain 19 03November 27, 2020 12:00am traZODone hydrochloride 50 mg oral tablet (20 sources) Serotonin Reuptake Inhibitor Start: 11-17-19 End: 12-26-19 take 2 tablets by mouth at bedtime traZODone (Desyrel) 50 MG tablet Indications: Insomnia, unspecified type Take 2 tablets (100 mg) by mouth at bedtime 180 tablet 09/05/2024 12/26/2024 Discontinued (Other) Start: 11-25-2020 take 1 tablet by jerri once daily at bedtime as needed Trazodone 50 mg tablet Active 50 MG PO Daily at bedtime as needed for Insomnia November 25, 2020 12:00am Tri Femynor (1 source) Start: 04-16-2019 take 1 tablet by mouth once daily Tri Femynor 1 tab(s), Oral, Daily, Refill(s) 0, control/menstrual regulation Start Date: 04/16/19 Status: Ordered Vitamin D3-Vitamin K2 (Dosoquin) 5,500-200 unit-mcg Tablet (7 sources) Start: 01-26-2021 take 1 tablet by mouth once daily [...] Drug Class(es) Dates Sig (Normalized) Sig (Original) [id number] 200 actuat albuterol 0.09 mg/actuat metered dose [...] Discontinued 500 MG PO Three times daily 21 7 Ale 27th, 2024 11:00pm September 19, 2024 4:39pm amoxicillin [...] (7 sources) Phenothiazine Start: 07-10-2022 Promethazine HCl 10 Jul, 2022 25 mg rizatriptan 10 mg oral tablet (20 sources) Serotonin-1b and Serotonin-1d Receptor Agonist Start: 02-26-2024 End: 09-19-2024 take 3 tablets by mouth every twenty-four hours as needed Rizatriptan (Maxalt) 10 mg tablet Discontinued 10 MG PO EVERY 2-4 HOURS as needed February 25, 2024 11:00pm September 19, 2024 4:40pm do not exceed 3 doses per 24 hrs Start: 04-16-2019 rizatriptan ML T (Maxalt-ELEMENTARY CLASSROOM TEACHER) 10 MG disintegrating tablet dissolve 1 tablet [...] RT ANK FOOT] Onset: 3 Chronic Other connective tissue disease (7 sources) Peroneal tendinitis of right lower limb; 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: [Peroneal tendinitis, right leg] Onset: 5 12-26-2024 Episodic Other endocrine disorders (13 sources) Polycystic ovary [...] per request of Phys. EHR Cmte Other non-traumatic joint disorders (2 sources) Pain in right ankle and joints of right foot; 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: [PAIN IN RIGHT ANKLE] Onset: 2 Episodic Other non-traumatic joint disorders (1 source) Ankle pain; 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: [Pain in right ankle and joints of right foot] 12-26-2024 Episodic Other nutritional; endocrine; and metabolic disorders [...] sources) Insomnia; 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: [Insomnia, unspecified] 09-05-2024 Episodic Residual codes; unclassified (5 sources) History of operative procedure on foot; 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: [Other specified postprocedural states] Onset: 5 12-26-2024 Episodic Residual codes; unclassified (4 sources) Orthopedic hardware in situ; 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: [Presence of other specified devices] Onset: 5 12-26-2024 Episodic Unclassified (2 sources) LOW BACK PAIN, [...] Resolved: 08-22-2021 Episodic Other aftercare (1 source) snf (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; 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: [PRISON CURRENT USE OF ASPIRIN] Onset: 10-26-2022 Episodic Other aftercare (1 source) Other middle or intermediate school principal (current) drug therapy; 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: [OTH MEDICAL RECORD TECHNICIAN CURRENT DRUG THERAPY] Onset: 10-26-2022 Episodic Other connective tissue disease (1 source) Pain in left finger(s) Onset: 10-02-2021 Resolved: 10-02-2021 Episodic Other connective tissue disease (4 sources) Pain in left foot; 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: [PAIN IN LEFT FOOT] Onset: 07-07-2022 Episodic Other connective tissue disease (1 source) Pain in right foot; 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: [PAIN IN RIGHT FOOT] Onset: 07-12-2022 Episodic Other nervous system disorders (20 sources) Finding of hand region; 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: [Tremor, unspecified] Onset: 02-28-2023 02-28-2023 Episodic Other nervous system disorders (20 sources) Ataxia; 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: [Ataxia, unspecified] Onset: 07-17-2024 07-17-2024 Episodic Other nervous system disorders (20 sources) Tremor; 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: [Tremor, unspecified] Onset: 07-17-2024 [...] 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: [LOW BACK PAIN, UNSPECIFIED] Onset: 10-23-2022 Unclassified (4 sources) History of operative procedure on foot 12-26-2024 Urinary tract infections (1 source) Acute cystitis with hematuria Onset: 05-24-2022 Resolved: 05-24-2022 Episodic Viral infection (1 source) COVID-19 Onset: 08-22-2021 Resolved: 08-22-2021 Results Test Name Value Interpretation Reference Range Facility IGP,APTIMA HPV,AGE GDLNon AGE GDLN ACOG TESTING Note . [facility] Comment on above: TESTS RESULT FLAG UN ITS REF RANGE LAB Clinician Provided Cytology Information Source.............Vagina No. of containers..01 ThinPrep Vial Age Algo ACOG [facility]... 3065 FLAG LEGEND: L-Low Normal,H-High Normal,LL-Alert Low,HH-Alert High <-Panic Low,>-Panic High,A-Abnormal,AA-Critical Abnormal Performed at: 01 =[address] [id number] Fay Nava MD, HPV APTIMA Negative Negative [facility] Comment on above: This nucleic acid am plification test detects fourteen high- risk HPV types (16,18,31,33,35,39,45,51,52,56,58,59,66,68) without differentiation. Performed at: =[address] [id number] Network Consultant: Fay Nava MD, Phone: [phone] Performed at: [address] [id number] Network Consultant: Fay Nava MD, Phone: [phone] IGP, APTIMA HPV, RFX 16/18,45 Note . [facility] Comment on above: TESTS RESULT FLAG UN ITS REF RANGE LAB DIAGNOSIS: 02 NEGATIVE FOR INTRAEPITHELIAL LESION OR MALIGNANCY. Specimen adequacy: 02 Satisfactory for evaluation. Performed by: Jennifer Bello, Planning Supervisor ([facility]) . 02 Note: Note 02 The Pap smear is a screening test designed to aid in the detection of premalignant and malignant conditions of the uterine cervix. It is not a diagnostic procedure and should not be used as the sole means of detecting cervical cancer. Both false-positive and false-negative reports do occur. Test Methodology: Note 02 This liquid based ThinPrep(R) pap test was screened with the use of an image guided system. HPV Genotype Reflex Note 02 Criteria not met, HPV Genotype not performed. FLAG LEGEND: L-Low Normal,H-High Normal,LL-Alert Low,HH-Alert High <-Panic Low,>-Panic High,A-Abnormal,AA-Critical Abnormal Performed at: [address] [facility] [address] [phone] Fay Nava MD, SPATULA-ALONE [facility] 12-26-2024 [facility] Office Visit (KEIRAORRM ) NOBLE CASTILLO ([id number]) 1985 F Date Time Provider Department 12/26/24 3:00 PM GERALDINE BOLAÑOS During your visit today, we recorded the following information about you: Geraldine Bolaños DPM 12/26/2024 4:32 PM Signed Patient Visit for Noble Castillo 1985 39 year old female SUBJECTIVE: Chief Complaint: Patient presents with: Right Ankle - New, Pain Pain Scales: Verbal (Numeric Rating or Visual Analog Scale) Pain Level: 4 Pain Location: Ankle-Right Description: Sharp, Shooting (electric) Duration Amount of Time: 1 Duration Units: Years Frequency: Continuous Intervention/Comfort measure: Cold, Medication, Exercise (ankle brace) Comments: She is here for pain in the right ankle. Had right foot surgery Dec 2023 by . Pain improves with ankle brace. Additional HPI: very complicated history of bilateral foot surgery by Dr. Fabienne Guerra, DPM Treatment for pes plano valgus deformity Re alignment LEFT , arthrodesis talo calcaneal joint RIGHT She was doing well post operative ,however, Now complains of RIGHT lateral hind foot pain for several months Additional Modifying factor: What makes better / worse: Better with A.S.O. (Ankle Stabilizing Orthosis) RIGHT PCP: No primary care provider on file. No past medical history on file. Current Outpatient Medications Medication Sig lamoTRIgine (LAMICTAL) 150 mg tablet Take 150 mg by mouth once daily. sertraline (ZOLOFT) 100 mg tablet Take 150 mg by mouth once daily. SUMAtriptan (IMITREX) 25 mg tablet Take 25 mg by mouth as needed for migraine headache (see administration instructions). AJOVY AUTOINJECTOR 225 mg/1.5 mL auto-injector Inject 225 mg subcutaneously once every month. No current facility-administered medications for this visit. ALLERGIES Allergen Reactions Adhesive Rash No past surgical history on file. No family history on file. Tobacco Use: Not on file REVIEW OF SYSTEMS: The remainder of the ROS was reviewed with the patient and is negative except as noted. OBJECTIVE: General: Pleasant in no acute distress Lower extremity exam: Vascular exam: Normal vascular exam, palpable pluses with brisk capillary fill Neurological exam: Normal neurological exam, gross epicritic sensation intact Dermatological exam: See Epic photo uploaded today: December 26, 2024 Well healed scars from previous surgery Normal exam without rashes or lesions of skin. No evidence of evidence of petechiae, purpura, telangiectasia Musculoskeletal exam: Tenderness to palpation posterior and inferior to lateral malleolus RIGHT ANKLE Local effusion along the course of peroneal tendons With eversion stress peroneal tendons strain of peroneal retinaculum noted - difficult to assess No obvious subluxation peroneal tendons Firm tissue deep to peroneal tendons / possible fibrous impingement Gross overall Manual muscle strength evaluation relatively intact Arthrodesis solid and in good alignment Other Gross range of motion appears to be intact to ankle and foot LABS: Most recent labs reviewed LABORATORY STUDIES: No results for input(s): HB , WBC , PLT , WSR , CRP , CCPABG , RF , INR , CREATININE , ALB , PROT , URICACID , HBA1C , VITD25 in the last 55594 hours. X-ray weight bearing RIGHT FOOT with calcaneus axial MRI reviewed from outside / non [facility] facility ASSESSMENT: Z98.890 History of foot surgery (primary encounter diagnosis) M76.71 Peroneal tendinitis of right lower extremity Z97.8 Orthopedic hardware present PLAN: Explained to the patient etiology and treatment plan. Treatment options discussed at length Previous treatment includes: N.S.A.I.D.s ( non steroidal anti inflammatory drugs) Medrol dose pack Physical therapy Ankle bracing I discussed with the patient using J felt support posterior to lateral malleolus with A.S.O. (Ankle Stabilizing Orthosis) If not improved recommend follow up and further work up May consider revision repair All questions were answered. Noble Castillo appeared to be well informed. Greater than 50% of the visit was spent face to face counseling and/or coordinating care for the patient. Geraldine Bolaños DPM Referring Provider: SELF [200] Allergies As of Date: 12/26/2024 Noted Allergy Reaction ADHESIVE 04/12/2020 2 - Rash Date Reviewed: 12/26/2024 Reviewed by: Susan Coley OCCA - Fully Assessed Reason for Visit: New [630803] Pain [78] Primary Visit Diagnosis:History of foot surgery [Z98.890] Other Visit Diagnoses:Peroneal tendinitis of right lower extremity [M76.71] Orthopedic hardware present [Z97.8] Order(s):XR CALCANEUS 2V AXIAL/LAT RIGHT [[id number]] Order #: [id number] FUTURE XR FOOT GENERAL 3V AP/LAT/OBL RIGHT [[id number]] Order #: [id number] FUTURE Prescriptions as of 12/26/2024 - lamoTRIgine (LAMICTAL) (more content not included)... Normal [facility] No Panel Informationon 12-26 IMPRESSION: Postoperative and degenerative changes. Quality Compliance Manager: ZEINA Transcribe Date/Time: Dec 26 2024 6:52P Dictated by : YAHIR GOLDMAN MD This examination was interpreted and the report reviewed and electronically signed by: YAHIR GOLDMAN MD on Dec 26 2024 6:53PM EST DIVISION OF RADIOLOGY Radiology Study observation (narrative) [facility] No Panel InformationOrdered By: [facility]cf Provider on 12-26-2024 [facility] XR CALCANEUS 2V AXIAL/LAT RT on 12-26-2024 XR CALCANEUS 2V AXIAL/LAT RT * * *Final Report* * * DATE OF EXAM: Dec 26 2024 3:59PM LZX [id number] - XR CALCANEUS 2V AXIAL/LAT RT / PROCEDURE REASON: History of foot surgery * * * * Physician Interpretation * * * * EXAMINATION: XR CALCANEUS 2V AXIAL/LAT RT, XR FOOT 3V AP/LAT/OBL RT HISTORY: rt heel pain (accession [id number]), rt foot pain (accession [id number]) History of foot surgery . TECHNIQUE: XR CALCANEUS 2V AXIAL/LAT RT, XR FOOT 3V AP/LAT/OBL RT Laterality: RIGHT Number of different views (projections): 2 (accession [id number]), 3 (accession [id number]) M: XB_1 COMPARISON: RESULT: And partial appearing bony ankylosis. Osteotomy of the medial cuneiform with intact appearing surgical hardware. Mild first MTP degenerative changes. No acute fracture or dislocation. There are no bony erosions. IMPRESSION: Postoperative and degenerative changes. Quality Compliance Manager: [facility] Transcribe Date/Time: Dec 26 2024 6:52P Dictated by : YAHIR GOLDMAN MD This examination was interpreted and the report reviewed and electronically signed by: YAHIR GOLDMAN MD on Dec 26 2024 6:53PM EST [id number] Normal [facility] XR Calcaneus - right 2 Views on 12-26-2024 * * *Final Report* * * DATE OF EXAM: Dec 26 2024 3:59PM LZX 5307 - XR CALCANEUS 2V AXIAL/LAT RT / PROCEDURE REASON: History of foot surgery * * * * Physician Interpretation * * * * EXAMINATION: XR CALCANEUS 2V AXIAL/LAT RT, XR FOOT 3V AP/LAT/OBL RT HISTORY: rt heel pain (accession [id number]), rt foot pain (accession [id number]) History of foot surgery . TECHNIQUE: XR CALCANEUS 2V AXIAL/LAT RT, XR FOOT 3V AP/LAT/OBL RT Laterality: RIGHT Number of different views (projections): 2 (accession [id number]), 3 (accession [id number]) M: XB_1 COMPARISON: RESULT: And partial appearing bony ankylosis. Osteotomy of the medial cuneiform with intact appearing surgical hardware. Mild first MTP degenerative changes. No acute fracture or dislocation. There are no bony erosions. DIVISION OF RADIOLOGY Provider, [facility] - 12/26/2024 * * *Final Report* * * DATE OF EXAM: Dec 26 2024 3:59PM LZX 5307 - XR CALCANEUS 2V AXIAL/LAT RT / PROCEDURE REASON: History of foot surgery * * * * Physician Interpretation * * * * EXAMINATION: XR CALCANEUS 2V AXIAL/LAT RT, XR FOOT 3V AP/LAT/OBL RT HISTORY: rt heel pain (accession [id number]), rt foot pain (accession [id number]) History of foot surgery . TECHNIQUE: XR CALCANEUS 2V AXIAL/LAT RT, XR FOOT 3V AP/LAT/OBL RT Laterality: RIGHT Number of different views (projections): 2 (accession [id number]), 3 (accession [id number]) M: XB_1 COMPARISON: RESULT: And partial appearing bony ankylosis. Osteotomy of the medial cuneiform with intact appearing surgical hardware. Mild first MTP degenerative changes. No acute fracture or dislocation. There are no bony erosions. IMPRESSION IMPRESSION: Postoperative and degenerative changes. Quality Compliance Manager: [facility] Transcribe Date/Time: Dec 26 2024 6:52P Dictated by : YAHIR GOLDMAN MD This examination was interpreted and the report reviewed and electronically signed by: YAHIR GOLDMAN MD on Dec 26 2024 6:53PM [facility] XR FOOT 3V AP/LAT/OBL RTon 0 12-26-2024 XR FOOT 3V AP/LAT/OBL RT * * *Final Report* * * DATE OF EXAM: Dec 26 2024 3:59PM LZX 5337 - XR FOOT 3V AP/LAT/OBL RT / PROCEDURE REASON: multiple diagnoses * * * * Physician Interpretation * * * * EXAMINATION: XR CALCANEUS 2V AXIAL/LAT RT, XR FOOT 3V AP/LAT/OBL RT HISTORY: rt heel pain (accession [id number]), rt foot pain (accession [id number]) History of foot surgery . TECHNIQUE: XR CALCANEUS 2V AXIAL/LAT RT, XR FOOT 3V AP/LAT/OBL RT Laterality: RIGHT Number of different views (projections): 2 (accession [id number]), 3 (accession [id number]) M: XB_1 COMPARISON: RESULT: And partial appearing bony ankylosis. Osteotomy of the medial cuneiform with intact appearing surgical hardware. Mild first MTP degenerative changes. No acute fracture or dislocation. There are no bony erosions. IMPRESSION: Postoperative and degenerative changes. Quality Compliance Manager: [facility] Transcribe Date/Time: Dec 26 2024 6:52P Dictated by : YAHIR GOLDMAN MD This examination was interpreted and the report reviewed and electronically signed by: YAHIR GOLDMAN MD on Dec 26 2024 6:53PM EST [id number] Normal [facility] XR Foot - right AP and Later al and obliqueon 12-26-2024 * * *Final Report* * * DATE OF EXAM: Dec 26 2024 3:59PM LZX 5337 - XR FOOT 3V AP/LAT/OBL RT / PROCEDURE REASON: multiple diagnoses * * * * Physician Interpretation * * * * EXAMINATION: XR CALCANEUS 2V AXIAL/LAT RT, XR FOOT 3V AP/LAT/OBL RT HISTORY: rt heel pain (accession [id number]), rt foot pain (accession [id number]) History of foot surgery . TECHNIQUE: XR CALCANEUS 2V AXIAL/LAT RT, XR FOOT 3V AP/LAT/OBL RT Laterality: RIGHT Number of different views (projections): 2 (accession [id number]), 3 (accession [id number]) M: XB_1 COMPARISON: RESULT: And partial appearing bony ankylosis. Osteotomy of the medial cuneiform with intact appearing surgical hardware. Mild first MTP degenerative changes. No acute fracture or dislocation. There are no bony erosions. DIVISION OF RADIOLOGY Provider, [facility] - 12/26/2024 * * *Final Report* * * DATE OF EXAM: Dec 26 2024 3:59PM LZX 5337 - XR FOOT 3V AP/LAT/OBL RT / PROCEDURE REASON: multiple diagnoses * * * * Physician Interpretation * * * * EXAMINATION: XR CALCANEUS 2V AXIAL/LAT RT, XR FOOT 3V AP/LAT/OBL RT HISTORY: rt heel pain (accession [id number]), rt foot pain (accession [id number]) History of foot surgery . TECHNIQUE: XR CALCANEUS 2V AXIAL/LAT RT, XR FOOT 3V AP/LAT/OBL RT Laterality: RIGHT Number of different views (projections): 2 (accession [id number]), 3 (accession [id number]) M: XB_1 COMPARISON: RESULT: And partial appearing bony ankylosis. Osteotomy of the medial cuneiform with intact appearing surgical hardware. Mild first MTP degenerative changes. No acute fracture or dislocation. There are no bony erosions. IMPRESSION IMPRESSION: Postoperative and degenerative changes. Quality Compliance Manager: [facility] Transcribe Date/Time: Dec 26 2024 6:52P Dictated by : YAHIR GOLDMAN MD This examination was interpreted and the report reviewed and electronically signed by: YAHIR GOLDMAN MD on Dec 26 2024 6:53PM [facility] Provider Letteron 04-24-2024 Provider Letter April 24, 2024 NOBLE CASTILLO [address] [place] [id number] : 1985 Dear Jessica, We have been trying to reach you with no success. It is important that you return our call regarding your medication question upon receiving this letter. Also, at the time of your call, please provide us with your current information. Thank you for your prompt attention to this matter. Sincerely, [facility] [phone] Normal [facility] Coding Summary.on 04-21-2024 Coding Summary. NACHKyyj01XUm9aKz+PG h lYWQ+ZY1UEKFpH40nbABd wA8nF5CWHYgYPodvAWAIO OqDLqJygfWaIJ1kbGGlJV Ju IC8+EI1lKVJfOfyyeSGiv 1S4tPS1E28jgh3mAHylrU X4WAWfTuGxsnxmm2qokJr 6IDcuNmluOyBt BDGclS57SYM3oB84Ix80n SDmsOZqq5eelHl2CoQvXP KeCHA1nLiyCVfzh8IeFHI hZ77pbSLwf1A3 DOPsmUhuvBDpSjRhqVB6z B8gAUxqfcfnt3rbrlxnNj t8hi22lXOdl9N9vJF7O8A hvvF3CDXbbPFv OowrpWOJyB6flnkox9qpb zwqIfIrKLEzYGs4LUl2HR UjzBbqAyDcKI17RCW4ZUW oqxQzN5DwTHFm gQghYbU7p3D9Mk5LR3YUE xsbK0ZGPOUUPYzgqTW+PC 60md15G4WfLjbjXch0VHB iJDR8zUC8aO9a ODTeCPkfr8C0mZJ5J3Zch gPkff5be1tlZEEjISnyK6 3xwDEoo1Y2MROakUJ9SKZ zjKicCpBcsS27 Oyc+MJOaxGrun0TnPiwoj 0rhi0ymiTz9RjmkFQCodg BahYlfBYI7o4IzEt2lOZT ciKR0zLB9bG1k XeFnYbU5QUhdO215YtMes VXrWmdqB18yH6FyzCI+PH YpVno1UCHakRikOD3dB8I hZGRpbmctbGVm zZjqPJ6wUWPchdcqVTXqd I2yWXVbN9v6BfLeFvP1EI ajW0XpKWDbsufhHl72nN3 xVwEoNtR9RTwc F1XnoxY3XEPdcINjNHwcE CQ5X08sf1T5DANnLPSkXP Z4jOF6wX0fnXfqwhedkBT mdDsgdmVydGlj XJpzZNogC595JBNxgOwzG kNvZGluZyBEYXRlOiAgMD YvMjIvMjAyNDwvdGQ+PHR pVVL1vIyqQQAi kRDbAUcnJp3nyFqqqYqwU W7cJDZzmdroNIHxeQ6tQZ PzzKKagPlkRN7oOXWqojx li582OjQgLYT2 CBNzmKBtA6QsnP1uVeVlN RGvOMIrF9VdbYVkKUasF6 68KZyaImG5HCLunyCmX9C sLWFsaWduOiB0 f1L1Mq0Kx3WcbgjjV0Ddp WMaWdIzKiolRFf8Q8ReJq wvdHI+SV10LBWiOZ04DBg 9PJT2sPnpCUih RSTmW6MgsP3oOjEkYMAsX GRkOyc+PHRhYmxlIHdpZH RoPScxMDAlJyBzdHlsZT0 xSp9yBDVaVEYr dEkjsLAcToFze2hsQKVlA JprYT8fcFliH3OqqYC2NB Drp8t2Ic79Y15mA3JmvLL +GEDrvAA7sWA4 aB3dKgMnKlA9CVcmO375S rSdyIWnRdoqa1leb6mnlT y3XmH8TRZflqNboLbkNIF 5z9DnVl61M86q IHdpZHRoPSIxNSUiIHZhb Xfzzs9iwC5yMc0+PGNvbC V8sNM3qC6bExPvRvK6BLn yU913VnWpnOAt Zdpau5okv8gvqMh4BwGfC MBvthWiwDxaPFA5j7ZiFn 51P4RcvXobe8OnMov5mb3 6lIDsw6G4wHW0 A0YfSZPbinuxoZRcsUkoG K2aQAKanqqeDNCayQ6lWM BgW4c6JuSsVvZ1OOygI4K inrD3PNLvkDAk RTGasXZLoT5qskidi4uve rpmAuNlTJFcJNb8WPj4LG LwiJzlAdGxZOZ8VcK9TGB 6dZMryR2xkTdd xvswvB3vWrw+UBC8tQTlj ZAAAJ3kGoyvqJI+PHRkIH R2lLqdCJklSYPjwH2vCDY aF8w6RdLkRrC6 TXgdM5AewwZ0UPUjyFJuW GJimRFBqT3ctutcs6frie auMkIwDIKzFSx1VGe5KHL saWduOiBsZWZ0 ZeK5QWD8bOWtcB8myOres hthpF4eMxr+QmlydGggRG D8PTc1I9DcQnr5TNDtjGx wGP2rvRVmZHop Ua9giCnggZmzVZ5dZVAbt tllf276SlUzo9qfKPQhbI JeYPklZJB5N94hj7I4NYP gIFQrELZ5rGM7 kC9etOpumnfugGLjvPayy mWctSjdBRgwGTcgU984ID WuxOtwHxXnVRa9L5VlDrb 5QDZycDfvCX6z hHEoIUgvMg3bkFxhwActH Q2lULCalpjli320NbYei0 igBSNyvOOzEEriOGW2O05 bb4G6ONJoRMKt TND9rPM4dQ3kyGclfsreb GVmdDsgdmVydGljYWwtYW wgO406PXJrwCtdWnZggUv 9I9JpCeo0UNDt zXupEL5gmLYvWSikCt9eg GwmySpiCN0pFUWmfxdlh3 57PhSeu7jbPLJhfJUwMHb nQHG2C98wf1F5 BBKzZXLuZBZ8bLH0cX7aj GlnbjogbGVmdDsgdmVydG axCGteSWfsK495QTJzmVi nPlBhdGllbnQg BKwoBXo8F4JgLmqlhXW+P S97MTVzNT12zWZtpVMqd9 vieTs9AcIkJFQbEPD9uPy xYYnaa4LyYNBw K40dvKRua2L5DVKfnBjei GUkMuDytXL8uC7sFJngsd nrx3zocsqgAmbdf1rkew0 9tB09T70rEGth ZHRoPSIzMCUiIHZhbGlnb d0sqC6lCv8+WHUckVI1vE E6iJ5eIYNeYsG1TZxrS18 9InRvcCIvPjxj g8yad4ynrXg4NiO5TXXji mRssBpsRGD5d6DlId10Y3 9sIHdpZHRoPSIyMCUiIHZ bnBpwvp2vzH7b Ii8+SKFejUR6uPX2eT9xX fFbUoE9QWayP913QhYuqW FpXbdfX56zN0UgjWK+PHR uJfg9TYOzrDpj BW2diJXgTWngAt1yKNP5H zHdFcYpTLafF6ErIZVinf vclxorwPF5UBMpYLJnuD5 2Fs8drLbqUBKt cBVPsP0ildyyu7pvplbeI vJqBWQpHXb9CDi9OACobC hzYhHxYXE0YrN5AAG5sNN yoV4cjPgizixj kP2aD0RkOEYpasehUn73j S1kPeKuJyH4NLqwTyn+GUERRERO 0DXbtbADmVBUDAYW4EKO8 1MZ59wTMfv0S2 iGW7F3FbUAUqunfbqvory FL9OTJdFEBgnE91mCUjCA kxPf0ns8B3q343NWJjMKW bgU48Vr5aqFae JXHwqLYGxR3czttqf6ygt xzyNpMrCPLuZEp3DOn3ZU PumUbeKqXdBIG8LvW9URZ 0gXReiA9ruCfr bmlngO3wMmp+MDYvMDUvM Kd0LweyyLA+MUTvPUW0sX jaERpoDATkxN5hRUIlX3e 4XfOfPcP3QUow Z9SsFQQuodxmBn32jZ2eM sRbKcR5BXccF2HthhY9AV QcnKJjGNlpZJF0Z06qf1E 3WAMpRJOkNXA6 cNN7iI6kgXvarqvyqWRie DsgdmVydGljYWwtYWxpZ2 35RLZzeVijHzJ8MLpeXEO iDY81FP00kRPc r3Y8bWZ7J7JwIAEccmolp fyyfTS8QOLuTWDnaX01xM UcYQpzJb3ij8F0o269ITO qHPBcsJ76Jn8b mVudRSCytSEErQ0keiaro 8hvklsqQuHaOLYvJXo4XQ h7GJTkmUstErOsZPY0UhC 5RSH7wURreE6f bVvoplemjV8aHtk+RmVtY DnuVV33WF19xAEnk3B5iP T4K6PgVQSthirqnnbpcAH 6BHCsVZNomS46 qJNbJVodYg8ze6U3g326Q DQpZZPzkU18Yq7ojYeuVX CavJCXpX2hquqdi6rmacw gIzAwMDAwMDt0 SId3MFEjwPkxLvPqJTD2B mC0EOV9rLRteN5ixMwyqf ealE6cHyx+VEDiSFXkt4Y it0ZtBC03KK93 I7VqVlwqjGUmpYZ+PHRhY mxlIHdpZHRoPScxMDAlJy SwvJyeDH9eVy1iSTKvFVR vbGxhcHNlOiBj o7ggVZDgQDikQE1ycVfjO 6QlzXM2ZKPyy1y5Jt67X9 9bF8HmaHQ+TCUsoWH2wXO 4nV7aSnGnSgT0 JCpmD984QgVdaABkIskzg 9lvr0boqMh1MeCyZFXxdh BkpEmtTWW1s5DvSn44J68 sIHdpZHRoPSIy DNKlZFVmwUfeec3cpX8tD i8+AQBusBM1wSG2kC5cAf BxLaU8PNhrM313AhHlxSY qCijyI60kO0Or dXA+GWZeQkw1LGKncUnjJ G8vwEGvIDrxDa1oKUO7Bs JtViHdOTdeT3HyXKAtusv kspqilHK2CXSn MLMwcZ30Ki9cgXlgGx1zB PSfVMO6BQSswUGbE2OcaC 4xMyVvPIOeOGYnU6InlCY oEYieK832LAmb HfB2KELpstWlW4VyJIZyw TavBsH2r9V0Sr8IzEmzuL XoTC8nMgCrOTb8J4LqKin 9RJAdpIidHU2m lBKwDApjUp1wjIlmbWoyA F6eAWYqwgpxs149PjPjb8 osSUHcfQLzCTrrRDH1V23 lx9O2JKKmACMp LVA3dND6eN5ruDwybhhkl GVmdDsgdmVydGljYWwtYW pzH406LYOgwGpiTjQRItz 4B0KhBcp3XYOb vWcuJP1kkLNvYSqcAs0me IhnxQxvCF9qRAIbxzjgh1 03MmGwb5wwHGSavPVxVMa uRIV5I27lb3G3 YTKwIOZvTES3tSE0nZ6gl GlnbjogbGVmdDsgdmVydG hkJUhqEUedC111UUDmaPp qUg4WTlp0O9Jw Sfz1HNShwAhvYD3zcMQiT FloNv7vhUprsZbpFF1fAX Mlcvxxm126AkWtk9vzNVO wcHQgVGltZXM7 N70if9Y8RSNgOQXiCJF3i FS5iN7etPenvfjcvWPguE vzlhWsjNejDIajHEdzQ16 6IHRvcDsnPlBh eWVyOjwvdGQ+IK02em25K 7PzArgkKqh7MBAsMQE5rH T3fY4rBIFgFThne1L5sEU 2A2VkgiVbxn0u u6pkDSPiTXcmR (more content not included)... Normal [facility] Calprotectin, Fecalon 06-20- 2024 Calprotectin (Stl) [Mass/Mass] 29 mcg/gm Invalid Interpretation Code 0-120 [facility] Comment on above: Result Comment: Conc entration Interpretation Follow-Up < 5 - 50 ug/g Normal None >50 -120 ug/g Borderline Re-evaluate in 4-6 weeks >120 ug/g Abnormal Repeat as clinically indicated Performed at: [address] [id number] MD Parmjit Connor Performed By: #### 1 [id number] #### [facility] [address] [place] [address] O & P EXAM, ROUTINE, REFLEXo n 04-17-2024 Ova and parasites identified Concentration Nom (Stl) Comment Invalid Interpretation Code [facility] Comment on above: Result Comment: No o va, cysts, or parasites seen. One negative specimen does not rule out the possibility of a parasitic infection. Performed at: [address] [id number] PhD Pancho Higgins Performed By: #### 3 [id number] #### [facility] [address] [place] [address] O & P Exam, Routineon 2023 Ova and parasites identified LM Nom (Unsp spec) Final report Invalid Interpretation Code [facility] Comment on above: Result Comment: Thes e results were obtained using wet preparation(s) and trichrome stained smear. This test does not include testing for Cryptosporidium parvum, Cyclospora, or Microsporidia. Performed at: [address] [id number] PhD Pancho Higgins Performed By: #### 1 [id number] #### [facility] [address] [place] [address] Pancreatic Elastase, Fecalon 04-17-2024 Elastase.pancreatic (Stl) [Mass/Mass] >800 Invalid Interpretation Code >200 [facility] Comment on above: Result Comment: Florecita re Pancreatic Insufficiency: <100 Moderate Pancreatic Insufficiency: 100 - 200 Normal: >200 Performed at: [address] [id number] MD Parmjit Connor Performed By: #### 1 [id number] #### [facility] [address] [place] [address] Enteric Panel by PCRon 04-12 C. coli+jejuni+upsaliens is DNA MARYELLEN+non-probe Ql (Stl) Not detected Normal [facility] Comment on above: Result Comment: Test ing was performed utilizing reverse hr administrative assistant (RT), polymerase chain reaction (PCR), and array [...] nulcleic acid test. Performed By: #### 1 [id number] #### [facility] [address] [place] [address] E. coli stx1+stx2 genes MARYELLEN+non-probe Ql (Stl) Negative Normal [facility] Comment on above: Performed By: #### 1 [id number] #### [facility] [address] [place] [address] Enteric Panel by PCR Negative Normal [facility] Enteric Panel Intrl QC Pass Normal [facility] Comment on above: Result Comment: Test ing was performed utilizing reverse hr administrative assistant (RT), polymerase chain reaction (PCR), and array [...] 1 and 2. Performed By: #### 1 [id number] #### [facility] [address] [place] [address] Norovirus genogroup I+II RNA MARYELLEN+non-probe Ql (Stl) Not detected Normal [facility] Comment on above: Performed By: #### 1 [id number] #### [facility] [address] [place] [address] Rotavirus A RNA MARYELLEN+non-probe Ql (Stl) Not detected Normal [facility] Comment on above: Performed By: #### 1 [id number] #### [facility] [address] [place] [address] S. enterica+bongori DNA MARYELLEN+non-probe Ql (Stl) Not detected Normal [facility] Comment on above: Result Comment: This test result should be correlated with clinical presentations and medical history by a healthcare provider to determine its clinical significance. Performed By: #### 1 [id number] #### [facility] [address] [place] [address] Shigella species+EIEC invasion plasmid antigen H ipaH gene MARYELLEN+non-probe Ql (Stl) Not detected Normal [facility] Comment on above: Performed By: #### 1 [id number] #### [facility] [address] [place] [address] V. cholerae+parahaemolyt icus+vulnificus DNA MARYELLEN+non-probe Ql (Stl) Not detected Normal [facility] Comment on above: Performed By: #### 1 [id number] #### [facility] [address] [place] [address] Y. enterocolitica DNA MARYELLEN+non-probe Ql (Stl) Not detected Normal [facility] Comment on above: Performed By: #### 1 [id number] #### [facility] [address] [place] [address] CDiff PCRon 04-11-2024 C. difficile toxin A+B Ql (Stl) YES Normal [facility] Comment on above: Performed By: #### 3 [id number] #### [facility] [address] [place] [address] CDiff PCR Unable to perform test due to consistency of stool. C. Difficile testing will only be performed on diarrheal (unformed) stool unless ileus due to C. difficile is expected. Reference: Clinical Practice Guidelines for Clostridium difficile Infection in Adults, Infection and Hospital Epidemiology February 2010, Vol 31, No 5. Normal [facility] Celiac Disease Comprehensive on 04-11-2024 Endomysium IgA Ql (S) Negative Invalid Interpretation Code Negative [facility] Comment on above: Performed By: #### 1 [id number] #### [facility] [address] [place] [address] Gliadin peptide IgA Qn (S) 7 unit(s) Invalid Interpretation Code 0- [facility] Comment on above: Result Comment: Nega tive 0 - 19 Weak Positive 20 - 30 Moderate to Strong Positive >30 Performed By: #### 1 [id number] #### [facility] [address] [place] [address] Gliadin peptide IgG Qn (S) 2 unit(s) Invalid Interpretation Code 0-19 [facility] Comment on above: Result Comment: Nega tive 0 - 19 Weak Positive 20 - 30 Moderate to Strong Positive >30 Performed By: #### 1 [id number] #### [facility] [address] [place] [address] IgA [Mass/Vol] 286 mg/dL Invalid Interpretation Code 87-352 [facility] Comment on above: Result Comment: Perf ormed at: [facility] [id number] [place], [place] [id number] PhD Pancho Higgins Performed By: #### 1 [id number] #### [facility] [address] [place] [address] tTG IgA Qn (S) <2 Invalid Interpretation Code 0-3 [facility] Comment on above: Result Comment: Nega tive 0 - 3 Weak Positive 4 - 10 Positive >10 Tissue Transglutaminase (tTG) has been identified as the endomysial antigen. Studies have demonstr- ated that endomysial IgA antibodies have over 99% specificity for gluten sensitive enteropathy. Performed By: #### 1 [id number] #### [facility] [address] [place] [address] tTG IgG Qn (S) <2 Invalid Interpretation Code 0-5 [facility] Comment on above: Result Comment: Nega tive 0 - 5 Weak Positive 6 - 9 Positive >9 Performed By: #### 1 [id number] #### [facility] [address] [place] [address] Ambulatory Visit Summaryon 0 04-09-2024 Ambulatory Visit Summary NOBLE CASTILLO :1985 Visit Date:04/09/2024 Ambulatory Visit Instructions Your Diagnosis Chronic diarrhea S/P cholecystectomy Chronic GERD Lower abdominal pain Gastric erosion Your Care Team Attending Physician - Lester Mcelroy MD Primary Care Physician - CONOR BEAL MD [...] Chronic diarrhea Invalid Interpretation Code Chronic GERD [facility] CHEMISTRYOrdered By: SYSTEM SYSTEM on 04-09-2024 CRP [Mass/Vol] 1.3 mg/dL Normal <=1.9mg/dL Remisol Ch em TSH Qn 3.27 m[IU]/L Normal 0.34 - 5.60 mcIU/mL Remisol Chem CRPon 04-09-2024 CRP [Mass/Vol] 1.3 mg/dL Normal <=1.9 [facility] Comment on above: Performed By: #### 2 [id number] #### [facility] [address] [place] [address] Consent for Treatmenton 03-31 Consent for Treatment [phone] [id number] Normal [facility] Gastroenterology Office/Clin ic Noteon 04-09-2024 Gastroenterology Office/Clinic [...] BID, # 540 tab(s), Refills(s) 0, Pharmacy: [facility]/pharmacy #[id number], 162, cm, 04/09/24 13:38:00 EDT, [...] Alcohol Use, (more content not included)... Normal [facility] Comment on above: Result Comment: Elec tronically Signed By: Navi MACK, Lester Godoy\.br\Date and Time Signed: 04/09/24 14:24 EDT Angel 12-08-2023 L Specimen: [id number] Received: 12/09/23 Status: TANA Dupree Num: [id number] Spec Type: Surgical Subm Dr: Fabienne Guerra DPM, MS Tissues: A Tendon/Sheath (RT POST TIBIAL TEND) Procedures: HE, Gross/Micro L3 Age/ Patient Sex Location Account Attending Physician JackNoble 38/F [facility] [id number] Fabienne Guerra DPM, MS SPEC NUM: [id number] RECD: 12/09/23 STATUS: TANA DUPREE NUM: [id number] SHEREE: 12/08/[address]: Fabienne Guerra DPM, MS ENTERED: 12/09/23 [facility] DR: Laura Tamez SPEC TYPE: Surgical DEPT: JEANNIE QUINTERO ORDERED: [...] in one cassette labeled A1. CPT Codes 87441 -------- -------- Specimen: [id number] Received: 12/09/23-5 Status: TANA Dupree Num: [id number] Spec Type: Surgical Subm Dr: Fabienne Guerra,DPQuintin, MS Tissues: A Tendon/Sheath (RT POST TIBIAL TEND) Procedures: ROMERO, Slade/Latesha L3 -------- Patient: Noble Castillo [id number] (Continued) -------- Signed (signature on file) Toney Chandra MD 12/12/23 6365 [facility] Nicotine Metabolite, Urine L Con 04-19-2023 Cotinine LC Negative Invalid Interpretation Code [id number] [facility] Comment on above: Result Comment: Perf ormed At: UI [facility] [place] [address] [facility] [place], [place] [id number] Mark Puentes PhD Ph:[phone] Performed By: #### 1 [id number] ####[facility] (DEFAULT)[address] [place] [address] Lab - Toxicology Resultson 0 04-18-2023 Lab - Toxicology Results [id number]. 00OTGTIFF [facility] CT ANKLE RT WO CONon 023 [...] technique. FINDINGS: BONES: Joint space narrowing with ipfq-vo-rhax articulation involving the medial aspect of the talocalcaneal joint. SOFT TISSUES: Negative. No visible soft tissue swelling. EFFUSION: None visible. OTHER: Negative. IMPRESSION: 1. Pes planus. 2. Dtst-at-pywr articulation between the articular surfaces of the medial talocalcaneal joint. 3. Uniform, normal spacing of the tibiotalar joint. Electronically authenticated by: RAFAEL COATS Date: 2023-02-02 09:25 Normal [facility] CHEMISTRYOrdered By: SYSTEM SYSTEM on 01-17-2023 25-hydroxyvitamin [...] 12 mmol/L Normal 6 - 16 mEq/L [facility] Remisol AST [Catalytic activity/Vol] 15 [iU]/d Normal [...] Normal 0.0 - 8.0 % [facility] HemeAutoSS Eosinophils/Leukocyte s Auto (Bld) [Pure # fraction] 0.1 E9/L Normal 0.0 - 0.5 E9/L [facility] HemeAutoSS Lymphocytes/100 WBC (Bld) 24.6 % Normal 14.0 - 50.0 % [facility] HemeAutoSS Lymphocytes/Leukocyte s Auto (Bld) [Pure # fraction] 3.6 E9/L Normal 1.0 - 4.0 E9/L [facility] HemeAutoSS Monocytes/100 WBC (Bld) 6.6 % Normal 4.0 - 14.0 % [facility] HemeAutoSS Monocytes/Leukocytes Auto (Bld) [Pure # fraction] 1.0 E9/L Normal 0.2 - 1.0 E9/L [facility] HemeAutoSS Neutrophils/100 WBC (Bld) 67.8 % Normal 36.0 - 75.0 % [facility] HemeAutoSS Neutrophils/Leukocyte s Auto (Bld) [Pure # fraction] 10.0 E9/L [...] Coding Summaryon 12-21-2022 Coding Summary HTMLBase 64 XprmtiwzTDm8lUy+PGhlY WQ+NZ9WABHvA96pxEBcvI 2JZ1lARG1NEUHDBYYCUV1 VFH0blWK1EXjeR3AkbtXw UdcqqQYmUB18RXz1TOP4k CwsGXgxcW5mcFIeC8g4Wy MuRM27vI24MHmgIRHsVsO 3LjZpbjsgbWFy J0efBiTqrIPdEjd+PHRhY mxlIHdpZHRoPScxMDAlJy SnuQdmIZ6fTp4iDRHwRAK vbGxhcHNlOiBj t6ayHFGuJZgdUM2jsKohO 6SvkRR8XRZwi1g7Dt37qH I+IEOdMJH4pAykPTinc43 1YpJol2zzFEQ4 xXSrEWmpNQI0W33zj3Z8V RUvFBGqWNS9hNT3aL8tjG nbvxtzJ1FplYMiVkN4NJV 2eSQlvG7gpOmf csuugI3sOes+H45XGK9PH FXACN6LJtx1S3BeIwhuwY I+ZK40HXQhEU09fMOpuZH op4smlZu2UcRl NHOwODX7pGmmUXelc1CdG ORtJ94deFDoc5Z2VZGqeG enkSDdUuAgjDE0dG7jUGw qbvicv3jvunmw Aozge4jrma47wI91Y35zF OtlFIJaGWT3WGQqTSFlgB pkoy0fqA7nPr3+LDyrl3l th9ijzEw6YmZk UESzlyCeeVqnEAS3j5FdS m64D5RcgOybw0NlXku3yo 79bNApa1D6rOL8KNgkRSS djD0zLYbxTyF8 YIOvHwBroY84pOXrTLfcX b3arMlwlBpxKU5wQBNibk wbCJZdeG2sDWIwsLJpsCu eCE9lWEYiifud u170RgNrUHP3MPGewRPdL 3GdlC1wCzMhFOLoSNLtH2 QgoOPsFRvfC392POpjZuB 9XUVutsQqZ8Fd QXPywFqrRoP8j7O8Dq5Eg 9FvwpdqONG4VFwwAXJfBr XlLzCpCbQ8A2VcZbu2CZV nzRkhGO6vP9Cm SZWdiqcktfrslUT3YXVdV PUznU95rEInOVsxMo7lq4 K7c622EJPmMCVbvM79Nl9 udDogMTBwdCBU wV0sarwas0ufnkbxOaUsY HLkFFp6DJf2ZOQjwInzVr CxPCL5CwR0UYK5mUZrxU8 jiYvmxdvftT1e Oyc+C42lxC3xMZR6VZY3k wmuUYExuoHaOY97RR46T6 RyPjwvdGFibGU+PGRpdiB qjSlzPJ1bRxGc u3nhf1TgNGxiH9SiYVSmP QgeTjm3DTVdLRE4gPF0eQ 1jHRYvJUejs2H0uKT8J1P bubJdne8fk1xx CXKzNMdvY85vyEGuf9A3V WZcwBO1YJCtjIqzJeOcdH 93Oyc+VHFxbSqig6ToMtc rd9fzz6lirPb0 BuIdCNQtrnSpePwtNIM7s 3YnAf51I56sVGtcQBJfFS WfQZIlPPRruCbprn6twK0 wIi8+PGNvbCB3 rRM8xC1aEHOjEpQ2SGkbZ 164BjIcoQLuRgjsb7jrg5 ifsDj6DxYgASMmaxYkzMz eOZR3q2DoCy30 S36lZLgcZMSlEGMcZDDrG RZktVajis3hjH1mOm7+PC 9xv6rxlp44fJ16xVP+PHR hRDS2yTsxYBok WNSfsG2xYAmwWtN2QGFzF vQqcF65eQPcKUukHt4ysG tihDcxHK4oMMYgjskvd20 7QeRzg5myUUJe dYJbBJozLZJ7C91cm3I6R MXsJLFyNCW8pYB9qC0qmO lnbjogbGVmdDsgdmVydGl fYKjhZKzdS165 IHRvcDsnPlBhdGllbnQgT gKjHJw7D8LsCmq7MXHwkK ngTB0voHCwLEqzFl4wdTc suZssZV7yBVXj ippcl969AdUuz7rtIKZyq RTyJHizEVT2Q79ed6D6CK VvWSUmKNG9zZD3vB9xvYp nbjogbGVmdDsg nuYarMkhUSfnWFdrH869B HRvcDsnPkJpcnRoIERhdG T8ZJ30QT99gHZxa5T8dZB 7T6YrMAQmpxvr dhkeoQY5PLUkOMApjD61F p5yhVssFs2oFFYuDTT5UQ QjfYPfI2RzkJ0yEkRtIZP eFKFnV6UnwPGc ZAocO648MHhiLuW1KJGus cFkS2TwADFooOxoSfV8s6 X5Ym1AS1K0WN49NG43eLD op0S4wVA6D6Di KANvvmqhmfgkxRG7SPTmK HPjnS93Zq2qfAlyXf4cGU HiMQU6WIJosMDcD0IrbF9 yOiAjMDAwMDAw B5YfvJHaEHunR292OMrtB qF5YHUbuoFtO5RbTXHwwK siHlP5m0S5Pk3DOHg7IY4 6WZ34lWYxq5N0 cFB0A1RqJKHwblivnxtar GO6NBRxHKJhjP61Jq1oqX fnHc3oZVAnMQA8LMDhyKU pA7LxyL5hBoYw SUWrZJNfZ9GqbQUbIDcuZ 121LHyuEbD0CZBbgzVxV1 NeOEZcwVvjStD5p8V7Zg6 PHZHqAU24XRN4 mMS2IN45JR18U8MnWqfpn GFibGU+PHRhYmxlIHdpZH RoPScxMDAlJyBzdHlsZT0 qYz2kGYHrVXLn sRhgoIVfCqIlu2hjHTJzF SriRO5jpLuxM5DswXC6KC Ocs7q6Eq12N20wV9ZilBO +UJRxuMD5qQT5 oE8nApMvWhY5RHziD734Y hXqsYIySdlwe8vau9mwmH k1PdW8ZHGtnyZkzTnaXDF 5n1VtUj89R88x IHdpZHRoPSIxNSUiIHZhb Jiofs8nuI3eBl7+PGNvbC E5dEM3sU7yZxJjYdX8DYf aU367RgGjaWXf Paedz4qvo4dkwDy1YuEnM HZhztJoyTcrTMM8f9QrWf 46U4WovAkzv1CvJwx9hf0 0vFSts8F0iTZ3 F7FjIORfabplwNEbmDszG B3kRSWsgxijVCGtyF4eBR LfR6z0CfDpXhX6TXvaH3H etcF7PHNjaAFi FYhqNUD5F70iw5U7DNMjM MAxCYK1jEI4rF6utXvxpn ogbGVmdDsgdmVydGljYWw mAHugX132WZHw sRjxYGFcfB7gQBIxuZYoh DgaCX5dJOQbkuhlYnrCBP 5HLCBLUklTVElOQSBFTEF QWqN1Z2HzChr9 MSStwCxlIL5yjIOeULhrE d1qySojmAtmYN0zLDCwmh naORWdrC1mNXSkoWDfjVq oTW8fYXWwkpxv d270QgYiWME7XHYcrWUuE 5BcoV6nMgIcKCKlUFNfA2 XjwPMrEBtxV897UXjgIfQ 8BKXnsaMtB9Iq GVYdoTjuZkA6r7M6Ac6eX h1aOW6mYJc6BU85HI10bS Yaj9G4tKI5I6DkINDbbfd btiudiRB9TTSj MMBncK05vULdGZlrTm6bp 0H9t342ZXSfPTNjmE36Tk 3gpMdkBDSayLWZcU6iipm qa3xpdqeqWbSh LYXkIJr3PId3DYTjwMgmF lOwWSH6BeW2GLV7iQFstU 4seYexxwvshG5yEyn+MzY eRZSckuJ7O8Vw Uww5VJAkcHyjYG5edVNeZ YtzEc8gfPsetDdaWX8bPD TphvfsXPMotB8lKTHujOX lyLloCI7mLIPx ptjyu843GiMnMJK4BIFza MPiB1BufZ9bUsJoRTBjNT UcJ5MrfZEfAWbsM207IZn oTmZ5JGFmabJi J3NpBDBgbNhmEaC3p2G2M s8OJR7DKEA0W7CgPbm3NI TbbNuuXV3xfREqDSqvRr4 vxXjvyXyhPZ9z EJEtehbzIDMgdL7kCPAzo ZRrjEchVN0iBZOfygfjq0 95GlMdWZU0XDLglMQbO0P wgL4bLcYiQWVm PXSlY5KgrWNwFJgrT244E EorTeC9ECBfvtTsN4HiGL PkuBrbWyK0m2U3Dx8GJWe vdGQ+ER63co10 R7QgJglgNwd5BTDyUTQ5l AS2qN2oKVJfVEmst7P8xZ B1F2GggzKkzk4na0cwBYV rMRidN51ajNSw x5Y8OXEtoFS1YLClzUfjW qFlpS27Esy+PGNvbGdyb3 PjPqkzt5ynd6jbbLf2ZqG wJSIgdmFsaWdu DDU1h3XmXk74Y81zVMsrJ HRoPSIzMCUiIHZhbGlnbj 5xrC6fRz0+FJXtsCE3sNP 5iX5mNsVcHbN0 FHiqQ023SgDooPRdVkkfj 3bwq6cbjFi2AmCyUZOvlo FoeAkbUMT5e6WoNd90H5K wsEugp4GaSwx1 sy94dXTli8Q7eML4N7CuL QJmkqngdHKbeXnbFI4nUO PxfqhzSSQdtU7lDZTiW9f 7IxEgNkP7DGaf L5MbcoC9GRTujVDqMENhh CDCsC0jaxxph5shwtfjNa UgCOVjTUv3LNk3NPMbuVr fDjFfXEZ3DkG9 CQC1gRCrdW9xdThodmfnm G9wOyc+CNw3s1iflRKfNN 6yeWP0FU89IJ63qPTvf4U 7bQT2T9ZsNWRy baeuzsoqbSI1LBQiCCDqh U05Ki3uzRzbRe2uMDXbIY C7VZOjhJItA7WeqY2aEnA qMEGjTLTbQ1Ex dCQfVUrpU824RAimXzH1S JQvciBaG7XgSYQirVvdMu J2e7P4Yn7PKR15BF68GZ7 9fKXbf9P4hVW2 C4EfQFTymzceluwljLK9P MGlGKMolI43Xt7iwVhcFg 6kKRJgBMX5IGXcjLScS1U apH9rZmJrZTLc AEJiW7JrmCUdMUrcD213V IouHrD6SGHjcwBcY2OgXQ PvfEyiEgZ1i1E9Gr7XAb8 3CP97HR44fDKb f6B1tNS2V7NiJIXpsjgfx ijeaML1FXXpSXXfjJ51Ny 0ofYxiQt2nERKmOCN2TXA dsGAiC0ZejD1q UxJaWPGnKANrK8XdnFXoE DaaV359MNkoRfG0MNDmce ZyF5FvXRNyjPwjNvM9y9Q 6Ab6GPQfhpmw0 X1PcEyfphHG+XZ84BNBnK Q02xPUwzKTsj8xccKm6Gh BvHGCdJAB4vNeuZIklr7W hHDYbC36fwMRo c2U (more content not included)... Normal [facility] ED Clinical Summaryon 2022 ED Clinical Summary [facility] ? Urgent Care [address] [place] [address] Clinical Summary PERSON INFORMATION Name: NOBLE CASTILLO Age: 37 Years Sex: FEMALE : 1985 MRN: Acct#: Visit Reason: UC - Sinus Pain or Congestion; UC - Ear Pain; LT EAR PAIN Arrival: 12/16/2022 11:36:50 Discharge: 12/16/2022 12:00:00 LOS: 000 00:24 Check In: 12/16/2022 11:36:50 Checkout: 12/16/2022 12:00:00 Address: [address] [place] [address] PCP: Ame Zaragoza CNP PROVIDER INFORMATION Provider Role Assigned Unassigned Sandra Dinh CAMP ATTENDANT Nurse 12/16/2022 11:39:08 Cong Cobian PA-C ED PA 12/16/2022 11:41:06 VITALS INFORMATION Vital Sign Triage Latest Temperature Tympanic Temperature Temporal Artery Pulse Rate O2 Sat 98 % 98 % Respiratory Rate Blood Pressure /78 mmHg /78 mmHg MEDICAL INFORMATION Medications Given: Allergy Information: Tape; Betadine; codeine PHYSICIAN DOCUMENTATION DISCHARGE INFORMATION: Discharge Disposition: Home Discharge Location: Home PATIENT EDUCATION INFORMATION Instructions: Otitis Media, Adult, Rzkh-ya-Rico Follow-Up: With: Address: When: Ame Zaragoza [address] [place] [address] Business (1) Within 1 week Comments: Please follow-up with , call the office schedule an appointment to be seen in a week or sooner for continued care, taking amoxicillin as prescribed, take bwav-rer-andnzwl ibuprofen Tylenol as needed for pain and fever, drink plenty water stay hydrated, and return back to the urgent care center for any worsening symptoms, concerns, or complications. DIAGNOSIS: 1:Left otitis media Patient Understands: Yes - Patient/family/caregi regina verbalizes understanding of instructions given Comment: Normal [facility] ED Patient Summaryon 023 ED Patient Summary [facility] ? Urgent Care [address] [place] [address] [id number] PATIENT DISCHARGE INSTRUCTIONS Patient Information Name: NOBLE CASTILLO Age: 37 Years Date of : 1985 Reason For Visit: UC - Sinus Pain or Congestion; UC - Ear Pain; LT EAR PAIN Arrival Time: 12/16/2022 11:36:50 Primary Care Physician: Ame Zaragoza CNP Attending Physician: Cong Cobian PA-C Comment: Patient Education With: Address: When: Ame Zaragoza [address] [place] [address] [employer] (1) Within 1 week Comments: Please follow-up with , call the office schedule an appointment to be seen in a week or sooner for continued care, taking amoxicillin as prescribed, take bfek-mnu-qitdvme ibuprofen Tylenol as needed for pain and [...] Follow these instructions at home: ? Take umsp-thn-yynkttq and prescription medicines only as told by [...] provider. Document Revised: 01/25/2022 Document Reviewed: 01/25/2022 [employer] Patient Education ? 2021 [employer]. Medication Information: The exam and treatment you received today in the [facility] Emergency Department were for an urgent problem and are not intended as complete care. It is important for you to follow up with a doctor, nurse practitioner, or physician?s kindergarten teacher assistant for ongoing care. If your symptoms [...] Radiologist will (more content not included)... Normal [facility] 023 Urgent Care Record [facility] ? Urgent Care [address] [place] [address] PATIENT DISCHARGE INSTRUCTIONS Patient Information Name: NOBLE CASTILLO Age: 37 Years Date of : 1985 [facility]: [id number] Reason For Visit: UC - Sinus Pain or Congestion; UC - Ear Pain; LT EAR PAIN Arrival Time: 12/16/2022 11:36:50 Primary Care Physician: Ame Zaragoza CNP Attending Physician: Cong Cobian PA-C Comment: Visit Diagnosis: Diagnoses This Visit Left otitis media (H66.92) UC - Ear Pain ([id number]) UC - Sinus Pain or Congestion ([id number]) If you received any narcotics, sedation, or [...] legal documents With: Address: When: Ame Zaragoza [facility] [phone] Business (1) Within 1 week Comments: Please follow-up with , call the office schedule an appointment to be seen in a week or sooner for continued care, taking amoxicillin as prescribed, take jtqk-tlz-otsdhkv ibuprofen Tylenol as needed for pain and fever, drink plenty water stay hydrated, and return back to the urgent care center for any worsening symptoms, concerns, or complications. Medication Information: The exam and treatment you received today in the [facility] were for an urgent problem and are not intended as complete care. It is important for you to follow up with a doctor, nurse practitioner, or physician?s kindergarten teacher assistant for ongoing care. If your symptoms [...] of medications post discharge. Please inform your automation control integrator/provider of your visit and for further instruction on these medications. Any specific questions regarding your chronic medications and dosages should be discussed with your primary care physician(s) and/or pharmacist. New Medications [id number], [address], [place] [id number], [phone] amoxicillin (amoxicillin 500 mg oral capsule) 1 [...] 1 capsule by mouth once daily. rizatriptan (Maxalt-ELEMENTARY CLASSROOM TEACHER 10 mg oral tablet, disintegrating) 1 tab(s) [...] The condition (more content not included)... Normal [facility] ER URINE PROFILEon 2 Bilirubin Ql (U) Negative Normal NEGATIVE [facility] Comment on above: Performed By: #### E RUR #### [facility] [address] [place] [address] Dr. Phong Thayer Clarity (U) CLEAR Normal CLEAR [facility] Comment on above: Performed By: #### E RUR #### [facility] [address] [place] [address] Dr. Phong Thayer Color (U) LT. YELLOW Normal YELLOW [facility] Comment on above: Performed By: #### E RUR #### [facility] [address] [place] [address] Dr. Phong MONTILLA A micrscopic examination will be performed if indicated. Normal [facility] Comment on above: Performed By: #### E RUR #### [facility] [address] [place] [address] Dr. Phong Thayer Glucose Ql (U) Negative Normal NEGATIVE [facility] Comment on above: Performed By: #### E RUR #### [facility] [address] [place] [address] Dr. Phong Thayer Hemoglobin Ql (U) Negative Normal NEGATIVE [facility] Comment on above: Performed By: #### E RUR #### [facility] [address] [place] [address] Dr. Phong Thayer Ketones Ql (U) Negative Normal NEGATIVE [facility] Comment on above: Performed By: #### E RUR #### [facility] [address] [place] [address] Dr. Phong Thayer LEUKOCYTES Negative Normal NEGATIVE [facility] Comment on above: Performed By: #### E RUR #### [facility] [address] [place] [address] Dr. Phong Thayer Nitrite Ql (U) Negative Normal NEGATIVE [facility] Comment on above: Performed By: #### E RUR #### [facility] [address] [place] [address] Dr. Phong Thayer pH (U) 6.5 [pH] Normal 5-9 [facility] Comment on above: Performed By: #### E RUR #### [facility] [address] [place] [address] Dr. Phong Thayer SPEC GRAVITY 1.015 Normal 1.005-<=1.02 5 [facility] Comment on above: Performed By: #### E RUR #### [facility] [address] [place] [address] Dr. Phong Thayer UA PROTEIN Negative Normal NEGATIVE/ TRACE [facility] Comment on above: Performed By: #### E RUR #### [facility] [address] [place] [address] Dr. Phong Thayer UR MICRO IND NOT INDICATED Normal [facility] Comment on above: Performed By: #### E RUR #### [facility] [address] [place] [address] Dr. Phong Thayer Urobilinogen Qn (U) 0.2 {Gilma'U}/dL Normal 0.2 - 1. 0 [facility] Comment on above: Performed By: #### E RUR #### [facility] [address] [place] [address] Dr. Phong Thayer XR LSPINE 2_3 VIEWSon [...] by: DONALD CANNON Date: 2022-10-23 16:28 Normal [facility] Coding Summaryon 10-01-2022 Coding Summary [employer] 64 OqokswzyRPb1lMp+PGhlY WQ+SA5CGYOlN59qyPJtjC 3BF6xOLO2PBRZACGVKOA0 KER2wkVD3RUryD3EzjeQp BtwicOAxTK64MMm4WKN0t JaeHAvpiS4ljJFsB2f1Sf LlKZ78iE62AAnoFTOgBzT 3LjZpbjsgbWFy N1amKsZxsDVbFmu+PHRhY mxlIHdpZHRoPScxMDAlJy TvrLlfQT7iRa2rSERsSOF vbGxhcHNlOiBj s4tfHDUwIZhaTT4jtLwhZ 4SxmOV5PFJxq1i6Oj24uY I+VMOcKYH8nEnzXVmss29 0ErSme9ujZCY0 oPCeKDsrWWN8T10rn1L3M MBwFLEaQNS2sPV5iG7whP wfewjeU8RqkXEcZtZ9CCZ 7rQRubH6pvVhx usormX6vKdp+Q61WTC2FA PNIXL7ACpi8Z2UwGhajdA I+UF36VAXbOP84jTZtbSF sq1vrlJr7EjMt BFSsALY5oSisNYkpb9XcV QYwF67elDGqn0T7ZSJnnE ofuOGsFmEutGH6lD2qCZa mmvrap0ccaost Ghjuj7sjvi21iO94I17nF GkjLGUmRXL1GZAsQMWzlB domz5gnP6qWf9+KOnzx6y vs4pxgNx8ZaGn MWTcjhQfmFrxCOH3w6OjX b86E5XcsBgoz1IdHlr4ip 76sCMfi3W3lRX6XMdeJPU nrW1cXUauSjY6 URByKdWeuF74aXFwLJdxM s4vaMwyiRohUG6vWBFjuc ghFZBcpQ3rZMYmnNCcrZj wET0nHVCfuihs s443SbOnUHC0BABdmYYyJ 5XatR6uLwJdQMVvOWQxY6 FkeVAmTDdmH263BXmuPqC 4LGJzutPzH0Xa PYYbmAfbMfO2d6O1Gu2Cr 4RjtpknWXD5MXikFFCqRj VrVfBeDqP5N1ZmPxh0LGC zzFkoVY7oB0Fc TNRwsmrzhvdwwYK4ISTsN GZyxH01hAIwMYebUf3cf6 F5q472WSQhBMTfiU58Ey3 udDogMTBwdCBU gZ5acmznd0mzmudmOrIgT MShCTx5ETl7VIPigJyvTx DpLWD5IvT1SFC4wOAqoF8 vfHulxvwypN9a Oyc+M08lgG1rMDO8FZQ3z wxgSTSebuTdQP44VY65L1 RyPjwvdGFibGU+PGRpdiB gkDzyUJ5iIpUs c8tie9MtLRzrT3KcHIDgZ WdxJdu7KLLwFAM8sJK3uI 0hEOVtJAqio1P7oIO5C3F qqjIdll6eu6hh MJUtQJlyM31hsKNtd0N5I XPstDO8FOMmgLguHfEfgB 93Oyc+PQHqnMqca1AmXpl zf7ouf5sltKy5 SpCrCHJjndWhlIkwRRE8x 3AfCy85O44pBNlmJCHqIV EkXOTrIWCupDetqd1gtU1 wIi8+PGNvbCB3 vUG8iY6tMMJjReN4MQkzS 966YmEobENhJinrr9tfp1 nbyTp1BcJiAHJvumPmlGb pCLR5x3UwKo99 A22rRKtgUGStZDFhMMGbK RIjnZslnd9zoR7qPz4+PC 0fx4hsvg75vD59yMG+PHR qXOP8fNptMSwg QVVakA9wQQnpRhM6GEHoQ aNtwX69sJKfJRtxSl2bpC xqeTelEB5sWSMsbevqw15 7UhHlu3joCDEn zPCzDLisSLR8B31ec6M5S EAkMQInZAE6gIX5aT2meH lnbjogbGVmdDsgdmVydGl kQYvaDXarR789 IHRvcDsnPlBhdGllbnQgT sXjPJe8E1KwZph4RSOtrZ brHQ6pcUIhGHagEq6kxFm upEjyDE4iRVNz ntvxu099GhEca9iwBYMpo UBmBLjnUGH3M65xa4M2RD MgSLAnSTF5nJU4uB0uwCo nbjogbGVmdDsg tzWyiWjlCNheXFibT086E HRvcDsnPkJpcnRoIERhdG P8XG97SG07iUOqk6G7oLF 7J7OnDLLfzccy zgeeqKA0CNJwYOOgpB42I v9uxQmmJj3xYPCdKAL9GS DtrGRuU1CxdL4jAaSpTTT pVTXvP0DmmRUd FJmcK585KIndRpJ4JXNwq fHnW5UnZJCbiEzvSzI1o4 E9Ls8ZN8W6DH69EL87oPZ wy5W1kNO5Y4Qh GSOoaetekrczpPF8NKUpU QKepS87Up9wtBhkNc7uVN ZzJDM0AKYosVJpA9HdqI0 yOiAjMDAwMDAw T2PxpQLeFSobL050DCieY fY0SWVsstJiP7ClMLRktM iuDwI5j1A5Ra3VMDq7ZW5 6UQ82kCSna4K9 fTU8L0WxLYAjhoznnuqbx MF6KNYrLUBonB92Zl4mvX ayGf0hPNMoJHF5OJVllGW qJ8OdmF7oQfBy BWHtVBCzI2JulCOdXYroD 529SLjbEqV3WQLrttGsR3 ZkPQHxbFiuAyK5k7F0Gg0 VDKAwCC37HIE5 oJA7OP49JL96M0BgBamfs GFibGU+PHRhYmxlIHdpZH RoPScxMDAlJyBzdHlsZT0 vEu6kWTVeIWWt hZzhzNOzTvGcv7vyKJJbQ LcaBJ8twDyiS3AikCJ9ZT Opf9x5Nj16D65tH9SljWD +EKQuqIS3vDB4 oE2uJkKoVvB3FNakY668Z rIqcFPrNagtl9hzc5vtlD c2PiD5EOPyxzJgeFqbWKA 0m5ZfJs26F95l IHdpZHRoPSIxNSUiIHZhb Jnloo0ihV0lIe7+PGNvbC E1iOT8bB0tUfLfFkS0ZNo gM606HaSefEDd Bjgel0fsp9yieJr0ZiGkS BPsfjKtnXatAXC8h3OcTk 04H2FooSsfz6UxKlq6mf2 2tXFcr1K0mPZ2 P4FsBWYftbgoyKEksUseX J2iFOXikxmfDNEaoW5eIT TsN0g0ZiYwVmX7PMenX1P ifqV1LTGpvWHa SWpgLTY4B49sx2F5XZDnC BFpNGC3aPX0oF9pfVxhvp ogbGVmdDsgdmVydGljYWw rQBlrH401PKOm lUoxLHErtS6mNLBowPKwq XpbQC3aLMMebvdlXmfMNU 5HLCBLUklTVElOQSBFTEF NMtQ9W0FvZjr8 VRQztCxoWB8ntJPoWKewF a9uwJhnvWmlGE0yBXFaqv dqQFBizJ8fMJGqwVPdeNt lJV6cCVZzwjgi g573FhYnKKX0CDHpdLIcY 7VjhK2cEsDkVSQjWHWxT4 OwjORzTMpmB201MTktSyT 4XLLxcgEoG0Gc RTPokEihTxK0r9Y0Ly5nM u8jHC3nTTx9FM82IB37yY Ylh5I8gHM3K2TaFAWhjwx gsayhoZV1KIMb VGVezN26zSAnVYvjEw4vv 2K1s215YSErRAUohO15Sw 1enJyyFAEszCJCnZ3iaho ao8vslazvYeCm EJJyDUj3JMg9MVAkwIwqF rKtQHO3EiH3UOH6bHLpbH 4vyPgptgpzlS5iWfl+MzY vVPDjcvM0B3Yp Mqe6SIZabDjpMC1dfFCuJ YkqKm6pfQqlnAjbDK4dRT NbbnwxDONahC3wPOOyjUK zkMssNG7mEZBh ayxgh031HcSlFLH6QIVfs IUtO3DtwZ3zNcWdNEIaPG VkP9GdwKUuZGooU653PHl eOfJ6SNTmaoId E3KbETSeyXzjJvE2w3C8I y4IKE9YICU3U1XgCwz2SY EmuNaeFU8bsZQoRKwnZz9 krQuctBdiNS5a TUVpokjiNNZneC4gXGVrz TQmcPfqOD4kIEPsxrgwt1 32MgQqIUD0CSQsmCHfU3Q bxW6rLkKsCKLy UKUcK6NuiQGpJMhtG202H EmtXnV2ZZMgecTgP0ItIQ GqvWsbMlM9c1K3Ne7DTVk vdGQ+CP19sf50 V8JwAiynJih2OCJqKFX9o HB2mD7zPERmKRnja8N6gC D5H7EpjiJmnj3fg2thPJY wAPykB80urQNp a7A0FXXetZK2QRFasAhaY sUsaW50Syo+PGNvbGdyb3 VfPclen8jkg2zdyDa7SuI wJSIgdmFsaWdu DTK3d6KkFr60Y47lHWwhM HRoPSIzMCUiIHZhbGlnbj 5esX3yYv0+BHCslFJ9iDC 4oM2kZcHwVuQ9 HHmoZ078RcSvpSVcGdawj 6ppw4ynmQd2PwGhFRPssh EfqVnhTVN9j8TaLm38H5M djKtey3XvIvn2 ec35kRXzk9W5sHM3V4ByD ASvrlpseRJohLjiPN6rVB RgpwcjTLGcmN2gISYhO4i 3FnGeDbJ4YGyz X7UlskG9RXPzuQHsOCGzn UCOdY1xvtzfu2naaeouMu GhUGElNOn6VBt8URMxdJh pZkXpFYB9FyG3 PPF9fZQkqK9caWdbsntol G9wOyc+ZMn8p5slhKMqLY 3tlEJ8BW62JU21pNZwv7K 3mSX5P8VdVIFf qnbxaowlcKJ7MKPyJPFig X20Vv4awEquYh8dVBVsTO P2NAKkmIXwG5EvqC2cVlA kGZWfAEYvM9Ef dQPmNIuvO218ZQepRhS6S EYlcaTlC6KpUCHjfFogZs Y5s1P1Oh6MYM22LF65QU7 9wEMzz3L3vMQ9 R5MpMYDakeuifieziWC1H DJkTFThfX75De1buGstPr 7uKARgVWF8GGPelZYhD9A ukZ4zIlEfYORh XBAbH9FfzHVbJFabU134I GwkVmD9UHEcqaLoW8TqBU PbeVezAsI9k0O4Ts5CTd8 8XP50XT74nQDe z6C3aDN2C4KoGYUdsrbsq zpqxXD1RKVmZHXgpK76Fa 4gpAluZe4pXRTyVER7VCY bfNYdZ6ErxV8c FpKoVNXtRBRsL5PexZWvZ ImwM539HIhvLeG9EAAkhf MoN2OyTEDhtUulVoK3n6T 4Ln2XELlphvz6 B1NoYdxlmKA+UJ48DZHiE C38mYYmkCPne8amxRd6Bk TgRTPfCFW3hUnuYBmfo8Q jDPUjO96jnBNi c2U (more content not included)... Normal [facility] Outside Recordson 09-30-2022 Outside Records [id number]#1. 00OTGTIFF [facility] ED Clinical Summaryon 2021 ED Clinical Summary [facility] ? Urgent Care [address] [place] [id number] Clinical Summary PERSON INFORMATION Name: NOBLE CASTILLO Age: 37 Years Sex: FEMALE : 1985 MRN: Acct#: Visit Reason: Medical screening exam; [employer] Arrival: 09/29/2022 10:32:28 Discharge: 09/29/2022 11:15:00 LOS: 000 00:43 Check In: 09/29/2022 10:32:28 Checkout: 09/29/2022 11:15:00 Address: [address] [place] [address] PCP: Ame Zaragoza CNP PROVIDER INFORMATION Provider [...] regina verbalizes understanding of instructions given Comment: [facility] ED Patient Summaryon 022 ED Patient Summary [facility] ? Urgent Care [address] [place] [address] PATIENT DISCHARGE INSTRUCTIONS Patient Information Name: NOBLE CASTILLO Age: 37 Years Date of : 1985 Reason For Visit: Medical screening exam; [employer] Arrival Time: 09/29/2022 10:32:28 Primary Care Physician: Ame Zaragoza CNP Attending Physician: Finney, Abhi L PA-C Comment: Patient Education Medication Information: The exam and treatment you received today in the [facility] Emergency Department were for an urgent problem and are not intended as complete care. It is important for you to follow up with a doctor, nurse practitioner, or physician?s kindergarten teacher assistant for ongoing care. If your symptoms [...] so we can reach you if necessary. [facility] Emergency Department has provided you with a complete list of medications post discharge. Please inform your automation control integrator/provider of your visit and for further instruction [...] capsule) 1 cap(s) Oral every day. rizatriptan (Maxalt-ELEMENTARY CLASSROOM TEACHER 10 mg oral tablet, disintegrating) 1 tab(s) [...] Diagnosis: Diagnoses This Visit Medical screening exam ([phone]) If you received any narcotics, sedation, or [...] the Ans (more content not included)... Normal [facility] Urgent Care Note- Provideron 09-29-2022 Urgent Care [...] tab(s), PO, Daily, 28 tab(s), 0 Refill(s) Maxalt-ELEMENTARY CLASSROOM TEACHER 10 mg oral tablet, disintegratin mg = [...] selected or recorded.. Surgical history: Diagnostic laparoscopy ([id number]) on 07/24/2019 at 34 Years. Tonsillectomy and adenoidectomy ([id number]). Lump ([id number]). Comments: 07/16/2019 11:30 Arabella Day RN left axilla Cholecystectomy ([id number]). Keloid of skin ([id number]). Comments: 07/16/2019 11:31 Arabella Day RN left ear Foot ([id number]). Comments: 07/16/2019 11:32 Arabella Day RN titanium implant left ankle Dilatation and curettage ([id number]). Tooth extraction, multiple ([id number]). Comments: 07/16/2019 11:33 Arabella Day RN wisdom Sinus ([id number]). Comments: 07/16/2019 11:33 Arabella Day RN x2 Colonoscopy ([id number]). Esophagogastroduodeno scopy ([id number]).. Family history: No family history items have [...] on: 09/29/2022 11:09 EST] Abhi Finney PA-C [facility] [place] 022 Urgent Care Record [facility] ? Urgent Care [address] [place] [address] PATIENT DISCHARGE INSTRUCTIONS Patient Information Name: NOBLE CASTILLO Age: 37 Years Date of : 1985 Reason For Visit: Medical screening exam; [employer] Arrival Time: 09/29/2022 10:32:28 Primary Care Physician: Ame Zaragoza CNP Attending Physician: Abhi Finney PA-C Comment: Visit Diagnosis: Diagnoses This Visit Medical screening exam ([id number]) If you received any narcotics, sedation, or [...] received today in the [facility] were for an urgent problem and are not intended as complete care. It is important for you to follow up with a doctor, nurse practitioner, or physician?s kindergarten teacher assistant for ongoing care. If your symptoms [...] so we can reach you if necessary. [facility] has provided you with a complete list of medications post discharge. Please inform your automation control integrator/provider of your visit and for further instruction [...] capsule) 1 cap(s) Oral every day. rizatriptan (Maxalt-ELEMENTARY CLASSROOM TEACHER 10 mg oral tablet, disintegrating) 1 tab(s) [...] Disease Control and Prevention July 2014 Normal [facility] T3, TOTAL (TRIIODOTHYRONINE) on 09-16-2022 T3, TOTAL 132 ng/dL Normal 71-180 [facility] Comment on above: Performed By: #### T 3TOTAL ####[facility] [address], [place] [address]OkDr. Phong Thayer CBC AUTO DIFFon 09-15-2022 BASO # 0.0 103/ul Normal 0.0-0.1 [facility] Comment on above: Performed By: #### C BC #### [facility] [address], [place] [address] Dr. Phong Thayer Basophils/100 WBC (Bld) 0.3 % Normal 0.2-2.0 [facility] Comment on above: Performed By: #### C BC #### [facility] [address] [place] [address] Dr. Phong Thayer EO # 0.1 103/ul Normal 0.0-0.7 [facility] Comment on above: Performed By: #### C BC #### [facility] [address] [place] [address] Dr. Phong Thayer Eosinophils/100 WBC (Bld) 0.8 % Critically low 0.9-7.0 [facility] Comment on above: Performed By: #### C BC #### [facility] [address] [place] [address] Dr. Phong Thayer Erythrocyte distribution width (RBC) [Ratio] 12.5 % Normal 11.0-15.0 [facility] Comment on above: Performed By: #### C BC #### [facility] [address] [place] [address] Dr. Phong Thayer Hematocrit (Bld) [Volume fraction] 42.2 % Normal 36.0-48.0 [facility] Comment on above: Performed By: #### C BC #### [facility] [address] [place] [address] Dr. Phong Thayer Hemoglobin (Bld) [Mass/Vol] 14.3 g/dL Normal 12.0-16.0 [facility] Comment on above: Performed By: #### C BC #### [facility] [address] [place] [address] Dr. Phong Thayer IG # 0.01 10e3/ul Normal 0.00-0.03 [facility] Comment on above: Performed By: #### C BC #### [facility] [address] [place] [address] Dr. Phong Thayer IG % 0.1 % Normal 0.0-0.5 [facility] Comment on above: Performed By: #### C BC #### [facility] [address] [place] [address] Dr. Phong Thayer LYMPH # 2.5 103/ul Normal 1.2-3.8 [facility] Comment on above: Performed By: #### C BC #### [facility] [address] [place] [address] Dr. Phong Thayer Lymphocytes/100 WBC (Bld) 33.7 % Normal 20.5-60.0 [facility] Comment on above: Performed By: #### C BC #### [facility] [address] [place] [address] Dr. Phong Thayer MANUAL DIFF REQ NO Normal [facility] Comment on above: Performed By: #### C BC #### [facility] [address] [place] [address] Dr. Phong Thayer MCH (RBC) [Entitic mass] 29.1 pg Normal 26.7-34.0 [facility] Comment on above: Performed By: #### C BC #### [facility] [address] [place] [address] Dr. Phong Thayer MCHC (RBC) [Mass/Vol] 33.9 g/dL Normal 29.9-35.2 [facility] Comment on above: Performed By: #### C BC #### [facility] [address] [place] [address] Dr. hPong Thayer MCV (RBC) [Entitic vol] 85.9 fL Normal 81.0-99.0 [facility] Comment on above: Performed By: #### C BC #### [facility] [address] [place] [address] Dr. Phong Thayer MONO # 0.4 103/ul Normal 0.3-0.8 [facility] Comment on above: Performed By: #### C BC #### [facility] [address] [place] [address] Dr. Phong Thayer Monocytes/100 WBC (Bld) 5.3 % Normal 1.7-12.0 [facility] Comment on above: Performed By: #### C BC #### [facility] [address] [place] [address] Dr. Phong Thayer NEUT # 4.5 103/ul Normal 1.4-6.5 [facility] Comment on above: Performed By: #### C BC #### [facility] [address] [address] [address] Phong Thayer Neutrophils/100 WBC (Bld) 59.8 % Normal 43.0-75.0 [facility] Comment on above: Performed By: #### C BC #### [facility] [address] [place] [address] Dr. Phong Thayer Platelet mean volume (Bld) [Entitic vol] 10.2 fL Normal 9.5-13.5 [facility] Comment on above: Performed By: #### C BC #### [facility] [address] [address] [address] Phong Thayer PLT 227 103/ul Normal 150-450 [facility] Comment on above: Performed By: #### C BC #### [facility] [address] [place] [address] Dr. Phong Thayer RBC 4.91 106/ul Normal 4.20-5.40 [facility] Comment on above: Performed By: #### C BC #### [facility] [address] [address] [address] Phong Thayer WBC 7.5 103/ul Normal 4.0-11.0 [facility] Comment on above: Performed By: #### C BC #### [facility] [address] [address] [address] Phong Thayer FREE THYROXINE INDEX T7on FTI 2.37 Normal 1.30-4.50 [facility] Comment on above: Performed By: #### T SH, T4, T7, CMP #### [facility] [address] [place] [address] Dr. Phong Thayer T3U 32.0 % Normal 30.0-39.0 [facility] Comment on above: Performed By: #### T SH, T4, T7, CMP #### [facility] [address] [address] [address] Phong Thayer LIPID PROFILEon 09-15-2022 CHOL-HDL RATIO NORM SEE BELOW Normal [facility] Comment on above: Result Comment: 3.3 - 4.4 LOW RISK 4.4 - 7.1 AVERAGE RISK 7.1 - 11.0 MODERATE RISK >11.0 HIGH RISK Performed By: #### L IPID ####[facility] [address] [id number]. Phong Thayer Cholesterol [Mass/Vol] 163 mg/dL Normal <=200 [facility] Comment on above: Performed By: #### L IPID ####[facility] [address] [place], [place] [address]Mm. Phong Thayer Cholesterol in HDL [Mass/Vol] 57 mg/dL Normal 40-60 [facility] Comment on above: Performed By: #### L IPID ####[facility] [address] [id number]. Phong Thayer Cholesterol in LDL [Mass/Vol] 69.8 mg/dL Normal [facility] Comment on above: Performed By: #### L IPID ####[facility] [address] [id number]. Sherijose Jeovany Cholesterol.total/Cho lesterol in HDL [Mass ratio] 2.9 {ratio} Normal [facility] Comment on above: Performed By: #### L IPID ####[facility] [address] [id number]. Phong Jeovany HDL NORMAL > or = 60 mg/dl - LO W CARDIOVASCULAR RISK <40 mg/dl - HIGH CARDIOVASCULAR RISK Normal [facility] Comment on above: Performed By: #### L IPID ####[facility] [address] [id number]. Sherijose Thayer LDL CALC NORMAL SEE BELOW Normal [facility] Comment on above: Result Comment: <100 mg/dl OPTIMAL 100 - 129 mg/dl NEAR OR ABOVE OPTIMAL 130 - 159 mg/dl BORDERLINE HIGH 160 - 189 mg/dl HIGH >190 mg/dl VERY HIGH Performed By: #### L IPID ####[facility] [address] [id number]. Phong Thayer Triglyceride [Mass/Vol] 181 mg/dL Critically high <=150 [facility] Comment on above: Performed By: #### L IPID ####[facility] [address] [address]Dr. Phong Thayer VLDL CALC 36.2 mg/dL Normal [facility] Comment on above: Performed By: #### L IPID ####[facility] [address] [address]Dr. Phong Thayer PROF 14(COMP METB)on 09-15- 022 Albumin [Mass/Vol] 3.6 g/dL Normal 3.4-5.0 [facility] Comment on above: Performed By: #### T SH, T4, T7, CMP #### [facility] [address] [address] [address] Phong Thayer Albumin/Globulin [Mass ratio] 1.0 {ratio} Normal [facility] Comment on above: Performed By: #### T SH, T4, T7, CMP #### [facility] [address] [place] [address] Dr. Phong Thayer ALP [Catalytic activity/Vol] 90 U/L Normal 46-116 [facility] Comment on above: Performed By: #### T SH, T4, T7, CMP #### [facility] [address] [address] [address] Phong Thayer ALT [Catalytic activity/Vol] 27 U/L Normal 14-59 [facility] Comment on above: Performed By: #### T SH, T4, T7, CMP #### [facility] [address] [address] [address] Phong Thayer Anion gap [Moles/Vol] 14.2 mmol/L Normal [facility] Comment on above: Performed By: #### T SH, T4, T7, CMP #### [facility] [address] [address] [address] Phong Thayer AST [Catalytic activity/Vol] 13 U/L Critically low 15-37 [facility] Comment on above: Performed By: #### T SH, T4, T7, CMP #### [facility] [address] [address] [address] Phong Thayer Bilirubin [Mass/Vol] 0.2 mg/dL Normal 0.2-1.0 [facility] Comment on above: Performed By: #### T SH, T4, T7, CMP #### [facility] [address] [address] [address] Phong Thayer Calcium [Mass/Vol] 9.0 mg/dL Normal 8.5-10.1 [facility] Comment on above: Performed By: #### T SH, T4, T7, CMP #### [facility] [address] [place] [address] Dr. Phong Thayer Chloride [Moles/Vol] 103 mmol/L Normal 98-107 [facility] Comment on above: Performed By: #### T SH, T4, T7, CMP #### [facility] [address] [place] [address] Dr. Phong Thayer CO2 [Moles/Vol] 23.9 mmol/L Normal 21.0-32.0 [facility] Comment on above: Performed By: #### T SH, T4, T7, CMP #### [facility] [address] [place] [address] Dr. Phong Thayer Creatinine [Mass/Vol] 0.76 mg/dL Normal 0.55-1.02 [facility] Comment on above: Performed By: #### T SH, T4, T7, CMP #### [facility] [address] [place] [address] Dr. Phong Thayer EGFR-AF ITALIAN >60 Normal >=60 [facility] Comment on above: Performed By: #### T SH, T4, T7, CMP #### [facility] [address] [place] [address] Dr. Phong Thayer EGFR-NON AF ITALIAN >60 Normal >=60 [facility] Comment on above: Performed By: #### T SH, T4, T7, CMP #### [facility] [address] [place] [address] Dr. Phong Thayer Globulin (S) [Mass/Vol] 3.6 g/dL Normal [facility] Comment on above: Performed By: #### T SH, T4, T7, CMP #### [facility] [address] [place] [address] Dr. Phong Thayer Glucose [Mass/Vol] 95 mg/dL Normal 74-106 [facility] Comment on above: Performed By: #### T SH, T4, T7, CMP #### [facility] [address] [place] [address] Dr. Phong Thayer Potassium [Moles/Vol] 4.1 mmol/L Normal 3.5-5.1 [facility] Comment on above: Performed By: #### T SH, T4, T7, CMP #### [facility] [address] [place] [address] Dr. Phong Thayer Protein [Mass/Vol] 7.2 g/dL Normal 6.4-8.2 [facility] Comment on above: Performed By: #### T SH, T4, T7, CMP #### [facility] [address] [place] [address] Dr. Phong Thayer Sodium [Moles/Vol] 137 mmol/L Normal 136-145 [facility] Comment on above: Performed By: #### T SH, T4, T7, CMP #### [facility] [address] [place] [address] Dr. Phong Thayer Urea nitrogen [Mass/Vol] 13.0 mg/dL Normal 7.0-18.0 [facility] Comment on above: Performed By: #### T SH, T4, T7, CMP #### [facility] [address] [place] [address] Dr. Phong Thayer Urea nitrogen/Creatinine [Mass ratio] 17.1 mg/mg Normal [facility] Comment on above: Performed By: #### T SH, T4, T7, CMP #### [facility] [address] [place] [address] Dr. Phong Thayer T4on 09-15-2022 T4 [Mass/Vol] 7.40 ug/dL Normal 4.80-13.90 [facility] Comment on above: Performed By: #### T SH, T4, T7, CMP #### [facility] [address] [place] [address] Dr. Phong Thayer TSHon 09-15-2022 TSH 2.515 uIU/mL Normal 0.358-3.740 [facility] Comment on above: Performed By: #### T SH, T4, T7, CMP #### [facility] [address], [place] [address] Dr. Phong Thayer VITAMIN B12on 09-15-2022 Cobalamin (Vitamin B12) [Mass/Vol] 423.0 pg/mL Normal 193.0-986.0 [facility] Comment on above: Performed By: #### V ITCLAIRE, VITB12 ####[facility] [address] [id number] Thayer VITAMIN D 25 OHon 09-15-2022 VIT D 25-OH 28.3 ng/mL Normal [facility] Comment on above: Performed By: #### V ITCLAIRE, VITB12 ####[facility] [address] [place], [place] [address]Uh. Phong Thayer VIT D RANGES SEE BELOW Normal [facility] Comment on above: Result Comment: <20 ng/mL Vit D deficient 20 - <30 ng/mL Vit D insufficient 30 - 100 ng/mL Vit D sufficient >100 ng/mL Potential Toxicity Performed By: #### V ITCLAIRE, VITB12 ####[facility] [address] [address]DrAnnalee Thayer A1C HEMOGLOBINon 09-02-2022 HbA1c (Bld) [Mass fraction] 5.1 % [employer] Other HbA1c (Bld) [Mass fraction]o n 09-02-2022 A1C HEMOGLOBIN [facility] Other Lab - Reference Lab Resultso n 07-19-2022 Lab - Reference Lab Results [id number] 0OTGTIFF Normal [facility] T-Spoton 07-16-2022 T-Spot See Report Normal [facility] Comment on above: Performed By: #### 5 [id number], [id number] ####[facility] (DEFAULT)[address] [place] [address] HBSab Qnt LCon 07-14-2022 Hep B Surf Ab Quant LC 301.3 mIU/mL Invalid Interpretation Code Immunity>9.9 [facility] Comment on above: Result Comment: Stat us of Immunity Anti-HBs Level Inconsistent with Immunity 0.0 - 9.9 Consistent with Immunity >9.9 Performed At: [address] [id number] Pancho Higgins PhD Ph:[phone] Performed By: #### 5 [id number] ####[facility] (DEFAULT)[address] [place] [address] Lab - Toxicology Resultson 0 07-14-2022 Lab - Toxicology Results [id number] 0OTGTIFF Normal [facility] Measles/Mumps/Rubella Immuni ty on 07-14-2022 Mumps Abs, IgG LC 38.4 AU/mL Invalid Interpretation Code Immune >10.9 [facility] Comment on above: Result Comment: Nega tive <9.0 Equivocal 9.0 - 10.9 Positive >10.9 A positive result generally indicates past exposure to Mumps virus or previous vaccination. Performed At: [address] [id number] Pancho Higgins PhD Ph:[phone] Performed By: #### 5 [id number] ####[facility] (DEFAULT)[address] [place] [address] Rubella Antibodies, IgG LC 5.78 index Invalid Interpretation Code Immune >0.99 [facility] Comment on above: Result Comment: Non- immune <0.90 Equivocal 0.90 - 0.99 Immune >0.99 Performed By: #### 5 [id number] ####[facility] (DEFAULT)[address] [place] [address] Rubeola Ab, IgG, EIA LC 72.4 AU/mL Invalid Interpretation Code Immune >16.4 [facility] Comment on above: Result Comment: Nega tive <13.5 Equivocal 13.5 - 16.4 Positive >16.4 Presence of antibodies to Rubeola is presumptive evidence of immunity except when acute infection is suspected. Performed By: #### 5 [id number] ####[facility] (DEFAULT)[address] [place] [address] Nicotine Metabolite, Urine L Con 07-14-2022 Cotinine LC Negative Invalid Interpretation Code [id number] [facility] Comment on above: Result Comment: Perf ormed At: [facility] [place] [address] [place], [place] [id number] Mark Puentes PhD Ph:[phone] Performed By: #### 1 [id number] ####[facility] (DEFAULT)[address] [place] [address] XR FOOT AIDA MIN 3 VIEWSon XR [...] COATS Date: 2022-07-07 13:58 Normal [facility] Urine culture routineOrdered By: AME ZARAGOZA on 05-27-2022 Bacteria identified Cx Nom (U) Staphylococcus saprophyticus [facility] Urinalysis - AUTOMATEDon Appearance (U) clear [employer] Other Bilirubin Ql (U) Negative [employer] Other Color (U) lt. yellow [employer] Other Glucose Ql (U) Negative [employer] Other Hemoglobin Ql (U) moderate [employer] Other Ketones Ql (U) Negative [employer] Other Leukocyte esterase Test strip Ql (U) small [employer] Other Nitrite Ql (U) Negative [employer] Other pH (U) 6.0 [pH] [employer] Other Protein Ql (U) Negative [employer] Other Specific gravity (U) [Rel density] 1.010 [employer] Other Urobilinogen (U) [Mass/Vol] 0.2 mg/dL [employer] Other Urinalysis - AUTOMATED [employer] Other Urine Cultureon 05-24-2022 Bacteria identified Cx Nom (U) [employer] Other XR hand LT min 3V*on 021 XR hand LT min 3V* [facility] [employer] Other XR hand LT min 3V* [facility] [place] [employer] Other XR hand LT min 3V* [address] [place] [address] [employer] Other XR hand LT min 3V* [place] [address] [employer] Other XR hand LT min 3V* XRay Report [employer] Other XR hand LT min 3V* Signed [employer] Other XR hand LT min 3V* Patient: Noble Castillo MR#: [id number] [employer] Other XR hand LT min 3V* 7804 [employer] Other XR hand LT min 3V* : 1985 Acct:[id number] [employer] Other XR hand LT min 3V* Age/Sex: 36 / F ADM Date: 10/02/21 [employer] Other XR hand LT min 3V* Loc: XDUCLY Room: Type: [facility] [employer] Other XR hand LT min 3V* Attending Dr: Sera ALFORD [employer] Other XR hand LT min 3V* Ordering Provider: PRASHANTH Jordan [employer] Other XR hand LT min 3V* Date of Service: 10/02/21 [employer] Other XR hand LT min 3V* XR/XR hand LT min 3V*: Finger pain, left [employer] Other XR hand LT min 3V* Copies to: PRASHANTH Jordan [employer] Other XR hand LT min 3V* 3 viewsLEFT hand plain film [employer] Other XR hand LT min 3V* COMPARISON:None [facility] Other XR hand LT min 3V* HISTORY:LEFT hand injury [employer] Other XR hand LT min 3V* No fracture, dislocation or focal soft tissue abnormality seen. [employer] Other XR hand LT min 3V* XR/XR hand LT min 3V* [employer] Other XR hand LT min 3V* IMPRESSION:No acute findings [employer] Other XR hand LT min 3V* Impression dictated by: Fuad Swain M.D.10/02/2021 6:01 PM [employer] Other XR hand LT min 3V* Dictation Location: [place] [address] [employer] Other XR hand LT min 3V* Transcribed By: PWS 10/02/21 1801 [employer] Other XR hand LT min 3V* Dictated By: Fuad Swain DO 10/02/21 1759 [employer] Other XR hand LT min 3V* Signed By: [employer] Other XR hand LT min 3V* 10/02/21 1801 [facility] [employer] Other Automated basophil %on 11-25 Basophils/100 WBC (Bld) 1.0 % [facility] Automated basophil counton 0 11-25-2020 Basophils (Bld) [#/Vol] 0.1 10*3/uL 0.0-0.2 [facility] Automated blood lymphocyte c ount (number/volume)on 11-25-2020 Lymphocytes (Bld) [#/Vol] 2.2 10*3/uL 1.00-4.8 [facility] [employer] Automated blood lymphocyte c ount as percentage of total leukocyteson 11-25-2020 Lymphocytes/100 WBC (Bld) 29.2 % [facility] Automated blood monocyte cou nton 11-25-2020 Monocytes (Bld) [#/Vol] 0.4 10*3/uL 0.0-0.8 [facility] Automated blood platelet cou nt (count/volume)on 11-25-2020 Platelets (Bld) [#/Vol] 247 10*3/uL 150-450 [facility] Automated blood platelet ton n volume measurementon 11-25-2020 Platelet mean volume (Bld) [Entitic vol] 8.8 fL 6.3-10.7 [facility] Automated eosinophil %on Eosinophils/100 WBC (Bld) 1.1 % [facility] Automated eosinophil counton 11-25-2020 Eosinophils (Bld) [#/Vol] 0.1 10*3/uL 0.0-0.45 [facility] Automated erythrocyte distri bution width ratioon 11-25-2020 Erythrocyte distribution width (RBC) [Ratio] 13.3 % 11.9-15.3 [facility] Automated erythrocyte mean c orpuscular hemoglobin (mass per erythrocyte)on 11-25-2020 MCH (RBC) [Entitic mass] 29.2 pg 24.7-34.3 [facility] Automated erythrocyte mean c orpuscular hemoglobin concentration measurement (mass/volon 11-25-2020 MCHC (RBC) [Mass/Vol] 33.6 g/dL 32.0-35.0 [facility] Automated erythrocyte mean c orpuscular volumeon 11-25-2020 MCV (RBC) [Entitic vol] 87.0 fL 80-100 [facility] Automated monocyte %on 11-25 Monocytes/100 WBC (Bld) 5.4 % [facility] Automated neutrophil %on Neutrophils/100 WBC (Bld) 63.3 % [facility] Blood erythrocytes automated count (number/volume)on 11-25-2020 RBC (Bld) [#/Vol] 4.64 10*6/uL 3.60-5.00 [facility] Blood hemoglobin measurement (mass/volume)on 11-25-2020 Hemoglobin (Bld) [Mass/Vol] 13.6 g/dL 11.8-15.4 [facility] Blood leukocytes automated c ount (number/volume)on 11-25-2020 WBC (Bld) [#/Vol] 7.7 10*3/uL 3.8-11.6 [facility] Blood neutrophil count by au tomated method (number/volume)on 11-25-2020 Neutrophils (Bld) [#/Vol] 4.9 10*3/uL 1.8-7.7 [facility] COVID-19 Positive/Negativeon 11-25-2020 COVID-19 Positive/Negative Negative Negative [facility] Comment on above: Testing for SARS-CoV -2 by RT-PCRThis test was developed and its performance characteristics determined by [employer] ([employer]) and validated at the [facility]. This test has not been FDA [...] among non-blacks MDRD (S/P/Bld) [Vol rate/Area] mL/min/{1.73_m2} [facility] Hematocrit [Volume Fraction] of Blood by Automated counton 11-25-2020 Hematocrit (Bld) [Volume fraction] 40.4 % 34.0-46.4 [facility] Otheron 11-25-2020 Coronavirus 2019 PCR Interp N/A [facility] GFR/1.73 sq M.predicted MDRD (S/P/Bld) [Vol rate/Area] mL/min/{1.73_m2} [facility] Comment on above: GFR estimated refere nce range: According to KDOQI guidelines, <60 ml/min/1.73m2 is sufficient to diagnose a patient with chronic kidney disease. Nucleated RBC/100 WBC (Bld) [Ratio] 0.0 % 0-0.5 [facility] Creatinine Clearance (Chem N/A [facility] Serum or plasma calcium eleni urement (mass/volume)on 11-25-2020 Calcium [Mass/Vol] 9.3 mg/dL 8.2-10.2 [facility] Serum or plasma chloride ton surement (moles/volume)on 11-25-2020 Chloride [Moles/Vol] 104 mmol/L 95-114 [facility] Serum or plasma creatinine m easurement with calculation of estimated glomerular filtron 11-25-2020 Creatinine [Mass/Vol] 0.76 mg/dL 0.44-1.03 [facility] Serum or plasma glucose eleni urement (mass/volume)on 11-25-2020 Glucose [Mass/Vol] 96 mg/dL 70-100 [facility] Comment on above: ADA recommended refe rence rangeRandom Glucose Reference Range is dependent on time and content of last meal. Glucose of more than 200 mg/dL in a nonstressed, ambulatory subject supports the diagnosis of Diabetes Mellitus. Serum or plasma potassium me asurement (moles/volume)on 11-25-2020 Potassium [Moles/Vol] 4.1 mmol/L 3.5-5.1 [facility] Serum or plasma sodium measu rement (moles/volume)on 11-25-2020 Sodium [Moles/Vol] 138 mmol/L 136-146 [facility] Serum or plasma total carbon dioxide measurement (moles/volume)on 11-25-2020 CO2 [Moles/Vol] 24.6 mmol/L 22.0-30.0 [facility] Serum or plasma urea nitroge n measurement (mass/volume)on 11-25-2020 Urea nitrogen [Mass/Vol] 6 mg/dL 9-23 [facility] COVID-19 SOFIAon 10-27-2020 COVID-19 MINERVA Negative Negative [facility] Comment on above: This is a duplicate test result based off of the Minerva SARS Antigen (LIZ) test performed within the Microbiology department. Otheron 10-27-2020 SARS Antigen (LFIA) [facility] Albumin [Mass/volume] in Ser um or Plasmaon 09-12-2020 Albumin [Mass/Vol] 3.9 g/dL 3.2-5.5 [facility] Cholesterol [Mass/volume] in Serum or Plasmaon 09-12-2020 Cholesterol [Mass/Vol] 175 mg/dL 140-200 [facility] Comment on above: Chol less than 200 m g/dl low riskChol 201-239 mg/dl borderline riskChol 240 mg/dl and greater high risk Cholesterol in LDL [Mass/vol ume] in Serum or Plasma by calculationon 09-12-2020 Cholesterol in LDL [Mass/Vol] 74 mg/dL 0-100 [facility] Comment on above: LDL ATP III CLASSIFI CATIONLDL less than 100 mg/dL OptimalLDL 100-129 mg/dL Near or above optimalLDL 130-159 mg/dL Borderline highLDL 160-189 mg/dL HighLDL greater than 189 mg/dL Very high Cholesterol in VLDL [Mass/vo lume] in Serum or Plasma by calculationon 09-12-2020 Cholesterol in VLDL [Mass/Vol] 44 mg/dL [facility] Estimated glomerular filtrat ion rate (GFR) non- Americanon 09-12-2020 GFR/1.73 sq M predicted among non-blacks MDRD (S/P/Bld) [Vol rate/Area] mL/min/{1.73_m2} [facility] Metabolic Panelon 09-12-2020 Glucose [Mass/Vol] 81 mg/dL 70-100 [facility] Otheron 09-12-2020 GFR/1.73 sq M.predicted MDRD (S/P/Bld) [Vol rate/Area] mL/min/{1.73_m2} [facility] Comment on above: GFR estimated refere nce range: According to KDOQI guidelines, <60 ml/min/1.73m2 is sufficient to diagnose a patient with chronic kidney disease. Pharmacy Creatinine Clearance (Chem N/A [facility] Protein [Mass/volume] in Ser um or Plasmaon 09-12-2020 Protein [Mass/Vol] 6.5 g/dL 6.1-7.9 [facility] Serum globulin measurement b y calculation (mass/volume)on 09-12-2020 Globulin (S) [Mass/Vol] 2.6 g/dL [facility] Serum or plasma alanine rizvi otransferase measurement without P-5'-P (enzymatic activion 09-12-2020 ALT No additional P-5'-P [Catalytic activity/Vol] 22 U/L 10-60 [facility] Serum or plasma albumin/glob ulin mass ratioon 09-12-2020 Albumin/Globulin [Mass ratio] 1.5 {ratio} [facility] Serum or plasma alkaline katherine sphatase measurement (enzymatic activity/volume)on 09-12-2020 ALP [Catalytic activity/Vol] 76 U/L 32-92 [facility] Serum or plasma aspartate am inotransferase measurement (enzymatic activity/volume)on 09-12-2020 AST [Catalytic activity/Vol] 18 U/L 10-42 [facility] Serum or plasma calcium eleni urement (mass/volume)on 09-12-2020 Calcium [Mass/Vol] 9.3 mg/dL 8.2-10.2 [facility] Serum or plasma chloride ton surement (moles/volume)on 09-12-2020 Chloride [Moles/Vol] 101 mmol/L 95-114 [facility] Serum or plasma creatinine m easurement with calculation of estimated glomerular filtron 09-12-2020 Creatinine [Mass/Vol] 0.67 mg/dL 0.44-1.03 [facility] Serum or plasma high density lipoprotein (HDL) cholesterol measurementon 09-12-2020 Cholesterol in HDL [Mass/Vol] 57 mg/dL 35-85 [facility] Comment on above: HDL CHOL ATP-III CLA SSIFICATION Cardiovascular RiskHDL > or equal to 60 mg/dL LOWHDL < 40 mg/dL HIGH Serum or plasma potassium me asurement (moles/volume)on 09-12-2020 Potassium [Moles/Vol] 3.9 mmol/L 3.5-5.1 [facility] Serum or plasma sodium measu rement (moles/volume)on 09-12-2020 Sodium [Moles/Vol] 136 mmol/L 136-146 [facility] Serum or plasma total biliru bin measurement (mass/volume)on 09-12-2020 Bilirubin [Mass/Vol] 0.5 mg/dL 0.3-1.2 [facility] Serum or plasma total carbon dioxide measurement (moles/volume)on 09-12-2020 CO2 [Moles/Vol] 23.4 mmol/L 22.0-30.0 [facility] Serum or plasma total choles terol/high density lipoprotein (HDL) cholesterol mass yany 09-12-2020 Cholesterol.total/Cho lesterol in HDL [Mass ratio] 3.1 {ratio} [facility] Serum or plasma urea nitroge n measurement (mass/volume)on 09-12-2020 Urea nitrogen [Mass/Vol] 7 mg/dL 9- [facility] Triglyceride [Mass/volume] i n Serum or Plasmaon 09-12-2020 Triglyceride [Mass/Vol] 220 mg/dL 35-149 [facility] Comment on above: TRIG ATP III CLASSIF ICATIONTRIG less than 150 mg/dL NormalTRIG 150-199 mg/dL Borderline highTRIG 200-500 mg/dL High TRIG greater than 500 mg/dL Very highStandard traceable to the Center for Disease Conrtrol and Prevention (CDC) test method. Vital Signs Date Time Vital Sign Value Performing Clinician Facility 12-26-2024 09:16-0500 Body mass index (BMI) [Ratio] 34.64 kg/m2 Yue MOONEY Work Phone: [facility] 12-26-2024 09:16-0500 Body weight 91.54 kg Yue MOONEY Work Phone: [facility] 12-26-2024 09:16-0500 Diastolic blood pressure 66 mm[Hg] Yue MOONEY Work Phone: [facility] 12-26-2024 09:16-0500 Systolic blood pressure 120 mm[Hg] Yue MOONEY Work Phone: [facility] 12-18-2024 16:01-0500 Body mass index (BMI) [Ratio] 34.16 kg/m2 Chelsea Virk STEEL ENGRAVER[employer] Work Phone: [facility] 12-18-2024 16:01-0500 Body weight 90.27 kg Chelsea Virk STEEL ENGRAVER-TOWER DRAGLINE OPERATOR Work Phone: [facility] 12-18-2024 16:01-0500 Diastolic blood pressure 78 mm[Hg] Chelsea Minerva-Nossek STEEL ENGRAVER-TOWER DRAGLINE OPERATOR Work Phone: [facility] 12-18-2024 16:01-0500 Heart rate 93 /min Chelsea Minerva-Nossek STEEL ENGRAVER-TOWER DRAGLINE OPERATOR Work Phone: [facility] 12-18-2024 16:01-0500 Systolic blood pressure 128 mm[Hg] Chelsea Minerva-Nossek STEEL ENGRAVER-TOWER DRAGLINE OPERATOR Work Phone: [facility] 11-22-2024 16:39-0500 Body mass index (BMI) [Ratio] 33.99 kg/m2 Chelsea Minerva-Nossek STEEL ENGRAVER-TOWER DRAGLINE OPERATOR Work Phone: [facility] 11-22-2024 16:39-0500 Body weight 89.81 kg Chelsea Minerva-Nossek STEEL ENGRAVER-TOWER DRAGLINE OPERATOR Work Phone: [facility] 11-22-2024 16:39-0500 Diastolic blood pressure 80 mm[Hg] Chelsea Minerva-Nossek STEEL ENGRAVER-TOWER DRAGLINE OPERATOR Work Phone: [facility] 11-22-2024 16:39-0500 Heart rate 78 /min Chelsea Minerva-Nossek STEEL ENGRAVER-TOWER DRAGLINE OPERATOR Work Phone: [facility] 11-22-2024 16:39-0500 Systolic blood pressure 128 mm[Hg] Chelsea Minerva-Nossek STEEL ENGRAVER-TOWER DRAGLINE OPERATOR Work Phone: [facility] 11-01-2024 16:30-0500 Body mass index (BMI) [Ratio] 33.99 kg/m2 Christine Helton SUPERVISOR ASSEMBLY DEPARTMENT Work Phone: [facility] 11-01-2024 16:30-0500 Body weight 89.81 kg Christine Helton SUPERVISOR ASSEMBLY DEPARTMENT Work Phone: [facility] 11-01-2024 16:30-0500 Diastolic blood pressure 73 mm[Hg] Christine Helton SUPERVISOR ASSEMBLY DEPARTMENT Work Phone: [facility] 11-01-2024 16:30-0500 Heart rate 90 /min Christine Helton SUPERVISOR ASSEMBLY DEPARTMENT Work Phone: [facility] 11-01-2024 16:30-0500 Systolic blood pressure 126 mm[Hg] Christine Helton SUPERVISOR ASSEMBLY DEPARTMENT Work Phone: [facility] 09-19-2024 16:38-0500 Body height 172.72 cm [facility] 09-19-2024 16:38-0500 Body mass index (BMI) [Ratio] 30.2 kg/m2 [facility] 09-19-2024 16:38-0500 Body temperature 98.1 [degF] [facility] 09-19-2024 16:38-0500 Body weight 90.03 kg [facility] 09-19-2024 16:38-0500 Diastolic blood pressure 76 mm[Hg] [facility] 09-19-2024 16:38-0500 Heart rate 85 /min [facility] 09-19-2024 16:38-0500 SaO2% (BldA) [Mass fraction] 96 % [facility] 09-19-2024 16:38-0500 Systolic blood pressure 118 mm[Hg] [facility] 09-05-2024 16:28-0500 Body mass index (BMI) [Ratio] 34.16 kg/m2 Chelsea Minerva-Nossek STEEL ENGRAVER-TOWER DRAGLINE OPERATOR Work Phone: [facility] 09-05-2024 16:28-0500 Body weight 90.27 kg Chelsea Minerva-Nossek STEEL ENGRAVER-TOWER DRAGLINE OPERATOR Work Phone: [facility] 09-05-2024 16:28-0500 Diastolic blood pressure 72 mm[Hg] Chelsea Minerva-Nossek STEEL ENGRAVER-TOWER DRAGLINE OPERATOR Work Phone: [facility] 09-05-2024 16:28-0500 Heart rate 78 /min Chelsea Minerva-Nossek STEEL ENGRAVER-TOWER DRAGLINE OPERATOR Work Phone: [facility] 09-05-2024 16:28-0500 Systolic blood pressure 108 mm[Hg] Chelsea Minerva-Nossek STEEL ENGRAVER-TOWER DRAGLINE OPERATOR Work Phone: [facility] 08-09-2024 08:57-0400 Body mass index (BMI) [Ratio] 34.67 kg/m2 Chelsea Palma-Idalmissek STEEL ENGRAVER-TOWER DRAGLINE OPERATOR Work Phone: [facility] 08-09-2024 08:57-0400 Body weight 91.63 kg Chelsea Palma-Nossek STEEL ENGRAVER-TOWER DRAGLINE OPERATOR Work Phone: [facility] 08-09-2024 08:57-0400 Diastolic blood pressure 78 mm[Hg] Chelsea Palma-Nossek STEEL ENGRAVER-TOWER DRAGLINE OPERATOR Work Phone: [facility] 08-09-2024 08:57-0400 Heart rate 82 /min Chelsea Palma-Nossek STEEL ENGRAVER-TOWER DRAGLINE OPERATOR Work Phone: [facility] 08-09-2024 08:57-0400 Systolic blood pressure 100 mm[Hg] Chelsea Palma-Idalmissek STEEL ENGRAVER-TOWER DRAGLINE OPERATOR Work Phone: [facility] 07-17-2024 08:25-0400 Body height 162.6 cm Ericka Aguilar SUPERVISOR ASSEMBLY DEPARTMENT Work Phone: [facility] 07-17-2024 08:25-0400 Body mass index (BMI) [Ratio] 35.39 kg/m2 Ericka Aguilar SUPERVISOR ASSEMBLY DEPARTMENT Work Phone: [facility] 07-17-2024 08:25-0400 Body weight 93.53 kg Ericka Aguilar SUPERVISOR ASSEMBLY DEPARTMENT Work Phone: [facility] 07-17-2024 08:25-0400 Diastolic blood pressure 76 mm[Hg] Ericka Aguilar SUPERVISOR ASSEMBLY DEPARTMENT Work Phone: [facility] 07-17-2024 08:25-0400 Heart rate 85 /min Ericka Aguilar SUPERVISOR ASSEMBLY DEPARTMENT Work Phone: [facility] 07-17-2024 08:25-0400 SaO2% (BldA) [Mass fraction] 97 % Ericka Aguilar SUPERVISOR ASSEMBLY DEPARTMENT Work Phone: [facility] 07-17-2024 08:25-0400 Systolic blood pressure 128 mm[Hg] Ericka Aguilar GURMEET Work Phone: [facility] 04-09-2024 13:31-0400 Blood Pressure Location Lester Mcelroy [facility] 04-09-2024 13:31-0400 Diastolic blood pressure 84 mm[Hg] Lester Burdenuchli [facility] 04-09-2024 13:31-0400 Heart rate 61 /min Jeannetted Bertramuchli [facility] 04-09-2024 13:31-0400 Respiratory rate 16 /min Lester Dominguezli [facility] 04-09-2024 13:31-0400 Systolic blood pressure 122 mm[Hg] Lester Mcelroy [facility] 02-26-2024 14:18-0400 Body height 172.72 cm [facility] 02-26-2024 14:18-0400 Body mass index (BMI) [Ratio] 33.1 kg/m2 [facility] 02-26-2024 14:18-0400 Body temperature 98.2 [degF] [facility] 02-26-2024 14:18-0400 Body weight 98.99 kg [facility] 02-26-2024 14:18-0400 Diastolic blood pressure 76 mm[Hg] [facility] 02-26-2024 14:18-0400 Heart rate 68 /min [facility] 02-26-2024 14:18-0400 Respiratory rate 18 /min [facility] 02-26-2024 14:18-0400 SaO2% (BldA) [Mass fraction] 98 % [facility] 02-26-2024 14:18-0400 Systolic blood pressure 120 mm[Hg] MINE UTILITY OPERATOR-C Ame [facility] 10-17-2023 16:30-0500 Body height 162.56 cm Ml Chisholm Other [employer] Other 10-17-2023 16:30-0500 Body mass index (BMI) [Ratio] 34.67 kg/m2 Ml Chisholm Other [employer] Other 10-17-2023 16:30-0500 Body weight 91.63 kg Ml Chisholm Other [employer] Other 10-17-2023 16:30-0500 Diastolic blood pressure 71 mm[Hg] Ml Chisholm Other [employer] Other 10-17-2023 16:30-0500 Respiratory rate 18 /min Ml Chisholm Other [employer] Other 10-17-2023 16:30-0500 SaO2% (BldA) [Mass fraction] 96 % Ml Chisholm Other [employer] Other 10-17-2023 16:30-0500 Systolic blood pressure 112 mm[Hg] Ml Chisholm Other [employer] Other 08-10-2023 11:55-0400 Body height 162.56 cm Sera Lares Other [employer] Other 08-10-2023 11:55-0400 Body mass index (BMI) [Ratio] 37.24 kg/m2 Sera Lares Other [employer] Other 08-10-2023 11:55-0400 Body temperature 97.7 [degF] Sera Lares Other [employer] Other 08-10-2023 11:55-0400 Body weight 98.43 kg Sera Lares Other [employer] Other 08-10-2023 11:55-0400 Respiratory rate 18 /min Sera Lares Other [employer] Other 08-10-2023 11:55-0400 SaO2% (BldA) [Mass fraction] 98 % Sera Lares Other [employer] Other 09-08-2022 10:30-0500 Body height 162.56 cm Marleni Missler Other [employer] Other 09-08-2022 10:30-0500 Body mass index (BMI) [Ratio] 34.93 kg/m2 Marleni Missler Other [employer] Other 09-08-2022 10:30-0500 Body weight 92.31 kg Marleni Missler Other [employer] Other 09-08-2022 10:30-0500 Diastolic blood pressure 77 mm[Hg] Marleni Missler Other [employer] Other 09-08-2022 10:30-0500 Respiratory rate 18 /min Marleni Missler Other [employer] Other 09-08-2022 10:30-0500 SaO2% (BldA) [Mass fraction] 96 % Marleni Missler Other [employer] Other 09-08-2022 10:30-0500 Systolic blood pressure 117 mm[Hg] Marleni Jordan Other [employer] Other 09-02-2022 15:00-0400 Body height 162.56 cm Ame Patelault Other [employer] Other 09-02-2022 15:00-0400 Body mass index (BMI) [Ratio] 34.5 kg/m2 Ame Patelault Other [employer] Other 09-02-2022 15:00-0400 Body temperature 98.6 [degF] Ame Nik Other [employer] Other 09-02-2022 15:00-0400 Body weight 91.17 kg Ame Nik Other [employer] Other 09-02-2022 15:00-0400 Diastolic blood pressure 82 mm[Hg] Ame Patelault Other [employer] Other 09-02-2022 15:00-0400 Respiratory rate 18 /min Ame Nik Other [employer] Other 09-02-2022 15:00-0400 SaO2% (BldA) [Mass fraction] 86 % Ame Nik Other [employer] Other 09-02-2022 15:00-0400 Systolic blood pressure 129 mm[Hg] Ame Nik Other [employer] Other 07-10-2022 12:10-0400 Body height 162.56 cm Ame Nik Other [employer] Other 07-10-2022 12:10-0400 Body mass index (BMI) [Ratio] 33.91 kg/m2 Ame Zaragoza Other [employer] Other 07-10-2022 12:10-0400 Body temperature 98.6 [degF] Ame Zaragoza Other [employer] Other 07-10-2022 12:10-0400 Body weight 89.63 kg Ame Zaragoza Other [employer] Other 07-10-2022 12:10-0400 Diastolic blood pressure 81 mm[Hg] Ame Zaragoza Other [employer] Other 07-10-2022 12:10-0400 Respiratory rate 18 /min Ame Zaragoza Other [employer] Other 07-10-2022 12:10-0400 SaO2% (BldA) [Mass fraction] 98 % Ame Zaragoza Other [employer] Other 07-10-2022 12:10-0400 Systolic blood pressure 132 mm[Hg] Ame Zaragoza Other [employer] Other 05-24-2022 17:00-0400 Body height 162.56 cm Ame Zaragoza Other [employer] Other 05-24-2022 17:00-0400 Body mass index (BMI) [Ratio] 34.67 kg/m2 Ame Zaragoza Other [employer] Other 05-24-2022 17:00-0400 Body temperature 98 [degF] Ame Zaragoza Other [employer] Other 05-24-2022 17:00-0400 Body weight 91.63 kg Ame Zaragoza Other [employer] Other 05-24-2022 17:00-0400 Diastolic blood pressure 70 mm[Hg] Ame Zaragoza Other [employer] Other 05-24-2022 17:00-0400 Respiratory rate 18 /min Ame Zaragoza Other [employer] Other 05-24-2022 17:00-0400 SaO2% (BldA) [Mass fraction] 99 % Ame Zaragoza Other [employer] Other 05-24-2022 17:00-0400 Systolic blood pressure 122 mm[Hg] Ame Zaragoza Other [employer] Other 10-02-2021 18:20-0500 Body height 162.56 cm Sera Smallwoodmond Other [employer] Other 10-02-2021 18:20-0500 Body mass index (BMI) [Ratio] 35.01 kg/m2 Sera Luda Other [employer] Other 10-02-2021 18:20-0500 Body temperature 98.2 [degF] Sera Luda Other [employer] Other 10-02-2021 18:20-0500 Body weight 92.53 kg Sera Lares Other [employer] Other 10-02-2021 18:20-0500 Diastolic blood pressure 81 mm[Hg] Sera Lares Other [employer] Other 10-02-2021 18:20-0500 Respiratory rate 18 /min Sera Lares Other [employer] Other 10-02-2021 18:20-0500 SaO2% (BldA) [Mass fraction] 99 % Sera Lares Other [employer] Other 10-02-2021 18:20-0500 Systolic blood pressure 118 mm[Hg] Sera Lares Other [employer] Other 08-22-2021 15:15-0400 Body height 162.56 cm Christiana Ginty Other [employer] Other 08-22-2021 15:15-0400 Body mass index (BMI) [Ratio] 34.33 kg/m2 Christiana Ginty Other [employer] Other 08-22-2021 15:15-0400 Body weight 90.72 kg Christiana Ginty Other [employer] Other Encounters Encounter Date Encounter Type Care Provider Facility Start: 01-04-2025 End: 01-04-2025 ambulatory ISAAK BERGER Not Available Start: 12-28-2024 End: 12-28-2024 Bamboo flowsheet Isaka Berger PRICER BAGGER [facility] Start: 12-28-2024 End: 12-28-2024 Bamboo flowsheet Isaak Berger PRICER BAGGER [facility] Start: 12-28-2024 End: 12-28-2024 ambulatory ISAAK BERGER Not Available Start: 12-26-2024 End: 12-26-2024 Subsequent hospital visit by physician Gabriele Parra Work Phone: Radiology Comment on above: History of foot surg neil [Z98.890] Start: 12-26-2024 End: 12-26-2024 Bamboo flowsheet Yue MOONEY Work Phone: [facility] Start: 12-26-2024 End: 12-29-2024 Bamboo flowsheet Yue MOONEY Work Phone: [facility] Start: 12-26-2024 End: 12-29-2024 Clinisync Result Encounter Yue MOONEY Work Phone: [facility] External Department Unsolicited Start: 12-26-2024 End: 12-26-2024 ambulatory Kimberlee Denise RT(R) Radiology Comment on above: Radiology XR Start: 12-26-2024 End: 12-26-2024 Patient encounter procedure Yue MOONEY Work Phone: [facility] Comment on above: History of foot surg neil (Primary Dx); Peroneal tendinitis of right lower extremity; Orthopedic hardware present Start: 12-26-2024 End: 12-26-2024 Periodic preventive med est patient 18-39 yrs Yue MOONEY Work Phone: [facility] Comment on above: Well woman exam with routine gynecological exam Start: 12-21-2024 End: 12-21-2024 Telephone encounter Isaak Ab PRICER BAGGER [facility] Start: 12-18-2024 End: 12-18-2024 ambulatory CHELSEA Quintin MINERVA-NOSSEK Not Available Start: 12-18-2024 End: 12-18-2024 Office outpatient visit 15 minutes Chelsea Quintin Minerva-Nossek STEEL ENGRAVER-TOWER DRAGLINE OPERATOR Work Phone: [facility] Comment on above: Bipolar II disorder, most recent episode major depressive (CMS/HCC); Generalized anxiety disorder (CMS/HCC) Start: 11-22-2024 End: 11-22-2024 ambulatory CHELSEA Quintin MINERVA-NOSSEK Not Available Start: 11-22-2024 End: 11-22-2024 Office outpatient visit 25 minutes Chelsea Quintin Minerva-Nossek STEEL ENGRAVER-TOWER DRAGLINE OPERATOR Work Phone: [facility] Comment on above: Bipolar II disorder, most recent episode major depressive (CMS/HCC); Insomnia, unspecified type; Generalized anxiety disorder (CMS/HCC) Start: 11-06-2024 End: 11-06-2024 Refill Chelsea Keenor-Nossek STEEL ENGRAVER-TOWER DRAGLINE OPERATOR Work Phone: [facility] Comment on above: Bipolar II disorder, most recent episode major depressive (CMS/HCC) Start: 11-01-2024 End: 11-01-2024 ambulatory CHRISTINE HELTON Not Available Start: 11-01-2024 End: 11-01-2024 Office outpatient visit 25 minutes Christine Helton SUPERVISOR ASSEMBLY DEPARTMENT Work Phone: [facility] Comment on above: Chronic migraine wit hout aura without status migrainosus, not intractable (CMS/HCC) (Primary Dx); Tremor Start: 11-01-2024 End: 11-01-2024 Bamboo flowsheet Christine Helton SUPERVISOR ASSEMBLY DEPARTMENT Work Phone: [facility] Start: 11-01-2024 End: 11-01-2024 Bamboo flowsheet Christine Helton SUPERVISOR ASSEMBLY DEPARTMENT Work Phone: [facility] Start: 09-19-2024 End: 09-19-2024 ambulatory [facility] Work Phone: Start: 09-19-2024 End: 09-19-2024 Patient encounter procedure [facility] Work Phone: Start: 09-05-2024 End: 09-05-2024 ambulatory CHELSEA KEENOR-NOSSEK Not Available Start: 09-05-2024 End: 09-05-2024 Office outpatient visit 15 minutes Chelsea Keenor-Nossek STEEL ENGRAVER-TOWER DRAGLINE OPERATOR Work Phone: [facility] Comment on above: Bipolar II disorder, most recent episode major depressive (CMS/HCC); Insomnia, unspecified type Start: 09-05-2024 End: 09-05-2024 Bamboo flowsheet Chelsea Keenor-Nossek STEEL ENGRAVER-TOWER DRAGLINE OPERATOR Work Phone: [facility] Start: 09-05-2024 End: 09-05-2024 Bamboo flowsheet Chelsea Palma-Idalmissek STEEL ENGRAVER-TOWER DRAGLINE OPERATOR Work Phone: [facility] Start: 08-09-2024 End: 08-09-2024 Bamboo flowsheet Chelsea Palma-Nossek STEEL ENGRAVER-TOWER DRAGLINE OPERATOR Work Phone: [facility] Start: 08-09-2024 End: 08-09-2024 Bamboo flowsheet Chelsea Palma-Nossek STEEL ENGRAVER-TOWER DRAGLINE OPERATOR Work Phone: [facility] Start: 08-09-2024 End: 08-09-2024 Office outpatient visit 25 minutes Chelsea Palma-Nossek STEEL ENGRAVER-TOWER DRAGLINE OPERATOR Work Phone: [facility] Comment on above: Bipolar II disorder, most recent episode major depressive (CMS/HCC); Generalized anxiety disorder (CMS/HCC) Start: 08-09-2024 End: 08-09-2024 ambulatory CHELSEA PALMA-NOSSEK Not Available Start: 07-17-2024 End: 07-17-2024 Bamboo flowsheet Ericka Jonesoll SUPERVISOR ASSEMBLY DEPARTMENT Work Phone: [facility] Start: 07-17-2024 End: 07-17-2024 Bamboo flowsheet Ericka Aguilar SUPERVISOR ASSEMBLY DEPARTMENT Work Phone: [facility] Start: 07-17-2024 End: 07-17-2024 Telephone encounter Ericka Jeff SUPERVISOR ASSEMBLY DEPARTMENT Work Phone: [facility] Start: 07-17-2024 End: 07-17-2024 Office outpatient visit 25 minutes Ericka Jeff SUPERVISOR ASSEMBLY DEPARTMENT Work Phone: [facility] Comment on above: Chronic migraine wit hout aura without status migrainosus, not intractable (CMS/HCC) (Primary Dx); Tremor Start: 07-17-2024 End: 07-17-2024 ambulatory ERICKA AGUILAR Not Available Start: 07-13-2024 End: 07-13-2024 ambulatory ISAAK BERGER Not Available Start: 07-13-2024 End: 07-13-2024 Bamboo flowsheet Isaak Berger PRICER BAGGER [facility] Start: 07-13-2024 End: 07-13-2024 Bamboo flowsheet Isaak Berger [employer]ICER BAGGER [facility] Start: 07-04-2024 End: 07-04-2024 Bamboo flowsheet Isaak Berger [employer]ICER BAGGER [facility] Start: 07-04-2024 End: 07-04-2024 Bamboo flowsheet Isaak Berger [employer]ER BAGGER [facility] Start: 07-04-2024 End: 07-04-2024 ambulatory ISAAK BERGER Not Available Start: 06-13-2024 End: 06-13-2024 ambulatory ISAAK BERGER Not Available Start: 06-04-2024 End: 06-04-2024 ambulatory CHELSEA M MINERVA-NOSSEK Not Available Start: 05-23-2024 End: 05-23-2024 ambulatory ISAAK BERGER Not Available Start: 05-16-2024 End: 05-16-2024 ambulatory ISAAK BERGER Not Available Start: 05-11-2024 End: 05-11-2024 ambulatory SIAAK BERGER Not Available Start: 04-25-2024 End: 04-25-2024 ambulatory CHELSEA M MINERVA-NOSSEK Not Available Start: 04-11-2024 End: 04-11-2024 ambulatory Lester Mcelroy [place] Start: 04-11-2024 End: 04-11-2024 Lab Drop off Lester Mcelroy [facility] Start: 04-09-2024 End: 04-09-2024 ambulatory Lester Mcelroy [facility] Start: 04-09-2024 End: 04-09-2024 Patient encounter procedure Lester Mcelroy [facility] Start: 04-09-2024 End: 04-09-2024 ambulatory Lester Mcelroy Facility:[facility] Start: 04-09-2024 End: 04-09-2024 Patient encounter procedure Lester Mcelroy [facility] Start: 03-15-2024 End: 03-15-2024 ambulatory LUIS EDUARDO NARANJOO Not Available Start: 02-26-2024 End: 02-26-2024 ambulatory MINE UTILITY OPERATOR-C Ame [facility] Work Phone: Start: 02-26-2024 End: 02-26-2024 Patient encounter procedure MINE UTILITY OPERATOR-C [facility] Work Phone: Start: 02-23-2024 End: 02-23-2024 ambulatory CHELSEA M MINERVA-NOSSEK Not Available Start: 01-26-2024 End: 01-26-2024 ambulatory CHELSEA M MINERVA-NOSSEK Not Available Start: 12-08-2023 End: 12-08-2023 ambulatory Ame Nik Facility:[facility] Start: 12-08-2023 End: 12-08-2023 ambulatory MINE UTILITY OPERATOR-C [facility] Work Phone: Start: 12-08-2023 End: 12-08-2023 Departed Referred MINE UTILITY OPERATOR-C [facility] Start: 10-17-2023 End: 10-17-2023 ambulatory Ml Chisholm Other [employer] Other Start: 10-17-2023 Office outpatient vi sit 15 minutes Ml Chisholm [facility] Start: 10-17-2023 End: 10-17-2023 Patient encounter procedure MINE UTILITY OPERATOR-C Ame [facility] Work Phone: Start: 08-10-2023 End: 08-10-2023 ambulatory Sera Lares Other [employer] Other Start: 08-10-2023 Office outpatient vi sit 15 minutes Sera Lares [facility] Start: 04-16-2023 End: 04-17-2023 ambulatory Ame Zaragoza Facility:[facility] Start: 02-02-2023 End: 02-03-2023 ambulatory AME ZARAGOZA Facility: Start: 01-26-2023 ambulatory AME ZARAGOZA Facil ity:[facility] Start: 01-17-2023 End: 01-17-2023 Lab Drop off AME ZARAGOZA [facility] Start: 12-16-2022 End: 12-16-2022 ambulatory Cong Cobian Facility:[facility] Start: 10-31-2022 End: 10-31-2022 ambulatory PHYSICIAN NO [facility] Work Phone: Start: 10-31-2022 End: 10-31-2022 Patient encounter procedure PHYSICIAN NO [facility] Start: 10-23-2022 End: 10-23-2022 ambulatory FARHEEN CAMACHO . Facility:[facility] Start: 10-13-2022 End: 10-13-2022 Patient encounter procedure PHYSICIAN NO [facility] [place] Work Phone: Start: 10-13-2022 Registered Recurring PHYSICIAN NO [facility] Work Phone: Start: 10-12-2022 End: 10-12-2022 ambulatory PHYSICIAN NO [facility] Work Phone: Start: 10-12-2022 End: 10-12-2022 Patient encounter procedure PHYSICIAN NO [facility] [place] Start: 10-11-2022 Registered Recurring PHYSICIAN NO [facility] Start: 10-11-2022 End: 10-11-2022 ambulatory Marleni Jordan Other [employer] Other Start: 10-11-2022 Telephone encounter Marleni [facility] Start: 09-29-2022 End: 09-29-2022 ambulatory Abhi Madeline Finney Facility:[facility] Start: 09-15-2022 End: 09-16-[address] DOCTOR LANDEROS Facility:[facility] Start: 09-08-2022 End: 09-08-2022 ambulatory Marleni Jordan Other [facility] Other Start: 09-08-2022 Nutrition therapy Marleni Jordan [facility] Start: 09-02-2022 End: 09-02-2022 ambulatory Ame Zaragoza Other [facility] Other Start: 09-02-2022 Office outpatient vi sit 15 minutes Ame Zaragoza [facility] [place] Start: 08-02-2022 End: 08-02-2022 ambulatory Debra Celestin Other [facility] Other Start: 08-02-2022 Telephone encounter Debra Celestin [facility] Start: 07-14-2022 End: 07-14-2022 ambulatory Ame Zaragoza Facility:[facility] Start: 07-10-2022 End: 07-10-2022 ambulatory Ame Zaragoza Other [facility] Other Start: 07-10-2022 Office outpatient vi sit 15 minutes Ame Zaragoza [facility] [place] Start: 07-07-2022 End: 07-08-[address] CONOR BEAL Facility:[facility] Start: 06-26-2022 End: 06-26-2022 ambulatory Ame Zaragoza Other [facility] Other Start: 06-26-2022 Telephone encounter Ame browning [facility] [place] Start: 05-24-2022 End: 05-24-2022 Departed Referred MINE UTILITY OPERATOR-C Ame Patelault Work Phone: [facility] [place] Start: 05-24-2022 End: 05-24-2022 ambulatory Ame Zaragoza Other [facility] Other Start: 05-24-2022 Office outpatient vi sit 15 minutes Ame Nik [facility] [place] Start: 05-19-2022 End: 05-19-2022 ambulatory Ame Patelault Other [facility] Other Start: 05-19-2022 Telephone encounter Amepatrick Warnerl t [facility] [place] Start: 05-11-2022 ambulatory BRITNI GRANT Facilit y:[facility] Start: 12-11-2021 End: 12-11-2021 ambulatory Ame Patelault Other [facility] Other Start: 12-11-2021 Telephone encounter Amepatrick Warnerl t [facility] [place] Start: 10-02-2021 End: 10-02-2021 ambulatory Sera Luda Other [facility] Other Start: 10-02-2021 Office outpatient vi sit 15 minutes Sera Luda [facility] [place] Start: 08-22-2021 End: 08-22-2021 ambulatory Christiana Ginty Other [facility] Other Start: 08-22-2021 Office outpatient vi sit 15 minutes Christiana Ginty [facility] [place] Start: 11-25-2020 End: 11-25-2020 Patient encounter procedure Kit Reyes ([facility]) -Pre-Surgical Testing Start: 10-27-2020 End: 10-27-2020 Patient encounter procedure Kit Reyes ([facility]) -[place] COVID Testing Start: 09-12-2020 End: 09-12-2020 Departed Referred Kit Reyes ([facility]) -Corporate Health RT 250 Procedures Date Procedure Procedure Detail Performing Clinician Start: 12-28-2024 End: 12-28-2024 Psychiatric diagnostic evaluation Bipolar II disorder, most recent episode major depressive (CMS/HCC) Isaak Berger PRICER BAGGER Comment on above: Bipolar II disorder, most recent episode major depressive (CMS/HCC) Start: 12-26-2024 Radex calcaneus mini mum 2 views Geraldine Bolaños DPM Work Phone: Start: 12-26-2024 IGP,APTIMA HPV,AGE GDLN Yue Ana PA Work Phone: Start: 07-13-2024 End: 07-13-2024 Family psychotherapy w/o patient present 50 mins Marital/partner relational problem Isaak Berger PRICER BAGGER Comment on above: Marital/partner rela tional problem; Bipolar II disorder, most recent episode major depressive (CMS/HCC); Generalized anxiety disorder (CMS/HCC) Start: 07-04-2024 End: 07-04-2024 Psychotherapy w/patient 60 minutes Marital/partner relational problem Isaak Berger PRICER BAGGER Comment on above: Marital/partner rela tional problem; Bipolar II disorder, most recent episode major depressive (CMS/HCC) Start: 12-01-2023 ft (qualifier value) Bertram Mcelroy Comment on above: flat foot Start: 10-13-2022 MRI of head PHYSICIAN NO FAMILY Start: 10-27-2020 SARS Antigen (LFIA) Nirmal id Wolverine ([facility]) Cholecystectomy AME HI Dilation and curettage NAA ZARAGOZA History of cholecystectomy S/P cholecystectomy Lester Mcelroy Nasal sinus structur e (body structure) AME ZARAGOZA Tonsillectomy AME LEE Urine culture MINE UTILITY OPERATOR-C Sil Zaragoza Work Phone: wisdom teeth AME WARNER LT Plan of Treatment Date Care Activity Detail Author Start: 02-08-2029 Urine microalbumin profile DTaP,Tdap,Td Vaccine (2 - Td or Tdap) [facility] Start: 01-30-2025 End: 01-30-2025 Patient encounter procedure 01/30/2025 4:30 PM EDT Office Visit [facility] [address] [facility] [address] [place] [id number] Chelsea Virk, STEEL ENGRAVER-TOWER DRAGLINE OPERATOR [address] [facility] [address] [place] [address] [facility] Start: 01-29-2025 End: 01-29-2025 Patient encounter procedure 01/29/2025 4:15 PM EDT Office Visit GIANNA TAMEZ [address] [place] [address] Akira Gavin DO [address] [place], [place] [id number] GIANNA TAMZE Start: 01-25-2025 End: 01-25-2025 Social Work 01/25/2025 1:00 PM EDT Social Work [facility] [address] [facility] [place] [address] Isaak Berger LSW [facility] Start: 01-18-2025 End: 01-18-2025 Social Work 01/18/2025 1:00 PM EDT Social Work [facility] [address] [facility] [place] [address] Isaak Berger LSW [facility] Start: 01-11-2025 End: 01-11-2025 Social Work 01/11/2025 1:00 PM EDT Social Work [facility] [address] [facility] [place] [address] Isaak Berger LSW [facility] Start: 01-04-2025 End: 01-04-2025 Social Work 01/04/2025 11:00 AM EST Social Work [facility] [address] [facility] [place] [address] Isaak Berger LSW [facility] Start: 01-03-2025 End: 01-03-2025 Patient encounter procedure [facility] [place] [address] Start: 12-28-2024 End: 12-28-2024 Social Work 12/28/2024 11:00 AM EST Social Work [facility] [address] [place] [address] Isaak Berger LSW [facility] Start: 12-26-2024 End: 12-26-2024 Patient encounter procedure 12/26/2024 9:00 AM EST Office Visit [facility] [address] [facility] [place] [address] Yue Perez, PA [address] [facility] [address] [place], [place] [id number] [facility] Start: 12-13-2024 End: 12-13-2024 Patient encounter procedure 12/13/2024 4:30 PM EST Office Visit [facility] [address] [facility] [address] [place] [id number] Chelsea Virk, STEEL ENGRAVER-TOWER DRAGLINE OPERATOR [address] [facility] [address] [place] [address] [facility] Start: 12-04-2024 End: 12-04-2024 Patient encounter procedure 12/04/2024 3:00 PM EST Office Visit [facility] [address] [facility] [address] Yue Perez, PA [address] [place] [address] [facility] Start: 11-22-2024 End: 11-22-2024 Telemedicine consultation with patient 11/22/2024 3:30 PM EST Telemedicine [facility] [address] [place] [address] [place] [phone] Chelsea Virk, STEEL ENGRAVER-TOWER DRAGLINE OPERATOR [address] [place] [address] [place] [address] [facility] Start: 11-06-2024 End: 11-06-2024 Patient encounter procedure 11/06/2024 4:30 PM EST Office Visit [facility] [address] [place] [address] [place] [address] Chelsea Virk, STEEL ENGRAVER-TOWER DRAGLINE OPERATOR [address] [place] [address] [place] [address] [facility] Start: 09-12-2024 End: 09-12-2024 Patient encounter procedure 09/12/2024 8:40 AM EST Office Visit [facility] [place] [address] [place] [phone] Aguilar Ericka, SUPERVISOR ASSEMBLY DEPARTMENT [address] [place] [address] [facility] [place] [address] Start: 09-05-2024 End: 09-05-2024 Patient encounter procedure 09/05/2024 4:00 PM EST Office Visit [facility] [address] [place] [address] [place] [address] MinervaChelsea Awan, STEEL ENGRAVER-TOWER DRAGLINE OPERATOR [address] [place] [address] [place] [address] [facility] Start: 08-09-2024 End: 08-09-2024 Patient encounter procedure 08/09/2024 9:00 AM EDT Office Visit [facility] [address] [place] [address] [place] [address] MinervaChelsea Awan, STEEL ENGRAVER-TOWER DRAGLINE OPERATOR [address] [place] [address] [place] [address] Arrived [facility] Comment on above: Arrived Start: 08-01-2024 End: 08-01-2024 Patient encounter procedure 08/01/2024 9:00 AM EDT Office Visit [facility] [address] [place] [address] [place] [address] Chelsea Virk, STEEL ENGRAVER-TOWER DRAGLINE OPERATOR [address] [place] [address] [place] [address] [facility] Start: 07-17-2024 End: 07-17-2024 Patient encounter procedure [facility] [place] [address] Comment on above: Chronic migraine wit hout aura without status migrainosus, not intractable (CMS/HCC) (Primary Dx); Tremor Start: 07-13-2024 End: 07-13-2024 Social Work [facility] Comment on above: Arrived Start: 07-11-2024 End: 07-11-2024 Patient encounter procedure 07/11/2024 9:00 AM EDT [facility] [address] [place] [address] Ericka Aguilar NP [address] [place] [address] [facility] [address] Start: 07-04-2024 End: 07-04-2024 Social Work 07/04/2024 8:00 AM EDT [facility] [address] [place] [address] Isaak Berger LSW Arrived [facility] Comment on above: Arrived Start: 07-01-2024 Covid-19 Vaccine ( season) Covid-19 Vaccine ( season) [facility] Start: 07-01-2024 Influenza vaccination Influenza Vacc ine (#1) [facility] Start: 2007 Screening for malign ant neoplasm of cervix Cervical Cancer Screening [facility] Start: 2004 Anxiety Screening Anxiety Screening [facility] Start: 2004 Depression Screening Depression Scre ening [facility] Start: 2004 Hepatitis C screening Hepatitis C Sc shabbir [facility] Start: 2004 HIV screening HIV Screening [facility] Cytology Cervical or vaginal smear or scraping study Pap Smear Pathology and Cytology Routine Well woman exam with routine gynecological exam Ordered: 12/26/2024 [facility] Work Phone: Comment on above: Ordered: 12/26/2024 Human papilloma viru s DNA [Presence] in Unspecified specimen by Probe with amplification HPV DNA probe, amplified Microbiology Routine Well woman exam with routine gynecological exam Ordered: 12/26/2024 [facility] Comment on above: Ordered: 12/26/2024 Immunizations Immunization Date Immunization Notes Care Provider Chaim kumar 08-04-2022 influenza virus vaccine, unspecified formulation Mohamad Mouchli [facility] 07-13-2022 SARS-CoV-2 (COVID-19 ) mRNA-1273 vaccine Mohamad Mouchli [facility] 11-22-2021 COVID-19 Vaccine Moderna - Documentation Purposes Only Ame Zaragoza Other [facility] 08-13-2020 influenza virus vaccine, unspecified formulation Mohamad Mouchli [facility] 08-07-2020 influenza virus vaccine, unspecified formulation Mohamad Mouchli [facility] 08-09-2019 hepatitis B vaccine, adult dosage Mohamad Mouchli [facility] 08-05-2019 influenza virus vaccine, unspecified formulation Mohamad Mouchli [facility] 03-15-2019 hepatitis B vaccine, adult dosage Mohamad Mouchli [facility] 03-15-2019 varicella virus vaccine Moha mad Mouchli [facility] 02-08-2019 hepatitis B vaccine, adult dosage Mohamad Mouchli [facility] 02-08-2019 tetanus toxoid, redu emmett diphtheria toxoid, and acellular pertussis vaccine, adsorbed Mohamad Mouchli [facility] 02-08-2019 varicella virus vaccine Moha mad Mouchli [facility] 01-07-2019 influenza virus vaccine, unspecified formulation Lester Mcelroy [facility] Payers Date Payer Category Payer Unknown 2022 Self-pay [id number] 2021 Managed Care HMO (unspecified) [id number] 2021 Private Health Insurance [employer] [id number] [id number] 1986 Unknown [id number] 2.16.840.1.681807.3.579. 2.593 1986 Unknown [id number] 2.16840.1.374950.3.579. 2.593 1986 Unknown [id number] 2.16840.1.898781.3.579. 2.59 1986 Unknown [id number] 2.16840.1.731886.3.579. 2.593 1986 Unknown [id number] 2.16.840.1.653962.3.579. 2.593 1986 Unknown [id number] 2.16.840.1.391054.3.579. 2.593 1986 Unknown [id number] 2.16.840.1.895992.3.579. 2.593 1986 Unknown [id number] 2.16.840.1.238900.3.579. 2.718 1986 Unknown [id number] 2.16.840.1.736100.3.579. 2.718 1986 Unknown [id number] 2.16.840.1.843623.3.579. 2.72 1986 Unknown [id number] 2.16840.1.515090.3.579. 2.72 1986 Unknown [id number] 2.16840.1.926455.3.579. 2.72 1986 Unknown [id number] 2.16840.1.859623.3.579. 2.1258 1986 Unknown [id number] 2.16840.1.576335.3.579. 2.1258 1986 Unknown [id number] 2.16840.1.714388.3.579. 2.1258 1986 Unknown [id number] 2.16840.1.276485.3.579. 2.1258 1986 Unknown [id number] 2.16840.1.323394.3.579. 2.1258 1986 Unknown [id number] 2.16.840.1.684073.3.579. 2.1258 1986 Unknown [id number] 2.16.840.1.889596.3.579. 2.1258 1986 Unknown [id number] 2.16.840.1.322731.3.579. 2.1258 1986 Unknown [id number] 2.16.840.1.207732.3.579. 2.1258 1986 Unknown [id number] 2.16.840.1.403158.3.579. 2.1258 1986 Unknown [id number] 2.16.840.1.507477.3.579. 2.1258 1986 Unknown [id number] 2.16.840.1.711616.3.579. 2.1258 1986 Unknown [id number] 2.16.840.1.724206.3.579. 2.1258 1986 Unknown [id number] 2.16.840.1.564112.3.579. 2.1258 1986 Unknown [id number] 2.16.840.1.173519.3.579. 2.1258 1986 Unknown [id number] 2.16.840.1.829342.3.579. 2.1258 1986 Unknown [id number] 2.16.840.1.107509.3.579. 2.1258 1986 Unknown [id number] 2.16.840.1.094872.3.579. 2.1258 1986 Unknown [id number] 2.16.840.1.270206.3.579. 2.1258 1986 Unknown [id number] 2.16.840.1.948900.3.579. 2.9 1959 Private Health Insurance [id number] Private Health Insurance [id number] 2.16.840.1.167220.19 Unknown [id number] Unknown [id number] Unknown [id number] Social History Date Type Detail Facility Start: 11-25-2020 End: 03-22-2023 Tobacco smoking status NHIS Never smoked tobacco (finding) [facility] Start: 1985 Sex Assigned At Female F [facility] Start: 07-17-2024 End: 12-18-2024 Sex Assigned At [facility] Tobacco smoking status Never [facility] Start: 03-22-2023 Tobacco use and exposure Smokeless tobacco non-user [facility] Start: 07-17-2024 End: 12-26-2024 Alcoholic beverage intake Lifetime non-drinker (finding) [facility] Start: 07-17-2024 End: 12-18-2024 History of Social function [facility] Start: 03-19-2023 Education 21 [facility] Start: 03-19-2023 Alcohol Comment caffeine intak e: 1-2 cups per day [facility] Start: 1985 Sex assigned at Not on file [facility] Start: 09-19-2024 Sex Female (finding) [facility] Tobacco smoking stat us NHIS Tobacco smoking consumption unknown [facility] Medical Equipment Procedure Code Equipment Code Equipment Origin al Text Equipment Identifier Dates Test Strips as directed Start: 09-02-2022 Goals Date Patient Goal Desired Activity /State Functional Status Date Assessment Result Facility 04-09-2024 Functional Status N/A [facility] Clinical Notes 08-22-2021 to 12-26-2024 Kimberlee Denise RT(R) - 12/26/2024 4:01 PM Geraldine Matson DPM - 12/26/2024 3:48 PM JESICA Rosario - 12/26/2024 9:00 AM ESTTelephone Encounter - Beckie Scott - 12/21/2024 3:41 PM ESTLaboratory Note Date & Type Note Facility 12-26-2024 Note HNO ID: [id number] Author: KIMBERLEE DENISE RT(R) Service: ? Author Type: Technologist Type: Progress Notes Filed: 12/26/2024 16:02 Note Text: Radiology Service Progress Note PATIENT NAME: Noble Castillo DATE OF SERVICE: December 26, 2024 TIME: 4:01 PM PATIENT IDENTITY VERIFICATION COMPLETED USING TWO (2) IDENTIFIERS: Name and Date of confirmed by patient verbally. FALL SCREENING: Has the patient had 2 falls in the last year or 1 fall with injury or currently using an Ambulatory Assistive Device (Walker, Cane, Wheelchair, Crutches, etc.)? No PATIENT GENDER DATA: Assigned female at . status: : No status: NO. PATIENT RELEVANT IMPLANT DATA REVIEWED: Not Applicable PATIENT PRESENTS WITH AN IMPLANTABLE OR ATTACHED SUPERVISOR BAKERY SANITATION: No RADIOLOGY DEPARTMENT: General X-ray: Exam(s) Completed: Lower Extremity X-Ray(s): Foot, Right and Wt. Bearing and Heel, Right and Wt. Bearing PERIPHERAL IV DATA: Not applicable SIGNED BY: RT Huber(R) December 26, 2024 4:01 PM [facility] 12-26-2024 History of Presen t illness Narrative Radiology Service Progress Note PATIENT NAME: Noble Castillo DATE OF SERVICE: December 26, 2024 TIME: 4:01 PM PATIENT IDENTITY VERIFICATION COMPLETED USING TWO (2) IDENTIFIERS: Name and Date of confirmed by patient verbally. FALL SCREENING: Has the patient had 2 falls in the last year or 1 fall with injury or currently using an Ambulatory Assistive Device (Walker, Cane, Wheelchair, Crutches, etc.)? No PATIENT GENDER DATA: Assigned female at . status: : No status: NO. PATIENT RELEVANT IMPLANT DATA REVIEWED: Not Applicable PATIENT PRESENTS WITH AN IMPLANTABLE OR ATTACHED SUPERVISOR BAKERY SANITATION: No RADIOLOGY DEPARTMENT: General X-ray: Exam(s) Completed: Lower Extremity X-Ray(s): Foot, Right and Wt. Bearing and Heel, Right and Wt. Bearing PERIPHERAL IV DATA: Not applicable SIGNED BY: RT Huber(R) December 26, 2024 4:01 PM documented in this encounter [facility] 12-26-2024 Note HNO ID: [id number] Author: GERALDINE BOLAÑOS DPM Service: ? Author Type: Physician Type: Progress Notes Filed: 12/26/2024 16:32 Note Text: Patient Visit for Noble Castillo 1985 39 year old female SUBJECTIVE: Chief Complaint: Patient presents with: Right Ankle - New, Pain Pain Scales: Verbal (Numeric Rating or Visual Analog Scale) Pain Level: 4 Pain Location: Ankle-Right Description: Sharp, Shooting (electric) Duration Amount of Time: 1 Duration Units: Years Frequency: Continuous Intervention/Comfort measure: Cold, Medication, Exercise (ankle brace) Comments: She is here for pain in the right ankle. Had right foot surgery Dec 2023 by . Pain improves with ankle brace. Additional HPI: very complicated history of bilateral foot surgery by Dr. Fabienne Guerra, DPM Treatment for pes plano valgus deformity Re alignment LEFT , arthrodesis talo calcaneal joint RIGHT She was doing well post operative ,however, Now complains of RIGHT lateral hind foot pain for several months Additional Modifying factor: What makes better / worse: Better with A.S.O. (Ankle Stabilizing Orthosis) RIGHT PCP: No primary care provider on file. No past medical history on file. Current Outpatient Medications Medication Sig lamoTRIgine (LAMICTAL) 150 mg tablet Take 150 mg by mouth once daily. sertraline (ZOLOFT) 100 mg tablet Take 150 mg by mouth once daily. SUMAtriptan (IMITREX) 25 mg tablet Take 25 mg by mouth as needed for migraine headache (see administration instructions). AJOVY AUTOINJECTOR 225 mg/1.5 mL auto-injector Inject 225 mg subcutaneously once every month. No current facility-administered medications for this visit. ALLERGIES Allergen Reactions Adhesive Rash No past surgical history on file. No family history on file. Tobacco Use: Not on file REVIEW OF SYSTEMS: The remainder of the ROS was reviewed with the patient and is negative except as noted. OBJECTIVE: General: Pleasant in no acute distress Lower extremity exam: Vascular exam: Normal vascular exam, palpable pluses with brisk capillary fill Neurological exam: Normal neurological exam, gross epicritic sensation intact Dermatological exam: See Epic photo uploaded today: December 26, 2024 Well healed scars from previous surgery Normal exam without rashes or lesions of skin. No evidence of evidence of petechiae, purpura, telangiectasia Musculoskeletal exam: Tenderness to palpation posterior and inferior to lateral malleolus RIGHT ANKLE Local effusion along the course of peroneal tendons With eversion stress peroneal tendons strain of peroneal retinaculum noted - difficult to assess No obvious subluxation peroneal tendons Firm tissue deep to peroneal tendons / possible fibrous impingement Gross overall Manual muscle strength evaluation relatively intact Arthrodesis solid and in good alignment Other Gross range of motion appears to be intact to ankle and foot LABS: Most recent labs reviewed LABORATORY STUDIES: No results for input(s): HB , WBC , PLT , WSR , CRP , CCPABG , RF , INR , CREATININE , ALB , PROT , URICACID , HBA1C , VITD25 in the last 33113 hours. X-ray weight bearing RIGHT FOOT with calcaneus axial MRI reviewed from outside / non [facility] facility ASSESSMENT: Z98.890 History of foot surgery (primary encounter diagnosis) M76.71 Peroneal tendinitis of right lower extremity Z97.8 Orthopedic hardware present PLAN: Explained to the patient etiology and treatment plan. Treatment options discussed at length Previous treatment includes: N.S.A.I.D.s ( non steroidal anti inflammatory drugs) Medrol dose pack Physical therapy Ankle bracing I discussed with the patient using J felt support posterior to lateral malleolus with A.S.O. (Ankle Stabilizing Orthosis) If not improved recommend follow up and further work up May consider revision repair All questions were answered. Noble Castillo appeared to be well informed. Greater than 50% of the visit was spent face to face counseling and/or coordinating care for the patient. Geraldine Bolaños DPM [facility] 12-26-2024 History of Presen t illness Narrative Patient Visit for Noble Castillo 1985 39 year old female SUBJECTIVE: Chief Complaint: Patient presents with: Right Ankle - New, Pain Pain Scales: Verbal (Numeric Rating or Visual Analog Scale) Pain Level: 4 Pain Location: Ankle-Right Description: Sharp, Shooting (electric) Duration Amount of Time: 1 Duration Units: Years Frequency: Continuous Intervention/Comfort measure: Cold, Medication, Exercise (ankle brace) Comments: She is here for pain in the right ankle. Had right foot surgery Dec 2023 by . Pain improves with ankle brace. Additional HPI: very complicated history of bilateral foot surgery by Dr. Fabienne Guerra DPM Treatment for pes plano valgus deformity Re alignment LEFT , arthrodesis talo calcaneal joint RIGHT She was doing well post operative ,however, Now complains of RIGHT lateral hind foot pain for several months Additional Modifying factor: What makes better / worse: Better with A.S.O. (Ankle Stabilizing Orthosis) RIGHT PCP: No primary care provider on file. No past medical history on file. Current Outpatient Medications Medication Sig lamoTRIgine (LAMICTAL) 150 mg tablet Take 150 mg by mouth once daily. sertraline (ZOLOFT) 100 mg tablet Take 150 mg by mouth once daily. SUMAtriptan (IMITREX) 25 mg tablet Take 25 mg by mouth as needed for migraine headache (see administration instructions). AJOVY AUTOINJECTOR 225 mg/1.5 mL auto-injector Inject 225 mg subcutaneously once every month. No current facility-administered medications for this visit. ALLERGIES Allergen Reactions Adhesive Rash No past surgical history on file. No family history on file. Tobacco Use: Not on file REVIEW OF SYSTEMS: The remainder of the ROS was reviewed with the patient and is negative except as noted. OBJECTIVE: General: Pleasant in no acute distress Lower extremity exam: Vascular exam: Normal vascular exam, palpable pluses with brisk capillary fill Neurological exam: Normal neurological exam, gross epicritic sensation intact Dermatological exam: See Epic photo uploaded today: December 26, 2024 Well healed scars from previous surgery Normal exam without rashes or lesions of skin. No evidence of evidence of petechiae, purpura, telangiectasia Musculoskeletal exam: Tenderness to palpation posterior and inferior to lateral malleolus RIGHT ANKLE Local effusion along the course of peroneal tendons With eversion stress peroneal tendons strain of peroneal retinaculum noted - difficult to assess No obvious subluxation peroneal tendons Firm tissue deep to peroneal tendons / possible fibrous impingement Gross overall Manual muscle strength evaluation relatively intact Arthrodesis solid and in good alignment Other Gross range of motion appears to be intact to ankle and foot LABS: Most recent labs reviewed LABORATORY STUDIES: No results for input(s): HB , WBC , PLT , WSR , CRP , CCPABG , RF , INR , CREATININE , ALB , PROT , URICACID , HBA1C , VITD25 in the last [id number] hours. X-ray weight bearing RIGHT FOOT with calcaneus axial MRI reviewed from outside / non [facility] facility ASSESSMENT: Z98.890 History of foot surgery (primary encounter diagnosis) M76.71 Peroneal tendinitis of right lower extremity Z97.8 Orthopedic hardware present PLAN: Explained to the patient etiology and treatment plan. Treatment options discussed at length Previous treatment includes: N.S.A.I.D.s ( non steroidal anti inflammatory drugs) Medrol dose pack Physical therapy Ankle bracing I discussed with the patient using J felt support posterior to lateral malleolus with A.S.O. (Ankle Stabilizing Orthosis) If not improved recommend follow up and further work up May consider revision repair All questions were answered. Noble Castillo appeared to be well informed. Greater than 50% of the visit was spent face to face counseling and/or coordinating care for the patient. Geraldine Bolaños DPM documented in this encounter [facility] 12-26-2024 History of Presen t illness Narrative Reason for Appointment: Patient ID: Noble Castillo is a 39 y.o. female who presents for Well Women Visit Patient presents today for Annual Exam. 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 *10 DAY SUPPLY sertraline (ZOLOFT) 150 mg, Oral, Daily traZODone (DESYREL) 100 mg, Oral, Nightly ALLERGIES Allergies Allergen Reactions Codeine GI intolerance and Unknown Povidone-Iodine Rash and Itching Other Reaction(s): itchy rash Wound Dressing Adhesive Rash and Unknown Other Reaction(s): rash, blisters PROBLEMS Active Ambulatory Problems Diagnosis Date Noted Bipolar II disorder, most recent episode major depressive ([facility]) 02/28/2023 Generalized anxiety disorder ([facility]) 02/28/2023 Tremor of right hand 02/28/2023 Marital/partner relational problem 05/11/2024 Ataxia 07/17/2024 Chronic migraine without aura without status migrainosus, not intractable ([facility]) 07/17/2024 Tremor 07/17/2024 Resolved Ambulatory Problems Diagnosis Date Noted No Resolved Ambulatory Problems Past Medical History: Diagnosis Date Adjustment disorder with mixed anxiety and depressed mood (CMS/HCC) 05/11/2024 Anxiety Chronic otitis media Depression with anxiety Hyperthyroidism (CMS/HCC) IBS (irritable bowel syndrome) Migraines (CMS/HCC) PCOS (polycystic ovarian syndrome) Seasonal allergies HISTORY PAST MEDICAL HISTORY SOCIAL HISTORY Past Medical History: Diagnosis Date Adjustment disorder with mixed anxiety and depressed mood (CMS/HCC) 05/11/2024 Anxiety Chronic otitis media both ears Depression with anxiety Hyperthyroidism (CMS/HCC) IBS (irritable bowel syndrome) Migraines (CMS/HCC) PCOS (polycystic ovarian syndrome) Seasonal allergies Social History Tobacco Use Smoking status: Never Smokeless tobacco: Never Vaping Use Vaping status: Never Used Substance Use Topics Alcohol use: Never Comment: caffeine intake: 1-2 cups per day Drug use: Never FAMILY HISTORY Family History Problem Relation Name Age of [...] disease Other Hypertension Other Thyroid disease Other SURGICAL HISTORY Past Surgical History: Procedure Laterality Date BREAST [...] HYSTERECTOMY WISDOM TOOTH EXTRACTION WISDOM TOOTH EXTRACTION REVIEW OF SYSTEMS Review of Systems: Review of Systems Constitutional: Negative. HENT: Negative. Eyes: Negative. Respiratory: Negative. Cardiovascular: Negative. Gastrointestinal: Negative. Genitourinary: Negative. Musculoskeletal: Negative. Skin: Negative. Neurological: Negative. All other systems reviewed and are negative. Hematological: Negative. Endocrine: Negative. Allergic/Immunologic: Negative. OBJECTIVE Objective: Physical Exam Constitutional: Appearance: Normal appearance. She is well-developed. Genitourinary: Vulva normal. Right Adnexa: not tender and no mass present. Left Adnexa: not tender and no mass present. No cervical discharge. Breasts: Breasts are soft. Right: Normal. Left: Normal. HENT: Head: Normocephalic. Nose: Nose normal. Mouth/Throat: Mouth: Mucous membranes are moist. Cardiovascular: Rate and Rhythm: Normal rate and regular rhythm. Pulmonary: Effort: Pulmonary effort is normal. Breath sounds: Normal breath sounds. Abdominal: General: Bowel sounds are normal. There is no distension. Palpations: Abdomen is soft. Tenderness: There is no abdominal tenderness. There is no guarding or rebound. Musculoskeletal: General: No swelling. Normal range of motion. Cervical back: Normal range of motion. Right lower leg: No edema. Left lower leg: No edema. Neurological: General: No focal deficit present. Mental Status: She is alert and oriented to person, place, and time. Skin: General: Skin is warm and dry. Psychiatric: Mood and Affect: Mood normal. Behavior: Behavior normal. Vitals and nursing note reviewed. Exam conducted with a manager commercial sales present. Vitals: Estimated body mass index is 34.16 kg/m as calculated from the following: Height as of 07/17/24: 5' 4 . Weight as of 12/18/24: 199 lb. BP: No LMP recorded. Patient has had a hysterectomy. ASSESSMENT & PLAN ICD-10-CM 1. Well woman exam with routine gynecological exam Z01.419 Annual Exam: Patient presents today for an annual exam. Patient states she is doing well and has no complaints. Pap was obtained without difficulty. No orders of the defined types were placed in this encounter. Follow Up: Patient is to return in one year for annual unless needed otherwise. Documented by Krystle Haji MA on behalf of: JESICA Tavera documented in this encounter [facility] 12-21-2024 Telephone encounter Note Pt made an appt with our counselor Isaak Berger for 12/28/2024. I then noticed that her last referral was approved in March of 2024 and it says it in September of 2024. I called the patient to let her know that she will need a new referral. She is calling the dr today and asking her to fax a new referral over. I told her to have it say Attn: Krysten, because I was thinking Krysten had to look at the referrals lol So the appt will be under Isaak :) I just wanted to know if I should cancel her appt for next Tuesday or keep it and hope the referral gets approved by then? :) We will send over the referral as soon as we see it in our fax box. Thank you :) [facility] 12-21-2024 Miscellaneous Notes Pt made an appt with our counselor Isaak Berger for 12/28/2024. I then noticed that her last referral was approved in March of 2024 and it says it in September of 2024. I called the patient to let her know that she will need a new referral. She is calling the dr today and asking her to fax a new referral over. I told her to have it say Attn: Krysten, because I was thinking Krysten had to look at the referrals lol So the appt will be under Isaak :) I just wanted to know if I should cancel her appt for next Tuesday or keep it and hope the referral gets approved by then? :) We will send over the referral as soon as we see it in our fax box. Thank you :) documented in this encounter [facility] 12-18-2024 History of Presen t illness Narrative Images from the original note were not included. Noble Castillo is a 39 y.o. female presents for Medication Management. HPI: Patient is here for medication follow up. Patient states she took caplyta 2 weeks. Improved mood and it made me dumb I was making stupid mistakes at work. Then called and said she was having side effects then she got sick. She was on less than two weeks. Patient now feels better since last appt. Patient states she is better without caplyta. Mood is reported as depressed and rates 2(10worst). Anxiety is 1-2(10worst). Sleeping 9-10 hours. Medication compliant. No reported side effects. Denies abuse of substances. Medical problems since last visit. Had Flu and bronchitis. Psychosocial stressors include normal day to day stressors. SUBJECTIVE: PAST MEDICAL HISTORY: Past Medical History: Diagnosis Date Adjustment disorder with mixed anxiety and depressed mood (CMS/HCC) 05/11/2024 Anxiety Chronic otitis media both ears Depression [...] 1-2 cups per day Drug use: Never REVIEW OF SYMPTOMS - MENTAL STATUS EXAM Appearance Appearance: Normal grooming and hygiene. Appears stated age. Dressed appropriately for weather. Behavior Calm, cooperative, pleasant. Good posture.. No abnormal movements. Speech Normal, clear, regular rate, rhythm and volume Affect Full range. Stable. Appropriate and congruent with mood. Mood Euthymic Thought Process Organized, logical, and goal directed Thought Content Denies suicidal and homicidal ideation Perception Denies auditory and visual hallucinations. No evidence of delusions. Orientation Appropriate to age, Person, Place, and Time Memory/Concentration Immediate, recent and remote memory intact Insight/Judgement Good. Able to make reasonable life decisions. OBJECTIVE: Visit Vitals OB Status Hysterectomy Smoking [...] II disorder, most recent episode major depressive ([facility]) MAME Psych Medication List Lamictal 150mg po every day Sertraline 150mg daily Discontinue Caplyta. Trazodone 50mg 1-2 tabs. To notify office if worsening of depression or anxiety. 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 Patient has a follow up on 11/22. [facility] 11-06-2024 Miscellaneous Notes Patient left a voicemail needing a refill on Vraylar 1.5 mg sent to [facility] pharmacy. Patient has a follow up on 11/22. documented in this encounter [facility] 11-01-2024 History of Presen t illness [...] wrist extensors , wrist flexor , and state highway police officer strength 5/5. LUE strength deltoid , biceps , triceps , wrist extensors , wrist flexor , and state highway police officer strength 5/5. RLE strength iliopsoas, quadriceps, tibialis [...] Knee reflex 1+. Price's sign negative. Coordination: Wuxzjd-bs-gmnn testing normal. Rapid alternating movements are normal. [...] and return instructions documented in this encounter [facility] 09-05-2024 History of Presen t illness [...] getting used to new job. Working in [employer] . SUBJECTIVE: PAST MEDICAL HISTORY: Past Medical [...] and Time Memory/Concentration Short term intact and chcf intact Insight/Judgement Good OBJECTIVE: Visit Vitals OB [...] F/U 2 months documented in this encounter [facility] 08-09-2024 History of Presen t illness [...] Trouble swallowing. Denies abuse of substances. In Jul had swallowing study. No new Medical problems [...] and Time Memory/Concentration Short term intact and chcf intact Insight/Judgement Good OBJECTIVE: Visit Vitals BP [...] F/U- 4 weeks documented in this encounter [facility] 07-17-2024 Telephone encounter Note Acknowledged, thank you. [facility] 07-17-2024 Miscellaneous Notes Acknowledged, thank you. Yes, it is in media under ED Report 06 15 24 Are you able to request records from the patient's emergency department visits at [facility] for me to review please? documented in this encounter [facility] 07-17-2024 Telephone encounter Note Yes, it is in media under ED Report 06 15 24 [facility] 07-17-2024 Telephone encounter Note Are you able to request records from the patient's emergency department visits at [facility] for me to review please? [facility] 07-17-2024 History of Presen t illness [...] minutes of use. She has also tried jked-hle-fldkgxh medications and essential oils for her symptoms with minimal relief. The patient has been to [facility] ([facility]) Emergency Department 3 times within the past year for migraines which were not relieved by rizatriptan. She states [facility] did not complete imaging at any of [...] a day. She follows with psychiatry in [place], [place]. She states her psychiatrist attempted to [...] MG EC tablet; Generic drug: pantoprazole rizatriptan ELEMENTARY CLASSROOM TEACHER 10 MG disintegrating tablet; Commonly known as: Maxalt-ELEMENTARY CLASSROOM TEACHER semaglutide 2 MG/1.5ML solution pen-injector; Commonly known [...] wrist extensors , wrist flexor , and state highway police officer strength 5/5. LUE strength deltoid , biceps , triceps , wrist extensors , wrist flexor , and state highway police officer strength 5/5. RLE strength iliopsoas, quadriceps, tibialis [...] reflex 1+. LLE Knee reflex 1+. Coordination: Pjhgmm-bw-ogzq testing normal. Rapid alternating movements are normal. No bradykinesia. Gait: Normal. Review and summary of old records: MRI brain w and w/o contrast on 10/14/2022: No acute intracranial pathology or postcontrast enhancement. Assessment/Plan Diagnoses and all orders for this visit: Chronic migraine without aura without status migrainosus, not intractable (CMS/[facility]) It is my impression that the patient [...] new or worsening symptoms. Ericka Aguilar NP [facility] Advanced Neurology documented in this encounter [facility] 07-17-2024 Instructions Ericka Aguilar NP - 07/17/2024 8:20 AM EDT - Start Ajovy 225 mg subcutaneous once every 30 days for migraine prevention documented in this encounter [facility] 04-11-2024 Evaluation + Plan note Diagnostic Tests PendingCalprotectin, Fecal 04/11/24Enteric Panel by PCR 04/11/24O & P Exam, Routine 04/11/24Pancreatic Elastase, Fecal 04/11/24 [facility] 04-09-2024 Evaluation + Plan note Future Scheduled TestsPancreatic Elastase, Fecal 04/09/24Calprotectin, Fecal 04/09/24O & P Exam, Routine 04/09/24Clostridium Difficile PCR 04/09/24Enteric Panel by PCR 04/09/24 [facility] 04-09-2024 Evaluation + Plan note Diagnostic Tests PendingCeliac Disease Comprehensive 04/09/24 Future Scheduled TestsPancreatic Elastase, Fecal 04/09/24Calprotectin, Fecal 04/09/24O & P Exam, Routine 04/09/24Clostridium Difficile PCR 04/09/24Enteric Panel by PCR 04/09/24 [facility] 10-17-2023 Evaluation note Encounter Date Diagnosis Assessment [...] while sleeping. questions and concerns were addressed [facility] Other 10-11-2023 Evaluation note* Encounter Date Diagnosis [...] no improvement in 2 to 3 days [facility] Other 03-20-2023 Evaluation + Plan note Diagnostic Tests Pending * [facility] and [facility] 01/17/23 [facility]02-16-2023 NotePatient Education Materials Follows: Otitis Media, [...] Follow these instructions at home: ? Take cgbi-gzz-xnyyvlz and prescription medicines only as told by [...] provider. Document Revised: 01/25/2022 Document Reviewed: 01/25/2022 [employer] Patient Education ? 2021 [employer].[facility] [id number] Note Patient Education Materials Follows:[facility] [id number] Evaluation note * Encounter Date Diagnosis Assessment [...] medication before and did have stomach upset [facility] Other 11-03-2022 Evaluation note* Encounter Date Diagnosis Assessment Notes Treatment Notes Treatment Clinical Notes Aug, Dizziness (ICD-10 - R42) Aug, History of reactive hypoglycemia (ICD-10 - Z86.39) Start with keeping journal of symptoms. Take blood sugars when you experience symptoms. [facility] Other 09-10-2022 Evaluation note* Encounter Date Diagnosis Assessment Notes Treatment Notes Treatment Clinical Notes Jul, Intractable migraine without aura and without status migrainosus (ICD-10 - G43.019) Take medication as directed. Stay away from known triggers. Follow up with primary care provider or neurology if symptoms persist. Phenergan and Toradol Im given in office. Explained medication will cause drowsiness. [facility] Other 08-27-2022 Evaluation note* Encounter Date Diagnosis Assessment Notes Treatment Notes Treatment Clinical Notes May, Migraine aura without headache (ICD-10 - G43.109) [facility] Other 07-25-2022 Evaluation note* Encounter Date Diagnosis [...] (ICD-10 - G43.109) Continue medication as needed [facility] Other 12-03-2021 Evaluation note* Encounter Date Diagnosis [...] no improvement in 5 to 7 days [facility] Other 10-23-2021 Evaluation note* Encounter Date Diagnosis [...] Patient care instructions given in writting by [facility] Care At Home document [facility] Other Evaluation noteNo InformationNortDepartment of [facility] Other Evaluation noteNo assessment information available [facility] Work Phone: Evaluation note* Diagnosis Bipolar II disorder, most recent episode major depressive ([facility]/HCC) Other bipolar disorders Generalized anxiety disorder ([facility]) Generalized anxiety disorder documented in this encounter [...] without aura without status migrainosus, not intractable ([facility])- Primary Tremor Abnormal involuntary movements documented [facility] encounter [facility]* Diagnosis Marital/partner relational problem Counseling for marital and partner problems, unspecified Bipolar II disorder, most recent episode major depressive ([facility]) Other bipolar disorders documented in this encounter [facility] HealthcareEvaluation note* Diagnosis Chronic migraine without aura without status migrainosus, not intractable ([facility])- Primary Tremor Abnormal involuntary movements documented in this encounter [facility] HealthcareEvaluation note* Diagnosis Bipolar II disorder, most recent episode major depressive ([facility]) Other bipolar disorders documented in this encounter [facility] HealthcareEvaluation note* Diagnosis Bipolar II disorder, most recent episode major depressive ([facility]) Other bipolar disorders Insomnia, unspecified type Generalized anxiety disorder ([facility]) Generalized anxiety disorder documented in this encounter [facility] HealthcareEvaluation note* Diagnosis Bipolar II disorder, most recent episode major depressive ([facility]) Other bipolar disorders Generalized anxiety disorder ([facility]) Generalized anxiety disorder documented in this encounter [facility] HealthcareEvaluation note* Diagnosis Well woman exam with routine gynecological exam Routine gynecological examination documented in this encounter [facility] HealthcareEvaluation note* Diagnosis History of foot surgery- Primary Personal history of surgery to other organs Peroneal tendinitis of right lower extremity Other enthesopathy of ankle and tarsus Orthopedic hardware present Right ankle pain, unspecified chronicity History of foot surgery Personal history of surgery to other organs Peroneal tendinitis of right lower extremity Other enthesopathy of ankle and tarsus [facility] Right ankle pain, unspecified chronicity History of foot surgery Personal history of surgery to other organs Peroneal tendinitis of right lower extremity Other enthesopathy of ankle and tarsus [facility] Diagnosis Bipolar II disorder, most recent episode major depressive ([facility]) Other bipolar disorders documented in this encounter [facility] HealthcareHistory general Narrative - Reported* Type Description Date Medical History bipolar depression Medical History hx stomach ulcers Medical History migraine headaches Surgical History T&A 1997 Surgical History [place] Teeth 2004 Surgical History Keloid Scar from [...] Surgical History hysterectomy Hospitalization History See Above [facility] Other History general Narrative - Reported* Type Description Date Medical History bipolar depression Medical History hx stomach ulcers Medical History migraine headaches Medical History IBS Medical History chronic depression Medical History anxiety Medical History Gestational diabetes - yes Medical History PCOS Medical History Esophageal reflux Medical History fatigue Medical History lactose intolerance Medical History obesity Surgical History T&A 1998 Surgical History [place] Teeth 2005 Surgical History Keloid Scar from [...] reconstruction 2 021 Hospitalization History See Above [facility] Other Hisztqu general Narrative - Reported* Type Description Date Medical History bipolar depression Medical History hx stomach ulcers Medical History migraine headaches Medical History IBS Medical History chronic depression Medical History anxiety Medical History Gestational diabetes - yes Medical History PCOS Medical History Esophageal reflux Medical History fatigue Medical History lactose intolerance Medical History obesity Surgical History T&A 1997 Surgical History [place] Teeth 2004 Surgical History Keloid Scar from [...] reconstruction 2 021 Hospitalization History See Above [facility] Other Hospital course Narrative No data available for this section [facility] No data available for this section [facility] No data available for this section [facility] Advance Directives No Advanced Directives Records Found Advance Directive Response Recorded Date/ Time Advance Directives No April 08 0 6:58am Advance Directive Response Recorded Date/ Time Advance Directives No April 08 0 7:58am Chief Complaint and Reason for Visit [facility] Dysmenorrhea,Dyspareunia,Abnormal Uterine [...] / Behavioral Health Diagnoses med mgmt Procedures [place] OFFICE/OUTPATIENT ESTABLISHED LOW MDM [facility] [address] [address] Phone: tel: fax: Chelsea Virk, STEEL ENGRAVER-TOWER DRAGLINE OPERATOR [address] [address] Phone: tel: fax: Referral ID Status Reason Start Date Expiration Date Visits Re quested Visits Authorized [id number] Closed 10/11/2024 04/09/2025 1 1 Reason Comments [...] Reason Onset Date Comments Med Refill 11/06/2024 Reason Comments Well Women Visit Reason Comments Radiology XR Reason Comments New Pain Reason Comments Radiology XR Specialty Diagnoses / Procedures Referred By Contac t Referred To Contact XR IMAGING Diagnoses Right ankle pain, unspecified chronicity Procedures XR ANKLE GENERAL 3V AP/LAT/OBL RIGHT RADEX ANKLE COMPLETE MINIMUM 3 VIEWS Geraldine Bolaños DPM [address] [place] [address] Phone: tel: fax: [place] [phone] Referral ID Status Reason Start Date Expiration Date V isits Requested Visits Authorized [id number] Closed Auto-Generate d Referral 12/12/2024 01/11/2026 1 1 Reason Comments New Patient Assessment Care Teams (unrecognized sec tion and content) Team Status: Inactive Member Role Status Dates LYDIA MercedesP-C Attending Provider Active PHYSICIAN NO FAMILY Primary Care Provider Active Team Status: Active Member Role Status Dates PHYSICIAN NO FAMILY Primary Care Provider Active Team Status: Inactive Member Role Status Dates Lambert Gavin DO Attending Provider Active LYDIA MercedesP-C Primary Care Provider Active Team Status: Active Member Role Status Dates PHYSICIAN NO FAMILY Primary Care Provider Active LYDIA MercedesP-C Attending Provider Active Team Status: Active Member Role Status Dates LYDIA MercedesP-C Primary Care Provider Active Team Status: Inactive Member Role Status Dates LYDIA MercedesP-C Primary Care Provider Active Alexis Lincoln MD Attending Provider Active Team Status: Inactive Member Role Status Dates LYDIA MercedesP-C Primary Care Provider Active Lambert Gavin DO Attending Provider Active Team Status: Inactive Member Role Status Dates Ml Chisholm NP Attending Provider Active Start: October 17, 2023 End: October 17, 2023 Team Status: Inactive Member Role Status Dates Ame Zaragoza MINE UTILITY OPERATOR-C Primary Care Provider Active Start: December 08, 2023 End: December 08, 2023 Fabienne Guerra DPM MS Attending Provider Active Start: December 08, 2023 End: December 08, 2023 Team Status: Active Member Role Status Dates MINA Mercedes-BC Primary Care Provider Activ e Team Status: Inactive Member Role Status Dates Sera Lares NP-C Attending Provider Active S tart: February 26, 2024 End: February 26, 2024 MINA Mercedes-BC Primary Care Provider Activ e Start: February 26, 2024 End: February 26, 2024 Music Education Adjunct Professor Relationship Specialty Start Date End Date Unallocated, [place] [address] PCP - General Family Medicine 05/11/24 Music Education Adjunct Professor Relationship Specialty Start Date End Date Unallocated, [place] [address] PCP - General Family Medicine 05/11/24 Music Education Adjunct Professor Relationship Specialty Start Date End Date Unallocated, [place] [address] PCP - General Family Medicine 05/11/24 Team Status: Inactive Member Role Status Dates Ame Zaragoza [facility] Primary Care Provider Activ e Start: September 19, 2024 End: September 19, 2024 Taisha Tejada APRN Attending Provider Active S tart: September 19, 2024 End: September 19, 2024 Music Education Adjunct Professor Relationship Specialty Start Date End Date Unallocated, [place] [address] PCP - General Family Medicine 05/11/24 Music Education Adjunct Professor Relationship Specialty Start Date End Date Unallocated, [place] [address] PCP - General Family Medicine 05/11/24 Music Education Adjunct Professor Relationship Specialty Start Date End Date Unallocated, [place] [address] PCP - General Family Medicine 05/11/24 Music Education Adjunct Professor Relationship Specialty Start Date End Date Unallocated, [place] [address] PCP - General Family Medicine 05/11/24 Music Education Adjunct Professor Relationship Specialty Start Date End Date Unallocated, [place] [address] PCP - General Family Medicine 05/11/24 Music Education Adjunct Professor Relationship Specialty Start Date End Date Unallocated, Vanessa Pulido MD [address] [place] [address] PCP - General Family Medicine 05/11/24 Akira Gavin DO [address] [address] Referring Physician Neurology 11/01/24 Music Education Adjunct Professor Relationship Specialty Start Date End Date Unallocated, Vanessa Pulido MD [address] [place] [address] PCP - General Family Medicine 05/11/24 Akira Gavin DO [address] [address] Referring Physician Neurology 11/01/24 Music Education Adjunct Professor Relationship Specialty Start Date End Date Unallocated, Vanessa Pulido MD [address] [place] [address] PCP - General Family Medicine 05/11/24 Akira Gavin DO [address] [address] Referring Physician Neurology 11/01/24 Music Education Adjunct Professor Relationship Specialty Start Date End Date Unallocated, Vanessa Pulido MD [facility] [place] [address] PCP - General Family Medicine 05/11/24 Akira Gavin DO [address] [address] Referring Physician Neurology 11/01/24 Chelsea Virk, STEEL ENGRAVER-TOWER DRAGLINE OPERATOR [address] [place] [address] Nurse Practitioner Psychiatry 11/16/24 Music Education Adjunct Professor Relationship Specialty Start Date End Date Unallocated, Vanessa Pulido MD [address] [place] [address] PCP - General Family Medicine 05/11/24 Akira Gavin DO [address] [place], [place] [id number] Referring Physician Neurology 11/01/24 Chelsea Virk, STEEL ENGRAVER-TOWER DRAGLINE OPERATOR [address] [facility] [address] [place] [address] Nurse Practitioner Psychiatry 11/16/24 Music Education Adjunct Professor Relationship Specialty Start Date End Date Unallocated, Vanessa Pulido MD [address] [place] [address] PCP - General Family Medicine 05/11/24 Akira Gavin DO [address] [place] [id number] Referring Physician Neurology 11/01/24 Chelsea Virk, STEEL ENGRAVER-TOWER DRAGLINE OPERATOR [address] [facility] [address] [place] [address] Nurse Practitioner Psychiatry 11/16/24 Music Education Adjunct Professor Relationship Specialty Start Date End Date Unallocated, Vanessa Pulido MD [address] [place] [address] PCP - General Family Medicine 05/11/24 Akira Gavin DO [address] [address] Referring Physician Neurology 11/01/24 Chelsea Virk, STEEL ENGRAVER-TOWER DRAGLINE OPERATOR [address] [facility] [address] [place] [address] Nurse Practitioner Psychiatry 11/16/24 Music Education Adjunct Professor Relationship Specialty Start Date End Date Unallocated, Vanessa Pulido MD [address] [place] [address] PCP - General Family Medicine 05/11/24 Akira Gavin DO [address] [address] Referring Physician Neurology 11/01/24 Chelsea Virk, STEEL ENGRAVER-TOWER DRAGLINE OPERATOR [address] [facility] [address] [place] [address] Nurse Practitioner Psychiatry 11/16/24 Music Education Adjunct Professor Relationship Specialty Start Date End Date Unallocated, Vnaessa Pulido MD [address] [place] [address] PCP - General Family Medicine 05/11/24 Akira Gavin DO [address] [place] [id number] Referring Physician Neurology 11/01/24 Chelsea Virk, STEEL ENGRAVER-TOWER DRAGLINE OPERATOR [address] [facility] [address] [place] [address] Nurse Practitioner Psychiatry 11/16/24 Music Education Adjunct Professor Relationship Specialty Start Date End Date Unallocated, Vanessa Pulido MD [address] [place] [address] PCP - General Family Medicine 05/11/24 Akira Gavin DO [address] [address] Referring Physician Neurology 11/01/24 Chelsea Virk APRN-TOWER DRAGLINE OPERATOR [address] [facility] [address] [place] [address] Nurse Practitioner Psychiatry 11/16/24 Music Education Adjunct Professor Relationship Specialty Start Date End Date Unallocated, [place] [address] PCP - General Family Medicine 05/11/24 Akira Gavin DO [address] [place] [address] Referring Physician Neurology 11/01/24 Chelsea Virk APRN-TOWER DRAGLINE OPERATOR [address] [facility] [address] [place] [address] Nurse Practitioner Psychiatry 11/16/24 Goals (unrecognized section and content) Goals may be documented in a n alternate section INFORMATION SOURCE (unrecogn ized section and content) DATE CREATED AUTHOR 02/12/2023 [facility] DATE CREATED AUTHOR AUTHOR'S ORGANIZ ATION 04/20/2023 [facility] DATE CREATED AUTHOR AUTHOR'S ORGANIZ ATION 12/14/2023 [facility] DATE CREATED AUTHOR AUTHOR'S ORGANIZ ATION 04/12/2024 [facility] DATE CREATED AUTHOR AUTHOR'S ORGANIZ ATION 04/13/2024 [facility] DATE CREATED AUTHOR AUTHOR'S ORGANIZ ATION 04/18/2024 [facility] DATE CREATED AUTHOR AUTHOR'S ORGANIZ ATION 04/19/2024 [facility] DATE CREATED AUTHOR AUTHOR'S ORGANIZ ATION 04/21/2024 [facility] DATE CREATED AUTHOR AUTHOR'S ORGANIZ ATION 04/25/2024 [facility] DATE CREATED AUTHOR AUTHOR'S ORGANIZ ATION 12/28/2024 [facility] CREATED AUTHOR AUTHOR'S ORGANIZ ATION 01/06/2025 [facility] EPIC Source Comments (unrecognize d section and content) In the event this informatio n is protected by the Federal Confidentiality of Alcohol and Drug Abuse Patient Records regulations: The Federal rules restrict any use of the information to criminally investigate or prosecute any alcohol or drug abuse patient.[facility] the event this information is protected by the Federal Confidentiality of Alcohol and Drug Abuse Patient Records regulations: The Federal rules restrict any use of the information to criminally investigate or prosecute any alcohol or drug abuse patient.[facility] the event this information is protected by the Federal Confidentiality of Alcohol and Drug Abuse Patient Records regulations: The Federal rules restrict any use of the information to criminally investigate or prosecute any alcohol or drug abuse patient.[facility] FOR RECORDS PERTAINING TO PATIENTS WHO ARE [...] BE BASED ON THE PRIMARY CLINICAL RECORDS. [facility]. provides no warranty or guarantee of the accuracy or completeness of information in this document.
[2025-01-08 16:21] LABS: Basophils Percent Auto 0.4 % (0.2-2.0); Eosinophils Absolute Auto 0.1 10^3/uL (0.0-0.7); Hematocrit 41.7 % (36.0-48.0); Immature Granulocytes Abs Auto 0.01 10^3/uL (0.00-0.03); Immature Granulocytes Pct Auto 0.1 % (0.0-0.5); Lymphocytes Absolute Auto 2.9 10^3/uL (1.2-3.8); Lymphocytes Percent Auto 36.6 % (20.5-60.0); Mean Corpuscular HGB Conc 33.6 g/dL (29.9-35.2); Mean Corpuscular Hemoglobin 29.5 pg (26.7-34.0); Mean Corpuscular Volume 87.8 fL (81.0-99.0); Mean Platelet Volume 10.9 fL (9.5-13.5); Monocytes Absolute Auto 0.4 10^3/uL (0.3-0.8); Monocytes Percent Auto 4.7 % (1.7-12.0); Neutrophils Absolute Auto 4.6 10^3/uL (1.4-6.5); Neutrophils Percent Auto 57.2 % (43.0-75.0); Platelet Count 260 10^3/uL (150-450); Red Blood Count 4.75 10^6/uL (4.20-5.40); Red Cell Distribution Width 12.5 % (11.0-15.0)
[2025-01-08 16:43] LABS: Erythrocyte Sedimentation Rate 14 mm/hr (<=20)
[2025-01-08 16:50] LABS: Alanine Aminotransferase 31 U/L (14-59); Albumin Globulin Ratio 1.1; Albumin Level 3.6 g/dL (3.4-5.0); Alkaline Phosphatase 93 U/L (46-116); Anion Gap 10.8; Aspartate Amino Transferase 13 U/L (15-37); BUN Creatinine Ratio 13.9; Bilirubin Total 0.2 mg/dL (0.2-1.0); C Reactive Protein 0.52 mg/dL (<=0.50); Calcium 9.1 mg/dL (8.5-10.1); Carbon Dioxide 27.9 mmol/L (21.0-32.0); Chloride 104 mmol/L (98-107); Estimated GFR (African America >60 (>=60 mL/min/1.73m^2); Estimated GFR (Non-African Ame >60 (>=60 mL/min/1.73m^2); Globulin 3.3 g/dL; Glucose 100 mg/dL (74-106); Potassium 3.7 mmol/L (3.5-5.1); Sodium 139 mmol/L (136-145); TSH W/ REFLEX FT4 2.284 uIU/mL (0.358-3.740); Total Protein 6.9 g/dL (6.4-8.2)
[2025-01-10 03:07] LABS: Vitamin B12 517 pg/mL (232-1245)
[2025-01-10 04:07] LABS: Rheumatoid Factor (RF) 24.1 IU/mL (<14.0)
[2025-01-10 10:08] LABS: ANA Direct Negative (Negative)
[2025-01-10 14:10] LABS: Anti-CCP Ab, IgG/IgA 7 units (0-19)
== END 2025-01-08 15:49 | disposition home or self-care (01) ==
LOC: LAB 15:50
PROVIDERS: PCP Nurse Practitioner Family; Visit Provider Student in an Organized Health Care Education/Training Program
DX: R20.2 Paresthesia of skin (principal); L65.9 Nonscarring hair loss, unspecified; R21 Rash and other nonspecific skin eruption; M25.50 Pain in unspecified joint
CPT/HCPCS: 36415; 80053; 82607; 84443; 85025; 85652; 86038; 86140; 86200; 86431

== ENCOUNTER 2025-05-11 17:13 | Emergency (ER) | payer OTHER, SELFPAY ==
[2025-05-11 17:41] VITALS: BP 141/97; PULSE 90; TEMP 36.8; O2SAT 97; BMI 34.2
--- OUTSIDE RECORDS SUMMARY | 2025-05-11 17:51 | XMS_ITS | CCD ---
Author Organization [facility] Care Team Providers Care Produce Sorter Name Role Phone Eric ([facility])Kit Attending Provider Dewayne James Attending Provider Ame Zaragoza Primary Care Provider Costa Armando [...] ZIEBER, DR RAFAEL Mattson Consulting Unavailable HIGHLANDER, PETER Zaina Admitting Unavailable HIGHLANDER, PETER Zaina Consulting Unavailable NIK, AME Primary Care Unavailable HIGHLANDER, PETER D Admitting Unavailable HIGHLANDER, PETER Zaina Attending Unavailable ZIEBER, DR RAFAEL Mattson Consulting Unavailable HIGHLANDER, FABIENNE Mahajan Consulting Unavailable BRITNI GRANT Admitting Unavailable NADERER, DR CONOR Medina Primary Care Unavailable BRITNI GRANT Attending Unavailable NIK, AME Primary Care Unavailable HIGHLANDER, PETER D Admitting Unavailable HIGHLANDER, PETER D Attending Unavailable Ml Chisholm Unavailable KRISTIN Zaragozahanie Primary Care Provider U [facility] Charlie, GER Mahajan Attending Provider [phone] KRISTIN Zaragoza Ame Primary Care Provider U [facility], GER Mahajan Attending Provider AME ZARAGOZA Primary Care Physician Lester Mcelroy Attending Unavailable NIK, AME Primary Care Unavailable Lester Mcelroy AAnnalee Admitting Unavailable Lester Mcelroy Attending Unavailable NIK, AME Primary Care Unavailable Lester Mcelroy Admitting Unavailable NIK, AME Primary Care Unavailable Lester Mcelroy Admitting Unavailable Lester Mcelroy AAnnalee Attending Unavailable Unallocated , Noms Provider Primary Care Provi concepción Unallocated , Noms Provider Primary Care Provi concepción Akira Gavin DO Unavailable Sully DUNN-Chelsea ROBBINS Unavailable Unavailable Primary Care Provider UnavailGERALDINE Gonsalves Attending Unavailable SELF Referring Unavailable GERALDINE BOLAÑOS Referring Unavailable BERGER, ISAAK Attending Unavailable MINERVA-NOSSEK, CHELSEA M Referring Unavailab le CHRISTINE HELTON Attending Unavailable MINERVA-NOSSEK, CHELSEA M Attending Unavailab le BERGER, ISAAK Attending Unavailable BERGER, ISAAK Attending Unavailable MINERVA-NOSSEK, CHELSEA M Attending Unavailab le BERGER, ISAAK Attending Unavailable KAYLYNN JARA Attending Unavailable BERGER, ISAAK Attending Unavailable MINERVA-NOSSEK, CHELSEA M Attending Unavailab le BERGER, ISAAK Attending Unavailable MINERVA-NOSSEK, CHELSEA M Referring Unavailab le BERGER, ISAAK Attending Unavailable BERGER, ISAAK Attending Unavailable MINERVA-NOSSEK, CHELSEA M Referring Unavailab le BERGER, ISAAK Attending Unavailable ANA, YUE Attending Unavailable MINERVA-NOSSEK, CHELSEA M Attending Unavailab le AGUILARERICKA Attending Unavailable BERGER, ISAAK Attending Unavailable AMALUIS EDUARDO CRAWFORD Attending Unavailable BERGER, ISAAK Attending Unavailable MINERVA-NOSSEK, CHELSEA M Attending Unavailab le BERGER, ISAAK Attending Unavailable MINERVA-NOSSEK, CHELSEA M Attending Unavailab le MINERVA-NOSSEK, CHELSEA M Attending Unavailab le STUDD, BUCK E Primary Care Physician Malcolm Torres Attending Unavailable Malcolm Torres Admitting Unavailable Studd, Buck E Primary Care Unavailable Ame Zaragoza Primary Care Unavailable CHRIS ORDRÍGUEZ Referring Unavailable STUDD, BUCK E Primary Care Unavailable MoFlorinda herronamad A. Admitting Unavailable Mogermaine Mohamad A. Attending Unavailable Mouchli, Mohamad A. Referring Unavailable STUDD, BUCK Primary Care Unavailable Mouchli, Mohamad A. Attending Unavailable STUDD, BUCK Primary Care Unavailable Mouchli, Mohamad A. Attending Unavailable STUDD, BUCK Primary Care Unavailable Unavailable Unavailable Unavailable Allergies Allergy Classification Reported Allergen(s) Allergy Type Date of Onset Reaction(s) Facility Opioid Agonists (3 sources) Codeine; 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: [codeine] Drug Allergy Unknown (qualifier value) [facility] Povidone-Iodine (3 sources) Povidone-Iodine ; 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: [povidone iodine topical] Drug Allergy Unknown (qualifier value) [facility] (9 sources) Adhesive Tape; 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: [Adhesive tape] Allergy to substance 4 Rash/itching [facility] Comment on above: states anything stic ky causes itching/rash (7 sources) paper tape Allergy to substance 1 Rash/itching [facility] (20 sources) Codeine; 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: [codeine] Drug Allergy 8 Unknown (qualifier value), GI intolerance, Unknown [facility] (20 sources) Povidone-Iodine ; 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: [povidone iodine topical] Drug Allergy 8 Unknown (qualifier value), Rash, Itching [facility] (13 sources) bandaids Propensity to adverse reactions rash [facility] Other (16 sources) Polyester Propensity to adverse reactions 3 rash [facility] (7 sources) Povidone-Iodine ; 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: [Betadine] Drug Allergy 2 itchy rash [facility] (9 sources) Adhesive bandage; 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: [Adhesive Bandage] Drug allergy Unknown (qualifier value) [facility] (2 sources) Codeine Drug Allergy [address] [facility] (7 sources) Adhesive agent; 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: [ADHESIVE] Allergy to substance 0 Rash [facility] (20 sources) Wound Dressing Adhesive Drug Allergy 0 Rash, Unknown [facility] (1 source) Adhesive Tape; 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: [Tape] Propensity to adverse reactions to drug (disorder) [facility] Repository Medications Current Medications Medication Drug Class(es) Dates Sig (Normalized) Sig (Original) Tylenol (1 source) Start: 03-14-2025 Tylenol See Instructions, Oral, Refills(s) 0, Pain/Fever Start Date: 03/14/25 Status: Ordered Repeat number: 1 Fioricet (1 source) Barbiturate, Central Nervous System [...] Daily at bedtime September 19, 2024 4:39pm End: 01-30-2025 take 1 capsule by mouth once daily Cariprazine HCl (Vraylar) 4.5 MG capsule Take 4.5 mg by mouth 1 (one) time each day at the same time 01/30/2025 Discontinued (Therapy completed) Vraylar Active Centrum Women's oral tablet (4 [...] BID, # 540 tab(s), Refills(s) 0, Pharmacy: [facility]/pharmacy #[id number], 162, cm, 04/09/24 13:38:00 EDT, Height/Length Dosing, 99.2, kg, 04/09/24 13:38:00 EDT, Weight Dosing Start Date: 04/09/24 Status: Ordered colestipol hydrochloride 1000 mg oral tablet (1 source) Bile Acid Sequestrant Start: 03-14-2025 take 2 tablets by mouth twice daily Colestid 1 g Tab 2 gm = 2 tab(s), Oral, BID, with a full glass of water, # 360 tab(s), Refills(s) 0, [id number] 162, cm, 03/14/25 8:51:00 EDT, Height/Length Dosing, 90.9, kg, 03/14/25 8:51:00 EDT, Weight Dosing Start Date: 03/14/25 Status: Ordered Quantity: 360.0 Unit: tab(s) Repeat number: 1 Indications: Unspecified abdominal pain; Heartburn; famotidine 40 mg oral tablet (2 sources) Histamine-2 Receptor Antagonist Start: 04-08-2025 take 1 tablet by mouth twice daily Pepcid 40 mg Tab 40 mg = 1 tab(s), Oral, BID, # 90 tab(s), Refills(s) 5 Start Date: 04/08/25 Status: Ordered Quantity: 90.0 Unit: tab(s) Repeat number: 1 Start: 03-14-2025 take 1 mg by mouth o nce daily at bedtime famotidine 40 mg Tab mg tab(s), Oral, Once a day (at bedtime), Refills(s) 0, Control of stomach acid Start Date: 03/14/25 Status: Ordered Repeat number: 1 fexofenadine hydrochloride 180 mg oral tablet (1 source) Histamine-1 Receptor Antagonist take 1 tablet by mouth once daily Marquita Allergy 180 MG 1 tablet Swallow whole with water; do not take with fruit juices. Orally Once a day Active fluticasone propionate 0.05 mg/actuat metered dose nasal spray (20 sources) Corticosteroid Start: 04 End: 12-26-19 take 2 spray(s) nasal route once daily fluticasone (Flonase) 50 MCG/ACT nasal spray Administer 2 sprays into each nostril Daily 02/26/2024 12/26/2024 Discontinued (Other) Start: 02-26-2024 End: 09-19-2024 take 1 spray(s) nasal route once daily Fluticasone Propionate 50 mcg/actuation spray,suspension Discontinued 2 SPRAY INTRANASAL Daily February 25, 2024 11:00pm September 19, 2024 4:39pm administer into each nostril 1.5 ml fremanezumab-vfrm 150 mg/ml prefilled syringe (20 sources) Start: 03-14-2025 inject 1 mg by subcutaneous injection every month Ajovy 225 mg/1.5 mL subcutaneous solution mg, SubCutaneous, qMonth, Refills(s) 0, Migraine headache Start Date: 03/14/25 Status: Ordered Repeat number: 1 Start: 02-05-2025 fremanezumab ( Ajovy) 225 MG/1.5ML auto-injector Indications: Chronic migraine without aura without status migrainosus, not intractable (CMS/HCC) Inject 1 pen (225 mg) under the skin every 28 (twenty-eight) days 1.5 mL 2 02/05/2025 Active Start: 07-17-2024 End: 02-05-2025 inject 225 mg by subcutaneous injection every 30 days Ajovy 225 MG/1.5ML auto-injector Inject 225 mg under the skin every 30 (thirty) days 01/08/2025 02/05/2025 Discontinued (Reorder) inject 225 mg by sub cutaneous injection [...] Mood Stabilizer, Anti-epileptic Agent Start: 02-26-2024 End: 04-30-2025 take 1 tablet by mouth once daily lamoTRIgine (LaMICtal) 150 MG tablet Indications: Bipolar II disorder, most recent episode major depressive (CMS/HCC) Take 1 tablet (150 mg) by mouth Daily 90 tablet 01/30/2025 04/30/2025 Active Start: 11-25-2020 End: 09-19-2024 take 1 mg by mouth twice daily Lamictal 150 mg Tab mg tab(s), Oral, BID, Refills(s) 0, Other (see comment) Start Date: 04/09/24 Status: Ordered Repeat number: 1 take 1 tablet by jerri th every twenty-four hours LaMICtal 100 MG 1 tablet Orally Once a day Active take 1 tablet by jerri th every twenty-four hours lamoTRIgine 50 MG 1 tablet Orally Once a day Active take 1 tablet by jerri th every twenty-four hours lamoTRIgine 200 MG 1 tablet Orally Once a day Active Dltuakfypa-Dvhqzin-Lyboenpau in (Folinic-Plus) 4-50-2 mg tablet (7 sources) Start: 11-25-2020 take 1 tablet by mouth once daily Utklatxqoo-Akrdezf-Nhvqoxvdaau (Folinic-Plus) 4-50-2 mg tablet Active 1 TAB PO Daily November 25, 2020 10:32am Start: 11-25-2020 End: 09-19-2024 take 1 tablet by mouth once daily Fbmgcrsqfb-Ddnujix-Kpdejirausk (Folinic- Plus) 4-50-2 mg tablet Discontinued 1 TAB PO Daily November 25, 2020 12:00am September 19, 2024 4:40pm Start: 11-25-2020 take 1 tablet by jerri th once daily Koddavbxkg-Reutocf-Libkdoyeypt (Folinic- Plus) 4-50-2 mg tablet Active 1 TAB PO Daily November 25, 2020 12:00am Start: 11-25-2020 take 1 tablet by jerri th once daily Nezscfpwwv-Rxqqbck-Hoshsohkuho (Folinic- Plus) 4-50-2 mg tablet Active 1 [...] Discontinued (Other) take 1 tablet by jerri th every twenty-four hours Meloxicam 15 MG 1 tablet Orally Once a day Active nitroglycerin 0.004 mg/mg rectal ointment (1 source) Nitrate Vasodilator Start: 06-28-2019 Rectiv 0.4% rectal ointment 1 suraj, Rectal, q12hr, 30 gram, Refill(s) 0, [facility] Start Date: 06/28/19 Status: Ordered [place]-3 (1 source) Start: 04-16-2019 [place]-3 Oral, Daily, Refill(s) 0, Prophylaxis Start Date: 04/16/19 Status: Ordered [place]-3 Fatty Acids (Fish Oil Concentrate) 1,000 mg Capsule (7 sources) Start: 11-25-2020 take 1 capsule by mouth once daily [place]-3 Fatty Acids (Fish Oil Concentrate) 1,000 mg Capsule Active 1000 MG PO Daily November 25, 2020 10:35am Start: 11-25-2020 End: 09-19-2024 take 1 capsule by mouth once daily [place]-3 Fatty Acids (Fish Oil Concentrate) 1,000 mg Capsule Discontinued 1000 MG PO Daily November 25, 2020 12:00am September 19, 2024 4:40pm Start: 11-25-2020 take 1 capsule by [facility] once daily [place]-3 Fatty Acids (Fish Oil Concentrate) 1,000 mg Capsule Active 1000 MG PO Daily November 25, 2020 12:00am Start: 11-25-2020 take 1 capsule by [facility] once daily [place]-3 Fatty Acids (Fish Oil Concentrate) 1,000 mg [...] (Other) Start: 08-10-2023 take 1 tablet by [facility] every twelve hours predniSONE 20 MG 1 tablet Orally bid for 5 day(s) Jul, Not-Taking/PRN predniSONE Activ e Probiotic (13 sources) Probiotic Active Probiotic Formula (Bacillus Coagulans) (5 sources) Start: 04-16-2019 take 1 capsule by mouth once daily Probiotic Formula (Bacillus Coagulans) 1 cap(s), Oral, Daily, Refill(s) 0, Prophylaxis Start Date: 04/16/19 Status: Ordered Repeat number: 1 Start: 04-16-2019 take 1 capsule by mo [facility] once daily Probiotic Formula (Bacillus Coagulans) 1 cap(s), Oral, Daily, Refill(s) 0, Prophylaxis Start Date: 04/16/19 Status: Ordered 24 hr propranolol hydrochloride 120 mg extended release oral capsule (20 sources) beta-Adrenergic Gricel Start: 11-01-2024 End: 12-26-2024 take 1 capsule by mouth once daily [...] 90 capsule 08/06/2024 11/01/2024 Discontinued (Therapy completed) End: 01-30-2025 take 60 mg by mouth once daily PROPRANOLOL HCL ER PO T adelso 60 mg by mouth Daily 01/30/2025 Discontinued (Therapy completed) 1 mg dose 1.5 [...] sources) Serotonin Reuptake Inhibitor Start: 04-25-2024 End: 04-30-2025 take 1.5 tablets by mouth once daily sertraline (Zoloft) 100 MG tablet Indications: Bipolar II disorder, most recent episode major depressive (CMS/HCC) Take 1.5 tablets (150 mg) by mouth Daily 135 tablet 01/30/2025 04/30/2025 Active Start: 04-09-2024 Zoloft Oral, D aily, Refills(s) 0, Depression Start Date: 04/09/24 Status: Ordered Repeat number: 1 Start: 04-09-2024 Zoloft Oral, D aily, Refills(s) [...] 2024 4:40pm take 2 tablets by mo ut every twenty-four hours Sertraline HCl 100 MG [...] control/menstrual regulation Start Date: 04/16/19 Status: Ordered ubrogepant 50 mg oral tablet (4 sources) Start: 02-05-2025 End: 03-07-2025 take 1 tablet by mouth every two hours, then take 2 tablets by mouth every twenty-four hours Ubrogepant (Ubrelvy) 50 MG tablet Indications: Chronic migraine without aura without status migrainosus, not intractable (CMS/HCC) Take 1 tablet by mouth if needed (May repeat in 2 hours. Max of 2 tablets in 24 hours.) 10 tablet 2 02/05/2025 03/07/2025 Active Vitamin D3-Vitamin K2 (Dosoquin) 5,500-200 unit-mcg Tablet [...] Drug Class(es) Dates Sig (Normalized) Sig (Original) [id number] 200 actuat albuterol 0.09 mg/actuat metered dose [...] 1 tablet by jerri th once daily rizatriptan 10 mg Dis Tab 10 mg = 1 tab(s), Oral, Daily, Refills(s) 0, Prophylaxis Start Date: 04/16/19 Status: Ordered Repeat number: 1 Toradol 30 mg/ml (7 sources) Start: 07-10-2022 [...] Date Documented Da te Episodic/Chronic Abdominal pain (20 sources) Lower abdominal pain; 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: [Lower abdominal pain, unspecified] Onset: 4 Episodic Acquired foot deformities (12 sources) Acquired left hallux valgus; 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: [Hallux valgus (acquired), left foot] Onset: 5 01-14-2025 Chronic Acquired foot deformities (12 sources) Acquired right hallux valgus; 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: [Hallux valgus (acquired), right foot] Onset: 5 01-14-2025 Chronic Acquired foot deformities (12 sources) Ankle joint deformity; 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: [Varus deformity, not elsewhere classified, right ankle] Onset: 5 01-14-2025 Episodic Adjustment disorders (17 sources) Adjustment disorder with mixed anxiety and depressed mood; 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: [Adjustment disorder with mixed anxiety and depressed mood] Onset: 4 05-11-2024 Chronic Anxiety disorders (20 sources) Anxiety; 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: [Anxiety disorder, unspecified] Onset: 2 Chronic Calculus of urinary tract (18 sources) Kidney stone; 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: [Calculus of kidney] Onset: 5 04-16-2019 Episodic Complication of device; implant or graft (12 sources) Mechanical complication of internal joint prosthesis; 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: [Dislocation of unspecified internal joint prosthesis, initial encounter] Onset: 5 01-14-2025 Episodic Conditions associated with dizziness or vertigo (1 source) Dizziness and giddiness Episodic Disorders of lipid metabolism (5 sources) Hypertriglyceridemia; 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: [Pure hyperglyceridemia] 02-26-2024 Chronic Disorders of teeth and jaw (1 source) Unspecified temporomandibular joint disorder, unspecified side Episodic Endometriosis (20 sources) Endometriosis (clinical); 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: [Endometriosis, unspecified] Onset: 5 01-14-2025 Chronic Esophageal disorders (20 sources) Gastroesophageal reflux disease; 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: [Gastro-esophageal reflux disease without esophagitis] Onset: 2 Chronic Gastroduodenal ulcer (except hemorrhage) (20 sources) Gastric ulcer; 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: [Gastric ulcer, unspecified as acute or chronic, without hemorrhage or perforation] Onset: 4 Chronic Genitourinary symptoms and ill-defined conditions (20 sources) Incontinence; 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: [Unspecified urinary incontinence] Onset: 2 01-14-2025 Chronic Headache; including migraine (20 sources) Migraine aura without headache ; 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: [Migraine with aura, not intractable, without status migrainosus] Onset: 9 Resolved: 2 Chronic Malaise and fatigue (20 sources) Fatigue; 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: [Chronic fatigue, unspecified] Onset: 1 Chronic Menstrual disorders (12 sources) Dysmenorrhea; 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: [Dysmenorrhea, unspecified] Onset: 5 01-14-2025 Chronic Mood disorders (20 sources) Bipolar disorder; 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: [Bipolar disorder, unspecified] Onset: 2 Chronic Noninfectious gastroenteritis (19 sources) Noninfectious enteritis; 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: [Noninfective gastroenteritis and colitis, unspecified] Onset: 4 Episodic Nutritional deficiencies (15 sources) Vitamin D deficiency; Translations: [Vitamin D deficiency, unspecified] Onset: 2 Chronic Osteoarthritis (16 sources) Primary osteoarthritis, right ankle and foot; Translations: [Osteoarthritis of joint of right ankle and/or foot] Onset: 3 Chronic Other acquired deformities (12 sources) Equinus contracture of the ankle; Translations: [Contracture, right ankle] Onset: 5 01-14-2025 Chronic Other congenital anomalies (12 sources) Congenital deformity of foot; Translations: [Other specified congenital deformities of feet] Onset: 5 01-14-2025 Chronic Other connective tissue disease (19 sources) Peroneal tendinitis of right lower limb; Translations: [Peroneal tendinitis, right leg] Onset: 5 12-26-2024 Episodic Other connective tissue disease (12 sources) Deformity of lower limb; Translations: [Contracture of muscle, left lower leg] Onset: 5 01-14-2025 Episodic Other connective tissue disease (12 sources) Dysfunction of posterior tibial tendon of left foot; Translations: [Posterior tibial tendinitis, left leg] Onset: 5 01-14-2025 Episodic Other connective tissue disease (12 sources) Dysfunction of posterior tibial tendon of right foot; Translations: [Posterior tibial tendinitis, right leg] Onset: 5 01-14-2025 Episodic Other connective tissue disease (12 sources) Pain in left foot; Translations: [Pain in left foot] Onset: 5 01-14-2025 Episodic Other connective tissue disease (12 sources) Pain in right foot; Translations: [Pain in right foot] Onset: 5 01-14-2025 Episodic Other endocrine disorders (13 sources) Polycystic ovary syndrome; Translations: [Polycystic ovarian syndrome] Chronic Other endocrine disorders (5 sources) Polycystic ovarian syndrome; Translations: [POLYCYSTIC OVARIAN SYNDROME] Onset: 2 Chronic Other endocrine disorders (18 sources) Hypoglycemia; Translations: [Hypoglycemia, unspecified] Onset: 5 04-16-2019 Chronic Other female genital disorders (12 sources) Pain in female genitalia on intercourse; Translations: [Unspecified dyspareunia] Onset: 5 01-14-2025 Chronic Other gastrointestinal disorders (16 sources) Irritable bowel syndrome; Translations: [Irritable bowel syndrome without diarrhea] Onset: 5 01-14-2025 Chronic Other gastrointestinal disorders (2 sources) Irritable bowel syndrome without diarrhea; Translations: [IRRITABLE BOWEL SYND W/O DIARRHEA] Onset: 2 Chronic Other gastrointestinal disorders (1 source) Irritable bowel syndrome with diarrhea; Translations: [Irritable bowel syndrome with diarrhea] Onset: 5 Chronic Other gastrointestinal disorders (19 sources) Heartburn; Translations: [Heartburn] Onset: 5 04-16-2019 Episodic Other gastrointestinal disorders (12 sources) Dysphagia; Translations: [Dysphagia, unspecified] Onset: 5 01-14-2025 Episodic Other gastrointestinal disorders (1 source) Swollen abdomen; Translations: [Abdominal distension (gaseous)] Onset: 5 Episodic Other gastrointestinal disorders (2 sources) Abdominal bloating 03-14-2025 Episodic Other nervous system disorders (12 sources) Difficulty walking; Translations: [Difficulty in walking, not elsewhere classified] Onset: 5 01-14-2025 Chronic Other nervous system disorders (6 sources) Acute postoperative pain; Translations: [Other acute postprocedural pain] 11-27-2020 Episodic Comment on above: Problem List clean-u p per request of Phys. EHR Cmte Other nervous system disorders (12 sources) Paresthesia; Translations: [Paresthesia of skin] Onset: 5 01-14-2025 Episodic Other non-traumatic joint disorders (2 sources) Pain in right ankle and joints of right foot; Translations: [PAIN IN RIGHT ANKLE] Onset: 2 Episodic Other non-traumatic joint disorders (1 source) Ankle pain; Translations: [Pain in right ankle and joints of right foot] 12-26-2024 Episodic Other non-traumatic joint disorders (12 sources) Arthralgia of the ankle and/or foot; Translations: [Pain in unspecified ankle and joints of unspecified foot] Onset: 5 01-14-2025 Episodic Other nutritional; endocrine; and metabolic disorders [...] endocrine, nutritional and metabolic disease] Episodic Other skin disorders (12 sources) Generalized hyperhidrosis; Translations: [Generalized hyperhidrosis] Onset: 5 01-14-2025 Episodic Other upper respiratory infections (12 sources) Chronic sinusitis; Translations: [Other chronic sinusitis] Onset: 8 01-14-2025 Chronic Other upper respiratory infections (1 source) Acute sinusitis, unspecified Episodic Otitis media and related conditions (13 sources) Otitis media, unspecified, right ear; Translations: [Chronic otitis media of bilateral ears] Onset: 2 Resolved: 2 Episodic Prolapse of female genital organs (12 sources) Cystocele; Translations: [Cystocele, unspecified] Onset: 5 01-14-2025 Chronic Residual codes; unclassified (1 source) Acquired absence of organ; Translations: [Acquired absence of other specified parts of digestive tract] Onset: 4 Episodic Residual codes; unclassified (4 sources) Insomnia; Translations: [Insomnia, unspecified] 09-05-2024 Episodic Residual codes; unclassified (17 sources) History of operative procedure on foot; Translations: [Other specified postprocedural states] Onset: 5 12-26-2024 Episodic Residual codes; unclassified (16 sources) Orthopedic hardware in situ; Translations: [Presence of other specified devices] Onset: 5 12-26-2024 Episodic Sprains and strains (14 sources) Sprain of interphalangeal joint of left index finger, initial encounter; Translations: [Strain of muscle, fascia and tendon of lower back, initial encounter] Onset: 1 Resolved: Episodic Thyroid disorders (20 sources) Hyperthyroidism; Translations: [Thyrotoxicosis, unspecified without thyrotoxic crisis or storm] Onset: 5 01-14-2025 Chronic Unclassified (2 sources) LOW BACK PAIN, UNSPECIFIED; [...] 10-26-2022 Episodic Genitourinary symptoms and ill-defined conditions (20 sources) Dysuria; Translations: [Finding of sensation of bladder] Onset: 03-09-2022 Resolved: 05-24-2022 Episodic Immunizations and screening for infectious disease (13 sources) Contact with and (suspected) exposure to other viral communicable diseases; Translations: [Anti-nuclear factor positive] Onset: 01-26-2021 Resolved: 08-22-2021 Episodic Mood disorders (9 sources) Mood disorders Onset: 01-30-2025 01-30-2025 Other aftercare (1 source) 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 analyst (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; Translations: [JAIL CURRENT USE OF ASPIRIN] Onset: 10-26-2022 Episodic Other aftercare (1 source) Other side seam machine operator (current) drug therapy; Translations: [OTH JAIL CURRENT [...] NUTRIT AND METAB DZ] Onset: 09-16-2022 Episodic Residual codes; unclassified (12 sources) History of nasal sinus surgery; Translations: [Other specified postprocedural states] Onset: 09-05-2018 01-14-2025 Episodic Unclassified (1 source) LOW BACK PAIN, UNSPECIFIED; Translations: [LOW BACK PAIN, UNSPECIFIED] Onset: 10-23-2022 Unclassified (4 sources) History of operative procedure on foot 12-26-2024 Urinary tract infections (1 source) Acute cystitis with hematuria Onset: 05-24-2022 Resolved: 05-24-2022 Episodic Viral infection (1 source) COVID-19 Onset: 08-22-2021 Resolved: 08-22-2021 Results Test Name Value Interpretation Reference Range Facility Reminderson 04-30-2025 Reminders Reminders From: Diane Montana To: [facility] - Reminders/Recalls; Sent: 04/30/2025 14:05:34 EDT Show up: 03/08/2035 14:05:00 EDT Subject: Ambulatory Reminder- colonoscopy 10 years Due Date/Time: 04/08/2035 14:05:00 EDT Reminder/Recall Colonoscopy 04/08/25 Dr Mcelroy 10 years Normal [facility] Surgical Pathology Reporton 04-11-2025 Surgical Pathology Report [facility] [address] [place] [address]- Surgical Pathology Report Collected Date/Time: 04/08/2025 09:50 EDT Pathologist: Jeovany MACK PhD, Phong Correa Received Date/Time: 04/08/2025 10:39 EDT Navi MACK, Lester Mcelroy MD, Lester Mello Surgical Pathology Report - 04/11/2025 13:23 EDT - Auth (Verified) Final Diagnosis A: DUODENUM, BIOPSY: - DUODENAL MUCOSA WITHIN NORMAL LIMITS. B: COLON, RANDOM BIOPSY: - COLONIC MUCOSA WITH LYMPHOID AGGREGATES, WITHIN NORMAL LIMITS. C: STOMACH, BIOPSY: - GASTRIC ANTRAL MUCOSA COMPATIBLE WITH REACTIVE GASTROPATHY. - NO H. PYLORI MICROORGANISMS IDENTIFIED WITH IMMUNOSTAIN. (Electronic Signature) Chavo Obando MD 04/11/2025 13:23 Clinical Information Abdominal pain, heart burn Pre-Op Diagnosis: Abdominal pain, heart burn Procedure: EGD, colonoscopy Post-Op Diagnosis: 1. Reflux esophagitis 2. Hiatal hernia 3. Erosive gastropathy 4. Peptic ulcer disease 5. Duodenitis 6. internal hemorrhoids 7. Status post random colon biopsies Specimen(s) Received A.Duodenal biopsy B.Random colon biopsy C.Gastric biopsy Gross Description A: Received in formalin labeled with patient name, number, and duodenal biopsy are multiple fragments of hickey/pink tissue ranging from less than 0.1 cm up to 0.2 cm in greatest dimension. Specimen is entirely submitted in one cassette. B: Received in formalin labeled with patient name, number, and random colon biopsy are multiple fragments of hickey/pink tissue ranging from less than 0.1 cm up to 0.3 cm in greatest dimension. Specimen is entirely submitted in one cassette. C: Received in formalin labeled with patient name, number, and gastric biopsy are two fragments of hickey/pink tissue measuring 0.2 and 0.3 cm. Specimen is entirely submitted in one cassette. (DC) DC:MCA Microscopic Description The use of one or more reagents in the above tests is regulated as an analyte specific reagent (ASR). The test or tests are ordered following initial H&E microscopic examination. The performance characteristics were determined by the Laboratory of [facility] Surgical Pathology. They have not been cleared or approved by the US Food and Drug Administration. The FDA has Surgical Pathology Report Collected Date/Time: 04/08/2025 09:50 EDT Pathologist: Jeovany MACK PhD, Phong Correa Received Date/Time: 04/08/2025 10:39 EDT Lester Mcelroy MD, MD, Mohamad A. Microscopic Description determined that such clearance or approval is not necessary. These tests are used for clinical purposes. They should not be regarded as investigational or for research. Appropriate positive and negative controls are performed and are acceptable. This report was transcribed using voice recognition technology and might contain unintended computerized fur weigher errors. Microscopic examination performed unless gross only specified. Quality was accessed and acceptable. Normal [facility] Comment on above: Performed By: #### [id number] #### [facility] [address] [place] [address] Main OR Intraoperative Recor don 04-09-2025 Main OR Intraoperative Record Main OR Intraoperative Record IntraOp Document Type FT Summary Primary Physician: Lester Mcelroy MD Finalized Date/Time: 04/09/25 12:26:18 Pt. Name: NOBLE CASTILLO/Sex: 1985 Female Med Rec #: [id number] Physician: Lester Mcelroy MD Financial #: [id number] Pt. Type: O Room/Bed: / Admit/Disch: 04/08/25 08:52:03 - 04/08/25 23:59:59 Institution: Case Times FT Entry 1 Patient Times In Room 04/08/25 09:46:00 Out Room 04/08/25 10:02:00 Procedure Times Start 04/08/25 09:49:00 Stop 04/08/25 10:00:00 Anesthesia Times Start 04/08/25 09:46:00 Stop 04/08/25 10:02:00 Time at [facility] 04/08/25 09:54:00 Last Modified By: Arsenio WILDE, Margaret Medina 04/08/25 10:02:57 General Comments: 0952 EGD completed./ ,RN 0953 Colonoscopy started. /,RN Case Attendance FT Entry 1 Entry 2 Entry 3 Case Attendee Shaan HERNANDEZ, Chavo Kit Margaret Cesar RN, Kirstyn K Role Performed Anesthesiologist Deli Worker - Primary Scrub - Primary Director Of Loss Prevention Time In 04/08/25 09:46:00 04/08/25 09:46:00 04/08/25 09:46:00 Time Out 04/08/25 10:02:00 04/08/25 10:02:00 04/08/25 10:02:00 Procedure EGD AND COLONOSCOPY(.) EGD AND COLONOSCOPY(.) EGD AND COLONOSCOPY(.) Comments Dr. Villafana supervising case Last Modified By: Margaret Cesar RN, RN, Margaret Lamas RN 04/08/25 10:03:00 F 04/08/25 10:03:00 F 04/08/25 10:03:00 Entry 4 Case Attendee Navi MACK, Lester Godoy Role Performed Surgeon - Primary Time In 04/08/25 09:46:00 Time Out 04/08/25 10:02:00 Procedure EGD AND COLONOSCOPY(.) Comments Last Modified By: Margaret Cesar RN 04/08/25 10:03:00 Perioperative Protocols FT Pre-Care Text: Implements protective measures prior to operative or invasive procedure, confirms identity before the operative or invasive procedure, verifies operative procedure, surgical site, and laterality Entry 1 Procedure(s) EGD AND COLONOSCOPY(.) Patient Identity Birthday, ID Band Verified (select at Check, Patient least 2): Participation Consents / H and P Anesthesia Consent, Operative Site N/A Verified H&P, Surgery/Procedure Marking Verified Consent Surgical Site No Laterality Verified n/a Verified Procedure Verified Yes Correct Patient Yes Position Verified Availability Equipment, Medication Prep Dry n/a Verified (If Applicable) PreOp Antibiotic No Time Out Margaret Cesar RN Given Participants Jayden Medina Kirstyn K, Navi MACK, Lester Godoy, Chavo Templeton Time Out Complete 04/08/25 09:47:00 Outcomes Met? Yes Last Modified By: Margaret Cesar RN 04/08/25 09:48:09 Post-Care Text: The patient is free from signs and symptoms of injury caused by extraneous objects Allergy Information FT Pre-Care Text: Verifies allergies Entry 1 Allergies Reviewed? Yes Allergies Reviewed Self/Patient With Outcomes Met? Yes Last Modified By: Margaret Cesar RN 04/08/25 09:48:15 Post-Care Text: The patient received appropriate medication(s) safely administered during the perioperative period Surgical Procedures FT Entry 1 Procedure Description Procedure EGD AND COLONOSCOPY Modifiers . Surgeon Description EGD with gastric biopsy, duodenal biopsy. Colonoscopy with random colon biopsy. Primary Procedure Yes Primary Surgeon Lester Mcelroy MD Start 04/08/25 09:49:00 Stop 04/08/25 10:00:00 Anesthesia Type General Surgical Service Gastroenterology Wound Class 2 - Clean-Contaminated Last Modified By: Margaret Cesar RN 04/08/25 10:03:04 General Case Data FT Pre-Care Text: Classifies surgical wound, implements aseptic technique, initiates traffic control Entry 1 Case Information OR ENDO 1 FT Case Level Level 2 Wound Class 2 - Clean-Contaminated Specialty Gastroenterology ASA Class 2 Preop Diagnosis Abdominal pain, heart Postop Same As Preop No burn Postop Diagnosis EGD- erosive Outcomes Met? Yes gastropathy, gastric ulcer, duodenitis, reflux esophagitis, hiatal hernia. Colonoscopy- internal hemorrhoids Last Modified By: Margaret Cesar RN 04/08/25 10:03:09 Post-Care Text: The patient is free from signs and symptoms of infection Skin Assessment (Pre Procedure) FT Pre-Care Text: Implements protective measures to prevent skin/ tissue injury due to thermal or mechanical sources Evaluates for signs and symptoms of physical injury to skin and tissue Entry 1 Skin Integrity Intact, [place], Warm, & Skin Abnormality No Dry Outcomes Met? Yes Last Modified By: Margaret Cesar RN 04/08/25 09:48:58 Post-Care Text: The patient is free from signs and symptoms of injury caused by extraneous objects Patient Positioning FT Pre-Care Text: Identifies physical alterations that require additional precautions for procedure-specific positioning, verifies presence of prosthetics or corrective devices, positions the patient, evaluates the patien (more content not included)... Normal [facility] Discharge Instructionson Discharge Instructions Discharge Instructions JONATHANLORENEA :1985 Visit Date:04/08/2025 Inpatient Discharge Instructions Your Care Team Admitting Physician - Lester Mcelroy MD Referring Physician - Lester Mcelroy MD Reason for Your Visit ABDOMINAL PAIN, HEART BURN Your Diagnosis Erosive gastropathy Hemorrhoids, internal Hernia, hiatal Peptic ulcer disease Tests Performed Pathology Tissue Exam -- Results Pending -- Please visit your patient portal for your results or contact your primary care physician. This Is Your Medications List acetaminophen (Tylenol) bacillus coagulans-inulin (Probiotic Formula (Bacillus Coagulans)) colestipol (Colestid 1 g Tab) famotidine (Pepcid 40 mg Tab) famotidine (famotidine 40 mg Tab) fremanezumab (Ajovy 225 mg/1.5 mL subcutaneous solution) lamotrigine (Lamictal 150 mg Tab) rizatriptan (rizatriptan 10 mg Dis Tab) sertraline (Zoloft) Procedure History Colonoscopy (04/08/2025), EGD - esophagogastroduodenoscopy (04/08/2025), Foot (12/01/2023), Cholecystectomy, Colonoscopy, Dilation and curettage, Ear, EGD - esophagogastroduodenoscopy, Hysterectomy, Laparoscope, Lump, Nasal sinus, Tonsillectomy, wisdom teeth. Discharge Vitals Temperature (Temporal Artery) 36.5 ???C Heart Rate (Monitored) 75 Respiratory Rate 15 Blood Pressure 107/64 Height 162 cm Weight 90.9 kg What to do next Instructions From Your Doctor No qualifying data available. Previously Scheduled Follow-Up Appointments 2024 8:15 AM EDT With: Lester Mcelroy MD Where: [facility] [address] [address]- New Follow Up Appointments after Discharge Follow Up with Lester Mcelroy MD, [facility], [facility] When: Comments: Office will call Date and Time of Follow-up Appt if needed. Where: [address], [address] [place] [address]- [phone] Medications What How Much When Why Instructions Next Dose Unchanged acetaminophen (Tylenol) See instructions Oral Unchanged bacillus coagulans-inulin (Probiotic Formula (Bacillus Coagulans)) 1 Capsules By Mouth Every day Unchanged colestipol (Colestid 1 g Tab) 2 Tablets By Mouth 2 times a day Abdominal pain Heartburn with a full glass of water Unchanged famotidine (famotidine 40 mg Tab) By Mouth Once a day (at bedtime) Unchanged famotidine (Pepcid 40 mg Tab) 1 Tablets By Mouth 2 times a day Unchanged fremanezumab (Ajovy 225 mg/ 1.5 mL subcutaneous solution) Subcutaneous Once a month Unchanged lamotrigine (Lamictal 150 mg Tab) By Mouth 2 times a day Unchanged rizatriptan (rizatriptan 10 mg Dis Tab) 1 Tablets By Mouth Every day Unchanged sertraline (Zoloft) By Mouth Every day Test Results No qualifying data available. Allergies Adhesive Bandage (Unknown) Betadine (Unknown) codeine (Unknown) Problems Ongoing - Any problem that you are currently receiving treatment for. Abdominal bloating Chronic diarrhea Chronic GERD Depression Gastric erosion Heartburn Hypoglycemia Kidney stone Lower abdominal pain Migraine S/P cholecystectomy Education Materials Colonoscopy Care After Surgery Please read the instructions outlined below and refer to this sheet in the next few weeks. These discharge instructions provide you with general information on caring for yourself after you leave the hospital. Your doctor may also give you specific instructions. While your treatment has been planned according to the most current medical practices available, unavoidable complications occasionally occur. If you have any problems or questions after discharge, please call your doctor. ACTIVITY You may resume your regular activity, but move at a slower pace for the next 24 hours. Take frequent rest periods for the next 24 hours. Walking will help get rid of the air and reduce the bloated feeling in your abdomen (belly). No driving for 24 hours (because of the anesthesia (medicine) used during the test). You may shower. Do not sign any important legal documents or operate any machinery for 24 hours (because of the anesthesia used during the test). NUTRITION Drink plenty of fluids. You may resume your normal diet as instructed by your doctor. Begin with a light meal and progress to your normal diet. Heavy or fried foods are harder to digest and may make you feel nauseated (sick to your stomach). Avoid alcoholic beverages for 24 hours or as instructed. MEDICATIONS You may resume your normal medications unless your doctor tells you otherwise. WHAT YOU CAN EXPECT TODAY Some feelings of bloating in the abdomen. Passage of more gas than usual. Spotting of blood in your stool or on the toilet paper. FOLLOW-UP Your doctor will discuss the results of your test with you. SEEK IMMEDIATE MEDICAL ATTENTION IF: There is more than a spotting of blood in your stool. (more content not included)... Normal [facility] Comment on above: Result Comment: Elec tronically Signed By: Miles WILDE, Evita\.br\Date and Time Signed: 04/08/25 10:18 EDT H&P Updateon 04-08-2025 H&P Update H&P Update Patient: NOBLE CASTILLO Age: 40 years Sex: Female : 1985 Associated Diagnoses: None Author: Navi MACK, Lester Godoy Preoperative Information Chief compliant/Indication for procedure: Bloating and diarrhea Chief Complaint as above Review of Systems All systems reviewed, negative except as mentioned above Health Status Allergies: Allergic Reactions (Selected) Severity Not Documented Adhesive Bandage- Unknown. Betadine- Unknown. Codeine- Unknown. Current medications: (Selected) Inpatient Medications Ordered Lactated Ringers IV Monica 1000 mL 1,000 mL: 1,000 mL, IV, 100 mL/hr, Routine, Start date 04/08/25 9:25:00 EDT, 10 hour(s), Total volume (mL): 1,000, 90.9 kg, 2.02, m2 Sodium Chloride 0.9% IV Monica 1000 mL 1,000 mL: 1,000 mL, IV, 20 mL/hr, Routine, Start date 04/08/25 6:37:00 EDT, 50 hour(s), Total volume (mL): 1,000, 90.9 kg, 2.02, m2 Zofran 4 mg/2 mL Injection: 4 mg = 2 mL, Injection, IV Push, Once PRN Nausea/Vomiting, Routine, Start date 04/08/25 9:25:00 EDT, 04/08/25 9:25:00 EDT promethazine additive 12.5 mg + Sodium Chloride 0.9% IV Monica 50 mL (INT) 50 mL: Injection, IV Piggyback, Once PRN Nausea/Vomiting, Routine, Start date 04/08/25 9:25:00 EDT, 151.5 mL/hr, Infuse over 20 minute(s) Prescriptions Prescribed Colestid 1 g Tab: 2 gm = 2 tab(s), Oral, BID, with a full glass of water, # 360 tab(s), Refills(s) 0, Pharmacy: [facility]/pharmacy #[id number], 162, cm, 03/14/25 8:51:00 EDT, Height/Length Dosing, 90.9, kg, 03/14/25 8:51:00 EDT, Weight Dosing Documented Medications Documented Ajovy 225 mg/1.5 mL subcutaneous solution: mg, SubCutaneous, qMonth, Refills(s) 0, Migraine headache Lamictal 150 mg Tab: mg tab(s), Oral, BID, Refills(s) 0, Other (see comment) Probiotic Formula (Bacillus Coagulans): 1 cap(s), Oral, Daily, Refill(s) 0, Prophylaxis Tylenol: See Instructions, Oral, Refills(s) 0, Pain/Fever Zoloft: Oral, Daily, Refills(s) 0, Depression famotidine 40 mg Tab: mg tab(s), Oral, Once a day (at bedtime), Refills(s) 0, Control of stomach acid rizatriptan 10 mg Dis Tab: 10 mg = 1 tab(s), Oral, Daily, Refills(s) 0, Prophylaxis Problem list: All Problems Abdominal bloating / SNOMED CT 337587542 / Confirmed Chronic diarrhea / SNOMED CT 311673278 / Confirmed Chronic GERD / SNOMED CT 015076518 / Confirmed Depression / SNOMED CT 41430058 / Confirmed Gastric erosion / SNOMED CT 515151480 / Confirmed Heartburn / SNOMED CT 05667109 / Confirmed Hypoglycemia / SNOMED CT 152696945 / Confirmed Kidney stone / SNOMED CT 760906794 / Confirmed Lower abdominal pain / SNOMED CT 97141300 / Confirmed Migraine / SNOMED CT 98843540 / Confirmed S/P cholecystectomy / SNOMED CT 5525166053 / Confirmed, Active Problems (11) Abdominal bloating Chronic diarrhea Chronic GERD Depression Gastric erosion Heartburn Hypoglycemia Kidney stone Lower abdominal pain Migraine S/P cholecystectomy Histories Past Medical History: No active or resolved past medical history items have been selected or recorded. Family History: COPD Father Heart failure Father Acute myocardial infarction Mother Procedure history: Foot ([id number]) on 12/01/2023 at 38 Years. Comments: 04/09/2024 13:32 EDT - Gina, Natalya flat foot Tonsillectomy (652545308). Cholecystectomy (88393889). Dilation and curettage (29865990). Nasal sinus (4946877). Comments: 03/14/2025 8:44 EDT - Licking, Natalya x2 wisdom teeth. Lump (0558842077). Comments: 03/14/2025 8:44 EDT - Natalya Fuentes arm Hysterectomy (473422359). Laparoscope (883689805). Ear (6988196869). EGD - esophagogastroduodenoscopy (1989446664). Colonoscopy (296940339). Physical Examination Vital Signs (last 24 hrs) Last Charted Temp Temporal 36.4 DegC (APR 08 09:15) Heart Rate Monitored 80 bpm (APR 08:15) SBP 128 mmHg (APR 08:15) DBP 83 mmHg (APR 08:15) Weight 90.9 kg (APR 08 08:13) General: in Nad Abdomen: Soft, NTND Impression and Plan Diagnosis: Bloating and diarrhea -EGD and colonoscopy Normal [facility] Main OR PACU II [place] Main OR PACU II Record Main OR PACU II Record PACU Phase II Document Type FT Summary Primary Physician: Lester Mcelroy MD Finalized Date/Time: 04/08/25 12:52:16 Pt. Name: NOBLE CASTILLO/Sex: 1985 Female Med Rec #: [id number] Physician: Lester Mcelroy MD Financial #: [id number] Pt. Type: O Room/Bed: / Admit/Disch: 04/08/25 08:52:03 - Institution: Case Times PACU II FT Pre-Care Text: Identifies barriers to communication and implements measures to provide psychological support and determines knowledge level Develops individualized plan of care, and ensures continuity of care Maintains patient's dignity and privacy, and maintains patient confidentiality Identifies and reports philosophical, cultural, and spiritual beliefs and values Identifies individual values and wishes concerning care administers prescribed antibiotic therapy and immunizing agents as ordered, Evaluates postoperative tissue perfusion Implements thermoregulation measures, and monitors body temperature Evaluates postoperative respiratory status Evaluates postoperative cardiac status Evaluates postoperative neurological status Assesses pain control, collaborated in initiating patient-controlled analgesia and implements alternative methods of pain control Verifies allergies, administers prescribed medications and solutions, evaluates response to medications Entry 1 In PACU II 04/08/25 10:03:00 Discharge from PACU 04/08/25 10:38:00 II Outcomes Met? Yes Last Modified By: Evita Aquino RN 04/08/25 12:52:11 Post-Care Text: The patient demonstrates knowledge of the expected response to the operative or invasive procedure The patient's care is consistent with the individualized perioperative plan of care The patient's right to privacy is maintained The patient's value system, lifestyle, ethnicity, and culture are considered, respected, and incorporated into the perioperative plan of care The patient participates in decisions affecting his or her perioperative plan of care. The patient is free from signs and symptoms of infection The patient has wound/tissue perfusion consistent with or improved from baseline levels established preoperatively The patient is at or returning to normothermia at the conclusion of the immediate postoperative period The patient's respiratory function is consistent with or improved from baseline levels established preoperatively The patient's cardiovascular status is consistent with or improved from baseline levels established preoperatively The patient's neurological status is consistent with or improved from baseline levels established preoperatively The patient demonstrates and/or reports adequate pain control throughout the perioperative period The patient received appropriate medication(s), safely administered during the perioperative period Finalized By: Evita Aquino RN Document Signatures Signed By: Evita Aquino RN 04/08/25 12:52 Normal [facility] Main OR Preoperative Recordo n 04-08-2025 Main OR Preoperative Record Main OR Preoperative Record Holding Area Document Type FT Summary Primary Physician: Lester Mcelroy MD Finalized Date/Time: 04/08/25 09:07:54 Pt. Name: NOBLE CASTILLO/Sex: 1985 Female Med Rec #: [id number] Physician: Lester Mcelroy MD Financial #: [id number] Pt. Type: O Room/Bed: / Admit/Disch: 04/08/25 08:52:03 - Institution: Case Times Holding FT Pre-Care Text: Verifies consent for planned procedure, identifies individual values and wishes concerning care, includes family members in perioperative teaching Secures patient's records' belongings, and valuables, maintains patient's dignity and privacy, and maintains patient confidentiality Entry 1 In Holding 04/08/25 08:56:00 Outcomes Met? Yes Last Modified By: Azra Mueller RN 04/08/25 08:59:21 Post-Care Text: The patient participates in decisions affecting his or her perioperative plan of care The patient's right to privacy is maintained Surgery Checklist FT Entry 1 Patient Birthday, ID Band Procedure History and Physical, Identification: Check, Patient Verification: Surgical Consent, With Participation Patient NPO after Midnight: Yes Results Reviewed Yellow Comments: Personal Items: Jewelry Personal Items Earrings, nose ring, Comment: bilat feet metal Complaints of Pain: No Pain Comment: Denies Operative Site n/a Availability Equipment Marking: Verified: Does Patient Smoke No Patient states Yes Comment - Adult postop adult Supervision supervision available Case Cancelled in No Holding Area see comments below for reason Last Modified By: Azra Mueller RN 04/08/25 09:07:50 General Comments: Pt completed prep at 0400 and remained NPO since/[email or web address] Finalized By: Azra Mueller RN Document Signatures Signed By: Azra Mueller RN 04/08/25 09:07 Normal [facility] Operative Reporton Operative Report Operative Report Patient: NOBLE CASTILLO Age: 40 years Sex: Female : 1985 Associated Diagnoses: None Author: Lester Mcelroy MD Pre-Procedure Procedure Date 04/08/2025 10:04:00 . Procedure Type: Colonoscopy with biopsy. Procedure provider Performed by Lester Mcelroy MD. Current history and physical Documented on chart. Foot ([id number]) on 12/01/2023 at 38 Years. Comments: 04/09/2024 13:32 EDT - Natalya Fuentes flat foot Tonsillectomy (435087183). Cholecystectomy (23791471). Dilation and curettage (31527350). Nasal sinus (2603286). Comments: 03/14/2025 8:44 EDT - Natalya Fuentes x2 wisdom teeth. Lump (5210712112). Comments: 03/14/2025 8:44 EDT - Natalya Fuentes arm Hysterectomy (725384423). Laparoscope (161328843). Ear (9880256725). EGD - esophagogastroduodenoscopy (6566950170). Colonoscopy (277218834).. Past Medical History No active or resolved past medical history items have been selected or recorded.. Family History COPD Father Heart failure Father Acute myocardial infarction Mother . Procedure History Foot ([id number]) on 12/01/2023 at 38 Years. Comments: 04/09/2024 13:32 EDT - Natalya Fuentes flat foot Tonsillectomy (282698655). Cholecystectomy (15515106). Dilation and curettage (13120873). Nasal sinus (9918443). Comments: 03/14/2025 8:44 EDT - Natalya Fuentes x2 wisdom teeth. Lump (3281839646). Comments: 03/14/2025 8:44 EDT - Natalya Fuentes arm Hysterectomy (995894367). Laparoscope (740888866). Ear (1726095022). EGD - esophagogastroduodenoscopy (0876219105). Colonoscopy (702579130).. Colorectal neoplasm risk assessment Average risk. Informed Consent After discussing the rationale, risks and benefits, and alternatives to this procedure, the patient provided signed consent for the procedure. Pre-procedure diagnosis: Diarrhea, clinically significant. Medications (Selected) Inpatient Medications Ordered Lactated Ringers IV Monica 1000 mL 1,000 mL: 1,000 mL, IV, 100 mL/hr, Routine, Start date 04/08/25 9:25:00 EDT, 10 hour(s), Total volume (mL): 1,000, 90.9 kg, 2.02, m2 Sodium Chloride 0.9% IV Monica 1000 mL 1,000 mL: 1,000 mL, IV, 20 mL/hr, Routine, Start date 04/08/25 6:37:00 EDT, 50 hour(s), Total volume (mL): 1,000, 90.9 kg, 2.02, m2 Zofran 4 mg/2 mL Injection: 4 mg = 2 mL, Injection, IV Push, Once PRN Nausea/Vomiting, Routine, Start date 04/08/25 9:25:00 EDT, 04/08/25 9:25:00 EDT promethazine additive 12.5 mg + Sodium Chloride 0.9% IV Monica 50 mL (INT) 50 mL: Injection, IV Piggyback, Once PRN Nausea/Vomiting, Routine, Start date 04/08/25 9:25:00 EDT, 151.5 mL/hr, Infuse over 20 minute(s) Prescriptions Prescribed Colestid 1 g Tab: 2 gm = 2 tab(s), Oral, BID, with a full glass of water, # 360 tab(s), Refills(s) 0, Pharmacy: [facility]/pharmacy #[id number], 162, cm, 03/14/25 8:51:00 EDT, Height/Length Dosing, 90.9, kg, 03/14/25 8:51:00 EDT, Weight Dosing Documented Medications Documented Ajovy 225 mg/1.5 mL subcutaneous solution: mg, SubCutaneous, qMonth, Refills(s) 0, Migraine headache Lamictal 150 mg Tab: mg tab(s), Oral, BID, Refills(s) 0, Other (see comment) Probiotic Formula (Bacillus Coagulans): 1 cap(s), Oral, Daily, Refill(s) 0, Prophylaxis Tylenol: See Instructions, Oral, Refills(s) 0, Pain/Fever Zoloft: Oral, Daily, Refills(s) 0, Depression famotidine 40 mg Tab: mg tab(s), Oral, Once a day (at bedtime), Refills(s) 0, Control of stomach acid rizatriptan 10 mg Dis Tab: 10 mg = 1 tab(s), Oral, Daily, Refills(s) 0, Prophylaxis ASA Classification: Class II. . Monitoring: See anesthesia record. . Procedure The procedure was performed in the hospital. See anesthesia record for sedation given during procedure. The patient was positioned starting in the left lateral decubitus position. Endoscope type used was a pediatric-size. The endoscope was lubricated then introduced through the anus. The scope was advanced to the terminal ileum. No difficulties encountered during the procedure. The bowel preparation quality was good and was adequate (see polyps greater than or equal to 6 millimeters). The patient tolerated the procedure well. Last colonoscopy Time to cecum: 1 min Time of withdrawal:6 min Findings 1. Small internal hemorrhoids seen on retroflexion 2. Normal colon, random biopsies were obtained to rule out microscopic colitis 3. Normal Terminal ileum Images Procedure images: Rec1_hd_video_2024__09T09 _[id number].jpg Rec1_hd_video_5__09T09 _[id number].jpg Rec1_hd_video_5__09T09 _[id number].jpg Rec1_hd_video_5__09T09 _[id number].jpg Rec1_hd_video_5__09T09 _[id number].jpg Rec1_hd_video_5_06_09T09 _[id number].jpg (Inserted Image. Unable to d (more content not included)... Normal [facility] Comment on above: Result Comment: Elec tronically Signed By: Navi MACK, Lester Godoy\.br\Date and Time Signed: 04/08/25 10:04 EDT Other Comment: Ely charles Attachment - attachment storage system not supported [id number] Can be viewed in source system Missing Attachment - attachment storage system not supported [id number] Can be viewed in source system Missing Attachment - attachment storage system not supported [id number] Can be viewed in source system Missing Attachment - attachment storage system not supported [id number] Can be viewed in source system Missing Attachment - attachment storage system not supported [id number] Can be viewed in source system Missing Attachment - attachment storage system not supported [id number] Can be viewed in source system Missing Attachment - attachment storage system not supported [id number] Can be viewed in source system Operative Report Operative Report Patient: NOBLE CASTILLO Age: 40 years Sex: Female : 1985 Associated Diagnoses: None Author: Lester Mcelroy MD Pre-Procedure Procedure Date 04/08/2025 10:02:00 . Procedure Type: Esophagogastroduodenoscopy with biopsy. Procedure provider Performed by Lester Mcelroy MD. Current history and physical Documented on chart. Informed Consent After discussing the rationale, risks and benefits, and alternatives to this procedure, the patient provided signed consent for the procedure. Pre-procedure diagnosis: Bilateral, bloating, burping. Medications (Selected) Inpatient Medications Ordered Lactated Ringers IV Monica 1000 mL 1,000 mL: 1,000 mL, IV, 100 mL/hr, Routine, Start date 04/08/25 9:25:00 EDT, 10 hour(s), Total volume (mL): 1,000, 90.9 kg, 2.02, m2 Sodium Chloride 0.9% IV Monica 1000 mL 1,000 mL: 1,000 mL, IV, 20 mL/hr, Routine, Start date 04/08/25 6:37:00 EDT, 50 hour(s), Total volume (mL): 1,000, 90.9 kg, 2.02, m2 Zofran 4 mg/2 mL Injection: 4 mg = 2 mL, Injection, IV Push, Once PRN Nausea/Vomiting, Routine, Start date 04/08/25 9:25:00 EDT, 04/08/25 9:25:00 EDT promethazine additive 12.5 mg + Sodium Chloride 0.9% IV Monica 50 mL (INT) 50 mL: Injection, IV Piggyback, Once PRN Nausea/Vomiting, Routine, Start date 04/08/25 9:25:00 EDT, 151.5 mL/hr, Infuse over 20 minute(s) Prescriptions Prescribed Colestid 1 g Tab: 2 gm = 2 tab(s), Oral, BID, with a full glass of water, # 360 tab(s), Refills(s) 0, Pharmacy: [facility]/pharmacy #[id number], 162, cm, 03/14/25 8:51:00 EDT, Height/Length Dosing, 90.9, kg, 03/14/25 8:51:00 EDT, Weight Dosing Documented Medications Documented Ajovy 225 mg/1.5 mL subcutaneous solution: mg, SubCutaneous, qMonth, Refills(s) 0, Migraine headache Lamictal 150 mg Tab: mg tab(s), Oral, BID, Refills(s) 0, Other (see comment) Probiotic Formula (Bacillus Coagulans): 1 cap(s), Oral, Daily, Refill(s) 0, Prophylaxis Tylenol: See Instructions, Oral, Refills(s) 0, Pain/Fever Zoloft: Oral, Daily, Refills(s) 0, Depression famotidine 40 mg Tab: mg tab(s), Oral, Once a day (at bedtime), Refills(s) 0, Control of stomach acid rizatriptan 10 mg Dis Tab: 10 mg = 1 tab(s), Oral, Daily, Refills(s) 0, Prophylaxis Anticoagulant/antiplatelet None. ASA Classification: Class II. . Monitoring: See anesthesia record. . Procedure The procedure was performed in the hospital. See anesthesia record for sedation given during procedure. The patient was positioned starting in the left lateral decubitus position and with safety measures. Endoscope type used was an adult-size, introduced orally, advanced to the 2nd portion of the duodenum. No difficulty was encountered during the procedure. Views were excellent. The patient tolerated the procedure well. Findings 1. Small hiatal hernia. Mild reflux esophagitis. 2. Erythema in the antrum, moderate patchy. Scattered erosions and 1 clean-based ulcer in the distal stomach. Biopsies of the stomach were taken to rule out H. pylori. 3. Patchy erythema in the bulb and second portion of the duodenum status post biopsies Images Procedure images: Rec_hd_video__09 _[id number].jpg Rec_hd_video__09 __[id number].jpg Rec_hd_video__ ___847.jpg Rec_hd_video__T __40_[id number].jpg Rec1_hd_video_2024__09 __00_642.jpg Rec1_hd_video__09 _03_[id number].jpg Rec1_hd_video_2024__T09 _[id number].jpg Rec1_hd_video_2024__T09 __04_059.jpg Rec1_hd_video_2024__T09 __58_[id number].jpg Rec1_hd_video_2024__T09 __[id number].jpg . Post-Procedure Complications: none. Estimated blood loss: minimal. Specimens: sent to pathology. Devices/ implants: none left in place. Impression and Plan reflux esophagitis Hiatal hernia Erosive gastropathy Peptic ulcer disease Duodenitis Recommendations: -Resume previous diet -Resume home medications -Await pathology results, follow in GI clinic in 1-2 after discharge - Avoid NSAIDs -Protonix 40 mg twice daily Normal [facility] Comment on above: Result Comment: Elec tronically Signed By: Navi MACK, Lester Godoy\.br\Date and Time Signed: 04/08/25 10:03 EDT Other Comment: Ely charles Attachment - attachment storage system not supported [id number] Can be viewed in source system Missing Attachment - attachment storage system not supported [id number] Can be viewed in source system Missing Attachment - attachment storage system not supported [id number] Can be viewed in source system Missing Attachment - attachment storage system not supported [id number] Can be viewed in source system Missing Attachment - attachment storage system not supported [id number] Can be viewed in source system Missing Attachment - attachment storage system not supported [id number] Can be viewed in source system Missing Attachment - attachment storage system not supported [id number] Can be viewed in source system Missing Attachment - attachment storage system not supported [id number] Can be viewed in source system Missing Attachment - attachment storage system not supported [id number] Can be viewed in source system Missing Attachment - attachment storage system not supported [id number] Can be viewed in source system GIANNA Antinuclear Antibodieson 03-16-2025 Antinuclear Abs, IFA Positive Critically abnormal . [facility] Comment on above: Result Comment: Nega tive <1:80 Borderline 1:80 Positive >1:80 Performed By: #### T 4F, PTT, PT, CBC, CRP, ESR, ADDONUAPLUS, TSH3, CMP #### [address] #### RA, CCP, THYGLOB, JO1, CARDIO GMA, RPR W RFX, CAVAZOS, [id number], ADNA, HISAB, CH50, SJOGRENS, B2 GLYPROT, MITOM2, LUPANTCOAG, C4, ANTIR, TPO, C3, SMAB, GIANNA #### [facility] , Note 1 Comment Normal . [facility] Comment on above: Result Comment: Arabella cheatham Potential Disease Association Homogeneous Systemic Lupus Erythematosus, Drug Induced Systemic Lupus Erythematosus, Chronic Autoimmune hepatitis, Juvenile Idiopathic Arthritis Speckled Sjogren Syndrome, Systemic Lupus Erythematosus, Subacute Cutaneous Lupus, Lupus, Congenital Heart Block, Mixed Connective Tissue Disease, Scleroderma-diffuse, Scleroderma-Autoimmune Myositis Overlap Syndrome, Systemic Lupus Rtmxaonldvtzq-Ebxeypunbey-Qzcbxcwrck Myositis Overlap Syndrome, Systemic Autoimmune Rheumatic Disease, Undifferentiated Connective Tissue Disease Nucleolar Systemic Sclerosis, Scleroderma-Autoimmune Myositis Overlap Syndrome, Sjogren Syndrome, Raynaud phenomenon, Pulmonary Arterial Hypertension, Systemic Autoimmune Rheumatic Disease, Cancer Centromere Scleroderma-CREST, Limited Cutaneous SSc, Raynaud's Phenomenon, Primary Biliary Cholangitis Nuclear Dot Primary Biliary Cholangitis Nuclear Primary Biliary Cholangitis, Autoimmune Membrane Hepatitis/Liver disease, Systemic Autoimmune Rheumatic Disease, Autoimmune Cytopenias, Linear Scleroderma, Antiphospholipid Syndrome Performed at: - [facility] [id number] Finishing Machine Tender: Ronaldo Deleon PhD, Phone: [phone] Performed By: #### T 4F, PTT, PT, CBC, CRP, ESR, ADDONUAPLUS, TSH3, CMP #### [facility] [address] [place] [address] #### RA, CCP, THYGLOB, JO1, CARDIO GMA, RPR W RFX, CAVAZOS, [id number], ADNA, HISAB, CH50, SJOGRENS, B2 GLYPROT, MITOM2, LUPANTCOAG, C4, ANTIR, TPO, C3, SMAB, GIANNA #### [facility] , Speckled Pattern 1:160 High . [facility] Comment on above: Result Comment: Dens e Fine Speckled pattern is noted. This pattern suggests the presence of DFS70 antibody which has a low prevalence in systemic autoimmune rheumatic diseases. ICAP nomenclature: [id number]-2,4,5,29 Performed By: #### T 4F, PTT, PT, CBC, CRP, ESR, ADDONUAPLUS, TSH3, CMP #### [place] [address] [place] #### RA, CCP, THYGLOB, JO1, CARDIO GMA, RPR W RFX, CAVAZOS, [id number], ADNA, HISAB, CH50, SJOGRENS, B2 GLYPROT, MITOM2, LUPANTCOAG, C4, ANTIR, TPO, C3, SMAB, GIANNA #### [facility] , Anti-RNPon 03-16-2025 Anti-STEEL LOADER <0.2 Normal 0.0-0.9 [facility] Comment on above: Performed By: #### T 4F, PTT, PT, CBC, CRP, ESR, ADDONUAPLUS, TSH3, CMP #### [place] [address] [place] #### RA, CCP, THYGLOB, JO1, CARDIO GMA, RPR W RFX, CAVAZOS, [id number], ADNA, HISAB, CH50, SJOGRENS, B2 GLYPROT, MITOM2, LUPANTCOAG, C4, ANTIR, TPO, C3, SMAB, GIANNA #### [facility] , Anti-Cavazos Antibodieson 02-28 Anti-Cavazos Antibodies <0.2 Normal 0.0-0.9 [facility] Comment on above: Performed By: #### T 4F, PTT, PT, CBC, CRP, ESR, ADDONUAPLUS, TSH3, CMP #### [place] [address] [place] #### RA, CCP, THYGLOB, JO1, CARDIO GMA, RPR W RFX, CAVAZOS, [id number], ADNA, HISAB, CH50, SJOGRENS, B2 GLYPROT, MITOM2, LUPANTCOAG, C4, ANTIR, TPO, C3, SMAB, GIANNA #### [facility] , Anti-dsDNA(DBL)Abon 03-16-20 25 Anti-dsDNA(DBL)Ab <1 Normal 0-[address] [facility] Comment on above: Result Comment: Nega tive <5 Equivocal 5 - 9 Positive >9 Performed By: #### T 4F, PTT, PT, CBC, CRP, ESR, ADDONUAPLUS, TSH3, CMP #### [address] #### RA, CCP, THYGLOB, JO1, CARDIO GMA, RPR W RFX, CAVAZOS, [id number], ADNA, HISAB, CH50, SJOGRENS, B2 GLYPROT, MITOM2, LUPANTCOAG, C4, ANTIR, TPO, C3, SMAB, GIANNA #### [facility] , Anticardiolipin IgG/M/A, Qno n 03-16-2025 Anticardiolipin Ab, IgA,Qn <9 Normal 0-11 [facility] Comment on above: Result Comment: Nega tive: <12 Indeterminate: 12 - 20 Low-Med Positive: >20 - 80 High Positive: >80 Performed By: #### T 4F, PTT, PT, CBC, CRP, ESR, ADDONUAPLUS, TSH3, CMP #### [place] [address] [place] #### RA, CCP, THYGLOB, JO1, CARDIO GMA, RPR W RFX, CAVAZOS, [id number], ADNA, HISAB, CH50, SJOGRENS, B2 GLYPROT, MITOM2, LUPANTCOAG, C4, ANTIR, TPO, C3, SMAB, GIANNA #### [facility] , Anticardiolipin Ab, IgG,Qn <9 Normal 0-14 [facility] Comment on above: Result Comment: Nega tive: <15 Indeterminate: 15 - 20 Low-Med Positive: >20 - 80 High Positive: >80 Performed By: #### T 4F, PTT, PT, CBC, CRP, ESR, ADDONUAPLUS, TSH3, CMP #### [place] [address] [place] #### RA, CCP, THYGLOB, JO1, CARDIO GMA, RPR W RFX, CAVAZOS, [id number], ADNA, HISAB, CH50, SJOGRENS, B2 GLYPROT, MITOM2, LUPANTCOAG, C4, ANTIR, TPO, C3, SMAB, GIANNA #### [facility] , Anticardiolipin Ab, IgM,Qn 9 Normal 0-12 [facility] Comment on above: Result Comment: Nega tive: <13 Indeterminate: 13 - 20 Low-Med Positive: >20 - 80 High Positive: >80 Performed By: #### T 4F, PTT, PT, CBC, CRP, ESR, ADDONUAPLUS, TSH3, CMP #### [facility] [address] [place] [address] [place] #### RA, CCP, THYGLOB, JO1, CARDIO GMA, RPR W RFX, CAVAZOS, [id number], ADNA, HISAB, CH50, SJOGRENS, B2 GLYPROT, MITOM2, LUPANTCOAG, C4, ANTIR, TPO, C3, SMAB, GIANNA #### [facility] , Beta 2 Glycoprotein I Ab IgG /[facility] 03-16-2025 Beta 2 Glycoprotein I Ab, IgG <9 Normal 0-20 [facility] Comment on above: Result Comment: Resu lt Units: GPI IgG units The reference interval reflects a 3SD or 99th percentile interval, which is thought to represent a potentially clinically significant result in accordance with the International Consensus Statement on the classification criteria for definitive antiphospholipid syndrome (APS). J Thromb Haem 2006;4:295-306. Performed By: #### T 4F, PTT, PT, CBC, CRP, ESR, ADDONUAPLUS, TSH3, CMP #### [facility] [address] [place] [address] [place] #### RA, CCP, THYGLOB, JO1, CARDIO GMA, RPR W RFX, CAVAZOS, [id number], ADNA, HISAB, CH50, SJOGRENS, B2 GLYPROT, MITOM2, LUPANTCOAG, C4, ANTIR, TPO, C3, SMAB, GIANNA #### [facility] , Beta 2 Glycoprotein I Ab, IgM <9 Normal 0-32 [facility] Comment on above: Result Comment: Resu lt Units: GPI IgM units The reference interval reflects a 3SD or 99th percentile interval, which is thought to represent a potentially clinically significant result in accordance with the International Consensus Statement on the classification criteria for definitive antiphospholipid syndrome (APS). J Thromb Haem 2006;4:295-306. Performed By: #### T 4F, PTT, PT, CBC, CRP, ESR, ADDONUAPLUS, TSH3, CMP #### [address] #### RA, CCP, THYGLOB, JO1, CARDIO GMA, RPR W RFX, CAVAZOS, [id number], ADNA, HISAB, CH50, SJOGRENS, B2 GLYPROT, MITOM2, LUPANTCOAG, C4, ANTIR, TPO, C3, SMAB, GIANNA #### [facility] , C-Reactive Proteinon 025 C-Reactive Protein 1.6 mg/dL High 0.0-0.5 [facility] Comment on above: Performed By: #### T 4F, PTT, PT, CBC, CRP, ESR, ADDONUAPLUS, TSH3, CMP #### [place] [address] [place] #### RA, CCP, THYGLOB, JO1, CARDIO GMA, RPR W RFX, CAVAZOS, [id number], ADNA, HISAB, CH50, SJOGRENS, B2 GLYPROT, MITOM2, LUPANTCOAG, C4, ANTIR, TPO, C3, SMAB, GIANNA #### [facility] , Complement C3on 03-16-2025 Complement C3 194 mg/dL High 82-167 [facility] Comment on above: Performed By: #### T 4F, PTT, PT, CBC, CRP, ESR, ADDONUAPLUS, TSH3, CMP #### [place] [address] [place] #### RA, CCP, THYGLOB, JO1, CARDIO GMA, RPR W RFX, CAVAZOS, [id number], ADNA, HISAB, CH50, SJOGRENS, B2 GLYPROT, MITOM2, LUPANTCOAG, C4, ANTIR, TPO, C3, SMAB, GIANNA #### [facility] , Complement C4on 03-16-2025 Complement C4 23 mg/dL Normal 12-38 [facility] Comment on above: Performed By: #### T 4F, PTT, PT, CBC, CRP, ESR, ADDONUAPLUS, TSH3, CMP #### [address] #### RA, CCP, THYGLOB, JO1, CARDIO GMA, RPR W RFX, CAVAZOS, [id number], ADNA, HISAB, CH50, SJOGRENS, B2 GLYPROT, MITOM2, LUPANTCOAG, C4, ANTIR, TPO, C3, SMAB, GIANNA #### [facility] , Complement Total (CH50)on Complement Total (CH50) >60 Normal >41 [facility] Comment on above: Result Comment: Age Male Female 1 - 30 days Not Estab. Not Estab. 31 days - 6 months >32 >20 7 months - 17 years >39 >39 >17 years >41 >41 NOTE: The adult ( >17 years ) reference interval range is used to flag abnormals on this report. If the patient is 17 years old or younger, use the table above to determine out of range values. Performed at: - [facility] [id number] Finishing Machine Tender: Ronaldo Deleon PhD, Phone: [phone] PERFORMED BY: [place] [address] PATHOLOGIST INFORMATION ASSURANCE ANALYST LAKHWINDER MIR M.D. Performed By: #### T 4F, PTT, PT, CBC, CRP, ESR, ADDONUAPLUS, TSH3, CMP #### [place] [address] [place] #### RA, CCP, THYGLOB, JO1, CARDIO GMA, RPR W RFX, CAVAZOS, [id number], ADNA, HISAB, CH50, SJOGRENS, B2 GLYPROT, MITOM2, LUPANTCOAG, C4, ANTIR, TPO, C3, SMAB, GIANNA #### [facility] , Complete Blood Count Auto Di ffon 03-16-2025 Basophils (Bld) [#/Vol] 0.1 10*3/uL Normal 0.0-0.2 [facility] Comment on above: Performed By: #### T 4F, PTT, PT, CBC, CRP, ESR, ADDONUAPLUS, TSH3, CMP #### [address] #### RA, CCP, THYGLOB, JO1, CARDIO GMA, RPR W RFX, CAVAZOS, [id number], ADNA, HISAB, CH50, SJOGRENS, B2 GLYPROT, MITOM2, LUPANTCOAG, C4, ANTIR, TPO, C3, SMAB, GIANNA #### [facility] , Basophils/100 WBC (Bld) 0.9 % Normal . [facility] Comment on above: Performed By: #### T 4F, PTT, PT, CBC, CRP, ESR, ADDONUAPLUS, TSH3, CMP #### [place] [address] [place] #### RA, CCP, THYGLOB, JO1, CARDIO GMA, RPR W RFX, CAVAZOS, [id number], ADNA, HISAB, CH50, SJOGRENS, B2 GLYPROT, MITOM2, LUPANTCOAG, C4, ANTIR, TPO, C3, SMAB, GIANNA #### [facility] , Eosinophils (Bld) [#/Vol] 0.0 10*3/uL Normal 0.0-0.45 [facility] Comment on above: Performed By: #### T 4F, PTT, PT, CBC, CRP, ESR, ADDONUAPLUS, TSH3, CMP #### [place] [address] [place] #### RA, CCP, THYGLOB, JO1, CARDIO GMA, RPR W RFX, CAVAZOS, [id number], ADNA, HISAB, CH50, SJOGRENS, B2 GLYPROT, MITOM2, LUPANTCOAG, C4, ANTIR, TPO, C3, SMAB, GIANNA #### [facility] , Eosinophils/100 WBC (Bld) 0.6 % Normal . [facility] Comment on above: Performed By: #### T 4F, PTT, PT, CBC, CRP, ESR, ADDONUAPLUS, TSH3, CMP #### [place] [address] [place] #### RA, CCP, THYGLOB, JO1, CARDIO GMA, RPR W RFX, CAVAZOS, [id number], ADNA, HISAB, CH50, SJOGRENS, B2 GLYPROT, MITOM2, LUPANTCOAG, C4, ANTIR, TPO, C3, SMAB, GIANNA #### [facility] , Erythrocyte distribution width (RBC) [Ratio] 13.2 % Normal 11.9-15.3 [facility] Comment on above: Performed By: #### T 4F, PTT, PT, CBC, CRP, ESR, ADDONUAPLUS, TSH3, CMP #### [place] [address] [place] #### RA, CCP, THYGLOB, JO1, CARDIO GMA, RPR W RFX, CAVAZOS, [id number], ADNA, HISAB, CH50, SJOGRENS, B2 GLYPROT, MITOM2, LUPANTCOAG, C4, ANTIR, TPO, C3, SMAB, GIANNA #### [facility] , Hematocrit (Bld) [Volume fraction] 43.4 % Normal 34.0-46.4 [facility] Comment on above: Performed By: #### T 4F, PTT, PT, CBC, CRP, ESR, ADDONUAPLUS, TSH3, CMP #### [place] [address] [place] #### RA, CCP, THYGLOB, JO1, CARDIO GMA, RPR W RFX, CAVAZOS, [id number], ADNA, HISAB, CH50, SJOGRENS, B2 GLYPROT, MITOM2, LUPANTCOAG, C4, ANTIR, TPO, C3, SMAB, GIANNA #### [facility] , Hemoglobin (Bld) [Mass/Vol] 14.9 g/dL Normal 11.8-15.4 [facility] Comment on above: Performed By: #### T 4F, PTT, PT, CBC, CRP, ESR, ADDONUAPLUS, TSH3, CMP #### [address] #### RA, CCP, THYGLOB, JO1, CARDIO GMA, RPR W RFX, CAVAZOS, [id number], ADNA, HISAB, CH50, SJOGRENS, B2 GLYPROT, MITOM2, LUPANTCOAG, C4, ANTIR, TPO, C3, SMAB, GIANNA #### [facility] , Lymphocytes (Bld) [#/Vol] 2.7 10*3/uL Normal 1.00-4.8 [facility] Comment on above: Performed By: #### T 4F, PTT, PT, CBC, CRP, ESR, ADDONUAPLUS, TSH3, CMP #### [place] [address] [place] #### RA, CCP, THYGLOB, JO1, CARDIO GMA, RPR W RFX, CAVAZOS, [id number], ADNA, HISAB, CH50, SJOGRENS, B2 GLYPROT, MITOM2, LUPANTCOAG, C4, ANTIR, TPO, C3, SMAB, GIANNA #### [facility] , Lymphocytes/100 WBC (Bld) 36.5 % Normal . [facility] Comment on above: Performed By: #### T 4F, PTT, PT, CBC, CRP, ESR, ADDONUAPLUS, TSH3, CMP #### [place] [address] [place] #### RA, CCP, THYGLOB, JO1, CARDIO GMA, RPR W RFX, CAVAZOS, [id number], ADNA, HISAB, CH50, SJOGRENS, B2 GLYPROT, MITOM2, LUPANTCOAG, C4, ANTIR, TPO, C3, SMAB, GIANNA #### [facility] , MCH (RBC) [Entitic mass] 29.5 pg Normal 24.7-34.3 [facility] Comment on above: Performed By: #### T 4F, PTT, PT, CBC, CRP, ESR, ADDONUAPLUS, TSH3, CMP #### [address] #### RA, CCP, THYGLOB, JO1, CARDIO GMA, RPR W RFX, CAVAZOS, [id number], ADNA, HISAB, CH50, SJOGRENS, B2 GLYPROT, MITOM2, LUPANTCOAG, C4, ANTIR, TPO, C3, SMAB, GIANNA #### [facility] , MCV (RBC) [Entitic vol] 85.7 fL Normal 80-100 [facility] Comment on above: Performed By: #### T 4F, PTT, PT, CBC, CRP, ESR, ADDONUAPLUS, TSH3, CMP #### [place] [address] [place] #### RA, CCP, THYGLOB, JO1, CARDIO GMA, RPR W RFX, CAVAZOS, [id number], ADNA, HISAB, CH50, SJOGRENS, B2 GLYPROT, MITOM2, LUPANTCOAG, C4, ANTIR, TPO, C3, SMAB, GIANNA #### [facility] , Mean Corpuscular HGB Conc 34.5 g/dL Normal 32.0-35.0 [facility] Comment on above: Performed By: #### T 4F, PTT, PT, CBC, CRP, ESR, ADDONUAPLUS, TSH3, CMP #### [place] [address] [place] #### RA, CCP, THYGLOB, JO1, CARDIO GMA, RPR W RFX, CAVAZOS, [id number], ADNA, HISAB, CH50, SJOGRENS, B2 GLYPROT, MITOM2, LUPANTCOAG, C4, ANTIR, TPO, C3, SMAB, GIANNA #### [facility] , Monocytes (Bld) [#/Vol] 0.4 10*3/uL Normal 0.0-0.8 [facility] Comment on above: Performed By: #### T 4F, PTT, PT, CBC, CRP, ESR, ADDONUAPLUS, TSH3, CMP #### [address] #### RA, CCP, THYGLOB, JO1, CARDIO GMA, RPR W RFX, CAVAZOS, [id number], ADNA, HISAB, CH50, SJOGRENS, B2 GLYPROT, MITOM2, LUPANTCOAG, C4, ANTIR, TPO, C3, SMAB, GIANNA #### [facility] , Monocytes/100 WBC (Bld) 5.2 % Normal . The [facility] Comment on above: Performed By: #### T 4F, PTT, PT, CBC, CRP, ESR, ADDONUAPLUS, TSH3, CMP #### [place] [address] [place] #### RA, CCP, THYGLOB, JO1, CARDIO GMA, RPR W RFX, CAVAZOS, [id number], ADNA, HISAB, CH50, SJOGRENS, B2 GLYPROT, MITOM2, LUPANTCOAG, C4, ANTIR, TPO, C3, SMAB, GIANNA #### [facility] , Neutrophils (Bld) [#/Vol] 4.2 10*3/uL Normal 1.8-7.7 The [facility] Comment on above: Performed By: #### T 4F, PTT, PT, CBC, CRP, ESR, ADDONUAPLUS, TSH3, CMP #### [place] [address] [place] #### RA, CCP, THYGLOB, JO1, CARDIO GMA, RPR W RFX, CAVAZOS, [id number], ADNA, HISAB, CH50, SJOGRENS, B2 GLYPROT, MITOM2, LUPANTCOAG, C4, ANTIR, TPO, C3, SMAB, GIANNA #### [facility] , Neutrophils/100 WBC (Bld) 56.8 % Normal . The [facility] Comment on above: Performed By: #### T 4F, PTT, PT, CBC, CRP, ESR, ADDONUAPLUS, TSH3, CMP #### [address] #### RA, CCP, THYGLOB, JO1, CARDIO GMA, RPR W RFX, CAVAZOS, [id number], ADNA, HISAB, CH50, SJOGRENS, B2 GLYPROT, MITOM2, LUPANTCOAG, C4, ANTIR, TPO, C3, SMAB, GIANNA #### [facility] , NRBC% 0.0 /100{WBC} Normal 0-0.5 The [facility] Comment on above: Performed By: #### T 4F, PTT, PT, CBC, CRP, ESR, ADDONUAPLUS, TSH3, CMP #### [address] #### RA, CCP, THYGLOB, JO1, CARDIO GMA, RPR W RFX, CAVAZOS, [id number], ADNA, HISAB, CH50, SJOGRENS, B2 GLYPROT, MITOM2, LUPANTCOAG, C4, ANTIR, TPO, C3, SMAB, GIANNA #### [facility] , Platelet mean volume (Bld) [Entitic vol] 9.3 fL Normal 6.3-10.7 The [facility] Comment on above: Performed By: #### T 4F, PTT, PT, CBC, CRP, ESR, ADDONUAPLUS, TSH3, CMP #### [place] [address] [place] #### RA, CCP, THYGLOB, JO1, CARDIO GMA, RPR W RFX, CAVAZOS, [id number], ADNA, HISAB, CH50, SJOGRENS, B2 GLYPROT, MITOM2, LUPANTCOAG, C4, ANTIR, TPO, C3, SMAB, GIANNA #### [facility] , Platelets (Bld) [#/Vol] 246 10*3/uL Normal 150-450 The [facility] Comment on above: Performed By: #### T 4F, PTT, PT, CBC, CRP, ESR, ADDONUAPLUS, TSH3, CMP #### [address] #### RA, CCP, THYGLOB, JO1, CARDIO GMA, RPR W RFX, CAVAZOS, [id number], ADNA, HISAB, CH50, SJOGRENS, B2 GLYPROT, MITOM2, LUPANTCOAG, C4, ANTIR, TPO, C3, SMAB, GIANNA #### [facility] , RBC (Bld) [#/Vol] 5.06 10*6/uL High 3.60-5.00 The [facility] Comment on above: Performed By: #### T 4F, PTT, PT, CBC, CRP, ESR, ADDONUAPLUS, TSH3, CMP #### [address] #### RA, CCP, THYGLOB, JO1, CARDIO GMA, RPR W RFX, CAVAZOS, [id number], ADNA, HISAB, CH50, SJOGRENS, B2 GLYPROT, MITOM2, LUPANTCOAG, C4, ANTIR, TPO, C3, SMAB, GIANNA #### [facility] , WBC (Bld) [#/Vol] 7.4 10*3/uL Normal 3.8-11.6 The [facility] Comment on above: Performed By: #### T 4F, PTT, PT, CBC, CRP, ESR, ADDONUAPLUS, TSH3, CMP #### [address] #### RA, CCP, THYGLOB, JO1, CARDIO GMA, RPR W RFX, CAVAZOS, [id number], ADNA, HISAB, CH50, SJOGRENS, B2 GLYPROT, MITOM2, LUPANTCOAG, C4, ANTIR, TPO, C3, SMAB, GIANNA #### [facility] , Comprehensive Metabolic Pane angel 03-16-2025 Albumin [Mass/Vol] 4.5 g/dL Normal 3.5-5.7 The [facility] Comment on above: Performed By: #### T 4F, PTT, PT, CBC, CRP, ESR, ADDONUAPLUS, TSH3, CMP #### [address] #### RA, CCP, THYGLOB, JO1, CARDIO GMA, RPR W RFX, CAVAZOS, [id number], ADNA, HISAB, CH50, SJOGRENS, B2 GLYPROT, MITOM2, LUPANTCOAG, C4, ANTIR, TPO, C3, SMAB, GIANNA #### [facility] , Albumin/Globulin [Mass ratio] 1.8 {ratio} Normal The [facility] Comment on above: Performed By: #### T 4F, PTT, PT, CBC, CRP, ESR, ADDONUAPLUS, TSH3, CMP #### [address] #### RA, CCP, THYGLOB, JO1, CARDIO GMA, RPR W RFX, CAVAZOS, [id number], ADNA, HISAB, CH50, SJOGRENS, B2 GLYPROT, MITOM2, LUPANTCOAG, C4, ANTIR, TPO, C3, SMAB, GIANNA #### [facility] , ALP [Catalytic activity/Vol] 83 U/L Normal 34-104 The [facility] Comment on above: Performed By: #### T 4F, PTT, PT, CBC, CRP, ESR, ADDONUAPLUS, TSH3, CMP #### [address] #### RA, CCP, THYGLOB, JO1, CARDIO GMA, RPR W RFX, CAVAZOS, [id number], ADNA, HISAB, CH50, SJOGRENS, B2 GLYPROT, MITOM2, LUPANTCOAG, C4, ANTIR, TPO, C3, SMAB, GIANNA #### [facility] , ALT [Catalytic activity/Vol] 17 U/L Normal 7-52 The [facility] Comment on above: Performed By: #### T 4F, PTT, PT, CBC, CRP, ESR, ADDONUAPLUS, TSH3, CMP #### [address] #### RA, CCP, THYGLOB, JO1, CARDIO GMA, RPR W RFX, CAVAZOS, [id number], ADNA, HISAB, CH50, SJOGRENS, B2 GLYPROT, MITOM2, LUPANTCOAG, C4, ANTIR, TPO, C3, SMAB, GIANNA #### [facility] , Anion gap [Moles/Vol] 11.2 mmol/L Normal 6.0-15.0 The [facility] Comment on above: Performed By: #### T 4F, PTT, PT, CBC, CRP, ESR, ADDONUAPLUS, TSH3, CMP #### [address] #### RA, CCP, THYGLOB, JO1, CARDIO GMA, RPR W RFX, CAVAZOS, [id number], ADNA, HISAB, CH50, SJOGRENS, B2 GLYPROT, MITOM2, LUPANTCOAG, C4, ANTIR, TPO, C3, SMAB, GIANNA #### [facility] , AST [Catalytic activity/Vol] 14 U/L Normal 13-39 The [facility] Comment on above: Performed By: #### T 4F, PTT, PT, CBC, CRP, ESR, ADDONUAPLUS, TSH3, CMP #### [place] [address] [place] #### RA, CCP, THYGLOB, JO1, CARDIO GMA, RPR W RFX, CAVAZOS, [id number], ADNA, HISAB, CH50, SJOGRENS, B2 GLYPROT, MITOM2, LUPANTCOAG, C4, ANTIR, TPO, C3, SMAB, GIANNA #### [facility] , Bilirubin [Mass/Vol] 0.5 mg/dL Normal 0.3-1.0 The [facility] Comment on above: Performed By: #### T 4F, PTT, PT, CBC, CRP, ESR, ADDONUAPLUS, TSH3, CMP #### [address] #### RA, CCP, THYGLOB, JO1, CARDIO GMA, RPR W RFX, CAVAZOS, [id number], ADNA, HISAB, CH50, SJOGRENS, B2 GLYPROT, MITOM2, LUPANTCOAG, C4, ANTIR, TPO, C3, SMAB, GIANNA #### [facility] , Calcium [Mass/Vol] 9.4 mg/dL Normal 8.6-10.3 The [facility] Comment on above: Performed By: #### T 4F, PTT, PT, CBC, CRP, ESR, ADDONUAPLUS, TSH3, CMP #### [address] #### RA, CCP, THYGLOB, JO1, CARDIO GMA, RPR W RFX, CAVAZOS, [id number], ADNA, HISAB, CH50, SJOGRENS, B2 GLYPROT, MITOM2, LUPANTCOAG, C4, ANTIR, TPO, C3, SMAB, GIANNA #### [facility] , Chloride [Moles/Vol] 107 mmol/L Normal 98-107 The [facility] Comment on above: Performed By: #### T 4F, PTT, PT, CBC, CRP, ESR, ADDONUAPLUS, TSH3, CMP #### [place] [address] [place] #### RA, CCP, THYGLOB, JO1, CARDIO GMA, RPR W RFX, CAVAZOS, [id number], ADNA, HISAB, CH50, SJOGRENS, B2 GLYPROT, MITOM2, LUPANTCOAG, C4, ANTIR, TPO, C3, SMAB, GIANNA #### [facility] , CO2 [Moles/Vol] 24.8 mmol/L Normal 21.0-31.0 The [facility] Comment on above: Performed By: #### T 4F, PTT, PT, CBC, CRP, ESR, ADDONUAPLUS, TSH3, CMP #### [address] #### RA, CCP, THYGLOB, JO1, CARDIO GMA, RPR W RFX, CAVAZOS, [id number], ADNA, HISAB, CH50, SJOGRENS, B2 GLYPROT, MITOM2, LUPANTCOAG, C4, ANTIR, TPO, C3, SMAB, GIANNA #### [facility] , Creatinine [Mass/Vol] 0.67 mg/dL Normal 0.60-1.20 The [facility] Comment on above: Performed By: #### T 4F, PTT, PT, CBC, CRP, ESR, ADDONUAPLUS, TSH3, CMP #### [address] #### RA, CCP, THYGLOB, JO1, CARDIO GMA, RPR W RFX, CAVAZOS, [id number], ADNA, HISAB, CH50, SJOGRENS, B2 GLYPROT, MITOM2, LUPANTCOAG, C4, ANTIR, TPO, C3, SMAB, GIANNA #### [facility] , GFR/1.73 sq M.predicted MDRD (S/P/Bld) [Vol rate/Area] mL/min/{1.73_m2} Normal The [facility] Comment on above: Performed By: #### T 4F, PTT, PT, CBC, CRP, ESR, ADDONUAPLUS, TSH3, CMP #### [place] [address] [place] #### RA, CCP, THYGLOB, JO1, CARDIO GMA, RPR W RFX, CAVAZOS, [id number], ADNA, HISAB, CH50, SJOGRENS, B2 GLYPROT, MITOM2, LUPANTCOAG, C4, ANTIR, TPO, C3, SMAB, GIANNA #### [facility] , Globulin (S) [Mass/Vol] 2.5 g/dL Normal The [facility] Comment on above: Performed By: #### T 4F, PTT, PT, CBC, CRP, ESR, ADDONUAPLUS, TSH3, CMP #### [address] #### RA, CCP, THYGLOB, JO1, CARDIO GMA, RPR W RFX, CAVAZOS, [id number], ADNA, HISAB, CH50, SJOGRENS, B2 GLYPROT, MITOM2, LUPANTCOAG, C4, ANTIR, TPO, C3, SMAB, GIANNA #### [facility] , Glucose [Mass/Vol] 85 mg/dL Normal 70-100 The [facility] Comment on above: Result Comment: [facility] Glucose Reference Range is dependent on time and content of last meal. Glucose of more than 200 mg/dL in a nonstressed, ambulatory subject supports the diagnosis of Diabetes Mellitus. ADA recommended reference range Performed By: #### T 4F, PTT, PT, CBC, CRP, ESR, ADDONUAPLUS, TSH3, CMP #### [place] [address] [place] #### RA, CCP, THYGLOB, JO1, CARDIO GMA, RPR W RFX, CAVAZOS, [id number], ADNA, HISAB, CH50, SJOGRENS, B2 GLYPROT, MITOM2, LUPANTCOAG, C4, ANTIR, TPO, C3, SMAB, GIANNA #### [facility] , Potassium [Moles/Vol] 4.0 mmol/L Normal 3.5-5.1 The [facility] Comment on above: Performed By: #### T 4F, PTT, PT, CBC, CRP, ESR, ADDONUAPLUS, TSH3, CMP #### [place] [address] [place] #### RA, CCP, THYGLOB, JO1, CARDIO GMA, RPR W RFX, CAAVZOS, [id number], ADNA, HISAB, CH50, SJOGRENS, B2 GLYPROT, MITOM2, LUPANTCOAG, C4, ANTIR, TPO, C3, SMAB, GIANNA #### [facility] , Protein [Mass/Vol] 7.0 g/dL Normal 6.4-8.9 The [facility] Comment on above: Performed By: #### T 4F, PTT, PT, CBC, CRP, ESR, ADDONUAPLUS, TSH3, CMP #### [place] [address] [place] #### RA, CCP, THYGLOB, JO1, CARDIO GMA, RPR W RFX, CAVAZOS, [id number], ADNA, HISAB, CH50, SJOGRENS, B2 GLYPROT, MITOM2, LUPANTCOAG, C4, ANTIR, TPO, C3, SMAB, GIANNA #### [facility] , Sodium [Moles/Vol] 139 mmol/L Normal 136-145 [facility] Comment on above: Performed By: #### T 4F, PTT, PT, CBC, CRP, ESR, ADDONUAPLUS, TSH3, CMP #### [address] #### RA, CCP, THYGLOB, JO1, CARDIO GMA, RPR W RFX, CAVAZOS, [id number], ADNA, HISAB, CH50, SJOGRENS, B2 GLYPROT, MITOM2, LUPANTCOAG, C4, ANTIR, TPO, C3, SMAB, GIANNA #### [facility] , Urea nitrogen [Mass/Vol] 10 mg/dL Normal 7-25 The [facility] Comment on above: Performed By: #### T 4F, PTT, PT, CBC, CRP, ESR, ADDONUAPLUS, TSH3, CMP #### [place] [address] [place] #### RA, CCP, THYGLOB, JO1, CARDIO GMA, RPR W RFX, CAVAZOS, [id number], ADNA, HISAB, CH50, SJOGRENS, B2 GLYPROT, MITOM2, LUPANTCOAG, C4, ANTIR, TPO, C3, SMAB, GIANNA #### [facility] , Cyclic Citrulliated Pep Abon 03-16-2025 Cyclic Citrulliated Pep Ab 9 Normal 0-19 The [facility] Comment on above: Result Comment: Nega tive <20 Weak positive 20 - 39 Moderate positive 40 - 59 Strong positive >59 Performed at: [facility] [id number] Finishing Machine Tender: Ronaldo Deleon PhD, Phone: [phone] Performed By: #### T 4F, PTT, PT, CBC, CRP, ESR, ADDONUAPLUS, TSH3, CMP #### [address] #### RA, CCP, THYGLOB, JO1, CARDIO GMA, RPR W RFX, CAVAZOS, [id number], ADNA, HISAB, CH50, SJOGRENS, B2 GLYPROT, MITOM2, LUPANTCOAG, C4, ANTIR, TPO, C3, SMAB, GIANNA #### [facility] , Dipstick and Microscopicon 0 03-16-2025 Appearance (U) Clear Normal Clear The [facility] Comment on above: Order Comment: Name Collection Type:: Clean-Voided Midstream Performed By: #### T 4F, PTT, PT, CBC, CRP, ESR, ADDONUAPLUS, TSH3, CMP #### [place] [address] [place] #### RA, CCP, THYGLOB, JO1, CARDIO GMA, RPR W RFX, CAVAZOS, [id number], ADNA, HISAB, CH50, SJOGRENS, B2 GLYPROT, MITOM2, LUPANTCOAG, C4, ANTIR, TPO, C3, SMAB, GIANNA #### [facility] , Bacteria,Urine Rare Normal None Seen The [facility] Comment on above: Order Comment: Name Collection Type:: Clean-Voided Midstream Performed By: #### T 4F, PTT, PT, CBC, CRP, ESR, ADDONUAPLUS, TSH3, CMP #### [place] [address] [place] #### RA, CCP, THYGLOB, JO1, CARDIO GMA, RPR W RFX, CAVAZOS, [id number], ADNA, HISAB, CH50, SJOGRENS, B2 GLYPROT, MITOM2, LUPANTCOAG, C4, ANTIR, TPO, C3, SMAB, GIANNA #### [facility] , Bilirubin,Urine Negative Normal Negative The [facility] Comment on above: Order Comment: Name Collection Type:: Clean-Voided Midstream Performed By: #### T 4F, PTT, PT, CBC, CRP, ESR, ADDONUAPLUS, TSH3, CMP #### [address] #### RA, CCP, THYGLOB, JO1, CARDIO GMA, RPR W RFX, CAVAZOS, [id number], ADNA, HISAB, CH50, SJOGRENS, B2 GLYPROT, MITOM2, LUPANTCOAG, C4, ANTIR, TPO, C3, SMAB, GIANNA #### [facility] , Color (U) Colorless Normal Yellow The [facility] Comment on above: Order Comment: Name Collection Type:: Clean-Voided Midstream Performed By: #### T 4F, PTT, PT, CBC, CRP, ESR, ADDONUAPLUS, TSH3, CMP #### [address] #### RA, CCP, THYGLOB, JO1, CARDIO GMA, RPR W RFX, CAVAZOS, [id number], ADNA, HISAB, CH50, SJOGRENS, B2 GLYPROT, MITOM2, LUPANTCOAG, C4, ANTIR, TPO, C3, SMAB, GIANNA #### [facility] , Glucose Ql (U) Normal Normal Normal The [facility] Comment on above: Order Comment: Name Collection Type:: Clean-Voided Midstream Performed By: #### T 4F, PTT, PT, CBC, CRP, ESR, ADDONUAPLUS, TSH3, CMP #### [address] #### RA, CCP, THYGLOB, JO1, CARDIO GMA, RPR W RFX, CAVAZOS, [id number], ADNA, HISAB, CH50, SJOGRENS, B2 GLYPROT, MITOM2, LUPANTCOAG, C4, ANTIR, TPO, C3, SMAB, GIANNA #### [facility] , Hyaline Casts,Urine None Normal 0-8 [facility] Comment on above: Order Comment: Name Collection Type:: Clean-Voided Midstream Result Comment: PERF ORMED BY: [place] [address] PATHOLOGIST INFORMATION ASSURANCE ANALYST LAKHWINDER MIR M.D. Performed By: #### T 4F, PTT, PT, CBC, CRP, ESR, ADDONUAPLUS, TSH3, CMP #### [address] #### RA, CCP, THYGLOB, JO1, CARDIO GMA, RPR W RFX, CAVAZOS, [id number], ADNA, HISAB, CH50, SJOGRENS, B2 GLYPROT, MITOM2, LUPANTCOAG, C4, ANTIR, TPO, C3, SMAB, GIANNA #### [facility] , Ketones Ql (U) Negative Normal Negative The [facility] Comment on above: Order Comment: Name Collection Type:: Clean-Voided Midstream Performed By: #### T 4F, PTT, PT, CBC, CRP, ESR, ADDONUAPLUS, TSH3, CMP #### [address] #### RA, CCP, THYGLOB, JO1, CARDIO GMA, RPR W RFX, CAVAZOS, [id number], ADNA, HISAB, CH50, SJOGRENS, B2 GLYPROT, MITOM2, LUPANTCOAG, C4, ANTIR, TPO, C3, SMAB, GIANNA #### [facility] , Leukocyte esterase Test strip Ql (U) Negative Normal Negative The [facility] Comment on above: Order Comment: Name Collection Type:: Clean-Voided Midstream Performed By: #### T 4F, PTT, PT, CBC, CRP, ESR, ADDONUAPLUS, TSH3, CMP #### [address] #### RA, CCP, THYGLOB, JO1, CARDIO GMA, RPR W RFX, CAVAZOS, [id number], ADNA, HISAB, CH50, SJOGRENS, B2 GLYPROT, MITOM2, LUPANTCOAG, C4, ANTIR, TPO, C3, SMAB, GIANNA #### [facility] , Nitrite,Urine Negative Normal Negative The [facility] Comment on above: Order Comment: Name Collection Type:: Clean-Voided Midstream Performed By: #### T 4F, PTT, PT, CBC, CRP, ESR, ADDONUAPLUS, TSH3, CMP #### [address] #### RA, CCP, THYGLOB, JO1, CARDIO GMA, RPR W RFX, CAVAZOS, [id number], ADNA, HISAB, CH50, SJOGRENS, B2 GLYPROT, MITOM2, LUPANTCOAG, C4, ANTIR, TPO, C3, SMAB, GIANNA #### [facility] , Occult Blood,Urine Negative Normal Negative The [facility] Comment on above: Order Comment: Name Collection Type:: Clean-Voided Midstream Performed By: #### T 4F, PTT, PT, CBC, CRP, ESR, ADDONUAPLUS, TSH3, CMP #### [address] #### RA, CCP, THYGLOB, JO1, CARDIO GMA, RPR W RFX, CAVAZOS, [id number], ADNA, HISAB, CH50, SJOGRENS, B2 GLYPROT, MITOM2, LUPANTCOAG, C4, ANTIR, TPO, C3, SMAB, GIANNA #### [facility] , pH (U) 5.5 [pH] Normal 5.0-9.0 The [facility] Comment on above: Order Comment: Name Collection Type:: Clean-Voided Midstream Performed By: #### T 4F, PTT, PT, CBC, CRP, ESR, ADDONUAPLUS, TSH3, CMP #### [address] #### RA, CCP, THYGLOB, JO1, CARDIO GMA, RPR W RFX, CAVAZOS, [id number], ADNA, HISAB, CH50, SJOGRENS, B2 GLYPROT, MITOM2, LUPANTCOAG, C4, ANTIR, TPO, C3, SMAB, GIANNA #### [facility] , Protein,Urine Negative Normal Negative The [facility] Comment on above: Order Comment: Name Collection Type:: Clean-Voided Midstream Performed By: #### T 4F, PTT, PT, CBC, CRP, ESR, ADDONUAPLUS, TSH3, CMP #### [address] #### RA, CCP, THYGLOB, JO1, CARDIO GMA, RPR W RFX, CAVAZOS, [id number], ADNA, HISAB, CH50, SJOGRENS, B2 GLYPROT, MITOM2, LUPANTCOAG, C4, ANTIR, TPO, C3, SMAB, GIANNA #### [facility] , RBC,Urine None Seen Normal 0-4 The [facility] Comment on above: Order Comment: Name Collection Type:: Clean-Voided Midstream Performed By: #### T 4F, PTT, PT, CBC, CRP, ESR, ADDONUAPLUS, TSH3, CMP #### [address] #### RA, CCP, THYGLOB, JO1, CARDIO GMA, RPR W RFX, CAVAZOS, [id number], ADNA, HISAB, CH50, SJOGRENS, B2 GLYPROT, MITOM2, LUPANTCOAG, C4, ANTIR, TPO, C3, SMAB, GIANNA #### [facility] , Specificy [place],Urine 1.004 Normal 1.001-1.03 0 The [facility] Comment on above: Order Comment: Name Collection Type:: Clean-Voided Midstream Performed By: #### T 4F, PTT, PT, CBC, CRP, ESR, ADDONUAPLUS, TSH3, CMP #### [address] #### RA, CCP, THYGLOB, JO1, CARDIO GMA, RPR W RFX, CAVAZOS, [id number], ADNA, HISAB, CH50, SJOGRENS, B2 GLYPROT, MITOM2, LUPANTCOAG, C4, ANTIR, TPO, C3, SMAB, GIANNA #### [facility] , Squamous Epithelial Cell,Urine 5-9 High 0-2 The [facility] Comment on above: Order Comment: Name Collection Type:: Clean-Voided Midstream Performed By: #### T 4F, PTT, PT, CBC, CRP, ESR, ADDONUAPLUS, TSH3, CMP #### [address] #### RA, CCP, THYGLOB, JO1, CARDIO GMA, RPR W RFX, CAVAZOS, [id number], ADNA, HISAB, CH50, SJOGRENS, B2 GLYPROT, MITOM2, LUPANTCOAG, C4, ANTIR, TPO, C3, SMAB, GIANNA #### [facility] , Urobilinogen,Urine Normal Normal Normal The [facility] Comment on above: Order Comment: Name Collection Type:: Clean-Voided Midstream Performed By: #### T 4F, PTT, PT, CBC, CRP, ESR, ADDONUAPLUS, TSH3, CMP #### [address] #### RA, CCP, THYGLOB, JO1, CARDIO GMA, RPR W RFX, CAVAZOS, [id number], ADNA, HISAB, CH50, SJOGRENS, B2 GLYPROT, MITOM2, LUPANTCOAG, C4, ANTIR, TPO, C3, SMAB, GIANNA #### [facility] , WBC,Urine 1-2 Normal 0-4 The [facility] Comment on above: Order Comment: Name Collection Type:: Clean-Voided Midstream Performed By: #### T 4F, PTT, PT, CBC, CRP, ESR, ADDONUAPLUS, TSH3, CMP #### [place] [address] [place] #### RA, CCP, THYGLOB, JO1, CARDIO GMA, RPR W RFX, CAVAZOS, [id number], ADNA, HISAB, CH50, SJOGRENS, B2 GLYPROT, MITOM2, LUPANTCOAG, C4, ANTIR, TPO, C3, SMAB, GIANNA #### [facility] , Erythrocyte Sedimentation Ra abdirizak 03-16-2025 ESR (Bld) [Velocity] 27 mm/h High 0-19 [facility] Comment on above: Result Comment: PERF ORMED BY: [place] [address] PATHOLOGIST INFORMATION ASSURANCE ANALYST LAKHWINDER MIR M.D. Performed By: #### T 4F, PTT, PT, CBC, CRP, ESR, ADDONUAPLUS, TSH3, CMP #### [address] #### RA, CCP, THYGLOB, JO1, CARDIO GMA, RPR W RFX, CAVAZOS, [id number], ADNA, HISAB, CH50, SJOGRENS, B2 GLYPROT, MITOM2, LUPANTCOAG, C4, ANTIR, TPO, C3, SMAB, GIANNA #### [facility] , Free T4 (Free Thyroxine)on 0 03-16-2025 Free T4 [Mass/Vol] 0.86 ng/dL Normal 0.61-1.12 [facility] Comment on above: Performed By: #### T 4F, PTT, PT, CBC, CRP, ESR, ADDONUAPLUS, TSH3, CMP #### [place] [address] [place] #### RA, CCP, THYGLOB, JO1, CARDIO GMA, RPR W RFX, CAVAZOS, [id number], ADNA, HISAB, CH50, SJOGRENS, B2 GLYPROT, MITOM2, LUPANTCOAG, C4, ANTIR, TPO, C3, SMAB, GIANNA #### [facility] , Histone Antibodieson 025 Histone Antibodies 0.3 Normal 0.0-0.9 [facility] Comment on above: Result Comment: Nega tive <1.0 Weak Positive 1.0 - 1.5 Moderate Positive 1.6 - 2.5 Strong Positive >2.5 Performed at: [address] [id number] Finishing Machine Tender: Nikolas Parnell MD, Phone: [phone] Performed By: #### T 4F, PTT, PT, CBC, CRP, ESR, ADDONUAPLUS, TSH3, CMP #### [address] #### RA, CCP, THYGLOB, JO1, CARDIO GMA, RPR W RFX, CAVAZOS, [id number], ADNA, HISAB, CH50, SJOGRENS, B2 GLYPROT, MITOM2, LUPANTCOAG, C4, ANTIR, TPO, C3, SMAB, GIANNA #### [facility] , GURMEET-1 Antibodyon 03-16-2025 GURMEET-1 Antibody <0.2 Normal 0.0-0.9 [facility] Comment on above: Performed By: #### T 4F, PTT, PT, CBC, CRP, ESR, ADDONUAPLUS, TSH3, CMP #### [place] [address] [place] #### RA, CCP, THYGLOB, JO1, CARDIO GMA, RPR W RFX, CAVAZOS, [id number], ADNA, HISAB, CH50, SJOGRENS, B2 GLYPROT, MITOM2, LUPANTCOAG, C4, ANTIR, TPO, C3, SMAB, GIANNA #### [facility] , Lupus Anticoagulant Compon 0 03-16-2025 Dilute Prothrombin Time (dPt) 37.3 Normal 0.0-47.6 The [facility] Comment on above: Performed By: #### T 4F, PTT, PT, CBC, CRP, ESR, ADDONUAPLUS, TSH3, CMP #### [place] [address] [place] #### RA, CCP, THYGLOB, JO1, CARDIO GMA, RPR W RFX, CAVAZOS, [id number], ADNA, HISAB, CH50, SJOGRENS, B2 GLYPROT, MITOM2, LUPANTCOAG, C4, ANTIR, TPO, C3, SMAB, GIANNA #### [facility] , dPT Confirm Ratio 1.03 Normal 0.00-1.[address] [facility] Comment on above: Performed By: #### T 4F, PTT, PT, CBC, CRP, ESR, ADDONUAPLUS, TSH3, CMP #### [address] #### RA, CCP, THYGLOB, JO1, CARDIO GMA, RPR W RFX, CAVAZOS, [id number], ADNA, HISAB, CH50, SJOGRENS, B2 GLYPROT, MITOM2, LUPANTCOAG, C4, ANTIR, TPO, C3, SMAB, GIANNA #### [facility] , DRVVT Lupus 42.3 Normal 0.0-47.0 The [facility] Comment on above: Performed By: #### T 4F, PTT, PT, CBC, CRP, ESR, ADDONUAPLUS, TSH3, CMP #### [address] #### RA, CCP, THYGLOB, JO1, CARDIO GMA, RPR W RFX, CAVAZOS, [id number], ADNA, HISAB, CH50, SJOGRENS, B2 GLYPROT, MITOM2, LUPANTCOAG, C4, ANTIR, TPO, C3, SMAB, GIANNA #### [facility] , Interpretation Comment: Normal . The [facility] Comment on above: Result Comment: No l upus anticoagulant was detected. Performed at: [facility] [id number] Finishing Machine Tender: Nikolas Parnell MD, Phone: [phone] PERFORMED BY: [place] [address] PATHOLOGIST INFORMATION ASSURANCE ANALYST LAKHWINDER MIR M.D. Performed By: #### T 4F, PTT, PT, CBC, CRP, ESR, ADDONUAPLUS, TSH3, CMP #### [address] #### RA, CCP, THYGLOB, JO1, CARDIO GMA, RPR W RFX, CAVAZOS, [id number], ADNA, HISAB, CH50, SJOGRENS, B2 GLYPROT, MITOM2, LUPANTCOAG, C4, ANTIR, TPO, C3, SMAB, GIANNA #### [facility] , PTT-LA 37.9 Normal 0.0-43.5 The [facility] Comment on above: Performed By: #### T 4F, PTT, PT, CBC, CRP, ESR, ADDONUAPLUS, TSH3, CMP #### [address] #### RA, CCP, THYGLOB, JO1, CARDIO GMA, RPR W RFX, CAVAZOS, [id number], ADNA, HISAB, CH50, SJOGRENS, B2 GLYPROT, MITOM2, LUPANTCOAG, C4, ANTIR, TPO, C3, SMAB, GIANNA #### [facility] , Thrombin Time 19.9 Normal 0.0-23.0 [facility] Comment on above: Performed By: #### T 4F, PTT, PT, CBC, CRP, ESR, ADDONUAPLUS, TSH3, CMP #### [address] #### RA, CCP, THYGLOB, JO1, CARDIO GMA, RPR W RFX, CAVAZOS, [id number], ADNA, HISAB, CH50, SJOGRENS, B2 GLYPROT, MITOM2, LUPANTCOAG, C4, ANTIR, TPO, C3, SMAB, GIANNA #### [facility] , Mitochondrial (M2) Antibodyo n 03-16-2025 Mitochondrial (M2) Antibody <20.0 Normal 0.0-20.0 [facility] Comment on above: Result Comment: Nega tive 0.0 - 20.0 Equivocal 20.1 - 24.9 Positive >24.9 Mitochondrial (M2) Antibodies are found in 90-96% of patients with primary biliary cirrhosis. Performed at: [facility] [address], [place] [id number] Finishing Machine Tender: Ronaldo Deleon PhD, Phone: [phone] Performed By: #### T 4F, PTT, PT, CBC, CRP, ESR, ADDONUAPLUS, TSH3, CMP #### [address] #### RA, CCP, THYGLOB, JO1, CARDIO GMA, RPR W RFX, CAVAZOS, [id number], ADNA, HISAB, CH50, SJOGRENS, B2 GLYPROT, MITOM2, LUPANTCOAG, C4, ANTIR, TPO, C3, SMAB, GIANNA #### [facility] , Partial Thromboplastin Timeo n 03-16-2025 aPTT Coag (Bld) [Time] 30.0 s Normal 25.1-36.5 [facility] Comment on above: Result Comment: A he matocrit value greater than 55% may lead to inaccurate results in coagulation testing. Patients having hematocrit values >55% require a special collection tube for coagulation studies. Please contact the laboratory at [phone] for redraw instructions. PERFORMED BY: [place] [address] PATHOLOGIST INFORMATION ASSURANCE ANALYST LAKHWINDER MIR M.D. Performed By: #### T 4F, PTT, PT, CBC, CRP, ESR, ADDONUAPLUS, TSH3, CMP #### [address] #### RA, CCP, THYGLOB, JO1, CARDIO GMA, RPR W RFX, CAVAZOS, [id number], ADNA, HISAB, CH50, SJOGRENS, B2 GLYPROT, MITOM2, LUPANTCOAG, C4, ANTIR, TPO, C3, SMAB, GIANNA #### [facility] , Prothrombin Time INRon 03-16 INR Coag (PPP) [Relative time] 1.0 {INR} Normal [facility] Comment on above: Result Comment: INR Therapeutic Range A) Pre- and Peroperative OAT started two weeks before surgery. NOT HIP SURGERY: 1.5 - 2.5 HIP SURGERY: 2 - 3 B) Primary and secondary prevention of venous THROMBOSIS: 2 - 3 C) Active venous thrombosis, pulmonary embolism and prevention of recurrent venous thrombosis: 2 - 3 D) Prevention of arterial thromboembolism including patients with mechanical heart valves: 3 - 4.5 Performed By: #### T 4F, PTT, PT, CBC, CRP, ESR, ADDONUAPLUS, TSH3, CMP #### [address] #### RA, CCP, THYGLOB, JO1, CARDIO GMA, RPR W RFX, CAVAZOS, [id number], ADNA, HISAB, CH50, SJOGRENS, B2 GLYPROT, MITOM2, LUPANTCOAG, C4, ANTIR, TPO, C3, SMAB, GIANNA #### [facility] , PT Coag (PPP) [Time] 11.6 s Normal 9.0-12.9 [facility] Comment on above: Result Comment: A he matocrit value greater than 55% may lead to inaccurate results in coagulation testing. Patients having hematocrit values >55% require a special collection tube for coagulation studies. Please contact the laboratory at [phone] for redraw instructions. Performed By: #### T 4F, PTT, PT, CBC, CRP, ESR, ADDONUAPLUS, TSH3, CMP #### [place] [address] [place] #### RA, CCP, THYGLOB, JO1, CARDIO GMA, RPR W RFX, CAVAZOS, [id number], ADNA, HISAB, CH50, SJOGRENS, B2 GLYPROT, MITOM2, LUPANTCOAG, C4, ANTIR, TPO, C3, SMAB, GIANNA #### [facility] , RPR w/rfx to Quant TP Abson 03-16-2025 RPR, Rfx Quant RPR Non-Reactive Normal Non Reactive [facility] Comment on above: Result Comment: Perf ormed at: - [facility] [address] [id number] Finishing Machine Tender: Ronaldo Deleon PhD, Phone: [phone] PERFORMED BY: [place] [address] PATHOLOGIST INFORMATION ASSURANCE ANALYST LAKHWINDER MIR M.D. Performed By: #### T 4F, PTT, PT, CBC, CRP, ESR, ADDONUAPLUS, TSH3, CMP #### [address] #### RA, CCP, THYGLOB, JO1, CARDIO GMA, RPR W RFX, CAVAZOS, [id number], ADNA, HISAB, CH50, SJOGRENS, B2 GLYPROT, MITOM2, LUPANTCOAG, C4, ANTIR, TPO, C3, SMAB, GIANNA #### [facility] , Rheumatoid Factoron 03-16-20 Rheumatoid Factor 24.8 [IU]/mL High <14.0 [facility] Comment on above: Result Comment: Perf ormed at: - [facility] [address] [id number] Finishing Machine Tender: Ronaldo Deleon PhD, Phone: [phone] Performed By: #### T 4F, PTT, PT, CBC, CRP, ESR, ADDONUAPLUS, TSH3, CMP #### [place] [address] [place] #### RA, CCP, THYGLOB, JO1, CARDIO GMA, RPR W RFX, CAVAZOS, [id number], ADNA, HISAB, CH50, SJOGRENS, B2 GLYPROT, MITOM2, LUPANTCOAG, C4, ANTIR, TPO, C3, SMAB, GIANNA #### [facility] , Scleroderma 70 Antibodieson 03-16-2025 Scleroderma 70 Antibodies <0.2 Normal 0.0-0.9 [facility] Comment on above: Performed By: #### T 4F, PTT, PT, CBC, CRP, ESR, ADDONUAPLUS, TSH3, CMP #### [place] [address] [place] #### RA, CCP, THYGLOB, JO1, CARDIO GMA, RPR W RFX, CAVAZOS, [id number], ADNA, HISAB, CH50, SJOGRENS, B2 GLYPROT, MITOM2, LUPANTCOAG, C4, ANTIR, TPO, C3, SMAB, GIANNA #### [facility] , Sjogrens Anti-SSA/SSBon 02-28 SS-A/Ro Sjogrens Antibody <0.2 Normal 0.0-0.9 [facility] Comment on above: Performed By: #### T 4F, PTT, PT, CBC, CRP, ESR, ADDONUAPLUS, TSH3, CMP #### [address] #### RA, CCP, THYGLOB, JO1, CARDIO GMA, RPR W RFX, CAVAZOS, [id number], ADNA, HISAB, CH50, SJOGRENS, B2 GLYPROT, MITOM2, LUPANTCOAG, C4, ANTIR, TPO, C3, SMAB, GIANNA #### [facility] , SS-B/La Sjogrens Antibody <0.2 Normal 0.0-0.9 [facility] Comment on above: Performed By: #### T 4F, PTT, PT, CBC, CRP, ESR, ADDONUAPLUS, TSH3, CMP #### [address] #### RA, CCP, THYGLOB, JO1, CARDIO GMA, RPR W RFX, CAVAZOS, [id number], ADNA, HISAB, CH50, SJOGRENS, B2 GLYPROT, MITOM2, LUPANTCOAG, C4, ANTIR, TPO, C3, SMAB, GIANNA #### [facility] , Smooth Muscle Antibodyon Smooth Muscle Antibody 9 Normal 0-19 [facility] Comment on above: Result Comment: Nega tive 0 - 19 Weak positive 20 - 30 Moderate to strong positive >30 Actin Antibodies are found in 52-85% of patients with autoimmune hepatitis or chronic active hepatitis and in 22% of patients with primary biliary cirrhosis. Performed By: #### T 4F, PTT, PT, CBC, CRP, ESR, ADDONUAPLUS, TSH3, CMP #### [facility] [address] [id number] [place] #### RA, CCP, THYGLOB, JO1, CARDIO GMA, RPR W RFX, CAVAZOS, [id number], ADNA, HISAB, CH50, SJOGRENS, B2 GLYPROT, MITOM2, LUPANTCOAG, C4, ANTIR, TPO, C3, SMAB, GIANNA #### [facility] , Thyroglobulin, Quant + Tg Ab on 03-16-2025 Antithyroglobulin Ab <1.0 Normal 0.0-0.9 [facility] Comment on above: Result Comment: Thyr oglobulin Antibody measured by [employer] [place] Methodology It should be noted that the presence of thyroglobulin antibodies may not be pathogenic nor diagnostic, especially at very low levels. The assay immunopathologist has found that four percent of individuals without evidence of thyroid disease or autoimmunity will have positive TgAb levels up to 4 IU/mL. Performed By: #### T 4F, PTT, PT, CBC, CRP, ESR, ADDONUAPLUS, TSH3, CMP #### [facility] [address] [id number] [place] #### RA, CCP, THYGLOB, JO1, CARDIO GMA, RPR W RFX, CAVAZOS, [id number], ADNA, HISAB, CH50, SJOGRENS, B2 GLYPROT, MITOM2, LUPANTCOAG, C4, ANTIR, TPO, C3, SMAB, GIANNA #### [facility] , Thyroglobulin by DORYS 39.2 ng/mL High 1.5-38.5 [facility] Comment on above: Result Comment: Acco rding to the National Academy of Clinical Biochemistry, the reference interval for Thyroglobulin (TG) should be related to euthyroid patients and not for patients who underwent thyroidectomy. TG reference intervals for these patients depend on the residual mass of the thyroid tissue left after surgery. Establishing a post-operative baseline is recommended. The assay limit of quantitation is 0.1 ng/mL Thyroglobulin measured by [employer] Immunometric Assay Performed at: [facility] [id number] Finishing Machine Tender: Ronaldo Deleon PhD, Phone: [phone] Performed By: #### T 4F, PTT, PT, CBC, CRP, ESR, ADDONUAPLUS, TSH3, CMP #### [place] [address] [place] #### RA, CCP, THYGLOB, JO1, CARDIO GMA, RPR W RFX, CAVAZOS, [id number], ADNA, HISAB, CH50, SJOGRENS, B2 GLYPROT, MITOM2, LUPANTCOAG, C4, ANTIR, TPO, C3, SMAB, GIANNA #### [facility] , Thyroid Peroxidase Antibodie son 03-16-2025 Thyroid Peroxidase Antibodies 9 [IU]/mL Normal 0-34 [facility] Comment on above: Result Comment: Perf ormed at: [facility] [id number] Finishing Machine Tender: Ronaldo Deleon PhD, Phone: [phone] Performed By: #### T 4F, PTT, PT, CBC, CRP, ESR, ADDONUAPLUS, TSH3, CMP #### [address] #### RA, CCP, THYGLOB, JO1, CARDIO GMA, RPR W RFX, CAVAZOS, [id number], ADNA, HISAB, CH50, SJOGRENS, B2 GLYPROT, MITOM2, LUPANTCOAG, C4, ANTIR, TPO, C3, SMAB, GIANNA #### [facility] , Thyroid Stimulating Hormoneo n 03-16-2025 TSH Qn 2.99 m[IU]/L Normal 0.45-5.33 [facility] Comment on above: Result Comment: PERF ORMED BY: [place] [address] PATHOLOGIST INFORMATION ASSURANCE ANALYST LAKHWINDER MIR M.D. Performed By: #### T 4F, PTT, PT, CBC, CRP, ESR, ADDONUAPLUS, TSH3, CMP #### [facility] [address] [place] [address] [place] #### RA, CCP, THYGLOB, JO1, CARDIO GMA, RPR W RFX, CAVAZOS, [id number], ADNA, HISAB, CH50, SJOGRENS, B2 GLYPROT, MITOM2, LUPANTCOAG, C4, ANTIR, TPO, C3, SMAB, GIANNA #### [facility] , Ambulatory Visit Summaryon 0 03-14-2025 Ambulatory Visit Summary Ambulatory Visit Summary NOBLE CASTILLO :1985 Visit Date:03/14/2025 Ambulatory Visit Instructions Your Diagnosis Abdominal pain Heartburn Abdominal bloating Chronic diarrhea Your Care Team Attending Physician - Navi MACK, Lester Godoy Primary Care Physician - BUCK PEPPER This Is Your Medications List colestipol (Colestid 1 g Tab) Contact prescribing physician if questions or concerns acetaminophen (Tylenol) bacillus coagulans-inulin (Probiotic Formula (Bacillus Coagulans)) famotidine (famotidine 40 mg Tab) fremanezumab (Ajovy 225 mg/1.5 mL subcutaneous solution) lamotrigine (Lamictal 150 mg Tab) rizatriptan (rizatriptan 10 mg Dis Tab) sertraline (Zoloft) Procedures Performed Foot (12/01/2023), Cholecystectomy, Colonoscopy, Dilation and curettage, Ear, EGD - esophagogastroduodenoscopy, Hysterectomy, Laparoscope, Lump, Nasal sinus, Tonsillectomy, wisdom teeth. Discharge Vitals Heart Rate (Peripheral) 81 Respiratory Rate 14 Blood Pressure 117/64 Height 162 cm Height 64 in Weight 90.9 kg Weight 200.4 lb BMI 34.64 Medications What How Much When Why Instructions New colestipol (Colestid 1 g Tab) 2 Tablets By Mouth 2 times a day Abdominal pain Heartburn with a full glass of water Pickup at [facility]/pharmacy #[id number] Unchanged acetaminophen (Tylenol) See instructions Oral Contact prescribing physician if questions or concerns Unchanged bacillus coagulans-inulin (Probiotic Formula (Bacillus Coagulans)) 1 Capsules By Mouth Every day Contact prescribing physician if questions or concerns Unchanged famotidine (famotidine 40 mg Tab) By Mouth Once a day (at bedtime) Contact prescribing physician if questions or concerns Unchanged fremanezumab (Ajovy 225 mg/ 1.5 mL subcutaneous solution) Subcutaneous Once a month Contact prescribing physician if questions or concerns Unchanged lamotrigine (Lamictal 150 mg Tab) By Mouth 2 times a day Contact prescribing physician if questions or concerns Unchanged rizatriptan (rizatriptan 10 mg Dis Tab) 1 Tablets By Mouth Every day Contact prescribing physician if questions or concerns Unchanged sertraline (Zoloft) By Mouth Every day Contact prescribing physician if questions or concerns Pharmacy Information [facility]/pharmacy #[id number]: [address], [place] [phone] Allergies Adhesive Bandage (Unknown) Betadine (Unknown) codeine (Unknown) Problems Ongoing - Any problem that you are currently receiving treatment for. Abdominal bloating Chronic diarrhea Chronic GERD Depression Gastric erosion Heartburn Hypoglycemia Kidney stone Lower abdominal pain Migraine S/P cholecystectomy Patient Survey You may receive a survey via text or e-mail asking about your office visit. Please share your experience with us by completing your survey. We appreciate your feedback and thank you for choosing us for your care. Normal [facility] Gastroenterology Office/Clin ic Noteon 03-14-2025 Gastroenterology Office/Clinic Note Gastroenterology Office/Clinic Note Chief Complaint abd pain, heartburn, bloating HPI Staff Est- Patient is a(n) 39 year old female who presents today for a sick call with c/o abdominal pain and heartburn. Abdominal pain: Quality (sharp, dull): sharp/pressure Constant or comes or go: constant pretty much. location and radiation: epigastric severe bloating gas and belching Worse bad breath in the am. Heartburn: it is so bad that when she belches, acid comes up sore throat when she wakes up Taking protonix? was taking it for 10 months, but she was getting red rashes, hands swelled up, symptom mcdonald it helped her. she is taking famotidine 40 mg. she can not eat a lot, she has to eat small meals or else she will get really bad bloating, she has been taking food out of her diet to see what bothers her stomach the most. diarrhea, sometimes its black/yellow/oily. the only thing that sometimes helps is probiotics with digestive enzymes sour smell stings when she has a bowel movement. has tried ozempic in the past her gas and pain was better on that. Last visit w/Dr. Mcelroy: Assessment/Plan 1. Chronic diarrhea (K52.9: Noninfective gastroenteritis and colitis, unspecified) Ordered: C-Reactive Protein Calprotectin, Fecal Celiac Disease Comprehensive Clostridium Difficile PCR Enteric Panel by PCR IgA, Quant. O & P Exam, Routine Pancreatic Elastase, Fecal Thyroid Stimulating Hormone 2. S/P cholecystectomy (Z90.49: Acquired absence of other specified parts of digestive tract) 3. Chronic GERD (K21.9: Gastro-esophageal reflux disease without esophagitis) 4. Lower abdominal pain (R10.30: Lower abdominal pain, unspecified) 5. Gastric erosion (K25.9: Gastric ulcer, unspecified as acute or chronic, without hemorrhage or perforation) Orders: colesevelam, 1,875 mg = 3 tab(s), Oral, BID, # 540 tab(s), Refills(s) 0, Pharmacy: [facility]/pharmacy #[id number], 162, cm, 04/09/24 13:38:00 EDT, Height/Length [...] repeat EGD given history of gastric erosions EGD w/ Dr Wiggins 04/26/19: Impression Severe antral erosions, random biopsies obtained to rule out H. pylori Colonoscopy w/ Dr Wiggins 04/26/19: Impression: 1. Normal terminal ileum. 2. Normal colonic mucosa, random biopsies obtained from ascending colon and rectum - Repeat colonoscopy:: In 10 years Pathology: Diagnosis Comment (Verified) A. No H. pylori microorganisms identified with immunostain. Final Diagnosis (Verified) A: STOMACH, BIOPSY: ??? ANTRAL AND BODY MUCOSA CONSISTENT WITH MILD REACTIVE GASTROPATHY. B: RECTUM, BIOPSY: ??? COLONIC MUCOSA WITHIN NORMAL LIMITS. C: ASCENDING COLON, BIOPSY: ??? COLONIC MUCOSA WITHIN NORMAL LIMITS. [facility] 06/14/24 @ [facility]: IMPRESSION: 1. Normal swallowing function. 2. Episodes of gagging due to texture of pudding and when swallowing barium tablet. Patient describes this as frequently happening with food, brushing teeth, liquids, etc. No appreciable structural abnormality. Consider review of patient medications for possible side effect and consider ENT evaluation. Celiac Panel Antigliadin IgA: 7 (04/09/24) Antigliadin Ig (04/09/24) Endomysial Antibody IgA: Negative (04/09/24) IgA Quant: 286 (04/09/24) t-Transglutaminase IgA: <2 (04/09/24) t-Transglutaminase IgG: <2 (04/09/24) Stool Studies Calprotectin, Fecal: 29 (04/11/24) Campylobacter group: Not Detected (04/11/24) Norovirus GI/GII: Not Detected (04/11/24) Ova/Para Exam Rt: Final report (04/11/24) Result 1: Comment (04/11/24) Rotavirus A: Not Detected (04/11/24) Salmonella species: Not Detected (04/11/24) Shiga Tox Interp: NEGATIVE1 (04/11/24) Shiga Toxin 1: Not Detected (04/11/24) Shiga Toxin 2: Not Detected (04/11/24) Shigella species: Not Detected (04/11/24) Vibrio Group: Not Detected (04/11/24) Yersinia enterocolitica: Not Detected (04/11/24) Labs 03/08/25 WBC: 8.9 RBC COUNT: 4.88 HEMOGLOBINL 14.5 HEMATOCRIT: 42.1 MCV: 86 MCH: 29.7 MCHC: 34.4 RDW: 13.4 PLATELET: 276 MPV: 9.7 NEUTROPHILS %: 53.3 LYMPHOCYTES %: 40.5 MONOCYTES %: 5.1 EOSINOPHILS %: 0.7 BASOPHILS %: 0.4 NEUTROPHILS ABS: 4.7 LYMPHOCYTES ABS: 3.6 High MONOCYTES ABS: 0.5 EOSINOPHILS ABS: 0.1 BASOPHILS ABS: 0.0 SODIUM: 140 POTASSIUM: 3.5 CHLORIDE: 104 CARBON DIOXIDE: 23 ANION GAP: 13 BUN: 9 CREATININE: 0.69 GLUCOSE: 83 CALCIUM: 9.3 TOTAL PROTEIN: 7.2 ALBUMIN: 4.4 ALK PHOS: 86 AST: 18 ALT: 22 BILIRUBIN,TOTAL: 0.3 EGFR: >^90 Amylase: 46 Lipase: 51 History of Present Illness I have reviewed HPI staff note, most recent labs and im (more content not included)... Normal [facility] Comment on above: Result Comment: Elec tronically Signed By: Navi MACK, Lester Gerber\Date and Time Signed: 03/14/25 09:13 EDT AMYLASEon 03-08-2025 Amylase [Catalytic activity/Vol] 46 U/L Normal 28-100 [facility] Comment on above: Performed By: #### A MYL #### [facility] ([facility]) [address] [place] [address] VIR CBC WITH AUTO DIFFERENTIALon 03-08-2025 BASOPHILS ABSOLUTE COUNT (10*3/UL) BY AUTOMATED COUNT 0.0 10*3/uL Normal 0.0-0.2 [facility] Comment on above: Performed By: #### C BCA #### [facility] ([facility]) [address] [place] [address] VIR BASOPHILS RELATIVE PERCENT BY AUTOMATED COUNT 0.4 % [facility] Comment on above: Performed By: #### C BCA #### [facility] ([facility]) [address] [place] [address] VIR CELLAVISION DIFFERENTIAL TYPE AUTOMATED DIFFERENTIAL Normal [facility] Comment on above: Performed By: #### C BCA #### [facility] ([facility]) [address] [place] [address] VIR Eosinophils (Bld) [#/Vol] 0.1 10*3/uL Normal 0.0-0.4 [facility] Comment on above: Performed By: #### C BCA #### [facility] ([facility]) [address] [place] [address] VIR EOSINOPHILS RELATIVE PERCENT BY AUTOMATED COUNT 0.7 % Normal [facility] Comment on above: Performed By: #### C BCA #### [facility] ([facility]) [address] [place] [address] VIR Erythrocyte distribution width (RBC) [Ratio] 13.4 % Normal 11.5-15 [facility] Comment on above: Performed By: #### C BCA #### [facility] ([facility]) [address] [place] [address] VIR Hematocrit (Bld) [Volume fraction] 42.1 % Normal 35-47 [facility] Comment on above: Performed By: #### C BCA #### [facility] ([facility]) [address] [place] [address] VIR Hemoglobin (Bld) [Mass/Vol] 14.5 g/dL Normal 11.7-15.5 [facility] Comment on above: Performed By: #### C BCA #### [facility] ([facility]) [address] [facility] [address] [place] [address] VIR LYMPHOCYTES ABSOLUTE COUNT (10*3/UL) BY AUTOMATED COUNT 3.6 10*3/uL High 1.0-3.5 [facility] Comment on above: Performed By: #### C BCA #### [facility] ([facility]) [address] [place] [address] VIR LYMPHOCYTES RELATIVE PERCENT BY AUTOMATED COUNT 40.5 % Normal [facility] Comment on above: Performed By: #### C BCA #### [facility] ([facility]) [address] [place] [address] VIR MCH (RBC) [Entitic mass] 29.7 pg Normal 27-34 [facility] Comment on above: Performed By: #### C BCA #### [facility] ([facility]) [address] [place] [address] VIR MCHC (RBC) [Mass/Vol] 34.4 g/dL Normal 32-36 [facility] Comment on above: Performed By: #### C BCA #### [facility] ([facility]) [address] [place] [address] VIR MCV (RBC) [Entitic vol] 86 fL Normal 80-100 [facility] Comment on above: Performed By: #### C BCA #### [facility] ([facility]) [address] [place] [address] VIR MONOCYTES ABSOLUTE COUNT (10*3/UL) BY AUTOMATED COUNT 0.5 10*3/uL Normal 0.0-0.9 [facility] Comment on above: Performed By: #### C BCA #### [facility] ([facility]) [address] [place] [address] VIR MONOCYTES RELATIVE PERCENT BY AUTOMATED COUNT 5.1 % Normal [facility] Comment on above: Performed By: #### C BCA #### [facility] ([facility]) [address] [place] [address] VIR NEUTROPHILS ABSOLUTE COUNT BY AUTOMATED COUNT 4.7 10*3/uL Normal 1.5-6.6 [facility] Comment on above: Performed By: #### C BCA #### [facility] ([facility]) [address] [place] [address] VIR NEUTROPHILS RELATIVE PERCENT BY AUTOMATED COUNT 53.3 % Normal [facility] Comment on above: Performed By: #### C BCA #### [facility] ([facility]) [address] [place] [address] VIR Platelet mean volume (Bld) [Entitic vol] 9.7 fL Normal 7-12 [facility] Comment on above: Performed By: #### C BCA #### [facility] ([facility]) [address] [place] [address] VIR Platelets (Bld) [#/Vol] 276 10*3/uL Normal 150-450 [facility] Comment on above: Performed By: #### C BCA #### [facility] ([facility]) [address] [place] [address] VIR RBC COUNT 4.88 X10E12/L Normal 3.8-5.2 [facility] Comment on above: Performed By: #### C BCA #### [facility] ([facility]) [address] [place] [address] VIR WBC (Bld) [#/Vol] 8.9 10*3/uL Normal 4-11 [facility] Comment on above: Performed By: #### C BCA #### [facility] ([facility]) [address] [place] [address] VIR COMPREHENSIVE METABOLIC PANE Angel 03-08-2025 Albumin [Mass/Vol] 4.4 g/dL Normal 3.2-5.3 [facility] Comment on above: Performed By: #### C MP #### [facility] ([facility]) [address] [place] [address] VIR ALP [Catalytic activity/Vol] 86 U/L Normal 39-130 [facility] Comment on above: Performed By: #### C MP #### [facility] ([facility]) [address] [place] [address] VIR ALT [Catalytic activity/Vol] 22 U/L Normal <=31 [facility] Comment on above: Performed By: #### C MP #### [facility] ([facility]) [address] [place] [address] VIR Anion gap [Moles/Vol] 13 mmol/L Normal 5-15 [facility] Comment on above: Performed By: #### C MP #### [facility] ([facility]) [address] [place] [address] VIR AST [Catalytic activity/Vol] 18 U/L Normal <=41 [facility] Comment on above: Performed By: #### C MP #### [facility] ([facility]) [address] [place] [address] VIR Bilirubin [Mass/Vol] 0.3 mg/dL Normal 0.3-1.2 [facility] Comment on above: Performed By: #### C MP #### [facility] ([facility]) [address] [place] [address] VIR Calcium [Mass/Vol] 9.3 mg/dL Normal 8.5-10.5 [facility] Comment on above: Performed By: #### C MP #### [facility] ([facility]) [address] [place] [address] VIR Chloride [Moles/Vol] 104 mmol/L Normal 98-109 [facility] Comment on above: Performed By: #### C MP #### [facility] ([facility]) [address] [place] [address] VIR CO2 [Moles/Vol] 23 mmol/L Normal 22-32 [facility] Comment on above: Performed By: #### C MP #### [facility] ([facility]) [address] [place] [address] VIR Creatinine [Mass/Vol] 0.69 mg/dL Normal 0.40-1.00 [facility] Comment on above: Result Comment: METH OD TRACEABLE TO IDMS STANDARD Performed By: #### C MP #### [facility] ([facility]) [address] [place] [address] VIR EGFR (CKD-EPI) NON-RACE DEPENDENT >^90 Normal >=60 [facility] Comment on above: Result Comment: Repo rted eGFR is based on the CKD-EPI 2020 equation that does not use a race coefficient. Performed By: #### C MP #### [facility] ([facility]) [address] [place] [address] VIR Glucose [Mass/Vol] 83 mg/dL Normal 65-99 [facility] Comment on above: Performed By: #### C MP #### [facility] ([facility]) [address] [place] [address] VIR Potassium [Moles/Vol] 3.5 mmol/L Normal 3.5-5.0 [facility] Comment on above: Performed By: #### C MP #### [facility] ([facility]) [address] [place] [address] VIR Protein [Mass/Vol] 7.2 g/dL Normal 6.0-8.0 [facility] Comment on above: Performed By: #### C MP #### [facility] ([facility]) [address] [place] [address] VIR Sodium [Moles/Vol] 140 mmol/L Normal 134-146 [facility] Comment on above: Performed By: #### C MP #### [facility] ([facility]) [address] [place] [address] VIR Urea nitrogen [Mass/Vol] 9 mg/dL Normal 5-23 [facility] Comment on above: Performed By: #### C MP #### [facility] ([facility]) [address] [place] [address] VIR LIPASEon 03-08-2025 Lipase [Catalytic activity/Vol] 51 U/L Normal 11-82 [facility] Comment on above: Performed By: #### L IPA #### [facility] ([facility]) [address] [place] [address] VIR TSH WITH REFLEXon 03-08-2025 TSH 2.65 uIU/mL Normal 0.49-4.67 [facility] Comment on above: Performed By: #### T SHR #### [facility] ([facility]) [address] [place] [address] VIR IGP,APTIMA HPV,AGE GDLNon AGE GDLN ACOG TESTING Note . [facility] Comment on above: TESTS RESULT FLAG UN ITS REF RANGE LAB Clinician Provided Cytology Information Source.............Vagina No. of containers..01 ThinPrep Vial Age Algo ACOG [facility]... 31 FLAG LEGEND: L-Low Normal,H-High Normal,LL-Alert Low,HH-Alert High <-Panic Low,>-Panic High,A-Abnormal,AA-Critical Abnormal Performed at: 01 =[address] [address] Fay Nava MD, HPV APTIMA Negative Negative [facility] Comment on above: This nucleic acid am plification test detects fourteen high- risk HPV types (16,18,31,33,35,39,45,51,52,56,58,59,66,68) without differentiation. Performed at: =[address] [id number] Finishing Machine Tender: Fay Nava MD, Phone: [phone] Performed at: [address] [id number] Finishing Machine Tender: Fay Nava MD, Phone: [phone] IGP, APTIMA HPV, RFX 16/18,45 Note . [facility] Comment on above: TESTS RESULT FLAG UN ITS REF RANGE LAB DIAGNOSIS: 02 NEGATIVE FOR INTRAEPITHELIAL LESION OR MALIGNANCY. Specimen adequacy: 02 Satisfactory for evaluation. Performed by: [employer]) . 02 Note: Note 02 The Pap [...] High,A-Abnormal,AA-Critical Abnormal Performed at: 02 [address] [facility] [address] [address] Fay Nava MD, SPATULA-ALONE VAGINA [facility] 12-26-2024 [facility] Office Visit (TIMOTHY ) NOBLE CASTILLO ([id number]) 1985 F Date Time Provider Department 12/26/24 [...] , HBA1C , VITD25 in the last 12130 hours. X-ray weight bearing RIGHT FOOT with calcaneus axial MRI reviewed from outside / non [facility] facility ASSESSMENT: Z98.890 History of foot surgery [...] - Fully Assessed Reason for Visit: New [392121] Pain [78] Primary Visit Diagnosis:History of foot surgery [Z98.890] Other Visit Diagnoses:Peroneal tendinitis of right lower extremity [M76.71] Orthopedic hardware present [Z97.8] Order(s):XR CALCANEUS 2V AXIAL/LAT RIGHT [[id number]] Order #: [id number] FUTURE XR FOOT GENERAL 3V AP/LAT/OBL RIGHT [[id number]] Order #: [id number] FUTURE Prescriptions as of 12/26/2024 - lamoTRIgine (LAMICTAL) (more content not included)... Normal [facility] No Panel Informationon 12-26 IMPRESSION: Postoperative and degenerative changes. Spine Surgeon: ZEINA Transcribe Date/Time: Dec 26 2024 6:52P Dictated by : YAHIR GOLDMAN MD This examination was interpreted and the report reviewed and electronically signed by: YAHIR GOLDMAN MD on Dec 26 2024 6:53PM EST DIVISION OF RADIOLOGY Radiology Study observation (narrative) [facility] No Panel InformationOrdered By: Ccf Provider on 12-26-2024 [facility] XR CALCANEUS 2V AXIAL/LAT RT on 12-26-2024 [...] AP/LAT/OBL RT HISTORY: rt heel pain (accession [id number]), rt foot pain (accession [id number]) History of foot surgery . TECHNIQUE: XR CALCANEUS 2V AXIAL/LAT RT, XR FOOT 3V AP/LAT/OBL RT Laterality: RIGHT Number of different views (projections): 2 (accession [id number]), 3 (accession [id number]) M: XB_1 COMPARISON: RESULT: And partial appearing bony ankylosis. Osteotomy of the medial cuneiform with intact appearing surgical hardware. Mild first MTP degenerative changes. No acute fracture or dislocation. There are no bony erosions. IMPRESSION: Postoperative and degenerative changes. Spine Surgeon: PSCB Transcribe Date/Time: Dec 26 2024 6:52P Dictated by : YAHIR GOLDMAN MD This examination was interpreted and the report reviewed and electronically signed by: YAHIR GOLDMAN MD on Dec 26 2024 6:53PM EST [id number] Normal [facility] XR Calcaneus - right 2 Views on 12-26-2024 * * *Final Report* * * DATE OF EXAM: Dec 26 2024 3:59PM LZX 5307 - XR CALCANEUS 2V AXIAL/LAT RT / PROCEDURE REASON: History of foot surgery * * * * Physician Interpretation * * * * EXAMINATION: XR CALCANEUS 2V AXIAL/LAT RT, XR FOOT 3V AP/LAT/OBL RT HISTORY: rt heel pain (accession [id number]), rt foot pain (accession [id number]) History of foot surgery . TECHNIQUE: XR CALCANEUS 2V AXIAL/LAT RT, XR FOOT 3V AP/LAT/OBL RT Laterality: RIGHT Number of different views (projections): 2 (accession [id number]), 3 (accession [id number]) M: XB_1 COMPARISON: RESULT: And partial appearing bony ankylosis. Osteotomy of the medial cuneiform with intact appearing surgical hardware. Mild first MTP degenerative changes. No acute fracture or dislocation. There are no bony erosions. DIVISION OF RADIOLOGY Provider, [facility] - 12/26/2024 * * *Final Report* * * DATE OF EXAM: Dec 26 2024 3:59PM LZX 5307 - XR CALCANEUS 2V AXIAL/LAT RT / PROCEDURE REASON: History of foot surgery * * * * Physician Interpretation * * * * EXAMINATION: XR CALCANEUS 2V AXIAL/LAT RT, XR FOOT 3V AP/LAT/OBL RT HISTORY: rt heel pain (accession [id number]), rt foot pain (accession [id number]) History of foot surgery . TECHNIQUE: XR CALCANEUS 2V AXIAL/LAT RT, XR FOOT 3V AP/LAT/OBL RT Laterality: RIGHT Number of different views (projections): 2 (accession [id number]), 3 (accession [id number]) M: XB_1 COMPARISON: RESULT: And partial appearing bony ankylosis. Osteotomy of the medial cuneiform with intact appearing surgical hardware. Mild first MTP degenerative changes. No acute fracture or dislocation. There are no bony erosions. IMPRESSION IMPRESSION: Postoperative and degenerative changes. [facility] Transcribe Date/Time: Dec 26 2024 6:52P Dictated by : YAHIR GOLDMAN MD This examination was interpreted and the report reviewed and electronically signed by: YAHIR GOLDMAN MD on Dec 26 2024 6:53PM [facility] XR FOOT 3V AP/LAT/OBL RTon 0 [...] AP/LAT/OBL RT HISTORY: rt heel pain (accession [id number]), rt foot pain (accession [id number]) History of foot surgery . TECHNIQUE: XR CALCANEUS 2V AXIAL/LAT RT, XR FOOT 3V AP/LAT/OBL RT Laterality: RIGHT Number of different views (projections): 2 (accession [id number]), 3 (accession [id number]) M: XB_1 COMPARISON: RESULT: And partial appearing bony ankylosis. Osteotomy of the medial cuneiform with intact appearing surgical hardware. Mild first MTP degenerative changes. No acute fracture or dislocation. There are no bony erosions. IMPRESSION: Postoperative and degenerative changes. Spine Surgeon: ZEINA Transcribe Date/Time: Dec 26 2024 6:52P Dictated by : YAHIR GOLDMAN MD This examination was interpreted and the report reviewed and electronically signed by: YAHIR GOLDMAN MD on Dec 26 2024 6:53PM EST [id number] Normal [facility] XR Foot - right AP and Later al and obliqueon 12-26-2024 * * *Final Report* * * DATE OF EXAM: Dec 26 2024 3:59PM LZX 5337 - XR FOOT 3V AP/LAT/OBL RT / PROCEDURE REASON: multiple diagnoses * * * * Physician Interpretation * * * * EXAMINATION: XR CALCANEUS 2V AXIAL/LAT RT, XR FOOT 3V AP/LAT/OBL RT HISTORY: rt heel pain (accession [id number]), rt foot pain (accession [id number]) History of foot surgery . TECHNIQUE: XR CALCANEUS 2V AXIAL/LAT RT, XR FOOT 3V AP/LAT/OBL RT Laterality: RIGHT Number of different views (projections): 2 (accession [id number]), 3 (accession [id number]) M: XB_1 COMPARISON: RESULT: And partial appearing bony ankylosis. Osteotomy of the medial cuneiform with intact appearing surgical hardware. Mild first MTP degenerative changes. No acute fracture or dislocation. There are no bony erosions. DIVISION OF RADIOLOGY Provider, [facility] - 12/26/2024 * * *Final Report* * * DATE OF EXAM: Dec 26 2024 3:59PM LZX 5337 - XR FOOT 3V AP/LAT/OBL RT / PROCEDURE REASON: multiple diagnoses * * * * Physician Interpretation * * * * EXAMINATION: XR CALCANEUS 2V AXIAL/LAT RT, XR FOOT 3V AP/LAT/OBL RT HISTORY: rt heel pain (accession [id number]), rt foot pain (accession [id number]) History of foot surgery . TECHNIQUE: XR CALCANEUS 2V AXIAL/LAT RT, XR FOOT 3V AP/LAT/OBL RT Laterality: RIGHT Number of different views (projections): 2 (accession [id number]), 3 (accession [id number]) M: XB_1 COMPARISON: RESULT: And partial appearing bony ankylosis. Osteotomy of the medial cuneiform with intact appearing surgical hardware. Mild first MTP degenerative changes. No acute fracture or dislocation. There are no bony erosions. IMPRESSION IMPRESSION: Postoperative and degenerative changes. [facility] Transcribe Date/Time: Dec 26 2024 6:52P Dictated by : YAHIR GOLDMAN MD This examination was interpreted and the report reviewed and electronically signed by: YAHIR GOLDMAN MD on Dec 26 2024 6:53PM [facility] Coding Summary.on 04-21-2024 Coding Summary. HTHWZmsk70EKk1zCi+PG hlYWQ+P P1HZXTfL31xrQRglM2sP1GMFAqQ GcyxBMHCEHyOGcDkxmBqWJ9jfPF jZXJu IC8+YW8wYQRiTfimcJQxc2A9pMS 0J33xlx7pGVjhjNE1JRJiYtLhdv amk3vquCf6DMolKocfOqXz BVHeqP49CNY6cR35Wa73cDQkxFW ln1lxdIs0KwTcPXAnVRN4uDbwXS mng5CnQEObN03kxKBtq7E9 EIDbtVflhBHmYaSnnCC4jZ3zMQm nujktw8yqmaocRoz1as99sZQqg1 T4hFS9P3AmfaQ7MQPhdWBp CmfmsWHZfU4bafxvz0iraueqUfG lQKQbUVo4ROe3IYMnlAayCqYcSP 04TFL1NNEyvtRtV1ZuQUQy dCppOaQ4w1T6Yt0QQ9HJVlfyI6P NTUFSWTwvdGQ+XV11nq59W2ZuUw bfSjd4UTEtYRC9xRH3oM2t EFNuKNywg9I1bTO3Q4WhywCtmc0 kr0bhYKDnWTqgX66cnXJkj9Z7LC ReqNX0XSXgdVghEdFzsR66 Oyc+VEUmmCghu7ClQwiqh4kmi9t qjIi8FiovYKBlgzEitVteJSI8g5 NlHy6qPYKexFX5vTI0nR2q UmCkMwF3HNnqR043YrUtlQKaRln vT84iR5QiqIW+PQAvQmw2IZPwvB scVX9wE8IcCRIjoflicXZv vKxbZM2mLSGxdlatZGQcbS4vAIL eA9y4VaSfThC5UEwjA3BbCHHibj aaVq06hQ9lGfIfJaV7SChh B2YigaG9TDYzkCDjMHcfXBE8A66 td8Z2EEAoIPIkLIW5oGG7fH2utI lnbjogbGVmdDsgdmVydGlj FJnwKYzsP426ZZOxpNwyVrBrXDy uZyBEYXRlOiAgMDYvMjIvMjAyND wvdGQ+BDSlXQE6rPkzVBYx pCCdBHliBp9wbWbvmFrdXF2zCWH gsmnfMGOkfW4xFXSreGLkyJsmWT 6fBYGlyzysf238YgBxWIE7 LVPlwYEvO2AksV6vOuFoDNMmBNL pJ0StxGNnYBfsN608JGlnFaU9OM WokeMiD9FmGEIzcTbpXgD3 j5I0Lv4Ot2OhfosvD6YlaNUaUaY uZfpsRRx9H2ThJmqwnLQ+PC90YW KyNF68LDj9NWW4eMdgEZfu LFVyZ8VzdR7rAzWrYLTqGWZoZrm +PHRhYmxlIHdpZHRoPScxMDAlJy DhyLleDA9xCs3hUADfMGQc nCfdkSLhWcQbd2nxFLOhPMflTP0 ihUexL0XauHG3EBJvq4y0Fd77M1 4eP1VpuAS+TJPsnAA9sUI2 gO2dQnShGhW2CYriK400AxLopKN aBhlcz9thw1swyGh2CuO9EGQtab SdiOruXEP4n1FbTt75B27g IHdpZHRoPSIxNSUiIHZhbGlnbj0 wyB1fMk0+PNXqkUK7dOH9xU6dCg EhFfB0NJzhI480MmEzdKAm Lbihq2yjb2bjpBk1HeEdSWUmbaQ hpZnyKWC5h5YpGt74R4YjjTpls2 RiDgt2cb00dGSpr1M6rAE2 J2AsRWKngevvtZGcnKuuXC5vTNO ulumaEKGqhY8wZKYmI1y0IgOsVz X6IBlxY1XqkpW9BFKflMWh NGGxyZMKhQ2gnttzk7dqoflqWqT iNRRpUOj0YXm7FQLbdJomXwGqFP N8GoN4HOG5iBYzsP5ylHzd osmtrO7mSfr+IWI3hCBlqQBFLS0 lOjwvdGQ+GPBdBUE9eOpyQQfdHR GflX8uPPLeO3g4OfByWfT6 DYdhZ7OuviJ6JHQhtVFlEJUprVY XcJ3punnkd9ingeysUmJgZOBzOF p2AYx5JQZbbYnmNrPmQED6 PgD8MNH4cILlhK8oqRljeuqjvY2 wOyc+ZiupgEteICD8BDb2Z7WxGp e9JRMgiHknVS8maAHlZRdq Eu6riYcqlEiqDM3nWXSufcpqh79 5MuOvs4zvCYZuyJCbNBljTZY6I7 3gh1P8OJXgHAZxUIO0mXJ7 jE5myCcfzlhbbJVjlAquwwIceMh zLBkiUXdlM742UHPpvWvnIkYoUH v4Y1LjNnc3HJHkkBmuZN4b eSStEUmvGs7sbKxolUnpLR8fKKW txyryc259BjYza7toCRCfkPYiBE ixNFB6X28zl4T4QIEhLQAl MJB3qHY3iE8yeMgjjffuwLNbzWh yjyEryHjqZWczVNzbH493AJClmJ jpUiVvzNf7B2EyNep6KSCb rFxkXP5paOLrFNuxFj1qyHesiAp sFO7ySCMwusjso237UrFfn1xvLT EnaKYiTNogBMI9C79hw4H2 GBVpZATaZTO8lKQ6kX5daSmjbia gbGVmdDsgdmVydGljYWwtYWxpZ2 46IHRvcDsnPlBhdGllbnQg CTrgWKx4Z2JnOvpbjNR+FO73TLB rOF29kESphKVqn2mntOk7UiUtZU SjHYH5pQcpIWouy4TgGDMd G37gqYVnh7V7HALetGekdRAtRgQ prRT6jN0fPUhshjtfb5bwayaqBm isy9asmd23tC45C00sQNna FBWtFEDvRTPhYXGcyDvibg4fqK1 wIi8+OMVhbKA7iOU2qH3cPXWuSq V1MUqfS573KbUimRDqLywk t7loy7ytmNk4XqE2KZBvgxLncIs kLAJ2y1CyWy60J69yVCxbMWHuCK LhMPKfOIJvwByqek3thX4r Ii8+VVWodTG0kFA6hY1gGaTgTrN 5VCceY032HcJnyUDeJjzqR87dB3 JvdXA+DIInCua6FYKdaSrw AO4peFRsQHseZu3nWJH1TbGmNsC kWUerP4VuDDFosbjfbjwwuYN6IF YqAVHuhP45Ro1pyMdiCIKw uJVTiO1luonih5mhwkrzNoTaAZU tYJd1MHh5UAXmsEyfSiAbCIL6Dm I8SND8iXVzrB1qlUnwqiwp vW0yS3MpONYhhssmQn24eH5nZyX mHyN6CReeBxi+NV6QZhzdMQoHUD ICFX6QRU31TW03fENat1S9 wUQ4W4SxHMOwpckgbfhqcIL2UVL fBWXtgW92vVGwZXebEd6ro8J8r9 12NOGmTNYlfJ45Fg4uzXoe ZZBnmIMMaE9punawe0jdahejYiM wABLaUXz9RMo9NACdiKwnNoMyUC S0JdS1RJC7pAYxcE7hqUjo bnmacW5uHfb+EVKaSSRoHLw0Zqx vdGQ+GQOjHSK2iLvfKMzgJPJrhX 9lYUDoB7s4PaXdDwP8WSfk G3AcGJUxuvvgQq89fX0bFqAkOaB 6EEcsQ5SsbqN4LHPrxYNlOMxbDV V3C53gs8L3BUStXTCvKEB4 gQH8mU6ehAaiduxcpXWxsGiqtfE dzHnbRKkiKXhkD276MUPpiApjUu X2ZWllYKMhYF18VF79wBSg f9U2gBL8A1EjBTMrflwvvpjtdIX 8QSMcZPMbdH00bKTrHQuyDy0oi7 K6r223WYUwZGVzdF49Xg3g iDvqBTYqfECAbM4mrndkr0lbmgk oEoDqXJJpRDk9OCe3ZHFrbZxgVo KmALD9ZjU5WNQ4qQFeuN2n lCwrybsxoQ8hFeu+RmVtYWxlPC9 1AI49mIVuc3Z8dHX9J6FdLCGpcm ptchcayBC9VWTlOENtrW05 kTOrVJgfFa6mb4D3j498YEUaJVX suY53Hh6fpFaiSNKjaRKHsW2whl kjx5yudkmrIwJyFQDqWLf8 BIl5ZGTwmOwmYpHvYFB7QgT0YSU 8pFQnvD4vqXmonwozeP6yCwk+TG NnYMZwe1Uur1XbFA78XR78 A7WhJgjzcICsqFX+PHRhYmxlIHd tOMLzIEipDCOcYeBapWlaFN5bYr 9yZGVyLWNvbGxhcHNlOiBj k1fxURKaXBdmDV3gkDidG7GlcVI 4ZDXar9o9Iy79I73aU6GrgHC+PG HedOC2mFK5gP7uNzMtEtD2 JCrtF015OaDekLMcSxfol4mzg5p pzEa7HzEpWVTcbzFgkHytDCY1e3 RrYr50R31yXNrgYAOtUTEk VFLpRIDzfCopii4dtA1nEt4+PGN ygQY9kNR2gJ9kAaUxMhK4DClvL5 74WkMhbKAePudkW65gS8Xy dXA+XSTmUje4LDShdBpfFT0nuLC oOFqoVc8qOUH2UgBrFiLtOSyeP7 ZaZPAysvgbdugvsRY6DDRu ZKLqgP92Nu8pyCzuRv4fTXQaOGT 6FJFztOFdZ9UivJ4jIhCuBUEgLY MoO4QyeVJiXUurH822NUmb OeS2YYQzajLyW6LjKHRsrTsiOvB 7u8Q6Nn8UgJhrwRIcBV4xLlUzDE u2T7AmLhi0MKIwdOlnWI8l iVKqETjgVl2dkHuidQdmMQ6vZQY bvkzon053EhMha2riXALmoSCtNY lmBYP9E33ty8B2GCYwNKUa UYJ2eBO6qB6ktFasyroskHPenIt reqVldNtsUVunZUvlH717OFXmvO fbAlNPBka0K7NdDwk5JYFy tByqHO7uuZQbLTqqDq7inDnvbGy dJE8uAJWfejcpu636NsVgt1xsEZ DywBRtEXteQAE1T63uf8O5 TEYgAWKoDPU2xEC1wW2zoGcvpml gbGVmdDsgdmVydGljYWwtYWxpZ2 91ZQQohOykRr5CYla3U6Bz Pde9OVBujRlkUZ1qiAYsUNreIq9 knOkfmZuwZN7gRDMlalyai119Ad Ivu6uuXSZerXSoWMmrXRA9 F66ft7K3AJMxMEYtGHT5pLI3oG4 hbGlnbjogbGVmdDsgdmVydGljYW ztPKspQ094VBVzmUzjOqLs eWVyOjwvdGQ+AW78vv40F1AbGjj lVzh0QCXoTKP6qYP9hP8mFESaOD qek8N9yLQ4W7TcvwLyyk1v n0ggMSEpEKzwM (more content not included)... Normal [facility] Calprotectin, Fecalon 2023 Calprotectin (Stl) [Mass/Mass] 29 mcg/gm Invalid Interpretation Code 0-120 [facility] Comment on above: Result Comment: Conc entration Interpretation Follow-Up < 5 - 50 ug/g Normal None >50 -120 ug/g Borderline Re-evaluate in 4-6 weeks >120 ug/g Abnormal Repeat as clinically indicated Performed at: [address] [id number] MD Parmjit Connor Performed By: #### 1 [id number] ####[facility] [address] [place] [address] O & P EXAM, ROUTINE, REFLEXo n 04-17-2024 Ova and parasites identified Concentration Nom (Stl) Comment Invalid Interpretation Code [facility] Comment on above: Result Comment: No o va, cysts, or parasites seen. One negative specimen does not rule out the possibility of a parasitic infection. Performed at: [address] [id number] PhD Pancho Higgins Performed By: #### 3 [id number] #### [facility] [address] [id number] O & P Exam, Routineon 2023 Ova and parasites identified LM Nom (Unsp spec) Final report Invalid Interpretation Code [facility] Comment on above: Result Comment: Thes e results were obtained using wet preparation(s) and trichrome stained smear. This test does not include testing for Cryptosporidium parvum, Cyclospora, or Microsporidia. Performed at: [address] [id number] PhD Pancho Higgins Performed By: #### 1 [id number] #### [facility] [address] [place] [address] Pancreatic Elastase, Fecalon 04-17-2024 Elastase.pancreatic (Stl) [Mass/Mass] >800 Invalid Interpretation Code >200 [facility] Comment on above: Result Comment: Florecita re Pancreatic Insufficiency: <100 Moderate Pancreatic Insufficiency: 100 - 200 Normal: >200 Performed at: [facility] [address] [place], [place] [id number] MD Parmjit Connor Performed By: #### 1 [id number] #### [facility] [address] [place] [address] Enteric Panel by PCRon 04-12 C. coli+jejuni+upsalien sis DNA MARYELLEN+non-probe Ql (Stl) Not detected Normal [facility] Comment on above: Result Comment: Test ing [...] nulcleic acid test. Performed By: #### 1 [id number] #### [facility] [address] [place] [address] E. coli stx1+stx2 genes MARYELLEN+non-probe Ql (Stl) Negative Normal [facility] Comment on above: Performed By: #### 1 [id number] #### [facility] [address] [place] [address] Enteric Panel by PCR Negative Normal [facility] Enteric Panel Intrl QC Pass Normal [facility] Comment on above: Result Comment: Test ing [...] 1 and 2. Performed By: #### 1 [id number] #### [facility] [address] [place] [address] Norovirus genogroup I+II RNA MARYELLEN+non-probe Ql (Stl) Not detected Normal [facility] Comment on above: Performed By: #### 1 [id number] #### [facility] [address] [place] [address] Rotavirus A RNA MARYELLEN+non-probe Ql (Stl) Not detected Normal [facility] Comment on above: Performed By: #### 1 [id number] #### [facility] [address] [place] [address] S. enterica+bongori DNA MARYELLEN+non-probe Ql (Stl) Not detected Normal [facility] Comment on above: Result Comment: This test result should be correlated with clinical presentations and medical history by a healthcare provider to determine its clinical significance. Performed By: #### 1 [id number] #### [facility] [address] [place] [address] Shigella species+EIEC invasion plasmid antigen H ipaH gene MARYELLEN+non-probe Ql (Stl) Not detected Normal [facility] Comment on above: Performed By: #### 1 [id number] #### [facility] [address] [place] [address] V. cholerae+parahaemoly ticus+vulnificus DNA MARYELLEN+non-probe Ql (Stl) Not detected Normal [facility] Comment on above: Performed By: #### 1 [id number] #### [facility] [address] [place] [address] Y. enterocolitica DNA MARYELLEN+non-probe Ql (Stl) Not detected Normal [facility] Comment on above: Performed By: #### 1 [id number] #### [facility] [address] [place] [address] CDiff PCRon 04-11-2024 C. difficile toxin A+B Ql (Stl) YES Normal [facility] Comment on above: Performed By: #### 3 [id number] #### [facility] [address] [place] [address] CDiff PCR Unable to perform te st due to consistency of stool. C. Difficile testing will only be performed on diarrheal (unformed) stool unless ileus due to C. difficile is expected. Reference: Clinical Practice Guidelines for Clostridium difficile Infection in Adults, Infection and Hospital Epidemiology February 2010, Vol 31, No 5. Normal [facility] Celiac Disease Comprehensive on 04-11-2024 Endomysium IgA Ql (S) Negative Invalid Interpretation Code Negative [facility] Comment on above: Performed By: #### 1 [id number] #### [facility] [address] [place] [address] Gliadin peptide IgA Qn (S) 7 unit(s) Invalid Interpretation Code 0-19 [facility] Comment on above: Result Comment: Nega tive 0 - 19 Weak Positive 20 - 30 Moderate to Strong Positive >30 Performed By: #### 1 [id number] #### [facility] [address] [place] [address] Gliadin peptide IgG Qn (S) 2 unit(s) Invalid Interpretation Code 0-19 [facility] Comment on above: Result Comment: Nega tive 0 - 19 Weak Positive 20 - 30 Moderate to Strong Positive >30 Performed By: #### 1 [id number] #### [facility] [address] [place] [address] IgA [Mass/Vol] 286 mg/dL Invalid Interpretation Code 87-352 [facility] [facility] Comment on above: Result Comment: Perf ormed at: [facility] [address] [id number] PhD Pancho Higgins Performed By: #### 1 [id number] #### [facility] [address] [place] [address] tTG IgA Qn (S) <2 Invalid Interpretation Code 0-3 [facility] Comment on above: Result Comment: Nega tive 0 - 3 Weak Positive 4 - 10 Positive >10 Tissue Transglutaminase (tTG) has been identified as the endomysial antigen. Studies have demonstr- ated that endomysial IgA antibodies have over 99% specificity for gluten sensitive enteropathy. Performed By: #### 1 [id number] #### [facility] [address] [place] [address] tTG IgG Qn (S) <2 Invalid Interpretation Code 0-5 [facility] Comment on above: Result Comment: Nega tive 0 - 5 Weak Positive 6 - 9 Positive >9 Performed By: #### 1 [id number] #### [facility] [address] [place] [address] CHEMISTRYOrdered By: SYSTEM SYSTEM on 04-09-2024 CRP [Mass/Vol] 1.3 mg/dL Normal <=1.9mg/dL Remisol Ch em TSH Qn 3.27 m[IU]/L Normal 0.34 - 5.60 mcIU/mL Remisol Chem CRPon 04-09-2024 CRP [Mass/Vol] 1.3 mg/dL Normal <=1.9 [facility] Comment on above: Performed By: #### 2 [id number] #### [facility] [address] [place] [address] CT ANKLE RT WO CONon 023 CT [...] technique. FINDINGS: BONES: Joint space narrowing with [id number]-[id number] articulation involving the medial aspect of the talocalcaneal joint. SOFT TISSUES: Negative. No visible soft tissue swelling. EFFUSION: None visible. OTHER: Negative. IMPRESSION: 1. Pes planus. 2. Durn-im-eyfb articulation between the articular surfaces of the medial talocalcaneal joint. 3. Uniform, normal spacing of the tibiotalar joint. Electronically authenticated by: RAFAEL COATS Date: 2023-02-02 09:25 Normal [facility] CHEMISTRYOrdered By: SYSTEM SYSTEM on 01-17-2023 25-hydroxyvitamin D3 [Mass/Vol] 30.1 ng/mL Normal 30.0 - 100.0 ng/mL [facility] Remisol Albumin [Mass/Vol] 4.3 g/dL Normal 3.3 - 5.0 gm/dL [facility] Remisol Albumin/Globulin [Mass ratio] 1.4 {ratio} Normal 1.1 - 2.2 [facility] Remisol ALP [Catalytic activity/Vol] 84 [iU]/d Normal 21 - 98 Int._Unit/ L [facility] Remisol ALT No additional P-5'-P [Catalytic activity/Vol] 20 [iU]/d Normal 6 - 46 Int._Unit/ L [facility] Remisol Anion gap [Moles/Vol] 12 mmol/L Normal 6 - 16 mEq/L [facility] Remisol AST [Catalytic activity/Vol] 15 [iU]/d Normal 5 - 43 Int._Unit/ L [facility] Remisol Bilirubin [Mass/Vol] 0.6 mg/dL Normal [...] T4 [Mass/Vol] 1.02 ng/dL Normal 0.58 - 1.64 ng/dL [facility] Remisol GFR/1.73 sq M.predicted among blacks MDRD (S/P/Bld) [Vol rate/Area] mL/min/1.73 m2 Normal >=59mL/min /1.73 m2 [facility] Chem S GFR/1.73 sq M.predicted among non-blacks MDRD (S/P/Bld) [Vol rate/Area] mL/min/1.73 m2 Normal >=59mL/min /1.73 m2 [facility] Chem S Globulin (S) [Mass/Vol] [...] High 4.0 - 11.0 E9/L [facility] HemeAutoSS ER URINE PROFILEon 2 Bilirubin Ql (U) Negative Normal NEGATIVE [facility] Comment on above: Performed By: #### E RUR #### [facility] [address] [place] [address] Dr. Phong Thayer Clarity (U) CLEAR Normal CLEAR [facility] Comment on above: Performed By: #### E RUR #### [facility] [address] [place] [address] Dr. Phong Thayer Color (U) LT. YELLOW Normal YELLOW [facility] Comment on above: Performed By: #### E RUR #### [facility] [address] [place] [address] Dr. Phong MONTILLA A micrscopic examina tion will be performed if indicated. Normal [facility] Comment on above: Performed By: #### E RUR #### [facility] [address] [place] [address] Dr. Phong Thayer Glucose Ql (U) Negative Normal NEGATIVE [facility] Comment on above: Performed By: #### E RUR #### [facility] [address] [place] [address] Dr. Phong Thayer Hemoglobin Ql (U) Negative Normal NEGATIVE [facility] [place] Comment on above: Performed By: #### E RUR #### [facility] [address] [place] [address] Dr. Phong Thayer Ketones Ql (U) Negative Normal NEGATIVE [facility] Comment on above: Performed By: #### E RUR #### [facility] [address] [place] [address] Dr. Phong Thayer LEUKOCYTES Negative Normal NEGATIVE [facility] Comment on above: Performed By: #### E RUR #### [facility] [address] [place] [address] Dr. Phong Thayer Nitrite Ql (U) Negative Normal NEGATIVE [facility] Comment on above: Performed By: #### E RUR #### [facility] [address] [place] [address] Dr. Phong Thayer pH (U) 6.5 [pH] Normal 5-9 [facility] Comment on above: Performed By: #### E RUR #### [facility] [address] [place] [address] [address] Phong Thayer SPEC GRAVITY 1.015 Normal 1.005-<=1. 025 [facility] Comment on above: Performed By: #### E RUR #### [facility] [address] [place] [address] [address] Phong Thayer UA PROTEIN Negative Normal NEGATIVE/ TRACE [facility] Comment on above: Performed By: #### E RUR #### [facility] [address] [address] [address] Phong Thayer UR MICRO IND NOT INDICATED Normal [facility] Comment on above: Performed By: #### E RUR #### [facility] [address] [place] [address] Dr. Phong Thayer Urobilinogen Qn (U) 0.2 {Gilma'U}/dL Normal 0.2 - 1. 0 [facility] Comment on above: Performed By: #### E RUR #### [facility] [address] [place] [address] Dr. Phong Thayer XR LSPINE 2_3 VIEWSon [...] DONALD CANNON Date: 2022-10-23 16:28 Normal [facility] T3, TOTAL (TRIIODOTHYRONINE) on 09-16-2022 T3, TOTAL 132 ng/dL Normal 71-180 [facility] Comment on above: Performed By: #### T 3TOTAL ####[facility] [id number] [address]Dr. Phong Thayer CBC AUTO DIFFon 09-15-2022 BASO # 0.0 103/ul Normal 0.0-0.1 [facility] Comment on above: Performed By: #### C BC #### [facility] [address] [place] [address] Dr. Phong Thayer Basophils/100 WBC (Bld) 0.3 % Normal 0.2-2.0 [facility] Comment on above: Performed By: #### C BC #### [facility] [address] [place] [address] Dr. Phong Thayer EO # 0.1 103/ul Normal 0.0-0.[address] [facility] Comment on above: Performed By: #### C BC #### [facility] [address] [place] [address] Dr. Phong Thayer Eosinophils/100 WBC (Bld) 0.8 % Critically low 0.9-7.0 [facility] Comment on above: Performed By: #### C BC #### [facility] [address] [place] [address] Dr. Phong Thayer Erythrocyte distribution width (RBC) [Ratio] 12.5 % Normal 11.0-15.0 [facility] Comment on above: Performed By: #### C BC #### [facility] [address] [place] [address] Dr. Phong Thayer Hematocrit (Bld) [Volume fraction] 42.2 % Normal 36.0-48.0 [facility] Comment on above: Performed By: #### C BC #### [facility] [address] [place] [address] Dr. Phong Thayer Hemoglobin (Bld) [Mass/Vol] 14.3 g/dL Normal 12.0-16.[address] [facility] Comment on above: Performed By: #### C BC #### [facility] [address] [place] [address] Dr. Phong Thayer IG # 0.01 10e3/ul Normal 0.00-0.03 [facility] Comment on above: Performed By: #### C BC #### [facility] [address] [place] [address] Dr. Phong Thayer IG % 0.1 % Normal 0.0-0.5 [facility] Comment on above: Performed By: #### C BC #### [facility] [address] [place] [address] Dr. Phong Thayer LYMPH # 2.5 103/ul Normal 1.2-3.8 [facility] Comment on above: Performed By: #### C BC #### [facility] [address] [place] [address] Dr. Phong Thayer Lymphocytes/100 WBC (Bld) 33.7 % Normal 20.5-60.0 [facility] Comment on above: Performed By: #### C BC #### [facility] [address] [place] [address] Dr. Phong Thayer MANUAL DIFF REQ NO Normal [facility] Comment on above: Performed By: #### C BC #### [facility] [address] [place] [address] Dr. Phong Thayer MCH (RBC) [Entitic mass] 29.1 pg Normal 26.7-34.0 [facility] Comment on above: Performed By: #### C BC #### [facility] [address] [place] [address] Dr. Phong Thayer MCHC (RBC) [Mass/Vol] 33.9 g/dL Normal 29.9-35.2 [facility] Comment on above: Performed By: #### C BC #### [facility] [address] [place] [address] Dr. Phong Thayer MCV (RBC) [Entitic vol] 85.9 fL Normal 81.0-99.0 [facility] Comment on above: Performed By: #### C BC #### [facility] [address] [place] [address] Dr. Phong Thayer MONO # 0.4 103/ul Normal 0.3-0.8 [facility] Comment on above: Performed By: #### C BC #### [facility] [address] [place] [address] Dr. Phong Thayer Monocytes/100 WBC (Bld) 5.3 % Normal 1.7-12.0 [facility] Comment on above: Performed By: #### C BC #### [facility] [address] [place] [address] Dr. Phong Thayer NEUT # 4.5 103/ul Normal 1.4-6.5 [facility] Comment on above: Performed By: #### C BC #### [facility] [address] [place] [address] Dr. Phong Thayer Neutrophils/100 WBC (Bld) 59.8 % Normal 43.0-75.0 [facility] Comment on above: Performed By: #### C BC #### [facility] [address] [place] [address] Dr. Phong Thayer Platelet mean volume (Bld) [Entitic vol] 10.2 fL Normal 9.5-13.5 [facility] Comment on above: Performed By: #### C BC #### [facility] [address] [place] [address] Dr. Phong Thayer PLT 227 103/ul Normal 150-[address] [facility] Comment on above: Performed By: #### C BC #### [facility] [address] [place] [address] Dr. Phong Thayer RBC 4.91 106/ul Normal 4.20-5.40 [facility] Comment on above: Performed By: #### C BC #### [facility] [address] [place] [address] Dr. Phong Thayer WBC 7.5 103/ul Normal 4.0-11.[address] [facility] Comment on above: Performed By: #### C BC #### [facility] [address] [place] [address] Dr. Phong Thayer FREE THYROXINE INDEX T7on FTI 2.37 Normal 1.30-4.50 [facility] Comment on above: Performed By: #### T SH, T4, T7, CMP #### [facility] [address] [place] [address] Dr. Phong Thayer T3U 32.0 % Normal 30.0-39.0 [facility] Comment on above: Performed By: #### T SH, T4, T7, CMP #### [facility] [address] [place], [place] [address] Dr. Phong Thayer LIPID PROFILEon 09-15-2022 CHOL-HDL RATIO NORM SEE BELOW Normal [facility] Comment on above: Result Comment: 3.3 - 4.4 LOW RISK 4.4 - 7.1 AVERAGE RISK 7.1 - 11.0 MODERATE RISK >11.0 HIGH RISK Performed By: #### L IPID ####[facility] [id number] [place], [place] [address]Pt. Phong Thayer Cholesterol [Mass/Vol] 163 mg/dL Normal <=200 [facility] Comment on above: Performed By: #### L IPID ####[facility] [address] [place], [place] [address]El. Phong Thayer Cholesterol in HDL [Mass/Vol] 57 mg/dL Normal 40-60 [facility] Comment on above: Performed By: #### L IPID ####[facility] [id number] [place] [id number]. Phong Thayer Cholesterol in LDL [Mass/Vol] 69.8 mg/dL Normal [facility] Comment on above: Performed By: #### L IPID ####[facility] [id number] [place] [id number]. Phong Thayer Cholesterol.total/Ch olesterol in HDL [Mass ratio] 2.9 {ratio} Normal [facility] Comment on above: Performed By: #### L IPID ####[facility] [address] [place] [id number]. Phong Thayer HDL NORMAL > or = 60 mg/dl - LO W CARDIOVASCULAR RISK <40 mg/dl - HIGH CARDIOVASCULAR RISK Normal [facility] Comment on above: Performed By: #### L IPID ####[facility] [id number] [place] [id number]. Phong Thayer LDL CALC NORMAL SEE BELOW Normal [facility] Comment on above: Result Comment: <100 mg/dl OPTIMAL 100 - 129 mg/dl NEAR OR ABOVE OPTIMAL 130 - 159 mg/dl BORDERLINE HIGH 160 - 189 mg/dl HIGH >190 mg/dl VERY HIGH Performed By: #### L IPID ####[facility] [id number] [place] [id number]. Phong Thayer Triglyceride [Mass/Vol] 181 mg/dL Critically high <=150 [facility] Comment on above: Performed By: #### L IPID ####[facility] [address] [place] [id number]. Phong Thayer VLDL CALC 36.2 mg/dL Normal [facility] Comment on above: Performed By: #### L IPID ####[facility] [address] [place] [id number]. Phong Thayer PROF 14(COMP METB)on 022 Albumin [Mass/Vol] 3.6 g/dL Normal 3.4-5.0 [facility] Comment on above: Performed By: #### T SH, T4, T7, CMP #### [facility] [address] [address] [address] Phong Thayer Albumin/Globulin [Mass ratio] 1.0 {ratio} Normal [facility] Comment on above: Performed By: #### T SH, T4, T7, CMP #### [facility] [address] [place] [address] [address] Phong Thayer ALP [Catalytic activity/Vol] 90 U/L Normal 46-[address] [facility] Comment on above: Performed By: #### T SH, T4, T7, CMP #### [facility] [address] [address] [address] Phong Thayer ALT [Catalytic activity/Vol] 27 U/L Normal 14-[address] [facility] Comment on above: Performed By: #### T SH, T4, T7, CMP #### [facility] [address] [address] [address] Phong Thayer Anion gap [Moles/Vol] 14.2 mmol/L Normal [facility] Comment on above: Performed By: #### T SH, T4, T7, CMP #### [facility] [address] [place] [address] [address] Phong Thayer AST [Catalytic activity/Vol] 13 U/L Critically low 15-37 [facility] Comment on above: Performed By: #### T SH, T4, T7, CMP #### [facility] [address] [place] [address] [address] Phong Thayer Bilirubin [Mass/Vol] 0.2 mg/dL Normal 0.2-1.0 [facility] Comment on above: Performed By: #### T SH, T4, T7, CMP #### [facility] [address] [place] [address] [address] Phong Thayer Calcium [Mass/Vol] 9.0 mg/dL Normal 8.5-10.1 [facility] Comment on above: Performed By: #### T SH, T4, T7, CMP #### [facility] [address] [place] [address] Dr. Phong Thayer Chloride [Moles/Vol] 103 mmol/L Normal 98-[address] [facility] Comment on above: Performed By: #### T SH, T4, T7, CMP #### [facility] [address] [place] [address] Dr. Phong Thayer CO2 [Moles/Vol] 23.9 mmol/L Normal 21.0-32.0 [facility] Comment on above: Performed By: #### T SH, T4, T7, CMP #### [facility] [address] [place] [address] Dr. Phong Thayer Creatinine [Mass/Vol] 0.76 mg/dL Normal 0.55-1.02 [facility] Comment on above: Performed By: #### T SH, T4, T7, CMP #### [facility] [address] [place] [address] Dr. Phong Thayer EGFR-AF MALAYSIAN >60 Normal >=60 [facility] Comment on above: Performed By: #### T SH, T4, T7, CMP #### [facility] [address] [place] [address] Dr. Phong Thayer EGFR-NON AF MALAYSIAN >60 Normal >=60 [facility] Comment on above: Performed By: #### T SH, T4, T7, CMP #### [facility] [address] [place] [address] [address] Phong Thayer Globulin (S) [Mass/Vol] 3.6 g/dL Normal [facility] Comment on above: Performed By: #### T SH, T4, T7, CMP #### [facility] [address] [address] [address] Phong Thayer Glucose [Mass/Vol] 95 mg/dL Normal 74-106 [facility] Comment on above: Performed By: #### T SH, T4, T7, CMP #### [facility] [address] [place] [address] Dr. Phong Thayer Potassium [Moles/Vol] 4.1 mmol/L Normal 3.5-5.1 [facility] Comment on above: Performed By: #### T SH, T4, T7, CMP #### [facility] [address] [place] [address] Dr. Phong Thayer Protein [Mass/Vol] 7.2 g/dL Normal 6.4-8.2 [facility] Comment on above: Performed By: #### T SH, T4, T7, CMP #### [facility] [address] [place] [address] Dr. Phong Thayer Sodium [Moles/Vol] 137 mmol/L Normal 136-145 [facility] Comment on above: Performed By: #### T SH, T4, T7, CMP #### [facility] [address] [place] [address] Dr. Phong Thayer Urea nitrogen [Mass/Vol] 13.0 mg/dL Normal 7.0-18.0 [facility] Comment on above: Performed By: #### T SH, T4, T7, CMP #### [facility] [address] [place] [address] Dr. Phong Thayer Urea nitrogen/Creatinine [Mass ratio] 17.1 mg/mg Normal [facility] Comment on above: Performed By: #### T SH, T4, T7, CMP #### [facility] [address] [place] [address] Dr. Phong Thayer T4on 09-15-2022 T4 [Mass/Vol] 7.40 ug/dL Normal 4.80-13.[address] [facility] Comment on above: Performed By: #### T SH, T4, T7, CMP #### [facility] [address] [address] [address] Phong Thayer TSHon 09-15-2022 TSH 2.515 uIU/mL Normal 0.358-3.[address] [facility] Comment on above: Performed By: #### T SH, T4, T7, CMP #### [facility] [address] [address] [address] Phong Thayer VITAMIN B12on 09-15-2022 Cobalamin (Vitamin B12) [Mass/Vol] 423.0 pg/mL Normal 193.0-986. 0 [facility] Comment on above: Performed By: #### V ITAD, VITB12 ####[facility] [address] [place] [address]DrAnnalee Thayer VITAMIN D 25 OHon 09-15-2022 VIT D 25-OH 28.3 ng/mL Normal [facility] Comment on above: Performed By: #### V ITAD, VITB12 ####[facility] [address] [address]DrAnnalee Thayer VIT D RANGES SEE BELOW Normal [facility] Comment on above: Result Comment: <20 ng/mL Vit D deficient 20 - <30 ng/mL Vit D insufficient 30 - 100 ng/mL Vit D sufficient >100 ng/mL Potential Toxicity Performed By: #### V ITAD, VITB12 ####[facility] [address] [place] [id number] Thayer A1C HEMOGLOBINon 09-02-2022 HbA1c (Bld) [Mass fraction] 5.1 % [employer] Other HbA1c (Bld) [Mass fraction]o n 09-02-2022 A1C HEMOGLOBIN [facility] [employer] Other XR FOOT AIDA MIN 3 VIEWSon XR [...] by: RAFAEL COATS Date: 2022-07-07 13:58 Normal [facility] Urine culture routineOrdered By: AME ZARAGOZA on 05-27-2022 Bacteria identified Cx Nom (U) Staphylococcus saprophyticus [facility] Urinalysis - AUTOMATEDon Appearance (U) clear [employer]EL Other Bilirubin Ql (U) Negative [employer] Other Color (U) lt. yellow [employer] Other Glucose Ql (U) Negative mcTEL Other Hemoglobin Ql (U) moderate [employer] Other Ketones Ql (U) Negative [employer]EL Other Leukocyte esterase Test strip Ql (U) small [employer] Other Nitrite Ql (U) Negative [employer]EL Other pH (U) 6.0 [pH] [employer] Other Protein Ql (U) Negative [employer]EL Other Specific gravity (U) [Rel density] 1.010 [employer] Other Urobilinogen (U) [Mass/Vol] 0.2 mg/dL [employer] Other Urinalysis - AUTOMATED [employer] Other Urine Cultureon 05-24-2022 Bacteria identified Cx Nom (U) [employer] Other XR hand LT min 3V*on 021 XR hand LT min 3V* [facility] [employer] Other XR hand LT min 3V* [facility] [employer] Other XR hand LT min 3V* [address] [place] [address] [employer] Other XR hand LT min 3V* [place] [address] [employer] Other XR hand LT min 3V* XRay Report [employer] Other XR hand LT min 3V* Signed [employer] Other XR hand LT min 3V* Patient: Kelly Castillo MR#: [id number] [employer] Other XR hand LT min 3V* 7804 [employer] Other XR hand LT min 3V* : 1985 Acct:[id number] [employer] Other XR hand LT min 3V* Age/Sex: 36 / F ADM Date: 10/02/21 [employer] Other XR hand LT min 3V* Loc: XDUCLY Room: Ty pe: REG CLI [employer] Other XR hand LT min 3V* Attending Dr: Sera Lares [employer]-C [employer] Other XR hand LT min 3V* Ordering Provider: PRASHANTH Wilson [employer] Other XR hand LT min 3V* Date of Service: 10/02/21 [employer] Other XR hand LT min 3V* [id number]) XR/XR hand LT min 3V*: Finger pain, left [employer] Other XR hand LT min 3V* Copies to: PRASHANTH Jordan [employer] Other XR hand LT min 3V* 3 viewsLEFT hand plain film [employer] Other XR hand LT min 3V* COMPARISON:None N [employer] Other XR hand LT min 3V* HISTORY:LEFT hand injury [employer] Other XR hand LT min 3V* No fracture, disloca tion or focal soft tissue abnormality seen. [employer] Other XR hand LT min 3V* X R/XR hand LT min 3V* [employer] Other XR hand LT min 3V* IMPRESSION:No acute findings [employer] Other XR hand LT min 3V* Impression dictated by: Fuad Swain M.D.10/02/2021 6:01 PM [employer] Other XR hand LT min 3V* Dictation Location: [place] [address] [employer] Other XR hand LT min 3V* Transcribed By: NUZHAT 10/02/21 1801 [employer] Other XR hand LT min 3V* Dictated By: Suhas Swain DO 10/02/21 1759 [employer] Other XR hand LT min 3V* Signed By: [employer] Other XR hand LT min 3V* 10/02/21 1801 [facility] hint Other Automated basophil %on 11-25 Basophils/100 WBC (Bld) 1.0 % [facility] Automated basophil counton 0 11-25-2020 Basophils (Bld) [#/Vol] 0.1 10*3/uL 0.0-0.2 [facility] Automated blood lymphocyte c ount (number/volume)on 11-25-2020 Lymphocytes (Bld) [#/Vol] 2.2 10*3/uL 1.00-4.8 [facility] Automated blood lymphocyte c ount as percentage of total leukocyteson 11-25-2020 Lymphocytes/100 WBC (Bld) 29.2 % [facility] Automated blood monocyte cou nton 11-25-2020 Monocytes (Bld) [#/Vol] 0.4 10*3/uL 0.0-0.8 [facility] Automated blood platelet cou nt (count/volume)on 11-25-2020 Platelets (Bld) [#/Vol] 247 10*3/uL 150-450 [facility] Automated blood platelet ton n volume measurementon 11-25-2020 Platelet mean volume (Bld) [Entitic vol] 8.8 fL 6.3-10.7 [facility] Automated eosinophil %on Eosinophils/100 WBC (Bld) 1.1 % [facility] Automated eosinophil counton 11-25-2020 Eosinophils (Bld) [#/Vol] 0.1 10*3/uL 0.0-0.45 [facility] Automated erythrocyte distri bution width ratioon 11-25-2020 Erythrocyte distribution width (RBC) [Ratio] 13.3 % 11.9-15.3 [facility] Automated erythrocyte mean c orpuscular hemoglobin (mass per erythrocyte)on 11-25-2020 MCH (RBC) [Entitic mass] 29.2 pg 24.7-34.3 [facility] Automated erythrocyte mean c orpuscular hemoglobin concentration measurement (mass/volon 11-25-2020 MCHC (RBC) [Mass/Vol] 33.6 g/dL 32.0-35.0 [facility] Automated erythrocyte mean c orpuscular volumeon 11-25-2020 MCV (RBC) [Entitic vol] 87.0 fL 80-100 [facility] Automated monocyte %on 11-25 Monocytes/100 WBC (Bld) 5.4 % [facility] Automated neutrophil %on Neutrophils/100 WBC (Bld) 63.3 % [facility] Blood erythrocytes automated count (number/volume)on 11-25-2020 RBC (Bld) [#/Vol] 4.64 10*6/uL 3.60-5.00 [facility] Blood hemoglobin measurement (mass/volume)on 11-25-2020 Hemoglobin (Bld) [Mass/Vol] 13.6 g/dL 11.8-15.4 [facility] Blood leukocytes automated c ount (number/volume)on 11-25-2020 WBC (Bld) [#/Vol] 7.7 10*3/uL 3.8-11.6 [facility] Blood neutrophil count by au tomated method (number/volume)on 11-25-2020 Neutrophils (Bld) [#/Vol] 4.9 10*3/uL 1.8-7.7 [facility] COVID-19 Positive/Negativeon 11-25-2020 COVID-19 Positive/Negative Negative Negative [facility] Comment on above: Testing for SARS-CoV -2 by RT-PCRThis test was developed and its performance characteristics determined by [employer] ([employer]) and validated at the [facility]. This test has not been FDA [...] among non-blacks MDRD (S/P/Bld) [Vol rate/Area] mL/min/{1.73_m2} [facility] Hematocrit [Volume Fraction] of Blood by Automated counton 11-25-2020 Hematocrit (Bld) [Volume fraction] 40.4 % 34.0-46.4 [facility] Otheron 11-25-2020 Coronavirus 2019 PCR Interp N/A [facility] GFR/1.73 sq M.predicted MDRD (S/P/Bld) [Vol rate/Area] mL/min/{1.73_m2} [facility] Comment on above: GFR estimated refere nce range: According to KDOQI guidelines, <60 ml/min/1.73m2 is sufficient to diagnose a patient with chronic kidney disease. Nucleated RBC/100 WBC (Bld) [Ratio] 0.0 % 0-0.5 [facility] Creatinine Clearance (Chem N/A [facility] Serum or plasma calcium eleni urement (mass/volume)on 11-25-2020 Calcium [Mass/Vol] 9.3 mg/dL 8.2-10.2 [facility] Serum or plasma chloride ton surement (moles/volume)on 11-25-2020 Chloride [Moles/Vol] 104 mmol/L 95-114 [facility] Serum or plasma creatinine m easurement with calculation of estimated glomerular filtron 11-25-2020 Creatinine [Mass/Vol] 0.76 mg/dL 0.44-1.03 [facility] Serum or plasma glucose eleni urement (mass/volume)on 11-25-2020 Glucose [Mass/Vol] 96 mg/dL 70-100 [facility] Comment on above: ADA recommended refe rence rangeRandom Glucose Reference Range is dependent on time and content of last meal. Glucose of more than 200 mg/dL in a nonstressed, ambulatory subject supports the diagnosis of Diabetes Mellitus. Serum or plasma potassium me asurement (moles/volume)on 11-25-2020 Potassium [Moles/Vol] 4.1 mmol/L 3.5-5.1 [facility] Serum or plasma sodium measu rement (moles/volume)on 11-25-2020 Sodium [Moles/Vol] 138 mmol/L 136-146 [facility] Serum or plasma total carbon dioxide measurement (moles/volume)on 11-25-2020 CO2 [Moles/Vol] 24.6 mmol/L 22.0-30.0 [facility] Serum or plasma urea nitroge n measurement (mass/volume)on 11-25-2020 Urea nitrogen [Mass/Vol] 6 mg/dL 07-23 [facility] COVID-19 SOFIAon 10-27-2020 COVID-19 MINERVA Negative Negative [facility] Comment on above: This is a duplicate test result based off of the Minerva SARS Antigen (LIZ) test performed within the Microbiology department. Otheron 10-27-2020 SARS Antigen (LFIA) [facility] Albumin [Mass/volume] in Ser um or Plasmaon 09-12-2020 Albumin [Mass/Vol] 3.9 g/dL 3.2-5.5 [facility] Cholesterol [Mass/volume] in Serum or Plasmaon 09-12-2020 Cholesterol [Mass/Vol] 175 mg/dL 140-200 [facility] Comment on above: Chol less than 200 m g/dl low riskChol 201-239 mg/dl borderline riskChol 240 mg/dl and greater high risk Cholesterol in LDL [Mass/vol ume] in Serum or Plasma by calculationon 09-12-2020 Cholesterol in LDL [Mass/Vol] 74 mg/dL 0-100 [facility] Comment on above: LDL ATP III CLASSIFI CATIONLDL less than 100 mg/dL OptimalLDL 100-129 mg/dL Near or above optimalLDL 130-159 mg/dL Borderline highLDL 160-189 mg/dL HighLDL greater than 189 mg/dL Very high Cholesterol in VLDL [Mass/vo lume] in Serum or Plasma by calculationon 09-12-2020 Cholesterol in VLDL [Mass/Vol] 44 mg/dL [facility] Estimated glomerular filtrat ion rate (GFR) non- Americanon 09-12-2020 GFR/1.73 sq M predicted among non-blacks MDRD (S/P/Bld) [Vol rate/Area] mL/min/{1.73_m2} [facility] Metabolic Panelon 09-12-2020 Glucose [Mass/Vol] 81 mg/dL 70-100 [facility] Otheron 09-12-2020 GFR/1.73 sq M.predicted MDRD (S/P/Bld) [Vol rate/Area] mL/min/{1.73_m2} [facility] Comment on above: GFR estimated refere nce range: According to KDOQI guidelines, <60 ml/min/1.73m2 is sufficient to diagnose a patient with chronic kidney disease. Pharmacy Creatinine Clearance (Chem N/A [facility] Protein [Mass/volume] in Ser um or Plasmaon 09-12-2020 Protein [Mass/Vol] 6.5 g/dL 6.1-7.9 [facility] Serum globulin measurement b y calculation (mass/volume)on 09-12-2020 Globulin (S) [Mass/Vol] 2.6 g/dL [facility] Serum or plasma alanine rizvi otransferase measurement without P-5'-P (enzymatic activion 09-12-2020 ALT No additional P-5'-P [Catalytic activity/Vol] 22 U/L 1060 [facility] Serum or plasma albumin/glob ulin mass ratioon 09-12-2020 Albumin/Globulin [Mass ratio] 1.5 {ratio} [facility] Serum or plasma alkaline katherine sphatase measurement (enzymatic activity/volume)on 09-12-2020 ALP [Catalytic activity/Vol] 76 U/L 32-92 [facility] Serum or plasma aspartate am inotransferase measurement (enzymatic activity/volume)on 09-12-2020 AST [Catalytic activity/Vol] 18 U/L 10-42 [facility] Serum or plasma calcium eleni urement (mass/volume)on 09-12-2020 Calcium [Mass/Vol] 9.3 mg/dL 8.2-10.2 [facility] Serum or plasma chloride tno surement (moles/volume)on 09-12-2020 Chloride [Moles/Vol] 101 mmol/L 95-114 [facility] Serum or plasma creatinine m easurement with calculation of estimated glomerular filtron 09-12-2020 Creatinine [Mass/Vol] 0.67 mg/dL 0.44-1.03 [facility] Serum or plasma high density lipoprotein (HDL) cholesterol measurementon 09-12-2020 Cholesterol in HDL [Mass/Vol] 57 mg/dL 35-85 [facility] Comment on above: HDL CHOL ATP-III CLA SSIFICATION Cardiovascular RiskHDL > or equal to 60 mg/dL LOWHDL < 40 mg/dL HIGH Serum or plasma potassium me asurement (moles/volume)on 09-12-2020 Potassium [Moles/Vol] 3.9 mmol/L 3.5-5.1 [facility] Serum or plasma sodium measu rement (moles/volume)on 09-12-2020 Sodium [Moles/Vol] 136 mmol/L 136-146 [facility] Serum or plasma total biliru bin measurement (mass/volume)on 09-12-2020 Bilirubin [Mass/Vol] 0.5 mg/dL 0.3-1.2 [facility] Serum or plasma total carbon dioxide measurement (moles/volume)on 09-12-2020 CO2 [Moles/Vol] 23.4 mmol/L 22.0-30.0 [facility] Serum or plasma total choles terol/high density lipoprotein (HDL) cholesterol mass yany 09-12-2020 Cholesterol.total/Ch olesterol in HDL [Mass ratio] 3.1 {ratio} [facility] Serum or plasma urea nitroge n measurement (mass/volume)on 09-12-2020 Urea nitrogen [Mass/Vol] 7 mg/dL 07-23 [facility] Triglyceride [Mass/volume] i n Serum or Plasmaon 09-12-2020 Triglyceride [Mass/Vol] 220 mg/dL 35-149 [facility] Comment on above: TRIG ATP III CLASSIF ICATIONTRIG less than 150 mg/dL NormalTRIG 150-199 mg/dL Borderline highTRIG 200-500 mg/dL High TRIG greater than 500 mg/dL Very highStandard traceable to the Center for Disease Conrtrol and Prevention (CDC) test method. Vital Signs Date Time Vital Sign Value Performing Clinician Facility 03-14-2025 08:43-0400 Blood Pressure Location Lester Dominguezshira [facility] 03-14-2025 08:43-0400 Diastolic blood pressure 64 mm[Hg] Florindaguille Mouchli [facility] 03-14-2025 08:43-0400 Heart rate 81 /min Florindaguille Bertramwaleli [facility] 03-14-2025 08:43-0400 Respiratory rate 14 /min Florindaguille Dominguezli [facility] 03-14-2025 08:43-0400 Systolic blood pressure 117 mm[Hg] Florindaguille Mcelroy [facility] 02-05-2025 08:10-0400 Body height 162.6 cm Kaylynn MOONEY Work Phone: [facility] 02-05-2025 08:10-0400 Body mass index (BMI) [Ratio] 33.81 kg/m2 Kaylynn MOONEY Work Phone: [facility] 02-05-2025 08:10-0400 Body weight 89.36 kg Kaylynn MOONEY Work Phone: [facility] 02-05-2025 08:10-0400 Diastolic blood pressure 78 mm[Hg] Kaylynn Jara PA Work Phone: [facility] 02-05-2025 08:10-0400 Heart rate 81 /min Kaylynn Jara PA Work Phone: [facility] 02-05-2025 08:10-0400 Respiratory rate 16 /min Kaylynn Jara PA Work Phone: [facility] 02-05-2025 08:10-0400 SaO2% (BldA) [Mass fraction] 97 % Kaylynn MOONEY Work Phone: [facility] 02-05-2025 08:10-0400 Systolic blood pressure 118 mm[Hg] Kaylynn MOONEY Work Phone: [facility] 01-30-2025 16:14-0400 Body mass index (BMI) [Ratio] 33.99 kg/m2 Chelsea Minerva-Nossek MEDICAL EDUCATION SPECIALIST-TUBE FITTER Work Phone: [facility] 01-30-2025 16:14-0400 Body weight 89.81 kg Chelsea Minerva-Nossek MEDICAL EDUCATION SPECIALIST-TUBE FITTER Work Phone: [facility] 01-30-2025 16:14-0400 Diastolic blood pressure 82 mm[Hg] Chelsea Minerva-Nossek MEDICAL EDUCATION SPECIALIST-TUBE FITTER Work Phone: [facility] 01-30-2025 16:14-0400 Heart rate 95 /min Chelsea Minerva-Nossek MEDICAL EDUCATION SPECIALIST-TUBE FITTER Work Phone: [facility] 01-30-2025 16:14-0400 Systolic blood pressure 118 mm[Hg] Chelsea Minerva-Nossek MEDICAL EDUCATION SPECIALIST-TUBE FITTER Work Phone: [facility] 12-26-2024 09:16-0500 Body mass index (BMI) [Ratio] 34.64 kg/m2 Yue Perez PA Work Phone: [facility] 12-26-2024 09:16-0500 Body weight 91.54 kg Yue Perez PA Work Phone: [facility] 12-26-2024 09:16-0500 Diastolic blood pressure 66 mm[Hg] Yue MOONEY Work Phone: [facility] 12-26-2024 09:16-0500 Systolic blood pressure 120 mm[Hg] Yue MOONEY Work Phone: [facility] 12-18-2024 16:01-0500 Body mass index (BMI) [Ratio] 34.16 kg/m2 Chelsea Minerva-Nossek MEDICAL EDUCATION SPECIALIST-TUBE FITTER Work Phone: [facility] 12-18-2024 16:01-0500 Body weight 90.27 kg Chelsea Minerva-Nossek MEDICAL EDUCATION SPECIALIST-TUBE FITTER Work Phone: [facility] 12-18-2024 16:01-0500 Diastolic blood pressure 78 mm[Hg] Chelsea Minerva-Nossek MEDICAL EDUCATION SPECIALIST-TUBE FITTER Work Phone: [facility] 12-18-2024 16:01-0500 Heart rate 93 /min Chelsea Minerva-Nossek MEDICAL EDUCATION SPECIALIST-TUBE FITTER Work Phone: [facility] 12-18-2024 16:01-0500 Systolic blood pressure 128 mm[Hg] Chelsea Minerva-Nossek MEDICAL EDUCATION SPECIALIST-TUBE FITTER Work Phone: [facility] 11-22-2024 16:39-0500 Body mass index (BMI) [Ratio] 33.99 kg/m2 Chelsea Minerva-Nossek MEDICAL EDUCATION SPECIALIST-TUBE FITTER Work Phone: [facility] 11-22-2024 16:39-0500 Body weight 89.81 kg Chelsea Minerva-Nossek MEDICAL EDUCATION SPECIALIST-TUBE FITTER Work Phone: [facility] 11-22-2024 16:39-0500 Diastolic blood pressure 80 mm[Hg] Hcelsea Minerva-Nossek MEDICAL EDUCATION SPECIALIST-TUBE FITTER Work Phone: [facility] 11-22-2024 16:39-0500 Heart rate 78 /min Chelsea Minerva-Nossek MEDICAL EDUCATION SPECIALIST-TUBE FITTER Work Phone: [facility] 11-22-2024 16:39-0500 Systolic blood pressure 128 mm[Hg] Chelsea Minerva-Nossek MEDICAL EDUCATION SPECIALIST-TUBE FITTER Work Phone: [facility] 11-01-2024 16:30-0500 Body mass index (BMI) [Ratio] 33.99 kg/m2 Christine Helton QUALITY ASSURANCE PROJECT MANAGER Work Phone: [facility] 11-01-2024 16:30-0500 Body weight 89.81 kg Christine Helton QUALITY ASSURANCE PROJECT MANAGER Work Phone: [facility] 11-01-2024 16:30-0500 Diastolic blood pressure 73 mm[Hg] Christine Helton QUALITY ASSURANCE PROJECT MANAGER Work Phone: [facility] 11-01-2024 16:30-0500 Heart rate 90 /min Christine Helton QUALITY ASSURANCE PROJECT MANAGER Work Phone: [facility] 11-01-2024 16:30-0500 Systolic blood pressure 126 mm[Hg] Christine Helton QUALITY ASSURANCE PROJECT MANAGER Work Phone: [facility] 09-19-2024 16:38-0500 Body height 172.72 cm [facility] 09-19-2024 16:38-0500 Body mass index (BMI) [Ratio] 30.2 kg/m2 [facility] 09-19-2024 16:38-0500 Body temperature 98.1 [degF] [facility] 09-19-2024 16:38-0500 Body weight 90.03 kg [facility] 09-19-2024 16:38-0500 Diastolic blood pressure 76 mm[Hg] [facility] 09-19-2024 16:38-0500 Heart rate 85 /min [facility] 09-19-2024 16:38-0500 SaO2% (BldA) [Mass fraction] 96 % [facility] 09-19-2024 16:38-0500 Systolic blood pressure 118 mm[Hg] [facility] 09-05-2024 16:28-0500 Body mass index (BMI) [Ratio] 34.16 kg/m2 Chelsea Minerva-Nossek MEDICAL EDUCATION SPECIALIST-TUBE FITTER Work Phone: [facility] 09-05-2024 16:28-0500 Body weight 90.27 kg Chelsea Minerva-Nossek MEDICAL EDUCATION SPECIALIST-TUBE FITTER Work Phone: [facility] 09-05-2024 16:28-0500 Diastolic blood pressure 72 mm[Hg] Chelsea Minerva-Nossek MEDICAL EDUCATION SPECIALIST-TUBE FITTER Work Phone: [facility] 09-05-2024 16:28-0500 Heart rate 78 /min Chelsea Minerva-Nossek MEDICAL EDUCATION SPECIALIST-TUBE FITTER Work Phone: [facility] 09-05-2024 16:28-0500 Systolic blood pressure 108 mm[Hg] Chelsea Minerva-Nossek MEDICAL EDUCATION SPECIALIST-TUBE FITTER Work Phone: [facility] 08-09-2024 08:57-0400 Body mass index (BMI) [Ratio] 34.67 kg/m2 Chelsea Palma-Nossek MEDICAL EDUCATION SPECIALIST-TUBE FITTER Work Phone: [facility] 08-09-2024 08:57-0400 Body weight 91.63 kg Chelsea Palma-Idalmissek MEDICAL EDUCATION SPECIALIST-TUBE FITTER Work Phone: [facility] 08-09-2024 08:57-0400 Diastolic blood pressure 78 mm[Hg] Chelsea Palma-Idalmissek MEDICAL EDUCATION SPECIALIST-TUBE FITTER Work Phone: [facility] 08-09-2024 08:57-0400 Heart rate 82 /min Chelsea Palma-Idalmissek MEDICAL EDUCATION SPECIALIST-TUBE FITTER Work Phone: [facility] 08-09-2024 08:57-0400 Systolic blood pressure 100 mm[Hg] Chelsea Palma-Idalmissek MEDICAL EDUCATION SPECIALIST-TUBE FITTER Work Phone: [facility] 07-17-2024 08:25-0400 Body height 162.6 cm Ericka Aguilar QUALITY ASSURANCE PROJECT MANAGER Work Phone: [facility] 07-17-2024 08:25-0400 Body mass index (BMI) [Ratio] 35.39 kg/m2 Ericka Aguilar QUALITY ASSURANCE PROJECT MANAGER Work Phone: [facility] 07-17-2024 08:25-0400 Body weight 93.53 kg Ericka Aguilar QUALITY ASSURANCE PROJECT MANAGER Work Phone: [facility] 07-17-2024 08:25-0400 Diastolic blood pressure 76 mm[Hg] Ericka Aguilar QUALITY ASSURANCE PROJECT MANAGER Work Phone: [facility] 07-17-2024 08:25-0400 Heart rate 85 /min Ericka Aguilar QUALITY ASSURANCE PROJECT MANAGER Work Phone: [facility] 07-17-2024 08:25-0400 SaO2% (BldA) [Mass fraction] 97 % Ericka Aguilar QUALITY ASSURANCE PROJECT MANAGER Work Phone: [facility] 07-17-2024 08:25-0400 Systolic blood pressure 128 mm[Hg] Ericka Aguilar NP Work Phone: [facility] 04-09-2024 13:31-0400 Blood Pressure Location Lester Mcelroy [facility] 04-09-2024 13:31-0400 Diastolic blood pressure 84 mm[Hg] Jeannettezaina Bertramuchli [facility] 04-09-2024 13:31-0400 Heart rate 61 /min Jeannettezaina Bertramuchli [facility] 04-09-2024 13:31-0400 Respiratory rate 16 /min Jeannettezaina Bertramwaleli [facility] 04-09-2024 13:31-0400 Systolic blood pressure 122 mm[Hg] Jeannetted Bertramuchli [facility] 02-26-2024 14:18-0400 Body height 172.72 cm [facility] 02-26-2024 14:18-0400 Body mass index (BMI) [Ratio] 33.1 kg/m2 [facility] 02-26-2024 14:18-0400 Body temperature 98.2 [degF] [facility] 02-26-2024 14:18-0400 Body weight 98.99 kg [facility] 02-26-2024 14:18-0400 Diastolic blood pressure 76 mm[Hg] [facility] 02-26-2024 14:18-0400 Heart rate 68 /min [facility] 02-26-2024 14:18-0400 Respiratory rate 18 /min [facility] 02-26-2024 14:18-0400 SaO2% (BldA) [Mass fraction] 98 % HELP DESK SUPPORT SPECIALIST-C Ame [facility] 02-26-2024 14:18-0400 Systolic blood pressure 120 mm[Hg] HELP DESK SUPPORT SPECIALIST-C Ame [facility] 10-17-2023 16:30-0500 Body height 162.56 cm Ml Chisholm Other [facility] Other 10-17-2023 16:30-0500 Body mass index (BMI) [Ratio] 34.67 kg/m2 Ml Chisholm Other [facility] Other 10-17-2023 16:30-0500 Body weight 91.63 kg Ml Chisholm Other [facility] Other 10-17-2023 16:30-0500 Diastolic blood pressure 71 mm[Hg] Ml Chisholm Other [facility] Other 10-17-2023 16:30-0500 Respiratory rate 18 /min Ml Chisholm Other [facility] Other 10-17-2023 16:30-0500 SaO2% (BldA) [Mass fraction] 96 % Ml Chisholm Other [facility] Other 10-17-2023 16:30-0500 Systolic blood pressure 112 mm[Hg] Ml Chisholm Other [facility] Other 08-10-2023 11:55-0400 Body height 162.56 cm Sera Lares Other [facility] Other 08-10-2023 11:55-0400 Body mass index (BMI) [Ratio] 37.24 kg/m2 Sera Lares Other [facility] Other 08-10-2023 11:55-0400 Body temperature 97.7 [degF] Sera Lares Other [facility] Other 08-10-2023 11:55-0400 Body weight 98.43 kg Sera Lares Other [facility] Other 08-10-2023 11:55-0400 Respiratory rate 18 /min Sera Lares Other [facility] Other 08-10-2023 11:55-0400 SaO2% (BldA) [Mass fraction] 98 % Sera Lares Other [facility] Other 09-08-2022 10:30-0500 Body height 162.56 cm Marleni Missler Other [facility] Other 09-08-2022 10:30-0500 Body mass index (BMI) [Ratio] 34.93 kg/m2 Marleni Missler Other [facility] Other 09-08-2022 10:30-0500 Body weight 92.31 kg Marleni Missler Other [facility] Other 09-08-2022 10:30-0500 Diastolic blood pressure 77 mm[Hg] Marleni Missler Other [facility] Other 09-08-2022 10:30-0500 Respiratory rate 18 /min Marleni Missler Other [facility] Other 09-08-2022 10:30-0500 SaO2% (BldA) [Mass fraction] 96 % Marleni Missler Other [facility] Other 09-08-2022 10:30-0500 Systolic blood pressure 117 mm[Hg] Marleni Jordan Other [facility] Other 09-02-2022 15:00-0400 Body height 162.56 cm Ame Nik Other [facility] Other 09-02-2022 15:00-0400 Body mass index (BMI) [Ratio] 34.5 kg/m2 Ame Patelault Other [facility] Other 09-02-2022 15:00-0400 Body temperature 98.6 [degF] Ame Nik Other [facility] Other 09-02-2022 15:00-0400 Body weight 91.17 kg Ame Patelault Other [facility] Other 09-02-2022 15:00-0400 Diastolic blood pressure 82 mm[Hg] Ame Patelault Other [facility] Other 09-02-2022 15:00-0400 Respiratory rate 18 /min Ame Nik Other [facility] Other 09-02-2022 15:00-0400 SaO2% (BldA) [Mass fraction] 86 % Ame Nik Other [facility] Other 09-02-2022 15:00-0400 Systolic blood pressure 129 mm[Hg] Ame Nik Other [facility] Other 07-10-2022 12:10-0400 Body height 162.56 cm Ame Nik Other [facility] Other 07-10-2022 12:10-0400 Body mass index (BMI) [Ratio] 33.91 kg/m2 Ame Zaragoza Other [facility] Other 07-10-2022 12:10-0400 Body temperature 98.6 [degF] Ame Zaragoza Other [facility] Other 07-10-2022 12:10-0400 Body weight 89.63 kg Ame Zaragoza Other [facility] Other 07-10-2022 12:10-0400 Diastolic blood pressure 81 mm[Hg] Ame Zaragoza Other [facility] Other 07-10-2022 12:10-0400 Respiratory rate 18 /min Ame Zaragoza Other [facility] Other 07-10-2022 12:10-0400 SaO2% (BldA) [Mass fraction] 98 % Ame Zaragoza Other [facility] Other 07-10-2022 12:10-0400 Systolic blood pressure 132 mm[Hg] Ame Zaragoza Other [facility] Other 05-24-2022 17:00-0400 Body height 162.56 cm Ame Zaragoza Other [facility] Other 05-24-2022 17:00-0400 Body mass index (BMI) [Ratio] 34.67 kg/m2 Ame Patelault Other [facility] Other 05-24-2022 17:00-0400 Body temperature 98 [degF] Ame Zaragoza Other [facility] Other 05-24-2022 17:00-0400 Body weight 91.63 kg Ame Zaragoza Other [facility] Other 05-24-2022 17:00-0400 Diastolic blood pressure 70 mm[Hg] Ame Zaragoza Other [facility] Other 05-24-2022 17:00-0400 Respiratory rate 18 /min Ame Zaragoza Other [facility] Other 05-24-2022 17:00-0400 SaO2% (BldA) [Mass fraction] 99 % Ame Zaragoza Other [facility] Other 05-24-2022 17:00-0400 Systolic blood pressure 122 mm[Hg] Ame Zaragoza Other [facility] Other 10-02-2021 18:20-0500 Body height 162.56 cm Sera uLda Other [facility] Other 10-02-2021 18:20-0500 Body mass index (BMI) [Ratio] 35.01 kg/m2 Sera Luda Other [facility] Other 10-02-2021 18:20-0500 Body temperature 98.2 [degF] Sera Luda Other [facility] Other 10-02-2021 18:20-0500 Body weight 92.53 kg Sera Lares Other [facility] Other 10-02-2021 18:20-0500 Diastolic blood pressure 81 mm[Hg] Sera Lares Other [facility] Other 10-02-2021 18:20-0500 Respiratory rate 18 /min Sera Lares Other [facility] Other 10-02-2021 18:20-0500 SaO2% (BldA) [Mass fraction] 99 % Sera Lares Other [facility] Other 10-02-2021 18:20-0500 Systolic blood pressure 118 mm[Hg] Sera Lares Other [facility] Other 08-22-2021 15:15-0400 Body height 162.56 cm Christiana Ginty Other [facility] Other 08-22-2021 15:15-0400 Body mass index (BMI) [Ratio] 34.33 kg/m2 Christiana Ginty Other [facility] Other 08-22-2021 15:15-0400 Body weight 90.72 kg Christiana Ginty Other [facility] Other Encounters Encounter Date Encounter Type Care Provider Facility Start: 04-08-2025 End: 04-08-2025 ambulatory Lester Mcelroy Facility:[facility] Start: 04-08-2025 End: 04-08-2025 Patient encounter procedure Lester Mcelroy [facility] Start: 03-16-2025 End: 03-16-2025 ambulatory Malcolm Torres Facility:[facility] Start: 03-14-2025 End: 03-14-2025 ambulatory Lester Mcelroy Facility:[facility] Start: 03-14-2025 End: 03-14-2025 Patient encounter procedure Lester Mcelroy [facility] Start: 03-08-2025 ambulatory [facility] Start: 02-22-2025 End: 02-22-2025 ambulatory ISAAKRENE BERGER Not Available Start: 02-22-2025 End: 02-22-2025 Bamboo flowsheet Isaak Berger [employer] Start: 02-22-2025 End: 02-22-2025 Bamboo flowsheet Isaak Berger [employer] Start: 02-05-2025 End: 02-05-2025 Bamboo flowsheet Kaylynn MOONEY Work Phone: [facility] Start: 02-05-2025 End: 02-05-2025 Bamboo flowsbrian MOONEY Work Phone: [facility] Start: 02-05-2025 End: 02-05-2025 Office outpatient visit 25 minutes Kaylynn MOONEY Work Phone: [facility] Comment on above: Chronic migraine wit hout aura without status migrainosus, not intractable (CMS/HCC) (Primary Dx); Tremor Start: 02-05-2025 End: 02-05-2025 ambulatory KAYLYNN JARA Not Available Start: 02-01-2025 End: 02-01-2025 Bamboo flowsheet Isaak Berger SALON LEADER [facility] FNR Start: 02-01-2025 End: 02-01-2025 Bamboo flowsheet Isaak Berger SALON LEADER [facility]OMS FNR Start: 02-01-2025 End: 02-01-2025 ambulatory ISAAK BERGER Not Available Start: 01-30-2025 End: 01-30-2025 Office outpatient visit 15 minutes Chelsea Virk APRN-TUBE FITTER Work Phone: N[facility]S Comment on above: Bipolar II disorder, most recent episode major depressive ([facility]) Start: 01-30-2025 End: 01-30-2025 ambulatory CHELSEA PALMA-NOSSEK Not Available Start: 01-30-2025 End: 01-30-2025 Bamboo flowsheet Chelsea GomezNossek MEDICAL EDUCATION SPECIALIST-TUBE FITTER Work Phone: [facility] CI BH Start: 01-30-2025 End: 01-30-2025 Bamboo flowsheet Chelsea Palma-Nossek MEDICAL EDUCATION SPECIALIST-TUBE FITTER Work Phone: [facility] Start: 01-25-2025 End: 01-25-2025 Bamboo flowsheet Isaak Berger SALON LEADER [facility] FNR BH Start: 01-25-2025 End: 01-25-2025 Bamboo flowsheet Isaak Berger SALON LEADER [facility] FNR Start: 01-25-2025 End: 01-25-2025 ambulatory ISAAK BERGER Not Available Start: 01-11-2025 End: 01-11-2025 ambulatory ISAAK BERGER Not Available Start: 01-04-2025 End: 01-04-2025 ambulatory ISAAK BERGER Not Available Start: 12-28-2024 End: 12-28-2024 Bamboo flowsheet Isaak Berger SALON LEADER [facility]OM[facility] FNR Start: 12-28-2024 End: 12-28-2024 Bamboo flowsheet Isaak Berger SALON LEADER [facility] FNR Start: 12-28-2024 End: 12-28-2024 ambulatory ISAAK BERGER Not Available Start: 12-26-2024 End: 12-26-2024 Subsequent hospital visit by physician Gabriele Danielle 1 Work Phone: Radiology Comment on above: History [...] Start: 12-21-2024 End: 12-21-2024 Telephone encounter Isaak MCKENZIEW [facility] FNR FM Start: 12-18-2024 End: 12-18-2024 ambulatory CHELSEA M MINERVA-NOSSEK Not Available Start: 12-18-2024 End: 12-18-2024 Office outpatient visit 15 minutes Chelsea M Minerva-Nossek MEDICAL EDUCATION SPECIALIST-TUBE FITTER Work Phone: [facility] Comment on above: Bipolar II disorder, most recent episode major depressive (CMS/HCC); Generalized anxiety disorder (CMS/HCC) Start: 11-22-2024 End: 11-22-2024 ambulatory CHELSEA M MINERVA-NOSSEK Not Available Start: 11-22-2024 End: 11-22-2024 Office outpatient visit 25 minutes Chelsea M Minerva-Nossek MEDICAL EDUCATION SPECIALIST-TUBE FITTER Work Phone: [facility] CI [facility] Comment on above: Bipolar II disorder, most recent episode major depressive (CMS/HCC); Insomnia, unspecified type; Generalized anxiety disorder (CMS/HCC) Start: 11-06-2024 End: 11-06-2024 Refill Chelsea M Minerva-Nossek MEDICAL EDUCATION SPECIALIST-TUBE FITTER Work Phone: [facility] Comment on above: Bipolar II disorder, most recent episode major depressive (CMS/HCC) Start: 11-01-2024 End: 11-01-2024 ambulatory CHRISTINETheo HELTON Not Available Start: 11-01-2024 End: 11-01-2024 Office outpatient visit 25 minutes Christine Helton QUALITY ASSURANCE PROJECT MANAGER Work Phone: [facility] Comment on above: Chronic migraine wit hout aura without status migrainosus, not intractable (CMS/HCC) (Primary Dx); Tremor Start: 11-01-2024 End: 11-01-2024 Bamboo flowsheet Christine Helton QUALITY ASSURANCE PROJECT MANAGER Work Phone: [facility] Start: 11-01-2024 End: 11-01-2024 Bamboo flowsheet Christine Helton QUALITY ASSURANCE PROJECT MANAGER Work Phone: [facility] Start: 09-19-2024 End: 09-19-2024 ambulatory [facility] Work Phone: Start: 09-19-2024 End: 09-19-2024 Patient encounter procedure [facility] [place] Work Phone: Start: 09-05-2024 End: 09-05-2024 ambulatory CHELSEA Quintin MINERVA-NOSSEK Not Available Start: 09-05-2024 End: 09-05-2024 Office outpatient visit 15 minutes Chelsea Quintin Minerva-Nossek MEDICAL EDUCATION SPECIALIST-TUBE FITTER Work Phone: [facility] CI Comment on above: Bipolar II disorder, most recent episode major depressive (CMS/HCC); Insomnia, unspecified type Start: 09-05-2024 End: 09-05-2024 Bamboo flowsheet Chelsea Quintin Minerva-Nossek MEDICAL EDUCATION SPECIALIST-TUBE FITTER Work Phone: [facility] CI Start: 09-05-2024 End: 09-05-2024 Bamboo flowsheet Chelsea M Minerva-Nossek MEDICAL EDUCATION SPECIALIST-TUBE FITTER Work Phone: [facility] CI Start: 08-09-2024 End: 08-09-2024 Bamboo flowsheet Chelsea Quintin Minerva-Nossek MEDICAL EDUCATION SPECIALIST-TUBE FITTER Work Phone: [facility] CI Start: 08-09-2024 End: 08-09-2024 Bamboo flowsheet Chelsea Salazarsek MEDICAL EDUCATION SPECIALIST-TUBE FITTER Work Phone: [facility] CI Start: 08-09-2024 End: 08-09-2024 Office outpatient visit 25 minutes Chelsea Palma-Idalmissek MEDICAL EDUCATION SPECIALIST-TUBE FITTER Work Phone: [facility] CI Comment on above: Bipolar II disorder, most recent episode major depressive (CMS/HCC); Generalized anxiety disorder (CMS/HCC) Start: 08-09-2024 End: 08-09-2024 ambulatory CHELSEA PALMA-NOSSEK Not Available Start: 07-17-2024 End: 07-17-2024 Bamboo flowsheet Ericka Aguilar QUALITY ASSURANCE PROJECT MANAGER Work Phone: [facility] [place] [address] Start: 07-17-2024 End: 07-17-2024 Bamboo flowsheet Ericka Aguilar QUALITY ASSURANCE PROJECT MANAGER Work Phone: [facility] [place] [address] Start: 07-17-2024 End: 07-17-2024 Telephone encounter Ericka Aguilar QUALITY ASSURANCE PROJECT MANAGER Work Phone: [facility] [place] [address] Start: 07-17-2024 End: 07-17-2024 Office outpatient visit 25 minutes Ericka Aguilar QUALITY ASSURANCE PROJECT MANAGER Work Phone: [facility] [place] [address] Comment on above: Chronic migraine wit hout aura without status migrainosus, not intractable (CMS/HCC) (Primary Dx); Tremor Start: 07-17-2024 End: 07-17-2024 ambulatory ERICKA AGUILAR Not Available Start: 07-13-2024 End: 07-13-2024 ambulatory ISAAK BERGER Not Available Start: 07-13-2024 End: 07-13-2024 Bamboo flowsheet Isaak Berger SALON LEADER NOMS FNR Start: 07-13-2024 End: 07-13-2024 Bamboo flowsheet Isaak Berger SALON LEADER [facility]S FNR Start: 07-04-2024 End: 07-04-2024 Bamboo flowsheet Isaak Berger SALON LEADER [facility] FNR Start: 07-04-2024 End: 07-04-2024 Bamboo flowsheet Isaak Berger SALON LEADER [facility]OM[facility] FNR Start: 07-04-2024 End: 07-04-2024 ambulatory [...] Start: 04-11-2024 End: 04-11-2024 ambulatory Lester Mcelroy Facility:[facility] Start: 04-11-2024 End: 04-11-2024 Lab Drop off Lester Mcelroy [facility] Start: 04-09-2024 End: 04-09-2024 ambulatory Lester Mcelroy Facility:[facility] Start: 04-09-2024 End: 04-09-2024 Patient encounter procedure Lester Mcelroy [facility] Start: 04-09-2024 End: 04-09-2024 Patient encounter procedure Lester Mcelroy [facility] Start: 03-15-2024 End: 03-15-2024 ambulatory LUIS EDUARDO NARANJOO Not Available Start: 02-26-2024 End: 02-26-2024 ambulatory HELP DESK SUPPORT SPECIALIST-C Ame Zaragoza [facility] Work Phone: Start: 02-26-2024 End: 02-26-2024 Patient encounter procedure HELP DESK SUPPORT SPECIALIST-C Ame Zaragoza [facility] [place] Work Phone: Start: 12-08-2023 End: 12-08-2023 ambulatory HELP DESK SUPPORT SPECIALIST-C Ame [facility] Work Phone: Start: 12-08-2023 End: 12-08-2023 Departed Referred HELP DESK SUPPORT SPECIALIST-C Ame [facility] Path [facility] Start: 10-17-2023 End: 10-17-2023 ambulatory Ml Chisholm Other [employer] Other Start: 10-17-2023 Office outpatient vi sit 15 minutes Ml Chisholm [facility] Start: 10-17-2023 End: 10-17-2023 Patient encounter procedure HELP DESK SUPPORT SPECIALIST-C Aem Zaragoza [facility] [place] Work Phone: Start: 08-10-2023 End: 08-10-2023 ambulatory Sera Luda Other [employer] Other Start: 08-10-2023 Office outpatient vi sit 15 minutes Sera Luda [facility] Start: 04-16-2023 End: 04-16-2023 ambulatory Ame Zaragoza Facility:[facility] Start: 02-02-2023 End: 02-03-2023 ambulatory AME ZARAGOZA Facility: Start: 01-26-2023 ambulatory AME NIK Facil ity:H1 Start: 01-17-2023 End: 01-17-2023 Lab Drop off AME ZARAGOZA [facility] Start: 10-31-2022 End: 10-31-2022 ambulatory PHYSICIAN [facility] Work Phone: Start: 10-31-2022 End: 10-31-2022 Patient encounter procedure PHYSICIAN NO [facility]-Self Pay Exercise Program Start: 10-23-2022 End: 10-23-2022 ambulatory FARHEEN CAMACHO . Facility:[facility]1 Start: 10-13-2022 End: 10-13-2022 Patient encounter procedure PHYSICIAN NO [facility]-MRI [facility] [place] Work Phone: Start: 10-13-2022 Registered Recurring PHYSICIAN NO [facility] Work Phone: Start: 10-12-2022 End: 10-12-2022 ambulatory PHYSICIAN NO [facility] Work Phone: Start: 10-12-2022 End: 10-12-2022 Patient encounter procedure PHYSICIAN NO [facility] [place] Start: 10-11-2022 Registered Recurring PHYSICIAN NO [facility] Start: 10-11-2022 End: 10-11-2022 ambulatory Marleni Jordan Other [employer] Other Start: 10-11-2022 Telephone encounter [facility]i [facility] Start: 09-15-2022 End: 09-16-[address] DOCTOR LANDEROS Facility:[facility]1 Start: 09-08-2022 End: 09-08-2022 ambulatory Marleni Jordan Other [employer] Other Start: 09-08-2022 Nutrition therapy [facility]her Jordan [facility] Start: 09-02-2022 End: 09-02-2022 ambulatory Ame Zaragoza Other [employer] Other Start: 09-02-2022 Office outpatient vi sit 15 minutes Ame Zaragoza [facility] [place] Start: 08-02-2022 End: 08-02-2022 ambulatory Debra Celestin Other [employer] Other Start: 08-02-2022 Telephone encounter Debra Celestin [facility] Start: 07-10-2022 End: 07-10-2022 ambulatory Ame Nik Other [employer] Other Start: 07-10-2022 Office outpatient vi sit 15 minutes Ame Nik [facility] Start: 07-07-2022 End: 07-08-[address] CONOR BEAL Facility:[facility] Start: 06-26-2022 End: 06-26-2022 ambulatory Ame Nik Other [employer] Other Start: 06-26-2022 Telephone encounter Ame Breaul t [facility] [place] Start: 05-24-2022 End: 05-24-2022 Departed Referred HELP DESK SUPPORT SPECIALIST-C Ame Zaragoza Work Phone: [facility]Lab [facility] [place] Start: 05-24-2022 End: 05-24-2022 ambulatory Ame Nik Other [employer] Other Start: 05-24-2022 Office outpatient vi sit 15 minutes Ame Nik [facility] [place] Start: 05-19-2022 End: 05-19-2022 ambulatory Ame Nik Other [employer] Other Start: 05-19-2022 Telephone encounter Ame Breaul t [facility] Start: 05-11-2022 ambulatory BRITNISHREE GRANT Facilit y:H1 Start: 12-11-2021 End: 12-11-2021 ambulatory Mae Nik Other [employer] Other Start: 12-11-2021 Telephone encounter Ame Breaul t [facility] Start: 10-02-2021 End: 10-02-2021 ambulatory Sera Lares Other [employer] Other Start: 10-02-2021 Office outpatient vi sit 15 minutes Sera Lares [facility] Start: 08-22-2021 End: 08-22-2021 ambulatory Christiana Martel Other [facility] [place] Other Start: 08-22-2021 Office outpatient vi sit 15 minutes Christiana Jazmynegraciey [facility] Start: 11-25-2020 End: 11-25-2020 Patient encounter procedure Kit Reyes ([facility]) -Pre-Surgical Testing Start: 10-27-2020 End: 10-27-2020 Patient encounter procedure Kit Reyes ([facility]) -[place] COVID Testing Start: 09-12-2020 End: 09-12-2020 Departed Referred Kit Reyes ([facility]) -[employer] [facility] [address] 250 Procedures Date Procedure Procedure Detail Performing Clinician Start: 04-08-2025 Colonoscopy Lester Mcelroy Start: 04-08-2025 Esophagogastroduodenoscopy Lester silva Start: 02-22-2025 End: 02-22-2025 Psychotherapy w/patient 60 minutes PTSD (post-traumatic stress disorder) (CMS/HCC) Isaak PAN Comment on above: PTSD (post-traumatic stress disorder) (C MS/HCC); Bipolar II disorder, most recent episode major depressive (CMS/HCC) Start: 02-01-2025 End: 02-01-2025 Psychotherapy w/patient 60 minutes PTSD (post-traumatic stress disorder) (CMS/HCC) Isaak PAN Comment on above: PTSD (post-traumatic stress disorder) (C MS/HCC); Bipolar II disorder, most recent episode major depressive (CMS/HCC) Start: 01-25-2025 End: 01-25-2025 Psychotherapy w/patient 60 minutes PTSD (post-traumatic stress disorder) (CMS/HCC) Isaak PAN Comment on above: PTSD (post-traumatic stress disorder) (C MS/HCC); Bipolar II disorder, most recent episode major depressive (CMS/HCC) Start: 01-14-2025 History of cholecystectomy S/P cholecystectomy Isaak TABOR Start: 12-28-2024 End: 12-28-2024 Psychiatric diagnostic evaluation Bipolar II disorder, most recent episode major depressive (CMS/HCC) Isaak Berger SALON LEADER Comment on above: Bipolar II disorder, most recent episode major depressive (CMS/HCC) Start: 12-26-2024 Radex calcaneus minimum 2 views Geraldine gabriel DPM Work Phone: Start: 12-26-2024 IGP,APTIMA HPV,AGE GDLN Yue Ana PA Work Phone: Start: 07-13-2024 End: 07-13-2024 Family psychotherapy w/o patient present 50 mins Marital/partner relational problem Isaakrene Berger SALON LEADER Comment on above: Marital/partner relational problem; Bipolar II disorder, most recent episode major depressive (CMS/HCC); Generalized anxiety disorder (CMS/HCC) Start: 07-04-2024 End: 07-04-2024 Psychotherapy w/patient 60 minutes Marital/partner relational problem Isaak Berger SALON LEADER Comment on above: Marital/partner relational problem; Bipolar II disorder, most recent episode major depressive (CMS/HCC) Start: 12-01-2023 ft (qualifier value) myVBOzaina DominguezMayi Zhaopin Comment on above: flat foot Start: 10-13-2022 MRI of head PHYSICIAN NO FAMILY Start: 10-27-2020 SARS Antigen (LFIA) Kit Reyes ([facility]) Cholecystectomy AME ZARAGOZA Colonoscopy FlorindaYour Practical Solutionszaina Mcelroy Dilation and curettage NAA ZARAGOZA Ear structure (body structure) myVBOzaina AVA.aiwaleMayi Zhaopin Esophagogastroduodenoscopy M nvguille Mcelroy History of cholecystectomy S/P cholecyste ctomy myVBOzaina DotProductli Hysterectomy Lester Dominguezli Laparoscope, device (physical object) myVBOzaina AVA.aiwaleli Mass of body structure (finding) myVBOzaina AVA.aigermaine Comment on above: arm Nasal sinus structur e (body structure) AME ZARAGOZA Nasal sinus structur e (body structure) Lester Mcelroy Comment on above: x2 Tonsillectomy AME ZARAGOZA Urine culture HELP DESK SUPPORT SPECIALIST-C Sil Zaragoza Work Phone: wisdom teeth AME ZARAGOZA Plan of Treatment Date Care Activity Detail Author Start: 02-08-2029 Urine microalbumin profile DTaP,Tdap,Td Vaccine (2 - Td or Tdap) [facility] Start: 07-01-2025 Influenza vaccination Influenz a Vaccine (Season Ended) [facility] Start: 05-16-2025 ambulatory Ambulatory Facility:[facility] Start: 03-20-2025 End: 03-20-2025 Patient encounter procedure 03/20/2025 8:20 AM EDT Office Visit GIANNA TAMEZ [address] [place] [address] Kaylynn Jara PA [address] [place], [place] [id number] GIANNA TAMEZ Start: 02-22-2025 End: 02-22-2025 Social Work 02/22/2025 3:00 PM EDT Social Work [facility] [address] [facility] [place] [address] Isaak Berger LSW [facility] Twila Start: 02-08-2025 End: 02-08-2025 Social Work 02/08/2025 1:00 PM EDT Social Work [facility] FNR [address] [place] [address] Isaak Berger LSW [facility] TIGRE Start: 02-05-2025 End: 02-05-2025 Patient encounter procedure GIANNA TAMEZ Comment on above: Arrived Start: 02-01-2025 End: 02-01-2025 Social Work [facility] Comment on above: Arrived Start: 01-30-2025 End: 01-30-2025 Patient encounter procedure [facility] CI [facility] Comment on above: Arrived Start: 01-29-2025 End: 01-29-2025 Patient encounter procedure 01/29/2025 4:15 PM EDT Office Visit GIANNA TAMEZ [address] [place] [address] Akira Gavin DO [address] [place], [place] [id number] GIANNA TAMEZ Start: 01-25-2025 End: 01-25-2025 Social Work 01/25/2025 1:00 PM EDT Social Work [facility]NR [address] [place] [facility] [place] [address] Isaak Berger LSW [facility] FNR Start: 01-18-2025 End: 01-18-2025 Social Work 01/18/2025 1:00 PM EDT Social Work [facility] FNR [address] [place] [facility] [place] [address] Isaak Berger LSW [facility] FNR Start: 01-11-2025 End: 01-11-2025 Social Work 01/11/2025 1:00 PM EDT Social Work [facility] FNR [address] [place] [facility] [place] [address] Isaak Berger LSW [facility] FNR Start: 01-04-2025 End: 01-04-2025 Social Work 01/04/2025 11:00 AM EST Social Work [facility]NR BH [address] [place] [facility] [place] [address] Isaak Berger LSW [facility] FNR Start: 01-03-2025 End: 01-03-2025 Patient encounter procedure [facility] [place] [address] Start: 12-28-2024 End: 12-28-2024 Social Work 12/28/2024 11:00 AM EST Social Work [facility] FNR BH [address] [place] [facility] [place] [address] Isaak Berger LSW [facility] FNR Start: 12-26-2024 End: 12-26-2024 Patient encounter procedure 12/26/2024 9:00 AM EST Office Visit [facility] [place] [address] Yue Perez, PA [address] [place] [address] [facility] BCP OB Start: 12-13-2024 End: 12-13-2024 Patient encounter procedure 12/13/2024 4:30 PM EST Office Visit [facility] [address] [place] [address] Chelsea Virk, MEDICAL EDUCATION SPECIALIST-TUBE FITTER [address] [place] [address] [facility] CI BH Start: 12-04-2024 End: 12-04-2024 Patient encounter procedure 12/04/2024 3:00 PM EST Office Visit [facility] OB [address] [place] [address] Yue Perez, PA [address] [place] [address] [facility] BCP OB Start: 11-22-2024 End: 11-22-2024 Telemedicine consultation with patient 11/22/2024 3:30 PM EST Telemedicine [facility] [address] [place] [address] Chelsea Virk, MEDICAL EDUCATION SPECIALIST-TUBE FITTER [address] [place] [address] [facility] BH Start: 11-06-2024 End: 11-06-2024 Patient encounter procedure 11/06/2024 4:30 PM EST Office Visit [facility] [address] [place] [address] Chelsea Virk, MEDICAL EDUCATION SPECIALIST-TUBE FITTER [address] [place] [address] [facility] CI BH Start: 09-12-2024 End: 09-12-2024 Patient encounter procedure 09/12/2024 8:40 AM EST Office Visit [facility] [place] [address] [place] [address] Ericka Aguilar NP [address] [place] [address] [facility] [place] [address] Start: 09-05-2024 End: 09-05-2024 Patient encounter procedure 09/05/2024 4:00 PM EST Office Visit [facility] CI [address] [place] [address] Chelsea Virk, MEDICAL EDUCATION SPECIALIST-TUBE FITTER [address] [place] [address] N[facility]S CI Start: 08-09-2024 End: 08-09-2024 Patient encounter procedure 08/09/2024 9:00 AM EDT Office Visit [facility] CI [address] [place] [address] Chelsea Virk, MEDICAL EDUCATION SPECIALIST-TUBE FITTER [address] [place] [address] Arrived [facility] CI Comment on above: Arrived Start: 08-01-2024 End: 08-01-2024 Patient encounter procedure 08/01/2024 9:00 AM EDT Office Visit [facility] CI [address] [place] [address] Chelsea Virk, MEDICAL EDUCATION SPECIALIST-TUBE FITTER [address] [place] [address] N[facility]S CI Start: 07-17-2024 End: 07-17-2024 Patient encounter procedure [facility] [place] [address] Comment on above: Chronic migraine wit hout aura without status migrainosus, not intractable (CMS/HCC) (Primary Dx); Tremor Start: 07-13-2024 End: 07-13-2024 [facility] Comment on above: Arrived Start: 07-11-2024 End: 07-11-2024 Patient encounter procedure 07/11/2024 9:00 AM EDT Office Visit [facility] [place] [address] [place] [address] Ericka Aguilar, QUALITY ASSURANCE PROJECT MANAGER [address] [place] [address] [facility] [place] [address] Start: 07-04-2024 End: 07-04-2024 Social Work 07/04/2024 8:00 AM EDT Social Work [facility] [address] [place] [address] Isaak Berger LSW [facility] Comment on above: Arrived Start: 07-01-2024 Covid-19 Vaccine () Covid-19 Vaccine () [facility] Start: 07-01-2024 Influenza vaccination Influenza Vacc ine (#1) [facility] Start: 2007 Screening for malign ant neoplasm of cervix Cervical Cancer Screening [facility] Start: 2004 Anxiety Screening Anxiety Screening [facility] Start: 2004 Depression Screening Depression Scre ening [facility] Start: 2004 Hepatitis C screening [facility] C [facility] Start: 2004 HIV screening HIV Screening [facility] Cytology Cervical or vaginal smear or scraping study Pap Smear Pathology and Cytology Routine Well woman exam with routine gynecological exam Ordered: 12/26/2024 [facility] Work Phone: Comment on above: Ordered: 12/26/2024 Human papilloma viru s DNA [Presence] in Unspecified specimen by Probe with amplification HPV DNA probe, amplified Microbiology Routine Well woman exam with routine gynecological exam Ordered: 12/26/2024 [facility] Comment on above: Ordered: 12/26/2024 Immunizations Immunization Date Immunization Notes Care Provider Chaim kumar 08-04-2022 influenza virus vaccine, unspecified formulation Lester Mcelroy [facility] 08-04-2022 influenza, injectabl e, quadrivalent, preservative free Isaak Berger [facility] 07-13-2022 SARS-CoV-2 (COVID-19 ) mRNA-1273 vaccine Mohamad Mouchli [facility] 11-22-2021 COVID-19 Vaccine Moderna - Documentation Purposes Only Ame Zaragoza Other [facility] 08-13-2020 influenza virus vaccine, unspecified formulation Mohamad Mouchli [facility] 08-07-2020 influenza virus vaccine, unspecified formulation Mohamad Mouchli [facility] 08-07-2020 influenza, injectabl e, quadrivalent, preservative free Isaak Berger [facility] 09-06-2019 influenza, injectabl e, quadrivalent, preservative free Isaak Berger [facility] 08-09-2019 hepatitis B vaccine, adult dosage Mohamad Mouchli [facility] 08-05-2019 influenza virus vaccine, unspecified formulation Mohamad Mouchli [facility] 08-05-2019 influenza, injectabl e, quadrivalent, preservative free Isaak Berger [facility] 03-15-2019 hepatitis B vaccine, adult dosage Mohamad Mouchli [facility] 03-15-2019 varicella virus vaccine Moha mad Mouchli [facility] 02-08-2019 hepatitis B vaccine, adult dosage Mohamad Mouchli [facility] 02-08-2019 tetanus toxoid, redu emmett diphtheria toxoid, and acellular pertussis vaccine, adsorbed Mohamad Mouchli [facility] 02-08-2019 varicella virus vaccine Moha mad Mouchli [facility] 01-07-2019 influenza virus vaccine, unspecified formulation Lester Mcelroy [facility] 01-07-2019 influenza, seasonal, injectable, preservative free Isaak Berger [facility] Healthcare Payers Date Payer Category Payer Managed Care HMO (unspecified) [id number] 2021 Private Health Insurance [id number] 1986 Unknown [id number] 1986 Unknown [id number] 1986 Unknown [id number] 1986 Unknown [id number] 1986 Unknown [id number] 1986 Unknown [id number] 1986 Unknown [id number] 2.16.840.1.354249.3.579.2.593 1985 Unknown [id number] 2.16.840.1.396995.3.579.2.727 1985 Unknown [id number] 2.16.840.1.855357.3.579.2.1259 1986 Unknown [id number] 2.16.840.1.362850.3.579.2.1259 1986 Unknown [id number] 2.16.840.1.883410.3.579.2.1258 1986 Unknown [id number] 2.16.840.1.158631.3.579.2.1258 1986 Unknown [id number] 2.16.840.1.781991.3.579.2.1258 1986 Unknown [id number] 2.16.840.1.081923.3.579.2.1258 1986 Unknown [id number] 2.16.840.1.717001.3.579.2.1258 1986 Unknown [id number] 2.16840.1.296283.3.579.2.1258 1986 Unknown [id number] 2.840.1.629162.3.579.2.1258 1986 Unknown [id number] 2.840.1.070690.3.579.2.1258 1986 Unknown [id number] 2.840.1.699475.3.579.2.1258 1986 Unknown [id number] 2.840.1.111134.3.579.2.1258 1986 Unknown [id number] 2.840.1.414930.3.579.2.1258 1986 Unknown [id number] 2.840.1.845136.3.579.2.1258 1986 Unknown [id number] 2.16840.1.801184.3.579.2.1258 1986 Unknown [id number] 2.16.840.1.015922.3.579.2.1258 1986 Unknown [id number] 2.16.840.1.488232.3.579.2.1258 1986 Unknown [id number] 2.16840.1.033225.3.579.2.1258 1986 Unknown [id number] 2.16.840.1.762496.3.579.2.9 1986 Unknown [id number] 2.16.840.1.143180.3.579.2.9 1986 Unknown [id number] 2.16.840.1.033726.3.579.2.9 1986 Unknown [id number] 2.16.840.1.030402.3.579.2.1258 1986 Unknown [id number] 2.16.840.1.567047.3.579.2.1258 1986 Unknown [id number] 2.16.840.1.412350.3.579.2.1258 1986 Unknown [id number] 2.16.840.1.653782.3.579.2.6 1986 Unknown [id number] 2.16840.1.593205.3.579.2. 1986 Unknown [id number] 2.16.840.1.243831.3.579.2. 1986 Unknown [id number] 2.16.840.1.152983.3.579.2. 1986 Unknown [id number] 2.16.840.1.403876.3.579.2.727 1959 Private Health Insurance [id number] Private Health Insurance [id number] 2.16.840.1.182757.19 Self-pay Self Pay [id number] Unknown [id number] Unknown [id number] Unknown [id number] Social History Date Type Detail Facility Start: 11-25-2020 End: 03-14-2025 Tobacco smoking status NHIS Never smoked tobacco (finding) [facility] Start: 1985 Sex Assigned At Female F [facility] Start: 07-17-2024 End: 01-30-2025 Sex Assigned At [facility] Tobacco smoking status Never [facility] Start: 03-22-2023 Tobacco use and exposure Smokeless tobacco non-user [facility] Start: 07-17-2024 End: 02-05-2025 Alcoholic beverage intake Lifetime non-drinker (finding) [facility] Start: 07-17-2024 End: 01-30-2025 History of Social function [facility] Start: 03-19-2023 Education 21 [facility] Start: 03-19-2023 Alcohol Comment caffeine intak e: 1-2 cups per day [facility] Start: 1985 Sex assigned at Not on file [facility] Start: 10-05-2013 End: 09-19-2024 Sex Female (finding) [facility] Tobacco smoking stat [place] Tobacco smoking consumption unknown [facility] Sexual Orientation [facility] Medical Equipment Procedure Code Equipment Code Equipment Origin al Text Equipment Identifier Dates Test Strips as directed Start: 09-02-2022 Goals Date Patient Goal Desired Activity /State Functional Status Date Assessment Result Facility 03-14-2025 Functional Status N/A [facility] 04-09-2024 Functional Status N/A [facility] Clinical Notes 08-22-2021 to 04-08-2025 Note Date & Type Note Facility 04-08-2025 Evaluation + Plan note Extrac carmen from: Title:[facility]ES Post-operative Note - Endo Author:Mickie Sands MD Date:04/08/25 Plan Transfer/Discharge: Transfer/Discharge Discharge when meets criteria ( From PACU to Ambulatory Surgery Unit, and To home ). Extracted from: Title:[facility]ES Pre-operative Note - Endo Author:Mickie Villafana MD Date:04/08/25 Plan [place] [employer]esthesiologists (ASA) physical status classification: Class II. Anesthetic Preoperative Plan: Anesthesia General, and -TIVA. Future Appointments Appointment Date:05/16/2025 08:15:00 AM Scheduled Provider:Lester Mcelroy MD Location:[facility] Appointment Type:[facility] Follow Up [facility] 06-09-2025 Hospital Discharge instructions Patient Education 04/08/2025 10:33:08 Hiatal Hernia Hiatal Hernia A hiatal hernia occurs when part of the stomach slides above the muscle that separates the abdomen from the chest (diaphragm). A person can be born with a hiatal hernia (congenital), or it may develop over time. In almost all cases of hiatal hernia, only the top part of the stomach pushes through the diaphragm. Many people have a hiatal hernia with no symptoms. The larger the hernia, the more likely it is that you will have symptoms. In some cases, a hiatal hernia allows stomach acid to flow back into the tube that carries food from your mouth to your stomach (esophagus). This may cause heartburn symptoms. The development of heartburn symptoms may mean that you have a condition called gastroesophageal reflux disease (GERD). What are the causes? This condition is caused by a weakness in the opening (hiatus) where the esophagus passes through the diaphragm to attach to the upper part of the stomach. A person may be born with a weakness in thehiatus, or a weakness can develop over time. What increases the risk? This condition is more likely to develop in: Older people. Age is a major risk factor for a hiatal hernia, especially if you are over the age of50. women. People who are overweight. People who have frequent constipation. What are the signs or symptoms? Symptoms of this condition usually develop in the form of GERD symptoms. Symptoms include: Heartburn. Upset stomach (indigestion). Trouble swallowing. Coughing or wheezing. Wheezing is making high-pitched whistling sounds when you breathe. Sore throat. Chest pain. Nausea and vomiting. How is this diagnosed? This condition may be diagnosed during testing for GERD. Tests that may be done include: X-rays of your stomach or chest. An upper gastrointestinal (GI) series. This is an X-ray exam of your GI tract that is taken after you swallow a chalky liquid that shows up clearly on the X-ray. Endoscopy. This is a procedure to look into your stomach using a thin, flexible tube that has a tiny camera and light on the end of it. How is this treated? This condition may be treated by: Dietary and lifestyle changes to help reduce GERD symptoms. Medicines. These may include: ?Buyv-wpe-ivgeyzz antacids. ?Medicines that make your stomach empty more quickly. ?Medicines that block the production of stomach acid (H2 blockers). ?Stronger medicines to reduce stomach acid (proton pump inhibitors). Surgery to repair the hernia, if other treatments are not helping. If you have no symptoms, you may not need treatment. Follow these instructions at home: Lifestyle and activity Do not use any products that contain nicotine or tobacco. These products include cigarettes, chewing tobacco, and vaping devices, such as e-cigarettes. If you need help quitting, ask your health careprovider. Try to achieve and maintain a healthy body weight. Avoid putting pressure on your abdomen. Anything that puts pressure on your abdomen increases the amount of acid that may be pushed up into your esophagus. ?Avoid bending over, especially after eating. ?Raise the head of your bed by putting blocks under the legs. This keeps your head and esophagus higher than your stomach. ?Do not wear tight clothing around your chest or stomach. ?Try not to strain when having a bowel movement, when urinating, or when lifting heavy objects. Eating and drinking Avoid foods that can worsen GERD symptoms. These may include: ?Fatty foods, like fried foods. ?[place] fruits, like oranges or lemon. ?Other foods and drinks that contain acid, like orange juice or tomatoes. ?Spicy food. ?Chocolate. Eat frequent small meals instead of three large meals a day. This helps prevent your stomach from getting too full. ?Eat slowly. ?Do not lie down right after eating. ?Do not eat 1 2 hours before bed. Do not drink beverages with caffeine. These include cola, coffee, cocoa, and tea. Do not drink alcohol. General instructions Take xmsc-iio-vycbpib and prescription medicines only as told by your health care provider. Keep all follow-up visits. Your health care provider will want to check that any new prescribed medicines are helping your symptoms. Contact a health care provider if: Your symptoms are not controlled with medicines or lifestyle changes. You are having trouble swallowing. You have coughing or wheezing that will not go away. Your pain is getting worse. Your pain spreads to your arms, neck, jaw, teeth, or back. You feel nauseous or you vomit. Get help right away if: You have shortness of breath. You vomit blood. You have bright red blood in your stools. You have black, tarry stools. These symptoms may be an emergency. Get help right away. Call 911. Do not wait to see if the symptoms will go away. Do not drive yourself to the hospital. Summary A hiatal hernia occurs when part of the stomach slides above the muscle that separates the abdomen from the chest. A person may be born with a weakness in the hiatus, or a weakness can develop over time. Symptoms of a hiatal hernia may include heartburn, trouble swallowing, or sore throat. Management of a hiatal hernia includes eating frequent small meals instead of three large meals a day. Get help right away if you vomit blood, have bright red blood in your stools, or have black, tarry stools. This information is not intended to replace advice given to you by your health care provider. Make sure you discuss any questions you have with your health care provider. Document Revised: 12/14/2022 Document Reviewed: 12/14/2022 [employer] Patient Education 2023 [employer]. 04/08/2025 10:18:25 Colonoscopy, Care After Surgery [facility] (CUSTOM) Colonoscopy Care After Surgery Please read the instructions outlined below and refer to this sheet in the next few weeks. These discharge instructions provide you with general information on caring [facility] Your doctor may also give you specific instructions. While your treatment has been planned according to the most current medical practices available, unavoidable complications occasionally occur. If you have any problems or questions after discharge, please call your doctor. ACTIVITY You may resume your regular activity, but move at a slower pace for the next 24 hours. Take frequent rest periods for the next 24 hours. Walking will help get rid of the air and reduce the bloated feeling in your abdomen (belly). No driving for 24 hours (because of the anesthesia (medicine) used during the test). You may shower. Do not sign any important legal documents or operate any machinery for 24 hours (because of the anesthesia used during the test). NUTRITION Drink plenty of fluids. You may resume your normal diet as instructed by your doctor. Begin with a light meal and progress to your normal diet. Heavy or fried foods are harder to digestand may make you feel nauseated (sick to your stomach). Avoid alcoholic beverages for 24 hours or as instructed. MEDICATIONS You may resume your normal medications unless your doctor tells you otherwise. WHAT YOU CAN EXPECT TODAY Some feelings of bloating in the abdomen. Passage of more gas than usual. Spotting of blood in your stool or on the toilet paper. FOLLOW-UP Your doctor will discuss the results of your test with you. SEEK IMMEDIATE MEDICAL ATTENTION IF: There is more than a spotting of blood in your stool. There is abdominal distention (your abdomen is swollen). There is vomiting. You have a temperature over 101.5 F. There is abdominal pain or discomfort that is severe or gets worse throughout the day. Follow Up Care 03/14/2025 09:38:27 With:Navi MACK, Lester Godoy, [facility], [facility] Address: [address] [place] [address], [address] [place] [address]- [phone] When: Unknown Comments:Office will call Date and Time of Follow-up Appt if needed. [facility] 06-09-2025 NoteProgress Note-Physician Patient: NOBLE CASTILLO Age: 40 years Sex: Female : 1985 Associated Diagnoses: None Author: Ledy MACK, Mickie Avila. Postoperative Information Postoperative disposition: Postoperative disposition: Home. Optimetrix number: Optimetrix number [id number]. Anesthetic utilized: Monitored anesthesia care. Health Status Allergies: Allergic Reactions (All) Severity Not Documented Adhesive Bandage- Unknown. Betadine- Unknown. Codeine- Unknown. Current medications: (Selected) Inpatient Medications Ordered Lactated Ringers IV Monica 1000 mL 1,000 mL: 1,000 mL, IV, 100 mL/hr, Routine, Start date 04/08/25 9:25:00 EDT, 10 hour(s), Total volume (mL): 1,000, 90.9 kg, 2.02, m2 Sodium Chloride 0.9% IV Monica 1000 mL 1,000 mL: 1,000 mL, IV, 20 mL/hr, Routine, Start date 04/08/25 6:37:00 EDT, 50 hour(s), Total volume (mL): 1,000, 90.9 kg, 2.02, m2 Zofran 4 mg/2 mL Injection: 4 mg = 2 mL, Injection, IV Push, Once PRN Nausea/Vomiting, Routine, Start date 04/08/25 9:25:00 EDT, 04/08/25 9:25:00 EDT promethazine additive 12.5 mg + Sodium Chloride 0.9% IV Monica 50 mL (INT) 50 mL: Injection, IV Piggyback, Once PRN Nausea/Vomiting, Routine, Start date 04/08/25 9:25:00 EDT, 151.5 mL/hr, Infuse over 20minute(s) Prescriptions Prescribed Colestid 1 g Tab: 2 gm = 2 tab(s), Oral, BID, with a full glass of water, # 360 tab(s), Refills(s) 0, Pharmacy: [facility]/pharmacy #[id number], 162, cm, 03/14/25 8:51:00 EDT, Height/Length Dosing, 90.9, kg, 03/14/25 8:51:00 EDT, Weight Dosing Documented Medications Documented Ajovy 225 mg/1.5 mL subcutaneous solution: mg, SubCutaneous, qMonth, Refills(s) 0, Migraine headache Lamictal 150 mg Tab: mg tab(s), Oral, BID, Refills(s) 0, Other (see comment) Pepcid 40 mg Tab: 40 mg = 1 tab(s), Oral, BID, # 90 tab(s), Refills(s) 5 Probiotic Formula (Bacillus Coagulans): 1 cap(s), Oral, Daily, Refill(s) 0, Prophylaxis Tylenol: See Instructions, Oral, Refills(s) 0, Pain/Fever Zoloft: Oral, Daily, Refills(s) 0, Depression famotidine 40 mg Tab: mg tab(s), Oral, Once a day (at bedtime), Refills(s) 0, Control of stomach acid rizatriptan 10 mg Dis Tab: 10 mg = 1 tab(s), Oral, Daily, Refills(s) 0, Prophylaxis, Home Medications (9) Active Ajovy 225 mg/1.5 mL subcutaneous solution , SubCutaneous, qMonth Colestid 1 g Tab 2 gm = 2 tab(s), Oral, BID famotidine 40 mg Tab , Oral, Once a day (at bedtime) Lamictal 150 mg Tab , Oral, BID Pepcid 40 mg Tab 40 mg = 1 tab(s), Oral, BID Probiotic Formula (Bacillus Coagulans) 1 cap(s), Oral, Daily rizatriptan 10 mg Dis Tab 10 mg = 1 tab(s), Oral, Daily Tylenol See Instructions Zoloft , Oral, Daily Problem list: All Problems Abdominal bloating / SNOMED CT 805429090 / Confirmed Chronic diarrhea / SNOMED CT 375710844 / Confirmed Chronic GERD / SNOMED CT 019096287 / Confirmed Depression / SNOMED CT 26533204 / Confirmed 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 Heartburn / SNOMED CT 61436182 / Confirmed Hypoglycemia / SNOMED CT 145826838 / Confirmed Kidney stone / SNOMED CT 189532003 / Confirmed Lower abdominal pain / SNOMED CT 25502444 / Confirmed Migraine / SNOMED CT 10583807 / Confirmed S/P cholecystectomy / SNOMED CT 6924636663 / Confirmed Physical Examination Vital Signs 04/08/2025 10:27 EDT Heart Rate Monitored 84 bpm Respiratory Rate Monitored 19 br/min 04/08/2025 10:25 EDT Respiratory Rate Monitored 20 br/min 04/08/2025 10:25 EDT Heart Rate Monitored 77 bpm 04/08/2025 10:25 EDT Systolic Blood Pressure 114 mmHg Diastolic Blood Pressure 70 mmHg Mean Arterial Pressure, Cuff 85 mmHg 04/08/2025 10:18 EDT Heart Rate Monitored 82 bpm Respiratory Rate Monitored 18 br/min 04/08/2025 10:18 EDT SpO2 100 % 04/08/2025 10:15 EDT Heart Rate Monitored 76 bpm SpO2 100 % 04/08/2025 10:15 EDT Respiratory Rate Monitored 14 br/min 04/08/2025 10:15 EDT Systolic Blood Pressure 117 mmHg Diastolic Blood Pressure 76 mmHg Mean Arterial Pressure, Cuff 90 mmHg 04/08/2025 10:10 EDT SpO2 99 % 04/08/2025 10:10 EDT Heart Rate Monitored 75 bpm 04/08/2025 10:10 EDT Respiratory Rate Monitored 15 br/min 04/08/2025 10:10 EDT Systolic Blood Pressure 107 mmHg Diastolic Blood Pressure 64 mmHg Mean Arterial Pressure, Cuff 78 mmHg 04/08/2025 10:08 EDT SpO2 98 % 04/08/2025 10:08 EDT Heart Rate Monitored 78 bpm 04/08/2025 10:05 EDT SpO2 97 % 04/08/2025 10:05 EDT Heart Rate Monitored 80 bpm 04/08/2025 10:05 EDT Respiratory Rate Monitored 16 br/min 04/08/2025 10:05 EDT Systolic Blood Pressure 102 mmHg Diastolic Blood Pressure 60 mmHg Mean Arterial Pressure, Cuff 74 mmHg 04/08/2025 10:03 EDT Systolic Blood Pressure 103 mmHg Diastolic Blood Pressure 67 mmHg 04/08/2025 10:03 EDT Temperature Temporal Artery 36.5 DegC Heart Rate Monitored 80 bpm Respiratory Rate Monitored 17 br/min Blood Pressure Location Left arm Mean Arterial Pressure, Cuff 79 mmHg SpO2 98 % 04/08/2025 10:00 EDT Heart Rate Monitored 88 bpm bpm Systolic Blood Pr (more content not included)...[facility] Comment on above:Result Comment: Electronically Signed By: Ledy MACK, Mickie Styles\.br\Date and Time Signed: 04/08/25 11:37 [id number] NotePatient Education - Text Colonoscopy Care After Surgery Please read the instructions outlined below and refer to this sheet in the next few weeks. These discharge instructions provide you with general information on caring for yourself after you leave thehospital. Your doctor may also give you specific instructions. While your treatment has been planned according to the most current medical practices available, unavoidable complications occasionally occur. If you have any problems or questions after discharge, please call your doctor. ACTIVITY You may resume your regular activity, but move at a slower pace for the next 24 hours. Take frequent rest periods for the next 24 hours. Walking will help get rid of the air and reduce the bloated feeling in your abdomen (belly). No driving for 24 hours (because of the anesthesia (medicine) used during the test). You may shower. Do not sign any important legal documents or operate any machinery for 24 hours (because of the anesthesia used during the test). NUTRITION Drink plenty of fluids. You may resume your normal diet as instructed by your doctor. Begin with a light meal and progress to your normal diet. Heavy or fried foods are harder to digestand may make you feel nauseated (sick to your stomach). Avoid alcoholic beverages for 24 hours or as instructed. MEDICATIONS You may resume your normal medications unless your doctor tells you otherwise. WHAT YOU CAN EXPECT TODAY Some feelings of bloating in the abdomen. Passage of more gas than usual. Spotting of blood in your stool or on the toilet paper. FOLLOW-UP Your doctor will discuss the results of your test with you. SEEK IMMEDIATE MEDICAL ATTENTION IF: There is more than a spotting of blood in your stool. There is abdominal distention (your abdomen is swollen). There is vomiting. You have a temperature over 101.5 F. There is abdominal pain or discomfort that is severe or gets worse throughout the day. Gastroenterology Hiatal Hernia A hiatal hernia occurs when part of the stomach slides above the muscle that separates the abdomen from the chest (diaphragm). A person can be born with a hiatal hernia (congenital), or it may develop over time. In almost all cases of hiatal hernia, only the top part of the stomach pushes through the diaphragm. Many people have a hiatal hernia with no symptoms. The larger the hernia, the more likely it is that you will have symptoms. In some cases, a hiatal hernia allows stomach acid to flow back into the tube that carries food from your mouth to your stomach (esophagus). This may cause heartburn symptoms. The development of heartburn symptoms may mean that you have a condition called gastroesophageal reflux disease (GERD). What are the causes? This condition is caused by a weakness in the opening (hiatus) where the esophagus passes through the diaphragm to attach to the upper part of the stomach. A person may be born with a weakness in thehiatus, or a weakness can develop over time. What increases the risk? This condition is more likely to develop in: ??? Older people. Age is a major risk factor for a hiatal hernia, especially if you are over the age of 50. ??? women. ??? People who are overweight. ??? People who have frequent constipation. What are the signs or symptoms? Symptoms of this condition usually develop in the form of GERD symptoms. Symptoms include: ??? Heartburn. ??? Upset stomach (indigestion). ??? Trouble swallowing. ??? Coughing or wheezing. Wheezing is making high-pitched whistling sounds when you breathe. ??? Sore throat. ??? Chest pain. ??? Nausea and vomiting. How is this diagnosed? This condition may be diagnosed during testing for GERD. Tests that may be done include: ??? X-rays of your stomach or chest. ??? An upper gastrointestinal (GI) series. This is an X-ray exam of your GI tract that is taken after you swallow a chalky liquid that shows up clearly on the X-ray. ??? Endoscopy. This is a procedure to look into your stomach using a thin, flexible tube that has atiny camera and light on the end of it. How is this treated? This condition may be treated by: ??? Dietary and lifestyle changes to help reduce GERD symptoms. ??? Medicines. These may include: ? Bjce-apc-kcjgkxb antacids. ? Medicines that make your stomach empty more quickly. ? Medicines that block the production of stomach acid (H2 blockers). ? Stronger medicines to reduce stomach acid (proton pump inhibitors). ??? Surgery to repair the hernia, if other treatments are not helping. If you have no symptoms, you may not need treatment. Follow these instructions at home: Lifestyle and activity ??? Do not use any products that contain nicotine or tobacco. These products include cigarettes, chewing tobacco, and vaping devices, such as e-cigarettes. If you need help quitting, ask your health care provider. ??? Try to achieve (more content not included)...[facility] 04-08-2025 NoteProgress Note-Physician Patient: NOBLE CASTILLO Age: 40 years Sex: Female : 1985 Associated Diagnoses: None Author: Ledy MACK, Mickie Avila. Preoperative Information Anesthesia Preop Info: Time patient last ate or drank 04/08/2025 00:00:00. Anesthesia history: Patient history: No prior anesthetic problems. Informed consent: Signed by patient. Including risks, benefits, and alternatives related to the: Anesthetic plan, Postoperative pain management plan. Re-evaluation prior to induction: Initial evaluation reviewed: No significant change. Review of Systems Respiratory: Negative except as documented in history of present illness. Cardiovascular: Negative except as documented in history of present illness. Health Status Allergies: Allergic Reactions (Selected) Severity Not Documented Adhesive Bandage- Unknown. Betadine- Unknown. Codeine- Unknown., Allergies (3) Active Severity Reaction codeine Unknown Adhesive Bandage Unknown Betadine Unknown Current medications: (Selected) Inpatient Medications Ordered Sodium Chloride 0.9% IV Monica 1000 mL 1,000 mL: 1,000 mL, IV, 20 mL/hr, Routine, Start date 04/08/25 6:37:00 EDT, 50 hour(s), Total volume (mL): 1,000, 90.9 kg, 2.02, m2 Prescriptions Prescribed Colestid 1 g Tab: 2 gm = 2 tab(s), Oral, BID, with a full glass of water, # 360 tab(s), Refills(s) 0, Pharmacy: [facility]/pharmacy #[id number], 162, cm, 03/14/25 8:51:00 EDT, Height/Length Dosing, 90.9, kg, 03/14/25 8:51:00 EDT, Weight Dosing Documented Medications Documented Ajovy 225 mg/1.5 mL subcutaneous solution: mg, SubCutaneous, qMonth, Refills(s) 0, Migraine headache Lamictal 150 mg Tab: mg tab(s), Oral, BID, Refills(s) 0, Other (see comment) Probiotic Formula (Bacillus Coagulans): 1 cap(s), Oral, Daily, Refill(s) 0, Prophylaxis Tylenol: See Instructions, Oral, Refills(s) 0, Pain/Fever Zoloft: Oral, Daily, Refills(s) 0, Depression famotidine 40 mg Tab: mg tab(s), Oral, Once a day (at bedtime), Refills(s) 0, Control of stomach acid rizatriptan 10 mg Dis Tab: 10 mg = 1 tab(s), Oral, Daily, Refills(s) 0, Prophylaxis, Home Medications (8) Active Ajovy 225 mg/1.5 mL subcutaneous solution , SubCutaneous, qMonth Colestid 1 g Tab 2 gm = 2 tab(s), Oral, BID famotidine 40 mg Tab , Oral, Once a day (at bedtime) Lamictal 150 mg Tab , Oral, BID Probiotic Formula (Bacillus Coagulans) 1 cap(s), Oral, Daily rizatriptan 10 mg Dis Tab 10 mg = 1 tab(s), Oral, Daily Tylenol See Instructions Zoloft , Oral, Daily , Medications (1) Active Scheduled: (0) Continuous: (1) Sodium Chloride 0.9% 1,000 mL 1,000 mL, IV, 20 mL/hr PRN: (0) Problem list: All Problems Abdominal bloating / SNOMED CT 057133744 / Confirmed Chronic diarrhea / SNOMED CT 635859617 / Confirmed Chronic GERD / SNOMED CT 180925809 / Confirmed Depression / SNOMED CT 79367437 / Confirmed Gastric erosion / SNOMED CT 102864805 / Confirmed Heartburn / SNOMED CT 48634310 / Confirmed Hypoglycemia / SNOMED CT 018218575 / Confirmed Kidney stone / SNOMED CT 299142754 / Confirmed Lower abdominal pain / SNOMED CT 08654272 / Confirmed Migraine / SNOMED CT 03591099 / Confirmed S/P cholecystectomy / SNOMED CT 1637803358 / Confirmed, Active Problems (11) Abdominal bloating Chronic diarrhea Chronic GERD Depression Gastric erosion Heartburn Hypoglycemia Kidney stone Lower abdominal pain Migraine S/P cholecystectomy Histories Past Medical History: No active or resolved past medical history items have been selected or recorded. Family History: COPD Father Heart failure Father Acute myocardial infarction Mother Procedure history: Foot ([id number]) on 12/01/2023 at 38 Years. Comments: 04/09/2024 13:32 Natalya Lopez flat foot Tonsillectomy (166228317). Cholecystectomy (47804523). Dilation and curettage (89918122). Nasal sinus (8388453). Comments: 03/14/2025 8:44 Natalya Lopez x2 wisdom teeth. Lump (3460763118). Comments: 03/14/2025 8:44 Natalya Lopez arm Hysterectomy (645685277). Laparoscope (719199018). Ear (7973732250). EGD - esophagogastroduodenoscopy (9706725041). Colonoscopy (054264169). Social History Social & Psychosocial Habits Alcohol 03/14/2025 Risk Assessment: Denies Alcohol Use Exercise 03/14/2025 Risk Assessment: Does not exercise Other 03/14/2025 Name: Caffeine- 1 cup daily Substance Abuse 03/14/2025 Risk Assessment: Denies Substance Abuse Tobacco 03/14/2025 Tobacco Use: Never (less than 100 in l Smokeless tobacco use: Never 03/14/2025 Tobacco Use: Never (less than 100 in l 03/14/2025 Tobacco Use: Never (less than 100 in l . Physical Examination Vital Signs (last 24 hrs) Last Charted Weight 90.9 kg (APR 08 08:13) Measurements from flowsheet : Measurements 04/08/2025 8:13 EDT Height/Length Measured 162 cm Height/Length Dosing 162.0 cm Weight Do (more content not included)...[facility] CenterComment on above:Result Comment: Electronically Signed By: Ledy MACK, Mickie Styles\.br\Date and Time Signed: 04/08/25 08:50 [id number] History of Present illness Narrative* JESICA Castellanos - 02/05/2025 8:20 AM EDT Images from the original note were not included. Chief Complaint Patient presents with Migraine Subjective Noble Castillo is a 39 y.o. female. Migraine -on ajovy -reports her migraines have been very minimal -notices when she is about due for her next injection -last for about 3.5 weeks -has not needed her maxalt -located near her nose and wrap around the left side of her face -nausea and vomiting are less frequent -admits light and sound sensitivity -denies any visual changes -sleeps well at night -averages 9 hours -wakes feeling rested TREMOR -on propranolol -decreased at last visit -states she has completely weaned at this time -reports tremor has subsided Review of Systems Constitutional: Negative for appetite change, fatigue and fever. Eyes: Negative for pain and visual disturbance. Respiratory: Negative for cough, shortness of breath and wheezing. Cardiovascular: Negative for chest pain, palpitations and leg swelling. Gastrointestinal: Negative for abdominal pain, constipation, diarrhea and nausea. Musculoskeletal: Negative for arthralgias, gait problem and myalgias. Neurological: Positive for headaches. Negative for dizziness, tremors and numbness. Psychiatric/Behavioral: Negative for hallucinations and suicidal ideas. Past Medical History: Diagnosis Date Adjustment disorder with mixed anxiety and depressed mood (CMS/HCC) 05/11/2024 Anxiety Bipolar affective disorder (CMS/HCC) Chronic otitis media both ears Depression with anxiety Fatigue Generalized hyperhidrosis Hyperthyroidism (CMS/HCC) IBS (irritable bowel syndrome) Migraines (CMS/HCC) PCOS (polycystic ovarian syndrome) Rheumatoid arthritis (CMS/HCC) Seasonal allergies Thyrotoxicosis (CMS/HCC) Tremor, unspecified Past Surgical History: Procedure Laterality Date BREAST LUMPECTOMY BREAST LUMPECTOMY CHOLECYSTECTOMY 2007 DILATION AND CURETTAGE ENDOMETRIAL ABLATION 07/2019 with diagnostic laparoscopy EXTERNAL EAR SURGERY FOOT SURGERY Left 02/2021 reconstruction FOOT SURGERY Right 12/2023 KELOID EXCISION Left ear LAPAROSCOPIC HYSTERECTOMY 10/2020 with BS NASAL ENDOSCOPY W/ [place] SINUPLASTY NASAL SINUS SURGERY 2014 OTHER SURGICAL HISTORY Gastrocnemius Recession PELVIC LAPAROSCOPY SINUS SURGERY 07/2018 X2 TONSILLECTOMY TOTAL ABDOMINAL HYSTERECTOMY WISDOM TOOTH EXTRACTION [...] Codeine, Povidone-iodine, and Wound dressing adhesive Vitals: 02/05/25 0810 BP: 118/78 Pulse: 81 Resp: 16 SpO2: 97% Body mass index is 33.81 kg/m . weight: 197 lb Neurologic exam: Mental status: Well nourished, [...] wrist extensors , wrist flexor , and engine testing supervisor strength 5/5. LUE strength deltoid , biceps , triceps , wrist extensors , wrist flexor , and engine testing supervisor strength 5/5. RLE strength iliopsoas, quadriceps, tibialis [...] LLE Knee reflex 1+. Price's sign negative. Gait: Normal. Heart: Regular rate and rhythm Review and summary of old records: MRI [...] unremarkable for secondary headache cause. Propranolol ER had provided benefit, however, the was continuing to report 2 to 3 migraines per week. The patient has had greater than a 50% reduction in her migraine days since starting treatment with CGRP inhibition, Ajovy. Propranolol has since been weaned, and she is doing well without the medication. Currently experiencing about3 breakthrough migraines per month. Patient states maxalt is effective in less than 40 minutes about 75% of the time. She has tried and failed imitrex in the past. PLAN: - Adjust Ajovy 225 mg subcutaneous to once every 28 days for migraine prevention. I counseled the patient on potential side effects including injection site reaction and allergic reaction. - Trial Ubrelvy 50mg as needed for migraine abortive therapy - Continue rizatriptan 10 mg as needed for migraine (ordered by PCP). Take no more than 2 doses in 24 hours - Recommended adequate hydration, sleep hygiene, regular exercise as tolerated and avoidance of triggers. - I counseled patient on potential medication side effects Tremor The patient reports an intermittent postural and intention tremor of the right hand. This is not apparent on clinical exam today. Suspicious for essential tremor versus side effect from Vraylar. The patient presents today and states that with stopping Vraylar this is seemingly resolved. She is doing well without propranolol. PLAN: - Continue close follow up with psychiatry. I will defer management of psychiatric medications to her psychiatrist Follow up in 6-8 weeks or sooner if symptoms worsen, fail to improve, or should a new neurological concern arise. Pt has been fully educated on their diagnosis, treatment options, follow up plan, and return instructions Kaylynn Jara PA-C documented in this encounterCarondelet HealthKjskqllfol69-98-2005 NoteHNO ID: [id number] Author: KIMBERLEE DENISE RT(Twila) Service: ? Author Type: Technologist Type: Progress [...] PATIENT PRESENTS WITH AN IMPLANTABLE OR ATTACHED MEDICAL EQUIPMENT SALES: No RADIOLOGY DEPARTMENT: General X-ray: Exam(s) Completed: Lower Extremity X-Ray(s): Foot, Right and Wt. Bearing and Heel, Right and Wt. Bearing PERIPHERAL IV DATA: Not applicable SIGNED BY: RT Huber(R) December 26, 2024 4:01 [facility]02-26-2025 History of Present illness Narrative* Kimberlee Denise RT(R) - 12/26/2024 4:01 PM EST Radiology Service Progress Note PATIENT NAME: Noble Castillo DATE OF SERVICE: December 26, 2024 TIME: 4:01 PM PATIENT IDENTITY VERIFICATION COMPLETED USING TWO (2) IDENTIFIERS: Name and Date of confirmedby patient verbally. FALL SCREENING: Has the patient had 2 falls in the last year or 1 fall with injury or currently using an Ambulatory Assistive Device (Walker, Cane, Wheelchair, Crutches, etc.)? No PATIENT GENDER DATA: Assigned female at . status: : No status:NO. PATIENT RELEVANT IMPLANT DATA REVIEWED: Not Applicable PATIENT PRESENTS WITH AN IMPLANTABLE OR ATTACHED MEDICAL EQUIPMENT SALES: No RADIOLOGY DEPARTMENT: General X-ray: Exam(s) Completed: Lower Extremity X- Ray(s): Foot, Right and Wt. Bearing and Heel, Right and Wt. Bearing PERIPHERAL IV DATA: Not applicable SIGNED BY: RT Huber(R) December 26, 2024 4:01 PM [facility]St[facility] NoteHNO ID: [id number] Author: GERALDINE BOLAÑOS DPM Service: ? Author [...] bilateral foot surgery by Dr. Fabienne Guerra, GER Treatment for pes plano valgus deformity Re [...] , HBA1C , VITD25 in the last 56659 hours. X-ray weight bearing RIGHT FOOT with calcaneus axial MRI reviewed from outside / non [facility] ASSESSMENT: Z98.890 History of foot surgery [...] counseling and/or coordinating care for the patient. [facility] History of Present illness Narrative* Geraldine Bolaños DPM - 12/26/2024 3:48 PM EST Patient Visit for Noble Castillo 1985 39 [...] complicated history of bilateral foot surgery by FRANK Oconnor Treatment for pes plano valgus deformity Re [...] , HBA1C , VITD25 in the last 43511 hours. X-ray weight bearing RIGHT FOOT with calcaneus axial MRI reviewed from outside / non [facility] ASSESSMENT: Z98.890 History of foot surgery [...] support posterior to lateral malleolus with A.S.O. (AnkleStabilizing Orthosis) If not improved recommend follow up and further work up May consider revision repair All questions were answered. Noble Castillo appeared to be well informed. Greater than 50% of the visit was spent face to face counseling and/or coordinating care for the patient. Geraldine Bolaños DPM documented in this encounterSt. [facility] History of Present illness Narrative* JESICA Tavera - 12/26/2024 9:00 AM EST Reason for Appointment: Patient ID: Noble Castillo is a 39 y.o. female who presents for Well Women Visit Patient presents today for Annual Exam. MEDICATIONS Current Outpatient Medications Medication Instructions fremanezumab (AJOVY) 225 mg, Subcutaneous, Every 30 days lamoTRIgine (LAMICTAL) 150 mg, Oral, Daily Protonix 40 mg, Daily before breakfast rizatriptan SHAPING MACHINE TENDER (Maxalt-SHAPING MACHINE TENDER) 10 MG disintegrating tablet dissolve 1 tablet [...] II disorder, most recent episode major depressive ([facility]/HCC) 02/28/2023 Generalized anxiety disorder (CMS/HCC) 02/28/2023 Tremor of right hand 02/28/2023 Marital/partner relational problem 05/11/2024 Ataxia 07/17/2024 Chronic migraine without aura without status migrainosus, not intractable (CMS/HCC) 07/17/2024 Tremor 07/17/2024 Resolved Ambulatory Problems Diagnosis [...] nursing note reviewed. Exam conducted with a vacuum cleaner repair person present. Vitals: Estimated body mass index is [...] behalf of: JESICA Tavera documented in this encounterCarondelet [id number] Telephone encounter Note* Telephone Encounter - Beckie Scott - 12/21/2024 3:41 PM EST Pt made an appt with our counselor Isaak Berger for 12/28/2024. I then noticed that her last referral was approved in March of 2024 and it says it in September of 2024. I called the patient to let her know that she will need a new referral. She is calling the dr henson asking her to fax a new referral [...] in our fax box. Thank you :) Carondelet [id number] Miscellaneous Notes* Telephone Encounter - Beckie Scott - 12/21/2024 3:41 PM EST Pt made an appt with our counselor Isaak Berger for 12/28/2024. I then noticed that her last referral was approved in March of 2024 and it says it in September of 2024. I called the patient to let her know that she will need a new referral. She is calling the dr henson asking her to fax a new referral [...] box. Thank you :) documented in this encounterCarondelet [id number] History of Present illness Narrative* Chelsea Virk, MEDICAL EDUCATION SPECIALIST-TUBE FITTER - 12/18/2024 4:00 PM EST Images from the original note were not [...] disorder with mixed anxiety and depressed mood ([facility]/HCC) 05/11/2024 Anxiety Chronic otitis media both ears [...] II disorder, most recent episode major depressive ([facility]) MAME Psych Medication List Lamictal 150mg po every day Sertraline 150mg daily Discontinue Caplyta. Trazodone 50mg 1-2 tabs. To notify office if worsening of depression or anxiety. Patient was seen Face to Face, Reviewed chart documents and documentation, Visit time : 25min Follow up 6 weeks documented in this encounterCarondelet [id number] History of Present illness Narrative* MARYELLEN Moreland - 11/22/2024 4:30 PM EST Images from the original note were not included. Noble aCstillo is a 39 y.o. female presents for [...] since lowered. Now on lower dose but moodhas deteriorated. No longer night sweats, no longer [...] assess effectiveness of caplyta documented in this encounterCarondelet [id number] Telephone encounter Note* Telephone Encounter - Danyelle Gates - 11/06/2024 3:35 PM EST Patient left a voicemail needing a refill on Vraylar 1.5 mg sent to [facility] pharmacy. Patient has a follow up on 11/22. [facility]let [id number] Miscellaneous Notes* Telephone Encounter - Danyelle Gates - 11/06/2024 3:35 PM EST Patient left a voicemail needing a refill on Vraylar 1.5 mg sent to [facility] pharmacy. Patient has a follow up on 11/22. documented in this encounterCarondelet [id number] History of Present illness Narrative* Christine Helton NP - 11/01/2024 4:20 PM EST Images from the original note were not included. Chief Complaint Patient presents with Migraine Tremors Subjective Noble Castillo is a 39 y.o. female. The patient presents today for follow up to migraine and tremor. She was started on Ajovy which wasvery helpful, admits to greater than a 50% reduction in her migraine frequency. States that she is currently experiencing about 3 migraines per month. These start near her nose and wrap around the left side of her face. They are associated with nausea, vomiting, and increased sensitivity to light an d sound. She states rizatriptan typically aborts her [...] wrist extensors , wrist flexor , and engine testing supervisor strength 5/5. LUE strength deltoid , biceps , triceps , wrist extensors , wrist flexor , and engine testing supervisor strength 5/5. RLE strength iliopsoas, quadriceps, tibialis [...] Knee reflex 1+. Price's sign negative. Coordination: Cazrhc-df-ysod testing normal. Rapid alternating movements are normal. [...] since starting treatment with CGRP inhibition, Ajovy. Currentlyexperiencing about 3 breakthrough migraines per month which [...] fail to improve, or should a new neurologicalconcern arise. Pt has been fully educated on their diagnosis, treatment options, follow up plan, and return instructions documented in this encounterCarondelet HealthInjiifqazm34-51-1134 History of Present illness Narrative* Chelsea Virk, MEDICAL EDUCATION SPECIALIST-TUBE FITTER - 09/05/2024 4:00 PM EST Images from the original note were not [...] ENDOSCOPY W/ [place] SINUPLASTY NASAL SINUS SURGERY 2015 OTHER SURGICAL HISTORY Gastrocnemius Recession PELVIC LAPAROSCOPY [...] and Time Memory/Concentration Short term intact and side seam machine operator intact Insight/Judgement Good OBJECTIVE: Visit Vitals OB [...] 25min F/U 2 months documented in this encounterCarondelet [id number] History of Present illness Narrative* MARYELLEN Moreland - 08/09/2024 9:00 AM EDT Images from the original note were not [...] 35min F/U- 4 weeks documented in this encounterCarondelet [id number] Telephone encounter Note* Telephone Encounter - Ericka Aguilar NP - 07/17/2024 11:42 AM EDT Acknowledged, thank you. Carondelet [id number] Miscellaneous Notes* Telephone Encounter - Ericka Aguilar NP - 07/17/2024 11:42 AM EDT Acknowledged, thank you. * Telephone Encounter - Susan Bronson MA - 07/17/2024 11:01 AM EDT Yes, it is in media under ED Report 08 16 24 * Telephone Encounter - Ericka Aguilar NP - 07/17/2024 9:36 AM EDT Are you able to request records from the patient's emergency department visits at [facility] for me to review please? documented in this encounterCarondelet [id number] Telephone encounter Note* Telephone Encounter - Susan Bronson MA - 07/17/2024 11:01 AM EDT Yes, it is in media under ED Report 08 24 Car[facility]let [id number] Telephone encounter Note* Telephone Encounter - Ericka Aguilar NP - 07/17/2024 9:36 AM EDT Are you able to request records from the patient's emergency department visits at [facility] for me to review please? Car[facility]let [id number] History of Present illness Narrative* Ericka Aguilar NP - 07/17/2024 8:20 AM EDT Images from the original note were not included. Ericka Aguilar NP Chief Complaint Patient presents with Migraine Tremors Subjective Noble Castillo is a 39 y.o. female. HPI The patient presents today for follow up. She was most recently evaluated in our office in 03/2023.At the prior neurology appointment, propranolol dose was increased. The patient is taking propranolol ER 160 mg by mouth once a day. She denies any apparent side effects. The patient has had approximately 2 to 3 migraines per week recently. These start near her nose andwrap around the left side of her face. [...] minutes of use. She has also tried azdl-iah-oaswniy medications and essential oils for her symptoms with minimal relief. Thepatient has been to [facility] ([facility]) Emergency Department 3 times within the past year for migraines which were not relieved by rizatriptan. She states [facility] did not complete imaging at any [...] a day. She follows with psychiatry in [place], [place]. She states her psychiatrist attempted to take her off of Vraylar once in the past, this led toa manic episode. She denies any further concerns. [...] MG EC tablet; Generic drug: pantoprazole rizatriptan SHAPING MACHINE TENDER 10 MG disintegrating tablet; Commonly known as: Maxalt-SHAPING MACHINE TENDER semaglutide 2 MG/1.5ML solution pen-injector; Commonly known [...] wrist extensors , wrist flexor , and engine testing supervisor strength 5/5. LUE strength deltoid , biceps , triceps , wrist extensors , wrist flexor , and engine testing supervisor strength 5/5. RLE strength iliopsoas, quadriceps, tibialis [...] reflex 1+. LLE Knee reflex 1+. Coordination: Estsyx-fh-vnfr testing normal. Rapid alternating movements are normal. [...] site reaction and allergic reaction. I educated thepatient on rotating injection sites. She verbalizes understanding [...] in detail. All questions answered. The patient verbalizesunderstanding and is agreeable to the plan. Discussion in layman's terms. Follow up in the office within 1 to 2 months; sooner if needed for new or worsening symptoms. Ericka Aguilar NP [facility] documented in this [facility]09-17-2024 Instructions* Patient Instructions* Ericka Aguilar NP - 07/17/2024 8:20 AM EDT - Start Ajovy 225 mg subcutaneous once every 30 days for migraine prevention documented in this [facility]06-12-2024 Evaluation + Plan note Diagnostic Tests Pending * Calprotectin, Fecal 04/11/24 * Enteric Panel by PCR 04/11/24 * O & P Exam, Routine 04/11/24 * Pancreatic Elastase, Fecal 04/11/24 [facility]06-10-2024 Evaluation + Plan note Future Scheduled Tests Laboratory* Pancreatic Elastase, Fecal 04/09/24 * Calprotectin, Fecal 04/09/24 * O & P Exam, Routine 04/09/24 * Clostridium Difficile PCR 04/09/24 * Enteric Panel by PCR 04/09/24 [facility] 06-10-2024 Evaluation + Plan note Diagnostic Tests Pending * Celiac Disease Comprehensive 04/09/24 Future Scheduled Tests Laboratory* Pancreatic Elastase, Fecal 04/09/24 * Calprotectin, Fecal 04/09/24 * O & P Exam, Routine 04/09/24 * Clostridium Difficile PCR 04/09/24 * Enteric Panel by PCR 04/09/24 [facility]12-18-2023 Evaluation note* Encounter Date Diagnosis Assessment Notes Treatment Notes Treatment Clinical Notes Sep, 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 warm compresses to affected area. otc tylenol prn. immediate eval if warning s/s, such as inability to open/close mouth or pain associated with fevers. otherwise f/u c dentistry for further eval and mgmt, discussed possibility of mouth guard for possible teeth grinding while sleeping. questions and concerns were addressed [facility] Other 10-11-2023 Evaluation note* Encounter Date Diagnosis [...] no improvement in 2 to 3 days [facility] Other 03-20-2023 Evaluation + Plan note Diagnostic Tests Pending * FSH and LH 01/17/23 [facility]11-09-2022 Evaluation note* Encounter Date Diagnosis Assessment Notes [...] medication before and did have stomach upset [facility] Other 11-03-2022 Evaluation note* Encounter Date Diagnosis Assessment Notes Treatment Notes Treatment Clinical Notes Aug, Dizziness (ICD-10 - R42) Aug, History of reactive hypoglycemia (ICD-10 - Z86.39) Start with keeping journal of symptoms. Take blood sugars when you experience symptoms. [facility] Other 09-10-2022 Evaluation note* Encounter Date Diagnosis Assessment Notes Treatment Notes Treatment Clinical Notes Jul, Intractable migraine without aura and without status migrainosus (ICD-10 - G43.019) Take medication as directed. Stay away from known triggers. Follow up with primary care provider or neurology if symptoms persist. Phenergan and Toradol Im given in office. Explained medication will cause drowsiness. [facility] Other 08-27-2022 Evaluation note* Encounter Date Diagnosis Assessment Notes Treatment Notes Treatment Clinical Notes May, Migraine aura without headache (ICD-10 - G43.109) [facility] Other 07-25-2022 Evaluation note* Encounter Date Diagnosis [...] (ICD-10 - G43.109) Continue medication as needed [facility] Other 12-03-2021 Evaluation note* Encounter Date Diagnosis [...] no improvement in 5 to 7 days [facility] Other 10-23-2021 Evaluation note* Encounter Date Diagnosis [...] Patient care instructions given in writting by [facility] Care At Home document [facility] Other Evaluation + Plan note Future Appointments Appointment Date:04/08/2025 10:00:00 AM Scheduled Provider: Location:[facility] Appointment Type:Surgery FT Appointment Date:05/16/2025 08:15:00 AM Scheduled Provider:Lester Mcelroy MD Location:[facility] Appointment Type:[facility] Follow Up [facility] Evaluation noteNo InformationNort hint Other Evaluation noteNo assessment information available [facility] Work Phone: Evaluation note* Diagnosis Bipolar [...] in this encounter [facility]* Diagnosis Well woman exam with routine gynecological exam Routine gynecological examination documented in this encounter [facility] Diagnosis History of foot surgery- Primary Personal history of surgery to other organs Peroneal tendinitis of right lower extremity Other enthesopathy of ankle and tarsus Orthopedic hardware present Right ankle pain, unspecified chronicity History of foot surgery Personal history of surgery to other organs Peroneal tendinitis of right lower extremity Other enthesopathy of ankle and tarsus [facility] Diagnosis Right ankle pain, unspecified chronicity History of foot surgery Personal history of surgery to other organs Peroneal tendinitis of right lower extremity Other enthesopathy of ankle and tarsus [facility] this [facility] Diagnosis Bipolar II disorder, most recent episode major depressive (CMS/HCC) Other bipolar disorders documented in this encounter [facility]* Diagnosis PTSD (post-traumatic stress disorder) ([facility]) Posttraumatic stress disorder Bipolar II disorder, most recent episode major depressive ([facility]) Other bipolar disorders documented in [facility] Diagnosis Bipolar II disorder, most recent episode major depressive ([facility]) Other bipolar disorders documented in [facility]* Diagnosis PTSD (post-traumatic stress disorder) ([facility]) Posttraumatic stress disorder Bipolar II disorder, most recent episode major depressive ([facility]) Other bipolar disorders documented in [facility]* Diagnosis Chronic migraine without aura without status migrainosus, not intractable ([facility])- Primary Tremor Abnormal involuntary movements documented in this [facility]* Diagnosis PTSD (post-traumatic stress disorder) ([facility]) Posttraumatic stress disorder Bipolar II disorder, most recent episode major depressive ([facility]) Other bipolar disorders documented [facility] this encounter [facility] Narrative - Reported* Type Description Date Medical History bipolar depression Medical History hx stomach ulcers Medical History migraine headaches Surgical History T&A 1997 Surgical History [place] Teeth 2005 Surgical History Keloid Scar from [...] Surgical History hysterectomy Hospitalization History See Above [facility] Other H[facility]ice general Narrative - Reported* Type Description Date Medical History bipolar depression Medical History hx stomach ulcers Medical History migraine headaches Medical History IBS Medical History chronic depression Medical History anxiety Medical History Gestational diabetes - yes Medical History PCOS Medical History Esophageal reflux Medical History fatigue Medical History lactose intolerance Medical History obesity Surgical History T&A 1997 Surgical History [place] Teeth 2005 Surgical History Keloid Scar from [...] reconstruction 2 021 Hospitalization History See Above [facility] Other [place] general Narrative - Reported* Type Description Date Medical History bipolar depression Medical History hx stomach ulcers Medical History migraine headaches Medical History IBS Medical History chronic depression Medical History anxiety Medical History Gestational diabetes - yes Medical History PCOS Medical History Esophageal reflux Medical History fatigue Medical History lactose intolerance Medical History obesity Surgical History T&A 1997 Surgical History [place] Teeth 2005 Surgical History Keloid Scar from [...] reconstruction 2 021 Hospitalization History See Above [facility] Other Hospital course Narrative No data available for this section [facility] instructions No data available for this section [facility] No data available for this section [facility] Advance Directives No Advanced Directives Records Found Advance Directive Response Recorded Date/ Time Advance Directives No April 08 0 6:58am Advance Directive Response Recorded Date/ Time Advance Directives No April 08 0 7:58am Chief Complaint and Reason for Visit Chief [facility] Dysmenorrhea,Dyspareunia,Abnormal Uterine Bleeding Chief Complaint [...] / Behavioral Health Diagnoses med mgmt Procedures OR OFFICE/OUTPATIENT ESTABLISHED LOW MDM [facility] [address] [facility] [address] [place] [address] Phone: tel: fax: Chelsea Virk, MONA-TUBE FITTER 112 [facility] [address] [place] [address] Phone: tel: fax: Referral ID Status Reason Start Date Expiration Date Visits Re quested Visits Authorized [id number] Closed 10/11/2024 04/09/2025 1 1 Reason Comments [...] XR Specialty Diagnoses / Procedures Referred By Seble browning Referred To Contact XR IMAGING Diagnoses Right ankle pain, unspecified chronicity Procedures XR ANKLE GENERAL 3V AP/LAT/OBL RIGHT RADEX ANKLE COMPLETE MINIMUM 3 VIEWS Geraldine Bolaños DPM [address] [place] [address] Phone: tel: fax: [place] [address] Referral ID Status Reason Start Date Expiration Date V isits Requested Visits Authorized [id number] Closed Auto-Generate d Referral 12/12/2024 01/11/2026 1 1 Reason Comments New Patient Assessment Reason Comments Counseling session Specialty Diagnoses / Procedures Referred By Contact Referred To Contact Dive Master / Behavioral Health Diagnoses Counseling Procedures Counseling Chelsea Virk, MEDICAL EDUCATION SPECIALIST-TUBE FITTER [address] [facility] [address] [place] [address] Phone: tel: fax: Isaak Berger LSW Referral ID Status Reason Start Date Expiration Date Visits Re quested Visits Authorized [id number] Closed 12/24/2024 06/22/2025 99 99 Reason Comments Migraine Referral ID Status Reason Start Date Expiration Date V isits Requested Visits Authorized [id number] Authorized 12/24/2024 06/22/2025 99 99 Care Teams (unrecognized sec tion and content) Team Status: Inactive Member Role Status Dates MINA Mercedes-C Attending Provider Active PHYSICIAN NO FAMILY Primary [...] MercedesP-C Primary Care Provider Active Lambert Gavin , Attending Provider Active Team Status: Inactive Member Role Status Dates Ml Chisholm NP Attending Provider Active Start: October 17, 2023 End: October 17, 2023 Team Status: Inactive Member Role Status Dates LYDIA MercedesP-C Primary Care Provider Active Start: December 08, [...] February 26, 2024 End: February 26, 2024 Produce Sorter Relationship Specialty Start Date End Date Unallocated, [place] [address] PCP - General Family Medicine 05/11/24 Produce Sorter Relationship Specialty Start Date End Date Unallocated, [place] [address] PCP - General Family Medicine 05/11/24 Produce Sorter Relationship Specialty Start Date End Date Unallocated, [place] [address] PCP - General Family Medicine 05/11/24 Team Status: Inactive Member Role Status Dates Ame Zaragoza HELP DESK SUPPORT SPECIALIST- Primary Care Provider Activ e Start: September 19, 2024 End: September 19, 2024 Taisha Tejada APRN Attending Provider Active S tart: September 19, 2024 End: September 19, 2024 Produce Sorter Relationship Specialty Start Date End Date Unallocated, [place] [address] PCP - General Family Medicine 05/11/24 Produce Sorter Relationship Specialty Start Date End Date Unallocated, [place] [address] PCP - General Family Medicine 05/11/24 Produce Sorter Relationship Specialty Start Date End Date Unallocated, [place] [address] PCP - General Family Medicine 05/11/24 Produce Sorter Relationship Specialty Start Date End Date Unallocated, [place] [address] PCP - General Family Medicine 05/11/24 Produce Sorter Relationship Specialty Start Date End Date Unallocated, [place] [address] PCP - General Family Medicine 05/11/24 Produce Sorter Relationship Specialty Start Date End Date Unallocated, Vanessa Pulido MD [address] [place] [address] PCP - General Family Medicine 05/11/24 Akira Gavin DO [address] [id number] Referring Physician Neurology 11/01/24 Produce Sorter Relationship Specialty Start Date End Date Unallocated, Vanessa Pulido MD [facility] [place] [address] PCP - General Family Medicine 05/11/24 Akira Gavin DO [address] [address] Referring Physician Neurology 11/01/24 Produce Sorter Relationship Specialty Start Date End Date Unallocated, Vanessa Pulido MD [address] [place] [address] PCP - General Family Medicine 05/11/24 Akira Gavin DO [address] [address] Referring Physician Neurology 11/01/24 Produce Sorter Relationship Specialty Start Date End Date Unallocated, Vanessa Pulido MD [address] [place] [id number] PCP - General Family Medicine 05/11/24 Akira Gavin DO [address] [address] Referring Physician Neurology 11/01/24 Chelsea Virk, MEDICAL EDUCATION SPECIALIST-TUBE FITTER [address] [place] [address] Nurse Practitioner Psychiatry 11/16/24 Produce Sorter Relationship Specialty Start Date End Date Unallocated, Vanessa Pulido MD [address] [place] [address] PCP - General Family Medicine 05/11/24 Akira Gavin DO [address] [place], [place] [id number] Referring Physician Neurology 11/01/24 Chelsea Virk, MEDICAL EDUCATION SPECIALIST-TUBE FITTER 112 [facility] [address] [place] [address] Nurse Practitioner Psychiatry 11/16/24 Produce Sorter Relationship Specialty Start Date End Date Unallocated, Vanessa Pulido MD [address] [place] [address] PCP - General Family Medicine 05/11/24 Akira Gavin DO [address] [phone] Referring Physician Neurology 11/01/24 Chelsea Virk, MEDICAL EDUCATION SPECIALIST-TUBE FITTER [address] [address] Nurse Practitioner Psychiatry 11/16/24 Produce Sorter Relationship Specialty Start Date End Date Unallocated, Vanessa Pulido MD [address] [place] [address] PCP - General Family Medicine 05/11/24 Akira Gavin DO [address] [address] Referring Physician Neurology 11/01/24 Chelsea Virk, MEDICAL EDUCATION SPECIALIST-TUBE FITTER 112 [facility] [address] [place] [address] Nurse Practitioner Psychiatry 11/16/24 Produce Sorter Relationship Specialty Start Date End Date Unallocated, Vanessa Pulido MD [address] [place] [address] PCP - General Family Medicine 05/11/24 Akira Gavin DO [address] [phone] Referring Physician Neurology 11/01/24 Chelsea Virk, MEDICAL EDUCATION SPECIALIST-TUBE FITTER 112 [facility] [address] [place] [address] Nurse Practitioner Psychiatry 11/16/24 Produce Sorter Relationship Specialty Start Date End Date Unallocated, Vanessa Pulido MD [address] [place] [address] PCP - General Family Medicine 05/11/24 Akira Gavin DO [address] [phone] Referring Physician Neurology 11/01/24 Chelsea Virk, MEDICAL EDUCATION SPECIALIST-TUBE FITTER [address] [address] Nurse Practitioner Psychiatry 11/16/24 Produce Sorter Relationship Specialty Start Date End Date Unallocated, Vanessa Pulido MD [address] [place] [address] PCP - General Family Medicine 05/11/24 Akira Gavin DO [address] [phone] Referring Physician Neurology 11/01/24 Chelsea Virk, MEDICAL EDUCATION SPECIALIST-TUBE FITTER [address] [facility] [address] [place] [address] Nurse Practitioner Psychiatry 11/16/24 Produce Sorter Relationship Specialty Start Date End Date Unallocated, Vanessa Pulido MD [address] [place] [address] PCP - General Family Medicine 05/11/24 Akira Gavin DO [address] [place], [place] [phone] Referring Physician Neurology 11/01/24 Chelsea Virk, MEDICAL EDUCATION SPECIALIST-TUBE FITTER [address] [facility] [address] [place] [address] Nurse Practitioner Psychiatry 11/16/24 Produce Sorter Relationship Specialty Start Date End Date Unallocated, Vanessa Pulido MD [address] [place] [address] PCP - General Family Medicine 05/11/24 Akira Gavin DO [address] [place], [place] [phone] Referring Physician Neurology 11/01/24 Chelsea Virk, MEDICAL EDUCATION SPECIALIST-TUBE FITTER [address] [facility] [address] [place] [address] Nurse Practitioner Psychiatry 11/16/24 Produce Sorter Relationship Specialty Start Date End Date Unallocated, Vanessa Pulido MD [address] [place] [address] PCP - General Family Medicine 05/11/24 Akira Gavin DO [address] [phone] Referring Physician Neurology 11/01/24 Chelsea Virk, MEDICAL EDUCATION SPECIALIST-TUBE FITTER [address] [facility] [address] [place] [address] Nurse Practitioner Psychiatry 11/16/24 Produce Sorter Relationship Specialty Start Date End Date Unallocated, Vanessa Pulido MD [address] [place] [address] PCP - General Family Medicine 05/11/24 Akira Gavin DO [address] [phone] Referring Physician Neurology 11/01/24 Chelsea Virk, MEDICAL EDUCATION SPECIALIST-TUBE FITTER [address] [facility] [address] [place] [address] Nurse Practitioner Psychiatry 11/16/24 Produce Sorter Relationship Specialty Start Date End Date Unallocated, Vanessa Pulido MD [address] [place] [address] PCP - General Family Medicine 05/11/24 Akira Gavin DO [address] [phone] Referring Physician Neurology 11/01/24 Chelsea Virk, MEDICAL EDUCATION SPECIALIST-TUBE FITTER [address] [facility] [address] [place] [address] Nurse Practitioner Psychiatry 11/16/24 Produce Sorter Relationship Specialty Start Date End Date Unallocated, Vanessa Pulido MD [address] [place] [address] PCP - General Family Medicine 05/11/24 Akira Gavin DO [address] [address] Referring Physician Neurology 11/01/24 Chelsea Virk, MEDICAL EDUCATION SPECIALIST-TUBE FITTER [address] [facility] [address] [place] [address] Nurse Practitioner Psychiatry 11/16/24 Produce Sorter Relationship Specialty Start Date End Date Unallocated, Vanessa Pulido MD [address] [place] [address] PCP - General Family Medicine 05/11/24 Akira Gavin DO [address] [phone] Referring Physician Neurology 11/01/24 Chelsea Virk, MEDICAL EDUCATION SPECIALIST-TUBE FITTER [address] [facility] [address] [place] [address] Nurse Practitioner Psychiatry 11/16/24 Produce Sorter Relationship Specialty Start Date End Date Unallocated, Vanessa Pulido MD [address] [place] [address] PCP - General Family Medicine 05/11/24 Akira Gavin DO [address] [address] Referring Physician Neurology 11/01/24 Chelsea Virk, MEDICAL EDUCATION SPECIALIST-TUBE FITTER [address] [facility] [address] [place] [address] Nurse Practitioner Psychiatry 11/16/24 Produce Sorter Relationship Specialty Start Date End Date Unallocated, Noms Tess, [place] [address] PCP - General Family Medicine 05/11/24 Akira Gavin DO [address] [place] [address] Referring Physician Neurology 11/01/24 Chelsea Virk APRN-TUBE FITTER 112 [facility] [address] [place] [address] Nurse Practitioner Psychiatry 11/16/24 Goals (unrecognized section and content) Goals may be documented in a n alternate section INFORMATION SOURCE (unrecogn ized section and content) DATE CREATED AUTHOR 02/12/2023 [facility] DATE CREATED AUTHOR AUTHOR'S ORGANIZ ATION 04/12/2024 [facility] DATE CREATED AUTHOR AUTHOR'S ORGANIZ ATION 04/13/2024 [facility] DATE CREATED AUTHOR AUTHOR'S ORGANIZ ATION 04/18/2024 [facility] DATE CREATED AUTHOR AUTHOR'S ORGANIZ ATION 04/19/2024 [facility] DATE CREATED AUTHOR AUTHOR'S ORGANIZ ATION 12/28/2024 [facility] DATE CREATED AUTHOR AUTHOR'S ORGANIZ ATION 02/24/2025 [facility] DATE CREATED AUTHOR AUTHOR'S ORGANIZ ATION 03/21/2025 [facility] DATE CREATED AUTHOR AUTHOR'S ORGANIZ ATION 03/30/2025 [facility] DATE CREATED AUTHOR AUTHOR'S ORGANIZ ATION 03/31/2025 [facility] DATE CREATED AUTHOR AUTHOR'S ORGANIZ ATION 04/10/2025 [facility] DATE CREATED AUTHOR AUTHOR'S ORGANIZ ATION 04/17/2025 [facility] DATE CREATED AUTHOR AUTHOR'S ORGANIZ ATION 04/30/2025 [facility] DATE CREATED AUTHOR AUTHOR'S LOLY ATION 05/02/2025 Jerome Francisco [facility] Source Comments (unrecognize d section and content) In the event this informatio n is protected by the Federal Confidentiality of Alcohol and Drug Abuse Patient Records regulations: The Federal rules restrict any use of the information to criminally investigate or prosecute any alcohol or drug abuse patient.[facility] event this information is protected by the Federal Confidentiality of Alcohol and Drug Abuse Patient Records regulations: The Federal rules restrict any use of the information to criminally investigate or prosecute any alcohol or drug abuse patient.[facility] the event this information is protected by the Federal Confidentiality of Alcohol and Drug Abuse Patient Records regulations: The Federal rules restrict any use of the information to criminally investigate or prosecute any alcohol or drug abuse patient.[facility] FOR RECORDS PERTAINING TO PATIENTS WHO [...] BE BASED ON THE PRIMARY CLINICAL RECORDS. [facility] [employer] [facility]. provides no warranty or guarantee of the accuracy or completeness of information in this document.
== END 2025-05-11 18:57 | disposition left against medical advice (07) ==
PROVIDERS: Emergency Provider Emergency Medicine
DX: Z53.21 Procedure and treatment not carried out due to patient leaving prior to being seen by health care provider (principal)

== ENCOUNTER 2025-05-12 12:22 | Emergency (ER) | payer OTHER, SELFPAY ==
--- OUTSIDE RECORDS SUMMARY | 2025-05-12 12:28 | XMS_ITS | CCD ---
Author Organization [facility] Care Team Providers Care Assisted Living Housekeeper Name Role Phone Eric ([facility])Kit Attending Provider Dewayne James Attending [...] STRATTON Admitting Unavailable Donald Cannon Consulting Unavailable MAE ZARAGOZA Primary Care Unavailable FARHEEN STRATTON Consulting [...] Unavailable KRISTIN Zaragozahanie Primary Care Provider [facility] Charlie, GER Mahajan Attending Provider KRISTIN Zaragoza Ame Primary Care Provider [facility], GER Mahajan Attending Provider AME ZARAGOZA Primary Care Physician Lester Mcerloy Attending Unavailable NIK, AME Primary Care Unavailable Lester Mcelroy AAnnalee Admitting Unavailable Lester Mcelroy Attending Unavailable NIK, AME Primary Care Unavailable Lester Mcelroy Admitting Unavailable NIK, AME Primary Care Unavailable Lester Mcelroy Admitting Unavailable Lester Mcelroy AAnnalee Attending Unavailable Unallocated , Noms Provider Primary Care Provi concepción Unallocated , Noms Provider Primary Care Provi concepción Akira Gavin DO Unavailable [phone] Sully DUNN-Chelsea ROBBINS Unavailable Unavailable Primary Care [...] CRAWFORD Attending Unavailable BERGER, ISAAK Attending Unavailable MINREVA-NOSSEK, CHELSEA M Attending Unavailab le BERGER, ISAAK Attending Unavailable MINERVA-NOSSEK, CHELSEA M Attending Unavailab le MINERVA-NOSSEK, CHELSEA M Attending Unavailab le STUDD, BUCK E Primary Care Physician Malcolm Torres Attending Unavailable Malcolm Torres Admitting Unavailable Studd, Buck E Primary Care Unavailable Ame Zaragoza Primary Care Unavailable CHRIS RODRÍGUEZ Referring Unavailable STUDD, BUCK E Primary Care [...] Translations: [codeine] Drug Allergy Unknown (qualifier value) [facility] Povidone-Iodine (3 sources) Povidone-Iodine ; Translations: [povidone iodine topical] Drug Allergy Unknown (qualifier value) [facility] (9 sources) Adhesive Tape; Translations: [Adhesive tape] Allergy to substance 4 Rash/itching [facility] Comment on above: states anything stic ky causes itching/rash (7 sources) paper tape Allergy to substance 1 Rash/itching [facility] (20 sources) Codeine; Translations: [codeine] Drug Allergy 8 Unknown (qualifier value), GI intolerance, Unknown [facility] (20 sources) Povidone-Iodine ; Translations: [povidone iodine topical] Drug Allergy 8 Unknown (qualifier value), Rash, Itching [facility] (13 sources) bandaids Propensity to adverse reactions rash [employer] Other (16 sources) Polyester Propensity to adverse reactions 3 rash [facility] (7 sources) Povidone-Iodine ; Translations: [Betadine] Drug Allergy 2 itchy rash [facility] Repository (9 sources) Adhesive bandage; Translations: [Adhesive Bandage] Drug allergy Unknown (qualifier value) [facility] (2 sources) Codeine Drug Allergy 2 [facility] Repository (7 sources) Adhesive agent; Translations: [ADHESIVE] Allergy to substance 0 Rash [facility] (20 sources) Wound Dressing Adhesive Drug Allergy 0 Rash, Unknown [facility] (1 source) Adhesive Tape; Translations: [Tape] Propensity to adverse reactions to drug (disorder) [facility] Repository Medications Current Medications Medication Drug Class(es) [...] BID, # 540 tab(s), Refills(s) 0, Pharmacy: [facility]/pharmacy #[id number], 162, cm, 04/09/24 13:38:00 EDT, [...] water, # 360 tab(s), Refills(s) 0, [id number], cm, 03/14/25 8:51:00 EDT, Height/Length [...] 1 tablet Orally Once a day Active Jqrmlvmulr-Tmifgwf-Rxzmhfeie in (Folinic-Plus) 4-50-2 mg tablet (7 sources) Start: 11-25-2020 take 1 tablet by mouth once daily Woeccgpgts-Wzzpqth-Yxocxzypahh (Folinic-Plus) 4-50-2 mg tablet Active 1 TAB PO Daily November 25, 2020 10:32am Start: 11-25-2020 End: 09-19-2024 take 1 tablet by mouth once daily Swctxhfaxg-Gwixfkd-Nzzlxaslmme (Folinic- Plus) 4-50-2 mg tablet Discontinued 1 TAB PO Daily November 25, 2020 12:00am September 19, 2024 4:40pm Start: 11-25-2020 take 1 tablet by jerri th once daily Wlierkvjek-Zuaipcm-Subvrxhpkdu (Folinic- Plus) 4-50-2 mg tablet Active 1 TAB PO Daily November 25, 2020 12:00am Start: 11-25-2020 take 1 tablet by jerri th once daily Ltpofvxejp-Zwcibpn-Ooxhzhqilyw (Folinic- Plus) 4-50-2 mg tablet Active 1 [...] MAIN ST. Start Date: 06/28/19 Status: Ordered [place]-3 (1 source) Start: 04-16-2019 [place]-3 Oral, Daily, Refill(s) 0, Prophylaxis Start Date: 04/16/19 Status: Ordered [place]-3 Fatty Acids (Fish Oil Concentrate) 1,000 mg Capsule (7 sources) Start: 11-25-2020 take 1 capsule by mouth once daily [place]-3 Fatty Acids (Fish Oil Concentrate) 1,000 mg Capsule Active 1000 MG PO Daily November 25, 2020 10:35am Start: 11-25-2020 End: 09-19-2024 take 1 capsule by mouth once daily [place]-3 Fatty Acids (Fish Oil Concentrate) 1,000 mg Capsule Discontinued 1000 MG PO Daily November 25, 2020 12:00am September 19, 2024 4:40pm Start: 11-25-2020 take 1 capsule by [facility] once daily [place]-3 Fatty Acids (Fish Oil Concentrate) 1,000 mg Capsule Active 1000 MG PO Daily November 25, 2020 12:00am Start: 11-25-2020 take 1 capsule by [facility] once daily [place]-3 Fatty Acids (Fish Oil Concentrate) 1,000 mg [...] (Other) Start: 08-10-2023 take 1 tablet by [facility] every twelve hours predniSONE 20 MG 1 [...] Start: 04-16-2019 take 1 capsule by mo [facility] once daily Probiotic Formula (Bacillus Coagulans) [...] Drug Class(es) Dates Sig (Normalized) Sig (Original) [id number] actuat albuterol 0.09 mg/actuat metered dose [...] Onset: 01-30-2025 01-30-2025 Other aftercare (1 source) 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; Translations: [RETIREMENT CURRENT USE OF ASPIRIN] Onset: 10-26-2022 Episodic Other aftercare (1 source) Other rn long term care (current) drug therapy; Translations: [OTH RETIREMENT CURRENT DRUG THERAPY] Onset: 10-26-2022 Episodic Other [...] 04-30-2025 Reminders Reminders From: Diane Montana To: [facility] - Reminders/Recalls; Sent: 04/30/2025 14:05:34 EDT Show up: 03/08/2035 14:05:00 EDT Subject: Ambulatory Reminder- colonoscopy 10 years Due Date/Time: 04/08/2035 14:05:00 EDT Reminder/Recall Colonoscopy 04/08/25 Dr Mcelroy 10 years Normal [facility] Surgical Pathology Reporton 04-11-2025 Surgical Pathology Report [facility] [address] [place] [address]- Surgical Pathology Report Collected Date/Time: 04/08/2025 09:50 [...] characteristics were determined by the Laboratory of [facility] Surgical Pathology. They have not been cleared [...] recognition technology and might contain unintended computerized coagulating bath mixer errors. Microscopic examination performed unless gross only specified. Quality was accessed and acceptable. Normal [facility] Comment on above: Performed By: #### [id number] #### [facility] [address] [place] [address] Main OR Intraoperative Recor don 04-09-2025 Main OR Intraoperative Record Main OR Intraoperative Record IntraOp Document Type FT Summary Primary Physician: Lester Mcelroy MD Finalized Date/Time: 04/09/25 12:26:18 Pt. Name: NOBLE CASTILLO/Sex: 1985 Female Med Rec #: [id number] Physician: Lester Mcelroy MD Financial #: [id number] Pt. 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 Normal [facility] Discharge Instructionson Discharge Instructions Discharge Instructions JONATHANLORENEA [...] AM EDT With: Lester Mcelroy MD Where: [facility] [address] [address]- New Follow Up Appointments after Discharge Follow Up with Lester Mcelroy MD, [facility], [facility] When: Comments: Office will call Date and Time of Follow-up Appt if needed. Where: [address], [address] [place] [address]- [phone] Medications What How Much When Why Instructions [...] your stool. (more content not included)... Normal [facility] Comment on above: Result Comment: Elec [...] water, # 360 tab(s), Refills(s) 0, Pharmacy: [facility]/pharmacy #[id number], 162, cm, 03/14/25 8:51:00 EDT, Height/Length [...] All Problems Abdominal bloating / SNOMED CT 617639650 / Confirmed Chronic diarrhea / SNOMED CT 373141603 / Confirmed Chronic GERD / SNOMED CT 723415094 / Confirmed Depression / SNOMED CT 97733657 / Confirmed Gastric erosion / SNOMED CT 100181193 / Confirmed Heartburn / SNOMED CT 72615791 / Confirmed Hypoglycemia / SNOMED CT 891233819 / Confirmed Kidney stone / SNOMED CT 118968613 / Confirmed Lower abdominal pain / SNOMED CT 51872538 / Confirmed Migraine / SNOMED CT 75858249 / Confirmed S/P cholecystectomy / SNOMED CT 8148530469 / Confirmed, Active Problems (11) Abdominal bloating Chronic diarrhea Chronic GERD Depression Gastric erosion Heartburn Hypoglycemia Kidney stone Lower abdominal pain Migraine S/P cholecystectomy Histories Past Medical History: No active or resolved past medical history items have been selected or recorded. Family History: COPD Father Heart failure Father Acute myocardial infarction Mother Procedure history: Foot ([id number]) on 12/01/2023 at 38 Years. Comments: 04/09/2024 13:32 EDT - Gina, Natalya flat foot Tonsillectomy (098691970). Cholecystectomy (16415010). Dilation and curettage (97626215). Nasal sinus (9584050). Comments: 03/14/2025 8:44 EDT - Lewis, Natalya x2 wisdom teeth. Lump (6501997561). Comments: 03/14/2025 8:44 EDT - Natalya Fuentes arm Hysterectomy (749273578). Laparoscope (781920348). Ear (4047773671). EGD - esophagogastroduodenoscopy (7997828337). Colonoscopy (059100208). Physical Examination Vital Signs (last 24 hrs) Last Charted Temp Temporal 36.4 DegC (APR 08 09:15) Heart Rate Monitored 80 bpm (APR 08:15) SBP 128 mmHg (APR 08:15) DBP 83 mmHg (APR 08:15) Weight 90.9 kg (APR 08 08:13) General: in Nad Abdomen: Soft, NTND Impression and Plan Diagnosis: Bloating and diarrhea -EGD and colonoscopy Normal [facility] Main OR PACU II Recordon Main OR PACU II Record Main OR PACU II Record PACU Phase II Document Type FT Summary Primary Physician: Lester Mcelroy MD Finalized Date/Time: 04/08/25 12:52:16 Pt. Name: NOBLE CASTILLO/Sex: 1985 Female Med Rec #: [id number] Physician: Lester Mcelroy MD Financial #: [id number] Pt. Type: O Room/Bed: / Admit/Disch: 04/08/25 [...] By: Evita Aquino RN 04/08/25 12:52 Normal [facility] Main OR Preoperative Recordo n 04-08-2025 Main OR Preoperative Record Main OR Preoperative Record Holding Area Document Type FT Summary Primary Physician: Lester Mcelroy MD Finalized Date/Time: 04/08/25 09:07:54 Pt. Name: NOBLE CASTILLO/Sex: 1985 Female Med Rec #: [id number] Physician: Lester Mcelroy MD Financial #: [id number] Pt. Type: O Room/Bed: / Admit/Disch: 04/08/25 [...] completed prep at 0400 and remained NPO since/YANELISRN Finalized By: Azra Mueller RN Document Signatures Signed By: Azra Mueller RN 04/08/25 09:07 Normal [facility] Operative Reporton Operative Report Operative Report Patient: NOBLE CASTILLO Age: 40 years Sex: Female : 1985 Associated Diagnoses: None Author: Lester Mcelroy MD Pre-Procedure Procedure Date 04/08/2025 10:04:00 . Procedure Type: Colonoscopy with biopsy. Procedure provider Performed by Lester Mcelroy MD. Current history and physical Documented on chart. Foot (4839280340) on 12/01/2023 at 38 Years. Comments: 04/09/2024 13:32 EDT - Natalya Fuentes flat foot Tonsillectomy (450226129). Cholecystectomy (24945019). Dilation and curettage (85881589). Nasal sinus (5315270). Comments: 03/14/2025 8:44 EDT - Natalya Fuentes x2 wisdom teeth. Lump (5856354762). Comments: 03/14/2025 8:44 EDT - Natalya Fuentes arm Hysterectomy (697436903). Laparoscope (253964686). Ear (2527156093). EGD - esophagogastroduodenoscopy (3078632630). Colonoscopy (639039885).. Past Medical History No active or resolved past medical history items have been selected or recorded.. Family History COPD Father Heart failure Father Acute myocardial infarction Mother . Procedure History Foot ([id number]) on 12/01/2023 at 38 Years. Comments: 04/09/2024 13:32 EDT - Natalya Fuentes flat foot Tonsillectomy (892000848). Cholecystectomy (90360542). Dilation and curettage (53749009). Nasal sinus (1170667). Comments: 03/14/2025 8:44 EDT - Natalya Fuentes x2 wisdom teeth. Lump (3770331223). Comments: 03/14/2025 8:44 EDT - Natalya Fuentes arm Hysterectomy (153427444). Laparoscope (101380304). Ear (5340430812). EGD - esophagogastroduodenoscopy (7181182638). Colonoscopy (771137449).. Colorectal neoplasm risk assessment Average risk. Informed [...] water, # 360 tab(s), Refills(s) 0, Pharmacy: [facility]/pharmacy #[id number], 162, cm, 03/14/25 8:51:00 EDT, Height/Length [...] to d (more content not included)... Normal [facility] Comment on above: Result Comment: Elec tronically Signed By: Navi MACK, Lester Godoy\.br\Date and Time Signed: 04/08/25 10:04 EDT Other Comment: Ely charles Attachment - attachment storage system not supported [id number] Can be viewed in source system Missing Attachment - attachment storage system not supported [id number] Can be viewed in source system Missing Attachment - attachment storage system not supported 3332198 Can be viewed in source system Missing Attachment - attachment storage system not supported 3419629 Can be viewed in source system Missing Attachment - attachment storage system not supported 7329948 Can be viewed in source system Missing Attachment - attachment storage system not supported 2963542 Can be viewed in source system Missing Attachment - attachment storage system not supported 8136563 Can be viewed in source system Operative [...] water, # 360 tab(s), Refills(s) 0, Pharmacy: [facility]/pharmacy #[id number], 162, cm, 03/14/25 8:51:00 EDT, Height/Length [...] NSAIDs -Protonix 40 mg twice daily Normal [facility] Comment on above: Result Comment: Elec tronically Signed By: Navi MACK, Lester Godoy\.br\Date and Time Signed: 04/08/25 10:03 EDT Other Comment: Ely charles Attachment - attachment storage system not supported 9886579 Can be viewed in source system Missing Attachment - attachment storage system not supported [id number] Can be viewed in source system Missing Attachment - attachment storage system not supported 0556881 Can be viewed in source system Missing Attachment - attachment storage system not supported 1283981 Can be viewed in source system Missing Attachment - attachment storage system not supported 7171109 Can be viewed in source system Missing Attachment - attachment storage system not supported 6142678 Can be viewed in source system Missing Attachment - attachment storage system not supported 9764048 Can be viewed in source system Missing Attachment - attachment storage system not supported 9341086 Can be viewed in source system Missing Attachment - attachment storage system not supported 1264318 Can be viewed in source system Missing Attachment - attachment storage system not supported 4391216 Can be viewed in source system GIANNA Antinuclear Antibodieson 03-16-2025 Antinuclear Abs, IFA Positive Critically abnormal . [facility] Comment on above: Result Comment: Nega tive <1:80 Borderline 1:80 Positive >1:80 Performed By: #### T 4F, PTT, PT, CBC, CRP, ESR, ADDONUAPLUS, TSH3, CMP #### [address] #### RA, CCP, THYGLOB, JO1, CARDIO GMA, RPR W RFX, CAVAZOS, [id number], ADNA, HISAB, CH50, SJOGRENS, B2 GLYPROT, MITOM2, LUPANTCOAG, C4, ANTIR, TPO, C3, SMAB, GIANNA #### [facility] , Note 1 Comment Normal . [facility] Comment on above: Result Comment: Arabella cheatham Potential Disease Association Homogeneous Systemic Lupus Erythematosus, Drug Induced Systemic Lupus Erythematosus, Chronic Autoimmune hepatitis, Juvenile Idiopathic Arthritis Speckled Sjogren Syndrome, Systemic Lupus Erythematosus, Subacute Cutaneous Lupus, Lupus, Congenital Heart Block, Mixed Connective Tissue Disease, Scleroderma-diffuse, Scleroderma-Autoimmune Myositis Overlap Syndrome, Systemic Lupus Pfeicsrignnkm-Alcxknsnrzb-Cqsbprahae Myositis Overlap Syndrome, Systemic Autoimmune Rheumatic Disease, [...] Linear Scleroderma, Antiphospholipid Syndrome Performed at: - [facility] [id number] Superintendent Sanitation: Ronaldo Deleon PhD, Phone: [phone] Performed By: #### T 4F, PTT, PT, CBC, CRP, ESR, ADDONUAPLUS, TSH3, CMP #### [facility] [address] [place] [address] #### RA, CCP, THYGLOB, JO1, CARDIO GMA, RPR W RFX, CAVAZOS, [id number], ADNA, HISAB, CH50, SJOGRENS, B2 GLYPROT, MITOM2, LUPANTCOAG, C4, ANTIR, TPO, C3, SMAB, GIANNA #### [facility] , Speckled Pattern 1:160 High . [facility] Comment on above: Result Comment: Dens e Fine Speckled pattern is noted. This pattern suggests the presence of DFS70 antibody which has a low prevalence in systemic autoimmune rheumatic diseases. ICAP nomenclature: AC-2,4,5,29 Performed By: #### T 4F, PTT, PT, CBC, CRP, ESR, ADDONUAPLUS, TSH3, CMP #### [place] [address] [place] #### RA, CCP, THYGLOB, JO1, CARDIO GMA, RPR W RFX, CAVAZOS, [id number], ADNA, HISAB, CH50, SJOGRENS, B2 GLYPROT, MITOM2, LUPANTCOAG, C4, ANTIR, TPO, C3, SMAB, GIANNA #### [facility] , Anti-RNPon 03-16-2025 Anti-CHIEF TECHNICIAN <0.2 Normal 0.0-0.9 [facility] Comment on above: Performed By: #### T 4F, PTT, PT, CBC, CRP, ESR, ADDONUAPLUS, TSH3, CMP #### [place] [address] [place] #### RA, CCP, THYGLOB, JO1, CARDIO GMA, RPR W RFX, CAVAZOS, [id number], ADNA, HISAB, CH50, SJOGRENS, B2 GLYPROT, MITOM2, LUPANTCOAG, C4, ANTIR, TPO, C3, SMAB, GIANNA #### [facility] , Anti-Cavazos Antibodieson 02-28 Anti-Cavazos Antibodies <0.2 Normal 0.0-0.9 [facility] Comment on above: Performed By: #### T 4F, PTT, PT, CBC, CRP, ESR, ADDONUAPLUS, TSH3, CMP #### [place] [address] [place] #### RA, CCP, THYGLOB, JO1, CARDIO GMA, RPR W RFX, CAVAZOS, [id number], ADNA, HISAB, CH50, SJOGRENS, B2 GLYPROT, MITOM2, LUPANTCOAG, C4, ANTIR, TPO, C3, SMAB, GIANNA #### [facility] , Anti-dsDNA(DBL)Abon 03-16-20 25 Anti-dsDNA(DBL)Ab <1 Normal 0-9 [facility] Comment on above: Result Comment: Nega tive <5 Equivocal 5 - 9 Positive >9 Performed By: #### T 4F, PTT, PT, CBC, CRP, ESR, ADDONUAPLUS, TSH3, CMP #### [address] #### RA, CCP, THYGLOB, JO1, CARDIO GMA, RPR W RFX, CAVAZOS, [id number], ADNA, HISAB, CH50, SJOGRENS, B2 GLYPROT, MITOM2, LUPANTCOAG, C4, ANTIR, TPO, C3, SMAB, GIANNA #### [facility] , Anticardiolipin IgG/M/A, Qno n 03-16-2025 Anticardiolipin Ab, IgA,Qn <9 Normal 0-11 [facility] Comment on above: Result Comment: Nega tive: <12 Indeterminate: 12 - 20 Low-Med Positive: >20 - 80 High Positive: >80 Performed By: #### T 4F, PTT, PT, CBC, CRP, ESR, ADDONUAPLUS, TSH3, CMP #### [place] [address] [place] #### RA, CCP, THYGLOB, JO1, CARDIO GMA, RPR W RFX, CAVAZOS, [id number], ADNA, HISAB, CH50, SJOGRENS, B2 GLYPROT, MITOM2, LUPANTCOAG, C4, ANTIR, TPO, C3, SMAB, GIANNA #### [facility] , Anticardiolipin Ab, IgG,Qn <9 Normal 0-14 [facility] Comment on above: Result Comment: Nega tive: <15 Indeterminate: 15 - 20 Low-Med Positive: >20 - 80 High Positive: >80 Performed By: #### T 4F, PTT, PT, CBC, CRP, ESR, ADDONUAPLUS, TSH3, CMP #### [place] [address] [place] #### RA, CCP, THYGLOB, JO1, CARDIO GMA, RPR W RFX, CAVAZOS, [id number], ADNA, HISAB, CH50, SJOGRENS, B2 GLYPROT, MITOM2, LUPANTCOAG, C4, ANTIR, TPO, C3, SMAB, GIANNA #### [facility] , Anticardiolipin Ab, IgM,Qn 9 Normal 0-12 [facility] Comment on above: Result Comment: Nega tive: <13 Indeterminate: 13 - 20 Low-Med Positive: >20 - 80 High Positive: >80 Performed By: #### T 4F, PTT, PT, CBC, CRP, ESR, ADDONUAPLUS, TSH3, CMP #### [facility] [address] [place] [address] [place] #### RA, CCP, THYGLOB, JO1, CARDIO GMA, RPR W RFX, CAVAZOS, [id number], ADNA, HISAB, CH50, SJOGRENS, B2 GLYPROT, MITOM2, LUPANTCOAG, C4, ANTIR, TPO, C3, SMAB, GIANNA #### [facility] , Beta 2 Glycoprotein I Ab IgG /[facility] 03-16-2025 Beta 2 Glycoprotein I Ab, IgG <9 Normal 0-20 [facility] Comment on above: [...] CBC, CRP, ESR, ADDONUAPLUS, TSH3, CMP #### [facility] [address] [place] [address] [place] #### RA, CCP, THYGLOB, JO1, CARDIO GMA, RPR W RFX, CAVAZOS, [id number], ADNA, HISAB, CH50, SJOGRENS, B2 GLYPROT, MITOM2, LUPANTCOAG, C4, ANTIR, TPO, C3, SMAB, GIANNA #### [facility] , Beta 2 Glycoprotein I Ab, IgM <9 Normal 0-32 [facility] Comment on above: [...] CBC, CRP, ESR, ADDONUAPLUS, TSH3, CMP #### [address] #### RA, CCP, THYGLOB, JO1, CARDIO GMA, RPR W RFX, CAVAZOS, [id number], ADNA, HISAB, CH50, SJOGRENS, B2 GLYPROT, MITOM2, LUPANTCOAG, C4, ANTIR, TPO, C3, SMAB, GIANNA #### [facility] , C-Reactive Proteinon 025 C-Reactive Protein 1.6 mg/dL High 0.0-0.5 [facility] Comment on above: Performed By: #### T 4F, PTT, PT, CBC, CRP, ESR, ADDONUAPLUS, TSH3, CMP #### [place] [address] [place] #### RA, CCP, THYGLOB, JO1, CARDIO GMA, RPR W RFX, CAVAZOS, [id number], ADNA, HISAB, CH50, SJOGRENS, B2 GLYPROT, MITOM2, LUPANTCOAG, C4, ANTIR, TPO, C3, SMAB, GIANNA #### [facility] , Complement C3on 03-16-2025 Complement C3 194 mg/dL High 82-167 [facility] Comment on above: Performed By: #### T 4F, PTT, PT, CBC, CRP, ESR, ADDONUAPLUS, TSH3, CMP #### [place] [address] [place] #### RA, CCP, THYGLOB, JO1, CARDIO GMA, RPR W RFX, CAVAZOS, [id number], ADNA, HISAB, CH50, SJOGRENS, B2 GLYPROT, MITOM2, LUPANTCOAG, C4, ANTIR, TPO, C3, SMAB, GIANNA #### [facility] , Complement C4on 03-16-2025 Complement C4 23 mg/dL Normal 12-38 [facility] Comment on above: Performed By: #### T 4F, PTT, PT, CBC, CRP, ESR, ADDONUAPLUS, TSH3, CMP #### [address] #### RA, CCP, THYGLOB, JO1, CARDIO GMA, RPR W RFX, CAVAZOS, [id number], ADNA, HISAB, CH50, SJOGRENS, B2 GLYPROT, MITOM2, LUPANTCOAG, C4, ANTIR, TPO, C3, SMAB, GIANNA #### [facility] , Complement Total (CH50)on Complement Total (CH50) >60 Normal >41 [facility] Comment on above: [...] out of range values. Performed at: - [facility] [id number] Superintendent Sanitation: Ronaldo Deleon PhD, Phone: [phone] PERFORMED BY: [place] [id number] PATHOLOGIST MACHINE SETTER SHEET METAL LAKHWINDER MIR M.D. Performed By: #### T 4F, PTT, PT, CBC, CRP, ESR, ADDONUAPLUS, TSH3, CMP #### [place] [address] [place] #### RA, CCP, THYGLOB, JO1, CARDIO GMA, RPR W RFX, CAVAZOS, [id number], ADNA, HISAB, CH50, SJOGRENS, B2 GLYPROT, MITOM2, LUPANTCOAG, C4, ANTIR, TPO, C3, SMAB, GIANNA #### [facility] , Complete Blood Count Auto Di ffon 03-16-2025 Basophils (Bld) [#/Vol] 0.1 10*3/uL Normal 0.0-0.2 [facility] Comment on above: Performed By: #### T 4F, PTT, PT, CBC, CRP, ESR, ADDONUAPLUS, TSH3, CMP #### [address] #### RA, CCP, THYGLOB, JO1, CARDIO GMA, RPR W RFX, CAVAZOS, [id number], ADNA, HISAB, CH50, SJOGRENS, B2 GLYPROT, MITOM2, LUPANTCOAG, C4, ANTIR, TPO, C3, SMAB, GIANNA #### [facility] , Basophils/100 WBC (Bld) 0.9 % Normal . [facility] Comment on above: Performed By: #### T 4F, PTT, PT, CBC, CRP, ESR, ADDONUAPLUS, TSH3, CMP #### [place] [address] [place] #### RA, CCP, THYGLOB, JO1, CARDIO GMA, RPR W RFX, CAVAZOS, [id number], ADNA, HISAB, CH50, SJOGRENS, B2 GLYPROT, MITOM2, LUPANTCOAG, C4, ANTIR, TPO, C3, SMAB, GIANNA #### [facility] , Eosinophils (Bld) [#/Vol] 0.0 10*3/uL Normal 0.0-0.45 [facility] Comment on above: Performed By: #### T 4F, PTT, PT, CBC, CRP, ESR, ADDONUAPLUS, TSH3, CMP #### [place] [address] [place] #### RA, CCP, THYGLOB, JO1, CARDIO GMA, RPR W RFX, CAVAZOS, [id number], ADNA, HISAB, CH50, SJOGRENS, B2 GLYPROT, MITOM2, LUPANTCOAG, C4, ANTIR, TPO, C3, SMAB, GIANNA #### [facility] , Eosinophils/100 WBC (Bld) 0.6 % Normal . [facility] Comment on above: Performed By: #### T 4F, PTT, PT, CBC, CRP, ESR, ADDONUAPLUS, TSH3, CMP #### [place] [address] [place] #### RA, CCP, THYGLOB, JO1, CARDIO GMA, RPR W RFX, CAVAZOS, [id number], ADNA, HISAB, CH50, SJOGRENS, B2 GLYPROT, MITOM2, LUPANTCOAG, C4, ANTIR, TPO, C3, SMAB, GIANNA #### [facility] , Erythrocyte distribution width (RBC) [Ratio] 13.2 % Normal 11.9-15.3 [facility] Comment on above: Performed By: #### T 4F, PTT, PT, CBC, CRP, ESR, ADDONUAPLUS, TSH3, CMP #### [place] [address] [place] #### RA, CCP, THYGLOB, JO1, CARDIO GMA, RPR W RFX, CAVAZOS, [id number], ADNA, HISAB, CH50, SJOGRENS, B2 GLYPROT, MITOM2, LUPANTCOAG, C4, ANTIR, TPO, C3, SMAB, GIANNA #### [facility] , Hematocrit (Bld) [Volume fraction] 43.4 % Normal 34.0-46.4 [facility] Comment on above: Performed By: #### T 4F, PTT, PT, CBC, CRP, ESR, ADDONUAPLUS, TSH3, CMP #### [place] [address] [place] #### RA, CCP, THYGLOB, JO1, CARDIO GMA, RPR W RFX, CAVAZOS, [id number], ADNA, HISAB, CH50, SJOGRENS, B2 GLYPROT, MITOM2, LUPANTCOAG, C4, ANTIR, TPO, C3, SMAB, GIANNA #### [facility] , Hemoglobin (Bld) [Mass/Vol] 14.9 g/dL Normal 11.8-15.4 [facility] Comment on above: Performed By: #### T 4F, PTT, PT, CBC, CRP, ESR, ADDONUAPLUS, TSH3, CMP #### [address] #### RA, CCP, THYGLOB, JO1, CARDIO GMA, RPR W RFX, CAVAZOS, [id number], ADNA, HISAB, CH50, SJOGRENS, B2 GLYPROT, MITOM2, LUPANTCOAG, C4, ANTIR, TPO, C3, SMAB, GIANNA #### [facility] , Lymphocytes (Bld) [#/Vol] 2.7 10*3/uL Normal 1.00-4.8 [facility] Comment on above: Performed By: #### T 4F, PTT, PT, CBC, CRP, ESR, ADDONUAPLUS, TSH3, CMP #### [place] [address] [place] #### RA, CCP, THYGLOB, JO1, CARDIO GMA, RPR W RFX, CAVAZOS, [id number], ADNA, HISAB, CH50, SJOGRENS, B2 GLYPROT, MITOM2, LUPANTCOAG, C4, ANTIR, TPO, C3, SMAB, GIANNA #### [facility] , Lymphocytes/100 WBC (Bld) 36.5 % Normal . [facility] Comment on above: Performed By: #### T 4F, PTT, PT, CBC, CRP, ESR, ADDONUAPLUS, TSH3, CMP #### [place] [address] [place] #### RA, CCP, THYGLOB, JO1, CARDIO GMA, RPR W RFX, CAVAZOS, [id number], ADNA, HISAB, CH50, SJOGRENS, B2 GLYPROT, MITOM2, LUPANTCOAG, C4, ANTIR, TPO, C3, SMAB, GIANNA #### [facility] , MCH (RBC) [Entitic mass] 29.5 pg Normal 24.7-34.3 [facility] Comment on above: Performed By: #### T 4F, PTT, PT, CBC, CRP, ESR, ADDONUAPLUS, TSH3, CMP #### [address] #### RA, CCP, THYGLOB, JO1, CARDIO GMA, RPR W RFX, CAVAZOS, [id number], ADNA, HISAB, CH50, SJOGRENS, B2 GLYPROT, MITOM2, LUPANTCOAG, C4, ANTIR, TPO, C3, SMAB, GIANNA #### [facility] , MCV (RBC) [Entitic vol] 85.7 fL Normal 80-100 [facility] Comment on above: Performed By: #### T 4F, PTT, PT, CBC, CRP, ESR, ADDONUAPLUS, TSH3, CMP #### [place] [address] [place] #### RA, CCP, THYGLOB, JO1, CARDIO GMA, RPR W RFX, CAVAZOS, [id number], ADNA, HISAB, CH50, SJOGRENS, B2 GLYPROT, MITOM2, LUPANTCOAG, C4, ANTIR, TPO, C3, SMAB, GIANNA #### [facility] , Mean Corpuscular HGB Conc 34.5 g/dL Normal 32.0-35.0 [facility] Comment on above: Performed By: #### T 4F, PTT, PT, CBC, CRP, ESR, ADDONUAPLUS, TSH3, CMP #### [place] [address] [place] #### RA, CCP, THYGLOB, JO1, CARDIO GMA, RPR W RFX, CAVAZOS, [id number], ADNA, HISAB, CH50, SJOGRENS, B2 GLYPROT, MITOM2, LUPANTCOAG, C4, ANTIR, TPO, C3, SMAB, GIANNA #### [facility] , Monocytes (Bld) [#/Vol] 0.4 10*3/uL Normal 0.0-0.8 [facility] Comment on above: Performed By: #### T 4F, PTT, PT, CBC, CRP, ESR, ADDONUAPLUS, TSH3, CMP #### [address] #### RA, CCP, THYGLOB, JO1, CARDIO GMA, RPR W RFX, CAVAZOS, [id number], ADNA, HISAB, CH50, SJOGRENS, B2 GLYPROT, MITOM2, LUPANTCOAG, C4, ANTIR, TPO, C3, SMAB, GIANNA #### [facility] , Monocytes/100 WBC (Bld) 5.2 % Normal . [facility] Comment on above: Performed By: #### T 4F, PTT, PT, CBC, CRP, ESR, ADDONUAPLUS, TSH3, CMP #### [place] [address] [place] #### RA, CCP, THYGLOB, JO1, CARDIO GMA, RPR W RFX, CAVAZOS, [id number], ADNA, HISAB, CH50, SJOGRENS, B2 GLYPROT, MITOM2, LUPANTCOAG, C4, ANTIR, TPO, C3, SMAB, GIANNA #### [facility] , Neutrophils (Bld) [#/Vol] 4.2 10*3/uL Normal 1.8-7.7 [facility] Comment on above: Performed By: #### T 4F, PTT, PT, CBC, CRP, ESR, ADDONUAPLUS, TSH3, CMP #### [place] [address] [place] #### RA, CCP, THYGLOB, JO1, CARDIO GMA, RPR W RFX, CAVAZOS, [id number], ADNA, HISAB, CH50, SJOGRENS, B2 GLYPROT, MITOM2, LUPANTCOAG, C4, ANTIR, TPO, C3, SMAB, GIANNA #### [facility] , Neutrophils/100 WBC (Bld) 56.8 % Normal . [facility] Comment on above: Performed By: #### T 4F, PTT, PT, CBC, CRP, ESR, ADDONUAPLUS, TSH3, CMP #### [address] #### RA, CCP, THYGLOB, JO1, CARDIO GMA, RPR W RFX, CAVAZOS, [id number], ADNA, HISAB, CH50, SJOGRENS, B2 GLYPROT, MITOM2, LUPANTCOAG, C4, ANTIR, TPO, C3, SMAB, GIANNA #### [facility] , NRBC% 0.0 /100{WBC} Normal 0-0.5 [facility] Comment on above: Performed By: #### T 4F, PTT, PT, CBC, CRP, ESR, ADDONUAPLUS, TSH3, CMP #### [address] #### RA, CCP, THYGLOB, JO1, CARDIO GMA, RPR W RFX, CAVAZOS, [id number], ADNA, HISAB, CH50, SJOGRENS, B2 GLYPROT, MITOM2, LUPANTCOAG, C4, ANTIR, TPO, C3, SMAB, GIANNA #### [facility] , Platelet mean volume (Bld) [Entitic vol] 9.3 fL Normal 6.3-10.7 [facility] Comment on above: Performed By: #### T 4F, PTT, PT, CBC, CRP, ESR, ADDONUAPLUS, TSH3, CMP #### [place] [address] [place] #### RA, CCP, THYGLOB, JO1, CARDIO GMA, RPR W RFX, CAVAZOS, [id number], ADNA, HISAB, CH50, SJOGRENS, B2 GLYPROT, MITOM2, LUPANTCOAG, C4, ANTIR, TPO, C3, SMAB, GIANNA #### [facility] , Platelets (Bld) [#/Vol] 246 10*3/uL Normal 150-450 [facility] Comment on above: Performed By: #### T 4F, PTT, PT, CBC, CRP, ESR, ADDONUAPLUS, TSH3, CMP #### [address] #### RA, CCP, THYGLOB, JO1, CARDIO GMA, RPR W RFX, CAVAZOS, [id number], ADNA, HISAB, CH50, SJOGRENS, B2 GLYPROT, MITOM2, LUPANTCOAG, C4, ANTIR, TPO, C3, SMAB, GIANNA #### [facility] , RBC (Bld) [#/Vol] 5.06 10*6/uL High 3.60-5.00 [facility] Comment on above: Performed By: #### T 4F, PTT, PT, CBC, CRP, ESR, ADDONUAPLUS, TSH3, CMP #### [address] #### RA, CCP, THYGLOB, JO1, CARDIO GMA, RPR W RFX, CAVAZOS, [id number], ADNA, HISAB, CH50, SJOGRENS, B2 GLYPROT, MITOM2, LUPANTCOAG, C4, ANTIR, TPO, C3, SMAB, GIANNA #### [facility] , WBC (Bld) [#/Vol] 7.4 10*3/uL Normal 3.8-11.6 [facility] Comment on above: Performed By: #### T 4F, PTT, PT, CBC, CRP, ESR, ADDONUAPLUS, TSH3, CMP #### [address] #### RA, CCP, THYGLOB, JO1, CARDIO GMA, RPR W RFX, CAVAZOS, [id number], ADNA, HISAB, CH50, SJOGRENS, B2 GLYPROT, MITOM2, LUPANTCOAG, C4, ANTIR, TPO, C3, SMAB, GIANNA #### [facility] , Comprehensive Metabolic Pane angel 03-16-2025 Albumin [Mass/Vol] 4.5 g/dL Normal 3.5-5.7 [facility] Comment on above: Performed By: #### T 4F, PTT, PT, CBC, CRP, ESR, ADDONUAPLUS, TSH3, CMP #### [address] #### RA, CCP, THYGLOB, JO1, CARDIO GMA, RPR W RFX, CAVAZOS, [id number], ADNA, HISAB, CH50, SJOGRENS, B2 GLYPROT, MITOM2, LUPANTCOAG, C4, ANTIR, TPO, C3, SMAB, GIANNA #### [facility] , Albumin/Globulin [Mass ratio] 1.8 {ratio} Normal [facility] Comment on above: Performed By: #### T 4F, PTT, PT, CBC, CRP, ESR, ADDONUAPLUS, TSH3, CMP #### [address] #### RA, CCP, THYGLOB, JO1, CARDIO GMA, RPR W RFX, CAVAZOS, [id number], ADNA, HISAB, CH50, SJOGRENS, B2 GLYPROT, MITOM2, LUPANTCOAG, C4, ANTIR, TPO, C3, SMAB, GIANNA #### [facility] , ALP [Catalytic activity/Vol] 83 U/L Normal 34-104 [facility] Comment on above: Performed By: #### T 4F, PTT, PT, CBC, CRP, ESR, ADDONUAPLUS, TSH3, CMP #### [address] #### RA, CCP, THYGLOB, JO1, CARDIO GMA, RPR W RFX, CAVAZOS, [id number], ADNA, HISAB, CH50, SJOGRENS, B2 GLYPROT, MITOM2, LUPANTCOAG, C4, ANTIR, TPO, C3, SMAB, GIANNA #### [facility] , ALT [Catalytic activity/Vol] 17 U/L Normal 7-52 [facility] Comment on above: Performed By: #### T 4F, PTT, PT, CBC, CRP, ESR, ADDONUAPLUS, TSH3, CMP #### [address] #### RA, CCP, THYGLOB, JO1, CARDIO GMA, RPR W RFX, CAVAZOS, [id number], ADNA, HISAB, CH50, SJOGRENS, B2 GLYPROT, MITOM2, LUPANTCOAG, C4, ANTIR, TPO, C3, SMAB, GIANNA #### [facility] , Anion gap [Moles/Vol] 11.2 mmol/L Normal 6.0-15.0 [facility] Comment on above: Performed By: #### T 4F, PTT, PT, CBC, CRP, ESR, ADDONUAPLUS, TSH3, CMP #### [address] #### RA, CCP, THYGLOB, JO1, CARDIO GMA, RPR W RFX, CAVAZOS, [id number], ADNA, HISAB, CH50, SJOGRENS, B2 GLYPROT, MITOM2, LUPANTCOAG, C4, ANTIR, TPO, C3, SMAB, GIANNA #### [facility] , AST [Catalytic activity/Vol] 14 U/L Normal 13-39 [facility] Comment on above: Performed By: #### T 4F, PTT, PT, CBC, CRP, ESR, ADDONUAPLUS, TSH3, CMP #### [place] [address] [place] #### RA, CCP, THYGLOB, JO1, CARDIO GMA, RPR W RFX, CAVAZOS, [id number], ADNA, HISAB, CH50, SJOGRENS, B2 GLYPROT, MITOM2, LUPANTCOAG, C4, ANTIR, TPO, C3, SMAB, GIANNA #### [facility] , Bilirubin [Mass/Vol] 0.5 mg/dL Normal 0.3-1.0 [facility] Comment on above: Performed By: #### T 4F, PTT, PT, CBC, CRP, ESR, ADDONUAPLUS, TSH3, CMP #### [address] #### RA, CCP, THYGLOB, JO1, CARDIO GMA, RPR W RFX, CAVAZOS, [id number], ADNA, HISAB, CH50, SJOGRENS, B2 GLYPROT, MITOM2, LUPANTCOAG, C4, ANTIR, TPO, C3, SMAB, GIANNA #### [facility] , Calcium [Mass/Vol] 9.4 mg/dL Normal 8.6-10.3 [facility] Comment on above: Performed By: #### T 4F, PTT, PT, CBC, CRP, ESR, ADDONUAPLUS, TSH3, CMP #### [address] #### RA, CCP, THYGLOB, JO1, CARDIO GMA, RPR W RFX, CAVAZOS, [id number], ADNA, HISAB, CH50, SJOGRENS, B2 GLYPROT, MITOM2, LUPANTCOAG, C4, ANTIR, TPO, C3, SMAB, GIANNA #### [facility] , Chloride [Moles/Vol] 107 mmol/L Normal 98-107 [facility] Comment on above: Performed By: #### T 4F, PTT, PT, CBC, CRP, ESR, ADDONUAPLUS, TSH3, CMP #### [place] [address] [place] #### RA, CCP, THYGLOB, JO1, CARDIO GMA, RPR W RFX, CAVAZOS, [id number], ADNA, HISAB, CH50, SJOGRENS, B2 GLYPROT, MITOM2, LUPANTCOAG, C4, ANTIR, TPO, C3, SMAB, GIANNA #### [facility] , CO2 [Moles/Vol] 24.8 mmol/L Normal 21.0-31.0 [facility] Comment on above: Performed By: #### T 4F, PTT, PT, CBC, CRP, ESR, ADDONUAPLUS, TSH3, CMP #### [address] #### RA, CCP, THYGLOB, JO1, CARDIO GMA, RPR W RFX, CAVAZOS, [id number], ADNA, HISAB, CH50, SJOGRENS, B2 GLYPROT, MITOM2, LUPANTCOAG, C4, ANTIR, TPO, C3, SMAB, GIANNA #### [facility] , Creatinine [Mass/Vol] 0.67 mg/dL Normal 0.60-1.20 [facility] Comment on above: Performed By: #### T 4F, PTT, PT, CBC, CRP, ESR, ADDONUAPLUS, TSH3, CMP #### [address] #### RA, CCP, THYGLOB, JO1, CARDIO GMA, RPR W RFX, CAVAZOS, [id number], ADNA, HISAB, CH50, SJOGRENS, B2 GLYPROT, MITOM2, LUPANTCOAG, C4, ANTIR, TPO, C3, SMAB, GIANNA #### [facility] , GFR/1.73 sq M.predicted MDRD (S/P/Bld) [Vol rate/Area] mL/min/{1.73_m2} Normal [facility] Comment on above: Performed By: #### T 4F, PTT, PT, CBC, CRP, ESR, ADDONUAPLUS, TSH3, CMP #### [place] [address] [place] #### RA, CCP, THYGLOB, JO1, CARDIO GMA, RPR W RFX, CAVAZOS, [id number], ADNA, HISAB, CH50, SJOGRENS, B2 GLYPROT, MITOM2, LUPANTCOAG, C4, ANTIR, TPO, C3, SMAB, GIANNA #### [facility] , Globulin (S) [Mass/Vol] 2.5 g/dL Normal [facility] Comment on above: Performed By: #### T 4F, PTT, PT, CBC, CRP, ESR, ADDONUAPLUS, TSH3, CMP #### [address] #### RA, CCP, THYGLOB, JO1, CARDIO GMA, RPR W RFX, CAVAZOS, [id number], ADNA, HISAB, CH50, SJOGRENS, B2 GLYPROT, MITOM2, LUPANTCOAG, C4, ANTIR, TPO, C3, SMAB, GIANNA #### [facility] , Glucose [Mass/Vol] 85 mg/dL Normal 70-100 [facility] Comment on above: Result Comment: [facility] Glucose Reference Range is dependent on time and content of last meal. Glucose of more than 200 mg/dL in a nonstressed, ambulatory subject supports the diagnosis of Diabetes Mellitus. ADA recommended reference range Performed By: #### T 4F, PTT, PT, CBC, CRP, ESR, ADDONUAPLUS, TSH3, CMP #### [place] [address] [place] #### RA, CCP, THYGLOB, JO1, CARDIO GMA, RPR W RFX, CAVAZOS, [id number], ADNA, HISAB, CH50, SJOGRENS, B2 GLYPROT, MITOM2, LUPANTCOAG, C4, ANTIR, TPO, C3, SMAB, GIANNA #### [facility] , Potassium [Moles/Vol] 4.0 mmol/L Normal 3.5-5.1 [facility] Comment on above: Performed By: #### T 4F, PTT, PT, CBC, CRP, ESR, ADDONUAPLUS, TSH3, CMP #### [place] [address] [place] #### RA, CCP, THYGLOB, JO1, CARDIO GMA, RPR W RFX, CAVAZOS, [id number], ADNA, HISAB, CH50, SJOGRENS, B2 GLYPROT, MITOM2, LUPANTCOAG, C4, ANTIR, TPO, C3, SMAB, GIANNA #### [facility] , Protein [Mass/Vol] 7.0 g/dL Normal 6.4-8.9 [facility] Comment on above: Performed By: #### T 4F, PTT, PT, CBC, CRP, ESR, ADDONUAPLUS, TSH3, CMP #### [place] [address] [place] #### RA, CCP, THYGLOB, JO1, CARDIO GMA, RPR W RFX, CAVAZOS, [id number], ADNA, HISAB, CH50, SJOGRENS, B2 GLYPROT, MITOM2, LUPANTCOAG, C4, ANTIR, TPO, C3, SMAB, GIANNA #### [facility] , Sodium [Moles/Vol] 139 mmol/L Normal 136-145 [facility] Comment on above: Performed By: #### T 4F, PTT, PT, CBC, CRP, ESR, ADDONUAPLUS, TSH3, CMP #### [address] #### RA, CCP, THYGLOB, JO1, CARDIO GMA, RPR W RFX, CAVAZOS, [id number], ADNA, HISAB, CH50, SJOGRENS, B2 GLYPROT, MITOM2, LUPANTCOAG, C4, ANTIR, TPO, C3, SMAB, GIANNA #### [facility] , Urea nitrogen [Mass/Vol] 10 mg/dL Normal 7-25 [facility] Comment on above: Performed By: #### T 4F, PTT, PT, CBC, CRP, ESR, ADDONUAPLUS, TSH3, CMP #### [place] [address] [place] #### RA, CCP, THYGLOB, JO1, CARDIO GMA, RPR W RFX, CAVAZOS, [id number], ADNA, HISAB, CH50, SJOGRENS, B2 GLYPROT, MITOM2, LUPANTCOAG, C4, ANTIR, TPO, C3, SMAB, GIANNA #### [facility] , Cyclic Citrulliated Pep Abon 03-16-2025 Cyclic Citrulliated Pep Ab 9 Normal 0-19 [facility] Comment on above: Result Comment: Nega tive <20 Weak positive 20 - 39 Moderate positive 40 - 59 Strong positive >59 Performed at: [facility] [id number] Superintendent Sanitation: Ronaldo Deleon PhD, Phone: [phone] Performed By: #### T 4F, PTT, PT, CBC, CRP, ESR, ADDONUAPLUS, TSH3, CMP #### [address] #### RA, CCP, THYGLOB, JO1, CARDIO GMA, RPR W RFX, CAVAZOS, [id number], ADNA, HISAB, CH50, SJOGRENS, B2 GLYPROT, MITOM2, LUPANTCOAG, C4, ANTIR, TPO, C3, SMAB, GIANNA #### [facility] , Dipstick and Microscopicon 0 03-16-2025 Appearance (U) Clear Normal Clear [facility] Comment on above: Order Comment: Name Collection Type:: Clean-Voided Midstream Performed By: #### T 4F, PTT, PT, CBC, CRP, ESR, ADDONUAPLUS, TSH3, CMP #### [place] [address] [place] #### RA, CCP, THYGLOB, JO1, CARDIO GMA, RPR W RFX, CAVAZOS, [id number], ADNA, HISAB, CH50, SJOGRENS, B2 GLYPROT, MITOM2, LUPANTCOAG, C4, ANTIR, TPO, C3, SMAB, GIANNA #### [facility] , Bacteria,Urine Rare Normal None Seen [facility] Comment on above: Order Comment: Name Collection Type:: Clean-Voided Midstream Performed By: #### T 4F, PTT, PT, CBC, CRP, ESR, ADDONUAPLUS, TSH3, CMP #### [place] [address] [place] #### RA, CCP, THYGLOB, JO1, CARDIO GMA, RPR W RFX, CAVAZOS, [id number], ADNA, HISAB, CH50, SJOGRENS, B2 GLYPROT, MITOM2, LUPANTCOAG, C4, ANTIR, TPO, C3, SMAB, GIANNA #### [facility] , Bilirubin,Urine Negative Normal Negative [facility] Comment on above: Order Comment: Name Collection Type:: Clean-Voided Midstream Performed By: #### T 4F, PTT, PT, CBC, CRP, ESR, ADDONUAPLUS, TSH3, CMP #### [address] #### RA, CCP, THYGLOB, JO1, CARDIO GMA, RPR W RFX, CAVAZOS, [id number], ADNA, HISAB, CH50, SJOGRENS, B2 GLYPROT, MITOM2, LUPANTCOAG, C4, ANTIR, TPO, C3, SMAB, GIANNA #### [facility] , Color (U) Colorless Normal Yellow [facility] Comment on above: Order Comment: Name Collection Type:: Clean-Voided Midstream Performed By: #### T 4F, PTT, PT, CBC, CRP, ESR, ADDONUAPLUS, TSH3, CMP #### [address] #### RA, CCP, THYGLOB, JO1, CARDIO GMA, RPR W RFX, CAVAZOS, [id number], ADNA, HISAB, CH50, SJOGRENS, B2 GLYPROT, MITOM2, LUPANTCOAG, C4, ANTIR, TPO, C3, SMAB, GIANNA #### [facility] , Glucose Ql (U) Normal Normal Normal [facility] Comment on above: Order Comment: Name Collection Type:: Clean-Voided Midstream Performed By: #### T 4F, PTT, PT, CBC, CRP, ESR, ADDONUAPLUS, TSH3, CMP #### [address] #### RA, CCP, THYGLOB, JO1, CARDIO GMA, RPR W RFX, CAVAZOS, [id number], ADNA, HISAB, CH50, SJOGRENS, B2 GLYPROT, MITOM2, LUPANTCOAG, C4, ANTIR, TPO, C3, SMAB, GIANNA #### [facility] , Hyaline Casts,Urine None Normal 0-8 [facility] Comment on above: Order Comment: Name Collection Type:: Clean-Voided Midstream Result Comment: PERF ORMED BY: [place] [id number] PATHOLOGIST MACHINE [employer]TER [employer] LAKHWINDER MIR M.D. Performed By: #### T 4F, PTT, PT, CBC, CRP, ESR, ADDONUAPLUS, TSH3, CMP #### [address] #### RA, CCP, THYGLOB, JO1, CARDIO GMA, RPR W RFX, CAVAZOS, [id number], ADNA, HISAB, CH50, SJOGRENS, B2 GLYPROT, MITOM2, LUPANTCOAG, C4, ANTIR, TPO, C3, SMAB, GIANNA #### [facility] , Ketones Ql (U) Negative Normal Negative [facility] Comment on above: Order Comment: Name Collection Type:: Clean-Voided Midstream Performed By: #### T 4F, PTT, PT, CBC, CRP, ESR, ADDONUAPLUS, TSH3, CMP #### [address] #### RA, CCP, THYGLOB, JO1, CARDIO GMA, RPR W RFX, CAVAZOS, [id number], ADNA, HISAB, CH50, SJOGRENS, B2 GLYPROT, MITOM2, LUPANTCOAG, C4, ANTIR, TPO, C3, SMAB, GIANNA #### [facility] , Leukocyte esterase Test strip Ql (U) Negative Normal Negative [facility] Comment on above: Order Comment: Name Collection Type:: Clean-Voided Midstream Performed By: #### T 4F, PTT, PT, CBC, CRP, ESR, ADDONUAPLUS, TSH3, CMP #### [address] #### RA, CCP, THYGLOB, JO1, CARDIO GMA, RPR W RFX, CAVAZOS, [id number], ADNA, HISAB, CH50, SJOGRENS, B2 GLYPROT, MITOM2, LUPANTCOAG, C4, ANTIR, TPO, C3, SMAB, GIANNA #### [facility] , Nitrite,Urine Negative Normal Negative [facility] Comment on above: Order Comment: Name Collection Type:: Clean-Voided Midstream Performed By: #### T 4F, PTT, PT, CBC, CRP, ESR, ADDONUAPLUS, TSH3, CMP #### [address] #### RA, CCP, THYGLOB, JO1, CARDIO GMA, RPR W RFX, CAVAZOS, [id number], ADNA, HISAB, CH50, SJOGRENS, B2 GLYPROT, MITOM2, LUPANTCOAG, C4, ANTIR, TPO, C3, SMAB, GIANNA #### [facility] , Occult Blood,Urine Negative Normal Negative [facility] Comment on above: Order Comment: Name Collection Type:: Clean-Voided Midstream Performed By: #### T 4F, PTT, PT, CBC, CRP, ESR, ADDONUAPLUS, TSH3, CMP #### [address] #### RA, CCP, THYGLOB, JO1, CARDIO GMA, RPR W RFX, CAVAZOS, [id number], ADNA, HISAB, CH50, SJOGRENS, B2 GLYPROT, MITOM2, LUPANTCOAG, C4, ANTIR, TPO, C3, SMAB, GIANNA #### [facility] , pH (U) 5.5 [pH] Normal 5.0-9.0 [facility] Comment on above: Order Comment: Name Collection Type:: Clean-Voided Midstream Performed By: #### T 4F, PTT, PT, CBC, CRP, ESR, ADDONUAPLUS, TSH3, CMP #### [address] #### RA, CCP, THYGLOB, JO1, CARDIO GMA, RPR W RFX, CAVAZOS, [id number], ADNA, HISAB, CH50, SJOGRENS, B2 GLYPROT, MITOM2, LUPANTCOAG, C4, ANTIR, TPO, C3, SMAB, GIANNA #### [facility] , Protein,Urine Negative Normal Negative [facility] Comment on above: Order Comment: Name Collection Type:: Clean-Voided Midstream Performed By: #### T 4F, PTT, PT, CBC, CRP, ESR, ADDONUAPLUS, TSH3, CMP #### [address] #### RA, CCP, THYGLOB, JO1, CARDIO GMA, RPR W RFX, CAVAZOS, [id number], ADNA, HISAB, CH50, SJOGRENS, B2 GLYPROT, MITOM2, LUPANTCOAG, C4, ANTIR, TPO, C3, SMAB, GIANNA #### [facility] , RBC,Urine None Seen Normal 0-4 [facility] Comment on above: Order Comment: Name Collection Type:: Clean-Voided Midstream Performed By: #### T 4F, PTT, PT, CBC, CRP, ESR, ADDONUAPLUS, TSH3, CMP #### [address] #### RA, CCP, THYGLOB, JO1, CARDIO GMA, RPR W RFX, CAVAZOS, [id number], ADNA, HISAB, CH50, SJOGRENS, B2 GLYPROT, MITOM2, LUPANTCOAG, C4, ANTIR, TPO, C3, SMAB, GIANNA #### [facility] , Specificy [place],Urine 1.004 Normal 1.001-1.03 0 [facility] Comment on above: Order Comment: Name Collection Type:: Clean-Voided Midstream Performed By: #### T 4F, PTT, PT, CBC, CRP, ESR, ADDONUAPLUS, TSH3, CMP #### [address] #### RA, CCP, THYGLOB, JO1, CARDIO GMA, RPR W RFX, CAVAZOS, [id number], ADNA, HISAB, CH50, SJOGRENS, B2 GLYPROT, MITOM2, LUPANTCOAG, C4, ANTIR, TPO, C3, SMAB, GIANNA #### [facility] , Squamous Epithelial Cell,Urine 5-9 High 0-2 [facility] Comment on above: Order Comment: Name Collection Type:: Clean-Voided Midstream Performed By: #### T 4F, PTT, PT, CBC, CRP, ESR, ADDONUAPLUS, TSH3, CMP #### [address] #### RA, CCP, THYGLOB, JO1, CARDIO GMA, RPR W RFX, CAVAZOS, [id number], ADNA, HISAB, CH50, SJOGRENS, B2 GLYPROT, MITOM2, LUPANTCOAG, C4, ANTIR, TPO, C3, SMAB, GIANNA #### [facility] , Urobilinogen,Urine Normal Normal Normal [facility] Comment on above: Order Comment: Name Collection Type:: Clean-Voided Midstream Performed By: #### T 4F, PTT, PT, CBC, CRP, ESR, ADDONUAPLUS, TSH3, CMP #### [address] #### RA, CCP, THYGLOB, JO1, CARDIO GMA, RPR W RFX, CAVAZOS, [id number], ADNA, HISAB, CH50, SJOGRENS, B2 GLYPROT, MITOM2, LUPANTCOAG, C4, ANTIR, TPO, C3, SMAB, GIANNA #### [facility] , WBC,Urine 1-2 Normal 0-4 [facility] Comment on above: Order Comment: Name Collection Type:: Clean-Voided Midstream Performed By: #### T 4F, PTT, PT, CBC, CRP, ESR, ADDONUAPLUS, TSH3, CMP #### [place] [address] [place] #### RA, CCP, THYGLOB, JO1, CARDIO GMA, RPR W RFX, CAVAZOS, [id number], ADNA, HISAB, CH50, SJOGRENS, B2 GLYPROT, MITOM2, LUPANTCOAG, C4, ANTIR, TPO, C3, SMAB, GIANNA #### [facility] , Erythrocyte Sedimentation Ra abdirizak 03-16-2025 ESR (Bld) [Velocity] 27 mm/h High 0-19 The [facility] Comment on above: Result Comment: PERF ORMED BY: [place] [id number] PATHOLOGIST MACHINE SETTER SHEET METAL LAKHWINDER MIR M.D. Performed By: #### T 4F, PTT, PT, CBC, CRP, ESR, ADDONUAPLUS, TSH3, CMP #### [address] #### RA, CCP, THYGLOB, JO1, CARDIO GMA, RPR W RFX, CAVAZOS, [id number], ADNA, HISAB, CH50, SJOGRENS, B2 GLYPROT, MITOM2, LUPANTCOAG, C4, ANTIR, TPO, C3, SMAB, GIANNA #### [facility] , Free T4 (Free Thyroxine)on 0 03-16-2025 Free T4 [Mass/Vol] 0.86 ng/dL Normal 0.61-1.12 The [facility] Comment on above: Performed By: #### T 4F, PTT, PT, CBC, CRP, ESR, ADDONUAPLUS, TSH3, CMP #### [place] [address] [place] #### RA, CCP, THYGLOB, JO1, CARDIO GMA, RPR W RFX, CAVAZOS, [id number], ADNA, HISAB, CH50, SJOGRENS, B2 GLYPROT, MITOM2, LUPANTCOAG, C4, ANTIR, TPO, C3, SMAB, GIANNA #### [facility] , Histone Antibodieson 025 Histone Antibodies 0.3 Normal 0.0-0.9 The [facility] Comment on above: Result Comment: Nega tive <1.0 Weak Positive 1.0 - 1.5 Moderate Positive 1.6 - 2.5 Strong Positive >2.5 Performed at: [address] [id number] Superintendent Sanitation: Nikolas Parnell MD, Phone: [phone] Performed By: #### T 4F, PTT, PT, CBC, CRP, ESR, ADDONUAPLUS, TSH3, CMP #### [address] #### RA, CCP, THYGLOB, JO1, CARDIO GMA, RPR W RFX, CAVAZOS, [id number], ADNA, HISAB, CH50, SJOGRENS, B2 GLYPROT, MITOM2, LUPANTCOAG, C4, ANTIR, TPO, C3, SMAB, GIANNA #### [facility] , GURMEET-1 Antibodyon 03-16-2025 GURMEET-1 Antibody <0.2 Normal 0.0-0.9 The [facility] Comment on above: Performed By: #### T 4F, PTT, PT, CBC, CRP, ESR, ADDONUAPLUS, TSH3, CMP #### [place] [address] [place] #### RA, CCP, THYGLOB, JO1, CARDIO GMA, RPR W RFX, CAVAZOS, [id number], ADNA, HISAB, CH50, SJOGRENS, B2 GLYPROT, MITOM2, LUPANTCOAG, C4, ANTIR, TPO, C3, SMAB, GIANNA #### [facility] , Lupus Anticoagulant Compon 0 03-16-2025 Dilute Prothrombin Time (dPt) 37.3 Normal 0.0-47.6 The [facility] Comment on above: Performed By: #### T 4F, PTT, PT, CBC, CRP, ESR, ADDONUAPLUS, TSH3, CMP #### [place] [address] [place] #### RA, CCP, THYGLOB, JO1, CARDIO GMA, RPR W RFX, CAVAZOS, [id number], ADNA, HISAB, CH50, SJOGRENS, B2 GLYPROT, MITOM2, LUPANTCOAG, C4, ANTIR, TPO, C3, SMAB, GIANNA #### [facility] , dPT Confirm Ratio 1.03 Normal 0.00-1.34 The [facility] Comment on above: Performed By: #### T 4F, PTT, PT, CBC, CRP, ESR, ADDONUAPLUS, TSH3, CMP #### [address] #### RA, CCP, THYGLOB, JO1, CARDIO GMA, RPR W RFX, CAVAZOS, [id number], ADNA, HISAB, CH50, SJOGRENS, B2 GLYPROT, MITOM2, LUPANTCOAG, C4, ANTIR, TPO, C3, SMAB, GIANNA #### [facility] , DRVVT Lupus 42.3 Normal 0.0-47.0 The [facility] Comment on above: Performed By: #### T 4F, PTT, PT, CBC, CRP, ESR, ADDONUAPLUS, TSH3, CMP #### [address] #### RA, CCP, THYGLOB, JO1, CARDIO GMA, RPR W RFX, CAVAZOS, [id number], ADNA, HISAB, CH50, SJOGRENS, B2 GLYPROT, MITOM2, LUPANTCOAG, C4, ANTIR, TPO, C3, SMAB, GIANNA #### [facility] , Interpretation Comment: Normal . The [facility] Comment on above: Result Comment: No l upus anticoagulant was detected. Performed at: [facility] - [facility] [id number] Superintendent Sanitation: Nikolas Parnell MD, Phone: [phone] PERFORMED BY: [place] [id number] PATHOLOGIST MACHINE SETTER SHEET METAL LAKHWINDER MIR M.D. Performed By: #### T 4F, PTT, PT, CBC, CRP, ESR, ADDONUAPLUS, TSH3, CMP #### [address] #### RA, CCP, THYGLOB, JO1, CARDIO GMA, RPR W RFX, CAVAZOS, [id number], ADNA, HISAB, CH50, SJOGRENS, B2 GLYPROT, MITOM2, LUPANTCOAG, C4, ANTIR, TPO, C3, SMAB, GIANNA #### [facility] , PTT-LA 37.9 Normal 0.0-43.5 The [facility] Comment on above: Performed By: #### T 4F, PTT, PT, CBC, CRP, ESR, ADDONUAPLUS, TSH3, CMP #### [address] #### RA, CCP, THYGLOB, JO1, CARDIO GMA, RPR W RFX, CAVAZOS, [id number], ADNA, HISAB, CH50, SJOGRENS, B2 GLYPROT, MITOM2, LUPANTCOAG, C4, ANTIR, TPO, C3, SMAB, GIANNA #### [facility] , Thrombin Time 19.9 Normal 0.0-23.0 The [facility] Comment on above: Performed By: #### T 4F, PTT, PT, CBC, CRP, ESR, ADDONUAPLUS, TSH3, CMP #### [address] #### RA, CCP, THYGLOB, JO1, CARDIO GMA, RPR W RFX, CAVAZOS, [id number], ADNA, HISAB, CH50, SJOGRENS, B2 GLYPROT, MITOM2, LUPANTCOAG, C4, ANTIR, TPO, C3, SMAB, GIANNA #### [facility] , Mitochondrial (M2) Antibodyo n 03-16-2025 Mitochondrial (M2) Antibody <20.0 Normal 0.0-20.0 The [facility] Comment on above: Result Comment: Nega tive 0.0 - 20.0 Equivocal 20.1 - 24.9 Positive >24.9 Mitochondrial (M2) Antibodies are found in 90-96% of patients with primary biliary cirrhosis. Performed at: [facility] [address] [place], [place] [id number] Superintendent Sanitation: Ronaldo Deleon PhD, Phone: [phone] Performed By: #### T 4F, PTT, PT, CBC, CRP, ESR, ADDONUAPLUS, TSH3, CMP #### [address] #### RA, CCP, THYGLOB, JO1, CARDIO GMA, RPR W RFX, CAVAZOS, [id number], ADNA, HISAB, CH50, SJOGRENS, B2 GLYPROT, MITOM2, LUPANTCOAG, C4, ANTIR, TPO, C3, SMAB, GIANNA #### [facility] , Partial Thromboplastin Timeo n 03-16-2025 aPTT Coag (Bld) [Time] 30.0 s Normal 25.1-36.5 The [facility] Comment on above: Result Comment: A he matocrit value greater than 55% may lead to inaccurate results in coagulation testing. Patients having hematocrit values >55% require a special collection tube for coagulation studies. Please contact the laboratory at [phone] for redraw instructions. PERFORMED BY: [place] [id number] PATHOLOGIST MACHINE SETTER SHEET METAL LAKHWINDER MIR M.D. Performed By: #### T 4F, PTT, PT, CBC, CRP, ESR, ADDONUAPLUS, TSH3, CMP #### [address] #### RA, CCP, THYGLOB, JO1, CARDIO GMA, RPR W RFX, CAVAZOS, [id number], ADNA, HISAB, CH50, SJOGRENS, B2 GLYPROT, MITOM2, LUPANTCOAG, C4, ANTIR, TPO, C3, SMAB, GIANNA #### [facility] , Prothrombin Time INRon 03-16 INR Coag (PPP) [Relative time] 1.0 {INR} Normal [facility] Comment on above: [...] CBC, CRP, ESR, ADDONUAPLUS, TSH3, CMP #### [address] #### RA, CCP, THYGLOB, JO1, CARDIO GMA, RPR W RFX, CAVAZOS, [id number], ADNA, HISAB, CH50, SJOGRENS, B2 GLYPROT, MITOM2, LUPANTCOAG, C4, ANTIR, TPO, C3, SMAB, GIANNA #### [facility] , PT Coag (PPP) [Time] 11.6 s Normal 9.0-12.9 [facility] Comment on above: Result Comment: A he matocrit value greater than 55% may lead to inaccurate results in coagulation testing. Patients having hematocrit values >55% require a special collection tube for coagulation studies. Please contact the laboratory at [phone] for redraw instructions. Performed By: #### T 4F, PTT, PT, CBC, CRP, ESR, ADDONUAPLUS, TSH3, CMP #### [place] [address] [place] #### RA, CCP, THYGLOB, JO1, CARDIO GMA, RPR W RFX, CAVAZOS, [id number], ADNA, HISAB, CH50, SJOGRENS, B2 GLYPROT, MITOM2, LUPANTCOAG, C4, ANTIR, TPO, C3, SMAB, GIANNA #### [facility] , RPR w/rfx to Quant TP Abson 03-16-2025 RPR, Rfx Quant RPR Non-Reactive Normal Non Reactive [facility] Comment on above: Result Comment: Perf ormed at: - [facility] [address] [id number] Superintendent Sanitation: Ronaldo Deleon PhD, Phone: [phone] PERFORMED BY: [place] [id number] PATHOLOGIST MACHINE SETTER SHEET METAL LAKHWINDER MIR M.D. Performed By: #### T 4F, PTT, PT, CBC, CRP, ESR, ADDONUAPLUS, TSH3, CMP #### [address] #### RA, CCP, THYGLOB, JO1, CARDIO GMA, RPR W RFX, CAVAZOS, [id number], ADNA, HISAB, CH50, SJOGRENS, B2 GLYPROT, MITOM2, LUPANTCOAG, C4, ANTIR, TPO, C3, SMAB, GIANNA #### [facility] , Rheumatoid Factoron 03-16-20 Rheumatoid Factor 24.8 [IU]/mL High <14.0 The [facility] Comment on above: Result Comment: Perf ormed at: - [facility] [address] [id number] Superintendent Sanitation: Ronaldo Deleon PhD, Phone: [phone] Performed By: #### T 4F, PTT, PT, CBC, CRP, ESR, ADDONUAPLUS, TSH3, CMP #### [place] [address] [place] #### RA, CCP, THYGLOB, JO1, CARDIO GMA, RPR W RFX, CAVAZOS, [id number], ADNA, HISAB, CH50, SJOGRENS, B2 GLYPROT, MITOM2, LUPANTCOAG, C4, ANTIR, TPO, C3, SMAB, GIANNA #### [facility] , Scleroderma 70 Antibodieson 03-16-2025 Scleroderma 70 Antibodies <0.2 Normal 0.0-0.9 The [facility] Comment on above: Performed By: #### T 4F, PTT, PT, CBC, CRP, ESR, ADDONUAPLUS, TSH3, CMP #### [place] [address] [place] #### RA, CCP, THYGLOB, JO1, CARDIO GMA, RPR W RFX, CAVAZOS, [id number], ADNA, HISAB, CH50, SJOGRENS, B2 GLYPROT, MITOM2, LUPANTCOAG, C4, ANTIR, TPO, C3, SMAB, GIANNA #### [facility] , Sjogrens Anti-SSA/SSBon 02-28 SS-A/Ro Sjogrens Antibody <0.2 Normal 0.0-0.9 [facility] Comment on above: Performed By: #### T 4F, PTT, PT, CBC, CRP, ESR, ADDONUAPLUS, TSH3, CMP #### [address] #### RA, CCP, THYGLOB, JO1, CARDIO GMA, RPR W RFX, CAVAZOS, [id number], ADNA, HISAB, CH50, SJOGRENS, B2 GLYPROT, MITOM2, LUPANTCOAG, C4, ANTIR, TPO, C3, SMAB, GIANNA #### [facility] , SS-B/La Sjogrens Antibody <0.2 Normal 0.0-0.9 [facility] Comment on above: Performed By: #### T 4F, PTT, PT, CBC, CRP, ESR, ADDONUAPLUS, TSH3, CMP #### [address] #### RA, CCP, THYGLOB, JO1, CARDIO GMA, RPR W RFX, CAVAZOS, [id number], ADNA, HISAB, CH50, SJOGRENS, B2 GLYPROT, MITOM2, LUPANTCOAG, C4, ANTIR, TPO, C3, SMAB, GIANNA #### [facility] , Smooth Muscle Antibodyon Smooth Muscle Antibody 9 Normal 0-19 [facility] Comment on above: Result Comment: Nega tive 0 - 19 Weak positive 20 - 30 Moderate to strong positive >30 Actin Antibodies are found in 52-85% of patients with autoimmune hepatitis or chronic active hepatitis and in 22% of patients with primary biliary cirrhosis. Performed By: #### T 4F, PTT, PT, CBC, CRP, ESR, ADDONUAPLUS, TSH3, CMP #### [facility] [address] [id number] [place] #### RA, CCP, THYGLOB, JO1, CARDIO GMA, RPR W RFX, CAVAZOS, [id number], ADNA, HISAB, CH50, SJOGRENS, B2 GLYPROT, MITOM2, LUPANTCOAG, C4, ANTIR, TPO, C3, SMAB, GIANNA #### [facility] , Thyroglobulin, Quant + Tg Ab on 03-16-2025 Antithyroglobulin Ab <1.0 Normal 0.0-0.9 [facility] Comment on above: Result Comment: Thyr oglobulin Antibody measured by [facility] Methodology It should be noted that the presence of thyroglobulin antibodies may not be pathogenic nor diagnostic, especially at very low levels. The assay umbrella cutter has found that four percent of individuals without evidence of thyroid disease or autoimmunity will have positive TgAb levels up to 4 IU/mL. Performed By: #### T 4F, PTT, PT, CBC, CRP, ESR, ADDONUAPLUS, TSH3, CMP #### [facility] [address] [id number] [place] #### RA, CCP, THYGLOB, JO1, CARDIO GMA, RPR W RFX, CAVAZOS, [id number], ADNA, HISAB, CH50, SJOGRENS, B2 GLYPROT, MITOM2, LUPANTCOAG, C4, ANTIR, TPO, C3, SMAB, GIANNA #### [facility] , Thyroglobulin by DORYS 39.2 ng/mL High 1.5-38.5 [facility] Comment on above: [...] quantitation is 0.1 ng/mL Thyroglobulin measured by [employer] Immunometric Assay Performed at: [facility] [employer] [id number] Superintendent Sanitation: Ronaldo Deleon PhD, Phone: [phone] Performed By: #### T 4F, PTT, PT, CBC, CRP, ESR, ADDONUAPLUS, TSH3, CMP #### [place] [address] [place] #### RA, CCP, THYGLOB, JO1, CARDIO GMA, RPR W RFX, CAVAZOS, [id number], ADNA, HISAB, CH50, SJOGRENS, B2 GLYPROT, MITOM2, LUPANTCOAG, C4, ANTIR, TPO, C3, SMAB, GIANNA #### [facility] , Thyroid Peroxidase Antibodie son 03-16-2025 Thyroid Peroxidase Antibodies 9 [IU]/mL Normal 0-34 [facility] Comment on above: Result Comment: Perf ormed at: [facility] [id number] Superintendent Sanitation: Ronaldo Deleon PhD, Phone: [phone] Performed By: #### T 4F, PTT, PT, CBC, CRP, ESR, ADDONUAPLUS, TSH3, CMP #### [address] #### RA, CCP, THYGLOB, JO1, CARDIO GMA, RPR W RFX, CAVAZOS, [id number], ADNA, HISAB, CH50, SJOGRENS, B2 GLYPROT, MITOM2, LUPANTCOAG, C4, ANTIR, TPO, C3, SMAB, GIANNA #### [facility] , Thyroid Stimulating Hormoneo n 03-16-2025 TSH Qn 2.99 m[IU]/L Normal 0.45-5.33 The [facility] Comment on above: Result Comment: PERF ORMED BY: [place] [id number] PATHOLOGIST MACHINE SETTER SHEET METAL LAKHWINDER MIR M.D. Performed By: #### T 4F, PTT, PT, CBC, CRP, ESR, ADDONUAPLUS, TSH3, CMP #### [facility] [address] [place] [address] [place] #### RA, CCP, THYGLOB, JO1, CARDIO GMA, RPR W RFX, CAVAZOS, [id number], ADNA, HISAB, CH50, SJOGRENS, B2 GLYPROT, MITOM2, [...] a full glass of water Pickup at [facility]/pharmacy #[id number] Unchanged acetaminophen (Tylenol) See instructions Oral Contact [...] physician if questions or concerns Pharmacy Information [facility]/pharmacy #[id number]: [address] [place], [place] [phone] Allergies Adhesive Bandage (Unknown) Betadine (Unknown) codeine [...] choosing us for your care. Normal [facility] Office/Clin ic Noteon 03-14-2025 Gastroenterology [...] BID, # 540 tab(s), Refills(s) 0, Pharmacy: [facility]/pharmacy #[id number], 162, cm, 04/09/24 13:38:00 EDT, [...] BIOPSY: ??? COLONIC MUCOSA WITHIN NORMAL LIMITS. [facility] [place] 06/14/24 @ [facility]: IMPRESSION: 1. Normal swallowing [...] and im (more content not included)... Normal [facility] Comment on above: Result Comment: Elec tronically Signed By: Navi MACK, Lester Gerber\Date and Time Signed: 03/14/25 09:13 EDT AMYLASEon 03-08-2025 Amylase [Catalytic activity/Vol] 46 U/L Normal 28-100 [facility] Comment on above: Performed By: #### A MYL #### [facility] ([facility]) [address] [place] [address] VIR CBC WITH AUTO DIFFERENTIALon 03-08-2025 BASOPHILS ABSOLUTE COUNT (10*3/UL) BY AUTOMATED COUNT 0.0 10*3/uL Normal 0.0-0.2 [facility] Comment on above: Performed By: #### C BCA #### [facility] ([facility]) [address] [place] [address] VIR BASOPHILS RELATIVE PERCENT BY AUTOMATED COUNT 0.4 % [facility] Comment on above: Performed By: #### C BCA #### [facility] ([facility]) [address] [place] [address] VIR CELLAVISION DIFFERENTIAL TYPE AUTOMATED DIFFERENTIAL Normal [facility] Comment on above: Performed By: #### C BCA #### [facility] ([facility]) [address] [place] [address] VIR Eosinophils (Bld) [#/Vol] 0.1 10*3/uL Normal 0.0-0.4 [facility] Comment on above: Performed By: #### C BCA #### [facility] ([facility]) [address] [place] [address] VIR EOSINOPHILS RELATIVE PERCENT BY AUTOMATED COUNT 0.7 % Normal [facility] Comment on above: Performed By: #### C BCA #### [facility] ([facility]) [address] [place] [address] VIR Erythrocyte distribution width (RBC) [Ratio] 13.4 % Normal 11.5-15 [facility] Comment on above: Performed By: #### C BCA #### [facility] ([facility]) [address] [place] [address] VIR Hematocrit (Bld) [Volume fraction] 42.1 % Normal 35-47 [facility] Comment on above: Performed By: #### C BCA #### [facility] ([facility]) [address] [place] [address] VIR Hemoglobin (Bld) [Mass/Vol] 14.5 g/dL Normal 11.7-15.5 [facility] Comment on above: Performed By: #### C BCA #### [facility] ([facility]) [address] [facility] [address] [place] [address] VIR LYMPHOCYTES ABSOLUTE COUNT (10*3/UL) BY AUTOMATED COUNT 3.6 10*3/uL High 1.0-3.5 [facility] Comment on above: Performed By: #### C BCA #### [facility] ([facility]) [address] [place] [address] VIR LYMPHOCYTES RELATIVE PERCENT BY AUTOMATED COUNT 40.5 % Normal [facility] Comment on above: Performed By: #### C BCA #### [facility] ([facility]) [address] [place] [address] VIR MCH (RBC) [Entitic mass] 29.7 pg Normal 27-34 [facility] Comment on above: Performed By: #### C BCA #### [facility] ([facility]) [address] [place] [address] VIR MCHC (RBC) [Mass/Vol] 34.4 g/dL Normal 32-36 [facility] Comment on above: Performed By: #### C BCA #### [facility] ([facility]) [address] [place] [address] VIR MCV (RBC) [Entitic vol] 86 fL Normal 80-100 [facility] Comment on above: Performed By: #### C BCA #### [facility] ([facility]) [address] [place] [address] VIR MONOCYTES ABSOLUTE COUNT (10*3/UL) BY AUTOMATED COUNT 0.5 10*3/uL Normal 0.0-0.9 [facility] Comment on above: Performed By: #### C BCA #### [facility] ([facility]) [address] [place] [address] VIR MONOCYTES RELATIVE PERCENT BY AUTOMATED COUNT 5.1 % Normal [facility] Comment on above: Performed By: #### C BCA #### [facility] ([facility]) [address] [place] [address] VIR NEUTROPHILS ABSOLUTE COUNT BY AUTOMATED COUNT 4.7 10*3/uL Normal 1.5-6.6 [facility] Comment on above: Performed By: #### C BCA #### [facility] ([facility]) [address] [place] [address] VIR NEUTROPHILS RELATIVE PERCENT BY AUTOMATED COUNT 53.3 % Normal [facility] Comment on above: Performed By: #### C BCA #### [facility] ([facility]) [address] [place] [address] VIR Platelet mean volume (Bld) [Entitic vol] 9.7 fL Normal 7-12 [facility] Comment on above: Performed By: #### C BCA #### [facility] ([facility]) [address] [place] [address] VIR Platelets (Bld) [#/Vol] 276 10*3/uL Normal 150-450 [facility] Comment on above: Performed By: #### C BCA #### [facility] ([facility]) [address] [place] [address] VIR RBC COUNT 4.88 X10E12/L Normal 3.8-5.2 [facility] Comment on above: Performed By: #### C BCA #### [facility] ([facility]) [address] [place] [address] VIR WBC (Bld) [#/Vol] 8.9 10*3/uL Normal 4-11 [facility] Comment on above: Performed By: #### C BCA #### [facility] ([facility]) [address] [place] [address] VIR COMPREHENSIVE METABOLIC PANE Angel 03-08-2025 Albumin [Mass/Vol] 4.4 g/dL Normal 3.2-5.3 [facility] Comment on above: Performed By: #### C MP #### [facility] ([facility]) [address] [place] [address] VIR ALP [Catalytic activity/Vol] 86 U/L Normal 39-130 [facility] Comment on above: Performed By: #### C MP #### [facility] ([facility]) [address] [place] [address] VIR ALT [Catalytic activity/Vol] 22 U/L Normal <=31 [facility] Comment on above: Performed By: #### C MP #### [facility] ([facility]) [address] [place] [address] VIR Anion gap [Moles/Vol] 13 mmol/L Normal 5-15 [facility] Comment on above: Performed By: #### C MP #### [facility] ([facility]) [address] [place] [address] VIR AST [Catalytic activity/Vol] 18 U/L Normal <=41 [facility] Comment on above: Performed By: #### C MP #### [facility] ([facility]) [address] [place] [address] VIR Bilirubin [Mass/Vol] 0.3 mg/dL Normal 0.3-1.2 [facility] Comment on above: Performed By: #### C MP #### [facility] ([facility]) [address] [place] [address] VIR Calcium [Mass/Vol] 9.3 mg/dL Normal 8.5-10.5 [facility] Comment on above: Performed By: #### C MP #### [facility] ([facility]) [address] [place] [address] VIR Chloride [Moles/Vol] 104 mmol/L Normal 98-109 [facility] Comment on above: Performed By: #### C MP #### [facility] ([facility]) [address] [place] [address] VIR CO2 [Moles/Vol] 23 mmol/L Normal 22-32 [facility] Comment on above: Performed By: #### C MP #### [facility] ([facility]) [address] [place] [address] VIR Creatinine [Mass/Vol] 0.69 mg/dL Normal 0.40-1.00 [facility] Comment on above: Result Comment: METH OD TRACEABLE TO IDMS STANDARD Performed By: #### C MP #### [facility] ([facility]) [address] [place] [address] VIR EGFR (CKD-EPI) NON-RACE DEPENDENT >^90 Normal >=60 [facility] Comment on above: Result Comment: Repo rted eGFR is based on the CKD-EPI 2020 equation that does not use a race coefficient. Performed By: #### C MP #### [facility] ([facility]) [address] [place] [address] VIR Glucose [Mass/Vol] 83 mg/dL Normal 65-99 [facility] Comment on above: Performed By: #### C MP #### [facility] ([facility]) [address] [place] [address] VIR Potassium [Moles/Vol] 3.5 mmol/L Normal 3.5-5.0 [facility] Comment on above: Performed By: #### C MP #### [facility] ([facility]) [address] [place] [address] VIR Protein [Mass/Vol] 7.2 g/dL Normal 6.0-8.0 [facility] Comment on above: Performed By: #### C MP #### [facility] ([facility]) [address] [place] [address] VIR Sodium [Moles/Vol] 140 mmol/L Normal 134-146 [facility] Comment on above: Performed By: #### C MP #### [facility] [facility] [address] [place] [address] VIR Urea nitrogen [Mass/Vol] 9 mg/dL Normal 5-23 [facility] Comment on above: Performed By: #### C MP #### [facility] ([facility]) [address] [place] [address] VIR LIPASEon 03-08-2025 Lipase [Catalytic activity/Vol] 51 U/L Normal 11-82 [facility] Comment on above: Performed By: #### L IPA #### [facility] ([facility]) [address] [place] [address] VIR TSH WITH REFLEXon 03-08-2025 TSH 2.65 uIU/mL Normal 0.49-4.67 [facility] Comment on above: Performed By: #### T SHR #### [facility] ([facility]) [address] [place] [address] VIR IGP,APTIMA HPV,AGE GDLNon AGE GDLN ACOG TESTING Note . [facility] Comment on above: TESTS RESULT FLAG UN ITS REF RANGE LAB Clinician Provided Cytology Information Source.............Vagina No. of containers..01 ThinPrep Vial Age Algo ACOG [facility]... 31 FLAG LEGEND: L-Low Normal,H-High Normal,LL-Alert Low,HH-Alert High <-Panic Low,>-Panic High,A-Abnormal,AA-Critical Abnormal Performed at: 01 =[address] [address] Fay Nava MD, HPV APTIMA Negative Negative [facility] Comment on above: This nucleic acid am plification test detects fourteen high- risk HPV types (16,18,31,33,35,39,45,51,52,56,58,59,66,68) without differentiation. Performed at: =[address] [id number] Superintendent Sanitation: Fay Nava MD, Phone: [phone] Performed at: [address] [id number] Superintendent Sanitation: Fay Nava MD, Phone: [phone] IGP, APTIMA HPV, RFX 16/18,45 Note . [facility] Comment on above: TESTS RESULT FLAG UN ITS REF RANGE LAB DIAGNOSIS: 02 NEGATIVE FOR INTRAEPITHELIAL LESION OR MALIGNANCY. Specimen adequacy: 02 Satisfactory for evaluation. Performed by: Taisha Bello Roller Presser Operator (ASC) . 02 Note: Note 02 The [...] High,A-Abnormal,AA-Critical Abnormal Performed at: 02 [address] [facility] [address] [address] Fay Nava MD, SPATULA-ALONE VAGINA [facility] 12-26-2024 [facility] Office Visit (TIMOTHY ) NOBLE CASTILLO ([id number]) 1985 F Date Time Provider Department 12/26/24 [...] , HBA1C , VITD25 in the last 66130 hours. X-ray weight bearing RIGHT FOOT with calcaneus axial MRI reviewed from outside / non [facility] facility ASSESSMENT: Z98.890 History of foot [...] - Fully Assessed Reason for Visit: New [859713] Pain [78] Primary Visit Diagnosis:History of foot surgery [Z98.890] Other Visit Diagnoses:Peroneal tendinitis of right lower extremity [M76.71] Orthopedic hardware present [Z97.8] Order(s):XR CALCANEUS 2V AXIAL/LAT RIGHT [[id number]] Order #: [id number] FUTURE XR FOOT GENERAL 3V AP/LAT/OBL RIGHT [[id number]] Order #: [id number] FUTURE Prescriptions as of 12/26/2024 - lamoTRIgine (LAMICTAL) (more content not included)... Normal [facility] No Panel Informationon 12-26 IMPRESSION: Postoperative and degenerative changes. Retail Salesman: ZEINA Transcribe Date/Time: Dec 26 2024 6:52P Dictated by : YAHIR GOLDMAN MD This examination was interpreted and the report reviewed and electronically signed by: YAHIR GOLDMAN MD on Dec 26 2024 6:53PM EST DIVISION OF RADIOLOGY Radiology Study observation (narrative) [facility] No Panel InformationOrdered By: Ccf Provider on 12-26-2024 [facility] XR CALCANEUS 2V AXIAL/LAT RT on [...] AP/LAT/OBL RT HISTORY: rt heel pain (accession [id number]), rt foot pain (accession [id number]) History of foot surgery . TECHNIQUE: XR CALCANEUS 2V AXIAL/LAT RT, XR FOOT 3V AP/LAT/OBL RT Laterality: RIGHT Number of different views (projections): 2 (accession [id number]), 3 (accession [id number]) M: XB_1 COMPARISON: RESULT: And partial appearing bony ankylosis. Osteotomy of the medial cuneiform with intact appearing surgical hardware. Mild first MTP degenerative changes. No acute fracture or dislocation. There are no bony erosions. IMPRESSION: Postoperative and degenerative changes. Retail Salesman: PSCB Transcribe Date/Time: Dec 26 2024 6:52P Dictated by : YAHIR GOLDMAN MD This examination was interpreted and the report reviewed and electronically signed by: YAHIR GOLDMAN MD on Dec 26 2024 6:53PM EST [id number] Normal [facility] XR Calcaneus - right 2 Views on 12-26-2024 * * *Final Report* * * DATE OF EXAM: Dec 26 2024 3:59PM LZX 5307 - XR CALCANEUS 2V AXIAL/LAT RT / PROCEDURE REASON: History of foot surgery * * * * Physician Interpretation * * * * EXAMINATION: XR CALCANEUS 2V AXIAL/LAT RT, XR FOOT 3V AP/LAT/OBL RT HISTORY: rt heel pain (accession [id number]), rt foot pain (accession [id number]) History of foot surgery . TECHNIQUE: XR CALCANEUS 2V AXIAL/LAT RT, XR FOOT 3V AP/LAT/OBL RT Laterality: RIGHT Number of different views (projections): 2 (accession [id number]), 3 (accession [id number]) M: XB_1 COMPARISON: RESULT: And partial appearing bony ankylosis. Osteotomy of the medial cuneiform with intact appearing surgical hardware. Mild first MTP degenerative changes. No acute fracture or dislocation. There are no bony erosions. DIVISION OF RADIOLOGY Provider, [facility] - 12/26/2024 * * *Final Report* * * DATE OF EXAM: Dec 26 2024 3:59PM LZX 5307 - XR CALCANEUS 2V AXIAL/LAT RT / PROCEDURE REASON: History of foot surgery * * * * Physician Interpretation * * * * EXAMINATION: XR CALCANEUS 2V AXIAL/LAT RT, XR FOOT 3V AP/LAT/OBL RT HISTORY: rt heel pain (accession [id number]), rt foot pain (accession [id number]) History of foot surgery . TECHNIQUE: XR CALCANEUS 2V AXIAL/LAT RT, XR FOOT 3V AP/LAT/OBL RT Laterality: RIGHT Number of different views (projections): 2 (accession [id number]), 3 (accession [id number]) M: XB_1 COMPARISON: RESULT: And partial appearing bony ankylosis. Osteotomy of the medial cuneiform with intact appearing surgical hardware. Mild first MTP degenerative changes. No acute fracture or dislocation. There are no bony erosions. IMPRESSION IMPRESSION: Postoperative and degenerative changes. Retail Salesman[facility] Transcribe Date/Time: Dec 26 2024 6:52P Dictated by : YAHIR GOLDMAN MD This examination was interpreted and the report reviewed and electronically signed by: YAHIR GOLDMAN MD on Dec 26 2024 6:53PM [facility] XR FOOT 3V AP/LAT/OBL RTon [...] AP/LAT/OBL RT HISTORY: rt heel pain (accession [id number]), rt foot pain (accession [id number]) History of foot surgery . TECHNIQUE: XR CALCANEUS 2V AXIAL/LAT RT, XR FOOT 3V AP/LAT/OBL RT Laterality: RIGHT Number of different views (projections): 2 (accession [id number]), 3 (accession [id number]) M: XB_1 COMPARISON: RESULT: And partial appearing bony ankylosis. Osteotomy of the medial cuneiform with intact appearing surgical hardware. Mild first MTP degenerative changes. No acute fracture or dislocation. There are no bony erosions. IMPRESSION: Postoperative and degenerative changes. Retail Salesman: ZEINA Transcribe Date/Time: Dec 26 2024 6:52P Dictated by : YAHIR GOLDMAN MD This examination was interpreted and the report reviewed and electronically signed by: YAHIR GOLDMAN MD on Dec 26 2024 6:53PM EST [id number] Normal [facility] XR Foot - right AP and [...] AP/LAT/OBL RT HISTORY: rt heel pain (accession [id number]), rt foot pain (accession [id number]) History of foot surgery . TECHNIQUE: XR CALCANEUS 2V AXIAL/LAT RT, XR FOOT 3V AP/LAT/OBL RT Laterality: RIGHT Number of different views (projections): 2 (accession [id number]), 3 (accession [id number]) M: XB_1 COMPARISON: RESULT: And partial appearing bony ankylosis. Osteotomy of the medial cuneiform with intact appearing surgical hardware. Mild first MTP degenerative changes. No acute fracture or dislocation. There are no bony erosions. DIVISION OF RADIOLOGY Provider, [facility] - 12/26/2024 * * *Final Report* * * DATE OF EXAM: Dec 26 2024 3:59PM LZX 5337 - XR FOOT 3V AP/LAT/OBL RT / PROCEDURE REASON: multiple diagnoses * * * * Physician Interpretation * * * * EXAMINATION: XR CALCANEUS 2V AXIAL/LAT RT, XR FOOT 3V AP/LAT/OBL RT HISTORY: rt heel pain (accession [id number]), rt foot pain (accession [id number]) History of foot surgery . TECHNIQUE: XR CALCANEUS 2V AXIAL/LAT RT, XR FOOT 3V AP/LAT/OBL RT Laterality: RIGHT Number of different views (projections): 2 (accession [id number]), 3 (accession [id number]) M: XB_1 COMPARISON: RESULT: And partial appearing bony ankylosis. Osteotomy of the medial cuneiform with intact appearing surgical hardware. Mild first MTP degenerative changes. No acute fracture or dislocation. There are no bony erosions. IMPRESSION IMPRESSION: Postoperative and degenerative changes. Retail Salesman: [facility] Transcribe Date/Time: Dec 26 2024 6:52P Dictated by : YAHIR GOLDMAN MD This examination was interpreted and the report reviewed and electronically signed by: YAHIR GOLDMAN MD on Dec 26 2024 6:53PM [facility] Coding Summary.on 04-21-2024 Coding Summary. TPMYDekt72ORq6kXq+PG hlYWQ+P B0ETKUyF57cjQQjqN7rB0SDODlB UxgcTBCWETuNBoFdxwVvKU7axQC jZXJu IC8+TE0zIKOzOcnreGLdr6J2gTD 3Q27tnw0gKLycqVB9IXTnDvQjva bap3kypEp6HFvcRgmgHjSs YIBeqX06BZB9oM01Mj18bRIvqKF uj2jdmBa4EsCsFIMmLKY9mZfeGP aek6JrVKLrZ54upCZds5I0 WRQyeKqyzLQzPoCuqVU0zH8dGVa amjrpq0vuhgsdAax0ot49wDKvp2 N1hIQ1G0VrlqS6CTYjuBCs QfztgSOIpW7azhlmx3ccebnaFmT gFDWdHRe4UPl0HVCzcMeeXgLbZP 01ICY9HKHssdOiY1FfAOFh tDrqAxP4k5F9Td8RH6GBMrctP0Q NTUFSWTwvdGQ+UD91sg29V7EdJh fpVsu2MLOfBBX3wTA8hY2c RPUvYNngd0F5iUK6B2AikrNuzo7 dv2gvABBhSNzaE80ycUIeb6J3TJ XrnTP1EIHnaVkmCtQhtM06 Oyc+MLCmoSgro0EuUninz9zkk6n clHa2OqqeUGUmxqNqzGzdMVU5l6 XsJi1vYVQnoVH0rIB9uQ7i TyNwJaH5ODlvF940AwOvaLJjQbj mO40sJ2NxiGR+FHKcJdl1NBPjcH dhDF2oF6DcZQPvwewemOFd hZldRS8nOXMamoqgFHVrqR8uLRR iW4s7VzEzVzL5ZCsaD7YbKIWwjd fiPy26cL6tGtKsZzM6VXmm B2XnmeF6ORTbzRQxLPpqZUZ7L68 dz4B0PGCrPHByNDV4kQF5qE4xsA lnbjogbGVmdDsgdmVydGlj GVgyOXmiV503GTXsbKsiVnLhMAy uZyBEYXRlOiAgMDYvMjIvMjAyND wvdGQ+RYAkGBL1fPszCOOz eHYwFSmzIx2tqZwgzFbkQV5jZBF yfcasUJTxdJ7dWKLcwYUxaBoxLA 0aKDTocvesn357KzPtKWN5 FMQwkFTgT2CjvT8uWnMlASOdZJQ hO0KchOBoXXoeA583JJlbDqM7XJ MmlzKaK6QrPPYeoBgpOsL3 v2H8Ul0Jc0OcdsbkH5UuwEUyRhF xZfpdYJy9B9FzEqcckKS+PC90YW IbIX27VQq4VYB0tEwtWUlx VLCiL1FfoP6qGxCbUVCkDHLjUte +PHRhYmxlIHdpZHRoPScxMDAlJy CdtXpoPC3gKj7sQNDkXKRv yGzhyGDnLbOzy4ofQLGyOYmxFJ2 jkNkdA0NswKC7JQYzb8v5Qc09X4 0fW2UbeBU+MUZkkDV3kUS6 zM2xKbDaCxP6NUotP979PqUteVP lSibmh8zgm4jwjVn7BkF9LYXanc QswYjiGWD5c7KzLn33W02p IHdpZHRoPSIxNSUiIHZhbGlnbj0 luV7pYr2+RQXnkIM3cFZ0zE7ySd FkDaY0IEdqO664XkZvmPKq Zulol5btb3esyBd9JvQcTIUckcX dyDkhKIZ8g8UoJd60Z8XwcBeso6 HkXgi3zd99cHFaq7X2bMX1 Q5KqIPVfpwxdvOAatLuxHJ9zWJR yzoymSROvtS0jQEWpZ2a0AlWuVp K8PRdaZ7HpkeW1NOSgjABl UITomMEBiC4sawawd0jfgtbnRfO pLMUvLJh1IFp7QDPyrGbnRlJrBJ K5OuE5MZH0rEBhoG8bzNnc nlodfD9wTna+FHH4nILnhCCBTJ9 lOjwvdGQ+UGEpQKU6wGhuNWncEF EwmY4pELBfZ5t8DmXqYnZ2 RKwfR1DzppE8ZSUgiQJvAPEvxTX UkS4hpbzou6nbocprKmTqPKKuOE b0VGj9JPPmhCroNaPwNNX4 PcL5OJK2rYOmqE7zyBvayywdcP5 wOyc+JvpnxSyhRZZ0YNu8T1DkLo a3IDEyyOkrVW9reVBcOZcv Fk5ovTjobXfpRE1iCCPliqfkc87 7MqBvy5rcRPKvaVKgRArtCRM5T2 6sm7N6WTXeBFWeENZ0pYN6 lS2ofMucyslqvZSurDzumeInhOd aGMobQNdiL652DQCcnQsvHjNnBU t0J2HgKba6TSWhrZsdDP7g xUPoFGytRh6plSmvuFluVV4jCBK ryjsyh324OsBxh0oaRFVblNPeRL xuGTH5W32uy2P4PLHpIJNj LRR8lFQ4kX7ydJuzsopeiGRtbZy khbCnsTxeVCcaECrqP401CBKzfQ krAsMoaBv8E6NjHuz0VXWg sOyrTO6ujGFcJKloTz5kxTtbuDi vBX1iNCEobbxmy487KpWgx0hfNJ UxaVQmCEiaTEE3J76bw3T7 ZLVoHASyILU2tCC2oM0hbJudakg gbGVmdDsgdmVydGljYWwtYWxpZ2 46IHRvcDsnPlBhdGllbnQg FMafGOp2J0BwDxyogNK+KQ57NQV fNR49zNOgeOTcj0gqxLt9JyZdNM OkWOD5pUoaSKrec8KdHPFi W80wjSVqy4J8TBLndBgmvGHvMcW cpJU6xH4xPIfscesid0kwwgywLd aue3mavq12qA96B43tUZuf URSmJLJvZCRjCCYcvVkujt2cqO3 wIi8+MRBqaFN8rRC2tE4fSUObEj V2OOpyN379TvTwkDVeYyto r8bew5yqfGj3VmW8GXUkcuCjqLz bXYQ9l7GuPc13F95dANxlQCVqVG GgZZFqEISonMdcnl3anL0z Ii8+PGRdfXG4mLX9pT5eLqJaOpC 0THyeS300JvJbtPRfFszoK40wF6 JvdXA+ZMMkQhc2KTJnwOqe HZ5iyXKxOBgmEx3jDGH4SbYzJiN gESfbZ8CnNKFwcuqciweweFI7ML ExHAYnpZ81Yj8xaDzpXGXv aEFHeO0rtkmgs6xrjunuFtZtSFM aRAh7KYi5TJGqoDypVpCcYGN8Ie O8EVQ4hYLxnL9ovXcxraoe bL2cT7NxJVKstgvvCr54fI1mUdX pOfP2XUuxGox+WV7AZqyjHDiLOG UAOB7RMC87JV91mJXmi0G7 aZH2L9ReAJVxjtkgjeigaEQ5EEW vXYIpqG44rNSyGAsdJo8hb3X7x1 50IQMcTMAinR51Oo7fvVuk MDInwPYGcB6hogrif0afqmgeXzT lAYDqTSl2CLa5DLGofXacUxKzOE T9HfM1FSD5yHBfxF7wrHoz uvoatZ0lWja+QRDyVVHzMFy3Cdb vdGQ+OJLsTPC4cUvuIPdsGTAgqZ 4mOOBoO9g6DqJfGzH0SPla A3CpWTYhezdmJa89zC0lGqPtSmC 8KQxjD0VkwkW0XEBbyUNdIZutYP B6M63nw5Q7QHMrWLGqRTD0 lPZ4aK5wuDqhoufiaPYweVniyyR baJbjHYmlHLoeV392AELxeQrcHx O1JEilBEYfMO82EI01tJDc v9F1dYU1U6WlKJOvesaelatraNX 7WVEuAWJvrB94kNMoIZxwRx9cx0 K4a442GZEvFQBgvH67Ie3s wZztIQNizFBCzY7tvpmnl4qayni pWsNxRBPcETl7ABt1SENahPqyJi PiNRU8VdI9QAY0hMPbsL9j kGdxdcnezI8fUiq+RmVtYWxlPC9 0PE71yRCxr7J6wEL2D9UmOWDmpk bzldkamFK8MUEzGOPdiQ88 fTLsKJywPc1mt6Q5t948NMTsHYZ zcY15Wi9quJflMVEuzFRJiY5ajm kmm1dtihhoUxEcRMZyTWp0 KAg9JUFwrOhzUsFvPOV5OmV9INW 3dCNchP5txAcsfymdhG3nUxn+TG KxZTQsc3Xzr4BiHN82VH51 K6NeGmukaALywVE+PHRhYmxlIHd fICFwNNmeGWCxJmVceQwgAV8fIn 9yZGVyLWNvbGxhcHNlOiBj o2fsCAUgTAtyNM7neSjsL4PeaJM 0EEQkn6c5Ll21H72nI1FcjPB+PG QrmZP4pIY9cX0nLkBwQcS8 IYhiS555NoZtsTFgLppum3nvc7d cgCc8XiHnHKEyvmEgoQxcIHP0a4 OrGi83J58bAExuDSKaLVAw BAKaPNJzxVpgze9doT3mXw7+PGN ovGG2uUG7pC5yYfVzFsK3YFfgO2 90TeBdgUKpTzcsO37wH5Td dXA+DHZiRge0MVOauYunLN6rlBI oNVtoHd6hBGR6CaWoDrOqSFvvE0 HgYNAofeiqakeziDJ7HOYk OVPwfD60Mm6bqOdbRi2oJQHuVND 2KSVkeSKnM2CdqM9gJcVeUQDgNI MgB4GruPOqPAwmJ156UQwr QrW9GAEryvSgX4NpPXGizZvbTfL 0g5R2Ha8TzTdscUOwNX2iHfKnDG y7J2MqAjj1LSAkuEsqVB7r eTNsDSeiIz7gbThtgSgqNU4pUNT kctcea408ChVhd3yqODVpzPZcVC bxSXY6X09av4M0SXMtNCHm YAL5aHL4qX2nmGmdmhdimNKprJh brjMplQznQLjdKRkgC890HCWamD hrNpPOUoj0L7DfBel0VGPa rHxcAJ2bvALePWbmUm6nzGsmpKy hKS1wUQZuhvrgu600CqTxt7vhMA KsyTPfYKzhETE8A59jm1P6 YQQgSUIgOFL2tIT4jG5alPqvwwz gbGVmdDsgdmVydGljYWwtYWxpZ2 91JYNphWdzXe9DUgl5G4Up Fiw8UZBmmPqsWZ8vgZZxJXexUu8 itScblTfrOV1yOHTogzfdp442Xc Mss7xbNQQwjODpYGpoVLM4 V65do2X9QXPqPOUxEAY0gHU1vB9 hbGlnbjogbGVmdDsgdmVydGljYW oyUZuvX785BUZmmNgxVqHb eWVyOjwvdGQ+RF29cy15Q2HzAqb bBoa8DBNkGNS8fJU2fE2aDTQlLE kyg0R0lLV8V2WiqtUscq6f v5pkPZXvTOfxQ (more content not included)... Normal [facility] Calprotectin, Fecalon 2023 Calprotectin (Stl) [Mass/Mass] 29 mcg/gm Invalid Interpretation Code 0-120 [facility] Comment on above: Result Comment: Conc entration Interpretation Follow-Up < 5 - 50 ug/g Normal None >50 -120 ug/g Borderline Re-evaluate in 4-6 weeks >120 ug/g Abnormal Repeat as clinically indicated Performed at: [address] [id number] MD Parmjit Connor Performed By: #### 1 [id number] ####[facility] [id number] [place] [address] O & P EXAM, ROUTINE, REFLEXo n 04-17-2024 Ova and parasites identified Concentration Nom (Stl) Comment Invalid Interpretation Code [facility] Comment on above: Result Comment: No o va, cysts, or parasites seen. One negative specimen does not rule out the possibility of a parasitic infection. Performed at: [address] [id number] PhD Pancho Higgins Performed By: #### 3 [id number] #### [facility] [address] [id number] O & P Exam, Routineon 2023 Ova and parasites identified LM Nom (Unsp spec) Final report Invalid Interpretation Code [facility] Comment on above: Result Comment: Thes e results were obtained using wet preparation(s) and trichrome stained smear. This test does not include testing for Cryptosporidium parvum, Cyclospora, or Microsporidia. Performed at: [address] [id number] PhD Pancho Higgins Performed By: #### 1 [id number] #### [facility] [address] [place] [address] Pancreatic Elastase, Fecalon 04-17-2024 Elastase.pancreatic (Stl) [Mass/Mass] >800 Invalid Interpretation Code >200 [facility] Comment on above: Result Comment: Florecita re Pancreatic Insufficiency: <100 Moderate Pancreatic Insufficiency: 100 - 200 Normal: >200 Performed at: [facility] [address] [place], [place] [id number] MD Parmjit Connor Performed By: #### 1 [id number] #### [facility] [address] [place] [address] Enteric Panel by PCRon 04-12 C. coli+jejuni+upsalien sis DNA MARYELLEN+non-probe Ql (Stl) Not detected Normal [facility] Comment on above: Result Comment: Test ing was performed utilizing reverse coagulating bath mixer (RT), polymerase chain reaction (PCR), and array [...] nulcleic acid test. Performed By: #### 1 [id number] #### [facility] [address] [place] [address] E. coli stx1+stx2 genes MARYELLEN+non-probe Ql (Stl) Negative Normal [facility] Comment on above: Performed By: #### 1 [id number] #### [facility] [address] [place] [address] Enteric Panel by PCR Negative Normal [facility] Enteric Panel Intrl QC Pass Normal [facility] Comment on above: Result Comment: Test ing was performed utilizing reverse coagulating bath mixer (RT), polymerase chain reaction (PCR), and array [...] 1 and 2. Performed By: #### 1 [id number] #### [facility] [address] [place] [address] Norovirus genogroup I+II RNA MARYELLEN+non-probe Ql (Stl) Not detected Normal [facility] Comment on above: Performed By: #### 1 [id number] #### [facility] [address] [place] [address] Rotavirus A RNA MARYELLEN+non-probe Ql (Stl) Not detected Normal [facility] Comment on above: Performed By: #### 1 [id number] #### [facility] [address] [place] [address] S. enterica+bongori DNA MARYELLEN+non-probe Ql (Stl) Not detected Normal [facility] Comment on above: Result Comment: This test result should be correlated with clinical presentations and medical history by a healthcare provider to determine its clinical significance. Performed By: #### 1 [id number] #### [facility] [address] [place] [address] Shigella species+EIEC invasion plasmid antigen H ipaH gene MARYELLEN+non-probe Ql (Stl) Not detected Normal [facility] Comment on above: Performed By: #### 1 [id number] #### [facility] [address] [place] [address] V. cholerae+parahaemoly ticus+vulnificus DNA MARYELLEN+non-probe Ql (Stl) Not detected Normal [facility] Comment on above: Performed By: #### 1 [id number] #### [facility] [address] [place] [address] Y. enterocolitica DNA MARYELLEN+non-probe Ql (Stl) Not detected Normal [facility] Comment on above: Performed By: #### 1 [id number] #### [facility] [address] [place] [address] CDiff PCRon 04-11-2024 C. difficile toxin A+B Ql (Stl) YES Normal [facility] Comment on above: Performed By: #### 3 [id number] #### [facility] [address] [place] [address] CDiff PCR Unable to perform te st due to consistency of stool. C. Difficile testing will only be performed on diarrheal (unformed) stool unless ileus due to C. difficile is expected. Reference: Clinical Practice Guidelines for Clostridium difficile Infection in Adults, Infection and Hospital Epidemiology February 2010, Vol 31, No 5. Normal [facility] Celiac Disease Comprehensive on 04-11-2024 Endomysium IgA Ql (S) Negative Invalid Interpretation Code Negative [facility] Comment on above: Performed By: #### 1 [id number] #### [facility] [address] [place] [address] Gliadin peptide IgA Qn (S) 7 unit(s) Invalid Interpretation Code 0-19 [facility] Comment on above: Result Comment: Nega tive 0 - 19 Weak Positive 20 - 30 Moderate to Strong Positive >30 Performed By: #### 1 [id number] #### [facility] [address] [place] [address] Gliadin peptide IgG Qn (S) 2 unit(s) Invalid Interpretation Code 0-19 [facility] Comment on above: Result Comment: Nega tive 0 - 19 Weak Positive 20 - 30 Moderate to Strong Positive >30 Performed By: #### 1 [id number] #### [facility] [address] [place] [address] IgA [Mass/Vol] 286 mg/dL Invalid Interpretation Code 87-352 [facility] Comment on above: Result Comment: Perf ormed at: [facility] [address] [id number] PhD Pancho Higgins Performed By: #### 1 [id number] #### [facility] [address] [place] [address] tTG IgA Qn (S) <2 Invalid Interpretation Code 0-3 [facility] Comment on above: Result Comment: Nega tive 0 - 3 Weak Positive 4 - 10 Positive >10 Tissue Transglutaminase (tTG) has been identified as the endomysial antigen. Studies have demonstr- ated that endomysial IgA antibodies have over 99% specificity for gluten sensitive enteropathy. Performed By: #### 1 [id number] #### [facility] [address] [place] [address] tTG IgG Qn (S) <2 Invalid Interpretation Code 0-5 [facility] Comment on above: Result Comment: Nega tive 0 - 5 Weak Positive 6 - 9 Positive >9 Performed By: #### 1 [id number] #### [facility] [address] [place] [address] CHEMISTRYOrdered By: SYSTEM SYSTEM on 04-09-2024 CRP [Mass/Vol] 1.3 mg/dL Normal <=1.9mg/dL Remisol Ch em TSH Qn 3.27 m[IU]/L Normal 0.34 - 5.60 mcIU/mL Remisol Chem CRPon 04-09-2024 CRP [Mass/Vol] 1.3 mg/dL Normal <=1.9 [facility] Comment on above: Performed By: #### [id number] #### [facility] [address] [place] [address] CT ANKLE RT WO CONon 023 CT [...] technique. FINDINGS: BONES: Joint space narrowing with [id number] articulation involving the medial aspect of the talocalcaneal joint. SOFT TISSUES: Negative. No visible soft tissue swelling. EFFUSION: None visible. OTHER: Negative. IMPRESSION: 1. Pes planus. 2. [id number] articulation between the articular surfaces of the medial talocalcaneal joint. 3. Uniform, normal spacing of the tibiotalar joint. Electronically authenticated by: RAFAEL COATS Date: 2023-02-02 09:25 Normal [facility] CHEMISTRYOrdered By: SYSTEM SYSTEM on 01-17-2023 [...] Bilirubin Ql (U) Negative Normal NEGATIVE [facility] Comment on above: Performed By: #### E RUR #### [facility] [address] [place] [address] Dr. Phong Thayer Clarity (U) CLEAR Normal CLEAR [facility] Comment on above: Performed By: #### E RUR #### [facility] [address] [place] [address] Dr. Phong Thayer Color (U) LT. YELLOW Normal YELLOW [facility] Comment on above: Performed By: #### E RUR #### [facility] [address] [place] [address] Dr. Phong MONTILLA A micrscopic examina tion will be performed if indicated. Normal [facility] Comment on above: Performed By: #### E RUR #### [facility] [address] [place] [address] Dr. Phong Thayer Glucose Ql (U) Negative Normal NEGATIVE [facility] Comment on above: Performed By: #### E RUR #### [facility] [address] [place] [address] Dr. Phong Thayer Hemoglobin Ql (U) Negative Normal NEGATIVE [facility] Comment on above: Performed By: #### E RUR #### [facility] [address] [place] [address] Dr. Phong Thayer Ketones Ql (U) Negative Normal NEGATIVE [facility] Comment on above: Performed By: #### E RUR #### [facility] [address] [place] [address] Dr. Phong Thayer LEUKOCYTES Negative Normal NEGATIVE [facility] Comment on above: Performed By: #### E RUR #### [facility] [address] [place] [address] Dr. Phong Thayer Nitrite Ql (U) Negative Normal NEGATIVE [facility] Comment on above: Performed By: #### E RUR #### [facility] [address] [place] [address] Dr. Phong Thayer pH (U) 6.5 [pH] Normal 5-9 [facility] Comment on above: Performed By: #### E RUR #### [facility] [address] [address] [address] Phong Thayer SPEC GRAVITY 1.015 Normal 1.005-<=1. 025 [facility] Comment on above: Performed By: #### E RUR #### [facility] [address] [address] [address] Phong Thayer UA PROTEIN Negative Normal NEGATIVE/ TRACE [facility] Comment on above: Performed By: #### E RUR #### [facility] [address] [address] [address] Phong Thayer UR MICRO IND NOT INDICATED Normal [facility] Comment on above: Performed By: #### E RUR #### [facility] [address] [place] [address] Dr. Phong Thayer Urobilinogen Qn (U) 0.2 {Gilma'U}/dL Normal 0.2 - 1. 0 [facility] Comment on above: Performed By: #### E RUR #### [facility] [address] [place] [address] Dr. Phong Thayer XR LSPINE 2_3 VIEWSon [...] Normal [facility] T3, TOTAL (TRIIODOTHYRONINE) on 09-16-2022 T3, TOTAL 132 ng/dL Normal 71-180 [facility] Comment on above: Performed By: #### T 3TOTAL ####[facility] [id number] [address]Dr. Phong Thayer CBC AUTO DIFFon 09-15-2022 BASO # 0.0 103/ul Normal 0.0-0.1 [facility] Comment on above: Performed By: #### C BC #### [facility] [address] [place] [address] Dr. Phong Thayer Basophils/100 WBC (Bld) 0.3 % Normal 0.2-2.0 [facility] Comment on above: Performed By: #### C BC #### [facility] [address] [place] [address] Dr. Phong Thayer EO # 0.1 103/ul Normal 0.0-0.7 [facility] Comment on above: Performed By: #### C BC #### [facility] [address] [place] [address] Dr. Phong Thayer Eosinophils/100 WBC (Bld) 0.8 % Critically low 0.9-7.0 [facility] Comment on above: Performed By: #### C BC #### [facility] [address] [place] [address] Dr. Phong Thayer Erythrocyte distribution width (RBC) [Ratio] 12.5 % Normal 11.0-15.0 [facility] Comment on above: Performed By: #### C BC #### [facility] [address] [place] [address] Dr. Phong Thayer Hematocrit (Bld) [Volume fraction] 42.2 % Normal 36.0-48.0 [facility] Comment on above: Performed By: #### C BC #### [facility] [address] [place] [address] Dr. Phong Thayer Hemoglobin (Bld) [Mass/Vol] 14.3 g/dL Normal 12.0-16.0 [facility] Comment on above: Performed By: #### C BC #### [facility] [address] [place] [address] Dr. Phong Thayer IG # 0.01 10e3/ul Normal 0.00-0.03 [facility] Comment on above: Performed By: #### C BC #### [facility] [address] [place] [address] Dr. Phong Thayer IG % 0.1 % Normal 0.0-0.5 [facility] Comment on above: Performed By: #### C BC #### [facility] [address] [place] [address] Dr. Phong Thayer LYMPH # 2.5 103/ul Normal 1.2-3.8 [facility] Comment on above: Performed By: #### C BC #### [facility] [address] [place] [address] Dr. Phong Thayer Lymphocytes/100 WBC (Bld) 33.7 % Normal 20.5-60.0 [facility] Comment on above: Performed By: #### C BC #### [facility] [address] [place] [address] Dr. Phong Thayer MANUAL DIFF REQ NO Normal [facility] Comment on above: Performed By: #### C BC #### [facility] [address] [place] [address] Dr. Phong Thayer MCH (RBC) [Entitic mass] 29.1 pg Normal 26.7-34.0 [facility] Comment on above: Performed By: #### C BC #### [facility] [address] [place] [address] Dr. Phong Thayer MCHC (RBC) [Mass/Vol] 33.9 g/dL Normal 29.9-35.2 [facility] Comment on above: Performed By: #### C BC #### [facility] [address] [place] [address] Dr. Phong Thayer MCV (RBC) [Entitic vol] 85.9 fL Normal 81.0-99.0 [facility] Comment on above: Performed By: #### C BC #### [facility] [address] [place] [address] Dr. Phong Thayer MONO # 0.4 103/ul Normal 0.3-0.8 [facility] Comment on above: Performed By: #### C BC #### [facility] [address] [place] [address] Dr. Phong Thayer Monocytes/100 WBC (Bld) 5.3 % Normal 1.7-12.0 [facility] Comment on above: Performed By: #### C BC #### [facility] [address] [place] [address] Dr. Phong Thayer NEUT # 4.5 103/ul Normal 1.4-6.5 [facility] Comment on above: Performed By: #### C BC #### [facility] [address] [place] [address] Dr. Phong Thayer Neutrophils/100 WBC (Bld) 59.8 % Normal 43.0-75.0 [facility] Comment on above: Performed By: #### C BC #### [facility] [address] [place] [address] Dr. Phong Thayer Platelet mean volume (Bld) [Entitic vol] 10.2 fL Normal 9.5-13.5 [facility] Comment on above: Performed By: #### C BC #### [facility] [address] [place] [address] Dr. Phong Thayer PLT 227 103/ul Normal 150-450 [facility] Comment on above: Performed By: #### C BC #### [facility] [address] [place] [address] Dr. Phong Thayer RBC 4.91 106/ul Normal 4.20-5.40 [facility] Comment on above: Performed By: #### C BC #### [facility] [address] [place] [address] Dr. Phong Thayer WBC 7.5 103/ul Normal 4.0-11.0 [facility] Comment on above: Performed By: #### C BC #### [facility] [address] [place] [address] Dr. Phong Thayer FREE THYROXINE INDEX T7on FTI 2.37 Normal 1.30-4.50 [facility] Comment on above: Performed By: #### T SH, T4, T7, CMP #### [facility] [address] [place] [address] Dr. Phong Thayer T3U 32.0 % Normal 30.0-39.0 [facility] Comment on above: Performed By: #### T SH, T4, T7, CMP #### [facility] [address] [place], [place] [address] Dr. Phong Thayer LIPID PROFILEon 09-15-2022 CHOL-HDL RATIO NORM SEE BELOW Normal [facility] Comment on above: Result Comment: 3.3 - 4.4 LOW RISK 4.4 - 7.1 AVERAGE RISK 7.1 - 11.0 MODERATE RISK >11.0 HIGH RISK Performed By: #### L IPID ####[facility] [id number] [place], [place] [address]Gd. Phong Thayer Cholesterol [Mass/Vol] 163 mg/dL Normal <=200 [facility] Comment on above: Performed By: #### L IPID ####[facility] [id number] [place], [place] [address]Aw. Phong Thayer Cholesterol in HDL [Mass/Vol] 57 mg/dL Normal 40-60 [facility] Comment on above: Performed By: #### L IPID ####[facility] [id number] [id number]. Phong Thayer Cholesterol in LDL [Mass/Vol] 69.8 mg/dL Normal [facility] Comment on above: Performed By: #### L IPID ####[facility] [id number] [id number]. Phong Thayer Cholesterol.total/Ch olesterol in HDL [Mass ratio] 2.9 {ratio} Normal [facility] Comment on above: Performed By: #### L IPID ####[facility] [id number] [id number]. Phong Thayer HDL NORMAL > or = 60 mg/dl - LO W CARDIOVASCULAR RISK <40 mg/dl - HIGH CARDIOVASCULAR RISK Normal [facility] Comment on above: Performed By: #### L IPID ####[facility] [id number] [id number]. Phong Thayer LDL CALC NORMAL SEE BELOW Normal [facility] Comment on above: Result Comment: <100 mg/dl OPTIMAL 100 - 129 mg/dl NEAR OR ABOVE OPTIMAL 130 - 159 mg/dl BORDERLINE HIGH 160 - 189 mg/dl HIGH >190 mg/dl VERY HIGH Performed By: #### L IPID ####[facility] [id number] [id number]. Phong Thayer Triglyceride [Mass/Vol] 181 mg/dL Critically high <=150 [facility] Comment on above: Performed By: #### L IPID ####[facility] [id number] [id number]. Phong Thayer VLDL CALC 36.2 mg/dL Normal [facility] Comment on above: Performed By: #### L IPID ####[facility] [id number] [id number]. Phong Thayer PROF 14(COMP METB)on 022 Albumin [Mass/Vol] 3.6 g/dL Normal 3.4-5.0 [facility] Comment on above: Performed By: #### T SH, T4, T7, CMP #### [facility] [address] [address] [address] Phong Thayer Albumin/Globulin [Mass ratio] 1.0 {ratio} Normal [facility] Comment on above: Performed By: #### T SH, T4, T7, CMP #### [facility] [address] [address] [address] Phong Thayer ALP [Catalytic activity/Vol] 90 U/L Normal 46-116 [facility] Comment on above: Performed By: #### T SH, T4, T7, CMP #### [facility] [address] [address] [address] Phong Thayer ALT [Catalytic activity/Vol] 27 U/L Normal 14-59 [facility] Comment on above: Performed By: #### T SH, T4, T7, CMP #### [facility] [address] [address] [address] Phong Thayer Anion gap [Moles/Vol] 14.2 mmol/L Normal [facility] Comment on above: Performed By: #### T SH, T4, T7, CMP #### [facility] [address] [address] [address] Phong Thayer AST [Catalytic activity/Vol] 13 U/L Critically low 15-37 [facility] Comment on above: Performed By: #### T SH, T4, T7, CMP #### [facility] [address] [address] [address] Phong Thayer Bilirubin [Mass/Vol] 0.2 mg/dL Normal 0.2-1.0 [facility] Comment on above: Performed By: #### T SH, T4, T7, CMP #### [facility] [address] [address] [address] Phong Thayer Calcium [Mass/Vol] 9.0 mg/dL Normal 8.5-10.1 [facility] Comment on above: Performed By: #### T SH, T4, T7, CMP #### [facility] [address] [place] [address] Dr. Phong Thayer Chloride [Moles/Vol] 103 mmol/L Normal 98-107 [facility] Comment on above: Performed By: #### T SH, T4, T7, CMP #### [facility] [address] [place] [address] Dr. Phong Thayer CO2 [Moles/Vol] 23.9 mmol/L Normal 21.0-32.0 [facility] Comment on above: Performed By: #### T SH, T4, T7, CMP #### [facility] [address] [place] [address] Dr. Phong Thayer Creatinine [Mass/Vol] 0.76 mg/dL Normal 0.55-1.02 [facility] Comment on above: Performed By: #### T SH, T4, T7, CMP #### [facility] [address] [place] [address] Dr. Phong Thayer EGFR-AF GREEK >60 Normal >=60 [facility] Comment on above: Performed By: #### T SH, T4, T7, CMP #### [facility] [address] [place] [address] Dr. Phong Thayer EGFR-NON AF GREEK >60 Normal >=60 [facility] Comment on above: Performed By: #### T SH, T4, T7, CMP #### [facility] [address] [address] [address] Phong Thayer Globulin (S) [Mass/Vol] 3.6 g/dL Normal [facility] Comment on above: Performed By: #### T SH, T4, T7, CMP #### [facility] [address] [address] [address] Phong Thayer Glucose [Mass/Vol] 95 mg/dL Normal 74-106 [facility] Comment on above: Performed By: #### T SH, T4, T7, CMP #### [facility] [address] [place] [address] Dr. Phong Thayer Potassium [Moles/Vol] 4.1 mmol/L Normal 3.5-5.1 [facility] Comment on above: Performed By: #### T SH, T4, T7, CMP #### [facility] [address] [place] [address] Dr. Phong Thayer Protein [Mass/Vol] 7.2 g/dL Normal 6.4-8.2 [facility] Comment on above: Performed By: #### T SH, T4, T7, CMP #### [facility] [address] [place] [address] Dr. Phong Thayer Sodium [Moles/Vol] 137 mmol/L Normal 136-145 [facility] Comment on above: Performed By: #### T SH, T4, T7, CMP #### [facility] [address] [place] [address] Dr. Phong Thayer Urea nitrogen [Mass/Vol] 13.0 mg/dL Normal 7.0-18.0 [facility] Comment on above: Performed By: #### T SH, T4, T7, CMP #### [facility] [address] [place] [address] Dr. Phong Thayer Urea nitrogen/Creatinine [Mass ratio] 17.1 mg/mg Normal [facility] Comment on above: Performed By: #### T SH, T4, T7, CMP #### [facility] [address] [place] [address] Dr. Phong Thayer T4on 09-15-2022 T4 [Mass/Vol] 7.40 ug/dL Normal 4.80-13.90 [facility] Comment on above: Performed By: #### T SH, T4, T7, CMP #### [facility] [address] [address] [address] Phong Thayer TSHon 09-15-2022 TSH 2.515 uIU/mL Normal 0.358-3.74 0 [facility] Comment on above: Performed By: #### T SH, T4, T7, CMP #### [facility] [address] [address] [address] Phong Thayer VITAMIN B12on 09-15-2022 Cobalamin (Vitamin B12) [Mass/Vol] 423.0 pg/mL Normal 193.0-986. 0 [facility] Comment on above: Performed By: #### V ITAD, VITB12 ####[facility] [id number] [address]DrAnnalee Thayer VITAMIN D 25 OHon 09-15-2022 VIT D 25-OH 28.3 ng/mL Normal [facility] Comment on above: Performed By: #### V ITAD, VITB12 ####[facility] [id number] [address]DrAnnalee Thayer VIT D RANGES SEE BELOW Normal [facility] Comment on above: Result Comment: <20 ng/mL Vit D deficient 20 - <30 ng/mL Vit D insufficient 30 - 100 ng/mL Vit D sufficient >100 ng/mL Potential Toxicity Performed By: #### V ITAD, VITB12 ####[facility] [id number] [id number] Thayer A1C HEMOGLOBINon 09-02-2022 HbA1c (Bld) [Mass fraction] 5.1 % [employer] Other HbA1c (Bld) [Mass fraction]o n 09-02-2022 A1C HEMOGLOBIN [facility] Medium Other XR FOOT AIDA MIN 3 VIEWSon [...] by: RAFAEL COATS Date: 2022-07-07 13:58 Normal [facility] Urine culture routineOrdered By: AME ZARAGOZA on 05-27-2022 Bacteria identified Cx Nom (U) Staphylococcus saprophyticus [facility] Urinalysis - AUTOMATEDon Appearance (U) clear [email or web address] Other Bilirubin Ql (U) Negative [employer] Other Color (U) lt. yellow [employer] Other Glucose Ql (U) Negative [email or web address] Other Hemoglobin Ql (U) moderate [employer] Other Ketones Ql (U) Negative [email or web address] Other Leukocyte esterase Test strip Ql (U) small [employer] Other Nitrite Ql (U) Negative [email or web address] Other pH (U) 6.0 [pH] [employer] Other Protein Ql (U) Negative [email or web address] Other Specific gravity (U) [Rel density] 1.010 [employer] Other Urobilinogen (U) [Mass/Vol] 0.2 mg/dL [employer] Other Urinalysis - AUTOMATED [employer] Other Urine Cultureon 05-24-2022 Bacteria identified Cx Nom (U) [employer] Other XR hand LT min 3V*on 021 XR hand LT min 3V* [facility] [employer] Other XR hand LT min 3V* [facility] [employer] Other XR hand LT min 3V* [address] [place] [address] [employer] Other XR hand LT min 3V* [place] [address] [employer] Other XR hand LT min 3V* XRay Report [employer] Other XR hand LT min 3V* Signed [employer] Other XR hand LT min 3V* Patient: Kelly Castillo MR#: [id number] [employer] Other XR hand LT min 3V* 7804 [employer] Other XR hand LT min 3V* : 1985 Acct:[id number] [employer] Other XR hand LT min 3V* Age/Sex: 36 / F ADM Date: 10/02/21 [employer] Other XR hand LT min 3V* Loc: XDUCLY Room: Ty pe: REG CLI [employer] Other XR hand LT min 3V* Attending Dr: Sera Lares [employer]PERVISOR PIPEL[employer]C [employer] Other XR hand LT min 3V* Ordering Provider: PRASHANTH Wilson [employer] Other XR hand LT min 3V* Date of Service: 10/02/21 [employer] Other XR hand LT min 3V* [id number]) XR/XR hand LT min 3V*: Finger pain, left [employer] Other XR hand LT min 3V* Copies to: PRASHANTH Jordan [employer] Other XR hand LT min 3V* 3 viewsLEFT hand plain film [employer] Other XR hand LT min 3V* COMPARISON:None N [employer] Other XR hand LT min 3V* HISTORY:LEFT hand injury [employer] Other XR hand LT min 3V* No fracture, disloca tion or focal soft tissue abnormality seen. [employer] Other XR hand LT min 3V* X R/XR hand LT min 3V* [employer] Other XR hand LT min 3V* IMPRESSION:No acute findings [employer] Other XR hand LT min 3V* Impression dictated by: Fuad Swain M.D.10/02/2021 6:01 PM [employer] Other XR hand LT min 3V* Dictation Location: [place] [address] [employer] Other XR hand LT min 3V* Transcribed By: NUZHAT 10/02/21 1801 [employer] Other XR hand LT min 3V* Dictated By: Suhas Swain DO 10/02/21 1759 [employer] Other XR hand LT min 3V* Signed By: [employer] Other XR hand LT min 3V* 10/02/21 1801 [facility] [employer] Other Automated basophil %on 11-25 Basophils/100 WBC (Bld) 1.0 % [facility] Automated basophil counton 0 11-25-2020 Basophils (Bld) [#/Vol] 0.1 10*3/uL 0.0-0.2 [facility] Automated blood lymphocyte c ount (number/volume)on 11-25-2020 Lymphocytes (Bld) [#/Vol] 2.2 10*3/uL 1.00-4.8 [facility] Automated blood lymphocyte c ount as percentage of total leukocyteson 11-25-2020 Lymphocytes/100 WBC (Bld) 29.2 % [facility] Automated blood monocyte cou nton 11-25-2020 Monocytes (Bld) [#/Vol] 0.4 10*3/uL 0.0-0.8 [facility] Automated blood platelet cou nt (count/volume)on 11-25-2020 Platelets (Bld) [#/Vol] 247 10*3/uL 150-450 [facility] Automated blood platelet ton n volume measurementon 11-25-2020 Platelet mean volume (Bld) [Entitic vol] 8.8 fL 6.3-10.7 [facility] Automated eosinophil %on Eosinophils/100 WBC (Bld) 1.1 % [facility] Automated eosinophil counton 11-25-2020 Eosinophils (Bld) [#/Vol] 0.1 10*3/uL 0.0-0.45 [facility] Automated erythrocyte distri bution width ratioon 11-25-2020 Erythrocyte distribution width (RBC) [Ratio] 13.3 % 11.9-15.3 [facility] Automated erythrocyte mean c orpuscular hemoglobin (mass per erythrocyte)on 11-25-2020 MCH (RBC) [Entitic mass] 29.2 pg 24.7-34.3 [facility] Automated erythrocyte mean c orpuscular hemoglobin concentration measurement (mass/volon 11-25-2020 MCHC (RBC) [Mass/Vol] 33.6 g/dL 32.0-35.0 [facility] Automated erythrocyte mean c orpuscular volumeon 11-25-2020 MCV (RBC) [Entitic vol] 87.0 fL 80-100 [facility] Automated monocyte %on 11-25 Monocytes/100 WBC (Bld) 5.4 % [facility] Automated neutrophil %on Neutrophils/100 WBC (Bld) 63.3 % [facility] Blood erythrocytes automated count (number/volume)on 11-25-2020 RBC (Bld) [#/Vol] 4.64 10*6/uL 3.60-5.00 [facility] Blood hemoglobin measurement (mass/volume)on 11-25-2020 Hemoglobin (Bld) [Mass/Vol] 13.6 g/dL 11.8-15.4 [facility] Blood leukocytes automated c ount (number/volume)on 11-25-2020 WBC (Bld) [#/Vol] 7.7 10*3/uL 3.8-11.6 [facility] Blood neutrophil count by au tomated method (number/volume)on 11-25-2020 Neutrophils (Bld) [#/Vol] 4.9 10*3/uL 1.8-7.7 [facility] COVID-19 Positive/Negativeon 11-25-2020 COVID-19 Positive/Negative Negative Negative [facility] Comment on above: Testing for SARS-CoV -2 by RT-PCRThis test was developed and its performance characteristics determined by [employer] ([place]) and validated at the [facility]. This test has not been FDA cleared [...] among non-blacks MDRD (S/P/Bld) [Vol rate/Area] mL/min/{1.73_m2} [facility] Hematocrit [Volume Fraction] of Blood by Automated counton 11-25-2020 Hematocrit (Bld) [Volume fraction] 40.4 % 34.0-46.4 [facility] Otheron 11-25-2020 Coronavirus 2019 PCR Interp N/A [facility] GFR/1.73 sq M.predicted MDRD (S/P/Bld) [Vol rate/Area] mL/min/{1.73_m2} [facility] Comment on above: GFR estimated refere nce range: According to KDOQI guidelines, <60 ml/min/1.73m2 is sufficient to diagnose a patient with chronic kidney disease. Nucleated RBC/100 WBC (Bld) [Ratio] 0.0 % 0-0.5 [facility] Creatinine Clearance (Chem N/A [facility] Serum or plasma calcium eleni urement (mass/volume)on 11-25-2020 Calcium [Mass/Vol] 9.3 mg/dL 8.2-10.2 [facility] Serum or plasma chloride ton surement (moles/volume)on 11-25-2020 Chloride [Moles/Vol] 104 mmol/L 95-114 [facility] Serum or plasma creatinine m easurement with calculation of estimated glomerular filtron 11-25-2020 Creatinine [Mass/Vol] 0.76 mg/dL 0.44-1.03 [facility] Serum or plasma glucose eleni urement (mass/volume)on 11-25-2020 Glucose [Mass/Vol] 96 mg/dL 70-100 [facility] Comment on above: ADA recommended refe rence rangeRandom Glucose Reference Range is dependent on time and content of last meal. Glucose of more than 200 mg/dL in a nonstressed, ambulatory subject supports the diagnosis of Diabetes Mellitus. Serum or plasma potassium me asurement (moles/volume)on 11-25-2020 Potassium [Moles/Vol] 4.1 mmol/L 3.5-5.1 [facility] Serum or plasma sodium measu rement (moles/volume)on 11-25-2020 Sodium [Moles/Vol] 138 mmol/L 136-146 [facility] Serum or plasma total carbon dioxide measurement (moles/volume)on 11-25-2020 CO2 [Moles/Vol] 24.6 mmol/L 22.0-30.[address] [facility] Serum or plasma urea nitroge n measurement (mass/volume)on 11-25-2020 Urea nitrogen [Mass/Vol] 6 mg/dL 07-23 [facility] COVID-19 SOFIAon 10-27-2020 COVID-19 MINERVA Negative Negative [facility] Comment on above: This is a duplicate test result based off of the Minerva SARS Antigen (LIZ) test performed within the Microbiology department. Otheron 10-27-2020 SARS Antigen (LFIA) [facility] Albumin [Mass/volume] in Ser um or Plasmaon 09-12-2020 Albumin [Mass/Vol] 3.9 g/dL 3.2-5.5 [facility] Cholesterol [Mass/volume] in Serum or Plasmaon 09-12-2020 Cholesterol [Mass/Vol] 175 mg/dL 140-200 [facility] Comment on above: Chol less than 200 m g/dl low riskChol 201-239 mg/dl borderline riskChol 240 mg/dl and greater high risk Cholesterol in LDL [Mass/vol ume] in Serum or Plasma by calculationon 09-12-2020 Cholesterol in LDL [Mass/Vol] 74 mg/dL 0-100 [facility] Comment on above: LDL ATP III CLASSIFI CATIONLDL less than 100 mg/dL OptimalLDL 100-129 mg/dL Near or above optimalLDL 130-159 mg/dL Borderline highLDL 160-189 mg/dL HighLDL greater than 189 mg/dL Very high Cholesterol in VLDL [Mass/vo lume] in Serum or Plasma by calculationon 09-12-2020 Cholesterol in VLDL [Mass/Vol] 44 mg/dL [facility] Estimated glomerular filtrat ion rate (GFR) non- Americanon 09-12-2020 GFR/1.73 sq M predicted among non-blacks MDRD (S/P/Bld) [Vol rate/Area] mL/min/{1.73_m2} [facility] Metabolic Panelon 09-12-2020 Glucose [Mass/Vol] 81 mg/dL 70-100 [facility] Otheron 09-12-2020 GFR/1.73 sq M.predicted MDRD (S/P/Bld) [Vol rate/Area] mL/min/{1.73_m2} [facility] Comment on above: GFR estimated refere nce range: According to KDOQI guidelines, <60 ml/min/1.73m2 is sufficient to diagnose a patient with chronic kidney disease. Pharmacy Creatinine Clearance (Chem N/A [facility] Protein [Mass/volume] in Ser um or Plasmaon 09-12-2020 Protein [Mass/Vol] 6.5 g/dL 6.1-7.9 [facility] Serum globulin measurement b y calculation (mass/volume)on 09-12-2020 Globulin (S) [Mass/Vol] 2.6 g/dL [facility] Serum or plasma alanine rizvi otransferase measurement without P-5'-P (enzymatic activion 09-12-2020 ALT No additional P-5'-P [Catalytic activity/Vol] 22 U/L 1060 [facility] Serum or plasma albumin/glob ulin mass ratioon 09-12-2020 Albumin/Globulin [Mass ratio] 1.5 {ratio} [facility] Serum or plasma alkaline katherine sphatase measurement (enzymatic activity/volume)on 09-12-2020 ALP [Catalytic activity/Vol] 76 U/L 32-92 [facility] Serum or plasma aspartate am inotransferase measurement (enzymatic activity/volume)on 09-12-2020 AST [Catalytic activity/Vol] 18 U/L 10-42 [facility] Serum or plasma calcium eleni urement (mass/volume)on 09-12-2020 Calcium [Mass/Vol] 9.3 mg/dL 8.2-10.2 [facility] Serum or plasma chloride ton surement (moles/volume)on 09-12-2020 Chloride [Moles/Vol] 101 mmol/L 95-114 [facility] Serum or plasma creatinine m easurement with calculation of estimated glomerular filtron 09-12-2020 Creatinine [Mass/Vol] 0.67 mg/dL 0.44-1.03 [facility] Serum or plasma high density lipoprotein (HDL) cholesterol measurementon 09-12-2020 Cholesterol in HDL [Mass/Vol] 57 mg/dL 35-85 [facility] Comment on above: HDL CHOL ATP-III CLA SSIFICATION Cardiovascular RiskHDL > or equal to 60 mg/dL LOWHDL < 40 mg/dL HIGH Serum or plasma potassium me asurement (moles/volume)on 09-12-2020 Potassium [Moles/Vol] 3.9 mmol/L 3.5-5.1 [facility] Serum or plasma sodium measu rement (moles/volume)on 09-12-2020 Sodium [Moles/Vol] 136 mmol/L 136-146 [facility] Serum or plasma total biliru bin measurement (mass/volume)on 09-12-2020 Bilirubin [Mass/Vol] 0.5 mg/dL 0.3-1.2 [facility] Serum or plasma total carbon dioxide measurement (moles/volume)on 09-12-2020 CO2 [Moles/Vol] 23.4 mmol/L 22.0-30.[address] [facility] Serum or plasma total choles terol/high density lipoprotein (HDL) cholesterol mass yany 09-12-2020 Cholesterol.total/Ch olesterol in HDL [Mass ratio] 3.1 {ratio} [facility] Serum or plasma urea nitroge n measurement (mass/volume)on 09-12-2020 Urea nitrogen [Mass/Vol] 7 mg/dL 07-23 [facility] Triglyceride [Mass/volume] i n Serum or Plasmaon 09-12-2020 Triglyceride [Mass/Vol] 220 mg/dL 35-149 [facility] Comment on above: TRIG ATP III CLASSIF ICATIONTRIG less than 150 mg/dL NormalTRIG 150-199 mg/dL Borderline highTRIG 200-500 mg/dL High TRIG greater than 500 mg/dL Very highStandard traceable to the Center for Disease Conrtrol and Prevention (CDC) test method. Vital Signs Date Time Vital Sign Value Performing Clinician Facility 03-14-2025 08:43-0400 Blood Pressure Location Lester Dominguezshira [facility] 03-14-2025 08:43-0400 Diastolic blood pressure 64 mm[Hg] Florindaguille Mouchli [facility] 03-14-2025 08:43-0400 Heart rate 81 /min Florindaguille Bertramwaleli [facility] 03-14-2025 08:43-0400 Respiratory rate 14 /min Florindaguille Dominguezli [facility] 03-14-2025 08:43-0400 Systolic blood pressure 117 mm[Hg] Florindaguille Mcelroy [facility] 02-05-2025 08:10-0400 Body height 162.6 cm Kaylynn MOONEY Work Phone: [facility] 02-05-2025 08:10-0400 Body mass index (BMI) [Ratio] 33.81 kg/m2 Kaylynn MOONEY Work Phone: [facility] 02-05-2025 08:10-0400 Body weight 89.36 kg Kaylynn MOONEY Work Phone: [facility] 02-05-2025 08:10-0400 Diastolic blood pressure 78 mm[Hg] Kaylynn Jara PA Work Phone: [facility] 02-05-2025 08:10-0400 Heart rate 81 /min Kaylynn Jara PA Work Phone: [facility] 02-05-2025 08:10-0400 Respiratory rate 16 /min Kaylynn Jara PA Work Phone: [facility] 02-05-2025 08:10-0400 SaO2% (BldA) [Mass fraction] 97 % Kaylynn MOONEY Work Phone: [facility] 02-05-2025 08:10-0400 Systolic blood pressure 118 mm[Hg] Kaylynn MOONEY Work Phone: [facility] 01-30-2025 16:14-0400 Body mass index (BMI) [Ratio] 33.99 kg/m2 Chelsea Minerva-Nossek CASH RECONCILIATION SPECIALIST-MASS COMMUNICATIONS PROFESSOR Work Phone: [facility] 01-30-2025 16:14-0400 Body weight 89.81 kg Chelsea Minerva-Nossek CASH RECONCILIATION SPECIALIST-MASS COMMUNICATIONS PROFESSOR Work Phone: [facility] 01-30-2025 16:14-0400 Diastolic blood pressure 82 mm[Hg] Chelsea Minerva-Nossek CASH RECONCILIATION SPECIALIST-MASS COMMUNICATIONS PROFESSOR Work Phone: [facility] 01-30-2025 16:14-0400 Heart rate 95 /min Chelsea Minerva-Nossek CASH RECONCILIATION SPECIALIST-MASS COMMUNICATIONS PROFESSOR Work Phone: [facility] 01-30-2025 16:14-0400 Systolic blood pressure 118 mm[Hg] Chelsea Minerva-Nossek CASH RECONCILIATION SPECIALIST-MASS COMMUNICATIONS PROFESSOR Work Phone: [facility] 12-26-2024 09:16-0500 Body mass index (BMI) [Ratio] 34.64 kg/m2 Yue Perez PA Work Phone: [facility] 12-26-2024 09:16-0500 Body weight 91.54 kg Yue Perez PA Work Phone: [facility] 12-26-2024 09:16-0500 Diastolic blood pressure 66 mm[Hg] Yue MOONEY Work Phone: [facility] 12-26-2024 09:16-0500 Systolic blood pressure 120 mm[Hg] Yeu MOONEY Work Phone: [facility] 12-18-2024 16:01-0500 Body mass index (BMI) [Ratio] 34.16 kg/m2 Chlesea Minerva-Nossek CASH RECONCILIATION SPECIALIST-MASS COMMUNICATIONS PROFESSOR Work Phone: [facility] 12-18-2024 16:01-0500 Body weight 90.27 kg Chelsea Minerva-Nossek CASH RECONCILIATION SPECIALIST-MASS COMMUNICATIONS PROFESSOR Work Phone: [facility] 12-18-2024 16:01-0500 Diastolic blood pressure 78 mm[Hg] Chelsea Minerva-Nossek CASH RECONCILIATION SPECIALIST-MASS COMMUNICATIONS PROFESSOR Work Phone: [facility] 12-18-2024 16:01-0500 Heart rate 93 /min Chelsea Minerva-Nossek CASH RECONCILIATION SPECIALIST-MASS COMMUNICATIONS PROFESSOR Work Phone: [facility] 12-18-2024 16:01-0500 Systolic blood pressure 128 mm[Hg] Chelsea Minerva-Nossek CASH RECONCILIATION SPECIALIST-MASS COMMUNICATIONS PROFESSOR Work Phone: [facility] 11-22-2024 16:39-0500 Body mass index (BMI) [Ratio] 33.99 kg/m2 Chelsea Minerva-Nossek CASH RECONCILIATION SPECIALIST-MASS COMMUNICATIONS PROFESSOR Work Phone: [facility] 11-22-2024 16:39-0500 Body weight 89.81 kg Chelsea Minerva-Nossek CASH RECONCILIATION SPECIALIST-MASS COMMUNICATIONS PROFESSOR Work Phone: [facility] 11-22-2024 16:39-0500 Diastolic blood pressure 80 mm[Hg] Chelsea Minerva-Nossek CASH RECONCILIATION SPECIALIST-MASS COMMUNICATIONS PROFESSOR Work Phone: [facility] 11-22-2024 16:39-0500 Heart rate 78 /min Chelsea Minerva-Nossek CASH RECONCILIATION SPECIALIST-MASS COMMUNICATIONS PROFESSOR Work Phone: [facility] 11-22-2024 16:39-0500 Systolic blood pressure 128 mm[Hg] Chelsea Minerva-Nossek CASH RECONCILIATION SPECIALIST-MASS COMMUNICATIONS PROFESSOR Work Phone: [facility] 11-01-2024 16:30-0500 Body mass index (BMI) [Ratio] 33.99 kg/m2 Christine Helton SUPERVISOR PIPELINE Work Phone: [facility] 11-01-2024 16:30-0500 Body weight 89.81 kg Christine Helton SUPERVISOR PIPELINE Work Phone: [facility] 11-01-2024 16:30-0500 Diastolic blood pressure 73 mm[Hg] Christine Helton SUPERVISOR PIPELINE Work Phone: [facility] 11-01-2024 16:30-0500 Heart rate 90 /min Chirstine Helton SUPERVISOR PIPELINE Work Phone: [facility] 11-01-2024 16:30-0500 Systolic blood pressure 126 mm[Hg] Christine Helton SUPERVISOR PIPELINE Work Phone: [facility] 09-19-2024 16:38-0500 Body height 172.72 cm [facility] 09-19-2024 16:38-0500 Body mass index (BMI) [Ratio] 30.2 kg/m2 [facility] 09-19-2024 16:38-0500 Body temperature 98.1 [degF] [facility] 09-19-2024 16:38-0500 Body weight 90.03 kg [facility] 09-19-2024 16:38-0500 Diastolic blood pressure 76 mm[Hg] [facility] 09-19-2024 16:38-0500 Heart rate 85 /min [facility] 09-19-2024 16:38-0500 SaO2% (BldA) [Mass fraction] 96 % [facility] 09-19-2024 16:38-0500 Systolic blood pressure 118 mm[Hg] [facility] 09-05-2024 16:28-0500 Body mass index (BMI) [Ratio] 34.16 kg/m2 Chelsea Minerva-Nossek CASH RECONCILIATION SPECIALIST-MASS COMMUNICATIONS PROFESSOR Work Phone: [facility] 09-05-2024 16:28-0500 Body weight 90.27 kg Chelsea Minerva-Nossek CASH RECONCILIATION SPECIALIST-MASS COMMUNICATIONS PROFESSOR Work Phone: [facility] 09-05-2024 16:28-0500 Diastolic blood pressure 72 mm[Hg] Chelsea Minerva-Nossek CASH RECONCILIATION SPECIALIST-MASS COMMUNICATIONS PROFESSOR Work Phone: [facility] 09-05-2024 16:28-0500 Heart rate 78 /min Chelsea Minerva-Nossek CASH RECONCILIATION SPECIALIST-MASS COMMUNICATIONS PROFESSOR Work Phone: [facility] 09-05-2024 16:28-0500 Systolic blood pressure 108 mm[Hg] Chelsea Minerva-Nossek CASH RECONCILIATION SPECIALIST-MASS COMMUNICATIONS PROFESSOR Work Phone: [facility] 08-09-2024 08:57-0400 Body mass index (BMI) [Ratio] 34.67 kg/m2 Chelsea Palma-Nossek CASH RECONCILIATION SPECIALIST-MASS COMMUNICATIONS PROFESSOR Work Phone: [facility] 08-09-2024 08:57-0400 Body weight 91.63 kg Chelsea Palma-Idalmissek CASH RECONCILIATION SPECIALIST-MASS COMMUNICATIONS PROFESSOR Work Phone: [facility] 08-09-2024 08:57-0400 Diastolic blood pressure 78 mm[Hg] Chelsea Palma-Idalmissek CASH RECONCILIATION SPECIALIST-MASS COMMUNICATIONS PROFESSOR Work Phone: [facility] 08-09-2024 08:57-0400 Heart rate 82 /min Chelsea Palma-Idalmissek CASH RECONCILIATION SPECIALIST-MASS COMMUNICATIONS PROFESSOR Work Phone: [facility] 08-09-2024 08:57-0400 Systolic blood pressure 100 mm[Hg] Chelsea Palma-Idalmissek CASH RECONCILIATION SPECIALIST-MASS COMMUNICATIONS PROFESSOR Work Phone: [facility] 07-17-2024 08:25-0400 Body height 162.6 cm Ericka Aguilar SUPERVISOR PIPELINE Work Phone: [facility] 07-17-2024 08:25-0400 Body mass index (BMI) [Ratio] 35.39 kg/m2 Ericka Aguilar SUPERVISOR PIPELINE Work Phone: [facility] 07-17-2024 08:25-0400 Body weight 93.53 kg Ericka Aguilar SUPERVISOR PIPELINE Work Phone: [facility] 07-17-2024 08:25-0400 Diastolic blood pressure 76 mm[Hg] Ericka Aguilar SUPERVISOR PIPELINE Work Phone: [facility] 07-17-2024 08:25-0400 Heart rate 85 /min Ericka Aguilar SUPERVISOR PIPELINE Work Phone: [facility] 07-17-2024 08:25-0400 SaO2% (BldA) [Mass fraction] 97 % Ericka Aguilar SUPERVISOR PIPELINE Work Phone: [facility] 07-17-2024 08:25-0400 Systolic blood pressure 128 mm[Hg] Ericka Aguilar NP Work Phone: [facility] 04-09-2024 13:31-0400 Blood Pressure Location Lester Mcelroy [facility] 04-09-2024 13:31-0400 Diastolic blood pressure 84 mm[Hg] Jeannettezaina Bertramuchli [facility] 04-09-2024 13:31-0400 Heart rate 61 /min Jeannettezaina Bertramuchli [facility] 04-09-2024 13:31-0400 Respiratory rate 16 /min Jeannettezaina Bertramwaleli [facility] 04-09-2024 13:31-0400 Systolic blood pressure 122 mm[Hg] Jeannetted Bertramuchli [facility] 02-26-2024 14:18-0400 Body height 172.72 cm [facility] 02-26-2024 14:18-0400 Body mass index (BMI) [Ratio] 33.1 kg/m2 [facility] 02-26-2024 14:18-0400 Body temperature 98.2 [degF] [facility] 02-26-2024 14:18-0400 Body weight 98.99 kg [facility] 02-26-2024 14:18-0400 Diastolic blood pressure 76 mm[Hg] [facility] 02-26-2024 14:18-0400 Heart rate 68 /min [facility] 02-26-2024 14:18-0400 Respiratory rate 18 /min [facility] 02-26-2024 14:18-0400 SaO2% (BldA) [Mass fraction] 98 % ATHLETIC MONITOR-C Ame [facility] 02-26-2024 14:18-0400 Systolic blood pressure 120 mm[Hg] ATHLETIC MONITOR-C Ame [facility] 10-17-2023 16:30-0500 Body height 162.56 cm Ml Chisholm Other [employer] Other 10-17-2023 16:30-0500 Body mass index (BMI) [Ratio] 34.67 kg/m2 Ml Chisholm Other [facility] Other 10-17-2023 16:30-0500 Body weight 91.63 kg Ml Chisholm Other [facility] Other 10-17-2023 16:30-0500 Diastolic blood pressure 71 mm[Hg] Ml Chisholm Other [facility] Other 10-17-2023 16:30-0500 Respiratory rate 18 /min Ml Chisholm Other [facility] Other 10-17-2023 16:30-0500 SaO2% (BldA) [Mass fraction] 96 % Ml Chisholm Other [facility] Other 10-17-2023 16:30-0500 Systolic blood pressure 112 mm[Hg] Ml Chisholm Other [facility] Other 08-10-2023 11:55-0400 Body height 162.56 cm Sera Lares Other [facility] Other 08-10-2023 11:55-0400 Body mass index (BMI) [Ratio] 37.24 kg/m2 Sera Lares Other [facility] Other 08-10-2023 11:55-0400 Body temperature 97.7 [degF] Sera Lares Other [facility] Other 08-10-2023 11:55-0400 Body weight 98.43 kg Sera Lares Other [facility] Other 08-10-2023 11:55-0400 Respiratory rate 18 /min Sera Lares Other [facility] Other 08-10-2023 11:55-0400 SaO2% (BldA) [Mass fraction] 98 % Sera Lares Other [facility] Other 09-08-2022 10:30-0500 Body height 162.56 cm Marleni Missler Other [facility] Other 09-08-2022 10:30-0500 Body mass index (BMI) [Ratio] 34.93 kg/m2 Marleni Missler Other [facility] Other 09-08-2022 10:30-0500 Body weight 92.31 kg Marleni Missler Other [facility] Other 09-08-2022 10:30-0500 Diastolic blood pressure 77 mm[Hg] Marleni Missler Other [facility] Other 09-08-2022 10:30-0500 Respiratory rate 18 /min Marleni Missler Other [facility] Other 09-08-2022 10:30-0500 SaO2% (BldA) [Mass fraction] 96 % Marleni Missler Other [facility] Other 09-08-2022 10:30-0500 Systolic blood pressure 117 mm[Hg] Marleni Jordan Other [facility] Other 09-02-2022 15:00-0400 Body height 162.56 cm Ame Nik Other [facility] Other 09-02-2022 15:00-0400 Body mass index (BMI) [Ratio] 34.5 kg/m2 Ame Patelault Other [facility] Other 09-02-2022 15:00-0400 Body temperature 98.6 [degF] Ame Nik Other [facility] Other 09-02-2022 15:00-0400 Body weight 91.17 kg Ame Patelault Other [facility] Other 09-02-2022 15:00-0400 Diastolic blood pressure 82 mm[Hg] Ame Patelault Other [facility] Other 09-02-2022 15:00-0400 Respiratory rate 18 /min Ame Nik Other [facility] Other 09-02-2022 15:00-0400 SaO2% (BldA) [Mass fraction] 86 % Ame Nik Other [facility] Other 09-02-2022 15:00-0400 Systolic blood pressure 129 mm[Hg] Ame Nik Other [facility] Other 07-10-2022 12:10-0400 Body height 162.56 cm Ame Nik Other [facility] Other 07-10-2022 12:10-0400 Body mass index (BMI) [Ratio] 33.91 kg/m2 Ame Zaragoza Other [facility] Other 07-10-2022 12:10-0400 Body temperature 98.6 [degF] Ame Zaragoza Other [facility] Other 07-10-2022 12:10-0400 Body weight 89.63 kg Ame Zaragoza Other [facility] Other 07-10-2022 12:10-0400 Diastolic blood pressure 81 mm[Hg] Ame Zaragoza Other [facility] Other 07-10-2022 12:10-0400 Respiratory rate 18 /min Ame Zaragoza Other [facility] Other 07-10-2022 12:10-0400 SaO2% (BldA) [Mass fraction] 98 % Ame Zaragoza Other [facility] Other 07-10-2022 12:10-0400 Systolic blood pressure 132 mm[Hg] Ame Zaragoza Other [facility] Other 05-24-2022 17:00-0400 Body height 162.56 cm Ame Zaragoza Other [facility] Other 05-24-2022 17:00-0400 Body mass index (BMI) [Ratio] 34.67 kg/m2 Ame Patelault Other [facility] Other 05-24-2022 17:00-0400 Body temperature 98 [degF] Ame Zaragoza Other [facility] Other 05-24-2022 17:00-0400 Body weight 91.63 kg Ame Zaragoza Other [facility] Other 05-24-2022 17:00-0400 Diastolic blood pressure 70 mm[Hg] Ame Zaragoza Other [facility] Other 05-24-2022 17:00-0400 Respiratory rate 18 /min Ame Zaragoza Other [facility] Other 05-24-2022 17:00-0400 SaO2% (BldA) [Mass fraction] 99 % Ame Zaragoza Other [facility] Other 05-24-2022 17:00-0400 Systolic blood pressure 122 mm[Hg] Ame Zaragoza Other [facility] Other 10-02-2021 18:20-0500 Body height 162.56 cm Sera Luda Other [facility] Other 10-02-2021 18:20-0500 Body mass index (BMI) [Ratio] 35.01 kg/m2 Sera Luda Other [facility] Other 10-02-2021 18:20-0500 Body temperature 98.2 [degF] Sera Luda Other [facility] Other 10-02-2021 18:20-0500 Body weight 92.53 kg Sera Lares Other [facility] Other 10-02-2021 18:20-0500 Diastolic blood pressure 81 mm[Hg] Sera Lares Other [facility] Other 10-02-2021 18:20-0500 Respiratory rate 18 /min Sera Lares Other [facility] Other 10-02-2021 18:20-0500 SaO2% (BldA) [Mass fraction] 99 % Sera Lares Other [facility] Other 10-02-2021 18:20-0500 Systolic blood pressure 118 mm[Hg] Sera Lares Other [facility] Other 08-22-2021 15:15-0400 Body height 162.56 cm Christiana Ginty Other [facility] Other 08-22-2021 15:15-0400 Body mass index (BMI) [Ratio] 34.33 kg/m2 Christiana Ginty Other [facility] Other 08-22-2021 15:15-0400 Body weight 90.72 kg Christiana Ginty Other [employer] Other Encounters Encounter Date Encounter Type Care Provider Facility Start: 04-08-2025 End: 04-08-2025 ambulatory Lester Mcelroy Facility:[facility] Start: 04-08-2025 End: 04-08-2025 Patient encounter procedure Lester Mcelroy [facility] Start: 03-16-2025 End: 03-16-2025 ambulatory Malcolm Torres Facility:[facility] Start: 03-14-2025 End: 03-14-2025 ambulatory Lester Mcelroy Facility:[facility] Start: 03-14-2025 End: 03-14-2025 Patient encounter procedure Lester Mcelroy [facility] Start: 03-08-2025 ambulatory [facility] Start: 02-22-2025 End: 02-22-2025 ambulatory ISAAKRENE BERGER Not Available Start: 02-22-2025 End: 02-22-2025 Bamboo flowsheet Isaak Berger CONTRACT CONSULTANT [facility] Start: 02-22-2025 End: 02-22-2025 Bamboo flowsheet Isaak Berger CONTRACT CONSULTANT [facility] Start: 02-05-2025 End: 02-05-2025 Bamboo flowsheet Kaylynn MOONEY Work Phone: [facility] Start: 02-05-2025 End: 02-05-2025 Bamboo flowsbrian MOONEY Work Phone: [facility] Start: 02-05-2025 End: 02-05-2025 Office outpatient visit 25 minutes Kaylynn MOONEY Work Phone: [facility] Comment on above: Chronic migraine wit hout aura without status migrainosus, not intractable (CMS/HCC) (Primary Dx); Tremor Start: 02-05-2025 End: 02-05-2025 ambulatory KAYLYNN JARA Not Available Start: 02-01-2025 End: 02-01-2025 Bamboo flowsheet Isaak Berger CONTRACT CONSULTANT [facility] Start: 02-01-2025 End: 02-01-2025 Bamboo flowsheet Isaak Berger CONTRACT CONSULTANT [facility] Start: 02-01-2025 End: 02-01-2025 ambulatory ISAAK BERGER Not Available Start: 01-30-2025 End: 01-30-2025 Office outpatient visit 15 minutes Chelsea Virk APRN-MASS COMMUNICATIONS PROFESSOR Work Phone: [facility] Comment on above: Bipolar II disorder, most recent episode major depressive ([facility]) Start: 01-30-2025 End: 01-30-2025 ambulatory CHELSEA PALMA-NOSSEK Not Available Start: 01-30-2025 End: 01-30-2025 Bamboo flowsheet Chelsea GomezNossek CASH RECONCILIATION SPECIALIST-MASS COMMUNICATIONS PROFESSOR Work Phone: [facility] Start: 01-30-2025 End: 01-30-2025 Bamboo flowsheet Chelsea Palma-Nossek CASH RECONCILIATION SPECIALIST-MASS COMMUNICATIONS PROFESSOR Work Phone: [facility] Start: 01-25-2025 End: 01-25-2025 Bamboo flowsheet Isaak Berger CONTRACT CONSULTANT [facility] Start: 01-25-2025 End: 01-25-2025 Bamboo flowsheet Isaak Berger CONTRACT CONSULTANT [facility] Start: 01-25-2025 End: 01-25-2025 ambulatory ISAAK BERGER Not Available Start: 01-11-2025 End: 01-11-2025 ambulatory ISAAK BERGER Not Available Start: 01-04-2025 End: 01-04-2025 ambulatory ISAAK BERGER Not Available Start: 12-28-2024 End: 12-28-2024 Bamboo flowsheet Isaak Berger CONTRACT CONSULTANT [facility] Start: 12-28-2024 End: 12-28-2024 Bamboo flowsheet Isaak Berger CONTRACT CONSULTANT [facility] Start: 12-28-2024 End: 12-28-2024 ambulatory [...] outpatient visit 15 minutes Chelsea M Minerva-Nossek CASH RECONCILIATION SPECIALIST-MASS COMMUNICATIONS PROFESSOR Work Phone: [facility] Comment on above: Bipolar II disorder, most recent episode major depressive (CMS/HCC); Generalized anxiety disorder (CMS/HCC) Start: 11-22-2024 End: 11-22-2024 ambulatory CHELSEA M MINERVA-NOSSEK Not Available Start: 11-22-2024 End: 11-22-2024 Office outpatient visit 25 minutes Chelsea M Minerva-Nossek CASH RECONCILIATION SPECIALIST-MASS COMMUNICATIONS PROFESSOR Work Phone: [facility] Comment on above: Bipolar II disorder, most recent episode major depressive (CMS/HCC); Insomnia, unspecified type; Generalized anxiety disorder (CMS/HCC) Start: 11-06-2024 End: 11-06-2024 Refill Chelsea M Minerva-Nossek CASH RECONCILIATION SPECIALIST-MASS COMMUNICATIONS PROFESSOR Work Phone: [facility] Comment on above: Bipolar II disorder, most recent episode major depressive (CMS/HCC) Start: 11-01-2024 End: 11-01-2024 ambulatory CHRISTINETheo HELTON Not Available Start: 11-01-2024 End: 11-01-2024 Office outpatient visit 25 minutes Christine Helton SUPERVISOR PIPELINE [facility] Comment on above: Chronic migraine wit hout aura without status migrainosus, not intractable (CMS/HCC) (Primary Dx); Tremor Start: 11-01-2024 End: 11-01-2024 Bamboo flowsheet Christine Helton SUPERVISOR PIPELINE [facility] Phone: [facility] Start: 11-01-2024 End: 11-01-2024 Bamboo flowsheet Christine Helton SUPERVISOR PIPELINE Work Phone: [facility] Start: 09-19-2024 End: 09-19-2024 ambulatory [facility] Work Phone: Start: 09-19-2024 End: 09-19-2024 Patient encounter procedure [facility] [place] Work Phone: Start: 09-05-2024 End: 09-05-2024 ambulatory CHELSEA Quintin MINERVA-NOSSEK Not Available Start: 09-05-2024 End: 09-05-2024 Office outpatient visit 15 minutes Chelsea Quintin Minerva-Nossek CASH RECONCILIATION SPECIALIST-MASS COMMUNICATIONS PROFESSOR Work Phone: [facility] Comment on above: Bipolar II disorder, most recent episode major depressive (CMS/HCC); Insomnia, unspecified type Start: 09-05-2024 End: 09-05-2024 Bamboo flowsheet Chelsea Quintin Minerva-Nossek CASH RECONCILIATION SPECIALIST-MASS COMMUNICATIONS PROFESSOR Work Phone: [facility] Start: 09-05-2024 End: 09-05-2024 Bamboo flowsheet Chelsea M Minerva-Nossek CASH RECONCILIATION SPECIALIST-MASS COMMUNICATIONS PROFESSOR Work Phone: [facility] Start: 08-09-2024 End: 08-09-2024 Bamboo flowsheet Chelsea Quintin Minerva-Nossek CASH RECONCILIATION SPECIALIST-MASS COMMUNICATIONS PROFESSOR Work Phone: [facility] Start: 08-09-2024 End: 08-09-2024 Bamboo flowsheet Chelsea Salazarsek CASH RECONCILIATION SPECIALIST-MASS COMMUNICATIONS PROFESSOR Work Phone: [facility] Start: 08-09-2024 End: 08-09-2024 Office outpatient visit 25 minutes Chelsea Palma-Idalmissek CASH RECONCILIATION SPECIALIST-MASS COMMUNICATIONS PROFESSOR Work Phone: [facility] Comment on above: Bipolar II disorder, most recent episode major depressive (CMS/HCC); Generalized anxiety disorder (CMS/HCC) Start: 08-09-2024 End: 08-09-2024 ambulatory CHELSEA PALMA-NOSSEK Not Available Start: 07-17-2024 End: 07-17-2024 Bamboo flowsheet Ericka Aguilar SUPERVISOR PIPELINE Work Phone: [email or web address] Start: 07-17-2024 End: 07-17-2024 Bamboo flowsheet Ericka Aguilar SUPERVISOR PIPELINE Work Phone: [facility] [place] [facility] Start: 07-17-2024 End: 07-17-2024 Telephone encounter Ericka Aguilar SUPERVISOR PIPELINE Work Phone: [facility] [place] [facility] Start: 07-17-2024 End: 07-17-2024 Office outpatient visit 25 minutes Ericka Aguilar SUPERVISOR PIPELINE Work Phone: [facility] [place] [facility] Comment on above: Chronic migraine wit hout aura without status migrainosus, not intractable (CMS/HCC) (Primary Dx); Tremor Start: 07-17-2024 End: 07-17-2024 ambulatory ERICKA AGUILAR Not Available Start: 07-13-2024 End: 07-13-2024 ambulatory ISAAK BERGER Not Available Start: 07-13-2024 End: 07-13-2024 Bamboo flowsheet Isaak Berger CONTRACT CONSULTANT [facility] Start: 07-13-2024 End: 07-13-2024 Bamboo flowsheet Isaak Berger CONTRACT CONSULTANT [facility] Start: 07-04-2024 End: 07-04-2024 Bamboo flowsheet Isaak Berger CONTRACT CONSULTANT [facility] Start: 07-04-2024 End: 07-04-2024 Bamboo flowsheet Isaak Berger CONTRACT CONSULTANT [facility] Start: 07-04-2024 End: 07-04-2024 ambulatory [...] Start: 04-11-2024 End: 04-11-2024 ambulatory Lester Mcelroy Facility:[facility] Start: 04-11-2024 End: 04-11-2024 Lab Drop off Lester Mcelroy [facility] Start: 04-09-2024 End: 04-09-2024 ambulatory Lester Mcelroy Facility:[facility] Start: 04-09-2024 End: 04-09-2024 Patient encounter procedure Lester Mcelroy [facility] Start: 04-09-2024 End: 04-09-2024 Patient encounter procedure Lester Mcelroy [facility] Start: 03-15-2024 End: 03-15-2024 ambulatory LUIS EDUARDO NARANJOO Not Available Start: 02-26-2024 End: 02-26-2024 ambulatory ATHLETIC MONITOR-C Ame Zaragoza [facility] Work Phone: Start: 02-26-2024 End: 02-26-2024 Patient encounter procedure ATHLETIC MONITOR-C Ame Zaragoza [facility] [place] Work Phone: Start: 12-08-2023 End: 12-08-2023 ambulatory ATHLETIC MONITOR-C Ame [facility] Work Phone: Start: 12-08-2023 End: 12-08-2023 Departed Referred ATHLETIC MONITOR-C Ame [facility]-LAB [facility] Start: 10-17-2023 End: 10-17-2023 ambulatory Ml Chisholm Other [employer] Other Start: 10-17-2023 Office outpatient vi sit 15 minutes Ml Chisholm [facility] Start: 10-17-2023 End: 10-17-2023 Patient encounter procedure ATHLETIC MONITOR-C Ame Zaragoza [facility] [place] Work Phone: Start: 08-10-2023 End: 08-10-2023 ambulatory Sera Luda Other [employer] Other Start: 08-10-2023 Office outpatient vi sit 15 minutes Sera Luda [facility] Start: 04-16-2023 End: 04-16-2023 ambulatory Ame Zaragoza Facility:[facility] Start: 02-02-2023 End: 02-03-2023 ambulatory AME ZARAGOZA Facility: Start: 01-26-2023 ambulatory AME NIK Facil ity:[facility]1 Start: 01-17-2023 End: 01-17-2023 Lab Drop off AME ZARAGOZA [facility] Start: 10-31-2022 End: 10-31-2022 ambulatory PHYSICIAN [facility] Work Phone: Start: 10-31-2022 End: 10-31-2022 Patient encounter procedure PHYSICIAN NO [facility]-Self Pay Exercise Program Start: 10-23-2022 End: 10-23-2022 ambulatory FARHEEN CAMACHO . Facility:[facility] Start: 10-13-2022 End: 10-13-2022 Patient encounter procedure PHYSICIAN NO [facility]-MRI Main [place] Work Phone: Start: 10-13-2022 Registered Recurring PHYSICIAN NO [facility]-Weight Management Work Phone: Start: 10-12-2022 End: 10-12-2022 ambulatory PHYSICIAN NO [facility] Work Phone: Start: 10-12-2022 End: 10-12-2022 Patient encounter procedure PHYSICIAN NO [facility]-MRI Main [place] Start: 10-11-2022 Registered Recurring PHYSICIAN NO [facility]-Weight Management Start: 10-11-2022 End: 10-11-2022 ambulatory Marleni Jordan Other [employer] Other Start: 10-11-2022 Telephone encounter [facility] Start: 09-15-2022 End: 09-16-[address] DOCTOR LANDEROS Facility:[facility] Start: 09-08-2022 End: 09-08-2022 ambulatory Marleni Jordan Other [employer] Other Start: 09-08-2022 Nutrition therapy Marleniher Jordan [facility] Start: 09-02-2022 End: 09-02-2022 ambulatory Ame Zaragoza Other [employer] Other Start: 09-02-2022 Office outpatient vi sit 15 minutes Ame Zaragoza [facility] Start: 08-02-2022 End: 08-02-2022 ambulatory Debra Celestin Other [employer] Other Start: 08-02-2022 Telephone encounter Debra Celestin [facility] Start: 07-10-2022 End: 07-10-2022 ambulatory Ame Nik Other [employer] Other Start: 07-10-2022 Office outpatient vi sit 15 minutes Ame Nik [facility] Start: 07-07-2022 End: 07-08-[address] CNOOR BEAL Facility:[facility] Start: 06-26-2022 End: 06-26-2022 ambulatory Ame Nik Other [employer] Other Start: 06-26-2022 Telephone encounter Ame Breaul t [facility] [place] Start: 05-24-2022 End: 05-24-2022 Departed Referred ATHLETIC MONITOR-C Ame Zaragoza Work Phone: [facility]Lab Main [place] Start: 05-24-2022 End: 05-24-2022 ambulatory Ame Nik Other [employer] Other Start: 05-24-2022 Office outpatient vi sit 15 minutes Ame Nik [facility] Start: 05-19-2022 End: 05-19-2022 ambulatory Ame Nik Other [employer] Other Start: 05-19-2022 Telephone encounter Ame Breaul t [facility] Start: 05-11-2022 ambulatory BRITNISHREE GRANT Facilit y:H1 Start: 12-11-2021 End: 12-11-2021 ambulatory Ame Nik Other [employer] Other Start: 12-11-2021 Telephone encounter Ame Breaul t [facility] Start: 10-02-2021 End: 10-02-2021 ambulatory Sera Lares Other [employer] Other Start: 10-02-2021 Office outpatient vi sit 15 minutes Sera Laers [facility] Start: 08-22-2021 End: 08-22-2021 ambulatory Christiana Martel Other [facility] Other Start: 08-22-2021 Office outpatient vi sit 15 minutes Christiana Jazmynegraciey [facility] Start: 11-25-2020 End: 11-25-2020 Patient encounter procedure Kit Reyes ([facility]) -Pre-Surgical Testing Start: 10-27-2020 End: 10-27-2020 Patient encounter procedure Kit Reyes ([facility]) -[place] COVID Testing Start: 09-12-2020 End: 09-12-2020 Departed Referred Kit Reyes ([facility]) -[facility] [address] Procedures Date Procedure Procedure [...] recent episode major depressive (CMS/HCC) Isaak Berger CONTRACT CONSULTANT Comment on above: Bipolar II disorder, most recent episode major depressive (CMS/HCC) Start: 12-26-2024 Radex calcaneus minimum 2 views Geraldine gabriel DPM Work Phone: Start: 12-26-2024 IGP,APTIMA HPV,AGE GDLN Yue Ana PA Work Phone: Start: 07-13-2024 End: 07-13-2024 Family psychotherapy w/o patient present 50 mins Marital/partner relational problem Isaakrene Berger CONTRACT CONSULTANT Comment on above: Marital/partner relational problem; Bipolar II disorder, most recent episode major depressive (CMS/HCC); Generalized anxiety disorder (CMS/HCC) Start: 07-04-2024 End: 07-04-2024 Psychotherapy w/patient 60 minutes Marital/partner relational problem Isaak Berger CONTRACT CONSULTANT Comment on above: Marital/partner relational problem; Bipolar II disorder, most recent episode major depressive (CMS/HCC) Start: 12-01-2023 ft (qualifier value) [employer] Comment on above: flat foot Start: 10-13-2022 MRI of head PHYSICIAN NO FAMILY Start: 10-27-2020 SARS Antigen (LFIA) Kit Reyes ([facility]) Cholecystectomy AME ZARAGOZA Colonoscopy [employer] Reservationszaina Mcelroy Dilation and curettage NAA ZARAGOZA Ear structure (body structure) [employer]a [employer] Esophagogastroduodenoscopy M prguille Mcelroy History of cholecystectomy S/P cholecyste ctomy playnikzaina EZbuildingEHSli Hysterectomy Lester Dominguezli Laparoscope, device (physical object) playnikzaina Trufawaleli Mass of body structure (finding) playnikzaina [employer]ag[employer]aine Comment on above: arm Nasal sinus structur e (body structure) AME ZARAGOZA Nasal sinus structur e (body structure) Lester Mcelroy Comment on above: x2 Tonsillectomy AME ZARAGOZA Urine culture ATHLETIC MONITOR-C Sil Zaragoza Work Phone: wisdom teeth AME ZARAGOZA Plan of Treatment Date Care Activity Detail Author Start: 02-08-2029 Urine microalbumin profile DTaP,Tdap,Td Vaccine (2 - Td or Tdap) [facility] Start: 07-01-2025 Influenza vaccination Influenz a Vaccine (Season Ended) [facility] Start: 05-16-2025 ambulatory Ambulatory Facility:[facility] Start: 03-20-2025 End: 03-20-2025 Patient encounter procedure 03/20/2025 8:20 AM EDT Office Visit GIANNA TAMEZ [address] [place] [address] Kaylynn Jara PA [address] [place], [place] [id number] GIANNA TAMEZ Start: 02-22-2025 End: 02-22-2025 Social Work 02/22/2025 3:00 PM EDT Social Work [facility] [address] [facility] [place] [address] Isaak Berger LSW [facility] Start: 02-08-2025 End: 02-08-2025 Social Work 02/08/2025 1:00 PM EDT Social Work [facility] [address] [place] [address] Isaak Berger LSW [facility] Start: 02-05-2025 End: 02-05-2025 Patient encounter procedure GIANNA TAMEZ Comment on above: Arrived Start: 02-01-2025 End: 02-01-2025 Social Work [facility] Comment on above: Arrived Start: 01-30-2025 End: 01-30-2025 Patient encounter procedure [facility] Comment on above: Arrived Start: 01-29-2025 End: 01-29-2025 Patient encounter procedure 01/29/2025 4:15 PM EDT Office Visit GIANNA TAMEZ [address] [place] [phone] Akira Gavin DO [address] [place], [place] [id number] GIANNA TAMEZ Start: 01-25-2025 End: 01-25-2025 Social Work 01/25/2025 1:00 PM EDT Social Work [facility] [address] [place] [address] Isaak Berger LSW [facility] Start: 01-18-2025 End: 01-18-2025 Social Work 01/18/2025 1:00 PM EDT Social Work [facility] [address] [place] [address] Isaak Berger LSW [facility] Start: 01-11-2025 End: 01-11-2025 Social Work 01/11/2025 1:00 PM EDT Social Work [facility] [address] [place] [address] Isaak Berger LSW [facility] Start: 01-04-2025 End: 01-04-2025 Social Work 01/04/2025 11:00 AM EST Social Work [facility] BH [address] [place] [address] Isaak Berger LSW [facility] Start: 01-03-2025 End: 01-03-2025 Patient encounter procedure [facility] [place] [facility] Start: 12-28-2024 End: 12-28-2024 Social Work 12/28/2024 11:00 AM EST Social Work [facility] BH [address] [place] [address] Isaak Berger LSW [facility] Start: 12-26-2024 End: 12-26-2024 Patient encounter procedure 12/26/2024 9:00 AM EST Office Visit [facility] [place] [address] Yue Perez, PA [address] [place] [address] [facility] Start: 12-13-2024 End: 12-13-2024 Patient encounter procedure 12/13/2024 4:30 PM EST Office Visit [facility] [address] [place] [address] Chelsea Virk, CASH RECONCILIATION SPECIALIST-MASS COMMUNICATIONS PROFESSOR [address] [place] [address] [facility] Start: 12-04-2024 End: 12-04-2024 Patient encounter procedure 12/04/2024 3:00 PM EST Office Visit [facility] [address] [place] [address] Yue Perez, PA [address] [place] [address] [facility] Start: 11-22-2024 End: 11-22-2024 Telemedicine consultation with patient 11/22/2024 3:30 PM EST Telemedicine [facility] [address] [place] [address] Chelsea Virk, CASH RECONCILIATION SPECIALIST-MASS COMMUNICATIONS PROFESSOR [address] [place] [address] [facility] Start: 11-06-2024 End: 11-06-2024 Patient encounter procedure 11/06/2024 4:30 PM EST Office Visit [facility] [address] [place] [address] Chelsea Virk, CASH RECONCILIATION SPECIALIST-MASS COMMUNICATIONS PROFESSOR [address] [place] [address] [facility] Start: 09-12-2024 End: 09-12-2024 Patient encounter procedure 09/12/2024 8:40 AM EST Office Visit [facility] [place] [address] [place] [address] Ericka Aguilar NP [address] [place] [address] [facility] [facility] Start: 09-05-2024 End: 09-05-2024 Patient encounter procedure 09/05/2024 4:00 PM EST Office Visit [facility] [address] [place] [address] Chelsea Virk, CASH RECONCILIATION SPECIALIST-MASS COMMUNICATIONS PROFESSOR [address] [place] [address] [facility] Start: 08-09-2024 End: 08-09-2024 Patient encounter procedure 08/09/2024 9:00 AM EDT Office Visit [facility] [address] [place] [address] Chelsea Virk, CASH RECONCILIATION SPECIALIST-MASS COMMUNICATIONS PROFESSOR [address] [place] [address] Arrived [facility] Comment on above: Arrived Start: 08-01-2024 End: 08-01-2024 Patient encounter procedure 08/01/2024 9:00 AM EDT Office Visit [facility] [address] [place] [address] Chelsea Virk, CASH RECONCILIATION SPECIALIST-MASS COMMUNICATIONS PROFESSOR [address] [place] [address] [facility] Start: 07-17-2024 End: 07-17-2024 Patient encounter procedure [facility] [place] [facility] Comment on above: Chronic migraine wit hout aura without status migrainosus, not intractable (CMS/HCC) (Primary Dx); Tremor Start: 07-13-2024 End: 07-13-2024 [facility] Comment on above: Arrived Start: 07-11-2024 End: 07-11-2024 Patient encounter procedure 07/11/2024 9:00 AM EDT Office Visit [facility] [place] [address] [place] [address] Ericka Aguilar, SUPERVISOR PIPELINE [address] [place] [address] [facility] [place] [address] [facility] Start: 07-04-2024 End: 07-04-2024 Social Work 07/04/2024 8:00 AM EDT Social Work [facility] [address] [place] [address] Isaak Berger LSW [facility] Comment on above: Arrived Start: 07-01-2024 Covid-19 Vaccine () Covid-19 Vaccine () [facility] Start: 07-01-2024 Influenza vaccination Influenza Vacc ine (#1) [facility] Start: 2007 Screening for malign ant neoplasm of cervix Cervical Cancer Screening [facility] Start: 2004 Anxiety Screening Anxiety Screening [facility] Start: 2004 Depression Screening Depression Scre ening [facility] Start: 2004 Hepatitis C [facility] Start: 2004 HIV screening HIV Screening [facility] Cytology Cervical or vaginal smear or scraping study Pap Smear Pathology and Cytology Routine Well woman exam with routine gynecological exam Ordered: 12/26/2024 [facility] Work Phone: Comment on above: Ordered: 12/26/2024 Human papilloma viru s DNA [Presence] in Unspecified specimen by Probe with amplification HPV DNA probe, amplified Microbiology Routine Well woman exam with routine gynecological exam Ordered: 12/26/2024 [facility] Comment on above: Ordered: 12/26/2024 Immunizations Immunization Date Immunization Notes Care Provider Chaim kumar 08-04-2022 influenza virus vaccine, unspecified formulation Lester Mcelroy [facility] 08-04-2022 influenza, injectabl e, quadrivalent, preservative free Isaak Berger [facility] 07-13-2022 SARS-CoV-2 (COVID-19 ) mRNA-1273 vaccine Mohamad Mouchli [facility] 11-22-2021 COVID-19 Vaccine Moderna - Documentation Purposes Only Ame Zaragoza Other [facility] 08-13-2020 influenza virus vaccine, unspecified formulation Mohamad Mouchli [facility] 08-07-2020 influenza virus vaccine, unspecified formulation Mohamad Mouchli [facility] 08-07-2020 influenza, injectabl e, quadrivalent, preservative free Isaak Berger [facility] 09-06-2019 influenza, injectabl e, quadrivalent, preservative free Isaak Berger [facility] 08-09-2019 hepatitis B vaccine, adult dosage Mohamad Mouchli [facility] 08-05-2019 influenza virus vaccine, unspecified formulation Mohamad Mouchli [facility] 08-05-2019 influenza, injectabl e, quadrivalent, preservative free Isaak Berger [facility] 03-15-2019 hepatitis B vaccine, adult dosage Mohamad Mouchli [facility] 03-15-2019 varicella virus vaccine Moha mad Mouchli [facility] 02-08-2019 hepatitis B vaccine, adult dosage Mohamad Mouchli [facility] 02-08-2019 tetanus toxoid, redu emmett diphtheria toxoid, and acellular pertussis vaccine, adsorbed Mohamad Mouchli [facility] 02-08-2019 varicella virus vaccine Moha mad Mouchli [facility] 01-07-2019 influenza virus vaccine, unspecified formulation Lester Mcelroy [facility] 01-07-2019 influenza, seasonal, injectable, preservative free Isaak Berger [facility] Healthcare Payers Date Payer Category Payer Managed Care HMO (unspecified) [id number] 2021 Private Health Insurance [id number] 1986 Unknown [id number] 2.16.840.1.827732.3.579.2.593 1986 Unknown [id number] 2.16.840.1.904448.3.579.2.593 1986 Unknown [id number] 2.16.840.1.718425.3.579.2.593 1986 Unknown [id number] 2.16.840.1.652427.3.579.2.593 1986 Unknown [id number] 2.16.840.1.553841.3.579.2.593 1986 Unknown [id number] 2.16.840.1.793513.3.579.2.593 1986 Unknown [id number] 2.16.840.1.723487.3.579.2.593 1986 Unknown [id number] 2.16.840.1.644463.3.579.2.727 1986 Unknown [id number] 2.16.840.1.522977.3.579.2.1259 1986 Unknown [id number] 2.16.840.1.146767.3.579.2.1259 1986 Unknown [id number] 2.16.840.1.985822.3.579.2.1258 1986 Unknown [id number] 2.16.840.1.816672.3.579.2.1258 1986 Unknown [id number] 2.16.840.1.521292.3.579.2.1258 1986 Unknown [id number] 2.16.840.1.781615.3.579.2.1258 1986 Unknown [id number] 2.16.840.1.167201.3.579.2.1258 1986 Unknown [id number] 2.16840.1.428627.3.579.2.1258 1986 Unknown [id number] 2.840.1.596309.3.579.2.1258 1986 Unknown [id number] 2.840.1.529443.3.579.2.1258 1986 Unknown [id number] 2.840.1.937467.3.579.2.1258 1986 Unknown [id number] 2.840.1.982868.3.579.2.1258 1986 Unknown [id number] 2.840.1.410348.3.579.2.1258 1986 Unknown [id number] 2.840.1.943187.3.579.2.1258 1986 Unknown [id number] 2.16840.1.142772.3.579.2.1258 1986 Unknown [id number] 2.16.840.1.292236.3.579.2.1258 1986 Unknown [id number] 2.16.840.1.379265.3.579.2.1258 1986 Unknown [id number] 2.16840.1.265258.3.579.2.1258 1986 Unknown [id number] 2.16.840.1.872084.3.579.2.9 1986 Unknown [id number] 2.16.840.1.874785.3.579.2.9 1986 Unknown [id number] 2.16.840.1.362067.3.579.2.9 1986 Unknown [id number] 2.16.840.1.402175.3.579.2.1258 1986 Unknown [id number] 2.16.840.1.935495.3.579.2.1258 1986 Unknown [id number] 2.16.840.1.160736.3.579.2.1258 1986 Unknown [id number] 2.16.840.1.838379.3.579.2.6 1986 Unknown [id number] 2.16840.1.754226.3.579.2. 1986 Unknown [id number] 2.16.840.1.396948.3.579.2. 1986 Unknown [id number] 2.16.840.1.879993.3.579.2. 1986 Unknown [id number] 2.16.840.1.872686.3.579.2.727 1959 Private Health Insurance [id number] Private Health Insurance [id number] 2.16.840.1.720893.19 Self-pay Self Pay [id number] Unknown [id number] Unknown [id number] Unknown [id number] Social History Date Type Detail Facility Start: 11-25-2020 End: 03-14-2025 Tobacco smoking status NHIS Never smoked tobacco (finding) [facility] Start: 1985 Sex Assigned At Female F [facility] Start: 07-17-2024 End: 01-30-[address] [facility] Tobacco smoking status Never Luz [facility] Start: 03-22-2023 Tobacco use and exposure Smokeless tobacco non-user [facility] Start: 07-17-2024 End: 02-05-2025 Alcoholic beverage intake Lifetime non-drinker (finding) [facility] Start: 07-17-2024 End: 01-30-2025 History of Social function [facility] Start: 03-19-2023 Education 21 [facility] Start: 03-19-2023 Alcohol Comment caffeine intak e: 1-2 cups per day [facility] Healthcare Start: 1986 Sex assigned at Not on file N [facility] Start: 10-05-2013 End: 09-19-2024 Sex Female (finding) [facility] Tobacco smoking stat [place] Tobacco smoking consumption unknown [facility] Sexual Orientation [facility] Medical Equipment Procedure Code Equipment Code Equipment Origin al Text Equipment Identifier Dates Test Strips as directed Start: 09-02-2022 Goals Date Patient Goal Desired Activity /State Functional Status Date Assessment Result Facility 03-14-2025 Functional Status N/A [facility] 04-09-2024 Functional Status N/A [facility] Clinical Notes 08-22-2021 to 04-08-2025 Note Date & Type Note Facility 04-08-2025 Evaluation + Plan note Extrac carmen from: Title:ANES Post-operative Note - Endo Author:Mickie Sands MD Date:04/08/25 Plan Transfer/Discharge: Transfer/Discharge Discharge when meets criteria ( From PACU to Ambulatory Surgery Unit, and To home ). Extracted from: Title:ANES Pre-operative Note - Endo Author:Mickie Villafana MD Date:04/08/25 Plan [place] [employer]hes[employer] (ASA) physical status classification: Class II. Anesthetic Preoperative Plan: Anesthesia General, and -TIVA. Future Appointments Appointment Date:05/16/2025 08:15:00 AM Scheduled Provider:Lester Mcelroy MD Location:[facility] Digestive Health Appointment Type:[facility] Follow Up [facility] 06-09-2025 Hospital Discharge instructions Patient Education [...] reduce GERD symptoms. Medicines. These may include: ?Gbyi-rwi-ddueaen antacids. ?Medicines that make your stomach empty [...] may include: ?Fatty foods, like fried foods. ?[place] fruits, like oranges or lemon. ?Other foods [...] Do not drink alcohol. General instructions Take yxjw-omj-vndtnov and prescription medicines only as told by [...] provider. Document Revised: 12/14/2022 Document Reviewed: 12/14/2022 [employer] Patient Education 2023 [employer]. 04/08/2025 10:18:25 Colonoscopy, Care After Surgery Salam (CUSTOM) Colonoscopy Care After Surgery Please read the instructions outlined below and refer to this sheet in the next few weeks. These discharge instructions provide you with general information on [facility] Your doctor may also give you [...] Care 03/14/2025 09:38:27 With:Navi MACK, Lester Godoy, [facility], [facility] Address: [address] [place] [address], [address] [place] [phone] When: Unknown Comments:Office will call Date and Time of Follow-up Appt if needed. [facility] 06-09-2025 NoteProgress Note-Physician Patient: NOBLE CASTILLO [...] water, # 360 tab(s), Refills(s) 0, Pharmacy: [facility]/pharmacy #[id number], 162, cm, 03/14/25 8:51:00 EDT, Height/Length [...] All Problems Abdominal bloating / SNOMED CT 396734321 / Confirmed Chronic diarrhea / SNOMED CT 130940185 / Confirmed Chronic GERD / SNOMED CT 304327084 / Confirmed Depression / SNOMED CT 87324347 / Confirmed Gastric erosion / SNOMED CT 168385105 / Confirmed Heartburn / SNOMED CT 51815091 / Confirmed Hypoglycemia / SNOMED CT 871232272 / Confirmed Kidney stone / SNOMED CT 882400661 / Confirmed Lower abdominal pain / SNOMED CT 82707015 / Confirmed Migraine / SNOMED CT 04878712 / Confirmed S/P cholecystectomy / SNOMED CT 3169036606 / Confirmed Physical Examination Vital Signs 04/08/2025 [...] bpm Systolic Blood Pr (more content not included)...[facility] Comment on above:Result Comment: Electronically Signed By: Ledy MACK, Mickie Styles\.br\Date and Time Signed: 04/08/25 11:37 [id number] NotePatient Education - Text Colonoscopy Care After [...] symptoms. ??? Medicines. These may include: ? Suiy-ozv-vkhgbqg antacids. ? Medicines that make your stomach [...] ??? Try to achieve (more content not included)...[facility] 04-08-2025 NoteProgress Note-Physician Patient: NOBLE CASTILLO Age: [...] water, # 360 tab(s), Refills(s) 0, Pharmacy: [facility]/pharmacy #[id number], 162, cm, 03/14/25 8:51:00 EDT, Height/Length [...] All Problems Abdominal bloating / SNOMED CT 867161062 / Confirmed Chronic diarrhea / SNOMED CT 612985260 / Confirmed Chronic GERD / SNOMED CT 145226920 / Confirmed Depression / SNOMED CT 37635401 / Confirmed Gastric erosion / SNOMED CT 192331038 / Confirmed Heartburn / SNOMED CT 47601839 / Confirmed Hypoglycemia / SNOMED CT 191166946 / Confirmed Kidney stone / SNOMED CT 625889052 / Confirmed Lower abdominal pain / SNOMED CT 82530203 / Confirmed Migraine / SNOMED CT 53926229 / Confirmed S/P cholecystectomy / SNOMED CT 3304206756 / Confirmed, Active Problems (11) Abdominal bloating Chronic diarrhea Chronic GERD Depression Gastric erosion Heartburn Hypoglycemia Kidney stone Lower abdominal pain Migraine S/P cholecystectomy Histories Past Medical History: No active or resolved past medical history items have been selected or recorded. Family History: COPD Father Heart failure Father Acute myocardial infarction Mother Procedure history: Foot ([id number]) on 12/01/2023 at 38 Years. Comments: 04/09/2024 13:32 Natalya Lopez flat foot Tonsillectomy (314262510). Cholecystectomy (25009226). Dilation and curettage (27523768). Nasal sinus (8281983). Comments: 03/14/2025 8:44 Natalya Lopez x2 wisdom teeth. Lump (2636324920). Comments: 03/14/2025 8:44 Natalya Lopez arm Hysterectomy (273393160). Laparoscope (094148467). Ear (2976665877). EGD - esophagogastroduodenoscopy (9101144988). Colonoscopy (318481305). Social History Social & Psychosocial Habits Alcohol [...] 162.0 cm Weight Do (more content not included)...[facility]Result Comment: Electronically Signed By: Ledy MACK, Mickie Styles\.br\Date and Time Signed: 04/08/25 08:50 [id number] History of Present illness Narrative* JESICA Castellanos [...] wrist extensors , wrist flexor , and electroplater strength 5/5. LUE strength deltoid , biceps , triceps , wrist extensors , wrist flexor , and electroplater strength 5/5. RLE strength iliopsoas, quadriceps, tibialis [...] instructions Kaylynn Jara PA-C documented in this encounterBates County Memorial HospitalVwmqvpvjkm17-34-0908 NoteHNO ID: [id number] Author: KIMBERLEE DENISE RT(Twila) Service: ? Author [...] PATIENT PRESENTS WITH AN IMPLANTABLE OR ATTACHED AUTO PARTS DELIVERY DRIVER: No RADIOLOGY DEPARTMENT: General X-ray: Exam(s) Completed: Lower Extremity X-Ray(s): Foot, Right and Wt. Bearing and Heel, Right and Wt. Bearing PERIPHERAL IV DATA: Not applicable SIGNED BY: RT Huber(R) December 26, 2024 4:01 [facility]02-26-2025 History of Present illness Narrative* Kimberlee Denise [...] PATIENT PRESENTS WITH AN IMPLANTABLE OR ATTACHED AUTO PARTS DELIVERY DRIVER: No RADIOLOGY DEPARTMENT: General X-ray: Exam(s) Completed: Lower Extremity X- Ray(s): Foot, Right and Wt. Bearing and Heel, Right and Wt. Bearing PERIPHERAL IV DATA: Not applicable SIGNED BY: RT Huber(R) December 26, 2024 4:01 PM documented [facility] NoteHNO ID: [id number] Author: GERALDINE BOLAÑOS DPM Service: ? Author [...] , HBA1C , VITD25 in the last 15446 hours. X-ray weight bearing RIGHT FOOT with calcaneus axial MRI reviewed from outside / non [facility] facility ASSESSMENT: Z98.890 History of foot [...] and/or coordinating care for the patient. [facility] History of Present illness Narrative* Geraldine [...] , HBA1C , VITD25 in the last 53052 hours. X-ray weight bearing RIGHT FOOT with calcaneus axial MRI reviewed from outside / non [facility] facility ASSESSMENT: Z98.890 History of foot [...] patient. Geraldine Bolaños DPM documented in this encounterOhiohealth [facility]02-26-2025 History of Present illness Narrative* JESICA [...] Protonix 40 mg, Daily before breakfast rizatriptan FLATWORK IRONER (Maxalt-FLATWORK IRONER) 10 MG disintegrating tablet dissolve 1 tablet [...] II disorder, most recent episode major depressive ([facility]/HCC) 02/28/2023 Generalized anxiety disorder (CMS/HCC) 02/28/2023 Tremor [...] nursing note reviewed. Exam conducted with a road monkey present. Vitals: Estimated body mass index is [...] behalf of: JESICA Tavera documented in this encounterBates County Memorial HospitalIncuiclsaa16-69-3970 Telephone encounter Note* Telephone Encounter - Beckie [...] in our fax box. Thank you :) [facility] HospitalTvguiijlbg90-17-2795 Miscellaneous Notes* Telephone Encounter - Beckie Scott [...] box. Thank you :) documented in this encounterBates County Memorial HospitalChrefqrqqm34-59-8041 History of Present illness Narrative* Chelsea Virk, CASH RECONCILIATION SPECIALIST-MASS COMMUNICATIONS PROFESSOR - 12/18/2024 4:00 PM EST Images from [...] disorder with mixed anxiety and depressed mood ([facility]/HCC) 05/11/2024 Anxiety Chronic otitis media both ears [...] II disorder, most recent episode major depressive ([facility]) MAME Psych Medication List Lamictal 150mg po every day Sertraline 150mg daily Discontinue Caplyta. Trazodone 50mg 1-2 tabs. To notify office if worsening of depression or anxiety. Patient was seen Face to Face, Reviewed chart documents and documentation, Visit time : 25min Follow up 6 weeks documented in this encounterBates County Memorial HospitalNiushkbazw82-91-1584 History of Present illness Narrative* MARYELLEN Moreland [...] assess effectiveness of caplyta documented in this encounterBates County Memorial HospitalRkjjrljksv28-83-2934 Telephone encounter Note* Telephone Encounter - Danyelle Gates - 11/06/2024 3:35 PM EST Patient left a voicemail needing a refill on Vraylar 1.5 mg sent to [facility] pharmacy. Patient has a follow up on 11/22. [facility] HospitalWkbgqqjvyc52-50-4876 Miscellaneous Notes* Telephone Encounter - Danyelle Gates - 11/06/2024 3:35 PM EST Patient left a voicemail needing a refill on Vraylar 1.5 mg sent to [facility] pharmacy. Patient has a follow up on 11/22. documented in this encounterBates County Memorial HospitalOmpqdhiand59-35-3163 History of Present illness Narrative* Christine Helton [...] wrist extensors , wrist flexor , and electroplater strength 5/5. LUE strength deltoid , biceps , triceps , wrist extensors , wrist flexor , and electroplater strength 5/5. RLE strength iliopsoas, quadriceps, tibialis [...] Knee reflex 1+. Price's sign negative. Coordination: Gybkrf-on-yodp testing normal. Rapid alternating movements are normal. [...] plan, and return instructions documented in this encounterBates County Memorial HospitalOcofxesxpf17-13-5492 History of Present illness Narrative* Chelsea Virk, CASH RECONCILIATION SPECIALIST-MASS COMMUNICATIONS PROFESSOR - 09/05/2024 4:00 PM EST Images from [...] and Time Memory/Concentration Short term intact and rn long term care intact Insight/Judgement Good OBJECTIVE: Visit Vitals OB [...] 25min F/U 2 months documented in this encounterBates County Memorial HospitalJwboomhdir44-33-1685 History of Present illness Narrative* MARYELLEN Moreland [...] 35min F/U- 4 weeks documented in this encounterBates County Memorial HospitalQqxlaesipu67-94-2255 Telephone encounter Note* Telephone Encounter - Ericka Aguilar NP - 07/17/2024 11:42 AM EDT Acknowledged, thank you. [facility] HospitalGquxyxamaf15-59-3730 Miscellaneous Notes* Telephone Encounter - Ericka Aguilar [...] the patient's emergency department visits at [facility] for me to review please? documented in this encounterBates County Memorial HospitalCxdbjbowga33-87-8730 Telephone encounter Note* Telephone Encounter - Susan Bronson MA - 07/17/2024 11:01 AM EDT Yes, it is in media under ED Report 08 24 [facility] HospitalCnktrsijgs81-85-8774 Telephone encounter Note* Telephone Encounter - Ericka Aguilar NP - 07/17/2024 9:36 AM EDT Are you able to request records from the patient's emergency department visits at [facility] for me to review please? [facility] HospitalBahwwdqkbc00-17-0671 History of Present illness Narrative* Ericka Aguilar [...] minutes of use. She has also tried fbeh-djw-wrudhqh medications and essential oils for her symptoms with minimal relief. Thepatient has been to [facility] ([facility]) Emergency Department 3 times within the past year for migraines which were not relieved by rizatriptan. She states [facility] did not complete imaging at any [...] a day. She follows with psychiatry in [place], [place]. She states her psychiatrist attempted to [...] MG EC tablet; Generic drug: pantoprazole rizatriptan FLATWORK IRONER 10 MG disintegrating tablet; Commonly known as: Maxalt-FLATWORK IRONER semaglutide 2 MG/1.5ML solution pen-injector; Commonly known [...] wrist extensors , wrist flexor , and electroplater strength 5/5. LUE strength deltoid , biceps , triceps , wrist extensors , wrist flexor , and electroplater strength 5/5. RLE strength iliopsoas, quadriceps, tibialis [...] reflex 1+. LLE Knee reflex 1+. Coordination: Ekifca-pr-akbk testing normal. Rapid alternating movements are normal. [...] NP [facility] documented in this [facility]09-17-2024 Instructions* Patient Instructions* Ericka Aguilar NP - 07/17/2024 8:20 AM EDT - Start Ajovy 225 mg subcutaneous once every 30 days for migraine prevention documented in this [facility]06-12-2024 Evaluation + Plan note Diagnostic Tests Pending * Calprotectin, Fecal 04/11/24 * Enteric Panel by PCR 04/11/24 * O & P Exam, Routine 04/11/24 * Pancreatic Elastase, Fecal 04/11/24 [facility]06-10-2024 Evaluation + Plan note Future Scheduled Tests Laboratory* Pancreatic Elastase, Fecal 04/09/24 * Calprotectin, Fecal 04/09/24 * O & P Exam, Routine 04/09/24 * Clostridium Difficile PCR 04/09/24 * Enteric Panel by PCR 04/09/24 [facility] 06-10-2024 Evaluation + Plan note Diagnostic Tests Pending * Celiac Disease Comprehensive 04/09/24 Future Scheduled Tests Laboratory* Pancreatic Elastase, Fecal 04/09/24 * Calprotectin, Fecal 04/09/24 * O & P Exam, Routine 04/09/24 * Clostridium Difficile PCR 04/09/24 * Enteric Panel by PCR 04/09/24 [facility]12-18-2023 Evaluation note* Encounter Date Diagnosis Assessment [...] while sleeping. questions and concerns were addressed [employer] Other 10-11-2023 Evaluation note* Encounter Date Diagnosis [...] no improvement in 2 to 3 days [employer] Other 03-20-2023 Evaluation + Plan note Diagnostic Tests Pending * FSH and LH 01/17/23 [facility]11-09-2022 Evaluation note* Encounter Date Diagnosis Assessment [...] medication before and did have stomach upset [employer] Other 11-03-2022 Evaluation note* Encounter Date Diagnosis Assessment Notes Treatment Notes Treatment Clinical Notes Aug, Dizziness (ICD-10 - R42) Aug, History of reactive hypoglycemia (ICD-10 - Z86.39) Start with keeping journal of symptoms. Take blood sugars when you experience symptoms. [employer] Other 09-10-2022 Evaluation note* Encounter Date Diagnosis Assessment Notes Treatment Notes Treatment Clinical Notes Jul, Intractable migraine without aura and without status migrainosus (ICD-10 - G43.019) Take medication as directed. Stay away from known triggers. Follow up with primary care provider or neurology if symptoms persist. Phenergan and Toradol Im given in office. Explained medication will cause drowsiness. [employer] Other 08-27-2022 Evaluation note* Encounter Date Diagnosis Assessment Notes Treatment Notes Treatment Clinical Notes May, Migraine aura without headache (ICD-10 - G43.109) [employer] Other 07-25-2022 Evaluation note* Encounter Date Diagnosis [...] (ICD-10 - G43.109) Continue medication as needed [employer] Other 12-03-2021 Evaluation note* Encounter Date Diagnosis [...] no improvement in 5 to 7 days [employer] Other 10-23-2021 Evaluation note* Encounter Date Diagnosis [...] [facility] Care At Home document [employer] Other Evaluation + Plan note Future Appointments Appointment Date:04/08/2025 10:00:00 AM Scheduled Provider: [facility] Appointment Type:Surgery FT Appointment Date:05/16/2025 08:15:00 AM Scheduled Provider:Lester Mcelroy MD Location:[facility] Digestive Health Appointment Type:[facility] Follow Up [facility] Evaluation noteNo InformationNort [employer] Other Evaluation noteNo assessment information available [facility] Work Phone: Evaluation note* Diagnosis Bipolar II [...] ankle and tarsus documented [facility] this encounter [facility]* Diagnosis Right ankle pain, unspecified chronicity History of foot surgery Personal history of surgery to other organs Peroneal tendinitis of right lower extremity Other enthesopathy of ankle and tarsus documented [facility] this encounter [facility]Evaluation [facility]* Diagnosis Bipolar II disorder, most recent episode major depressive (CMS/HCC) Other bipolar disorders documented in this encounter [facility]* Diagnosis PTSD (post-traumatic stress disorder) ([facility]) Posttraumatic stress disorder Bipolar II disorder, most recent episode major depressive ([facility]) Other bipolar disorders documented in this encounter [facility]* Diagnosis Bipolar II disorder, most recent episode major depressive ([facility]) Other bipolar disorders documented in this encounter [facility]* Diagnosis PTSD (post-traumatic stress disorder) ([facility]) Posttraumatic stress disorder Bipolar II disorder, most recent episode major depressive ([facility]) Other bipolar disorders documented in this encounter [facility]* Diagnosis Chronic migraine without aura without status migrainosus, not intractable ([facility])- Primary Tremor Abnormal involuntary movements documented in this encounter [facility]* Diagnosis PTSD (post-traumatic stress disorder) ([facility]) Posttraumatic stress disorder Bipolar II disorder, most recent episode major depressive ([facility]) Other bipolar disorders documented in this encounter [facility] HealthcareHistory general Narrative - Reported* Type Description Date Medical History bipolar depression Medical History hx stomach ulcers Medical History migraine headaches Surgical History T&A 1997 Surgical History [place] Teeth 2005 Surgical History Keloid Scar from [...] Surgical History hysterectomy Hospitalization History See Above [employer] Other Hisqjuc general Narrative - Reported* Type Description Date Medical History bipolar depression Medical History hx stomach ulcers Medical History migraine headaches Medical History IBS Medical History chronic depression Medical History anxiety Medical History Gestational diabetes - yes Medical History PCOS Medical History Esophageal reflux Medical History fatigue Medical History lactose intolerance Medical History obesity Surgical History T&A 1997 Surgical History [place] Teeth 2005 Surgical History Keloid Scar from [...] reconstruction 2 021 Hospitalization History See Above [employer] Other Hislixz general Narrative - Reported* Type Description Date Medical History bipolar depression Medical History hx stomach ulcers Medical History migraine headaches Medical History IBS Medical History chronic depression Medical History anxiety Medical History Gestational diabetes - yes Medical History PCOS Medical History Esophageal reflux Medical History fatigue Medical History lactose intolerance Medical History obesity Surgical History T&A 1997 Surgical History [place] Teeth 2005 Surgical History Keloid Scar from [...] reconstruction 2 021 Hospitalization History See Above [employer] Other Hospital course Narrative No data available for this section [facility] Discharge instructions No data available for this section [facility] HospitalProgress note No data available for this section [facility] Advance Directives No Advanced Directives Records Found Advance Directive Response Recorded Date/ Time Advance Directives No April 08 0 6:58am Advance Directive Response Recorded Date/ Time Advance Directives No April 08 0 7:58am Chief Complaint and Reason for Visit [facility] Dysmenorrhea,Dyspareunia,Abnormal Uterine Bleeding Chief Complaint [...] / Behavioral Health Diagnoses med mgmt Procedures MT OFFICE/OUTPATIENT ESTABLISHED LOW MDM [facility] [address] [facility] [address] [place] [address] Phone: tel: fax: Chelsea Virk, MONA-MASS COMMUNICATIONS PROFESSOR [address] [facility] [address] [place] [address] Phone: tel: fax: Referral ID Status Reason Start Date Expiration Date Visits Re quested Visits Authorized [id number] Closed 10/11/2024 04/09/2025 1 1 Reason Comments [...] MINIMUM 3 VIEWS Geraldine Bolaños DPM [address] [place] [address] Phone: tel: fax: [place] [address] Referral ID Status Reason Start Date Expiration Date V isits Requested Visits Authorized [id number] Closed Auto-Generate d Referral 12/12/2024 01/11/2026 1 1 Reason Comments New Patient Assessment Reason Comments Counseling session Specialty Diagnoses / Procedures Referred By Contact Referred To Contact Site Auditor / Behavioral Health Diagnoses Counseling Procedures Counseling Chelsea Virk, CASH RECONCILIATION SPECIALIST-MASS COMMUNICATIONS PROFESSOR [address] [facility] [address] [place] [address] Phone: tel: fax: Isaak Berger LSW Referral ID Status Reason Start Date Expiration Date Visits Re quested Visits Authorized [id number] Closed 12/24/2024 06/22/2025 99 99 Reason Comments Migraine Referral ID Status Reason Start Date Expiration Date V isits Requested Visits Authorized [id number] Authorized 12/24/2024 06/22/2025 99 99 Care Teams [...] February 26, 2024 End: February 26, 2024 Assisted Living Housekeeper Relationship Specialty Start Date End Date Unallocated, [place] [address] PCP - General Family Medicine 05/11/24 Assisted Living Housekeeper Relationship Specialty Start Date End Date Unallocated, [place] [address] PCP - General Family Medicine 05/11/24 Assisted Living Housekeeper Relationship Specialty Start Date End Date Unallocated, [place] [address] PCP - General Family Medicine 05/11/24 Team Status: Inactive Member Role Status Dates Ame Zaragoza ATHLETIC MONITOR- Primary Care Provider Activ e Start: September 19, 2024 End: September 19, 2024 Taisha Tejada APRN Attending Provider Active S tart: September 19, 2024 End: September 19, 2024 Assisted Living Housekeeper Relationship Specialty Start Date End Date Unallocated, [place] [address] PCP - General Family Medicine 05/11/24 Assisted Living Housekeeper Relationship Specialty Start Date End Date Unallocated, [place] [address] PCP - General Family Medicine 05/11/24 Assisted Living Housekeeper Relationship Specialty Start Date End Date Unallocated, [place] [address] PCP - General Family Medicine 05/11/24 Assisted Living Housekeeper Relationship Specialty Start Date End Date Unallocated, [place] [address] PCP - General Family Medicine 05/11/24 Assisted Living Housekeeper Relationship Specialty Start Date End Date Unallocated, [place] [address] PCP - General Family Medicine 05/11/24 Assisted Living Housekeeper Relationship Specialty Start Date End Date Unallocated, Vanessa Pulido MD [address] [place] [address] PCP - General Family Medicine 05/11/24 Akira Gavin DO [address] [id number] Referring Physician Neurology 11/01/24 Assisted Living Housekeeper Relationship Specialty Start Date End Date Unallocated, Vanessa Pulido MD [facility] [place] [address] PCP - General Family Medicine 05/11/24 Akira Gavin DO [address] [address] Referring Physician Neurology 11/01/24 Assisted Living Housekeeper Relationship Specialty Start Date End Date Unallocated, Vanessa Pulido MD [address] [place] [id number] PCP - General Family Medicine 05/11/24 Akira Gavin DO [address] [address] Referring Physician Neurology 11/01/24 Assisted Living Housekeeper Relationship Specialty Start Date End Date Unallocated, Vanessa Pulido MD [address] [place] [id number] PCP - General Family Medicine 05/11/24 Akira Gavin DO [address] [address] Referring Physician Neurology 11/01/24 Chelsea Virk, CASH RECONCILIATION SPECIALIST-MASS COMMUNICATIONS PROFESSOR [address] [place] [phone] Nurse Practitioner Psychiatry 11/16/24 Assisted Living Housekeeper Relationship Specialty Start Date End Date Unallocated, Vanessa Pulido MD [address] [place] [address] PCP - General Family Medicine 05/11/24 Akira Gavin DO [address] [place], [place] [id number] Referring Physician Neurology 11/01/24 Chelsea Virk, CASH RECONCILIATION SPECIALIST-MASS COMMUNICATIONS PROFESSOR 112 [facility] [address] [place] [address] Nurse Practitioner Psychiatry 11/16/24 Assisted Living Housekeeper Relationship Specialty Start Date End Date Unallocated, Vanessa Pulido MD [address] [place] [address] PCP - General Family Medicine 05/11/24 Akira Gavin DO [address] [place] [id number] Referring Physician Neurology 11/01/24 Chelsea Virk, CASH RECONCILIATION SPECIALIST-MASS COMMUNICATIONS PROFESSOR [address] [address] Nurse Practitioner Psychiatry 11/16/24 Assisted Living Housekeeper Relationship Specialty Start Date End Date Unallocated, Vanessa Pulido MD [address] [place] [address] PCP - General Family Medicine 05/11/24 Akira Gavin DO [address] [address] Referring Physician Neurology 11/01/24 Chelsea Virk, CASH RECONCILIATION SPECIALIST-MASS COMMUNICATIONS PROFESSOR 112 [facility] [address] [place] [address] Nurse Practitioner Psychiatry 11/16/24 Assisted Living Housekeeper Relationship Specialty Start Date End Date Unallocated, Vanessa Pulido MD [address] [place] [address] PCP - General Family Medicine 05/11/24 Akira Gavin DO [address] [place] [id number] Referring Physician Neurology 11/01/24 Chelsea Virk, CASH RECONCILIATION SPECIALIST-MASS COMMUNICATIONS PROFESSOR 112 [facility] [address] [place] [address] Nurse Practitioner Psychiatry 11/16/24 Assisted Living Housekeeper Relationship Specialty Start Date End Date Unallocated, Vanessa Pulido MD [address] [place] [address] PCP - General Family Medicine 05/11/24 Akira Gavin DO [address] [place] [id number] Referring Physician Neurology 11/01/24 Chelsea Virk, CASH RECONCILIATION SPECIALIST-MASS COMMUNICATIONS PROFESSOR [address] [address] Nurse Practitioner Psychiatry 11/16/24 Assisted Living Housekeeper Relationship Specialty Start Date End Date Unallocated, Vanessa Pulido MD [address] [place] [address] PCP - General Family Medicine 05/11/24 Akira Gavin DO [address] [place] [id number] Referring Physician Neurology 11/01/24 Chelsea Virk, CASH RECONCILIATION SPECIALIST-MASS COMMUNICATIONS PROFESSOR [address] [facility] [address] [place] [address] Nurse Practitioner Psychiatry 11/16/24 Assisted Living Housekeeper Relationship Specialty Start Date End Date Unallocated, Vanessa Pulido MD [address] [place] [address] PCP - General Family Medicine 05/11/24 Akira Gavin DO [address] [place], [place] [phone] Referring Physician Neurology 11/01/24 Chelsea Virk, CASH RECONCILIATION SPECIALIST-MASS COMMUNICATIONS PROFESSOR [address] [place] [facility] [address] [place] [address] Nurse Practitioner Psychiatry 11/16/24 Assisted Living Housekeeper Relationship Specialty Start Date End Date Unallocated, Vanessa Pulido MD [address] [place] [address] PCP - General Family Medicine 05/11/24 Akira Gavin DO [address] [place], [place] [phone] Referring Physician Neurology 11/01/24 Chelsea Virk, CASH RECONCILIATION SPECIALIST-MASS COMMUNICATIONS PROFESSOR [address] [place] [facility] [address] [place] [address] Nurse Practitioner Psychiatry 11/16/24 Assisted Living Housekeeper Relationship Specialty Start Date End Date Unallocated, Vanessa Pulido MD [address] [place] [address] PCP - General Family Medicine 05/11/24 Akira Gavin DO [address] [place] [phone] Referring Physician Neurology 11/01/24 Chelsea Virk, CASH RECONCILIATION SPECIALIST-MASS COMMUNICATIONS PROFESSOR [address] [facility] 160 [place] [address] Nurse Practitioner Psychiatry 11/16/24 Assisted Living Housekeeper Relationship Specialty Start Date End Date Unallocated, Vanessa Pulido MD [address] [place] [address] PCP - General Family Medicine 05/11/24 Akira Gavin DO [address] [place] [phone] Referring Physician Neurology 11/01/24 Chelsea Virk, CASH RECONCILIATION SPECIALIST-MASS COMMUNICATIONS PROFESSOR [address] [facility] [address] [place] [address] Nurse Practitioner Psychiatry 11/16/24 Assisted Living Housekeeper Relationship Specialty Start Date End Date Unallocated, Vanessa Pulido MD [address] [place] [address] PCP - General Family Medicine 05/11/24 Akira Gavin DO [address] [place] [phone] Referring Physician Neurology 11/01/24 Chelsea Virk, CASH RECONCILIATION SPECIALIST-MASS COMMUNICATIONS PROFESSOR [address] [facility] 160 [place] [address] Nurse Practitioner Psychiatry 11/16/24 Assisted Living Housekeeper Relationship Specialty Start Date End Date Unallocated, Vanessa Pulido MD [address] [place] [address] PCP - General Family Medicine 05/11/24 Akira Gavin DO [address] [address] Referring Physician Neurology 11/01/24 Chelsea Virk, CASH RECONCILIATION SPECIALIST-MASS COMMUNICATIONS PROFESSOR [address] [place] [facility] [address] [place] [address] Nurse Practitioner Psychiatry 11/16/24 Assisted Living Housekeeper Relationship Specialty Start Date End Date Unallocated, Vanessa Pulido MD [address] [place] [address] PCP - General Family Medicine 05/11/24 Akira Gavin DO [address] [place] [phone] Referring Physician Neurology 11/01/24 Chelsea Virk, CASH RECONCILIATION SPECIALIST-MASS COMMUNICATIONS PROFESSOR [address] [place] [facility] [address] [place] [address] Nurse Practitioner Psychiatry 11/16/24 Assisted Living Housekeeper Relationship Specialty Start Date End Date Unallocated, Vanessa Pulido MD [address] [place] [address] PCP - General Family Medicine 05/11/24 Akira Gavin DO [address] [address] Referring Physician Neurology 11/01/24 Chelsea Virk, CASH RECONCILIATION SPECIALIST-MASS COMMUNICATIONS PROFESSOR [address] [place] [facility] [address] [place] [address] Nurse Practitioner Psychiatry 11/16/24 Assisted Living Housekeeper Relationship Specialty Start Date End Date Unallocated, Noms Tess, [place] [address] PCP - General Family Medicine 05/11/24 Akira Gavin DO [address] [place] [address] Referring Physician Neurology 11/01/24 Chelsea Virk APRN-MASS COMMUNICATIONS PROFESSOR 112 [facility] 160 [place] [address] Nurse Practitioner Psychiatry 11/16/24 Goals (unrecognized section and content) Goals may be documented in a n alternate section INFORMATION SOURCE (unrecogn ized section and content) DATE CREATED AUTHOR [facility]/12/2023 [facility] DATE CREATED AUTHOR AUTHOR'S ORGANIZ ATION 04/12/2024 [facility] DATE CREATED AUTHOR AUTHOR'S ORGANIZ ATION 04/13/2024 [facility] DATE CREATED AUTHOR AUTHOR'S ORGANIZ ATION 04/18/2024 [facility] DATE CREATED AUTHOR AUTHOR'S ORGANIZ ATION 04/19/2024 [facility] DATE CREATED AUTHOR AUTHOR'S ORGANIZ ATION 12/28/2024 [facility] DATE CREATED AUTHOR AUTHOR'S ORGANIZ ATION 02/24/2025 [facility] DATE CREATED AUTHOR AUTHOR'S ORGANIZ ATION 03/21/2025 [facility] DATE CREATED AUTHOR AUTHOR'S ORGANIZ ATION 03/30/2025 [facility] DATE CREATED AUTHOR AUTHOR'S ORGANIZ ATION 03/31/2025 [facility] DATE CREATED AUTHOR AUTHOR'S ORGANIZ ATION 04/10/2025 [facility] DATE CREATED AUTHOR AUTHOR'S ORGANIZ ATION 04/17/2025 [facility] DATE CREATED AUTHOR AUTHOR'S ORGANIZ ATION 04/30/2025 [facility] DATE CREATED AUTHOR AUTHOR'S LOLY ATION 05/02/2025 [facility] Source Comments (unrecognize d section and content) In the event this informatio n is protected by the Federal Confidentiality of Alcohol and Drug Abuse Patient Records regulations: The Federal rules restrict any use of the information to criminally investigate or prosecute any alcohol or drug abuse patient.[facility] Hospital[facility] the event this information is protected by the Federal Confidentiality of Alcohol and Drug Abuse Patient Records regulations: The Federal rules restrict any use of the information to criminally investigate or prosecute any alcohol or drug abuse patient.[facility] Hospital[facility] the event this information is protected by the Federal Confidentiality of Alcohol and Drug Abuse Patient Records regulations: The Federal rules restrict any use of the information to criminally investigate or prosecute any alcohol or drug abuse patient.[facility] FOR RECORDS PERTAINING TO PATIENTS WHO [...] BE BASED ON THE PRIMARY CLINICAL RECORDS. [facility]. provides no warranty or guarantee of the accuracy or completeness of information in this document.
[2025-05-12 12:32] VITALS: BP 137/88; PULSE 90; TEMP 36.7; O2SAT 97; BMI 34.2
--- NOTE | 2025-05-12 12:48 | XR_ITS ---
The [address] [address] Patient Name: NOBLE CASTILLO MRN: [facility]:[id number] date: 1985 Sex: F Assigned Patient Location: ER Current Patient Location: ER Accession/Order Number: [id number] Exam Date: 05/12/2025 13:50 Report Date: 05/12/2025 13:51 At the request of: JOSEMANUEL MARTINEZ NP Procedure: XR chest 2V XR chest 2V 05/12/2025 1:46 PM SIGNS AND SYMPTOMS: ^cough and fever x5 days ^Y PROTOCOL: Frontal and lateral radiographs of the chest COMPARISON: 12/10/2024 FINDINGS: The trachea is midline. The heart and mediastinal structures are within normal limits. Airspace opacities are noted at the base of the right upper lobe. The bony thorax is intact. XR/XR chest 2V IMPRESSION: Findings suggest right upper lobe pneumonia. Impression dictated by: Yovani Arita M.D. 05/12/2025 1:51 PM Dictation Location: [place] [address] Electronically authenticated by: [id number] Y Date: 05/12/2025 13:51
--- NOTE | 2025-05-12 12:50 | ED.GENADUL1 ---
HPI HPI - General Adult General Chief complaint: Upper Respiratory Infection Stated complaint: COUGH Time Seen by Provider: 05/12/25 12:41 Source: patient Mode of arrival: walk-in History of Present Illness HPI narrative: The patient is a 40-year-old female who presents to the emergency department today for evaluation of concerns for cough and generally not feeling well. She endorses since 05/08 she has had a cough with tactile temperatures. She reports she has continued to feel fatigue and have a cough and believes she continues to have tactile temperatures through yesterday. No chest pain or shortness of breath. Additionally no headaches or nausea/vomiting. She mentions her daughter tested positive for strep and mono 2 weeks ago. She does she mention she woke up this morning with some burning with urination. She denies any significant medical or surgical history other than the bipolar depression and gastric ulcers Related Data Home Medications ?Medication ?Instructions ?Recorded ?Confirmed Lactobacillus acidophilus 100 mmu cells PO DAILY 11/28/23 12/08/23 (Acidophilus capsule) cariprazine 3 mg capsule (Vraylar) 3 mg PO DAILY 11/28/23 12/08/23 cetirizine 10 mg tablet 10 mg PO DAILY PRN allergy symptoms 11/28/23 12/08/23 lamotrigine 100 mg tablet 100 mg PO DAILY 11/28/23 12/08/23 meloxicam 15 mg tablet 15 mg PO DAILY 11/28/23 12/08/23 propranolol 160 mg capsule,24 160 mg PO Q24H 11/28/23 12/08/23 hr,extended release rizatriptan 10 mg tablet 10 mg PO DAILY PRN migraine 11/28/23 12/08/23 headache sertraline 100 mg tablet 100 mg PO BID 11/28/23 12/08/23 trazodone 50 mg tablet 100 mg PO QPM PRN sleep 11/28/23 12/08/23 Previous Rx's ?Medication ?Instructions ?Recorded alendronate 70 mg tablet (Fosamax) 70 mg PO QWEEK 12 weeks #12 tabs 12/09/23 aspirin 81 mg tablet,delayed 81 mg PO BID 30 days #60 tabs 12/09/23 release (Adult Low Dose Aspirin) cefadroxil 500 mg capsule 500 mg PO BID 7 days #14 caps 12/09/23 cholecalciferol (vitamin D3) 125 125 mcg PO DAILY 90 days #90 caps 12/09/23 mcg (5,000 unit) capsule ondansetron 4 mg disintegrating 4 mg PO Q8H PRN nausea and 12/09/23 tablet vomiting 5 days #15 tabs oxycodone-acetaminophen 5 mg-325 1 tab PO Q6H PRN pain 7 days #28 12/09/23 mg tablet (Percocet) tabs sennosides 8.6 mg tablet (Senna 8.6 mg PO DAILY PRN constipation 7 12/09/23 Laxative) days #7 tabs tizanidine 2 mg tablet 2 mg PO TID PRN muscle spasticity 12/09/23 7 days #21 tabs ondansetron HCl 4 mg tablet 4 mg PO Q6H PRN nausea and 06/15/24 vomiting #12 tabs hydrocodone 5 mg-acetaminophen 325 1 tab PO Q8H PRN pain 3 days #8 10/29/24 mg tablet tabs prednisone 20 mg tablet 20 mg PO DAILY 5 days #5 tabs 10/29/24 azithromycin 250 mg tablet See Rx Instructions PO .COMPLEX #6 05/12/25 (Zithromax) tabs Allergies Allergy/AdvReac Type Severity Reaction Status Date / Time adhesive tape Allergy Severe Rash Verified 12/10/24 12:01 povidone-iodine (From Allergy Rash Verified 12/10/24 12:01 Betadine) codeine AdvReac Vomiting Verified 12/10/24 12:01 Opioid HPI Opioid Management Most Recent Opioid Data: Last Pain Scale 4 05/11/25, 17:41 Last Pain Intensity 8 12/09/23, 08:14 Review of Systems ROS Status of ROS 10 or more systems reviewed and unremarkable except as noted in history and below [facility] Medical History (Updated 05/12/25 @ 13:56 by Bryan Welch NP) Stress incontinence ?N39.3 - Stress incontinence (female) (male) (ICD-10) Hallux valgus ?M20.10 - Hallux valgus (acquired), unspecified foot (ICD-10) Strain of right peroneal muscle or tendon ?S86.311A - Strain of muscle(s) and tendon(s) of peroneal muscle group at lower leg level, right leg, initial encounter (ICD-10) 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 - Congenital deformity of feet, unspecified, unspecified foot (ICD-10) 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 - Other congenital varus deformities of feet, unspecified foot (ICD-10) Equinus contracture of right ankle ?M24.571 - Contracture, right ankle (ICD-10) Osteoarthritis of right ankle and foot ?M19.071 - Primary osteoarthritis, right ankle and foot (ICD-10) Eversion deformity of right foot ?M21.071 - Valgus deformity, not elsewhere classified, right ankle (ICD-10) Posterior tibial tendon dysfunction ?M76.829 - Posterior tibial tendinitis, unspecified leg (ICD-10) Insomnia ?G47.00 - Insomnia, unspecified (ICD-10) Depression ?F32.A - Depression, unspecified (ICD-10) Anxiety ?F41.9 - Anxiety disorder, unspecified (ICD-10) COVID-19 ?U07.1 - COVID-19 (ICD-10) Migraine ?G43.909 - Migraine, unspecified, not intractable, without status migrainosus (ICD-10) Kidney stones ?N20.0 - Calculus of kidney (ICD-10) Seasonal allergies ?J30.2 - Other seasonal allergic rhinitis (ICD-10) Heartburn ?R12 - Heartburn (ICD-10) IBS (irritable bowel syndrome) ?K58.9 - Irritable bowel syndrome without diarrhea (ICD-10) Encounter for removal of skin lesion ?L98.9 - Disorder of the skin and subcutaneous tissue, unspecified (ICD-10) Surgical History (Updated 12/09/23 @ 09:51 by Marleni Butler NP) History of wisdom tooth extraction ?K08.409 - Partial loss of teeth, unspecified cause, unspecified class (ICD-10) History of colonoscopy ?Z98.890 - Other specified postprocedural states (ICD-10) History of esophagogastroduodenoscopy (EGD) ?Z98.890 - Other specified postprocedural states (ICD-10) H/O sinus surgery ?Z98.890 - Other specified postprocedural states (ICD-10) History of nasal septoplasty ?Z98.890 - Other specified postprocedural states (ICD-10) H/O lumpectomy ?Z98.890 - Other specified postprocedural states (ICD-10) History of endometrial ablation ?Z98.890 - Other specified postprocedural states (ICD-10) History of dilation and curettage ?Z98.890 - Other specified postprocedural states (ICD-10) History of cholecystectomy ?Z90.49 - Acquired absence of other specified parts of digestive tract (ICD-10) History of tonsillectomy ?Z90.89 - Acquired absence of other organs (ICD-10) History of hysterectomy ?Z90.710 - Acquired absence of both cervix and uterus (ICD-10) History of foot surgery (2018) ?Z98.890 - Other specified postprocedural states (ICD-10) History of foot surgery (03/02/21) ?Z98.890 - Other specified postprocedural states (ICD-10) Family History (Updated 11/28/23 @ 09:29 by Tina Chen NP) Other Family history of cervical cancer Family history of diabetes mellitus Family history of hypertension Family history of lung cancer Family history of myocardial infarction Family history of ovarian cancer Social History (Updated 11/28/23 @ 09:20 by Tina Chen NP) Within the past year, how often did you have a drink containing alcohol: never Score interpretation: A score less than 3 is consistent with normal alcohol consumption. 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 @ [employer] Highest level of school completed/degree received: Associate degree: occupational, technical, vocational program Little interest or pleasure in doing things: not at all Feeling down, depressed, or hopeless: not at all Exam Narrative Exam Narrative: Constituational: Awake/ alert, no apparent distress, well hydrated HENMT: normocephalic, external ears normal, moist oral mucous membranes and oropharynx normal Eyes: EOMI and conjunctivae normal Neck: ROM intact Chest: inspection of chest normal Respiratory: + Intermittent/mild congested cough, normal respiratory effort, clear to auscultation bilaterally Cardio: regular rate and regular rhythm GI: soft to palpation and non-tender Back: nontender MSK: ROM intact, +NVI Skin: no rashes or petechiae Neuro: no focal deficits Psych: mental status grossly normal Constitutional Vital Signs, click to edit/add: Last Vital Signs Temp 98.1 F 05/12/25 12:32 Pulse 90 05/12/25 12:32 Resp 18 05/12/25 12:32 BP 137/88 05/12/25 12:32 Pulse Ox 97 05/12/25 12:32 O2 Del Method Room Air 05/12/25 12:32 Course Vital Signs Vital signs: Vital Signs Temperature 98.1 F 05/12/25 12:32 Pulse Rate 90 05/12/25 12:32 Respiratory Rate 18 05/12/25 12:32 Blood Pressure 137/88 05/12/25 12:32 Pulse Oximetry 97 05/12/25 12:32 Oxygen Delivery Method Room Air 05/12/25 12:32 Temperature 98.1 F 05/12/25 12:32 Pulse Rate 90 05/12/25 12:32 Respiratory Rate 18 05/12/25 12:32 Blood Pressure 137/88 05/12/25 12:32 Pulse Oximetry 97 05/12/25 12:32 Oxygen Delivery Method Room Air 05/12/25 12:32 Medical Decision Making MDM Narrative Medical decision making narrative: Patient is a well-appearing 40-year-old female who presented to the emergency department today for evaluation concerns for cough/cold symptoms and generally feeling well. Initial examination patient with clinical evidence consistent with URI as evidenced by a mild intermittent congested cough. Chest x-ray does show right upper lobe pneumonia. Historically patient had been exposed to strep and mono 2 weeks ago through family member and subsequent strep test was negative. [place] spot negative. additionally viral testing for influenza and COVID-negative. Urinalysis is negative for UTI however there is noted bacteria present. Will hold off on antibiotics at this time as there is no leukocytes or nitrites. Will wait for urine culture antibiotic therapy if appropriate. Clinical impression pneumonia. Discussed these findings with the patient to include recommendations for supportive care. Advised on follow-up with patient's primary care provider for reevaluation. Discussed signs and symptoms of any worsening condition and when to consider reevaluation by the emergency department. Patient verbalized an understanding of this and is agreeable with the plan to be discharged home. Medical Records Medical records reviewed: Yes I reviewed the patient's medical records Lab Data Lab results reviewed: Yes I reviewed the patient's lab results Labs: Lab Results 05/12/25 05/12/25 05/12/25 Range/Units 12:40 13:45 13:58 Urine Color Yellow (YELLOW) Urine Clarity Clear (CLEAR) Urine pH 6.0 (5.0-9.0) Ur Specific [place] 1.025 (1.005-1.025) Urine Protein Negative (NEG/TRACE) mg/dL Urine Glucose (UA) Negative (NEGATIVE) mg/dL Urine Ketones Negative (NEGATIVE) mg/dL Urine Occult Blood Trace-l (NEGATIVE) Urine Nitrite Negative (NEGATIVE) Urine Bilirubin Negative (NEGATIVE) Urine Urobilinogen 0.2 (0.2-1.0) EU/dL Ur Leukocyte Esterase Negative (NEGATIVE) Urine RBC 0-2 (0-2) #/HPF Urine WBC 0-2 A (NONE SEEN) #/HPF Ur Squamous Epith Cells Moderate A (NONE/RARE) #/LPF Urine Crystals None seen (None Seen) #/HPF Urine Bacteria Small A (NONE SEEN) #/HPF Urine Casts None seen (NONE SEEN) #/LPF Urine Mucus Small A (NONE SEEN) Ur Culture Indicated? Yes-[facility] [place] Urine HCG, Qual Negative (NEGATIVE) Monoscreen Negative (NEGATIVE) Influenza Type A Ag Negative Influenza Type B Ag Negative SARS-CoV-2 Ag (CV2AG) Negative (NEGATIVE) Streptococcus Screen Negative Imaging Data Chest x-ray: Radiologist's impression: ITS Impressions Chest X-Ray 05/12/25 12:48 IMPRESSION: Findings suggest right upper lobe pneumonia. Impression dictated by: Yovani Arita M.D. 05/12/2025 1:51 PM Dictation Location: [place] [address] Electronically authenticated by: [id number] Y Date: 05/12/2025 13:51 Discharge Plan Discharge Chief Complaint: Upper Respiratory Infection Clinical Impression: Pneumonia Patient Disposition: Home, Self-Care Prescriptions / Home Meds: New azithromycin [Zithromax] 250 mg tablet See Rx Instructions .ROUTE .COMPLEX Qty: 6 0RF Rx Instructions: For 250 mg dose pack: take 500 mg today (day 1), then 250 mg for 4 days (days 2-5) No Action ondansetron HCl 4 mg tablet 4 mg PO Q6H PRN (Reason: nausea and vomiting) Qty: 12 0RF Vraylar 3 mg capsule 3 mg PO DAILY Acidophilus Capsule 100 mmu cells PO DAILY lamotrigine 100 mg tablet 100 mg PO DAILY meloxicam 15 mg tablet 15 mg PO DAILY propranolol 160 mg capsule,extended release 24 hr 160 mg PO Q24H rizatriptan 10 mg tablet 10 mg PO DAILY PRN (Reason: migraine headache) sertraline 100 mg tablet 100 mg PO BID trazodone 50 mg tablet 100 mg PO QPM PRN (Reason: sleep) cetirizine 10 mg tablet 10 mg PO DAILY PRN (Reason: allergy symptoms) aspirin [Adult Low Dose Aspirin] 81 mg tablet,delayed release (DR/EC) 81 mg PO BID 30 Days Qty: 60 0RF cefadroxil 500 mg capsule 500 mg PO BID 7 Days Qty: 14 0RF cholecalciferol (vitamin D3) 125 mcg (5,000 unit) capsule 125 mcg PO DAILY 90 Days Qty: 90 0RF alendronate [Fosamax] 70 mg tablet 70 mg PO QWEEK 84 Days Qty: 12 0RF oxycodone-acetaminophen [Percocet] 5-325 mg tablet 1 tab PO Q6H PRN (Reason: pain) 7 Days Qty: 28 0RF ondansetron 4 mg tablet,disintegrating 4 mg PO Q8H PRN (Reason: nausea and vomiting) 5 Days Qty: 15 0RF sennosides [Senna Laxative] 8.6 mg tablet 8.6 mg PO DAILY PRN (Reason: constipation) 7 Days Qty: 7 0RF tizanidine 2 mg tablet 2 mg PO TID PRN (Reason: muscle spasticity) 7 Days Qty: 21 0RF hydrocodone-acetaminophen 5-325 mg tablet 1 tab PO Q8H PRN (Reason: pain) 3 Days Qty: 8 0RF prednisone 20 mg tablet 20 mg PO DAILY 5 Days Qty: 5 0RF Print Language: Nepali Instructions: Community Acquired Pneumonia (DC) Additional Instructions: Take antibiotics as prescribed. May take Tylenol and ibuprofen as needed for any fevers or pain. Stay hydrated and push fluids. May use [id number] cough/cold medication such as Mucinex. Please up with your primary care provider for reevaluation as discussed. Referrals: DENNIS PEPPER PA [Primary Care Provider] - 1 week
[2025-05-12 13:02] LABS: SARS-CoV-2 Ag NEGATIVE (NEGATIVE)
[2025-05-12 14:05] LABS: Glucose Urine UA NEGATIVE (NEGATIVE)
[2025-05-12 14:06] LABS: HCG Qualitative Urine* NEGATIVE (NEGATIVE)
[2025-05-12 14:16] LABS: Cast Seen? NONE SEEN #/LPF (NONE SEEN); Crystals Seen? None Seen #/HPF (None Seen)
[2025-05-12 14:17] LABS: Urine Culture Indicated YES-FRMC
[2025-05-12 14:28] LABS: Mono Screen NEGATIVE (NEGATIVE)
== END 2025-05-12 14:42 | disposition home or self-care (01) ==
PROVIDERS: Nurse Practitioner; Emergency Provider Emergency Medicine
DX: J18.9 Pneumonia, unspecified organism (principal); F31.9 Bipolar disorder, unspecified; Z90.49 Acquired absence of other specified parts of digestive tract; Z90.710 Acquired absence of both cervix and uterus; R82.998 Other abnormal findings in urine
CPT/HCPCS: 71046; 81001; 84703; 86308; 87070; 87086; 87804; 87811; 87880; 99284